=== PATIENT | male | born 1955 | race Caucasian/White ===

== ENCOUNTER 2022-12-15 09:39 | Day surgery (SDC) | payer MEDICARE, OTHER, SELFPAY ==
--- NOTE | 2022-12-15 08:56 | W.PM.PROCNOT ---
Date of procedure: 12/15/22 Procedure: Right Lateral cutaneous branch Iliohypogastric nerve injection, diagnostic Preop diagnosis includes pain secondary to neuritis of the Right Lateral cutaneous branch middle cluneal nerves Postop diagnosis same Performed under fluoroscopic guidance Immediate complications none Anesthesia: none Solution used for injection: In each syringe, 2 milliliters 0.25% Marcaine 2.5 mL is used for injection for each side Time out process compliant After informed consent obtained patient was brought to the procedure room placed in the prone position skin overlying the area was prepped and draped in a sterile fashion using betadine. 25 gauge spinal needle Insert over each of the target areas identified in fluoroscopy corresponding needles were advanced Under fluoroscopic guidance until the target/targets encountered , no indication of intravascular or Intraneuronal needle tip placement. Solution injected .needles removed post procedurally. patient transferred to recovery room in stable condition to be discharged home after meeting criteria Surgeon: Agnieszka Ayoub
[2022-12-15] MEDS: BUPIVACAINE HCL 0.25% PF 25 MG/10 ML VIAL 4 ML INJ (11:05)
[2022-12-15 11:06] VITALS: BP 149/79; PULSE 84; RESP 20; O2SAT 96
[2022-12-15 11:07] VITALS: BP 151/88; PULSE 77; RESP 20; O2SAT 97
== END 2022-12-15 11:11 | disposition home or self-care (01) ==
LOC: SURGOUT 09:39
PROVIDERS: PCP Internal Medicine; Visit Provider Anesthesiology Pain Medicine
DX: G57.81 Other specified mononeuropathies of right lower limb (principal)
CPT/HCPCS: 64425; 77002

== ENCOUNTER 2022-12-22 14:47 | Outpatient (RCR) | payer MEDICARE, OTHER, SELFPAY | END 2023-01-30 11:44 | disposition home or self-care (01) | LOC: PT 14:47 | PROVIDERS: PCP Internal Medicine | DX: M54.16 Radiculopathy, lumbar region (principal) | CPT/HCPCS: 97012; 97110; 97113; 97162 ==

== ENCOUNTER 2023-01-07 08:05 | Outpatient (OUT) | payer MEDICARE, OTHER, SELFPAY ==
--- NOTE | 2023-01-07 08:33 | PM.CN ---
Consult Note: HPI Data of Consult Patient: known to practice within the last 3 years Consult date: 01/07/23 Requesting Physician: LATRICIA VOGEL NP Primary Care Provider: JOHNATHAN LÓPEZ Consult Narrative Narrative: Here for f/u of right LCIH injection done 12/15/22. He received 80% relief of pain for several hours after procedure. He would like to possibly proceed with RFA of same area. He has appointment with spine surgeon next week and would like to speak with him before proceeding with RFA. No radicular sx. He does have f/u with neurospine scheduled. No new sensorimotor or bowel or bladder issues. He feels he has bad circulation to his feet. Will give referral to cardiology for ISABELLA testing. cc:: CC: LATRICIA VOGEL NP Review of Systems ROS Status of ROS 10 or more systems reviewed and unremarkable except as noted in history and below Musculoskeletal Reports: back pain and joint pain PFSH PFS Medical History Surgical History Meds Home Medications and Allergies Home Medications Medication Instructions Recorded Confirmed Type ascorbic acid (vitamin C) 500 mg 500 mg PO DAILY 12/10/22 12/15/22 History tablet (C-500) bee pollen 550 mg capsule mg PO .QD 12/10/22 History carvedilol 6.25 mg tablet 6.25 mg PO BID 12/10/22 12/15/22 History cholecalciferol (vitamin D3) 10 10 mcg PO DAILY 12/10/22 12/15/22 History mcg (400 unit) capsule (Vitamin D3) finasteride 5 mg tablet 5 mg PO .QD 12/10/22 12/15/22 History hydrocodone 5 mg-acetaminophen 325 1 tab PO QID PRN pain 12/10/22 12/15/22 History mg tablet mecobalamin (vitamin B12) 1,000 1,000 mcg PO DAILY 12/10/22 12/15/22 History mcg chewable tablet (B12 Active) meloxicam 15 mg tablet 15 mg PO .QD 12/10/22 12/15/22 History multivitamin 1 tab PO DAILY 12/10/22 12/15/22 History sildenafil 100 mg tablet (Viagra) 100 mg PO DAILY PRN sexual activity 12/10/22 12/15/22 History solifenacin 10 mg tablet 10 mg PO DAILY 12/10/22 12/15/22 History tamsulosin 0.4 mg capsule 0.4 mg PO Q24H 12/10/22 12/15/22 History tizanidine 4 mg capsule 4 mg PO .HS PRN muscle spasticity 12/10/22 12/15/22 History vitamin B complex (Complex B-100 1 tab PO DAILY 12/10/22 12/15/22 History tablet,extended release) zinc 50 mg tablet 50 mg PO DAILY 12/10/22 12/15/22 History Allergies Allergy/AdvReac Type Severity Reaction Status Date / Time No Known Drug Allergies Allergy Verified 12/15/22 10:11 Exam Constitutional Documenting provider has reviewed patient's vital signs: yes Common normals: no apparent distress, oriented x3, healthy appearing, alert and well nourished Orientation/consciousness: Yes awake, Yes oriented to person, Yes oriented to place and Yes oriented to time HENMT Common normals: normocephalic, nasal mucous membranes and turbinates normal and moist oral mucous membranes Respiratory Common normals: normal respiratory effort, no retractions and no use of accessory muscles Effort & inspection: able to speak in complete sentences and symmetric chest movement Back & Pelvis Lumbar spine/lower back: normal to inspection, ROM limited and pain with ROM Extremity Common normals: normal to inspection, full ROM, normal capillary refill and no pedal edema Other: SI pain with positive thigh thrust, gaenslens Assessment and Plan Assessment and Plan (1) Sacroiliac joint pain: (2) Lumbar spondylosis: Plan He will call to schedule LCIH RFA if wanted F/U with neurospine as scheduled cardiology referral for ABIs
== END 2023-01-07 08:06 | disposition home or self-care (01) ==
LOC: PM 08:06
PROVIDERS: PCP Internal Medicine; Visit Provider Nurse Practitioner
DX: M53.3 Sacrococcygeal disorders, not elsewhere classified (principal); M47.816 Spondylosis without myelopathy or radiculopathy, lumbar region
CPT/HCPCS: G0463

== ENCOUNTER 2023-03-02 07:48 | Day surgery (SDC) | payer MEDICARE, OTHER, SELFPAY ==
[2023-03-02 08:20] VITALS: BP 122/78; PULSE 83; RESP 16; TEMP 36.8; O2SAT 95
[2023-03-02 09:08] VITALS: BP 131/68; PULSE 80; RESP 18; O2SAT 94
[2023-03-02] MEDS: BUPIVACAINE HCL 0.25% PF 25 MG/10 ML VIAL INJ (09:12)
[2023-03-02] MEDS: LIDOCAINE HCL 2% 400 MG/20 ML MDV 15 ML INJ (09:12)
[2023-03-02] MEDS: METHYLPREDNISOLONE ACETATE 40 MG/ML VIAL INJ (09:13)
[2023-03-02 09:14] VITALS: BP 126/66; PULSE 82; RESP 18; O2SAT 95
--- NOTE | 2023-03-02 10:18 | W.PM.PROCNOT ---
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 Post lesioning injection of 2 mL each of 0.25% Marcaine and 2% lidocaine with Depo-Medrol 40mg. 0.5 to 1 mL injected at each site Anesthesia local 2% lidocaine for Timeout process compliant After informed consent obtained. Patient brought to the procedure room placed in the prone position skin overlying the area was prepped and draped in a sterile fashion using betadine. 25 gauge needle was used to create a skin wheal over each of the targeted areas utilizing 2% lidocaine. A rhizotomy needle with a 10 mm active tip was inserted over each of the anesthetized areas and directed towards four different areas in the distribution of the lateral cutaneous branches of the iliohypogastric nerve, accomplished under fluoroscopic guidance. After encountering the same we had positive sensory stimulation, negative motor stimulation was noted. lesions were then created. Post lesioning, steroid solution was injected needles removed. Patient was transferred to recovery room in stable condition to be discharged home after meeting criteria. Anesthesia: Local Surgeon: Agnieszka Ayoub Condition: stable
== END 2023-03-02 09:31 | disposition home or self-care (01) ==
PROVIDERS: PCP Internal Medicine; Visit Provider Anesthesiology Pain Medicine
DX: G57.81 Other specified mononeuropathies of right lower limb (principal)
CPT/HCPCS: 64640; 77002; J1030

== ENCOUNTER 2023-03-16 08:36 | Day surgery (SDC) | payer MEDICARE, OTHER, SELFPAY ==
[2023-03-16 09:24] VITALS: BP 160/88; PULSE 91; RESP 16; TEMP 36.9; O2SAT 96
[2023-03-16] MEDS: IOHEXOL 240 MG/ML - 10 ML VIAL INJ (10:35)
[2023-03-16] MEDS: BUPIVACAINE HCL 0.25% PF 25 MG/10 ML VIAL INJ (10:35)
[2023-03-16] MEDS: 0.9 % SODIUM CHLORIDE 10 ML SYRINGE - SALINE FLUSH INJ (10:35)
[2023-03-16] MEDS: LIDOCAINE HCL 2% PF 100 MG/5 ML VIAL INJ (10:36)
[2023-03-16] MEDS: METHYLPREDNISOLONE ACETATE 40 MG/ML VIAL INJ (10:36)
[2023-03-16 11:14] VITALS: BP 136/78; BP 146/76; PULSE 76; PULSE 78; RESP 20; O2SAT 95; O2SAT 97
--- NOTE | 2023-03-16 11:22 | W.PM.PROCNOT ---
Date of procedure: 03/16/23 Pre-op diagnosis: Hip Osteoarthritis Post-op diagnosis: same as pre-op Procedure: Procedure: Right Hip joint injection Pre & postoperative diagnosis: pain secondary to osteoarthritis. Immediate complications none. Anesthesia: 2% lidocaine plain for skin wheal. After informed consent was obtained, patient brought to the OR placed in the supine position. Skin overlying the area was prepped and draped using betadine. 25-gauge 1/2 inch needle was used for skin wheal over the medial aspect of the joint identified under fluoroscopy. Omnipaque dye was used to confirm needle tip placement within the hip joint space 0.5 mL use of the injection. Subsequently Depomedrol 40mg and Marcaine 0.25% 4ml was injected into the space. No indication of intravascular or intraneuronal needle tip placement or injection was noted post procedure. The needle was removed, patient transferred to Recovery room in stable condition to discharged home after meeting criteria. Anesthesia: Local Surgeon: Agnieszka Ayoub Condition: stable
== END 2023-03-16 10:40 | disposition home or self-care (01) ==
LOC: SURGOUT 08:36
PROVIDERS: PCP Internal Medicine; Visit Provider Anesthesiology Pain Medicine
DX: M16.11 Unilateral primary osteoarthritis, right hip (principal)
CPT/HCPCS: 20610; 77002; J1030; Q9966

== ENCOUNTER 2023-04-14 08:15 | Outpatient (OUT) | payer MEDICARE, OTHER, SELFPAY ==
--- NOTE | 2023-04-14 08:38 | PM.CN ---
Consult Note: HPI Data of Consult Patient: known to practice within the last 3 years Requesting Physician: Kath Steiner NP Primary Care Provider: JOHNATHAN LÓPEZ Consult Narrative Reason for consult: F/u Narrative: Lawson Vela a pleasant 68 year old male presents for evaluation and management of Recently under went right Lateral cutaneous iliohypogastric nerve Radiofrequency ablation and right hip injection, reports Today rating pain /10 cc:: CC: Kath Steiner NP Review of Systems ROS Status of ROS 10 or more systems reviewed and unremarkable except as noted in history and below Musculoskeletal Reports: joint pain PFSH PFSH Medical History Surgical History Hx of appendectomy ?Z90.49 - Acquired absence of other specified parts of digestive tract (ICD-10) Meds Home Medications and Allergies Home Medications Medication Instructions Recorded Confirmed Type ascorbic acid (vitamin C) 500 mg 500 mg PO DAILY 12/10/22 03/16/23 History tablet (C-500) bee pollen 550 mg capsule mg PO .QD 12/10/22 History carvedilol 6.25 mg tablet 6.25 mg PO BID 12/10/22 03/16/23 History cholecalciferol (vitamin D3) 10 10 mcg PO DAILY 12/10/22 03/16/23 History mcg (400 unit) capsule (Vitamin D3) finasteride 5 mg tablet 5 mg PO .QD 12/10/22 03/16/23 History hydrocodone 5 mg-acetaminophen 325 1 tab PO QID PRN pain 12/10/22 03/16/23 History mg tablet mecobalamin (vitamin B12) 1,000 1,000 mcg PO DAILY 12/10/22 03/16/23 History mcg chewable tablet (B12 Active) meloxicam 15 mg tablet 15 mg PO .QD 12/10/22 03/16/23 History multivitamin 1 tab PO DAILY 12/10/22 03/16/23 History sildenafil 100 mg tablet (Viagra) 100 mg PO DAILY PRN sexual activity 12/10/22 03/16/23 History solifenacin 10 mg tablet 10 mg PO DAILY 12/10/22 03/16/23 History tamsulosin 0.4 mg capsule 0.4 mg PO Q24H 12/10/22 03/16/23 History tizanidine 4 mg capsule 4 mg PO .HS PRN muscle spasticity 12/10/22 03/16/23 History vitamin B complex (Complex B-100 1 tab PO DAILY 12/10/22 03/16/23 History tablet,extended release) zinc 50 mg tablet 50 mg PO DAILY 12/10/22 03/16/23 History Allergies Allergy/AdvReac Type Severity Reaction Status Date / Time No Known Drug Allergies Allergy Verified 03/16/23 09:27 Exam Constitutional Documenting provider has reviewed patient's vital signs: yes Common normals: no apparent distress, oriented x3, healthy appearing, alert and well nourished General appearance: cooperative HENMT Common normals: normocephalic, hearing grossly normal bilaterally and moist oral mucous membranes Head and scalp: normocephalic Eye Common normals: PERRL Pupil: PERRL Neck & C-Spine Common normals: full ROM General: normal visual inspection Chest Common normals: inspection of chest normal Respiratory Common normals: normal respiratory effort, no retractions and no use of accessory muscles Neuro Common normals: oriented x3, CN's II-XII intact bilaterally, moves all extremities, no focal motor deficits, no sensory deficits noted and deep tendon reflexes 2+ bilaterally Sensorium/orientation: alert Motor exam: strength 5/5 throughout and no movement abnormalities noted Psych Common normals: mental status grossly normal, thought process normal, cooperative, affect normal, speech normal and activity/motor behavior normal Speech: normal speech Thought process: normal thought process Results Additional Findings Additional findings: I have checked an [place] report on this patient today and there are no aberrancies noted in the prescribing history.?? A drug screen was completed and reviewed within the last year, and if there has not been a drug screen completed we ordered one today to monitor higher risk, state monitored pain medication use. As part of providing excellent, safe, comprehensive care, the following was completed at our patient's visit: 1. A medication reconciliation and review to ensure accurate knowledge of current/active medications, including asking our patients to inform us about any [id number] medications or herbal remedies/nutritional supplements/alternative remedies. 2. A review to specifically ensure our patients have had annual screening for: elevated body mass index (BMI), tobacco use, screening for depression, and screening for unhealthy alcohol use. When screening is concerning, patients are provided with education and the specific recommendation to discuss the concerning health issue and treatment options with their primary care provider. Assessment and Plan Assessment and Plan (1) Lumbar spondylosis: (2) Sacroiliac joint pain: (3) Right hip pain: (4) Osteoarthritis: (5) Low back pain:
--- NOTE | 2023-04-14 09:03 | P.CN_ITS ---
Consult Note: HPI Data of Consult Patient: known to practice within the last 3 years Requesting Physician: Kath Steiner NP Primary Care Provider: JOHNATHAN LÓPEZ Consult Narrative Reason for consult: f/u Narrative: Lawson martin a pleasant 68 year old male presents for evaluation of chronic low back, right buttock and right leg pain. Today rating pain 2/10. Reports 10% improvement in pain and functional ability after right LCIH RFA and right hip injection. Patient has been following with Neurosurgery Dr Anand and [facility], pending appointment with Orthopedics for right hip pain. cc:: CC: Kath Steiner NP [facility] Medical History Surgical History Hx of appendectomy ?Z90.49 - Acquired absence of other specified parts of digestive tract (ICD- 10) Meds Home Medications and Allergies Home Medications Medication Instructions Recorded Confirmed Type ascorbic acid (vitamin C) 500 mg 500 mg PO DAILY 12/10/22 03/16/23 History tablet (C-500) bee pollen 550 mg capsule mg PO .QD 12/10/22 History carvedilol 6.25 mg tablet 6.25 mg PO BID 12/10/22 03/16/23 History cholecalciferol (vitamin D3) 10 10 mcg PO DAILY 12/10/22 03/16/23 History mcg (400 unit) capsule (Vitamin D3) finasteride 5 mg tablet 5 mg PO .QD 12/10/22 03/16/23 History hydrocodone 5 mg-acetaminophen 325 1 tab PO QID PRN pain 12/10/22 03/16/23 History mg tablet mecobalamin (vitamin B12) 1,000 1,000 mcg PO DAILY 12/10/22 03/16/23 History mcg chewable tablet (B12 Active) meloxicam 15 mg tablet 15 mg PO .QD 12/10/22 03/16/23 History multivitamin 1 tab PO DAILY 12/10/22 03/16/23 History sildenafil 100 mg tablet (Viagra) 100 mg PO DAILY PRN sexual activity 12/10/22 03/16/23 History solifenacin 10 mg tablet 10 mg PO DAILY 12/10/22 03/16/23 History tamsulosin 0.4 mg capsule 0.4 mg PO Q24H 12/10/22 03/16/23 History tizanidine 4 mg capsule 4 mg PO .HS PRN muscle spasticity 12/10/22 03/16/23 History vitamin B complex (Complex B-100 1 tab PO DAILY 12/10/22 03/16/23 History tablet,extended release) zinc 50 mg tablet 50 mg PO DAILY 12/10/22 03/16/23 History Allergies Allergy/AdvReac Type Severity Reaction Status Date / Time No Known Drug Allergies Allergy Verified 03/16/23 09:27 Exam Constitutional Documenting provider has reviewed patient's vital signs: yes Common normals: no apparent distress, oriented x3, healthy appearing, alert and well nourished General appearance: cooperative Nutritional appearance: obese HENMT Common normals: normocephalic, hearing grossly normal bilaterally and moist oral mucous membranes Head and scalp: normocephalic Eye Common normals: PERRL Pupil: PERRL Neck & C-Spine Common normals: full ROM General: normal visual inspection Chest Common normals: inspection of chest normal Respiratory Common normals: normal respiratory effort, no retractions and no use of accessory muscles Back & Pelvis Thoracic spine/upper back: ROM limited and pain with ROM Lumbar spine/lower back: ROM limited and pain with ROM Sacroiliac joints: SI joint(s) abnormal (pain over left SIJ) Other: radiculopathy or neuritis to right thigh following L2,3,4 pattern. Extremity Common normals: normal to inspection and full ROM Right lower extremity: hip joint Other: right hip pain with external rotation and thigh thrust, tenderness over IT band mild non pitting edema to right foot and lower leg, chronic rust color to BLE. pulses equal bilaterally. denies symptoms if IC Neuro Common normals: oriented x3, CN's II-XII intact bilaterally, moves all extremities, no focal motor deficits, no sensory deficits noted and deep tendon reflexes 2+ bilaterally Sensorium/orientation: alert Motor exam: strength 5/5 throughout and no movement abnormalities noted Psych Common normals: mental status grossly normal, thought process normal, cooperative, affect normal, speech normal and activity/motor behavior normal Speech: normal speech Thought process: normal thought process Assessment and Plan Assessment and Plan (1) Lumbar spondylosis: (2) Sacroiliac joint pain: (3) Right hip pain: (4) Osteoarthritis: (5) Low back pain: Plan -unfortunately patient reports 10% pain relief in right buttock and right hip after right LCIH RFA and right hip injection, based on physical exam patient does have a hip component and will benefit from orthopedic evaluation. -consider repeat lumbar JEN in the future if not pursuing spinal surgery, at this time patient may have a fusion in May with [facility] -continue f/u with NS and orthopedics for right hip -continue medication management through PCP, declining additional medications at this time -f/u 3 months, sooner if needed
== END 2023-04-14 08:16 | disposition home or self-care (01) ==
LOC: PM 08:15
PROVIDERS: PCP Internal Medicine; Visit Provider Nurse Practitioner
DX: M47.816 Spondylosis without myelopathy or radiculopathy, lumbar region (principal); M25.551 Pain in right hip; M54.50 Low back pain, unspecified; M19.90 Unspecified osteoarthritis, unspecified site; M53.3 Sacrococcygeal disorders, not elsewhere classified
CPT/HCPCS: G0463

== ENCOUNTER 2023-06-26 12:24 | Emergency (ER) | payer MEDICARE, OTHER, SELFPAY ==
[2023-06-26 12:32] VITALS: BP 156/99; PULSE 96; RESP 18; TEMP 36.8; O2SAT 97; BMI 25.7
--- NOTE | 2023-06-26 12:39 | XR_ITS ---
The [address] [address] Patient Name: CANDACE WILKS MRN: [id number] date: 1955 Sex: M Assigned Patient Location: ER Current Patient Location: ER Accession/Order Number: [id number] Exam Date: 06/26/2023 13:10 Report Date: 06/26/2023 14:30 At the request of: HEATH JOHANSEN Procedure: XR finger LT min 2V EXAM: XR finger LT min 2V HISTORY: Crush injury COMPARISON: None. TECHNIQUE: 3 cone-down views of the left hand, third digit. FINDINGS: Bandage material is seen along the third digit with localized soft tissue swelling at the level of the DIP joint. No acute fracture is identified. No radiopaque foreign body is seen. XR/XR finger LT min 2V IMPRESSION: 1. No acute osseous variation identified. 2. No radiopaque foreign body. Electronically authenticated by: SARAHY ROSA Date: 06/26/2023 14:30
--- OUTSIDE RECORDS SUMMARY | 2023-06-26 13:24 | XMS_ITS | CCD ---
Author Name Unknown Address [address] [place] [address] Organization [facility] Care Team Providers Care Lumber Marker Name Role Phone JAVAD DONATO Primary Care Physician MARINE ., DR ANTIONE Fletcher Admitting Unavailable HAWTHORNE ., DR ANTIONE Fletcher Consulting Unavailable MARIBEL, DR MANN Primary Care Unavailable HAWTHORNE ., DR ANTIONE Fletcher Attending Unavailable GUERRA ., MELISSA Consulting Unavailable HAWTHORNE ., DR ANTIONE Fletcher Attending Unavailable HAWTHORNE ., DR ANTIONE Fletcher Admitting Unavailable HAWTHORNE ., DR ANTIONE Fletcher Consulting Unavailable MARIBEL, DR MANN Primary Care Unavailable HAWTHORNE ., DR ANTIONE Fletcher Attending Unavailable HAWTHORNE ., DR ANTIONE Fletcher Admitting Unavailable HAWTHORNE ., DR ANTIONE Fletcher Consulting Unavailable MARIBEL, DR MANN Primary Care Unavailable HAWTHORNE ., DR ANTIONE Fletcher Attending Unavailable HAWTHORNE ., DR ANTIONE Fletcher Admitting Unavailable HAWTHORNE ., DR ANTIONE Fletcher Consulting Unavailable MARIBEL, DR MANN Primary Care Unavailable HAWTHORNE ., DR ANTIONE Fletcher Attending Unavailable HAWTHORNE ., DR ANTIONE Fletcher Admitting Unavailable MARIBEL, DR MANN Primary Care Unavailable GUERRA ., MELISSA Consulting Unavailable HAWTHORNE ., DR ANTIONE Fletcher Attending Unavailable HAWTHORNE ., DR ANTIONE Fletcher Admitting Unavailable GUERRA ., MELISSA Consulting Unavailable MARIBEL, DR MANN Primary Care Unavailable HAWTHORNE ., DR ANTIONE Fletcher Attending Unavailable HAWTHORNE ., DR ANTIONE Fletcher Admitting Unavailable HAWTHORNE ., DR ANTIONE Fletcher Consulting Unavailable MARIBEL, DR MANN Primary Care Unavailable MARIBEL, DR MANN Primary Care Unavailable MARIBEL, DR MANN Attending Unavailable MARIBEL, DR MANN Admitting Unavailable LAKSHMIPATHY ., JUN Attending Peyton vailable MARIBEL, DR MANN Primary Care Unavailable RA, DR DEVIN Novak Consulting Unavailable LAKSHMIPATHY ., JUN Admitting Peyton vailable LAKSHMIPATHY ., NARENDRANATH Consulting Peyton vailable HAWTHORNE ., DR ANTIONE Fletcher Admitting Unavailable HAWTHORNE ., DR ANTIONE lFetcher Consulting Unavailable HAWTHORNE ., DR ANTIONE Fletcher Attending Unavailable MARIBEL, DR MANN Primary Care Unavailable HAWTHORNE ., DR ANTIONE Fletcher Attending Unavailable HAWTHORNE ., DR ANTIONE Fletcher Admitting Unavailable HAWTHORNE ., DR ANTIONE Fletcher Consulting Unavailable MARIBEL, DR MANN Primary Care Unavailable LAKSHMIPATHY ., NARENDRANPRASHANT Consulting Peyton vailable LAKSHMIPATHY ., NARSALLYATH Attending Peyton vailable LAKSHMIPATHY ., NARSALLYATH Admitting Peyton vailable MARIBEL, DR MANN Primary Care Unavailable LAKSHMIPATHY ., JUN Consulting Peyton vailable LAKSHMIPATHY ., JUN Attending Peyton vailable MARIBEL, DR MANN Primary Care Unavailable LAKSHMIPATHY ., NARENDDERIANATH Admitting Peyton vailable LAKSHMIPATHY ., NARENDDERIANATH Admitting Peyton vailable LAKSHMIPATHY ., NARSALLYATH Consulting Peyton vailable LAKSHMIPATHY ., JUN Attending Peyton vailable MARIBEL, DR MANN Primary Care Unavailable HAWTHORNE ., DR ANTIONE Fletcher Attending Unavailable HAWTHORNE ., DR ANTIONE Fletcher Admitting Unavailable HAWTHORNE ., DR ANTIONE Fletcher Consulting Unavailable MARIBEL, DR MANN Primary Care Unavailable JAVAD SAINI Consulting Unavailable CAMILLE BAILEY Consulting Unavailable Erica Xiong Unavailable SIMNOA Donato Primary Care Provider ANGELA Xiong Attending Provider Erica Xiong Admitting Unavailable Erica Xiong Attending Unavailable Javad Donato Primary Care Unavailable Mac BOYER Attending Unavailable Mac BOYER Attending Unavailable Mac BOYER Attending Unavailable Unavailable Primary Care Provider UnavailLAILA Cardenas Attending Unavailable JAVAD DONATO Attending Unavailable CLAUDINE HOUSE Attending Unavailable CHARISSA ARRINGTON Referring Unavailable CHARISSA ARRINGTON Attending Unavailable CHARISSA ARRINGTON Referring Unavailable Medications Current Medications Medication Drug Class(es) Dates Sig (Normalized) Sig (Original) Ascorbic Acid (2 sources) Vitamin C Start: 02-16-2022 Vitamin C Daily, Refills(s) 0 Start Date: 02/16/22 Status: Ordered betamethasone 0.5 mg/ml / clotrimazole 10 mg/ml topical cream (2 sources) Azole Antifungal, Corticosteroid Start: 06-14-2020 Lotrisone 0.05%-1% Cream Topical, BID, Refill(s) 0 Start Date: 06/14/20 Status: Ordered clindamycin 300 mg oral capsule (2 sources) Lincosamide Antibacterial Start: 12-17-2016 take 2 capsules by mouth every eight hours Start: 12-17-2016 take 2 capsules by mouth every eight hours Diflucan (2 sources) Azole Antifungal Start: 06-14-2020 Diflucan Refi lls(s) 0 Start Date: 06/14/20 Status: Ordered lidocaine 0.05 mg/mg medicated patch (2 sources) Antiarrhythmic, Amide Local Anesthetic Start: 12-17-2022 Start: 12-17-2022 Lidocaine 5 % 1 patch remove after 12 hours Externally Once a day for 30 days Nov, Active meloxicam 15 mg oral tablet (5 sources) Nonsteroidal Anti-inflammatory Drug Start: 06-14-2020 take 1 mg by mouth once daily meloxicam 15 mg oral tablet mg tab(s), Oral, Daily, Refills(s) 0 Start Date: 06/14/20 Status: Ordered meloxicam (MOBIC ) 7.5 mg tablet Take 7.5 mg by mouth. 0 Active Comment on above: Take 7.5 mg by mouth . Multi Vitamin+ (2 sources) Start: 02-16-2022 Multi Vitamin+ Refill(s) 0 Start Date: 02/16/22 Status: Ordered predniSONE 10 mg oral tablet (2 sources) Start: 12-17-2022 Start: 12-17-2022 predniSONE 10 MG Take 3 tablets by mouth for 3 days then 2 tablets by mouth for 3 days then 1 tablet by mouth for 3 days Orally Once a day for 9 Nov, Active sildenafil 100 mg oral tablet (2 sources) Phosphodiesterase 5 Inhibitor take 1 tablet by mouth every twenty-four hours solifenacin succinate 10 mg oral tablet (5 sources) Cholinergic Muscarinic Antagonist Start: 09-30-2022 take 1 tablet by mouth every twenty-four hours Start: 11-25-2021 take 1 tablet by yvon once daily Vesicare 10 mg Tab 10 mg = 1 tab(s), Oral, Daily, # 30 tab(s), Refills(s) 9, Pharmacy: [facility] [id number], 186, cm, 08/18/21 11:16:00 EST, Height/Length Dosing, 122, kg, 08/18/21 11:16:00 EST, Weight Dosing Start Date: 11/25/21 Status: Ordered Comment on above: 1 (one) time each da y at the same time. vitamin B12 (2 sources) Vitamin B12 Start: 02-16-2022 Vitamin B12 Refills(s) 0 Start Date: 02/16/22 Status: Ordered Zinc (2 sources) Start: 02-16-2022 take 1 mg by mouth once daily Zinc mg, Oral, Daily, Refills(s) 0 Start Date: 02/16/22 Status: Ordered Completed/Discontinued Medications Medication Drug Class(es) Dates Sig (Normalized) Sig (Original) acetaminophen 325 mg / HYDROcodone bitartrate 5 mg oral tablet (3 sources) Opioid Agonist HYDROcodone-acet aminop hen (NORCO) 5-325 mg per tablet take 1 tablet by mouth every six hours take 1 tablet by mouth every six hours HYDROcodone-Acetaminophen 5-325 MG 1 tablet as needed Orally every 6 hrs Active cefTRIAXone (1 source) Cephalosporin Antibacterial Start: 12-17-2016 Rocephin 500 mg Nov, 500 mg finasteride 5 mg oral tablet (5 sources) 5-alpha Reductase Inhibitor Start: 06-24-2021 finasteride (PROSCAR) 5 mg tablet Take 5 mg by mouth. 0 07/29/2022 Active Comment on above: Take 5 mg by mouth. hydroCHLOROthiazide 12.5 mg / irbesartan 150 mg oral tablet (3 sources) Thiazide Diuretic, Angiotensin 2 Receptor Becca Start: 02-08-2023 Irbesartan-hydroCH LOROthiazide 150-12.5 mg per tablet Take by mouth. 0 02/08/2023 Active take 1 tablet by yvon th every twenty-four hours take 1 tablet by yvon th every twenty-four hours Irbesartan-hydroCHLOROthiazide 150-12.5 MG 1 tablet Orally Once a day Active Comment on above: Take by mouth. silver sulfADIAZINE 10 mg/ml topical cream (2 sources) Sulfonamide Antibacterial Start: 12-17-2016 Start: 12-17-2016 Silvadene 1 % 1 application to affected area Externally Once a day Nov, Not-Taking tadalafil 20 mg oral tablet (2 sources) Phosphodiesterase 5 Inhibitor Start: 06-17-2020 take 1 tablet by mouth every hour Cialis 20 mg Tab 20 mg = 1 tab(s), Oral, As Directed, take 1 tab i hour prior to sexual activity, # 30 tab(s), Refills(s) 3, Pharmacy: [id number], 186, cm, 06/17/20 14:49:00 EST, Height/Length Dosing, 122, kg, 06/17/20 14:49:00 EST, Weight Dosing Start Date: 06/17/20 Status: Ordered tamsulosin hydrochloride 0.4 mg oral capsule (5 sources) alpha-Adrenergic Becca Start: 06-30-2021 tamsulosin (FLOMAX) 0.4 mg Take 0.4 mg by mouth. 0 07/29/2022 Active Comment on above: Take 0.4 mg by mouth . tiZANidine 4 mg oral tablet (3 sources) Central alpha-2 Adrenergic Agonist Start: 04-03-2022 tiZANidine (ZANAFLEX) 4 mg tablet 1 tablet as needed Orally at bedtime for 30 days 0 04/03/2022 Active Comment on above: 1 tablet as needed O rally at bedtime for 30 days Problems Active Problems Problem Classification Problem Date Documented Date Episodic/Chronic Disorders of lipid metabolism (2 sources) Hyperlipidemia 06-17-2020 Chronic Essential hypertension (3 sources) Hypertensive disorder; Translations: [Essential (primary) hypertension] Onset: 08-13-2022 06-17-2020 Chronic Genitourinary symptoms and ill-defined conditions (6 sources) Urge incontinence; Translations: [Post-micturition incontinence ] Onset: 02-16-2022 Chronic Genitourinary symptoms and ill-defined conditions (4 sources) Increased frequency of urination; Translations: [Nocturia] 06-17-2020 Episodic Gout and other crystal arthropathies (2 sources) Gout 06-17-2020 Chronic Headache; including migraine (2 sources) Headache 06-17-2020 Episodic Hyperplasia of prostate (4 sources) Benign prostatic hypertrophy with outflow obstruction; Translations: [Benign prostatic hyperplasia with lower urinary tract symptoms] Onset: 02-16-2022 Chronic Osteoarthritis (5 sources) Arthritis; Translations: [Bilateral primary osteoarthritis of hip] Onset: 11-16-2022 06-17-2020 Chronic Other connective tissue disease (6 sources) Pain in right leg; Translations: [PAIN IN RIGHT LEG] Onset: 10-08-2022 Episodic Other injuries and conditions due to external causes (2 sources) Injury of head 06-17-2020 Episodic Other male genital disorders (4 sources) Male erectile dysfunction, unspecified; Translations: [Erectile dysfunction] Onset: 02-16-2022 Chronic Other nervous system disorders (5 sources) Other chronic pain; Translations: [OTHER CHRONIC PAIN] Onset: 10-14-2022 Chronic Other non-traumatic joint disorders (5 sources) Pain in left hip; Translations: [PAIN IN LEFT HIP] Onset: 11-13-2022 Episodic Other non-traumatic joint disorders (1 source) Pain in right hip; Translations: [PAIN IN RIGHT HIP] Onset: 11-25-2022 Episodic Other nutritional; endocrine; and metabolic disorders (1 source) Obese class II; Translations: [Body mass index (BMI) 35.0-35.9, adult] Onset: 02-16-2022 Chronic Other nutritional; endocrine; and metabolic disorders (4 sources) Body mass index 30+ - obesity; Translations: [Body mass index (BMI) 38.0-38.9, adult] 02-16-2022 Chronic Other nutritional; endocrine; and metabolic disorders (2 sources) Body mass index (BMI) 38.0-38.9, adult Chronic Screening and history of mental health and substance abuse codes (2 sources) Encounter for screening for depression Episodic Spondylosis; intervertebral disc disorders; other back problems (10 sources) Spondylosis without myelopathy or radiculopathy, lumbar region; Translations: [Other intervertebral disc degeneration, lumbar region] Onset: 04-28-2022 Chronic Spondylosis; intervertebral disc disorders; other back problems (14 sources) Muscle spasm of back; Translations: [Radiculopathy, lumbar region] Onset: 05-01-2022 Episodic Unclassified (4 sources) LOW BACK PAIN, UNSPECIFIED; Translations: [LOW BACK PAIN, UNSPECIFIED] Onset: 07-27-2022 Unclassified (1 source) VERTEBROGENIC LOW BACK PAIN; Translations: [VERTEBROGENIC LOW BACK PAIN] Onset: 05-23-2022 Past or Other Problems Problem Classification Problem Date Documented Da te Episodic/Chronic Unclassified (1 source) LOW BACK PAIN, UNSPECIFIED; Translations: [LOW BACK PAIN, UNSPECIFIED] Onset: 07-23-2022 Results Test Name Value Interpretation Reference Range Facility OV 04-13-2023 CNOV Office Visit ([facility] ) -------- LAWSON VELA ([id number]) 1955 M DEF Date Time Provider Department 04/13/23 11:00 AM LAILA PAN [facility] During your visit today, we recorded the following information about you: Laila Pan PA-C 04/15/2023 1:53 PM Signed SPINE SURGERY OUTPATIENT CONSULT This is an in-person visit. SERVICE DATE: 04/13/2023 PCP: No primary care provider on file. REFERRING PROVIDER: SELF Consult requested for an opinion regarding the evaluation and treatment of lumbar spine. My final impression and recommendations will be communicated back to the requesting physician by way of the shared medical record or letter via US mail. SUBJECTIVE Lawson Vela is a 68 year old male presenting DIL. HISTORY OF PRESENT ILLNESS DURATION OF SYMPTOMS: . Industrial accident. No surgery, had injections and injections which helped. On and off since then. 14 months ago, he was leaning forward and felt sever back pain that was not resolved with normal techniques Patient reports low back pain described as aching to crampin in right low back. Radiation: Right buttocks- Right medial thigh Numbness/Tingling: no Weakness: Right hip flexors Gait Difficulty/LOB: yes Falling: Yes- LOB, feels like give out Loss of Bowel or Bladder: BPH, chronic concerns Smoking Status: No, quit smoking 1975 BMI: 33.51 PAIN EVALUATION 04/13/2023 0843 04/13/2023 1102 Pain Level: 3 3 Pain Location: Leg-Right Back-Lower down his right side behind his thigh Description: Stabbing Sharp;Throbbing;Aching;B urning Duration Amount of Time: 40 1 Duration Units: Months Years Frequency: Continuous Continuous gets worse when he walks or stands for long Intervention/Comfort measure: Medication;Reposition;Re laxation;Cold;Exercise;H eat;Massage;Pillow support;Positioning -- Comments: Pain management; steroid injections has been pain manegment but is not seeing any changes in the pain AMBULATORY STATUS: Independent Community Distances ANTIPLATELET OR ANTICOAGULATION STATUS: No PREVIOUS CONSERVATIVE TREATMENTS: See below Aquatic Therapy: 3 months ago which helped, will start it again. 3 days a week. 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 Injections: RFAs-helped with left leg Intraarticular hip injection-caused patient to jump off table, did reduce pain minimally PREVIOUS SPINAL SURGERY: None There is no problem list on file for this patient. No past medical history on file. PAST SURGICAL HISTORY Procedure Laterality Date APPENDECTOMY REVISE MEDIAN N/CARPAL TUNNEL SURG Right VASECTOMY No family history on file. Social History Tobacco Use Smoking status: Former Types: Cigarettes ALLERGIES No Known Allergies MEDICATIONS: tamsulosin (FLOMAX) 0.4 mg Take 0.4 mg by mouth. finasteride (PROSCAR) 5 mg tablet Take 5 mg by mouth. solifenacin 10 mg tablet 1 (one) time each day at the same time. tiZANidine (ZANAFLEX) 4 mg tablet 1 tablet as needed Orally at bedtime for 30 days Irbesartan-hydroCHLOROth iazide 150-12.5 mg per tablet Take by mouth. meloxicam (MOBIC) 7.5 mg tablet Take 7.5 mg by mouth. HYDROcodone-acetaminophe n (NORCO) 5-325 mg per tablet REVIEW OF SYSTEMS: Review of Systems Constitutional: Negative Eyes: Negative Hent: Negative Cardiovascular Positive for Lightheadedness and Leg pain with walking Negative for Chest Pain Respiratory Positive for SOB with exertion Negative for SOB at rest, Cough, Wheezing and Snoring GI: Negative Positive for Urgency and Incontinence Musculoskeletal Positive for Back Pain and Muscle Pain Neurologic Positive for Numbness/Tingling and Weakness Patient's Review of Systems has been reviewed with the patient and updated as appropriate. Patient Entered Questionnaires Spine Questions 04/13/2023 Pain Location: Leg Pain Duration: More than 5 years Pain over last 6 months: Every day or nearly every day in the past 6 months Symptoms from neck/cervical spine: No Employment Status: Retired Involved in law suit/legal claim: No PROMIS Score Percentiles Physical Health 04/13/2023 Physical Function Percentile 8 Sleep Percentile 8 Fatigue Percentile 1 Pain Interference Percentile 2 PROMIS SOCIAL ROLE SCORE 04/13/2023 Social Role Satisfaction Percentile 4 PROMIS Global Health Scale 04/13/2023 Physical Health Percentile 2 Mental Health Percentile 13 Percentiles provide an indication of how the patient's score ranks in relation to the general population. Higher percentile rankings indicate better function/quality of life. 50th percentile is the average of the general population and indicates half of respondents had a worse score. Depression Screening: PHQ-9 04/13/2023 Score 2 PHQ-9 Self-harm Question 1 (more content not included)... [facility] Ambulatory Visit Summaryon 0 02-08-2023 Ambulatory Visit Summary LAWSON VELA :1955 Visit Date:02/08/2023 Ambulatory Visit Instructions Your Diagnosis Urge incontinence BPH with urinary obstruction ED (erectile dysfunction) Tests Performed Urnls Dip Stick Auto w/o Microscopy POC [id number] Your Care Team Attending Physician - PAMELA BAER, Mac Stephenson Primary Care Physician - MARIBEL BAER, JAVAD Jiménez This Is Your Medications List finasteride (finasteride 5 mg Tab) solifenacin (Vesicare 10 mg Tab) tadalafil (Cialis 20 mg Tab) tamsulosin (tamsulosin 0.4 mg Cap) Contact prescribing physician if questions or concerns ascorbic acid (Vitamin C) betamethasone-clotrimazo le topical (Lotrisone 0.05%-1% Cream) cyanocobalamin (Vitamin B12) fluconazole (Diflucan) hydrochlorothiazide-irbe sartan (hydrochlorothiazide-irb esartan 12.5 mg-150 mg Tab) meloxicam (meloxicam 15 mg oral tablet) multivitamin (Multi Vitamin+) zinc sulfate (Zinc) Procedures Performed Urodynamics (04/22/2021), Cystoscopy (11/26/2020), Vasectomy (2009), Appendectomy (1966), Carpal tunnel, Colonoscopy. Discharge Vitals Heart Rate (Peripheral) 95 Blood Pressure 139/90 Height 186 cm Height 73 in Weight 129 kg Weight 283.8 lb BMI 37.29 What to do next You Need to Schedule the Following Appointments Follow Up with PAMELA BAER, FEROZ Lopez When: Comments: PRN Where: [facility] [address], [place] [address] [id number] Medications What How Much When Instructions Unchanged finasteride (finasteride 5 mg Tab) 1 Tablets By Mouth Every day Unchanged solifenacin (Vesicare 10 mg Tab) 1 Tablets By Mouth Every day Unchanged tadalafil (Cialis 20 mg Tab) 1 Tablets By Mouth As Directed take 1 tab i hour prior to sexual activity Unchanged tamsulosin (tamsulosin 0.4 mg Cap) 1 Capsules By Mouth 2 times a day Unchanged ascorbic acid (Vitamin C) Every day Contact prescribing physician if questions or concerns Unchanged betamethasone-clotrimazo le topical (Lotrisone 0.05%-1% Cream) Topical 2 times a day Contact prescribing physician if questions or concerns Unchanged cyanocobalamin (Vitamin B12) Contact prescribing physician if questions or concerns Unchanged fluconazole (Diflucan) Contact prescribing physician if questions or concerns Unchanged hydrochlorothiazide-irbe sartan (hydrochlorothiazide-irb esartan 12.5 mg-150 mg Tab) 1 Tablets By Mouth Every day Contact prescribing physician if questions or concerns Unchanged meloxicam (meloxicam 15 mg oral tablet) By Mouth Every day Contact prescribing physician if questions or concerns Unchanged multivitamin (Multi Vitamin+) Contact prescribing physician if questions or concerns Unchanged zinc sulfate (Zinc) By Mouth Every day Contact prescribing physician if questions or concerns Test Results Urnls Dip Stick Auto w/o Microscopy POC 48896 (02/08/2023) Bilirubin Urine Dipstick - Negative Blood Urine Dipstick - Negative Glucose Urine Dipstick - Negative Ketones Urine Dipstick - Negative Leukocytes Urine Dipstick - Negative Nitrite Urine Dipstick - Negative Protein Urine Dipstick - Negative Specific [place] Urine Dipstick - 1.010 Urine Appearance Urine Dipstick - Clear Urine Color Urine Dipstick - Yellow Urobilinogen Urine Dipstick - Normal 0.2-1 EU/dl pH Urine Dipstick - 5.5 Allergies No Known Allergies Problems Ongoing - Any problem that you are currently receiving treatment for. Arthritis BMI 35.0-35.9,adult BPH with urinary obstruction ED (erectile dysfunction) Gout Head injury Headache Hyperlipemia Hypertension Nocturia Post-void dribbling Urge incontinence Urinary frequency Education Materials Urinary Incontinence Urinary incontinence refers to a condition in which a person is unable to control where and when to pass urine. A person with this condition will urinate involuntarily. This means that the person urinates when he or she does not mean to. What are the causes? This condition may be caused by: ? Medicines. ? Infections. ? Constipation. ? Overactive bladder muscles. ? Weak bladder muscles. ? Weak pelvic floor muscles. These muscles provide support for the bladder, intestine, and, in women, the uterus. ? Enlarged prostate in men. The prostate is a gland near the bladder. When it gets too big, it can pinch the urethra. With the urethra blocked, the bladder can weaken and lose the ability to empty properly. ? Surgery. ? Emotional factors, such as anxiety, stress, or post-traumatic stress disorder (PTSD). ? Spinal cord injury, nerve injury, or other neurological conditions. ? Pelvic organ prolapse. This happens in women when organs move out of place and into the vagina. This movement can prevent the bladder and urethra from working properly. What increases the risk? The following factors may make you more likely to develop this condition: ? Age. The older you are, the high (more content not included)... Normal [facility] Patient Educationon 02-09-20 Patient Education Urology Urinary Incontinence Urinary incontinence refers to a condition in which a person is unable to control where and when to pass urine. A person with this condition will urinate involuntarily. This means that the person urinates when he or she does not mean to. What are the causes? This condition may be caused by: ? Medicines. ? Infections. ? Constipation. ? Overactive bladder muscles. ? Weak bladder muscles. ? Weak pelvic floor muscles. These muscles provide support for the bladder, intestine, and, in women, the uterus. ? Enlarged prostate in men. The prostate is a gland near the bladder. When it gets too big, it can pinch the urethra. With the urethra blocked, the bladder can weaken and lose the ability to empty properly. ? Surgery. ? Emotional factors, such as anxiety, stress, or post-traumatic stress disorder (PTSD). ? Spinal cord injury, nerve injury, or other neurological conditions. ? Pelvic organ prolapse. This happens in women when organs move out of place and into the vagina. This movement can prevent the bladder and urethra from working properly. What increases the risk? The following factors may make you more likely to develop this condition: ? Age. The older you are, the higher the risk. ? Obesity. ? Being physically inactive. ? and childbirth. ? Menopause. ? Diseases that affect the nerves or spinal cord. ? Long-term, or chronic, coughing. This can increase pressure on the bladder and pelvic floor muscles. What are the signs or symptoms? Symptoms may vary depending on the type of urinary incontinence you have. They include: ? A sudden urge to urinate, and passing urine involuntarily before you can get to a bathroom (urge incontinence). ? Suddenly passing urine when doing activities that force urine to pass, such as coughing, laughing, exercising, or sneezing (stress incontinence). ? Needing to urinate often but urinating only a small amount, or constantly dribbling urine (overflow incontinence). ? Urinating because you cannot get to the bathroom in time due to a physical disability, such as arthritis or injury, or due to a communication or thinking problem, such as Alzheimer's disease (functional incontinence). How is this diagnosed? This condition may be diagnosed based on: ? Your medical history. ? A physical exam. ? Tests, such as: ? Urine tests. ? X-rays of your kidney and bladder. ? Ultrasound. ? CT scan. ? Cystoscopy. In this procedure, a health care provider inserts a tube with a light and camera (cystoscope) through the urethra and into the bladder to check for problems. ? Urodynamic testing. These tests assess how well the bladder, urethra, and sphincter can store and release urine. There are different types of urodynamic tests, and they vary depending on what the test is measuring. To help diagnose your condition, your health care provider may recommend that you keep a log of when you urinate and how much you urinate. How is this treated? Treatment for this condition depends on the type of incontinence that you have and its cause. Treatment may include: ? Lifestyle changes, such as: ? Quitting smoking. ? Maintaining a healthy weight. ? Staying active. Try to get 150 minutes of moderate-intensity exercise every week. Ask your health care provider which activities are safe for you. ? Eating a healthy diet. ? Avoid high-fat foods, like fried foods. ? Avoid refined carbohydrates like white bread and white rice. ? Limit how much alcohol and caffeine you drink. ? Increase your fiber intake. Healthy sources of fiber include beans, whole grains, and fresh fruits and vegetables. ? Behavioral changes, such as: ? Pelvic floor muscle exercises. ? Bladder training, such as lengthening the amount of time between bathroom breaks, or using the bathroom at regular intervals. ? Using techniques to suppress bladder urges. This can include distraction techniques or controlled breathing exercises. ? Medicines, such as: ? Medicines to relax the bladder muscles and prevent bladder spasms. ? Medicines to help slow or prevent the growth of a man's prostate. ? Botox injections. These can help relax the bladder muscles. ? Treatments, such as: ? Using pulses of electricity to help change bladder reflexes (electrical nerve stimulation). ? For women, using a medical sales representative to prevent urine leaks. This is a small, tampon-like, disposable device that is inserted into the urethra. ? Injecting collagen or carbon beads (bulking agents) into the urinary sphincter. These can help thicken tissue and close the bladder opening. ? Surgery. Follow these instructions at home: Lifestyle ? Limit alcohol and caffeine. These can fill your bladder quickly and irritate it. ? Keep yourself clean to help prevent odors and skin damage. Ask your health care provider about special skin creams and cleansers that can protect the skin from urine. ? (more content not included)... Normal [facility] Urology Office/Clinic Noteon 02-08-2023 Urology Office/Clinic Note Chief Complaint 8 month follow up HPI Staff 8 month follow up w/no labs. Previous DX: BPH w/urinary obstruction, ED, nocturia, post void dribbling, urge incontinence, urinary frequency. S/P Urodynamics 04/22/21. * Tamsulosin 0.4mg BID, Finasteride 5mg qd, Tadalafil 20mg PRN, VESIcare 10mg qd.-pt states most symptoms has improved. Dysuria: denies pain or burning Incomplete bladder emptying: mild Hematuria: denies visible blood Frequency: denies Urgency: mild intermittent has gotten a lot better Nocturia: 1x a night, has improved before it was 6-7x a night Stream: occasionally has hesitancy, yes weak stream Leaking: denies, pt states it has gotten a lot better w/medication Post void dripping:yes Wearing pads/ Depends: denies Urge incontinence: denies Stress incontinence: denies Incontinence without Sensory Awareness: denies Abdominal pain: denies Flank pain: denies Sexual complaints: denies History of Present Illness Tests reviewed: reviewed UA I have reviewed the previous health record information and history for this patient from Dr. Boyer. I have reviewed and verified the staff HPI to be accurate for this encounter. There have been no associated fever, chills, flank pain, or blood in the urine. Denies any urinary infections since last encounter. Review of Systems PHQ Score Initial Depression Screen Score: 0 ROS - Provider Constitutional: denies weight loss, denies hot flashes. Eyes: denies eye problems. Gastrointestinal: denies nausea, denies vomiting. Cardiovascular: denies chest pain or angina. Integumentary: no dryness Musculoskeletal: denies musculoskeletal symptoms. ENMT: denies otolaryngeal symptoms. Respiratory: no shortness of breath. Heme/Lymph: denies easy bleeding tendency, denies easy bruising tendency. Psychiatric: no confusion, no anxiety. Genitourinary: See HPI. Physical Exam Vitals & Measurements HR: 95(Peripheral) BP: 139/90 HT: 73 in HT: 186 cm WT: 129 kg WT: 283.8 lb BMI: 37.29 General Appearance: alert, no distress, well nourished, well developed male. Genitourinary: normal scrotum, normal testes, normal urethra, normal epididymis, normal vas deferens/spermatic cord. Flank Pain: none. Bladder: nonpalpable. Assessment/Plan Pt has a growth on his left calf, which is likely basal cell carcinoma. 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 1. Urge incontinence (N39.41: Urge incontinence) Pt continues taking VESIcare 10mg QD [1]. Reports he does have some post void dribbling. Admits the urgency and nocturia continue to improve significantly. 2. BPH with urinary obstruction (N40.1: Benign prostatic hyperplasia with lower urinary tract symptoms) PSA (checked by PCP) 05/03/19 - 0.933 05/21/20 - 1.12 05/16/22 - 0.47 (Finasteride 0.94) Pt continues taking Tamsulosin 0.4mg BID and Finasteride 5mg QD [2]. Feels he does not always empty completely. Follow in one year. All questions/concerns were discussed. Pt to call the office if he encounters any issues prior. Pt acknowledges understanding. 3. ED (erectile dysfunction) (N52.9: Male erectile dysfunction, unspecified) Tadalafil 20mg PRN [3] Patient Education Urinary Incontinence I, Kaleigh Donato, personally scribed for Dr. Boyer on 02/08/2023 12:18:11. . Documentation recorded by the scribe, Kaleigh Donato, accurately reflects the services(s) I performed and decisions made by me. Authenticated by Dr. Boyer on 02/08/2023 12:21:20. Problem List/Past Medical History Ongoing Arthritis BMI 35.0-35.9,adult BPH with urinary obstruction ED (erectile dysfunction) Gout Head injury Headache Hyperlipemia Hypertension Nocturia Post-void dribbling Urge incontinence Urinary frequency Historical No qualifying data Procedure/Surgical History Urodynamics (04/22/2021), Cystoscopy (11/26/2020), Vasectomy (2009), Appendectomy (1966), Carpal tunnel, Colonoscopy. Medications Cialis 20 mg Tab, 20 mg= 1 tab(s), Oral, As Directed, 3 refills Diflucan finasteride 5 mg Tab, 5 mg= 1 tab(s), Oral, Daily, 3 refills hydrochlorothiazide-irbe sartan 12.5 mg-150 mg Tab, 1 tab(s), Oral, Daily Lotrisone 0.05%-1% Cream, Topical, BID meloxicam 15 mg oral tablet, Oral, Daily Multi Vitamin+ tamsulosin 0.4 mg Cap, 0.4 mg= 1 cap(s), Oral, BID, 11 refills Vesicare 10 mg Tab, 10 mg= 1 tab(s), Oral, Daily, 11 refills Vitamin B12 Vitamin C, Daily Zinc, Oral, Daily Allergies No Known Allergies Social History Tobacco Former smoker, quit more than 30 days ago Tobacco Use:. Never Smokeless Tobacco Use:. Cigarettes, Stopped age 27 Years., 02/08/2023 Family History Alcoholism: Mother. Arthritis: Grandparent. Asthma: Child. Congenital heart disease: Grandparent. Hyperlipidemia: Grandparent. Hypertension: Grandparent and Grandparent. Stroke: Grandparent. Immunizations Vaccine Date Status Comments influenza virus vaccine, inacti (more content not included)... Normal [facility] Comment on above: Result Comment: Electronically Signed By : Mac BOYER MD\.br\Date and Time Signed: 02/08/23 12:21 EDT\.br\Electronically Co-Signed By: Kaleigh Donato\.br\Date and Time Co-Signed: 02/08/23 12:18 EDT XR lumbar spine 6V w bending on 12-17-2022 XR lumbar spine 6V w bending [place] [address] XRay Report Signed Patient: Lawson Vela MR#: [id number] : 1955 Acct:[id number] Age/Sex: 67 / M ADM Date: 12/17/22 Loc: XD Room: Type: [facility] Attending Dr: Erica MILLER Copies to: ANGELA Khan Ordering Provider: ANGELA Khan Date of Service: 12/17/22 XR/XR lumbar spine 6V w bending: M54.16 LUMBAR SPINE - 6 views CLINICAL HISTORY: Right leg pain and numbness that radiates to toes COMPARISON: None FINDINGS: Vertebral body heights appear maintained. Diffuse endplate and facet joint degenerative changes. Mild diffuse disc space narrowing with relative sparing of L5-S1. No pathological motion on flexion or extension views. Limited sidebending. XR/XR lumbar spine 6V w bending IMPRESSION: DEGENERATIVE CHANGES OF THE LUMBAR SPINE WITH MILD DIFFUSE DISC SPACE NARROWING WITH RELATIVE SPARING OF L5-S1. Impression dictated by: Lenny Cobian Jr., D.O.12/17/2022 3:16 PM Dictation Location: [place] [address] Transcribed By: [facility] 12/17/22 1516 Dictated By: Lenny Cobian Jr, DO 12/17/22 1514 Signed By: 12/17/22 151 [facility] XR lumbar spine 6V w bending [facility] [place] Other XR lumbar spine 6V w bending [facility] [place] Other XR lumbar spine 6V w bending [facility] [facility] [place] Other XR lumbar spine 6[place] [address] [place] Other XR lumbar spine 6V w bending XRay Report [facility] Other XR lumbar spine 6V w bending Signed [facility] Other XR lumbar spine 6V w bending Patient: Lawson Vela MR#: [id number] [facility] Other XR lumbar spine 6V w bending : 1955 Acct:[id number] [facility] Other XR lumbar spine 6V w bending Age/Sex: 67 / M ADM Date: 12/17/22 [facility] Other XR lumbar spine 6V w bending Loc: XD Room: Type: [facility] [place] Other XR lumbar spine 6V w bending Attending Dr: Erica MILLER [place] Other XR lumbar spine 6V w bending Copies to: ANGELA Khan [facility] Other XR lumbar spine 6V w bending Ordering Provider: ANGELA Khan [place] Other XR lumbar spine 6V w bending Date of Service: 12/17/22 [facility] Other XR lumbar spine 6V w bending XR/XR lumbar spine 6V w bending: M54.16 [place] Other XR lumbar spine 6V w bending LUMBAR SPINE - 6 views [employer] [facility] Other XR lumbar spine 6V w bending CLINICAL HISTORY: Right leg pain and numbness that radiates to toes [facility] Other XR lumbar spine 6V w bending COMPARISON: None [place] Other XR lumbar spine 6V w bending FINDINGS: Vertebral body heights appear maintained. Diffuse endplate and facet joint degenerative [place] Other XR lumbar spine 6V w bending changes. Mild diffuse disc space narrowing with relative sparing of L5-S1. No pathological motion [place] Other XR lumbar spine 6V w bending on flexion or extension views. Limited sidebending. [facility] Other XR lumbar spine 6V w bending XR/XR lumbar spine 6V w bending [place] Other XR lumbar spine 6V w bending IMPRESSION: [facility] Other XR lumbar spine 6V w bending DEGENERATIVE CHANGES OF THE LUMBAR SPINE WITH MILD DIFFUSE DISC SPACE NARROWING WITH RELATIVE [place] Other XR lumbar spine 6V w bending SPARING OF L5-S1. [facility] Other XR lumbar spine 6V w bending Impression dictated by: Lenny Cobian Jr., D.O.12/17/2022 3:16 PM [facility] Other XR lumbar spine 6V w bending Dictation Location: [place] [address] [place] Other XR lumbar spine 6V w bending Transcribed By: PWS 12/17/22 [facility] [place] Other XR lumbar spine 6V w bending Dictated By: Lenny Cobian Jr DO 12/17/22 [facility] [place] Other XR lumbar spine 6V w bending Signed By: [facility] Other XR lumbar spine 6V w bending 12/17/22 [facility] [place] Other XR HIPS JAIRO 3_4V WO PELVISon 11-13-2022 XR HIPS JAIRO 3_4V WO PELVIS EXAMINATION: XR HIPS JAIRO 3_4V WO PELVIS HISTORY: Bilateral hip joint pain COMPARISON: No relevant comparison available. FINDINGS: RIGHT FINDINGS: BONES: No acute fracture or dislocation. Moderate osteoarthritis with joint space narrowing and marginal osteophyte formation SOFT TISSUES: Negative. No visible soft tissue swelling. OTHER: Negative. LEFT FINDINGS: BONES: No acute fracture or dislocation. Moderate osteoarthritis with joint space narrowing and marginal osteophyte formation SOFT TISSUES: Negative. No visible soft tissue swelling. OTHER: Negative. IMPRESSION: RIGHT CONCLUSION: Moderate osteoarthritis LEFT CONCLUSION: Moderate osteoarthritis Electronically authenticated by: DEVIN KNAPP Date: 2022-11-13 13:07 Normal [facility] Lab Reportson 06-07-2022 Lab Reports [id number] [id number]: 127 Normal [facility] Ambulatory Visit Summaryon 1 08-02-2021 Ambulatory Visit Summary LAWSON VELA :1955 Visit Date:06/01/2022 Ambulatory Visit Instructions Your Diagnosis Urge incontinence BPH with urinary obstruction ED (erectile dysfunction) Tests Performed Urnls Dip Stick Auto w/o Microscopy POC 08568 Your Care Team Attending Physician - PAMELA BAER, Mac Stephenson Primary Care Physician - MARIBEL BAER, JAVAD Jiménez This Is Your Medications List finasteride (finasteride 5 mg Tab) solifenacin (Vesicare 10 mg Tab) tadalafil (Cialis 20 mg Tab) tamsulosin (tamsulosin 0.4 mg Cap) Contact prescribing physician if questions or concerns ascorbic acid (Vitamin C) betamethasone-clotrimazo le topical (Lotrisone 0.05%-1% Cream) cyanocobalamin (Vitamin B12) fluconazole (Diflucan) meloxicam (meloxicam 15 mg oral tablet) multivitamin (Multi Vitamin+) zinc sulfate (Zinc) Procedures Performed Urodynamics (04/22/2021), Cystoscopy (11/26/2020), Vasectomy (2009), Appendectomy (1966), Carpal tunnel, Colonoscopy. Discharge Vitals Heart Rate (Peripheral) 70 Respiratory Rate 16 Blood Pressure 128/76 Height 186 cm Height 73 in Weight 122 kg Weight 268.4 lb BMI 35.26 What to do next You Need to Schedule the Following Appointments Follow Up with PAMELA BAER, FEROZ Lopez When: Where: [facility] [address], [place] [address]- Medications What How Much When Instructions Unchanged finasteride (finasteride 5 mg Tab) 1 Tablets By Mouth Every day Unchanged solifenacin (Vesicare 10 mg Tab) 1 Tablets By Mouth Every day Unchanged tadalafil (Cialis 20 mg Tab) 1 Tablets By Mouth As Directed take 1 tab i hour prior to sexual activity Unchanged tamsulosin (tamsulosin 0.4 mg Cap) 1 Capsules By Mouth 2 times a day Unchanged ascorbic acid (Vitamin C) Every day Contact prescribing physician if questions or concerns Unchanged betamethasone-clotrimazo le topical (Lotrisone 0.05%-1% Cream) Topical 2 times a day Contact prescribing physician if questions or concerns Unchanged cyanocobalamin (Vitamin B12) Contact prescribing physician if questions or concerns Unchanged fluconazole (Diflucan) Contact prescribing physician if questions or concerns Unchanged meloxicam (meloxicam 15 mg oral tablet) By Mouth Every day Contact prescribing physician if questions or concerns Unchanged multivitamin (Multi Vitamin+) Contact prescribing physician if questions or concerns Unchanged zinc sulfate (Zinc) By Mouth Every day Contact prescribing physician if questions or concerns Test Results Urnls Dip Stick Auto w/o Microscopy POC 26873 (06/01/2022) Bilirubin Urine Dipstick - Negative Blood Urine Dipstick - Negative Glucose Urine Dipstick - Negative Ketones Urine Dipstick - Negative Leukocytes Urine Dipstick - Negative Nitrite Urine Dipstick - Negative Protein Urine Dipstick - Negative Specific [place] Urine Dipstick - 1.010 Urine Appearance Urine Dipstick - Clear Urine Color Urine Dipstick - Yellow Urobilinogen Urine Dipstick - Normal 0.2-1 EU/dl pH Urine Dipstick - 5 Allergies No Known Allergies Problems Ongoing - Any problem that you are currently receiving treatment for. Arthritis BMI 35.0-35.9,adult BPH with urinary obstruction ED (erectile dysfunction) Gout Head injury Headache Hyperlipemia Hypertension Nocturia Post-void dribbling Urge incontinence Urinary frequency [employer] Benign Prostatic Hyperplasia Benign prostatic hyperplasia (BPH) is an enlarged prostate gland that is caused by the normal aging process and not by cancer. The prostate is a walnut-sized gland that is involved in the production of semen. It is located in front of the rectum and below the bladder. The bladder stores urine and the urethra is the tube that carries the urine out of the body. The prostate may get bigger as a man gets older. An enlarged prostate can press on the urethra. This can make it harder to pass urine. The build-up of urine in the bladder can cause infection. Back pressure and infection may progress to bladder damage and kidney (renal) failure. What are the causes? This condition is part of a normal aging process. However, not all men develop problems from this condition. If the prostate enlarges away from the urethra, urine flow will not be blocked. If it enlarges toward the urethra and compresses it, there will be problems passing urine. What increases the risk? This condition is more likely to develop in men over the age of 50 years. What are the signs or symptoms? Symptoms of this condition include: ? Getting up often during the night to urinate. ? Needing to urinate frequently during the day. ? Difficulty starting urine flow. ? Decrease in size and strength of your urine stream. ? Leaking (dribbling) after urinating. ? Inability to pass urine. This needs immediate treatment. ? Inability to completely empty your bladder. ? Pain when you pass (more content not included)... Normal [facility] Patient Educationon 06-01-20 Patient Education Urology Benign Prostatic Hyperplasia Benign prostatic hyperplasia (BPH) is an enlarged prostate gland that is caused by the normal aging process and not by cancer. The prostate is a walnut-sized gland that is involved in the production of semen. It is located in front of the rectum and below the bladder. The bladder stores urine and the urethra is the tube that carries the urine out of the body. The prostate may get bigger as a man gets older. An enlarged prostate can press on the urethra. This can make it harder to pass urine. The build-up of urine in the bladder can cause infection. Back pressure and infection may progress to bladder damage and kidney (renal) failure. What are the causes? This condition is part of a normal aging process. However, not all men develop problems from this condition. If the prostate enlarges away from the urethra, urine flow will not be blocked. If it enlarges toward the urethra and compresses it, there will be problems passing urine. What increases the risk? This condition is more likely to develop in men over the age of 50 years. What are the signs or symptoms? Symptoms of this condition include: ? Getting up often during the night to urinate. ? Needing to urinate frequently during the day. ? Difficulty starting urine flow. ? Decrease in size and strength of your urine stream. ? Leaking (dribbling) after urinating. ? Inability to pass urine. This needs immediate treatment. ? Inability to completely empty your bladder. ? Pain when you pass urine. This is more common if there is also an infection. ? Urinary tract infection (UTI). How is this diagnosed? This condition is diagnosed based on your medical history, a physical exam, and your symptoms. Tests will also be done, such as: ? A post-void bladder scan. This measures any amount of urine that may remain in your bladder after you finish urinating. ? A digital rectal exam. In a rectal exam, your health care provider checks your prostate by putting a lubricated, gloved finger into your rectum to feel the back of your prostate gland. This exam detects the size of your gland and any abnormal lumps or growths. ? An exam of your urine (urinalysis). ? A prostate specific antigen (PSA) screening. This is a blood test used to screen for prostate cancer. ? An ultrasound. This test uses sound waves to electronically produce a picture of your prostate gland. Your health care provider may refer you to a specialist in kidney and prostate diseases (urologist). How is this treated? Once symptoms begin, your health care provider will monitor your condition (active surveillance or watchful waiting). Treatment for this condition will depend on the severity of your condition. Treatment may include: ? Observation and yearly exams. This may be the only treatment needed if your condition and symptoms are mild. ? Medicines to relieve your symptoms, including: ? Medicines to shrink the prostate. ? Medicines to relax the muscle of the prostate. ? Surgery in severe cases. Surgery may include: ? Prostatectomy. In this procedure, the prostate tissue is removed completely through an open incision or with a laparoscope or robotics. ? Transurethral resection of the prostate (TURP). In this procedure, a tool is inserted through the opening at the tip of the penis (urethra). It is used to cut away tissue of the inner core of the prostate. The pieces are removed through the same opening of the penis. This removes the blockage. ? Transurethral incision (TUIP). In this procedure, small cuts are made in the prostate. This lessens the prostate's pressure on the urethra. ? Transurethral microwave thermotherapy (TUMT). This procedure uses microwaves to create heat. The heat destroys and removes a small amount of prostate tissue. ? Transurethral needle ablation (TUNA). This procedure uses radio frequencies to destroy and remove a small amount of prostate tissue. ? Interstitial laser coagulation (ILC). This procedure uses a laser to destroy and remove a small amount of prostate tissue. ? Transurethral electrovaporization (TUVP). This procedure uses electrodes to destroy and remove a small amount of prostate tissue. ? Prostatic urethral lift. This procedure inserts an implant to push the lobes of the prostate away from the urethra. Follow these instructions at home: ? Take chos-okz-ooknwax and prescription medicines only as told by your health care provider. ? Monitor your symptoms for any changes. Contact your health care provider with any changes. ? Avoid drinking large amounts of liquid before going to bed or out in public. ? Avoid or reduce how much caffeine or alcohol you drink. ? Give yourself time when you urinate. ? Keep all follow-up visits as told by your health care provider. This is important. Contact a health care provider if: ? You have unexplained back pain. ? Your symptoms do not get better with treatment. ? You d (more content not included)... Normal [facility] Urology Office/Clinic Noteon 06-01-2022 Urology Office/Clinic Note Chief Complaint 3m HPI Staff 3m f/u to BPH, ED & urge incontinence. *Tamsulosin 0.4mg BID, Finasteride 5mg QD, Tadalafil 20mg PRN & VESIcare 10mg QD therapy. Has not been getting up as often. Urgency has improved. Denies any leaking/incontinence. States the only changes he has made since last encounter is lowering amount of fluids before bed and making sure to take medications on daily basis. Occasional post void dribbling, states it is more of an inconvenience. History of Present Illness Tests reviewed: reviewed UA. I have reviewed the previous health record information and history for this patient from Dr. Boyer. I have reviewed and verified the staff HPI to be accurate for this encounter. There have been no associated fever, chills, flank pain, or blood in the urine. Denies any urinary infections since last encounter. Review of Systems PHQ Score Initial Depression Screen Score: 0 ROS - Provider Constitutional: denies weight loss, denies hot flashes. Eyes: denies eye problems. Gastrointestinal: denies nausea, denies vomiting. Cardiovascular: denies chest pain or angina. Integumentary: no dryness Musculoskeletal: denies musculoskeletal symptoms. ENMT: denies otolaryngeal symptoms. Respiratory: no shortness of breath. Heme/Lymph: denies easy bleeding tendency, denies easy bruising tendency. Psychiatric: no confusion, no anxiety. Genitourinary: denies dysuria, denies hematuria, denies discharge, denies urinary frequency, denies urinary hesitancy, denies nocturia, denies incontinence, denies genital sores, denies decreased libido, and denies erectile dysfunction. Physical Exam Vitals & Measurements HR: 70(Peripheral) RR: 16 BP: 128/76 HT: 73 in HT: 186 cm WT: 122 kg WT: 268.4 lb BMI: 35.26 General Appearance: alert, no distress, well nourished, well developed male. Genitourinary: normal scrotum, normal testes, normal urethra, normal epididymis, normal vas deferens/spermatic cord. Flank Pain: none. Bladder: nonpalpable. Assessment/Plan 1. Urge incontinence (N39.41: Urge incontinence) Pt continues taking VESIcare 10mg QD therapy, urgency has improved with this therapy. Has not been getting up as often. Denies any leaking/incontinence. Occasional post void dribbling, states it is more of an inconvenience. States the only changes he has made since last encounter is lowering amount of fluids before bed and making sure to take medications on daily basis. Pt has not had any accidents since prior encounter. Pt pleased with the results from the medication. Pt reports he has spine problems and will be receiving injections for tx, discussed that spinal problems could be related to bladder dysfunction. Most recent PSA 1.12 done 05/21/20. Pt states PCP checks PSA, will contact [facility] for PSA. All questions/concerns were discussed. Pt. to call the office if heencounters any issues prior. Pt. acknowledges understanding. Follow up 6 mos, no labs. 2. BPH with urinary obstruction (N40.1: Benign prostatic hyperplasia with lower urinary tract symptoms) UA today negative for blood and infection. Pt continues taking Tamsulosin 0.4mg BID and Finasteride 5mg QD. Pt denies any BPH complaints. 3. ED (erectile dysfunction) (N52.9: Male erectile dysfunction, unspecified) Tadalafil 20mg PRN. Pt will call office for any medication refills. Follow-up With When Contact Information PAMELA BAER, Mac Stephenson, URL [facility] [address], [place] [address]- Additional Instructions: f/u 6 mos, no labs Patient Education Benign Prostatic Hyperplasia I, Linda George, personally scribed for Dr. Boyer on 06/01/2022 12:13:37. . Documentation recorded by the scribe, Linda George, accurately reflects the services(s) I performed and decisions made by me. Authenticated by Dr. Boyer on 06/01/2022 12:14:51. Problem List/Past Medical History Ongoing Arthritis BMI 35.0-35.9,adult BPH with urinary obstruction ED (erectile dysfunction) Gout Head injury Headache Hyperlipemia Hypertension Nocturia Post-void dribbling Urge incontinence Urinary frequency Historical No qualifying data Procedure/Surgical History Urodynamics (04/22/2021), Cystoscopy (11/26/2020), Vasectomy (2009), Appendectomy (1966), Carpal tunnel, Colonoscopy. Medications Cialis 20 mg Tab, 20 mg= 1 tab(s), Oral, As Directed, 3 refills Diflucan finasteride 5 mg Tab, 5 mg= 1 tab(s), Oral, Daily, 3 refills Lotrisone 0.05%-1% Cream, Topical, BID meloxicam 15 mg oral tablet, Oral, Daily Multi Vitamin+ tamsulosin 0.4 mg Cap, 0.4 mg= 1 cap(s), Oral, BID, 11 refills Vesicare 10 mg Tab, 10 mg= 1 tab(s), Oral, Daily, 9 refills Vitamin B12 Vitamin C, Daily Zinc, Oral, Daily Allergies No Known Allergies Social History Tobacco Former smoker, quit more than 30 days ago Tobacco Use:. Cigarettes, Stopped age 27 Years., 06/01/2022 Family History Alcoholis (more content not included)... Normal [facility] Comment on above: Result Comment: Electronically Signed By : Mac BOYER MD\.br\Date and Time Signed: 06/01/22 12:14 EST\.br\Electronically Co-Signed By: Linda George\.br\Date and Time Co-Signed: 06/01/22 12:13 EST MRI Lumbar Spine w/oon 05-01 MRI Lumbar Spine w/o CLINICAL HISTORY: Pain RADIATING TO THE LEFT LEG COMPARISONS: NONE AVAILABLE TECHNIQUE: Multiplanar multisequence images of the lumbar spine were obtained without contrast. FINDINGS: Counting reference: The first presacral vertebral body is labeled L5. There is a transitional vertebra at S1 with partial segmentation at S1-S2 The spine is in anatomic alignment. There is no acute fracture. There is preservation of the vertebral body heights. There is intervertebral disc desiccation and disc space narrowing at every level. There is vacuum joint phenomenon at L3-L4, L4-L5, The bone marrow signal is within normal limits. 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 The distal cord and conus medullaris are unremarkable. The cauda equina is within normal limits. There is no prevertebral soft tissue swelling. The visualized retroperitoneal structures are unremarkable. L2-3: There is a 4 mm symmetric disc bulge as well as mild bilateral facet arthrosis and mild ligamentum flavum hypertrophy. There is moderate narrowing of central canal with mild bilateral neural foraminal narrowing. L3-4: There is a 3 mm symmetric disc bulge as well as moderate bilateral facet arthrosis and mild ligamentum flavum hypertrophy. There is moderate narrowing of central canal and moderate bilateral neural foraminal narrowing. There is increased signal in the facets indicating synovitis. L4-5: There is a 4 mm symmetric disc bulge as well as moderate bilateral facet arthrosis and mild ligamentum flavum hypertrophy with moderate central canal narrowing. There is moderate to severe bilateral neural foraminal narrowing which may be impinging on the exiting bilateral L4 nerve roots. There is increased signal in the facet joints indicating synovitis. L5-S1: There is a 2 mm symmetric disc bulge as well as moderate bilateral facet arthrosis without ligamentum flavum hypertrophy. There is no narrowing of central canal. There is mild bilateral neural foraminal narrowing The visualized portions of the sacrum and iliac bones are within normal limits. 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 There is up to moderate narrowing of central canal. There is severe narrowing of the neural foramina at L4-L5 which may be impinging on the exiting bilateral L4 nerve roots. There is facet arthropathy with increased signal at L3-L4 and L4-L5 indicating synovitis. In the appropriate clinical setting these May BE potential targets for image guided therapeutic injections. Report reported and signed by YASMANY ARAYA on 05/01/2022 1217 Normal [facility] XR Orbits for MRIon 04-27-20 XR Orbits for MRI CLINICAL HISTORY: Prescreening for MRI. COMPARISON: None. RESULT: No radiopaque foreign bodies. No acute osseous findings. IMPRESSION: No radiopaque foreign bodies. Report reported and signed by Javad Dickens on 04/27/2022 1540 Normal [facility] XR Spine Lumbar 4+ Views*on 04-06-2022 XR Spine Lumbar 4+ Views* FINDINGS: Vertebral body heights are normal. Mild disc space loss thoracolumbar region. Four non-rib bearing, lumbar appearing vertebral bodies, nomenclature will reflect sacralization of L5. Sclerosis involves posterior elements of the mid and distal lumbar spine and sacroiliac joints; however, no spondylolysis or spondylolisthesis is seen. No acute fracture is identified. Soft tissues are relatively unremarkable. IMPRESSION: Mild diffuse arthritis, normal alignment. Given this history, as tolerated by the patient, MRI may be of assistance. Report reported and signed by Lenny Cook on 04/06/2022 1106 Normal [facility] Ambulatory Visit Summaryon 0 02-16-2022 Ambulatory Visit Summary LAWSON VELA :1955 Visit Date:02/16/2022 Ambulatory Visit Instructions Your Diagnosis BPH with urinary obstruction ED (erectile dysfunction) Urge incontinence BMI 35.0-35.9,adult Tests Performed Urnls Dip Stick Auto w/o Microscopy POC [id number] Your Care Team Attending Physician - PAMEAL BAER, Mac Stephenson Primary Care Physician - MARIBEL BAER, JAVAD Jiménez This Is Your Medications List finasteride (finasteride 5 mg Tab) solifenacin (Vesicare 10 mg Tab) tadalafil (Cialis 20 mg Tab) tamsulosin (tamsulosin 0.4 mg Cap) Contact prescribing physician if questions or concerns ascorbic acid (Vitamin C) betamethasone-clotrimazo le topical (Lotrisone 0.05%-1% Cream) cyanocobalamin (Vitamin B12) fluconazole (Diflucan) meloxicam (meloxicam 15 mg oral tablet) multivitamin (Multi Vitamin+) zinc sulfate (Zinc) Procedures Performed Urodynamics (04/22/2021), Cystoscopy (11/26/2020), Vasectomy (2009), Appendectomy (1966), Carpal tunnel, Colonoscopy. Discharge Vitals Heart Rate (Peripheral) 68 Respiratory Rate 16 Blood Pressure 136/84 Height 186 cm Height 186.0 cm Weight 122.2 kg Weight 122.2 kg BMI 35.32 What to do next Scheduled Follow-Up Appointments Wednesday 10:45 AM EST With: PAMELA BAER, Mac Stephenson Where: [facility] Patient Educationon 02-17-20 22 Patient Education Nutrition Calorie Counting for Weight Loss Calories are units of energy. Your body needs a certain amount of calories from food to keep you going throughout the day. When you eat more calories than your body needs, your body stores the extra calories as fat. When you eat fewer calories than your body needs, your body etienne fat to get the energy it needs. Calorie counting means keeping track of how many calories you eat and drink each day. Calorie counting can be helpful if you need to lose weight. If you make sure to eat fewer calories than your body needs, you should lose weight. Ask your health care provider what a healthy weight is for you. For calorie counting to work, you will need to eat the right number of calories in a day in order to lose a healthy amount of weight per week. A dietitian can help you determine how many calories you need in a day and will give you suggestions on how to reach your calorie goal. ? A healthy amount of weight to lose per week is usually 1?2 lb (0.5?0.9 kg). This usually means that your daily calorie intake should be reduced by 500?750 calories. ? Eating 1,200 ? 1,500 calories per day can help most women lose weight. ? Eating 1,500 ? 1,800 calories per day can help most men lose weight. What is my plan? My goal is to have calories per day. If I have this many calories per day, I should lose around pounds per week. What do I need to know about calorie counting? In order to meet your daily calorie goal, you will need to: ? Find out how many calories are in each food you would like to eat. Try to do this before you eat. ? Decide how much of the food you plan to eat. ? Write down what you ate and how many calories it had. Doing this is called keeping a food log. To successfully lose weight, it is important to balance calorie counting with a healthy lifestyle that includes regular activity. Aim for 150 minutes of moderate exercise (such as walking) or 75 minutes of vigorous exercise (such as running) each week. Where do I find calorie information? The number of calories in a food can be found on a Nutrition Facts label. If a food does not have a Nutrition Facts label, try to look up the calories online or ask your dietitian for help. Remember that calories are listed per serving. If you choose to have more than one serving of a food, you will have to multiply the calories per serving by the amount of servings you plan to eat. For example, the label on a package of bread might say that a serving size is 1 slice and that there are 90 calories in a serving. If you eat 1 slice, you will have eaten 90 calories. If you eat 2 slices, you will have eaten 180 calories. How do I keep a food log? Immediately after each meal, record the following information in your food log: ? What you ate. Don't forget to include toppings, sauces, and other extras on the food. ? How much you ate. This can be measured in cups, ounces, or number of items. ? How many calories each food and drink had. ? The total number of calories in the meal. Keep your food log near you, such as in a small notebook in your pocket, or use a mobile david or website. Some programs will calculate calories for you and show you how many calories you have left for the day to meet your goal. What are some calorie counting tips? ? Use your calories on foods and drinks that will fill you up and not leave you hungry: ? Some examples of foods that fill you up are nuts and nut butters, vegetables, lean proteins, and high-fiber foods like whole grains. High-fiber foods are foods with more than 5 g fiber per serving. ? Drinks such as sodas, specialty coffee drinks, alcohol, and juices have a lot of calories, yet do not fill you up. ? Eat nutritious foods and avoid empty calories. Empty calories are calories you get from foods or beverages that do not have many vitamins or protein, such as candy, sweets, and soda. It is better to have a nutritious high-calorie food (such as an avocado) than a food with few nutrients (such as a bag of chips). ? Know how many calories are in the foods you eat most often. This will help you calculate calorie counts faster. ? Pay attention to calories in drinks. Low-calorie drinks include water and unsweetened drinks. ? Pay attention to nutrition labels for low fat or fat free foods. These foods sometimes have the same amount of calories or more calories than the full fat versions. They also often have added sugar, starch, or salt, to make up for flavor that was removed with the fat. ? Find a way of tracking calories that works for you. Get creative. Try different apps or programs if writing down calories does not work for you. What are some portion control tips? ? Know how many calories are in a serving. This will help you know how many servings of a certain food you can have. ? Use a measuring cup to measure serving sizes. You could (more content not included)... Normal [facility] Urology Office/Clinic Noteon 02-16-2022 Urology Office/Clinic Note Chief Complaint 6 month f/u HPI Staff Pt is here for 6 month f/u. Previous dx of BPH with urinary obstruction, urge incontinence, nocturia and ED. Pt feels he has improved since his last OV. Pt continues taking Vesicare 10mg qd, Tamsulosin 0.4mg BID, Finasteride 5mg qd and Cialis 20mg as needed. Dysuria: no Incomplete bladder emptying: no Hematuria: no Frequency: every 2 hours or so Urgency: yes if he has waited too long Nocturia: 2-3x Stream: feels he has a good stream Leaking: no Post void dripping: yes Wearing pads/ Depends: no Urge incontinence: pt states he has only had this 1x since his last OV and believes it happened because he was drinking beer before bed Stress incontinence: no Incontinence without Sensory Awareness: no Abdominal pain: no Flank pain: no Sexual complaints: no History of Present Illness Pt is here for 6 month follow up due to BPH, Nocturia and ED Reviewed UA Pt has no associated symptoms, no fever, no chills, no flank pain. I have reviewed the previous health record information and history for this patient from Dr. Boyer Review of Systems PHQ Score Initial Depression Screen Score: 0 ROS - Provider Constitutional: denies weight loss, denies hot flashes. Eyes: denies eye problems. Gastrointestinal: denies nausea, denies vomiting. Cardiovascular: denies chest pain or angina. Integumentary: no dryness Musculoskeletal: denies musculoskeletal symptoms. ENMT: denies otolaryngeal symptoms. Respiratory: no shortness of breath. Heme/Lymph: denies easy bleeding tendency, denies easy bruising tendency. Psychiatric: no confusion, no anxiety. Genitourinary: denies dysuria, denies hematuria, denies discharge, denies urinary frequency, denies urinary hesitancy, mild nocturia, mild incontinence, denies genital sores, denies decreased libido, and mild erectile dysfunction. Physical Exam Vitals & Measurements HR: 68(Peripheral) RR: 16 BP: 136/84 HT: 186 cm HT: 186.0 cm WT: 122.2 kg WT: 122.2 kg BMI: 35.32 General Appearance: alert, no distress, well nourished, well developed male. Assessment/Plan Will return for follow up in 4 months. 1. BPH with urinary obstruction (N40.1: Benign prostatic hyperplasia with lower urinary tract symptoms) Stream good. Empties fair. Discussed with pt the effectiveness of current BPH medications. Pt will continue Tamsulosin 0.4mg BID and Finasteride 5mg qd. Pt is having Mild urinary symptoms: Nocturia (has improved by 50% since last visit) and Post Void Dribbling. 2. ED (erectile dysfunction) (N52.9: Male erectile dysfunction, unspecified) Pt will continue Tadalafil 20mg PRN 3. Urge incontinence (N39.41: Urge incontinence) Has improved. gets this if he waits too long. we discussed botox. he wishes to think about it for now and reevaluate in 3-4 months. Pt will continue Vesicare 10mg qd. Follow-up With When Contact Information PAMELA BAER, Mac Stephenson, URL In 6 months [facility] [place] [id number] [facility] (1) Additional Instructions: Patient Education Benign Prostatic Hyperplasia Calorie Counting for Weight Loss IAllegra personally scribed for Dr. Boyer on 02/16/2022 11:26:03. . Documentation recorded by the scribe, Allegra Tsai, accurately reflects the services(s) I performed and decisions made by me. Authenticated by Dr. Boyer on 02/16/2022 11:28:26. Problem List/Past Medical History Ongoing Arthritis BMI 35.0-35.9,adult BPH with urinary obstruction ED (erectile dysfunction) Gout Head injury Headache Hyperlipemia Hypertension Nocturia Post-void dribbling Urge incontinence Urinary frequency Historical No qualifying data Procedure/Surgical History Urodynamics (04/22/2021), Cystoscopy (11/26/2020), Vasectomy (2009), Appendectomy (1966), Carpal tunnel, Colonoscopy. Medications Cialis 20 mg Tab, 20 mg= 1 tab(s), Oral, As Directed, 3 refills Diflucan finasteride 5 mg Tab, 5 mg= 1 tab(s), Oral, Daily, 3 refills Lotrisone 0.05%-1% Cream, Topical, BID meloxicam 15 mg oral tablet, Oral, Daily Multi Vitamin+ tamsulosin 0.4 mg Cap, 0.4 mg= 1 cap(s), Oral, BID, 11 refills Vesicare 10 mg Tab, 10 mg= 1 tab(s), Oral, Daily, 9 refills Vitamin B12 Vitamin C, Daily Zinc, Oral, Daily Allergies No Known Allergies Social History Tobacco Former smoker, quit more than 30 days ago Tobacco Use:., 05/05/2021 Former smoker, quit more than 30 days ago Tobacco Use:., 03/10/2021 Former smoker, quit more than 30 days ago Tobacco Use:., 10/18/2020 Former smoker, quit more than 30 days ago Tobacco Use:., 06/17/2020 Family History Alcoholism: Mother. Arthritis: Grandparent. Asthma: Child. Congenital heart disease: Grandparent. Hyperlipidemia: Grandparent. Hypertension: Grandparent and Grandparent. Stroke: Grandparent. Immunizations Vaccine Date Status Comments SARS-CoV-2 (COVI (more content not included)... Normal [facility] Comment on above: Result Comment: Electronically Signed By : Mac BOYER MD\.br\Date and Time Signed: 02/16/22 11:28 EDT\.br\Electronically Co-Signed By: Allegra Tsai\.br\Date and Time Co-Signed: 02/16/22 11:26 EDT Vital Signs Date Time Vital Sign Value Performing Clinician Facility 12-17-2022 13:00-0400 Body height 182.88 cm [facility] Other [facility] Other 12-17-2022 13:00-0400 Body mass index (BMI) [Ratio] 38.51 kg/m2 [employer] [facility] Other [facility] Other 12-17-2022 13:00-0400 Body weight 128.82 kg [employer] [facility] Other [facility] Other 12-17-2022 13:00-0400 Diastolic blood pressure 88 mm[Hg] [employer] [facility] Other [facility] Other 12-17-2022 13:00-0400 Systolic blood pressure 146 mm[Hg] [employer] [facility] Other [facility] Other 06-01-2022 11:29-0500 Blood Pressure Location Mac BOYER [facility] 06-01-2022 11:29-0500 Diastolic blood pressure 76 mm[Hg] Mac BOYER [facility] 06-01-2022 11:29-0500 Heart rate 70 /min Mac BOYER [facility] 06-01-2022 11:29-0500 Respiratory rate 16 /min Mac BOYER [facility] 06-01-2022 11:29-0500 Systolic blood pressure 128 mm[Hg] Mac BOYER [facility] 02-16-2022 10:28-0400 Blood Pressure Location Macmichelle BOYER [facility] 02-16-2022 10:28-0400 Diastolic blood pressure 84 mm[Hg] Mac BOYER [facility] 02-16-2022 10:28-0400 Heart rate 68 /min Mac BOYER [facility] 02-16-2022 10:28-0400 Respiratory rate 16 /min Mac BOYER [facility] 02-16-2022 10:28-0400 Systolic blood pressure 136 mm[Hg] Mac BOEYR [facility] Encounters Encounter Date Encounter Type Care Provider Facility Start: 06-08-2023 End: 06-09-2023 ambulatory CHARISSA ARRINGTON Not Available Start: 06-07-2023 End: 06-07-2023 ambulatory CLAUDINE [facility] HOUSE Not Available Start: 05-17-2023 End: 05-17-2023 ambulatory JAVAD DONATO Not Available Start: 04-13-2023 End: 04-13-2023 ambulatory LAILA PAN Facility:[facility] Start: 04-13-2023 End: 04-13-2023 Patient encounter procedure Laila Pan PA-C Work Phone: [facility] Comment on above: Spinal stenosis, lum bar region with neurogenic claudication (Primary Dx); Bilateral hip joint arthritis Start: 02-08-2023 End: 02-09-2023 ambulatory Mac BOYER Facility:[facility] Start: 01-28-2023 Chart abstracting Camron Mix MD Work Phone: Neurology Start: 12-17-2022 End: 12-17-2022 Patient encounter procedure II Javad Donato Work Phone: [facility] Work Phone: Start: 12-17-2022 End: 12-17-2022 ambulatory II Javad Donato Work Phone: [facility] Work Phone: Start: 12-17-2022 Encounter for other specified special examinations Erica Xiong [facility] Start: 12-17-2022 Office outpatient ne w 45 minutes Erica [facility] Start: 11-24-2022 End: 11-25-2022 ambulatory NARENDRANATH LAKSHMIPATHY . Facility: Start: 11-13-2022 End: 11-14-2022 ambulatory NARENDRANATH LAKSHMIPATHY . Facility:[facility] Start: 11-10-2022 End: 11-11-2022 ambulatory NARENDRANATH LAKSHMIPATHY . Facility:[facility] Start: 10-08-2022 End: 10-09-2022 ambulatory NARENDRANATH LAKSHMIPATHY . Facility: Start: 09-10-2022 End: 09-11-[address] ANTIONE HAWTHORNE . Facility: Start: 08-13-2022 Encounter for preprocedural cardiovascular examination DR ANTIONE HAWTHORNE . [facility] Start: 08-11-2022 End: 08-11-[address] ANTIONE HAWTHORNE . Facility:[facility] Start: 08-07-2022 End: 08-08-[address] ANTIONE HAWTHORNE . Facility:[facility] Start: 08-07-2022 End: 08-08-2022 Encounter for preprocedural cardiovascular examination DR ANTIONE HAWTHORNE . Facility: Start: 07-23-2022 End: 07-24-[address] ANTIONE HAWTHORNE . Facility:[facility] Start: 07-07-2022 End: 07-07-[address] ANTIONE HAWTHORNE . Facility:[facility] Start: 06-25-2022 End: 06-26-[address] ANTIONE HAWTHORNE . Facility:[facility] Start: 06-09-2022 End: 06-09-[address] ANTIONE HAWTHORNE . Facility: Start: 06-01-2022 End: 06-02-2022 ambulatory Mac BOYER Facility:[facility] Start: 06-01-2022 End: 06-01-2022 Patient encounter procedure Mac BOYRE [facility] Start: 05-19-2022 End: 05-20-[address] ANTIONE HAWTHORNE . Facility: Start: 05-05-2022 End: 05-05-[address] ANTIONE HAWTHORNE . Facility: Start: 04-28-2022 End: 04-29-[address] ANTIONE HAWTHORNE . Facility: Start: 04-27-2022 End: 05-14-[address] JAVAD DONATO Facility:[facility] Start: 02-16-2022 End: 02-17-2022 ambulatory Mac BOYER Facility:[facility] Start: 02-16-2022 End: 02-16-2022 Patient encounter procedure Mac BOYER [facility] Procedures Date Procedure Procedure Detail Performing Clinician Start: 12-17-2022 X-ray of lumbar spin e, six views including bending views II Javad Donato Work Phone: Start: 04-22-2021 Urodynamic studies Lula BOYER Start: 11-26-2020 Cystoscopy Mac KAPADIA Start: 06-28-2009 Vasectomy Mac KAPADIA Start: 06-28-1966 Appendectomy Mac KAPADIA Carpal tunnel syndro me (disorder) Mac BOYER Colonoscopy Mac BOYER Plan of Treatment Date Care Activity Detail Author Start: 02-26-2023 Influenza vaccination C [facility] Start: 06-28-2022 ADVANCE DIRECTIVE DISCUSSION ADVANCE DIRECTIVE DISCUSSION [facility] Start: 06-28-2022 DEPRESSION ASSESSMENT DEPRESSION ASS ESSMENT [facility] Start: 2019 PNEUMOCOCCAL: 65+ (1 - PCV) PNEUMOCOCCAL: 65+ (1 - PCV) [facility] Start: 07-08-2015 Shingrix Vaccine (2 of 3) Shingrix Vaccine (2 of 3) [facility] Start: 2014 RSV Vaccine (1 - 1-d ose 60+ series) RSV Vaccine (1 - 1-dose 60+ series) [facility] Start: 01-02-2004 SHINGRIX VACCINE (1 of 2) SHINGRIX VACCINE (1 of 2) [facility] Start: 1999 COLOGUARD (FIT-DNA) COLOGUARD (FIT-D NA) [facility] Start: 1999 Colonoscopy COLONOSCOPY [facility] Start: 1999 COLORECTAL CANCER SCREENING COLORECTAL CANCER SCREENING [facility] Start: [address] COLONOGRAPHY [facility] Start: 1999 DIABETES SCREEN DIABETES SCREEN [facility] Start: 1999 Diabetes Screening Diabetes Screenin g [facility] Start: 1999 FECAL OCCULT BLOOD FECAL OCCULT BLOO D [facility] Start: 1999 SIGMOIDOSCOPY SIGMOIDOSCOPY [facility] Start: 1989 Lipid 1996 panel - S velma or Plasma Lipid Screening [facility] Start: 1989 LIPID SCREEN LIPID SCREEN [facility] Start: 1973 Urine microalbumin profile [facility] Start: 01-02-1972 HEPATITIS C SCREENING HEPATITIS C BRUCE VIVEROS [facility] Start: 1954 COVID-19 VACCINE (#1) COVID-19 VACCI NE (#1) [facility] Start: 1954 Abdominal Aortic Aneurysm Screening Abdominal Aortic Aneurysm Screening [facility] End: 05-12-2024 XR HIP BILATERAL 5V PEL/AP/LAT EACH HIP XR HIP BILATERAL 5V PEL/AP/LAT EACH HIP Radiology Routine Bilateral hip joint arthritis 1 Occurrences starting 04/13/2023 until 05/12/2024 [facility] Work Phone: Comment on above: 1 Occurrences starti ng 04/13/2023 until 05/12/2024 [facility] Immunizations Immunization Date Immunization Notes Care Provider Fa cility 04-03-2022 influenza virus vaccine, unspecified formulation Laila Pan PA-C Work Phone: [facility] 04-10-2020 influenza virus vaccine, unspecified formulation Mac BOYER [facility] NEGATED: Highlighted row has not occurred!08-18-2021 SARS-CoV-2 (COVID-19) Ad26 vaccine, recombinant Mac BOYER [facility] Payers Date Payer Category Payer Self-pay 2021 Unknown MMO MMO MEDICARE SUPPLEMENT [id number] 2021-Present [phone] [address] [place] [address] Indemnity [id number] 2018 Medicare MEDICARE MEDICAR E A AND B [id number] 2018-Present [phone] [address] [address] [place] [address] Medicare [id number] 1959 Medicare [id number] 1959 Unknown [id number] 1954 Unknown [id number] 2.16.840.1.982424.3.579.2.593 1954 Unknown [id number] 2.16.840.1.914928.3.579.2.593 1954 Unknown [id number] 2.16.840.1.975466.3.579.2.593 1954 Unknown [id number] 2.16.840.1.445474.3.579.2.593 1954 Unknown [id number] 2.16.840.1.054410.3.579.2.593 1954 Unknown [id number] 2.16.840.1.825452.3.579.2.593 1954 Unknown [id number] 2.16.840.1.134138.3.579.2.593 1954 Unknown [id number] 2.16.840.1.154774.3.579.2.593 1954 Unknown [id number] 2.16.840.1.401052.3.579.2.593 1954 Unknown [id number] 2.16.840.1.871808.3.579.2.593 1954 Unknown [id number] 2.16.840.1.342686.3.579.2.593 1954 Unknown [id number] 2.16.840.1.063823.3.579.2.593 1954 Unknown [id number] 2.16.840.1.893604.3.579.2.593 1954 Unknown [id number] 2.16.840.1.662298.3.579.2.593 1954 Unknown [id number] 2.16.840.1.782057.3.579.2.593 1954 Unknown [id number] 2.16.840.1.176686.3.579.2.727 1954 Unknown [id number] 2.16.840.1.893643.3.579.2.727 1954 Unknown [id number] 2.16.840.1.036832.3.579.2.727 1954 Unknown [id number] 2.16.840.1.231136.3.579.2.1259 1954 Unknown [id number] 2.16.840.1.043520.3.579.2.1259 1954 Unknown [id number] 2.16.840.1.252376.3.579.2.1259 1954 Unknown [id number] 2.16.840.1.371083.3.579.2.1259 Unknown [id number] 2.16.840.1.337969.3.579.2.531 Social History Date Type Detail Facility Start: 05-05-2021 End: 04-15-2023 Ex-smoker (finding) [facility] Start: 04-13-2023 End: 04-15-2023 Male [facility] Start: 1955 Sex Assigned At Male F [facility] consumption unknown [facility] Start: 02-02-2023 Gender identity Identifies as male gender (finding) [facility] Start: 02-02-2023 Sexual orientation Heterosexual (fin ding) [facility] History of tobacco use Current smoker [facility] Work Phone: History of tobacco use Cigarette Smoker [facility] Work Phone: Start: 04-13-2023 End: 04-15-2023 History of Social function [facility] Adult Depression Screening Assessment 1 [facility] Functional Status Date Assessment Result Facility 06-01-2022 Functional Status N/A [facility] 02-16-2022 N/A [facility] Clinical Notes 02-16-2022 to 04-13-2023 Patient InstructionsLaila Pan PA-C - 04/13/2023 11:00 AM Laila Panda PA-C - 02/12/2023 12:54 PM EDTManfredMookie narayan P - 01/28/2023 10:41 AM EDT Note Date & Type Note Facility 04-13-2023 Note HNO ID: [id number] Author: Laila Pan PA-C Service: ? Author Type: Physician Pick Pulling Machine Operator Type: Progress Notes Filed: 04/15/2023 1:53 PM Note Text: SPINE SURGERY OUTPATIENT CONSULT This is an in-person visit. SERVICE DATE: 04/13/2023 PCP: No primary care provider on file. REFERRING PROVIDER: SELF Consult requested for an opinion regarding the evaluation and treatment of lumbar spine. My final impression and recommendations will be communicated back to the requesting physician by way of the shared medical record or letter via US mail. SUBJECTIVE Lawson Vela is a 68 year old male presenting DIL. HISTORY OF PRESENT ILLNESS DURATION OF SYMPTOMS: . Industrial accident. No surgery, had injections and injections which helped. On and off since then. 14 months ago, he was leaning forward and felt sever back pain that was not resolved with normal techniques Patient reports low back pain described as aching to crampin in right low back. Radiation: Right buttocks- Right medial thigh Numbness/Tingling: no Weakness: Right hip flexors Gait Difficulty/LOB: yes Falling: Yes- LOB, feels like give out Loss of Bowel or Bladder: BPH, chronic concerns Smoking Status: No, quit smoking 1975 BMI: 33.51 PAIN EVALUATION 04/13/2023 0843 04/13/2023 1102 Pain Level: 3 3 Pain Location: Leg-Right Back-Lower down his right side behind his thigh Description: Stabbing Sharp;Throbbing;Aching;Burning Duration Amount of Time: 40 1 Duration Units: Months Years Frequency: Continuous Continuous gets worse when he walks or stands for long Intervention/Comfort measure: Medication;Reposition;Relaxatio n;Cold;Exercise;Heat;Massage;Pi llow support;Positioning -- Comments: Pain management; steroid injections has been pain manegment but is not seeing any changes in the pain AMBULATORY STATUS: Independent Community Distances ANTIPLATELET OR ANTICOAGULATION STATUS: No PREVIOUS CONSERVATIVE TREATMENTS: See below Aquatic Therapy: 3 months ago which helped, will start it again. 3 days a week. 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 Injections: RFAs-helped with left leg Intraarticular hip injection-caused patient to jump off table, did reduce pain minimally PREVIOUS SPINAL SURGERY: None There is no problem list on file for this patient. No past medical history on file. PAST SURGICAL HISTORY Procedure Laterality Date APPENDECTOMY REVISE MEDIAN N/CARPAL TUNNEL SURG Right VASECTOMY No family history on file. Social History Tobacco Use Smoking status: Former Types: Cigarettes ALLERGIES No Known Allergies MEDICATIONS: tamsulosin (FLOMAX) 0.4 mg Take 0.4 mg by mouth. finasteride (PROSCAR) 5 mg tablet Take 5 mg by mouth. solifenacin 10 mg tablet 1 (one) time each day at the same time. tiZANidine (ZANAFLEX) 4 mg tablet 1 tablet as needed Orally at bedtime for 30 days Irbesartan-hydroCHLOROthiazide 150-12.5 mg per tablet Take by mouth. meloxicam (MOBIC) 7.5 mg tablet Take 7.5 mg by mouth. HYDROcodone-acetaminophen (NORCO) 5-325 mg per tablet REVIEW OF SYSTEMS: Review of Systems Constitutional: Negative Eyes: Negative Hent: Negative Cardiovascular Positive for Lightheadedness and Leg pain with walking Negative for Chest Pain Respiratory Positive for SOB with exertion Negative for SOB at rest, Cough, Wheezing and Snoring GI: Negative Positive for Urgency and Incontinence Musculoskeletal Positive for Back Pain and Muscle Pain Neurologic Positive for Numbness/Tingling and Weakness Patient's Review of Systems has been reviewed with the patient and updated as appropriate. Patient Entered Questionnaires Spine Questions 04/13/2023 Pain Location: Leg Pain Duration: More than 5 years Pain over last 6 months: Every day or nearly every day in the past 6 months Symptoms from neck/cervical spine: No Employment Status: Retired Involved in law suit/legal claim: No PROMIS Score Percentiles Physical Health 04/13/2023 Physical Function Percentile 8 Sleep Percentile 8 Fatigue Percentile 1 Pain Interference Percentile 2 PROMIS SOCIAL ROLE SCORE 04/13/2023 Social Role Satisfaction Percentile 4 PROMIS Global Health Scale 04/13/2023 Physical Health Percentile 2 Mental Health Percentile 13 Percentiles provide an indication of how the patient's score ranks in relation to the general population. Higher percentile rankings indicate better function/quality of life. 50th percentile is the average of the general population and indicates half of respondents had a worse score. Depression Screening: PHQ-9 04/13/2023 Score 2 PHQ-9 Self-harm Question 04/13/2023 Thoughts that you would be better off , or of hurting yourself in some way 0 PHQ-9 Self-Harm (Item 9) response options: 0 Not at all 1 Several days 2 More (more content not included)... [facility] 04-13-2023 Instructions Laila Pan PA-C - 04/13/2023 11:08 AM EDT -Recommend seeing Ortho for hip evaluation, please send in their recommendations -Send in Pain management records, can take picture and upload on mychart or fax -Once I review above, will determine next steps, most likely will be a Right L2/3 TFESI diagnostic. -If no relief with injection or nothing to do with the hips, consider CT SPECT (Discussed CT Spect to better assess asymmetric lower lumbar/sacral spine, which could be attributing to pt's mechanical back pain. CT SPECT to assess profuse arthritic and degenerative changes, and etiology of pain. If there is uptake on imaging, may recommend diagnostic injection. The brighter the orange color the greater the degree of inflammation which is considered uptake). Laila Pan PA-C [phone] documented in this encounter [facility] 04-13-2023 History of Presen t illness Narrative Images from the original note were not included. SPINE SURGERY OUTPATIENT CONSULT This is an in-person visit. SERVICE DATE: 04/13/2023 PCP: No primary care provider on file. REFERRING PROVIDER: SELF Consult requested for an opinion regarding the evaluation and treatment of lumbar spine. My final impression and recommendations will be communicated back to the requesting physician by way of the shared medical record or letter via [place] mail. SUBJECTIVE Lawson Vela is a 68 year old male presenting DIL. HISTORY OF PRESENT ILLNESS DURATION OF SYMPTOMS: . Industrial accident. No surgery, had injections and injections which helped. On and off since then. 14 months ago, he was leaning forward and felt sever back pain that was not resolved with normal techniques Patient reports low back pain described as aching to crampin in right low back. Radiation: Right buttocks- Right medial thigh Numbness/Tingling: no Weakness: Right hip flexors Gait Difficulty/LOB: yes Falling: Yes- LOB, feels like give out Loss of Bowel or Bladder: BPH, chronic concerns Smoking Status: No, quit smoking 1975 BMI: 33.51 PAIN EVALUATION 04/13/2023 0843 04/13/2023 1102 Pain Level: 3 3 Pain Location: Leg-Right Back-Lower down his right side behind his thigh Description: Stabbing Sharp;Throbbing;Aching;Burning Duration Amount of Time: 40 1 Duration Units: Months Years Frequency: Continuous Continuous gets worse when he walks or stands for long Intervention/Comfort measure: Medication;Reposition;Relaxatio n;Cold;Exercise;Heat;Massage;Pi llow support;Positioning -- Comments: Pain management; steroid injections has been pain manegment but is not seeing any changes in the pain AMBULATORY STATUS: Independent Community Distances ANTIPLATELET OR ANTICOAGULATION STATUS: No PREVIOUS CONSERVATIVE TREATMENTS: See below Aquatic Therapy: 3 months ago which helped, will start it again. 3 days a week. 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 Injections: RFAs-helped with left leg Intraarticular hip injection-caused patient to jump off table, did reduce pain minimally PREVIOUS SPINAL SURGERY: None There is no problem list on file for this patient. No past medical history on file. PAST SURGICAL HISTORY Procedure Laterality Date APPENDECTOMY REVISE MEDIAN N/CARPAL TUNNEL SURG Right VASECTOMY No family history on file. Social History Tobacco Use Smoking status: Former Types: Cigarettes ALLERGIES No Known Allergies MEDICATIONS: tamsulosin (FLOMAX) 0.4 mg Take 0.4 mg by mouth. finasteride (PROSCAR) 5 mg tablet Take 5 mg by mouth. solifenacin 10 mg tablet 1 (one) time each day at the same time. tiZANidine (ZANAFLEX) 4 mg tablet 1 tablet as needed Orally at bedtime for 30 days Irbesartan-hydroCHLOROthiazide 150-12.5 mg per tablet Take by mouth. meloxicam (MOBIC) 7.5 mg tablet Take 7.5 mg by mouth. HYDROcodone-acetaminophen (NORCO) 5-325 mg per tablet REVIEW OF SYSTEMS: Review of Systems Constitutional: Negative Eyes: Negative Hent: Negative Cardiovascular Positive for Lightheadedness and Leg pain with walking Negative for Chest Pain Respiratory Positive for SOB with exertion Negative for SOB at rest, Cough, Wheezing and Snoring GI: Negative Positive for Urgency and Incontinence Musculoskeletal Positive for Back Pain and Muscle Pain Neurologic Positive for Numbness/Tingling and Weakness Patient's Review of Systems has been reviewed with the patient and updated as appropriate. Patient Entered Questionnaires Spine Questions 04/13/2023 Pain Location: Leg Pain Duration: More than 5 years Pain over last 6 months: Every day or nearly every day in the past 6 months Symptoms from neck/cervical spine: No Employment Status: Retired Involved in law suit/legal claim: No PROMIS Score Percentiles Physical Health 04/13/2023 Physical Function Percentile 8 Sleep Percentile 8 Fatigue Percentile 1 Pain Interference Percentile 2 PROMIS SOCIAL ROLE SCORE 04/13/2023 Social Role Satisfaction Percentile 4 PROMIS Global Health Scale 04/13/2023 Physical Health Percentile 2 Mental Health Percentile 13 Percentiles provide an indication of how the patient's score ranks in relation to the general population. Higher percentile rankings indicate better function/quality of life. 50th percentile is the average of the general population and indicates half of respondents had a worse score. Depression Screening: PHQ-9 04/13/2023 Score 2 PHQ-9 Self-harm Question 04/13/2023 Thoughts that you would be better off , or of hurting yourself in some way 0 PHQ-9 Self-Harm (Item 9) response options: 0 Not at all 1 Several days 2 More than half the days 3 Nearly every day PHQ-9 Levels: 0-4 No to mild depression 5-9 Mild depression 10-14 Moderate depression 15-19 Moderately severe depression 20-27 Severe depression OBJECTIVE: PHYSICAL EXAM GENERAL APPEARANCE: Well nourished, well developed, and no apparent distress. NEURO PSYCH: Patient oriented to person, place, and time. Mood pleasant. Benign affect. MUSCULOSKELETAL VISUAL INSPECTION CERVICAL: WNL THORACIC: WNL LUMBAR: WNL PALPATION: SPINOUS PROCESS: No pain. PARASPINALS: No pain. MUSCLE BULK: Normal and symmetrical in the upper & lower extremities. MUSCLE TONE: Normal. MOTOR: 5/5 in all muscle groups. SENSORY: Normal sensory exam GAIT: Trendelenburg gait compensated. REFLEXES: +2 to bilateral U/L extremities. STRAIGHT LEG TEST: Ipsilateral: Negative. Contralateral: Negative. NEURO TESTS: RIGHT HIP EXAM: CALEB EXAM: Abnormal TROCHANTERIC BURSA TENDERNESS: Normal GAENSLEN'S MANEUVER: Abnormal JESSICA'S TEST (IT BAND PATHOLOGY): Normal LEFT HIP EXAM: CALEB EXAM: Abnormal TROCHANTERIC BURSA TENDERNESS: Normal GAENSLEN'S MANEUVER: Abnormal JESSICA'S TEST (IT BAND PATHOLOGY): Normal DATA REVIEW [facility] records independently reviewed Imaging and outside records independently reviewed Images independently reviewed with the patient MRI Lumbar: Narrative PERFORMED AT [facility] LOCATION:[facility] CLINICAL HISTORY: Low back pain extending into the right lower extremity. COMPARISON: 05/01/2022 TECHNIQUE: Multiplanar MR imaging of the lumbar spine was performed. FINDINGS: The spine is visualized from the F58-[id number] levels on the sagittal sequences, assuming a lumbarized S1 segment; as on the prior study). The lower visualized spinal cord and conus medullaris are normal in signal, caliber and position. The vertebral body heights, alignment, visualized bone marrow signal and paraspinous soft tissues are unremarkable. At the T11-T12 and T12-L1 levels, there is mild diffuse disc bulging and hypertrophic facet and ligamentum flavum changes, without central spinal stenosis, neural foraminal narrowing, or significant disc herniation. At the L2-L3 level, there is moderate diffuse disc bulging and mild hypertrophic facet and ligamentum flavum changes, with mild central spinal stenosis and left lateral recess narrowing. At the L3-L4 and L4-L5 levels, there is moderate diffuse disc bulging with a small broad-based foraminal disc protrusions, and moderate hypertrophic facet and ligamentum flavum changes, which results in moderate central spinal stenosis and neural foraminal narrowing. At the L5-S1 level, there is [id number] diffuse disc bulging and moderate hypertrophic facet changes, which results in moderate to marked neural foraminal narrowing. Procedure Note CONVERSION, GENERIC - 11/13/2022 PERFORMED AT [facility] LOCATION:[facility] CLINICAL HISTORY: Low back pain extending into the right lower extremity. COMPARISON: 05/01/2022 TECHNIQUE: Multiplanar MR imaging of the lumbar spine was performed. FINDINGS: The spine is visualized from the [id number] levels on the sagittal sequences, assuming a lumbarized S1 segment; as on the prior study). The lower visualized spinal cord and conus medullaris are normal in signal, caliber and position. The vertebral body heights, alignment, visualized bone marrow signal and paraspinous soft tissues are unremarkable. At the T11-T12 and T12-L1 levels, there is mild diffuse disc bulging and hypertrophic facet and ligamentum flavum changes, without central spinal stenosis, neural foraminal narrowing, or significant disc herniation. At the L2-L3 level, there is moderate diffuse disc bulging and mild hypertrophic facet and ligamentum flavum changes, with mild central spinal stenosis and left lateral recess narrowing. At the L3-L4 and L4-L5 levels, there is moderate diffuse disc bulging with a small broad-based foraminal disc protrusions, and moderate hypertrophic facet and ligamentum flavum changes, which results in moderate central spinal stenosis and neural foraminal narrowing. At the L5-S1 level, there is [id number] diffuse disc bulging and moderate hypertrophic facet changes, which results in moderate to marked neural foraminal narrowing. 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 Report reported and signed by James Vizcaino on 10/19/2022 1406 CONVERSION, GENERIC - 11/14/2022 PERFORMED AT [facility] LOCATION:[place] 112 110 EXAMINATION: XR HIPS JAIRO 3_4V WO PELVIS HISTORY: Bilateral hip joint pain COMPARISON: No relevant comparison available. FINDINGS: RIGHT FINDINGS: BONES: No acute fracture or dislocation. Moderate osteoarthritis with joint space narrowing and marginal osteophyte formation SOFT TISSUES: Negative. No visible soft tissue swelling. OTHER: Negative. LEFT FINDINGS: BONES: No acute fracture or dislocation. Moderate osteoarthritis with joint space narrowing and marginal osteophyte formation SOFT TISSUES: Negative. No visible soft tissue swelling. OTHER: Negative. IMPRESSION: RIGHT CONCLUSION: Moderate osteoarthritis LEFT CONCLUSION: Moderate osteoarthritis Electronically authenticated by: DEVIN KNAPP Date: 2022-11-13 13:07 ASSESSMENT/PLAN (M48.062) Spinal stenosis, lumbar region with neurogenic claudication (primary encounter diagnosis) (M16.0) Bilateral hip joint arthritis Lawson Vela has a condition that requires further workup. -Recommend seeing Ortho for hip evaluation, please send in their recommendations -Send in Pain management records, can take picture and upload on mychart or fax -Once I review above, will determine next steps, most likely will be a Right L2/3 TFESI diagnostic. Trying to determine if focal operation can be done vs long construct. -If no relief with injection or nothing to do with the hips, consider CT SPECT (Discussed CT Spect to better assess asymmetric lower lumbar/sacral spine, which could be attributing to pt's mechanical back pain. CT SPECT to assess profuse arthritic and degenerative changes, and etiology of pain. If there is uptake on imaging, may recommend diagnostic injection. The brighter the orange color the greater the degree of inflammation which is considered uptake). Medical Decision Making: Problems: Moderate: 1+ chronic illnesses with change Data: Unique test result(s) reviewed: 1 Unique test(s) ordered: 1 Independent interpretation of test from other physician/QHCP Medical Decision Making Level: 4 - Moderate SIGNATURE: Laila Pan PA-C PATIENT NAME: Lawson Vela DATE: April 13, 2023 TIME: 8:55 AM PAGER: documented in this encounter [facility] 02-12-2023 Note HNO ID: [id number] Author: Laila Pan PA-C Service: ? Author Type: Physician Pick Pulling Machine Operator Type: Progress Notes Filed: 02/12/2023 12:58 PM Note Text: Per Triage: Lawson Vela is a 68 year old male that requests evaluation of lumbar spine. Per review, they have symptoms of LBP into left leg pain. Positive for numbness, difficulty walking and weakness. 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 COMPARISON: 05/01/2022 TECHNIQUE: Multiplanar MR imaging of the lumbar spine was performed. FINDINGS: The spine is visualized from the [id number] levels on the sagittal sequences, assuming a lumbarized S1 segment; as on the prior study). The lower visualized spinal cord and conus medullaris are normal in signal, caliber and position. The vertebral body heights, alignment, visualized bone marrow signal and paraspinous soft tissues are unremarkable. At the T11-T12 and T12-L1 levels, there is mild diffuse disc bulging and hypertrophic facet and ligamentum flavum changes, without central spinal stenosis, neural foraminal narrowing, or significant disc herniation. At the L2-L3 level, there is moderate diffuse disc bulging and mild hypertrophic facet and ligamentum flavum changes, with mild central spinal stenosis and left lateral recess narrowing. At the L3-L4 and L4-L5 levels, there is moderate diffuse disc bulging with a small broad-based foraminal disc protrusions, and moderate hypertrophic facet and ligamentum flavum changes, which results in moderate central spinal stenosis and neural foraminal narrowing. At the L5-S1 level, there is cqre-rc-qxfiaipb diffuse disc bulging and moderate hypertrophic facet changes, which results in moderate to marked neural foraminal narrowing. Procedure Note CONVERSION, GENERIC - 11/13/2022 PERFORMED AT [facility] LOCATION:[facility] CLINICAL HISTORY: Low back pain extending into the right lower extremity. COMPARISON: 05/01/2022 TECHNIQUE: Multiplanar MR imaging of the lumbar spine was performed. FINDINGS: The spine is visualized from the T27-A8-Q1 levels on the sagittal sequences, assuming a lumbarized S1 segment; as on the prior study). The lower visualized spinal cord and conus medullaris are normal in signal, caliber and position. The vertebral body heights, alignment, visualized bone marrow signal and paraspinous soft tissues are unremarkable. At the T11-T12 and T12-L1 levels, there is mild diffuse disc bulging and hypertrophic facet and ligamentum flavum changes, without central spinal stenosis, neural foraminal narrowing, or significant disc herniation. At the L2-L3 level, there is moderate diffuse disc bulging and mild hypertrophic facet and ligamentum flavum changes, with mild central spinal stenosis and left lateral recess narrowing. At the L3-L4 and L4-L5 levels, there is moderate diffuse disc bulging with a small broad-based foraminal disc protrusions, and moderate hypertrophic facet and ligamentum flavum changes, which results in moderate central spinal stenosis and neural foraminal narrowing. At the L5-S1 level, there is uzek-qs-rmkmxoaj diffuse disc bulging and moderate hypertrophic facet changes, which results in moderate to marked neural foraminal narrowing. 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 Report reported and signed by James Vizcaino on 10/19/2022 1409 Disposition: Please schedule with Laila. [facility] 02-12-2023 History of Presen t illness Narrative Per Triage: Lawson Vela is a 68 year old male that requests evaluation of lumbar spine. Per review, they have symptoms of LBP into left leg pain. Positive for numbness, difficulty walking and weakness. 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 COMPARISON: 05/01/2022 TECHNIQUE: Multiplanar MR imaging of the lumbar spine was performed. FINDINGS: The spine is visualized from the N91-C2-K6 levels on the sagittal sequences, assuming a lumbarized S1 segment; as on the prior study). The lower visualized spinal cord and conus medullaris are normal in signal, caliber and position. The vertebral body heights, alignment, visualized bone marrow signal and paraspinous soft tissues are unremarkable. At the T11-T12 and T12-L1 levels, there is mild diffuse disc bulging and hypertrophic facet and ligamentum flavum changes, without central spinal stenosis, neural foraminal narrowing, or significant disc herniation. At the L2-L3 level, there is moderate diffuse disc bulging and mild hypertrophic facet and ligamentum flavum changes, with mild central spinal stenosis and left lateral recess narrowing. At the L3-L4 and L4-L5 levels, there is moderate diffuse disc bulging with a small broad-based foraminal disc protrusions, and moderate hypertrophic facet and ligamentum flavum changes, which results in moderate central spinal stenosis and neural foraminal narrowing. At the L5-S1 level, there is mnvi-lu-uhuncqde diffuse disc bulging and moderate hypertrophic facet changes, which results in moderate to marked neural foraminal narrowing. Procedure Note CONVERSION, GENERIC - 11/13/2022 PERFORMED AT [facility] LOCATION:[facility] CLINICAL HISTORY: Low back pain extending into the right lower extremity. COMPARISON: 05/01/2022 TECHNIQUE: Multiplanar MR imaging of the lumbar spine was performed. FINDINGS: The spine is visualized from the E02-Q9-J4 levels on the sagittal sequences, assuming a lumbarized S1 segment; as on the prior study). The lower visualized spinal cord and conus medullaris are normal in signal, caliber and position. The vertebral body heights, alignment, visualized bone marrow signal and paraspinous soft tissues are unremarkable. At the T11-T12 and T12-L1 levels, there is mild diffuse disc bulging and hypertrophic facet and ligamentum flavum changes, without central spinal stenosis, neural foraminal narrowing, or significant disc herniation. At the L2-L3 level, there is moderate diffuse disc bulging and mild hypertrophic facet and ligamentum flavum changes, with mild central spinal stenosis and left lateral recess narrowing. At the L3-L4 and L4-L5 levels, there is moderate diffuse disc bulging with a small broad-based foraminal disc protrusions, and moderate hypertrophic facet and ligamentum flavum changes, which results in moderate central spinal stenosis and neural foraminal narrowing. At the L5-S1 level, there is zrid-ya-syzmxphx diffuse disc bulging and moderate hypertrophic facet changes, which results in moderate to marked neural foraminal narrowing. 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 Report reported and signed by James Vizcaino on 10/19/2022 1406 Disposition: Please schedule with Laila. Patient name: Lawson Vela Are you being referred by a [facility] Provider or Pain Management Provider at [facility]? No If answer is YES please schedule directly with surgeon, triage does not need to be completed. Is this a self-referral Yes If not, who is the Referring Provider Is this a 2nd opinion? Yes Were you offered surgery? Yes MRI/CT/myelogram within 12 months? Yes If NO , please refer to medical spine or PCP to complete above imaging, triage does not need to be completed If YES, please ask for the name/address of the facility where the MRI/CT/myelogram was completed: [facility] Imaging Address: [address] [place] [address] [facility] Address: [address] [id number] MRI/CT/myelogram viewable in Epic: No If not, please provide [phone] to fax in imaging reports for review. Also, please inform patient to hand carry imaging disc to appointment. XR (spine) within 12 months: No If YES, please ask for the name/address of the facility where the XR was completed: Dr. Rogel's patients: Have you had previous EMG/Nerve Conduction Study, Ultrasound, or MRI for these same symptoms? If YES, please ask for the name/address of the facility where they were completed: Requested provider (First and Last name): Camron Monroe Are you interested in a virtual visit if offered? No 1. Where are you having symptoms related to this visit? LBP Sciatic pain (L) Hip pain, Buttocks pain Numbness toes (R) Back pain Yes Leg pain Yes Arm pain No Neck pain No 2. Are you having any of the following symptoms: Difficulty walking Yes Numbness Yes Weakness Yes Trouble using your hands? No 3. Have you had any injections or physical therapy in the last 12 months? Yes If YES then please ask for the name/address of the facility where the injections and/or physical therapy was completed PT Injections [facility] Address: [address] [place] [address] Have you tried any other kinds of non-surgical treatments in the last 12 months? (For example: NSAIDS, muscle relaxants, analgesics, oral steroids, Chiropractor, Acupuncture): Chiropractor 4. Are you currently taking daily prescribed narcotic medications for your current symptoms (For example Oxycodone, Hydrocodone, Tramadol, Morphine, Other)? Yes Hydrocodone 5. Have you had previous spinal surgery for this same symptoms? No If YES please ask for the name of facility/address of where the surgery was completed: Additional Comments [phone] (Home Phone) documented in this encounter [facility] 01-28-2023 Note HNO ID: [id number] Author: Mookie Lee Service: ? Author Type: ? Type: Progress Notes Filed: 02/12/2023 12:58 PM Note Text: Patient name: Lawson Vela Are you being referred by a [place] [facility] Provider or Pain Management Provider at [facility]? No If answer is YES please schedule directly with surgeon, triage does not need to be completed. Is this a self-referral Yes If not, who is the Referring Provider Is this a 2nd opinion? Yes Were you offered surgery? Yes MRI/CT/myelogram within 12 months? Yes If NO , please refer to medical spine or PCP to complete above imaging, triage does not need to be completed If YES,? please ask for the name/address of the facility where the MRI/CT/myelogram was completed: [facility] Imaging Address: [address] [place] [address] [facility] Address: [address] [place] [address] MRI/CT/myelogram viewable in Epic: No If not, please provide [phone] to fax in imaging reports for review. Also, please inform patient to hand carry imaging disc to appointment. XR (spine) within 12 months: No If YES,? please ask for the name/address of the facility where the XR was completed: Dr. Rogel's patients: Have you had previous EMG/Nerve Conduction Study, Ultrasound, or MRI for these same symptoms? If YES,? please ask for the name/address of the facility where they were completed: Requested provider (First and Last name): Camron Monroe Are you interested in a virtual visit if offered? No 1. Where are you having symptoms related to this visit? LBP Sciatic pain (L) Hip pain, Buttocks pain Numbness toes (R) Back pain Yes Leg pain Yes Arm pain No Neck pain No 2. Are you having any of the following symptoms: Difficulty walking Yes Numbness Yes Weakness Yes Trouble using your hands? No 3. Have you had any injections or physical therapy in the last 12 months? Yes If YES then please ask for the name/address of the facility where the injections and/or physical therapy was completed PT Injections [facility] Address: [address] [place] [address] Have you tried any other kinds of non-surgical treatments in the last 12 months? (For example: NSAIDS, muscle relaxants, analgesics, oral steroids, Chiropractor, Acupuncture): Chiropractor 4. Are you currently taking daily prescribed narcotic medications for your current symptoms (For example Oxycodone, Hydrocodone, Tramadol, Morphine, Other)? Yes Hydrocodone 5. Have you had previous spinal surgery for this same symptoms? No If YES? please ask for the name of facility/address of where the surgery was completed: Additional Comments [phone] (Home Phone) [facility] 12-17-2022 Evaluation note Encounter Date Diagnosis Assessment Notes Nov, Lumbar radiculopathy (ICD-10 - M54.16) I reviewed imaging with Dr Jenkins and independently reviewed the MRI of lumbar spine face to face with patient that shows L4-L5, L5-S1 disc moderate foramen stenosis with moderate disc hernation. WIll order Lumbar 6 v. Will Continue with pharmacological management as prescribed we will add lidocaine patches and a prednisone taper. Advised not to take any delg-plw-jicgmcd ibuprofen while taking prednisone. OARRS reviewed . Will get FRANSISCO from pain managment and physical therapy. Will follow-up in [address] Anand. Medical decision making shows a new problem to me with further workup planned or suggested with the potential for extensive treatment options that were considered with the most applicable given this patient's situation as noted above. Treatment options considered include a combination of physical therapy approaches, pharmacologic management, and interventional procedures. Those most applicable to the patient were discussed at this time. Risk of complications and/or morbidity and mortality is high given that acute and chronic pain poses a threat to life and bodily function if undertreated, poorly treated or with failure to maintain adequate treatment and timely follow up. Given the serious and fluctuating nature of pain with extensive consideration for whenever pain changes, there always remains the possibility of prolonged functional impairment requiring constant patient reassessment and high-level medical decision making. The amount and complexity of data reviewed is high given that patient labs, radiology reports, and other test were obtained, reviewed and summarized as applicable from the physician portal and/or outside medical records. Pertinent positive and negative findings were considered in medical decision-making. Nov, Right leg pain (ICD-10 - M79.604) Nov, Depression screening (ICD-10 - Z13.31) PHQ reviewed score 0 negative screening Nov, Encounter for screening for tobacco use (ICD-10 - Z01.89) Screening reviewed quit 1976 Nov, BMI 38.0-38.9,adult (ICD-10 - Z68.38) Education completed 1lb is 4-6 pounds of pressure on the spine, education on diet, decrease sugar intake. [facility] Other 05-16-2023 NoteCONSULTATION CONSULTATION DATE: 11/10/2022 TO: Javad Donato M.D. CHIEF COMPLAINT: Patient was checked today complaining of pain occurring in his bilateral hip area and buttock area, worse on the right than the left side. HISTORY: He reports the pain as being 5-7/10 pain, sharp in character with a burning component. He reports the skin overlying the area is sensitive to light touch, more sensitive on the right than the left side, over his right buttock and hip area, compared to the left side. He also reports pain increases with activities such as standing, walking and performing transitioning maneuvers, and he feels most comfortable in the semi-recumbent position. Denies any change in bowel and bladder habits or new sensorimotor changes in the lower extremities. EXAM: Notable for patient having positive bilateral FABERs sign, more significant on the right than the left side, associated with joint related pain clinically, as well as dysesthesia and hyperesthesia overlying the distribution of the lateral cutaneous branch of the iliohypogastric nerve, appeared to be more dramatic on the right than the left side. This is associated with myofascial spasm of the gluteus medius muscle bilaterally. IMPRESSION: Our impression is patient with chronic pain secondary to possible bilateral hip joint related pain clinically. RECOMMENDATIONS: I have recommended obtaining bilateral hip films. I have asked him to discontinue Mobic. Currently, patient on ibuprofen 800 mg t.i.d. and will see the patient back in the office after he undergoes the imaging studies. As part of providing excellent, safe, comprehensive care, the following was completed at our patient's visit: 1. A medication reconciliation and review to ensure accurate knowledge of current/active medications, including asking our patients to inform us about any tmpg-pbs-wnqpwwg medications or herbal remedies/nutritional supplements/alternative remedies. 2. A review to specifically ensure our patients have had annual screening for: elevated body mass index (BMI, see intake chart for exact total), tobacco use, screening for depression, and screening for unhealthy alcohol use. When screening is concerning, patients are provided with education and the specific recommendation to discuss the concerning health issue and treatment options with their primary care provider.[id number] Note CONSULTATION CONSULTATION DATE: 10/08/2022 TO: Javad Donato M.D. CHIEF COMPLAINT: Includes right leg pain. HISTORY: He reports the pain as being sharp in character with a burning component, not just in his leg, but also his right gluteal area, and otherwise increased with activity such as standing, walking and performing transitioning maneuvers. He feels most comfortable in the semi-recumbent position. Denies any change in bowel and bladder habits or new sensorimotor changes in the lower extremities. EXAM: Notable for patient having hypoesthesia along the right L5 dermatome, weakness of the right EHL. Straight leg raise equivocally positive, approximately 90 degrees. He had no clinical radiculopathy on examination on today's visit. Patient did have dysesthesia and hyperesthesia long the distribution of the lateral cutaneous branch of the iliohypogastric nerve on the right side. It is associated with myofascial spasm, which is quite severe, of the right gluteus medius and right lumbar paravertebral muscles. IMPRESSION: Our impression is patient with chronic pain, recent flare, failed conservative therapy with the use of nonsteroidal agent, mainly the use of Mobic, an independent exercise program, activity modification. Despite this, the pain has been progressive in his right lower extremity. RECOMMENDATIONS: I recommend a lumbosacral MRI without contrast. Will provide him with Valium to be used pre-imaging as he has claustrophobia. I have started him on Zonegran 50 mg pills, 1-2 at h.s. as tolerated. We will see him back in the office in 4-6 weeks' time. Also, of note, his SMITA was 31. As part of providing excellent, safe, comprehensive care, the following was completed at our patient's visit: 1. A medication reconciliation and review to ensure accurate knowledge of current/active medications, including asking our patients to inform us about any rwhn-zdj-jucylkk medications or herbal remedies/nutritional supplements/alternative remedies. 2. A review to specifically ensure our patients have had annual screening for: elevated body mass index (BMI, see intake chart for exact total), tobacco use, screening for depression, and screening for unhealthy alcohol use. When screening is concerning, patients are provided with education and the specific recommendation to discuss the concerning health issue and treatment options with their primary care provider.[facility] [id number] Note CONSULTATION CONSULTATION DATE: 09/10/2022 HISTORY: This is a pleasant, 67-year-old gentleman who returns to the clinic, status post radiofrequency ablation bilaterally of L2, L3 and L4, L5 completed on 08/11/2022. He has received 70% relief thus far, with improvement of his bilateral leg pain. He is complaining of 1/10 pain, described as dull and throbbing bilateral lower lumbar area. Prolonged standing in one place greatly aggravates his pain, and he feels a tightness in that region. Medications include Olancha 5/325 daily, tizanidine 4 mg q.h.s., Mobic 15 mg daily and a vitamin regimen, all by his PCP. Patient's REVIEW OF SYSTEMS / PAST MEDICAL HISTORY / ALLERGIES and IMAGES have been reviewed and noted on the chart. PHYSICAL EXAM: VITAL SIGNS: Blood pressure is 180/85. Heart rate is 92. Temperature is 98. He is 6' tall, weighs 133 kg. GENERAL IMPRESSION: Pleasant, appropriate, in no acute distress. FOCUSED EXAM - BACK: Range of motion is functional in lateral rotation and flexion/extension. Paravertebral muscles are spasmodic with trigger points identified bilateral lower lumbar area. Compression of these trigger areas reproduces the patient's pain symptomatology. MUSCULOSKELETAL: Motor is intact, 5/5 bilaterally. Patient walks unassisted with a stable gait. No muscle atrophy noted. NEUROLOGICAL: Radicular sensory is intact. Negative polyneuropathy. DIAGNOSIS: Bilateral erector spinae spasms, spinal axial lower back pain, lumbar spondylosis and lumbar degenerative disc disease. PLAN: The patient is to restart his tizanidine q.h.s. He is to use a heat rub and heat pad application twice daily. He will receive bilateral lumbar trigger point injections in the clinic, which he does consent to. He will return to the clinic in three months' time unless otherwise indicated.[facility] [id number] NoteCONSULTATION PROCEDURE DATE: 09/10/2022 PREOPERATIVE DIAGNOSIS: Bilateral lumbar spasms. POSTOPERATIVE DIAGNOSIS: Bilateral lumbar spasms. PROCEDURE: Bilateral lumbar trigger point injections. Subsequent to obtaining informed consent, the patient was placed in the upright standing forward flexion position. Alcohol prep was used to sterilize the site. A 25 gauge needle with 0.125% Marcaine and 40 mg of Kenalog was divided into two locations. The needle was placed to rest inside the trigger zone. Negative heme. Medication was injected in each site in a slow fan-like pattern, and patient tolerated the procedure well.[facility] [id number] Note CONSULTATION CONSULTATION DATE: 07/23/2022 HISTORY OF PRESENT ILLNESS: This is a 67-year-old gentleman, who returns to the clinic status post #2 bilateral MBB of L2, L3 and L4, L5 completed on 07/08/2022. The patient was afforded between 80-90% relief for one day. Since that time, he is still having 60% relief. At rest, he reports 1/10 pain. With activity such as standing, walking, pushing, pulling and bending, his pain will increase to 4/10. He will have it down in his lower back, diffusely across, as well as radiating to his buttock. Transitioning positions from sitting to standing is painful. His current medications include Mobic 50 mg daily, Olancha 5/325 per his PCP daily p.r.n. and tizanidine 4 mg q.h.s. The patient does not report any new pain pattern or new vasomotor weakness. He does have a history of hypertension, is currently under the care of his PCP, with ongoing med management. Patient's REVIEW OF SYSTEMS / PAST MEDICAL HISTORY / ALLERGIES and IMAGES have been reviewed and noted on the chart. PHYSICAL EXAM: VITAL SIGNS: Blood pressure 197/98, heart rate is 86. Temperature is 97. He is 6' tall, weighs 130 kg. GENERAL IMPRESSION: Pleasant, appropriate, in no acute distress. FOCUSED EXAM - BACK: Range of motion is guarded in lateral rotation and flexion/extension. Paravertebral muscles are non-spasmodic. Reproduction of patient's spinal axial pain noted to direct compression along the lower lumbar facets with fullness palpated indicative of facet arthropathy, lumbar spondylosis. Pain does not radiate below the knees. Marshall's point non-tender. Negative FABERs and compression test. MUSCULOSKELETAL: Motor is intact, 5/5 bilaterally. Patient walks unassisted with good muscle tone. NEUROLOGICAL: Radicular sensory is intact. +2 patellar and Achilles reflexes. DIAGNOSIS: Spinal axial lower back pain, lumbar degenerative disc disease, lumbar spondylosis. PLAN: We will progress to bilateral lumbar radiofrequency ablation of L2, L3 and L4, L5. The patient is encouraged to continue with his vitamin regimen as well as stretches and heat application. He will be followed up in the office after the procedure.[facility] [id number] NoteCONSULTATION CONSULTATION DATE: 06/25/2022 HISTORY OF PRESENT ILLNESS: This is a pleasant, 67-year-old gentleman who returns to the clinic status post #1 bilateral MBB of L2, L3 and L4, L5 completed on 06/09/2022. The patient states by the following day, he was able to feel 80% relief. He has decreased numbness and tingling to his left lower extremity. He states he normally walks with a cane due to left lower extremity weakness when he goes far, but that has not been necessary since the injection. He has felt so good with increased functionality and endurance; he has been working more outside. He feels he has slightly overdone it, but his back pain stays minimal. Today, his pain is 2/10. With increased activity, it will increase to 4/10. Those activities include standing, walking, lifting, pushing, pulling and bending. He does have a hot tub which he finds greatly beneficial. He does participate in home exercise and stretches. He is compliant with a vitamin regimen and he takes Olancha 5/325 daily p.r.n., and Mobic 15 mg daily, as well as tizanidine 4 mg q.h.s. Patient's REVIEW OF SYSTEMS / PAST MEDICAL HISTORY / ALLERGIES and IMAGES have been reviewed and they are noted in the chart. PHYSICAL EXAM: VITAL SIGNS: Blood pressure initially 203/100 and retake 182/102. Heart rate is 66. Temperature is 97.1. He is 6' tall and weighs 131.5 kg. GENERAL IMPRESSION: Pleasant, appropriate, in no acute distress. Patient does complain of a slight headache. FOCUSED EXAM - BACK: Range of motion is guarded in lateral rotation and flexion/extension. Reproduction of spinal axial pain upon direct compression along the lower lumbar facets of L2, L3 and L4, L5. Marshall's point is non-tender bilaterally. Negative FABERs and compression test. MUSCULOSKELETAL: Motor is 4/5 to the left, 5/5 to the right. Slight muscle weakness noted to left hamstring, quadriceps and anterior tibialis. Extensors are intact. NEUROLOGICAL: Radicular sensory is intact. Negative polyneuropathy. Patellar and Achilles reflexes are +1 bilaterally. . DIAGNOSIS: Lumbar spondylosis, lumbar degenerative disc disease, spinal axial lower back pain. PLAN: We will move forward with the #2 bilateral MBB of L2, L3 and L4, L5. We put a call in to the patient's PCP, Dr. Donato, due to our concern of his blood pressure. He allotted a morning appointment for the patient to be evaluated and patient states he agrees to this. We will follow up with the patient following his procedure here in the office.[facility] [id number] Hospital Discharge instructions Patient Education 06/01/2022 08:22:09 Benign Prostatic Hyperplasia Benign Prostatic Hyperplasia Benign prostatic hyperplasia (BPH) is an enlarged prostate gland that is caused by the normal agingprocess and not by cancer. The prostate is a walnut-sized gland that is involved in the production of semen. It is located in front of the rectum and below the bladder. The bladder stores urine and the urethra is the tube that carries the urine out of the body. The prostate may get bigger as a man gets older. An enlarged prostate can press on the urethra. This can make it harder to pass urine. The build-up of urine in the bladder can cause infection. Back pressure and infection may progress to bladder damage and kidney (renal) failure. What are the causes? This condition is part of a normal aging process. However, not all men develop problems from this condition. If the prostate enlarges away from the urethra, urine flow will not be blocked. If it enlarges toward the urethra and compresses it, there will be problems passing urine. What increases the risk? This condition is more likely to develop in men over the age of 50 years. What are the signs or symptoms? Symptoms of this condition include: Getting up often during the night to urinate. Needing to urinate frequently during the day. Difficulty starting urine flow. Decrease in size and strength of your urine stream. Leaking (dribbling) after urinating. Inability to pass urine. This needs immediate treatment. Inability to completely empty your bladder. Pain when you pass urine. This is more common if there is also an infection. Urinary tract infection (UTI). How is this diagnosed? This condition is diagnosed based on your medical history, a physical exam, and your symptoms. Tests will also be done, such as: A post-void bladder scan. This measures any amount of urine that may remain in your bladder after you finish urinating. A digital rectal exam. In a rectal exam, your health care provider checks your prostate by putting a lubricated, gloved finger into your rectum to feel the back of your prostate gland. This exam detects the size of your gland and any abnormal lumps or growths. An exam of your urine (urinalysis). A prostate specific antigen (PSA) screening. This is a blood test used to screen for prostate cancer. An ultrasound. This test uses sound waves to electronically produce a picture of your prostate gland. Your health care provider may refer you to a specialist in kidney and prostate diseases (urologist). How is this treated? Once symptoms begin, your health care provider will monitor your condition (active surveillance or watchful waiting). Treatment for this condition will depend on the severity of your condition. Treatment may include: Observation and yearly exams. This may be the only treatment needed if your condition and symptoms are mild. Medicines to relieve your symptoms, including: ?Medicines to shrink the prostate. ?Medicines to relax the muscle of the prostate. Surgery in severe cases. Surgery may include: ?Prostatectomy. In this procedure, the prostate tissue is removed completely through an open incision or with a laparoscope or robotics. ?Transurethral resection of the prostate (TURP). In this procedure, a tool is inserted through the opening at the tip of the penis (urethra). It is used to cut away tissue of the inner core of the prostate. The pieces are removed through the same opening of the penis. This removes the blockage. ?Transurethral incision (TUIP). In this procedure, small cuts are made in the prostate. This lessens the prostate's pressure on the urethra. ?Transurethral microwave thermotherapy (TUMT). This procedure uses microwaves to create heat. The heat destroys and removes a small amount of prostate tissue. ?Transurethral needle ablation (TUNA). This procedure uses radio frequencies to destroy and remove a small amount of prostate tissue. ?Interstitial laser coagulation (ILC). This procedure uses a laser to destroy and remove a small amount of prostate tissue. ?Transurethral electrovaporization (TUVP). This procedure uses electrodes to destroy and remove a small amount of prostate tissue. ?Prostatic urethral lift. This procedure inserts an implant to push the lobes of the prostate away from the urethra. Follow these instructions at home: Take [id number] and prescription medicines only as told by your health care provider. Monitor your symptoms for any changes. Contact your health care provider with any changes. Avoid drinking large amounts of liquid before going to bed or out in public. Avoid or reduce how much caffeine or alcohol you drink. Give yourself time when you urinate. Keep all follow-up visits as told by your health care provider. This is important. Contact a health care provider if: You have unexplained back pain. Your symptoms do not get better with treatment. You develop side effects from the medicine you are taking. Your urine becomes very dark or has a bad smell. Your lower abdomen becomes distended and you have trouble passing your urine. Get help right away if: You have a fever or chills. You suddenly cannot urinate. You feel lightheaded, or very dizzy, or you faint. There are large amounts of blood or clots in the urine. Your urinary problems become hard to manage. You develop moderate to severe low back or flank pain. The flank is the side of your body between the ribs and the hip. These symptoms may represent a serious problem that is an emergency. Do not wait to see if the symptoms will go away. Get medical help right away. Call your local emergency services (911 in the [place] Do not drive yourself to the hospital. Summary Benign prostatic hyperplasia (BPH) is an enlarged prostate that is caused by the normal aging process and not by cancer. An enlarged prostate can press on the urethra. This can make it hard to pass urine. This condition is part of a normal aging process and is more likely to develop in men over the age of 50 years. Get help right away if you suddenly cannot urinate. This information is not intended to replace advice given to you by your health care provider. Make sure you discuss any questions you have with your health care provider. Document Released: 06/14/2006 Document Revised: 05/09/2019 Document Reviewed: 07/19/2017 [employer] Patient Education 2020 [employer]. Follow Up Care 02/16/2022 11:28:21 With:PAMELA BAER, Mac Stephenson, URL Address: [facility] [address] [place] [address]- When: Unknown [facility] 11-22-2022 NoteCONSULTATION CONSULTATION DATE: 05/19/2022 CHIEF COMPLAINT: Left hip pain, gluteal pain, thigh pain. HISTORY OF PRESENT ILLNESS: This is a very pleasant, 67-year-old gentleman who is status post lumbar epidural steroid injection. This afforded the patient 90+% improvement of his pain. The pain is now focused into his low back and into his gluteal region majority of the time. Intermittently, the patient has pain that extends into his leg; however, it is not as frequent. Twisting, standing, walking, p.m., activities aggravate the patient's pain. The hot tub, sitting mitigate the patient's pain. The patient currently takes Mobic 15 mg, Olancha 5/325 on a p.r.n. basis as prescribed by Dr. Donato, tizanidine 4 mg h.s., along with a multivitamin regimen. The patient has started using an inversion table; however, still feels uncomfortable and does this sparingly. The patient's PAST MEDICAL HISTORY / SURGICAL HISTORY / REVIEW OF SYSTEMS are noted on the chart, along with the MEDICATION LIST / ALLERGIES and the RADIOLOGICAL IMAGES. PHYSICAL EXAM: Upon physical examination, this is a pleasant, cooperative gentleman, who does not appear to be in any acute distress. VITAL SIGNS: Stable at 152/83, with a heart rate of 91. At a height of 6', the patient weighs 129 kg. HEAD: Atraumatic. NECK: No guarding is noted. HEART: No orthopnea. LUNGS: No dyspnea. ABDOMEN: Protuberant, distended, taut. BACK: Significant lumbar paravertebral spasming is noted. Extension, compression, direct palpation along the posterior elements aggravate and reproduce the patient's pain symptomatology concordant with facet arthropathy, lumbar spondylosis. EXTREMITIES: No pedal edema is noted. MUSCULOSKELETAL: Intact in the lower extremities at 4+/5 bilaterally. NEUROLOGICALLY: The patient is grossly intact. PSYCHIATRICALLY: Affect is appropriate. IMPRESSION: Low back pain, vertebrogenic pain, lumbar spondylosis. PLAN: Education was done with regards to the patient. The patient will be scheduled for a diagnostic lumbar medial branch block #1 under fluoroscopy at the level of L2-3 and L4-5. In the interim, the patient is to continue with the inversion table. Subsequent to seeing how the patient responds, we will look to have the patient proceed to an aquatic program. The patient has attended physical therapy for three weeks and was discharged secondary to significant improvement once the epidural had been performed. CC: Javad Donato M.D.[facility] [id number] NoteCONSULTATION CONSULTATION DATE: 04/28/2022 CHIEF COMPLAINT: Left leg pain. HISTORY OF PRESENT ILLNESS: This is a very pleasant, 67-year-old gentleman, who was referred to us by Dr. Donato. The patient has had chronic low back pathology. 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 The patient states he has low back pain, left leg pain. The pain travels into his calf on the left hand side. He rates the pain as a 4/10, a tingling sensation. Standing, climbing stairs, bending, activities aggravate the patient's pain. Sitting mitigates the patient's pain. The patient takes two Aleve. He also takes Olancha 5/[address] Donato has prescribed for him for the short term. The patient takes tizanidine 4 mg, Mobic 15 mg. The patient sleeps on his side with a pillow between his legs. The patient has attended chiropractic treatment in the past. The patient has attended physical therapy in March 2022, continues to do so. He does not find this helpful at this time. The patient's PAST MEDICAL HISTORY / SURGICAL HISTORY / REVIEW OF SYSTEMS are noted on the chart, along with the MEDICATION LIST / ALLERGIES and an X-RAY of the lumbar spine which was reviewed. The patient has an EMG Nerve conduction test which shows L5 radiculopathy on the left hand side. PHYSICAL EXAMINATION: Upon physical examination, this is a pleasant, well nourished gentleman, who does not appear to be in any acute distress. VITAL SIGNS: His blood pressure is elevated at 172/98 with a heart rate of 92. At a height of 6'1 , the patient weighs 127 kg. HEAD: Atraumatic, normocephalic. NECK: Crepitus is noted. The patient is guarded in his range of motion. HEART: Negative orthopnea. LUNGS: No respiratory distress. Of note is the fact that the patient does have a scratchy voice. The patient has not received his COVID vaccination. Education was done with regards to this. ABDOMEN: Soft, non-distended. BACK: Heavy dense musculatures are present along the paravertebrals; however, extension does aggravate a component of the patient's pain symptomatology. The patient prefers a forward flexed posture. EXTREMITIES: No pedal edema is noted. Muscle atrophy is noted on the left hand side compared to the right hand side. MUSCULOSKELETAL: Weakness along the L5 distribution along the toe extensors is noted. NEUROLOGICALLY: Absent patellar reflex and Achilles reflex on the left hand side compared to the right hand side. PSYCHIATRICALLY: Affect is appropriate. IMPRESSION: Hypertension, lumbar radiculopathy, significant lumbar degenerative disc disease, multiple levels; lumbar spondylosis. PLAN: Inversion table has been advised for the patient. The patient is also to apply a heat rub to his low back. The patient is scheduled for an MRI in the near future. We will look to follow the MRI with a lumbar epidural steroid injection for the lumbar radiculopathy. The patient understands and would like to proceed. CC: Javad Donato M.D.[facility] [id number] Hospital Discharge instructions Patient Education 02/16/2022 11:24:07 Benign Prostatic Hyperplasia Benign Prostatic Hyperplasia Benign prostatic hyperplasia (BPH) is an enlarged prostate gland that is caused by the normal agingprocess and not by cancer. The prostate is a walnut-sized gland that is involved in the production of semen. It is located in front of the rectum and below the bladder. The bladder stores urine and the urethra is the tube that carries the urine out of the body. The prostate may get bigger as a man gets older. An enlarged prostate can press on the urethra. This can make it harder to pass urine. The build-up of urine in the bladder can cause infection. Back pressure and infection may progress to bladder damage and kidney (renal) failure. What are the causes? This condition is part of a normal aging process. However, not all men develop problems from this condition. If the prostate enlarges away from the urethra, urine flow will not be blocked. If it enlarges toward the urethra and compresses it, there will be problems passing urine. What increases the risk? This condition is more likely to develop in men over the age of 50 years. What are the signs or symptoms? Symptoms of this condition include: Getting up often during the night to urinate. Needing to urinate frequently during the day. Difficulty starting urine flow. Decrease in size and strength of your urine stream. Leaking (dribbling) after urinating. Inability to pass urine. This needs immediate treatment. Inability to completely empty your bladder. Pain when you pass urine. This is more common if there is also an infection. Urinary tract infection (UTI). How is this diagnosed? This condition is diagnosed based on your medical history, a physical exam, and your symptoms. Tests will also be done, such as: A post-void bladder scan. This measures any amount of urine that may remain in your bladder after you finish urinating. A digital rectal exam. In a rectal exam, your health care provider checks your prostate by putting a lubricated, gloved finger into your rectum to feel the back of your prostate gland. This exam detects the size of your gland and any abnormal lumps or growths. An exam of your urine (urinalysis). A prostate specific antigen (PSA) screening. This is a blood test used to screen for prostate cancer. An ultrasound. This test uses sound waves to electronically produce a picture of your prostate gland. Your health care provider may refer you to a specialist in kidney and prostate diseases (urologist). How is this treated? Once symptoms begin, your health care provider will monitor your condition (active surveillance or watchful waiting). Treatment for this condition will depend on the severity of your condition. Treatment may include: Observation and yearly exams. This may be the only treatment needed if your condition and symptoms are mild. Medicines to relieve your symptoms, including: ?Medicines to shrink the prostate. ?Medicines to relax the muscle of the prostate. Surgery in severe cases. Surgery may include: ?Prostatectomy. In this procedure, the prostate tissue is removed completely through an open incision or with a laparoscope or robotics. ?Transurethral resection of the prostate (TURP). In this procedure, a tool is inserted through the opening at the tip of the penis (urethra). It is used to cut away tissue of the inner core of the prostate. The pieces are removed through the same opening of the penis. This removes the blockage. ?Transurethral incision (TUIP). In this procedure, small cuts are made in the prostate. This lessens the prostate's pressure on the urethra. ?Transurethral microwave thermotherapy (TUMT). This procedure uses microwaves to create heat. The heat destroys and removes a small amount of prostate tissue. ?Transurethral needle ablation (TUNA). This procedure uses radio frequencies to destroy and remove a small amount of prostate tissue. ?Interstitial laser coagulation (ILC). This procedure uses a laser to destroy and remove a small amount of prostate tissue. ?Transurethral electrovaporization (TUVP). This procedure uses electrodes to destroy and remove a small amount of prostate tissue. ?Prostatic urethral lift. This procedure inserts an implant to push the lobes of the prostate away from the urethra. Follow these instructions at home: Take axte-qij-wcedxpe and prescription medicines only as told by your health care provider. Monitor your symptoms for any changes. Contact your health care provider with any changes. Avoid drinking large amounts of liquid before going to bed or out in public. Avoid or reduce how much caffeine or alcohol you drink. Give yourself time when you urinate. Keep all follow-up visits as told by your health care provider. This is important. Contact a health care provider if: You have unexplained back pain. Your symptoms do not get better with treatment. You develop side effects from the medicine you are taking. Your urine becomes very dark or has a bad smell. Your lower abdomen becomes distended and you have trouble passing your urine. Get help right away if: You have a fever or chills. You suddenly cannot urinate. You feel lightheaded, or very dizzy, or you faint. There are large amounts of blood or clots in the urine. Your urinary problems become hard to manage. You develop moderate to severe low back or flank pain. The flank is the side of your body between the ribs and the hip. These symptoms may represent a serious problem that is an emergency. Do not wait to see if the symptoms will go away. Get medical help right away. Call your local emergency services (911 in the [place] Do not drive yourself to the hospital. Summary Benign prostatic hyperplasia (BPH) is an enlarged prostate that is caused by the normal aging process and not by cancer. An enlarged prostate can press on the urethra. This can make it hard to pass urine. This condition is part of a normal aging process and is more likely to develop in men over the age of 50 years. Get help right away if you suddenly cannot urinate. This information is not intended to replace advice given to you by your health care provider. Make sure you discuss any questions you have with your health care provider. Document Released: 06/14/2006 Document Revised: 05/09/2019 Document Reviewed: 07/19/2017 [employer] Patient Education 2020 [employer]. 02/16/2022 11:24:04 Calorie Counting for Weight Loss Calorie Counting for Weight Loss Calories are units of energy. Your body needs a certain amount of calories from food to keep you going throughout the day. When you eat more calories than your body needs, your body stores the extra calories as fat. When you eat fewer calories than your body needs, your body etienne fat to get the energy it needs. Calorie counting means keeping track of how many calories you eat and drink each day. Calorie counting can be helpful if you need to lose weight. If you make sure to eat fewer calories than your bodyneeds, you should lose weight. Ask your health care provider what a healthy weight is for you. For calorie counting to work, you will need to eat the right number of calories in a day in order to lose a healthy amount of weight per week. A dietitian can help you determine how many calories youneed in a day and will give you suggestions on how to reach your calorie goal. A healthy amount of weight to lose per week is usually 1 2 lb (0.5 0.9 kg). This usually means thatyour daily calorie intake should be reduced by 500 750 calories. Eating 1,200 1,500 calories per day can help most women lose weight. Eating 1,500 1,800 calories per day can help most men lose weight. What is my plan? My goal is to have calories per day. If I have this many calories per day, I should lose around pounds per week. What do I need to know about calorie counting? In order to meet your daily calorie goal, you will need to: Find out how many calories are in each food you would like to eat. Try to do this before you eat. Decide how much of the food you plan to eat. Write down what you ate and how many calories it had. Doing this is called keeping a food log. To successfully lose weight, it is important to balance calorie counting with a healthy lifestyle that includes regular activity. Aim for 150 minutes of moderate exercise (such as walking) or 75 minutes of vigorous exercise (such as running) each week. Where do I find calorie information? The number of calories in a food can be found on a Nutrition Facts label. If a food does not have aNutrition Facts label, try to look up the calories online or ask your dietitian for help. Remember that calories are listed per serving. If you choose to have more than one serving of a food, you will have to multiply the calories per serving by the amount of servings you plan to eat. Forexample, the label on a package of bread might say that a serving size is 1 slice and that there are 90 calories in a serving. If you eat 1 slice, you will have eaten 90 calories. If you eat 2 slices, you will have eaten 180 calories. How do I keep a food log? Immediately after each meal, record the following information in your food log: What you ate. Don't forget to include toppings, sauces, and other extras on the food. How much you ate. This can be measured in cups, ounces, or number of items. How many calories each food and drink had. The total number of calories in the meal. Keep your food log near you, such as in a small notebook in your pocket, or use a mobile david or website. Some programs will calculate calories for you and show you how many calories you have left forthe day to meet your goal. What are some calorie counting tips? Use your calories on foods and drinks that will fill you up and not leave you hungry: ?Some examples of foods that fill you up are nuts and nut butters, vegetables, lean proteins, and high-fiber foods like whole grains. High-fiber foods are foods with more than 5 g fiber per serving. ?Drinks such as sodas, specialty coffee drinks, alcohol, and juices have a lot of calories, yet do not fill you up. Eat nutritious foods and avoid empty calories. Empty calories are calories you get from foods or beverages that do not have many vitamins or protein, such as candy, sweets, and soda. It is better to have a nutritious high-calorie food (such as an avocado) than a food with few nutrients (such as a bag of chips). Know how many calories are in the foods you eat most often. This will help you calculate calorie counts faster. Pay attention to calories in drinks. Low-calorie drinks include water and unsweetened drinks. Pay attention to nutrition labels for low fat or fat free foods. These foods sometimes have thesame amount of calories or more calories than the full fat versions. They also often have added sugar, starch, or salt, to make up for flavor that was removed with the fat. Find a way of tracking calories that works for you. Get creative. Try different apps or programs ifwriting down calories does not work for you. What are some portion control tips? Know how many calories are in a serving. This will help you know how many servings of a certain food you can have. Use a measuring cup to measure serving sizes. You could also try weighing out portions on a kitchenscale. With time, you will be able to estimate serving sizes for some foods. Take some time to put servings of different foods on your favorite plates, bowls, and cups so you know what a serving looks like. Try not to eat straight from a bag or box. Doing this can lead to overeating. Put the amount you would like to eat in a cup or on a plate to make sure you are eating the right portion. Use smaller plates, glasses, and bowls to prevent overeating. Try not to multitask (for example, watch TV or use your computer) while eating. If it is time to eat, sit down at a table and enjoy your food. This will help you to know when you are full. It will also help you to be aware of what you are eating and how much you are eating. What are tips for following this plan? Reading food labels Check the calorie count compared to the serving size. The serving size may be smaller than what youare used to eating. Check the source of the calories. Make sure the food you are eating is high in vitamins and proteinand low in saturated and trans fats. Shopping Read nutrition labels while you shop. This will help you make healthy decisions before you decide to purchase your food. Make a grocery list and stick to it. Cooking Try to cook your favorite foods in a healthier way. For example, try baking instead of frying. Use low-fat dairy products. Meal planning Use more fruits and vegetables. Half of your plate should be fruits and vegetables. Include lean proteins like poultry and fish. How do I count calories when eating out? Ask for smaller portion sizes. Consider sharing an entree and sides instead of getting your own entree. If you get your own entree, eat only half. Ask for a box at the beginning of your meal and put the rest of your entree in it so you are not tempted to eat it. If calories are listed on the menu, choose the lower calorie options. Choose dishes that include vegetables, fruits, whole grains, low-fat dairy products, and lean protein. Choose items that are boiled, broiled, grilled, or steamed. Stay away from items that are buttered,battered, fried, or served with cream sauce. Items labeled crispy are usually fried, unless stated otherwise. Choose water, low-fat milk, unsweetened iced tea, or other drinks without added sugar. If you want an alcoholic beverage, choose a lower calorie option such as a glass of wine or light beer. Ask for dressings, sauces, and syrups on the side. These are usually high in calories, so you should limit the amount you eat. If you want a salad, choose a garden salad and ask for grilled meats. Avoid extra toppings like arenas, cheese, or fried items. Ask for the dressing on the side, or ask for olive oil and vinegar or lemon to use as dressing. Estimate how many servings of a food you are given. For example, a serving of cooked rice is cup orabout the size of half a baseball. Knowing serving sizes will help you be aware of how much food you are eating at restaurants. The list below tells you how big or small some common portion sizes arebased on everyday objects: ?1 oz 4 stacked dice. ?3 oz 1 deck of cards. ?1 tsp 1 . ?1 Tbsp a ping-pong ball. ?2 Tbsp 1 ping-pong ball. ? cup baseball. ?1 cup 1 baseball. Summary Calorie counting means keeping track of how many calories you eat and drink each day. If you eat fewer calories than your body needs, you should lose weight. A healthy amount of weight to lose per week is usually 1 2 lb (0.5 0.9 kg). This usually means reducing your daily calorie intake by 500 750 calories. The number of calories in a food can be found on a Nutrition Facts label. If a food does not have aNutrition Facts label, try to look up the calories online or ask your dietitian for help. Use your calories on foods and drinks that will fill you up, and not on foods and drinks that will leave you hungry. Use smaller plates, glasses, and bowls to prevent overeating. This information is not intended to replace advice given to you by your health care provider. Make sure you discuss any questions you have with your health care provider. Document Released: 06/14/2006 Document Revised: 03/03/2019 Document Reviewed: 05/14/2017 [employer] Patient Education 2020 [employer]. Follow Up Care 08/18/2021 12:09:57 With:Mac BOYER MD, URL Address: [address] [place] [phone] (1) When:Within 6 Month(s) [facility] evaluation + Plan note Future Appointments Appointment Date:06/01/2022 10:45:00 AM Scheduled Provider:Mac BOYER MD Location:[facility] Appointment Type:URO Office Visit [facility] evaluation + Plan note Future Appointments Appointment Date:11/30/2022 08:45:00 AM Scheduled Provider:Mac BOYER MD Location:[facility] Appointment Type:URO Office Visit [facility] evaluation noteNo assessment information available [facility] Work Phone: Evaluation noteNort [employer] Other evalruuyjb note* Diagnosis Spinal stenosis, lumbar region with neurogenic claudication- Primary [facility] Diagnosis Spinal stenosis, lumbar region with neurogenic claudication- Primary Bilateral hip joint arthritis documented in this encounter [facility] general Narrative - Reported* Type Description Date Medical History appendicitis Medical History Arthritis Medical History Hypertension Medical History obesity Medical History pneumonia Medical History prostate cancer Surgical History appendectomy Surgical History carpal tunnel release 2017 Hospitalization History see surg Hx [facility] [employer] Other History general [facility] - [facility] Other Hospital course Narrative No data available for this section [facility] progress note No data available for this section [facility] reason for referral (narrative)* Diagnostic Procedure Only (Routine) - Pending Review Specialty Diagnoses / Procedures Referred By Rayray barkley Referred To Contact XR IMAGING Diagnoses Bilateral hip joint arthritis Procedures XR HIP BILATERAL 5V PEL/AP/LAT EACH HIP RADEX HIPS BILATERAL WITH PELVIS MINIMUM 5 VIEWS Laila Pan PA-C [address] [place] [address] [place] [address] Referral ID Status Reason Start Date Expiration Date Visits Requested Visits Authorized [id number] Pending Review Auto-Generat ed Referral 3 05/12/2024 1 1 * Consult, Test, Treat (Routine) - Pending Review Specialty Diagnoses / Procedures Referred By Rayray barkley Referred To Contact Orthopedics Diagnoses Bilateral hip joint arthritis Procedures CONSULT TO ORTHOPAEDICS OFFICE/OUTPATIENT NEW HIGH MDM 60-74 MINUTES Laila Pan PA-C [address] [place] [address] Referral ID Status Reason Start Date Expiration Date Visits Requested Visits Authorized [id number] Pending Review PCP Requested Referral 3 04/12/2024 1 1 [facility] for visit Narrativeself referral- low back pain L4-L5 marinanow Other Summary Purpose Family History No Family History Records FoundNo Family History Records FoundNo Family History Records FoundNo Family History Records FoundNo Family History Records FoundNo Family History Records FoundNo Family History Records Found Advance Directives No Advanced Directives Records Found Advance Directive Response Recorded Date/ Time Advance Directives No December 17 2:40pm Chief Complaint and Reason for Visit Chief Complaint M54.16 Additional Source Comments Care Team (unrecognized sect ion and content) Team Status: Active Member Role Status Dates Javad Donato II MD Primary Care Provider Active Team Status: Inactive Member Role Status Dates Javad Donato II MD Primary Care Provider Active ANGELA Reyes Attending Provider Active (unrecognized sect ion and content) No Status Records FoundNo Status Records FoundNo Status Records FoundNo Status Records FoundNo Status Records FoundNo Status Records FoundNo Status Records Found INFORMATION SOURCE (unrecogn ized section and content) DATE CREATED AUTHOR 05/02/2022 [facility] DATE CREATED AUTHOR AUTHOR'S ORGANIZ ATION 12/04/2022 [facility] DATE CREATED AUTHOR AUTHOR'S ORGANIZ ATION 01/13/2023 [facility] DATE CREATED AUTHOR AUTHOR'S ORGANIZ ATION 02/08/2023 [facility] DATE CREATED AUTHOR AUTHOR'S ORGANIZ ATION 02/13/2023 [facility] DATE CREATED AUTHOR AUTHOR'S ORGANIZ ATION 04/17/2023 [facility] DATE CREATED AUTHOR AUTHOR'S ORGANIZ ATION 06/13/2023 [facility] dical Specialists EPIC Goals (unrecognized section and content) Goals may be documented in a n alternate section Source Comments (unrecognize d section and content) In the event this informatio n is protected by the Federal Confidentiality of Alcohol and Drug Abuse Patient Records regulations: The Federal rules restrict any use of the information to criminally investigate or prosecute any alcohol or drug abuse patient.[facility] the event this information is protected by the Federal Confidentiality of Alcohol and Drug Abuse Patient Records regulations: The Federal rules restrict any use of the information to criminally investigate or prosecute any alcohol or drug abuse patient.[facility] Reason for Visit (unrecogniz ed section and content) Reason Comments New Patient FOR RECORDS PERTAINING TO PATIENTS WHO ARE OR HAVE BEEN ENROLLED IN A CHEMICAL DEPENDENCY/SUBSTANCEABUSE PROGRAM, SOME INFORMATION MAY BE OMITTED. This clinical summary was aggregated from multiple sources. Caution should be exercised in using it in the provision of clinical care. This summary normalizes information from multiple sources, and as a consequence, information in this document may materially change the coding, format and clinical context of patient data. In addition, data may be omitted in some cases. CLINICAL DECISIONS SHOULD BE BASED ON THE PRIMARY CLINICAL RECORDS. [facility] [employer] [facility]. provides no warranty or guarantee of the accuracy or completeness of information in this document.
--- NOTE | 2023-06-26 15:50 | ED_ITS ---
HPI - Skin/Abscess/Foreign Bdy General Chief complaint: Skin/Abscess/Foreign Body Stated complaint: SMASHED THUMB AT HOME Time Seen by Provider: 06/26/23 13:21 Source: patient Mode of arrival: walk-in Limitations: no limitations History of Present Illness HPI narrative: The patient crushed his left middle finger between the wood that he was working with, tetanus is up-to-date The patient also denies any other complaints other than the pain in his left middle finger he also had an abrasion on the left fourth finger Related Data Home Medications Medication Instructions Recorded Confirmed ascorbic acid (vitamin C) 500 mg 500 mg PO DAILY 12/10/22 03/16/23 tablet (C-500) bee pollen 550 mg capsule mg PO .QD 12/10/22 carvedilol 6.25 mg tablet 6.25 mg PO BID 12/10/22 03/16/23 cholecalciferol (vitamin D3) 10 10 mcg PO DAILY 12/10/22 03/16/23 mcg (400 unit) capsule (Vitamin D3) finasteride 5 mg tablet 5 mg PO .QD 12/10/22 03/16/23 hydrocodone 5 mg-acetaminophen 325 1 tab PO QID PRN pain 12/10/22 03/16/23 mg tablet mecobalamin (vitamin B12) 1,000 1,000 mcg PO DAILY 12/10/22 03/16/23 mcg chewable tablet (B12 Active) meloxicam 15 mg tablet 15 mg PO .QD 12/10/22 03/16/23 multivitamin 1 tab PO DAILY 12/10/22 03/16/23 sildenafil 100 mg tablet (Viagra) 100 mg PO DAILY PRN sexual activity 12/10/22 03/16/23 solifenacin 10 mg tablet 10 mg PO DAILY 12/10/22 03/16/23 tamsulosin 0.4 mg capsule 0.4 mg PO Q24H 12/10/22 03/16/23 tizanidine 4 mg capsule 4 mg PO .HS PRN muscle spasticity 12/10/22 03/16/23 vitamin B complex (Complex B-100 1 tab PO DAILY 12/10/22 03/16/23 tablet,extended release) zinc 50 mg tablet 50 mg PO DAILY 12/10/22 03/16/23 Previous Rx's Medication Instructions Recorded cephalexin 500 mg capsule 500 mg PO Q8H 3 days #9 caps 06/26/23 Allergies Allergy/AdvReac Type Severity Reaction Status Date / Time No Known Drug Allergies Allergy Verified 06/26/23 15:54 Review of Systems ROS Status of ROS 10 or more systems reviewed and unremark able except as noted in history and below [facility] Medical History Surgical History Hx of appendectomy ?Z90.49 - Acquired absence of other specified parts of digestive tract (ICD- 10) Social History Smoking status: Former smoker Exam Narrative Exam Narrative: Nurses notes and vital signs reviewed and patient is not hypoxic. General: Well-appearing and in no apparent distress. Skin: Warm, dry, no pallor noted. No rash. Head: Normocephalic, atraumatic. Neck: Supple, non-tender. Eye: Pupils are equal, round and EOMI. No scleral icterus. Ears, Nose, Mouth, and Throat: TM are clear, no nasal mucosal hypertrophy. Oral mucosa is moist, no posterior oropharynx erythema, uvula is mid-line Cardiovascular: Regular Rate and Rhythm without murmur, gallop or rub. Respiratory: No accessory muscle use or respiratory distress. Lungs are clear to auscultation, no wheezing, rales or rhonchi Chest Wall: no tenderness Back: No midline thoracic or lumbar vertebral tenderness. No CVA tenderness Musculoskeletal: Left hand submission showed that the patient have an abrasion on the posterior aspect of the ring finger with abrasions around 1 to 2 mm and superficial but he also have a laceration to the distal phalanx of the left middle finger mostly on the posterior aspect from the distal interphalangeal joint no exposure of the underlying structure it is L like shaped. No exposure of the underlying structures and no foreign body or tendon injury detected with the full range of movement preserved GI: Abdomen is soft, non-distended. Normal bowel sounds. No masses appreciated. No tenderness to palpation. No rebound, guarding, or rigidity noted. Neurological: A&O x4. No cranial nerve dysfunction observed. No truncal ataxia. Moves all extremities. Sensation intact. Psychiatric: Cooperative and interactive. Normal mood and affect. Constitutional Vital Signs, click to edit/add: Last Vital Signs Temp 98.2 F 06/26/23 12:32 Pulse 74 06/26/23 16:11 Resp 18 06/26/23 12:32 BP 151/74 H 06/26/23 16:11 Pulse Ox 98 06/26/23 16:11 O2 Del Method Room Air 06/26/23 12:32 Course Vital Signs Vital signs: Vital Signs Temperature 98.2 F 06/26/23 12:32 Pulse Rate 96 H 06/26/23 12:32 Respiratory Rate 18 06/26/23 12:32 Blood Pressure 156/99 H 06/26/23 12:32 Pulse Oximetry 97 06/26/23 12:32 Oxygen Delivery Method Room Air 06/26/23 12:32 Temperature 98.2 F 06/26/23 12:32 Pulse Rate 74 06/26/23 16:11 Respiratory Rate 18 06/26/23 12:32 Blood Pressure 151/74 H 06/26/23 16:11 Pulse Oximetry 98 06/26/23 16:11 Oxygen Delivery Method Room Air 06/26/23 12:32 MDM - Skin/Abscess/Foreign Bdy MDM Narrative Medical decision making narrative: X-ray of the left hand showed no acute pathology It was noted that the edges of the wound are macerated due to the crushing injury The patient had the wound cleaned with normal saline and Betadine after which he had 1% lidocaine infiltrated the area and almost 5 stitches placed with a 5 O nylon , The patient tolerated the procedure well he is up-to-date with his vaccination Patient also was provided with a Keflex prescription because of his crush injury Finger splint applied and the patient to continue supportive care at home with elevation The patient is to follow up with primary care physician in next 2-3 days or to return to the emergency department should any of the signs or symptoms worsen or new symptoms develop. The patient agrees with the following Diagnosis and Treatment plan and the patient will be discharged home. Discharge Plan Discharge Chief Complaint: Skin/Abscess/Foreign Body Clinical Impression: Contusion of finger Qualifiers: Encounter type: initial encounter Finger: middle finger Damage to nail status: with damage Laterality: left Qualified Code(s): S60.132A - Contusion of left middle finger with damage to nail, initial encounter Laceration of finger Qualifiers: Encounter type: initial encounter Finger: middle finger Damage to nail status: with damage Foreign body presence: without foreign body Laterality: left Qualified Code(s): S61.313A - Laceration without foreign body of left middle finger with damage to nail, initial encounter Patient Disposition: Home, Self-Care Time of Disposition Decision: 15:51 Condition: Good Prescriptions / Home Meds: New cephalexin 500 mg capsule 500 mg PO Q8H 3 Days Qty: 9 0RF No Action finasteride 5 mg tablet 5 mg PO .QD meloxicam 15 mg tablet 15 mg PO .QD tamsulosin 0.4 mg capsule 0.4 mg PO Q24H Complex B-100 Tablet Extended Release 1 tab PO DAILY mecobalamin (vitamin B12) [B12 Active] 1,000 mcg tablet,chewable 1,000 mcg PO DAILY multivitamin Tablet 1 tab PO DAILY solifenacin 10 mg tablet 10 mg PO DAILY hydrocodone-acetaminophen 5-325 mg tablet 1 tab PO QID PRN (Reason: pain) zinc 50 mg tablet 50 mg PO DAILY bee pollen 550 mg capsule PO .QD carvedilol 6.25 mg tablet 6.25 mg PO BID Rx Instructions: must administer with a meal/food tizanidine 4 mg capsule 4 mg PO .HS PRN (Reason: muscle spasticity) sildenafil [Viagra] 100 mg tablet 100 mg PO DAILY PRN (Reason: sexual activity) Rx Instructions: administer 30 minutes to 4 hours before activity ascorbic acid (vitamin C) [C-500] 500 mg tablet 500 mg PO DAILY cholecalciferol (vitamin D3) [Vitamin D3] 10 mcg (400 unit) capsule 10 mcg PO DAILY Instructions: Laceration (DC), Contusion in Adults (ED) Stand Alone Forms: Portal Instructions Referrals: JOHNATHAN LÓPEZ [Primary Care Provider] - 1 week Discharge Date/Time: 06/26/23 16:12
[2023-06-26 16:11] VITALS: BP 151/74; PULSE 74; O2SAT 98
== END 2023-06-26 16:12 | disposition home or self-care (01) ==
PROVIDERS: Emergency Provider Emergency Medicine; PCP Internal Medicine
DX: S61.213A Laceration without foreign body of left middle finger without damage to nail, initial encounter (principal); S60.132A Contusion of left middle finger with damage to nail, initial encounter; S60.415A Abrasion of left ring finger, initial encounter; Z87.891 Personal history of nicotine dependence; W23.0XXA Caught, crushed, jammed, or pinched between moving objects, initial encounter; Z79.899 Other long term (current) drug therapy
CPT/HCPCS: 12001; 73140; 99283

== ENCOUNTER 2023-08-26 08:51 | Outpatient (OUT) | payer MEDICARE, OTHER, SELFPAY ==
--- NOTE | 2023-08-26 09:04 | PM.CN ---
Consult Note: HPI Data of Consult Patient: known to practice within the last 3 years Requesting Physician: Kath Steiner NP Primary Care Provider: JOHNATHAN LÓPEZ Consult Narrative Reason for consult: f/u Narrative: aLwson martin a pleasant 68 year old male presents for evaluation of chronic low back, right buttock and right leg pain. Today rating pain 4/10. Patient recently had right hip replaced and is noticing significant improvement. Patient continues to have pain over right LCIH nerve and reports significant relief from previous nerve blocks, no relief from RFAs. Patient would like another LCIH nerve block. Patient continues to utilize mobic, tizanidine, and very sparingly norco 5-325mg. Patient is engaged in PT and is asking for more PT sessions. Patient is continuing to follow with NS and is interested in lumbar spine fusion. cc:: CC: Kath Steiner NP Review of Systems ROS Status of ROS 10 or more systems reviewed and unremarkable except as noted in history and below [facility] Medical History (Updated 08/26/23 @ 09:32 by Kath Steiner NP) Neuritis ?M79.2 - Neuralgia and neuritis, unspecified (ICD-10) Left carpal tunnel syndrome ?G56.02 - Carpal tunnel syndrome, left upper limb (ICD-10) Osteoarthritis ?M19.90 - Unspecified osteoarthritis, unspecified site (ICD-10) Low back pain ?M54.50 - Low back pain, unspecified (ICD-10) Obesity ?E66.9 - Obesity, unspecified (ICD-10) Enlarged prostate ?N40.0 - Benign prostatic hyperplasia without lower urinary tract symptoms (ICD-10) Former smoker ?Z87.891 - Personal history of nicotine dependence (ICD-10) Hypertension ?I10 - Essential (primary) hypertension (ICD-10) Surgical History Hx of appendectomy ?Z90.49 - Acquired absence of other specified parts of digestive tract (ICD-10) Social History Smoking status: Former smoker Meds Home Medications and Allergies Home Medications Medication Instructions Recorded Confirmed Type ascorbic acid (vitamin C) 500 mg 500 mg PO DAILY 12/10/22 03/16/23 History tablet (C-500) bee pollen 550 mg capsule mg PO .QD 12/10/22 History carvedilol 6.25 mg tablet 6.25 mg PO BID 12/10/22 03/16/23 History cholecalciferol (vitamin D3) 10 10 mcg PO DAILY 12/10/22 03/16/23 History mcg (400 unit) capsule (Vitamin D3) finasteride 5 mg tablet 5 mg PO .QD 12/10/22 03/16/23 History hydrocodone 5 mg-acetaminophen 325 1 tab PO QID PRN pain 12/10/22 03/16/23 History mg tablet mecobalamin (vitamin B12) 1,000 1,000 mcg PO DAILY 12/10/22 03/16/23 History mcg chewable tablet (B12 Active) meloxicam 15 mg tablet 15 mg PO .QD 12/10/22 03/16/23 History multivitamin 1 tab PO DAILY 12/10/22 03/16/23 History sildenafil 100 mg tablet (Viagra) 100 mg PO DAILY PRN sexual activity 12/10/22 03/16/23 History solifenacin 10 mg tablet 10 mg PO DAILY 12/10/22 03/16/23 History tamsulosin 0.4 mg capsule 0.4 mg PO Q24H 12/10/22 03/16/23 History tizanidine 4 mg capsule 4 mg PO .HS PRN muscle spasticity 12/10/22 03/16/23 History vitamin B complex (Complex B-100 1 tab PO DAILY 12/10/22 03/16/23 History tablet,extended release) zinc 50 mg tablet 50 mg PO DAILY 12/10/22 03/16/23 History cephalexin 500 mg capsule 500 mg PO Q8H 3 days #9 caps 06/26/23 Rx Allergies Allergy/AdvReac Type Severity Reaction Status Date / Time No Known Drug Allergies Allergy Verified 06/26/23 15:54 Exam Constitutional Documenting provider has reviewed patient's vital signs: yes Common normals: no apparent distress, oriented x3, healthy appearing, alert and well nourished General appearance: cooperative Nutritional appearance: obese HENMT Common normals: normocephalic, hearing grossly normal bilaterally and moist oral mucous membranes Head and scalp: normocephalic Eye Common normals: PERRL Pupil: PERRL Neck & C-Spine Common normals: full ROM General: normal visual inspection Chest Common normals: inspection of chest normal Respiratory Common normals: normal respiratory effort, no retractions and no use of accessory muscles Back & Pelvis Lumbar spine/lower back: ROM limited and pain with ROM Sacroiliac joints: SI joint(s) abnormal (pain over left SIJ) Extremity Common normals: normal to inspection and full ROM Neuro Common normals: oriented x3, CN's II-XII intact bilaterally, moves all extremities, no focal motor deficits, no sensory deficits noted and deep tendon reflexes 2+ bilaterally Sensorium/orientation: alert Motor exam: strength 5/5 throughout and no movement abnormalities noted Psych Common normals: mental status grossly normal, thought process normal, cooperative, affect normal, speech normal and activity/motor behavior normal Speech: normal speech Thought process: normal thought process Results Additional Findings Additional findings: I have checked an [place] report on this patient today and there are no aberrancies noted in the prescribing history.?? A drug screen was completed and reviewed within the last year, and if there has not been a drug screen completed we ordered one today to monitor higher risk, state monitored pain medication use. As part of providing excellent, safe, comprehensive care, the following was completed at our patient's visit: 1. A medication reconciliation and review to ensure accurate knowledge of current/active medications, including asking our patients to inform us about any [id number] medications or herbal remedies/nutritional supplements/alternative remedies. 2. A review to specifically ensure our patients have had annual screening for: elevated body mass index (BMI), tobacco use, screening for depression, and screening for unhealthy alcohol use. When screening is concerning, patients are provided with education and the specific recommendation to discuss the concerning health issue and treatment options with their primary care provider. Assessment and Plan Assessment and Plan (1) Lumbar spondylosis: (2) Sacroiliac joint pain: (3) Neuritis: Plan consider right LCIH nerve block with steroid with Dr Ayoub as patient reports significant relief from LCIH injections in the past, but not from RFAs continue pt and aquatherapy continue current medications, tolerating well without side effects, noticing improvement in ability to complete ADLs f/u 3 months, sooner if needed
--- OUTSIDE RECORDS SUMMARY | 2023-08-26 09:12 | XMS_ITS | CCD ---
Author Name Unknown Address [address] [place] [address] Organization [facility] Care Team Providers Care Fraud Prevention Analyst Name Role Phone JAVAD DONATO Primary Care Physician MARINE ., DR ANTIONE Fletcher Admitting Unavailable HAWTHORNE ., DR ANTIONE Fletcher Consulting Unavailable MARIBEL, DR MANN Primary Care Unavailable HAWTHORNE ., DR ANTIONE Fletcher Attending Unavailable GUERRA ., MELISSA Consulting Unavailable HAWTHORNE ., DR ANTIONE Fletcher Attending Unavailable HAWTHRONE ., DR ANTIONE Fletcher Admitting Unavailable HAWTHORNE [...] MARIBEL, DR MANN Admitting Unavailable LAKSHMIPATHY ., SUREKHAATH Attending Peyton vailable MARIBEL, DR MANN Primary Care Unavailable RA, DR DEVIN Novak Consulting Unavailable LAKSHMIPATHY ., NARERIC Admitting Peyton vailable LAKSHMIPATHY ., NARERIC Consulting Peyton vailable HAWTHORNE ., DR ANTIONE Fletcher Admitting Unavailable HAWTHORNE ., DR ANTIONE Fletcher Consulting Unavailable HAWTHORNE ., DR ANTIONE Fletcher Attending Unavailable MARIBEL, DR MANN Primary Care Unavailable HAWTHORNE ., DR ANTIONE Fletcher Attending Unavailable HAWTHORNE ., DR ANTIONE Fletcher Admitting Unavailable HAWTHORNE ., DR ANTIONE Fletcher Consulting Unavailable MARIBEL, DR MANN Primary Care Unavailable LAKSHMIPATHY ., NARENDRANATH Consulting Peyton vailable LAKSHMIPATHY ., NARENDDERIANATH Attending Peyton vailable LAKSHMIPATHY ., NARENDRANATH Admitting Peyton vailable MARIBEL, DR MANN Primary Care Unavailable LAKSHMIPATHY ., NARENDDERIANATH Consulting Peyton vailable LAKSHMIPATHY ., NARENDDERIANATH Attending Peyton vailable MARIBEL, DR MANN Primary Care Unavailable LAKSHMIPATHY ., NARENDRANATH Admitting Peyton vailable LAKSHMIPATHY ., NARENDRANATH Admitting Peyton vailable LAKSHMIPATHY ., NARENDRANATH Consulting Peyton vailable LAKSHMIPATHY ., NARENDDERIANATH Attending Peyton vailable MARIBEL, DR MANN Primary Care Unavailable HAWTHORNE ., DR ANTIONE Fletcher Attending Unavailable HAWTHORNE ., DR ANTIONE Fletcher Admitting Unavailable HAWTHORNE ., DR ANTIONE Fletcher Consulting Unavailable MARIBEL, DR MANN Primary Care Unavailable JAVAD SAINI Consulting Unavailable CAMILLE BAILEY Consulting Unavailable Erica Xiong Unavailable SIMONA Donato Primary Care Provider ANGELA Xiong Attending Provider Erica Xiong Admitting Unavailable Erica Xiong Attending Unavailable Javad Donato Primary Care Unavailable Mac SANTIAGO Attending Unavailable Mac SANTIAGO Attending Unavailable Mac SANTIAGO Attending Unavailable Unavailable Primary Care Provider UnavailLAILA Cardenas Attending Unavailable CHARISSA BLAIR Referring Unavailable JAVAD DONATO Primary Care Unavailable CHARISSA BLAIR Admitting Unavailable CHARISSA BLAIR Attending Unavailable JAVAD DONATO Primary Care Unavailable DEVIN SAUL Attending Unavailable JAVAD DONATO Primary Care Unavailable CHARISSA BLAIR Attending Unavailable CHARISSA BLAIR Referring Unavailable JAVAD DONATO Primary Care Unavailable Javad Donato MD Unavailable Javad Donato MD Primary Care Provider [phone] JAVAD DONATO Attending Unavailable JOSE HERNÁNDEZ Attending Unavailable NAGI PLATA Attending Unavailable CHARISSA BLAIR Referring Unavailable JEANNA MENDIOLA Attending Unavailable CHARISSA BLAIR Referring Unavailable JAVAD DONATO Attending Unavailable CLAUDINE HOUSE Attending Unavailable CHARISSA BLAIR Referring Unavailable JEANNA MENDIOLA Attending Unavailable CHARISSA BLAIR Referring Unavailable JEANNA MENDIOLA Attending Unavailable CHARISSA BLAIR Referring Unavailable JOSE HERNÁNDEZ Attending Unavailable JOSE HERNÁNDEZ Referring Unavailable NAGI PLATA Attending Unavailable CHARISSA BLAIR Referring Unavailable JEANNA MENDIOLA Attending Unavailable CHARISSA BLAIR Referring Unavailable CHARISSA BLAIR Attending Unavailable CHARISSA BLAIR Referring Unavailable Allergies Allergy Classification Reported Allergen(s) Allergy Type Date of Onset Reaction(s) Facility (9 sources) carvedilol; Translations: [CARVEDILOL] Drug Allergy 06-29-2022 [facility] Medications Current Medications Medication Drug Class(es) Dates Sig (Normalized) Sig (Original) Ascorbic Acid (10 sources) Vitamin C Start: 02-16-2022 Vitamin C Alexis y, Refills(s) 0 Start Date: 02/16/22 Status: Ordered ascorbic acid (V itamin C) 500 MG chewable tablet 1 (one) time each day at the same time. 0 Active B Complex Vitamins (vitamin B complex) tablet (8 sources) B Complex Vitami ns (vitamin B complex) tablet as directed Orally 0 Active betamethasone 0.5 mg/ml / clotrimazole 10 mg/ml topical cream (2 sources) Azole Antifungal, Corticosteroid Start: 020 Lotrisone 0.05%-1% Cream Topical, BID, Refill(s) 0 Start Date: 06/14/20 Status: Ordered cholecalciferol 0.025 mg oral tablet (8 sources) Vitamin D cholecalciferol (Vitamin D3) 25 MCG (1000 UT) tablet 1 (one) time each day at the same time. 0 Active clindamycin 300 mg oral capsule (2 sources) Lincosamide Antibacterial Start: 017 take 2 capsules by mouth every eight hours Start: 12-17-2016 take 2 capsules by mouth every eight hours ferrous sulfate 325 mg delayed release oral tablet (4 sources) Start: 06-08-2023 End: 08-07-2023 take 1 tablet by mouth at mealtime ferrous sulfate (Fe Tabs) 325 (65 Fe) MG EC tablet Indications: Arthritis of right hip Take 1 tablet (325 mg) by mouth in the morning. Take with meals. Do not crush, chew, or split.. 30 tablet 1 06/08/2023 08/07/2023 Active finasteride 5 mg oral tablet (13 sources) 5-alpha Reductase Inhibitor Start: 06-24-2021 take 1 tablet by mouth in the morning finasteride (Proscar) 5 MG tablet Take 5 mg by mouth in the morning. 0 10/21/2022 Active Comment on above: Take 5 mg by mouth. Diflucan (2 sources) Azole Antifungal Start: 06-14-2020 Diflucan Refills(s) 0 Start Date: 06/14/20 Status: Ordered hydroCHLOROthiazide 12.5 mg / irbesartan 150 mg oral tablet (11 sources) Thiazide Diuretic, Angiotensin 2 Receptor Becca Start: 02-08-2023 take 1 tablet by mouth in the morning irbesartan-hydroC HLOROthiazide (Avalide) 150-12.5 MG tablet Indications: Benign essential hypertension (CMS/HCC) Take 1 tablet by mouth in the morning. 100 tablet 2 02/08/2023 Active Start: 02-08-2023 Irbesartan-hyd roCHLOROthiazide 150-12.5 mg per tablet Take by mouth. 0 02/08/2023 Active take 1 tablet by yvon th every twenty-four hours take 1 tablet by yvon th every twenty-four hours Irbesartan-hydroCHLOROthiazide 150-12.5 MG 1 tablet Orally Once a day Active Comment on above: Take by mouth. lidocaine 0.05 mg/mg medicat ed patch (2 sources) Antiarrhythmic, Amide Local Anesthetic Start: 12-17-2022 Start: 12-17-2022 Lidocaine 5 % 1 patch remove after 12 hours Externally Once a day for 30 days Nov, Active meloxicam 15 mg oral tablet (13 sources) Nonsteroidal Anti-inflammatory Drug Start: 01-14-2023 take 1 tablet by mouth at mealtime meloxicam (Mobic) 15 MG tablet Indications: Primary osteoarthritis of first carpometacarpal joint of left hand Take 1 tablet (15 mg) by mouth in the morning. Take with food. 100 tablet 3 01/14/2023 Active Start: 06-14-2020 take 1 mg by mouth once daily meloxicam 15 mg oral tablet mg tab(s), Oral, Daily, Refills(s) 0 Start Date: 06/14/20 Status: Ordered meloxicam (MOBIC ) 7.5 mg tablet Take 7.5 mg by mouth. 0 Active Comment on above: Take 7.5 mg by mouth . Multi Vitamin+ (2 sources) Start: 02-16-2022 Multi Vitamin+ Refill(s) 0 Start Date: 02/16/22 Status: Ordered Multiple Vitamin (Multi Vitamin) tablet (8 sources) Multiple Vitamin (Multi Vitamin) tablet 1 (one) time each day at the same time. 0 Active predniSONE 10 mg oral tablet (2 sources) Start: 12-17-2022 Start: 12-17-2022 predniSONE 10 MG Take 3 tablets by mouth for 3 days then 2 tablets by mouth for 3 days then 1 tablet by mouth for 3 days Orally Once a day for Nov, Active sildenafil 100 mg oral tablet (10 sources) Phosphodiesterase 5 Inhibitor sildenafil (Viagra) 100 MG tablet 1 (one) time each day at the same time. 0 Active solifenacin succinate 10 mg oral tablet (13 sources) Cholinergic Muscarinic Antagonist Start: 11-26-19 take 1 tablet by mouth every twenty-four hours Comment on above: 1 (one) time each da y at the same time. tamsulosin hydrochloride 0.4 mg oral capsule (13 sources) alpha-Adrenergic Becca Start: 08-21-19 23 take 1 capsule by mouth every twenty-four hours in the morning tamsulosin (Flomax) 0.4 MG 24 hr capsule Take 0.4 mg by mouth in the morning and 0.4 mg before bedtime. 0 08/21/2022 Active Start: 06-30-2021 tamsulosin (FL OMAX) 0.4 mg Take 0.4 mg by mouth. 0 07/29/2022 Active Comment on above: Take 0.4 mg by mouth . tiZANidine 4 mg oral tablet (11 sources) Central alpha-2 Adrenergic Agonist Start: 10-07-2022 tiZANidine (Zanaflex) 4 MG tablet 1 tablet as needed Orally at bedtime for 30 days 0 04/03/2022 Active Comment on above: 1 tablet as needed O rally at bedtime for 30 days vitamin B12 (10 sources) Vitamin B12 Start: 02-16-2022 Vitamin B12 Refills(s) 0 Start Date: 02/16/22 Status: Ordered cyanocobalamin ( Vitamin B-12) 100 MCG tablet as directed Orally 0 Active Zinc (2 sources) Start: 02-16-2022 take 1 mg by mouth once daily Zinc mg, Oral, Daily, Refills(s) 0 Start Date: 02/16/22 Status: Ordered zinc gluconate 50 mg oral tablet (8 sources) zinc gluconate 5 0 MG tablet 1 (one) time each day at the same time. 0 Active Completed/Discontinued Medications Medication Drug Class(es) Dates Sig [...] 12-17-2016 Rocephin 500 mg Nov, 500 mg silver sulfADIAZINE 10 mg/ml topical cream (2 [...] activity, # 30 tab(s), Refills(s) 3, [facility]: [facility], 186, cm, 06/17/20 14:49:00 EST, Height/Length Dosing, 122, kg, 06/17/20 14:49:00 EST, Weight Dosing Start Date: 06/17/20 Status: Ordered Problems Active Problems Problem Classification Problem Date Documented Date Episodic/Chronic Diabetes mellitus without complication (8 sources) Impaired glucose tolerance; Translations: [Impaired glucose tolerance (oral)] Onset: 06-30-2023 06-30-2023 Episodic Disorders of lipid metabolism (2 sources) Hyperlipidemia 06-17-2020 Chronic Esophageal disorders (8 sources) Gastroesophageal reflux disease without esophagitis; Translations: [Gastro-esophageal reflux disease without esophagitis] Onset: 01-11-2023 01-11-2023 Chronic Essential hypertension (20 sources) Hypertensive disorder; Translations: [Essential (primary) hypertension] Onset: 08-13-2022 06-17-2020 Chronic Genitourinary symptoms and ill-defined conditions (6 sources) Urge incontinence; Translations: [Post-micturition incontinence ] Onset: 02-16-2022 Chronic Genitourinary symptoms and ill-defined conditions (4 sources) Increased frequency of urination; Translations: [Nocturia] 06-17-2020 Episodic Gout and other crystal arthropathies (2 sources) Gout 06-17-2020 Chronic Headache; including migraine (2 sources) Headache 06-17-2020 Episodic Hyperplasia of prostate (12 sources) Benign prostatic hypertrophy with outflow obstruction; Translations: [Benign prostatic hyperplasia with lower urinary tract symptoms] Onset: 02-16-2022 Chronic Osteoarthritis (20 sources) Arthritis; Translations: [Bilateral primary osteoarthritis of hip] Onset: 11-16-2022 06-17-2020 Chronic Other connective tissue disease (12 sources) History of total hip arthroplasty; Translations: [Presence of right artificial hip joint] Onset: 07-29-2023 07-29-2023 Chronic Other connective tissue disease (2 sources) History of repair of hip joint; Translations: [Presence of right artificial hip joint] 08-05-2023 Chronic Other connective tissue disease (6 sources) Pain in right leg; Translations: [PAIN IN RIGHT LEG] Onset: 10-08-2022 Episodic Other connective tissue disease (5 sources) Muscle pain; Translations: [Myalgia, unspecified site] Onset: 08-04-2023 08-04-2023 Episodic Other injuries and conditions due to external causes (2 sources) Injury of head 06-17-2020 Episodic Other male genital disorders (4 sources) Male erectile dysfunction, unspecified; Translations: [Erectile dysfunction] Onset: 02-16-2022 Chronic Other nervous system disorders (5 sources) Other chronic pain; Translations: [OTHER CHRONIC PAIN] Onset: 10-14-2022 Chronic Other nervous system disorders (8 sources) Carpal tunnel syndrome of right wrist; Translations: [Carpal tunnel syndrome, right upper limb] Onset: 01-11-2023 01-11-2023 Chronic Other nervous system disorders (8 sources) Chronic pain; Translations: [Other chronic pain] Onset: 01-11-2023 01-11-2023 Chronic Other non-traumatic joint disorders (5 sources) Pain in left hip; Translations: [PAIN IN LEFT HIP] Onset: 11-13-2022 Episodic Other non-traumatic joint disorders (1 source) Pain in right hip; Translations: [PAIN IN RIGHT HIP] Onset: 11-25-2022 Episodic Other non-traumatic joint disorders (12 sources) Pain in right hip joint; Translations: [Pain in right hip] Onset: 07-29-2023 07-29-2023 Episodic Other nutritional; endocrine; and metabolic disorders (1 source) Obese class II; Translations: [Body mass index (BMI) 35.0-35.9, adult] Onset: 02-16-2022 Chronic Other nutritional; endocrine; and metabolic disorders (4 sources) Body mass index 30+ - obesity; Translations: [Body mass index (BMI) 38.0-38.9, adult] 02-16-2022 Chronic Other nutritional; endocrine; and metabolic disorders (2 sources) Body mass index (BMI) 38.0-38.9, adult Chronic Other upper respiratory disease (8 sources) Allergic rhinitis; Translations: [Allergic rhinitis, unspecified] Onset: 01-11-2023 01-11-2023 Chronic Screening and history of mental health and substance abuse codes (2 sources) Encounter for screening for depression Episodic Spondylosis; intervertebral disc disorders; other back problems (20 sources) Spondylosis without myelopathy or radiculopathy, lumbar region; Translations: [Other intervertebral disc degeneration, lumbar region] Onset: 04-28-2022 Chronic Unclassified (4 sources) LOW BACK PAIN, UNSPECIFIED; Translations: [LOW BACK PAIN, UNSPECIFIED] Onset: 07-27-2022 Unclassified (1 source) VERTEBROGENIC LOW BACK PAIN; Translations: [VERTEBROGENIC LOW BACK PAIN] Onset: 05-23-2022 Unclassified (1 source) right hip degenerative joint disease Onset: 07-07-2023 Past or Other Problems Problem Classification Problem Date Documented Da te Episodic/Chronic Abdominal hernia (8 sources) Umbilical hernia; Translations: [Umbilical hernia without obstruction or gangrene] Onset: 01-11-2023 01-11-2023 Episodic Coma; stupor; and brain damage (8 sources) Daytime somnolence; Translations: [Somnolence] Onset: 01-11-2023 01-11-2023 Episodic Other diseases of kidney and ureters (8 sources) Disorder of urinary tract; Translations: [Other obstructive and reflux uropathy] Onset: 01-11-2023 01-11-2023 Episodic Other lower respiratory disease (8 sources) Snoring; Translations: [Snoring] Onset: 01-11-2023 01-11-2023 Episodic Spondylosis; intervertebral disc disorders; other back problems (20 sources) Muscle spasm of back; Translations: [Radiculopathy, lumbar region] Onset: 05-01-2022 Episodic Unclassified (1 source) LOW BACK PAIN, UNSPECIFIED; Translations: [LOW BACK PAIN, UNSPECIFIED] Onset: 07-23-2022 Results Test Name Value Interpretation Reference Range Facility XR Hip - right 3 [facility] Result: August 09, 2013 x-rays AP and frog lateral of the right hip demonstrate a Press-Fit hip replacement in good position alignment without signs of loosening fracture or failure. Impression: Stable appearance of right total hip replacement Amauri Blair D.O. [facility] Radiology Study observation (narrative) [facility] XR Hip - right 3 ViewsOrdere d By: Charissa Blair on 08-09-2023 [facility] [employer] Work Phone: XR HIP RT 2-3 VIEWS W OR WO PELVISon 07-07-2023 XR HIP RT 2-3 VIEWS W OR WO PELVIS XR HIP RT 2-3 VIEWS W OR WO PELVIS XR HIP RT 2-3 VIEWS W OR WO PELVIS HISTORY: Hip replacement. COMPARISON: None. IMPRESSION: 1. Hip prosthesis noted without visible acute complication Finalized by Price Delcid MD on 07/07/2023 11:06 AM Normal [facility] CNOVon 04-13-2023 CNOV Office Visit (SPSLUH ) -------- LAWSON VELA ([id number]) 1955 M DEF Date Time Provider Department 04/13/23 11:00 AM LAILA LEWIS During your visit today, we recorded the following information about you: Laila Lewis PA-C 04/15/2023 1:53 PM Signed SPINE SURGERY [...] a week. 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 [facility] Ambulatory Visit Summaryon 0 02-08-2023 Ambulatory Visit Summary LAWSON VELA :1955 Visit Date:02/08/2023 Ambulatory Visit Instructions Your Diagnosis Urge incontinence BPH with urinary obstruction ED (erectile dysfunction) Tests Performed Urnls Dip Stick Auto w/o Microscopy POC 67590 Your Care Team Attending Physician - PAMELA [...] Comments: PRN Where: [facility] [address] , [place] [phone] Medications What How Much When Instructions Unchanged [...] Urnls Dip Stick Auto w/o Microscopy POC 96394 (02/08/2023) Bilirubin Urine Dipstick - Negative Blood Urine Dipstick - Negative Glucose Urine Dipstick - Negative Ketones Urine Dipstick - Negative Leukocytes Urine Dipstick - Negative Nitrite Urine Dipstick - Negative Protein Urine Dipstick - Negative Specific [place] Urine Dipstick - 1.010 Urine Appearance Urine [...] the high (more content not included)... Normal [facility] Patient Educationon 02-09-20 Patient Education Urology [...] stimulation). ? For women, using a medical artist to prevent urine leaks. This is a [...] urine. ? (more content not included)... Normal [facility] Urology Office/Clinic Noteon 02-08-2023 Urology Office/Clinic [...] and history for this patient from Dr. Santiago. I have reviewed and verified the staff [...] carcinoma. Will have pt schedule appt with land survey technician. 1. Urge incontinence (N39.41: Urge incontinence) Pt [...] I, Kaleigh Donato, personally scribed for Dr. Santiago on 02/08/2023 12:18:11. . Documentation recorded by the scribe, Kaleigh Donato, accurately reflects the services(s) I performed and decisions made by me. Authenticated by Dr. Santiago on 02/08/2023 12:21:20. Problem List/Past Medical History [...] vaccine, inacti (more content not included)... Normal [facility] Comment on above: Result Comment: Elec tronically Signed By: Mac SANTIAGO MD\.br\Date and Time Signed: 02/08/23 12:21 EDT\.br\Electronically Co-Signed By: Kaleigh Donato\.br\Date and Time Co-Signed: 02/08/23 12:18 EDT XR lumbar spine 6V w bending on 12-17-2022 XR lumbar spine 6V w bending [address] [address] XRay Report Signed Patient: Lawson Vela MR#: [id number] : 1955 Acct:[id number] Age/Sex: 67 / M ADM Date: 12/17/22 Loc: XD Room: Type: [facility] Attending Dr: Erica MILLER Copies to: ANGELA [...] L5-S1. Impression dictated by: Lenny Cobian Jr., D.OFabio12/17/2022 3:16 PM Dictation Location: [place] [address] Transcribed By: [facility] 12/17/22 1516 Dictated By: Lenny Cobian Jr, DO 12/17/22 1514 Signed By: 12/17/22 1516 Normal [facility] XR lumbar spine 6V w bending [facility] [employer] Other XR lumbar spine 6V w bending [facility] [employer] Other XR lumbar spine 6V w bending [address] [employer] Other XR lumbar spine 6V [place] [address] [employer] Other XR lumbar spine 6V w bending XRay Report [employer] Other XR lumbar spine 6V w bending Signed [employer] Other XR lumbar spine 6V w bending Patient: Lawson Vela MR#: [id number] [employer] Other XR lumbar spine 6V w bending : 1955 Acct:[id number] [employer] Other XR lumbar spine 6V w bending Age/Sex: 67 / M ADM Date: 12/17/22 [employer] Other XR lumbar spine 6V w bending Loc: XD Room: [facility] [employer] Other XR lumbar spine 6V w bending Attending Dr: Erica BEDOYAC [employer] Other XR lumbar spine 6V w bending Copies to: AURELIANO KhanC [employer] Other XR lumbar spine 6V w bending Ordering Provider: ANGELA Khan [employer] Other XR lumbar spine 6V w bending Date of Service: 12/17/22 [employer] Other XR lumbar spine 6V w bending XR/XR lumbar spine 6V w bending: M54.16 [employer] Other XR lumbar spine 6V w bending LUMBAR SPINE - 6 views [employer] [facility] [employer] Other XR lumbar spine 6V w bending CLINICAL HISTORY: Right leg pain and numbness that radiates to toes [employer] Other XR lumbar spine 6V w bending COMPARISON: None [employer] Other XR lumbar spine 6V w bending FINDINGS: Vertebral body heights appear maintained. Diffuse endplate and facet joint degenerative [employer] Other XR lumbar spine 6V w bending changes. Mild diffuse disc space narrowing with relative sparing of L5-S1. No pathological motion [employer] Other XR lumbar spine 6V w bending on flexion or extension views. Limited sidebending. [employer] Other XR lumbar spine 6V w bending XR/XR lumbar spine 6V w bending [employer] Other XR lumbar spine 6V w bending IMPRESSION: [employer] Other XR lumbar spine 6V w bending DEGENERATIVE CHANGES OF THE LUMBAR SPINE WITH MILD DIFFUSE DISC SPACE NARROWING WITH RELATIVE [employer] Other XR lumbar spine 6V w bending SPARING OF L5-S1. [employer] Other XR lumbar spine 6V w bending Impression dictated by: Lenny Cobian Jr., DFabioOFabio12/17/2022 3:16 PM [employer] Other XR lumbar spine 6V w bending Dictation Location: [facility] [employer] Other XR lumbar spine 6V w bending Transcribed By: PWS 12/17/22 [facility] [employer] Other XR lumbar spine 6V w bending Dictated By: Lenny Cobian Jr, DO 12/17/22 [facility] [employer] Other XR lumbar spine 6V w bending Signed By: [employer] Other XR lumbar spine 6V w bending 12/17/22 [facility] [employer] Other XR HIPS JAIRO 3_4V WO PELVISon [...] by: DEVIN KNAPP Date: 2022-11-13 13:07 Normal [facility] 06-07-2022 Lab Reports [id number] 2029 [id number]: 127 Normal [facility] Ambulatory Visit Summaryon 1 08-02-2021 Ambulatory Visit Summary LAWSON VELA :1955 Visit Date:06/01/2022 Ambulatory Visit Instructions Your Diagnosis Urge incontinence BPH with urinary obstruction ED (erectile dysfunction) Tests Performed Urnls Dip Stick Auto w/o Microscopy POC 03186 Your Care Team Attending Physician - PAMELA BAER, Mac Stephenson Primary Care Physician - JAVAD DONATO MD This Is Your Medications List finasteride (finasteride [...] Following Appointments Follow Up with PAMELA BAER, Mac Stephenson, FEROZ When: Where: [facility] [address] , [place] [address]- Medications What How Much When Instructions Unchanged [...] Urnls Dip Stick Auto w/o Microscopy POC 04324 (06/01/2022) Bilirubin Urine Dipstick - Negative Blood Urine Dipstick - Negative Glucose Urine Dipstick - Negative Ketones Urine Dipstick - Negative Leukocytes Urine Dipstick - Negative Nitrite Urine Dipstick - Negative Protein Urine Dipstick - Negative Specific [place] Urine Dipstick - 1.010 Urine Appearance Urine [...] you pass (more content not included)... Normal [facility] Patient Educationon 06-01-20 Patient Education Urology [...] Follow these instructions at home: ? Take [id number] and prescription medicines only as told by [...] You d (more content not included)... Normal [facility] Urology Office/Clinic Noteon 06-01-2022 Urology Office/Clinic [...] and history for this patient from Dr. Santiago. I have reviewed and verified the staff [...] [facility] [address], [place] [address]- Additional Instructions: f/u 6 mos, no labs Patient Education Benign Prostatic Hyperplasia I, Linda George, personally scribed for Dr. Santiago on 06/01/2022 12:13:37. . Documentation recorded by the scribe, Linda George, accurately reflects the services(s) I performed and decisions made by me. Authenticated by Dr. Santiago on 06/01/2022 12:14:51. Problem List/Past Medical History [...] History [place] (more content not included)... Normal [facility] Comment on above: Result Comment: Elec tronically Signed By: Mac SANTIAGO MD\.br\Date and Time Signed: 06/01/22 12:14 EST\.br\Electronically [...] by YASMANY ARAYA on 05/01/2022 1217 Normal [facility] XR Orbits for MRIon 04-27-20 XR Orbits for MRI CLINICAL HISTORY: Prescreening for MRI. COMPARISON: None. RESULT: No radiopaque foreign bodies. No acute osseous findings. IMPRESSION: No radiopaque foreign bodies. Report reported and signed by Javad Dickens on 04/27/2022 1540 Normal [facility] XR Spine Lumbar 4+ Views*on 04-06-2022 XR [...] by Lenny Cook on 04/06/2022 1106 Normal [facility] Specialist Ambulatory Visit Summaryon 0 02-16-2022 Ambulatory Visit Summary LAWSON VELA :1955 Visit Date:02/16/2022 Ambulatory Visit Instructions Your Diagnosis BPH with urinary obstruction ED (erectile dysfunction) Urge incontinence BMI 35.0-35.9,adult Tests Performed Urnls Dip Stick Auto w/o Microscopy POC 76208 Your Care Team Attending Physician - PAMELA [...] BAER, Mac Stephenson Where: [facility] Patient Educationon 02-17-20 Patient Education Nutrition Calorie Counting for Weight [...] You could (more content not included)... Normal [facility] Urology Office/Clinic Noteon 02-16-2022 Urology Office/Clinic [...] and history for this patient from Dr. Santiago Review of Systems PHQ Score Initial Depression [...] Follow-up With When Contact Information PAMELA BAER, FEROZ Lopez In 6 months [address] [id number] [facility] (1) Additional Instructions: Patient Education Benign Prostatic Hyperplasia Calorie Counting for Weight Loss Allegra Perez personally scribed for Dr. Santiago on 02/16/2022 11:26:03. . Documentation recorded by the scribe, Allegra Tsai, accurately reflects the services(s) I performed and decisions made by me. Authenticated by Dr. Santiago on 02/16/2022 11:28:26. Problem List/Past Medical History [...] SARS-CoV-2 (COVI (more content not included)... Normal [facility] Comment on above: Result Comment: Elec tronically Signed By: Mac SANTIAGO MD\.br\Date and Time Signed: 02/16/22 11:28 EDT\.br\Electronically Co-Signed By: Allegra Tsai\.br\Date and Time Co-Signed: 02/16/22 11:26 EDT Vital Signs Date Time Vital Sign Value Performing Clinician Facility 12-17-2022 13:00-0400 Body height 182.88 cm [facility] [employer] Other 12-17-2022 13:00-0400 Body mass index (BMI) [Ratio] 38.51 kg/m2 [facility] [facility] Other 12-17-2022 13:00-0400 Body weight 128.82 kg [facility] [employer] Other 12-17-2022 13:00-0400 Diastolic blood pressure 88 mm[Hg] [facility] Other 12-17-2022 13:00-0400 Systolic blood pressure 146 mm[Hg] [facility] [employer] Other 06-01-2022 11:29-0500 Blood Pressure Location Mac SANTIAGO [facility] 06-01-2022 11:29-0500 Diastolic blood pressure 76 mm[Hg] Mac SANTIAGO [facility] 06-01-2022 11:29-0500 Heart rate 70 /min Macmichelle SANTIAGO [facility] 06-01-2022 11:29-0500 Respiratory rate 16 /min Mac SANTIAGO [facility] 06-01-2022 11:29-0500 Systolic blood pressure 128 mm[Hg] Mac SANTIAGO [facility] 02-16-2022 10:28-0400 Blood Pressure Location Mac SANTIAGO [facility] 02-16-2022 10:28-0400 Diastolic blood pressure 84 mm[Hg] Macmichelle SANTIAGO [facility] 02-16-2022 10:28-0400 Heart rate 68 /min Macmichelle SANTIAGO [facility] 02-16-2022 10:28-0400 Respiratory rate 16 /min Macmichelle SANTIAGO [facility] 02-16-2022 10:28-0400 Systolic blood pressure 136 mm[Hg] Macmichelle SANTIAGO [facility] Encounters Encounter Date Encounter Type Care Provider Facility Start: 08-16-2023 End: 08-16-2023 ambulatory JEANNA MENDIOLA Not Available Start: 08-13-2023 End: 08-13-2023 ambulatory NAGI PLATA Not Available Start: 08-09-[facility]23 [facility] Jeanna Don ht OPTOMETRIC COORDINATOR Work Phone: [facility] Start: 08-09-2023 Bamboo flowsheet Jeanna finney OPTOMETRIC COORDINATOR Work Phone: [facility] Start: 08-09-2023 End: 08-09-2023 Postop follow up visit related to original px Jose Hernández RISK COMPLIANCE MANAGER Work Phone: [facility] Comment on above: 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; Status post right hip replacement Start: 08-09-2023 End: 08-10-2023 ambulatory Jeanna Mendiola OPTOMETRIC COORDINATOR Work Phone: [facility] Comment on above: Right hip pain (Prim billie Dx); Status post total hip replacement, right; Arthritis of right hip Start: 08-06-2023 End: 08-06-2023 ambulatory JEANNA MENDIOLA Not Available Start: 08-06-2023 End: 08-06-2023 ambulatory Jeanna Mendiola OPTOMETRIC COORDINATOR Work Phone: [facility] Comment on above: Right hip pain (Prim billie Dx); Status post total hip replacement, right; Arthritis of right hip Start: 08-02-2023 Bamboo flowsheet Jeanna finney OPTOMETRIC COORDINATOR Work Phone: [facility] Start: 08-02-2023 Bamboo flowsheet Jeanna finney OPTOMETRIC COORDINATOR Work Phone: [facility] Start: 08-02-2023 End: 08-02-2023 ambulatory JEANNA MENDIOLA Not Available Start: 08-02-2023 End: 08-02-2023 ambulatory Jeanna Mendiola OPTOMETRIC COORDINATOR Work Phone: [facility] Comment on above: Right hip pain (Prim billie Dx); Status post total hip replacement, right; Arthritis of right hip Start: 07-29-2023 End: 07-29-2023 ambulatory Nagi Plata PT Work Phone: [facility] Comment on above: Right hip pain (Prim billie Dx); Status post total hip replacement, right Start: 07-12-2023 End: 07-12-2023 ambulatory JOSE HERNÁNDEZ Not Available Start: 07-08-2023 End: 07-08-2023 ambulatory DEVIN SAUL [facility] Start: 07-07-2023 End: 07-08-2023 ambulatory [facility] Start: 07-07-2023 End: 07-07-2023 ambulatory [facility] Start: 07-05-2023 End: 07-06-2023 ambulatory [facility] Start: 07-05-2023 Encounter for other preprocedural examination [facility] Start: 06-30-2023 End: 06-30-2023 ambulatory JAVAD DONATO Not Available Start: 06-08-2023 End: 06-09-2023 ambulatory CHARISSA Rose MORRILL Not Available Start: 06-07-2023 End: 06-07-2023 ambulatory CLAUDINE Brett CHOUDHARYSUJATA Not Available Start: 05-17-2023 End: 05-17-2023 ambulatory JAVAD DONATO Not Available Start: 04-13-2023 End: 04-13-2023 ambulatory LAILA LEWIS Facility:[facility] Start: 04-13-2023 End: 04-13-2023 Patient encounter procedure Laila Lewis PA-C Work Phone: [facility] Comment on above: Spinal stenosis, lum bar region with neurogenic claudication (Primary Dx); Bilateral hip joint arthritis Start: 02-08-2023 End: 02-09-2023 ambulatory Mac SANTIAGO Facility:[facility] Start: 01-28-2023 Chart abstracting Camron Mix MD Work Phone: Neurology Start: 12-17-2022 End: 12-17-2022 Patient encounter procedure II Javad Donato Work Phone: [facility] Work Phone: Start: 12-17-2022 End: 12-17-2022 ambulatory II Javad Donato Work Phone: [facility] Work Phone: Start: 12-17-2022 Encounter for other specified special examinations Erica Xiong [facility] Start: 12-17-2022 Office outpatient ne w 45 minutes Erica Xiong [facility] Start: 11-24-2022 End: 11-25-2022 ambulatory NARENDRANATH LAKSHMIPATHY . Facility:[facility] Start: 11-13-2022 End: 11-14-2022 ambulatory NARENDRANATH LAKSHMIPATHY . Facility:[facility] Start: 11-10-2022 End: 11-11-2022 ambulatory NARENDRANATH LAKSHMIPATHY . Facility:[facility] Start: 10-08-2022 End: 10-09-2022 ambulatory NARENDRANATH LAKSHMIPATHY . Facility:[facility] Start: 09-10-2022 End: 09-11-[address] ANTIONE HAWTHORNE . Facility:[facility] Start: 08-13-2022 Encounter for preprocedural cardiovascular examination DR ANTIONE HAWTHORNE . [facility] Start: 08-11-2022 End: 08-11-[address] ANTIONE HAWTHORNE . Facility:[facility] Start: 08-07-2022 End: 08-08-[address] ANTIONE HAWTHORNE . Facility:[facility] Start: 08-07-2022 End: 08-08-2022 Encounter for preprocedural cardiovascular examination DR ANTIONE HAWTHORNE . Facility:[facility] Start: 07-23-2022 End: 07-24-[address] ANTIONE HAWTHORNE . Facility:[facility] Start: 07-07-2022 End: 07-07-[address] ANTIONE HAWTHORNE . Facility:[facility] Start: 06-25-2022 End: 06-26-[address] ANTIONE HAWTHORNE . Facility:[facility] Start: 06-09-2022 End: 06-09-[address] ANTIONE HAWTHORNE . Facility:[facility] Start: 06-01-2022 End: 06-02-2022 ambulatory Mac SANTIAGO Facility:[facility] Start: 06-01-2022 End: 06-01-2022 Patient encounter procedure Mac SANTIAGO [facility] Start: 05-19-2022 End: 05-20-[address] ANTIONE HAWTHORNE . Facility:[facility] Start: 05-05-2022 End: 05-05-[address] ANTIONE HAWTHORNE . Facility:[facility] Start: 04-28-2022 End: 04-29-[address] ANTIONE HAWTHORNE . Facility:[facility] Start: 04-27-2022 End: 05-14-[address] JAVAD DONATO Facility: Start: 02-16-2022 End: 02-17-2022 ambulatory Mac SANTIAGO Facility:[facility] Start: 02-16-2022 End: 02-16-2022 Patient encounter procedure Mac SANTIAGO [facility] Procedures Date Procedure Procedure Detail Performing Clinician Start: 08-09-2023 Radex hip unilateral with pelvis 2-3 views Jose Hernández NP Work Phone: Start: 12-17-2022 X-ray of lumbar spin e, six views including bending views II Javad Donato Work Phone: Start: 04-22-2021 Urodynamic studies Patr alex SANTIAGO Start: 11-26-2020 Cystoscopy Mac KAPADIA Start: 07-12-2017 Colonoscopy Nagi hernandez PT Work Phone: Start: 06-28-2009 Vasectomy Mac KAPADIA Start: 06-28-1966 Appendectomy Mac KAPADIA Carpal tunnel syndro me (disorder) Mac SANTIAGO Colonoscopy Mac SANTIAGO Plan of Treatment Date Care Activity Detail Author Start: 07-12-2027 Screening for malign ant neoplasm of colon [facility] Start: 05-17-2024 Medicare Annual Wellness (AWV) Medicare Annual Wellness (AWV) [facility] Start: 09-20-2023 End: 09-20-2023 Patient encounter procedure 09/20/2023 10:30 AM EDT Office Visit [facility] [address] [place] [phone] Jose Hernández, RISK COMPLIANCE MANAGER [address] [place] [address] [facility] Start: 08-27-2023 End: 08-27-2023 ambulatory 08/27/2023 9:30 AM EST Treatment [facility] [address] [place] [phone] Nagi Plata, PT [address] [place] [address] [facility] Start: 08-23-2023 End: 08-23-2023 ambulatory 08/23/2023 9:30 AM EST Treatment [facility] [address] [place] [phone] Jeanna Mendiola, OPTOMETRIC COORDINATOR [address] [place] [address] [facility] Start: 08-20-2023 End: 08-20-2023 ambulatory 08/20/2023 9:30 AM EST Treatment [facility] [address] [place] [phone] Jeanna Mendiola, OPTOMETRIC COORDINATOR [address] [place] [address] [facility] Start: 08-16-2023 End: 08-16-2023 ambulatory 08/16/2023 9:30 AM EST Treatment [facility] [address] [place] [phone] Jeanna Mendiola, OPTOMETRIC COORDINATOR [address] [place] [address] [facility] Start: 08-13-2023 End: 08-13-2023 ambulatory 08/13/2023 9:30 AM EST Treatment [facility] [address] [place] [address] Nagi Plata, PT [address] [place] [address] [facility] Start: 08-09-2023 End: 08-09-2023 Patient encounter procedure 08/09/2023 1:00 PM EST Office Visit [facility] [address] [place] [address] Jose Hernández, RISK COMPLIANCE MANAGER [address] [place] [address] [facility] Start: 08-09-2023 End: 08-09-2023 ambulatory [facility] Comment on above: Arrived Start: 08-06-2023 End: 08-06-2023 ambulatory 08/06/2023 9:30 AM EST Treatment [facility] [address] [place] [address] Jeanna Mendiola, OPTOMETRIC COORDINATOR [address] [place] [address] [facility] Start: 08-02-2023 End: 08-02-2023 ambulatory [facility] Comment on above: Arrived Start: 02-26-2023 Influenza vaccination C [facility] Start: 06-28-2022 ADVANCE DIRECTIVE DISCUSSION ADVANCE DIRECTIVE DISCUSSION [facility] Start: 06-28-2022 DEPRESSION ASSESSMENT DEPRESSION ASS ESSMENT [facility] Start: 2019 PNEUMOCOCCAL: 65+ (1 - PCV) PNEUMOCOCCAL: 65+ (1 - PCV) [facility] Start: 07-08-2015 Shingrix Vaccine (2 of 3) Shingrix Vaccine (2 of 3) [facility] Start: 2014 RSV Vaccine (1 - 1-d ose 60+ series) RSV Vaccine (1 - 1-dose 60+ series) [facility] Start: 01-02-2004 SHINGRIX VACCINE (1 of 2) SHINGRIX VACCINE (1 of 2) [facility] Start: 1999 COLOGUARD (FIT-DNA) COLOGUARD (FIT-D NA) [facility] Start: 1999 Colonoscopy COLONOSCOPY [facility] Start: 1999 COLORECTAL CANCER SCREENING COLORECTAL CANCER SCREENING [facility] Start: [address] COLONOGRAPHY [facility] Start: 1999 DIABETES SCREEN DIABETES SCREEN [facility] Start: 1999 Diabetes Screening Diabetes Screenin g [facility] Start: 1999 FECAL OCCULT BLOOD FECAL OCCULT BLOO D [facility] Start: 1999 SIGMOIDOSCOPY SIGMOIDOSCOPY [facility] Start: 1989 Lipid 1996 panel - Serum or Plasma Lipid Screening [facility] Start: 1989 LIPID SCREEN LIPID SCREEN [facility] Start: 1973 Urine microalbumin profile [facility] Start: 01-02-1972 HEPATITIS C SCREENING HEPATITIS C SC REENING [facility] Start: 1954 COVID-19 VACCINE (#1) COVID-19 VACCI NE (#1) [facility] Start: 1954 Abdominal Aortic Aneurysm Screening Abdominal Aortic Aneurysm Screening [facility] Start: 1954 Screening for malign ant neoplasm of colon [facility] End: 05-12-2024 XR HIP BILATERAL 5V PEL/AP/LAT EACH HIP XR HIP BILATERAL 5V PEL/AP/LAT EACH HIP Radiology Routine Bilateral hip joint arthritis 1 Occurrences starting 04/13/2023 until 05/12/2024 [facility] Work Phone: Comment on above: 1 Occurrences starti ng 04/13/2023 until 05/12/2024 [facility] Immunizations Immunization Date Immunization Notes Care Provider Estevan sorto 05-17-2023 Influenza, High-dose Seasonal, Quadrivalent, Preservative Free Nagi Narendra PT Work Phone: [facility] 04-03-2022 influenza, high dose seasonal, preservative-free Nagi Narendra PT Work Phone: [facility] 04-03-2022 Influenza, High-dose Seasonal, Quadrivalent, Preservative Free Nagi Narendra PT Work Phone: [facility] 04-03-2022 influenza virus vaccine, unspecified formulation Laila Lewis PA-C Work Phone: [facility] 05-21-2020 influenza, injectabl e, quadrivalent, contains preservative Nagi Narendra PT Work Phone: [facility] 05-21-2020 pneumococcal conjuga te vaccine, 13 valent Nagi Narendra PT Work Phone: [facility] 04-10-2020 influenza virus vaccine, unspecified formulation Mac SANTIAGO [facility] 05-03-2019 influenza, injectabl e, madin sancho canine kidney, preservative free Nagi Narendra PT Work Phone: [facility] 05-03-2019 pneumococcal polysaccharide vaccine, 23 valent Nagi Narendra PT Work Phone: [facility] 05-02-2018 seasonal influenza, intradermal, preservative free Nagi Narendra PT Work Phone: [facility] 06-07-2017 influenza, injectabl e, quadrivalent, contains preservative Nagi Narendra PT Work Phone: [facility] 05-13-2015 zoster vaccine, live Nagi Sp collado PT Work Phone: [facility] NEGATED: Highlighted row has not occurred!08-18-2021 SARS-CoV-2 (COVID-19) Ad26 vaccine, recombinant Mac SANTIAGO [facility] Payers Date Payer Category Payer Self-pay 2021 Unknown [id number] 2018 Medicare [id number] 1959 Medicare [id number] 1959 Unknown [id number] 1954 Unknown [id number] 2.16.84 0.1.801043.3.579.2.593 1954 Unknown [id number] 2.16.84 0.1.271701.3.579.2.593 1954 Unknown [id number] 2.16.84 0.1.198907.3.579.2.593 1954 Unknown [id number] 2.16.84 0.1.783104.3.579.2.593 1954 Unknown [id number] 2.16.84 0.1.174922.3.579.2.593 1954 Unknown [id number] 2.16.84 0.1.473797.3.579.2.593 1954 Unknown [id number] 2.16.84 0.1.247147.3.579.2.593 1954 Unknown [id number] 2.16.84 0.1.507277.3.579.2.593 1954 Unknown [id number] 2.16.84 0.1.579722.3.579.2.593 1954 Unknown [id number] 2.16.84 0.1.396492.3.579.2.593 1954 Unknown [id number] 2.16.84 0.1.400673.3.579.2.593 1954 Unknown [id number] 2.16.84 0.1.419949.3.579.2.593 1954 Unknown [id number] 2.16.84 0.1.521765.3.579.2.593 1954 Unknown [id number] 2.16.84 0.1.941919.3.579.2.593 1954 Unknown [id number] 2.16.84 0.1.561393.3.579.2.593 1954 Unknown [id number] 2.16.8 40.1.538958.3.579.2.727 1954 Unknown [id number] 2.16.8 40.1.987105.3.579.2.727 1954 Unknown [id number] 2.16.8 40.1.098002.3.579.2.727 1954 Unknown [id number] 2.16.84 0.1.555084.3.579.2.1286 1954 Unknown [id number] 2.16.84 0.1.141096.3.579.2.1286 1954 Unknown [id number] 2.16.84 0.1.062222.3.579.2.1286 1954 Unknown [id number] 2.16.84 0.1.331987.3.579.2.1286 1954 Unknown [id number] 2.16.84 0.1.214052.3.579.2.1286 1954 Unknown [id number] 2.16.84 0.1.815879.3.579.2.1259 1954 Unknown [id number] 2.16.84 0.1.102392.3.579.2.1259 1954 Unknown [id number] 2.16.84 0.1.428772.3.579.2.1259 1954 Unknown [id number] 2.16.84 0.1.494078.3.579.2.1259 1954 Unknown [id number] 2.16.84 0.1.262851.3.579.2.1259 1954 Unknown [id number] 2.16.84 0.1.137792.3.579.2.1259 1954 Unknown [id number] 2.16.84 0.1.399419.3.579.2.1259 1954 Unknown [id number] 2.16.84 0.1.865656.3.579.2.1259 1954 Unknown [id number] 2.16.84 0.1.602420.3.579.2.1259 1954 Unknown [id number] 2.16.840 .1.704668.3.579.2.9 1954 Unknown [id number] 2.16.840 .1.532818.3.579.2.9 1954 Unknown [id number] 2.16.840 .1.125523.3.579.2.9 1954 Unknown [id number] 2.16.840 .1.431982.3.579.2.9 1954 Unknown [id number] 2.16.840 .1.925647.3.579.2.1258 Unknown [id number] 2.16.8 40.1.603151.3.579.2.531 Social History Date Type Detail Facility Start: 05-05-2021 End: 01-11-2023 Ex-smoker (finding) [facility] Start: 04-15-2023 End: 05-10-2023 Male [facility] Start: 1955 Sex Assigned At Male [facility] Start: 02-02-2023 Gender identity Identifies as male gender (finding) [facility] Start: 02-02-2023 Sexual orientation Heterosexual (finding) [facility] End: 09-27-1975 History of tobacco use Current smoker [facility] Work Phone: End: 09-27-1975 History of tobacco use Cigarette Smoker [facility] Work Phone: Start: 04-15-2023 End: 05-10-2023 History of Social function [facility] Adult Depression Screening Assessment 1 [facility] Start: 01-11-2023 Tobacco use and exposure Smokeless tobacco non-user [facility] Start: 07-12-2023 End: 02-12-2024 Alcohol intake Current drinker of alcohol (finding) [facility] Within the last year , have you been afraid of your partner or ex-partner? No [facility] Do you belong to any clubs or organizations such as voodoo groups, unions, fraternal or athletic groups, or school groups? Yes [facility] Are you now , , , , never or living with a partner? Living with partner [facility] How often to you hav e a drink containing alcohol? 2-3 time sa week [facility] How many standard dr inks containing alcohol do you have on a typical day? 1 or 2 [facility] How often do you hav e 6 or more drinks on 1 occasion? Never [facility] How hard is it for y ou to pay for the very basics like food, housing, medical care, and heating Somewhat hard [facility] Do you feel stress - tense, restless, nervous, or anxious, or unable to sleep at night because your mind is troubled all the time - these days [OSQ] To some extent [facility] (I/We) worried whemary er (my/our) food would run out before (I/we) got money to buy more. Never true [facility] Functional Status Date Assessment Result Facility 06-01-2022 Functional Status N/A [facility] 02-16-2022 N/A [facility] Clinical Notes 02-16-2022 to 08-09-2023 Jose Hernández, YISEL - 08/09/2023 1:00 PM ESTPatient Laila Vizcaino PA-C - 04/13/2023 11:00 AM Laila Panda PA-C - 02/12/2023 12:54 PM EDT Note Date & Type Note Facility 08-09-2023 History of Present illness Narrative Images from the original note were not included. Chief Complaint Patient presents with Right Hip - Follow-up HISTORY OF PRESENT ILLNESS: Lawson Vela is an 68 y.o. @ male. po x 4 weeks 5 days s/p RT NASH 07/07/23. Walking well with walker. Continues PT and HEP. Denies much pain in hip, states he has already been able to do more now than before sx. Taking TYL before bed. Continues sleeping in recliner but not sleeping well. Admits N/T when sleeping in chair. Taking Fe every other day and ASA. Wearing compression sock. Denies issues with incision. Doing well. ALLERGIES: Allergies Allergen Reactions Carvedilol Other Reaction(s): dizziness HOME MEDICATIONS: Current Outpatient Medications Medication Instructions ascorbic acid (Vitamin C) 500 MG chewable tablet Every 24 hours B Complex Vitamins (vitamin B complex) tablet as directed Orally cholecalciferol (Vitamin D3) 25 MCG (1000 UT) tablet Every 24 hours cyanocobalamin (Vitamin B-12) 100 MCG tablet as directed Orally finasteride (PROSCAR) 5 mg, Oral, Daily irbesartan-hydroCHLOROthiazide (Avalide) 150-12.5 MG tablet 1 tablet, Oral, Daily meloxicam (MOBIC) 15 mg, Oral, Daily, Take with food Multiple Vitamin (Multi Vitamin) tablet Every 24 hours sildenafil (Viagra) 100 MG tablet Every 24 hours solifenacin (VESIcare) 10 MG tablet Every 24 hours tamsulosin (FLOMAX) 0.4 mg, Oral, 2 times daily tiZANidine (Zanaflex) 4 MG tablet 1 tablet as needed Orally at bedtime for 30 days zinc gluconate 50 MG tablet Every 24 hours PHYSICAL EXAM: Right Ankle Exam Comments: Right Hip Exam Right hip exam is normal. Tenderness The patient is experiencing tenderness in the lateral (minmal soreness lateral hip). Range of Motion Right hip abduction: not stressed with recent surgery. Adduction: normal Extension: normal Flexion: normal Muscle Strength Adduction: 5/5 Flexion: 5/5 Other Erythema: absent Scars: present (Well healed, no discharge or drainage) Sensation: normal Pulse: present Comments: The operative lower extremity was neurovascularly intact without any sensorimotor deficits noted distal to the operative hip. Patient was able to motor feet, toes, ankle and knee in all anatomic planes with 5 out of 5 strength to the operative lower extremity with abduction stress testing not preformed secondary to surgery healing. Dorsalis pedis and posterior tibial pulses were present and equal bilaterally. Sensation to light touch was intact all dermatomes to lower extremities bilaterally. Negative Homans and negative Dk were noted bilaterally to lower extremities. There was no evidence of infection the lower extremities bilaterally. Compartments were soft to lower extremities bilaterally. Vitals: There is no height or weight on file to calculate BMI. IMAGING: XR hip right 2 or 3 views Imaging Result: August 09, 2013 x-rays AP and frog lateral of the right hip demonstrate a Press-Fit hip replacement in good position alignment without signs of loosening fracture or failure. Impression: Stable appearance of right total hip replacement Amauri Blair D.O. ASSESSMENT: ICD-10-CM 1. Primary osteoarthritis of right hip M16.11 XR hip right 2 or 3 views 2. Status post right hip replacement Z96.641 Procedures PLAN: Patient states that his hip is feeling better with improved ROM and decreased pain. He is doing well with PT. I reviewed xray with patient which showed stable RT NASH. He will continue with walker until 6 weeks PO and then will transition to cane. He will follow up in 6 weeks for RCK. Questions answered in laymen terms at the bedside. The diagnosis, home exercise plan and any ongoing restrictions/ recommendations reviewed. If unable to be reached in office, I recommend evaluation at nearest Emergency Room if any symptoms worsened or new symptoms develop for requiring urgent evaluation. Jose Hernández NEWSPAPER OR PERIODICAL EDITOR-PRODUCT TEST ENGINEER documented in this encounter [facility] 04-13-2023 Note HNO ID: [id number] Author: Laila Lewis PA-C Service: ? Author Type: Physician Emergency Generator Mechanic Type: Progress Notes Filed: 04/15/2023 1:53 PM [...] a week. Hydrocodone, Meloxicam Zanaflex, Lidocaine patches career development coordinator Prior to ablation symptoms on left have [...] days 2 More (more content not included)... [facility] 04-13-2023 Instructions Laila Lewis PA-C - 04/13/2023 11:08 AM EDT -Recommend [...] of inflammation which is considered uptake). Laila Lewis PA-C [phone] documented in this encounter [facility] 04-13-2023 History of Present illness Narrative Images from the original note [...] a week. Hydrocodone, Meloxicam Zanaflex, Lidocaine patches career development coordinator Prior to ablation symptoms on left have [...] the patient MRI Lumbar: Narrative PERFORMED AT [facility] LOCATION:[facility] CLINICAL HISTORY: Low back pain extending into the right lower extremity. COMPARISON: 05/01/2022 TECHNIQUE: Multiplanar MR imaging of the lumbar spine was performed. FINDINGS: The spine is visualized from the J56-H5-Q0 levels on the sagittal sequences, assuming a [...] narrowing. At the L5-S1 level, there is pnft-ae-inekfrfs diffuse disc bulging and moderate hypertrophic facet changes, which results in moderate to marked neural foraminal narrowing. Procedure Note CONVERSION, GENERIC - 11/13/2022 PERFORMED AT [facility] LOCATION:[facility] CLINICAL HISTORY: Low back pain extending into the right lower extremity. COMPARISON: 05/01/2022 TECHNIQUE: Multiplanar MR imaging of the lumbar spine was performed. FINDINGS: The spine is visualized from the B51-O3-F2 levels on the sagittal sequences, assuming a [...] narrowing. At the L5-S1 level, there is ojlf-jc-kpwibyja diffuse disc bulging and moderate hypertrophic facet changes, which results in moderate to marked neural foraminal narrowing. 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 Report reported and signed by James Vizcaino on 10/19/2022 1406 CONVERSION, GENERIC - 11/14/2022 PERFORMED AT [facility] LOCATION:[place] [id number] EXAMINATION: XR HIPS JAIRO 3_4V WO [...] Making Level: 4 - Moderate SIGNATURE: Laila Lewis PA-C PATIENT NAME: Lawson Vela DATE: April 13, 2023 TIME: 8:55 AM PAGER: documented in this encounter [facility] 02-12-2023 Note HNO ID: [id number] Author: Laila Lewis PA-C Service: ? Author Type: Physician Emergency Generator Mechanic Type: Progress Notes Filed: 02/12/2023 12:58 PM Note Text: Per Triage: Lawson Vela is a 68 year old male that requests evaluation of lumbar spine. Per review, they have symptoms of LBP into left leg pain. Positive for numbness, difficulty walking and weakness. CMT: PT Hydrocodone career development coordinator Studies (Reports unless indicated) MRI Lumbar: Narrative PERFORMED AT [facility]ATION[facility] CLINICAL HISTORY: Low back pain extending into the right lower extremity. COMPARISON: 05/01/2022 TECHNIQUE: Multiplanar MR imaging of the lumbar spine was performed. FINDINGS: The spine is visualized from the Q35-C6-Q7 levels on the sagittal sequences, assuming a [...] narrowing. At the L5-S1 level, there is rrmi-hu-ovxbsywv diffuse disc bulging and moderate hypertrophic facet changes, which results in moderate to marked neural foraminal narrowing. Procedure Note CONVERSION, GENERIC - 11/13/2022 PERFORMED AT [facility] LOCATION:[facility] CLINICAL HISTORY: Low back pain extending into the right lower extremity. COMPARISON: 05/01/2022 TECHNIQUE: Multiplanar MR imaging of the lumbar spine was performed. FINDINGS: The spine is visualized from the K36-K1-B7 levels on the sagittal sequences, assuming a [...] narrowing. At the L5-S1 level, there is chiy-pm-lxceykpa diffuse disc bulging and moderate hypertrophic facet changes, which results in moderate to marked neural foraminal narrowing. 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 Report reported and signed by James Vizcaino on 10/19/2022 0838 Disposition: Please schedule with Laila. [facility] 02-12-2023 History of Present illness Narrative Per Triage: Lawson Vela is a 68 year old male that requests evaluation of lumbar spine. Per review, they have symptoms of LBP into left leg pain. Positive for numbness, difficulty walking and weakness. CMT: PT Hydrocodone career development coordinator Studies (Reports unless indicated) MRI Lumbar: Narrative PERFORMED AT [facility] LOCATION:[facility] CLINICAL HISTORY: Low back pain extending into the right lower extremity. COMPARISON: 05/01/2022 TECHNIQUE: Multiplanar MR imaging of the lumbar spine was performed. FINDINGS: The spine is visualized from the X03-K0-Y4 levels on the sagittal sequences, assuming a [...] narrowing. At the L5-S1 level, there is ucxu-zm-igyfrqpg diffuse disc bulging and moderate hypertrophic facet changes, which results in moderate to marked neural foraminal narrowing. Procedure Note CONVERSION, GENERIC - 11/13/2022 PERFORMED AT [facility] LOCATION:[facility] CLINICAL HISTORY: Low back pain extending into the right lower extremity. COMPARISON: 05/01/2022 TECHNIQUE: Multiplanar MR imaging of the lumbar spine was performed. FINDINGS: The spine is visualized from the T51-Q6-G5 levels on the sagittal sequences, assuming a [...] narrowing. At the L5-S1 level, there is ybkq-hj-sevufzbd diffuse disc bulging and moderate hypertrophic facet changes, which results in moderate to marked neural foraminal narrowing. 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 Report reported and signed by James Vizcaino on 10/19/2022 1406 Disposition: Please schedule with Laila. Patient name: Lawson Vela Are you being referred by a [place] for Spine Health Provider or Pain Management Provider at [facility]? No If answer is YES [...] the facility where the MRI/CT/myelogram was completed: [facility] Imaging Address: [address] [id number] [facility] Address: [address] [place] [address] MRI/CT/myelogram viewable in Epic: No If not, please provide [phone] to fax in imaging reports for review. [...] physical therapy was completed PT Injections [facility] Address: [address] [place] [address] Have you tried any other kinds of [...] where the surgery was completed: Additional Comments [phone] (Home Phone) documented in this encounter [facility] 01-28-2023 Note HNO ID: [id number] Author: Mookie Lee Service: ? Author Type: ? Type: Progress Notes Filed: 02/12/2023 12:58 PM Note Text: Patient name: Lawson Vela Are you being referred by a [place] for Spine Health Provider or Pain Management Provider at [facility]? No If answer is YES [...] the facility where the MRI/CT/myelogram was completed: [facility] Imaging Address: [address] [facility] [place] [address] [facility] Address: [address] [place] [address] MRI/CT/myelogram viewable in Epic: No If not, please provide [phone] to fax in imaging reports for review. [...] physical therapy was completed PT Injections [facility] Address: [address] [place] [address] Have you tried any other kinds of [...] where the surgery was completed: Additional Comments [phone] (Home Phone) [facility] 12-17-2022 Evaluation note Encounter Date Diagnosis Assessment Notes Nov, Lumbar radiculopathy (ICD-10 - M54.16) I reviewed imaging with Dr eJnkins and independently reviewed the MRI of lumbar spine face to face with patient that shows L4-L5, L5-S1 disc moderate foramen stenosis with moderate disc hernation. WIll order Lumbar 6 v. Will Continue with pharmacological management as prescribed we will add lidocaine patches and a prednisone taper. Advised not to take any jxsw-ogu-urpuama ibuprofen while taking prednisone. OARRS reviewed . [...] spine, education on diet, decrease sugar intake. [employer] Other 05-16-2023 NoteCONSULTATION CONSULTATION DATE: 11/10/2022 TO: [...] our patients to inform us about any kylr-kuk-hnpaivm medications or herbal remedies/nutritional supplements/alternative remedies. 2. [...] treatment options with their primary care provider.[facility] [id number] Note CONSULTATION CONSULTATION DATE: 10/08/2022 TO: Javad [...] our patients to inform us about any ygev-pza-uogetrf medications or herbal remedies/nutritional supplements/alternative remedies. 2. [...] treatment options with their primary care provider.[facility] [id number] Note CONSULTATION CONSULTATION DATE: 09/10/2022 HISTORY: This [...] a tightness in that region. Medications include Redford 5/325 daily, tizanidine 4 mg q.h.s., Mobic [...] in three months' time unless otherwise indicated.[facility] [id number] NoteCONSULTATION PROCEDURE DATE: 09/10/2022 PREOPERATIVE DIAGNOSIS: Bilateral [...] pattern, and patient tolerated the procedure well.[facility] [id number] Note CONSULTATION CONSULTATION DATE: 07/23/2022 HISTORY OF [...] current medications include Mobic 50 mg daily, Redford 5/325 per his PCP daily p.r.n. and [...] up in the office after the procedure.[facility] [id number] NoteCONSULTATION CONSULTATION DATE: 06/25/2022 HISTORY OF PRESENT [...] with a vitamin regimen and he takes Redford 5/325 daily p.r.n., and Mobic 15 mg [...] following his procedure here in the office.[facility] [id number] Hospital Discharge instructions Patient Education 06/01/2022 08:22:09 [...] urethra. Follow these instructions at home: Take bsin-mre-sthvyod and prescription medicines only as told by [...] 06/14/2006 Document Revised: 05/09/2019 Document Reviewed: 07/19/2017 [employer] Patient Education [employer]. Follow Up Care 02/16/2022 11:28:21 With:PAMELA BAER, Mac Stephenson, URL Address: [facility] [address] [place] [address]- When: Unknown [facility] 11-22-2022 NoteCONSULTATION CONSULTATION DATE: 05/19/2022 CHIEF [...] The patient currently takes Mobic 15 mg, Redford 5/325 on a p.r.n. basis as prescribed [...] had been performed. CC: Javad Donato M.D.[facility] [id number] NoteCONSULTATION CONSULTATION DATE: 04/28/2022 CHIEF COMPLAINT: Left [...] patient takes two Aleve. He also takes Redford 5/[address] Donato has prescribed for [...] like to proceed. CC: Javad Donato M.D.[facility] [id number] Hospital Discharge instructions Patient Education 02/16/2022 11:24:07 [...] urethra. Follow these instructions at home: Take wlcy-qal-blwmrfs and prescription medicines only as told by [...] 06/14/2006 Document Revised: 05/09/2019 Document Reviewed: 07/19/2017 [employer] Patient Education 2020 [employer] 02/16/2022 11:24:04 Calorie Counting for Weight Loss [...] 06/14/2006 Document Revised: 03/03/2019 Document Reviewed: 05/14/2017 [employer] Patient Education 2020 [employer]. Follow Up Care 08/18/2021 12:09:57 With:PAMELA BAER, Mac Stephenson, URL Address: [address] [place] [phone] (1) When:Within 6 Month(s) [facility] evaluation + Plan note Future Appointments Appointment Date:06/01/2022 10:45:00 AM Scheduled Provider:Mac SANTIAGO MD Location:[facility] Appointment Type:URO Office Visit [facility] evaluation + Plan note Future Appointments Appointment Date:11/30/2022 08:45:00 AM Scheduled Provider:Mac SANTIAGO MD Location:[facility] Appointment Type:URO Office Visit [facility] evaluation noteNo assessment information available [facility] Work Phone: evalufjfus [employer] [place] Other evaluation note* Diagnosis Spinal stenosis, lumbar region with neurogenic claudication- Primary [facility] Spinal stenosis, lumbar region with neurogenic claudication- Primary Bilateral hip joint arthritis [facility] Diagnosis Right hip pain- Primary Pain in joint, pelvic region and thigh Status post total hip replacement, right [facility] Right hip pain- Primary Pain in joint, pelvic region and thigh Status post total hip replacement, right Arthritis of right hip [facility] Diagnosis Right hip pain- Primary Pain in joint, pelvic region and thigh Status post total hip replacement, right Arthritis of right hip Primary osteoarthritis of right hip Status post right hip replacement [facility] Diagnosis Primary osteoarthritis of right hip Status post right hip replacement Right hip pain- Primary Pain in joint, pelvic region and thigh Status post total hip replacement, right Arthritis of right hip [facility] Diagnosis Primary osteoarthritis of right hip Status post right hip replacement [facility] N[facility]ative - Reported* Type Description Date Medical History appendicitis Medical History Arthritis Medical History Hypertension Medical History obesity Medical History pneumonia Medical History prostate cancer Surgical History appendectomy Surgical History carpal tunnel release 2017 Hospitalization History see surg [employer] Other History general Narrative - ReportedNort [employer] Other Hospital course Narrative No data available for this section [facility] [employer] progress note No data available for this section [facility] reason for referral (narrative)* Diagnostic Procedure Only (Routine) - Pending Review Specialty Diagnoses / Procedures Referred By Rayray barkley Referred To Contact XR IMAGING Diagnoses Bilateral hip joint arthritis Procedures XR HIP BILATERAL 5V PEL/AP/LAT EACH HIP RADEX HIPS BILATERAL WITH PELVIS MINIMUM 5 VIEWS Laila Lewis PA-C [address] [place] [address] [facility] [place] [address] Referral ID Status Reason Start Date Expiration Date Visits Requested Visits Authorized [id number] Pending Review Auto-Generat ed Referral 3 05/12/2024 1 1 * Consult, Test, Treat (Routine) - Pending Review Specialty Diagnoses / Procedures Referred By Rayray barkley Referred To Contact Orthopedics Diagnoses Bilateral hip joint arthritis Procedures CONSULT TO ORTHOPAEDICS OFFICE/OUTPATIENT [facility] 60-74 MINUTES Laila Lewis PA-C [address] [place] [address] Referral ID Status Reason Start Date Expiration Date Visits Requested Visits Authorized [id number] Pending Review PCP Requested Referral 3 04/12/2024 1 1 [facility] for visit Narrativeself referral- low back pain L4-L5 [facility] [employer] Other Summary Purpose Family History No Family [...] Donato II MD Primary Care Provider Active Erica Xiong RISK COMPLIANCE MANAGER-C Attending Provider Active Fraud Prevention Analyst Relationship Specialty Start Date End Date Javad Donato MD [address] [place] [address] PCP - ACO Reach 11/19/22 Javad Donato MD [address] [place] [address] PCP - General Internal Medicine 01/05/23 Fraud Prevention Analyst Relationship Specialty Start Date End Date Javad Donato MD [address] [place] [address] PCP - ACO Reach 11/19/22 Javad Donato MD [address] [place] [address] PCP - General Internal Medicine 01/05/23 Fraud Prevention Analyst Relationship Specialty Start Date End Date Javad Donato MD [address] [place] [address] PCP - ACO Reach 11/19/22 Javad Donato MD [address] [place] [address] PCP - General Internal Medicine 01/05/23 Fraud Prevention Analyst Relationship Specialty Start Date End Date Javad Donato MD [address] [place] [address] PCP - ACO Reach 11/19/22 Javad Donato MD [address] [place] [address] PCP - General Internal Medicine 01/05/23 Fraud Prevention Analyst Relationship Specialty Start Date End Date Javad Donato MD [address] [place] [address] PCP - ACO Reach 11/19/22 Javad Donato MD [address] [place] [address] PCP - General Internal Medicine 01/05/23 Fraud Prevention Analyst Relationship Specialty Start Date End Date Javad Donato MD [address] [place] [address] PCP - ACO Reach 11/19/22 Javad Donato MD [address] [place] [address] PCP - General Internal Medicine 01/05/23 Fraud Prevention Analyst Relationship Specialty Start Date End Date Javad Donato MD [address] [place] [address] PCP - ACO Reach 11/19/22 Javad Donato MD [address] [place] [address] PCP - General Internal Medicine 01/05/23 (unrecognized sect ion and content) No Status Records FoundNo Status Records FoundNo Status Records FoundNo Status Records FoundNo Status Records FoundNo Status Records FoundNo Status Records FoundNo Status Records Found INFORMATION SOURCE (unrecogn ized section and content) DATE CREATED AUTHOR 05/02/2022 [facility] DATE CREATED AUTHOR AUTHOR'S ORGANIZ ATION 12/04/2022 [facility] DATE CREATED AUTHOR AUTHOR'S ORGANIZ ATION 01/13/2023 [facility] DATE CREATED AUTHOR AUTHOR'S ORGANIZ ATION 02/08/2023 Garcia Panchal [facility] DATE CREATED AUTHOR AUTHOR'S ORGANIZ ATION 02/13/2023 [facility] DATE CREATED AUTHOR AUTHOR'S ORGANIZ ATION 04/17/2023 [facility] DATE CREATED AUTHOR AUTHOR'S ORGANIZ ATION 07/11/2023 [facility] DATE CREATED AUTHOR AUTHOR'S ORGANIZ ATION 08/16/2023 [facility] dical Specialists EPIC Goals (unrecognized section and [...] prosecute any alcohol or drug abuse patient.[facility] CenterIn the event this information is protected by the Federal Confidentiality of Alcohol and Drug Abuse Patient Records regulations: The Federal rules restrict any use of the information to criminally investigate or prosecute any alcohol or drug abuse patient.[facility] Reason for Visit (unrecogniz ed section and content) Reason Comments New Patient Specialty Diagnoses / Procedures Referred By Contac t Referred To Contact Physical Therapy Diagnoses Presence of artificial hip joint, right Procedures [place] OFFICE/OUTPATIENT NEW HIGH MDM 60 MINUTES Charissa Blair, DO [address] [facility] [address] [place] [address] [address] [place] [address] Referral ID Status Reason Start Date Expiration Date Visits Requested Visits Authorized [id number] Authorized Specialty Services Required 07/08/2023 01/04/2024 30 30 Reason Comments Follow-up FOR RECORDS PERTAINING TO PATIENTS WHO ARE [...] BE BASED ON THE PRIMARY CLINICAL RECORDS. [facility] [employer] provides no warranty or guarantee of the accuracy or completeness of information in this document.
== END 2023-08-26 08:52 | disposition home or self-care (01) ==
LOC: PM 08:51
PROVIDERS: PCP Internal Medicine; Visit Provider Nurse Practitioner
DX: M47.816 Spondylosis without myelopathy or radiculopathy, lumbar region (principal); M53.3 Sacrococcygeal disorders, not elsewhere classified; M79.2 Neuralgia and neuritis, unspecified
CPT/HCPCS: G0463

== ENCOUNTER 2023-10-06 13:52 | Outpatient (OUT) | payer MEDICARE, OTHER, SELFPAY ==
--- NOTE | 2023-10-06 14:33 | P.CN_ITS ---
Consult Note: HPI Data of Consult Patient: known to practice within the last 3 years Requesting Physician: Kath Steiner NP Primary Care Provider: JOHNATHAN LÓPEZ Consult Narrative Reason for consult: f/u Narrative: Lawson martin a pleasant 68 year old male presents for evaluation of chronic low back, left posterior thigh and buttocks pain. Patient rating pain 8/10 today, sharp. Pain increased with all activity, improved with sleep and sitting. Patient reporting mild relief from ibuprofen, tizanidine, and norco 5mg. Patient underwent right hip replacement 07/21 and is hoping to have left hip replaced as well before having back surgery. Patient would like to discuss trigger point injections today as previously recommended. cc:: CC: Kath Steiner NP Review of Systems 2 ROS0 Status of ROS 10 or more systems reviewed and unremark able except as noted in history and below Musculoskeletal Reports: back pain and joint pain PFSH PFS Medical History (Updated 10/06/23 @ 15:55 by Kath Steiner NP) Neuritis ?M79.2 - Neuralgia and neuritis, unspecified (ICD-10) Left carpal tunnel syndrome ?G56.02 - Carpal tunnel syndrome, left upper limb (ICD-10) Osteoarthritis ?M19.90 - Unspecified osteoarthritis, unspecified site (ICD-10) Low back pain ?M54.50 - Low back pain, unspecified (ICD-10) Obesity ?E66.9 - Obesity, unspecified (ICD-10) Enlarged prostate ?N40.0 - Benign prostatic hyperplasia without lower urinary tract symptoms (ICD-10) Former smoker ?Z87.891 - Personal history of nicotine dependence (ICD-10) Hypertension ?I10 - Essential (primary) hypertension (ICD-10) Surgical History Hx of appendectomy ?Z90.49 - Acquired absence of other specified parts of digestive tract (ICD- 10) Social History Smoking status: Former smoker Meds Home Medications and Allergies Home Medications ?Medication ?Instructions ?Recorded ?Confirmed ?Type ascorbic acid (vitamin C) 500 mg 500 mg PO DAILY 12/10/22 03/16/23 History tablet (C-500) bee pollen 550 mg capsule mg PO .QD 12/10/22 History carvedilol 6.25 mg tablet 6.25 mg PO BID 12/10/22 03/16/23 History cholecalciferol (vitamin D3) 10 10 mcg PO DAILY 12/10/22 03/16/23 History mcg (400 unit) capsule (Vitamin D3) finasteride 5 mg tablet 5 mg PO .QD 12/10/22 03/16/23 History hydrocodone 5 mg-acetaminophen 325 1 tab PO QID PRN pain 12/10/22 03/16/23 History mg tablet mecobalamin (vitamin B12) 1,000 1,000 mcg PO DAILY 12/10/22 03/16/23 History mcg chewable tablet (B12 Active) meloxicam 15 mg tablet 15 mg PO .QD 12/10/22 03/16/23 History multivitamin 1 tab PO DAILY 12/10/22 03/16/23 History sildenafil 100 mg tablet (Viagra) 100 mg PO DAILY PRN sexual activity 12/10/22 03/16/23 History solifenacin 10 mg tablet 10 mg PO DAILY 12/10/22 03/16/23 History tamsulosin 0.4 mg capsule 0.4 mg PO Q24H 12/10/22 03/16/23 History tizanidine 4 mg capsule 4 mg PO .HS PRN muscle spasticity 12/10/22 03/16/23 History vitamin B complex (Complex B-100 1 tab PO DAILY 12/10/22 03/16/23 History tablet,extended release) zinc 50 mg tablet 50 mg PO DAILY 12/10/22 03/16/23 History cephalexin 500 mg capsule 500 mg PO Q8H 3 days #9 caps 06/26/23 Rx Allergies Allergy/AdvReac Type Severity Reaction Status Date / Time No Known Drug Allergies Allergy Verified 06/26/23 15:54 Exam Constitutional Documenting provider has reviewed patient's vital signs: yes Common normals: no apparent distress, oriented x3, healthy appearing, alert and well nourished General appearance: cooperative Nutritional appearance: obese HENMT Common normals: normocephalic, hearing grossly normal bilaterally and moist oral mucous membranes Head and scalp: normocephalic Eye Common normals: PERRL Pupil: PERRL Neck & C-Spine Common normals: full ROM General: normal visual inspection Chest Common normals: inspection of chest normal Respiratory Common normals: normal respiratory effort, no retractions and no use of accessory muscles Back & Pelvis Lumbar spine/lower back: ROM limited, pain with ROM, paraspinal muscle tenderness and paraspinal muscle spasm Sacroiliac joints: SI joints normal Back image (male): 2 1. myofascial spasm noted on physical exam Extremity Common normals: normal to inspection and full ROM Neuro Common normals: oriented x3, CN's II-XII intact bilaterally, moves all extremities, no focal motor deficits, no sensory deficits noted and deep tendon reflexes 2+ bilaterally Sensorium/orientation: alert Motor exam: strength 5/5 throughout and no movement abnormalities noted Psych Common normals: mental status grossly normal, thought process normal, cooperative, affect normal, speech normal and activity/motor behavior normal Speech: normal speech Thought process: normal thought process Results Additional Findings Additional findings: If on a controlled substance or opioids, I have checked an [place] report on this patient and there are no aberrancies noted in the prescribing history.??If on a controlled substance or opioid a drug screen was completed and reviewed within the last year, and if there has not been a drug screen completed we ordered one today to monitor higher risk, state monitored pain medication use. As part of providing excellent, safe, comprehensive care, the following was completed at our patient's visit: 1. A medication reconciliation and review to ensure accurate knowledge of current/active medications, including asking our patients to inform us about any [id number] medications or herbal remedies/nutritional supplements/alternative remedies. 2. A review to specifically ensure our patients have had annual screening for screening for depression, screening for tobacco use, and screening for unhealthy alcohol use. For concerning screenings had a discussion with the patient, provided patient education, and recommended follow-up with primary care provider when appropriate. If patient noted with a risk of falling, they received education on strength, gait, and balance training to prevent future risk of falling. Assessment and Plan Assessment and Plan (1) Myofascial pain: Assessment and Plan: OPERATION:?Trigger Point Injection of left paralumbar spine and left gluteus dominga ANESTHESIA:?Local and sedation. COMPLICATIONS:?None. DESCRIPTION OF PROCEDURE:?The procedure risks, hazards and alternatives were discussed with the patient and a proper consent was obtained. The area over the myofascial spasm was prepped with alcohol utilizing sterile technique. After isolating it between two palpating fingertips a 25-gauge 5 needle was placed in the center of the myofascial spasms and a negative aspiration was performed. Then 5cc of 5mg bupivacaine, 40mg lidocaine, and 10mg triamcinolone was injected into each trigger point. The patient tolerated the procedure well without any apparent difficulties or complications. They were feeling relief by the time the block had set. (2) Lumbar spondylosis: (3) Sacroiliac joint pain: Assessment and Plan: improved on physical exam (4) Neuritis: Assessment and Plan: right LCI[facility] neuritis improved on exam (5) Lumbar stenosis with neurogenic claudication: Plan TPI completed as documented above, patient tolerated well with significant reduction in pain continue pt and aquatherapy continue current medications, tolerating well without side effects, noticing improvement in ability to complete ADLs continue f/u with orthopedics and NS f/u 3 months, sooner if needed
== END 2023-10-06 13:53 | disposition home or self-care (01) ==
LOC: PM 13:54
PROVIDERS: PCP Internal Medicine; Visit Provider Nurse Practitioner
DX: M79.18 Myalgia, other site (principal); M47.816 Spondylosis without myelopathy or radiculopathy, lumbar region; M53.3 Sacrococcygeal disorders, not elsewhere classified; M79.2 Neuralgia and neuritis, unspecified; M48.062 Spinal stenosis, lumbar region with neurogenic claudication
CPT/HCPCS: 20552; J1010

== ENCOUNTER 2023-11-17 08:47 | Outpatient (OUT) | payer MEDICARE, OTHER, SELFPAY ==
--- NOTE | 2023-11-17 09:03 | P.CN_ITS ---
Consult Note: HPI Data of Consult Patient: known to practice within the last 3 years Requesting Physician: Kath Steiner NP Primary Care Provider: JOHNATHAN LÓPEZ Consult Narrative Reason for consult: f/u Narrative: Lawson martin a pleasant 68 year old male presents for evaluation of chronic low back, left posterior thigh and buttocks pain. Patient rating pain 2-4/10 today, sharp throbbing shooting pain increasing to 8/10. Pain increased with all activity, improved with sleep and sitting. Patient reporting mild relief from ibuprofen, tizanidine, and norco 5mg. Patient underwent right hip replacement 07/21 and is hoping to have left hip replaced as well before having back surgery. Patient would like to discuss trigger point injections today as previously recommended. cc:: CC: Kath Steiner NP Review of Systems 2 ROS0 Status of ROS 10 or more systems reviewed and unremark able except as noted in history and below Musculoskeletal Reports: back pain and extremity pain PFSH PFSH Medical History Neuritis ?M79.2 - Neuralgia and neuritis, unspecified (ICD-10) Left carpal tunnel syndrome ?G56.02 - Carpal tunnel syndrome, left upper limb (ICD-10) Osteoarthritis ?M19.90 - Unspecified osteoarthritis, unspecified site (ICD-10) Low back pain ?M54.50 - Low back pain, unspecified (ICD-10) Obesity ?E66.9 - Obesity, unspecified (ICD-10) Enlarged prostate ?N40.0 - Benign prostatic hyperplasia without lower urinary tract symptoms (ICD-10) Former smoker ?Z87.891 - Personal history of nicotine dependence (ICD-10) Hypertension ?I10 - Essential (primary) hypertension (ICD-10) Surgical History Hx of appendectomy ?Z90.49 - Acquired absence of other specified parts of digestive tract (ICD- 10) Social History Smoking status: Former smoker Meds Home Medications and Allergies Home Medications ?Medication ?Instructions ?Recorded ?Confirmed ?Type ascorbic acid (vitamin C) 500 mg 500 mg PO DAILY 12/10/22 03/16/23 History tablet (C-500) bee pollen 550 mg capsule mg PO .QD 12/10/22 History carvedilol 6.25 mg tablet 6.25 mg PO BID 12/10/22 03/16/23 History cholecalciferol (vitamin D3) 10 10 mcg PO DAILY 12/10/22 03/16/23 History mcg (400 unit) capsule (Vitamin D3) finasteride 5 mg tablet 5 mg PO .QD 12/10/22 03/16/23 History hydrocodone 5 mg-acetaminophen 325 1 tab PO QID PRN pain 12/10/22 03/16/23 History mg tablet mecobalamin (vitamin B12) 1,000 1,000 mcg PO DAILY 12/10/22 03/16/23 History mcg chewable tablet (B12 Active) meloxicam 15 mg tablet 15 mg PO .QD 12/10/22 03/16/23 History multivitamin 1 tab PO DAILY 12/10/22 03/16/23 History sildenafil 100 mg tablet (Viagra) 100 mg PO DAILY PRN sexual activity 12/10/22 03/16/23 History solifenacin 10 mg tablet 10 mg PO DAILY 12/10/22 03/16/23 History tamsulosin 0.4 mg capsule 0.4 mg PO Q24H 12/10/22 03/16/23 History tizanidine 4 mg capsule 4 mg PO .HS PRN muscle spasticity 12/10/22 03/16/23 History vitamin B complex (Complex B-100 1 tab PO DAILY 12/10/22 03/16/23 History tablet,extended release) zinc 50 mg tablet 50 mg PO DAILY 12/10/22 03/16/23 History cephalexin 500 mg capsule 500 mg PO Q8H 3 days #9 caps 06/26/23 Rx Allergies Allergy/AdvReac Type Severity Reaction Status Date / Time No Known Drug Allergies Allergy Verified 06/26/23 15:54 Exam Constitutional Documenting provider has reviewed patient's vital signs: yes Common normals: no apparent distress, oriented x3, healthy appearing, alert and well nourished General appearance: cooperative Nutritional appearance: obese HENMT Common normals: normocephalic, hearing grossly normal bilaterally and moist oral mucous membranes Head and scalp: normocephalic Eye Common normals: PERRL Pupil: PERRL Neck & C-Spine Common normals: full ROM General: normal visual inspection Chest Common normals: inspection of chest normal Respiratory Common normals: normal respiratory effort, no retractions and no use of accessory muscles Back & Pelvis Lumbar spine/lower back: ROM limited, pain with ROM, paraspinal muscle tenderness, paraspinal muscle spasm, straight leg raise positive right and straight leg raise positive left Sacroiliac joints: SI joints normal Other: decreased sensation to left L4,5 L5,S1 dermatomal pattern strength 5/5 in BLE Back image (male): 2 1. trigger point noted 2. trigger point noted Extremity Common normals: normal to inspection and full ROM Neuro Common normals: oriented x3, CN's II-XII intact bilaterally, moves all extremities, no focal motor deficits, no sensory deficits noted and deep tendon reflexes 2+ bilaterally Sensorium/orientation: alert Gait (neuro): antalgic Motor exam: strength 5/5 throughout and no movement abnormalities noted Psych Common normals: mental status grossly normal, thought process normal, cooperative, affect normal, speech normal and activity/motor behavior normal Speech: normal speech Thought process: normal thought process Results Additional Findings Additional findings: If on a controlled substance or opioids, I have checked an [place] report on this patient and there are no aberrancies noted in the prescribing history.??If on a controlled substance or opioid a drug screen was completed and reviewed within the last year, and if there has not been a drug screen completed we ordered one today to monitor higher risk, state monitored pain medication use. As part of providing excellent, safe, comprehensive care, the following was completed at our patient's visit: 1. A medication reconciliation and review to ensure accurate knowledge of current/active medications, including asking our patients to inform us about any [id number] medications or herbal remedies/nutritional supplements/alternative remedies. 2. A review to specifically ensure our patients have had annual screening for screening for depression, screening for tobacco use, and screening for unhealthy alcohol use. For concerning screenings had a discussion with the patient, provided patient education, and recommended follow-up with primary care provider when appropriate. If patient noted with a risk of falling, they received education on strength, gait, and balance training to prevent future risk of falling. Assessment and Plan Assessment and Plan (1) Lumbar stenosis with neurogenic claudication: (2) Myofascial pain: Assessment and Plan: OPERATION:?Trigger Point Injection of left paralumbar spine and left gluteus dominga ANESTHESIA:?Local and sedation. COMPLICATIONS:?None. DESCRIPTION OF PROCEDURE:?The procedure risks, hazards and alternatives were discussed with the patient and a proper consent was obtained. The area over the myofascial spasm was prepped with alcohol utilizing sterile technique. After isolating it between two palpating fingertips a 25-gauge 5 needle was placed in the center of the myofascial spasms and a negative aspiration was performed. Then 5cc of bupivacaine, lidocaine, and 40mg triamcinolone was injected into each trigger point. The patient tolerated the procedure well without any apparent difficulties or complications. They were feeling relief by the time the block had set. (3) Lumbar spondylosis: (4) Sacroiliac joint pain: Assessment and Plan: improved on physical exam Plan L5-S1 JEN under fluoroscopy for lumbar stenosis with NC TPI completed as documented above, patient tolerated well with significant reduction in pain continue pt and aquatherapy continue current medications, tolerating well without side effects, noticing improvement in ability to complete ADLs continue f/u with orthopedics and NS f/u 2 weeks after JEN
== END 2023-11-17 08:48 | disposition home or self-care (01) ==
LOC: PM 08:48
PROVIDERS: PCP Internal Medicine; Visit Provider Nurse Practitioner
DX: M48.062 Spinal stenosis, lumbar region with neurogenic claudication (principal); M79.18 Myalgia, other site; M47.816 Spondylosis without myelopathy or radiculopathy, lumbar region; M46.1 Sacroiliitis, not elsewhere classified
CPT/HCPCS: 20552

== ENCOUNTER 2023-11-30 06:46 | Day surgery (SDC) | payer MEDICARE, OTHER, SELFPAY ==
--- OUTSIDE RECORDS SUMMARY | 2023-11-30 06:49 | XMS_ITS | CCD ---
Author Organization [facility] Care Team Providers Care [place] Artist Name Role Phone JAVAD DONATO Primary Care [...] Unavailable LAKSHMIPATHY ., JUN Attending Peyton vailable DR JAVAD DONATO Primary Care Unavailable RA, DR DEVIN Novak Consulting Unavailable LAKSHMIPATHY ., JUN Admitting Peyton vailable LAKSHMIPATHY ., JUN Consulting Peyton vailable HAWTHORNE ., DR ANTIONE [...] ., NARENDDERIANATH Attending Peyton vailable LAKSHMIPATHY ., NARENDDERIANATH Admitting Peyton vailable MARIBEL, DR MANN Primary Care Unavailable LAKSHMIPATHY ., NARENDDERIANATH Consulting Peyton vailable LAKSHMIPATHY ., NARENDDERIANATH Attending Peyton vailable MARIBEL, DR MANN Primary Care Unavailable LAKSHMIPATHY ., NARENDDERIANATH Admitting Peyton vailable LAKSHMIPATHY ., NARENDRANATH Admitting Peyton vailable LAKSHMIPATHY ., NARENDRANATH Consulting Peyton vailable LAKSHMIPATHY ., NARSALLYATH Attending Peyton vailable MARIBEL, DR MANN Primary [...] Attending Unavailable Javad Donato Primary Care Unavailable Unavailable Primary Care Provider UnavailLAILA Cardenas Attending Unavailable CHARISSA BLAIR Referring Unavailable JAVAD DONATO Primary Care Unavailable CHARISSA BLAIR Admitting Unavailable CHARISSA BLAIR Attending Unavailable JAVAD DONATO Primary Care Unavailable DEVIN SAUL Attending Unavailable JAVAD DONATO Primary Care Unavailable CHARISSA BLAIR Attending Unavailable CHARISSA BLAIR Referring Unavailable JAVAD DONATO Primary Care Unavailable Javad Donato MD Unavailable Javad Donato MD Primary Care Provider Mac BOYER Attending Unavailable Mac BOYER Attending Unavailable JAVAD DONATO Attending Unavailable JOSE HERNÁNDEZ Attending Unavailable NAGI PLATA Attending Unavailable NURY, CHARISSA Rose Referring Unavailable JEANNA MENDIOLA Attending Unavailable BLACK EARTH, CHARISSA Rose Referring Unavailable JEANNA MENDIOLA Attending Unavailable NURY, CHARISSA Rose Referring Unavailable JEANNA MENDIOLA Attending Unavailable NURY, CHARISSA Rose Referring Unavailable JAVAD DONATO Attending Unavailable JOSE HERNÁNDEZ Attending Unavailable JOSE HERNÁNDEZ Referring Unavailable NAGI PLATA Attending Unavailable NURY, CHARISSA Rose Referring Unavailable JEANNA MENDIOLA Attending Unavailable NURY, CHARISSA Rose Referring Unavailable JEANNA MENDIOLA Attending Unavailable NURY, CHARISSA Rose Referring Unavailable NAGI PLATA Attending Unavailable NURY, CHARISSA Rose Referring Unavailable NAGI PLATA Attending Unavailable NURY, CHARISSA Rose Referring Unavailable CLAUDINE HOUSE Attending Unavailable BLACK EARTH, CHARISSA Rose Referring Unavailable NURY, CHARISSA Rose Attending Unavailable NURY, CHARISSA Rose Referring Unavailable JOSE HERNÁNDEZ Attending Unavailable EDGAR, JOSE West Attending Unavailable JOSE HERNÁNDEZ Referring Unavailable Allergies Allergy Classification Reported Allergen(s) [...] (11 sources) Central alpha-2 Adrenergic Agonist Start: 04-03-2022 tiZANidine (Zanaflex) 4 MG tablet 1 tablet [...] activity, # 30 tab(s), Refills(s) 3, [facility] CAPELLANALBERTO 536, 186, cm, 06/17/20 14:49:00 EST, Height/Length [...] right total hip replacement Amauri Blair D.O. [facility] Radiology Study observation (narrative) [facility] XR Hip - right 3 ViewsOrdere d By: Charissa Blair on 08-09-2023 [facility] [place] e Work Phone: XR HIP RT 2-3 [...] Delcid MD on 07/07/2023 11:06 AM Normal [facility] CNOVon 04-13-2023 CNOV Office Visit (SPSLUH ) LAWSON VELA ([id number]) 1955 M DEF Date Time Provider Department 04/13/23 11:00 AM [facility] today, we recorded the [...] right side behind his thigh Description: Stabbing Sharp;Throbbing;Aching ;Burning Duration Amount of Time: 40 1 Duration Units: Months Years Frequency: Continuous Continuous gets worse when he walks or stands for long Intervention/Comfort measure: Medication;Reposition; Relaxation;Cold;Exerci se;Heat;Massage;Pillow support;Positioning -- Comments: Pain management; steroid injections has been pain manegment but is not seeing any changes in the pain AMBULATORY STATUS: Independent Community Distances ANTIPLATELET OR ANTICOAGULATION STATUS: No PREVIOUS CONSERVATIVE TREATMENTS: See below Aquatic Therapy: 3 months ago which helped, will start it again. 3 days a week. 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 meloxicam (MOBIC) 7.5 mg tablet Take 7.5 mg by mouth. HYDROcodone-acetaminop hen (NORCO) 5-325 mg per tablet REVIEW OF [...] Self-harm Question 1 (more content not included)... [facility] Ambulatory Visit Summaryon 0 02-08-2023 Ambulatory Visit Summary LAWSON VELA :1955 Visit Date:02/08/2023 Ambulatory Visit Instructions Your Diagnosis Urge incontinence BPH with urinary obstruction ED (erectile dysfunction) Tests Performed Urnls Dip Stick Auto w/o Microscopy POC 22569 Your Care Team Attending Physician - PAMELA BAER, Mac Stephenson Primary Care Physician - JAVAD DONATO MD This Is Your Medications List finasteride (finasteride 5 mg Tab) solifenacin (Vesicare 10 mg Tab) tadalafil (Cialis 20 mg Tab) tamsulosin (tamsulosin 0.4 mg Cap) Contact prescribing physician if questions or concerns ascorbic acid (Vitamin C) betamethasone-clotrima zole topical (Lotrisone 0.05%-1% Cream) cyanocobalamin (Vitamin B12) fluconazole (Diflucan) hydrochlorothiazide-ir besartan (hydrochlorothiazide-i rbesartan 12.5 mg-150 mg Tab) meloxicam (meloxicam 15 [...] [facility] [address], [place] [phone] Medications What How Much When Instructions Unchanged [...] prescribing physician if questions or concerns Unchanged betamethasone-clotrima zole topical (Lotrisone 0.05%-1% Cream) Topical 2 times a day Contact prescribing physician if questions or concerns Unchanged cyanocobalamin (Vitamin B12) Contact prescribing physician if questions or concerns Unchanged fluconazole (Diflucan) Contact prescribing physician if questions or concerns Unchanged hydrochlorothiazide-ir besartan (hydrochlorothiazide-i rbesartan 12.5 mg-150 mg Tab) 1 Tablets By [...] Urnls Dip Stick Auto w/o Microscopy POC 67254 (02/08/2023) Bilirubin Urine Dipstick - Negative Blood Urine Dipstick - Negative Glucose Urine Dipstick - Negative Ketones Urine Dipstick - Negative Leukocytes Urine Dipstick - Negative Nitrite Urine Dipstick - Negative Protein Urine Dipstick - Negative Specific [place] Urine Dipstick - 1.010 Urine Appearance Urine [...] the high (more content not included)... Normal [facility] Patient Educationon 02-09-20 Patient Education Urology [...] nerve stimulation). ? For women, using a anesthesiology medical doctor to prevent urine leaks. This is a [...] urine. ? (more content not included)... Normal [facility] Urology Office/Clinic Noteon 02-08-2023 Urology Office/Clinic [...] carcinoma. Will have pt schedule appt with digital sales assistant. 1. Urge incontinence (N39.41: Urge incontinence) Pt [...] 20mg PRN [3] Patient Education Urinary Incontinence Kaleigh Perez, personally scribed for Dr. Boyer on 02/08/2023 [...] mg= 1 tab(s), Oral, Daily, 3 refills hydrochlorothiazide-ir besartan 12.5 mg-150 mg Tab, 1 tab(s), Oral, [...] vaccine, inacti (more content not included)... Normal [facility] Comment on above: Result Comment: Elec tronically Signed By: Mac BOYER MD\.br\Date and Time Signed: 02/08/23 12:21 EDT\.br\Electronically Co-Signed By: Kaleigh Donato\.br\Date and Time Co-Signed: 02/08/23 12:18 EDT XR lumbar spine 6V w bending on 12-17-2022 XR lumbar spine 6V w bending [facility] Main [place] [address] [place] [address] XRay Report Signed Patient: Lawson Vela MR#: [id number] : 1955 Acct:[id number] Age/Sex: 67 / M ADM Date: 12/17/22 Loc: XD Room: Type: [facility] Attending Dr: Erica Xiong NP-C Copies to: ANGELA Khan Ordering Provider: ANGELA [...] Cobian Jr., D.O.12/17/2022 3:16 PM Dictation Location: [facility] Transcribed By: [facility] 12/17/22 151 Dictated By: Lenny Cobian Jr, DO 12/17/22 151 Signed By: 12/17/22 151 [facility] XR lumbar spine 6V w bending [facility] [employer] Other XR lumbar spine 6V w bending [facility] Main [place] [employer] Other XR lumbar spine 6V w bending [address] [facility] [employer] Other XR lumbar spine [place] [address] [employer] Other XR lumbar spine 6V w bending XRay Report [employer] Other XR lumbar spine 6V w bending Signed [employer] Other XR lumbar spine 6V w bending Patient: Lawson Vela MR#: [id number] [employer] Other XR lumbar spine 6V w bending : 1955 Acct:[id number] [employer] Other XR lumbar spine 6V w bending Age/Sex: 67 / M ADM Date: 12/17/22 [employer] Other XR lumbar spine 6V w bending Loc: XD Room: Type: [facility] [employer] Other XR lumbar spine 6V w bending Attending Dr: Erica MILLER [employer] Other XR lumbar spine 6V w bending Copies to: ANGELA Khan [employer] Other XR lumbar spine 6V w bending Ordering Provider: ANGELA Khan [employer] Other XR lumbar spine 6V w bending Date of Service: 12/17/22 [employer] Other XR lumbar spine 6V w bending XR/XR lumbar spine 6V w bending: M54.16 [employer] Other XR lumbar spine 6V w bending LUMBAR SPINE - 6 views [facility] [employer] Other XR lumbar spine 6V w bending CLINICAL HISTORY: Right leg pain and numbness that radiates to toes [employer] Other XR lumbar spine 6V w bending COMPARISON: None [employer] Other XR lumbar spine 6V w bending FINDINGS: Vertebral body heights appear maintained. Diffuse endplate and facet joint degenerative [employer] Other XR lumbar spine 6V w bending changes. Mild diffuse disc space narrowing with relative sparing of L5-S1. No pathological motion [employer] Other XR lumbar spine 6V w bending on flexion or extension views. Limited sidebending. [employer] Other XR lumbar spine 6V w bending XR/XR lumbar spine 6V w bending [employer] Other XR lumbar spine 6V w bending IMPRESSION: [employer] Other XR lumbar spine 6V w bending DEGENERATIVE CHANGES OF THE LUMBAR SPINE WITH MILD DIFFUSE DISC SPACE NARROWING WITH RELATIVE [employer] Other XR lumbar spine 6V w bending SPARING OF L5-S1. [employer] Other XR lumbar spine 6V w bending Impression dictated by: Lenny Cobian Jr., D.OFabio12/17/2022 3:16 PM [employer] Other XR lumbar spine 6V w bending Dictation Location: [place] [address] [employer] Other XR lumbar spine 6V w bending Transcribed By: PWS 12/17/22 [facility] [employer] Other XR lumbar spine 6V w bending Dictated By: Lenny Cobian Jr DO 12/17/22 [facility] [employer] Other XR lumbar spine 6V w bending Signed By: [employer] Other XR lumbar spine 6V w bending 12/17/22 [facility] [employer] Other XR HIPS JAIRO 3_4V WO PELVISon [...] by: DEVIN KNAPP Date: 2022-11-13 13:07 Normal [facility] MRI Lumbar Spine w/oon 05-01 MRI Lumbar [...] by YASMANY ARAYA on 05/01/2022 1217 Normal [facility] XR Orbits for MRIon 04-27-20 XR Orbits for MRI CLINICAL HISTORY: Prescreening for MRI. COMPARISON: None. RESULT: No radiopaque foreign bodies. No acute osseous findings. IMPRESSION: No radiopaque foreign bodies. Report reported and signed by Javad Dickens on 04/27/2022 1540 Normal [facility] XR Spine Lumbar 4+ Views*on 04-06-2022 XR [...] by Lenny Cook on 04/06/2022 1106 Normal [facility] Vital Signs Date Time Vital Sign Value Performing Clinician Facility 12-17-2022 13:00-0400 Body height 182.88 cm Erica Xiong Other [employer] Other 12-17-2022 13:00-0400 Body mass index (BMI) [Ratio] 38.51 kg/m2 [facility] Other [employer] Other 12-17-2022 13:00-0400 Body weight 128.82 kg Erica Xiong Other [facility] [employer] Other 12-17-2022 13:00-0400 Diastolic blood pressure 88 mm[Hg] Erica Xiogn Other [facility] [employer] Other 12-17-2022 13:00-0400 Systolic blood pressure 146 mm[Hg] Erica Xiong Other [facility] [employer] Other 06-01-2022 11:29-0500 Blood Pressure Location Macmichelle BOYER [facility] 06-01-2022 11:29-0500 Diastolic blood pressure 76 mm[Hg] Mac BOYER [facility] 06-01-2022 11:29-0500 Heart rate 70 /min Mac BOYER [facility] 06-01-2022 11:29-0500 Respiratory rate 16 /min Mac BOYER [facility] 06-01-2022 11:29-0500 Systolic blood pressure 128 mm[Hg] Mac BOYER [facility] 02-16-2022 10:28-0400 Blood Pressure Location Mac BOYER [facility] 02-16-2022 10:28-0400 Diastolic blood pressure 84 mm[Hg] Mac BOYER [facility] 02-16-2022 10:28-0400 Heart rate 68 /min Mac BOYER [facility] 02-16-2022 10:28-0400 Respiratory rate 16 /min Mac BOYER [facility] 02-16-2022 10:28-0400 Systolic blood pressure 136 mm[Hg] Mac BOYER [facility] Encounters Encounter Date Encounter Type Care Provider Facility Start: 02-07-2024 ambulatory Mac Gentilei ty:BEVERLY Jackson Start: 11-01-2023 End: 11-02-2023 ambulatory JOSE HERNÁNDEZ Not Available Start: 09-20-2023 End: 09-20-2023 ambulatory JOSE HERNÁNDEZ Not Available Start: 08-27-2023 End: 08-27-2023 ambulatory NAGI J BONI Not Available Start: 08-23-2023 End: 08-23-2023 ambulatory NAGI J BONI Not Available Start: 08-20-2023 End: 08-20-2023 ambulatory JEANNA MENDIOLA Not Available Start: 08-16-2023 End: 08-16-2023 ambulatory JEANNA MENDIOLA Not Available Start: 08-13-2023 End: 08-13-2023 ambulatory NAGI J BONI Not Available Start: 08-09-2023 Bamboo flowsheet Jeanna Wrig ht LEAD MANUFACTURING TECHNICIAN Work Phone: [facility] Start: 08-09-2023 Bamboo flowsheet Jeanna Wrig ht LEAD MANUFACTURING TECHNICIAN Work Phone: [facility] Start: 08-09-2023 End: 08-09-2023 Postop follow up visit related to original px Jose Hernández [employer] Work Phone: [facility] Comment on above: 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; Status post right hip replacement Start: 08-09-2023 End: 08-10-2023 ambulatory Jeanna Mendiola LEAD MANUFACTURING TECHNICIAN Work Phone: [facility] Comment on above: Right hip pain (Prim billie Dx); Status post total hip replacement, right; Arthritis of right hip Start: 08-06-2023 End: 08-06-2023 ambulatory JEANNA MENDIOLA Not Available Start: 08-06-2023 End: 08-06-2023 ambulatory Jeanna Mendiola LEAD MANUFACTURING TECHNICIAN Work Phone: [facility] Comment on above: Right hip pain (Prim billie Dx); Status post total hip replacement, right; Arthritis of right hip Start: 08-02-2023 Bamboo flowsheet Jeanna Don ht LEAD MANUFACTURING TECHNICIAN Work Phone: [facility] Start: 08-02-2023 Bamboo flowsheet Jeanna Don ht LEAD MANUFACTURING TECHNICIAN Work Phone: [facility] Start: 08-02-2023 End: 08-02-2023 ambulatory JEANNA MENDIOLA Not Available Start: 08-02-2023 End: 08-02-2023 ambulatory Jeanna Mendiola LEAD MANUFACTURING TECHNICIAN Work Phone: [facility] Comment on above: Right hip pain (Prim billie Dx); Status post total hip replacement, right; Arthritis of right hip Start: 07-29-2023 End: 07-29-2023 ambulatory Nagi Gwendolyn Boni PT Work Phone: [facility] Comment on above: Right hip pain (Prim billie Dx); Status post total hip replacement, right Start: 07-12-2023 End: 07-12-2023 ambulatory JOSE HERNÁNDEZ Not Available Start: 07-08-2023 End: 07-08-2023 ambulatory DEVIN SAUL [facility] Start: 07-07-2023 End: 07-08-2023 ambulatory [facility] Start: 07-07-2023 End: 07-07-2023 ambulatory [facility] Start: 07-05-2023 End: 07-06-2023 ambulatory [facility] Start: 07-05-2023 Encounter for other preprocedural examination CHARISSA NURY [facility] Start: 06-30-2023 End: 06-30-2023 ambulatory JAVAD DONATO Not Available Start: 06-08-2023 End: 06-09-2023 ambulatory CHARISSA BLAIR Not Available Start: 06-07-2023 End: 06-07-2023 ambulatory CLAUDINE HOUSE Not Available Start: 05-17-2023 End: 05-17-2023 ambulatory JAVAD DONATO Not Available Start: 04-13-2023 End: 04-13-2023 ambulatory LAILA PAN Facility:[facility] Start: 04-13-2023 End: 04-13-2023 Patient encounter procedure Laila Pan PA-C Work Phone: [employer] Comment on above: Spinal stenosis, lum bar region with neurogenic claudication (Primary Dx); Bilateral hip joint arthritis Start: 02-08-2023 End: 02-09-2023 ambulatory Mac BOYER Facility:[facility] Start: 01-28-2023 Chart abstracting Camron Mix MD Work Phone: Neurology Start: 12-17-2022 End: 12-17-2022 Patient encounter procedure II Javad Donato Work Phone: [facility] Work Phone: Start: 12-17-2022 End: 12-17-2022 ambulatory II Javad Donato Work Phone: [facility] Work Phone: Start: 12-17-2022 Encounter for other specified special examinations Erica Xiong [facility] Start: 12-17-2022 Office outpatient ne w 45 minutes Erica Xiong [facility] Start: 11-24-2022 End: 11-25-2022 ambulatory NARENDRANATH LAKSHMIPATHY . Facility:[facility] Start: 11-13-2022 End: 11-14-2022 ambulatory NARENDRANATH LAKSHMIPATHY . Facility:[facility] Start: 11-10-2022 End: 11-11-2022 ambulatory NARENDRANATH LAKSHMIPATHY . Facility:[facility] Start: 10-08-2022 End: 10-09-2022 ambulatory JUN MCCORMICKMIPATHY . Facility:[facility] Start: 09-10-2022 End: 09-11-[address] ANTIONE HAWTHORNE . Facility:[facility] Start: 08-13-2022 Encounter for preprocedural cardiovascular examination DR ANTIONE HAWTHORNE . [facility] Start: 08-11-2022 End: 08-11-[address] ANTIONE [...] ANTIONE HAWTHORNE . Facility:[facility] Start: 06-01-2022 End: 06-01-2022 Patient encounter procedure Mac BOYER [facility] Start: 05-19-2022 End: 05-20-[address] ANTIONE HAWTHORNE . Facility:[facility] Start: 05-05-2022 End: 05-05-[address] ANTIONE HAWTHORNE . Facility:[facility] Start: 04-28-2022 End: 04-29-[address] ANTIONE HAWTHORNE . Facility:[facility] Start: 04-27-2022 End: 05-14-[address] JAVAD DONATO Facility:[facility] Start: 02-16-2022 End: 02-16-2022 Patient encounter procedure Mac BOYER [facility] Procedures Date Procedure Procedure Detail Performing Clinician Start: 08-09-2023 Radex hip unilateral with pelvis 2-3 views Jose Hernández NP Work Phone: Start: 12-17-2022 X-ray of lumbar spin e, six views including bending views II Javad Donato Work Phone: Start: 04-22-2021 Urodynamic studies [place] alex BOYER Start: 11-26-2020 Cystoscopy Mac KAPADIA Start: 07-12-2017 Colonoscopy Nagi hernandez PT Work Phone: Start: 06-28-2009 Vasectomy Mac KAPADIA Start: 06-28-1966 Appendectomy Mac KAPADIA Carpal tunnel syndro me (disorder) Mac BOYER Colonoscopy Mac BOYER Plan of Treatment Date Care Activity Detail Author Start: 07-12-2027 Screening for malign ant neoplasm of colon [facility] Start: 05-17-2024 Medicare Annual Wellness (AWV) Medicare Annual Wellness (AWV) [facility] Start: 09-20-2023 End: 09-20-2023 Patient encounter procedure 09/20/2023 10:30 AM EDT Office Visit [facility] [address] [place] [address] Jose Hernández, [employer] [address] [place], [place] [id number] [facility] Start: 08-27-2023 End: 08-27-2023 ambulatory 08/27/2023 9:30 AM EST Treatment [facility] [address] [place] [address] Nagi Plata, PT [address] [place], [place] [id number] [facility] Start: 08-23-2023 End: 08-23-2023 ambulatory 08/23/2023 9:30 AM EST Treatment [facility] [address] [place] [phone] Jeanna Mendiola, LEAD MANUFACTURING TECHNICIAN [address] [place] [address] [facility] Start: 08-20-2023 End: 08-20-2023 ambulatory 08/20/2023 9:30 AM EST Treatment [facility] [address] [place] [phone] Jeanna Mendiola, LEAD MANUFACTURING TECHNICIAN [address] [place] [address] [facility] Start: 08-16-2023 End: 08-16-2023 ambulatory 08/16/2023 9:30 AM EST Treatment [facility] [address] [place] [phone] Jeanna Mendiola, LEAD MANUFACTURING TECHNICIAN [address] [place] [address] [facility] Start: 08-13-2023 End: 08-13-2023 ambulatory 08/13/2023 9:30 AM EST Treatment [facility] [address] [place] [phone] Nagi Plata, PT [address] [place] [address] [facility] Start: 08-09-2023 End: 08-09-2023 Patient encounter procedure 08/09/2023 1:00 PM EST Office Visit [facility] [address] [place] [phone] Jose Hernández, [employer] [address] [place] [address] [facility] Start: 08-09-2023 End: 08-09-2023 ambulatory [facility] Comment on above: Arrived Start: 08-06-2023 End: 08-06-2023 ambulatory 08/06/2023 9:30 AM EST Treatment [facility] [address] [facility] [phone] Jeanna Mendiola, LEAD MANUFACTURING TECHNICIAN [address] [place] [address] [facility] Start: 08-02-2023 End: 08-02-2023 ambulatory [facility] Comment on above: Arrived Start: 02-26-2023 Influenza vaccination [facility] Start: 06-28-2022 ADVANCE DIRECTIVE DISCUSSION ADVANCE DIRECTIVE DISCUSSION [facility] Start: 06-28-2022 DEPRESSION ASSESSMENT DEPRESSION ASS ESSMENT [facility] Start: 2019 PNEUMOCOCCAL: 65+ (1 - PCV) PNEUMOCOCCAL: 65+ (1 - PCV) [facility] Start: 07-08-2015 Shingrix Vaccine (2 of 3) Shingrix Vaccine (2 of 3) [facility] Start: 2014 RSV Vaccine (1 - 1-d ose 60+ series) RSV Vaccine (1 - 1-dose 60+ series) [facility] Start: 01-02-2004 SHINGRIX VACCINE (1 of 2) SHINGRIX VACCINE (1 of 2) [facility] Start: 1999 COLOGUARD (FIT-DNA) COLOGUARD (FIT-D NA) [facility] Start: 1999 Colonoscopy COLONOSCOPY [facility] Start: 1999 COLORECTAL CANCER SCREENING COLORECTAL CANCER SCREENING [facility] Start: [address] COLONOGRAPHY [facility] Start: 1999 DIABETES SCREEN DIABETES SCREEN [facility] Start: 1999 Diabetes Screening Diabetes Screenin g [facility] Start: 1999 FECAL OCCULT BLOOD FECAL OCCULT BLOO D [facility] Start: 1999 SIGMOIDOSCOPY [facility]OSCOPY [facility] Start: 1989 Lipid 1996 panel - Serum or Plasma Lipid Screening [facility] Start: 1989 LIPID SCREEN LIPID SCREEN [facility] Start: 1973 Urine microalbumin profile [facility] Start: 01-02-1972 HEPATITIS C SCREENING HEPATITIS C SC JACKELINE [facility] Start: 1954 COVID-19 VACCINE (#1) COVID-19 VACCI NE (#1) [facility] Start: 1955 Abdominal Aortic Aneurysm Screening Abdominal Aortic Aneurysm Screening [facility] Start: 1955 Screening for malign ant neoplasm of colon [facility] End: 05-12-2024 XR HIP BILATERAL 5V PEL/AP/LAT EACH HIP XR HIP BILATERAL 5V PEL/AP/LAT EACH HIP Radiology Routine Bilateral hip joint arthritis 1 Occurrences starting 04/13/2023 until 05/12/2024 [facility] Work Phone: Comment on above: 1 Occurrences starti ng 04/13/2023 until 05/12/2024 [facility] Immunizations Immunization Date Immunization Notes Care Provider Estevan sorto 05-17-2023 Influenza, High-dose Seasonal, Quadrivalent, Preservative Free Nagi Boni PT Work Phone: [facility] 04-03-2022 influenza, high dose seasonal, preservative-free Nagi Boni PT Work Phone: [facility] 04-03-2022 Influenza, High-dose Seasonal, Quadrivalent, Preservative Free Nagi Boni PT Work Phone: [facility] 04-03-2022 influenza virus vaccine, unspecified formulation Laila Pan PA-C Work Phone: [facility] 05-21-2020 influenza, injectabl e, quadrivalent, contains preservative Nagi Boni PT Work Phone: [facility] 05-21-2020 pneumococcal conjuga te vaccine, 13 valent Nagi Boni PT Work Phone: [facility] 04-10-2020 influenza virus vaccine, unspecified formulation Mac BOYER [facility] 05-03-2019 influenza, injectabl e, madin sancho canine kidney, preservative free Nagi Boni PT Work Phone: [facility] 05-03-2019 pneumococcal polysaccharide vaccine, 23 valent Nagi Boni PT Work Phone: [facility] 05-02-2018 seasonal influenza, intradermal, preservative free Nagi Boni PT Work Phone: [facility] 06-07-2017 influenza, injectabl e, quadrivalent, contains preservative Nagi Boni PT Work Phone: [facility] 05-13-2015 zoster vaccine, live Nagi Alfredo collado PT Work Phone: [facility] NEGATED: Highlighted row has not occurred!08-18-2021 SARS-CoV-2 (COVID-19) Ad26 vaccine, recombinant Mac BOYER [facility] Payers Date Payer Category Payer Self-pay 2021 Unknown [id number] 2018 Medicare [id number] 1959 Medicare [id number] 1959 Unknown [id number] 1954 Unknown [id number] 2.16.84 0.1.566514.3.579.2.593 1954 Unknown [id number] 2.16.84 0.1.404839.3.579.2.593 1954 Unknown [id number] 2.16.84 0.1.207012.3.579.2.593 1954 Unknown [id number] 2.16.84 0.1.172825.3.579.2.593 1954 Unknown [id number] 2.16.84 0.1.141796.3.579.2.593 1954 Unknown [id number] 2.16.84 0.1.520811.3.579.2.593 1954 Unknown [id number] 2.16.84 0.1.343114.3.579.2.593 1954 Unknown [id number] 2.16.84 0.1.974007.3.579.2.593 1954 Unknown [id number] 2.16.84 0.1.884644.3.579.2.593 1954 Unknown [id number] 2.16.84 0.1.724728.3.579.2.593 1954 Unknown [id number] 2.16.84 0.1.209883.3.579.2.593 1954 Unknown [id number] 2.16.84 0.1.299987.3.579.2.593 1954 Unknown [id number] 2.16.84 0.1.391926.3.579.2.593 1954 Unknown [id number] 2.16.84 0.1.773955.3.579.2.593 1954 Unknown [id number] 2.16.84 0.1.369079.3.579.2.593 1954 Unknown [id number] 2.16.84 0.1.766438.3.579.2.1286 1954 Unknown [id number] 2.16.84 0.1.444363.3.579.2.1286 1954 Unknown [id number] 2.16.84 0.1.190301.3.579.2.1286 1954 Unknown [id number] 2.16.84 0.1.274533.3.579.2.1286 1954 Unknown [id number] 2.16.84 0.1.417799.3.579.2.1286 1954 Unknown [id number] 2.16.8 40.1.246764.3.579.2.727 1954 Unknown [id number] 2.16.8 40.1.371130.3.579.2.727 1954 Unknown [id number] 2.16.84 0.1.555666.3.579.2.9 1954 Unknown [id number] 2.16.84 0.1.941925.3.579.2.125 1954 Unknown [id number] 2.16.84 0.1.654142.3.579.2.125 1954 Unknown [id number] 2.16.84 0.1.836899.3.579.2.1258 1954 Unknown [id number] 2.16.84 0.1.032595.3.579.2.9 1954 Unknown [id number] 2.16.84 0.1.205089.3.579.2.1258 1954 Unknown [id number] 2.16.84 0.1.537021.3.579.2.1258 1954 Unknown [id number] 2.16.84 0.1.163025.3.579.2.1258 1954 Unknown [id number] 2.16.84 0.1.024000.3.579.2.1259 1954 Unknown [id number] 2.16.84 0.1.607698.3.579.2.1258 1954 Unknown [id number] 2.16.84 0.1.037739.3.579.2.125 1954 Unknown [id number] 2.16.84 0.1.384557.3.579.2.1258 1954 Unknown [id number] 2.16.84 0.1.763733.3.579.2.1258 1954 Unknown [id number] 2.16.84 0.1.398784.3.579.2.125 1954 Unknown [id number] 2.16.84 0.1.353857.3.579.2.1259 1954 Unknown [id number] 2.16.840 .1.280228.3.579.2.1259 1954 Unknown [id number] 2.16.840 .1.310675.3.579.2.1259 1954 Unknown [id number] 2.16.840 .1.232777.3.579.2.9 1954 Unknown [id number] 2.16.840 .1.610375.3.579.2.1259 1954 Unknown [id number] 2.16.840 .1.814170.3.579.2.1259 Unknown [id number] 2.16.8 40.1.831497.3.579.2.531 Social History Date Type Detail Facility Start: 05-05-2021 End: 01-11-2023 Ex-smoker (finding) [facility] Start: 04-15-2023 End: 05-10-2023 Male [facility] Start: 1955 Sex Assigned At Male [facility] Tobacco smoking stat [facility] Tobacco smoking consumption unknown [facility] Start: 02-02-2023 Gender identity Identifies as male gender (finding) [facility] Start: 02-02-2023 Sexual orientation Heterosexual (finding) [facility] End: 09-27-1975 History of tobacco use Current smoker [facility] Work Phone: End: 09-27-1975 History of tobacco use Cigarette Smoker [facility] Work Phone: Start: 04-15-2023 End: 05-10-2023 History of Social function [facility] Adult Depression Screening Assessment 1 [facility] Start: 01-11-2023 Tobacco use and exposure Smokeless tobacco non-user [facility] Start: 07-12-2023 End: 08-09-2023 Alcohol intake Current drinker of alcohol (finding) [facility] Within the last year , have you been afraid of your partner or ex-partner? No [facility] Do you belong to any clubs or organizations such as protestant groups, unions, fraternal or athletic groups, or [...] To some extent [facility] (I/We) worried wheth er (my/our) food would run out before (I/we) got money to buy more. Never true [facility] Functional Status Date Assessment Result Facility 06-01-2022 Functional Status N/A [facility] 02-16-2022 N/A [facility] Clinical Notes 02-16-2022 to 08-09-2023 Jose Hernández NP - 08/09/2023 1:00 PM ESTPatient Laila Vizcaino [...] develop for requiring urgent evaluation. 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 Author Type: Physician Rn Mds Type: Progress Notes Filed: 04/15/2023 1:53 PM [...] chronic concerns Smoking Status: No, quit smoking 1976 BMI: 33.51 PAIN EVALUATION 04/13/2023 0843 04/13/2023 [...] a week. 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 [facility] 04-13-2023 Instructions aLila Pan PA-C - 04/13/2023 11:08 AM EDT [...] which is considered uptake). Laila Pan PA-C [phone] documented in this encounter [facility] 04-13-2023 History of Present illness Narrative Images [...] a week. 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 COMPARISON: 05/01/2022 TECHNIQUE: Multiplanar MR imaging of the lumbar spine was performed. FINDINGS: The spine is visualized from the K80-B0-C3 levels on the sagittal sequences, assuming a [...] narrowing. At the L5-S1 level, there is yecl-ne-mfuurtcs diffuse disc bulging and moderate hypertrophic facet changes, which results in moderate to marked neural foraminal narrowing. Procedure Note CONVERSION, GENERIC - 11/13/2022 PERFORMED AT [facility] LOCATION:[facility] CLINICAL HISTORY: Low back pain extending into the right lower extremity. COMPARISON: 05/01/2022 TECHNIQUE: Multiplanar MR imaging of the lumbar spine was performed. FINDINGS: The spine is visualized from the Q05-W5-E8 levels on the sagittal sequences, assuming a [...] narrowing. At the L5-S1 level, there is fjoz-bx-aikcbojb diffuse disc bulging and moderate hypertrophic facet changes, which results in moderate to marked neural foraminal narrowing. 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 Report reported and signed by James Vizcaino on 10/19/2022 1406 CONVERSION, GENERIC - 11/14/2022 PERFORMED AT [facility] LOCATION:[place] [address] EXAMINATION: XR HIPS JAIRO 3_4V WO [...] 8:55 AM PAGER: documented in this encounter [facility] 02-12-2023 Note HNO ID: [id number] Author: Laila Pan PA-C Service: ? Author Type: Physician Rn Mds Type: Progress Notes Filed: 02/12/2023 12:58 PM Note Text: Per Triage: Lawson Vela is a 68 year old male that requests evaluation of lumbar spine. Per review, they have symptoms of LBP into left leg pain. Positive for numbness, difficulty walking and weakness. 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 COMPARISON: 05/01/2022 TECHNIQUE: Multiplanar MR imaging of the lumbar spine was performed. FINDINGS: The spine is visualized from the G86-V0-E9 levels on the sagittal sequences, assuming a [...] narrowing. At the L5-S1 level, there is xtbv-wr-isnxwwdm diffuse disc bulging and moderate hypertrophic facet changes, which results in moderate to marked neural foraminal narrowing. Procedure Note CONVERSION, GENERIC - 11/13/2022 PERFORMED AT [facility] LOCATION:[facility] CLINICAL HISTORY: Low back pain extending into the right lower extremity. COMPARISON: 05/01/2022 TECHNIQUE: Multiplanar MR imaging of the lumbar spine was performed. FINDINGS: The spine is visualized from the W68-Z1-B9 levels on the sagittal sequences, assuming a [...] narrowing. At the L5-S1 level, there is pmie-pz-cjirforp diffuse disc bulging and moderate hypertrophic facet changes, which results in moderate to marked neural foraminal narrowing. 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 Report reported and signed by James Vizcaino on 10/19/2022 1543 Disposition: Please schedule with Laila. [facility] 02-12-2023 History of Present illness Narrative Per Triage: Lawson Vela is a 68 year old male that requests evaluation of lumbar spine. Per review, they have symptoms of LBP into left leg pain. Positive for numbness, difficulty walking and weakness. 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 COMPARISON: 05/01/2022 TECHNIQUE: Multiplanar MR imaging of the lumbar spine was performed. FINDINGS: The spine is visualized from the D40-B8-G4 levels on the sagittal sequences, assuming a [...] narrowing. At the L5-S1 level, there is bmgk-zn-bedwyspd diffuse disc bulging and moderate hypertrophic facet changes, which results in moderate to marked neural foraminal narrowing. Procedure Note CONVERSION, GENERIC - 11/13/2022 PERFORMED AT [facility] LOCATION:[facility] CLINICAL HISTORY: Low back pain extending into the right lower extremity. COMPARISON: 05/01/2022 TECHNIQUE: Multiplanar MR imaging of the lumbar spine was performed. FINDINGS: The spine is visualized from the U76-P4-W8 levels on the sagittal sequences, assuming a [...] narrowing. At the L5-S1 level, there is utce-uz-ncwyurso diffuse disc bulging and moderate hypertrophic facet changes, which results in moderate to marked neural foraminal narrowing. 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 Report reported and signed by James Vizcaino on 10/19/2022 1406 Disposition: Please schedule with Laila. Patient name: Lawson Vela Are you being referred by a [place] for Spine Health Provider or Pain Management Provider at [facility]? No If answer is YES please [...] the facility where the MRI/CT/myelogram was completed: [facility] Address: [address] [place] [address] [facility] Address: [address] [place] [address] MRI/CT/myelogram viewable in Epic: No If not, please provide [phone] to fax in imaging reports for review. [...] physical therapy was completed PT Injections [facility] Address: [address] [place] [address] Have you tried any other kinds of [...] where the surgery was completed: Additional Comments [phone] (Home Phone) documented in this encounter [facility] 01-28-2023 Note HNO ID: [id number] Author: Mookie Lee Service: ? Author Type: ? Type: [place] Notes Filed: 02/12/2023 12:58 PM Note Text: Patient name: Lawson Vela Are you being referred by a [place] for Spine Health Provider or Pain Management Provider at [facility]? No If answer is YES please [...] the facility where the MRI/CT/myelogram was completed: [facility] Address: [address] [facility] [place] [address] [facility] Address: [address] [place] [address] MRI/CT/myelogram viewable in Epic: No If not, please provide [phone] to fax in imaging reports for review. [...] Requested provider (First and Last name): Camron Mornoe Are you interested in a virtual visit [...] physical therapy was completed PT Injections [facility] Address: [address] [place] [address] Have you tried any other kinds of [...] where the surgery was completed: Additional Comments [phone] (Home Phone) [facility] 12-17-2022 Evaluation note Encounter Date Diagnosis Assessment [...] prednisone taper. Advised not to take any xifg-grw-tdhbpjj ibuprofen while taking prednisone. OARRS reviewed . [...] spine, education on diet, decrease sugar intake. [employer] Other 05-16-2023 NoteCONSULTATION CONSULTATION DATE: 11/10/2022 TO: [...] our patients to inform us about any xtin-isp-agstben medications or herbal remedies/nutritional supplements/alternative remedies. 2. [...] treatment options with their primary care provider.[facility] [id number] Note CONSULTATION CONSULTATION DATE: 10/08/2022 TO: Javad [...] our patients to inform us about any gsiz-amq-yvqnzja medications or herbal remedies/nutritional supplements/alternative remedies. 2. [...] treatment options with their primary care provider.[facility] [id number] Note CONSULTATION CONSULTATION DATE: 09/10/2022 HISTORY: This [...] a tightness in that region. Medications include Langford 5/325 daily, tizanidine 4 mg q.h.s., Mobic [...] in three months' time unless otherwise indicated.[facility] [id number] NoteCONSULTATION PROCEDURE DATE: 09/10/2022 PREOPERATIVE DIAGNOSIS: Bilateral [...] pattern, and patient tolerated the procedure well.[facility] [id number] Note CONSULTATION CONSULTATION DATE: 07/23/2022 HISTORY OF [...] current medications include Mobic 50 mg daily, Langford 5/325 per his PCP daily p.r.n. and [...] up in the office after the procedure.[facility] [id number] NoteCONSULTATION CONSULTATION DATE: 06/25/2022 HISTORY OF PRESENT [...] with a vitamin regimen and he takes Langford 5/325 daily p.r.n., and Mobic 15 mg [...] following his procedure here in the office.[facility] [id number] Hospital Discharge instructions Patient Education 06/01/2022 08:22:09 [...] urethra. Follow these instructions at home: Take gjct-esi-hxphkof and prescription medicines only as told by [...] 06/14/2006 Document Revised: 05/09/2019 Document Reviewed: 07/19/2017 Vizibility Patient Education [employer]. Follow Up Care 02/16/2022 11:28:21 With:PAMELA BAER, Mac Stephenson, URL Address: [facility] [address] , [place] [address]- When: Unknown [facility] 11-22-2022 NoteCONSULTATION CONSULTATION DATE: 05/19/2022 CHIEF COMPLAINT: [...] The patient currently takes Mobic 15 mg, Langford 5/325 on a p.r.n. basis as prescribed [...] had been performed. CC: Javad Donato M.D.[facility] [id number] NoteCONSULTATION CONSULTATION DATE: 04/28/2022 CHIEF COMPLAINT: Left [...] patient takes two Aleve. He also takes Langford 5/[address] Donato has prescribed for [...] would like to proceed. CC: Javad Donato M.D.[facility]08-22-2022 Hospital Discharge instructions Patient Education 02/16/2022 11:24:07 [...] urethra. Follow these instructions at home: Take pdyz-mix-ctbtsjo and prescription medicines only as told by [...] 06/14/2006 Document Revised: 05/09/2019 Document Reviewed: 07/19/2017 Vizibility Patient Education 2020 [employer]. 02/16/2022 11:24:04 Calorie Counting for Weight Loss [...] 06/14/2006 Document Revised: 03/03/2019 Document Reviewed: 05/14/2017 Vizibility Patient Education 2020 [employer]. Follow Up Care 08/18/2021 12:09:57 With:PAMELA BAER, Mac Stephenson, URL Address: [address] [place] [phone] (1) When:Within 6 Month(s) [facility] evaluation + Plan note Future Appointments Appointment Date:06/01/2022 10:45:00 AM Scheduled Provider:Mac BOYER MD Location:[facility] Appointment Type:URO Office Visit [facility] evaluation + Plan note Future Appointments Appointment Date:11/30/2022 08:45:00 AM Scheduled Provider:Mac BOYER MD Location:[facility] Appointment Type:URO Office Visit [facility] evaluation noteNo assessment information available [facility] Work Phone: evaluation noteNort i[employer] Other evaluation note* Diagnosis Spinal stenosis, lumbar region with neurogenic claudication- Primary [facility] Spinal stenosis, lumbar region with neurogenic claudication- Primary Bilateral hip joint arthritis [facility] Diagnosis Right hip pain- Primary [...] right hip replacement documented in this encounter [facility] HealthcareHistory general Narrative - Reported* Type Description Date Medical History appendicitis Medical History Arthritis Medical History Hypertension Medical History obesity Medical History pneumonia Medical History prostate cancer Surgical History appendectomy Surgical History carpal tunnel release 2017 Hospitalization History see surg [employer] Other History general Narrative - ReportedNort iPipeline Other Hospital course Narrative No data available for this section [facility] progress note No data available for this section [facility] reason for referral (narrative)* Diagnostic Procedure Only (Routine) - Pending Review Specialty Diagnoses / Procedures Referred By Contac t Referred To Contact XR IMAGING Diagnoses Bilateral hip joint arthritis Procedures XR HIP BILATERAL 5V PEL/AP/LAT EACH HIP RADEX HIPS BILATERAL WITH PELVIS MINIMUM 5 VIEWS Laila Pan PA-C [email or web address] [place] [id number] [facility] [place] [address] Referral ID Status Reason Start Date Expiration Date Visits Requested Visits Authorized [id number] Pending Review Auto-Generat ed Referral 3 05/12/2024 1 1 * Consult, Test, Treat (Routine) - Pending Review Specialty Diagnoses / Procedures Referred By Rayray t Referred To Contact Orthopedics Diagnoses Bilateral hip joint arthritis Procedures CONSULT TO ORTHOPAEDICS OFFICE/OUTPATIENT [facility] MDM 60-74 MINUTES Laila Pan PA-C [address] [place] [address] Referral ID Status Reason Start Date Expiration Date Visits Requested Visits Authorized [id number] Pending Review PCP Requested Referral 3 04/12/2024 1 1 [facility] for visit Narrativeself referral- low back pain L4-L5 [employer] Other Summary Purpose Family History No Family History Records FoundNo Family History Records FoundNo Family History Records FoundNo Family History Records FoundNo Family History Records FoundNo Family History Records FoundNo Family History Records FoundNo Family History Records Found Advance Directives No Advanced Directives Records Found Advance Directive Response Recorded Date/ Time Advance Directives No Lexii 22nd, 20 23 2:40pm Chief Complaint and Reason for Visit Chief Complaint M54.16 Additional Source Comments Care Team (unrecognized sect ion and content) Team Status: Active Member Role Status Dates Javad Donato II MD Primary Care Provider Active Team Status: Inactive Member Role Status Dates Javad Donato II MD Primary Care Provider Active [employer] Attending Provider Active [place] Artist Relationship Specialty Start Date End Date Javad Donato MD [address] [place] [address] PCP - ACO Reach 11/19/22 Javad Donato MD [address] [place] [address] PCP - General Internal Medicine 01/05/23 [employer] Artist Relationship Specialty Start Date End Date Javad Donato MD [address] [place] [address] PCP - ACO Reach 11/19/22 Javad Donato MD [address] [place] [address] PCP - General Internal Medicine 01/05/23 [employer] Artist Relationship Specialty Start Date End Date Javad Donato MD [address] [place] [address] PCP - ACO Reach 11/19/22 Javad Donato MD [address] [place] [address] PCP - General Internal Medicine 01/05/23 [employer] Artist Relationship Specialty Start Date End Date Javad Donato MD [address] [place] [address] PCP - ACO Reach 11/19/22 Javad Donato MD [address] [place] [address] PCP - General Internal Medicine 01/05/23 [employer] Artist Relationship Specialty Start Date End Date Javad Donato MD [address] [place] [address] PCP - ACO Reach 11/19/22 Javad Donato MD [address] [place] [address] PCP - General Internal Medicine 01/05/23 [employer] Artist Relationship Specialty Start Date End Date Javad Donato MD [address] [place] [address] PCP - ACO Reach 11/19/22 Javad Donato MD [address] [place] [address] PCP - General Internal Medicine 01/05/23 [employer] Artist Relationship Specialty Start Date End Date Javad Donato MD [address] [place] [address] PCP - ACO Reach 11/19/22 Javad Donato MD [address] [place] [address] PCP - General Internal Medicine 01/05/23 (unrecognized sect ion and content) No Status Records FoundNo Status Records FoundNo Status Records FoundNo Status Records FoundNo Status Records FoundNo Status Records FoundNo Status Records FoundNo Status Records Found INFORMATION SOURCE (unrecogn ized section and content) DATE CREATED AUTHOR 05/02/2022 [facility] dical Specialist DATE CREATED AUTHOR AUTHOR'S ORGANIZ ATION 12/04/2022 [facility] DATE CREATED AUTHOR AUTHOR'S ORGANIZ ATION 01/13/2023 [facility] DATE CREATED AUTHOR AUTHOR'S ORGANIZ ATION 02/13/2023 [facility] DATE CREATED AUTHOR AUTHOR'S ORGANIZ ATION 04/17/2023 [facility] DATE CREATED AUTHOR AUTHOR'S ORGANIZ ATION 07/11/2023 [facility] DATE CREATED AUTHOR AUTHOR'S ORGANIZ ATION 08/30/2023 Zelaya Gunnison [facility] DATE CREATED AUTHOR AUTHOR'S ORGANIZ ATION 11/07/2023 [facility] dical Specialists EPIC Goals (unrecognized [...] or prosecute any alcohol or drug abuse patient.[facility] HealthcareIn the event this information is protected by the Federal Confidentiality of Alcohol and Drug Abuse Patient Records regulations: The Federal rules restrict any use of the information to criminally investigate or prosecute any alcohol or drug abuse patient.[facility] Reason for Visit (unrecogniz ed section and content) Reason Comments New Patient Specialty Diagnoses / Procedures Referred By Contac t Referred To Contact Physical Therapy Diagnoses Presence of artificial hip joint, right Procedures MT OFFICE/OUTPATIENT NEW HIGH MDM 60 MINUTES Charissa Blair DO [address] [address] [address] [place] [address] Referral ID Status Reason Start Date Expiration Date Visits Requested Visits Authorized [id number] Authorized Specialty Services Required 07/08/2023 01/04/2024 30 [...] BE BASED ON THE PRIMARY CLINICAL RECORDS. [facility]. provides no warranty or guarantee of the accuracy or completeness of information in this document.
[2023-11-30 07:01] VITALS: BP 160/88; PULSE 94; TEMP 36.2; O2SAT 96
[2023-11-30 07:04] LABS: Glucometer 110 mg/dL (74-106)
[2023-11-30] MEDS: LIDOCAINE HCL 2% PF 100 MG/5 ML VIAL 2 ML INJ (08:00)
[2023-11-30] MEDS: BUPIVACAINE HCL 0.25% PF 25 MG/10 ML VIAL 2 ML INJ (08:00)
[2023-11-30] MEDS: METHYLPREDNISOLONE ACETATE 80 MG/ML VIAL INJ (08:00)
[2023-11-30] MEDS: 0.9 % SODIUM CHLORIDE 10 ML SYRINGE - SALINE FLUSH 2 ML INJ (08:00)
[2023-11-30] MEDS: IOHEXOL 240 MG/ML - 10 ML VIAL 24 MG INJ (08:00)
[2023-11-30 08:01] VITALS: BP 140/93; PULSE 86; O2SAT 97
[2023-11-30 08:02] VITALS: BP 146/80; PULSE 78; O2SAT 97
--- NOTE | 2023-11-30 08:18 | P.ON_ITS ---
Date of procedure: 11/30/23 Pre-op diagnosis: lumbar stenosis with neurogenic claudication Post-op diagnosis: same as pre-op Procedure: Lumbar 5/sacral 1 Epidural Steroid Injection Under fluoroscopic guidance Immediate complications none Solution used for injection: Marcaine 0.25% 2mL, 2cc Normal saline, Depo-Medrol 80mg Omnipaque 3 mL Anesthesia local 2% lidocaine up to 4ml Timeout process compliant After informed consent obtained. Patient brought to the procedure room placed in the prone position. Skin overlying the area was prepped and draped in a sterile fashion using betadine. 25 gauge needle used to raise a skin wheel with local anesthetic over the target area identified under fluoroscopy. A 17 gauge Touhy needle Was inserted over the anesthetized area and directed towards the inter- space under fluoroscopic guidance. Epidural space was identified with loss of resistance technique to air. Needle Tip placement confirmed with injection of contrast solution. Steroid solution was then injected. Anesthesia: Local Surgeon: Agnieszka Ayoub Condition: stable Disposition: PACU
== END 2023-11-30 08:07 | disposition home or self-care (01) ==
PROVIDERS: PCP Internal Medicine; Visit Provider Anesthesiology Pain Medicine
DX: M48.062 Spinal stenosis, lumbar region with neurogenic claudication (principal); Z79.899 Other long term (current) drug therapy
CPT/HCPCS: 36415; 62323; 82948; J1010; Q9966

== ENCOUNTER 2023-12-09 14:14 | Outpatient (OUT) | payer MEDICARE, OTHER, SELFPAY ==
--- NOTE | 2023-12-09 14:52 | P.CN_ITS ---
Consult Note: HPI Data of Consult Patient: known to practice within the last 3 years Requesting Physician: Kath Steiner NP Primary Care Provider: JOHNATHAN LÓPEZ Consult Narrative Reason for consult: f/u Narrative: Lawson martin a pleasant 68 year old male presents for evaluation of chronic low back, left posterior thigh and buttocks pain. Patient rating pain 0-1/10 today increasing to 2-3/10. Pain increased with all activity, improved with sleep and sitting. Patient reporting mild relief from ibuprofen, tizanidine, and norco 5mg. Patient underwent right hip replacement 07/21 and is hoping to have left hip replaced 04/20. Patient recently underwent L5/S1 JEN with >85% improvement ongoing, reports this is the best he has felt in 2 years and we gave him his day to day life back. Patient reporting significant improvement in pain while standing and walking, as well as performing chores. cc:: CC: Kath Stiener NP Review of Systems ROS Status of ROS 10 or more systems reviewed and unremark able except as noted in history and below Musculoskeletal Reports: joint pain PFSH PFSH Medical History Neuritis ?M79.2 - Neuralgia and neuritis, unspecified (ICD-10) Left carpal tunnel syndrome ?G56.02 - Carpal tunnel syndrome, left upper limb (ICD-10) Osteoarthritis ?M19.90 - Unspecified osteoarthritis, unspecified site (ICD-10) Low back pain ?M54.50 - Low back pain, unspecified (ICD-10) Obesity ?E66.9 - Obesity, unspecified (ICD-10) Enlarged prostate ?N40.0 - Benign prostatic hyperplasia without lower urinary tract symptoms (ICD-10) Former smoker ?Z87.891 - Personal history of nicotine dependence (ICD-10) Hypertension ?I10 - Essential (primary) hypertension (ICD-10) Surgical History Hx of appendectomy ?Z90.49 - Acquired absence of other specified parts of digestive tract (ICD- 10) Social History Smoking status: Former smoker Meds Home Medications and Allergies Home Medications ?Medication ?Instructions ?Recorded ?Confirmed ?Type ascorbic acid (vitamin C) 500 mg 500 mg PO DAILY 12/10/22 11/30/23 History tablet (C-500) bee pollen 550 mg capsule mg PO .QD 12/10/22 History carvedilol 6.25 mg tablet 6.25 mg PO BID 12/10/22 11/30/23 History cholecalciferol (vitamin D3) 10 10 mcg PO DAILY 12/10/22 11/30/23 History mcg (400 unit) capsule (Vitamin D3) finasteride 5 mg tablet 5 mg PO .QD 12/10/22 11/30/23 History hydrocodone 5 mg-acetaminophen 325 1 tab PO QID PRN pain 12/10/22 11/30/23 History mg tablet mecobalamin (vitamin B12) 1,000 1,000 mcg PO DAILY 12/10/22 11/30/23 History mcg chewable tablet (B12 Active) meloxicam 15 mg tablet 15 mg PO .QD 12/10/22 11/30/23 History multivitamin 1 tab PO DAILY 12/10/22 11/30/23 History sildenafil 100 mg tablet (Viagra) 100 mg PO DAILY PRN sexual activity 12/10/22 11/30/23 History solifenacin 10 mg tablet 10 mg PO DAILY 12/10/22 11/30/23 History tamsulosin 0.4 mg capsule 0.4 mg PO Q24H 12/10/22 11/30/23 History tizanidine 4 mg capsule 4 mg PO .HS PRN muscle spasticity 12/10/22 11/30/23 History vitamin B complex (Complex B-100 1 tab PO DAILY 12/10/22 11/30/23 History tablet,extended release) zinc 50 mg tablet 50 mg PO DAILY 12/10/22 11/30/23 History Allergies Allergy/AdvReac Type Severity Reaction Status Date / Time No Known Drug Allergies Allergy Verified 11/30/23 06:59 Exam Constitutional Documenting provider has reviewed patient's vital signs: yes Common normals: no apparent distress, oriented x3, healthy appearing, alert and well nourished General appearance: cooperative Nutritional appearance: obese HENIL Common normals: normocephalic, hearing grossly normal bilaterally and moist oral mucous membranes Head and scalp: normocephalic Eye Common normals: PERRL Pupil: PERRL Neck & C-Spine Common normals: full ROM General: normal visual inspection Chest Common normals: inspection of chest normal Respiratory Common normals: normal respiratory effort, no retractions and no use of accessory muscles Back & Pelvis Lumbar spine/lower back: ROM limited and pain with ROM Sacroiliac joints: SI joints normal Other: sensation intact BLE strength 5/5 in BLE Extremity Common normals: normal to inspection and full ROM Left lower extremity: hip joint Other: pain increased with internal and external log roll Neuro Common normals: oriented x3, CN's II-XII intact bilaterally, moves all extremities, no focal motor deficits, no sensory deficits noted and deep tendon reflexes 2+ bilaterally Sensorium/orientation: alert Gait (neuro): antalgic Motor exam: strength 5/5 throughout and no movement abnormalities noted Psych Common normals: mental status grossly normal, thought process normal, cooperative, affect normal, speech normal and activity/motor behavior normal Speech: normal speech Thought process: normal thought process Results Additional Findings Additional findings: If on a controlled substance or opioids, I have checked an [place]AR[place] report on this patient and there are no aberrancies noted in the prescribing history.??If on a controlled substance or opioid a drug screen was completed and reviewed within the last year, and if there has not been a drug screen completed we ordered one today to monitor higher risk, state monitored pain medication use. As part of providing excellent, safe, comprehensive care, the following was completed at our patient's visit: 1. A medication reconciliation and review to ensure accurate knowledge of current/active medications, including asking our patients to inform us about any [id number] medications or herbal remedies/nutritional supplements/alternative remedies. 2. A review to specifically ensure our patients have had annual screening for screening for depression, screening for tobacco use, and screening for unhealthy alcohol use. For concerning screenings had a discussion with the patient, provided patient education, and recommended follow-up with primary care provider when appropriate. If patient noted with a risk of falling, they received education on strength, gait, and balance training to prevent future risk of falling. Assessment and Plan Assessment and Plan (1) Lumbar stenosis with neurogenic claudication: (2) Myofascial pain: (3) Lumbar spondylosis: (4) Sacroiliac joint pain: Assessment and Plan: improved on physical exam Plan L5-S1 JEN under fluoroscopy for lumbar stenosis with NC providing significant improvement ongoing continue pt and aquatherapy f/u 3 months, sooner if needed
== END 2023-12-09 14:15 | disposition home or self-care (01) ==
LOC: PM 14:14
PROVIDERS: PCP Internal Medicine; Visit Provider Nurse Practitioner
DX: M48.062 Spinal stenosis, lumbar region with neurogenic claudication (principal); M79.18 Myalgia, other site; M47.816 Spondylosis without myelopathy or radiculopathy, lumbar region; M53.3 Sacrococcygeal disorders, not elsewhere classified
CPT/HCPCS: G0463

== ENCOUNTER 2024-01-05 13:40 | Outpatient (OUT) | payer MEDICARE, OTHER, SELFPAY ==
--- NOTE | 2024-01-05 14:36 | P.CN_ITS ---
Consult Note: HPI Data of Consult Patient: known to practice within the last 3 years Requesting Physician: Kath Steiner NP Primary Care Provider: JOHNATHAN LÓPEZ Consult Narrative Reason for consult: f/u Narrative: Lawson martin a pleasant 68 year old male presents for evaluation of chronic low back, left posterior thigh and buttocks pain. Patient rating pain 0-1/10 today increasing to 2-3/10. Pain increased with all activity, improved with sleep and sitting. Patient reporting mild relief from ibuprofen, tizanidine, and norco 5mg. Patient underwent right hip replacement 07/21 and is hoping to have left hip replaced 04/20. Patient recently underwent L5/S1 JEN with >80% improvement ongoing, reports this is the best he has felt in 2 years and we gave him his day to day life back. Patient reporting significant improvement in pain while standing and walking, as well as performing chores. cc:: CC: Kath Steiner NP Review of Systems ROS Status of ROS 10 or more systems reviewed and unremark able except as noted in history and below Musculoskeletal Reports: joint pain PFSH PFSH Medical History Neuritis ?M79.2 - Neuralgia and neuritis, unspecified (ICD-10) Left carpal tunnel syndrome ?G56.02 - Carpal tunnel syndrome, left upper limb (ICD-10) Osteoarthritis ?M19.90 - Unspecified osteoarthritis, unspecified site (ICD-10) Low back pain ?M54.50 - Low back pain, unspecified (ICD-10) Obesity ?E66.9 - Obesity, unspecified (ICD-10) Enlarged prostate ?N40.0 - Benign prostatic hyperplasia without lower urinary tract symptoms (ICD-10) Former smoker ?Z87.891 - Personal history of nicotine dependence (ICD-10) Hypertension ?I10 - Essential (primary) hypertension (ICD-10) Surgical History Hx of appendectomy ?Z90.49 - Acquired absence of other specified parts of digestive tract (ICD- 10) Social History Smoking status: Former smoker Meds Home Medications and Allergies Home Medications ?Medication ?Instructions ?Recorded ?Confirmed ?Type ascorbic acid (vitamin C) 500 mg 500 mg PO DAILY 12/10/22 11/30/23 History tablet (C-500) bee pollen 550 mg capsule mg PO .QD 12/10/22 History carvedilol 6.25 mg tablet 6.25 mg PO BID 12/10/22 11/30/23 History cholecalciferol (vitamin D3) 10 10 mcg PO DAILY 12/10/22 11/30/23 History mcg (400 unit) capsule (Vitamin D3) finasteride 5 mg tablet 5 mg PO .QD 12/10/22 11/30/23 History hydrocodone 5 mg-acetaminophen 325 1 tab PO QID PRN pain 12/10/22 11/30/23 History mg tablet mecobalamin (vitamin B12) 1,000 1,000 mcg PO DAILY 12/10/22 11/30/23 History mcg chewable tablet (B12 Active) meloxicam 15 mg tablet 15 mg PO .QD 12/10/22 11/30/23 History multivitamin 1 tab PO DAILY 12/10/22 11/30/23 History sildenafil 100 mg tablet (Viagra) 100 mg PO DAILY PRN sexual activity 12/10/22 11/30/23 History solifenacin 10 mg tablet 10 mg PO DAILY 12/10/22 11/30/23 History tamsulosin 0.4 mg capsule 0.4 mg PO Q24H 12/10/22 11/30/23 History tizanidine 4 mg capsule 4 mg PO .HS PRN muscle spasticity 12/10/22 11/30/23 History vitamin B complex (Complex B-100 1 tab PO DAILY 12/10/22 11/30/23 History tablet,extended release) zinc 50 mg tablet 50 mg PO DAILY 12/10/22 11/30/23 History Allergies Allergy/AdvReac Type Severity Reaction Status Date / Time No Known Drug Allergies Allergy Verified 11/30/23 06:59 Exam Constitutional Documenting provider has reviewed patient's vital signs: yes Common normals: no apparent distress, oriented x3, healthy appearing, alert and well nourished General appearance: cooperative Nutritional appearance: obese HENAR Common normals: normocephalic, hearing grossly normal bilaterally and moist oral mucous membranes Head and scalp: normocephalic Eye Common normals: PERRL Pupil: PERRL Neck & C-Spine Common normals: full ROM General: normal visual inspection Chest Common normals: inspection of chest normal Respiratory Common normals: normal respiratory effort, no retractions and no use of accessory muscles Back & Pelvis Lumbar spine/lower back: ROM limited and pain with ROM Sacroiliac joints: SI joints normal Other: sensation intact BLE strength 5/5 in BLE Extremity Common normals: normal to inspection and full ROM Left lower extremity: hip joint Other: pain increased with internal and external log roll Neuro Common normals: oriented x3, CN's II-XII intact bilaterally, moves all extremities, no focal motor deficits, no sensory deficits noted and deep tendon reflexes 2+ bilaterally Sensorium/orientation: alert Gait (neuro): antalgic Motor exam: strength 5/5 throughout and no movement abnormalities noted Psych Common normals: mental status grossly normal, thought process normal, cooperative, affect normal, speech normal and activity/motor behavior normal Speech: normal speech Thought process: normal thought process Results Additional Findings Additional findings: If on a controlled substance or opioids, I have checked an [place]ARRS report on this patient and there are no aberrancies noted in the prescribing history.??If on a controlled substance or opioid a drug screen was completed and reviewed within the last year, and if there has not been a drug screen completed we ordered one today to monitor higher risk, state monitored pain medication use. As part of providing excellent, safe, comprehensive care, the following was completed at our patient's visit: 1. A medication reconciliation and review to ensure accurate knowledge of current/active medications, including asking our patients to inform us about any [id number] medications or herbal remedies/nutritional supplements/alternative remedies. 2. A review to specifically ensure our patients have had annual screening for screening for depression, screening for tobacco use, and screening for unhealthy alcohol use. For concerning screenings had a discussion with the patient, provided patient education, and recommended follow-up with primary care provider when appropriate. If patient noted with a risk of falling, they received education on strength, gait, and balance training to prevent future risk of falling. Assessment and Plan Assessment and Plan (1) Lumbar stenosis with neurogenic claudication: (2) Myofascial pain: (3) Lumbar spondylosis: (4) Sacroiliac joint pain: Assessment and Plan: improved on physical exam Plan L5-S1 JEN under fluoroscopy for lumbar stenosis with NC providing significant improvement ongoing continue HEP as tolerated, found benefit to PT and aquatherapy f/u 2 months, sooner if needed
== END 2024-01-05 13:41 | disposition home or self-care (01) ==
LOC: PM 13:40
PROVIDERS: PCP Internal Medicine; Visit Provider Nurse Practitioner
DX: M48.062 Spinal stenosis, lumbar region with neurogenic claudication (principal); M47.816 Spondylosis without myelopathy or radiculopathy, lumbar region; M79.18 Myalgia, other site; M53.3 Sacrococcygeal disorders, not elsewhere classified
CPT/HCPCS: G0463

== ENCOUNTER 2024-03-01 07:43 | Outpatient (OUT) | payer MEDICARE, OTHER, SELFPAY ==
--- OUTSIDE RECORDS SUMMARY | 2024-03-01 07:47 | XMS_ITS | CCD ---
Author Organization [facility] Care Team Providers Care Maintenance And Utilities Supervisor Name Role Phone JAVAD DONATO Primary Care Physician [phone] HA[place] ., DR ANTIONE Fletcher Admitting Unavailable [...] DR MANN Attending Unavailable MARIBEL, DR MANN Admjo Unavailable LAKSHMIPATHY ., JUN Attending Peyton vailable MARIBEL, DR MANN Primary Care Unavailable RA, DR DEVIN Novak Consulting Unavailable LAKSHMIPATHY ., JUN Admitting Peyton vailable LAKSHMIPATHY ., JUN Consulting Peyton vailable HAWTHORNE ., DR ANTIONE Fletcher Admitting Unavailable HAWTHORNE ., DR ANTIONE Fletcher Consulting Unavailable HAWTHORNE ., DR ANTIONE Fletchre Attending Unavailable MARIBEL, DR MANN Primary Care [...] ., NARENDRANATH Consulting Peyton vailable LAKSHMIPATHY ., NARENDRANATH Attending Peyton vailable MARIBEL, DR MANN Primary [...] Xiong Unavailable SIMONA Donato Primary Care Provider [phone] ANGELA Xiong Attending Provider Erica Xiong Admitting Unavailable Erica Xiong Attending Unavailable Javad Donato Primary Care Unavailable Unavailable Primary Care Provider UnavailLAILA Cardenas Attending Unavailable CHARISSA BLAIR Referring Unavailable JAVAD DONATO Primary Care Unavailable CHARISSA BLAIR Admitting Unavailable CHARISSA BLAIR Attending Unavailable JAVAD DONATO Primary Care Unavailable DEVIN SAUL Attending Unavailable JAVAD DONATO B Primary Care Unavailable CHARISSA BLAIR Attending Unavailable CHARISSA BLAIR Referring Unavailable JAVAD DONATO Primary Care Unavailable Javad Donato MD Unavailable [phone] Javad Donato MD Primary Care Provider Mac BOYER Attending Unavailable Mac BOYER Attending Unavailable JAVAD DONATO Attending Unavailable JOSE HERNÁNDEZ Attending Unavailable NAGI PLATA Attending Unavailable NURY, CHARISSA Rose Referring Unavailable JEANNIE MENDIOLA Attending Unavailable [place], CHARISSA Rose Referring Unavailable JEANNIE MENDIOLA Attending Unavailable [place], CHARISSA Rose Referring Unavailable JEANNIE MENDIOLA Attending Unavailable [place], CHARISSA Rose Referring Unavailable HERNÁNDEZ, JOSE Barkley Attending Unavailable HERNÁNDEZ, JOSE Barkley Referring Unavailable NAGI PLATA Attending Unavailable NURY, CHARISSA Rose Referring Unavailable JEANNIE MENDIOLA Attending Unavailable [place], CHARISSA Rose Referring Unavailable JAVAD DONATO Attending Unavailable JEANNIE MENDIOLA Attending Unavailable [place], CHARISSA Rose Referring Unavailable NAGI PLATA Attending Unavailable NURY, CHARISSA Rose Referring Unavailable NAGI PLATA Attending Unavailable [place], CHARISSA Rose Referring Unavailable EDGAR, JOSE Barkley Attending Unavailable HERNÁNDEZ, JOSE Barkley Attending Unavailable HERNÁNDEZ, JOSE Barkley Referring Unavailable HERNÁNDEZ, JOSE Barkley Attending Unavailable HERNÁNDEZ, JOSE Barkley Referring Unavailable [place], CHARISSA Rose Attending Unavailable [facility] Attending Unavailable [place], CHARISSA Rose Attending Unavailable [facility] Attending Unavailable [place], CHARISSA Rose Referring Unavailable GEOFFREY MCCLENDON Attending Unavailable [place], CHARISSA Rose Attending Unavailable [place], CHARISSA Rose Referring Unavailable Allergies Allergy Classification Reported Allergen(s) Allergy Type Date of Onset Reaction(s) Facility (9 sources) carvedilol; Translations: [CARVEDILOL] Drug Allergy 06-29-2022 [facility] Medications Current Medications Medication Drug Class(es) Dates Sig (Normalized) Sig (Original) acetaminophen 500 mg oral tablet (1 source) Start: 02-07-2024 take 1 tablet by mouth every six hours Tylenol Extra Strength 500 mg oral tablet See Instructions, tab(s) mg Oral q6hr, Refills(s) 0 Start Date: 02/07/24 Status: Ordered acetaminophen 325 mg / HYDROcodone bitartrate 5 mg oral tablet (4 sources) Opioid Agonist Start: 02-07-2024 take 1 tablet by mouth every six hours [place] 325 mg-5 mg oral tablet 1 tab(s), Oral, q6hr, Refill(s) 0 Start Date: 02/07/24 Status: Ordered HYDROcodone-acet aminophen (NORCO) 5-325 mg per tablet take 1 tablet by yvon th every six hours take 1 tablet by yvon th every six hours HYDROcodone-Acetaminophen 5-325 MG 1 tab let as needed Orally every 6 hrs Active Ascorbic Acid (11 sources) Vitamin C Start: 02-16-2022 Vitamin C [...] Refill(s) 0 Start Date: 06/14/20 Status: Ordered Cholecalciferol (9 sources) Vitamin D Start: 02-07-2024 cholecalciferol 1,250 mcg, Daily, Refills(s) 0 Start Date: 02/07/24 Status: Ordered cholecalciferol (Vitamin D3) 25 MCG (1000 UT) [...] 08/07/2023 Active finasteride 5 mg oral tablet (14 sources) 5-alpha Reductase Inhibitor Start: 08-30-2023 take 1 tablet by mouth once daily finasteride 5 mg Tab 5 mg = 1 tab(s), Oral, Daily, # 90 tab(s), Refills(s) 3, Pharmacy: [facility] [id number], 186, cm, 02/08/23 11:10:00 EDT, Height/Length Dosing, 129, kg, 02/08/23 11:10:00 EDT, Weight Dosing Start Date: 08/30/23 Status: Ordered Start: 06-24-2021 take 1 tablet by yvon th in the morning finasteride (Proscar) 5 MG tablet Take 5 mg by mouth in the morning. 0 10/21/2022 Active Comment on above: Take 5 mg by mouth. Diflucan (2 sources) Azole Antifungal Start: 020 Diflucan Refills(s) 0 Start Date: 06/14/20 Status: Ordered hydroCHLOROthiazide 12.5 mg / irbesartan 150 mg oral tablet (12 sources) Thiazide Diuretic, Angiotensin 2 Receptor Becca Start: 023 take 1 tablet by mouth in the morning irbesartan-hydroCHL OROthiazide (Avalide) 150-12.5 MG tablet Indications: Benign essential hypertension (CMS/HCC) Take 1 tablet by mouth in the morning. 100 tablet 2 02/08/2023 Active Start: 02-08-2023 Irbesartan-hyd roCHLOROthiazide 150-12.5 mg per tablet Take by mouth. 0 02/08/2023 Active Start: 02-08-2023 take 1 tablet by yvon th once daily hydrochlorothiazide-irbesartan 12.5 mg-1 50 mg Tab 1 tab(s), Oral, Daily Start Date: 02/08/23 Status: Ordered take 1 tablet by yvon th every [...] a day for 30 days Nov, Active Magnesium glycinate (1 source) Start: 02-07-2024 take 1 tablet by mouth every twenty-four hours magnesium glycinate 200 mg oral tablet 200 mg = 1 tab(s), Oral, q24hr, Refills(s) 0 Start Date: 02/07/24 Status: Ordered meloxicam 15 mg oral tablet (13 sources) [...] Nov, Active sildenafil 100 mg oral tablet (11 sources) Phosphodiesterase 5 Inhibitor Start: 02-07-2024 sildenafil 100 mg Tab 100 mg = 1 tab(s), REGIMEN As Directed, Refills(s) 0 Start Date: 02/07/24 Status: Ordered sildenafil (Viag ra) 100 MG tablet 1 (one) time each day at the same time. 0 Active solifenacin succinate 10 mg oral tablet (14 sources) Cholinergic Muscarinic Antagonist Start: 09-30-2023 take 1 tablet by mouth once daily Vesicare 10 mg Tab 10 mg = 1 tab(s), Oral, Daily, # 30 tab(s), Refills(s) 11, Pharmacy: [facility] [id number], 186, cm, 02/08/23 11:10:00 EDT, Height/Length Dosing, 129, kg, 02/08/23 11:10:00 EDT, Weight Dosing Start Date: 09/30/23 Status: Ordered Start: 11-25-2021 take 1 tablet by mouth every t wenty-four hours Comment on above: 1 (one) time each da y at the same time. tamsulosin hydrochloride 0.4 mg oral capsule (14 sources) alpha-Adrenergic Becca Start: 09-29-2023 take 1 capsule by mouth twice daily tamsulosin 0.4 mg Cap 0.4 mg = 1 cap(s), Oral, BID, # 60 cap(s), Refills(s) 11, Pharmacy: [facility] [id number], 186, cm, 02/08/23 11:10:00 EDT, Height/Length Dosing, 129, kg, 02/08/23 11:10:00 EDT, Weight Dosing Start Date: 09/29/23 Status: Ordered Start: 08-21-2022 take 1 capsule by [facility] every twenty-four hours in the morning tamsulosin (Flomax) 0.4 MG 24 hr capsule Take 0.4 mg by mouth in the morning and 0.4 mg before bedtime. 0 08/21/2022 Active Start: 06-30-2021 tamsulosin (FL OMAX) 0.4 mg Take 0.4 mg by mouth. 0 07/29/2022 Active Comment on above: Take 0.4 mg by mouth . tiZANidine 4 mg oral tablet (12 sources) Central alpha-2 Adrenergic Agonist Start: 02-07-2024 take 1 tablet by mouth every eight hours tiZANidine 4 mg Tab 4 mg = 1 tab(s), Oral, q8hr, Refills(s) 0 Start Date: 02/07/24 Status: Ordered Start: 04-03-2022 tiZANidine (Za naflex) 4 MG tablet 1 tablet as needed Orally at bedtime for 30 days 0 04/03/2022 Active Comment on above: 1 tablet as needed O rally at bedtime for 30 days Vitamin B Complex oral capsule (1 source) Start: 02-07-2024 take 1 capsule by mouth once daily Vitamin B Complex oral capsule 1 cap(s), Oral, Daily, Refill(s) 0 Start Date: 02/07/24 Status: Ordered vitamin B12 (10 sources) Vitamin B12 Start: 02-16-2022 Vitamin B12 Refills(s) 0 Start Date: 02/16/22 Status: Ordered cyanocobalamin ( Vitamin B-12) 100 MCG tablet as directed Orally 0 Active Zinc (3 sources) Start: 02-16-2022 take 1 mg by mouth once daily Zinc mg, Oral, Daily, Refills(s) 0 Start Date: 02/16/22 Status: Ordered zinc gluconate 50 mg oral tablet (8 sources) zinc gluconate 5 0 MG tablet 1 (one) time each day at the same time. 0 Active Completed/Discontinued Medications Medication Drug Class(es) Dates Sig (Normalized) Sig (Original) cefTRIAXone (1 source) Cephalosporin Antibacterial Start: 12-17-2016 [...] # 30 tab(s), Refills(s) 3, [facility]: [id number], 186, cm, 06/17/20 14:49:00 EST, Height/Length Dosing, 122, kg, 06/17/20 14:49:00 EST, Weight Dosing Start Date: 06/17/20 Status: Ordered Problems Active Problems Problem Classification Problem Date Documented Date Episodic/Chronic Diabetes mellitus without complication (8 sources) Impaired glucose tolerance; Translations: [Impaired glucose tolerance (oral)] Onset: 06-30-2023 06-30-2023 Episodic Disorders of lipid metabolism (3 sources) Hyperlipidemia 06-17-2020 Chronic Esophageal disorders (8 sources) Gastroesophageal reflux disease without esophagitis; Translations: [Gastro-esophageal reflux disease without esophagitis] Onset: 01-11-2023 01-11-2023 Chronic Essential hypertension (20 sources) Hypertensive disorder; Translations: [Essential (primary) hypertension] Onset: 08-13-2022 06-17-2020 Chronic Genitourinary symptoms and ill-defined conditions (8 sources) Urge incontinence; Translations: [Post-micturition incontinence ] Onset: 02-16-2022 Chronic Genitourinary symptoms and ill-defined conditions (6 sources) Increased frequency of urination; Translations: [Nocturia] 06-17-2020 Episodic Gout and other crystal arthropathies (3 sources) Gout 06-17-2020 Chronic Headache; including migraine (3 sources) Headache 06-17-2020 Episodic Hyperplasia of prostate (14 sources) Benign prostatic hypertrophy with outflow obstruction; [...] unspecified site] Onset: 08-04-2023 08-04-2023 Episodic Other diseases of bladder and urethra (1 source) Detrusor overactivity; Translations: [Overactive bladder] Onset: 02-07-2024 Chronic Other diseases of bladder and urethra (1 source) Overactive bladder 02-07-2024 Chronic Other injuries and conditions due to external causes (3 sources) Injury of head 06-17-2020 Episodic Other male genital disorders (6 sources) Male erectile dysfunction, unspecified; Translations: [Erectile [...] Chronic Other nutritional; endocrine; and metabolic disorders (5 sources) Body mass index 30+ - obesity; [...] Test Name Value Interpretation Reference Range Facility Ambulatory Visit Summaryon 0 02-07-2024 Ambulatory Visit Summary Ambulatory Visit Summary LAWSON VELA :1955 Visit Date:02/07/2024 Ambulatory Visit Instructions Your Diagnosis BPH with urinary obstruction OAB (overactive bladder) ED (erectile dysfunction) Your Care Team Attending Physician - PAMELA BAER, Mac Stephenson Primary Care Physician - JAVAD DONATO MD This Is Your Medications List finasteride (finasteride 5 mg Tab) solifenacin (Vesicare 10 mg Tab) tamsulosin (tamsulosin 0.4 mg Cap) Contact prescribing physician if questions or concerns acetaminophen (Tylenol Extra Strength 500 mg oral tablet) acetaminophen-hydrocod one ([place] 325 mg-5 mg oral tablet) ascorbic acid (Vitamin C) cholecalciferol hydrochlorothiazide-ir besartan (hydrochlorothiazide-i rbesartan 12.5 mg-150 mg Tab) magnesium glycinate (magnesium glycinate 200 mg oral tablet) multivitamin (Vitamin B Complex oral capsule) sildenafil (sildenafil 100 mg Tab) tizanidine (tiZANidine 4 mg Tab) zinc sulfate (Zinc) Procedures Performed Urodynamics (04/22/2021), Cystoscopy (11/26/2020), Vasectomy (2009), Appendectomy (1966), Arthroplasty of right hip, Carpal tunnel, Colonoscopy. Discharge Vitals Temperature (Temporal Artery) 37 ?C Heart Rate (Peripheral) 75 Respiratory Rate 16 Blood Pressure 132/82 Height 186 cm Height 73 in Weight 131.2 kg Weight 288.64 lb BMI 37.92 What to do next You Need to Schedule the Following Appointments Follow Up with PAMELA BAER, FEROZ Lopez When: Where: [facility] [address], [place] [address]- Medications What How Much When Instructions Unchanged finasteride (finasteride 5 mg Tab) 1 Tablets By Mouth Every day Unchanged solifenacin (Vesicare 10 mg Tab) 1 Tablets By Mouth Every day Unchanged tamsulosin (tamsulosin 0.4 mg Cap) 1 Capsules By Mouth 2 times a day Unchanged acetaminophen (Tylenol Extra Strength 500 mg oral tablet) See instructions tab(s) mg Oral q6hr Contact prescribing physician if questions or concerns Unchanged acetaminophen-hydrocod one ([place] 325 mg-5 mg oral tablet) 1 Tablets By Mouth Every 6 hours Contact prescribing physician if questions or concerns Unchanged ascorbic acid (Vitamin C) Every day Contact prescribing physician if questions or concerns Unchanged cholecalciferol 1,250 Microgram Every day Contact prescribing physician if questions or concerns Unchanged hydrochlorothiazide-ir besartan (hydrochlorothiazide-i rbesartan 12.5 mg-150 mg Tab) 1 Tablets By Mouth Every day Contact prescribing physician if questions or concerns Unchanged magnesium glycinate (magnesium glycinate 200 mg oral tablet) 1 Tablets By Mouth Every 24 hours Contact prescribing physician if questions or concerns Unchanged multivitamin (Vitamin B Complex oral capsule) 1 Capsules By Mouth Every day Contact prescribing physician if questions or concerns Unchanged sildenafil (sildenafil 100 mg Tab) 1 Tablets As Directed, May Repeat Contact prescribing physician if questions or concerns Unchanged tizanidine (tiZANidine 4 mg Tab) 1 Tablets By Mouth Every 8 hours Contact prescribing physician if questions or concerns Unchanged zinc sulfate (Zinc) By Mouth Every day Contact prescribing physician if questions or concerns Allergies No Known Allergies Problems Ongoing - Any problem that you are currently receiving treatment for. Arthritis BMI 35.0-35.9,adult BPH with urinary obstruction ED (erectile dysfunction) Gout Head injury Headache Hyperlipemia Hypertension Nocturia OAB (overactive bladder) Post-void dribbling Urge incontinence Urinary frequency Patient Survey You may receive a survey via text or e-mail asking about your office visit. Please share your experience with us by completing your survey. We appreciate your feedback and thank you for choosing us for your care. Education Materials Benign Prostatic Hyperplasia Benign prostatic hyperplasia (BPH) is an enlarged prostate gland that is caused by the normal aging process. The prostate may get bigger as a man gets older. The condition is not caused by cancer. The prostate is a walnut-sized gland that is involved in the production of semen. It is located in front of the rectum and below the bladder. The bladder stores urine. The urethra carries stored urine out of the body. An enlarged prostate can press on the urethra. This can make it harder to pass urine. The buildup of urine in the bladder can cause infection. Back pressure and infection may progress to bladder damage and kidney (renal) failure. What are the causes? This condition is part of the normal aging process. However, not all men develop problems from this condition. If the prostate enlarges away from the urethra, urine flow will not be blocked. If it enlarges toward the urethra and compresses it, there will be problems passing urine. What increases the risk? This condition is more likely to develop in men older than 50 ye (more content not included)... Normal [facility] Urology Office/Clinic Noteon 02-07-2024 Urology Office/Clinic Note Urology Office/Clinic Note Chief Complaint BPH with urinary obstruction HPI Staff 1 yr f/u. Dx: UUI, BPH with obstruction, ED. *Vesicare 10mg qd, Tamsulosin 0.4mg bid, Finasteride 5mg qd, and Sildenafil 100mg prn. PCP checks PSA. Most recent PSA 06/30/23 - 0.38 Dysuria: no Incomplete bladder emptying: no Hematuria: no Frequency: yes Urgency: sometimes but states that this has greatly improved Nocturia: 1-2x Stream: good steady for the most part Leaking: rare Post void dripping: yes Wearing pads/ Depends: no Urge incontinence: pt states that since the last OV he has only had 1 slight episode and was asleep but woke up and was able to finish in the bathroom Stress incontinence: no Incontinence without Sensory Awareness: no Abdominal pain: no Flank pain: no Sexual complaints: no History of Present Illness Tests reviewed: reviewed UA, PSA I have reviewed the previous health record information and history for this patient from Dr. Boyer. I have reviewed and verified the staff HPI to be accurate for this encounter. Review of Systems PHQ Score Initial Depression Screen Score: 0 SCORE ROS - Provider Constitutional: denies weight loss, denies hot flashes. Eyes: denies eye problems. Gastrointestinal: denies nausea, denies vomiting. Cardiovascular: denies chest pain or angina. Integumentary: no dryness Musculoskeletal: denies musculoskeletal symptoms. ENMT: denies otolaryngeal symptoms. Respiratory: no shortness of breath. Heme/Lymph: denies easy bleeding tendency, denies easy bruising tendency. Psychiatric: no confusion, no anxiety. Genitourinary: See HPI. Physical Exam Vitals & Measurements T: 37 ?C(Temporal Artery) HR: 75(Peripheral) RR: 16 BP: 132/82 HT: 73 in HT: 186 cm WT: 131.2 kg WT: 288.64 lb BMI: 37.92 General Appearance: alert, no distress, well nourished, well developed male. Assessment/Plan 1. BPH with urinary obstruction (N40.1: Benign prostatic hyperplasia with lower urinary tract symptoms) PSA (checked by PCP): 05/03/19 - 0.93 05/21/20 - 1.12 05/16/22 - 0.47 (0.94 finasteride) 06/30/23 - 0.38 (0.76 finasteride) Cysto 11/26/20 - Obstructed, bilobar [1]. Trabeculated: high grade [2]. UA today negative for blood and infection. Taking Tamsulosin 0.4 mg bid and Finasteride 5 mg qd. Stream is stable/slightly improved. Mostly feels he empties completely. The only way to improve urination would be to have prostate procedure. Pt is not interested in a procedure at this time. Follow up 1 yr or sooner if needed. Pt understands and agrees with plan. -Cont PSA monitoring with PCP. 2. OAB (overactive bladder) (N32.81: Overactive bladder) Taking Vesicare 10 mg qd. Shares sxs have improved with med. If he is busy, can go 2-3 hours wo voiding during the day. Still has mild urgency but this is improved with vesicare. Baseline poor sleeper. Wakes and goes to the bathroom to prevent accidents. Nocturia average 2x/night. Shares his urination is not perfect but he is happy enough with his sx improvement for the time being. Also manages sxs with lifestyle changes. Limits fluids after dinner. 3. ED (erectile dysfunction) (N52.9: Male erectile dysfunction, unspecified) Sildenafil 100 mg prn. Not voicing any sexual complaints. Follow-up With When Contact Information Mac BOYER MD, URL [facility] [address], [place] [address]- Additional Instructions: 1 yr Patient Education Benign Prostatic Hyperplasia I, Linda George, personally scribed for Dr. Boyer on 02/07/2024 11:32:10. . Documentation recorded by the scribe, Linda George, accurately reflects the services(s) I performed and decisions made by me. Authenticated by Dr. Boyer on 02/07/2024 11:33:54. Problem List/Past Medical History Ongoing Arthritis BMI 35.0-35.9,adult BPH with urinary obstruction ED (erectile dysfunction) Gout Head injury Headache Hyperlipemia Hypertension Nocturia OAB (overactive bladder) Post-void dribbling Urge incontinence Urinary frequency Historical No qualifying data Procedure/Surgical History Urodynamics (04/22/2021), Cystoscopy (11/26/2020), Vasectomy (2009), Appendectomy (1966), Arthroplasty of right hip, Carpal tunnel, Colonoscopy. Medications cholecalciferol, 1250 mcg, Daily finasteride 5 mg Tab, 5 mg= 1 tab(s), Oral, Daily, 3 refills hydrochlorothiazide-ir besartan 12.5 mg-150 mg Tab, 1 tab(s), Oral, Daily magnesium glycinate 200 mg oral tablet, 200 mg= 1 tab(s), Oral, q24hr [place] 325 mg-5 mg oral tablet, 1 tab(s), Oral, q6hr sildenafil 100 mg Tab, 100 mg= 1 tab(s), REGIMEN As Directed tamsulosin 0.4 mg Cap, 0.4 mg= 1 cap(s), Oral, BID, 11 refills tiZANidine 4 mg Tab, 4 mg= 1 tab(s), Oral, q8hr Tylenol Extra Strength 500 mg oral tablet, See Instructions Vesicare 10 mg Tab, 10 mg= 1 tab(s), Oral, Daily, 11 refills Vitamin B Complex oral capsule, 1 c (more content not included)... Normal [facility] Comment on above: Result Comment: Elec tronically Signed By: Mac BOYER MD\.br\Date and Time Signed: 02/07/24 11:34 EDT\.br\Electronically Co-Signed By: Linda George\.br\Date and Time Co-Signed: 02/07/24 11:32 EDT XR Hip - right 3 [facility] Result: August 09, 2013 x-rays AP and frog lateral of the right hip demonstrate a Press-Fit hip replacement in good position alignment without signs of loosening fracture or failure. Impression: Stable appearance of right total hip replacement Amauri Blair D.O. [facility] [employer] Radiology Study observation (narrative) [employer] XR Hip - right 3 ViewsOrdere d By: Charissa Blair on 08-09-2023 Private Practicecar e Work Phone: XR HIP RT 2-3 VIEWS W OR WO PELVISon 07-07-2023 XR HIP RT 2-3 VIEWS W OR WO PELVIS XR HIP RT 2-3 VIEWS W OR WO PELVIS XR HIP RT 2-3 VIEWS W OR WO PELVIS HISTORY: Hip replacement. COMPARISON: None. IMPRESSION: 1. Hip prosthesis noted without visible acute complication Finalized by Price Delcid MD on 07/07/2023 11:06 AM [facility] CNOVon 04-13-2023 CNOV Office Visit (SPSLUH ) LAWSON VELA ([id number]) 1955 M DEF Date Time Provider Department 04/13/23 11:00 AM LAILA PAN SPSLU During your visit today, we recorded the [...] a week. 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 [facility] XR lumbar spine 6V w bending on 12-17-2022 XR lumbar spine 6V w bending [facility] [place] [address] [place] [id number] XRay Report Signed Patient: Lawson Vela MR#: [id number] : 1955 Acct:[id number] Age/Sex: 67 / M ADM Date: 12/17/22 Loc: XD Room: Type: [facility] Attending Dr: Erica MILLER Copies to: ANGELA [...] Cobian Jr., D.O.12/17/2022 3:16 PM Dictation Location: [place] [address] Transcribed By: [facility] 12/17/22 1516 Dictated By: Lenny Cobian Jr, DO 12/17/22 1514 Signed By: 12/17/22 1516 [facility] XR lumbar spine 6V w bending [facility] [employer] Other XR lumbar spine 6V w bending [facility] [employer] Other XR lumbar spine 6V w bending [address] [place] [address] [employer] Other XR lumbar spine 6[place] [address] [employer] Other XR lumbar spine 6V w bending XRay Report [employer] Other XR lumbar spine 6V w bending Signed [employer] Other XR lumbar spine 6V w bending Patient: Lawson Vela MR#: [id number] [employer] Other XR lumbar spine 6V w bending : 1955 Acct:[id number] [employer] Other XR lumbar spine 6V w bending Age/Sex: 67 / M ADM Date: 12/17/22 [employer] Other XR lumbar spine 6V w bending Loc: XD Room: Type: [facility] [employer] Other XR lumbar spine 6V w bending Attending Dr: Erica MILLER [employer] Other XR lumbar spine 6V w bending Copies to: ANGELA Khan [employer] Other XR lumbar spine 6V w bending Ordering Provider: ANGELA Khan [employer] Other XR lumbar spine 6V w bending Date of Service: 12/17/22 [employer] Other XR lumbar spine 6V w bending XR/XR lumbar spine 6V w bending: M54.16 [employer] Other XR lumbar spine 6V w bending LUMBAR SPINE - 6 views Convertro [facility] SGB Other XR lumbar spine 6V w bending CLINICAL HISTORY: Right leg pain and numbness that radiates to toes [employer] Other XR lumbar spine 6V w bending COMPARISON: None [employer] Other XR lumbar spine 6V w bending FINDINGS: Vertebral body heights appear maintained. Diffuse endplate and facet joint degenerative [employer] Other XR lumbar spine 6V w bending changes. Mild diffuse disc space narrowing with relative sparing of L5-S1. No pathological motion [employer] Other XR lumbar spine 6V w bending on flexion or extension views. Limited sidebending. 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 [employer] Other XR lumbar spine 6V w bending Impression dictated by: Lenny Cobian Jr., D.O.12/17/2022 3:16 PM [employer] Other XR lumbar spine 6V w bending Dictation Location: [facility]--15 [employer] Other XR lumbar spine 6V w bending Transcribed By: PWS 12/17/22 [facility] [employer] Other XR lumbar spine 6V w bending Dictated By: Lenny Cobian Jr, DO 12/17/22 [facility] [employer] Other XR lumbar spine 6V w bending Signed By: [employer] Other XR lumbar spine 6V w bending 12/17/22 [facility] [employer] Other XR HIPS JAIRO 3_4V WO PELVISon [...] by: DEVIN KNAPP Date: 2022-11-13 13:[address] [facility] MRI Lumbar Spine w/oon 05-01 MRI [...] by YASMANY ARAYA on 05/01/2022 1217 Normal [facility] XR Orbits for MRIon 04-27-20 XR Orbits for MRI CLINICAL HISTORY: Prescreening for MRI. COMPARISON: None. RESULT: No radiopaque foreign bodies. No acute osseous findings. IMPRESSION: No radiopaque foreign bodies. Report reported and signed by Javad Dickens on 04/27/2022 1540 Normal [facility] Observer XR Spine Lumbar 4+ Views*on 04-06-2022 XR [...] by Lenny Cook on 04/06/2022 1106 Normal [facility] Specialist Vital Signs Date Time Vital Sign Value Performing Clinician Facility 02-07-2024 10:23-0400 Blood Pressure Location Mac BOYER [facility] 02-07-2024 10:23-0400 Body temperature 98.6 [degF] Mac BOYER [facility] 02-07-2024 10:23-0400 Diastolic blood pressure 82 mm[Hg] Mac BOYER [facility] 02-07-2024 10:23-0400 Heart rate 75 /min Mac BOYER [facility] 02-07-2024 10:23-0400 Respiratory rate 16 /min Mac BOYER [facility] 02-07-2024 10:23-0400 Systolic blood pressure 132 mm[Hg] Mac BOYER [facility] 12-17-2022 13:00-0400 Body height 182.88 cm Erica Xiong Other [employer] Other 12-17-2022 13:00-0400 Body mass index (BMI) [Ratio] 38.51 kg/m2 Erica Xiong Other [employer] Other 12-17-2022 13:00-0400 Body weight 128.82 kg Erica Xiong Other [employer] Other 12-17-2022 13:00-0400 Diastolic blood pressure 88 mm[Hg] Erica Xiong Other [facility] [employer] Other 12-17-2022 13:00-0400 Systolic blood pressure 146 mm[Hg] Erica Xiong Other [facility] [employer] Other 06-01-2022 11:29-0500 Blood Pressure Location Macmichelle BOYER [facility] 06-01-2022 11:29-0500 Diastolic blood pressure 76 mm[Hg] Mac BOYER [facility] 06-01-2022 11:29-0500 Heart rate 70 /min Mac BOYER [facility] 06-01-2022 11:29-0500 Respiratory rate 16 /min Mac BOYER [facility] 06-01-2022 11:29-0500 Systolic blood pressure 128 mm[Hg] Mac BOYER [facility] 02-16-2022 10:28-0400 Blood Pressure Location Mac BOYER [facility] 02-16-2022 10:28-0400 Diastolic blood pressure 84 mm[Hg] Mac BOYER [facility] 02-16-2022 10:28-0400 Heart rate 68 /min Mac BOYER [facility] 02-16-2022 10:28-0400 Respiratory rate 16 /min Mac BOYER [facility] 02-16-2022 10:28-0400 Systolic blood pressure 136 mm[Hg] Mac BOYER [facility] Encounters Encounter Date Encounter Type Care Provider Facility Start: 02-05-2025 ambulatory Mac BOYER Facili ty:[facility] Start: 02-17-2024 End: 02-17-2024 ambulatory GEOFFREY MCCLENDON Not Available Start: 02-07-2024 End: 02-07-2024 ambulatory Mac BOYER Facility:[facility] Start: 02-07-2024 End: 02-07-2024 Patient encounter procedure Mac BOYER [facility] Start: 01-27-2024 End: 01-27-2024 ambulatory CHARISSA BLAIR Not Available Start: 01-21-2024 End: 01-21-2024 ambulatory GEOFFREY MCCLENDON Not Available Start: 12-16-2023 End: 12-16-2023 ambulatory CHARISSA BLAIR Not Available Start: 12-13-2023 End: 12-13-2023 ambulatory JOSE HERNÁNDEZ Not Available Start: 11-01-2023 End: 11-01-2023 ambulatory JOSE HERNÁNDEZ Not Available Start: 09-20-2023 End: 09-20-2023 ambulatory JOSE HERNÁNDEZ Not Available Start: 08-27-2023 End: 08-27-2023 ambulatory NAGI PLATA Not Available Start: 08-23-2023 End: 08-23-2023 ambulatory NAGI PLATA Not Available Start: 08-20-2023 End: 08-20-2023 ambulatory JEANNIE MENDIOLA Not Available Start: 08-16-2023 End: 08-16-2023 ambulatory JEANNIE MENDIOLA Not Available Start: 08-13-2023 End: 08-13-2023 ambulatory NAGI PLATA Not Available Start: 08-09-2023 Bamboo flowsheet Jeannie Don ht LOG RAFTER Work Phone: [facility] Start: 08-09-2023 Bamboo flowsheet Jeannie Don ht LOG RAFTER Work Phone: [facility] Start: 08-09-2023 End: 08-09-2023 Postop follow up visit related to original px Jose Barkley Edgar ENGINE LATHE OPERATOR Work Phone: [facility] Comment on above: 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; Status post right hip replacement Start: 08-09-2023 End: 08-09-2023 ambulatory Jeannie Mendiola LOG RAFTER Work Phone: [facility] Comment on above: Right hip pain (Prim billie Dx); Status post total hip replacement, right; Arthritis of right hip Start: 08-06-2023 End: 08-06-2023 ambulatory Jeannie Mendiola LOG RAFTER Work Phone: [facility] Comment on above: Right hip pain (Prim billie Dx); Status post total hip replacement, right; Arthritis of right hip Start: 08-02-2023 Bamboo flowsheet Jeannie finney LOG RAFTER Work Phone: [facility] Start: 08-02-2023 Bamboo flowsheet Jeannie Don ht LOG RAFTER Work Phone: [facility] Start: 08-02-2023 End: 08-02-2023 ambulatory Jeannie Mendiola LOG RAFTER Work Phone: [facility] Comment on [...] Available Start: 07-08-2023 End: 07-08-2023 ambulatory DEVIN [facility] Start: 07-07-2023 End: 07-08-2023 ambulatory [facility] Start: 07-07-2023 End: 07-07-2023 ambulatory [facility] Start: 07-05-2023 End: 07-06-2023 ambulatory [facility] Start: 07-05-2023 Encounter for other preprocedural examination [facility] Start: 06-30-2023 End: 06-30-2023 ambulatory JAVAD DONATO Not Available Start: 06-08-2023 End: 06-08-2023 ambulatory [facility] Not Available Start: 06-07-2023 End: 06-07-2023 ambulatory CLAUDINE HOUSE Not Available Start: 05-17-2023 End: 05-17-2023 ambulatory JAVAD DONATO Not Available Start: 04-13-2023 End: 04-13-2023 ambulatory LAILA PAN Facility:[facility] Start: 04-13-2023 End: 04-13-2023 Patient encounter procedure Laila Pan PA-C Work Phone: [facility] [place] Comment on above: Spinal stenosis, lum bar region with neurogenic claudication (Primary Dx); Bilateral hip joint arthritis Start: 01-28-2023 Chart abstracting Camron Mix MD Work Phone: Neurology Start: 12-17-2022 End: 12-17-2022 Patient encounter procedure II Javad Donato Work Phone: [facility] Work Phone: Start: 12-17-2022 End: 12-17-2022 ambulatory II Javad Donato Work Phone: [facility] Work Phone: Start: 12-17-2022 Encounter for other specified special examinations Erica Xiong [facility] Start: 12-17-2022 Office outpatient ne w 45 minutes Erica Xiong [facility] Start: 11-24-2022 End: 11-25-2022 ambulatory NARENDRANATH LAKSHMIPATHY . Facility:[facility] Start: 11-13-2022 End: 11-14-2022 ambulatory NARENDRANATH LAKSHMIPATHY . Facility:[facility] Start: 11-10-2022 End: 11-11-2022 ambulatory NARENDRANATH LAKSHMIPATHY . Facility:[facility] Start: 10-08-2022 End: 10-09-2022 ambulatory NARENDRANATH LAKSHMIPATHY . Facility:[facility] Start: 09-10-2022 End: 09-11-[address] ANTIONE HAWTHORNE . Facility:[facility] Start: 08-13-2022 Encounter for preprocedural cardiovascular examination DR ANTIONE HAWTHORNE . [facility] Start: 08-11-2022 End: 08-11-[address] ANTIONE [...] encounter procedure Mac BOYER [facility] Start: 05-19-2022 End: 05-20-[address] ANTIONE HAWTHORNE . Facility:[facility] Start: 05-05-2022 End: 05-05-[address] ANTIONE HAWTHORNE . Facility:[facility] Start: 04-28-2022 End: 04-29-[address] ANTIONE HAWTHORNE . Facility:[facility] Start: 04-27-2022 End: 05-14-[address] JAVAD DONATO Facility:[facility] Start: 02-16-2022 End: 02-16-2022 Patient encounter procedure Mac BOYER [facility] Procedures Date Procedure Procedure Detail Performing Clinician Start: 08-09-2023 Radex hip unilateral with pelvis 2-3 views Jose Heránndez NP Work Phone: Start: 12-17-2022 X-ray of lumbar spin e, six views including bending views II Javad Donato Work Phone: Start: 04-22-2021 Urodynamic studies Patr alex BOYER Start: 11-26-2020 Cystoscopy Mac KAPADIA Start: 07-12-2017 Colonoscopy Nagi Magañamavis gs PT Work Phone: Start: 06-28-2009 Vasectomy Mac KAPADIA Start: 06-28-1966 Appendectomy Mac KAPADIA Carpal tunnel syndro me (disorder) Mac BOYER Colonoscopy Mac BOYER Repair of joint of r ight hip Mac BOYER Plan of Treatment Date Care Activity Detail Author Start: 07-12-2027 Screening for malign ant neoplasm of colon [facility] Start: 05-17-2024 Medicare Annual Wellness (AWV) Medicare Annual Wellness (AWV) [facility] Start: 09-20-2023 End: 09-20-2023 Patient encounter procedure 09/20/2023 10:30 AM EDT Office Visit [facility] [address] [place] [id number] Jose Hernández, ENGINE LATHE OPERATOR [address] [place] [address] [facility] Start: 08-27-2023 End: 08-27-2023 ambulatory 08/27/2023 9:30 AM EST Treatment [facility] [address] [place] [address] Nagi Plata, PT [address] [place] [address] [facility] Start: 08-23-2023 End: 08-23-2023 ambulatory 08/23/2023 9:30 AM EST Treatment [facility] [address] [place] [address] Jeannie Mendiola, LOG RAFTER [address] [place] [address] [facility] Start: 08-20-2023 End: 08-20-2023 ambulatory 08/20/2023 9:30 AM EST Treatment [facility] [address] [place] [address] Jeannie Mendiola, LOG RAFTER [address] [place] [address] [facility] Start: 08-16-2023 End: 08-16-2023 ambulatory 08/16/2023 9:30 AM EST Treatment [facility] [address] [place] [phone] Jeannie Mendiola, LOG RAFTER [address] [place] [address] [facility] Start: 08-13-2023 End: 08-13-2023 ambulatory 08/13/2023 9:30 AM EST Treatment [facility] [address] [place] [phone] Nagi Plata, PT [address] [place] [address] [facility] Start: 08-09-2023 End: 08-09-2023 Patient encounter procedure 08/09/2023 1:00 PM EST Office Visit [facility] [address] [place] [phone] Jose Hernández, ENGINE LATHE OPERATOR [address] [place], [place] [id number] [facility] Start: 08-09-2023 End: 08-09-2023 ambulatory [facility] Comment on above: Arrived Start: 08-06-2023 End: 08-06-2023 ambulatory 08/06/2023 9:30 AM EST Treatment [facility] [address] [place] [phone] Jeannie Mendiola, LOG RAFTER [address] [place], [place] [id number] [facility] Start: 08-02-2023 End: 08-02-2023 ambulatory [facility] Comment on above: Arrived Start: 02-26-2023 Influenza vaccination C [facility] Start: 06-28-2022 ADVANCE DIRECTIVE DISCUSSION ADVANCE DIRECTIVE DISCUSSION [facility] Start: 06-28-2022 DEPRESSION ASSESSMENT DEPRESSION ASS ESSMENT [facility] Start: 2019 PNEUMOCOCCAL: 65+ (1 - PCV) PNEUMOCOCCAL: 65+ (1 - PCV) [facility] Start: 07-08-2015 Shingrix Vaccine (2 of 3) Shingrix Vaccine (2 of 3) [facility] Start: 2014 RSV Vaccine (1 - 1-d ose 60+ series) RSV Vaccine (1 - 1-dose 60+ series) [facility] Start: 01-02-2004 SHINGRIX VACCINE (1 of 2) SHINGRIX VACCINE (1 of 2) [facility] Start: 1999 COLOGUARD (FIT-DNA) COLOGUARD (FIT-D NA) [facility] Start: 1999 Colonoscopy COLONOSCOPY [facility] Start: 1999 COLORECTAL CANCER SCREENING COLORECTAL CANCER SCREENING [facility] Start: [address] COLONOGRAPHY [facility] Start: 1999 DIABETES SCREEN DIABETES SCREEN [facility] Start: 1999 Diabetes Screening Diabetes Screenin g [facility] Start: 1999 FECAL OCCULT BLOOD FECAL OCCULT BLOO D [facility] Start: 1999 SIGMOIDOSCOPY SIGMOIDOSCOPY [facility] Start: 1989 Lipid 1996 panel - Serum or Plasma Lipid Screening [facility] Start: 1989 LIPID SCREEN LIPID SCREEN [facility] Start: 1973 Urine microalbumin profile [facility] Start: 01-02-1972 HEPATITIS C SCREENING HEPATITIS C SC REENING [facility] Start: 1954 COVID-19 VACCINE (#1) COVID-19 VACCI NE (#1) [facility] Start: 1954 Abdominal Aortic Aneurysm Screening Abdominal Aortic Aneurysm Screening [facility] Start: 1954 Screening for malign ant neoplasm of colon [facility] End: 05-12-2024 XR HIP BILATERAL 5V PEL/AP/LAT EACH HIP XR HIP BILATERAL 5V PEL/AP/LAT EACH HIP Radiology Routine Bilateral hip joint arthritis 1 Occurrences starting 04/13/2023 until 05/12/2024 [facility] Work Phone: Comment on above: 1 Occurrences starti ng 04/13/2023 until 05/12/2024 [facility] Immunizations Immunization Date Immunization Notes Care Provider Estevan sorto 05-17-2023 Influenza, High-dose Seasonal, Quadrivalent, Preservative Free Nagi Narendra PT Work Phone: [facility] 04-03-2022 influenza, high dose seasonal, preservative-free Nagi Narendra PT Work Phone: [facility] 04-03-2022 Influenza, High-dose Seasonal, Quadrivalent, Preservative Free Nagi Narendra PT Work Phone: [facility] 04-03-2022 influenza virus vaccine, unspecified formulation Laila Pan PA-C Work Phone: [facility] 05-21-2020 influenza virus vaccine, unspecified formulation Mac BOYER [facility] 05-21-2020 influenza, injectabl e, quadrivalent, contains preservative Nagi Narendra PT Work Phone: [facility] 05-21-2020 pneumococcal conjuga te vaccine, 13 valent Nagi Narendra PT Work Phone: [facility] 04-10-2020 influenza virus vaccine, unspecified formulation Macmichelle BOYER [facility] 05-03-2019 influenza, injectabl e, madin sancho canine kidney, preservative free Nagi Narendra PT Work Phone: [facility] 05-03-2019 pneumococcal polysaccharide vaccine, 23 valent Nagi Narendra PT Work Phone: [facility] 05-02-2018 influenza virus vaccine, unspecified formulation Macmichelle BOYER [facility] 05-02-2018 seasonal influenza, intradermal, preservative free Nagi Narendra PT Work Phone: [facility] 06-07-2017 influenza virus vaccine, unspecified formulation Macmichelle BOYER [facility] 06-07-2017 influenza, injectabl e, quadrivalent, contains preservative Nagi Narendra PT Work Phone: [facility] 05-13-2015 zoster vaccine, live Nagi Sp collado PT Work Phone: [facility] NEGATED: Highlighted row has not occurred!08-18-2021 SARS-CoV-2 (COVID-19) Ad26 vaccine, recombinant Mac BOYER [facility] Payers Date Payer Category Payer Self-pay 2021 Unknown [id number] 2018 Medicare [id number] 1959 Medicare [id number] 1959 Unknown [id number] 1954 Unknown [id number] 2.16.84 0.1.080482.3.579.2.593 1954 Unknown [id number] 2.16.84 0.1.853919.3.579.2.593 1954 Unknown [id number] 2.16.84 0.1.882211.3.579.2.593 1954 Unknown [id number] 2.16.84 0.1.394376.3.579.2.593 1954 Unknown [id number] 2.16.84 0.1.923989.3.579.2.593 1954 Unknown [id number] 2.16.84 0.1.837241.3.579.2.593 1954 Unknown [id number] 2.16.84 0.1.905081.3.579.2.593 1954 Unknown [id number] 2.16.84 0.1.050212.3.579.2.593 1954 Unknown [id number] 2.16.84 0.1.382981.3.579.2.593 1954 Unknown [id number] 2.16.84 0.1.591699.3.579.2.593 1954 Unknown [id number] 2.16.84 0.1.332323.3.579.2.593 1954 Unknown [id number] 2.16.84 0.1.662694.3.579.2.593 1954 Unknown [id number] 2.16.84 0.1.011349.3.579.2.593 1954 Unknown [id number] 2.16.84 0.1.443020.3.579.2.593 1954 Unknown [id number] 2.16.84 0.1.768620.3.579.2.593 1954 Unknown [id number] 2.16.84 0.1.421860.3.579.2.1286 1954 Unknown [id number] 2.16.84 0.1.493759.3.579.2.1286 1954 Unknown [id number] 2.16.84 0.1.758373.3.579.2.1286 1954 Unknown [id number] 2.16.84 0.1.549702.3.579.2.1286 1954 Unknown [id number] 2.16.84 0.1.444399.3.579.2.1286 1954 Unknown [id number] 2.16.8 40.1.022400.3.579.2.727 1954 Unknown [id number] 2.16.8 40.1.566581.3.579.2.727 1954 Unknown [id number] 2.16.84 0.1.027227.3.579.2.1259 1954 Unknown [id number] 2.16.84 0.1.249134.3.579.2.1259 1954 Unknown [id number] 2.16.84 0.1.217795.3.579.2.1259 1954 Unknown [id number] 2.16.84 0.1.464936.3.579.2.1259 1954 Unknown [id number] 2.16.84 0.1.337252.3.579.2.125 1954 Unknown [id number] 2.16.84 0.1.518621.3.579.2.1258 1954 Unknown [id number] 2.16.84 0.1.505062.3.579.2.1258 1954 Unknown [id number] 2.16.84 0.1.170198.3.579.2.1258 1954 Unknown [id number] 2.16.84 0.1.914547.3.579.2.1258 1954 Unknown [id number] 2.16.84 0.1.563910.3.579.2.1258 1954 Unknown [id number] 2.16.84 0.1.676445.3.579.2.1258 1954 Unknown [id number] 2.16.84 0.1.555743.3.579.2.1258 1954 Unknown [id number] 2.16.84 0.1.479629.3.579.2.1258 1954 Unknown [id number] 2.16.84 0.1.480031.3.579.2.9 1954 Unknown [id number] 2.16.84 0.1.219114.3.579.2.125 1954 Unknown [id number] 2.16.84 0.1.830411.3.579.2.125 1954 Unknown [id number] 2.16.84 0.1.099209.3.579.2.1258 1954 Unknown [id number] 2.16.84 0.1.331456.3.579.2.1258 1954 Unknown [id number] 2.16.84 0.1.860890.3.579.2.1258 1954 Unknown [id number] 2.16.84 0.1.319851.3.579.2.1259 1954 Unknown [id number] 2.16.84 0.1.011460.3.579.2.9 1954 Unknown [id number] 2.16.840 .1.627807.3.579.2.9 1954 Unknown [id number] 2.16.840 .1.865957.3.579.2.1258 1954 Unknown [id number] 2.16.840 .1.849773.3.579.2.9 1954 Unknown [id number] 2.16.840 .1.441646.3.579.2.9 1954 Unknown [id number] 2.16.840 .1.900710.3.579.2.9 Unknown [id number] 2.16.8 40.1.448645.3.579.2.531 Social History Date Type Detail Facility Start: 05-05-2021 End: 02-07-2024 Ex-smoker (finding) [facility] Start: 04-15-2023 End: 05-10-2023 Male [facility] Start: 1955 Sex Assigned At Male [facility] Tobacco smoking stat [facility] Tobacco smoking consumption unknown [facility] Start: 02-02-2023 Gender identity Identifies as male gender (finding) [facility] Start: 02-02-2023 Sexual orientation Heterosexual (finding) [facility] End: 09-27-1975 History of tobacco use Current smoker [facility] Work Phone: End: 09-27-1975 History of tobacco use Cigarette Smoker [facility] Work Phone: Start: 04-15-2023 End: 05-10-2023 History of Social function [facility] Adult Depression Screening Assessment [address] [facility] Start: 01-11-2023 Tobacco use and exposure Smokeless tobacco non-user [facility] Start: 07-12-2023 End: 08-09-2023 Alcohol intake Current drinker of alcohol (finding) [facility] Within the last year , have you been afraid of your partner or ex-partner? No [facility] Do you belong to any clubs or organizations such as confucianist groups, unions, fraternal or athletic groups, or [...] Healthcare Functional Status Date Assessment Result Facility 02-07-2024 Functional Status N/A [facility] 06-01-2022 Functional Status N/A [facility] 02-16-2022 N/A [facility] Clinical Notes 02-16-2022 to 02-07-2024 Jose Hernández NP - 08/09/2023 1:00 PM ESTPatient Laila Vizcaino PA-C - 04/13/2023 11:00 AM Laila Panda PA-C - 02/12/2023 12:54 PM EDT Note Date & Type Note Facility 02-07-2024 Hospital Discharge instructions Patient Education 02/07/2024 11:16:49 Benign Prostatic Hyperplasia Benign Prostatic Hyperplasia Benign prostatic hyperplasia (BPH) is an enlarged prostate gland that is caused by the normal aging process. The prostate may get bigger as a man gets older. The condition is not caused by cancer. The prostate is a walnut-sized gland that is involved in the production of semen. It is located in front of the rectum and below the bladder. The bladder stores urine. The urethra carries stored urine out of the body. An enlarged prostate can press on the urethra. This can make it harder to pass urine. The buildup of urine in the bladder can cause infection. Back pressure and infection may progress to bladder damage and kidney (renal) failure. What are the causes? This condition is part of the normal aging process. However, not all men develop problems from this condition. If the prostate enlarges away from the urethra, urine flow will not be blocked. If it enlarges toward the urethra and compresses it, there will be problems passing urine. What increases the risk? This condition is more likely to develop in men older than 50 years. What are the signs or [...] urethra. Follow these instructions at home: Take hdrw-lxd-doninkl and prescription medicines only as told by your health care provider. Monitor your symptoms for any changes. Contact your health care provider with any changes. Avoid drinking large amounts of liquid before going to bed or out in public. Avoid or reduce how much caffeine or alcohol you drink. Give yourself time when you urinate. Keep all follow-up visits. This is important. Contact a health care provider if: You have unexplained back pain. Your symptoms do not get better with treatment. You develop side effects from the medicine you are taking. Your urine becomes very dark or has a bad smell. Your lower abdomen becomes distended and you have trouble passing urine. Get help right away if: You have a fever or chills. You suddenly cannot urinate. You feel light-headed or very dizzy, or you faint. There are large amounts of blood or clots in your urine. Your urinary problems become hard to manage. You develop moderate to severe low back or flank pain. The flank is the side of your body between the ribs and the hip. These symptoms may be an emergency. Get help right away. Call 911. Do not wait to see if the symptoms will go away. Do not drive yourself to the hospital. Summary Benign prostatic hyperplasia (BPH) is an enlarged prostate that is caused by the normal aging process. It is not caused by cancer. An enlarged prostate can press on the urethra. This can make it hard to pass urine. This condition is more likely to develop in men older than 50 years. Get help right away if you suddenly cannot urinate. This information is not intended to replace advice given to you by your health care provider. Make sure you discuss any questions you have with your health care provider. Document Revised: 12/31/2021 Document Reviewed: 12/31/2021 [employer] Patient Education 2022 License Acquisitions. Follow Up Care 08/30/2023 12:37:09 With:PAMELA BAER, Mac Stephenson, URL Address: [facility] [address], [facility] [place] [address]- When: Unknown [facility] 02-07-2024 Note Patient Education Urology Benign Prostatic Hyperplasia Benign prostatic hyperplasia (BPH) is an enlarged prostate gland that is caused by the normal aging process. The prostate may get bigger as a man gets older. The condition is not caused by cancer. The prostate is a walnut-sized gland that is involved in the production of semen. It is located in front of the rectum and below the bladder. The bladder stores urine. The urethra carries stored urine out of the body. An enlarged prostate can press on the urethra. This can make it harder to pass urine. The buildup of urine in the bladder can cause infection. Back pressure and infection may progress to bladder damage and kidney (renal) failure. What are the causes? This condition is part of the normal aging process. However, not all men develop problems from this condition. If the prostate enlarges away from the urethra, urine flow will not be blocked. If it enlarges toward the urethra and compresses it, there will be problems passing urine. What increases the risk? This condition is more likely to develop in men older than 50 years. What are the signs or [...] Follow these instructions at home: ? Take hczx-fhc-dcnvmqu and prescription medicines only as told by your health care provider. ? Monitor your symptoms for any changes. Contact your health care provider with any changes. ? Avoid drinking large amounts of liquid before going to bed or out in public. ? Avoid or reduce how much caffeine or alcohol you drink. ? Give yourself time when you urinate. ? Keep all follow-up visits. This is important. Contact a health care provider if: ? You have unexplained back pain. ? Your symptoms do not get better with treatment. ? You develop side effec (more content not included)... [facility] 08-09-2023 History of Present illness Narrative Images [...] develop for requiring urgent evaluation. Jose Hernández HOT ROLLER-BOX SPRING FRAME BUILDER documented in this encounter [facility] 04-13-2023 Note HNO ID: [id number] Author: Laila Pan PA-C Service: ? Author Type: Physician Spring Forger Type: Progress Notes Filed: 04/15/2023 1:53 PM [...] walks or stands for long Intervention/Comfort measure: Medication;Reposition;Relaxation;C old;Exercise;Heat;Massage;Pillow support;Positioning -- Comments: Pain management; steroid injections has been pain manegment but is not seeing any changes in the pain AMBULATORY STATUS: Independent Community Distances ANTIPLATELET OR ANTICOAGULATION STATUS: No PREVIOUS CONSERVATIVE TREATMENTS: See below Aquatic Therapy: 3 months ago which helped, will start it again. 3 days a week. 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 [facility] 04-13-2023 Instructions Laila Pan PA-C - 04/13/2023 [...] which is considered uptake). Laila Pan PA-C [phone] documented in this encounter [facility] 04-13-2023 History of Present illness Narrative Images [...] walks or stands for long Intervention/Comfort measure: Medication;Reposition;Relaxation;C old;Exercise;Heat;Massage;Pillow support;Positioning -- Comments: Pain management; steroid injections has been pain manegment but is not seeing any changes in the pain AMBULATORY STATUS: Independent Community Distances ANTIPLATELET OR ANTICOAGULATION STATUS: No PREVIOUS CONSERVATIVE TREATMENTS: See below Aquatic Therapy: 3 months ago which helped, will start it again. 3 days a week. 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 COMPARISON: 05/01/2022 TECHNIQUE: Multiplanar MR imaging of the lumbar spine was performed. FINDINGS: The spine is visualized from the H22-A9-G9 levels on the sagittal sequences, assuming a [...] narrowing. At the L5-S1 level, there is tkps-pe-fpxjguxd diffuse disc bulging and moderate hypertrophic facet changes, which results in moderate to marked neural foraminal narrowing. Procedure Note CONVERSION, GENERIC - 11/13/2022 [facility]INICAL HISTORY: Low back pain extending into the right lower extremity. COMPARISON: 05/01/2022 TECHNIQUE: Multiplanar MR imaging of the lumbar spine was performed. FINDINGS: The spine is visualized from the H80-G5-Q7 levels on the sagittal sequences, assuming a [...] narrowing. At the L5-S1 level, there is ufsl-tz-uraudfss diffuse disc bulging and moderate hypertrophic facet changes, which results in moderate to marked neural foraminal narrowing. 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 Report reported and signed by James Vizcaino on 10/19/2022 1406 CONVERSION, GENERIC - 11/14/2022 [facility]:[place] 112 110 EXAMINATION: XR HIPS JARIO 3_4V WO PELVIS HISTORY: Bilateral hip joint [...] 8:55 AM PAGER: documented in this encounter [facility] 02-12-2023 Note HNO ID: [id number] Author: Laila Pan PA-C Service: ? Author Type: Physician Spring Forger Type: Progress Notes Filed: 02/12/2023 12:58 PM Note Text: Per Triage: Lawson Vela is a 68 year old male that requests evaluation of lumbar spine. Per review, they have symptoms of LBP into left leg pain. Positive for numbness, difficulty walking and weakness. 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 COMPARISON: 05/01/2022 TECHNIQUE: Multiplanar MR imaging of the lumbar spine was performed. FINDINGS: The spine is visualized from the L01-M0-N2 levels on the sagittal sequences, assuming a [...] narrowing. At the L5-S1 level, there is bxrf-fg-xzfhtwdt diffuse disc bulging and moderate hypertrophic facet changes, which results in moderate to marked neural foraminal narrowing. Procedure Note CONVERSION, GENERIC - 11/13/2022 [facility] CLINICAL HISTORY: Low back pain extending into the right lower extremity. COMPARISON: 05/01/2022 TECHNIQUE: Multiplanar MR imaging of the lumbar spine was performed. FINDINGS: The spine is visualized from the D72-Z2-B1 levels on the sagittal sequences, assuming a [...] narrowing. At the L5-S1 level, there is vbrx-eq-nrseoumw diffuse disc bulging and moderate hypertrophic facet changes, which results in moderate to marked neural foraminal narrowing. 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 Report reported and signed by James Vizcaino on 10/19/2022 140 Disposition: Please schedule with Laila. [facility] 02-12-2023 History of Present illness Narrative Per Triage: Lawson Vela is a 68 year old male that requests evaluation of lumbar spine. Per review, they have symptoms of LBP into left leg pain. Positive for numbness, difficulty walking and weakness. 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 COMPARISON: 05/01/2022 TECHNIQUE: Multiplanar MR imaging of the lumbar spine was performed. FINDINGS: The spine is visualized from the J40-J9-Z3 levels on the sagittal sequences, assuming a [...] narrowing. At the L5-S1 level, there is oilp-uo-vsumbfqi diffuse disc bulging and moderate hypertrophic facet changes, which results in moderate to marked neural foraminal narrowing. Procedure Note CONVERSION, GENERIC - 11/13/2022 [facility] CLINICAL HISTORY: Low back pain extending into the right lower extremity. COMPARISON: 05/01/2022 TECHNIQUE: Multiplanar MR imaging of the lumbar spine was performed. FINDINGS: The spine is visualized from the J54-Y3-D8 levels on the sagittal sequences, assuming a [...] narrowing. At the L5-S1 level, there is vtnr-lp-kbcjjtic diffuse disc bulging and moderate hypertrophic facet changes, which results in moderate to marked neural foraminal narrowing. 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 Report reported and signed by James Vizcaino on 10/19/2022 1406 Disposition: Please schedule with Laila. Patient name: Lawson Vela Are you being referred by a [facility] Provider or Pain Management Provider at [facility]? No If answer is YES please [...] the facility where the MRI/CT/myelogram was completed: [facility] Address: [address] [place] [address] [facility] Address: [address] [id number] MRI/CT/myelogram viewable in Epic: No If not, please provide [phone] to fax in imaging reports for review. [...] physical therapy was completed PT Injections [facility] Address: [address] [place] [address] Have you tried any other kinds of [...] where the surgery was completed: Additional Comments [phone] (Home Phone) documented in this encounter [facility] 01-28-2023 Note HNO ID: [id number] Author: Mookie Lee Service: ? Author Type: ? Type: Progress Notes Filed: 02/12/2023 12:58 PM Note Text: Patient name: Lawson Vela Are you being referred by a [facility] Spine Health Provider or Pain Management Provider at [facility]? No If answer is YES please [...] the facility where the MRI/CT/myelogram was completed: [facility] Address: [address] [place] [address] [facility] Address: [address] [place] [address] MRI/CT/myelogram viewable in Epic: No If not, please provide [phone] to fax in imaging reports for review. [...] physical therapy was completed PT Injections [facility] Address: [address] [place] [address] Have you tried any other kinds of [...] where the surgery was completed: Additional Comments [phone] (Home Phone) [facility] 12-17-2022 Evaluation note Encounter Date [...] prednisone taper. Advised not to take any jdnq-sdh-fgcmmpr ibuprofen while taking prednisone. OARRS reviewed . [...] spine, education on diet, decrease sugar intake. [employer] Other 05-16-2023 NoteCONSULTATION CONSULTATION DATE: 11/10/2022 TO: [...] our patients to inform us about any idbg-yvz-qqprjtn medications or herbal remedies/nutritional supplements/alternative remedies. 2. [...] treatment options with their primary care provider.[facility] [id number] Note CONSULTATION CONSULTATION DATE: 10/08/2022 TO: Javad [...] our patients to inform us about any ovrz-vwj-jnfsxgw medications or herbal remedies/nutritional supplements/alternative remedies. 2. [...] treatment options with their primary care provider.[facility] [id number] Note CONSULTATION CONSULTATION DATE: 09/10/2022 HISTORY: This [...] a tightness in that region. Medications include [place] 5/325 daily, tizanidine 4 mg q.h.s., Mobic [...] in three months' time unless otherwise indicated.[facility] [id number] NoteCONSULTATION PROCEDURE DATE: 09/10/2022 PREOPERATIVE DIAGNOSIS: Bilateral [...] pattern, and patient tolerated the procedure well.[facility] [id number] Note CONSULTATION CONSULTATION DATE: 07/23/2022 HISTORY OF [...] current medications include Mobic 50 mg daily, [place] 5/325 per his PCP daily p.r.n. and [...] up in the office after the procedure.[facility] [id number] NoteCONSULTATION CONSULTATION DATE: 06/25/2022 HISTORY OF PRESENT [...] with a vitamin regimen and he takes [place] 5/325 daily p.r.n., and Mobic 15 mg [...] following his procedure here in the office.[facility] [id number] Hospital Discharge instructions Patient Education 06/01/2022 08:22:09 [...] urethra. Follow these instructions at home: Take xzsl-djo-cimtfli and prescription medicines only as told by [...] 06/14/2006 Document Revised: 05/09/2019 Document Reviewed: 07/19/2017 [employer] Patient Education 2020 License Acquisitions. Follow Up Care 02/16/2022 11:28:21 With:PAMELA BAER, Mac Stephenson, FEROZ Address: [facility] [address] [place] [address]- When: Unknown [facility] 11-22-2022 NoteCONSULTATION CONSULTATION DATE: 05/19/2022 CHIEF [...] The patient currently takes Mobic 15 mg, [place] 5/325 on a p.r.n. basis as prescribed [...] had been performed. CC: Javad Donato M.D.[facility] [id number] NoteCONSULTATION CONSULTATION DATE: 04/28/2022 CHIEF COMPLAINT: Left [...] patient takes two Aleve. He also takes Kirby[place] 5/[address] Donato has prescribed for [...] like to proceed. CC: Javad Donato M.D.[facility] [id number] Hospital Discharge instructions Patient Education 02/16/2022 11:24:07 [...] urethra. Follow these instructions at home: Take vjab-qly-ywgrmoo and prescription medicines only as told by [...] 06/14/2006 Document Revised: 05/09/2019 Document Reviewed: 07/19/2017 [employer] Patient Education 2020 License Acquisitions. 02/16/2022 11:24:04 Calorie Counting for Weight Loss [...] 06/14/2006 Document Revised: 03/03/2019 Document Reviewed: 05/14/2017 [employer] Patient Education 2020 License Acquisitions. Follow Up Care 08/18/2021 12:09:57 With:Mac BOYER MD, URL Address: [address] [place], [place] [id number] Business (1) When:Within 6 Month(s) [facility] evaluation + Plan note Future Appointments Appointment Date:06/01/2022 10:45:00 AM Scheduled Provider:Mac BOYER MD Location:[facility] Appointment Type:URO Office Visit [facility] evaluation + Plan note Future Appointments Appointment Date:11/30/2022 08:45:00 AM Scheduled Provider:Mac BOYER MD Location:[facility] Appointment Type:URO Office Visit [facility] evaluation + Plan note Future Appointments Appointment Date:02/05/2025 10:45:00 AM Scheduled Provider:Mac BOYER MD Location:[facility] Appointment Type:URO Office Visit [facility] evaluation noteNo assessment information available [facility] Work Phone: Evaluation noteNort [employer] Other evaluation note* Diagnosis Spinal stenosis, lumbar region with neurogenic claudication- Primary [facility]* Diagnosis Spinal stenosis, lumbar region with neurogenic claudication- Primary Bilateral hip joint arthritis documented [facility] this [facility]* Diagnosis Right hip pain- Primary Pain in joint, pelvic region and thigh Status post total hip replacement, right documented in this encounter [facility] HealthcareEvaluation note* Diagnosis Right hip pain- Primary Pain in joint, pelvic region and thigh Status post total hip replacement, right Arthritis of right hip documented in this encounter [facility] HealthcareEvaluation note* Diagnosis Right hip pain- Primary Pain in joint, pelvic region and thigh Status post total hip replacement, right Arthritis of right hip Primary osteoarthritis of right hip Status post right hip replacement documented in this encounter [facility] HealthcareEvaluation note* Diagnosis Primary osteoarthritis of right hip Status post right hip replacement Right hip pain- Primary Pain in joint, pelvic region and thigh Status post total hip replacement, right Arthritis of right hip documented in this encounter [facility] HealthcareEvaluation note* Diagnosis Primary osteoarthritis of right hip Status post right hip replacement documented in this encounter [facility] HealthcareHistory general Narrative - Reported* Type Description Date Medical History appendicitis Medical History Arthritis Medical History Hypertension Medical History obesity Medical History pneumonia Medical History prostate cancer Surgical History appendectomy Surgical History carpal tunnel release 2017 Hospitalization History see surg [employer] Other History general Narrative - ReportedNort [employer] Other Hospital course Narrative No data available for this section [facility] note No data available for this section [facility] [employer] reason for referral (narrative)* Diagnostic Procedure Only (Routine) - Pending Review Specialty Diagnoses / Procedures Referred By Contac t Referred To Contact XR IMAGING Diagnoses Bilateral hip joint arthritis Procedures XR HIP BILATERAL 5V PEL/AP/LAT EACH HIP RADEX HIPS BILATERAL WITH PELVIS MINIMUM 5 VIEWS Laila Pan PA-C [address] [place] [address] X[facility] Imaging [address] [address] Referral ID Status Reason Start Date Expiration Date Visits Requested Visits Authorized [id number] Pending Review Auto-Generat ed Referral 3 05/12/2024 1 1 * Consult, Test, Treat (Routine) - Pending Review Specialty Diagnoses / Procedures Referred By Rayray barkley Referred To Contact Orthopedics Diagnoses Bilateral hip joint arthritis Procedures CONSULT TO ORTHOPAEDICS OFFICE/OUTPATIENT NEW HIGH MDM 60-74 MINUTES Laila Pan PA-C [address] [place] [address] Referral ID Status Reason Start Date Expiration Date Visits Requested Visits Authorized [id number] Pending Review PCP Requested Referral 3 04/12/2024 1 1 [facility] for visit Narrativeself referral- low back pain L4-L5 [place] [employer] Other Summary Purpose Family History No Family History Records FoundNo Family History Records FoundNo Family History Records FoundNo Family History Records FoundNo Family History Records FoundNo Family History Records Found No data available for this section No Family History Records FoundNo Family History [...] MD Primary Care Provider Active Erica Xiong ENGINE LATHE OPERATOR-C Attending Provider Active Maintenance And Utilities Supervisor Relationship Specialty Start Date End Date Javad Donato MD [address] [place] [address] PCP - ACO Reach 11/19/22 Javad Donato MD [address] [place] [address] PCP - General Internal Medicine 01/05/23 Maintenance And Utilities Supervisor Relationship Specialty Start Date End Date Javad Donato MD [address] [place] [address] PCP - ACO Reach 11/19/22 Javad Donato MD [address] [place] [address] PCP - General Internal Medicine 01/05/23 Maintenance And Utilities Supervisor Relationship Specialty Start Date End Date Javad Donato MD [address] [place] [address] PCP - ACO Reach 11/19/22 Javad Donato MD [address] [place] [address] PCP - General Internal Medicine 01/05/23 Maintenance And Utilities Supervisor Relationship Specialty Start Date End Date Javad Donato MD [address] [place] [address] PCP - ACO Reach 11/19/22 Javad Donato MD [address] [place] [address] PCP - General Internal Medicine 01/05/23 Maintenance And Utilities Supervisor Relationship Specialty Start Date End Date Javad Donato MD [address] [place] [address] PCP - ACO Reach 11/19/22 Javad Donato MD [address] [place] [address] PCP - General Internal Medicine 01/05/23 Maintenance And Utilities Supervisor Relationship Specialty Start Date End Date Javad Donato MD [address] [place] [address] PCP - ACO Reach 11/19/22 Javad Donato MD [address] [place] [address] PCP - General Internal Medicine 01/05/23 Maintenance And Utilities Supervisor Relationship Specialty Start Date End Date Javad Donato MD [address] [place] [address] PCP - ACO Reach 11/19/22 Javad Donato MD [address] [place] [address] PCP - General Internal Medicine 01/05/23 (unrecognized sect ion and content) No Status Records FoundNo Status Records FoundNo Status Records FoundNo Status Records FoundNo Status Records FoundNo Status Records FoundNo Status Records FoundNo Status Records Found INFORMATION SOURCE (unrecogn ized section and content) DATE CREATED AUTHOR 05/02/2022 [facility] dical Specialist DATE CREATED AUTHOR AUTHOR'S ORGANIZ ATION 12/04/2022 [facility] DATE CREATED AUTHOR AUTHOR'S ORGANIZ ATION 01/13/2023 [facility] [place] [facility] DATE CREATED AUTHOR AUTHOR'S ORGANIZ ATION 02/13/2023 [facility] DATE CREATED AUTHOR AUTHOR'S ORGANIZ ATION 04/17/2023 [facility] DATE CREATED AUTHOR AUTHOR'S ORGANIZ ATION 07/11/2023 [facility] DATE CREATED AUTHOR AUTHOR'S ORGANIZ ATION 02/09/2024 Zelaya Abdulkadir [facility] DATE CREATED AUTHOR AUTHOR'S ORGANIZ ATION 02/19/2024 [facility] dical Specialists EPIC Goals (unrecognized section [...] or prosecute any alcohol or drug abuse patient.[facility] HospitalIn the event this information is protected by the Federal Confidentiality of Alcohol and Drug Abuse Patient Records regulations: The Federal rules restrict any use of the information to criminally investigate or prosecute any alcohol or drug abuse patient.[facility] Reason for Visit (unrecogniz ed section and content) Reason Comments New Patient Specialty Diagnoses / Procedures Referred By Contac t Referred To Contact Physical Therapy Diagnoses Presence of artificial hip joint, right Procedures HI OFFICE/OUTPATIENT NEW HIGH MDM 60 MINUTES Charissa Blair, DO [address] [place] [address] [address] [place] [address] Referral ID Status Reason Start Date Expiration Date Visits Requested Visits Authorized [id number] Authorized Specialty Services Required 07/08/2023 01/04/2024 30 [...] BE BASED ON THE PRIMARY CLINICAL RECORDS. [facility] [employer] provides no warranty or guarantee of the accuracy or completeness of information in this document.
--- NOTE | 2024-03-01 08:02 | P.CN_ITS ---
Consult Note: HPI Data of Consult Patient: known to practice within the last 3 years Requesting Physician: Kath Steiner NP Primary Care Provider: JOHNATHAN LÓPEZ Consult Narrative Reason for consult: f/u Narrative: Lawson Vela a pleasant 69 year old male presents for evaluation of chronic low back, left posterior thigh and buttocks pain. Patient rating pain 2/10 today increasing to 6/10. Pain increased with all activity, improved with sleep and sitting. Patient reporting mild relief from ibuprofen, tizanidine, and norco 5- 325mg. Patient underwent right hip replacement 07/21 and is hoping to have left hip replaced 05/21. Patient previously underwent L5/S1 JEN with >50% improvement greater than 3 months, he noticed significant improvement in pain while standing and walking, as well as performing chores. cc:: CC: Kath Steiner NP Review of Systems ROS Status of ROS 10 or more systems reviewed and unremark able except as noted in history and below Musculoskeletal Reports: back pain, extremity pain and joint pain PFSH PFSH Medical History Neuritis ?M79.2 - Neuralgia and neuritis, unspecified (ICD-10) Left carpal tunnel syndrome ?G56.02 - Carpal tunnel syndrome, left upper limb (ICD-10) Osteoarthritis ?M19.90 - Unspecified osteoarthritis, unspecified site (ICD-10) Low back pain ?M54.50 - Low back pain, unspecified (ICD-10) Obesity ?E66.9 - Obesity, unspecified (ICD-10) Enlarged prostate ?N40.0 - Benign prostatic hyperplasia without lower urinary tract symptoms (ICD-10) Former smoker ?Z87.891 - Personal history of nicotine dependence (ICD-10) Hypertension ?I10 - Essential (primary) hypertension (ICD-10) Surgical History Hx of appendectomy ?Z90.49 - Acquired absence of other specified parts of digestive tract (ICD- 10) Social History Smoking status: Former smoker Meds Home Medications and Allergies Home Medications ?Medication ?Instructions ?Recorded ?Confirmed ?Type ascorbic acid (vitamin C) 500 mg 500 mg PO DAILY 12/10/22 11/30/23 History tablet (C-500) bee pollen 550 mg capsule mg PO .QD 12/10/22 History carvedilol 6.25 mg tablet 6.25 mg PO BID 12/10/22 11/30/23 History cholecalciferol (vitamin D3) 10 10 mcg PO DAILY 12/10/22 11/30/23 History mcg (400 unit) capsule (Vitamin D3) finasteride 5 mg tablet 5 mg PO .QD 12/10/22 11/30/23 History hydrocodone 5 mg-acetaminophen 325 1 tab PO QID PRN pain 12/10/22 11/30/23 History mg tablet mecobalamin (vitamin B12) 1,000 1,000 mcg PO DAILY 12/10/22 11/30/23 History mcg chewable tablet (B12 Active) meloxicam 15 mg tablet 15 mg PO .QD 12/10/22 11/30/23 History multivitamin 1 tab PO DAILY 12/10/22 11/30/23 History sildenafil 100 mg tablet (Viagra) 100 mg PO DAILY PRN sexual activity 12/10/22 11/30/23 History solifenacin 10 mg tablet 10 mg PO DAILY 12/10/22 11/30/23 History tamsulosin 0.4 mg capsule 0.4 mg PO Q24H 12/10/22 11/30/23 History tizanidine 4 mg capsule 4 mg PO .HS PRN muscle spasticity 12/10/22 11/30/23 History vitamin B complex (Complex B-100 1 tab PO DAILY 12/10/22 11/30/23 History tablet,extended release) zinc 50 mg tablet 50 mg PO DAILY 12/10/22 11/30/23 History Allergies Allergy/AdvReac Type Severity Reaction Status Date / Time No Known Drug Allergies Allergy Verified 11/30/23 06:59 Exam Constitutional Documenting provider has reviewed patient's vital signs: yes Common normals: no apparent distress, oriented x3, healthy appearing, alert and well nourished General appearance: cooperative Nutritional appearance: obese HENMT Common normals: normocephalic, hearing grossly normal bilaterally and moist oral mucous membranes Head and scalp: normocephalic Eye Common normals: PERRL Pupil: PERRL Neck & C-Spine Common normals: full ROM General: normal visual inspection Chest Common normals: inspection of chest normal Respiratory Common normals: normal respiratory effort, no retractions and no use of accessory muscles Back & Pelvis Lumbar spine/lower back: ROM limited, pain with ROM, paraspinal muscle ten derness, paraspinal muscle spasm and straight leg raise positive left Sacroiliac joints: SI joints normal Other: decreased sensation to left L4,5 L5,S1 dermatomal pattern strength 5/5 in BLE Extremity Common normals: normal to inspection and full ROM Left lower extremity: hip joint Other: moderate pain with internal and external log roll Neuro Common normals: oriented x3, CN's II-XII intact bilaterally, moves all extremities, no focal motor deficits, no sensory deficits noted and deep tendon reflexes 2+ bilaterally Sensorium/orientation: alert Gait (neuro): antalgic Motor exam: strength 5/5 throughout and no movement abnormalities noted Psych Common normals: mental status grossly normal, thought process normal, cooperative, affect normal, speech normal and activity/motor behavior normal Speech: normal speech Thought process: normal thought process Results Additional Findings Additional findings: If on a controlled substance or opioids, I have checked an [place] report on this patient and there are no aberrancies noted in the prescribing history.??If on a controlled substance or opioid a drug screen was completed and reviewed within the last year, and if there has not been a drug screen completed we ordered one today to monitor higher risk, state monitored pain medication use. As part of providing excellent, safe, comprehensive care, the following was completed at our patient's visit: 1. A medication reconciliation and review to ensure accurate knowledge of current/active medications, including asking our patients to inform us about any [id number] medications or herbal remedies/nutritional supplements/alternative remedies. 2. A review to specifically ensure our patients have had annual screening for screening for depression, screening for tobacco use, and screening for unhealthy alcohol use. For concerning screenings had a discussion with the patient, provided patient education, and recommended follow-up with primary care provider when appropriate. If patient noted with a risk of falling, they received education on strength, gait, and balance training to prevent future risk of falling. Assessment and Plan Assessment and Plan (1) Lumbar stenosis with neurogenic claudication: (2) Lumbar spondylosis: (3) Myofascial pain: Plan L5-S1 JEN under fluoroscopy for lumbar stenosis with NC, previous L5-S1 JEN provided >50% improvement greater than 3 months continue HEP as tolerated continue f/u with orthopedics, upcoming left hip replacement 05/21 f/u 2 weeks after JEN
== END 2024-03-01 07:44 | disposition home or self-care (01) ==
LOC: PM 07:44
PROVIDERS: PCP Internal Medicine; Visit Provider Nurse Practitioner
DX: M48.062 Spinal stenosis, lumbar region with neurogenic claudication (principal); M47.816 Spondylosis without myelopathy or radiculopathy, lumbar region; M79.18 Myalgia, other site
CPT/HCPCS: G0463

== ENCOUNTER 2024-03-14 06:51 | Day surgery (SDC) | payer MEDICARE, OTHER, SELFPAY ==
--- OUTSIDE RECORDS SUMMARY | 2024-03-14 06:54 | XMS_ITS | CCD ---
Author Organization [facility] Care Team Providers Care E Commerce Web Developer Name Role Phone JAVAD DONATO Primary Care Physician [phone] ., DR ANTIONE Fletcher Admitting Unavailable [...] Admitting Unavailable Erica Xiong Attending Unavailable Javad Doanto Primary Care Unavailable Unavailable Primary Care Provider [...] Rose Referring Unavailable JEANNIE MENDIOLA Attending Unavailable CHESTER, CHARISSA Rose Referring Unavailable JEANNIE MENDIOLA Attending Unavailable CHESTER, CHARISSA Rose Referring Unavailable JEANNIE MENDIOLA Attending Unavailable CHESTER, CHARISSA Rose Referring Unavailable HERNÁNDEZ, JOSE Barkley Attending Unavailable HERNÁNDEZ, JOSE Barkley Referring Unavailable NAGI PLATA Attending Unavailable NURY, CHARISSA Rose Referring Unavailable JEANNIE MENDIOLA Attending Unavailable CHESTER, CHARISSA Rose Referring Unavailable JAVAD DONATO Attending Unavailable JEANNIE MENDIOLA Attending Unavailable CHESTER, CHARISSA Rose Referring Unavailable NAGI PLATA Attending Unavailable NURY, CHARISSA Rose Referring Unavailable NAGI PLATA Attending Unavailable CHESTER, CHARISSA Rose Referring Unavailable EDGAR, JOSE Barkley Attending Unavailable HERNÁNDEZ, JOSE Barkley Attending Unavailable HERNÁNDEZ, JOSE Barkley Referring Unavailable HERNÁNDEZ, JOSE Barkley Attending Unavailable HERNÁNDEZ, JOSE Barkley Referring Unavailable CHESTER, CHARISSA Rose Attending Unavailable [facility] Attending Unavailable CHESTER, CHARISSA Rose Attending Unavailable [facility] Unavailable CHESTER, CHARISSA Rose Referring Unavailable GEOFFREY MCCLENDON Attending Unavailable CHESTER, CHARISSA Rose Attending Unavailable CHESTER, CHARISSA Rose Referring Unavailable Allergies Allergy Classification [...] 1 tablet by mouth every six hours Padroni 325 mg-5 mg oral tablet 1 tab(s), [...] Daily, # 90 tab(s), Refills(s) 3, Pharmacy: [facility] [id number], 186, cm, 02/08/23 11:10:00 EDT, Height/Length Dosing, [...] Daily, # 30 tab(s), Refills(s) 11, Pharmacy: [facility] [id number], 186, cm, 02/08/23 11:10:00 EDT, Height/Length Dosing, [...] BID, # 60 cap(s), Refills(s) 11, Pharmacy: [facility] [id number], 186, cm, 02/08/23 11:10:00 EDT, Height/Length Dosing, 129, kg, 02/08/23 11:10:00 EDT, Weight Dosing Start Date: 09/29/23 Status: Ordered Start: 08-21-2022 take 1 capsule by [facility] every twenty-four hours in the morning tamsulosin [...] Strength 500 mg oral tablet) acetaminophen-hydrocod one (Padroni 325 mg-5 mg oral tablet) ascorbic acid [...] [facility] [address] [place] [address]- Medications What How Much When Instructions Unchanged [...] if questions or concerns Unchanged acetaminophen-hydrocod one (Padroni 325 mg-5 mg oral tablet) 1 Tablets [...] 50 ye (more content not included)... Normal [facility] Urology Office/Clinic Noteon 02-07-2024 Urology Office/Clinic Note [...] [facility] [address], [place] [address]- Additional Instructions: 1 yr Patient Education Benign [...] tablet, 200 mg= 1 tab(s), Oral, q24hr Padroni 325 mg-5 mg oral tablet, 1 tab(s), [...] 1 c (more content not included)... Normal [facility] Comment on above: Result Comment: Elec [...] right total hip replacement Amauri Blair D.O. [facility] Radiology Study observation (narrative) [employer] [facility] XR Hip - right 3 ViewsOrdere d By: Charissa Blair on 08-09-2023 [employer] Work Phone: XR HIP RT 2-3 VIEWS W OR WO PELVISon 07-07-2023 XR HIP RT 2-3 VIEWS W OR WO PELVIS XR HIP RT 2-3 VIEWS W OR WO PELVIS XR HIP RT 2-3 VIEWS W OR WO PELVIS HISTORY: Hip replacement. COMPARISON: None. IMPRESSION: 1. Hip prosthesis noted without visible acute complication Finalized by Price Delcid MD on 07/07/2023 11:06 AM [facility] CNOVon 04-13-2023 CNOV Office Visit (SPSLUH ) LAWSON VELA ([id number]) 1955 M DEF Date Time Provider Department [...] a week. 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 [facility] XR lumbar spine 6V w bending on 12-17-2022 XR lumbar spine 6V w bending [facility] Main [place] [address] [place] [address] XRay Report Signed Patient: Lawson Vela MR#: [id number] : 1955 Acct:[id number] Age/Sex: 67 / M ADM Date: 12/17/22 Loc: XD Room: Type: [facility] Attending Dr: Erica MILLER Copies to: [...] Cobian Jr., D.O.12/17/2022 3:16 PM Dictation Location: [place] [address] Transcribed By: [facility] 12/17/22 1516 Dictated By: Lenny Cobian Jr, DO 12/17/22 1514 Signed By: 12/17/22 1516 [facility] XR lumbar spine 6V w bending [facility] Location Labs Other XR lumbar spine 6V w bending [facility] Location Labs Other XR lumbar spine 6V w bending [address] [place] [address] Twelve Other XR lumbar spine 6[place] [address] Twelve Other XR lumbar spine 6V w bending XRay Report Twelve Other XR lumbar spine 6V w bending Signed Twelve Other XR lumbar spine 6V w bending Patient: Lawson Vela MR#: [id number] Twelve Other XR lumbar spine 6V w bending : 1955 Acct:[id number] Twelve Other XR lumbar spine 6V w bending Age/Sex: 67 / M ADM Date: 12/17/22 Twelve Other XR lumbar spine 6V w bending Loc: XD Room: Type: [facility] Twelve Other XR lumbar spine 6V w bending Attending Dr: Erica MILLER Twelve Other XR lumbar spine 6V w bending Copies to: ANGELA Khan Twelve Other XR lumbar spine 6V w bending Ordering Provider: ANGELA Khan Twelve Other XR lumbar spine 6V w bending Date of Service: 12/17/22 Twelve Other XR lumbar spine 6V w bending XR/XR lumbar spine 6V w bending: M54.16 Twelve Other XR lumbar spine 6V w bending LUMBAR SPINE - 6 views [facility] Other XR lumbar spine 6V w bending CLINICAL HISTORY: Right leg pain and numbness that radiates to toes Twelve Other XR lumbar spine 6V w bending COMPARISON: None Twelve Other XR lumbar spine 6V w bending FINDINGS: Vertebral body heights appear maintained. Diffuse endplate and facet joint degenerative Twelve Other XR lumbar spine 6V w bending changes. Mild diffuse disc space narrowing with relative sparing of L5-S1. No pathological motion Twelve Other XR lumbar spine 6V w bending on flexion or extension views. Limited sidebending. Twelve Other XR lumbar spine 6V w bending XR/XR lumbar spine 6V w bending Twelve Other XR lumbar spine 6V w bending IMPRESSION: Twelve Other XR lumbar spine 6V w bending DEGENERATIVE CHANGES OF THE LUMBAR SPINE WITH MILD DIFFUSE DISC SPACE NARROWING WITH RELATIVE Twelve Other XR lumbar spine 6V w bending SPARING OF L5-S1. Twelve Other XR lumbar spine 6V w bending Impression dictated by: Lenny Cobian Jr., D.O.12/17/2022 3:16 PM Twelve Other XR lumbar spine 6V w bending Dictation Location: [facility]--15 Twelve Other XR lumbar spine 6V w bending Transcribed By: PWS 12/17/22 [facility] Twelve Other XR lumbar spine 6V w bending Dictated By: Lenny Cobian Jr, DO 12/17/22 [facility] Twelve Other XR lumbar spine 6V w bending Signed By: Twelve Other XR lumbar spine 6V w bending 12/17/22 [facility] Twelve Other XR HIPS JAIRO 3_4V WO PELVISon [...] by: DEVIN KNAPP Date: 2022-11-13 13:07 Normal [facility] MRI Lumbar Spine w/oon 05-01 MRI Lumbar [...] by YASMANY ARAYA on 05/01/2022 1217 Normal [facility] Tmr Teacher XR Orbits for MRIon 04-27-20 XR Orbits for MRI CLINICAL HISTORY: Prescreening for MRI. COMPARISON: None. RESULT: No radiopaque foreign bodies. No acute osseous findings. IMPRESSION: No radiopaque foreign bodies. Report reported and signed by Javad Dickens on 04/27/2022 1540 Normal [facility] Tmr Teacher XR Spine Lumbar 4+ Views*on 04-06-2022 XR [...] by Lenny Cook on 04/06/2022 1106 Normal [facility] Specialist Vital Signs Date Time Vital Sign Value Performing Clinician Facility 02-07-2024 10:23-0400 Blood Pressure Location Mac BOYER [facility] 02-07-2024 10:23-0400 Body temperature 98.6 [degF] Mac BOYER [facility] 02-07-2024 10:23-0400 Diastolic blood pressure 82 mm[Hg] Mac BOYER [facility] 02-07-2024 10:23-0400 Heart rate 75 /min Mac BOYER [facility] 02-07-2024 10:23-0400 Respiratory rate 16 /min Mac BOYER [facility] 02-07-2024 10:23-0400 Systolic blood pressure 132 mm[Hg] Mac BOYER [facility] 12-17-2022 13:00-0400 Body height 182.88 cm Erica Xiong Other Twelve Other 12-17-2022 13:00-0400 Body mass index (BMI) [Ratio] 38.51 kg/m2 Erica Xiong Other [facility] Other 12-17-2022 13:00-0400 Body weight 128.82 kg Erica Xiong Other [facility] Other 12-17-2022 13:00-0400 Diastolic blood pressure 88 mm[Hg] Erica Xiong Other [facility] Location [facility] Other 12-17-2022 13:00-0400 Systolic blood pressure 146 mm[Hg] Erica Xiong Other [facility] Other 06-01-2022 11:29-0500 Blood Pressure Location Macmichelle BOYER [facility] 06-01-2022 11:29-0500 Diastolic blood pressure 76 mm[Hg] Mac BOYER [facility] 06-01-2022 11:29-0500 Heart rate 70 /min Mac BOYER [facility] 06-01-2022 11:29-0500 Respiratory rate 16 /min Mac BOYER [facility] 06-01-2022 11:29-0500 Systolic blood pressure 128 mm[Hg] Mac BOYER [facility] 02-16-2022 10:28-0400 Blood Pressure Location Mac BOYER [facility] 02-16-2022 10:28-0400 Diastolic blood pressure 84 mm[Hg] Mac BOYER [facility] 02-16-2022 10:28-0400 Heart rate 68 /min Mac BOYER [facility] 02-16-2022 10:28-0400 Respiratory rate 16 /min Mac BOYER [facility] 02-16-2022 10:28-0400 Systolic blood pressure 136 mm[Hg] Mac BOYER [facility] Encounters Encounter Date Encounter Type Care Provider Facility Start: 02-05-2025 ambulatory Mac BOYER Facili ty:[facility] Start: 02-17-2024 End: 02-17-2024 ambulatory GEOFFREY MCCLENDON Not Available Start: 02-07-2024 End: 02-07-2024 ambulatory Mac BOYER Facility: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; Status post right hip replacement Start: 08-09-2023 End: 08-09-2023 ambulatory Jeannie Mendiola DOG RAISER Work Phone: [facility] Comment on above: Right hip pain (Prim billie Dx); Status post total hip replacement, right; Arthritis of right hip Start: 08-06-2023 End: 08-06-2023 ambulatory Jeannie Mendiola DOG RAISER Work Phone: [facility] Comment on above: Right hip pain (Prim billie Dx); Status post total hip replacement, right; Arthritis of right hip Start: 08-02-2023 Bamboo flowsheet Jeannie finney DOG RAISER Work Phone: [facility] Start: 08-02-2023 Bamboo flowsheet Jeannie Don ht DOG RAISER Work Phone: [facility] Start: 08-02-2023 End: 08-02-2023 ambulatory Jeannie Mendiola DOG RAISER Work Phone: [facility] Comment on above: Right hip pain (Prim billie Dx); Status post total hip replacement, right; Arthritis of right hip Start: 07-29-2023 End: 07-29-2023 ambulatory Naig Plata PT Work Phone: [facility] Comment on above: Right hip pain (Prim billie Dx); Status post total hip replacement, right Start: 07-12-2023 End: 07-12-2023 ambulatory JOSE HERNÁNDEZ Not Available Start: 07-08-2023 End: 07-08-2023 ambulatory DEVIN Candelaria [facility] Start: 07-07-2023 End: 07-08-2023 ambulatory [facility] Start: 07-07-2023 End: 07-07-2023 ambulatory [facility] Start: 07-05-2023 End: 07-06-2023 ambulatory [facility] Start: 07-05-2023 Encounter for other preprocedural examination [facility] Start: 06-30-2023 End: 06-30-2023 ambulatory JAVAD DONATO Not Available Start: 06-08-2023 End: 06-08-2023 ambulatory [facility] Not Available Start: 06-07-2023 End: 06-07-2023 ambulatory CLAUDINE HOUSE Not Available Start: 05-17-2023 End: 05-17-2023 ambulatory JAVAD DONATO Not Available Start: 04-13-2023 End: 04-13-2023 ambulatory LAILA PAN Facility:[facility] Start: 04-13-2023 End: 04-13-2023 Patient encounter procedure Laila Pan PA-C Work Phone: [facility] [place] Comment on above: Spinal stenosis, lum bar region with neurogenic claudication (Primary Dx); Bilateral hip joint arthritis Start: 01-28-2023 Chart abstracting Camron Mix MD Work Phone: Neurology Start: 12-17-2022 End: 12-17-2022 Patient encounter procedure II Javad Donato Work Phone: [facility] Work Phone: Start: 12-17-2022 End: 12-17-2022 ambulatory II Javad Donato Work Phone: [facility] Work Phone: Start: 12-17-2022 Encounter for other specified special examinations Erica Xiong [facility] Start: 12-17-2022 Office outpatient ne w 45 minutes Erica Xiong [facility] Start: 11-24-2022 End: 11-25-2022 ambulatory NARENDRANATH LAKSHMIPATHY . Facility:[facility] Start: 11-13-2022 End: 11-14-2022 ambulatory NARENDRANATH LAKSHMIPATHY . Facility:[facility] Start: 11-10-2022 End: 11-11-2022 ambulatory NARENDRANATH LAKSHMIPATHY . Facility:[facility] Start: 10-08-2022 End: 10-09-2022 ambulatory NARENDRANATH LAKSHMIPATHY . Facility:[facility] Start: 09-10-2022 End: 09-11-[address] ANTIONE HAWTHORNE . Facility:[facility] Start: 08-13-2022 Encounter for preprocedural cardiovascular examination DR ANTIONE HAWTHORNE . [facility] Start: 08-11-2022 End: 08-11-[address] ANTIONE [...] encounter procedure Mac BOYER [facility] Start: 05-19-2022 End: 05-20-[address] ANTIONE HAWTHORNE . Facility:[facility] Start: 05-05-2022 End: 05-05-[address] ANTIONE HAWTHORNE . Facility:[facility] Start: 04-28-2022 End: 04-29-[address] ANTIONE HAWTHORNE . Facility:[facility] Start: 04-27-2022 End: 05-14-[address] JAVAD DONATO Facility:[facility] Start: 02-16-2022 End: 02-16-2022 Patient encounter procedure Mac BOYER [facility] Procedures Date Procedure Procedure Detail Performing Clinician [...] 06-28-2009 Vasectomy Mac KAPADIA Start: 06-28-1966 Appendectomy Mca KAPADIA Carpal tunnel syndro me (disorder) Mac [...] Visit [facility] [address] [place] [phone] Jose Hernández, MANAGER ENVIRONMENTAL HEALTH [address] [place] [address] [facility] Start: 08-27-2023 End: 08-27-2023 ambulatory 08/27/2023 9:30 AM EST Treatment [facility] [address] [place] [address] Nagi Plata, PT [address] [place] [address] [facility] Start: 08-23-2023 End: 08-23-2023 ambulatory 08/23/2023 9:30 AM EST Treatment [facility] [address] [place] [address] Jeannie Mendiola, DOG RAISER [address] [place] [address] [facility] Start: 08-20-2023 End: 08-20-2023 ambulatory 08/20/2023 9:30 AM EST Treatment [facility] [address] [place] [address] Jeannie Mendiola, DOG RAISER [address] [place] [address] [facility] Start: 08-16-2023 End: 08-16-2023 ambulatory 08/16/2023 9:30 AM EST Treatment [facility] [address] [place] [phone] Jeannie Mendiola, DOG RAISER [address] [place] [address] [facility] Start: 08-13-2023 End: 08-13-2023 ambulatory 08/13/2023 9:30 AM EST Treatment [facility] [address] [place] [phone] Nagi Plata, PT [address] [place] [address] [facility] Start: 08-09-2023 End: 08-09-2023 Patient encounter procedure 08/09/2023 1:00 PM EST Office Visit [facility] [address] [place] [phone] Jose Hernández, MANAGER ENVIRONMENTAL HEALTH [address] [place], [place] [phone] [facility] Start: 08-09-2023 End: 08-09-2023 ambulatory [facility] Comment on above: Arrived Start: 08-06-2023 End: 08-06-2023 ambulatory 08/06/2023 9:30 AM EST Treatment [facility] [address] [place] [phone] Jeannie Mendiola, DOG RAISER [address] [place], [place] [phone] [facility] Start: 08-02-2023 End: 08-02-2023 ambulatory [facility] Comment on above: Arrived Start: 02-26-2023 Influenza vaccination [facility] Start: 06-28-2022 ADVANCE DIRECTIVE DISCUSSION ADVANCE DIRECTIVE DISCUSSION [facility] Start: 06-28-2022 DEPRESSION ASSESSMENT DEPRESSION ASS ESSMENT [facility] Start: 2019 PNEUMOCOCCAL: 65+ (1 - PCV) PNEUMOCOCCAL: 65+ (1 - PCV) [facility] Start: 07-08-2015 Shingrix Vaccine (2 of 3) Shingrix Vaccine (2 of 3) [facility] Start: 2014 RSV Vaccine (1 - 1-d ose 60+ series) RSV Vaccine (1 - 1-dose 60+ series) [facility] Start: 01-02-2004 SHINGRIX VACCINE (1 of 2) SHINGRIX VACCINE (1 of 2) [facility] Start: 1999 COLOGUARD (FIT-DNA) COLOGUARD (FIT-D NA) [facility] Start: 1999 Colonoscopy COLONOSCOPY [facility] Start: 1999 COLORECTAL CANCER SCREENING COLORECTAL CANCER SCREENING [facility] Start: [address] COLONOGRAPHY [facility] Start: 1999 DIABETES SCREEN DIABETES SCREEN [facility] Start: 1999 Diabetes Screening Diabetes Screenin g [facility] Start: 1999 FECAL OCCULT BLOOD FECAL OCCULT BLOO D [facility] Start: 1999 SIGMOIDOSCOPY SIGMOIDOSCOPY [facility] Start: 1989 Lipid 1996 panel - Serum or Plasma Lipid Screening [facility] Start: 1989 LIPID SCREEN LIPID SCREEN [facility] Start: 1973 Urine microalbumin profile [facility] Start: 01-02-1972 HEPATITIS C SCREENING HEPATITIS C SC REENING [facility] Start: 1954 COVID-19 VACCINE (#1) COVID-19 VACCI NE (#1) [facility] Start: 1954 Abdominal Aortic Aneurysm Screening Abdominal Aortic Aneurysm Screening [facility] Start: 1954 Screening for malign ant neoplasm of colon [facility] End: 05-12-2024 XR HIP BILATERAL 5V PEL/AP/LAT EACH HIP XR HIP BILATERAL 5V PEL/AP/LAT EACH HIP Radiology Routine Bilateral hip joint arthritis 1 Occurrences starting 04/13/2023 until 05/12/2024 [facility] Work Phone: Comment on above: 1 Occurrences starti ng 04/13/2023 until 05/12/2024 [facility] Immunizations Immunization Date Immunization Notes Care Provider Estevan sorto 05-17-2023 Influenza, High-dose Seasonal, Quadrivalent, Preservative Free Nagi Narendra PT Work Phone: [facility] 04-03-2022 influenza, high dose seasonal, preservative-free Nagi Narendra PT Work Phone: [facility] 04-03-2022 Influenza, High-dose Seasonal, Quadrivalent, Preservative Free Nagi Narendra PT Work Phone: [facility] 04-03-2022 influenza virus vaccine, unspecified formulation Laila Pan PA-C Work Phone: [facility] 05-21-2020 influenza virus vaccine, unspecified formulation Mac BOYER [facility] 05-21-2020 influenza, injectabl e, quadrivalent, contains preservative Nagi Narendra PT Work Phone: [facility] 05-21-2020 pneumococcal conjuga te vaccine, 13 valent Nagi Narendra PT Work Phone: [facility] 04-10-2020 influenza virus vaccine, unspecified formulation Macmichelle BOYER [facility] 05-03-2019 influenza, injectabl e, madin sancho canine kidney, preservative free Nagi Narendra PT Work Phone: [facility] 05-03-2019 pneumococcal polysaccharide vaccine, 23 valent Nagi Narendra PT Work Phone: [facility] 05-02-2018 influenza virus vaccine, unspecified formulation Macmichelle BOYER [facility] 05-02-2018 seasonal influenza, intradermal, preservative free Nagi Narendra PT Work Phone: [facility] 06-07-2017 influenza virus vaccine, unspecified formulation Macmichelle BOYER [facility] 06-07-2017 influenza, injectabl e, quadrivalent, contains preservative Nagi Narendra PT Work Phone: [facility] 05-13-2015 zoster vaccine, live Nagi Sp collado PT Work Phone: [facility] NEGATED: Highlighted row has not occurred!08-18-2021 SARS-CoV-2 (COVID-19) Ad26 vaccine, recombinant Mac BOYER [facility] Payers Date Payer Category Payer Self-pay 2021 Unknown [id number] 2018 Medicare [id number] 1959 Medicare [id number] 1959 Unknown [id number] 1954 Unknown [id number] 2.16.84 0.1.760055.3.579.2.593 1954 Unknown [id number] 2.16.84 0.1.542989.3.579.2.593 1954 Unknown [id number] 2.16.84 0.1.911675.3.579.2.593 1954 Unknown [id number] 2.16.84 0.1.497625.3.579.2.593 1954 Unknown [id number] 2.16.84 0.1.178238.3.579.2.593 1954 Unknown [id number] 2.16.84 0.1.852792.3.579.2.593 1954 Unknown [id number] 2.16.84 0.1.936403.3.579.2.593 1954 Unknown [id number] 2.16.84 0.1.392665.3.579.2.593 1954 Unknown [id number] 2.16.84 0.1.961497.3.579.2.593 1954 Unknown [id number] 2.16.84 0.1.394311.3.579.2.593 1954 Unknown [id number] 2.16.84 0.1.273057.3.579.2.593 1954 Unknown [id number] 2.16.84 0.1.745080.3.579.2.593 1954 Unknown [id number] 2.16.84 0.1.735574.3.579.2.593 1954 Unknown [id number] 2.16.84 0.1.985776.3.579.2.593 1954 Unknown [id number] 2.16.84 0.1.752141.3.579.2.593 1954 Unknown [id number] 2.16.84 0.1.333481.3.579.2.1286 1954 Unknown [id number] 2.16.84 0.1.530270.3.579.2.1286 1954 Unknown [id number] 2.16.84 0.1.832230.3.579.2.1286 1954 Unknown [id number] 2.16.84 0.1.857961.3.579.2.1286 1954 Unknown [id number] 2.16.84 0.1.231937.3.579.2.1286 1954 Unknown [id number] 2.16.8 40.1.952093.3.579.2.727 1954 Unknown [id number] 2.16.8 40.1.550397.3.579.2.727 1954 Unknown [id number] 2.16.84 0.1.722973.3.579.2.1259 1954 Unknown [id number] 2.16.84 0.1.695855.3.579.2.1259 1954 Unknown [id number] 2.16.84 0.1.098805.3.579.2.1259 1954 Unknown [id number] 2.16.84 0.1.456496.3.579.2.1259 1954 Unknown [id number] 2.16.84 0.1.861781.3.579.2.125 1954 Unknown [id number] 2.16.84 0.1.115434.3.579.2.1258 1954 Unknown [id number] 2.16.84 0.1.055843.3.579.2.1258 1954 Unknown [id number] 2.16.84 0.1.263131.3.579.2.1258 1954 Unknown [id number] 2.16.84 0.1.489685.3.579.2.1258 1954 Unknown [id number] 2.16.84 0.1.213267.3.579.2.1258 1954 Unknown [id number] 2.16.84 0.1.199166.3.579.2.1258 1954 Unknown [id number] 2.16.84 0.1.414257.3.579.2.1258 1954 Unknown [id number] 2.16.84 0.1.272323.3.579.2.1258 1954 Unknown [id number] 2.16.84 0.1.341226.3.579.2.9 1954 Unknown [id number] 2.16.84 0.1.779944.3.579.2.125 1954 Unknown [id number] 2.16.84 0.1.845317.3.579.2.125 1954 Unknown [id number] 2.16.84 0.1.539968.3.579.2.1258 1954 Unknown [id number] 2.16.84 0.1.848296.3.579.2.1258 1954 Unknown [id number] 2.16.84 0.1.982233.3.579.2.1258 1954 Unknown [id number] 2.16.84 0.1.215332.3.579.2.1259 1954 Unknown [id number] 2.16.84 0.1.556918.3.579.2.9 1954 Unknown [id number] 2.16.840 .1.069284.3.579.2.9 1954 Unknown [id number] 2.16.840 [id number] 1955 Unknown [id number] 1955 Unknown [id number] 1955 Unknown [id number] Unknown [id number] Social History Date Type Detail Facility Start: 05-05-2021 End: 02-07-2024 Ex-smoker (finding) [facility] Start: 04-15-2023 End: 05-10-2023 Male [facility] Start: 1955 Sex Assigned At Male [facility] Tobacco smoking stat [facility] Tobacco smoking consumption unknown [facility] Start: 02-02-2023 Gender identity Identifies as male gender (finding) [facility] Start: 02-02-2023 Sexual orientation Heterosexual (finding) [facility] End: 09-27-1975 History of tobacco use Current smoker [facility] Work Phone: End: 09-27-1975 History of tobacco use Cigarette Smoker [facility] Work Phone: Start: 04-15-2023 End: 05-10-2023 History of Social function [facility] Adult Depression Screening Assessment 1 [facility] Start: 01-11-2023 Tobacco use and exposure Smokeless tobacco non-user [facility] Start: 07-12-2023 End: 08-09-2023 Alcohol intake Current drinker of alcohol (finding) [facility] Within the last year , have you been afraid of your partner or ex-partner? No [facility] Do you belong to any clubs or organizations such as gnosticist groups, unions, fraternal or athletic groups, or [...] 02-07-2024 Functional Status N/A [facility] 06-01-2022 Functional Status N/A [facility] 02-16-2022 N/A [facility] Clinical Notes 02-16-2022 to 02-07-2024 Jose Hernández [...] urethra. Follow these instructions at home: Take vuaf-nfa-rxgpatd and prescription medicines only as told by [...] provider. Document Revised: 12/31/2021 Document Reviewed: 12/31/2021 NextDocs Patient Education 2022 FlightStats. Follow Up Care 08/30/2023 12:37:09 With:PAMELA BAER, Mac Stephenson, URL Address: [facility] [address], [place] [address]- When: Unknown [facility] 02-07-2024 Note Patient Education Urology Benign Prostatic [...] Follow these instructions at home: ? Take badb-juf-kdaxhun and prescription medicines only as told by [...] develop side effec (more content not included)... [facility] 08-09-2023 History of Present illness Narrative Images [...] develop for requiring urgent evaluation. Jose Hernández RN INTERNSHIP-CHEMICAL PROCESS PROJECT ENGINEER documented in this encounter [facility] 04-13-2023 Note HNO ID: [id number] Author: Laila Pan PA-C Service: ? Author Type: Physician Metal Slitter Type: Progress Notes Filed: 04/15/2023 1:53 PM [...] a week. 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 [facility] 04-13-2023 Instructions Laila Pan PA-C - [...] which is considered uptake). Laila Pan PA-C [phone] documented in this encounter [facility] 04-13-2023 History of Present illness Narrative [...] a week. 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 COMPARISON: 05/01/2022 TECHNIQUE: Multiplanar MR imaging of the lumbar spine was performed. FINDINGS: The spine is visualized from the P28-W4-Y3 levels on the sagittal sequences, assuming a [...] narrowing. At the L5-S1 level, there is amkt-aj-kxcyyxym diffuse disc bulging and moderate hypertrophic facet changes, which results in moderate to marked neural foraminal narrowing. Procedure Note CONVERSION, GENERIC - 11/13/2022 PERFORMED AT [facility] LOCATION[facility] CLINICAL HISTORY: Low back pain extending into the right lower extremity. COMPARISON: 05/01/2022 TECHNIQUE: Multiplanar MR imaging of the lumbar spine was performed. FINDINGS: The spine is visualized from the I88-R5-C0 levels on the sagittal sequences, assuming a [...] narrowing. At the L5-S1 level, there is tcaf-us-gbtsjptf diffuse disc bulging and moderate hypertrophic facet changes, which results in moderate to marked neural foraminal narrowing. 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 Report reported and signed by James Vizcaino on 10/19/2022 1406 CONVERSION, GENERIC - 11/14/2022 PERFORMED AT [facility] LOCATION:[place] 112 110 EXAMINATION: XR HIPS JAIRO 3_4V [...] 8:55 AM PAGER: documented in this encounter [facility] 02-12-2023 Note HNO ID: [id number] Author: Laila Pan PA-C Service: ? Author Type: Physician Metal Slitter Type: Progress Notes Filed: 02/12/2023 12:58 PM Note Text: Per Triage: Lawson Vela is a 68 year old male that requests evaluation of lumbar spine. Per review, they have symptoms of LBP into left leg pain. Positive for numbness, difficulty walking and weakness. CMT: PT Hydrocodone child care cook Studies (Reports unless indicated) MRI Lumbar: Narrative PERFORMED AT [facility] LOCATION:[facility] CLINICAL HISTORY: Low back pain extending into the right lower extremity. COMPARISON: 05/01/2022 TECHNIQUE: Multiplanar MR imaging of the lumbar spine was performed. FINDINGS: The spine is visualized from the U81-W6-U0 levels on the sagittal sequences, assuming a [...] narrowing. At the L5-S1 level, there is fenz-rl-euelyqgb diffuse disc bulging and moderate hypertrophic facet changes, which results in moderate to marked neural foraminal narrowing. Procedure Note CONVERSION, GENERIC - 11/13/2022 PERFORMED AT [facility] LOCATION:[facility] CLINICAL HISTORY: Low back pain extending into the right lower extremity. COMPARISON: 05/01/2022 TECHNIQUE: Multiplanar MR imaging of the lumbar spine was performed. FINDINGS: The spine is visualized from the C73-Y9-X2 levels on the sagittal sequences, assuming a [...] narrowing. At the L5-S1 level, there is doks-aw-guoyvhtn diffuse disc bulging and moderate hypertrophic facet changes, which results in moderate to marked neural foraminal narrowing. 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 Report reported and signed by James Vizcaino on 10/19/2022 1402 Disposition: Please schedule with Laila. [facility] 02-12-2023 History of Present illness Narrative Per Triage: Lawson Vela is a 68 year old male that requests evaluation of lumbar spine. Per review, they have symptoms of LBP into left leg pain. Positive for numbness, difficulty walking and weakness. CMT: PT Hydrocodone child care cook Studies (Reports unless indicated) MRI Lumbar: Narrative PERFORMED AT [facility] LOCATION:[facility] CLINICAL HISTORY: Low back pain extending into the right lower extremity. COMPARISON: 05/01/2022 TECHNIQUE: Multiplanar MR imaging of the lumbar spine was performed. FINDINGS: The spine is visualized from the H92-V9-A9 levels on the sagittal sequences, assuming a [...] narrowing. At the L5-S1 level, there is tosq-ef-vmefrzaj diffuse disc bulging and moderate hypertrophic facet changes, which results in moderate to marked neural foraminal narrowing. Procedure Note CONVERSION, GENERIC - 11/13/2022 PERFORMED AT [facility] LOCATION:[facility] CLINICAL HISTORY: Low back pain extending into the right lower extremity. COMPARISON: 05/01/2022 TECHNIQUE: Multiplanar MR imaging of the lumbar spine was performed. FINDINGS: The spine is visualized from the N37-L7-I4 levels on the sagittal sequences, assuming a [...] narrowing. At the L5-S1 level, there is qwcu-dg-jpgoyzlf diffuse disc bulging and moderate hypertrophic facet changes, which results in moderate to marked neural foraminal narrowing. 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 Report reported and signed by James Vizcaino on 10/19/2022 1406 Disposition: Please schedule with Laila. Patient name: Lawson Vela Are you being referred by a Center for Spine Health Provider or Pain Management Provider at [facility]? No If answer is YES please [...] the facility where the MRI/CT/myelogram was completed: [facility] Imaging Address: [address] [place] [address] [facility] Address: [address] [id number] MRI/CT/myelogram viewable in Epic: No If not, please provide [phone] to fax in imaging reports for review. [...] physical therapy was completed PT Injections [facility] Address: [address] [place] [address] Have you tried any other kinds of [...] where the surgery was completed: Additional Comments [phone] (Home Phone) documented in this encounter [facility] 01-28-2023 Note HNO ID: [id number] Author: Mookie Lee Service: ? Author Type: ? Type: Progress Notes Filed: 02/12/2023 12:58 PM Note Text: Patient name: Lawson Vela Are you being referred by a [facility] Spine Health Provider or Pain Management Provider at [facility]? No If answer is YES please [...] the facility where the MRI/CT/myelogram was completed: [facility] Imaging Address: [address] [place] [address] [facility] Address: [address] [place] [address] MRI/CT/myelogram viewable in Epic: No If not, please provide [phone] to fax in imaging reports for review. [...] physical therapy was completed PT Injections [facility] Address: [address] [place] [address] Have you tried any other kinds of [...] where the surgery was completed: Additional Comments [phone] (Home Phone) [facility] 12-17-2022 Evaluation note Encounter Date Diagnosis [...] prednisone taper. Advised not to take any xoez-nhj-zrcfniz ibuprofen while taking prednisone. OARRS reviewed . [...] spine, education on diet, decrease sugar intake. [facility] Other 05-16-2023 NoteCONSULTATION CONSULTATION DATE: 11/10/2022 TO: [...] our patients to inform us about any hagf-vel-tnqgvzs medications or herbal remedies/nutritional supplements/alternative remedies. 2. [...] treatment options with their primary care provider.[facility] [id number] Note CONSULTATION CONSULTATION DATE: 10/08/2022 TO: Javad [...] our patients to inform us about any xlsz-wnx-jgjqrwn medications or herbal remedies/nutritional supplements/alternative remedies. 2. [...] treatment options with their primary care provider.[facility] [id number] Note CONSULTATION CONSULTATION DATE: 09/10/2022 HISTORY: This [...] a tightness in that region. Medications include Padroni 5/325 daily, tizanidine 4 mg q.h.s., Mobic [...] in three months' time unless otherwise indicated.[facility] [id number] NoteCONSULTATION PROCEDURE DATE: 09/10/2022 PREOPERATIVE DIAGNOSIS: Bilateral [...] pattern, and patient tolerated the procedure well.[facility] [id number] Note CONSULTATION CONSULTATION DATE: 07/23/2022 HISTORY OF [...] current medications include Mobic 50 mg daily, Padroni 5/325 per his PCP daily p.r.n. and [...] up in the office after the procedure.[facility] [id number] NoteCONSULTATION CONSULTATION DATE: 06/25/2022 HISTORY OF PRESENT [...] with a vitamin regimen and he takes Padroni 5/325 daily p.r.n., and Mobic 15 mg [...] following his procedure here in the office.[facility] [id number] Hospital Discharge instructions Patient Education 06/01/2022 08:22:09 [...] urethra. Follow these instructions at home: Take xdod-yyy-cienpco and prescription medicines only as told by [...] 06/14/2006 Document Revised: 05/09/2019 Document Reviewed: 07/19/2017 NextDocs Patient Education 2020 FlightStats. Follow Up Care 02/16/2022 11:28:21 With:PAMELA BAER, Mac Stephenson, FEROZ Address: [facility] [address] , [place] [address]- When: Unknown [facility] 11-22-2022 NoteCONSULTATION CONSULTATION DATE: 05/19/2022 CHIEF COMPLAINT: [...] The patient currently takes Mobic 15 mg, Padroni 5/325 on a p.r.n. basis as prescribed [...] had been performed. CC: Javad Donato M.D.[facility] [id number] NoteCONSULTATION CONSULTATION DATE: 04/28/2022 CHIEF COMPLAINT: Left [...] patient takes two Aleve. He also takes Padroni 5/[address] Donato has prescribed for [...] like to proceed. CC: Javad Donato M.D.[facility] [id number] Hospital Discharge instructions Patient Education 02/16/2022 11:24:07 [...] urethra. Follow these instructions at home: Take osrw-hsp-cvvdvdo and prescription medicines only as told by [...] 06/14/2006 Document Revised: 05/09/2019 Document Reviewed: 07/19/2017 NextDocs Patient Education 2020 FlightStats. 02/16/2022 11:24:04 Calorie Counting for Weight Loss [...] 06/14/2006 Document Revised: 03/03/2019 Document Reviewed: 05/14/2017 NextDocs Patient Education 2020 FlightStats. Follow Up Care 08/18/2021 12:09:57 With:Mac BOYER MD, URL Address: [address] [place], [place] [id number] Business (1) When:Within 6 Month(s) [facility] evaluation + Plan note Future Appointments Appointment Date:06/01/2022 10:45:00 AM Scheduled Provider:Mac BOYER MD Location:[facility] Appointment Type:URO Office Visit [facility] evaluation + Plan note Future Appointments Appointment Date:11/30/2022 08:45:00 AM Scheduled Provider:Mac BOYER MD Location:[facility] Appointment Type:URO Office Visit [facility] evaluation + Plan note Future Appointments Appointment Date:02/05/2025 10:45:00 AM Scheduled Provider:Mac BOYER MD Location:[facility] Appointment Type:URO Office Visit [facility] evaluation noteNo assessment information available [facility] Work Phone: Evaluation noteNort Reactful Other evaluation note* Diagnosis Spinal stenosis, lumbar region with neurogenic claudication- Primary [facility] Diagnosis Spinal stenosis, lumbar region with neurogenic claudication- Primary Bilateral hip joint arthritis [facility] Diagnosis Right hip pain- Primary Pain in joint, pelvic region and thigh Status post total hip replacement, right documented in this encounter [facility]* Diagnosis Right hip pain- Primary Pain in joint, pelvic region and thigh Status post total hip replacement, right Arthritis of right hip documented in this encounter [facility]* Diagnosis Right hip pain- Primary Pain in joint, pelvic region and thigh Status post total hip replacement, right Arthritis of right hip Primary osteoarthritis of right hip Status post right hip replacement documented in this encounter [facility] note* Diagnosis Primary osteoarthritis of right hip Status post right hip replacement Right hip pain- Primary Pain in joint, pelvic region and thigh Status post total hip replacement, right Arthritis of right hip documented in this encounter [facility] HealthcareEvaluation note* Diagnosis Primary osteoarthritis of right hip Status post right hip replacement documented in this encounter [facility] HealthcareHistory general Narrative - Reported* Type Description Date Medical History appendicitis Medical History Arthritis Medical History Hypertension Medical History obesity Medical History pneumonia Medical History prostate cancer Surgical History appendectomy Surgical History carpal tunnel release 2017 Hospitalization History see surg [facility] Other History general Narrative - ReportedNort Reactful Other Hospital course Narrative No data available for this section [facility] No data available for this section [facility] [employer] reason for referral (narrative)* Diagnostic Procedure Only (Routine) - Pending Review Specialty Diagnoses / Procedures Referred By Contac t Referred To Contact XR IMAGING Diagnoses Bilateral hip joint arthritis Procedures XR HIP BILATERAL 5V PEL/AP/LAT EACH HIP RADEX HIPS BILATERAL WITH PELVIS MINIMUM 5 VIEWS Laila Pan PA-C [address] [place] [address] X[facility] [address] [place] [address] Referral ID Status Reason Start Date Expiration Date Visits Requested Visits Authorized [id number] Pending Review Auto-Generat ed Referral 3 05/12/2024 1 1 * Consult, Test, Treat (Routine) - Pending Review Specialty Diagnoses / Procedures Referred By Rayray barkley Referred To Contact Orthopedics Diagnoses Bilateral hip joint arthritis Procedures CONSULT TO ORTHOPAEDICS OFFICE/OUTPATIENT NEW HIGH MDM 60-74 MINUTES Laila Pan PA-C [address] [place] [address] Referral ID Status Reason Start Date Expiration Date Visits Requested Visits Authorized [id number] Pending Review PCP Requested Referral 3 04/12/2024 1 1 [facility] for visit Narrativeself referral- low back pain L4-L5 [place] Reactful Other Summary Purpose Family History No Family [...] MD Primary Care Provider Active Erica Xiong MANAGER ENVIRONMENTAL HEALTH-C Attending Provider Active E Commerce Web Developer Relationship Specialty Start Date End Date Javad Donato MD [address] [place] [address] PCP - ACO Reach 11/19/22 Javad Donato MD [address] [place] [address] PCP - General Internal Medicine 01/05/23 E Commerce Web Developer Relationship Specialty Start Date End Date Javad Donato MD [address] [place] [address] PCP - ACO Reach 11/19/22 Javad Donato MD [address] [place] [address] PCP - General Internal Medicine 01/05/23 E Commerce Web Developer Relationship Specialty Start Date End Date Javad Donato MD [address] [place] [address] PCP - ACO Reach 11/19/22 Javad Donato MD [address] [place] [address] PCP - General Internal Medicine 01/05/23 E Commerce Web Developer Relationship Specialty Start Date End Date Javad Donato MD [address] [place] [address] PCP - ACO Reach 11/19/22 Javad Donato MD [address] [place] [address] PCP - General Internal Medicine 01/05/23 E Commerce Web Developer Relationship Specialty Start Date End Date Javad Donato MD [address] [place] [address] PCP - ACO Reach 11/19/22 Javad Donato MD [address] [place] [address] PCP - General Internal Medicine 01/05/23 E Commerce Web Developer Relationship Specialty Start Date End Date Javad Donato MD [address] [place] [address] PCP - ACO Reach 11/19/22 Javad Donato MD [address] [place] [address] PCP - General Internal Medicine 01/05/23 E Commerce Web Developer Relationship Specialty Start Date End Date Javad Donato MD [address] [place] [address] PCP - ACO Reach 11/19/22 Javad Donato MD [address] [place] [address] PCP - General Internal Medicine 01/05/23 (unrecognized sect ion and content) No Status Records FoundNo Status Records FoundNo Status Records FoundNo Status Records FoundNo Status Records FoundNo Status Records FoundNo Status Records FoundNo Status Records Found INFORMATION SOURCE (unrecogn ized section and content) DATE CREATED AUTHOR 05/02/2022 [facility] dical Specialist DATE CREATED AUTHOR AUTHOR'S ORGANIZ ATION 12/04/2022 [facility] DATE CREATED AUTHOR AUTHOR'S ORGANIZ ATION 01/13/2023 [facility] DATE CREATED AUTHOR AUTHOR'S ORGANIZ ATION 02/13/2023 [facility] DATE CREATED AUTHOR AUTHOR'S ORGANIZ ATION 04/17/2023 [facility] DATE CREATED AUTHOR AUTHOR'S ORGANIZ ATION 07/11/2023 [facility] DATE CREATED AUTHOR AUTHOR'S ORGANIZ ATION 02/09/2024 Zelaya Abdulkadir [facility] DATE CREATED AUTHOR AUTHOR'S ORGANIZ ATION 02/19/2024 [facility] dical Specialists EPIC Goals (unrecognized section and content) Goals may be documented in a n alternate section Source Comments (unrecognize d section and content) In the event this informatio n is protected by the Federal Confidentiality of Alcohol and Drug Abuse Patient Records regulations: The Federal rules restrict any use of the information to criminally investigate or prosecute any alcohol or drug abuse patient.[facility] the event this information is protected by the Federal Confidentiality of Alcohol and Drug Abuse Patient Records regulations: The Federal rules restrict any use of the information to criminally investigate or prosecute any alcohol or drug abuse patient.[facility] Reason for Visit (unrecogniz ed section and content) Reason Comments New Patient Specialty Diagnoses / Procedures Referred By Contac t Referred To Contact Physical Therapy Diagnoses Presence of artificial hip joint, right Procedures [place] OFFICE/OUTPATIENT NEW HIGH MDM 60 MINUTES Charissa Blair, DO [address] [place] [address] [address] [place] [address] Referral ID Status Reason Start Date Expiration Date Visits Requested Visits Authorized [id number] Authorized Specialty Services Required 07/08/2023 01/04/2024 30 [...] BE BASED ON THE PRIMARY CLINICAL RECORDS. [facility] [employer] provides no warranty or guarantee of the accuracy or completeness of information in this document.
[2024-03-14 07:20] VITALS: BP 122/69; PULSE 76; TEMP 36.2; O2SAT 97
[2024-03-14 07:30] LABS: Glucometer 119 mg/dL (74-106)
[2024-03-14 08:05] VITALS: BP 137/63; PULSE 84; O2SAT 96
[2024-03-14 08:07] VITALS: BP 142/66; PULSE 84; O2SAT 94
[2024-03-14] MEDS: IOHEXOL 240 MG/ML - 10 ML VIAL 12 MG INJ (08:12)
[2024-03-14] MEDS: 0.9 % SODIUM CHLORIDE 10 ML SYRINGE - SALINE FLUSH 2 ML INJ (08:12)
[2024-03-14] MEDS: LIDOCAINE HCL 2% PF 100 MG/5 ML VIAL 3 ML INJ (08:12)
[2024-03-14] MEDS: METHYLPREDNISOLONE ACETATE 80 MG/ML VIAL INJ (08:12)
[2024-03-14] MEDS: BUPIVACAINE HCL 0.25% PF 25 MG/10 ML VIAL 2 ML INJ (08:12)
--- NOTE | 2024-03-14 08:59 | P.ON_ITS ---
Date of procedure: 03/14/24 Pre-op diagnosis: Lumbar stenosis with neurogenic claudication Post-op diagnosis: same as pre-op Procedure: Lumbar 5/sacral 1 Epidural Steroid Injection Under fluoroscopic guidance Immediate complications none Solution used for injection: Marcaine 0.25% 2mL, 2cc Normal saline, Depo-Medrol 80mg Omnipaque 3 mL Anesthesia local 2% lidocaine up to 4ml Timeout process compliant After informed consent obtained. Patient brought to the procedure room placed in the prone position. Skin overlying the area was prepped and draped in a sterile fashion using betadine. 25 gauge needle used to raise a skin wheel with local anesthetic over the target area identified under fluoroscopy. A 17 gauge Touhy needle Was inserted over the anesthetized area and directed towards the inter- space under fluoroscopic guidance. Epidural space was identified with loss of resistance technique to air. Needle Tip placement confirmed with injection of contrast solution in AP and Lateral views. Steroid solution was then injected. Anesthesia: Local Surgeon: Agnieszka Ayoub Condition: stable
== END 2024-03-14 08:15 | disposition home or self-care (01) ==
LOC: SURGOUT 06:52
PROVIDERS: PCP Internal Medicine; Visit Provider Anesthesiology Pain Medicine
DX: M48.062 Spinal stenosis, lumbar region with neurogenic claudication (principal)
CPT/HCPCS: 36415; 62323; 82948; J0665; J1010; Q9966

== ENCOUNTER 2024-03-23 07:36 | Outpatient (OUT) | payer MEDICARE, OTHER, SELFPAY ==
--- OUTSIDE RECORDS SUMMARY | 2024-03-23 07:37 | XMS_ITS | CCD ---
Author Organization [facility] Care Team Providers Care Needle Polisher Name Role Phone JAVAD DONATO Primary Care Physician HAWTHORNE ., DR ANTIONE Fletcher Admitting Unavailable [...] Unavailable MARIBEL, DR MANN Primary Care Unavailable GEURRA ., MELISSA Consulting Unavailable HAWTHORNE ., DR [...] vailable MARIBEL, DR MANN Primary Care Unavailable AR, DR DEVIN Novak Consulting Unavailable LAKSHMIPATHY ., JUN Admitting Peyton vailable LAKSHMIPATHY ., JUN Consulting Peyton vailable HATWHORNE ., DR ANTIONE Fletcher Admitting Unavailable HAWTHORNE ., DR ANTIONE Fletcher Consulting Unavailable HAWTHORNE ., DR ANTIONE Fletcher Attending Unavailable MARIBEL, DR MANN Primary Care Unavailable HAWTHORNE ., DR ANTIONE Fletcher Attending Unavailable HAWTHORNE ., DR ANTIONE Fletcher Admitting Unavailable HAWTHORNE ., DR ANTIONE Feltcher Consulting Unavailable MARIBEL, DR MANN Primary Care [...] HAWTHORNE ., DR ANTIONE Fletcher Admitting Unavailable HAWTOHRNE ., DR ANTIONE Fletcher Consulting Unavailable MARIBEL, DR MANN Primary Care Unavailable JAVAD SAINI Consulting Unavailable CAMILLE BAILEY Consulting Unavailable Erica Xiong Unavailable SIMONA Donato Primary Care Provider [phone] ANGELA Xiong Attending Provider Erica Xiong Admitting [...] Rose Referring Unavailable JEANNIE MENDIOLA Attending Unavailable [place], CHARISSA Rose Referring Unavailable JEANNIE MENDIOLA Attending Unavailable [place], CHARISSA Rose Referring Unavailable JEANNIE MENDIOLA Attending Unavailable [place], CHARISSA Rose Referring Unavailable HERNÁNDEZ, JOSE Barkley Attending Unavailable HERNÁNDEZ, JOSE Barkley Referring Unavailable NAGI PLATA Attending Unavailable NURY, CHARISSA Rose Referring Unavailable JEANNIE MENDIOLA Attending Unavailable [place], CHARISSA Rose Referring Unavailable JAVAD DONATO Attending Unavailable JEANNIE MENDIOLA Attending Unavailable [place], CHARISSA Rose Referring Unavailable NAGI PLATA Attending Unavailable NURY, CHARISSA Rose Referring Unavailable NAGI PLATA Attending Unavailable [place], CHARISSA Rose Referring Unavailable EDGAR, JOSE Barkley Attending Unavailable HERNÁNDEZ, JOSE Barkley Attending Unavailable HERNÁNDEZ, JOSE Barkley Referring Unavailable HERNÁNDEZ, JOSE Barkley Attending Unavailable HERNÁNDEZ, JOSE Barkley Referring Unavailable [place], CHARISSA Rose Attending Unavailable [facility] Attending Unavailable [place], CHARISSA Rose Attending Unavailable [facility] Attending Unavailable [place], CHARISSA Rose Referring Unavailable GEOFFREY MCCLENDON Attending Unavailable [place], CHARISSA Rose Attending Unavailable [place], CHARISSA Rose Referring Unavailable Allergies Allergy Classification [...] 1 tablet by mouth every six hours Whittier 325 mg-5 mg oral tablet 1 tab(s), [...] Daily, # 90 tab(s), Refills(s) 3, Pharmacy: [facility] [id number], 186, cm, 02/08/23 11:10:00 EDT, Height/Length Dosing, 129, kg, 02/08/23 11:10:00 EDT, Weight Dosing Start Date: 08/30/23 Status: Ordered Start: 06-24-2021 take 1 tablet by yvno th in the morning finasteride (Proscar) 5 [...] Daily, # 30 tab(s), Refills(s) 11, Pharmacy: [facility] [id number], 186, cm, 02/08/23 11:10:00 EDT, Height/Length Dosing, [...] BID, # 60 cap(s), Refills(s) 11, Pharmacy: [facility] [id number], 186, cm, 02/08/23 11:10:00 EDT, Height/Length Dosing, 129, kg, 02/08/23 11:10:00 EDT, Weight Dosing Start Date: 09/29/23 Status: Ordered Start: 08-21-2022 take 1 capsule by [facility] every twenty-four hours in the morning tamsulosin [...] Strength 500 mg oral tablet) acetaminophen-hydrocod one (Whittier 325 mg-5 mg oral tablet) ascorbic acid [...] [facility] [address], [place] [address]- Medications What How Much When Instructions Unchanged [...] if questions or concerns Unchanged acetaminophen-hydrocod one (Whittier 325 mg-5 mg oral tablet) 1 Tablets [...] 50 ye (more content not included)... [facility] Urology Office/Clinic Noteon 02-07-2024 Urology Office/Clinic [...] [facility] [address], [place] [address]- Additional Instructions: 1 yr Patient Education Benign [...] tablet, 200 mg= 1 tab(s), Oral, q24hr Whittier 325 mg-5 mg oral tablet, 1 tab(s), [...] 1 c (more content not included)... [facility] Comment on above: Result Comment: Elec [...] right total hip replacement Amauri Blair D.O. [facility] [employer] Radiology Study observation (narrative) [employer] XR Hip - right 3 ViewsOrdere d By: Charissa Blair on 08-09-2023 [employer] Work Phone: XR HIP RT 2-3 VIEWS W OR WO PELVISon 07-07-2023 XR HIP RT 2-3 VIEWS W OR WO PELVIS XR HIP RT 2-3 VIEWS W OR WO PELVIS XR HIP RT 2-3 VIEWS W OR WO PELVIS HISTORY: Hip replacement. COMPARISON: None. IMPRESSION: 1. Hip prosthesis noted without visible acute complication Finalized by Price Delcid MD on 07/07/2023 11:06 AM [facility] CNOVon 04-13-2023 CNOV Office Visit (SPSLUH ) LAWSON VELA ([id number]) 1955 M DEF Date Time Provider Department [...] a week. Hydrocodone, Meloxicam Zanaflex, Lidocaine patches intensive care specialist Prior to ablation symptoms on left have [...] Self-harm Question 1 (more content not included)... [facility] XR lumbar spine 6V w bending on 12-17-2022 XR lumbar spine 6V w bending [facility] Main [facility] [address] [place] [address] XRay Report Signed Patient: Lawson Vela MR#: [id number] : 1955 Acct:[id number] Age/Sex: 67 / M ADM Date: 12/17/22 Loc: XD Room: Type: [facility] Attending Dr: Erica MILLER Copies to: ANGELA [...] Cobian Jr., D.O.12/17/2022 3:16 PM Dictation Location: [place] [address] Transcribed By: [facility] 12/17/22 1516 Dictated By: Lenny Cobian Jr, DO 12/17/22 1514 Signed By: 12/17/22 1516 [facility] XR lumbar spine 6V w bending [facility] [employer] Other XR lumbar spine 6V w bending [facility] [employer] Other XR lumbar spine 6V w bending [address] [place] [address] [employer] Other XR lumbar spine 6[place] [address] [employer] Other XR lumbar spine 6V w bending XRay Report [employer] Other XR lumbar spine 6V w bending Signed [employer] Other XR lumbar spine 6V w bending Patient: Lawson Vela MR#: [id number] [employer] Other XR lumbar spine 6V w bending : 1955 Acct:[id number] [employer] Other XR lumbar spine 6V w bending Age/Sex: 67 / M ADM Date: 12/17/22 [employer] Other XR lumbar spine 6V w bending Loc: XD Room: Type: [facility] [employer] Other XR lumbar spine 6V w bending Attending Dr: Erica MILLER [employer] Other XR lumbar spine 6V w bending Copies to: ANGELA Khan [employer] Other XR lumbar spine 6V w bending Ordering Provider: ANGELA Khan [employer] Other XR lumbar spine 6V w bending Date of Service: 12/17/22 [employer] Other XR lumbar spine 6V w bending XR/XR lumbar spine 6V w bending: M54.16 [employer] Other XR lumbar spine 6V w bending LUMBAR SPINE - 6 views Mention [employer] [facility] [employer] Other XR lumbar spine 6V w bending CLINICAL HISTORY: Right leg pain and numbness that radiates to toes [employer] Other XR lumbar spine 6V w bending COMPARISON: None [employer] Other XR lumbar spine 6V w bending FINDINGS: Vertebral body heights appear maintained. Diffuse endplate and facet joint degenerative [employer] Other XR lumbar spine 6V w bending changes. Mild diffuse disc space narrowing with relative sparing of L5-S1. No pathological motion [employer] Other XR lumbar spine 6V w bending on flexion or extension views. Limited sidebending. [employer] Other XR lumbar spine 6V w bending XR/XR lumbar spine 6V w bending [employer] Other XR lumbar spine 6V w bending IMPRESSION: [employer] Other XR lumbar spine 6V w bending DEGENERATIVE CHANGES OF THE LUMBAR SPINE WITH MILD DIFFUSE DISC SPACE NARROWING WITH RELATIVE [employer] Other XR lumbar spine 6V w bending SPARING OF L5-S1. [employer] Other XR lumbar spine 6V w bending Impression dictated by: Lenny Cobian Jr., D.O.12/17/2022 3:16 PM [employer] Other XR lumbar spine 6V w bending Dictation Location: [facility]--15 [employer] Other XR lumbar spine 6V w bending Transcribed By: PWS 12/17/22 [facility] [employer] Other XR lumbar spine 6V w bending Dictated By: Lenny Cobian Jr, DO 12/17/22 [facility] [employer] Other XR lumbar spine 6V w bending Signed By: [employer] Other XR lumbar spine 6V w bending 12/17/22 [facility] [employer] Other XR HIPS JAIRO 3_4V WO PELVISon [...] by: DEVIN KNAPP Date: 2022-11-13 13:07 Normal [facility] MRI Lumbar Spine w/oon 05-01 MRI [...] by YASMANY ARAYA on 05/01/2022 1217 Normal [facility] XR Orbits for MRIon 04-27-20 XR Orbits for MRI CLINICAL HISTORY: Prescreening for MRI. COMPARISON: None. RESULT: No radiopaque foreign bodies. No acute osseous findings. IMPRESSION: No radiopaque foreign bodies. Report reported and signed by Javad Dickens on 04/27/2022 1540 Normal [facility] XR Spine Lumbar 4+ Views*on 04-06-2022 XR [...] by Lenny Cook on 04/06/2022 1106 Normal [facility] Specialist Vital Signs Date Time Vital Sign Value Performing Clinician Facility 02-07-2024 10:23-0400 Blood Pressure Location Mac BOYER [facility] 02-07-2024 10:23-0400 Body temperature 98.6 [degF] Mac BOYER [facility] 02-07-2024 10:23-0400 Diastolic blood pressure 82 mm[Hg] Mac BOYER [facility] 02-07-2024 10:23-0400 Heart rate 75 /min Mac BOYER [facility] 02-07-2024 10:23-0400 Respiratory rate 16 /min Mac BOYER [facility] 02-07-2024 10:23-0400 Systolic blood pressure 132 mm[Hg] Mac BOYER [facility] 12-17-2022 13:00-0400 Body height 182.88 cm Erica Xiong Other [employer] Other 12-17-2022 13:00-0400 Body mass index (BMI) [Ratio] 38.51 kg/m2 Erica Xiong Other [employer] Other 12-17-2022 13:00-0400 Body weight 128.82 kg Erica Xiong Other [employer] Other 12-17-2022 13:00-0400 Diastolic blood pressure 88 mm[Hg] Erica Xiong Other [facility] [employer] Other 12-17-2022 13:00-0400 Systolic blood pressure 146 mm[Hg] Erica Xiong Other [facility] [employer] Other 06-01-2022 11:29-0500 Blood Pressure Location Macmichelle BOYER [facility] 06-01-2022 11:29-0500 Diastolic blood pressure 76 mm[Hg] Mac BOYER [facility] 06-01-2022 11:29-0500 Heart rate 70 /min Mac BOYER [facility] 06-01-2022 11:29-0500 Respiratory rate 16 /min Mac BOYER [facility] 06-01-2022 11:29-0500 Systolic blood pressure 128 mm[Hg] Mac BOYER [facility] 02-16-2022 10:28-0400 Blood Pressure Location Mac BOYER [facility] 02-16-2022 10:28-0400 Diastolic blood pressure 84 mm[Hg] Mac BOYER [facility] 02-16-2022 10:28-0400 Heart rate 68 /min Mac BOYER [facility] 02-16-2022 10:28-0400 Respiratory rate 16 /min Mac BOYER [facility] 02-16-2022 10:28-0400 Systolic blood pressure 136 mm[Hg] Mac BOYER [facility] Encounters Encounter Date Encounter Type Care Provider Facility Start: 02-05-2025 ambulatory Mac BOYER Facili ty:[facility] Start: 02-17-2024 End: 02-17-2024 ambulatory GEOFFREY MCCLENDON Not Available Start: 02-07-2024 End: 02-07-2024 ambulatory Mac BOYER Facility:[facility] Start: 02-07-2024 End: 02-07-2024 Patient encounter procedure Mac BOYER [facility] Start: 01-27-2024 End: 01-27-2024 ambulatory CHARISSA [...] Start: 08-09-2023 Bamboo flowsheet Jeannie Don ht VENEER LATHE OPERATOR Work Phone: [facility] Start: 08-09-2023 Bamboo flowsheet Jeannie Don ht VENEER LATHE OPERATOR Work Phone: [facility] Start: 08-09-2023 End: 08-09-2023 Postop follow up visit related to original px Jose Barkley Edgar EDGE TRIMMER Work Phone: [facility] Comment on above: 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; Status post right hip replacement Start: 08-09-2023 End: 08-09-2023 ambulatory Jeannie Mendiola VENEER LATHE OPERATOR Work Phone: [facility] Comment on above: Right hip pain (Prim billie Dx); Status post total hip replacement, right; Arthritis of right hip Start: 08-06-2023 End: 08-06-2023 ambulatory Jeannie Mendiola VENEER LATHE OPERATOR Work Phone: [facility] Comment on above: Right hip pain (Prim billie Dx); Status post total hip replacement, right; Arthritis of right hip Start: 08-02-2023 Bamboo flowsheet Jeannie finney VENEER LATHE OPERATOR Work Phone: [facility] Start: 08-02-2023 Bamboo flowsheet Jeannie Don ht VENEER LATHE OPERATOR Work Phone: [facility] Start: 08-02-2023 End: 08-02-2023 ambulatory Jeannie Mendiola VENEER LATHE OPERATOR Work Phone: [facility] Comment on [...] Start: 07-08-2023 End: 07-08-2023 ambulatory DEVIN Candelaria [facility] Start: 07-07-2023 End: 07-08-2023 ambulatory [facility] Start: 07-07-2023 End: 07-07-2023 ambulatory [facility] Start: 07-05-2023 End: 07-06-2023 ambulatory [facility] Start: 07-05-2023 Encounter for other preprocedural examination [facility] Start: 06-30-2023 End: 06-30-2023 ambulatory JAVAD DONATO Not Available Start: 06-08-2023 End: 06-08-2023 ambulatory [facility] Not Available Start: 06-07-2023 End: 06-07-2023 ambulatory CLAUDINE HOUSE Not Available Start: 05-17-2023 End: 05-17-2023 ambulatory JAVAD DONATO Not Available Start: 04-13-2023 End: 04-13-2023 ambulatory LAILA PAN Facility:[facility] Start: 04-13-2023 End: 04-13-2023 Patient encounter procedure Laila Pan PA-C Work Phone: [facility] Comment on above: Spinal stenosis, lum bar region with neurogenic claudication (Primary Dx); Bilateral hip joint arthritis Start: 01-28-2023 Chart abstracting Camron Mix MD Work Phone: Neurology Start: 12-17-2022 End: 12-17-2022 Patient encounter procedure II Javad Donato Work Phone: [facility] Work Phone: Start: 12-17-2022 End: 12-17-2022 ambulatory II Javad Donato Work Phone: [facility] Work Phone: Start: 12-17-2022 Encounter for other specified special examinations Erica Xiong [facility] Start: 12-17-2022 Office outpatient ne w 45 minutes Erica Xiong [facility] Start: 11-24-2022 End: 11-25-2022 ambulatory NARENDRANATH LAKSHMIPATHY . Facility:[facility] Start: 11-13-2022 End: 11-14-2022 ambulatory NARENDRANATH LAKSHMIPATHY . Facility:[facility] Start: 11-10-2022 End: 11-11-2022 ambulatory NARENDRANATH LAKSHMIPATHY . Facility:[facility] Start: 10-08-2022 End: 10-09-2022 ambulatory NARENDRANATH LAKSHMIPATHY . Facility:[facility] Start: 09-10-2022 End: 09-11-[address] ANTIONE HAWTHORNE . Facility:[facility] Start: 08-13-2022 Encounter for preprocedural cardiovascular examination DR ANTIONE HAWTHORNE . [facility] Start: 08-11-2022 End: 08-11-[address] [...] encounter procedure Mac BOYER [facility] Start: 05-19-2022 End: 05-20-[address] ANTIONE HAWTHORNE . Facility:[facility] Start: 05-05-2022 End: 05-05-[address] ANTIONE HAWTHORNE . Facility:[facility] Start: 04-28-2022 End: 04-29-[address] ANTIONE HAWTHORNE . Facility:[facility] Start: 04-27-2022 End: 05-14-[address] JAVAD DONATO Facility:[facility] Start: 02-16-2022 End: 02-16-2022 Patient encounter procedure Mac BOYER [facility] Procedures Date Procedure Procedure Detail Performing [...] Visit [facility] [address] [place] [phone] Jose Hernández, EDGE TRIMMER [address] [place] [address] [facility] Start: 08-27-2023 End: 08-27-2023 ambulatory 08/27/2023 9:30 AM EST Treatment [facility] [address] [place] [address] Nagi Plata, PT [address] [place] [address] [facility] Start: 08-23-2023 End: 08-23-2023 ambulatory 08/23/2023 9:30 AM EST Treatment [facility] [address] [place] [address] Jeannie Mendiola, VENEER LATHE OPERATOR [address] [place] [address] [facility] Start: 08-20-2023 End: 08-20-2023 ambulatory 08/20/2023 9:30 AM EST Treatment [facility] [address] [place] [address] Jeannie Mendiola, VENEER LATHE OPERATOR [address] [place] [address] [facility] Start: 08-16-2023 End: 08-16-2023 ambulatory 08/16/2023 9:30 AM EST Treatment [facility] [address] [place] [phone] Jeannie Mendiola, VENEER LATHE OPERATOR [address] [place] [address] [facility] Start: 08-13-2023 End: 08-13-2023 ambulatory 08/13/2023 9:30 AM EST Treatment [facility] [address] [place] [phone] Nagi Plata, PT [address] [place] [address] [facility] Start: 08-09-2023 End: 08-09-2023 Patient encounter procedure 08/09/2023 1:00 PM EST Office Visit [facility] [address] [place] [phone] Jose Hernández, EDGE TRIMMER [address] [place], [place] [phone] [facility] Start: 08-09-2023 End: 08-09-2023 ambulatory [facility] Comment on above: Arrived Start: 08-06-2023 End: 08-06-2023 ambulatory 08/06/2023 9:30 AM EST Treatment [facility] [address] [place] [phone] Jeannie Mendiola, VENEER LATHE OPERATOR [address] [place], [place] [id number] [facility] Start: 08-02-2023 End: 08-02-2023 ambulatory [facility] Comment on above: Arrived Start: 02-26-2023 Influenza vaccination C [facility] Start: 06-28-2022 ADVANCE DIRECTIVE DISCUSSION ADVANCE DIRECTIVE DISCUSSION [facility] Start: 06-28-2022 DEPRESSION ASSESSMENT DEPRESSION ASS ESSMENT [facility] Start: 2019 PNEUMOCOCCAL: 65+ (1 - PCV) PNEUMOCOCCAL: 65+ (1 - PCV) [facility] Start: 07-08-2015 Shingrix Vaccine (2 of 3) Shingrix Vaccine (2 of 3) [facility] Start: 2014 RSV Vaccine (1 - 1-d ose 60+ series) RSV Vaccine (1 - 1-dose 60+ series) [facility] Start: 01-02-2004 SHINGRIX VACCINE (1 of 2) SHINGRIX VACCINE (1 of 2) [facility] Start: 1999 COLOGUARD (FIT-DNA) COLOGUARD (FIT-D NA) [facility] Start: 1999 Colonoscopy COLONOSCOPY [facility] Start: 1999 COLORECTAL CANCER SCREENING COLORECTAL CANCER SCREENING [facility] Start: [address] COLONOGRAPHY [facility] Start: 1999 DIABETES SCREEN DIABETES SCREEN [facility] Start: 1999 Diabetes Screening Diabetes Screenin g [facility] Start: 1999 FECAL OCCULT BLOOD FECAL OCCULT BLOO D [facility] Start: 1999 SIGMOIDOSCOPY SIGMOIDOSCOPY [facility] Start: 1989 Lipid 1996 panel - Serum or Plasma Lipid Screening [facility] Start: 1989 LIPID SCREEN LIPID SCREEN [facility] Start: 1973 Urine microalbumin profile [facility] Start: 01-02-1972 HEPATITIS C SCREENING HEPATITIS C SC REENING [facility] Start: 1954 COVID-19 VACCINE (#1) COVID-19 VACCI NE (#1) [facility] Start: 1954 Abdominal Aortic Aneurysm Screening Abdominal Aortic Aneurysm Screening [facility] Start: 1954 Screening for malign ant neoplasm of colon [facility] End: 05-12-2024 XR HIP BILATERAL 5V PEL/AP/LAT EACH HIP XR HIP BILATERAL 5V PEL/AP/LAT EACH HIP Radiology Routine Bilateral hip joint arthritis 1 Occurrences starting 04/13/2023 until 05/12/2024 [facility] Work Phone: Comment on above: 1 Occurrences starti ng 04/13/2023 until 05/12/2024 [facility] Immunizations Immunization Date Immunization Notes Care Provider Estevan sorto 05-17-2023 Influenza, High-dose Seasonal, Quadrivalent, Preservative Free Nagi Narendra PT Work Phone: [facility] 04-03-2022 influenza, high dose seasonal, preservative-free Nagi Narendra PT Work Phone: [facility] 04-03-2022 Influenza, High-dose Seasonal, Quadrivalent, Preservative Free Nagi Narendra PT Work Phone: [facility] 04-03-2022 influenza virus vaccine, unspecified formulation Laila Pan PA-C Work Phone: [facility] 05-21-2020 influenza virus vaccine, unspecified formulation Mac BOYER [facility] 05-21-2020 influenza, injectabl e, quadrivalent, contains preservative Nagi Narendra PT Work Phone: [facility] 05-21-2020 pneumococcal conjuga te vaccine, 13 valent Nagi Narendra PT Work Phone: [facility] 04-10-2020 influenza virus vaccine, unspecified formulation Macmichelle BOYER [facility] 05-03-2019 influenza, injectabl e, madin sancho canine kidney, preservative free Nagi Narendra PT Work Phone: [facility] 05-03-2019 pneumococcal polysaccharide vaccine, 23 valent Nagi Narendra PT Work Phone: [facility] 05-02-2018 influenza virus vaccine, unspecified formulation Mcamichelle BOYER [facility] 05-02-2018 seasonal influenza, intradermal, preservative free Nagi Narendra PT Work Phone: [facility] 06-07-2017 influenza virus vaccine, unspecified formulation Macmichelle BOYER [facility] 06-07-2017 influenza, injectabl e, quadrivalent, contains preservative Nagi Narendra PT Work Phone: [facility] 05-13-2015 zoster vaccine, live Nagi Sp collado PT Work Phone: [facility] NEGATED: Highlighted row has not occurred!08-18-2021 SARS-CoV-2 (COVID-19) Ad26 vaccine, recombinant Mac BOYER [facility] Payers Date Payer Category Payer Self-pay 2021 Unknown [id number] 2018 Medicare [id number] 1959 Medicare [id number] 1959 Unknown [id number] 1954 Unknown [id number] 2.16.84 0.1.294199.3.579.2.593 1954 Unknown [id number] 2.16.84 0.1.305903.3.579.2.593 1954 Unknown [id number] 2.16.84 0.1.989968.3.579.2.593 1954 Unknown [id number] 2.16.84 0.1.591718.3.579.2.593 1954 Unknown [id number] 2.16.84 0.1.423657.3.579.2.593 1954 Unknown [id number] 2.16.84 0.1.221810.3.579.2.593 1954 Unknown [id number] 2.16.84 0.1.499901.3.579.2.593 1954 Unknown [id number] 2.16.84 0.1.900107.3.579.2.593 1954 Unknown [id number] 2.16.84 0.1.306053.3.579.2.593 1954 Unknown [id number] 2.16.84 0.1.229555.3.579.2.593 1954 Unknown [id number] 2.16.84 0.1.562183.3.579.2.593 1954 Unknown [id number] 2.16.84 0.1.566114.3.579.2.593 1954 Unknown [id number] 2.16.84 0.1.684774.3.579.2.593 1954 Unknown [id number] 2.16.84 0.1.105167.3.579.2.593 1954 Unknown [id number] 2.16.84 0.1.971391.3.579.2.593 1954 Unknown [id number] 2.16.84 0.1.787094.3.579.2.1286 1954 Unknown [id number] 2.16.84 0.1.525045.3.579.2.1286 1954 Unknown [id number] 2.16.84 0.1.810822.3.579.2.1286 1954 Unknown [id number] 2.16.84 0.1.740850.3.579.2.1286 1954 Unknown [id number] 2.16.84 0.1.290967.3.579.2.1286 1954 Unknown [id number] 2.16.8 40.1.054155.3.579.2.727 1954 Unknown [id number] 2.16.8 40.1.160553.3.579.2.727 1954 Unknown [id number] 2.16.84 0.1.152408.3.579.2.1259 1954 Unknown [id number] 2.16.84 0.1.119624.3.579.2.1259 1954 Unknown [id number] 2.16.84 0.1.849801.3.579.2.1259 1954 Unknown [id number] 2.16.84 0.1.734786.3.579.2.1259 1954 Unknown [id number] 2.16.84 0.1.521051.3.579.2.125 1955 Unknown [id number] 2.16.84 0.1.691848.3.579.2.1258 1954 Unknown [id number] 2.16.84 0.1.352737.3.579.2.1258 1954 Unknown [id number] 2.16.84 0.1.788196.3.579.2.1258 1954 Unknown [id number] 2.16.84 0.1.874504.3.579.2.1258 1954 Unknown [id number] 2.16.84 0.1.195354.3.579.2.1258 1954 Unknown [id number] 2.16.84 0.1.451018.3.579.2.1258 1954 Unknown [id number] 2.16.84 0.1.513781.3.579.2.1258 1954 Unknown [id number] 2.16.84 0.1.306867.3.579.2.1258 1954 Unknown [id number] 2.16.84 0.1.533124.3.579.2.9 1954 Unknown [id number] 2.16.84 0.1.424903.3.579.2.125 1954 Unknown [id number] 2.16.84 0.1.262805.3.579.2.125 1954 Unknown [id number] 2.16.84 0.1.032662.3.579.2.1258 1954 Unknown [id number] 2.16.84 0.1.212898.3.579.2.1258 1954 Unknown [id number] 2.16.84 0.1.255290.3.579.2.1258 1954 Unknown [id number] 2.16.84 0.1.669258.3.579.2.1259 1954 Unknown [id number] 2.16.84 0.1.496848.3.579.2.9 1954 Unknown [id number] 2.16.840 .1.404145.3.579.2.9 1954 Unknown [id number] 2.16.840 .1.356484.3.579.2.1258 1954 Unknown [id number] 2.16.840 .1.652028.3.579.2.9 1954 Unknown [id number] 2.16.840 .1.852297.3.579.2.9 1954 Unknown [id number] 2.16.840 .1.670707.3.579.2.9 Unknown [id number] 2.16.8 40.1.743027.3.579.2.531 Social History Date Type Detail Facility Start: 05-05-2021 End: 02-07-2024 Ex-smoker (finding) [facility] Start: 04-15-2023 End: 05-10-2023 Male [facility] Start: 1955 Sex Assigned At Male [facility] Tobacco smoking stat [facility] Tobacco smoking consumption unknown [facility] Start: 02-02-2023 Gender identity Identifies as male gender (finding) [facility] Start: 02-02-2023 Sexual orientation Heterosexual (finding) [facility] End: 09-27-1975 History of tobacco use Current smoker [facility] Work Phone: End: 09-27-1975 History of tobacco use Cigarette Smoker [facility] Work Phone: Start: 04-15-2023 End: 05-10-2023 History of Social function [facility] Adult Depression Screening Assessment 1 [facility] Start: 01-11-2023 Tobacco use and exposure Smokeless tobacco non-user [facility] Start: 07-12-2023 End: 08-09-2023 Alcohol intake Current drinker of alcohol (finding) [facility] Within the last year , have you been afraid of your partner or ex-partner? No [facility] Do you belong to any clubs or organizations such as amish groups, unions, fraternal or athletic groups, or [...] 02-07-2024 Functional Status N/A [facility] 06-01-2022 Functional Status N/A [facility] 02-16-2022 N/A [facility] Clinical Notes 02-16-2022 to 02-07-2024 Jose [...] urethra. Follow these instructions at home: Take zchc-agd-ysqjdkz and prescription medicines only as told by [...] provider. Document Revised: 12/31/2021 Document Reviewed: 12/31/2021 [employer] Patient Education 2022 [employer]. Follow Up Care 08/30/2023 12:37:09 With:PAMELA BAER, Mac Stephenson, URL Address: [facility] [address], [place] [address]- When: Unknown [facility] 02-07-2024 Note Patient Education Urology Benign [...] Follow these instructions at home: ? Take uspq-dim-qcsrpwy and prescription medicines only as told by [...] develop side effec (more content not included)... [facility] 08-09-2023 History of Present illness Narrative [...] develop for requiring urgent evaluation. 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 Author Type: Physician Product Safety Test Engineer Type: Progress Notes Filed: 04/15/2023 1:53 PM [...] a week. Hydrocodone, Meloxicam Zanaflex, Lidocaine patches intensive care specialist Prior to ablation symptoms on left have [...] days 2 More (more content not included)... [facility] 04-13-2023 Instructions Laila Pan PA-C [...] which is considered uptake). Laila Pan PA-C [phone] documented in this encounter [facility] 04-13-2023 History of Present illness Narrative [...] a week. Hydrocodone, Meloxicam Zanaflex, Lidocaine patches intensive care specialist Prior to ablation symptoms on left have [...] Lumbar: Narrative PERFORMED AT [facility] LOCATION:[facility] CLINICAL HISTORY: Low back pain extending into the right lower extremity. COMPARISON: 05/01/2022 TECHNIQUE: Multiplanar MR imaging of the lumbar spine was performed. FINDINGS: The spine is visualized from the W82-J6-W2 levels on the sagittal sequences, assuming a [...] narrowing. At the L5-S1 level, there is inru-cb-wengizya diffuse disc bulging and moderate hypertrophic facet changes, which results in moderate to marked neural foraminal narrowing. Procedure Note CONVERSION, GENERIC - 11/13/2022 PERFORMED AT [facility] CLINICAL HISTORY: Low back pain extending into the right lower extremity. COMPARISON: 05/01/2022 TECHNIQUE: Multiplanar MR imaging of the lumbar spine was performed. FINDINGS: The spine is visualized from the I60-H5-U2 levels on the sagittal sequences, assuming a [...] narrowing. At the L5-S1 level, there is jbpl-og-napeuynj diffuse disc bulging and moderate hypertrophic facet changes, which results in moderate to marked neural foraminal narrowing. 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 Report reported and signed by James Vizcaino on 10/19/2022 1406 CONVERSION, GENERIC - 11/14/2022 PERFORMED AT [facility] LOCATION:[facility] [address] EXAMINATION: XR HIPS JAIRO 3_4V [...] 8:55 AM PAGER: documented in this encounter [facility] 02-12-2023 Note HNO ID: [id number] Author: Laila Pan PA-C Service: ? Author Type: Physician Product Safety Test Engineer Type: Progress Notes Filed: 02/12/2023 12:58 PM Note Text: Per Triage: Lawson Vela is a 68 year old male that requests evaluation of lumbar spine. Per review, they have symptoms of LBP into left leg pain. Positive for numbness, difficulty walking and weakness. CMT: PT Hydrocodone intensive care specialist Studies (Reports unless indicated) MRI Lumbar: Narrative PERFORMED AT [facility] LOCATION:[facility] CLINICAL HISTORY: Low back pain extending into the right lower extremity. COMPARISON: 05/01/2022 TECHNIQUE: Multiplanar MR imaging of the lumbar spine was performed. FINDINGS: The spine is visualized from the J71-V9-Z8 levels on the sagittal sequences, assuming a [...] narrowing. At the L5-S1 level, there is xqji-nd-ymrxojoc diffuse disc bulging and moderate hypertrophic facet changes, which results in moderate to marked neural foraminal narrowing. Procedure Note CONVERSION, GENERIC - 11/13/2022 PERFORMED AT [facility] LOCATION:[facility] CLINICAL HISTORY: Low back pain extending into the right lower extremity. COMPARISON: 05/01/2022 TECHNIQUE: Multiplanar MR imaging of the lumbar spine was performed. FINDINGS: The spine is visualized from the C42-H1-G7 levels on the sagittal sequences, assuming a [...] narrowing. At the L5-S1 level, there is mwse-wi-baybhynd diffuse disc bulging and moderate hypertrophic facet changes, which results in moderate to marked neural foraminal narrowing. 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 Report reported and signed by James Vizcaino on 10/19/2022 1405 Disposition: Please schedule with Laila. [facility] 02-12-2023 History of Present illness Narrative Per Triage: Lawson Vela is a 68 year old male that requests evaluation of lumbar spine. Per review, they have symptoms of LBP into left leg pain. Positive for numbness, difficulty walking and weakness. CMT: PT Hydrocodone intensive care specialist Studies (Reports unless indicated) MRI Lumbar: Narrative PERFORMED AT [facility] LOCATION:[facility] CLINICAL HISTORY: Low back pain extending into the right lower extremity. COMPARISON: 05/01/2022 TECHNIQUE: Multiplanar MR imaging of the lumbar spine was performed. FINDINGS: The spine is visualized from the N54-W6-N4 levels on the sagittal sequences, assuming a [...] narrowing. At the L5-S1 level, there is usdm-gn-wswuzzgz diffuse disc bulging and moderate hypertrophic facet changes, which results in moderate to marked neural foraminal narrowing. Procedure Note CONVERSION, GENERIC - 11/13/2022 PERFORMED AT [facility] LOCATION:[facility] CLINICAL HISTORY: Low back pain extending into the right lower extremity. COMPARISON: 05/01/2022 TECHNIQUE: Multiplanar MR imaging of the lumbar spine was performed. FINDINGS: The spine is visualized from the F70-S8-D8 levels on the sagittal sequences, assuming a [...] narrowing. At the L5-S1 level, there is lbky-xi-fueopdfa diffuse disc bulging and moderate hypertrophic facet changes, which results in moderate to marked neural foraminal narrowing. 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 Report reported and signed by James Vizcaino on 10/19/2022 1406 Disposition: Please schedule with Laila. Patient name: Lawson Vela Are you being referred by a [facility] for [facility] Provider or Pain Management Provider at [facility]? No If answer is YES [...] the facility where the MRI/CT/myelogram was completed: [facility] Address: [address] [place] [address] [facility] Address: [address] [id number] MRI/CT/myelogram viewable in Epic: No If not, please provide [phone] to fax in imaging reports for review. [...] completed: Requested provider (First and Last name): Cmaron Monroe Are you interested in a virtual [...] physical therapy was completed PT Injections [facility] Address: [address] [place] [address] Have you tried any other kinds of [...] where the surgery was completed: Additional Comments [phone] (Home Phone) documented in this encounter [facility] 01-28-2023 Note HNO ID: [id number] Author: Mookie Lee Service: ? Author Type: ? Type: Progress Notes Filed: 02/12/2023 12:58 PM Note Text: Patient name: Lawson Vela Are you being referred by a [facility] Spine Health Provider or Pain Management Provider at [facility]? No If answer is YES [...] the facility where the MRI/CT/myelogram was completed: [facility] Address: [address] [place] [address] [facility] Address: [address] [place] [address] MRI/CT/myelogram viewable in Epic: No If not, please provide [phone] to fax in imaging reports for review. [...] physical therapy was completed PT Injections [facility] Address: [address] [place] [address] Have you tried any other kinds of [...] where the surgery was completed: Additional Comments [phone] (Home Phone) [facility] 12-17-2022 Evaluation note Encounter Date Diagnosis [...] prednisone taper. Advised not to take any ebxz-pao-maqworc ibuprofen while taking prednisone. OARRS reviewed . [...] spine, education on diet, decrease sugar intake. [employer] Other 05-16-2023 NoteCONSULTATION CONSULTATION DATE: 11/10/2022 TO: [...] our patients to inform us about any kfos-unp-iylsyjz medications or herbal remedies/nutritional supplements/alternative remedies. 2. [...] treatment options with their primary care provider.[facility] [id number] Note CONSULTATION CONSULTATION DATE: 10/08/2022 TO: Javad [...] our patients to inform us about any eucx-gda-ozjacge medications or herbal remedies/nutritional supplements/alternative remedies. 2. [...] treatment options with their primary care provider.[facility] [id number] Note CONSULTATION CONSULTATION DATE: 09/10/2022 HISTORY: This [...] a tightness in that region. Medications include Whittier 5/325 daily, tizanidine 4 mg q.h.s., Mobic [...] in three months' time unless otherwise indicated.[facility] [id number] NoteCONSULTATION PROCEDURE DATE: 09/10/2022 PREOPERATIVE DIAGNOSIS: Bilateral [...] pattern, and patient tolerated the procedure well.[facility] [id number] Note CONSULTATION CONSULTATION DATE: 07/23/2022 HISTORY OF [...] current medications include Mobic 50 mg daily, Whittier 5/325 per his PCP daily p.r.n. and [...] up in the office after the procedure.[facility] [id number] NoteCONSULTATION CONSULTATION DATE: 06/25/2022 HISTORY OF PRESENT [...] with a vitamin regimen and he takes Whittier 5/325 daily p.r.n., and Mobic 15 mg [...] following his procedure here in the office.[facility] [id number] Hospital Discharge instructions Patient Education 06/01/2022 08:22:09 [...] urethra. Follow these instructions at home: Take huvh-cth-prudinv and prescription medicines only as told by [...] 06/14/2006 Document Revised: 05/09/2019 Document Reviewed: 07/19/2017 [employer] Patient Education 2020 [employer]Edge. Follow Up Care 02/16/2022 11:28:21 With:PAMELA BAER, Mac Stephenson, FEROZ Address: [facility] [address] [place] [address]- When: Unknown [facility] 11-22-2022 NoteCONSULTATION CONSULTATION DATE: 05/19/2022 CHIEF [...] The patient currently takes Mobic 15 mg, Whittier 5/325 on a p.r.n. basis as prescribed [...] had been performed. CC: Javad Donato M.D.[facility] [id number] NoteCONSULTATION CONSULTATION DATE: 04/28/2022 CHIEF COMPLAINT: Left [...] patient takes two Aleve. He also takes Whittier 5/[address] Donato has prescribed for [...] like to proceed. CC: Javad Donato M.D.[facility] [id number] Hospital Discharge instructions Patient Education 02/16/2022 11:24:07 [...] urethra. Follow these instructions at home: Take rbqs-daz-ytfiytm and prescription medicines only as told by [...] 06/14/2006 Document Revised: 05/09/2019 Document Reviewed: 07/19/2017 [employer] Patient Education 2020 [employer]. 02/16/2022 11:24:04 Calorie Counting for Weight Loss [...] 06/14/2006 Document Revised: 03/03/2019 Document Reviewed: 05/14/2017 [employer] Patient Education 2020 [employer]. Follow Up Care 08/18/2021 12:09:57 With:Mac BOYER MD, URL Address: [address] [place], [place] [id number] Business (1) When:Within 6 Month(s) [facility] evaluation + Plan note Future Appointments Appointment Date:06/01/2022 10:45:00 AM Scheduled Provider:Mac BOYER MD Location:[facility] Appointment Type:URO Office Visit [facility] evaluation + Plan note Future Appointments Appointment Date:11/30/2022 08:45:00 AM Scheduled Provider:Mac BOYER MD Location:[facility] Appointment Type:URO Office Visit [facility] evaluation + Plan note Future Appointments Appointment Date:02/05/2025 10:45:00 AM Scheduled Provider:Mac BOYER MD Location:[facility] Appointment Type:URO Office Visit [facility] evaluation noteNo assessment information available [facility] Work Phone: Evaluation noteNort [employer] Other evaluation note* Diagnosis Spinal stenosis, lumbar region with neurogenic claudication- Primary [facility] Diagnosis Spinal stenosis, lumbar region with neurogenic claudication- Primary Bilateral hip joint arthritis [facility]* Diagnosis Right hip pain- Primary Pain in joint, pelvic region and thigh Status post total hip replacement, right documented in this encounter [facility] Healthcare[facility] note* Diagnosis Right hip pain- Primary Pain in joint, pelvic region and thigh Status post total hip replacement, right Arthritis of right hip documented in this encounter [facility] HealthcareEvaluation note* Diagnosis Right hip pain- Primary Pain in joint, pelvic region and thigh Status post total hip replacement, right Arthritis of right hip Primary osteoarthritis of right hip Status post right hip replacement documented in this encounter [facility] HealthcareEvaluation note* Diagnosis Primary osteoarthritis of right hip Status post right hip replacement Right hip pain- Primary Pain in joint, pelvic region and thigh Status post total hip replacement, right Arthritis of right hip documented in this encounter [facility] HealthcareEvaluation note* Diagnosis Primary osteoarthritis of right hip Status post right hip replacement documented in this encounter [facility] HealthcareHistory general Narrative - Reported* Type Description Date Medical History appendicitis Medical History Arthritis Medical History Hypertension Medical History obesity Medical History pneumonia Medical History prostate cancer Surgical History appendectomy Surgical History carpal tunnel release 2017 Hospitalization History see surg [employer] Other History general Narrative - ReportedNort [employer] Other Hospital course Narrative No data available for this section [facility] progress note No data available for this section [facility] [employer] reason for referral (narrative)* Diagnostic Procedure Only (Routine) - Pending Review Specialty Diagnoses / Procedures Referred By Contac t Referred To Contact XR IMAGING Diagnoses Bilateral hip joint arthritis Procedures XR HIP BILATERAL 5V PEL/AP/LAT EACH HIP RADEX HIPS BILATERAL WITH PELVIS MINIMUM 5 VIEWS Laila Pan PA-C [address] [place] [address] Xr Imaging [address] [address] Referral ID Status Reason Start Date Expiration Date Visits Requested Visits Authorized [id number] Pending Review Auto-Generat ed Referral 3 05/12/2024 1 1 * Consult, Test, Treat (Routine) - Pending Review Specialty Diagnoses / Procedures Referred By Rayray barkley Referred To Contact Orthopedics Diagnoses Bilateral hip joint arthritis Procedures CONSULT TO ORTHOPAEDICS OFFICE/OUTPATIENT NEW HIGH MDM 60-74 MINUTES Laila Pan PA-C [address] [place] [address] Referral ID Status Reason Start Date Expiration Date Visits Requested Visits Authorized [id number] Pending Review PCP Requested Referral 3 04/12/2024 1 1 [facility] for visit Narrativeself referral- low back pain L4-L5 [employer] Other Summary Purpose Family History No Family [...] MD Primary Care Provider Active Erica Xiong EDGE TRIMMER-C Attending Provider Active Needle Polisher Relationship Specialty Start Date End Date Javad Donato MD [address] [place] [address] PCP - ACO Reach 11/19/22 Javad Donato MD [address] [place] [address] PCP - General Internal Medicine 01/05/23 Needle Polisher Relationship Specialty Start Date End Date Javad Donato MD [address] [place] [address] PCP - ACO Reach 11/19/22 Javad Donato MD [address] [place] [address] PCP - General Internal Medicine 01/05/23 Needle Polisher Relationship Specialty Start Date End Date Javad Donato MD [address] [place] [address] PCP - ACO Reach 11/19/22 Javad Donato MD [address] [place] [address] PCP - General Internal Medicine 01/05/23 Needle Polisher Relationship Specialty Start Date End Date Javad Donato MD [address] [place] [address] PCP - ACO Reach 11/19/22 Javad Donato MD [address] [place] [address] PCP - General Internal Medicine 01/05/23 Needle Polisher Relationship Specialty Start Date End Date Javad Donato MD [address] [place] [address] PCP - ACO Reach 11/19/22 Javad Donato MD [address] [place] [address] PCP - General Internal Medicine 01/05/23 Needle Polisher Relationship Specialty Start Date End Date Javad Donato MD [address] [place] [address] PCP - ACO Reach 11/19/22 Javad Donato MD [address] [place] [address] PCP - General Internal Medicine 01/05/23 Needle Polisher Relationship Specialty Start Date End Date Javad Donato MD [address] [place] [address] PCP - ACO Reach 11/19/22 Javad Donato MD [address] [place] [address] PCP - General Internal Medicine 01/05/23 (unrecognized sect ion and content) No Status Records FoundNo Status Records FoundNo Status Records FoundNo Status Records FoundNo Status Records FoundNo Status Records FoundNo Status Records FoundNo Status Records Found INFORMATION SOURCE (unrecogn ized section and content) DATE CREATED AUTHOR 05/02/2022 [facility] dical Specialist DATE CREATED AUTHOR AUTHOR'S ORGANIZ ATION 12/04/2022 [facility] DATE CREATED AUTHOR AUTHOR'S ORGANIZ ATION 01/13/2023 [facility] DATE CREATED AUTHOR AUTHOR'S ORGANIZ ATION 02/13/2023 [facility] DATE CREATED AUTHOR AUTHOR'S ORGANIZ ATION 04/17/2023 [facility] DATE CREATED AUTHOR AUTHOR'S ORGANIZ ATION 07/11/2023 [facility] DATE CREATED AUTHOR AUTHOR'S ORGANIZ ATION 02/09/2024 Zelaya Abdulkadir [facility] DATE CREATED AUTHOR AUTHOR'S ORGANIZ ATION 02/19/2024 [facility] dical Specialists EPIC Goals (unrecognized section and content) Goals may be documented in a n alternate section Source Comments (unrecognize d section and content) In the event this informatio n is protected by the Federal Confidentiality of Alcohol and Drug Abuse Patient Records regulations: The Federal rules restrict any use of the information to criminally investigate or prosecute any alcohol or drug abuse patient.[facility] the event this information is protected by the Federal Confidentiality of Alcohol and Drug Abuse Patient Records regulations: The Federal rules restrict any use of the information to criminally investigate or prosecute any alcohol or drug abuse patient.[facility] Reason for Visit (unrecogniz ed section and content) Reason Comments New Patient Specialty Diagnoses / Procedures Referred By Contac t Referred To Contact Physical Therapy Diagnoses Presence of artificial hip joint, right Procedures MD OFFICE/OUTPATIENT NEW HIGH MDM 60 MINUTES Charissa Blair, DO [address] [place] [address] [address] [place] [address] Referral ID Status Reason Start Date Expiration Date Visits Requested Visits Authorized [id number] Authorized Specialty Services Required 07/08/2023 01/04/2024 30 [...] BE BASED ON THE PRIMARY CLINICAL RECORDS. [facility] [email or web address] provides no warranty or guarantee of the accuracy or completeness of information in this document.
--- NOTE | 2024-03-23 07:46 | P.CN_ITS ---
Consult Note: HPI Data of Consult Patient: known to practice within the last 3 years Requesting Physician: Kath Steiner NP Primary Care Provider: JOHNATHAN LÓPEZ Consult Narrative Reason for consult: f/u Narrative: Lawson Vela a pleasant 69 year old male presents for evaluation of chronic low back, left posterior thigh and buttocks pain. Pain increased with all activity, improved with sleep and sitting. Patient reporting mild relief from ibuprofen, tizanidine, and norco 5-325mg. Patient underwent right hip replacement 07/21 and is hoping to have left hip replaced 05/21. Patient recently underwent repeat L5/S1 JEN with >80% improvement in pain and functional ability ongoing. cc:: CC: Kath Steiner NP Review of Systems ROS Status of ROS 10 or more systems reviewed and unremark able except as noted in history and below Musculoskeletal Reports: joint pain; Denies: back pain PFSH PFSH Medical History Neuritis ?M79.2 - Neuralgia and neuritis, unspecified (ICD-10) Left carpal tunnel syndrome ?G56.02 - Carpal tunnel syndrome, left upper limb (ICD-10) Osteoarthritis ?M19.90 - Unspecified osteoarthritis, unspecified site (ICD-10) Low back pain ?M54.50 - Low back pain, unspecified (ICD-10) Obesity ?E66.9 - Obesity, unspecified (ICD-10) Enlarged prostate ?N40.0 - Benign prostatic hyperplasia without lower urinary tract symptoms (ICD-10) Former smoker ?Z87.891 - Personal history of nicotine dependence (ICD-10) Hypertension ?I10 - Essential (primary) hypertension (ICD-10) Surgical History Hx of appendectomy ?Z90.49 - Acquired absence of other specified parts of digestive tract (ICD- 10) Social History Smoking status: Former smoker Meds Home Medications and Allergies Home Medications ?Medication ?Instructions ?Recorded ?Confirmed ?Type ascorbic acid (vitamin C) 500 mg 500 mg PO DAILY 12/10/22 03/14/24 History tablet (C-500) bee pollen 550 mg capsule mg PO .QD 12/10/22 History carvedilol 6.25 mg tablet 6.25 mg PO BID 12/10/22 03/14/24 History cholecalciferol (vitamin D3) 10 10 mcg PO DAILY 12/10/22 03/14/24 History mcg (400 unit) capsule (Vitamin D3) finasteride 5 mg tablet 5 mg PO .QD 12/10/22 03/14/24 History hydrocodone 5 mg-acetaminophen 325 1 tab PO QID PRN pain 12/10/22 03/14/24 History mg tablet mecobalamin (vitamin B12) 1,000 1,000 mcg PO DAILY 12/10/22 03/14/24 History mcg chewable tablet (B12 Active) meloxicam 15 mg tablet 15 mg PO .QD 12/10/22 03/14/24 History multivitamin 1 tab PO DAILY 12/10/22 03/14/24 History sildenafil 100 mg tablet (Viagra) 100 mg PO DAILY PRN sexual activity 12/10/22 03/14/24 History solifenacin 10 mg tablet 10 mg PO DAILY 12/10/22 03/14/24 History tamsulosin 0.4 mg capsule 0.4 mg PO Q24H 12/10/22 03/14/24 History tizanidine 4 mg capsule 4 mg PO .HS PRN muscle spasticity 12/10/22 03/14/24 History vitamin B complex (Complex B-100 1 tab PO DAILY 12/10/22 03/14/24 History tablet,extended release) zinc 50 mg tablet 50 mg PO DAILY 12/10/22 03/14/24 History Allergies Allergy/AdvReac Type Severity Reaction Status Date / Time No Known Drug Allergies Allergy Verified 03/14/24 07:25 Exam Constitutional Documenting provider has reviewed patient's vital signs: yes Common normals: no apparent distress, oriented x3, healthy appearing, alert and well nourished General appearance: cooperative Nutritional appearance: obese HENMT Common normals: normocephalic, hearing grossly normal bilaterally and moist oral mucous membranes Head and scalp: normocephalic Eye Common normals: PERRL Pupil: PERRL Neck & C-Spine Common normals: full ROM General: normal visual inspection Chest Common normals: inspection of chest normal Respiratory Common normals: normal respiratory effort, no retractions and no use of accessory muscles Back & Pelvis Lumbar spine/lower back: ROM limited and straight leg raise negative bilaterally; no pain with ROM, no lumbar spinal tenderness and no paraspinal muscle tenderness Sacroiliac joints: SI joints normal Other: decreased sensation to left L4,5 L5,S1 dermatomal pattern strength 5/5 in BLE Extremity Common normals: normal to inspection and full ROM Left lower extremity: hip joint Other: moderate pain with internal and external log roll Neuro Common normals: oriented x3, CN's II-XII intact bilaterally, moves all extremities, no focal motor deficits, no sensory deficits noted and deep tendon reflexes 2+ bilaterally Sensorium/orientation: alert Gait (neuro): antalgic Motor exam: strength 5/5 throughout and no movement abnormalities noted Psych Common normals: mental status grossly normal, thought process normal, cooperative, affect normal, speech normal and activity/motor behavior normal Speech: normal speech Thought process: normal thought process Results Additional Findings Additional findings: If on a controlled substance or opioids, I have checked an [place] report on this patient and there are no aberrancies noted in the prescribing history.??If on a controlled substance or opioid a drug screen was completed and reviewed within the last year, and if there has not been a drug screen completed we ordered one today to monitor higher risk, state monitored pain medication use. As part of providing excellent, safe, comprehensive care, the following was completed at our patient's visit: 1. A medication reconciliation and review to ensure accurate knowledge of current/active medications, including asking our patients to inform us about any [id number] medications or herbal remedies/nutritional supplements/alternative remedies. 2. A review to specifically ensure our patients have had annual screening for screening for depression, screening for tobacco use, and screening for unhealthy alcohol use. For concerning screenings had a discussion with the patient, provided patient education, and recommended follow-up with primary care provider when appropriate. If patient noted with a risk of falling, they received education on strength, gait, and balance training to prevent future risk of falling. Assessment and Plan Assessment and Plan (1) Lumbar stenosis with neurogenic claudication: (2) Lumbar spondylosis: (3) Myofascial pain: Plan >80% improvement from L5/S1 JEN ongoing continue care with Dr Blair, upcoming left hip replacement f/u 3 months, sooner if needed
== END 2024-03-23 07:37 | disposition home or self-care (01) ==
LOC: PM 07:36
PROVIDERS: PCP Internal Medicine; Visit Provider Nurse Practitioner
DX: M48.062 Spinal stenosis, lumbar region with neurogenic claudication (principal); M47.816 Spondylosis without myelopathy or radiculopathy, lumbar region; M79.18 Myalgia, other site
CPT/HCPCS: G0463

== ENCOUNTER 2024-06-15 07:29 | Outpatient (OUT) | payer MEDICARE, OTHER, SELFPAY ==
--- OUTSIDE RECORDS SUMMARY | 2024-06-15 07:31 | XMS_ITS | CCD ---
Author Organization [facility] Care Team Providers Care Light Bulb Tester Name Role Phone JAVAD DONATO Primary Care [...] Attending Unavailable MARIBEL, DR MANN Admitting Unavailable BEESHMIPATHY ., JUN Attending Peyton vailable MARIBEL, DR [...] vailable LAKSHMIPATHY ., NARENDRANATH Attending Peyton vailable LAKSHMIPATHY ., NARENDDERIANATH Admitting [...] Primary Care Provider UnavailLAILA Cardenas Attending Unavailable Javad Donato MD Unavailable Javad Donato MD Primary Care Provider [phone] Mac SANTIAGO Attending Unavailable Mac SANTIAGO Attending Unavailable Javad Donato MD Primary Care Provider CHARISSA BLAIR Referring Unavailable JAVAD DONATO Primary Care Unavailable CHARISSA BLAIR Admitting Unavailable CHARISSA BLAIR Attending Unavailable JAVAD DONATO Primary Care Unavailable DEVIN SAUL Attending Unavailable JAVAD DONATO Primary Care Unavailable CHARISSA BLAIR Attending Unavailable CHARISSA BLAIR Referring Unavailable JAVAD DONATO Primary Care Unavailable CHARISSA BLAIR Referring Unavailable JAVAD DONATO Primary Care Unavailable CARO, CHARISSA Rose Referring Unavailable JAVAD DONATO Primary Care Unavailable CARO, CHARISSA Rose Referring Unavailable JAVAD DONATO Primary Care Unavailable CARO, CHARISSA Rose Referring Unavailable JAVAD DONATO Primary Care Unavailable CARO, CHARISSA Rose Admitting Unavailable NURY, CHARISSA Rose Attending Unavailable JAVAD DONATO Primary Care Unavailable Wednesday FROG CATCHER, Michelle Unavailable Wednesday FROG CATCHER, Michelle Unavailable JAVAD DONATO Attending Unavailable JOSE HERNÁNDEZ Attending Unavailable BONINAGI MUNSON Attending Unavailable NURY, CHARISSA Rose Referring Unavailable JEANNA MENDIOLA Attending Unavailable NURY, CHARISSA Rose Referring Unavailable JEANNA MENDIOLA Attending Unavailable NURY, CHARISSA Rose Referring Unavailable JEANNA MENDIOLA Attending Unavailable NURY, CHARISSA Rose Referring Unavailable HERNÁNDEZ, JOSE Barkley Attending Unavailable HERNÁNDEZ, JOSE Barkley Referring Unavailable NAGI PLATA Attending Unavailable NURY, CHARISSA Rose Referring Unavailable JEANNA MENDIOLA Attending Unavailable NURY, CHARISSA Rose Referring Unavailable JEANNA MENDIOLA Attending Unavailable NURY, CHARISSA Rose Referring Unavailable BONINAGI MUNSON Attending Unavailable NURY, CHARISSA Rose Referring Unavailable NAGI PLATA Attending Unavailable NURY, CHARISSA Roes Referring Unavailable HERNÁNDEZ, JOSE Barkley Attending Unavailable HERNÁNDEZ, JOSE Barkley Attending Unavailable HERNÁNDEZ, JOSE Barkley Referring Unavailable HERNÁNDEZ, JOSE Barkley Attending Unavailable HERNÁNDEZ, JOSE Barkley Referring Unavailable NURY, CHARISSA Rose Attending Unavailable GEOFFREY MCCLENDON Attending Unavailable NURY, CHARISSA Rose Attending Unavailable HEMGEOFFREY MITCHELL Attending Unavailable HERNÁNDEZ, JOSE Barkley Attending Unavailable NURY, CHARISSA Rose Referring Unavailable JAVAD DONATO Attending Unavailable NURY, CHARISSA Rose Attending Unavailable NURY, CHARISSA Rose Attending Unavailable HERNÁNDEZ, JOSE Barkley Attending Unavailable HERNÁNDEZ, JOSE Barkley Referring Unavailable Allergies Allergy Classification Reported Allergen(s) Allergy Type Date of Onset Reaction(s) Facility (20 sources) carvedilol; Translations: [CARVEDILOL] Drug Allergy 06-29-2022 [facility] Medications Current Medications Medication Drug Class(es) Dates Sig (Normalized) Sig (Original) acetaminophen 500 mg oral tablet (2 sources) Start: 02-07-2024 End: 04-04-2024 take 1 tablet by mouth every six hours Tylenol Extra Strength 500 mg oral tablet See Instructions, tab(s) mg Oral q6hr, Refills(s) 0 Start Date: 02/07/24 Status: Ordered acetaminophen 325 mg / HYDROcodone bitartrate 5 mg oral tablet (20 sources) Opioid Agonist Start: 04-12-2024 take 1 tablet by mouth every six hours for pain HYDROcodone-aceta minophen ([place]) 5-325 MG tablet Indications: Herniated lumbar disc without myelopathy Take 1 tablet by mouth every 6 (six) hours if needed for severe pain 20 tablet 04/12/2024 Active Start: 02-07-2024 take 1 tablet by yvon th every six hours [place] 325 mg-5 mg oral tablet 1 tab(s), Oral, q6hr, Refill(s) 0 Start Date: 02/07/24 Status: Ordered End: 04-12-2024 HYDROcodone-acetaminophen (N orco) 5-325 MG tablet 04/12/2024 Discontinued (Reorder) HYDROcodone-acet aminophen (NORCO) 5-325 mg per tablet amoxicillin 500 mg oral tablet (20 sources) Penicillin-class Antibacterial Start: 01-24-2024 End: 04-12-2024 take 4 tablets by mouth once at mealtime amoxicillin (Amoxil) 500 MG tablet Indications: Status post right hip replacement 4 tabs PO once 30-60 mins before procedure with food 4 tablet 3 04/12/2024 Active Ascorbic Acid (20 sources) Vitamin C Start: 02-16-2022 Vitamin C Daily, Refills(s) 0 Start Date: 02/16/22 Status: Ordered ascorbic acid (V itamin C) 500 MG chewable tablet 1 (one) time each day at the same time. Active take 1 tablet by mouth in the mo rning ascorbic acid (VITAMIN C) 500 mg tablet Take 1 tablet (500 mg total) by mouth in the morning. Active B Complex Vitamins (vitamin B complex) tablet (20 sources) B Complex Vitami ns (vitamin B complex) tablet as directed Orally Active B Complex Vitami ns (vitamin B complex) tablet as directed Orally 0 Active BEE POLLEN ORAL (1 source) take 1 tablet by mouth in the morning BEE POLLEN ORAL Take 1 tablet by mouth in the morning. Active betamethasone 0.5 mg/ml / clotrimazole 10 mg/ml topical cream (2 sources) Azole Antifungal, Corticosteroid Start: 020 Lotrisone 0.05%-1% Cream Topical, BID, Refill(s) 0 Start Date: 06/14/20 Status: Ordered Cholecalciferol (20 sources) Vitamin D Start: 024 cholecalciferol 1,250 mcg, Daily, Refills(s) 0 Start Date: 02/07/24 Status: Ordered cholecalciferol (Vitamin D3) 25 MCG (1000 UT) tablet 1 (one) time each day at the same time. Active take 1 tablet by mouth in the mo rning cholecalciferol 1,000 units tablet Take 1 tablet (1,000 Units total) by mouth in the morning. Active clindamycin 300 mg oral capsule (2 sources) Lincosamide Antibacterial Start: 12-17-2016 take 2 capsules by mouth every eight hours Start: 12-17-2016 take 2 capsules by mouth every eight hours ferrous sulfate 325 mg delayed release oral tablet (13 sources) Start: 04-06-2024 End: 05-06-2024 take 1 tablet by mouth at mealtime ferrous sulfate (Fe Tabs) 325 (65 Fe) MG EC tablet Indications: Arthritis of left hip Take 1 tablet (325 mg) by mouth in the morning. Take with meals. Do not crush, chew, or split.. 30 tablet 04/06/2024 05/06/2024 Active Start: 06-08-2023 End: 08-07-2023 take 1 tablet by mouth at mealtime ferrous sulfate (Fe Tabs) 325 (65 Fe) MG EC tablet Indications: Arthritis of right hip Take 1 tablet (325 mg) by mouth in the morning. Take with meals. Do not crush, chew, or split.. 30 tablet 1 06/08/2023 08/07/2023 Active finasteride 5 mg oral tablet (20 sources) 5-alpha Reductase Inhibitor Start: 06-24-2021 take 1 tablet by mouth in the morning finasteride (Proscar) 5 MG tablet Take 5 mg by mouth in the morning. 10/21/2022 Active Comment on above: Take 5 mg by mouth. Diflucan (2 sources) Azole Antifungal Start: 06-14-2020 Diflucan Refills(s) 0 Start Date: 06/14/20 Status: Ordered folic acid/multivit-min/lutein (CENTRUM SILVER ORAL) (1 source) take 1 tablet by mouth once in the morning folic acid/multivit-mi n/lutein (CENTRUM SILVER ORAL) Take 1 tablet by mouth in the morning. Active hydroCHLOROthiazide 12.5 mg / irbesartan 150 mg oral tablet (20 sources) Thiazide Diuretic, Angiotensin 2 Receptor Becca Start: 02-08-2023 take 1 tablet by mouth once in the morning irbesartan-hydro CHLOROthiazide (AVALIDE) 150-12.5 mg per tablet Take 1 tablet by mouth in the morning. 02/08/2023 Active Start: 02-08-2023 take 1 tablet by yvon th in the morning irbesartan-hydroCHLOROthiazide (Avalide) 150-12.5 MG tablet Indications: Benign essential hypertension (CMS/HCC) Take 1 tablet by mouth in the morning. 100 tablet 2 02/08/2023 Active Start: 02-08-2023 take 1 tablet by yvon th once daily irbesartan-hydroCHLOROthiazide (Avalide) 150-12.5 MG tablet Indications: Benign essential hypertension (CMS/HCC) Take 1 tablet by mouth Daily 100 tablet 12/07/2023 Active take 1 tablet by yvon th [...] day for 30 days Nov, Active Magnesium (1 source) take 1 tablet by mouth in the morning magnesium 200 mg tablet Take 1 tablet by mouth in the morning. Active magnesium gluconate 550 mg oral tablet (20 sources) take 1 tablet by mouth in the morning magnesium 30 MG tablet Take 30 mg by mouth in the morning and 30 mg before bedtime. Active Magnesium glycinate (1 source) Start: 02-07-20 take 1 tablet by mouth every twenty-four hours magnesium glycinate 200 mg oral tablet 200 mg = 1 tab(s), Oral, q24hr, Refills(s) 0 Start Date: 02/07/24 Status: Ordered meloxicam 15 mg oral tablet (20 sources) Nonsteroidal Anti-inflammatory Drug Start: 12-07-19 take 1 tablet by mouth once daily at mealtime meloxicam (Mobic) 15 MG tablet Indications: Primary osteoarthritis of first carpometacarpal joint of left hand Take 1 tablet (15 mg) by mouth Daily Take with food 100 tablet 3 12/07/2023 Active Start: 01-14-2023 take 1 tablet by yvon th at mealtime meloxicam (Mobic) 15 MG tablet Indications: Primary osteoarthritis of first carpometacarpal joint of left hand Take 1 tablet (15 mg) by mouth in the morning. Take with food. 100 tablet 3 01/14/2023 Active Start: 06-14-2020 take 1 mg by mouth once daily meloxicam 15 mg oral tablet mg tab(s), Oral, Daily, Refills(s) 0 Start Date: 06/14/20 Status: Ordered take 1 tablet by yvon th in the morning meloxicam (MOBIC) 7.5 mg tablet Take 1 tablet (7.5 mg total) by mouth in the morning. Active Comment on above: Take 7.5 mg by mouth . Multi Vitamin+ (2 sources) Start: 02-16-2022 Multi Vitamin+ Refill(s) 0 Start Date: 02/16/22 Status: Ordered Multiple Vitamin (Multi Vitamin) tablet (20 sources) Multiple Vitamin (Multi Vitamin) tablet 1 (one) time each day at the same time. Active Multiple Vitamin (Multi Vitamin) tablet 1 (one) time each day at the same time. 0 Active predniSONE 10 mg oral tablet (2 sources) Start: 12-17-2022 Start: 12-17-2022 predniSONE 10 MG Take 3 tablets by mouth for 3 days then 2 tablets by mouth for 3 days then 1 tablet by mouth for 3 days Orally Once a day for Nov, Active selenium 200 mcg capsule (1 source) take 1 capsule by mouth in the morning selenium 200 mcg capsule Take 1 capsule (200 mcg total) by mouth in the morning. Active sildenafil 100 mg oral tablet (20 sources) Phosphodiesterase 5 Inhibitor Start: 02-07-20 sildenafil 100 mg Tab 100 mg = 1 tab(s), REGIMEN As Directed, Refills(s) 0 Start Date: 02/07/24 Status: Ordered solifenacin succinate 10 mg oral tablet (20 sources) Cholinergic Muscarinic Antagonist Start: 11-26-19 take 1 tablet by mouth once daily Vesicare 10 mg Tab 10 mg = 1 tab(s), Oral, Daily, # 30 tab(s), Refills(s) 11, Pharmacy: [facility] [id number], 186, cm, 02/08/23 11:10:00 EDT, Height/Length Dosing, 129, kg, 02/08/23 11:10:00 EDT, Weight Dosing Start Date: 09/30/23 Status: Ordered Comment on above: 1 (one) time each da y at the same time. tamsulosin hydrochloride 0.4 mg oral capsule (20 sources) alpha-Adrenergic Becca Start: 08-21-19 take 1 capsule by mouth every twenty-four hours in the morning tamsulosin (Flomax) 0.4 MG 24 hr capsule Take 0.4 mg by mouth in the morning and 0.4 mg before bedtime. 08/21/2022 Active Start: 06-30-2021 take [address] [facility] twice daily tamsulosin 0.4 mg Cap 0.4 mg = 1 cap(s), Oral, BID, # 60 cap(s), Refills(s) 11, Pharmacy: [facility] [id number], 186, cm, 02/08/23 11:10:00 EDT, Height/Length Dosing, 129, kg, 02/08/23 11:10:00 EDT, Weight Dosing Start Date: 09/29/23 Status: Ordered Comment on above: Take 0.4 mg by mouth . tiZANidine 4 mg oral tablet (20 sources) Central alpha-2 Adrenergic Agonist Start: 05-24-2024 take 1 tablet by mouth once daily tiZANidine (Zanaflex) 4 MG tablet Indications: Herniated lumbar disc without myelopathy Take 1 tablet (4 mg) by mouth Daily 30 tablet 2 05/24/2024 Active Start: 02-07-2024 take 1 tablet by yvon every eight hours tiZANidine 4 mg Tab 4 mg = 1 tab(s), Oral, q8hr, Refills(s) 0 Start Date: 02/07/24 Status: Ordered Start: 01-21-2024 take 1 tablet by yvon once daily tiZANidine (Zanaflex) 4 MG tablet Indications: Herniated lumbar disc without myelopathy Take 1 tablet (4 mg) by mouth Daily 30 tablet 2 01/21/2024 Active Start: 04-03-2022 tiZANidine (Za naflex) 4 MG tablet 1 tablet as needed Orally at bedtime for 30 days 0 04/03/2022 Active take 1 tablet by yvon th every six hours as needed tiZANidine (ZANAFLEX) 4 mg tablet Take 1 tablet (4 mg total) by mouth every 6 (six) hours as needed for muscle spasms. Active Comment on above: 1 tablet as needed O rally at bedtime for 30 days Vitamin B Complex (1 source) take 1 tablet by mouth in the morning vitamin B complex (B COMPLEX 1 ORAL) Take 1 tablet by mouth in the morning. Active Vitamin B Complex oral capsule (1 source) Start: 02-07-2024 take 1 capsule by mouth once daily Vitamin B Complex oral capsule 1 cap(s), Oral, Daily, Refill(s) 0 Start Date: 02/07/24 Status: Ordered vitamin B12 (20 sources) Vitamin B12 Start: 02-16-2022 Vitamin B12 Refills(s) 0 Start Date: 02/16/22 Status: Ordered cyanocobalamin ( Vitamin B-12) 100 MCG tablet as directed Orally Active Zinc (3 sources) Start: 02-16-2022 take 1 mg by mouth once daily Zinc mg, Oral, Daily, Refills(s) 0 Start Date: 02/16/22 Status: Ordered zinc gluconate 50 mg oral tablet (20 sources) zinc gluconate 5 0 MG tablet 1 (one) time each day at the same time. Active Completed/Discontinued Medications Medication Drug Class(es) Dates Sig (Normalized) Sig (Original) cefTRIAXone (1 source) Cephalosporin Antibacterial Start: 12-17-2016 Rocephin 500 mg Nov, 500 mg oxyCODONE hydrochloride 5 mg oral tablet (7 sources) Opioid Agonist Start: 05-02-2024 End: 05-13-2024 take 1 tablet by mouth every six hours for pain oxyCODONE (Roxicodone) 5 MG immediate release tablet Indications: Post-operative pain Take 1 tablet (5 mg) by mouth every 6 (six) hours if needed for moderate pain for up to 5 days 20 tablet 05/08/2024 05/13/2024 silver sulfADIAZINE 10 mg/ml topical cream (2 [...] Documented Date Episodic/Chronic Disorders of lipid metabolism (3 sources) Hyperlipidemia 06-17-2020 Chronic Esophageal disorders (20 sources) Gastroesophageal reflux disease without esophagitis; Translations: [Gastro-esophageal reflux disease without esophagitis] Onset: 01-11-2023 01-11-2023 Chronic Essential hypertension (20 sources) Hypertensive disorder; Translations: [Essential (primary) hypertension] Onset: 08-13-2022 Resolved: 01-21-2024 06-17-2020 Chronic Genitourinary symptoms and ill-defined conditions (8 sources) Urge incontinence; Translations: [Post-micturition incontinence ] Onset: 02-16-2022 Chronic Genitourinary symptoms and ill-defined conditions (6 sources) Increased frequency of urination; Translations: [Nocturia] 06-17-2020 Episodic Gout and other crystal arthropathies (3 sources) Gout 06-17-2020 Chronic Headache; including migraine (3 sources) Headache 06-17-2020 Episodic Hyperplasia of prostate (20 sources) Benign prostatic hypertrophy with outflow obstruction; Translations: [Benign prostatic hyperplasia with lower urinary tract symptoms] Onset: 02-16-2022 Chronic Osteoarthritis (20 sources) Arthritis; Translations: [Bilateral primary osteoarthritis of hip] Onset: 11-16-2022 06-17-2020 Chronic Other connective tissue disease (20 sources) History of total hip arthroplasty; Translations: [Presence of right artificial hip joint] Onset: 07-29-2023 07-29-2023 Chronic Other connective tissue disease (3 sources) History of repair of hip joint; Translations: [Presence of right artificial hip joint] 08-05-2023 Chronic Other connective tissue disease (6 sources) Pain in right leg; Translations: [PAIN IN RIGHT LEG] Onset: 10-08-2022 Episodic Other diseases of bladder and urethra [...] Onset: 10-14-2022 Chronic Other nervous system disorders (20 sources) Carpal tunnel syndrome of right wrist; Translations: [Carpal tunnel syndrome, right upper limb] Onset: 01-11-2023 01-11-2023 Chronic Other nervous system disorders (20 sources) Chronic pain; Translations: [Other chronic pain] Onset: 01-11-2023 01-11-2023 Chronic Other nervous system disorders (2 sources) Postoperative pain ; Translations: [Other acute postprocedural pain] 05-02-2024 Episodic Other non-traumatic joint disorders (5 sources) Pain in left hip; Translations: [PAIN IN LEFT HIP] Onset: 11-13-2022 Episodic Other non-traumatic joint disorders (1 source) Pain in right hip; Translations: [PAIN IN RIGHT HIP] Onset: 11-25-2022 Episodic Other non-traumatic joint disorders (12 sources) Pain in right hip joint; Translations: [Pain in right hip] Onset: 07-29-2023 07-29-2023 Episodic Other non-traumatic joint disorders (20 sources) Hip pain; Translations: [Pain in right hip] Onset: 07-29-2023 07-29-2023 Episodic Other nutritional; endocrine; and metabolic disorders (1 source) Obese class II; Translations: [Body mass index (BMI) 35.0-35.9, adult] Onset: 02-16-2022 Chronic Other nutritional; endocrine; and metabolic disorders (20 sources) Body mass index 30+ - obesity; Translations: [Body mass index (BMI) 38.0-38.9, adult] Onset: 01-21-2024 02-16-2022 Chronic Other nutritional; endocrine; and metabolic disorders (2 sources) Body mass index (BMI) 38.0-38.9, adult Chronic Other nutritional; endocrine; and metabolic disorders (20 sources) Severe obesity; Translations: [Class 2 severe obesity with serious comorbidity and body mass index (BMI) of 37.0 to 37.9 in adult] Onset: 01-21-2024 01-21-2024 Chronic Other upper respiratory disease (20 sources) Allergic rhinitis; Translations: [Allergic rhinitis, unspecified] Onset: 01-11-2023 01-11-2023 Chronic Peripheral and visceral atherosclerosis (20 sources) Atherosclerosis of aorta; Translations: [Atherosclerosis of aorta] Onset: 01-21-2024 01-21-2024 Chronic Screening and history of mental health [...] Date Documented Da te Episodic/Chronic Abdominal hernia (20 sources) Umbilical hernia; Translations: [Umbilical hernia without obstruction or gangrene] Onset: 01-11-2023 01-11-2023 Episodic Coma; stupor; and brain damage (20 sources) Daytime somnolence; Translations: [Somnolence] Onset: 01-11-2023 01-11-2023 Episodic Diabetes mellitus without complication (20 sources) Impaired glucose tolerance; Translations: [Impaired glucose tolerance (oral)] Onset: 06-30-2023 06-30-2023 Episodic Other connective tissue disease (20 sources) Muscle pain; Translations: [Myalgia, unspecified site] Onset: 08-04-2023 08-04-2023 Episodic Other connective tissue disease (20 sources) Ganglion cyst of left volar wrist; Translations: [Ganglion, left wrist] Onset: 01-21-2024 01-21-2024 Episodic Other diseases of kidney and ureters (20 sources) Disorder of urinary tract; Translations: [Other obstructive and reflux uropathy] Onset: 01-11-2023 01-11-2023 Episodic Other lower respiratory disease (20 sources) Snoring; Translations: [Snoring] Onset: 01-11-2023 01-11-2023 Episodic Spondylosis; intervertebral disc disorders; other back problems (20 sources) Muscle spasm of back; Translations: [Radiculopathy, lumbar region] Onset: 05-01-2022 Episodic Unclassified (1 source) LOW BACK PAIN, UNSPECIFIED; Translations: [LOW BACK PAIN, UNSPECIFIED] Onset: 07-23-2022 Results Test Name Value Interpretation Reference Range Facility XR Hip - left 3 [facility] 05-28 Imaging Result: 06/12/2024: AP and lateral of left hip showed acceptable position and alignment of left total hip arthroplasty. There was no evidence of loosening of the acetabular cup or femoral stem. Femoral head was well centered in the acetabular liner without evidence of asymmetric or accelerated wear. There was no gross evidence of fracture and/or dislocation. Impression: Unremarkable left total hip arthroplasty. Jose Hernández SUPERVISOR TELEVISION CHASSIS REPAIR-PRODUCTION PROOFREADER [facility] observation (narrative[facility] XR HIP LT 2-3 VIEWS W OR WO PELVISon 05-03-2024 XR HIP LT 2-3 VIEWS W OR WO PELVIS XR HIP LT 2-3 VIEWS W OR WO PELVIS XR HIP LT 2-3 VIEWS W OR WO PELVIS HISTORY: Hip replacement. COMPARISON: None. IMPRESSION: 1. Hip prosthesis without visible complication. Soft tissue gas and swelling. Finalized by Price Delcid MD on 05/03/2024 10:26 AM [facility] XR Hip - left 3 [facility] 03-28 Imaging Result: April 06, 2024 x-rays AP and lateral of the left hip demonstrate joint space collapse with subchondral sclerosis and osteophyte formation consistent with arthritis. Impression: Arthritis of the left hip Amauri Blair D.O. [facility] Radiology Study observation (narrative) [facility] BASIC METABOLIC PANLon 04-04 Anion gap [Moles/Vol] 9 mmol/L Normal 5-15 [facility] Comment on above: Performed By: #### C BCA, BMP #### [facility] ([id number]) [address], [address] [place] [address] Calcium [Mass/Vol] 9.8 mg/dL Normal 8.5-10.5 [facility] Comment on above: Performed By: #### C BCA, BMP #### [facility] ([id number]) [address], [address] [place] [address] Chloride [Moles/Vol] 103 mmol/L Normal 98-109 [facility] Comment on above: Performed By: #### C BCA, BMP #### [facility] ([id number]) [address], [address] [place] [address] CO2 [Moles/Vol] 27 mmol/L Normal 22-32 [facility] Comment on above: Performed By: #### C BCA, BMP #### [facility] ([id number]) [address], [address] [place] [address] Creatinine [Mass/Vol] 0.89 mg/dL Normal 0.60-1.30 [facility] Comment on above: Result Comment: METH OD TRACEABLE TO IDMS STANDARD Performed By: #### C BCA, BMP #### [facility] ([id number]) [address], [address] [place] [address] eGFR (CKD-EPI) NON-RACE DEPENDENT >90 Normal >[address] [facility] Comment on above: Result Comment: Reported eGFR is based on the CKD-EPI 2020 equation that does not use a race coefficient. Performed By: #### C BCA, BMP #### [facility] ([id number]) [address], [address] [place] [address] Glucose [Mass/Vol] 101 mg/dL High 65-99 [facility] Comment on above: Performed By: #### C BCA, BMP #### [facility] ([id number]) [address], [address] [place] [address] Potassium [Moles/Vol] 4.1 mmol/L Normal 3.5-5.0 [facility] Comment on above: Performed By: #### C BCA, BMP #### [facility] ([id number]) [address], [address] [place] [address] Sodium [Moles/Vol] 139 mmol/L Normal 134-146 [facility] Comment on above: Performed By: #### C BCA, BMP #### [facility] ([id number]) [address], [address] [place] [address] Urea nitrogen [Mass/Vol] 19 mg/dL Normal 5-27 [facility] Comment on above: Performed By: #### C BCA, BMP #### [facility] ([id number]) [address], [address] [place] [address] Basic Metabolic Panelon 10-0 Anion gap [Moles/Vol] 9 mmol/L 5 - 15 mmol/L [facility] Calcium [Mass/Vol] 9.8 mg/dL 8.5 - 10. 5 mg/dL [facility] Chloride [Moles/Vol] 103 mmol/L 98 - 109 mmol/L [facility] CO2 [Moles/Vol] 27 mmol/L 22 - 32 mmol/L [facility] Creatinine [Mass/Vol] 0.89 mg/dL 0.60 - 1.30 mg/dL [facility] Comment on above: METHOD TRACEABLE TO IDMS STANDARD eGFR (CKD-EPI)non-race dependent - PINF [facility] Comment on above: Reported eGFR is based on the CKD-EPI 2020 equation that does not use a race coefficient. Glucose [Mass/Vol] 101 mg/dL High 65 - 99 mg/dL [facility] Interpretation and review of laboratory results Abnormal [facility] Potassium [Moles/Vol] 4.1 mmol/L 3.5 - 5.0 mmol/L [facility] Sodium [Moles/Vol] 139 mmol/L 134 - 146 mmol/L [facility] Urea nitrogen [Mass/Vol] 19 mg/dL 5 - 27 mg/dL [facility] CBC AND AUTO DIFFon 04-04-20 ABSOLUTE BASOPHIL 0.0 X10E9/L Normal 0.0-0.2 [facility] Comment on above: Performed By: #### Manuela MAGALLON, BMP #### [facility] ([id number]) [address], [facility] [address] [place] [address] ABSOLUTE NEUTROPHIL 4.6 X10E9/L Normal 1.5-6.6 [facility] Comment on above: Performed By: #### Manuela MAGALLON, BMP #### [facility] ([id number]) [address], [address] [place] [address] Basophils/100 WBC (Bld) 0.4 % Normal [facility] Comment on above: Performed By: #### Manuela MAGALLON, BMP #### [facility] ([id number]) [address], [address] [place] [address] Eosinophils (Bld) [#/Vol] 0.1 10*3/uL Normal 0.0-0.4 [facility] Comment on above: Performed By: #### Manuela BCA, BMP #### [facility] ([id number]) [address], [address] [address] Eosinophils/100 WBC (Bld) 1.8 % Normal [facility] Comment on above: Performed By: #### Manuela BCA, BMP #### [facility] ([id number]) [address], [address] [place] [address] Erythrocyte distribution width (RBC) [Ratio] 15.1 % High 11.5-15.0 [facility] Comment on above: Performed By: #### Manuela MAGALLON, BMP #### [facility] ([id number]) [address], [address] [place] [address] Hematocrit (Bld) [Volume fraction] 36.7 % Low 39-49 [facility] Comment on above: Performed By: #### C SHERITA, BMP #### [facility] ([id number]) [address], [address] [place] [address] Hemoglobin (Bld) [Mass/Vol] 12.5 g/dL Low 13.0-17.0 [facility] Comment on above: Performed By: #### C SHERITA, BMP #### [facility] ([id number]) [address], [address] [place] [address] Lymphocytes (Bld) [#/Vol] 1.4 10*3/uL Normal 1.0-3.5 [facility] Comment on above: Performed By: #### Manuela MAGALLON, BMP #### [facility] ([id number]) [address], [address] [place] [address] Lymphocytes/100 WBC (Bld) 21.3 % Normal [facility] Comment on above: Performed By: #### Manuela MAGALLON, BMP #### [facility] ([id number]) [address] [place] [address] MCH (RBC) [Entitic mass] 30.1 pg Normal 27-34 [facility] Comment on above: Performed By: #### C SHERITA, BMP #### [facility] ([id number]) [address] [place] [address] MCHC (RBC) [Mass/Vol] 34.0 g/dL Normal 32-36 [facility] Comment on above: Performed By: #### C SHERITA, BMP #### [facility] ([id number]) [address], [address] [place] [address] MCV (RBC) [Entitic vol] 89 fL Normal 80-100 [facility] Comment on above: Performed By: #### C SHERITA, BMP #### [facility] ([id number]) [address], [address] [place] [address] Monocytes (Bld) [#/Vol] 0.6 10*3/uL Normal 0-0.9 [facility] Comment on above: Performed By: #### C SHERITA, BMP #### [facility] ([id number]) [address], [address] [place] [address] Monocytes/100 WBC (Bld) 8.6 % Normal [facility] Comment on above: Performed By: #### C SHERITA, BMP #### [facility] ([id number]) [address], [address] [place] [address] Neutrophils/100 WBC (Bld) 67.9 % Normal [facility] Comment on above: Performed By: #### Manuela MAGALLON, BMP #### [facility] ([id number]) [address], [address] [place] [address] Platelet mean volume (Bld) [Entitic vol] 8.0 fL Normal 7-12 [facility] Comment on above: Performed By: #### C SHERITA, BMP #### [facility] ([id number]) [address], [address] [place] [address] Platelets (Bld) [#/Vol] 205 10*3/uL Normal 150-450 [facility] Comment on above: Performed By: #### C SHERITA, BMP #### [facility] ([id number]) [address], [address] [place] [address] RBC COUNT 4.14 X10E12/L Normal 4.10-5.70 [facility] Comment on above: Performed By: #### C SHERITA, BMP #### [facility] ([id number]) [address] [facility] [facility] [place] [address] WBC (Bld) [#/Vol] 6.7 10*3/uL Normal 4.0-11.0 [facility] Comment on above: Performed By: #### C SHERITA, BMP #### [facility] ([id number]) [address] [facility] [facility] [place] [address] CBC auto differentialon 10-0 Basophils (Bld) [#/Vol] 0.0 10*3/uL [facility] Basophils/100 WBC (Bld) 0.4 % [facility] Eosinophils (Bld) [#/Vol] 0.1 10*3/uL [facility] Eosinophils/100 WBC (Bld) 1.8 % [facility] Erythrocyte distribution width (RBC) [Ratio] 15.1 % High 11.5 - 15.0 % [facility] Hematocrit (Bld) [Volume fraction] 36.7 % Low 39 - 49 % [facility] Hemoglobin (Bld) [Mass/Vol] 12.5 g/dL Low 13.0 - 17.0 g/dL [facility] Interpretation and review of laboratory results Abnormal [facility] Lymphocytes (Bld) [#/Vol] 1.4 10*3/uL [facility] Lymphocytes/100 WBC (Bld) 21.3 % [facility] MCH (RBC) [Entitic mass] 30.1 pg 27 - [address] [facility] MCHC (RBC) [Mass/Vol] 34.0 g/dL 32 - 36 g/dL [facility] MCV (RBC) [Entitic vol] 89 fL 80 - [address] [facility] Monocytes (Bld) [#/Vol] 0.6 10*3/uL [facility] Monocytes/100 WBC (Bld) 8.6 % [facility] Neutrophils (Bld) [#/Vol] 4.6 10*3/uL [facility] Neutrophils/100 WBC (Bld) 67.9 % [facility] Platelet mean volume (Bld) [Entitic vol] 8.0 fL 7 - 12 fL [facility] Platelets (Bld) [#/Vol] 205 10*3/uL [facility] RBC (Bld) [#/Vol] 4.14 10*6/uL [facility] WBC corrected for nucl RBC Auto (Bld) [#/Vol] 6.7 [facility] ECG 12 leadon 04-04-2024 TRACEMASTERVUE [facility] Ambulatory Visit Summaryon 0 02-07-2024 Ambulatory Visit Summary Ambulatory Visit Summary LAWSON VELA :1955 Visit Date:02/07/2024 Ambulatory Visit Instructions Your Diagnosis BPH with urinary obstruction OAB (overactive bladder) ED (erectile dysfunction) Your Care Team Attending Physician - Mac SANTIAGO MD Primary Care Physician - JAVAD DONATO MD This Is Your Medications List finasteride (finasteride 5 mg Tab) solifenacin (Vesicare 10 mg Tab) tamsulosin (tamsulosin 0.4 mg Cap) Contact prescribing physician if questions or concerns acetaminophen (Tylenol Extra Strength 500 mg oral tablet) acetaminophen-hydroco done ([place] 325 mg-5 mg oral tablet) ascorbic acid (Vitamin C) cholecalciferol hydrochlorothiazide-i rbesartan (hydrochlorothiazide- irbesartan 12.5 mg-150 mg Tab) magnesium glycinate (magnesium [...] [facility] [address] [place] [address]- Medications What How Much When Instructions Unchanged [...] prescribing physician if questions or concerns Unchanged acetaminophen-hydroco done ([place] 325 mg-5 mg oral tablet) 1 Tablets By Mouth Every 6 hours Contact prescribing physician if questions or concerns Unchanged ascorbic acid (Vitamin C) Every day Contact prescribing physician if questions or concerns Unchanged cholecalciferol 1,250 Microgram Every day Contact prescribing physician if questions or concerns Unchanged hydrochlorothiazide-i rbesartan (hydrochlorothiazide- irbesartan 12.5 mg-150 mg Tab) 1 Tablets By [...] 50 ye (more content not included)... Normal [facility] Office/Clinic Noteon 02-07-2024 Urology Office/Clinic Note [...] complaints. Follow-up With When Contact Information Mac SANTIAGO MD, L [facility] [address] [place] [address]- Additional Instructions: 1 yr Patient Education Benign Prostatic Hyperplasia I, Linda George, personally scribed for Dr. Santiago on 02/07/2024 11:32:10. . Documentation recorded by the scribe, Linda George, accurately reflects the services(s) I performed and decisions made by me. Authenticated by Dr. Santiago on 02/07/2024 11:33:54. Problem List/Past Medical History [...] mg= 1 tab(s), Oral, Daily, 3 refills hydrochlorothiazide-i rbesartan 12.5 mg-150 mg Tab, 1 tab(s), Oral, Daily magnesium glycinate 200 mg oral tablet, 200 mg= 1 tab(s), Oral, q24hr [place] 325 mg-5 mg oral tablet, 1 tab(s), [...] 1 c (more content not included)... Normal [facility] Comment on above: Result Comment: Elec tronically Signed By: Mac SANTIAGO MD\.br\Date and Time Signed: 02/07/24 11:34 EDT\.br\Electronically [...] right total hip replacement Amauri Blair D.O. [facility] Swing by Swing Radiology Study observation (narrative) [employer] Swing by Swing XR Hip - right 3 ViewsOrdere d By: Charissa Blair on 08-09-2023 [employer] Work Phone: XR HIP RT 2-3 VIEWS W OR WO PELVISon 07-07-2023 XR HIP RT 2-3 VIEWS W OR WO PELVIS XR HIP RT 2-3 VIEWS W OR WO PELVIS XR HIP RT 2-3 VIEWS W OR WO PELVIS HISTORY: Hip replacement. COMPARISON: None. IMPRESSION: 1. Hip prosthesis noted without visible acute complication Finalized by Price Delcid MD on 07/07/2023 11:06 AM [facility] CNOVon 04-13-2023 CNOV Office Visit (SPSLUH ) LAWSON VELA ([id number]) 1955 M DEF Date Time Provider Department 04/13/23 11:00 AM LAILA LEWIS SPSLU During your visit today, we recorded [...] right side behind his thigh Description: Stabbing Sharp;Throbbing;Achin g;Burning Duration Amount of Time: 40 1 Duration Units: Months Years Frequency: Continuous Continuous gets worse when he walks or stands for long Intervention/Comfort measure: Medication;Reposition ;Relaxation;Cold;Exer cise;Heat;Massage;Pil low support;Positioning -- Comments: Pain management; steroid injections has been pain manegment but is not seeing any changes in the pain AMBULATORY STATUS: Independent Community Distances ANTIPLATELET OR ANTICOAGULATION STATUS: No PREVIOUS CONSERVATIVE TREATMENTS: See below Aquatic Therapy: 3 months ago which helped, will start it again. 3 days a week. 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 meloxicam (MOBIC) 7.5 mg tablet Take 7.5 mg by mouth. HYDROcodone-acetamino phen (NORCO) 5-325 mg per tablet REVIEW OF [...] Self-harm Question 1 (more content not included)... [facility] XR lumbar spine 6V w bending on 12-17-2022 XR lumbar spine 6V w bending [facility] [place] [address] [place] [address] XRay Report Signed Patient: Lawson Vela MR#: [id number] : 1955 Acct:[id number] Age/Sex: 67 / M ADM Date: 12/17/22 Loc: XD Room: Type: [facility] CLI Attending Dr: Erica MILLER Copies to: ANGELA [...] Cobian Jr., D.O.12/17/2022 3:16 PM Dictation Location: [facility]--15 Transcribed By: [facility] 12/17/22 1516 Dictated By: Lenny Cobian Jr, DO 12/17/22 1514 Signed By: 12/17/22 1516 Normal [facility] XR lumbar spine 6V w bending [facility] [employer] Other XR lumbar spine 6V w bending [facility] [employer] Other XR lumbar spine 6V w bending [address] [place] [address] [employer] Other XR lumbar spine 6[place] [address] [employer] Other XR lumbar spine 6V w bending XRay Report [employer] Other XR lumbar spine 6V w bending Signed [employer] Other XR lumbar spine 6V w bending Patient: Lawson Vela MR#: [id number] [employer] Other XR lumbar spine 6V w bending : 1955 Acct:[id number] [employer] Other XR lumbar spine 6V w bending Age/Sex: 67 / M ADM Date: 12/17/22 [employer] Other XR lumbar spine 6V w bending Loc: XD Room: Type: [facility] [employer] Other XR lumbar spine 6V w bending Attending Dr: Erica BEDOYAC [employer] Other XR lumbar spine 6V w bending Copies to: AURELIANO KhanC [employer] Other XR lumbar spine 6V w bending Ordering Provider: AURELIANO KhanC [employer] Other XR lumbar spine 6V w bending Date of Service: 12/17/22 [employer] Other XR lumbar spine 6V w bending XR/XR lumbar spine 6V w bending: M54.16 [employer] Other XR lumbar spine 6V w bending LUMBAR SPINE - 6 views [employer] Other XR lumbar spine 6V w bending CLINICAL HISTORY: Right leg pain and numbness that radiates to toes [employer] Other XR lumbar spine 6V w bending COMPARISON: None [employer] Other XR lumbar spine 6V w bending FINDINGS: Vertebral body heights appear maintained. Diffuse endplate and facet joint degenerative [employer] Other XR lumbar spine 6V w bending changes. Mild diffuse disc space narrowing with relative sparing of L5-S1. No pathological motion [employer] Other XR lumbar spine 6V w bending on flexion or extension views. Limited sidebending. [employer] Other XR lumbar spine 6V w bending XR/XR lumbar spine 6V w bending [employer] Other XR lumbar spine 6V w bending IMPRESSION: [employer] Other XR lumbar spine 6V w bending DEGENERATIVE CHANGES OF THE LUMBAR SPINE WITH MILD DIFFUSE DISC SPACE NARROWING WITH RELATIVE [employer] Other XR lumbar spine 6V w bending SPARING OF L5-S1. [employer] Other XR lumbar spine 6V w bending Impression dictated by: Lenny Cobian Jr., D.O.12/17/2022 3:16 PM [employer] Other XR lumbar spine 6V w bending Dictation Location: [facility] [employer] Other XR lumbar spine 6V w bending Transcribed By: PWS 12/17/22 [facility] [employer] Other XR lumbar spine 6V w bending Dictated By: Lenny Cobian Jr, DO 12/17/22 [facility] [employer] Other XR lumbar spine 6V w bending Signed By: [employer] Other XR lumbar spine 6V w bending 12/17/22 [facility] [employer] Other XR HIPS JAIRO 3_4V WO PELVISon [...] by: DEVIN KNAPP Date: 2022-11-13 13:07 Normal [facility] MRI Lumbar Spine w/oon 05-01 MRI Lumbar [...] by YASMANY ARAYA on 05/01/2022 1217 Normal [facility] 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 COMPARISON: None. RESULT: No radiopaque foreign bodies. No acute osseous findings. IMPRESSION: No radiopaque foreign bodies. Report reported and signed by Javad Dickens on 04/27/2022 1540 Normal [facility] Special[facility] XR Spine Lumbar 4+ Views*on 04-06-2022 XR [...] by Lenny Cook on 04/06/2022 1106 Normal [facility] Vital Signs Date Time Vital Sign Value Performing Clinician Facility 04-17-2024 13:49-0400 Body height 185.4 cm Javad Donato MD Work Phone: [facility] 04-17-2024 13:49-0400 Body mass index (BMI) [Ratio] 37.6 kg/m2 Javad Donato MD Work Phone: [facility] 04-17-2024 13:49-0400 Body weight 129.28 kg Javad Donato MD Work Phone: [facility] 04-17-2024 13:49-0400 Diastolic blood pressure 68 mm[Hg] Javad Donato MD Work Phone: [facility] 04-17-2024 13:49-0400 Heart rate 96 /min Javad Donato MD Work Phone: [facility] 04-17-2024 13:49-0400 SaO2% (BldA) [Mass fraction] 98 % Javad Donato MD Work Phone: [facility] 04-17-2024 13:49-0400 Systolic blood pressure 128 mm[Hg] Javad Donato MD Work Phone: [facility] 04-06-2024 11:31-0400 Body height 185.4 cm Charissa Blair DO Work Phone: [facility] 04-06-2024 11:31-0400 Body mass index (BMI) [Ratio] 38.16 kg/m2 Charissa Blair DO Work Phone: [facility] 04-06-2024 11:31-0400 Body weight 131.18 kg Charissa Blair DO Work Phone: [facility] 04-04-2024 09:12-0400 Body height 185.4 cm [facility] 1 [facility] 04-04-2024 09:12-0400 Body mass index (BMI) [Ratio] 37.34 kg/m2 [facility] 1 [facility] 04-04-2024 09:12-0400 Body weight 128.37 kg [facility] 1 [facility] 02-07-2024 10:23-0400 Blood Pressure Location Mac SANTIAGO [facility] 02-07-2024 10:23-0400 Body temperature 98.6 [degF] Mac SANTIAGO [facility] 02-07-2024 10:23-0400 Diastolic blood pressure 82 mm[Hg] Mac SANTIAGO [facility] 02-07-2024 10:23-0400 Heart rate 75 /min Mac SANTIAGO [facility] 02-07-2024 10:23-0400 Respiratory rate 16 /min Mac SANTIAGO [facility] 02-07-2024 10:23-0400 Systolic blood pressure 132 mm[Hg] Mac SANTIAGO [facility] 12-17-2022 13:00-0400 Body height 182.88 cm Erica Xiong Other [employer] Other 12-17-2022 13:00-0400 Body mass index (BMI) [Ratio] 38.51 kg/m2 Erica Xiong Other [employer] Other 12-17-2022 13:00-0400 Body weight 128.82 kg Erica Xiong Other [employer] Other 12-17-2022 13:00-0400 Diastolic blood pressure 88 mm[Hg] Erica Xiong Other [facility] [employer] Other 12-17-2022 13:00-0400 Systolic blood pressure 146 mm[Hg] Erica Xiong Other [employer] Other 06-01-2022 11:29-0500 Blood Pressure Location Mac SANTIAGO [facility] 06-01-2022 11:29-0500 Diastolic blood pressure 76 mm[Hg] Mac SANTIAGO [facility] 06-01-2022 11:29-0500 Heart rate 70 /min Mac SANTIAGO [facility] 06-01-2022 11:29-0500 Respiratory rate 16 /min Macmichelle SANTIAGO [facility] 06-01-2022 11:29-0500 Systolic blood pressure 128 mm[Hg] Mac SANTIAGO [facility] 02-16-2022 10:28-0400 Blood Pressure Location Mac SANTIAGO [facility] 02-16-2022 10:28-0400 Diastolic blood pressure 84 mm[Hg] Mac SANTIAGO [facility] 02-16-2022 10:28-0400 Heart rate 68 /min Mac SANTIAGO [facility] 02-16-2022 10:28-0400 Respiratory rate 16 /min Mac SANTIAGO [facility] 02-16-2022 10:28-0400 Systolic blood pressure 136 mm[Hg] Mac SANTIAGO [facility] Encounters Encounter Date Encounter Type Care Provider Facility Start: 02-05-2025 ambulatory Mac Gentilei ty:[facility] [place] Start: 06-12-2024 End: 06-12-2024 Bamboo flowsheet Jose Hernández PRESSURE TESTER Work Phone: [facility] Start: 06-12-2024 End: 06-12-2024 Bamboo flowsheet Jose Hernández PRESSURE TESTER Work Phone: [facility] Start: 06-12-2024 End: 06-12-2024 Postop follow up visit related to original px Jose Hernández PRESSURE TESTER Work Phone: [facility] Comment on above: S/P total left hip a rthroplasty (Primary Dx); Left hip pain Start: 06-12-2024 End: 06-12-2024 ambulatory JOSE HERNÁNDEZ Not Available Start: 05-16-2024 End: 05-16-2024 Bamboo flowsheet Charissa Blair DO Work Phone: [facility] Start: 05-16-2024 End: 05-16-2024 Bamboo flowsheet Charissa Blair DO Work Phone: [facility] Start: 05-16-2024 End: 05-16-2024 Postop follow up visit related to original px Charissa Blair DO Work Phone: [facility] Comment on above: S/P total left hip a rthroplasty (Primary Dx) Start: 05-16-2024 End: 05-16-2024 ambulatory CHARISSA BLAIR Not Available Start: 05-09-2024 End: 05-09-2024 Bamboo flowsheet Charissa lBair DO Work Phone: [facility] Start: 05-09-2024 End: 05-09-2024 Bamboo flowsheet Charissa Blair DO Work Phone: [facility] Start: 05-09-2024 End: 05-09-2024 Postop follow up visit related to original px Charissa Blair DO Work Phone: [facility] Comment on above: S/P total left hip a rthroplasty (Primary Dx) Start: 05-09-2024 End: 05-09-2024 ambulatory CHARISSA BLAIR Not Available Start: 05-08-2024 End: 05-08-2024 Telephone encounter Jose Hernández NP Work Phone: [facility] Start: 05-04-2024 End: 05-04-2024 Telephone encounter Charissa Blair DO Work Phone: [facility] Comment on above: Discharge Start: 05-03-2024 End: 05-03-2024 ambulatory CHARISSA BLAIR [facility] Start: 05-02-2024 End: 05-02-2024 Refill Jose Hernández PRESSURE TESTER Work Phone: [facility] Comment on above: Post-operative pain (Primary Dx) Start: 04-17-2024 End: 04-17-2024 Bamboo flowsheet Javad Donato MD Work Phone: [facility] Start: 04-17-2024 End: 04-17-2024 Bamboo flowsheet Javad Donato MD Work Phone: [facility] Start: 04-17-2024 End: 04-17-2024 Office outpatient visit 25 minutes Javad Donato MD Work Phone: [facility] Comment on above: 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 (Primary Dx); Benign essential hypertension (CMS/HCC); Class 2 severe obesity with serious comorbidity and body mass index (BMI) of 37.0 to 37.9 in adult, unspecified obesity type (CMS/HCC) Start: 04-17-2024 End: 04-17-2024 ambulatory JAVAD DONATO Not Available Start: 04-12-2024 End: 04-12-2024 Refill Javad Donato MD Work Phone: [facility] Comment on above: 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 (Primary Dx) Status post right hi p replacement Start: 04-06-2024 End: 04-06-2024 [employer] Jose Hernández PRESSURE TESTER Work Phone: [facility] Start: 04-06-2024 End: 04-06-2024 [employer] Jose Hernández PRESSURE TESTER Work Phone: [facility] Start: 04-06-2024 End: 04-06-2024 Office outpatient visit 40 minutes Charissa Blair DO Work Phone: [facility] Comment on above: Left hip pain; Arthritis of left hip Start: 04-06-2024 End: 04-06-2024 ambulatory CHARISSA BLAIR Not Available Start: 04-04-2024 End: 04-04-2024 Patient encounter procedure [facility] Pre-Admission Testing 1 [facility] - Pre Admit Comment on above: Preop examination (P rimary Dx); Hypertension, unspecified type Start: 04-04-2024 End: 04-04-2024 Preprocedural examination done [facility] 1 [facility] Start: 04-04-2024 End: 04-04-2024 ambulatory CHARISSA BLAIR [facility] Start: 03-15-2024 End: 03-15-2024 Telephone encounter Nagi Plata PT Work Phone: [facility] Start: 02-17-2024 End: 02-17-2024 ambulatory GEOFFREY MCCLENDON Not Available Start: 02-07-2024 End: 02-07-2024 ambulatory Mac SANTIAGO Facility:[facility] Start: 02-07-2024 End: 02-07-2024 Patient encounter procedure Mac [place] PAMELA [facility] Start: 01-27-2024 End: 01-27-2024 ambulatory CHARISSA [...] Start: 08-09-2023 Bamboo flowsheet Jeanna Wrig ht CHIEF MEDICAL TECHNOLOGIST Work Phone: [facility] Start: 08-09-2023 Bamboo flowsheet Jeanna Wrig ht CHIEF MEDICAL TECHNOLOGIST Work Phone: [facility] Start: 08-09-2023 End: 08-09-2023 Postop follow up visit related to original px Jose Hernández PRESSURE TESTER Work Phone: [facility] Comment on above: 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; Status post right hip replacement Start: 08-09-2023 End: 08-09-2023 ambulatory Jeanna Mendiola CHIEF MEDICAL TECHNOLOGIST Work Phone: [facility] Comment on above: Right hip pain (Prim billie Dx); Status post total hip replacement, right; Arthritis of right hip Start: 08-06-2023 End: 08-06-2023 ambulatory Jeanna Mendiola CHIEF MEDICAL TECHNOLOGIST Work Phone: [facility] Comment on above: Right hip pain (Prim billie Dx); Status post total hip replacement, right; Arthritis of right hip Start: 08-02-2023 Bamboo flowsheet Jeanna Don ht CHIEF MEDICAL TECHNOLOGIST Work Phone: [facility] Start: 08-02-2023 Bamboo flowsheet Jeanna Don ht CHIEF MEDICAL TECHNOLOGIST Work Phone: [facility] Start: 08-02-2023 End: 08-02-2023 ambulatory Jeanna Mendiola CHIEF MEDICAL TECHNOLOGIST Work Phone: [facility] Comment on [...] Start: 07-08-2023 End: 07-08-2023 ambulatory DEVIN SAUL [facility] Start: 07-07-2023 End: 07-08-2023 ambulatory [facility] Start: 07-07-2023 End: 07-07-2023 ambulatory [facility] Start: 07-05-2023 End: 07-05-2023 ambulatory [facility] Start: 07-05-2023 Encounter for other preprocedural examination [facility] Start: 06-30-2023 End: 06-30-2023 ambulatory JAVAD DONATO Not Available Start: 04-13-2023 End: 04-13-2023 ambulatory LAILA LEIWS Facility:[facility] Start: 04-13-2023 End: 04-13-2023 Patient encounter procedure Laila Lewis PA-C Work Phone: [facility] Comment on above: Spinal stenosis, lum bar region with neurogenic claudication (Primary Dx); Bilateral hip joint arthritis Start: 01-28-2023 Chart abstracting Camron Mix MD Work Phone: Neurology Start: 12-17-2022 End: 12-17-2022 Patient encounter procedure II Javad Donato Work Phone: [facility] Work Phone: Start: 12-17-2022 End: 12-17-2022 ambulatory SIMONA Donato Work Phone: [facility] Work Phone: Start: 12-17-2022 Encounter for other specified special examinations Erica Xiong [facility] Neuro[facility] Start: 12-17-2022 Office outpatient ne w 45 minutes Erica [facility] Neuro[facility] Start: 11-24-2022 End: 11-25-2022 ambulatory NARENDRANATH LAKSHMIPATHY . Facility: Start: 11-13-2022 End: 11-14-2022 ambulatory NARENDRANATH LAKSHMIPATHY . Facility:[facility] Start: 11-10-2022 End: 11-11-2022 ambulatory NARENDRANATH LAKSHMIPATHY . Facility:[facility] Start: 10-08-2022 End: 10-09-2022 ambulatory NARENDRANATH LAKSHMIPATHY . Facility:[facility] Start: 09-10-2022 End: 09-11-[address] ANTIONE HAWTHORNE . Facility:[facility] Start: 08-13-2022 Encounter for preprocedural cardiovascular examination DR ANTIONE HAWTHORNE . [facility] Start: 08-11-2022 End: 08-11-2022 ambulatory [...] encounter procedure Mac SANTIAGO [facility] Start: 05-19-2022 End: 05-20-[address] ANTIONE HAWTHORNE . Facility:[facility] Start: 05-05-2022 End: 05-05-[address] ANTIONE HAWTHORNE . Facility:[facility] Start: 04-28-2022 End: 04-29-[address] ANTIONE HAWTHORNE . Facility:[facility] Start: 04-27-2022 End: 05-14-[address] JAVAD DONATO Facility:[facility] Start: 02-16-2022 End: 02-16-2022 Patient encounter procedure Mac Sachin SANTIAGO [facility] Procedures Date Procedure Procedure Detail Performing Clinician Start: 06-12-2024 Radex hip unilateral with pelvis 2-3 views Jose Hernández PRESSURE TESTER Work Phone: Start: 04-06-2024 Radex hip unilateral with pelvis 2-3 views Charissa Blair DO Work Phone: Start: 08-09-2023 Radex hip unilateral with pelvis 2-3 views Jose Hernández PRESSURE TESTER Work Phone: Start: 12-17-2022 X-ray of lumbar spin e, six views including bending views II Javad Donato Work Phone: Start: 04-22-2021 Urodynamic studies Patr alex SANTIAGO Start: 11-26-2020 Cystoscopy Mac KAPADIA Start: 07-12-2017 Colonoscopy Nagi hernandez PT Work Phone: Start: 06-28-2009 Vasectomy Mac KAPADIA Start: 06-28-1966 Appendectomy Mac KAPADIA Carpal tunnel syndro me (disorder) Mac SANTIAGO Colonoscopy Mac SANTIAGO Repair of joint of r ight hip Mac SANTIAGO Plan of Treatment Date Care Activity Detail Author Start: 05-18-2033 DTaP,Tdap and Td Vaccines (2 - Td or Tdap) DTaP,Tdap and Td Vaccines (2 - Td or Tdap) [facility] Start: 07-12-2027 Screening for malign ant neoplasm of colon [facility] Start: 04-04-2025 Adult BMI Screening Adult BMI Screen ing [facility] Start: 04-04-2025 Tobacco Screening Tobacco Screening [facility] Start: 07-03-2024 End: 07-03-2024 Patient encounter procedure 07/03/2024 10:30 AM EST Office Visit [facility] [address] [place] [address] Jose Hernández, PRESSURE TESTER [address] [place] [address] [facility] Start: 06-20-2024 End: 06-20-2024 ambulatory 06/20/2024 7:00 AM EST Evaluation [facility] [address] [place] [address] Nagi Plata, PT [address] [place], [place] [phone] [facility] Start: 06-14-2024 End: 06-14-2024 Patient encounter procedure 06/14/2024 9:30 AM EST Office Visit [facility] [address] [place], [place] [address] Javad Donato MD [address] [place] [address] [facility] Start: 06-12-2024 End: 06-12-2024 Patient encounter procedure [facility] Comment on above: Arrived Start: 05-17-2024 Medicare Annual Well ness (AWV) Medicare Annual Wellness (AWV) [facility] Start: 05-16-2024 End: 05-16-2024 Patient encounter procedure [facility] Comment on above: Arrived Start: 05-11-2024 End: 05-11-2024 Patient encounter procedure 05/11/2024 10:45 AM EST Office Visit [facility] [address] [place] [phone] Charissa Blair, DO [address] [place] [address] [facility] Start: 05-09-2024 End: 05-09-2024 Patient encounter procedure 05/09/2024 10:30 AM EST Office Visit [facility] [address] [place] [address] Charissa Blair, DO [address] [place] [address] [facility] Start: 05-03-2024 End: 05-03-2024 Admission to same day surgery center 05/03/2024 7:45 AM EST - 05/03/2024 10:00 AM EST Surgery [facility] [address] [place] [id number] Charissa Blair, DO [address] [place] [address] REPLACEMENT TOTAL JOINT HIP [67618 (CPT )] [facility] Comment on above: REPLACEMENT TOTAL BEKA INT HIP [56330 (CPT )] Start: 05-03-2024 End: 05-03-2024 Arthrp acetblr/prox fem prostc agrft/algrft REPLACEMENT TOTAL JOINT HIP left hip degenerative joint disease 05/03/2024 7:45 AM EST [facility] [facility] Start: 05-03-2024 Subsequent hospital visit by physician 05/03/2024 7:45 AM EST Hospital Encounter [facility] [address] [place] [address] Charissa Blair, DO [address] [place] [address] [facility] Start: 05-03-2024 End: 05-03-2024 Patient encounter procedure 05/03/2024 7:30 AM EST Procedure Visit [facility] Charissa Blair, DO [address] [place] [address] [facility] Start: 04-24-2024 End: 03-06-2025 Crossmatch RBC Crossmatch RBC Blood Bank Routine Preop examination Hypertension, unspecified type Expected: 04/24/2024, Expires: 03/06/2025 [facility] Comment on above: Expected: 04/24/2024 , Expires: 03/06/2025 Start: 04-24-2024 End: 03-06-2025 Type and screen(includes indirect phill) Type and screen(includes indirect phill) Blood Bank Routine Preop examination Hypertension, unspecified type Expected: 04/24/2024, Expires: 03/06/2025 [email or web address] Work Phone: Comment on above: Expected: 04/24/2024 , Expires: 03/06/2025 Start: 04-17-2024 End: 04-17-2024 Patient encounter procedure [facility] Comment on above: Arrived Start: 04-06-2024 End: 04-06-2024 Patient encounter procedure [facility] Comment on above: Left hip pain; Arthritis of left hip Start: 02-27-2024 Influenza vaccination P [facility] Start: 09-20-2023 End: 09-20-2023 Patient encounter procedure 09/20/2023 10:30 AM EDT Office Visit [facility] [address] [place] [phone] Jose Hernández, PRESSURE TESTER [address] [place] [address] [facility] Start: 08-27-2023 End: 08-27-2023 ambulatory 08/27/2023 9:30 AM EST Treatment [facility] [address] [place] [phone] Nagi Plata, PT [address] [place] [address] [facility] Start: 08-23-2023 End: 08-23-2023 ambulatory 08/23/2023 9:30 AM EST Treatment [facility] [address] [place] [phone] Jeanna Mendiola, CHIEF MEDICAL TECHNOLOGIST [address] [place] [address] [facility] Start: 08-20-2023 End: 08-20-2023 ambulatory 08/20/2023 9:30 AM EST Treatment [facility] [address] [place] [phone] Jeanna Mendiola, CHIEF MEDICAL TECHNOLOGIST [address] [place] [address] [facility] Start: 08-16-2023 End: 08-16-2023 ambulatory 08/16/2023 9:30 AM EST Treatment [facility] [address] [place] [address] Jeanna Mendiola, CHIEF MEDICAL TECHNOLOGIST [address] [place] [address] [facility] Start: 08-13-2023 End: 08-13-2023 ambulatory 08/13/2023 9:30 AM EST Treatment [facility] [address] [place] [phone] Nagi Plata, PT [address] [place] [address] [facility] Start: 08-09-2023 End: 08-09-2023 Patient encounter procedure 08/09/2023 1:00 PM EST Office Visit [facility] [address] [place] [phone] Jose Hernández, PRESSURE TESTER [address] [place] [address] [facility] Start: 08-09-2023 End: 08-09-2023 ambulatory [facility] Comment on above: Arrived Start: 08-06-2023 End: 08-06-2023 ambulatory 08/06/2023 9:30 AM EST Treatment [facility] [address] [place] [phone] Jeanna Mendiola, CHIEF MEDICAL TECHNOLOGIST [address] [place] [address] [facility] Start: 08-02-2023 End: 08-02-2023 ambulatory [facility] Comment on above: Arrived Start: 02-26-2023 Influenza vaccination C [facility] Start: 06-28-2022 ADVANCE DIRECTIVE DISCUSSION ADVANCE DIRECTIVE DISCUSSION [facility] Start: 06-28-2022 DEPRESSION ASSESSMENT DEPRESSION ASS ESSMENT [facility] Start: 2019 Abdominal aortic aneurysm screening Abdominal Aortic Aneurysm (AAA) Screen [facility] Start: 07-07-2019 Fall Risk Screening Fall Risk Screen ing [facility] Start: 2019 PNEUMOCOCCAL: 65+ (1 - PCV) PNEUMOCOCCAL: 65+ (1 - PCV) [facility] Start: 07-08-2015 Administration of varicella zoster vaccine Zoster (Shingles) Vaccine (2 of 3) [facility] Start: 07-08-2015 Shingrix Vaccine (2 of 3) Shingrix Vaccine (2 of 3) [facility] Start: 2014 RSV Vaccine (1 - 1-d ose 60+ series) RSV Vaccine (1 - 1-dose 60+ series) [facility] Start: 01-02-2004 SHINGRIX VACCINE (1 of 2) SHINGRIX VACCINE (1 of 2) [facility] Start: 1999 COLOGUARD (FIT-DNA) COLOGUARD (FIT-D NA) [facility] Start: 1999 Colonoscopy COLONOSCOPY [facility] Start: 1999 COLORECTAL CANCER SCREENING COLORECTAL CANCER SCREENING [facility] Start: [address] COLONOGRAPHY [facility] Start: 1999 DIABETES SCREEN DIABETES SCREEN [facility] Start: 1999 Diabetes Screening Diabetes Screenin g [facility] Start: 1999 FECAL OCCULT BLOOD FECAL OCCULT BLOO D [facility] Start: 1999 SIGMOIDOSCOPY SIGMOIDOSCOPY [facility] Start: 1989 Lipid 1996 panel - S velma or Plasma Lipid Screening [facility] Start: 1989 LIPID SCREEN LIPID SCREEN [facility] Start: 1973 Urine microalbumin profile [facility] Start: 01-02-1972 Adult BMI Follow Up Plan Adult BMI Follow Up Plan [facility] Start: 01-02-1972 HEPATITIS C SCREENING HEPATITIS C SC REENING [facility] Start: 1966 Depression Screening Depression Scre ening [facility] Start: 1954 COVID-19 VACCINE (#1) COVID-19 VACCI NE (#1) [facility] Start: 1954 Abdominal Aortic Aneurysm Screening Abdominal Aortic Aneurysm Screening [facility] Start: 1954 Medicare Annual Well ness Visit Medicare Annual Wellness Visit [facility] Start: 1954 Screening for malign ant neoplasm of colon [facility] End: 05-12-2024 XR HIP BILATERAL 5V PEL/AP/LAT EACH HIP XR HIP BILATERAL 5V PEL/AP/LAT EACH HIP Radiology Routine Bilateral hip joint arthritis 1 Occurrences starting 04/13/2023 until 05/12/2024 [facility] Work Phone: Comment on above: 1 Occurrences starti ng 04/13/2023 until 05/12/2024 [facility] Immunizations Immunization Date Immunization Notes Care Provider Estevan sorto 05-18-2023 RSV, recombinant, protein subunit RSVpreF, adjuvant reconstitu, 120mcg/0.5mL, PF (Arexvy) Nagi Boni PT Work Phone: [facility] Work Phone: 05-18-2023 tetanus toxoid, redu sri diphtheria toxoid, and acellular pertussis vaccine, adsorbed Nagi Boni PT Work Phone: [facility] 05-17-2023 Influenza, High-dose Seasonal, Quadrivalent, Preservative Free Nagi Boni PT Work Phone: [facility] 05-17-2023 influenza virus vaccine, unspecified formulation Ngai Boni PT Work Phone: [facility] 04-03-2022 influenza, high dose seasonal, preservative-free Nagi Boni PT Work Phone: [facility] 04-03-2022 Influenza, High-dose Seasonal, Quadrivalent, Preservative Free Nagi Boni PT Work Phone: [facility] 04-03-2022 influenza virus vaccine, unspecified formulation Laila Lewis PA-C Work Phone: [facility] 05-21-2020 influenza virus vaccine, unspecified formulation Mac SANTIAGO [facility] 05-21-2020 influenza, injectabl e, quadrivalent, contains preservative Nagi Boni PT Work Phone: [facility] 05-21-2020 pneumococcal conjuga te vaccine, 13 valent Nagi Boni PT Work Phone: [facility] 04-10-2020 influenza virus vaccine, unspecified formulation Macmichelle SANTIAGO [facility] 05-03-2019 influenza, injectabl e, madin sancho canine kidney, preservative free Nagi Boni PT Work Phone: [facility] 05-03-2019 pneumococcal polysaccharide vaccine, 23 valent Nagi Boni PT Work Phone: [facility] 05-02-2018 influenza virus vaccine, unspecified formulation Macmichelle SANTIAGO [facility] 05-02-2018 seasonal influenza, intradermal, preservative free Nagi Boni PT Work Phone: [facility] 06-07-2017 influenza virus vaccine, unspecified formulation Macmichelle SANTIAGO [facility] 06-07-2017 influenza, injectabl e, quadrivalent, contains preservative Nagi Boni PT Work Phone: [facility] 05-13-2015 zoster vaccine, live Nagi Sp collado PT Work Phone: [facility] 05-13-2015 zoster vaccine, unspecified formulation [facility] [address] [facility] NEGATED: Highlighted row has not occurred!08-18-2021 SARS-CoV-2 (COVID-19) Ad26 vaccine, recombinant Mac SANTIAGO [facility] Payers Date Payer Category Payer Self-pay 2021 Private Health Insurance [employer] [id number] 2019 Unknown [id number] [id number]. [id number] 2018 Medicare [id number]. 1.13.159.2. [id number] 1959 Medicare [id number] 1959 Unknown [id number] 1954 Unknown [id number] 2.16840.1.865761.3.579.2. 593 1954 Unknown [id number] 2.16840.1.641924.3.579.2. 593 1954 Unknown [id number] 2.16840.1.574386.3.579.2. 593 1954 Unknown [id number] 2.16840.1.419764.3.579.2. 593 1954 Unknown [id number] 2.16.840.1.851427.3.579.2. 593 1954 Unknown [id number] 2.16.840.1.185691.3.579.2. 593 1954 Unknown [id number] 2.16.840.1.815281.3.579.2. 593 1954 Unknown [id number] 2.16.840.1.251271.3.579.2. 593 1954 Unknown [id number] 2.16.840.1.642202.3.579.2. 593 1954 Unknown [id number] 2.16.840.1.001037.3.579.2. 593 1954 Unknown [id number] 2.16.840.1.497004.3.579.2. 593 1954 Unknown [id number] 2.16.840.1.867696.3.579.2. 593 1954 Unknown [id number] 2.16.840.1.692087.3.579.2. 593 1954 Unknown [id number] 2.16840.1.861449.3.579.2. 593 1954 Unknown [id number] 2.16.840.1.109417.3.579.2. 593 1954 Unknown [id number] 2.16840.1.326989.3.579.2. 727 1954 Unknown [id number] 2.840.1.875652.3.579.2. 727 1954 Unknown [id number] 2.840.1.037516.3.579.2. 128 1954 Unknown [id number] 2.840.1.858951.3.579.2. 1285 1954 Unknown [id number] 2.840.1.816425.3.579.2. 1285 1954 Unknown [id number] 2.840.1.690886.3.579.2. 128 1954 Unknown [id number] 2.840.1.213297.3.579.2. 128 1954 Unknown [id number] 2.840.1.634397.3.579.2. 1285 1954 Unknown [id number] 2.840.1.845003.3.579.2. 1285 1954 Unknown [id number] 2.840.1.961029.3.579.2. 1285 1954 Unknown [id number] 2.16.840.1.966764.3.579.2. 1286 1954 Unknown [id number] 2.16.840.1.769388.3.579.2. 128 1954 Unknown [id number] 2.16.840.1.832061.3.579.2. 1258 1954 Unknown [id number] 2.16.840.1.207770.3.579.2. 1258 1954 Unknown [id number] 2.16.840.1.859329.3.579.2. 1258 1954 Unknown [id number] 2.16.840.1.956510.3.579.2. 1258 1954 Unknown [id number] 2..840.1.240244.3.579.2. 1258 1954 Unknown [id number] 2.840.1.263353.3.579.2. 1258 1954 Unknown [id number] 2.840.1.789599.3.579.2. 1258 1954 Unknown [id number] 2.840.1.561519.3.579.2. 1258 1954 Unknown [id number] 2.840.1.993678.3.579.2. 1258 1954 Unknown [id number] 2.16840.1.841676.3.579.2. 1258 1954 Unknown [id number] 2.16.840.1.150303.3.579.2. 1258 1954 Unknown [id number] 2.16.840.1.831297.3.579.2. 1258 1954 Unknown [id number] 2.16.840.1.846337.3.579.2. 1258 1954 Unknown [id number] 2.16.840.1.889558.3.579.2. 1259 1954 Unknown [id number] 2.16.840.1.525429.3.579.2. 1258 1954 Unknown [id number] 2.16.840.1.875231.3.579.2. 125 1954 Unknown [id number] 2.16.840.1.597852.3.579.2. 1258 1954 Unknown [id number] 2.16.840.1.651195.3.579.2. 1258 1954 Unknown [id number] 2.16.840.1.451529.3.579.2. 1258 1954 Unknown [id number] 2.16.840.1.934405.3.579.2. 1258 1954 Unknown [id number] 2.16.840.1.059675.3.579.2. 1258 1954 Unknown [id number] 2.16.840.1.249854.3.579.2. 1258 1954 Unknown [id number] 2.16.840.1.950047.3.579.2. 1258 1954 Unknown [id number] 2.16.840.1.311472.3.579.2. 1258 1954 Unknown [id number] 2.16.840.1.562206.3.579.2. 1258 1954 Unknown [id number] 2.16.840.1.676464.3.579.2. 125 1954 Unknown [id number] 2.16.840.1.791788.3.579.2. 1258 1954 Unknown [id number] 2.16.840.1.102203.3.579.2. 1258 1954 Unknown [id number] 2.16.840.1.249753.3.579.2. 1259 Unknown [id number] 2.16.840.1.936629.3.579.2. 531 Social History Date Type Detail Facility Start: 05-05-2021 End: 02-17-2024 Ex-smoker (finding) [facility] Start: 04-15-2023 End: 05-10-[address] [facility] Start: 1955 Sex Assigned At Male [facility] Tobacco smoking stat [facility] Tobacco smoking consumption unknown [facility] Start: 02-02-2023 Gender identity Identifies as male gender (finding) [facility] Start: 02-02-2023 Sexual orientation Heterosexual (finding) [facility] Start: 06-28-1967 End: 09-27-1975 History of tobacco use Current smoker [facility] Work Phone: Start: 06-28-1967 End: 09-27-1975 History of tobacco use Cigarette Smoker [facility] Work Phone: Start: 04-15-2023 End: 05-10-2023 History of Social function [facility] Adult Depression Screening Assessment 1 [facility] Start: 01-11-2023 End: 02-17-2024 Tobacco use and exposure Smokeless tobacco non-user [facility] Start: 07-12-2023 End: 05-09-2024 Alcohol intake Current drinker of alcohol (finding) [facility] Within the last year , have you been afraid of your partner or ex-partner? No [facility] Do you belong to any clubs or organizations such as mandaen groups, unions, fraternal or athletic groups, or [...] - these days [OSQ] To some extent [facility] (I/We) worried john er (my/our) food would run out before (I/we) got money to buy more. Never true [facility] Start: 05-28-2023 Tobacco Comment [address] [facility] Start: 04-04-2024 Alcohol Comment rare [facility] Start: 02-17-[address] [facility] Start: 02-17-2024 Alcohol Comment Social drinker with occasional drink at home. [facility] Medical Equipment Procedure Code Equipment Code Equipment Origin al Text Equipment Identifier Dates Shell Actb 56mm Hip 4 Hl Clr Cd [place] G7 F Hmsphr - Sna - [id number] Start: 07-07-2023 Liner Actb 36mm F Vivacit-E Lum G7 Hip Strl Lf - [id number] Start: 07-07-2023 Stem Fem 129d 4 06/10 45.5mm Fitmore Protasul-64 Hip Rgh - [id number] Start: 07-07-2023 Maryann [employer] Femoral Head 36mm [id number] Start: 07-07-2023 Screw Bn 30mm 6. [address] Actb Seven Trlg Strl Rpl [id number] 29 - [id number] Start: 07-07-2023 Screw Bn 30mm 6. [address] Actb Seven Trlg Strl Rpl [id number] 29 - [id number] Start: 07-07-2023 Screw Bn 30mm 6. [address] Actb Seven Trlg Strl Rpl [id number] 29 - [id number] Start: 07-07-2023 Functional Status Date Assessment Result Facility 02-07-2024 Functional Status N/A [facility] 06-01-2022 Functional Status N/A [facility] 02-16-2022 N/A [facility] Clinical Notes 02-16-2022 to 06-12-2024 Jose Hernández, PRESSURE TESTER - 06/12/2024 10:30 AM Sandy Blair, - 05/16/2024 11:30 AM Sandy Blair, DO - 05/09/2024 10:30 AM ESTTelephone Encounter - Su Alexander - 05/04/2024 9:38 AM EST Note Date & Type Note Facility 06-12-2024 History of Present illness Narrative Images from the original note were not included. HISTORY OF PRESENT ILLNESS: POST OP PT Lawson Vela is an 69 y.o. @ male. EST PT WITH DR BLAIR- S/P LT NASH 05/03/24 (5WKS 5DAYS) - DOING WELL- PT IS NOT CURRENTLY IN PHYSICAL THERAPY; DOES HEP-USES CANE TO AMBULATE- PT IS WONDERING WHEN HE CAN START USING HOT TUB; HELPS WITH LBP- PT IS ALSO WONDERING IF HE CAN DO SOME AQUATIC THERAPY ON HIS OWN- GOOD ROM/STRENGTH- SOME LEG SWELLING- +HYDROCODONE PER PCP XRAY LT HIP TODAY EPIC 06/12/24 REVIEW OF SYSTEMS: General: Denies fever, fatigue or weight loss Lungs: Denies SOB Cardio: Denies chest pain GI: Denies indigestion or abdominal pain Neuro: Denies numbness or tingling, denies new onset paralysis Musculoskeletal: ( see note) PHYSICAL EXAM: Left Hip Exam Tenderness The patient is experiencing no tenderness. Muscle Strength Abduction: 5/5 Adduction: 5/5 Flexion: 5/5 Other Erythema: absent Scars: present Sensation: normal Pulse: present Comments: Small scab over proximal aspect of incision. No erythema or drainage noted. XR hip left 2 or 3 views Imaging Result: 06/12/2024: AP and lateral of left hip showed acceptable position and alignment of left total hip arthroplasty. There was no evidence of loosening of the acetabular cup or femoral stem. Femoral head was well centered in the acetabular liner without evidence of asymmetric or accelerated wear. There was no gross evidence of fracture and/or dislocation. Impression: Unremarkable left total hip arthroplasty. Jose Hernández SUPERVISOR TELEVISION [employer] REPAIR-PRODUCTION PROOFREADER XR hip left 2 or 3 views Imaging Result: 06/12/2024: AP and lateral of left hip showed acceptable position and alignment of left total hip arthroplasty. There was no evidence of loosening of the acetabular cup or femoral stem. Femoral head was well centered in the acetabular liner without evidence of asymmetric or accelerated wear. There was no gross evidence of fracture and/or dislocation. Impression: Unremarkable left total hip arthroplasty. Jose Hernández SUPERVISOR TELEVISION [employer] REPAIR-PRODUCTION PROOFREADER Procedures Orders Placed This Encounter Procedures XR hip left 2 or 3 views Order Specific Question: Reason for exam: Answer: PAIN Ambulatory referral to Physical Therapy Work on gait. 6 weeks s/p LT NASH Standing Status: Future Standing Expiration Date: 12/11/2024 Referral Priority: Routine Referral Type: Rehabilitation - Outpatient Referral Reason: Specialty Services Required Referred to Provider: Nagi [facility] Requested Specialty: Physical Therapy Number of Visits Requested: 1 ASSESSMENT: ICD-10-CM 1. S/P total left hip arthroplasty Z96.642 Ambulatory referral to Physical Therapy 2. Left hip pain M25.552 XR hip left 2 or 3 views PLAN: I reviewed xray with patient which showed stable LT NASH. He is to avoid pool or hot tub at this time as he still has scab over proximal aspect of incision. He will work with PT on ambulation. Follow up in 2 weeks for RCK. If scab is healed he may do aquatic therapy. Questions answered in laymen terms at the bedside. The diagnosis, home exercise plan and any ongoing restrictions/ recommendations reviewed. If unable to be reached in office, I recommend evaluation at nearest Emergency Room if any symptoms worsened or new symptoms develop for requiring urgent evaluation. documented in this encounter [facility] 05-16-2024 History of Present illness Narrative Images from the original note were not included. HISTORY OF PRESENT ILLNESS: Lawson Vela is an 69 y.o. @ male. Follow up LT NASH-wound check LT hip: wound check 2 weeks s/p LT NASH (05/03/24) Walking with walker. He notes more pain with this hip replacement compared to the other. Denies fever. Denies drainage for 1 week. Leaving open to air. He has been climbing stairs 1-2 times per day. Admits constipation, taking stool softener bid and miralax prn with relief. PT coming to the house. Taking oxy at HS and TYL. Taking muscle relaxer for his back. He is not taking ASA. Pt reports that when he woke up from surgery he had pain in his :T shoulder, states he woke up during the surgery and was fighting against the restraints. It is feeling better. MEDICATION: Current Outpatient Medications on File Prior to Visit Medication Sig Dispense Refill amoxicillin (Amoxil) 500 MG tablet 4 tabs PO once 30-60 mins before procedure with food 4 tablet 3 ascorbic acid (Vitamin C) 500 MG chewable tablet 1 (one) time each day at the same time. B Complex Vitamins (vitamin B complex) tablet as directed Orally cholecalciferol (Vitamin D3) 25 MCG (1000 UT) tablet 1 (one) time each day at the same time. cyanocobalamin (Vitamin B-12) 100 MCG tablet as directed Orally finasteride (Proscar) 5 MG tablet Take 5 mg by mouth in the morning. HYDROcodone-acetaminophen ([place]) 5-325 MG tablet Take 1 tablet by mouth every 6 (six) hours if needed for severe pain 20 tablet 0 irbesartan-hydroCHLOROthiazide (Avalide) 150-12.5 MG tablet Take 1 tablet by mouth Daily 100 tablet 0 magnesium 30 MG tablet Take 30 mg by mouth in the morning and 30 mg before bedtime. meloxicam (Mobic) 15 MG tablet Take 1 tablet (15 mg) by mouth Daily Take with food 100 tablet 3 Multiple Vitamin (Multi Vitamin) tablet 1 (one) time each day at the same time. [] oxyCODONE (Roxicodone) 5 MG immediate release tablet Take 1 tablet (5 mg) by mouth every 6 (six) hours if needed for moderate pain for up to 5 days 20 tablet 0 sildenafil (Viagra) 100 MG tablet 1 (one) time each day at the same time. solifenacin (VESIcare) 10 MG tablet 1 (one) time each day at the same time. tamsulosin (Flomax) 0.4 MG 24 hr capsule Take 0.4 mg by mouth in the morning and 0.4 mg before bedtime. tiZANidine (Zanaflex) 4 MG tablet Take 1 tablet (4 mg) by mouth Daily 30 tablet 2 zinc gluconate 50 MG tablet 1 (one) time each day at the same time. No current facility-administered medications on file prior to visit. MEDICAL HISTORY: Past Medical History: Diagnosis Date Allergic rhinitis BPH (benign prostatic hyperplasia) CTS (carpal tunnel syndrome) DDD (degenerative disc disease), cervical DDD (degenerative disc disease), lumbar Fracture of wrist GERD (gastroesophageal reflux disease) HTN (hypertension) ([facility]) Lumbosacral disc disease Osteoarthritis ALLERGIES: Allergies Allergen Reactions Carvedilol Other Reaction(s): dizziness VITALS: Visit Vitals Smoking Status Former PHYSICAL EXAM: Ortho Exam LEFT HIP Incision healing, no erythema, no drainage, clean and dry Ambulating with walker ASSESSMENT: ICD-10-CM 1. S/P total left hip arthroplasty Z96.642 PLAN: I discussed with the patient the general recommendation for the use of prophylactic antibiotics prior to dental work after joint replacement. I advised the patient that the use of prophylactic antibiotics for dental work is a controversial topic. I currently have recommended that prophylactic antibiotics be used for 2 years postop and I did advise the patient that the guidelines and recommendations may change on this in the future. Discussed restrictions and expectations. Discussed physical therapy, recommend holding off until 6 weeks, he discussed water therapy at that point, will discuss at that time. No hot tub for 2-3 months. I recommend ASA for 2 more weeks. Follow up in one month with xrays. Dr. Blair obtained history and examined the patient, I am acting as scribe for Dr. Blair/demi I did advise the patient that I am leaving my current practice to practice in another state but my colleagues are willing to see him if he has any problems or concerns or if he desires a referral to another sales and service specialist we would be happy to make referral, he states he would like to continue his care here. Boni Blair D.O. documented in this encounter [facility] 05-09-2024 History of Present illness Narrative Images from the original note were not included. HISTORY OF PRESENT ILLNESS: Lawson Vela is an 69 y.o. @ male. Follow up LT NASH LT hip: 1st po 6 days s/p LT NASH (05/03/24) Walking with walker. He notes more pain with this hip replacement compared to the other. He notes he has has had some bleeding yesterday. Denies fever. Admits constipation, taking stool softener and miralax. PT coming to the house, Alpa told him to take it easy and his incision drained yesterday. Taking oxy and TYL. Taking muscle relaxer for his back. Taking ASA and Fe MEDICATION: Current Outpatient Medications on File Prior to Visit Medication Sig Dispense Refill amoxicillin (Amoxil) 500 MG tablet 4 tabs PO once 30-60 mins before procedure with food 4 tablet 3 ascorbic acid (Vitamin C) 500 MG chewable tablet 1 (one) time each day at the same time. B Complex Vitamins (vitamin B complex) tablet as directed Orally cholecalciferol (Vitamin D3) 25 MCG (1000 UT) tablet 1 (one) time each day at the same time. cyanocobalamin (Vitamin B-12) 100 MCG tablet as directed Orally [] ferrous sulfate (Fe Tabs) 325 (65 Fe) MG EC tablet Take 1 tablet (325 mg) by mouth in the morning. Take with meals. Do not crush, chew, or split.. 30 tablet 0 finasteride (Proscar) 5 MG tablet Take 5 mg by mouth in the morning. HYDROcodone-acetaminophen ([place]) 5-325 MG tablet Take 1 tablet by mouth every 6 (six) hours if needed for severe pain 20 tablet 0 irbesartan-hydroCHLOROthiazide (Avalide) 150-12.5 MG tablet Take 1 tablet by mouth Daily 100 tablet 0 magnesium 30 MG tablet Take 30 mg by mouth in the morning and 30 mg before bedtime. meloxicam (Mobic) 15 MG tablet Take 1 tablet (15 mg) by mouth Daily Take with food 100 tablet 3 Multiple Vitamin (Multi Vitamin) tablet 1 (one) time each day at the same time. oxyCODONE (Roxicodone) 5 MG immediate release tablet Take 1 tablet (5 mg) by mouth every 6 (six) hours if needed for moderate pain for up to 5 days 20 tablet 0 sildenafil (Viagra) 100 MG tablet 1 (one) time each day at the same time. solifenacin (VESIcare) 10 MG tablet 1 (one) time each day at the same time. tamsulosin (Flomax) 0.4 MG 24 hr capsule Take 0.4 mg by mouth in the morning and 0.4 mg before bedtime. tiZANidine (Zanaflex) 4 MG tablet Take 1 tablet (4 mg) by mouth Daily 30 tablet 2 zinc gluconate 50 MG tablet 1 (one) time each day at the same time. [DISCONTINUED] oxyCODONE (Roxicodone) 5 MG immediate release tablet Take 1 tablet (5 mg) by mouth every 6 (six) hours if needed for moderate pain for up to 5 days 20 tablet 0 No current facility-administered medications on file prior to visit. MEDICAL HISTORY: Past Medical History: Diagnosis Date Allergic rhinitis BPH (benign prostatic hyperplasia) CTS (carpal tunnel syndrome) DDD (degenerative disc disease), cervical DDD (degenerative disc disease), lumbar Fracture of wrist GERD (gastroesophageal reflux disease) HTN (hypertension) ([facility]) Lumbosacral disc disease Osteoarthritis ALLERGIES: Allergies Allergen Reactions Carvedilol Other Reaction(s): dizziness VITALS: Visit Vitals Smoking Status Former PHYSICAL EXAM: Ortho Exam LEFT HIP Ambulating with cane Incision healing dressings intact and dry without stain new bandage applied ASSESSMENT: ICD-10-CM 1. S/P total left hip arthroplasty Z96.642 PLAN: I recommend cont tedhose and ASA for additional 3 wks Reviewed Hip dislocation precautions: no hip abduction until 6 weeks post op. Reminded to hold off non urgent dental appts for 6 months post op- and abx prophylaxis following: Questions answered in laymen terms at the bedside. The diagnosis, home exercise plan and any ongoing restrictions/ recommendations reviewed. If unable to be reached in office, I recommend evaluation at nearest Emergency Room if any symptoms worsened or new symptoms develop for requiring urgent evaluation. Follow up in one week for wound check. Dr. Blair obtained history and examined the patient, I am acting as scribe for Dr. Blair/demi Blair D.O. documented in this encounter [facility] 05-08-2024 Telephone encounter Note Post op pain rx refill. PDMP reviewed [facility] 05-08-2024 Miscellaneous Notes Post op pain rx refill. PDMP reviewed documented in this encounter [facility] 05-04-2024 Telephone encounter Note He already discharged and PT is meeting with him today. [facility] 05-04-2024 Miscellaneous Notes He already discharged and PT is meeting with him today. Maxine myrick that patient is being discharged today from his LT Hip replacement and would like us to call patient to let him know what he needs to do. Patient's phone number is [phone]. documented in this encounter [facility] 05-04-2024 Telephone encounter Note Maxine left that patient is being discharged today from his LT Hip replacement and would like us to call patient to let him know what he needs to do. Patient's phone number is [phone]. [facility] 05-02-2024 Telephone encounter Note Post op pain rx. PDMP reviewed [facility] 05-02-2024 Miscellaneous Notes Post op pain rx. PDMP reviewed documented in this encounter [facility] 04-17-2024 History of Present illness Narrative Images from the original note were not included. HPI surgical clearance Additional comments: Pt sched 05/03/24 for left hip replacement with Dr Blair at [facility] PAT completed Last edited by France Farah LPN on 04/17/2024 1:48 PM. Subjective Patient ID: Lawson Vela is a 69 y.o. male who presents for surgical clearance (Pt sched 05/03/24 for left hip replacement with Dr Blair at [facility]/PAT completed). Pt has had left hip pain Worsening Increased pain with weight bearing Current Outpatient Medications on File Prior to Visit Medication Sig Dispense Refill amoxicillin (Amoxil) 500 MG tablet 4 tabs PO once 30-60 mins before procedure with food 4 tablet 3 ascorbic acid (Vitamin C) 500 MG chewable tablet 1 (one) time each day at the same time. B Complex Vitamins (vitamin B complex) tablet as directed Orally cholecalciferol (Vitamin D3) 25 MCG (1000 UT) tablet 1 (one) time each day at the same time. cyanocobalamin (Vitamin B-12) 100 MCG tablet as directed Orally ferrous sulfate (Fe Tabs) 325 (65 Fe) MG EC tablet Take 1 tablet (325 mg) by mouth in the morning. Take with meals. Do not crush, chew, or split.. 30 tablet 0 finasteride (Proscar) 5 MG tablet Take 5 mg by mouth in the morning. HYDROcodone-acetaminophen ([place]) 5-325 MG tablet Take 1 tablet by mouth every 6 (six) hours if needed for severe pain 20 tablet 0 irbesartan-hydroCHLOROthiazide (Avalide) 150-12.5 MG tablet Take 1 tablet by mouth Daily 100 tablet 0 magnesium 30 MG tablet Take 30 mg by mouth in the morning and 30 mg before bedtime. meloxicam (Mobic) 15 MG tablet Take 1 tablet (15 mg) by mouth Daily Take with food 100 tablet 3 Multiple Vitamin (Multi Vitamin) tablet 1 (one) time each day at the same time. sildenafil (Viagra) 100 MG tablet 1 (one) time each day at the same time. solifenacin (VESIcare) 10 MG tablet 1 (one) time each day at the same time. tamsulosin (Flomax) 0.4 MG 24 hr capsule Take 0.4 mg by mouth in the morning and 0.4 mg before bedtime. tiZANidine (Zanaflex) 4 MG tablet Take 1 tablet (4 mg) by mouth Daily 30 tablet 2 zinc gluconate 50 MG tablet 1 (one) time each day at the same time. [DISCONTINUED] amoxicillin (Amoxil) 500 MG tablet 4 tabs PO once 30-60 mins before procedure with food 4 tablet 3 [DISCONTINUED] HYDROcodone-acetaminophen ([place]) 5-325 MG tablet No current facility-administered medications on file prior to visit. I have reviewed and reconciled the history and medication list with the patient today. Allergies Allergen Reactions Carvedilol Other Reaction(s): dizziness Social History Tobacco Use Smoking status: Former Current packs/day: 0.00 Types: Cigarettes Quit date: 09/27/1975 Years since quittin.5 Smokeless tobacco: Never Tobacco comments: no way Vaping Use Vaping status: Never Used Substance Use Topics Alcohol use: Yes Alcohol/week: 8.0 - 12.0 standard drinks of alcohol Types: 2 Glasses of wine, 4 Cans of beer, 2 - 6 Standard drinks or equivalent per week Comment: Social drinker with occasional drink at home. Drug use: Not Currently Family History Problem Relation Name Age of Onset Cancer Mother Pamela Sosa Hypertension Father Past Medical History: Diagnosis Date Allergic rhinitis BPH (benign prostatic hyperplasia) CTS (carpal tunnel syndrome) DDD (degenerative disc disease), cervical DDD (degenerative disc disease), lumbar Fracture of wrist GERD (gastroesophageal reflux disease) HTN (hypertension) ([facility]) Lumbosacral disc disease Osteoarthritis Past Surgical History: Procedure Laterality Date APPENDECTOMY 1967 CARPAL TUNNEL RELEASE Left 05/29/2020 HIP ARTHROPLASTY NERVE BLOCK Bilateral 07/07/2022 L2-L5 RADIOFREQUENCY ABLATION 03/02/2023 Rt Lateral Cutaneous Iliohypogastric Nerve TOTAL HIP ARTHROPLASTY Right 07/07/2023 Dr Blair VASECTOMY 2010 Visit Vitals BP 128/68 Pulse 96 Ht 6' 1 Wt 285 lb SpO2 98% BMI 37.60 kg/m Smoking Status Former BSA 2.58 m Review of Systems Constitutional: Negative for appetite change, fatigue and unexpected weight change. Respiratory: Negative for cough, chest tightness and shortness of breath. Cardiovascular: Negative for chest pain, palpitations and leg swelling. Gastrointestinal: Negative for abdominal pain, nausea and vomiting. Genitourinary: Negative for difficulty urinating, hematuria and urgency. Objective Physical Exam Constitutional: General: He is not in acute distress. Appearance: He is normal weight. He is not ill-appearing. HENT: Head: Normocephalic. Cardiovascular: Rate and Rhythm: Normal rate and regular rhythm. Heart sounds: Normal heart sounds. No murmur heard. Pulmonary: Effort: Pulmonary effort is normal. Breath sounds: Normal breath sounds. Musculoskeletal: General: No swelling. Right lower leg: No edema. Left lower leg: No edema. Neurological: Mental Status: He is alert. Psychiatric: Mood and Affect: Mood normal. Thought Content: Thought content normal. Judgment: Judgment normal. Assessment/Plan Diagnoses and all orders for this visit: Primary osteoarthritis of left hip - The patient was interviewed and examined. The patient's medical history and medications were reviewed. Patient is to follow guidance of surgical team regarding all medications. There are no uncontrolled medical problems at present. Patient is active and has no chest pain or dyspnea. All available PAT was reviewed. There are no medical contraindications for surgery noted at this time, and the patient is considered low risk for the planned upcoming procedure. The patient is cleared for surgery without additional testing. Benign essential hypertension (CMS/HCC) Class 2 severe obesity with serious comorbidity and body mass index (BMI) of 37.0 to 37.9 in adult, unspecified obesity type (CMS/HCC) Follow up for As Previously Scheduled. documented in this encounter [facility] 04-12-2024 Telephone encounter Note OARRS reviewed, Rx sent into patient's pharmacy. [facility] 04-12-2024 Miscellaneous Notes OARRS reviewed, Rx sent into patient's pharmacy. Patient comment: Getting prepared for future surgery. documented in this encounter [facility] 04-12-2024 Telephone encounter Note Patient comment: Getting prepared for future surgery. [facility] 04-06-2024 History of Present illness Narrative HISTORY OF PRESENT ILLNESS: Lawson Vela is an 69 y.o. @ male. Chief complaint LT hip pain LT hip: here to discuss options. PREHAB completed prior to RT NASH (dos 07/07/23) LT hip pain for years and progressively worsened after having RT NASH 07/07/23 Walking unassisted today, occas uses a cane as needed. Pain anterior in groin, lateral and in buttocks. Can radiate to knee. Worse with prolonged WB. Taking oxycodone prn per Dr Donato. Taking meloxicam. Uses a hot tub. Occas N/T down leg. Admits clicking and stiffness. Sometimes wakes at HS, takes tizanidine at HS. Pain is 2/10 today, goes to 6/10 with prolonged WB. Has a hard time completing tasks, has to take multiple breaks. Prior tx: cane, norco, ice, heat, topicals, XR [facility] 11/01/23, hot tub, PREHAB/HEP Currently seeing pain management, Dr Ludwig [facility] for LBP MEDICATION: Current Outpatient Medications on File Prior to Visit Medication Sig Dispense Refill amoxicillin (Amoxil) 500 MG tablet 4 tabs PO once 30-60 mins before procedure with food 4 tablet 3 ascorbic acid (Vitamin C) 500 MG chewable tablet 1 (one) time each day at the same time. B Complex Vitamins (vitamin B complex) tablet as directed Orally cholecalciferol (Vitamin D3) 25 MCG (1000 UT) tablet 1 (one) time each day at the same time. cyanocobalamin (Vitamin B-12) 100 MCG tablet as directed Orally finasteride (Proscar) 5 MG tablet Take 5 mg by mouth in the morning. HYDROcodone-acetaminophen ([place]) 5-325 MG tablet irbesartan-hydroCHLOROthiazide (Avalide) 150-12.5 MG tablet Take 1 tablet by mouth Daily 100 tablet 0 magnesium 30 MG tablet Take 30 mg by mouth in the morning and 30 mg before bedtime. meloxicam (Mobic) 15 MG tablet Take 1 tablet (15 mg) by mouth Daily Take with food 100 tablet 3 Multiple Vitamin (Multi Vitamin) tablet 1 (one) time each day at the same time. sildenafil (Viagra) 100 MG tablet 1 (one) time each day at the same time. solifenacin (VESIcare) 10 MG tablet 1 (one) time each day at the same time. tamsulosin (Flomax) 0.4 MG 24 hr capsule Take 0.4 mg by mouth in the morning and 0.4 mg before bedtime. tiZANidine (Zanaflex) 4 MG tablet Take 1 tablet (4 mg) by mouth Daily 30 tablet 2 zinc gluconate 50 MG tablet 1 (one) time each day at the same time. No current facility-administered medications on file prior to visit. MEDICAL HISTORY: Past Medical History: Diagnosis Date Allergic rhinitis BPH (benign prostatic hyperplasia) CTS (carpal tunnel syndrome) DDD (degenerative disc disease), cervical DDD (degenerative disc disease), lumbar Fracture of wrist GERD (gastroesophageal reflux disease) HTN (hypertension) (CMS/HCC) Lumbosacral disc disease Osteoarthritis ALLERGIES: Allergies Allergen Reactions Carvedilol Other Reaction(s): dizziness VITALS: Visit Vitals Ht 6' 1 Wt 289 lb 3.2 oz BMI 38.16 kg/m Smoking Status Former BSA 2.6 m PHYSICAL EXAM: Ortho Exam LT HIP TENDERNESS: anterior, posterior Restricted ROM, not able to cross LT leg over RT ROM: 0 IR and 20 ER LEG LENGTH: left leg slightly shorter than the RT STRENGTH: 5/5 SKIN: intact, no lesions GAIT: limping IMAGING: November 01, 2023 x-rays from the [facility] office AP pelvis and lateral left hip demonstrate joint space narrowing left hip subchondral sclerosis and subchondral cyst formation consistent with arthritis. Presence of a right hip replacement in good position alignment. Impression: Advanced osteoarthritis left hip Amauri Blair D.O XR hip left 2 or 3 views Imaging Result: April 06, 2024 x-rays AP and lateral of the left hip demonstrate joint space collapse with subchondral sclerosis and osteophyte formation consistent with arthritis. Impression: Arthritis of the left hip Amauri Blair D.O. ASSESSMENT: ICD-10-CM 1. Left hip pain M25.552 XR hip left 2 or 3 views 2. Arthritis of left hip M16.12 ferrous sulfate (Fe Tabs) 325 (65 Fe) MG EC tablet PLAN: I advised the patient that I am resigning from my current practice in the near future than that he could be referred to another orthopedic surgeon hip his choosing or he can continue care with me for now. Postoperatively the patient would ultimately have to follow up with 1 of my mid-level providers or 1 of my orthopedic colleagues. The patient demonstrated understanding and stated he wanted to proceed with surgery with me. I discussed options of surgical and non surgical treatment. Including conservative treatment, use of non-steriodal anti inflammatories and the risk associated with this, Physical therapy, home exercise, weight control and injections. I also discussed with the patient operative options and the risks/benefits of each and chances for success/ failure. Discussion included but was not limited to the risk of infection, blood clot,nerve injury, leg length discrepancy, instability, blood clot, failure to improve and need for additional surgery and . I answered all of the patients questions. I recommend a LEFT Total hip replacement. The patient was instructed to kaitlin the operative site with the word Yes prior to arriving at the hospital and the patient verbalized an understanding. The patient wants to proceed and informed consent is obtained. Dr. Blair obtained history and examined the patient, I am acting as scribe for Dr. Blair/demi Blair D.O. documented in this encounter [facility] 04-04-2024 Instructions Trista Pelaez RN - 04/04/2024 9:00 AM EDT Preoperative Education Checklist- General Surgery date: 05/03/24 Surgery time: 745a Arrival time: 610a Please come back to the hospital between 04/24/24-05/02/24Wednesday-Wednesday 630a-430p for a blood draw. Stop at the registration desk upon arrival. The lab will give you a green blood band, bring that back with you day of surgery. 1. Bring a photo ID and your insurance card with you the day of surgery. You will check in at the main lobby of the [facility]- registration desk is straight ahead as soon as you walk in. Tell them you are here for surgery. 2. If you have a Living Will/Durable Power of [employer] for [employer] Care that is not on file here, please bring a copy the day of surgery. 3. Please shower/bathe the night before surgery with the provided soap or wipes. Do not shower the morning of surgery- you will do use wipes when you arrive here at the hospital before getting into your surgical gown. Do not shave the area of your procedure for 2 days prior to your surgery. 4. NO powder, lotion, perfume/cologne, aftershave, make-up, deodorant, or hair products after you have bathed. 5. NO nail paraguayan/acrylic on at least one finger. If you are having a hand, wrist or foot surgery then all nail paraguayan and artificial/acrylic nails must be removed from that hand or foot. 6. Avoid ALL Aspirin and non-steroidal anti-inflammatory drugs and certain vitamins (Ibuprofen, Advil, Aleve, Excedrin, Meloxicam, Celebrex, fish/krill oil, etc.) for 7 days prior to surgery as instructed by your surgeon and/or your prescribing doctor. Tylenol IS ALLOWED. If you are on Ticlid, Xarelto, Eliquis, Pradaxa, Plavix or Coumadin, please check with your prescribing doctor for instructions for when to stop them. 7. If you use an inhaler, continue to use it routinely. 8. Nothing to eat or drink (not even water, gum, mints, or hard candy!) AFTER midnight prior to your surgery. 9. Take only medications that you are instructed to on the morning of surgery with a TINY SIP OF WATER. 10. Choose a responsible adult that will be able to drive you home when you are discharged from your hospital stay for your surgery and can stay with you in your home for 24 hours after your procedure. You must NOT drive any vehicle or operate any machinery for 24 hours after surgery. 11. When you dress for your appointment, please wear loose fitting clothing that is appropriate to accommodate your surgical area procedure. BRING WITH YOU ANY DEVICES YOU MAY NEED: ILEANA hose, ice machine, sling/swath, brace or special shoe, oversized zip-up or button up shirt, CPAP machine if staying overnight. 12. Do NOT wear jewelry, watches, or any piercings or metal for surgery- leave these valuables and money at home. 13. Do NOT wear contact lenses for surgery- glasses are okay if needed. 14. The anesthesiologist will talk with you the day of surgery and will ask you to sign a Consent Form. 15. Refrain from smoking or any type of tobacco use for at least 8 hours and marijuana for 24 hours prior to arrival for your surgery. 16. If a GREEN BLOOD band is given to you, please bring it with you for the day of surgery. 17. Notify your surgeon if you develop any illness before your surgery. 18. If you are staying overnight, please DO NOT BRING your home medications with you. 19. If you have any questions prior to surgery, please call the Preadmission Testing office at [phone], Mon.-Fri. 7 a.m.-3 p.m. Leave a voicemail if needed. Pre-Surgery Instructions: Medication Instructions ascorbic acid (VITAMIN C) 500 mg tablet Stop taking 0 days prior to procedure BEE POLLEN ORAL Check with prescribing doctor for instructions cholecalciferol 1,000 units tablet Stop taking 0 days prior to procedure finasteride (PROSCAR) 5 mg tablet Stop taking 0 days prior to procedure folic acid/multivit-min/lutein (CENTRUM SILVER ORAL) Stop taking 0 days prior to procedure HYDROcodone-acetaminophen (NORCO) 5-325 mg per tablet Stop taking 0 days prior to procedure irbesartan-hydroCHLOROthiazide (AVALIDE) 150-12.5 mg per tablet Take morning of procedure magnesium 200 mg tablet Stop taking 0 days prior to procedure meloxicam (MOBIC) 7.5 mg tablet Stop taking 14 days prior to procedure selenium 200 mcg capsule Stop taking 0 days prior to procedure sildenafiL (VIAGRA) 100 mg tablet Stop taking 0 days prior to procedure solifenacin (VESICARE) 10 mg tablet Stop taking 0 days prior to procedure tamsulosin (FLOMAX) 0.4 mg capsule Stop taking 0 days prior to procedure tiZANidine (ZANAFLEX) 4 mg tablet Stop taking 0 days prior to procedure vitamin B complex (B COMPLEX 1 ORAL) Stop taking 0 days prior to procedure zinc gluconate 50 mg tablet Stop taking 0 days prior to procedure How to Avoid an Infection after Your Surgery Your doctor will give you specific instructions, but remember: -ALWAYS wash hands before caring for your incision. -No picking, scratching, or rubbing your incision. -No creams, lotion, powder, rubbing alcohol or hydrogen peroxide on the incision (can harm the tissue and slow healing). -Your doctor will give you specific instructions for what type of dressing you will need and how often it will need changed for infection purposes. -No tight clothing on incision. -Do not allow anyone to touch your incision unless they are cleaning, checking, or redressing it (be sure they wash their hands first). -No contact of your incision with pets; avoid sleeping with pets. -Take full course of antibiotic if prescribed for you after surgery- do not stop unless directed to by your physician. You may also be given an antibiotic prior to your surgery to help prevent surgical site infections. -Eat a healthy and varied diet including proteins, fruits, and vegetables to help promote wound healing and keep blood sugars under control if you are diabetic. -Smoking slows the healing process by decreasing the amount of oxygen in your blood that is needed for tissue healing. Try to avoid or stop smoking if possible. LOOK at your incision each morning and each night to check the progress of healing. Some soreness, numbness, itching and/or mild bruising around the incision is normal. Call your doctor if you notice any of the following: -Increased redness or hardening around the incision area. -Increased pain at the incision site. -Incision feels hot to the touch. -Swelling or pulling apart of the incision edges. -Yellow or green drainage or foul odor coming from the incision. -Bleeding from the incision (apply pressure as needed). -Fever higher than 101 degrees Fahrenheit for more than 4 hours. SHOWERING: Your doctor will give you specific instructions, but remember: -Be careful getting into and out of the shower. -Showers should be quick (5 minutes or less). -Use a clean washcloth to gently wash your incision with soap and water and pat the area dry with a clean towel. -No re-using wash cloths or towels; get a fresh one to clean your incision. -Do not soak in the bathtub, go swimming or use a hot tub (Jacuzzi), or perform activities where your incision is submerged in water or exposed to any fluids or substances until instructed by your doctor. -If your have the sticky strips (steri-strips) over the incision, it is OK to shower with them. Do not remove them. Let them fall off on their own. If you have a question, call your doctor s office. Go to the follow-up appointment with your doctor. documented in this encounter [facility] 04-04-2024 Miscellaneous Notes Patient called and educated to watch his YOLANDA education on total hip replacement prior to his PAT appointment next week. Patient verbalized understanding. documented in this encounter [facility] 04-04-2024 Nurse Note Patient called and educated to watch his YOLANDA education on total hip replacement prior to his PAT appointment next week. Patient verbalized understanding. [facility] 03-15-2024 History of Present illness Narrative No need for Prehab appt, has walker and has recently went through NASH, spoke with pt in parking lot, reviewed precautions good understanding. documented in this encounter [facility] 02-07-2024 Hospital Discharge instructions Patient Education 02/07/2024 [...] urethra. Follow these instructions at home: Take opbn-faf-orvcstx and prescription medicines only as told by [...] provider. Document Revised: 12/31/2021 Document Reviewed: 12/31/2021 [employer] Patient Education 2022 [employer]. Follow Up Care 08/30/2023 12:37:09 With:PAMELA BAER, Mac Stephenson, URL Address: [facility] [address], [place] [address]- When: Unknown [facility] [place] 02-07-2024 Note Patient Education Urology Benign Prostatic [...] Follow these instructions at home: ? Take lbut-fiw-sfwatfl and prescription medicines only as told by [...] develop side effec (more content not included)... [facility] 08-09-2023 History of Present illness Narrative Images [...] for requiring urgent evaluation. 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 Author Type: Physician [employer] Radio Operator Type: Progress Notes Filed: 04/15/2023 1:53 [...] walks or stands for long Intervention/Comfort measure: Medication;Reposition;Relaxation; Cold;Exercise;Heat;Massage;Pillow support;Positioning -- Comments: Pain management; steroid injections has been pain manegment but is not seeing any changes in the pain AMBULATORY STATUS: Independent Community Distances ANTIPLATELET OR ANTICOAGULATION STATUS: No PREVIOUS CONSERVATIVE TREATMENTS: See below Aquatic Therapy: 3 months ago which helped, will start it again. 3 days a week. Hydrocodone, Meloxicam Zanaflex, Lidocaine patches patient care manager Prior to ablation symptoms on left have [...] days 2 More (more content not included)... [facility] 04-13-2023 Instructions Laila Lewis PA-C - 04/13/2023 [...] which is considered uptake). Laila Lewis PA-C [phone] documented in this encounter [facility] 04-13-2023 History of Present illness Narrative [...] walks or stands for long Intervention/Comfort measure: Medication;Reposition;Relaxation; Cold;Exercise;Heat;Massage;Pillow support;Positioning -- Comments: Pain management; steroid injections has been pain manegment but is not seeing any changes in the pain AMBULATORY STATUS: Independent Community Distances ANTIPLATELET OR ANTICOAGULATION STATUS: No PREVIOUS CONSERVATIVE TREATMENTS: See below Aquatic Therapy: 3 months ago which helped, will start it again. 3 days a week. Hydrocodone, Meloxicam Zanaflex, Lidocaine patches patient care manager Prior to ablation symptoms on left have [...] the patient MRI Lumbar: Narrative PERFORMED AT [facility] LOCATION:[facility] CLINICAL HISTORY: Low back pain extending into the right lower extremity. COMPARISON: 05/01/2022 TECHNIQUE: Multiplanar MR imaging of the lumbar spine was performed. FINDINGS: The spine is visualized from the Z32-L7-M6 levels on the sagittal sequences, assuming a [...] narrowing. At the L5-S1 level, there is eyac-im-upbtuzpm diffuse disc bulging and moderate hypertrophic facet changes, which results in moderate to marked neural foraminal narrowing. Procedure Note CONVERSION, GENERIC - 11/13/2022 PERFORMED AT [facility] LOCATION:[facility] CLINICAL HISTORY: Low back pain extending into the right lower extremity. COMPARISON: 05/01/2022 TECHNIQUE: Multiplanar MR imaging of the lumbar spine was performed. FINDINGS: The spine is visualized from the V74-X7-K2 levels on the sagittal sequences, assuming a [...] narrowing. At the L5-S1 level, there is cglh-co-sjvurixv diffuse disc bulging and moderate hypertrophic facet changes, which results in moderate to marked neural foraminal narrowing. 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 Report reported and signed by James Vizcaino on 10/19/2022 1406 CONVERSION, GENERIC - 11/14/2022 PERFORMED AT [facility] LOCATION:[facility] [address] 110 EXAMINATION: XR HIPS JAIRO 3_4V [...] 8:55 AM PAGER: documented in this encounter [facility] 02-12-2023 Note HNO ID: [id number] Author: Laila Lewis PA-C Service: ? Author Type: Physician Centre[employer] Radio Operator Type: Progress Notes Filed: 02/12/2023 12:58 PM Note Text: Per Triage: Lawson Vela is a 68 year old male that requests evaluation of lumbar spine. Per review, they have symptoms of LBP into left leg pain. Positive for numbness, difficulty walking and weakness. CMT: PT Hydrocodone patient care manager Studies (Reports unless indicated) MRI Lumbar: Narrative PERFORMED AT [facility] LOCATION:[facility] CLINICAL HISTORY: Low back pain extending into the right lower extremity. COMPARISON: 05/01/2022 TECHNIQUE: Multiplanar MR imaging of the lumbar spine was performed. FINDINGS: The spine is visualized from the H83-V6-C3 levels on the sagittal sequences, assuming a [...] narrowing. At the L5-S1 level, there is fokt-uh-xuynakdl diffuse disc bulging and moderate hypertrophic facet changes, which results in moderate to marked neural foraminal narrowing. Procedure Note CONVERSION, GENERIC - 11/13/2022 PERFORMED AT [facility] LOCATION[facility] CLINICAL HISTORY: Low back pain extending into the right lower extremity. COMPARISON: 05/01/2022 TECHNIQUE: Multiplanar MR imaging of the lumbar spine was performed. FINDINGS: The spine is visualized from the V52-N7-L3 levels on the sagittal sequences, assuming a [...] narrowing. At the L5-S1 level, there is gvhx-pr-omqwbflq diffuse disc bulging and moderate hypertrophic facet changes, which results in moderate to marked neural foraminal narrowing. 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 Report reported and signed by James Vizcaino on 10/19/2022 1406 Disposition: Please schedule with Laila. [facility] 02-12-2023 History of Present illness Narrative Per Triage: Lawson Vela is a 68 year old male that requests evaluation of lumbar spine. Per review, they have symptoms of LBP into left leg pain. Positive for numbness, difficulty walking and weakness. CMT: PT Hydrocodone patient care manager Studies (Reports unless indicated) MRI Lumbar: Narrative PERFORMED AT [facility] LOCATION:[facility] CLINICAL HISTORY: Low back pain extending into the right lower extremity. COMPARISON: 05/01/2022 TECHNIQUE: Multiplanar MR imaging of the lumbar spine was performed. FINDINGS: The spine is visualized from the P74-V7-G6 levels on the sagittal sequences, assuming a [...] narrowing. At the L5-S1 level, there is bulw-jk-tyovjzgw diffuse disc bulging and moderate hypertrophic facet changes, which results in moderate to marked neural foraminal narrowing. Procedure Note CONVERSION, GENERIC - 11/13/2022 PERFORMED AT [facility] LOCATION:[facility] CLINICAL HISTORY: Low back pain extending into the right lower extremity. COMPARISON: 05/01/2022 TECHNIQUE: Multiplanar MR imaging of the lumbar spine was performed. FINDINGS: The spine is visualized from the Y26-S2-X4 levels on the sagittal sequences, assuming a [...] narrowing. At the L5-S1 level, there is hsds-xm-nvxxhhvb diffuse disc bulging and moderate hypertrophic facet changes, which results in moderate to marked neural foraminal narrowing. 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 Report reported and signed by James Vizcaino on 10/19/2022 1406 Disposition: Please schedule with Laila. Patient name: Lawson Vela Are you being referred by a Center for Sp[facility] Health Provider or Pain Management Provider at [facility]? No If answer is YES please [...] the facility where the MRI/CT/myelogram was completed: [facility] Imaging Address: [address] [place] [address] [facility] Address: [address] [place] [address] MRI/CT/myelogram viewable in Epic: No If not, please provide [phone] to fax in imaging reports for review. [...] physical therapy was completed PT Injections [facility] Address: [address] [place] [address] Have you tried any other kinds of [...] where the surgery was completed: Additional Comments [phone] (Home Phone) documented in this encounter [facility] 01-28-2023 Note HNO ID: [id number] Author: Mookie Lee Service: ? Author Type: ? Type: Progress Notes Filed: 02/12/2023 12:58 PM Note Text: Patient name: Lawson Vela Are you being referred by a [place] for Spine Health Provider or Pain Management Provider at [facility]? No If answer is YES please [...] the facility where the MRI/CT/myelogram was completed: [facility] Imaging Address: [address] [place] [address] [facility] Address: [address] [place] [address] MRI/CT/myelogram viewable in Epic: No If not, please provide [phone] to fax in imaging reports for review. [...] physical therapy was completed PT Injections [facility] Address: [address] [place] [address] Have you tried any other kinds of [...] where the surgery was completed: Additional Comments [phone] (Home Phone) [facility] 12-17-2022 Evaluation note Encounter Date [...] prednisone taper. Advised not to take any dvgz-eox-uhlxdwp ibuprofen while taking prednisone. OARRS reviewed . [...] spine, education on diet, decrease sugar intake. [employer] Other 05-16-2023 NoteCONSULTATION CONSULTATION DATE: 11/10/2022 TO: [...] our patients to inform us about any vinu-czl-ppwnlox medications or herbal remedies/nutritional supplements/alternative remedies. 2. [...] treatment options with their primary care provider.[facility] [id number] Note CONSULTATION CONSULTATION DATE: 10/08/2022 TO: Javad [...] our patients to inform us about any kepb-mmp-dzsdmcp medications or herbal remedies/nutritional supplements/alternative remedies. 2. [...] treatment options with their primary care provider.[facility] [id number] Note CONSULTATION CONSULTATION DATE: 09/10/2022 HISTORY: This [...] a tightness in that region. Medications include [place]edar[place] 5/325 daily, tizanidine 4 mg q.h.s., Mobic [...] in three months' time unless otherwise indicated.[facility] [id number] NoteCONSULTATION PROCEDURE DATE: 09/10/2022 PREOPERATIVE DIAGNOSIS: Bilateral [...] pattern, and patient tolerated the procedure well.[facility] [id number] Note CONSULTATION CONSULTATION DATE: 07/23/2022 HISTORY OF [...] current medications include Mobic 50 mg daily, [place]edar[place] 5/325 per his PCP daily p.r.n. and [...] up in the office after the procedure.[facility] [id number] NoteCONSULTATION CONSULTATION DATE: 06/25/2022 HISTORY OF PRESENT [...] with a vitamin regimen and he takes C[place] 5/325 daily p.r.n., and Mobic 15 mg [...] following his procedure here in the office.[facility] [id number] Hospital Discharge instructions Patient Education 06/01/2022 08:22:09 [...] urethra. Follow these instructions at home: Take doxt-woq-qvopqjw and prescription medicines only as told by [...] 06/14/2006 Document Revised: 05/09/2019 Document Reviewed: 07/19/2017 [employer] Patient Education 2019 Smart Device Media. Follow Up Care 02/16/2022 11:28:21 With:PAMELA BAER, Mac Stephenson, FEROZ Address: [facility] [address], [place] [address]- When: Unknown [facility]22 NoteCONSULTATION CONSULTATION DATE: 05/19/2022 CHIEF COMPLAINT: [...] The patient currently takes Mobic 15 mg, Cedarville 5/325 on a p.r.n. basis as prescribed [...] had been performed. CC: Javad Donato M.D.[facility] [id number] NoteCONSULTATION CONSULTATION DATE: 04/28/2022 CHIEF COMPLAINT: Left [...] patient takes two Aleve. He also takes Cedarville 5/[address] Donato has prescribed for [...] like to proceed. CC: Javad Donato M.D.[facility]08-22-2022 Hospital Discharge instructions Patient Education 02/16/2022 11:24:07 [...] urethra. Follow these instructions at home: Take iojz-uxf-xcedyrm and prescription medicines only as told by [...] 06/14/2006 Document Revised: 05/09/2019 Document Reviewed: 07/19/2017 [employer] Patient Education 2020 [employer]. 02/16/2022 11:24:04 Calorie Counting for Weight Loss [...] 06/14/2006 Document Revised: 03/03/2019 Document Reviewed: 05/14/2017 [employer] Patient Education [employer]. Follow Up Care 08/18/2021 12:09:57 With:PAMELA BAER, Mac Stephenson, URL Address: [address] [place], [place] [id number] [facility] (1) When:Within 6 Month(s) [facility] evaluation + Plan note Future Appointments Appointment Date:06/01/2022 10:45:00 AM Scheduled Provider:Mac SANTIAGO MD Location:[facility] Appointment Type:URO Office Visit [facility] evaluation + Plan note Future Appointments Appointment Date:11/30/2022 08:45:00 AM Scheduled Provider:Mac SANTIAGO MD Location:[facility] Appointment Type:URO Office Visit [facility] evaluation + Plan note Future Appointments Appointment Date:02/05/2025 10:45:00 AM Scheduled Provider:Mac SANTIAGO MD Location:[facility] Appointment Type:URO Office Visit [facility] Evaluation noteNo assessment information available [facility] Work Phone: [facility] Other evaluation note* Diagnosis Spinal stenosis, lumbar region with neurogenic claudication- Primary [facility] Spinal stenosis, lumbar region with neurogenic claudication- Primary Bilateral hip joint arthritis [facility] Right hip pain- Primary Pain in joint, pelvic region and thigh Status post total hip replacement, right documented in this encounter [facility]* Diagnosis Right hip pain- Primary Pain in joint, pelvic region and thigh Status post total hip replacement, right Arthritis of right hip documented in this encounter [facility]* Diagnosis Right hip pain- Primary Pain in joint, pelvic region and thigh Status post total hip replacement, right Arthritis of right hip Primary osteoarthritis of right hip Status post right hip replacement documented in this encounter [facility] note* Diagnosis Primary osteoarthritis of right hip Status post right hip replacement Right hip pain- Primary Pain in joint, pelvic region and thigh Status post total hip replacement, right Arthritis of right hip documented in this encounter [facility] note* Diagnosis Primary osteoarthritis of right hip Status post right hip replacement documented in this encounter [facility]* Diagnosis Preop examination- Primary Unspecified pre-operative examination Hypertension, unspecified type Preop examination Unspecified pre-operative examination Hypertension, unspecified type [facility]* Diagnosis Left hip pain Pain in joint, pelvic region and thigh Arthritis of left hip documented in this encounter [facility] HealthcareEvaluation note* Diagnosis Herniated lumbar disc without myelopathy- Primary documented in this encounter [facility] note* Diagnosis Status post right hip replacement documented in this encounter [facility] note* Diagnosis Primary osteoarthritis of left hip- Primary Benign essential hypertension (CMS/HCC) Essential hypertension, benign Class 2 severe obesity with serious comorbidity and body mass index (BMI) of 37.0 to 37.9 in adult, unspecified obesity type (CMS/HCC) documented in this encounter [facility] note* Diagnosis Post-operative pain- Primary Other acute postoperative pain documented in this encounter [facility] note* Diagnosis Post-operative pain Other acute postoperative pain documented [facility]* Diagnosis S/P total left hip arthroplasty- Primary [facility]* Diagnosis S/P total left hip arthroplasty- Primary documented in this encounter [facility]* Diagnosis S/P total left hip arthroplasty- Primary Left hip pain Pain in joint, pelvic region and thigh documented [facility] Narrative - Reported* Type Description Date Medical History appendicitis Medical History Arthritis Medical History Hypertension Medical History obesity Medical History pneumonia Medical History prostate cancer Surgical History appendectomy Surgical History carpal tunnel release 2017 Hospitalization History see surg Hx [facility] Other History [facility] - [facility] Other Hospital course Narrative No data available for this section [facility] progress note No data available for this section [facility] reason for referral (narrative)* Diagnostic Procedure Only (Routine) - Pending Review Specialty Diagnoses / Procedures Referred By Rayray barkley Referred To Contact XR IMAGING Diagnoses Bilateral hip joint arthritis Procedures XR HIP BILATERAL 5V PEL/AP/LAT EACH HIP RADEX HIPS BILATERAL WITH PELVIS MINIMUM 5 VIEWS Laila Lewis PA-C [address] [place] [address] Xr Imaging [place] [address] Referral ID Status Reason Start Date Expiration Date Visits Requested Visits Authorized [id number] Pending Review Auto-Generat ed Referral 3 05/12/2024 1 1 * Consult, Test, Treat (Routine) - Pending Review Specialty Diagnoses / Procedures Referred By Rayray barkley Referred To Contact Orthopedics Diagnoses Bilateral hip joint arthritis Procedures CONSULT TO ORTHOPAEDICS OFFICE/OUTPATIENT [facility] 60-74 MINUTES Laila Lewis PA-C [address] [place] [address] Referral ID Status Reason Start Date Expiration Date Visits Requested Visits Authorized [id number] Pending Review PCP Requested Referral 3 04/12/2024 1 1 [facility] for visit Narrativeself referral- low back pain L4-L5 Market6 Other Summary Purpose Family History No Family History Records FoundNo Family History Records FoundNo Family History Records FoundNo Family History Records FoundNo Family History Records Found No data available for this section No Family History Records FoundNo Family History Records FoundNo Family History Records Found Advance Directives Advance Directive Response Recorded Date/ Time Advance Directives No December 17 2:40pm Date Activated Date Inactivated Comments 07/06/2023 5:59 PM 07/07/2023 4:47 PM Chief Complaint and Reason for Visit Chief Complaint M54.16 Reason for Referral Specialty Diagnoses / Procedures Referred By Contac t Referred To Contact Diagnoses Preop examination Hypertension, unspecified type Procedures ECG 12 lead Charissa Blair DO [address] [facility] [address] [place] [address] Referral ID Status Reason Start Date Expiration Date V isits Requested Visits Authorized [id number] Pending Review 03/06/2024 03/06/2025 1 1 Additional Source Comments Care Team (unrecognized sect ion and content) Team Status: Active Member Role Status Dates Javad Donato II MD Primary Care Provider Active Team Status: Inactive Member Role Status Dates Javad Donato II MD Primary Care Provider Active Erica Xiong NP-C Attending Provider Active Light Bulb Tester Relationship Specialty Start Date End Date Javad Donato MD [address] [facility] [address] [place] [address] PCP - ACO Reach 11/19/22 Javad Donato MD [address] [facility] [address] [place] [address] PCP - General Internal Medicine 01/05/23 Light Bulb Tester Relationship Specialty Start Date End Date Javad Donato MD [address] [facility] [address] [place] [address] PCP - ACO Reach 11/19/22 Javad Donato MD [address] [place] [address] [place] [address] PCP - General Internal Medicine 01/05/23 Light Bulb Tester Relationship Specialty Start Date End Date Javad Donato MD [address] [facility] [address] [place] [address] PCP - ACO Reach 11/19/22 Javad Donato MD [address] [place] [address] [place] [address] PCP - General Internal Medicine 01/05/23 Light Bulb Tester Relationship Specialty Start Date End Date Javad Donato MD [address] [place] [address] [place] [address] PCP - ACO Reach 11/19/22 Javad Donato MD [address] [facility] [address] [place] [address] PCP - General Internal Medicine 01/05/23 Light Bulb Tester Relationship Specialty Start Date End Date Javad Donato MD [address] [facility] [address] [place] [address] PCP - ACO Reach 11/19/22 Javad Donato MD [address] [facility] [address] [place] [address] PCP - General Internal Medicine 01/05/23 Light Bulb Tester Relationship Specialty Start Date End Date Javad Donato MD [address] [facility] [address] [place] [address] PCP - ACO Reach 11/19/22 Javad Donato MD [address] [facility] [address] [place] [address] PCP - General Internal Medicine 01/05/23 Light Bulb Tester Relationship Specialty Start Date End Date Javad Donato MD [address] [facility] [address] [place] [address] PCP - ACO Reach 11/19/22 Javad Donato MD [address] [place] [address] [place] [address] PCP - General Internal Medicine 01/05/23 Light Bulb Tester Relationship Specialty Start Date End Date Javad Donato MD [address] [place] [address] [place] [address] PCP - General Internal Medicine 06/15/17 Light Bulb Tester Relationship Specialty Start Date End Date Javad Donato MD [address] [place] [address] [place] [address] PCP - ACO Reach 11/19/22 Javad Donato MD [address] [facility] [address] [place] [address] PCP - General Internal Medicine 01/05/23 Light Bulb Tester Relationship Specialty Start Date End Date Javad Donato MD [address] [facility] [address] [place] [address] PCP - ACO Reach 11/19/22 Javad Donato MD [address] [facility] [address] [place] [address] PCP - General Internal Medicine 01/05/23 Light Bulb Tester Relationship Specialty Start Date End Date Javad Donato MD [address] [facility] [address] [place] [address] PCP - ACO Reach 11/19/22 Javad Donato MD [address] [facility] [address] [place] [address] PCP - General Internal Medicine 01/05/23 Light Bulb Tester Relationship Specialty Start Date End Date Javad Donato MD [address] [facility] [address] [place] [address] PCP - ACO Reach 11/19/22 Javad Donato MD [address] [facility] [address] [place] [address] PCP - General Internal Medicine 01/05/23 Light Bulb Tester Relationship Specialty Start Date End Date Javad Donato MD [address] [facility] [address] [place] [address] PCP - ACO Reach 11/19/22 Javad Donato MD [address] [facility] [address] [place] [address] PCP - General Internal Medicine 01/05/23 Light Bulb Tester Relationship Specialty Start Date End Date Javad Donato MD [address] [place] [address] [place] [address] PCP - ACO Reach 11/19/22 Javad Donato MD [address] [place] [address] [place] [address] PCP - General Internal Medicine 01/05/23 Light Bulb Tester Relationship Specialty Start Date End Date Javad Donato MD [address] [place] [address] [place] [address] PCP - ACO Reach 11/19/22 Javad Donato MD [address] [facility] [address] [place] [address] PCP - General Internal Medicine 01/05/23Wednesday, Michelle, FROG CATCHER [address] [place] [address] Licensed Practical Nurse Family Medicine 05/08/24 Light Bulb Tester Relationship Specialty Start Date End Date Javad Donato MD [address] [place] [address] [place] [address] PCP - ACO Reach 11/19/22 Javad Donato MD [address] [facility] [address] [place] [address] PCP - General Internal Medicine 01/05/23Wednesday, Michelle FROG CATCHER [address] [place] [address] Licensed Practical Nurse Family Medicine 05/08/24 Light Bulb Tester Relationship Specialty Start Date End Date Javad Donato MD [address] [place] [address] [place] [address] PCP - ACO Reach 11/19/22 Javad Donato MD [address] [place] [address] [place] [address] PCP - General Internal Medicine 01/05/23Wednesday, Michelle, FROG CATCHER [address] [place] [address] Licensed Practical Nurse Family Medicine 05/08/24 05/16/24 Light Bulb Tester Relationship Specialty Start Date End Date Javad Donato MD [address] [place] [address] [place] [address] PCP - ACO Reach 11/19/22 Javad Donato MD [address] [place] [address] [place] [address] PCP - General Internal Medicine 01/05/23WednesdayMichelle LPN [address] [place] [address] Licensed Practical Nurse Family Medicine 05/08/24 05/16/24 Light Bulb Tester Relationship Specialty Start Date End Date Javad Donato MD [address] [place] [address] [place] [address] PCP - ACO Reach 11/19/22 Javad Donato MD [address] [place] [address] [place] [address] PCP - General Internal Medicine 01/05/23WednesdayMichelle LPN [address] [place] [address] Licensed Practical Nurse Family Medicine 05/08/24 05/16/24 Light Bulb Tester Relationship Specialty Start Date End Date Javad Donato MD [address] [place] [address] [place] [address] PCP - ACO Reach 11/19/22 Javad Donato MD [address] [place] [address] [place] [address] PCP - General Internal Medicine 01/05/23 Light Bulb Tester Relationship Specialty Start Date End Date Javad Donato MD [address] [place] [address] [place] [address] PCP - ACO Reach 11/19/22 Javad Donato MD [address] [place] [address] PCP - General Internal Medicine 01/05/23 (unrecognized sect ion and content) No Status Records FoundNo Status Records FoundNo Status Records FoundNo Status Records FoundNo Status Records FoundNo Status Records FoundNo Status Records FoundNo Status Records Found INFORMATION SOURCE (unrecogn ized section and content) DATE CREATED AUTHOR 05/02/2022 [facility] dical Specialist DATE CREATED AUTHOR AUTHOR'S ORGANIZ ATION 12/04/2022 [facility] DATE CREATED AUTHOR AUTHOR'S ORGANIZ ATION 01/13/2023 [facility] DATE CREATED AUTHOR AUTHOR'S ORGANIZ ATION 02/13/2023 [facility] DATE CREATED AUTHOR AUTHOR'S ORGANIZ ATION [facility]/2023 [facility] DATE CREATED AUTHOR AUTHOR'S ORGANIZ ATION 02/09/2024 [facility] DATE CREATED AUTHOR AUTHOR'S ORGANIZ ATION 05/05/2024 [facility] DATE CREATED AUTHOR AUTHOR'S ORGANIZ ATION 06/14/2024 [facility] d[facility] Specialists EPIC Goals (unrecognized section [...] or prosecute any alcohol or drug abuse patient.[facility] the event this information is protected by the Federal Confidentiality of Alcohol and Drug Abuse Patient Records regulations: The Federal rules restrict any use of the information to criminally investigate or prosecute any alcohol or drug abuse patient.[facility] Reason for Visit (unrecogniz ed section and content) Reason Comments New Patient Specialty Diagnoses / Procedures Referred By Contac t Referred To Contact Physical Therapy Diagnoses Presence of artificial hip joint, right Procedures DC OFFICE/OUTPATIENT NEW HIGH MDM 60 MINUTES Charissa Blair, DO [address] [place] [address] [address] [place] [address] Referral ID Status Reason Start Date Expiration Date Visits Requested Visits Authorized [id number] Authorized Specialty Services Required 07/08/2023 01/04/2024 30 30 Reason Comments Follow-up Reason Comments Pain Reason Onset Date Comments Med Refill 04/12/2024 Reason Comments surgical clearance Pt sched 05/03/24 for left hip replacement with Dr Blair at [facility] completed Reason Onset Date Comments Discharge 05/04/2024 Reason Comments Pain FOR RECORDS PERTAINING TO PATIENTS WHO ARE [...] BE BASED ON THE PRIMARY CLINICAL RECORDS. [employer] provides no warranty or guarantee of the accuracy or completeness of information in this document.
--- NOTE | 2024-06-15 08:01 | P.CN_ITS ---
Consult Note: HPI Data of Consult Patient: known to practice within the last 3 years Requesting Physician: Kath Steiner NP Primary Care Provider: JOHNATHAN LÓPEZ Consult Narrative Reason for consult: f/u Narrative: Lawson Vela a pleasant 69 year old male presents for evaluation of chronic low back, left posterior thigh and buttocks pain. Pain increased with all activity, improved with sleep and sitting. Patient reporting mild relief from ibuprofen, tizanidine, and norco 5-325mg. Patient underwent right hip replacement 07/21 and is hoping to have left hip replaced 05/21. Previous L5-S1 JEN >50% improvement for 3 months, pt would like to discuss repeating. cc:: CC: Kath Steiner NP Review of Systems ROS Status of ROS 10 or more systems reviewed and unremark able except as noted in history and below Musculoskeletal Reports: joint pain; Denies: back pain PFSH PFSH Medical History Neuritis ?M79.2 - Neuralgia and neuritis, unspecified (ICD-10) Left carpal tunnel syndrome ?G56.02 - Carpal tunnel syndrome, left upper limb (ICD-10) Osteoarthritis ?M19.90 - Unspecified osteoarthritis, unspecified site (ICD-10) Low back pain ?M54.50 - Low back pain, unspecified (ICD-10) Obesity ?E66.9 - Obesity, unspecified (ICD-10) Enlarged prostate ?N40.0 - Benign prostatic hyperplasia without lower urinary tract symptoms (ICD-10) Former smoker ?Z87.891 - Personal history of nicotine dependence (ICD-10) Hypertension ?I10 - Essential (primary) hypertension (ICD-10) Surgical History Hx of appendectomy ?Z90.49 - Acquired absence of other specified parts of digestive tract (ICD- 10) Social History Smoking status: Former smoker Meds Home Medications and Allergies Home Medications ?Medication ?Instructions ?Recorded ?Confirmed ?Type ascorbic acid (vitamin C) 500 mg 500 mg PO DAILY 12/10/22 03/14/24 History tablet (C-500) bee pollen 550 mg capsule mg PO .QD 12/10/22 History carvedilol 6.25 mg tablet 6.25 mg PO BID 12/10/22 03/14/24 History cholecalciferol (vitamin D3) 10 10 mcg PO DAILY 12/10/22 03/14/24 History mcg (400 unit) capsule (Vitamin D3) finasteride 5 mg tablet 5 mg PO .QD 12/10/22 03/14/24 History hydrocodone 5 mg-acetaminophen 325 1 tab PO QID PRN pain 12/10/22 03/14/24 History mg tablet mecobalamin (vitamin B12) 1,000 1,000 mcg PO DAILY 12/10/22 03/14/24 History mcg chewable tablet (B12 Active) meloxicam 15 mg tablet 15 mg PO .QD 12/10/22 03/14/24 History multivitamin 1 tab PO DAILY 12/10/22 03/14/24 History sildenafil 100 mg tablet (Viagra) 100 mg PO DAILY PRN sexual activity 12/10/22 03/14/24 History solifenacin 10 mg tablet 10 mg PO DAILY 12/10/22 03/14/24 History tamsulosin 0.4 mg capsule 0.4 mg PO Q24H 12/10/22 03/14/24 History tizanidine 4 mg capsule 4 mg PO .HS PRN muscle spasticity 12/10/22 03/14/24 History vitamin B complex (Complex B-100 1 tab PO DAILY 12/10/22 03/14/24 History tablet,extended release) zinc 50 mg tablet 50 mg PO DAILY 12/10/22 03/14/24 History Allergies Allergy/AdvReac Type Severity Reaction Status Date / Time No Known Drug Allergies Allergy Verified 03/14/24 07:25 Exam Constitutional Documenting provider has reviewed patient's vital signs: yes Common normals: no apparent distress, oriented x3, healthy appearing, alert and well nourished General appearance: cooperative Nutritional appearance: obese HENMT Common normals: normocephalic, hearing grossly normal bilaterally and moist oral mucous membranes Head and scalp: normocephalic Eye Common normals: PERRL Pupil: PERRL Neck & C-Spine Common normals: full ROM General: normal visual inspection Chest Common normals: inspection of chest normal Respiratory Common normals: normal respiratory effort, no retractions and no use of accessory muscles Back & Pelvis Lumbar spine/lower back: ROM limited and straight leg raise negative bilaterally; no pain with ROM, no lumbar spinal tenderness and no paraspinal muscle tenderness Sacroiliac joints: SI joints normal Other: decreased sensation to left L4,5 L5,S1 dermatomal pattern increased pain with standing and walking, improved with forward flexion and sitting strength 5/5 in BLE Extremity Common normals: normal to inspection and full ROM Left lower extremity: hip joint Other: moderate pain with internal and external log roll Neuro Common normals: oriented x3, CN's II-XII intact bilaterally, moves all extremities, no focal motor deficits, no sensory deficits noted and deep tendon reflexes 2+ bilaterally Sensorium/orientation: alert Gait (neuro): antalgic Motor exam: strength 5/5 throughout and no movement abnormalities noted Psych Common normals: mental status grossly normal, thought process normal, cooperative, affect normal, speech normal and activity/motor behavior normal Speech: normal speech Thought process: normal thought process Results Additional Findings Additional findings: If on a controlled substance or opioids, I have checked an [place] report on this patient and there are no aberrancies noted in the prescribing history.??If on a controlled substance or opioid a drug screen was completed and reviewed within the last year, and if there has not been a drug screen completed we ordered one today to monitor higher risk, state monitored pain medication use. As part of providing excellent, safe, comprehensive care, the following was completed at our patient's visit: 1. A medication reconciliation and review to ensure accurate knowledge of current/active medications, including asking our patients to inform us about any [id number] medications or herbal remedies/nutritional supplements/alternative remedies. 2. A review to specifically ensure our patients have had annual screening for screening for depression, screening for tobacco use, and screening for unhealthy alcohol use. For concerning screenings had a discussion with the patient, provided patient education, and recommended follow-up with primary care provider when appropriate. If patient noted with a risk of falling, they received education on strength, gait, and balance training to prevent future risk of falling. Assessment and Plan Assessment and Plan (1) Lumbar stenosis with neurogenic claudication: (2) Lumbar spondylosis: (3) Myofascial pain: Plan repeat L5-S1 JEN under fluoroscopy update lumbar xray with flexion update lumbar MRI without contrast consider vertiflex continue current medications f/u 2 weeks after JEN
== END 2024-06-15 07:30 | disposition home or self-care (01) ==
LOC: PM 07:29
PROVIDERS: PCP Internal Medicine; Visit Provider Nurse Practitioner
DX: M48.062 Spinal stenosis, lumbar region with neurogenic claudication (principal); M47.816 Spondylosis without myelopathy or radiculopathy, lumbar region; M79.18 Myalgia, other site
CPT/HCPCS: G0463

== ENCOUNTER 2024-06-16 11:42 | Outpatient (OUT) | payer MEDICARE, OTHER, SELFPAY ==
--- NOTE | 2024-06-16 11:56 | XR_ITS ---
[facility] [place] [id number] Patient Name: CANDACE WILKS MRN: [id number] date: 1955 Sex: M Assigned Patient Location: [facility] Current Patient Location: Accession/Order Number: [id number] Exam Date: 06/16/2024 12:03 Report Date: 06/17/2024 07:57 At the request of: YOSEF CHEEMA Procedure: XR lumbar spine 6V w bending EXAMINATION: XR lumbar spine 6V w bending HISTORY: Lumbar Spondylosis COMPARISON: XR L-spine 04/06/2022 FINDINGS: BONES: Multifocal mild degenerative facet arthropathy. No fracture, spondylolisthesis, or change in alignment during flexion and extension. Stable slight anterior wedging of L2 and L3 vertebral bodies; developmental versus remote compression fractures. Stable sclerosis of contiguous endplates of L3-L4 secondary to degenerative disc disease. DISC SPACES: Mild narrowing L1-L2. Moderate narrowing L3 on 4, L4-L5. Partial lumbarization of S1 (normal variant). PARASPINOUS: Negative. No paraspinous abnormality is seen. OTHER: Negative. XR/XR lumbar spine 6V w bending IMPRESSION: 1. Moderate degenerative changes of lumbar spine; slightly progressed compared to 2021. Electronically authenticated by: MARCIAL FELIX Date: 06/17/2024 07:57
--- OUTSIDE RECORDS SUMMARY | 2024-06-16 12:11 | XMS_ITS | CCD ---
Author Organization [facility] Care Team Providers Care Relief Operator Name Role Phone JAVAD DONATO Primary Care [...] Unavailable Javad Donato MD Primary Care Provider [phone] Mac SANTIAGO Attending Unavailable Mac SANTIAGO Attending Unavailable Javad oDnato MD Primary Care Provider [phone] CHARISSA BLAIR Referring Unavailable JAVAD DONATO Primary Care Unavailable CHARISSA BLAIR Admitting Unavailable CHARISSA BLAIR Attending Unavailable JAVAD DONATO Primary Care Unavailable DEVIN SAUL Attending Unavailable JAVAD DONATO Primary Care Unavailable CHARISSA BLAIR Attending Unavailable CHARISSA BLAIR Referring Unavailable JAVAD DONATO Primary Care Unavailable CHARISSA BLAIR Referring Unavailable JAVAD DONATO Primary Care Unavailable DENVER, CHARISSA Rose Referring Unavailable JAVAD DONATO Primary Care Unavailable DENVER, CHARISSA Rose Referring Unavailable JAVAD DONATO Primary Care Unavailable DENVER, CHARISSA Rose Referring Unavailable JAVAD DONATO Primary Care Unavailable DENVER, CHARISSA Rose Admitting Unavailable ROSSY, CHARISSA Rose Attending Unavailable JAVAD DONATO Primary Care Unavailable Wednesday CYLINDER DIE MACHINE OPERATOR, Michelle Unavailable Wednesday CYLINDER DIE MACHINE OPERATOR, Michelle Unavailable JAVAD DONATO Attending Unavailable JOSE HERNÁNDEZ Attending Unavailable BONINAGI MUNSON Attending Unavailable ROSSY, CHARISSA Rose Referring Unavailable JEANNA MENDIOLA Attending Unavailable ROSSY, CHARISSA Rose Referring Unavailable JEANNA MENDIOLA Attending Unavailable ROSSY, CHARISSA Rose Referring Unavailable JEANNA MENDIOLA Attending Unavailable ROSSY, CHARISSA Rose Referring Unavailable HERNÁNDEZ, JOSE Barkley Attending Unavailable HERNÁNDEZ, JOSE Barkley Referring Unavailable NAGI PLATA Attending Unavailable ROSSY, CHARISSA Rose Referring Unavailable JEANNA MENDIOLA Attending Unavailable ROSSY, CHARISSA Rose Referring Unavailable JEANNA MENDIOLA Attending Unavailable ROSSY, CHARISSA Rose Referring Unavailable BONINAGI MUNSON Attending Unavailable ROSSY, CHARISSA Rose Referring Unavailable NAGI PLATA Attending Unavailable ROSSY, CHARISSA Rose Referring Unavailable HERNÁNDEZ, JOSE Barkley Attending Unavailable HERNÁNDEZ, JOSE Barkley Attending Unavailable HERNÁNDEZ, JOSE Barkley Referring Unavailable HERNÁNDEZ, JOSE Barkley Attending Unavailable HERNÁNDEZ, JOSE Barkley Referring Unavailable ROSSY, CHARISSA Rose Attending Unavailable ALMA MCCLENDON Attending Unavailable ROSSY, CHARISSA Rose Attending Unavailable HEMALMA MITCHELL Attending Unavailable HERNÁNDEZ, JOSE Barkley Attending Unavailable ROSSY, CHARISSA Rose Referring Unavailable JAVAD DONATO Attending Unavailable ROSSY, CHARISSA Rose Attending Unavailable ROSSY, CHARISSA Rose Attending Unavailable HERNÁNDEZ, JOSE Barkley Attending Unavailable HERNÁNDEZ, JOSE Barkley Referring Unavailable Allergies Allergy Classification Reported Allergen(s) Allergy Type Date of Onset Reaction(s) Facility (20 sources) carvedilol; Translations: [CARVEDILOL] Drug Allergy 06-29-2022 [facility] Medications Current Medications Medication Drug Class(es) [...] oral tablet (20 sources) Opioid Agonist Start: 06-14-2024 take 1 tablet by mouth every six hours for pain HYDROcodone-aceta minophen (Sutton) 5-325 MG tablet Indications: Herniated lumbar disc without myelopathy Take 1 tablet by mouth every 6 (six) hours if needed for severe pain 40 tablet 06/14/2024 Active Start: 06-14-2024 take 1 tablet by yvon th every six hours for pain HYDROcodone-acetaminophen (Sutton) 5-325 MG tablet Indications: Herniated lumbar disc without myelopathy Take 1 tablet by mouth every 6 (six) hours if needed for severe pain 40 tablet 06/14/2024 Active Start: 04-12-2024 End: 06-14-2024 take 1 tablet by mouth every six hours for pain HYDROcodone-acetaminophen (Sutton) 5-325 MG tablet Indications: Herniated lumbar disc without myelopathy Take 1 tablet by mouth every 6 (six) hours if needed for severe pain 20 tablet 04/12/2024 06/14/2024 Discontinued (Reorder) Start: 02-07-2024 take 1 tablet by yvon th every six hours Sutton 325 mg-5 mg oral tablet 1 tab(s), [...] total) by mouth in the morning. Active azithromycin 250 mg oral tablet (2 sources) Macrolide Antimicrobial Start: 02-17-2024 End: 02-21-2024 take 2 tablets by mouth once daily, then take 1 tablet by mouth once daily azithromycin (Zithromax) 250 MG tablet Indications: Acute pharyngitis, unspecified etiology Take 2 tablets (500 mg) by mouth Daily for 1 day, THEN 1 tablet (250 mg) Daily for 4 days. 6 tablet 02/17/2024 02/21/2024 Active B Complex Vitamins (vitamin B complex) [...] 0 Active predniSONE 10 mg oral tablet (4 sources) Start: 02-17-2024 End: 02-25-2024 take 1 tablet by mouth three times daily, then take 1 tablet by mouth twice daily, then take 1 tablet by mouth once daily predniSONE (Deltasone) 10 MG tablet Indications: Acute pharyngitis, unspecified etiology Take 1 tablet (10 mg) by mouth 3 (three) times a day for 3 days, THEN 1 tablet (10 mg) 2 (two) times a day for 3 days, THEN 1 tablet (10 mg) Daily for 3 days. 18 tablet 02/17/2024 02/25/2024 Active Start: 12-17-2022 Start: 12-17-2022 predniSONE 10 MG [...] Daily, # 30 tab(s), Refills(s) 11, Pharmacy: [facility] [id number], 186, cm, 02/08/23 11:10:00 EDT, Height/Length Dosing, [...] Start: 06-30-2021 take 1 capsule by mo [facility] twice daily tamsulosin 0.4 mg Cap 0.4 mg = 1 cap(s), Oral, BID, # 60 cap(s), Refills(s) 11, Pharmacy: [facility] [id number], 186, cm, 02/08/23 11:10:00 EDT, Height/Length Dosing, [...] 04/03/2022 Active take 1 tablet by yvon every six hours as needed tiZANidine (ZANAFLEX) [...] Problem Classification Problem Date Documented Date Episodic/Chronic Administrative/social admission (4 sources) Patient encounter status; Translations: [Other specified counseling] 06-14-2024 Episodic Diabetes mellitus without complication (20 sources) [...] lower urinary tract symptoms] Onset: 02-16-2022 Chronic Immunizations and screening for infectious disease (2 sources) Needs influenza immunization; Translations: [Encounter for immunization] 06-14-2024 Episodic Osteoarthritis (20 sources) Arthritis; Translations: [Bilateral primary [...] Translations: [Somnolence] Onset: 01-11-2023 01-11-2023 Episodic Other connective tissue disease (20 sources) [...] Snoring; Translations: [Snoring] Onset: 01-11-2023 01-11-2023 Episodic Other non-traumatic joint disorders (14 sources) Pain in right hip joint; Translations: [Pain in right hip] Onset: 07-29-2023 07-29-2023 Episodic Other non-traumatic joint disorders (20 sources) Hip pain; Translations: [Pain in right hip] Onset: 07-29-2023 07-29-2023 Episodic Other upper respiratory infections (2 sources) Acute pharyngitis; Translations: [Acute pharyngitis, unspecified] 02-17-2024 Episodic Spondylosis; intervertebral disc disorders; other back [...] Unremarkable left total hip arthroplasty. 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 [employer] (Closed)car e Radiology Study observation (narrative) [facility] XR HIP LT 2-3 VIEWS W OR WO PELVISon 05-03-2024 XR HIP LT 2-3 VIEWS W OR WO PELVIS XR HIP LT 2-3 VIEWS W OR WO PELVIS XR HIP LT 2-3 VIEWS W OR WO PELVIS HISTORY: Hip replacement. COMPARISON: None. IMPRESSION: 1. Hip prosthesis without visible complication. Soft tissue gas and swelling. Finalized by Price Delcid MD on 05/03/2024 10:26 AM [facility] XR Hip - left 3 Viewson 03-28 Imaging Result: April 06, 2024 x-rays AP and lateral of the left hip demonstrate joint space collapse with subchondral sclerosis and osteophyte formation consistent with arthritis. Impression: Arthritis of the left hip Amauri Blair D.O. [facility] XR Hip - left 3 Viewson 03-28 Radiology Study observation (narrative) [facility] BASIC METABOLIC PANLon 04-04 Anion gap [Moles/Vol] 9 mmol/L Normal 5-15 [facility] Comment on above: Performed By: #### C BCA, BMP #### [facility] ([id number]) [address], [address] [place] [address] Calcium [Mass/Vol] 9.8 mg/dL Normal 8.5-10.5 [facility] Comment on above: Performed By: #### C BCA, BMP #### [facility] ([id number]) [address], [facility] [address] [place] [address] Chloride [Moles/Vol] 103 mmol/L Normal 98-109 [facility] Comment on above: Performed By: #### C BCA, BMP #### [facility] ([id number]) [address], [address] [place] [address] CO2 [Moles/Vol] 27 mmol/L Normal 22-32 [facility] Comment on above: Performed By: #### C BCA, BMP #### [facility] ([id number]) [address] [address] [place] [address] Creatinine [Mass/Vol] 0.89 mg/dL Normal 0.60-1.30 [facility] Comment on above: Result Comment: METH OD TRACEABLE TO IDMS STANDARD Performed By: #### C BCA, BMP #### [facility] ([id number]) [address], [address] [place] [address] eGFR (CKD-EPI) NON-RACE DEPENDENT >90 Normal >59 [facility] Comment on above: Result Comment: Reported eGFR is based on the CKD-EPI 2020 equation that does not use a race coefficient. Performed By: #### C BCA, BMP #### [facility] ([id number]) [address], [address] [place] [address] Glucose [Mass/Vol] 101 mg/dL High 65-99 [facility] Comment on above: Performed By: #### C BCA, BMP #### [facility] ([id number]) [address], [address] [place] [address] Potassium [Moles/Vol] 4.1 mmol/L Normal 3.5-5.0 [facility] Comment on above: Performed By: #### C BCA, BMP #### [facility] ([id number]) [address], [address] [place] [address] Sodium [Moles/Vol] 139 mmol/L Normal 134-146 [facility] Comment on above: Performed By: #### C BCA, BMP #### [facility] ([id number]) [address], [address] [place] [address] Urea nitrogen [Mass/Vol] 19 mg/dL Normal 5-27 [facility] Comment on above: Performed By: #### C BCA, BMP #### [facility] ([id number]) [address], [address] [place] [address] Basic Metabolic Panelon 10-0 Anion gap [Moles/Vol] 9 mmol/L 5 - 15 mmol/L [facility] Calcium [Mass/Vol] 9.8 mg/dL 8.5 - 10. 5 mg/dL [facility] Chloride [Moles/Vol] 103 mmol/L 98 - 109 mmol/L [facility] CO2 [Moles/Vol] 27 mmol/L 22 - 32 mmol/L [facility] Creatinine [Mass/Vol] 0.89 mg/dL 0.60 - 1.30 mg/dL [facility] Comment on above: METHOD TRACEABLE TO IDMS STANDARD eGFR (CKD-EPI)non-race dependent - PINF [facility] Comment on above: Reported eGFR is based on the CKD-EPI 2020 equation that does not use a race coefficient. Glucose [Mass/Vol] 101 mg/dL High 65 - 99 mg/dL [facility] Interpretation and review of laboratory results Abnormal [facility] Potassium [Moles/Vol] 4.1 mmol/L 3.5 - 5.0 mmol/L [facility] Sodium [Moles/Vol] 139 mmol/L 134 - 146 mmol/L [facility] Urea nitrogen [Mass/Vol] 19 mg/dL 5 - 27 mg/dL [facility] CBC AND AUTO DIFFon 04-04-20 ABSOLUTE BASOPHIL 0.0 X10E9/L Normal 0.0-0.2 [facility] Comment on above: Performed By: #### Manuela MAGALLON, BMP #### [facility] ([id number]) [address], [address] [place] [address] ABSOLUTE NEUTROPHIL 4.6 X10E9/L Normal 1.5-6.6 [facility] Comment on above: Performed By: #### Manuela MAGALLON, BMP #### [facility] ([id number]) [address], [address] [place] [address] Basophils/100 WBC (Bld) 0.4 % Normal [facility] Comment on above: Performed By: #### Manuela MAGALLON, BMP #### [facility] ([id number]) [address], [address] [place] [address] Eosinophils (Bld) [#/Vol] 0.1 10*3/uL Normal 0.0-0.4 [facility] Comment on above: Performed By: #### Manuela BCA, BMP #### [facility] ([id number]) [address], [address] [place] [address] Eosinophils/100 WBC (Bld) 1.8 % Normal [facility] Comment on above: Performed By: #### Manuela BCA, BMP #### [facility] ([id number]) [address], [address] [place] [address] Erythrocyte distribution width (RBC) [Ratio] 15.1 % High 11.5-15.0 [facility] Comment on above: Performed By: #### C BCA, BMP #### [facility] ([id number]) [address], [address] [place] [address] Hematocrit (Bld) [Volume fraction] 36.7 % Low 39-49 [facility] Comment on above: Performed By: #### C BCA, BMP #### [facility] ([id number]) [address], [address] [place] [address] Hemoglobin (Bld) [Mass/Vol] 12.5 g/dL Low 13.0-17.0 [facility] Comment on above: Performed By: #### C BCA, BMP #### [facility] ([id number]) [address], [address] [place] [address] Lymphocytes (Bld) [#/Vol] 1.4 10*3/uL Normal 1.0-3.5 [facility] Comment on above: Performed By: #### C BCA, BMP #### [facility] ([id number]) [address], [address] [place] [address] Lymphocytes/100 WBC (Bld) 21.3 % Normal [facility] Comment on above: Performed By: #### C BCA, BMP #### [facility] ([id number]) [address], [address] [place] [address] MCH (RBC) [Entitic mass] 30.1 pg Normal 27-34 [facility] Comment on above: Performed By: #### C BCA, BMP #### [facility] ([id number]) [address] [address] [place] [address] MCHC (RBC) [Mass/Vol] 34.0 g/dL Normal 32-36 [facility] Comment on above: Performed By: #### C BCA, BMP #### [facility] ([id number]) [address] [address] [place] [address] MCV (RBC) [Entitic vol] 89 fL Normal 80-100 [facility] Comment on above: Performed By: #### Manuela MAGALLON, BMP #### [facility] ([id number]) [address], [address] [place] [address] Monocytes (Bld) [#/Vol] 0.6 10*3/uL Normal 0-0.9 [facility] Comment on above: Performed By: #### C SHERITA, BMP #### [facility] ([id number]) [address], [address] [place] [address] Monocytes/100 WBC (Bld) 8.6 % Normal [facility] Comment on above: Performed By: #### Manuela MAGALLON, BMP #### [facility] ([id number]) [address], [address] [place] [address] Neutrophils/100 WBC (Bld) 67.9 % Normal [facility] Comment on above: Performed By: #### Manuela MAGALLON, BMP #### [facility] ([id number]) [address], [address] [place] [address] Platelet mean volume (Bld) [Entitic vol] 8.0 fL Normal 7-12 [facility] Comment on above: Performed By: #### C SHERITA, BMP #### [facility] ([id number]) [address], [address] [place] [address] Platelets (Bld) [#/Vol] 205 10*3/uL Normal 150-450 [facility] Comment on above: Performed By: #### C SHERITA, BMP #### [facility] ([id number]) [address], [address] [place] [address] RBC COUNT 4.14 X10E12/L Normal 4.10-5.70 [facility] Comment on above: Performed By: #### Manuela MAGALLON, BMP #### [facility] ([id number]) [address], [address] [place] [address] WBC (Bld) [#/Vol] 6.7 10*3/uL Normal 4.0-11.0 [facility] Comment on above: Performed By: #### C SHERITA, ABDON #### [facility] ([id number]) [address] [facility], [address] [place] [address] CBC auto differentialon 10-0 Basophils (Bld) [#/Vol] 0.0 10*3/uL [facility] Basophils/100 WBC (Bld) 0.4 % [facility] Eosinophils (Bld) [#/Vol] 0.1 10*3/uL [facility] Eosinophils/100 WBC (Bld) 1.8 % [facility] Erythrocyte distribution width (RBC) [Ratio] 15.1 % High 11.5 - 15.0 % [facility] Hematocrit (Bld) [Volume fraction] 36.7 % Low 39 - 49 % [facility] Hemoglobin (Bld) [Mass/Vol] 12.5 g/dL Low 13.0 - 17.0 g/dL [facility] Interpretation and review of laboratory results Abnormal [facility] Lymphocytes (Bld) [#/Vol] 1.4 10*3/uL [facility] Lymphocytes/100 WBC (Bld) 21.3 % [facility] MCH (RBC) [Entitic mass] 30.1 pg 27 - 34 pg [facility] MCHC (RBC) [Mass/Vol] 34.0 g/dL 32 - 36 g/dL [facility] MCV (RBC) [Entitic vol] 89 fL 80 - 100 fL [facility] Monocytes (Bld) [#/Vol] 0.6 10*3/uL [facility] Monocytes/100 WBC (Bld) 8.6 % [facility] Neutrophils (Bld) [#/Vol] 4.6 10*3/uL [facility] Neutrophils/100 WBC (Bld) 67.9 % [facility] Platelet mean volume (Bld) [Entitic vol] 8.0 fL 7 - 12 fL [facility] Platelets (Bld) [#/Vol] 205 10*3/uL [facility] RBC (Bld) [#/Vol] 4.14 10*6/uL [facility] WBC corrected for nucl RBC Auto (Bld) [#/Vol] 6.7 [facility] ECG 12 leadon 04-04-2024 [facility]AST[facility] Ambulatory Visit Summaryon 0 02-07-2024 [...] Strength 500 mg oral tablet) acetaminophen-hydroco done (Sutton 325 mg-5 mg oral tablet) ascorbic acid [...] Follow Up with PAMELA BAER, Mac Stephenson, URL When: Where: [facility] [address] [place] [address]- Medications What How Much When Instructions Unchanged [...] if questions or concerns Unchanged acetaminophen-hydroco done (Sutton 325 mg-5 mg oral tablet) 1 Tablets [...] 49 ye (more content not included)... Normal [facility] Urology Office/Clinic Noteon 02-07-2024 Urology Office/Clinic [...] sexual complaints. Follow-up With When Contact Information PAMELA BAER, Mac Stephenson, FEROZ [facility] [address], [place] [address]- Additional Instructions: 1 yr Patient Education Benign [...] tablet, 200 mg= 1 tab(s), Oral, q24hr Sutton 325 mg-5 mg oral tablet, 1 tab(s), [...] 1 c (more content not included)... Normal [facility] Comment on above: Result Comment: Elec tronically Signed By: Mac SANTIAGO MD\.br\Date and Time Signed: 02/07/24 11:34 EDT\.br\Electronically Co-Signed By: Linda George.br\Date and Time Co-Signed: 02/07/24 11:32 EDT XR Hip - right 3 Viewson Imaging Result: August 09, 2013 x-rays AP and frog lateral of the right hip demonstrate a Press-Fit hip replacement in good position alignment without signs of loosening fracture or failure. Impression: Stable appearance of right total hip replacement Amauri Blair D.O. [facility] Radiology Study observation (narrative) [facility] [employer] XR Hip - right 3 ViewsOrdere d By: Charissa Blair on 08-09-2023 [facility] Work Phone: XR HIP RT 2-3 VIEWS W OR WO PELVISon 07-07-2023 XR HIP RT 2-3 VIEWS W OR WO PELVIS XR HIP RT 2-3 VIEWS W OR WO PELVIS XR HIP RT 2-3 VIEWS W OR WO PELVIS HISTORY: Hip replacement. COMPARISON: None. IMPRESSION: 1. Hip prosthesis noted without visible acute complication Finalized by Price Delcid MD on 07/07/2023 11:06 AM [facility] CNOVon 04-13-2023 CNOV Office Visit (SPSLUH ) LAWSON VELA ([id number]) 1955 [facility] Date Time Provider Department 04/13/23 11:00 AM LAILA LEWIS SPSLUH During your visit today, we recorded the [...] a week. 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 Impression dictated by: Lenny Cobian Jr., HildaOFabio12/17/2022 3:16 PM Dictation Location: [place] [address] Transcribed By: [facility] 12/17/22 1516 Dictated By: Lenny Cobian Jr, DO 12/17/22 1514 Signed By: 12/17/22 1516 Normal [facility] XR lumbar spine 6V w bending [facility] [employer] Other XR lumbar spine 6V w bending [facility] [employer] [facility] [employer] Other XR lumbar spine 6V w bending [address] [place] [address] [employer] [facility] [employer] Other XR lumbar spine 6[place] [address] [employer] Other XR lumbar spine 6V w bending XRay Report [employer] Other XR lumbar spine 6V w bending Signed [employer] Other XR lumbar spine 6V w bending Patient: Lawson Vela MR#: [id number] [employer] Other XR lumbar spine 6V w bending : 1955 Acct:[id number] [employer] Other XR lumbar spine 6V w bending Age/Sex: 67 / M ADM Date: 12/17/22 [employer] Other XR lumbar spine 6V w bending Loc: XD Room: Type: [facility] [employer] Other XR lumbar spine 6V w bending Attending Dr: Erica MILLER [employer] Other XR lumbar spine 6V w bending Copies to: ANGELA Khan [employer] Other XR lumbar spine 6V w bending Ordering Provider: ANGELA Khan [employer] Other XR lumbar spine 6V w bending Date of Service: 12/17/22 [employer] Other XR lumbar spine 6V w bending XR/XR lumbar spine 6V w bending: M54.16 [employer] Other XR lumbar spine 6V w bending LUMBAR SPINE - 6 views [employer] Other XR lumbar spine 6V w bending CLINICAL HISTORY: Right leg pain and numbness that radiates to toes [employer] Other XR lumbar spine 6V w bending COMPARISON: None [employer] Other XR lumbar spine 6V w bending FINDINGS: Vertebral body heights appear maintained. Diffuse endplate and facet joint degenerative [employer] Other XR lumbar spine 6V w bending changes. Mild diffuse disc space narrowing with relative sparing of L5-S1. No pathological motion [employer] Other XR lumbar spine 6V w bending on flexion or extension views. Limited sidebending. [employer] Other XR lumbar spine 6V w bending XR/XR lumbar spine 6V w bending [employer] Other XR lumbar spine 6V w bending IMPRESSION: [employer] Other XR lumbar spine 6V w bending DEGENERATIVE CHANGES OF THE LUMBAR SPINE WITH MILD DIFFUSE DISC SPACE NARROWING WITH RELATIVE [employer] Other XR lumbar spine 6V w bending SPARING OF L5-S1. [employer] Other XR lumbar spine 6V w bending Impression dictated by: Lenny Cobian Jr., Belle12/17/2022 3:16 PM [employer] Other XR lumbar spine 6V w bending Dictation Location: [place] [address] [employer] Other XR lumbar spine 6V w bending Transcribed By: PWS 12/17/22 [facility] [employer] Other XR lumbar spine 6V w bending Dictated By: Lenny Cobian Jr, DO 12/17/22 [facility] [employer] Other XR lumbar spine 6V w bending Signed By: [employer] Other XR lumbar spine 6V w bending 12/17/22 [facility] [place] [employer] Other XR HIPS JAIRO 3_4V WO PELVISon [...] by: DEVIN KNAPP Date: 2022-11-13 13:07 Normal [facility] MRI Lumbar Spine w/oon 05-01 [...] by YASMANY ARAYA on 05/01/2022 1217 Normal [facility] Medical Social Consultant XR Orbits for MRIon 04-27-20 22 XR Orbits for MRI CLINICAL HISTORY: Prescreening for MRI. COMPARISON: None. RESULT: No radiopaque foreign bodies. No acute osseous findings. IMPRESSION: No radiopaque foreign bodies. Report reported and signed by Javad Dickens on 04/27/2022 1540 Normal [facility] Medical Social Consultant XR Spine Lumbar 4+ Views*on 04-06-2022 XR [...] by Lenny Cook on 04/06/2022 1106 Normal [facility] Specialist Vital Signs Date Time Vital Sign Value Performing Clinician Facility 06-14-2024 09:36-0500 Body height 185.4 cm Javad Donato MD Work Phone: [facility] 06-14-2024 09:36-0500 Body mass index (BMI) [Ratio] 37.6 kg/m2 Javad Donato MD Work Phone: [facility] 06-14-2024 09:36-0500 Body weight 129.28 kg Javad Donato MD Work Phone: [facility] 06-14-2024 09:36-0500 Diastolic blood pressure 70 mm[Hg] Javad Donato MD Work Phone: [facility] 06-14-2024 09:36-0500 Heart rate 98 /min Javad Donato MD Work Phone: [facility] 06-14-2024 09:36-0500 SaO2% (BldA) [Mass fraction] 97 % Javad Donato MD Work Phone: [facility] 06-14-2024 09:36-0500 Systolic blood pressure 126 mm[Hg] Javad Donato MD Work Phone: [facility] 04-17-2024 13:49-0400 Body height 185.4 cm Javad Donato MD Work Phone: [facility] 04-17-2024 13:49-0400 Body mass index (BMI) [Ratio] 37.6 kg/m2 Jaavd Donato MD Work Phone: [facility] 04-17-2024 13:49-0400 Body weight 129.28 kg Javad Donato MD Work Phone: [facility] 04-17-2024 13:49-0400 Diastolic blood pressure 68 mm[Hg] Javad Donato MD Work Phone: [facility] 04-17-2024 13:49-0400 Heart rate 96 /min Javad Donato MD Work Phone: [facility] 04-17-2024 13:49-0400 SaO2% (BldA) [Mass fraction] 98 % Javad Donato MD Work Phone: [facility] 04-17-2024 13:49-0400 Systolic blood pressure 128 mm[Hg] Javad Donato MD Work Phone: [facility] 04-06-2024 11:31-0400 Body height 185.4 cm Charissa Blair DO Work Phone: [facility] 04-06-2024 11:31-0400 Body mass index (BMI) [Ratio] 38.16 kg/m2 Charissa Blair DO Work Phone: [facility] 04-06-2024 11:31-0400 Body weight 131.18 kg Charissa Blair DO Work Phone: [facility] 04-04-2024 09:12-0400 Body height 185.4 cm [facility] 1 [facility] 04-04-2024 09:12-0400 Body mass index (BMI) [Ratio] 37.34 kg/m2 [facility] 1 [facility] 04-04-2024 09:12-0400 Body weight 128.37 kg Pmh 1 [facility] 02-17-2024 10:18-0400 Body height 185.4 cm Alma HERNANDEZ Work Phone: [facility] 02-17-2024 10:18-0400 Body mass index (BMI) [Ratio] 38.26 kg/m2 Alma HERNANDEZ Work Phone: [facility] 02-17-2024 10:18-0400 Body weight 131.54 kg Alma Hemmer PA Work Phone: [facility] 02-17-2024 10:18-0400 Diastolic blood pressure 78 mm[Hg] Alma Hemmer PA Work Phone: [facility] 02-17-2024 10:18-0400 Heart rate 82 /min Alma Hemmer PA Work Phone: [facility] 02-17-2024 10:18-0400 SaO2% (BldA) [Mass fraction] 96 % Alma Hemmer PA Work Phone: [facility] 02-17-2024 10:18-0400 Systolic blood pressure 136 mm[Hg] Alma Hemmer PA Work Phone: [facility] 02-07-2024 10:23-0400 Blood Pressure Location Macmichelle SANTIAGO [facility] 02-07-2024 10:23-0400 Body temperature 98.6 [degF] Mac SANTIAGO [facility] 02-07-2024 10:23-0400 Diastolic blood pressure 82 mm[Hg] Mac SANTIAGO [facility] 02-07-2024 10:23-0400 Heart rate 75 /min Mac SANTIAGO [facility] 02-07-2024 10:23-0400 Respiratory rate 16 /min Mac SANTIAGO [facility] 02-07-2024 10:23-0400 Systolic blood pressure 132 mm[Hg] Mac SANTIAGO [facility] 12-17-2022 13:00-0400 Body height 182.88 cm Erica Xiong Other [employer] Other 12-17-2022 13:00-0400 Body mass index (BMI) [Ratio] 38.51 kg/m2 Erica X[employer] Other [employer] Other 12-17-2022 13:00-0400 Body weight 128.82 kg Erica Xiong Other [employer] Other 12-17-2022 13:00-0400 Diastolic blood pressure 88 mm[Hg] Erica Xiong Other [employer] Other 12-17-2022 13:00-0400 Systolic blood pressure 146 mm[Hg] Erica Xiong Other [facility] [employer] Other 06-01-2022 11:29-0500 Blood Pressure Location Macmichelle SANTIAGO [facility] 06-01-2022 11:29-0500 Diastolic blood pressure 76 mm[Hg] Mac SANTIAGO [facility] 06-01-2022 11:29-0500 Heart rate 70 /min Mac SANTIAOG [facility] 06-01-2022 11:29-0500 Respiratory rate 16 /min Mac SANTIAGO [facility] 06-01-2022 11:29-0500 Systolic blood pressure 128 mm[Hg] Mac SANTIAGO [facility] 02-16-2022 10:28-0400 Blood Pressure Location Mac SANTIAGO [facility] 02-16-2022 10:28-0400 Diastolic blood pressure 84 mm[Hg] Mac SANTIAGO [facility] 02-16-2022 10:28-0400 Heart rate 68 /min Mac PAMELA [facility] 02-16-2022 10:28-0400 Respiratory rate 16 /min Mac SANTIAGO [facility] 02-16-2022 10:28-0400 Systolic blood pressure 136 mm[Hg] Mac SANTIAGO [facility] Encounters Encounter Date Encounter Type Care Provider Facility Start: 02-05-2025 ambulatory Mac SANTIAGO Facili ty:[facility] Start: 06-14-2024 End: 06-14-2024 Bamboo flowsheet Javad Donato MD Work Phone: [facility] Start: 06-14-2024 End: 06-14-2024 Bamboo flowsheet Jaavd Donato MD Work Phone: [facility] Start: 06-14-2024 End: 06-14-2024 Assay of hemosiderin, quant Javad Donato MD Work Phone: [facility] Start: 06-14-2024 End: 06-14-2024 Patient encounter procedure Javad Donato MD Work Phone: [facility] Comment on above: Routine general medi ofelia examination at health care facility (Primary Dx); ACP (advance care planning); Benign essential hypertension (CMS/HCC); IGT (impaired glucose tolerance); Atherosclerosis of aorta (CMS/HCC); Class 2 severe obesity with serious comorbidity and body mass index (BMI) of 37.0 to 37.9 in adult, unspecified obesity type (CMS/HCC); Screening for prostate cancer; Flu vaccine need; Herniated lumbar disc without myelopathy; Claudication (CMS/HCC) Start: 06-12-2024 End: 06-12-2024 Bamboo flowsheet Jose Hernández STATION INSTALLATION SUPERVISOR Work Phone: [facility] Start: 06-12-2024 End: 06-12-2024 Bamboo flowsheet Jose Hernández STATION INSTALLATION SUPERVISOR Work Phone: [facility] Start: 06-12-2024 End: 06-12-2024 Postop follow up visit related to original px Jose Hernández STATION INSTALLATION SUPERVISOR Work Phone: [facility] Comment on [...] 05-08-2024 End: 05-08-2024 Telephone encounter Jose Hernández STATION INSTALLATION SUPERVISOR Work Phone: [facility] Start: 05-04-2024 End: 05-04-2024 Telephone encounter Charissa Rose Rossy DO Work Phone: [facility] Comment on above: Discharge Start: 05-03-2024 End: 05-03-2024 ambulatory CHARISSA TIJERINADLESTON [facility] Start: 05-02-2024 End: 05-02-2024 Refill Jose Hernández STATION INSTALLATION SUPERVISOR Work Phone: [facility] Comment on [...] hi p replacement Start: 04-06-2024 End: 04-06-2024 Bamboo flowsheet Jose Hernández STATION INSTALLATION SUPERVISOR Work Phone: [facility] Start: 04-06-2024 End: 04-06-2024 Bamboo flowsheet Jose Hernández STATION INSTALLATION SUPERVISOR Work Phone: [facility] Start: 04-06-2024 End: 04-06-2024 Office outpatient visit 40 minutes Charissa Blair DO Work Phone: [facility] Comment on above: Left hip pain; Arthritis of left hip Start: 04-06-2024 End: 04-06-2024 ambulatory CHARISSA BLAIR Not Available Start: 04-04-2024 End: 04-04-2024 Patient encounter procedure [facility] Pre-Admission Testing 1 [facility] - Pre Admit Comment on above: Preop examination (P rimary Dx); Hypertension, unspecified type Start: 04-04-2024 End: 04-04-2024 Preprocedural examination done Pm 1 [facility] Start: 04-04-2024 End: 04-04-2024 ambulatory CHARISSA BLAIR [facility] Start: 03-15-2024 End: 03-15-2024 Telephone encounter Nagi Plata PT Work Phone: [facility] Start: 02-17-2024 End: 02-17-2024 Office outpatient visit 15 minutes Alma Mcclendon PA Work Phone: [facility] Comment on above: Acute pharyngitis, u nspecified etiology (Primary Dx) Start: 02-17-2024 End: 02-17-2024 ambulatory ALMA MCCLENDON Not Available Start: 02-07-2024 End: 02-07-2024 ambulatory Mac SANTIAGO Facility:[facility] Start: 02-07-2024 End: 02-07-2024 Patient encounter procedure Mac SANTIAGO [facility] Start: 01-27-2024 End: 01-27-2024 ambulatory CHARISSA BLAIR Not Available Start: 01-21-2024 End: 01-21-2024 ambulatory ALMA MCCLENDON Not Available Start: 12-16-2023 End: 12-16-2023 ambulatory CHARISSA BLAIR Not Available Start: 12-13-2023 End: 12-13-2023 ambulatory JOSE HERNÁNDEZ Not Available Start: 11-01-2023 End: 11-01-2023 ambulatory JOSE HERNÁNDEZ Not Available Start: 09-20-2023 End: 09-20-2023 ambulatory JOSE HERNÁNDEZ Not Available Start: 08-27-2023 End: 08-27-2023 ambulatory NAGI Snow BONI Not Available Start: 08-23-2023 End: 08-23-2023 ambulatory NAGI J BONI Not Available Start: 08-20-2023 End: 08-20-2023 ambulatory JEANNA MENDIOLA Not Available Start: 08-16-2023 End: 08-16-2023 ambulatory JEANNA MENDIOLA Not Available Start: 08-13-2023 End: 08-13-2023 ambulatory NAGI Snow BONI Not Available Start: 08-09-2023 Bamboo flowsheet Jeanna Wrig ht [employer]PERINTENDENT [employer]ICE Work Phone: [facility] Start: 08-09-2023 Bamboo flowsheet Jeanna Wrig ht [employer]ENT [employer] Work Phone: [facility] Start: 08-09-2023 End: 08-09-2023 Postop follow up visit related to original px Jose Hernández STATION INSTALLATION SUPERVISOR Work Phone: [facility] Comment on above: 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; Status post right hip replacement Start: 08-09-2023 End: 08-09-2023 ambulatory Jeannaluis Mendiola [employer] Work Phone: [facility] Comment on above: Right hip pain (Prim billie Dx); Status post total hip replacement, right; Arthritis of right hip Start: 08-06-2023 End: 08-06-2023 ambulatory Jeanna Mendiola [employer]ENT [employer] Work Phone: [facility] Comment on above: Right hip pain (Prim billie Dx); Status post total hip replacement, right; Arthritis of right hip Start: 08-02-2023 Bamboo flowsheet Jeanna Wrig ht SUPERINTENDENT POLICE Work Phone: [facility] Start: 08-02-2023 Bamboo flowsheet Jeanna finney SUPERINTENDENT POLICE Work Phone: [facility] Start: 08-02-2023 End: 08-02-2023 ambulatory Jeanna Mendiola [employer]PER[employer]ENT [employer]ICE Work Phone: [facility] Comment on [...] Start: 07-08-2023 End: 07-08-2023 ambulatory DEVIN SAUL [facility] Start: 07-07-2023 End: 07-08-2023 ambulatory [facility] Start: 07-07-2023 End: 07-07-2023 ambulatory [facility] Start: 07-05-2023 End: 07-05-2023 ambulatory [facility] Start: 07-05-2023 Encounter for other preprocedural examination [facility] Start: 06-30-2023 End: 06-30-2023 ambulatory JAVAD DONATO Not Available Start: 04-13-2023 End: 04-13-2023 ambulatory LAILA LEWIS [facility] Start: 04-13-2023 End: 04-13-2023 Patient encounter procedure Laila Lewis PA-C Work Phone: [facility] [place] Comment on above: Spinal stenosis, lum bar region with neurogenic claudication (Primary Dx); Bilateral hip joint arthritis Start: 01-28-2023 Chart abstracting Camron Mix MD Work Phone: Neurology Start: 12-17-2022 End: 12-17-2022 Patient encounter procedure II Javad Donato Work Phone: [facility] [place] Work Phone: Start: 12-17-2022 End: 12-17-2022 ambulatory II Javad Donato Work Phone: [facility] Work Phone: Start: 12-17-2022 Encounter for other specified special examinations [facility] Start: 12-17-2022 Office outpatient ne w 45 minutes [facility] Start: 11-24-2022 End: 11-25-2022 ambulatory NARENDRANATH LAKSHMIPATHY . Facility:[facility] Start: 11-13-2022 End: 11-14-2022 ambulatory NARENDRANATH LAKSHMIPATHY . Facility:[facility] Start: 11-10-2022 End: 11-11-2022 ambulatory NARENDRANATH LAKSHMIPATHY . Facility:[facility] Start: 10-08-2022 End: 10-09-2022 ambulatory NARENDRANATH LAKSHMIPATHY . Facility:[facility] Start: 09-10-2022 End: 09-11-[address] ANTIONE HAWTHORNE . Facility:[facility] Start: 08-13-2022 Encounter for preprocedural cardiovascular examination DR ANTIONE HAWTHORNE . [facility] Start: 08-11-2022 End: 08-11-2022 ambulatory [...] procedure Mac SANTIAGO [facility] Start: 05-19-2022 End: 05-20-[address] ANTIONE HAWTHORNE . Facility:[facility] Start: 05-05-2022 End: 05-05-[address] ANTIONE HAWTHORNE . Facility:[facility] Start: 04-28-2022 End: 04-29-[address] ANTIONE HAWTHORNE . Facility:[facility] Start: 04-27-2022 End: 05-14-[address] JAVAD DONATO Facility:[facility] Start: 02-16-2022 End: 02-16-2022 Patient encounter procedure Mac Sachin SANTIAGO [facility] Procedures Date Procedure Procedure Detail Performing Clinician Start: 06-12-2024 Radex hip unilateral with pelvis 2-3 views Jose Hernández STATION INSTALLATION SUPERVISOR Work Phone: Start: 04-06-2024 Radex hip unilateral with pelvis 2-3 views Charissa Blair DO Work Phone: Start: 08-09-2023 Radex hip unilateral with pelvis 2-3 views Jose Hernández STATION INSTALLATION SUPERVISOR Work Phone: Start: 12-17-2022 X-ray of lumbar spin e, six views including bending views SIMONA Donato Work Phone: Start: 04-22-2021 Urodynamic studies Linhr alex SANTIAGO Start: 11-26-2020 Cystoscopy Mac KAPADIA [...] Td Vaccines (2 - Td or Tdap) [facility] Start: 07-12-2027 Screening for malign ant neoplasm of colon [facility] Start: 06-14-2025 Medicare Annual Wellness (AWV) Medicare Annual Wellness (AWV) [facility] Start: 04-04-2025 Adult BMI Screening Adult BMI Screen ing [facility] Start: 04-04-2025 Tobacco Screening Tobacco Screening [facility] Start: 07-03-2024 End: 07-03-2024 Patient encounter procedure 07/03/2024 10:30 AM EST Office Visit [facility] [address] [place] [phone] Jose Hernández, STATION INSTALLATION SUPERVISOR [address] [place] [place], [place] [id number] [facility] Start: 06-20-2024 End: 06-20-2024 ambulatory 06/20/2024 7:00 AM EST Evaluation [facility] [address] [place] [phone] Nagi Plata, PT [address] [place] [address] [facility] Start: 06-14-2024 End: 06-14-2025 CBC panel - Blood by Automated count CBC Lab Routine Benign essential hypertension (CMS/HCC) IGT (impaired glucose tolerance) Atherosclerosis of aorta (CMS/HCC) Class 2 severe obesity with serious comorbidity and body mass index (BMI) of 37.0 to 37.9 in adult, unspecified obesity type (CMS/HCC) Expected: 06/14/2024 (Approximate), Expires: 06/14/2025 [facility] Comment on above: Expected: 06/14/2024 (Approximate), Expires: 06/14/2025 Start: 06-14-2024 End: 06-14-2025 Comprehensive metabolic 2000 panel - Serum or Plasma Comprehensive metabolic panel Lab Routine Benign essential hypertension (CMS/HCC) IGT (impaired glucose tolerance) Atherosclerosis of aorta (CMS/HCC) Class 2 severe obesity with serious comorbidity and body mass index (BMI) of 37.0 to 37.9 in adult, unspecified obesity type (CMS/HCC) Expected: 06/14/2024 (Approximate), Expires: 06/14/2025 [facility] Comment on above: Expected: 06/14/2024 (Approximate), Expires: 06/14/2025 Start: 06-14-2024 End: 06-14-2025 Hemoglobin A1c/Hemoglobin.total in Blood Hemoglobin A1c Lab Routine Benign essential hypertension (CMS/HCC) IGT (impaired glucose tolerance) Atherosclerosis of aorta (CMS/HCC) Class 2 severe obesity with serious comorbidity and body mass index (BMI) of 37.0 to 37.9 in adult, unspecified obesity type (CMS/HCC) Expected: 06/14/2024 (Approximate), Expires: 06/14/2025 [facility] Comment on above: Expected: 06/14/2024 (Approximate), Expires: 06/14/2025 Start: 06-14-2024 End: 06-14-2025 Lipid 1996 panel - Serum or Plasma Lipid panel Lab Routine Benign essential hypertension (CMS/HCC) IGT (impaired glucose tolerance) Atherosclerosis of aorta (CMS/HCC) Class 2 severe obesity with serious comorbidity and body mass index (BMI) of 37.0 to 37.9 in adult, unspecified obesity type (CMS/HCC) Expected: 06/14/2024 (Approximate), Expires: 06/14/2025 [facility] Comment on above: Expected: 06/14/2024 (Approximate), Expires: 06/14/2025 Start: 06-14-2024 End: 06-14-2025 Prostate specific Ag [Mass/volume] in Serum or Plasma PSA Lab Routine Screening for prostate cancer Expected: 06/14/2024 (Approximate), Expires: 06/14/2025 [facility] Work Phone: Comment on above: Expected: 06/14/2024 (Approximate), Expires: 06/14/2025 Start: 06-14-2024 End: 06-14-2025 US.doppler Lower extremity artery - bilateral Vascular US lower extremity arterial duplex bilateral Imaging Routine Claudication ([facility]/HCC) Expected: 06/14/2024, Expires: 06/14/2025 [facility] Comment on above: Expected: 06/14/2024 , Expires: 06/14/2025 Start: 06-14-2024 End: 06-14-2024 Patient encounter procedure [facility] Comment on above: Arrived Start: 06-12-2024 End: 06-12-2024 Patient encounter procedure [facility] Comment on above: Arrived Start: 05-17-2024 Medicare Annual Wellness (AWV) Medicare Annual Wellness (AWV) [facility] Start: 05-16-2024 End: 05-16-2024 Patient encounter procedure [facility] Comment on above: Arrived Start: 05-11-2024 End: 05-11-2024 Patient encounter procedure 05/11/2024 10:45 AM EST Office Visit [facility] [address] [place] [address] Charissa Blair, DO [address] [place] [address] [facility] Start: 05-09-2024 End: 05-09-2024 Patient encounter procedure 05/09/2024 10:30 AM EST Office Visit [facility] [address] [place] [address] Charissa Blair, [address] [place] [address] [facility] Start: 05-03-2024 End: 05-03-2024 Admission to same day surgery center 05/03/2024 7:45 AM EST - 05/03/2024 10:00 AM EST Surgery [facility] Surgery [address] [place] [phone] Charissa Blair, DO [address] [place] [address] REPLACEMENT TOTAL JOINT HIP [51153 (CPT )] [facility] Comment on above: REPLACEMENT TOTAL BEKA INT HIP [42482 (CPT )] Start: 05-03-2024 End: 05-03-2024 Arthrp acetblr/prox fem prostc agrft/algrft REPLACEMENT TOTAL JOINT HIP left hip degenerative joint disease 05/03/2024 7:45 AM EST [facility] Start: 05-03-2024 Subsequent hospital visit by physician 05/03/2024 7:45 AM EST Hospital Encounter [facility] [address] [place] [address] Charissa Blair, DO [address] [place] [address] [facility] Start: 05-03-2024 End: 05-03-2024 Patient encounter procedure 05/03/2024 7:30 AM EST Procedure Visit [facility] Charissa Blair, DO [address] [place] [address] [facility] Start: 04-24-2024 End: 03-06-2025 Crossmatch RBC Crossmatch RBC Blood Bank Routine Preop examination Hypertension, unspecified type Expected: 04/24/2024, Expires: 03/06/2025 [facility] Comment on above: Expected: 04/24/2024 , Expires: 03/06/2025 Start: 04-24-2024 End: 03-06-2025 Type and screen(includes indirect phill) Type and screen(includes indirect phill) Blood Bank Routine Preop examination Hypertension, unspecified type Expected: 04/24/2024, Expires: 03/06/2025 [facility] Work Phone: Comment on above: Expected: 04/24/2024 , Expires: 03/06/2025 Start: 04-17-2024 End: 04-17-2024 Patient encounter procedure [facility] Comment on above: Arrived Start: 04-06-2024 End: 04-06-2024 Patient encounter procedure [facility] Comment on above: Left hip pain; Arthritis of left hip Start: 03-08-2024 End: 03-08-2024 Patient encounter procedure 03/08/2024 11:15 AM EDT Office Visit [facility] [address] [facility] [address] [place] [phone] Javad Donato MD [address] [facility] [address] [place] [address] [facility] Start: 02-27-2024 Influenza vaccination P [facility] Start: 09-20-2023 End: 09-20-2023 Patient encounter procedure 09/20/2023 10:30 AM EDT Office Visit [facility] [address] [place] [phone] Jose Hernández, STATION INSTALLATION SUPERVISOR [address] [place] [address] [facility] Start: 08-27-2023 End: 08-27-2023 ambulatory 08/27/2023 9:30 AM EST Treatment [facility] [address] [place] [phone] Nagi Plata, PT [address] [place] [address] [facility] Start: 08-23-2023 End: 08-23-2023 ambulatory 08/23/2023 9:30 AM EST Treatment [facility] [address] [place] [phone] Jeanna Mendiola, [employer]PER[employer]ENT [employer]ICE [address] [place] [address] [facility] Start: 08-20-2023 End: 08-20-2023 ambulatory 08/20/2023 9:30 AM EST Treatment [facility] [address] [place] [phone] Jeanna Mendiola, [employer]PER[employer]ENT [employer] [address] [place] [address] [facility] Start: 08-16-2023 End: 08-16-2023 ambulatory 08/16/2023 9:30 AM EST Treatment [facility] [address] [place] [phone] Jeanna Mendiola, [employer] [address] [place] [address] [facility] Start: 08-13-2023 End: 08-13-2023 ambulatory 08/13/2023 9:30 AM EST Treatment [facility] [address] [place] [phone] Naig Plata, PT [address] [place] [address] [facility] Start: 08-09-2023 End: 08-09-2023 Patient encounter procedure 08/09/2023 1:00 PM EST Office Visit [facility] [address] [place] [phone] Jose Hernández, STATION INSTALLATION SUPERVISOR [address] [place] [address] [facility] Start: 08-09-2023 End: 08-09-2023 ambulatory [facility] Comment on above: Arrived Start: 08-06-2023 End: 08-06-2023 ambulatory 08/06/2023 9:30 AM EST Treatment [facility] [address] [place] [phone] Jeanna Mendiola, [employer]PER[employer]ENT [employer] [address] [place] [address] [facility] Start: 08-02-2023 End: 08-02-2023 ambulatory [facility] Comment on above: Arrived Start: 02-26-2023 Influenza vaccination C [facility] Start: 06-28-2022 ADVANCE DIRECTIVE DISCUSSION ADVANCE DIRECTIVE DISCUSSION [facility] Start: 06-28-2022 DEPRESSION ASSESSMENT DEPRESSION ASS ESSMENT [facility] Start: 2019 Abdominal aortic aneurysm screening Abdominal Aortic Aneurysm (AAA) Screen [facility] Start: 2019 Fall Risk Screening [facility] [facility] Start: 2019 PNEUMOCOCCAL: 65+ (1 - PCV) PNEUMOCOCCAL: 65+ (1 - PCV) [facility] Start: 07-08-2015 Administration of varicella zoster vaccine Zoster (Shingles) Vaccine (2 of 3) [facility] Start: 07-08-2015 Shingrix Vaccine (2 of 3) Shingrix Vaccine (2 of 3) [facility] Start: 2014 RSV Vaccine (1 - 1-d ose 60+ series) RSV Vaccine (1 - 1-dose 60+ series) [facility] Start: 01-02-2004 SHINGRIX VACCINE (1 of 2) SHINGRIX VACCINE (1 of 2) [facility] Start: 1999 COLOGUARD (FIT-DNA) COLOGUARD (FIT-D NA) [facility] Start: [address] [facility] Start: 1999 COLORECTAL CANCER SCREENING COLORECTAL CANCER SCREENING [facility] Start: [address] COLONOGRAPHY [facility] Start: 1999 DIABETES SCREEN DIABETES SCREEN [facility] Start: 1999 Diabetes Screening Diabetes Screenin g [facility] Start: 1999 FECAL OCCULT BLOOD FECAL OCCULT BLOO D [facility] Start: 1999 SIGMOIDOSCOPY SIGMOIDOSCOPY [facility] Start: 1989 Lipid 1996 panel - Serum or Plasma Lipid Screening [facility] Start: 1989 LIPID SCREEN LIPID SCREEN [facility] Start: [address] [facility] Start: 01-02-1972 Adult BMI Follow Up Plan Adult BMI Follow Up Plan [facility] Start: 01-02-1972 HEPATITIS C SCREENING HEPATITIS C SC REENING [facility] Start: 1966 Depression Screening Depression Scre ening [facility] Start: 1954 COVID-19 VACCINE (#1) COVID-19 VACCI NE (#1) [facility] Start: 1954 Abdominal Aortic Aneurysm Screening Abdominal Aortic Aneurysm Screening [facility] Start: 1954 Medicare Annual Wellness Visit Medicare Annual Wellness Visit [facility] Start: 1954 Screening for malign ant neoplasm of colon [facility] End: 05-12-2024 XR HIP BILATERAL 5V PEL/AP/LAT EACH HIP XR HIP BILATERAL 5V PEL/AP/LAT EACH HIP Radiology Routine Bilateral hip joint arthritis 1 Occurrences starting 04/13/2023 until 05/12/2024 [facility] Work Phone: Comment on above: 1 Occurrences starti ng 04/13/2023 until 05/12/2024 [facility] Immunizations Immunization Date Immunization Notes Care Provider Fa noreen 06-14-2024 Influenza, High-dose Seasonal, Quadrivalent, Preservative Free Javad Donato MD Work Phone: [facility] 05-18-2023 RSV, recombinant, protein subunit RSVpreF, adjuvant reconstitu, 120mcg/0.5mL, PF (Arexvy) Nagi Plata PT Work Phone: [facility] Work Phone: 05-18-2023 tetanus toxoid, redu sri diphtheria toxoid, and acellular pertussis vaccine, adsorbed Nagi Boni PT Work Phone: [facility] 05-17-2023 Influenza, High-dose Seasonal, Quadrivalent, Preservative Free Nagi Boni PT Work Phone: [facility] 05-17-2023 influenza virus vaccine, unspecified formulation Nagi Boni PT Work Phone: [facility] 04-03-2022 influenza, high dose seasonal, preservative-free Nagi Boni PT Work Phone: [facility] 04-03-2022 Influenza, High-dose Seasonal, Quadrivalent, Preservative Free Nagi Boni PT Work Phone: [facility] 04-03-2022 influenza virus vaccine, unspecified formulation Laila Lewis PA-C Work Phone: [facility] 05-21-2020 influenza virus vaccine, unspecified formulation Mac SANTIAGO [facility] 05-21-2020 influenza, injectabl e, quadrivalent, contains preservative Nagi Boni PT Work Phone: [facility] 05-21-2020 pneumococcal conjuga te vaccine, 13 valent Nagi Boni PT Work Phone: [facility] 04-10-2020 influenza virus vaccine, unspecified formulation Macmichelle SANTIAGO [facility] 05-03-2019 influenza, injectabl e, madin sancho canine kidney, preservative free Nagi Boni PT Work Phone: [facility] 05-03-2019 pneumococcal polysaccharide vaccine, 23 valent Nagi Boni PT Work Phone: [facility] 05-02-2018 influenza virus vaccine, unspecified formulation Mac SANTIAGO [facility] 05-02-2018 seasonal influenza, intradermal, preservative free Nagi Boni PT Work Phone: [facility] 06-07-2017 influenza virus vaccine, unspecified formulation Mac SANTIAGO [facility] 06-07-2017 influenza, injectabl e, quadrivalent, contains preservative Nagi Boni PT Work Phone: [facility] 05-13-2015 zoster vaccine, live Nagi Sp collado PT Work Phone: [facility] 05-13-2015 zoster vaccine, unspecified formulation [facility] 1 [facility] NEGATED: Highlighted row has not occurred!08-18-2021 SARS-CoV-2 (COVID-19) Ad26 vaccine, recombinant Mac SANTIAGO [facility] Payers Date Payer Category Payer Self-pay 2021 Private Health Insurance [employer] [id number] 2019 Unknown [id number]. [id number] 2018 Medicare [id number] [id number]. [id number] 1959 Medicare [id number] 1959 Unknown [id number] 1954 Unknown [id number] 2.840.1.246765.3.579.2. 593 1954 Unknown [id number] 2.16.840.1.819653.3.579.2. 593 1954 Unknown [id number] 2.16.840.1.592246.3.579.2. 593 1954 Unknown [id number] 2.16.840.1.632500.3.579.2. 593 1954 Unknown [id number] 2.16.840.1.125393.3.579.2. 593 1954 Unknown [id number] 2.16.840.1.384901.3.579.2. 593 1954 Unknown [id number] 2.16.840.1.847906.3.579.2. 593 1954 Unknown [id number] 2.16.840.1.777967.3.579.2. 593 1954 Unknown [id number] 2.16.840.1.362713.3.579.2. 593 1954 Unknown [id number] 2.16.840.1.418463.3.579.2. 593 1954 Unknown [id number] 2.16.840.1.391416.3.579.2. 593 1954 Unknown [id number] 2.16.840.1.720044.3.579.2. 593 1954 Unknown [id number] 2.840.1.861113.3.579.2. 593 1954 Unknown [id number] 2.16.840.1.921810.3.579.2. 593 1954 Unknown [id number] 2.16.840.1.458009.3.579.2. 593 1954 Unknown [id number] 2.16.840.1.315158.3.579.2. 727 1954 Unknown [id number] 2.16840.1.627845.3.579.2. 727 1954 Unknown [id number] 2.16.840.1.129586.3.579.2. 1286 1954 Unknown [id number] 2.16.840.1.837652.3.579.2. 1286 1954 Unknown [id number] 2.16.840.1.675006.3.579.2. 1286 1954 Unknown [id number] 2.16840.1.125976.3.579.2. 128 1954 Unknown [id number] 2.16.840.1.599056.3.579.2. 1285 1954 Unknown [id number] 2.16.840.1.438160.3.579.2. 1285 1954 Unknown [id number] 2.16.840.1.839188.3.579.2. 1285 1954 Unknown [id number] 2.16.840.1.308662.3.579.2. 1285 1954 Unknown [id number] 2.16.840.1.218095.3.579.2. 1285 1954 Unknown [id number] 2.16.840.1.283697.3.579.2. 1285 1954 Unknown [id number] 2.16840.1.918583.3.579.2. 1258 1954 Unknown [id number] 2.16.840.1.972948.3.579.2. 1258 1954 Unknown [id number] 2.840.1.670204.3.579.2. 1258 1954 Unknown [id number] 2.16.840.1.416717.3.579.2. 1258 1954 Unknown [id number] 2.840.1.211997.3.579.2. 1258 1954 Unknown [id number] 2.16.840.1.345326.3.579.2. 1258 1954 Unknown [id number] 2.16.840.1.853514.3.579.2. 1258 1954 Unknown [id number] 2.16.840.1.076724.3.579.2. 1258 1954 Unknown [id number] 2.16840.1.703246.3.579.2. 1258 1954 Unknown [id number] 2.16.840.1.436631.3.579.2. 1258 1954 Unknown [id number] 2.16.840.1.362296.3.579.2. 1258 1954 Unknown [id number] 2.16.840.1.440634.3.579.2. 1258 1954 Unknown [id number] 2.16.840.1.477132.3.579.2. 1258 1954 Unknown [id number] 2.16.840.1.677754.3.579.2. 1258 1954 Unknown [id number] 2.16.840.1.900303.3.579.2. 1258 1954 Unknown [id number] 2.16.840.1.754186.3.579.2. 1258 1954 Unknown [id number] 2.16.840.1.113683.3.579.2. 1258 1954 Unknown [id number] 2.16.840.1.305357.3.579.2. 1258 1954 Unknown [id number] 2.16.840.1.917339.3.579.2. 1258 1954 Unknown [id number] 2.16.840.1.086484.3.579.2. 1258 1954 Unknown [id number] 2.16.840.1.319144.3.579.2. 1258 1954 Unknown [id number] 2.16.840.1.431763.3.579.2. 1258 1954 Unknown [id number] 2.16.840.1.951342.3.579.2. 1258 1954 Unknown [id number] 2.16.840.1.062677.3.579.2. 1258 1954 Unknown [id number] 2.16.840.1.591855.3.579.2. 1259 1954 Unknown [id number] 2.16.840.1.133221.3.579.2. 1259 1954 Unknown [id number] 2.16.840.1.807705.3.579.2. 1259 1954 Unknown [id number] 2.16.840.1.648476.3.579.2. 1259 1954 Unknown [id number] 2.16.840.1.776654.3.579.2. 1259 Unknown [id number] 2.16.840.1.095984.3.579.2. 531 Social History Date Type Detail Facility Start: 05-05-2021 End: 02-17-2024 Ex-smoker (finding) [facility] Start: 04-15-2023 End: 05-10-2023 Male [facility] Start: 1955 Sex Assigned At Male [facility] Tobacco smoking stat [facility] Tobacco smoking consumption unknown [facility] Start: 02-02-2023 Gender identity Identifies as male gender (finding) [facility] Start: 02-02-2023 Sexual orientation Heterosexual (finding) [facility] Start: 06-28-1967 End: 09-27-1975 History of tobacco use Current smoker [facility] Work Phone: Start: 06-28-1967 End: 09-27-1975 History of tobacco use Cigarette Smoker [facility] Work Phone: Start: 04-15-2023 End: 05-10-[address] [facility] Adult Depression Screening Assessment 1 [facility] Start: 01-11-2023 End: 02-17-2024 Tobacco use and exposure Smokeless tobacco non-user [facility] Start: 07-12-2023 End: 06-14-2024 Alcohol intake Current drinker of alcohol (finding) [facility] Within the last year , have you been afraid of your partner or ex-partner? No [facility] Do you belong to any clubs or organizations such as religious groups, unions, fraternal or athletic groups, or [...] to buy more. Never true [facility] Start: 05-28-2023 Tobacco Comment 1976 quit smoking [facility] Start: 04-04-2024 Alcohol Comment rare [facility] Start: 02-17-[address] [facility] Start: 02-17-2024 Alcohol Comment Social drinker with occasional drink at home. [facility] Medical Equipment Procedure Code Equipment Code Equipment Origin al Text Equipment Identifier Dates Shell Actb 56mm Hip 4 Hl Clr Cd [place] G7 F Hmsphr - Sna - [id number] Start: 07-07-2023 Liner Actb 36mm F Vivacit-E Lum G7 Hip Strl Lf - [id number] Start: 07-07-2023 Stem Fem 129d 4 06/10 45.5mm Fitmore Protasul-64 Hip Rgh - [id number] Start: 07-07-2023 Maryann Biomet Femoral Head 36mm [id number] Start: 07-07-2023 Screw Bn 30mm 6. [address] Actb Seven Trlg Strl Rpl [id number] 29 - [id number] Start: 07-07-2023 Screw Bn 30mm 6. [address] Actb Seven Trlg Strl Rpl [id number] 29 - [id number] Start: 07-07-2023 Screw Bn 30mm 6. [address] Actb Seven Trlg Strl Rpl [id number] 29 - [id number] Start: 07-07-2023 Functional Status Date Assessment Result Facility 02-07-2024 Functional Status N/A [facility] 06-01-2022 Functional Status N/A [facility] 02-16-2022 N/A [facility] Clinical Notes 02-16-2022 to 06-14-2024 Javad Donato MD - 06/14/2024 9:30 AM Lisa Hernández NP - 06/12/2024 10:30 AM Sandy Blair DO - 05/16/2024 11:30 AM Sandy Blair, - 05/09/2024 10:30 AM EST Note Date & Type Note Facility 06-14-2024 History of Present illness Narrative Images from the original note were not included. HPI Med Refill Additional comments: Hydrocodone--[facility] -for back pain pt is going to do some PT but states if that does not help with his back he will want to address it in the future feet are cold Additional comments: Pt states he has had ongoing issues feeling like his feet/toes are really cold to touch, he feels like there is the sensation of socks being bunched up under his feet Last edited by France Farah LPN on 06/14/2024 9:48 AM. Subjective : Chief Complaint: Lawson Vela is an 69 y.o. male here for an annual wellness visit. I have reviewed and reconciled the history and medication list with the patient today. Current Outpatient Medications Medication Sig Dispense Refill amoxicillin (Amoxil) 500 [...] mg by mouth in the morning. HYDROcodone-acetaminophen (Sutton) 5-325 MG tablet Take 1 tablet by [...] the same time. No current facility-administered medications for this visit. Review of Systems Neurological: Positive for weakness and numbness. List of current healthcare providers: Patient Care Team: Javad Donato MD as PCP - General (Internal Medicine) Javad Donato MD as PCP - ACO [employer] Medicare Annual Visit Over the past 2 weeks, how often have you been bothered by any of the following problems? Little interest or pleasure in doing things: (Patient-Rptd) (P) Not at all Feeling down, depressed, or hopeless: (Patient-Rptd) (P) Not at all Patient Health Questionnaire-2 Score: (Patient-Rptd) (P) 0 Denney Fall Risk History of Falling, Immediate or Within 3 Months: (Patient-Rptd) (P) No Secondary Diagnosis: (Patient-Rptd) (P) No Ambulatory Aid: (Patient-Rptd) (P) Crutches/cane/walker Intravenous Therapy/Heparin Lock: (Patient-Rptd) (P) No Gait/Transferring: (Patient-Rptd) (P) Normal/bedrest/immobile Mental Status: (Patient-Rptd) (P) Oriented to own ability Denney Fall Risk Score: (Patient-Rptd) (P) 15 Health Risk Assessment Form Do you need help eating, bathing, using the toilet, dressing, or getting around your home?: (Patient-Rptd) (P) No Can you prepare your own meals?: (Patient-Rptd) (P) Yes Can you do your own housework without help?: (Patient-Rptd) (P) Yes Can you shop for groceries or clothes without help?: (Patient-Rptd) (P) Yes Do you exercise for about 20 minutes 3 or more days a week?: (Patient-Rptd) (P) Yes How confident are you that you can control and manage most of your health problems?: (Patient-Rptd) (P) Very confident Can you mange your money, credit cards and accounts, pay bills and taxes?: (Patient-Rptd) (P) Yes Cognitive Screening Three Word Registration: Apple, Watch, Jaci Clock Drawing: Normal Clock - 2 Three Word Recall: All 3 words correct - 3 Total Score (0-5 Points): 5 Pain Assessment Pain Score: (Patient-Rptd) (P) 3 Advance Care Planning Do you have a living will?: (Patient-Rptd) (P) Yes Do you have a medical power of satellite technician?: (Patient-Rptd) (P) No Objective : BP 126/70 Pulse 98 Ht 6' 1 Wt 285 lb SpO2 97% BMI 37.60 kg/m No results found. Physical Exam Constitutional: General: He is not [...] edema. Neurological: Mental Status: He is alert. Gait: Gait abnormal. Psychiatric: Mood and Affect: Mood normal. Thought Content: Thought content normal. Judgment: Judgment normal. Assessment/Plan : The following health maintenance schedule was reviewed with the patient and provided in printed form in the after visit summary: Health Maintenance Topic Date Due Medicare Annual Wellness (AWV) 05/17/2024 Colorectal Cancer Screening 07/12/2027 Influenza Vaccine Completed Pneumococcal Vaccine: 65+ Years Completed Advance Care Planning Patient agreed to discuss advance care planning at today's wellness visit. We discussed that an advance directive is a legal document that only goes into effect if the patient is incapacitated and unable to speak for himself or herself. This would help healthcare providers to ensure that the patient gets the care that he or she wishes to receive. The goal is to provide a patient with the best possible quality of life. Encouraged patient to obtain a living will and durable power of satellite technician for healthcare. We discussed telling keith people about their advance directives such as close family members, and requested a copy to scan into the patient's EHR. An advance directive packet was offered to the patient. Assessment/Plan Diagnoses and all orders for this visit: Routine general medical examination at health care facility ACP (advance care planning) Benign essential hypertension ([facility]/HCC) - Lipid panel; Future - Comprehensive metabolic panel; Future - CBC; Future - Hemoglobin A1c; Future IGT (impaired glucose tolerance) - Lipid panel; Future - Comprehensive metabolic panel; Future - CBC; Future - Hemoglobin A1c; Future Atherosclerosis of aorta (CMS/[facility]) - Lipid panel; Future - Comprehensive metabolic panel; Future - CBC; Future - Hemoglobin A1c; Future Class 2 severe obesity with serious comorbidity and body mass index (BMI) of 37.0 to 37.9 in adult, unspecified obesity type (CMS/HCC) - Lipid panel; Future - Comprehensive metabolic panel; Future - CBC; Future - Hemoglobin A1c; Future Screening for prostate cancer - PSA; Future Flu vaccine need - Influenza, high-dose seasonal, quadrivalent, PF (XTM602) (Fluzone High Dose Quad North 0.7mL dose) Herniated lumbar disc without myelopathy - HYDROcodone-acetaminophen (Sutton) 5-325 MG tablet; Take 1 tablet by mouth every 6 (six) hours if needed for severe pain Claudication (CMS/HCC) - Vascular US lower extremity arterial duplex bilateral; Future Orders Placed This Encounter Procedures Influenza, high-dose seasonal, quadrivalent, PF ([id number]) (Fluzone High Dose Quad North 0.7mL dose) PSA Standing Status: Future Number of Occurrences: 1 Standing Expiration Date: 06/14/2025 Order Specific Question: Print requisition? Answer: No Lipid panel Standing Status: Future Number of Occurrences: 1 Standing Expiration Date: 06/14/2025 Order Specific Question: Print requisition? Answer: No Comprehensive metabolic panel Standing Status: Future Number of Occurrences: 1 Standing Expiration Date: 06/14/2025 Order Specific Question: Print requisition? Answer: No CBC Standing Status: Future Number of Occurrences: 1 Standing Expiration Date: 06/14/2025 Order Specific Question: Print requisition? Answer: No Hemoglobin A1c Standing Status: Future Number of Occurrences: 1 Standing Expiration Date: 06/14/2025 Order Specific Question: Print requisition? Answer: No Electronically signed by Javad Donato MD on June 14, 2024 documented in this encounter [facility] 06-12-2024 History of Present illness Narrative Images [...] Unremarkable left total hip arthroplasty. Jose Hernández ACCOUNTING SYSTEMS ANALYST-OPERATIONS LEAD XR hip left 2 or 3 views [...] Unremarkable left total hip arthroplasty. Jose Hernández ACCOUNTING SYSTEMS ANALYST-OPERATIONS LEAD Procedures Orders Placed This Encounter Procedures XR [...] requiring urgent evaluation. documented in this encounter [facility] 05-16-2024 History of Present illness Narrative Images [...] mg by mouth in the morning. HYDROcodone-acetaminophen (Sutton) 5-325 MG tablet Take 1 tablet by [...] wrist GERD (gastroesophageal reflux disease) HTN (hypertension) ([facility]) Lumbosacral disc disease Osteoarthritis ALLERGIES: Allergies [...] if he desires a referral to another regional telecommunications specialist we would be happy to make referral, he states he would like to continue his care here. Boni Blair D.O. documented in this encounter [facility] 05-09-2024 History of Present illness Narrative Images [...] mg by mouth in the morning. HYDROcodone-acetaminophen (Sutton) 5-325 MG tablet Take 1 tablet by [...] wrist GERD (gastroesophageal reflux disease) HTN (hypertension) ([facility]) Lumbosacral disc disease Osteoarthritis ALLERGIES: Allergies [...] Blair/demi Blair D.O. documented in this encounter [facility] 05-08-2024 Telephone encounter Note Post op pain rx refill. PDMP reviewed [facility] 05-08-2024 Miscellaneous Notes Post op pain rx refill. PDMP reviewed documented in this encounter [facility] 05-04-2024 Telephone encounter Note He already discharged and PT is meeting with him today. [facility] 05-04-2024 Miscellaneous Notes He already discharged and PT is meeting with him today. Maxine elen that patient is being discharged today from his LT Hip replacement and would like us to call patient to let him know what he needs to do. Patient's phone number is [phone]. documented in this encounter [facility] 05-04-2024 Telephone encounter Note Maxine left that patient is being discharged today from his LT Hip replacement and would like us to call patient to let him know what he needs to do. Patient's phone number is [phone]. [facility] 05-02-2024 Telephone encounter Note Post op pain rx. PDMP reviewed [facility] 05-02-2024 Miscellaneous Notes Post op pain rx. PDMP reviewed documented in this encounter [facility] 04-17-2024 History of Present illness Narrative Images from the original note were not included. HPI surgical clearance Additional comments: Pt sched 05/03/24 for left hip replacement with Dr Blair at [facility] PAT completed Last edited by France Farah LPN on 04/17/2024 1:48 PM. Subjective Patient ID: Lawson Vela is a 69 y.o. male who presents for surgical clearance (Pt sched 05/03/24 for left hip replacement with Dr Blair at [facility]/PAT completed). Pt has had left hip [...] mg by mouth in the morning. HYDROcodone-acetaminophen (Sutton) 5-325 MG tablet Take 1 tablet by [...] with food 4 tablet 3 [DISCONTINUED] HYDROcodone-acetaminophen (Sutton) 5-325 MG tablet No current facility-administered medications [...] wrist GERD (gastroesophageal reflux disease) HTN (hypertension) ([facility]) Lumbosacral disc disease Osteoarthritis Past Surgical [...] As Previously Scheduled. documented in this encounter [facility] 04-12-2024 Telephone encounter Note OARRS reviewed, Rx sent into patient's pharmacy. [facility] 04-12-2024 Miscellaneous Notes OARRS reviewed, Rx sent into patient's pharmacy. Patient comment: Getting prepared for future surgery. documented in this encounter [facility] 04-12-2024 Telephone encounter Note Patient comment: Getting prepared for future surgery. [facility] 04-06-2024 History of Present illness Narrative HISTORY [...] tx: cane, norco, ice, heat, topicals, XR [facility] 11/01/23, hot tub, PREHAB/HEP Currently seeing pain management, Dr Ludwig [facility] for LBP MEDICATION: Current Outpatient Medications [...] mg by mouth in the morning. HYDROcodone-acetaminophen (Sutton) 5-325 MG tablet irbesartan-hydroCHLOROthiazide (Avalide) 150-12.5 MG [...] wrist GERD (gastroesophageal reflux disease) HTN (hypertension) ([facility]) Lumbosacral disc disease Osteoarthritis ALLERGIES: Allergies [...] IMAGING: November 01, 2023 x-rays from the [facility] office AP pelvis and lateral left hip [...] Blair/demi Blair D.O. documented in this encounter [facility] 04-04-2024 Instructions Trista Pelaez RN - 04/04/2024 [...] in at the main lobby of the [facility]- registration desk is straight ahead as soon as you walk in. Tell them you are here for surgery. 2. If you have a Living Will/Durable Power of Hall Monitor for Health Care that is not on [...] after you have bathed. 5. NO nail colombian/acrylic on at least one finger. If you are having a hand, wrist or foot surgery then all nail colombian and artificial/acrylic nails must be removed from [...] please call the [facility] office at [phone], Mon.-Fri. 7 a.m.-3 p.m. Leave a voicemail [...] with your doctor. documented in this encounter [facility] 04-04-2024 Miscellaneous Notes Patient called and educated to watch his YOLANDA education on total hip replacement prior to his PAT appointment next week. Patient verbalized understanding. documented in this encounter [facility] 04-04-2024 Nurse Note Patient called and educated to watch his YOLANDA education on total hip replacement prior to his PAT appointment next week. Patient verbalized understanding. [facility] 03-15-2024 History of Present illness Narrative No need for Prehab appt, has walker and has recently went through NASH, spoke with pt in parking lot, reviewed precautions good understanding. documented in this encounter [facility] 02-17-2024 History of Present illness Narrative Subjective Patient ID: Lawson Vela is a 69 y.o. male who presents for URI. Lots of mucus, hoarseness , this started 3 weeks ago , pt does talk all day long , some congestion, no headaches , pt took covid test was negative Pt did take left over amox. and this has not helped him. Took it closer to the start of the illness. States gets plenty of rest. URI This is a recurrent problem. The current episode started 1 to 4 weeks ago. The problem has been gradually improving. There has been no fever. Associated symptoms include congestion, coughing and a sore throat. Pertinent negatives include no abdominal pain, chest pain, diarrhea, ear pain, headaches, nausea, plugged ear sensation, rash, sneezing, vomiting or wheezing. Current Outpatient Medications on File Prior to [...] 5 mg by mouth in the morning. irbesartan-hydroCHLOROthiazide (Avalide) 150-12.5 MG tablet Take 1 [...] facility-administered medications on file prior to visit. Allergies Allergen Reactions Carvedilol Other Reaction(s): dizziness Social History Tobacco Use Smoking status: Former Current packs/day: 0.00 Types: Cigarettes Quit date: 09/27/1975 Years since quittin.4 Smokeless tobacco: Never Tobacco comments: no way [...] HTN (hypertension) (CMS/HCC) Lumbosacral disc disease Osteoarthritis Past Surgical History: Procedure Laterality Date APPENDECTOMY 1967 CARPAL TUNNEL RELEASE Left 05/29/2020 HIP ARTHROPLASTY NERVE BLOCK Bilateral 07/07/2022 L2-L5 RADIOFREQUENCY ABLATION 03/02/2023 Rt Lateral Cutaneous Iliohypogastric Nerve TOTAL HIP ARTHROPLASTY Right 07/07/2023 Dr Blair VASECTOMY 2010 Visit Vitals BP 136/78 Pulse 82 Ht 6' 1 Wt 290 lb SpO2 96% BMI 38.26 kg/m Smoking Status Former BSA 2.61 m Review of Systems Constitutional: Negative for chills, fatigue and fever. HENT: Positive for congestion, sore throat, trouble swallowing (Painful) and voice change. Negative for ear pain and sneezing. Respiratory: Positive for cough. Negative for shortness of breath and wheezing. Cardiovascular: Negative for chest pain, palpitations and leg swelling. Gastrointestinal: Negative for abdominal pain, constipation, diarrhea, nausea and vomiting. Skin: Negative for rash. Neurological: Negative for headaches. Objective Physical Exam Constitutional: General: He is not in acute distress. Appearance: He is obese. HENT: Head: Normocephalic and atraumatic. Right Ear: Tympanic membrane and ear canal normal. Left Ear: Tympanic membrane and ear canal normal. Nose: Right Turbinates: Swollen. Left Turbinates: Swollen. Mouth/Throat: Mouth: Mucous membranes are moist. Pharynx: Posterior oropharyngeal erythema present. Comments: Mild erythema of pharynx, voice is hoarse. Eyes: General: No scleral icterus. Cardiovascular: Rate and Rhythm: Normal rate and regular rhythm. Heart sounds: No murmur heard. Pulmonary: Effort: Pulmonary effort is normal. No respiratory distress. Breath sounds: Normal breath sounds. No wheezing, rhonchi or rales. Musculoskeletal: General: No swelling. Lymphadenopathy: Cervical: No cervical adenopathy. Skin: General: Skin is warm and dry. Neurological: General: No focal deficit present. Mental Status: He is alert and oriented to person, place, and time. Psychiatric: Mood and Affect: Mood normal. Behavior: Behavior normal. Assessment/Plan Diagnoses and all orders for this visit: Acute pharyngitis, unspecified etiology - predniSONE (Deltasone) 10 MG tablet; Take 1 tablet (10 mg) by mouth 3 (three) times a day for 3 days, THEN 1 tablet (10 mg) 2 (two) times a day for 3 days, THEN 1 tablet (10 mg) Daily for 3 days. - azithromycin (Zithromax) 250 MG tablet; Take 2 tablets (500 mg) by mouth Daily for 1 day, THEN 1 tablet (250 mg) Daily for 4 days. Start the above medications as directed. Will cover with antibiotic due to duration of symptoms. Advised of potential side effects of the steroid. Patient is to take the steroid with food. Increase water intake, get plenty of rest. Can take Tylenol prn for any discomfort or fever. No other anti-inflammatories while on steroid. Wash hands often. Follow up in our office if no improvement in one week. Follow up for Appointment As Scheduled. documented in this encounter [facility] 02-07-2024 Hospital Discharge instructions Patient Education 02/07/2024 [...] urethra. Follow these instructions at home: Take gnqk-pdq-cifdnyx and prescription medicines only as told by [...] provider. Document Revised: 12/31/2021 Document Reviewed: 12/31/2021 [employer] Patient Education 2022 [employer]. Follow Up Care 08/30/2023 12:37:09 With:PAMELA BAER, Mac Stephenson, ROSAL Address: [facility] [address] , [place] [address]- When: Unknown [facility] 02-07-2024 Note Patient Education Urology Benign [...] Follow these instructions at home: ? Take ecqq-fug-ysmmadl and prescription medicines only as told by [...] develop side effec (more content not included)... [facility] 08-09-2023 History of Present illness Narrative [...] develop for requiring urgent evaluation. Jose Hernández APRN-OPERATIONS LEAD documented in this encounter [facility] 04-13-2023 Note HNO ID: [id number] Author: Laila Lewis PA-C Service: ? Author Type: Physician Concert Manager Type: [place] Notes Filed: 04/15/2023 1:53 PM [...] a week. Hydrocodone, Meloxicam Zanaflex, Lidocaine patches animal daycare provider Prior to ablation symptoms on left have [...] days 2 More (more content not included)... [facility] 04-13-2023 Instructions Laila Lewis PA-C - [...] which is considered uptake). Laila Lewis PA-C [phone] documented in this encounter [facility] 04-13-2023 History of Present illness Narrative [...] a week. Hydrocodone, Meloxicam Zanaflex, Lidocaine patches animal daycare provider Prior to ablation symptoms on left have [...] (IT BAND PATHOLOGY): Normal LEFT HIP EXAM: ACLEB EXAM: Abnormal TROCHANTERIC BURSA TENDERNESS: Normal GAENSLEN'S MANEUVER: Abnormal JESSICA'S TEST (IT BAND PATHOLOGY): Normal DATA REVIEW [facility] records independently reviewed Imaging and outside records independently reviewed Images independently reviewed with the patient MRI Lumbar: Narrative PERFORMED AT [facility] LOCATION:[facility] CLINICAL HISTORY: Low back pain extending into the right lower extremity. COMPARISON: 05/01/2022 TECHNIQUE: Multiplanar MR imaging of the lumbar spine was performed. FINDINGS: The spine is visualized from the N28-E7-X7 levels on the sagittal sequences, assuming a [...] narrowing. At the L5-S1 level, there is gzgj-po-yuvkytpg diffuse disc bulging and moderate hypertrophic facet changes, which results in moderate to marked neural foraminal narrowing. Procedure Note CONVERSION, GENERIC - 11/13/2022 PERFORMED AT [facility] LOCATION:[facility] CLINICAL HISTORY: Low back pain extending into the right lower extremity. COMPARISON: 05/01/2022 TECHNIQUE: Multiplanar MR imaging of the lumbar spine was performed. FINDINGS: The spine is visualized from the R73-J9-M2 levels on the sagittal sequences, assuming a [...] narrowing. At the L5-S1 level, there is mggp-ov-iyxzrzts diffuse disc bulging and moderate hypertrophic facet changes, which results in moderate to marked neural foraminal narrowing. 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 Report reported and signed by James Vizcaino on 10/19/2022 1406 CONVERSION, GENERIC - 11/14/2022 PERFORMED AT [facility] LOCATION:[place] [id number] EXAMINATION: XR HIPS JAIRO 3_4V WO [...] 8:55 AM PAGER: documented in this encounter [facility] 02-12-2023 Note HNO ID: [id number] Author: Laila Lewis PA-C Service: ? Author Type: Physician Concert Manager Type: [place] Notes Filed: 02/12/2023 12:58 PM Note Text: Per Triage: Lawson Vela is a 68 year old male that requests evaluation of lumbar spine. Per review, they have symptoms of LBP into left leg pain. Positive for numbness, difficulty walking and weakness. CMT: PT Hydrocodone animal daycare provider Studies (Reports unless indicated) MRI Lumbar: Narrative PERFORMED AT [facility] CLINICAL HISTORY: Low back pain extending into the right lower extremity. COMPARISON: 05/01/2022 TECHNIQUE: Multiplanar MR imaging of the lumbar spine was performed. FINDINGS: The spine is visualized from the O44-D4-V4 levels on the sagittal sequences, assuming a [...] narrowing. At the L5-S1 level, there is uzff-hh-lglyvfhs diffuse disc bulging and moderate hypertrophic facet changes, which results in moderate to marked neural foraminal narrowing. Procedure Note CONVERSION, GENERIC - 11/13/2022 PERFORMED AT [facility] LOCATION:[facility] CLINICAL HISTORY: Low back pain extending into the right lower extremity. COMPARISON: 05/01/2022 TECHNIQUE: Multiplanar MR imaging of the lumbar spine was performed. FINDINGS: The spine is visualized from the V28-J7-J0 levels on the sagittal sequences, assuming a [...] narrowing. At the L5-S1 level, there is dfxr-bi-brxijiln diffuse disc bulging and moderate hypertrophic facet changes, which results in moderate to marked neural foraminal narrowing. 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 Report reported and signed by James Vizcaino on 10/19/2022 1406 Disposition: Please schedule with Laila. [facility] 02-12-2023 History of Present illness Narrative Per Triage: Lawson Vela is a 68 year old male that requests evaluation of lumbar spine. Per review, they have symptoms of LBP into left leg pain. Positive for numbness, difficulty walking and weakness. 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 COMPARISON: 05/01/2022 TECHNIQUE: Multiplanar MR imaging of the lumbar spine was performed. FINDINGS: The spine is visualized from the E91-R9-O8 levels on the sagittal sequences, assuming a [...] narrowing. At the L5-S1 level, there is pysa-lz-uoxfodau diffuse disc bulging and moderate hypertrophic facet changes, which results in moderate to marked neural foraminal narrowing. Procedure Note CONVERSION, GENERIC - 11/13/2022 PERFORMED AT [facility] LOCATION:[facility] CLINICAL HISTORY: Low back pain extending into the right lower extremity. COMPARISON: 05/01/2022 TECHNIQUE: Multiplanar MR imaging of the lumbar spine was performed. FINDINGS: The spine is visualized from the N24-C8-B8 levels on the sagittal sequences, assuming a [...] narrowing. At the L5-S1 level, there is mcig-da-emjoetty diffuse disc bulging and moderate hypertrophic facet changes, which results in moderate to marked neural foraminal narrowing. 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 Report reported and signed by James Vizcaino on 10/19/2022 1406 Disposition: Please schedule with Laila. Patient name: Lawson Vela Are you being referred by a Center for Spine Health Provider or Pain Management Provider at [facility]? No If answer is YES please [...] the facility where the MRI/CT/myelogram was completed: [facility] Address: [address] [facility] [place] [address] [facility] Address: [address] [id number] MRI/CT/myelogram viewable in Epic: No If not, please provide [phone] to fax in imaging reports for review. [...] was completed PT Injections [facility] Address: [address] [place] [address] Have you tried any other kinds of [...] where the surgery was completed: Additional Comments [phone] (Home Phone) documented in this encounter [facility] 01-28-2023 Note HNO ID: [id number] Author: Mookie Lee Service: ? Author Type: ? Type: [place] Notes Filed: 02/12/2023 12:58 PM Note Text: Patient name: Lawson Vela Are you being referred by a [facility] for Spine Health Provider or Pain Management Provider at [facility]? No If answer is YES please [...] the facility where the MRI/CT/myelogram was completed: [facility] Address: [address] [place] [id number] [facility] Address: [address] [place] [address] MRI/CT/myelogram viewable in Epic: No If not, please provide [phone] to fax in imaging reports for review. [...] was completed PT Injections [facility] Address: [address] [facility], [place] [address] Have you tried any other kinds of [...] where the surgery was completed: Additional Comments [phone] (Home Phone) [facility] 12-17-2022 Evaluation note Encounter Date Diagnosis [...] prednisone taper. Advised not to take any kykr-xbh-asmtico ibuprofen while taking prednisone. OARRS reviewed . [...] spine, education on diet, decrease sugar intake. [employer] Other 05-16-2023 NoteCONSULTATION CONSULTATION DATE: 11/10/2022 TO: [...] our patients to inform us about any zkml-fob-atylklm medications or herbal remedies/nutritional supplements/alternative remedies. 2. [...] options with their primary care provider.[facility] [id number] Note CONSULTATION CONSULTATION DATE: 10/08/2022 TO: Javad [...] our patients to inform us about any kepx-lyp-jhuxpkm medications or herbal remedies/nutritional supplements/alternative remedies. 2. [...] options with their primary care provider.[facility] [id number] Note CONSULTATION CONSULTATION DATE: 09/10/2022 HISTORY: This [...] a tightness in that region. Medications include Sutton 5/325 daily, tizanidine 4 mg q.h.s., Mobic [...] three months' time unless otherwise indicated.[facility] [id number] NoteCONSULTATION PROCEDURE DATE: 09/10/2022 PREOPERATIVE DIAGNOSIS: Bilateral [...] and patient tolerated the procedure well.[facility] [id number] Note CONSULTATION CONSULTATION DATE: 07/23/2022 HISTORY OF [...] current medications include Mobic 50 mg daily, Sutton 5/325 per his PCP daily p.r.n. and [...] in the office after the procedure.[facility] [id number] NoteCONSULTATION CONSULTATION DATE: 06/25/2022 HISTORY OF PRESENT [...] with a vitamin regimen and he takes Sutton 5/325 daily p.r.n., and Mobic 15 mg [...] his procedure here in the office.[facility] [id number] Hospital Discharge instructions Patient Education 06/01/2022 08:22:09 [...] urethra. Follow these instructions at home: Take lnqz-uqz-nwukuzh and prescription medicines only as told by [...] 06/14/2006 Document Revised: 05/09/2019 Document Reviewed: 07/19/2017 [employer] Patient Education [employer]. Follow Up Care 02/16/2022 11:28:21 With:PAMELA BAER, Mac Stephenson, URL Address: [facility] [address] , [place] [address]- When: Unknown [facility] 11-22-2022 NoteCONSULTATION CONSULTATION DATE: 05/19/2022 CHIEF [...] The patient currently takes Mobic 15 mg, Sutton 5/325 on a p.r.n. basis as prescribed [...] epidural had been performed. CC: Javad Donato M.D.[facility]11-01-2022 NoteCONSULTATION CONSULTATION DATE: 04/28/2022 CHIEF COMPLAINT: Left [...] patient takes two Aleve. He also takes Sutton 5/[address] Donato has prescribed for [...] would like to proceed. CC: Javad Donato M.D.[facility]08-22-2022 Hospital Discharge instructions Patient Education [...] urethra. Follow these instructions at home: Take jafd-pai-xatyplk and prescription medicines only as told by [...] 06/14/2006 Document Revised: 05/09/2019 Document Reviewed: 07/19/2017 [employer] Patient Education 2020 [employer]. 02/16/2022 11:24:04 Calorie Counting for Weight Loss [...] 06/14/2006 Document Revised: 03/03/2019 Document Reviewed: 05/14/2017 [employer] Patient Education [employer]. Follow Up Care 08/18/2021 12:09:57 With:Mac SANTIAGO MD, URL Address: [address] [place], [place] [id number]- Business (1) When:Within 6 Month(s) [facility] evaluation + Plan note Future Appointments Appointment Date:06/01/2022 10:45:00 AM Scheduled Provider:Mac SANTIAGO MD Location:[facility] Appointment Type:URO Office Visit [facility] evaluation + Plan note Future Appointments Appointment Date:11/30/2022 08:45:00 AM Scheduled Provider:Mac SANTIAGO MD Location:[facility] Appointment Type:URO Office Visit [facility] evaluation + Plan note Future Appointments Appointment Date:02/05/2025 10:45:00 AM Scheduled Provider:Mac SANTIAGO MD Location:[facility] [place] Appointment Type:URO Office Visit [facility] [place] evaluation noteNo assessment information available [facility] Work Phone: Evaluation noteNort [employer] Other evaluation note* Diagnosis Spinal stenosis, lumbar region with neurogenic claudication- Primary [facility] Diagnosis Spinal stenosis, lumbar region with neurogenic claudication- Primary Bilateral hip joint arthritis [facility] Diagnosis Right hip pain- Primary Pain in joint, pelvic region and thigh Status post total hip replacement, right documented in this [facility]* Diagnosis Right hip pain- [...] [facility] Diagnosis Preop examination- Primary Unspecified pre-operative examination Hypertension, unspecified type Preop examination Unspecified pre-operative examination Hypertension, unspecified type [facility] Diagnosis Left hip pain Pain in joint, pelvic region and thigh Arthritis of left hip [facility] Diagnosis Herniated lumbar disc without myelopathy- Primary [facility]* Diagnosis Status post right hip replacement [facility] Diagnosis Primary osteoarthritis of left hip- Primary Benign essential hypertension (CMS/HCC) Essential hypertension, benign Class 2 severe obesity with serious comorbidity and body mass index (BMI) of 37.0 to 37.9 in adult, unspecified obesity type (CMS/HCC) [facility] Diagnosis Post-operative pain- Primary Other acute postoperative pain documented in this encounter [facility]* Diagnosis Post-operative pain Other acute postoperative pain documented in this encounter [facility]* Diagnosis S/P total left hip arthroplasty- Primary documented in this encounter [facility]* Diagnosis S/P total left hip arthroplasty- Primary documented in this encounter [facility]* Diagnosis S/P total left hip arthroplasty- Primary Left hip pain Pain in joint, pelvic region and thigh documented in this encounter [facility]* Diagnosis Acute pharyngitis, unspecified etiology- Primary documented in this encounter [facility]* Diagnosis Routine general medical examination at health care facility- Primary Routine general medical examination at a health care facility ACP (advance care planning) Other specified counseling Benign essential hypertension (CMS/HCC) Essential hypertension, benign IGT (impaired glucose tolerance) Impaired glucose tolerance test Atherosclerosis of aorta (CMS/HCC) Atherosclerosis of aorta Class 2 severe obesity with serious comorbidity and body mass index (BMI) of 37.0 to 37.9 in adult, unspecified obesity type (CMS/HCC) Screening for prostate cancer Special screening for malignant neoplasm of prostate Flu vaccine need Herniated lumbar disc without myelopathy Claudication (CMS/HCC) Unspecified peripheral vascular disease [facility] N[facility]ative - Reported* Type Description Date Medical History appendicitis Medical History Arthritis Medical History Hypertension Medical History obesity Medical History pneumonia Medical History prostate cancer Surgical History appendectomy Surgical History carpal tunnel release 2017 Hospitalization History see surg Hx [facility] [employer] Other History general Narrative - [facility] [employer] Other Hospital course Narrative No data available for this section [facility] progress note No data available for this section [facility] reason for referral (narrative)* Diagnostic Procedure Only (Routine) - Pending Review Specialty Diagnoses / Procedures Referred By Rayray barkley Referred To Contact XR IMAGING Diagnoses Bilateral hip joint arthritis Procedures XR HIP BILATERAL 5V PEL/AP/LAT EACH HIP RADEX HIPS BILATERAL WITH PELVIS MINIMUM 5 VIEWS Laila Lewis PA-C [address] [place] [address] Xr Imaging [facility] Referral ID Status Reason Start Date Expiration Date Visits Requested Visits Authorized [id number] Pending Review Auto-Generat ed Referral 3 05/12/2024 1 1 * Consult, Test, Treat (Routine) - Pending Review Specialty Diagnoses / Procedures Referred By Rayray barkley Referred To Contact Orthopedics Diagnoses Bilateral hip joint arthritis Procedures CONSULT TO ORTHOPAEDICS OFFICE/OUTPATIENT [facility] 60-74 MINUTES Laila Lewis PA-C [address] [place] [place] [id number] Referral ID Status Reason Start Date Expiration Date Visits Requested Visits Authorized [id number] Pending Review PCP Requested Referral 3 04/12/2024 1 1 [facility] for visit Narrativeself referral- low back pain L4-L5 [employer] Other Summary Purpose Family History No Family [...] Referral Specialty Diagnoses / Procedures Referred By Rayray barkley Referred To Contact Diagnoses Preop examination Hypertension, unspecified type Procedures ECG 12 lead Charissa Blair DO [address] [facility] [address] [place] [address] Referral ID Status Reason Start Date Expiration Date V isits Requested Visits Authorized [id number] Pending Review 03/06/2024 03/06/2025 1 1 Additional Source Comments Care Team (unrecognized sect ion and content) Team Status: Active Member Role Status Dates Javad Donato II MD Primary Care Provider Active Team Status: Inactive Member Role Status Dates Javad Donato II MD Primary Care Provider Active Erica Xiong STATION INSTALLATION SUPERVISOR-C Attending Provider Active Relief Operator Relationship Specialty Start Date End Date Javad Donato MD [address] [place] [address] [place] [address] PCP - [facility] Reach 11/19/22 Javad Donato MD [address] [place] [address] [place] [address] PCP - General Internal Medicine 01/05/23 Relief Operator Relationship Specialty Start Date End Date Javad Donato MD [address] [place] [address] PCP - ACO Reach 11/19/22 Javad Donato MD [address] [place] [address] PCP - General Internal Medicine 01/05/23 Relief Operator Relationship Specialty Start Date End Date Javad Donato MD [address] [place] [address] PCP - ACO Reach 11/19/22 Javad Donato MD [address] [place] [address] PCP - General Internal Medicine 01/05/23 Relief Operator Relationship Specialty Start Date End Date Javad Doanto MD [address] [place] [address] PCP - ACO Reach 11/19/22 Javad Donato MD [address] [place] [address] PCP - General Internal Medicine 01/05/23 Relief Operator Relationship Specialty Start Date End Date Javad Donato MD [address] [place] [address] PCP - ACO Reach 11/19/22 Javad Donato MD [address] [place] [address] PCP - General Internal Medicine 01/05/23 Relief Operator Relationship Specialty Start Date End Date Javad Donato MD [address] [place] [address] PCP - ACO Reach 11/19/22 Javad Donato MD [address] [place] [address] PCP - General Internal Medicine 01/05/23 Relief Operator Relationship Specialty Start Date End Date Javad Donato MD [address] [place] [address] PCP - ACO Reach 11/19/22 Javad Donato MD [address] [place] [address] PCP - General Internal Medicine 01/05/23 Relief Operator Relationship Specialty Start Date End Date Javad Donato MD [address] [place] [address] [phone] PCP - General Internal Medicine 06/15/17 Relief Operator Relationship Specialty Start Date End Date Javad Donato MD [address] [place] [address] PCP - ACO Reach 11/19/22 Javad Donato MD [address] [place] [address] PCP - General Internal Medicine 01/05/23 Relief Operator Relationship Specialty Start Date End Date Javad Donato MD [address] [place] [address] PCP - ACO Reach 11/19/22 Javad Donato MD [address] [place] [address] PCP - General Internal Medicine 01/05/23 Relief Operator Relationship Specialty Start Date End Date Javad Donato MD [address] [place] [address] PCP - ACO Reach 11/19/22 Javad Donato MD [address] [place] [address] PCP - General Internal Medicine 01/05/23 Relief Operator Relationship Specialty Start Date End Date Javad Donato MD [address] [place] [address] PCP - ACO Reach 11/19/22 Javad Donato MD [address] [place] [address] PCP - General Internal Medicine 01/05/23 Relief Operator Relationship Specialty Start Date End Date Javad Donato MD [address] [place] [address] PCP - ACO Reach 11/19/22 Javad Donato MD [address] [place] [address] PCP - General Internal Medicine 01/05/23 Relief Operator Relationship Specialty Start Date End Date Javad Donato MD [address] [place] [address] PCP - ACO Reach 11/19/22 Javad Donato MD [address] [place] [address] PCP - General Internal Medicine 01/05/23 Relief Operator Relationship Specialty Start Date End Date Javad Donato MD [address] [place] [address] PCP - ACO Reach 11/19/22 Javad Donato MD [address] [place] [address] PCP - General Internal Medicine 01/05/23Wednesday, GLENDA MartinezN [address] [place] [address] Licensed Practical Nurse Family Medicine 05/08/24 Relief Operator Relationship Specialty Start Date End Date Javad Donato MD [address] [place] [address] PCP - ACO Reach 11/19/22 Javad Donato MD [address] [place] [address] PCP - General Internal Medicine 01/05/23Wednesday, Michelle, CYLINDER DIE MACHINE OPERATOR [address] [place] [address] Licensed Practical Nurse Family Medicine 05/08/24 Relief Operator Relationship Specialty Start Date End Date Javad Donato MD [address] [place] [address] PCP - ACO Reach 11/19/22 Javad Donato MD [address] [place] [address] PCP - General Internal Medicine 01/05/23WednesdayMichelle LPN [address] [place] [address] Licensed Practical Nurse Family Medicine 05/08/24 05/16/24 Relief Operator Relationship Specialty Start Date End Date Javad Donato MD [address] [place] [address] PCP - ACO Reach 11/19/22 Javad Donato MD [address] [place] [address] PCP - General Internal Medicine 01/05/23WednesdayMichelle LPN [address] [place] [address] Licensed Practical Nurse Family Medicine 05/08/24 05/16/24 Relief Operator Relationship Specialty Start Date End Date Javad Donato MD [address] [place] [address] PCP - ACO Reach 11/19/22 Javad Donato MD [address] [place] [address] PCP - General Internal Medicine 01/05/23Wednesday, ELLIE Martinez [address] [place] [address] Licensed Practical Nurse Family Medicine 05/08/24 05/16/24 Relief Operator Relationship Specialty Start Date End Date Javad Donato MD [address] [place] [address] PCP - ACO Reach 11/19/22 Javad Donato MD [address] [place] [address] PCP - General Internal Medicine 01/05/23 Relief Operator Relationship Specialty Start Date End Date Javad Donato MD [address] [place] [address] PCP - ACO Reach 11/19/22 Javad Donato MD [address] [place] [address] PCP - General Internal Medicine 01/05/23 Relief Operator Relationship Specialty Start Date End Date Javad Donato MD [address] [place] [address] PCP - ACO Reach 11/19/22 Javad Donato MD [address] [place] [address] PCP - General Internal Medicine 01/05/23 Relief Operator Relationship Specialty Start Date End Date Javad Donato MD [address] [place] [address] PCP - ACO Reach 11/19/22 Javad Donato MD [address] [place] [address] PCP - General Internal Medicine 01/05/23 (unrecognized sect ion and content) No Status Records FoundNo Status Records FoundNo Status Records FoundNo Status Records FoundNo Status Records FoundNo Status Records FoundNo Status Records FoundNo Status Records Found INFORMATION SOURCE (unrecogn ized section and content) DATE CREATED AUTHOR 05/02/2022 [facility] Me dical Specialist DATE CREATED AUTHOR AUTHOR'S ORGANIZ ATION 12/04/2022 [facility] DATE CREATED AUTHOR AUTHOR'S ORGANIZ ATION 01/13/2023 [facility] DATE CREATED AUTHOR AUTHOR'S ORGANIZ ATION 02/13/2023 [facility] DATE CREATED AUTHOR AUTHOR'S ORGANIZ ATION 04/17/2023 [facility] DATE CREATED AUTHOR AUTHOR'S ORGANIZ ATION 02/09/2024 [facility] DATE CREATED AUTHOR AUTHOR'S ORGANIZ ATION 05/05/2024 [facility] DATE CREATED AUTHOR AUTHOR'S ORGANIZ ATION 06/14/2024 [facility] dical Specialists EPIC Goals (unrecognized section [...] or prosecute any alcohol or drug abuse patient.[facility] the event this information is protected by the Federal Confidentiality of Alcohol and Drug Abuse Patient Records regulations: The Federal rules restrict any use of the information to criminally investigate or prosecute any alcohol or drug abuse patient.[facility] Reason for Visit (unrecogniz ed section and content) Reason Comments New Patient Specialty Diagnoses / Procedures Referred By Contac t Referred To Contact Physical Therapy Diagnoses Presence of artificial hip joint, right Procedures CT OFFICE/OUTPATIENT NEW HIGH MDM 60 MINUTES Charissa Blair, DO [address] [place] [address] [address] [place] [address] Referral ID Status Reason Start Date Expiration Date Visits Requested Visits Authorized [id number] Authorized Specialty Services Required 07/08/2023 01/04/2024 30 30 Reason Comments Follow-up Reason Comments Pain Reason Onset Date Comments Med Refill 04/12/2024 Reason Comments surgical clearance Pt sched 05/03/24 for left hip replacement with Dr Blair at [facility] completed Reason Onset Date Comments Discharge 05/04/2024 Reason Comments Pain Reason Comments URI Reason Comments Medicare Annual Wellness Visit Subsequen t Med Refill Hydrocodone--[facility] [place]-for back pain pt is going to do some PT but states if that does not help with his back he will want to address it in the future feet are cold Pt states he has had ongoing issues feeling like his feet/toes are really cold to touch, he feels like there is the sensation of socks being bunched up under his feet FOR RECORDS PERTAINING TO PATIENTS WHO ARE [...] BE BASED ON THE PRIMARY CLINICAL RECORDS. [facility]. provides no warranty or guarantee of the accuracy or completeness of information in this document.
== END 2024-06-16 11:43 | disposition home or self-care (01) ==
LOC: RAD 11:51
PROVIDERS: PCP Internal Medicine; Visit Provider Nurse Practitioner
DX: M47.816 Spondylosis without myelopathy or radiculopathy, lumbar region (principal); M51.369 Other intervertebral disc degeneration, lumbar region without mention of lumbar back pain or lower extremity pain
CPT/HCPCS: 72114

== ENCOUNTER 2024-07-04 06:41 | Day surgery (SDC) | payer MEDICARE, OTHER, SELFPAY ==
[2024-07-04 06:50] VITALS: BP 120/72; PULSE 101; TEMP 36.1; O2SAT 96
[2024-07-04 06:57] LABS: Glucometer 136 mg/dL (74-106)
[2024-07-04 07:39] VITALS: BP 140/84; BP 142/86; PULSE 93; PULSE 94; O2SAT 95; O2SAT 96
[2024-07-04] MEDS: BUPIVACAINE HCL 0.25% PF 25 MG/10 ML VIAL 2 ML INJ (07:45)
[2024-07-04] MEDS: 0.9 % SODIUM CHLORIDE 10 ML SYRINGE - SALINE FLUSH 2 ML INJ (07:45)
[2024-07-04] MEDS: LIDOCAINE HCL 2% 400 MG/20 ML MDV INJ (07:46)
[2024-07-04] MEDS: METHYLPREDNISOLONE ACETATE 80 MG/ML VIAL INJ (07:46)
[2024-07-04] MEDS: IOHEXOL 240 MG/ML - 10 ML VIAL 12 MG INJ (07:46)
--- NOTE | 2024-07-04 08:52 | P.ON_ITS ---
Date of procedure: 07/04/24 Pre-op diagnosis: Lumbar Stenosis with Neurogenic claudication Post-op diagnosis: same as pre-op Procedure: Lumbar 5/Sacral 1 Epidural Steroid Injection Under fluoroscopic guidance Immediate complications none Solution used for injection: Marcaine 0.25% 2mL, 2cc Normal saline, Depo-Medrol 80mg Omnipaque 3 mL Anesthesia local 2% lidocaine up to 4ml Timeout process compliant After informed consent obtained. Patient brought to the procedure room placed in the prone position. Skin overlying the area was prepped and draped in a sterile fashion using betadine. 25 gauge needle used to raise a skin wheel with local anesthetic over the target area identified under fluoroscopy. A 17 gauge Touhy needle Was inserted over the anesthetized area and directed towards the inter- space under fluoroscopic guidance. Epidural space was identified with loss of resistance technique to air. Needle Tip placement confirmed with injection of contrast solution in AP and Lateral views. Steroid solution was then injected. Anesthesia: Local Surgeon: Agnieszka Ayoub Condition: stable
== END 2024-07-04 07:48 | disposition home or self-care (01) ==
LOC: SURGOUT 06:42
PROVIDERS: PCP Internal Medicine; Visit Provider Anesthesiology Pain Medicine
DX: M48.062 Spinal stenosis, lumbar region with neurogenic claudication (principal); E11.9 Type 2 diabetes mellitus without complications; Z79.4 Long term (current) use of insulin
CPT/HCPCS: 36415; 62323; 82948; J0665; J1010; Q9966

== ENCOUNTER 2024-07-19 07:28 | Outpatient (OUT) | payer MEDICARE, OTHER, SELFPAY ==
--- OUTSIDE RECORDS SUMMARY | 2024-07-19 07:31 | XMS_ITS | CCD ---
Author Organization [facility] Care Team Providers Care Director Speech Language Name Role Phone JAVAD DONATO Primary Care Physician [phone] HAWTH[place] ., DR ANTIONE Fletcher Admitting Unavailable HAWTHORNE ., DR ANTIONE Fletcher Consulting Unavailable TANMAY, DR MANN Primary Care Unavailable HAWTHORNE ., DR ANTIONE Fletcher Attending Unavailable GUERRA ., MELISSA Consulting Unavailable HAWTHORNE ., DR ANTIONE Fletcher Attending Unavailable HAWTHORNE ., DR ANTIONE Fletcher Admitting Unavailable HAWTHORNE ., DR ANTIONE Fletcher Consulting Unavailable TANMAY, DR MANN Primary Care Unavailable HAWTHORNE ., DR ANTIONE Fletcher Attending Unavailable HAWTHORNE ., DR ANTIONE Fletcher Admitting Unavailable HAWTHORNE ., DR ANTIONE Fletcher Consulting Unavailable TANMAY, DR MANN Primary Care Unavailable HAWTHORNE ., DR ANTIONE Fletcher Attending Unavailable HAWTHORNE ., DR ANTIONE Fletcher Admitting Unavailable HAWTHORNE ., DR ANTIONE Fletcher Consulting Unavailable TANMAY, DR MANN Primary Care Unavailable HAWTHORNE ., DR ANTIONE Fletcher Attending Unavailable HAWTHORNE ., DR ANTIONE Fletcher Admitting Unavailable TANMAY, DR MANN Primary Care Unavailable GUERRA ., MELISSA Consulting Unavailable HAWTHORNE ., DR ANTIONE Fletcher Attending Unavailable HAWTHORNE ., DR ANTIONE Fletcher Admitting Unavailable GUERRA ., MELISSA Consulting Unavailable TANMAY, DR MANN Primary Care Unavailable HAWTHORNE ., DR ANTIONE Fletcher Attending Unavailable HAWTHORNE ., DR ANTIONE Fletcher Admitting Unavailable HAWTHORNE ., DR ANTIONE Fletcher Consulting Unavailable TANMAY, DR MANN Primary Care Unavailable TANMAY, DR MANN Primary Care Unavailable TANMAY, DR MANN Attending Unavailable TANMAY, DR MANN Admjo Unavailable LAKSHMIPATHY ., JUN Attending Peyton vailable TANMAY, DR MANN Primary Care Unavailable RA, DR DEVIN Novak Consulting Unavailable LAKSHMIPATHY ., JUN Admitting Peyton vailable LAKSHMIPATHY ., JUN Consulting Peyton vailable HAWTHORNE ., DR ANTIONE Fletcher Admitting Unavailable HAWTHORNE ., DR ANTIONE Fletcher Consulting Unavailable HAWTHORNE ., DR ANTIONE Fletcher Attending Unavailable TANMAY, DR MANN Primary Care Unavailable HAWTHORNE ., DR ANTIONE Fletcher Attending Unavailable HAWTHORNE ., DR ANTIONE Fletcher Admitting Unavailable HAWTHORNE ., DR ANTIONE Fletcher Consulting Unavailable TANMAY, DR MANN Primary Care Unavailable LAKSHMIPATHY ., NARENDRANATH Consulting Peyton vailable LAKSHMIPATHY ., NARENDRANATH Attending Peyton vailable LAKSHMIPATHY ., NARENDDERIANATH Admitting Peyton vailable TANMAY, DR MANN Primary Care Unavailable LAKSHMIPATHY ., NARENDRANATH Consulting Peyton vailable LAKSHMIPATHY ., NARENDRANATH Attending Peyton vailable TANMAY, DR MANN Primary Care Unavailable LAKSHMIPATHY ., NARENDRANATH Admitting Peyton vailable LAKSHMIPATHY ., NARENDRANATH Admitting Peyton vailable LAKSHMIPATHY ., NARENDRANATH Consulting Peyton vailable LAKSHMIPATHY ., NARENDRANATH Attending Peyton vailable TANMAY, DR AMNN Primary Care Unavailable HAWTHORNE ., DR ANTIONE Fletcher Attending Unavailable HAWTHORNE ., DR ANTIONE Fletcher Admitting Unavailable HAWTHORNE ., DR ANTIONE Fletcher Consulting Unavailable TANMAY, DR MANN Primary Care Unavailable JAVAD SAINI Consulting Unavailable CAMILLE BAILEY Consulting Unavailable Erica Xiong Unavailable SIMONA Donato Primary Care Provider [phone] ANGELA Xiong Attending Provider Erica Xiong Admitting Unavailable Erica Xiong Attending Unavailable Javad Donato Primary Care Unavailable Unavailable Primary Care Provider UnavailLAILA Cardenas Attending Unavailable Javad Donato MD Unavailable Javad Donato MD Primary Care Provider [phone] Mac SANTIAGO Attending Unavailable Mac SANTIAGO Attending Unavailable Javad Donato MD Primary Care Provider [phone] CHARISSA BLAIR Referring Unavailable JAVAD DONATO Primary Care Unavailable CHARISSA BLAIR Admitting Unavailable CHARISSA BLAIR Attending Unavailable JAVAD DONATO Primary Care Unavailable DEVIN SAUL Attending Unavailable JAVAD DONATO Primary Care Unavailable CHARISSA BLAIR Attending Unavailable CHARISSA BLAIR Referring Unavailable DONATO, JAVAD B Primary Care Unavailable SUNNYVALE, CHARISSA Rose Referring Unavailable DONATO, JAVAD B Primary Care Unavailable SUNNYVALE, CHARISSA Rose Referring Unavailable DONATO, JAVAD B Primary Care Unavailable SUNNYVALE, CHARISSA Rose Referring Unavailable DONATO, JAVAD B Primary Care Unavailable SUNNYVALE, CHARISSA Rose Referring Unavailable DONATO, JAVAD B Primary Care Unavailable SUNNYVALE, CHARISSA Rose Admitting Unavailable SUNNYVALE, CHARISSA Rose Attending Unavailable DONATO JAVAD B Primary Care Unavailable Wednesday PAPERHANGER AND PAINTER, Michelle Unavailable Wednesday PAPERHANGER AND PAINTER, Michelle Unavailable NAGI PLATA Attending Unavailable ROSSY, CHARISSA Rose Referring Unavailable JEANNA MENDIOLA Attending Unavailable ROSSY, CHARISSA Rose Referring Unavailable JEANNA MENDIOLA Attending Unavailable ROSSY, CHARISSA Rose Referring Unavailable JEANNA MENDIOLA Attending Unavailable ROSSY, CHARISSA Rose Referring Unavailable HERNÁNDEZJOSE MARTINEZ Attending Unavailable HERNÁNDEZ, JOSE Barkley Referring Unavailable NAGI PLATA Attending Unavailable ROSSY, CHARISSA Rose Referring Unavailable JEANNA MENDIOLA Attending Unavailable ROSSY, CHARISSA Rose Referring Unavailable JEANNA MENDIOLA Attending Unavailable ROSSY, CHARISSA Rose Referring Unavailable NAGI PLATA Attending Unavailable ROSSY, CHARISSA Rose Referring Unavailable NAGI PLATA Attending Unavailable ROSSY, CHARISSA Rose Referring Unavailable HERNÁNDEZ, JOSE T Attending Unavailable HERNÁNDEZ, JOSE T Attending Unavailable HERNÁNDEZ, JOSE T Referring Unavailable HERNÁNDEZ, JOSE T Attending Unavailable HERNÁNDEZ, JOSE T Referring Unavailable ROSSY, CHARISSA Rose Attending Unavailable AMLA MCCLENDON Attending Unavailable ROSSY, CHARISSA Rose Attending Unavailable HEMALMA MITCHELL Attending Unavailable HERNÁNDEZ, JOSE T Attending Unavailable ROSSY, CHARISSA Rose Referring Unavailable JAVAD DONATO Attending Unavailable ROSSY, CHARISSA Rose Attending Unavailable ROSSY, CHARISSA Rose Attending Unavailable HERNÁNDEZ, JOSE T Attending Unavailable HERNÁNDEZ, JOSE T Referring Unavailable JAVAD DONATO Attending Unavailable NAGI PLATA Attending Unavailable HERNÁNDEZ, JOSE T Referring Unavailable DONATO, JAVAD B Referring Unavailable KAILEY GOLDMAN Attending Unavailable HERNÁNDEZ, JOSE T Referring Unavailable JEANNA MENDIOLA Attending Unavailable HERNÁNDEZ, JOSE T Referring Unavailable HERNÁNDEZ, JOSE T Attending Unavailable JEANNA MENDIOLA Attending Unavailable HERNÁNDEZ, JOSE T Referring Unavailable YOSEF CHEEMA Referring Unavailable JEANNA MENDIOLA Attending Unavailable HERNÁNDEZ, JOSE T Referring Unavailable MENDIOLA JEANNA Attending Unavailable JOSE HERNÁNDEZ Referring Unavailable JEANNA MENDIOLA Attending Unavailable JOSE HERNÁNDEZ Referring Unavailable Allergies Allergy Classification Reported Allergen(s) Allergy Type Date of Onset Reaction(s) Facility (20 sources) carvedilol; Translations: [CARVEDILOL] Drug Allergy 06-29-2022 Dizziness [facility] Medications Current Medications Medication Drug Class(es) [...] tablet (20 sources) Opioid Agonist Start: 04-12-2024 End: 06-14-2024 take 1 tablet by mouth every six hours for pain HYDROcodone-aceta minophen ([place]) 5-325 MG tablet Indications: Herniated lumbar disc without myelopathy Take 1 tablet by mouth every 6 (six) hours if needed for severe pain 40 tablet 06/14/2024 Active Start: 02-07-2024 take 1 tablet by yvon th every six hours [place] 325 mg-5 mg oral tablet 1 tab(s), [...] take 1 tablet by mouth in the pa rning cholecalciferol 1,000 units tablet Take 1 [...] by mouth once in the morning folic acid/multivit-min /lutein (CENTRUM SILVER ORAL) Take 1 tablet by mouth in the morning. Active hydroCHLOROthiazide 12.5 mg / irbesartan 150 mg oral tablet (20 sources) Thiazide Diuretic, Angiotensin 2 Receptor Becca Start: 06-23-2024 take 1 tablet by mouth once daily irbesartan-hydroC HLOROthiazide (Avalide) 150-12.5 MG tablet Indications: Benign essential hypertension (CMS/HCC) Take 1 tablet by mouth Daily 100 tablet 3 06/23/2024 Active Start: 02-08-2023 take 1 tablet by yvon th once in the morning irbesartan-hydroCHLOROthiazide (AVALIDE) 150-12.5 mg per tablet Take 1 [...] Daily, # 30 tab(s), Refills(s) 11, Pharmacy: [facility] [id number], 186, cm, 02/08/23 11:10:00 EDT, Height/Length Dosing, [...] Start: 06-30-2021 take 1 capsule by mo [facility] twice daily tamsulosin 0.4 mg Cap 0.4 mg = 1 cap(s), Oral, BID, # 60 cap(s), Refills(s) 11, Pharmacy: [facility] [id number], 186, cm, 02/08/23 11:10:00 EDT, Height/Length Dosing, [...] Ordered Start: 01-21-2024 take 1 tablet by vyon once daily tiZANidine (Zanaflex) 4 MG tablet [...] # 30 tab(s), Refills(s) 3, [facility]: [facility], 186, cm, 06/17/20 14:49:00 EST, Height/Length Dosing, 122, kg, 06/17/20 14:49:00 EST, Weight Dosing Start Date: 06/17/20 Status: Ordered Problems Active Problems Problem Classification Problem Date Documented Date Episodic/Chronic Administrative/social admission (4 sources) Patient encounter status; Translations: [Other specified counseling] 06-14-2024 Episodic Disorders of lipid metabolism (3 sources) [...] Onset: 11-25-2022 Episodic Other non-traumatic joint disorders (20 sources) [...] Test Name Value Interpretation Reference Range Facility MR LUMBAR SPINE WO CONTRASTo n 07-06-2024 MR LUMBAR SPINE WO CONTRAST EXAM: MR LUMBAR SPINE WO CONTRAST History: Low back pain Technique: Multiplanar multisequence MRI of the lumbar spine was obtained without intravenous contrast. Comparison: Lumbar spine MRI October 19, 2022 Findings: The conus medullaris ends normally. The alignment of the lumbar spine is anatomic. The vertebral body heights are well maintained. There is no aggressive bone marrow signal abnormality. Lumbarization of S1. Disc desiccation throughout the lumbar spine. L1-L2: Small disc bulge. No neuroforaminal or spinal canal stenosis. L2-L3: Small disc bulge. Mild facet arthropathy. No neural foraminal or spinal canal stenosis. L3-L4: Moderate disc bulge. Moderate to severe spinal canal stenosis. Moderate bilateral neural foraminal stenosis. L4-L5: Moderate disc bulge. Mild facet arthropathy. Moderate spinal canal stenosis. Moderate to severe bilateral neural foraminal stenosis. L5-S1: Small disc bulge. Moderate facet arthropathy. Moderate to severe bilateral neural foraminal stenosis. No spinal canal stenosis. Overall these degenerative changes appear progressed when compared to prior examination. Visualized paravertebral soft tissues appear within normal limits. Hyperintense T2 structures of the right kidney are again identified and are most compatible with cysts. IMPRESSION: Degenerative changes of the lumbar spine as detailed. ELECTRONICALLY SIGNED BY: Clark Landeros, DO Normal Not Available [facility] US LOWER EXTREMITY MEGHNA RIAL DUPLEX BILATERALon 06-22-2024 [facility] US LOWER EXTREMITY ARTERIAL DUPLEX BILATERAL EXAM: Bilateral Lower Extremity Arterial Duplex Ultrasound. REASON FOR EXAM: Claudication, cold feet. TECHNIQUE: 2-D, color Doppler and spectral analysis were utilized. FINDINGS: There is bilateral triphasic antegrade flow throughout each of the arteries of the lower extremities. Mild plaque is noted at the right common femoral artery with less than 50% stenosis. No abnormalities of velocity and no aneurysms or intraluminal thrombus. (Keith: T - triphasic; B - biphasic; M - monophasic) Location: Velocity/Waveform Location: Velocity/Waveform THIGH: THIGH: R IMMIGRATION INSPECTOR: 165 T L IMMIGRATION INSPECTOR: 119 T R SFA PROX: 101 T L SFA PROX: 121 T R SFA MID: 96 T L SFA MID 103 T R SFA DIST: 104 T L SFA DIST: 81 T R POP A: 54 T L POP A: 65 T CALF: CALF: R KAMERON: 111 T L KAMERON: 80 T R RESIDENT PHYSICIAN IN RADIOLOGY PROX: 105 T L RESIDENT PHYSICIAN IN RADIOLOGY PROX: 123 T R RESIDENT PHYSICIAN IN RADIOLOGY MID: 139 T L RESIDENT PHYSICIAN IN RADIOLOGY MID: 125 T R RESIDENT PHYSICIAN IN RADIOLOGY DIST: 129 T L RESIDENT PHYSICIAN IN RADIOLOGY DIST: 151 T R SALINAS: 105 B L SALINAS: 76 T IMPRESSION: No significant findings. Mild plaque in the right common femoral artery with less than 50% stenosis. *This report is generated using voice recognition reporting (NavTeche). On occasion [employer] erroneously drops words from the report or replaces the spoken word with similar sounding words. Please call with any questions/concerns regarding this report.* Dictated and transcribed 06/23/2024/tm This report has been electronically signed and approved by the interpreting radiologist. Normal Not Available CBC (H/H, RBC, INDICES, WBC, PLT)on 06-15-2024 Erythrocyte distribution width (RBC) [Ratio] 14.8 % Normal 11.0-15.0 [facility] Comment on above: Performed By: #### 1 245, 78725 #### [facility] [place] [address] Plasma Center Technician: Katarzyna Khan #### 5363, 7600, 496 #### [facility] [address], [address] [place] [address] Plasma Center Technician: Casey Chi MD Hematocrit (Bld) [Volume fraction] 37.3 % Low 38.5-50.0 [facility] Comment on above: Performed By: #### 1 759, 57162 #### [facility] [address] [place] [address] Plasma Center Technician: Katarzyna Khan #### 5363, 7600, 496 #### [facility] [address], [address] [place] [address] Plasma Center Technician: Casey Chi MD Hemoglobin (Bld) [Mass/Vol] 12.0 g/dL Low 13.2-17.1 [facility] Comment on above: Performed By: #### 1 759, 64202 #### [facility] [address] [place] [address] Plasma Center Technician: Katarzyna Khan #### 5363, 7600, 496 #### [facility] [address], [address] [place] [address] Plasma Center Technician: Casey Chi MD MCH (RBC) [Entitic mass] 28.0 pg Normal 27.0-33.0 [facility] Comment on above: Performed By: #### 1 759, 33516 #### [facility] [address] [place] [address] Plasma Center Technician: Katarzyna Khan #### 5363, 7600, 496 #### [facility] [address], [address] [place] [address] Plasma Center Technician: Casey Chi MD MCHC (RBC) [Mass/Vol] 32.2 g/dL Normal 32.0-36.0 [facility] Comment on above: Result Comment: For adults, a slight decrease in the calculated MCHC value (in the range of 30 to 32 g/dL) is most likely not clinically significant; however, it should be interpreted with caution in correlation with other red cell parameters and the patient's clinical condition. Performed By: #### 1 759, 10593 #### [facility] [address] [place] [address] Plasma Center Technician: Katarzyna Khan #### 5363, 7600, 496 #### [facility] [address] , [address] [place] [address] Plasma Center Technician: Casey Chi MD MCV (RBC) [Entitic vol] 86.9 fL Normal 80.0-100.0 [facility] Comment on above: Performed By: #### 1 759, 02367 #### [place] [address] Plasma Center Technician: Katarzyna Khan #### 5363, 7600, 496 #### [facility] [address], [address] [place] [address] Plasma Center Technician: Casey Chi MD Platelet mean volume (Bld) [Entitic vol] 9.1 fL Normal 7.5-12.5 [facility] Comment on above: Performed By: #### 1 759, 62695 #### [facility] [address] [place] [address] Plasma Center Technician: Katarzyna Khan #### 5363, 7600, 496 #### [facility] [place] [address] [address] , [address] [place] [address] Plasma Center Technician: Casey Chi MD Platelets (Bld) [#/Vol] 242 10*3/uL Normal 140-400 [facility] Comment on above: Performed By: #### 1 759, 38653 #### [facility] [address] [place], [place] [address] Plasma Center Technician: Katarzyna Khan #### 5363, 7600, 496 #### [facility] [address] , [address] [place] [address] Plasma Center Technician: Casey Chi MD RBC (Bld) [#/Vol] 4.29 10*6/uL Normal 4.20-5.80 [facility] Comment on above: Performed By: #### 1 759, 09099 #### [facility] [address] Plasma Center Technician: Katarzyna Khan #### 5363, 7600, 496 #### [facility] [address], [address] [place] [address] Plasma Center Technician: Casey Chi MD WBC (Bld) [#/Vol] 7.7 10*3/uL Normal 3.8-10.8 [facility] Comment on above: Performed By: #### 1 759, 80538 #### [facility] [address] Plasma Center Technician: Katarzyna Khan #### 5363, 3910, 496 #### [facility] [address], [address] [place] [address] Plasma Center Technician: Casey Chi MD [facility] 06-15-2024 Albumin [Mass/Vol] 3.9 g/dL Normal 3.6-5.1 [facility] Comment on above: Performed By: #### 1 759, 41502 #### [facility] [address] Plasma Center Technician: Katarzyna Khan #### 5363, 7600, 496 #### [facility] [address], [address] [place] [address] Plasma Center Technician: Casey Chi MD Albumin/Globulin [Mass ratio] 1.5 {ratio} Normal 1.0-2.5 [facility] Comment on above: Performed By: #### 1 759, 52190 #### [facility] [address] Plasma Center Technician: Katarzyna Khan #### 5363, 1130, 496 #### [facility] [address], [address] [place] [address] Plasma Center Technician: Casey Chi MD ALP [Catalytic activity/Vol] 71 U/L Normal 35-144 [facility] Comment on above: Performed By: #### 1 759, 93174 #### [place] [address] Plasma Center Technician: Katarzyna Khan #### 5363, 7600, 496 #### [facility] [address], [address] [place] [address] Plasma Center Technician: Casey Chi MD ALT [Catalytic activity/Vol] 18 U/L Normal 9-46 [facility] Comment on above: Performed By: #### 1 759, 63553 #### [facility] [address] Plasma Center Technician: Katarzyna Khan #### 5363, 4200, 496 #### [facility] [address], [address] [place] [address] Plasma Center Technician: Casey Chi MD AST [Catalytic activity/Vol] 18 U/L Normal 10-35 [facility] Comment on above: Performed By: #### 1 759, 98747 #### [facility] [address] Plasma Center Technician: Katarzyna Khan #### 5363, 7600, 496 #### [facility] [address], [address] [place] [address] Plasma Center Technician: Casey Chi MD Bilirubin [Mass/Vol] 0.6 mg/dL Normal 0.2-1.2 [facility] Comment on above: Performed By: #### 1 759, 75671 #### [facility] [address] [place] [address] Plasma Center Technician: Katarzyna Khan #### 5363, 7600, 496 #### [facility] [address], [address] [place] [address] Plasma Center Technician: Casey Chi MD BUN/CREATININE RATIO SEE NOTE: Normal 6-22 [facility] Comment on above: Result Comment: Not Reported: BUN and Creatinine are within reference range. Performed By: #### 1 759, 85791 #### [facility] [address] [place], [place] [id number] Plasma Center Technician: Katarzyna Khan #### 5363, 7600, 496 #### [facility] [address], [address] [place] [address] Plasma Center Technician: Casey Chi MD Calcium [Mass/Vol] 9.2 mg/dL Normal 8.6-10.3 [facility] Comment on above: Performed By: #### 1 759, 78681 #### [facility] [address] Plasma Center Technician: Katarzyna Khan #### 5363, 9060, 496 #### [facility] [address], [address] [place] [address] Plasma Center Technician: Casey Chi MD Chloride [Moles/Vol] 105 mmol/L Normal 98-110 [facility] Comment on above: Performed By: #### 1 759, 66931 #### [facility] [address] Plasma Center Technician: Katarzyna Khan #### 5363, 4490, 496 #### [facility] [address], [address] [place] [address] Plasma Center Technician: Casey Chi MD CO2 [Moles/Vol] 26 mmol/L Normal 20-32 [facility] Comment on above: Performed By: #### 1 759, 58847 #### [facility] [address] [place] [address] Plasma Center Technician: Katarzyna Khan #### 5363, 6860, 496 #### [facility] [address], [address] [place] [address] Plasma Center Technician: Casey Chi MD Creatinine [Mass/Vol] 0.82 mg/dL Normal 0.70-1.28 [facility] Comment on above: Performed By: #### 1 759, 94542 #### [facility] [address] [place] [address] Plasma Center Technician: Katarzyna Khan #### 5363, 7600, 496 #### [facility] [address], [address] [place] [address] Plasma Center Technician: Casey Chi MD GFR/1.73 sq M.predicted among non-blacks MDRD (S/P/Bld) [Vol rate/Area] 94 mL/min/{1.73_m2} Normal > OR = 60 [facility] Comment on above: Performed By: #### 1 759, 04183 #### [facility] [address] Plasma Center Technician: Katarzyna Khan #### 5363, 8440, 496 #### [facility] [address], [address] [place] [address] Plasma Center Technician: Casey Chi MD Globulin (S) [Mass/Vol] 2.6 g/dL Normal 1.9-3.7 [facility] Comment on above: Performed By: #### 1 539, 12394 #### [facility] [address] Plasma Center Technician: Katarzyna Khan #### 5363, 1970, 496 #### [facility] [address], [address] [place] [address] Plasma Center Technician: Casey Chi MD Glucose [Mass/Vol] 106 mg/dL High 65-99 [facility] Comment on above: Result Comment: Fasting reference interval For someone without known diabetes, a glucose value between 100 and 125 mg/dL is consistent with prediabetes and should be confirmed with a follow-up test. Performed By: #### 1 759, 00928 #### [facility] [id number] Plasma Center Technician: Katarzyna Khan #### 5363, 7600, 496 #### [facility] [address] , [address] [place] [address] Plasma Center Technician: Casey Chi MD Potassium [Moles/Vol] 4.1 mmol/L Normal 3.5-5.3 [facility] Comment on above: Performed By: #### 1 759, 00018 #### [facility] [address] Plasma Center Technician: Katarzyna Khan #### 5363, 7600, 496 #### [facility] [address], [address] [place] [address] Plasma Center Technician: Casey Chi MD Protein [Mass/Vol] 6.5 g/dL Normal 6.1-8.1 [facility] Comment on above: Performed By: #### 1 759, 21893 #### [facility] [address] Plasma Center Technician: Katarzyna Khan #### 5363, 9170, 496 #### [facility] [address], [address] [place] [address] Plasma Center Technician: Casey Chi MD Sodium [Moles/Vol] 139 mmol/L Normal 135-146 [facility] Comment on above: Performed By: #### 1 759, 40253 #### [facility] Plasma Center Technician: Katarzyna Khan #### 5363, 7600, 496 #### [facility] [address] , [address] [place] [address] Plasma Center Technician: Casey Chi MD Urea nitrogen [Mass/Vol] 16 mg/dL Normal 7-25 [facility] Comment on above: Performed By: #### 1 759, 74650 #### [facility] [address] [place], [place] [id number] Plasma Center Technician: Katarzyna Khan #### 5363, 0510, 496 #### [facility] [place] [address] [address] , [address] [place] [address] Plasma Center Technician: Casey Chi MD HEMOGLOBIN A1con 06-15-2024 HEMOGLOBIN A1c 5.6 % of total Hgb Normal <5.7 [facility] Comment on above: Result Comment: For the purpose of screening for the presence of diabetes: <5.7% Consistent with the absence of diabetes 5.7-6.4% Consistent with increased risk for diabetes (prediabetes) > or =6.5% Consistent with diabetes This assay result is consistent with a decreased risk of diabetes. Currently, no consensus exists regarding use of hemoglobin A1c for diagnosis of diabetes in children. According to [place] [employer] Association (ADA) guidelines, hemoglobin A1c <7.0% represents optimal control in non- diabetic patients. Different metrics may apply to specific patient populations. Standards of Medical Care in Diabetes(ADA). Performed By: #### 1 759, 38848 #### [facility] [address] [place] [address] Plasma Center Technician: Katarzyna Khan #### 5363, 9850, 496 #### [facility] [address], [address] [place] [address] Plasma Center Technician: Casey Chi MD LIPID PANEL, STANDARDon 05-28 Cholesterol [Mass/Vol] 172 mg/dL Normal <200 [facility] Comment on above: Order Comment: FASTI NG:YES FASTING: YES Performed By: #### 1 839, 67409 #### [facility] [address] [place], [place] [address] Plasma Center Technician: Katarzyna Khan #### 5363, 3600, 496 #### [facility] [address], [address] [place] [address] Plasma Center Technician: Casey Chi MD Cholesterol in HDL [Mass/Vol] 32 mg/dL Low > OR = 40 [facility] Comment on above: Order Comment: FASTI NG:YES FASTING: YES Performed By: #### 1 659, 25594 #### [facility] [address] [place] [address] Plasma Center Technician: Katarzyna Khan #### 5363, 7600, 496 #### [facility] [address], [address] [place], [place] [phone] Plasma Center Technician: Casey Chi MD Cholesterol in LDL [Mass/Vol] 100 mg/dL High [facility] Comment on above: Order Comment: FASTI NG:YES FASTING: YES Result Comment: Refe rence range: <100 Desirable range <100 mg/dL for primary prevention; <70 mg/dL for patients with CHD or diabetic patients with > or = 2 CHD risk factors. LDL-C is now calculated using the Deyvi calculation, which is a validated novel method providing better accuracy than the Friedewald equation in the estimation of LDL-C. Humberto SS et al. LULU. 2013;310(19): 8919-3088 (http://education.IJJ [employer]P/faq/IAA923) Performed By: #### 1 759, 99512 #### [facility] [address] [place] [address] Plasma Center Technician: Katarzyna Khan #### 5363, 7600, 496 #### [facility] [address], [address] [place], [place] [phone] Plasma Center Technician: Casey Chi MD Cholesterol.total/ Cholesterol in HDL [Mass ratio] 5.4 {ratio} High <5.0 [facility] Comment on above: Order Comment: FASTI NG:YES FASTING: YES Performed By: #### 1 759, 32638 #### [facility] [place] [address] Plasma Center Technician: Katarzyna Khan #### 5363, 7600, 496 #### [facility] [address], [address] [place], [place] [phone] Plasma Center Technician: Casey Chi MD NON HDL CHOLESTEROL 140 mg/dL (calc) High <130 [facility] Comment on above: Order Comment: FASTI NG:YES FASTING: YES Result Comment: For patients with diabetes plus 1 major ASCVD risk factor, treating to a non-HDL-C goal of <100 mg/dL (LDL-C of <70 mg/dL) is considered a therapeutic option. Performed By: #### 1 759, 64648 #### [facility] [address] [place] [phone] Plasma Center Technician: Katarzyna Khan #### 5363, 7600, 496 #### [facility] [address], [address] [place] [address] Plasma Center Technician: Casey Chi MD Triglyceride [Mass/Vol] 299 mg/dL High <150 [facility] Comment on above: Order Comment: FASTI NG:YES FASTING: YES Result Comment: If a non-fasting specimen was collected, consider repeat triglyceride testing on a fasting specimen if clinically indicated. Fabiola et al. J. of Clin. Lipidol. 2015;9:129-169. Performed By: #### 1 759, 15035 #### [facility] [address] [place] [address] Plasma Center Technician: Katarzyna Khan #### 5363, 7600, 496 #### [facility] [address], [address] [place] [address] Plasma Center Technician: Casey Chi MD PSA, TOTALon 06-15-2024 PSA, TOTAL 0.43 ng/mL Normal < OR = 4.00 [facility] Comment on above: Result Comment: The total PSA value from this assay system is standardized against the WHO standard. The test result will be approximately 20% lower when compared to the equimolar-standardized total PSA (Dee Dee Mandi). Comparison of serial PSA results should be interpreted with this fact in mind. This test was performed using the Siemens chemiluminescent method. Values obtained from different assay methods cannot be used interchangeably. PSA levels, regardless of value, should not be interpreted as absolute evidence of the presence or absence of disease. Performed By: #### 1 759, 27104 #### [facility] [address] [place] [phone] Plasma Center Technician: Katarzyna Khan #### 5363, 7600, 496 #### [facility] [address], [address] [place], [place] [phone] Plasma Center Technician: Casey Chi MD XR Hip - left 3 Viewson 05-28 [...] Unremarkable left total hip arthroplasty. Jose Hernández DISTRICT FIRE MANAGEMENT OFFICER-ORAL PATHOLOGIST [facility] [employer] [facility] Radiology Study observation (narrative) [facility] [email or web address] XR HIP LT 2-3 VIEWS W OR WO PELVISon 05-03-2024 XR HIP LT 2-3 VIEWS W OR WO PELVIS XR HIP LT 2-3 VIEWS W OR WO PELVIS XR HIP LT 2-3 VIEWS W OR WO PELVIS HISTORY: Hip replacement. COMPARISON: None. IMPRESSION: 1. Hip prosthesis without visible complication. Soft tissue gas and swelling. Finalized by Price Delcid MD on 05/03/2024 10:26 AM Normal [facility] XR Hip - left 3 Viewson 03-28 Imaging Result: April 06, 2024 x-rays AP and lateral of the left hip demonstrate joint space collapse with subchondral sclerosis and osteophyte formation consistent with arthritis. Impression: Arthritis of the left hip Amauri Blair D.O. [facility] [employer] [facility] XR Hip - left 3 Viewson 03-28 Radiology Study observation (narrative) [facility] [email or web address] BASIC METABOLIC PANLon 04-04 Anion gap [Moles/Vol] 9 mmol/L Normal 5-15 [facility] Comment on above: Performed By: #### C BCA, BMP #### [facility] ([id number]) [address], [address] [place] [address] Calcium [Mass/Vol] 9.8 mg/dL Normal 8.5-10.5 [facility] Comment on above: Performed By: #### C BCA, BMP #### [facility] ([id number]) [address] [place] [address] Chloride [Moles/Vol] 103 mmol/L Normal 98-109 [facility] Comment on above: Performed By: #### C SHERITA, BMP #### [facility] ([id number]) [address], [address] [place] [address] CO2 [Moles/Vol] 27 mmol/L Normal 22-32 [facility] Comment on above: Performed By: #### C SHERITA, BMP #### [facility] ([id number]) [address] [address] [place] [address] Creatinine [Mass/Vol] 0.89 mg/dL Normal 0.60-1.30 [facility] Comment on above: Result Comment: METH OD TRACEABLE TO IDMS STANDARD Performed By: #### C SHERITA, BMP #### [facility] ([id number]) [address] [place] [address] eGFR (CKD-EPI) NON-RACE DEPENDENT >90 Normal >59 [facility] Comment on above: Result Comment: Reported eGFR is based on the CKD-EPI 2020 equation that does not use a race coefficient. Performed By: #### C SHERITA, BMP #### [facility] ([id number]) [address], [address] [place] [address] Glucose [Mass/Vol] 101 mg/dL High 65-99 [facility] Comment on above: Performed By: #### C SHERITA, BMP #### [facility] ([id number]) [address] [address] [place] [address] Potassium [Moles/Vol] 4.1 mmol/L Normal 3.5-5.0 [facility] Comment on above: Performed By: #### C SHERITA, BMP #### [facility] ([id number]) [address] [address] [place] [address] Sodium [Moles/Vol] 139 mmol/L Normal 134-146 [facility] Comment on above: Performed By: #### C SHERITA, BMP #### [facility] ([id number]) [address], [address] [place] [address] Urea nitrogen [Mass/Vol] 19 mg/dL Normal 5-27 [facility] Comment on above: Performed By: #### Manuela MAGALLON, BMP #### [facility] ([id number]) [address] [place] [address] Basic Metabolic Panelon 10-0 Anion gap [Moles/Vol] 9 mmol/L 5 - 15 mmol/L [facility] Calcium [Mass/Vol] 9.8 mg/dL 8.5 - 10. 5 mg/dL [facility] Chloride [Moles/Vol] 103 mmol/L 98 - 109 mmol/L [facility] CO2 [Moles/Vol] 27 mmol/L 22 - 32 mmol/L [facility] Creatinine [Mass/Vol] 0.89 mg/dL 0.60 - 1.30 mg/dL [facility] Comment on above: METHOD TRACEABLE TO IDWA STANDARD eGFR (CKD-EPI)non-race dependent - PINF [facility] Comment on above: Reported eGFR is based on the CKD-EPI 2020 equation that does not use a race coefficient. Glucose [Mass/Vol] 101 mg/dL High 65 - 99 mg/dL [facility] Interpretation and review of laboratory results Abnormal [facility] Potassium [Moles/Vol] 4.1 mmol/L 3.5 - 5.0 mmol/L [facility] Sodium [Moles/Vol] 139 mmol/L 134 - 146 mmol/L [facility] Urea nitrogen [Mass/Vol] 19 mg/dL 5 - 27 mg/dL [facility] CBC AND AUTO DIFFon 04-04-20 ABSOLUTE BASOPHIL 0.0 X10E9/L Normal 0.0-0.2 [facility] Comment on above: Performed By: #### C SHERITA, BMP #### [facility] ([id number]) [address] [place] [address] ABSOLUTE NEUTROPHIL 4.6 X10E9/L Normal 1.5-6.6 [facility] Comment on above: Performed By: #### C SHERITA, BMP #### [facility] ([id number]) [address] [place] [address] Basophils/100 WBC (Bld) 0.4 % Normal [facility] Comment on above: Performed By: #### C SHERITA, BMP #### [facility] ([id number]) [address] [place] [address] Eosinophils (Bld) [#/Vol] 0.1 10*3/uL Normal 0.0-0.4 [facility] Comment on above: Performed By: #### C SHERITA, BMP #### [facility] ([id number]) [address], [address] [place] [address] Eosinophils/100 WBC (Bld) 1.8 % Normal [facility] Comment on above: Performed By: #### C SHERITA, BMP #### [facility] ([id number]) [address] [place] [address] Erythrocyte distribution width (RBC) [Ratio] 15.1 % High 11.5-15.0 [facility] Comment on above: Performed By: #### C SHERITA, BMP #### [facility] ([id number]) [address] [place] [address] Hematocrit (Bld) [Volume fraction] 36.7 % Low 39-49 [facility] Comment on above: Performed By: #### C BCA, BMP #### [facility] ([id number]) [address] [address] [place] [address] Hemoglobin (Bld) [Mass/Vol] 12.5 g/dL Low 13.0-17.0 [facility] Comment on above: Performed By: #### C SHERITA, BMP #### [facility] ([id number]) [address], [address] [place] [address] Lymphocytes (Bld) [#/Vol] 1.4 10*3/uL Normal 1.0-3.5 [facility] Comment on above: Performed By: #### Manuela MAGALLON, BMP #### [facility] ([id number]) [address], [address] [place] [address] Lymphocytes/100 WBC (Bld) 21.3 % Normal [facility] Comment on above: Performed By: #### C SHERITA, BMP #### [facility] ([id number]) [address], [address] [place] [address] MCH (RBC) [Entitic mass] 30.1 pg Normal 27-34 [facility] Comment on above: Performed By: #### C SHERITA, BMP #### [facility] ([id number]) [address], [address] [place] [address] MCHC (RBC) [Mass/Vol] 34.0 g/dL Normal 32-36 [facility] Comment on above: Performed By: #### C SHERITA, BMP #### [facility] ([id number]) [address] [place] [address] MCV (RBC) [Entitic vol] 89 fL Normal 80-100 [facility] Comment on above: Performed By: #### C SHERITA, BMP #### [facility] ([id number]) [address] [address] [place] [address] Monocytes (Bld) [#/Vol] 0.6 10*3/uL Normal 0-0.9 [facility] Comment on above: Performed By: #### C SHERITA, BMP #### [facility] ([id number]) [address] [address] [place] [address] Monocytes/100 WBC (Bld) 8.6 % Normal [facility] Comment on above: Performed By: #### C BCA, BMP #### [facility] ([id number]) [address], [facility] [address] [place] [address] Neutrophils/100 WBC (Bld) 67.9 % Normal [facility] Comment on above: Performed By: #### Manuela MAGALLON, BMP #### [facility] ([id number]) [address], [facility] [address] [place] [address] Platelet mean volume (Bld) [Entitic vol] 8.0 fL Normal 7-12 [facility] Comment on above: Performed By: #### Manuela MAGALLON, BMP #### [facility] ([id number]) [address], [facility] [address] [place] [address] Platelets (Bld) [#/Vol] 205 10*3/uL Normal 150-450 [facility] Comment on above: Performed By: #### Manuela MAGALLON, BMP #### [facility] ([id number]) [address] [place] [address] RBC COUNT 4.14 X10E12/L Normal 4.10-5.70 [facility] Comment on above: Performed By: #### Manuela MAGALLON, BMP #### [facility] ([id number]) [address], [address] [address] WBC (Bld) [#/Vol] 6.7 10*3/uL Normal 4.0-11.0 [facility] Comment on above: Performed By: #### Manuela MAGALLON, BMP #### [facility] ([id number]) [address], [address] [place] [address] CBC auto differentialon 10-0 Basophils (Bld) [#/Vol] 0.0 10*3/uL [facility] Basophils/100 WBC (Bld) 0.4 % [facility] Eosinophils (Bld) [#/Vol] 0.1 10*3/uL [facility] Eosinophils/100 WBC (Bld) 1.8 % [facility] Erythrocyte distribution width (RBC) [Ratio] 15.1 % High 11.5 - 15.0 % [facility] Hematocrit (Bld) [Volume fraction] 36.7 % Low 39 - 49 % [facility] Hemoglobin (Bld) [Mass/Vol] 12.5 g/dL Low 13.0 - 17.0 g/dL [facility] Interpretation and review of laboratory results Abnormal [facility] Lymphocytes (Bld) [#/Vol] 1.4 10*3/uL [facility] Lymphocytes/100 WBC (Bld) 21.3 % [facility] MCH (RBC) [Entitic mass] 30.1 pg 27 - 34 pg [facility] MCHC (RBC) [Mass/Vol] 34.0 g/dL 32 - 36 g/dL [facility] MCV (RBC) [Entitic vol] 89 fL 80 - 100 fL [facility] Monocytes (Bld) [#/Vol] 0.6 10*3/uL [facility] Monocytes/100 WBC (Bld) 8.6 % [facility] Neutrophils (Bld) [#/Vol] 4.6 10*3/uL [facility] Neutrophils/100 WBC (Bld) 67.9 % [facility] Platelet mean volume (Bld) [Entitic vol] 8.0 fL 7 - 12 fL [facility] Platelets (Bld) [#/Vol] 205 10*3/uL [facility] RBC (Bld) [#/Vol] 4.14 10*6/uL [facility] WBC corrected for nucl RBC Auto (Bld) [#/Vol] 6.7 [facility] ECG 12 leadon 04-04-2024 TRACEMASTERVUE [facility] Ambulatory Visit Summaryon 0 02-07-2024 Ambulatory Visit [...] Strength 500 mg oral tablet) acetaminophen-hydroco done ([place] 325 mg-5 mg oral tablet) ascorbic acid [...] FEROZ When: Where: [facility] [address], [place] [address]- Medications What How Much When Instructions Unchanged [...] if questions or concerns Unchanged acetaminophen-hydroco done ([place] 325 mg-5 mg oral tablet) 1 Tablets [...] 50 ye (more content not included)... Normal [facility] Urology Office/Clinic Noteon 02-07-2024 Urology [...] [facility] [address], [place] [address]- Additional Instructions: 1 yr Patient Education Benign Prostatic Hyperplasia Linda Perez, personally scribed for Dr. Santiago on 02/07/2024 [...] tablet, 200 mg= 1 tab(s), Oral, q24hr [place] 325 mg-5 mg oral tablet, 1 tab(s), [...] 1 c (more content not included)... Normal [facility] Comment on above: Result Comment: [...] right total hip replacement Amauri Blair D.O. [facility] [email or web address] Radiology Study observation (narrative) [facility] [email or web address] XR Hip - right 3 ViewsOrdere d By: Charissa Blair on 08-09-2023 [facility] Work Phone: XR HIP RT 2-3 [...] MD on 07/07/2023 11:06 AM Normal [facility] CNOVon 04-13-2023 CNOV Office Visit (SPSLU ) LAWSON VELA ([id number]) 1955 M PENDING SALE TO [facility] Date Time Provider Department 04/13/23 11:00 AM LAILA LEWIS [facility] During your visit today, we recorded the [...] a week. 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 [facility] XR lumbar spine 6V w bending on 12-17-2022 XR lumbar spine 6V w bending [facility] Main [place] [address] [place] [address] XRay Report Signed Patient: Lawson Vela MR#: [id number] : 1955 Acct:[id number] Age/Sex: 67 / M ADM Date: 12/17/22 Loc: XD Room: Type: [facility] Attending Dr: Erica MILLER Copies to: ANGELA [...] OF L5-S1. Impression dictated by: Lenny Cobian Jr. DJacqueline12/17/2022 3:16 PM Dictation Location: [place] [address] Transcribed By: PWS 12/17/22 1516 Dictated By: Lenny Cobian Jr, DO 12/17/22 1514 Signed By: 12/17/22 [address] [facility] XR lumbar spine 6V w bending [facility] [employer] Other XR lumbar spine 6V w bending [facility] [employer] Other XR lumbar spine 6V w bending [address] [place] [address] [employer] Other XR lumbar spine 6[place] [address] [employer] Other XR lumbar spine 6V w bending XRay Report [employer] Other XR lumbar spine 6V w bending Signed [employer] Other XR lumbar spine 6V w bending Patient: Lawson Vela MR#: [id number] [employer] Other XR lumbar spine 6V w bending : 1955 Acct:[id number] [employer] Other XR lumbar spine 6V w bending Age/Sex: 67 / M ADM Date: 12/17/22 [employer] Other XR lumbar spine 6V w bending Loc: XD Room: Type: [facility] [employer] Other XR lumbar spine 6V w bending Attending Dr: Erica MILLER [employer] Other XR lumbar spine 6V w bending Copies to: ANGELA Khan [employer] Other XR lumbar spine 6V w bending Ordering Provider: ANGELA Khan [employer] Other XR lumbar spine 6V w bending Date of Service: 12/17/22 [employer] Other XR lumbar spine 6V w bending XR/XR lumbar spine 6V w bending: M54.16 [employer] Other XR lumbar spine 6V w bending LUMBAR SPINE - 6 views [employer] Other XR lumbar spine 6V w bending CLINICAL HISTORY: Right leg pain and numbness that radiates to toes [facility] Other XR lumbar spine 6V w bending COMPARISON: None [facility] Other XR lumbar spine 6V w bending FINDINGS: Vertebral body heights appear maintained. Diffuse endplate and facet joint degenerative [employer] Other XR lumbar spine 6V w bending changes. Mild diffuse disc space narrowing with relative sparing of L5-S1. No pathological motion [employer] Other XR lumbar spine 6V w bending on flexion or extension views. Limited sidebending. [employer] Other XR lumbar spine 6V w bending XR/XR lumbar spine 6V w bending [employer] Other XR lumbar spine 6V w bending IMPRESSION: [employer] Other XR lumbar spine 6V w bending DEGENERATIVE CHANGES OF THE LUMBAR SPINE WITH MILD DIFFUSE DISC SPACE NARROWING WITH RELATIVE [employer] Other XR lumbar spine 6V w bending SPARING OF L5-S1. [facility] Other XR lumbar spine 6V w bending Impression dictated by: Lenny Cobian Jr., D.OFabio12/17/2022 3:16 PM [employer] Other XR lumbar spine 6V w bending Dictation Location: [facility] [employer] Other XR lumbar spine 6V w bending Transcribed By: PWS 12/17/22 [facility] [employer] Other XR lumbar spine 6V w bending Dictated By: Lenny Cobian Jr DO 12/17/22 [facility] [employer] Other XR lumbar spine 6V w bending Signed By: [employer] Other XR lumbar spine 6V w bending 12/17/22 4927 [facility] Other XR HIPS TRENT 3_4V WO PELVISon 11-13-2022 XR HIPS TRENT 3_4V WO PELVIS EXAMINATION: XR HIPS TRENT 3_4V WO PELVIS HISTORY: Bilateral hip joint [...] by: DEVIN KNAPP Date: 2022-11-13 13:07 Normal [facility] MRI Lumbar Spine w/oon 05-01 MRI [...] by YASMANY ARAYA on 05/01/2022 1217 Normal [facility] XR Orbits for MRIon 04-27-20 22 XR Orbits for MRI CLINICAL HISTORY: Prescreening for MRI. COMPARISON: None. RESULT: No radiopaque foreign bodies. No acute osseous findings. IMPRESSION: No radiopaque foreign bodies. Report reported and signed by Javad Dickens on 04/27/2022 1540 Normal [facility] XR Spine Lumbar 4+ Views*on 04-06-2022 [...] by Lenny Cook on 04/06/2022 1106 Normal [facility] Specialist Vital Signs Date Time Vital Sign Value Performing Clinician Facility 06-14-2024 09:36-0500 Body height 185.4 cm Javad Donato MD Work Phone: [facility] 06-14-2024 09:36-0500 Body mass index (BMI) [Ratio] 37.6 kg/m2 Javad Donato MD Work Phone: [facility] 06-14-2024 09:36-0500 Body weight 129.28 kg Javad Donato MD Work Phone: [facility] 06-14-2024 09:36-0500 Diastolic blood pressure 70 mm[Hg] Javad Donato MD Work Phone: [facility] 06-14-2024 09:36-0500 Heart rate 98 /min Javad Donato MD Work Phone: [facility] 06-14-2024 09:36-0500 SaO2% (BldA) [Mass fraction] 97 % Javad Donato MD Work Phone: [facility] 06-14-2024 09:36-0500 Systolic blood pressure 126 mm[Hg] Javad Donato MD Work Phone: [facility] 04-17-2024 13:49-0400 Body height 185.4 cm Javad Donato MD Work Phone: [facility] 04-17-2024 13:49-0400 Body mass index (BMI) [Ratio] 37.6 kg/m2 Javad Donato MD Work Phone: [facility] 04-17-2024 13:49-0400 Body weight 129.28 kg Javad Donato MD Work Phone: [facility] 04-17-2024 13:49-0400 Diastolic blood pressure 68 mm[Hg] Javad Donato MD Work Phone: [facility] 04-17-2024 13:49-0400 Heart rate 96 /min Javad Donato MD Work Phone: [facility] 04-17-2024 13:49-0400 SaO2% (BldA) [Mass fraction] 98 % Javad Donato MD Work Phone: [facility] 04-17-2024 13:49-0400 Systolic blood pressure 128 mm[Hg] Javad Donato MD Work Phone: [facility] 04-06-2024 11:31-0400 Body height 185.4 cm Charissa Blair DO Work Phone: [facility] 04-06-2024 11:31-0400 Body mass index (BMI) [Ratio] 38.16 kg/m2 Charissa Blair DO Work Phone: [facility] 04-06-2024 11:31-0400 Body weight 131.18 kg Charissa Blair DO Work Phone: [facility] 04-04-2024 09:12-0400 Body height 185.4 cm Pmh 1 [facility] 04-04-2024 09:12-0400 Body mass index (BMI) [Ratio] 37.34 kg/m2 Pmh 1 [facility] 04-04-2024 09:12-0400 Body weight 128.37 kg Pm 1 [facility] 02-17-2024 10:18-0400 Body height 185.4 cm Alma Hemmer PA Work Phone: [facility] 02-17-2024 10:18-0400 Body mass index (BMI) [Ratio] 38.26 kg/m2 Alma Hemmer PA Work Phone: [facility] 02-17-2024 10:18-0400 Body weight 131.54 kg Alma Hemmer PA Work Phone: [facility] 02-17-2024 10:18-0400 Diastolic blood pressure 78 mm[Hg] Alma Hemmer PA Work Phone: [facility] 02-17-2024 10:18-0400 Heart rate 82 /min Alma Hemmer PA Work Phone: [facility] 02-17-2024 10:18-0400 SaO2% (BldA) [Mass fraction] 96 % Alma Hemmer PA Work Phone: [facility] 02-17-2024 10:18-0400 Systolic blood pressure 136 mm[Hg] Alma Hemmer PA Work Phone: [facility] 02-07-2024 10:23-0400 Blood Pressure Location Mac SANTIAGO [facility] 02-07-2024 10:23-0400 Body temperature 98.6 [degF] Mac SANTIAGO [facility] 02-07-2024 10:23-0400 Diastolic blood pressure 82 mm[Hg] Mac SANTIAGO [facility] 02-07-2024 10:23-0400 Heart rate 75 /min Mac SANTIAGO [facility] 02-07-2024 10:23-0400 Respiratory rate 16 /min Mac SANTIAGO [facility] 02-07-2024 10:23-0400 Systolic blood pressure 132 mm[Hg] Mac SANTIAGO [facility] 12-17-2022 13:00-0400 Body height 182.88 cm Erica Xiong Other [facility] Other 12-17-2022 13:00-0400 Body mass index (BMI) [Ratio] 38.51 kg/m2 Erica Xiong Other [facility] Other 12-17-2022 13:00-0400 Body weight 128.82 kg Erica Xiong Other [facility] Other 12-17-2022 13:00-0400 Diastolic blood pressure 88 mm[Hg] Erica Xiong Other [facility] Other 12-17-2022 13:00-0400 Systolic blood pressure 146 mm[Hg] Erica Xiong Other [facility] Other 06-01-2022 11:29-0500 Blood Pressure Location Macmichelle SANTIAGO [facility] 06-01-2022 11:29-0500 Diastolic blood pressure 76 mm[Hg] Mac SANTIAGO [facility] 06-01-2022 11:29-0500 Heart rate 70 /min Mac SANTIAGO [facility] 06-01-2022 11:29-0500 Respiratory rate 16 /min Mac SANTIAGO [facility] 06-01-2022 11:29-0500 Systolic blood pressure 128 mm[Hg] Mac SANTIAGO [facility] 02-16-2022 10:28-0400 Blood Pressure Location Mac SANTIAGO [facility] 02-16-2022 10:28-0400 Diastolic blood pressure 84 mm[Hg] Mac SANTIAGO [facility] 02-16-2022 10:28-0400 Heart rate 68 /min Mac SANTIAGO [facility] 02-16-2022 10:28-0400 Respiratory rate 16 /min Mac SANTIAGO [facility] 02-16-2022 10:28-0400 Systolic blood pressure 136 mm[Hg] Mac SANTIAGO [facility] Encounters Encounter Date Encounter Type Care Provider Facility Start: 02-05-2025 ambulatory Mac Stephenson PAMELA Lan ty:BEVERLY Jackson Start: 07-14-2024 End: 07-14-2024 ambulatory Jeanna Mendiola RESIDENT PHYSICIAN IN RADIOLOGY Work Phone: [facility] Comment on above: Left hip pain (Prima ry Dx); S/P total left hip arthroplasty Start: 07-12-2024 End: 07-12-2024 Bamboo flowsheet Jeanna Mendiola RESIDENT PHYSICIAN IN RADIOLOGY Work Phone: [facility] Start: 07-12-2024 End: 07-12-2024 Bamboo flowsheet Jeanna Mendiola RESIDENT PHYSICIAN IN RADIOLOGY Work Phone: [facility] Start: 07-12-2024 End: 07-12-2024 ambulatory Jeanna Mendiola RESIDENT PHYSICIAN IN RADIOLOGY Work Phone: [facility] Comment on above: Left hip pain (Prima ry Dx); S/P total left hip arthroplasty Start: 07-07-2024 End: 07-07-2024 Bamboo flowsheet Jeanna Mendiola RESIDENT PHYSICIAN IN RADIOLOGY Work Phone: [facility] Start: 07-07-2024 End: 07-07-2024 Bamboo flowshector Mendiola RESIDENT PHYSICIAN IN RADIOLOGY Work Phone: [facility] Start: 07-07-2024 End: 07-07-2024 ambulatory Jeanna Mendiola RESIDENT PHYSICIAN IN RADIOLOGY Work Phone: [facility] Comment on above: Left hip pain (Prima ry Dx); S/P total left hip arthroplasty Start: 07-06-2024 End: 07-06-2024 ambulatory YOSEF CHEEMA Not Available Start: 07-05-2024 End: 07-05-2024 ambulatory Jeanna Mendiola RESIDENT PHYSICIAN IN RADIOLOGY Work Phone: [facility] Comment on above: Left hip pain (Prima ry Dx); S/P total left hip arthroplasty Start: 07-03-2024 End: 07-03-2024 Bamboo flowsheet Jose Hernández LUGGAGE REPAIRER Work Phone: [facility] Start: 07-03-2024 End: 07-03-2024 Bamboo flowsheet Jose Hernández LUGGAGE REPAIRER Work Phone: [facility] Start: 07-03-2024 End: 07-03-2024 Postop follow up visit related to original px Jose Hernández LUGGAGE REPAIRER Work Phone: [facility] Comment on above: S/P total left hip a rthroplasty (Primary Dx) Start: 07-03-2024 End: 07-03-2024 ambulatory JOSE HERNÁNDEZ Not Available Start: 06-30-2024 End: 06-30-2024 Bamboo flowsheet Jeanna Mendiola RESIDENT PHYSICIAN IN RADIOLOGY Work Phone: [facility] Start: 06-30-2024 End: 06-30-2024 Bamboo flowsheet Jeanna Mendiola RESIDENT PHYSICIAN IN RADIOLOGY Work Phone: [facility] Start: 06-30-2024 End: 06-30-2024 ambulatory Jeanna Mendiola RESIDENT PHYSICIAN IN RADIOLOGY Work Phone: [facility] Comment on above: Left hip pain (Prima ry Dx); S/P total left hip arthroplasty Start: 06-26-2024 End: 06-26-2024 Bamboo flowsheet Kailey Jonesall RESIDENT PHYSICIAN IN RADIOLOGY [facility] Start: 06-26-2024 End: 06-26-2024 Bamboo flowsheet Kailey Cleaningtersall RESIDENT PHYSICIAN IN RADIOLOGY [facility] Start: 06-26-2024 End: 06-26-2024 ambulatory Kailey Jonesall RESIDENT PHYSICIAN IN RADIOLOGY [facility] Comment on above: Left hip pain (Prima ry Dx); S/P total left hip arthroplasty Start: 06-22-2024 End: 06-22-2024 ambulatory JAVAD DONATO Not Available Start: 06-20-2024 End: 06-20-2024 Bamboo flowsheet Nagi Plata PT Work Phone: [facility] Start: 06-20-2024 End: 06-20-2024 Bamboo flowsheet Nagi Plata PT Work Phone: [facility] Start: 06-20-2024 End: 06-20-2024 ambulatory Nagi Plata PT Work Phone: [facility] Comment on above: Left hip pain (Prima ry Dx); S/P total left hip arthroplasty Start: 06-14-2024 End: 06-14-2024 Bamboo flowsheet Javad Donato MD Work Phone: [facility] Start: 06-14-2024 End: 06-14-2024 Bamboo flowsheet Javad [...] lumbar disc without myelopathy; Claudication (CMS/HCC) Start: 06-14-2024 End: 06-14-2024 ambulatory JAVAD DONATO Not Available Start: 06-12-2024 End: 06-12-2024 Bamboo flowsheet Jose Hernández LUGGAGE REPAIRER Work Phone: [facility] Start: 06-12-2024 End: 06-12-2024 Bamboo flowsheet Jose Hernández LUGGAGE REPAIRER Work Phone: [facility] Start: 06-12-2024 End: 06-12-2024 Postop follow up visit related to original px Jose Hernández LUGGAGE REPAIRER Work Phone: [facility] Comment on [...] up visit related to original px Charissa Milton Rossy DO Work Phone: [facility] Comment [...] up visit related to original px Charissa Milton Rossy DO Work Phone: [facility] Comment on above: S/P total left hip a rthroplasty (Primary Dx) Start: 05-09-2024 End: 05-09-2024 ambulatory CHARISSA BLAIR Not Available Start: 05-08-2024 End: 05-08-2024 Telephone encounter Jose Hernández LUGGAGE REPAIRER Work Phone: [facility] Start: 05-04-2024 End: 05-04-2024 Telephone encounter Charissa Blair DO Work Phone: [facility] Comment on above: Discharge Start: 05-03-2024 End: 05-03-2024 ambulatory CHARISSA BLAIR [facility] Start: 05-02-2024 End: 05-02-2024 Refill Jose Hernández LUGGAGE REPAIRER Work Phone: [facility] Comment on [...] 04-06-2024 End: 04-06-2024 Bamboo flowsheet Jose Hernández LUGGAGE REPAIRER Work Phone: [facility] Start: 04-06-2024 End: 04-06-2024 Bamboo flowsheet Jose Hernández LUGGAGE REPAIRER Work Phone: [facility] Start: 04-06-2024 End: 04-06-2024 Office outpatient visit 40 minutes Charissa Blair DO Work Phone: [facility] Comment on above: Left hip pain; Arthritis of left hip Start: 04-06-2024 End: 04-06-2024 ambulatory CHARISSA BLAIR Not Available Start: 04-04-2024 End: 04-04-2024 Patient encounter procedure [facility] Pre-Admission Testing 1 [facility] - Pre Admit Comment on above: Preop examination (P rimary Dx); Hypertension, unspecified type Start: 04-04-2024 End: 04-04-2024 Preprocedural examination done Pm 1 [facility] Start: 04-04-2024 End: 04-04-2024 ambulatory CHARISSA BLAIR [facility] Start: 03-15-2024 End: 03-15-2024 Telephone encounter Nagi Plata PT Work Phone: [facility] Start: 02-17-2024 End: 02-17-2024 Office outpatient visit 15 minutes Alma Mcclendon PA Work Phone: [facility] Comment on above: Acute pharyngitis, u nspecified etiology (Primary Dx) Start: 02-17-2024 End: 02-17-2024 ambulatory ALMA MCCLENDON Not Available Start: 02-07-2024 End: 02-07-2024 ambulatory Mac SANTIAGO Facility:[facility] Start: 02-07-2024 End: 02-07-2024 Patient encounter procedure Mac SANTIAGO [facility] Start: 01-27-2024 End: 01-27-2024 ambulatory CHARISSA [...] PLATA Not Available Start: 08-09-2023 Bamboo flowsheet Jeanna Don ht RESIDENT PHYSICIAN IN RADIOLOGY Work Phone: [facility] Start: 08-09-2023 Bamboo flowsheet Jeanna Don ht RESIDENT PHYSICIAN IN RADIOLOGY Work Phone: [facility] Start: 08-09-2023 End: 08-09-2023 Postop follow up visit related to original px Jose Hernández LUGGAGE REPAIRER Work Phone: [facility] Comment on above: 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; Status post right hip replacement Start: 08-09-2023 End: 08-09-2023 ambulatory Jeanna Mendiola RESIDENT PHYSICIAN IN RADIOLOGY Work Phone: [facility] Comment on above: Right hip pain (Prim billie Dx); Status post total hip replacement, right; Arthritis of right hip Start: 08-06-2023 End: 08-06-2023 ambulatory Jeanna Mendiola RESIDENT PHYSICIAN IN RADIOLOGY Work Phone: [facility] Comment on above: Right hip pain (Prim billie Dx); Status post total hip replacement, right; Arthritis of right hip Start: 08-02-2023 Bamboo flowsheet Jeanna Don ht RESIDENT PHYSICIAN IN RADIOLOGY Work Phone: [facility] Start: 08-02-2023 Bamboo flowsheet Jeanna Don ht RESIDENT PHYSICIAN IN RADIOLOGY Work Phone: [facility] Start: 08-02-2023 End: 08-02-2023 ambulatory Jeanna Mendiola RESIDENT PHYSICIAN IN RADIOLOGY Work Phone: [facility] Comment on above: Right hip pain (Prim billie Dx); Status post total hip replacement, right; Arthritis of right hip Start: 07-29-2023 End: 07-29-2023 ambulatory Nagi Plata PT Work Phone: [facility] Comment on above: Right hip pain (Prim billie Dx); Status post total hip replacement, right Start: 07-08-2023 End: 07-08-2023 ambulatory DEVIN SAUL [facility] Start: 07-07-2023 End: 07-08-2023 ambulatory [facility] Start: 07-07-2023 End: 07-07-2023 ambulatory [facility] Start: 07-05-2023 End: 07-05-2023 ambulatory [facility] Start: 07-05-2023 Encounter for other preprocedural examination [facility] Start: 04-13-2023 End: 04-13-2023 ambulatory LAILA LEWIS Facility:[facility] Start: 04-13-2023 End: 04-13-2023 Patient encounter procedure Laila Lewis PA-C Work Phone: [facility] [place] [facility] Comment on above: Spinal stenosis, lum bar region with neurogenic claudication (Primary Dx); Bilateral hip joint arthritis Start: 01-28-2023 Chart abstracting Camron iMx MD Work Phone: Neurology Start: 12-17-2022 End: 12-17-2022 Patient encounter procedure II Javad Donato Work Phone: [facility] Work Phone: Start: 12-17-2022 End: 12-17-2022 ambulatory II Javad Donato Work Phone: [facility] Work Phone: Start: 12-17-2022 Encounter for other specified special examinations Erica Xiong [facility] Start: 12-17-2022 Office outpatient ne w 45 minutes Erica Xiong [facility] Start: 11-24-2022 End: 11-25-2022 ambulatory NARENDRANATH LAKSHMIPATHY . Facility: Start: 11-13-2022 End: 11-14-2022 ambulatory NARENDRANATH LAKSHMIPATHY . Facility: Start: 11-10-2022 End: 11-11-2022 ambulatory NARENDRANATH LAKSHMIPATHY . Facility:[facility] Start: 10-08-2022 End: 10-09-2022 ambulatory NARENDRANATH LAKSHMIPATHY . Facility:[facility] Start: 09-10-2022 End: 09-11-[address] ANTIONE HAWTHORNE . Facility:[facility] Start: 08-13-2022 Encounter for preprocedural cardiovascular examination DR ANTIONE HAWTHORNE . [facility] Start: 08-11-2022 End: 08-11-[address] [...] encounter procedure Mac SANTIAGO [facility] Start: 05-19-2022 End: 05-20-[address] ANTIONE HAWTHORNE . Facility:[facility] Start: 05-05-2022 End: 05-05-[address] ANTIONE HAWTHORNE . Facility:[facility] Start: 04-28-2022 End: 04-29-[address] ANTIONE HAWTHORNE . Facility:[facility] Start: 04-27-2022 End: 05-14-[address] JAVAD DONATO Facility:[facility] Start: 02-16-2022 End: 02-16-2022 Patient encounter procedure Mac SANTIAGO [facility] Procedures Date Procedure Procedure Detail Performing Clinician Start: 06-12-2024 Radex hip unilateral with pelvis 2-3 views Jose Hernández LUGGAGE REPAIRER Work Phone: Start: 04-06-2024 Radex hip unilateral with pelvis 2-3 views Charissa Rose Rossy STEWARD Work Phone: Start: 08-09-2023 Radex hip unilateral with pelvis 2-3 views Jose Hernández LUGGAGE REPAIRER Work Phone: Start: 12-17-2022 X-ray of lumbar spin e, six views including bending views II Javad Tanmay Work Phone: Start: 04-22-2021 Urodynamic studies Lula SANTIAGO Start: 11-26-2020 Cystoscopy Mac KAPADIA Start: [...] Td Vaccines (2 - Td or Tdap) [facility] Start: 07-12-2027 Screening for malign ant neoplasm of colon [facility] Start: 06-14-2025 Medicare Annual Wellness (AWV) Medicare Annual Wellness (AWV) [facility] Start: 04-04-2025 Adult BMI Screening [facility] Start: 04-04-2025 Tobacco Screening Tobacco Screening [facility] Start: 07-31-2024 End: 07-31-2024 Patient encounter procedure 07/31/2024 8:00 AM EST Office Visit [facility] [address] [place] [phone] Jose Hernández, LUGGAGE REPAIRER [address] [place] [address] [facility] Start: 07-21-2024 End: 07-21-2024 ambulatory 07/21/2024 7:30 AM EST Treatment [facility] [address] [place] [phone] Jeanna Mendiola, RESIDENT PHYSICIAN IN RADIOLOGY [address] [place] [address] [facility] Start: 07-14-2024 End: 07-14-2024 ambulatory [facility] Start: 07-12-2024 End: 07-12-2024 ambulatory [facility] Comment on above: Arrived Start: 07-07-2024 End: 07-07-2024 ambulatory 07/07/2024 7:30 AM EST Treatment [facility] [address] [place] [phone] Jeanna Mendiola, RESIDENT PHYSICIAN IN RADIOLOGY [address] [place] [address] [facility] Start: 07-06-2024 End: 07-06-2024 Professional / ancillary services management 07/06/2024 8:00 AM EST Ancillary Procedure [facility] [address] [place] [phone] [facility] Start: 07-05-2024 End: 07-05-2024 ambulatory 07/05/2024 7:30 AM EST Treatment [facility] [address] [place] [phone] Jeanna Mendiola, RESIDENT PHYSICIAN IN RADIOLOGY [address] [place] [address] [facility] Start: 07-03-2024 End: 07-03-2024 Patient encounter procedure [facility] Comment on above: Arrived Start: 06-30-2024 End: 06-30-2024 ambulatory [facility] Comment on above: Arrived Start: 06-29-2024 End: 06-29-2024 ambulatory 06/29/2024 7:30 AM EST Treatment [facility] [address] [place] [phone] Kailey Goldman, RESIDENT PHYSICIAN IN RADIOLOGY [facility] Start: 06-26-2024 End: 06-26-2024 ambulatory [facility] Comment on above: Arrived Start: 06-22-2024 End: 06-22-2024 Professional / ancillary services management 06/22/2024 3:15 PM EST Ancillary Procedure [facility] [address] [place] [address] [facility] Start: 06-20-2024 End: 06-20-2024 ambulatory 06/20/2024 7:00 AM EST Evaluation [facility] [address] [place] [address] Nagi Plata, PT [address] [place] [address] [facility] Start: 06-14-2024 End: 06-14-2025 CBC panel - Blood by Automated count CBC Lab Routine Benign essential hypertension (CMS/HCC) IGT (impaired glucose tolerance) Atherosclerosis of aorta (CMS/HCC) Class 2 severe obesity with serious comorbidity and body mass index (BMI) of 37.0 to 37.9 in adult, unspecified obesity type (CMS/HCC) Expected: 06/14/2024 (Approximate), Expires: 06/14/2025 [facility] Comment on above: Expected: 06/14/2024 (Approximate), Expires: [...] type (CMS/HCC) Expected: 06/14/2024 (Approximate), Expires: 06/14/2025 [facility] Comment on above: Expected: 06/14/2024 (Approximate), Expires: 06/14/2025 Start: 06-14-2024 End: 06-14-2025 Hemoglobin A1c/Hemoglobin.total in Blood Hemoglobin A1c Lab Routine Benign essential hypertension (CMS/HCC) IGT (impaired glucose tolerance) Atherosclerosis of aorta (CMS/HCC) Class 2 severe obesity with serious comorbidity and body mass index (BMI) of 37.0 to 37.9 in adult, unspecified obesity type (CMS/HCC) Expected: 06/14/2024 (Approximate), Expires: 06/14/2025 [facility] Comment on above: Expected: 06/14/2024 (Approximate), Expires: 06/14/2025 Start: 06-14-2024 End: 06-14-2025 Lipid 1996 panel - Serum or Plasma Lipid panel Lab Routine Benign essential hypertension (CMS/HCC) IGT (impaired glucose tolerance) Atherosclerosis of aorta (CMS/HCC) Class 2 severe obesity with serious comorbidity and body mass index (BMI) of 37.0 to 37.9 in adult, unspecified obesity type (CMS/HCC) Expected: 06/14/2024 (Approximate), Expires: 06/14/2025 [facility] Comment on above: Expected: 06/14/2024 (Approximate), Expires: 06/14/2025 Start: 06-14-2024 End: 06-14-2025 Prostate specific Ag [Mass/volume] in Serum or Plasma PSA Lab Routine Screening for prostate cancer Expected: 06/14/2024 (Approximate), Expires: 06/14/2025 [facility] Work Phone: Comment on above: Expected: 06/14/2024 (Approximate), Expires: 06/14/2025 Start: 06-14-2024 End: 06-14-2025 US.doppler Lower extremity artery - bilateral Vascular US lower extremity arterial duplex bilateral Imaging Routine Claudication (CMS/HCC) Expected: 06/14/2024, Expires: 06/14/2025 [facility] Comment [...] Visit [facility] [address] [place] [address] Charissa Blair, DO [address] [place] [address] [facility] Start: 05-09-2024 End: 05-09-2024 Patient encounter procedure 05/09/2024 10:30 AM EST Office Visit [facility] [address] [place] [address] Charissa Blair, DO [address] [place] [address] [facility] Start: 05-03-2024 End: 05-03-2024 Admission to same day surgery center 05/03/2024 7:45 AM EST - 05/03/2024 10:00 AM EST Surgery [facility] Surgery [address] [place] [address] Charissa Blair, DO [address] [place] [address] REPLACEMENT TOTAL JOINT HIP [12178 (CPT )] [facility] Surgery Comment on above: REPLACEMENT TOTAL BEKA INT HIP [34000 (CPT )] Start: 05-03-2024 End: 05-03-2024 Arthrp acetblr/prox fem prostc agrft/algrft REPLACEMENT TOTAL JOINT HIP left hip degenerative joint disease 05/03/2024 7:45 AM EST [facility] Start: 05-03-2024 Subsequent hospital visit by physician 05/03/2024 7:45 AM EST Hospital Encounter [facility] [address] [place] [phone] Charissa Blair, DO [address] [facility] [address] [place] [address] [facility] Start: 05-03-2024 End: 05-03-2024 Patient encounter procedure 05/03/2024 7:30 AM EST Procedure Visit [facility] Charissa Blair, DO [address] [facility] [address] [place] [address] [facility] Start: 04-24-2024 End: 03-06-2025 Crossmatch RBC Crossmatch RBC Blood Bank Routine Preop examination Hypertension, unspecified type Expected: 04/24/2024, Expires: 03/06/2025 [facility] on above: Expected: 04/24/2024 , Expires: 03/06/2025 Start: 04-24-2024 End: 03-06-2025 Type and screen(includes indirect phill) Type and screen(includes indirect phill) Blood Bank Routine Preop examination Hypertension, unspecified type Expected: 04/24/2024, Expires: 03/06/2025 [facility] Work Phone: Comment on above: Expected: 04/24/2024 , Expires: 03/06/2025 Start: 04-17-2024 End: 04-17-2024 Patient encounter procedure [facility] Comment on above: Arrived Start: 04-06-2024 End: 04-06-2024 Patient encounter procedure [facility] Comment on above: Left hip pain; Arthritis of left hip Start: 03-08-2024 End: 03-08-2024 Patient encounter procedure 03/08/2024 11:15 AM EDT Office Visit [facility] [address] [facility] [address] [place], [place] [phone] Javad Donato MD [address] [facility] [address] [place] [address] [facility] Start: 02-27-2024 Influenza vaccination P [facility] Start: 09-20-2023 End: 09-20-2023 Patient encounter procedure 09/20/2023 10:30 AM EDT Office Visit [facility] [address] [place] [phone] Jose Hernández, LUGGAGE REPAIRER [address] [place] [address] [facility] Start: 08-27-2023 End: 08-27-2023 ambulatory 08/27/2023 9:30 AM EST Treatment [facility] [address] [place] [phone] Nagi Plata, PT [address] [place] [address] [facility] Start: 08-23-2023 End: 08-23-2023 ambulatory 08/23/2023 9:30 AM EST Treatment [facility] [address] [place] [phone] Jeanna Mendiola, RESIDENT PHYSICIAN IN RADIOLOGY [address] [place] [address] [facility] Start: 08-20-2023 End: 08-20-2023 ambulatory 08/20/2023 9:30 AM EST Treatment [facility] [address] [place] [phone] Jeanan Mendiola, RESIDENT PHYSICIAN IN RADIOLOGY [address] [place] [address] [facility] Start: 08-16-2023 End: 08-16-2023 ambulatory 08/16/2023 9:30 AM EST Treatment [facility] [address] [place] [phone] Jeanna Mendiola, RESIDENT PHYSICIAN IN RADIOLOGY [address] [place] [address] [facility] Start: 08-13-2023 End: 08-13-2023 ambulatory 08/13/2023 9:30 AM EST Treatment [facility] [address] [place] [phone] Nagi Plata, PT [address] [place] [address] [facility] Start: 08-09-2023 End: 08-09-2023 Patient encounter procedure 08/09/2023 1:00 PM EST Office Visit [facility] [address] [place] [phone] Jose Hernández, LUGGAGE REPAIRER [address] [place] [address] [facility] Start: 08-09-2023 End: 08-09-2023 ambulatory [facility] Comment on above: Arrived Start: 08-06-2023 End: 08-06-2023 ambulatory 08/06/2023 9:30 AM EST Treatment [facility] [address] [place] [phone] Jeanna Mendiola, RESIDENT PHYSICIAN IN RADIOLOGY [address] [place] [address] [facility] Start: 08-02-2023 End: 08-02-2023 ambulatory [facility] Comment on above: Arrived Start: 02-26-2023 Influenza vaccination C [facility] Start: 06-28-2022 ADVANCE DIRECTIVE DISCUSSION ADVANCE DIRECTIVE DISCUSSION [facility] Start: 06-28-2022 DEPRESSION ASSESSMENT DEPRESSION ASS ESSMENT [facility] Start: 2019 Abdominal aortic aneurysm screening Abdominal Aortic Aneurysm (AAA) Screen [facility] Start: 2019 Fall Risk Screening Fall Risk Screen ing [facility] Start: 2019 PNEUMOCOCCAL: 65+ (1 - PCV) PNEUMOCOCCAL: 65+ (1 - PCV) [facility] Start: 07-08-2015 Administration of varicella zoster vaccine Zoster (Shingles) Vaccine (2 of 3) [facility] Start: 07-08-2015 Shingrix Vaccine (2 of 3) Shingrix Vaccine (2 of 3) [facility] Start: 2014 RSV Vaccine (1 - 1-d ose 60+ series) RSV Vaccine (1 - 1-dose 60+ series) [facility] [facility] Start: 01-02-2004 SHINGRIX VACCINE (1 of 2) SHINGRIX VACCINE (1 of 2) [facility] Start: 1999 COLOGUARD (FIT-DNA) COLOGUARD (FIT-D NA) [facility] Start: 1999 Colonoscopy COLONOSCOPY [facility] Start: 1999 COLORECTAL CANCER SCREENING COLORECTAL CANCER SCREENING [facility] Start: [address] COLONOGRAPHY [facility] Start: 1999 DIABETES SCREEN DIABETES SCREEN [facility] Start: 1999 Diabetes Screening Diabetes Screenin g [facility] Start: 1999 FECAL OCCULT BLOOD FECAL OCCULT BLOO D [facility] Start: 1999 SIGMOIDOSCOPY SIGMOIDOSCOPY [facility] Start: 1989 Lipid 1996 panel - Serum or Plasma Lipid Screening [facility] Start: 1989 LIPID SCREEN LIPID SCREEN [facility] Start: 1973 Urine microalbumin profile [facility] Start: 01-02-1972 Adult BMI Follow Up Plan Adult BMI Follow Up Plan [facility] Start: 01-02-1972 HEPATITIS C SCREENING HEPATITIS C SC REENING [facility] Start: 1966 Depression Screening Depression Scre ening [facility] Start: 1954 COVID-19 VACCINE (#1) COVID-19 VACCI NE (#1) [facility] Start: 1954 Abdominal Aortic Aneurysm Screening Abdominal Aortic Aneurysm Screening [facility] Start: 1954 Medicare Annual Wellness Visit Medicare Annual Wellness Visit [facility] Start: 1954 Screening for malign ant neoplasm of colon [facility] End: 05-12-2024 XR HIP BILATERAL 5V PEL/AP/LAT EACH HIP XR HIP BILATERAL 5V PEL/AP/LAT EACH HIP Radiology Routine Bilateral hip joint arthritis 1 Occurrences starting 04/13/2023 until 05/12/2024 [facility] Work Phone: Comment on above: 1 Occurrences starti ng 04/13/2023 until 05/12/2024 [facility] Immunizations Immunization Date Immunization Notes Care Provider Fa noreen 06-14-2024 Influenza, High-dose Seasonal, Quadrivalent, Preservative Free Javad Donato MD Work Phone: [facility] 05-18-2023 RSV, recombinant, protein subunit RSVpreF, adjuvant reconstitu, 120mcg/0.5mL, PF (Arexvy) Nagi Narendra PT Work Phone: [facility] Work Phone: 05-18-2023 tetanus toxoid, redu sri diphtheria toxoid, and acellular pertussis vaccine, adsorbed Nagi Narendra PT Work Phone: [facility] 05-17-2023 Influenza, High-dose Seasonal, Quadrivalent, Preservative Free Nagi Narendra PT Work Phone: [facility] 05-17-2023 influenza virus vaccine, unspecified formulation Nagi Narendra PT Work Phone: [facility] 04-03-2022 influenza, high dose seasonal, preservative-free Nagi Narendra PT Work Phone: [facility] 04-03-2022 Influenza, High-dose Seasonal, Quadrivalent, Preservative Free Nagi Narendra PT Work Phone: [facility] 04-03-2022 influenza virus vaccine, unspecified formulation Laila Lewis PA-C Work Phone: [facility] 05-21-2020 influenza virus vaccine, unspecified formulation Macmichelle SANTIAGO [facility] 05-21-2020 influenza, injectabl e, quadrivalent, contains preservative Nagi Narendra PT Work Phone: [facility] 05-21-2020 pneumococcal conjuga te vaccine, 13 valent Nagi Narendra PT Work Phone: [facility] 04-10-2020 influenza virus vaccine, unspecified formulation Mac SANTIAGO [facility] 05-03-2019 influenza, injectabl e, madin sancho canine kidney, preservative free Nagi Narendra PT Work Phone: [facility] 05-03-2019 pneumococcal polysaccharide vaccine, 23 valent Nagi Narendra PT Work Phone: [facility] 05-02-2018 influenza virus vaccine, unspecified formulation Mac SANTIAGO [facility] 05-02-2018 seasonal influenza, intradermal, preservative free Nagi Narendra PT Work Phone: [facility] 06-07-2017 influenza virus vaccine, unspecified formulation Macmichelle SANTIAGO [facility] 06-07-2017 influenza, injectabl e, quadrivalent, contains preservative Nagi Narendra PT Work Phone: [facility] 05-13-2015 zoster vaccine, live Nagi Sp collado PT Work Phone: [facility] 05-13-2015 zoster vaccine, unspecified formulation Pmh 1 [facility] NEGATED: Highlighted row has not occurred!08-18-2021 SARS-CoV-2 (COVID-19) Ad26 vaccine, recombinant Mac SANTIAGO [facility] Payers Date Payer Category Payer Self-pay 2021 Private Health Insurance [employer] [id number] 2019 Unknown [id number]. [id number] 2018 Medicare [id number] [id number]. [id number] 1959 Medicare [id number] 1959 Unknown [id number] 1954 Unknown [id number] 2.16.840.1.398158.3.579.2. 593 1954 Unknown [id number] 2.16.840.1.660128.3.579.2. 593 1954 Unknown [id number] 2.16.840.1.107189.3.579.2. 593 1954 Unknown [id number] 2.16.840.1.633184.3.579.2. 593 1954 Unknown [id number] 2.16.840.1.538057.3.579.2. 593 1954 Unknown [id number] 2.16.840.1.364397.3.579.2. 593 1954 Unknown [id number] 2.16.840.1.284269.3.579.2. 593 1954 Unknown [id number] 2.16.840.1.220032.3.579.2. 593 1954 Unknown [id number] 2.16.840.1.930522.3.579.2. 593 1954 Unknown [id number] 2.16.840.1.244796.3.579.2. 593 1954 Unknown [id number] 2.16.840.1.101931.3.579.2. 593 1954 Unknown [id number] 2.16.840.1.084709.3.579.2. 593 1954 Unknown [id number] 2.840.1.451733.3.579.2. 593 1954 Unknown [id number] 2.840.1.222152.3.579.2. 593 1954 Unknown [id number] 2.840.1.800327.3.579.2. 593 1954 Unknown [id number] 2.16840.1.366777.3.579.2. 727 1954 Unknown [id number] 2.840.1.821446.3.579.2. 727 1954 Unknown [id number] 2.840.1.894852.3.579.2. 128 1954 Unknown [id number] 2.840.1.912384.3.579.2. 128 1954 Unknown [id number] 2.16840.1.944973.3.579.2. 128 1954 Unknown [id number] 2.16840.1.227828.3.579.2. 128 1954 Unknown [id number] 2.16840.1.128627.3.579.2. 1286 1954 Unknown [id number] 2.16840.1.926394.3.579.2. 128 1954 Unknown [id number] 2.16.840.1.251139.3.579.2. 1285 1954 Unknown [id number] 2.16.840.1.619765.3.579.2. 1285 1954 Unknown [id number] 2.16.840.1.823961.3.579.2. 1285 1954 Unknown [id number] 2.16.840.1.033529.3.579.2. 128 1954 Unknown [id number] 2.16840.1.496459.3.579.2. 1258 1954 Unknown [id number] 2.16840.1.717726.3.579.2. 1258 1954 Unknown [id number] 2.840.1.993810.3.579.2. 1258 1954 Unknown [id number] 2.840.1.075225.3.579.2. 1258 1954 Unknown [id number] 2.840.1.442592.3.579.2. 1258 1954 Unknown [id number] 2.16.840.1.285114.3.579.2. 1258 1954 Unknown [id number] 2.840.1.356119.3.579.2. 1258 1954 Unknown [id number] 2.16.840.1.000920.3.579.2. 1258 1954 Unknown [id number] 2.16840.1.808819.3.579.2. 1258 1954 Unknown [id number] 2.16840.1.152196.3.579.2. 1258 1954 Unknown [id number] 2.16840.1.991531.3.579.2. 1258 1954 Unknown [id number] 2.16.840.1.040884.3.579.2. 1258 1954 Unknown [id number] 2.16.840.1.887117.3.579.2. 1258 1954 Unknown [id number] 2.16.840.1.797071.3.579.2. 1258 1954 Unknown [id number] 2.16.840.1.663297.3.579.2. 1258 1954 Unknown [id number] 2.840.1.664002.3.579.2. 1258 1954 Unknown [id number] 2.840.1.595662.3.579.2. 1258 1954 Unknown [id number] 2.840.1.708072.3.579.2. 1258 1954 Unknown [id number] 2.840.1.431640.3.579.2. 1258 1954 Unknown [id number] 2.840.1.906498.3.579.2. 1258 1954 Unknown [id number] 2.840.1.505118.3.579.2. 1258 1954 Unknown [id number] 2.840.1.797106.3.579.2. 1258 1954 Unknown [id number] 2.840.1.107235.3.579.2. 1258 1954 Unknown [id number] 2.16.840.1.530545.3.579.2. 1258 1954 Unknown [id number] 2.16.840.1.662536.3.579.2. 1258 1954 Unknown [id number] 2.16840.1.521341.3.579.2. 1258 1954 Unknown [id number] 2.16.840.1.017858.3.579.2. 1258 1954 Unknown [id number] 2.16.840.1.982448.3.579.2. 1258 1954 Unknown [id number] 2.16.840.1.604216.3.579.2. 1258 1954 Unknown [id number] 2.16.840.1.175848.3.579.2. 1258 1954 Unknown [id number] 2.16.840.1.518304.3.579.2. 1258 1954 Unknown [id number] 2.16.840.1.008828.3.579.2. 1258 1954 Unknown [id number] 2.16.840.1.744824.3.579.2. 1258 1954 Unknown [id number] 2.16.840.1.708006.3.579.2. 1258 1954 Unknown [id number] 2.16.840.1.329383.3.579.2. 1258 1954 Unknown [id number] 2.16.840.1.265838.3.579.2. 1258 1954 Unknown [id number] 2.16.840.1.100994.3.579.2. 1258 1954 Unknown [id number] 2.16.840.1.435170.3.579.2. 1258 Unknown [id number] 2.16.840.1.026637.3.579.2. 531 Social History Date Type Detail Facility Start: 05-05-2021 End: 02-17-2024 Ex-smoker (finding) [facility] Start: 04-15-2023 End: 05-10-2023 Male [facility] Start: 1955 Sex Assigned At Male [facility] Tobacco smoking stat NHIS Tobacco smoking consumption unknown [facility] Start: 02-02-2023 Gender identity Identifies as male gender (finding) [facility] Start: 02-02-2023 Sexual orientation Heterosexual (finding) [facility] Start: 06-28-1967 End: 09-27-1975 History of tobacco use Current smoker [facility] Work Phone: Start: 06-28-1967 End: 09-27-1975 History of tobacco use Cigarette Smoker [facility] Work Phone: Start: 04-15-2023 End: 05-10-2023 History of Social function [facility] Adult Depression Screening Assessment [address] [facility] Start: 01-11-2023 End: 02-17-2024 Tobacco use and exposure Smokeless tobacco non-user [facility] Start: 07-12-2023 End: 06-14-2024 Alcohol intake Current drinker of alcohol (finding) [facility] Within the last year , have you been afraid of your partner or ex-partner? No [facility] Do you belong to any clubs or organizations such as sikh groups, unions, fraternal or athletic groups, or [...] Start: 05-28-2023 Tobacco Comment 1976 quit smoking [facility] Start: 04-04-2024 Alcohol Comment rare [facility] Start: 02-17-[address] [facility] Start: 02-17-2024 Alcohol Comment Social drinker with occasional drink at home. [facility] Medical Equipment Procedure Code Equipment Code Equipment Origin al Text Equipment Identifier Dates Shell Actb 56mm Hip 4 Hl Clr Cd [place] G7 F Hmsphr - Sna - [id number] Start: 07-07-2023 Liner Actb 36mm F Vivacit-E Lum G7 Hip Strl Lf - [id number] Start: 07-07-2023 Stem Fem 129d 4 06/10 45.5mm Fitmore Protasul-64 Hip Rg - [id number] Start: 07-07-2023 Maryann Biomet Femoral Head 36mm [id number] Start: 07-07-2023 Screw Bn 30mm 6. [address] Actb Seven Trlg Strl Rpl [id number] 29 - [id number] Start: 07-07-2023 Screw Bn 30mm 6. [address] Actb Seven Trlg Strl Rpl [id number] 29 - [id number] Start: 07-07-2023 Screw Bn 30mm 6. [address] St Actb Seven Trlg Strl Rpl [id number] 29 - [id number] Start: 07-07-2023 Functional Status Date Assessment Result Facility 02-07-2024 Functional Status N/A [facility] 06-01-2022 Functional Status N/A [facility] 02-16-2022 N/A [facility] Clinical Notes 02-16-2022 to 07-03-2024 Jose Hernández NP - 07/03/2024 10:30 AM Jose Plata, PT - 06/20/2024 7:00 AM Lukas Donato MD - 06/14/2024 9:30 AM Lisa Hernández NP - 06/12/2024 10:30 AM ESTPatient Instructions Note Date & Type Note Facility 07-03-2024 History of Present illness Narrative Images from the original note were not included. HISTORY OF PRESENT ILLNESS: POST OP PT Lawson Vela is an 69 y.o. @ male. (EST PT) S/P (L) NASH 05/03/24 (8WKS 5DAYS) XRAYS 06/12/24 IN [facility] DOING WELL- CONTINUES WITH PT, WANTS TO START AQUATIC THERAPY AT [facility]. USES CANE PRN. GOOD ROM/STRENGTH- +HYDROCODONE PER PCP FOR LBP, HAVING JEN TOMORROW. PT IS VERY PLEASED WITH OUTCOME. REVIEW OF SYSTEMS: General: Denies fever, fatigue [...] present Sensation: normal Pulse: present Comments: Small suture knot removed from proximal incision. No erythema or drainage noted. Procedures No orders of the defined types were placed in this encounter. ASSESSMENT: ICD-10-CM 1. S/P total left hip arthroplasty Z96.642 PLAN: Patient is doing well overall and states that PT has helped with his gait. He is allowed to start pool therapy but should call with any worsening symptoms. Small suture knot removed in office today with no drainage or signs of infection/erythema. He will follow up in 1 month for RCK. Questions answered in laymen terms at the bedside. The diagnosis, home exercise plan and any ongoing restrictions/ recommendations reviewed. If unable to be reached in office, I recommend evaluation at nearest Emergency Room if any symptoms worsened or new symptoms develop for requiring urgent evaluation. documented in this encounter [facility] 06-20-2024 History of Present illness Narrative Images from the original note were not included. Physical Therapy Physical Therapy Evaluation Visit Patient Name: Lawson Vela Today's Date: 06/20/2024 Encounter Diagnoses Name Primary? Left hip pain Yes S/P total left hip arthroplasty Visit number: 1 Kristy Vela 69 y.o. male presents to physical therapy w/ chief c/o L hip pain, weakness, stiffness Mechanism of Onset: s/p L NASH 05/03/24 Current deficits: pain, decreased ROM/flexibility, weakness Pain: 07/07 amb into session just sore and stiff moslty Location: ant, lat hip at times but L knee more of an issue then the hip at this point Aggravating Factors: functional mobility, prolonged standing and walking, moving wrong in bed Relieving factors: rest Precautions: standard hip precautions Objective Gait: mod ind with st cane, compensated trendelenburg trent worse on L, decreased step height and length trent L hip PROM: to 90 degrees flex, ext mod limited, abd to 20 Severely decreased flexibility hip flexors, hamstrings, mod hip add'rs L hip strength 3+5 flex, 3/5 abd, 4/5 ext min pain with flex and abd noted. Treatment Interventions Education: HEP education with demonstration, Educated on Eval Findings and POC with handout and review, precautions x 5 min self care also issued blue tband Manual Therapy: PROM, gentle stretching, massage lateral hip x 8 min total Therapeutic Exercise: per BALDO grid ROM, flexibility, strength x 25 min sup 30 total demo and verbal cues for correct technique especially hip abd limiting hip flexor compensation. Gait Training: prn for improved quality Modalities: CP prn Assessment/Plan L hip pain, weakness, causing increased difficulty with ADLs/self care, impaired gait s/p L NASH 05/03/24 Patient Goals Short Term Goal #1: pt will be ind with HEP for [facility] Goal #2: pt will demo normalized quality of gait, non-antalgic like including at least up steps reciprical pattern. Pt will benefit from skilled PT to address the above impairments for 1-3x/week for 4-6 weeks pending pt needs/progress. Pt may opt for HEP and pool once cleared by Dr. Perez hereby deem this POC medically necessary. Please sign below. Date: documented in this encounter [facility] 06-14-2024 History of Present illness Narrative Images [...] mg by mouth in the morning. HYDROcodone-acetaminophen ([place]) 5-325 MG tablet Take 1 tablet by [...] Do you have a medical power of attorney general?: (Patient-Rptd) (P) No Objective : BP 126/70 [...] a living will and durable power of attorney general for healthcare. We discussed telling keith people about their advance directives such as close family members, and requested a copy to scan into the patient's EHR. An advance directive packet was offered to the patient. Assessment/Plan Diagnoses and all orders for this visit: Routine general medical examination at health care facility ACP (advance care planning) Benign essential hypertension (CMS/HCC) - Lipid panel; Future - Comprehensive metabolic panel; Future - CBC; Future - Hemoglobin A1c; Future IGT (impaired glucose tolerance) - Lipid panel; Future - Comprehensive metabolic panel; Future - CBC; Future - Hemoglobin A1c; Future Atherosclerosis of aorta (CMS/HCC) - Lipid panel; Future - Comprehensive [...] need - Influenza, high-dose seasonal, quadrivalent, PF (DBK602) (Fluzone High Dose Quad North 0.7mL dose) Herniated lumbar disc without myelopathy - HYDROcodone-acetaminophen ([place]) 5-325 MG tablet; Take 1 tablet by mouth every 6 (six) hours if needed for severe pain Claudication (CMS/HCC) - Vascular US lower extremity arterial duplex bilateral; Future Orders Placed This Encounter Procedures Influenza, high-dose seasonal, quadrivalent, PF (NDS078) (Fluzone High Dose Quad North 0.7mL dose) [...] June 14, 2024 documented in this encounter [facility] 06-12-2024 History of Present illness Narrative Images [...] Unremarkable left total hip arthroplasty. Jose Hernández APRN-ORAL PATHOLOGIST XR hip left 2 or 3 views [...] Unremarkable left total hip arthroplasty. Jose Hernández APRN-ORAL PATHOLOGIST Procedures Orders Placed This Encounter Procedures XR [...] requiring urgent evaluation. documented in this encounter [facility] 05-16-2024 History of Present illness Narrative Images [...] mg by mouth in the morning. HYDROcodone-acetaminophen ([place]) 5-325 MG tablet Take 1 tablet by [...] if he desires a referral to another credit collection specialist we would be happy to make referral, he states he would like to continue his care here. Boni Blair D.O. documented in this encounter [facility] 05-09-2024 History of Present illness Narrative Images [...] mg by mouth in the morning. HYDROcodone-acetaminophen ([place]) 5-325 MG tablet Take 1 tablet by [...] wrist GERD (gastroesophageal reflux disease) HTN (hypertension) ([facility]) Lumbosacral disc disease Osteoarthritis ALLERGIES: Allergies Allergen [...] Blair/demi Blair D.O. documented in this encounter [facility] 05-08-2024 Telephone encounter Note Post op pain rx refill. PDMP reviewed [facility] 05-08-2024 Miscellaneous Notes Post op pain rx refill. PDMP reviewed documented in this encounter [facility] 05-04-2024 Telephone encounter Note He already discharged and PT is meeting with him today. [facility] 05-04-2024 Miscellaneous Notes He already discharged and PT is meeting with him today. Maxine myrick that patient is being discharged today from his LT Hip replacement and would like us to call patient to let him know what he needs to do. Patient's phone number is [phone]. documented in this encounter [facility] 05-04-2024 Telephone encounter Note Maxine myrick that patient is being discharged today from his LT Hip replacement and would like us to call patient to let him know what he needs to do. Patient's phone number is [phone]. [facility] 05-02-2024 Telephone encounter Note Post op pain rx. PDMP reviewed [facility] 05-02-2024 Miscellaneous Notes Post op pain rx. PDMP reviewed documented in this encounter [facility] 04-17-2024 History of Present illness Narrative Images from the original note were not included. HPI surgical clearance Additional comments: Pt sched 05/03/24 for left hip replacement with Dr Blair at [facility] PAT completed Last edited by France Farah LPN on 04/17/2024 1:48 PM. Subjective Patient ID: Lawson Vela is a 69 y.o. male who presents for surgical clearance (Pt sched 05/03/24 for left hip replacement with Dr Blair at [facility]/PAT completed). Pt has had left hip pain [...] mg by mouth in the morning. HYDROcodone-acetaminophen ([place]) 5-325 MG tablet Take 1 tablet by [...] with food 4 tablet 3 [DISCONTINUED] HYDROcodone-acetaminophen ([place]) 5-325 MG tablet No current facility-administered medications [...] As Previously Scheduled. documented in this encounter [facility] 04-12-2024 Telephone encounter Note OARRS reviewed, Rx sent into patient's pharmacy. [facility] 04-12-2024 Miscellaneous Notes OARRS reviewed, Rx sent into patient's pharmacy. Patient comment: Getting prepared for future surgery. documented in this encounter [facility] 04-12-2024 Telephone encounter Note Patient comment: Getting prepared for future surgery. [facility] 04-06-2024 History of Present illness Narrative HISTORY [...] tx: cane, norco, ice, heat, topicals, XR [place] [facility] 11/01/23, hot tub, PREHAB/HEP Currently seeing pain management, Dr Ludwig [facility] for LBP MEDICATION: Current Outpatient Medications [...] mg by mouth in the morning. HYDROcodone-acetaminophen ([place]) 5-325 MG tablet irbesartan-hydroCHLOROthiazide (Avalide) 150-12.5 MG [...] wrist GERD (gastroesophageal reflux disease) HTN (hypertension) ([facility]) Lumbosacral disc disease Osteoarthritis ALLERGIES: Allergies Allergen [...] IMAGING: November 01, 2023 x-rays from the [place] office AP pelvis and lateral left hip demonstrate joint space narrowing left hip subchondral sclerosis and subchondral cyst formation consistent with arthritis. Presence of a right hip replacement in good position alignment. Impression: Advanced osteoarthritis left hip Amauri Andres.Galindo XR hip left 2 or 3 views Imaging Result: April 06, 2024 x-rays AP and lateral of the left hip demonstrate joint space collapse with subchondral sclerosis and osteophyte formation consistent with arthritis. Impression: Arthritis of the left hip Amauri Andres.Galindo. ASSESSMENT: ICD-10-CM 1. Left hip pain M25.552 [...] Blair/demi Blair D.O. documented in this encounter [facility] 04-04-2024 Instructions Trista Pelaez RN - 04/04/2024 [...] in at the main lobby of the [facility]- registration desk is straight ahead as soon as you walk in. Tell them you are here for surgery. 2. If you have a Living Will/Durable Power of Drawer Upfitter for Health Care that is not on [...] after you have bathed. 5. NO nail cape verdean/acrylic on at least one finger. If you are having a hand, wrist or foot surgery then all nail cape verdean and artificial/acrylic nails must be removed from [...] please call the Pread[facility] office at [phone], Mon.-Fri. 7 a.m.-3 p.m. Leave a voicemail [...] with your doctor. documented in this encounter [employer] 04-04-2024 Miscellaneous Notes Patient called and educated to watch his YOLANDA education on total hip replacement prior to his PAT appointment next week. Patient verbalized understanding. documented in this encounter [facility] 04-04-2024 Nurse Note Patient called and educated to watch his YOLANDA education on total hip replacement prior to his PAT appointment next week. Patient verbalized understanding. [facility] 03-15-2024 History of Present illness Narrative No need for Prehab appt, has walker and has recently went through NASH, spoke with pt in parking lot, reviewed precautions good understanding. documented in this encounter [facility] 02-17-2024 History of Present illness Narrative Subjective [...] wrist GERD (gastroesophageal reflux disease) HTN (hypertension) ([facility]/HCC) Lumbosacral disc disease Osteoarthritis Past Surgical History: [...] Appointment As Scheduled. documented in this encounter [facility] 02-07-2024 Hospital Discharge instructions Patient Education 02/07/2024 [...] urethra. Follow these instructions at home: Take [id number] and prescription medicines only as told by [...] provider. Document Revised: 12/31/2021 Document Reviewed: 12/31/2021 [employer] Patient Education 2022 [employer]. Follow Up Care 08/30/2023 12:37:09 With:PAMELA BAER, Mac Stephenson, URL Address: [facility] [address] [place] [address]- When: Unknown [facility] 02-07-2024 Note Patient Education Urology Benign [...] Follow these instructions at home: ? Take pstv-ljh-wvrmdih and prescription medicines only as told by [...] develop side effec (more content not included)... [facility] 08-09-2023 History of Present illness [...] develop for requiring urgent evaluation. Jose Hernández DISTRICT FIRE MANAGEMENT OFFICER-ORAL PATHOLOGIST documented in this encounter [facility] 04-13-2023 Note HNO ID: [id number] Author: Laila Lewis PA-C Service: ? Author Type: Physician Railroad Worker Type: Progress Notes Filed: 04/15/2023 1:53 PM [...] a week. Hydrocodone, Meloxicam Zanaflex, Lidocaine patches health care sanitary technician Prior to ablation symptoms on left have [...] days 2 More (more content not included)... [facility] 04-13-2023 Instructions Laila Lewis PA-C - 04/13/2023 11:08 AM EDT -Recommend seeing Ortho for hip evaluation, please send in their recommendations -Send in Pain management records, can take picture and upload on [employer]hart or fax -Once I review above, will [...] which is considered uptake). Laila Lewis PA-C [phone] documented in this encounter [facility] 04-13-2023 History of Present illness Narrative [...] a week. Hydrocodone, Meloxicam Zanaflex, Lidocaine patches health care sanitary technician Prior to ablation symptoms on left have [...] the patient MRI Lumbar: Narrative PERFORMED AT [facility] LOCATION:[facility] CLINICAL HISTORY: Low back pain extending into the right lower extremity. COMPARISON: 05/01/2022 TECHNIQUE: Multiplanar MR imaging of the lumbar spine was performed. FINDINGS: The spine is visualized from the Y89-W7-Q4 levels on the sagittal sequences, assuming a [...] narrowing. At the L5-S1 level, there is hsld-dh-cpikhlbd diffuse disc bulging and moderate hypertrophic facet changes, which results in moderate to marked neural foraminal narrowing. Procedure Note CONVERSION, GENERIC - 11/13/2022 PERFORMED AT [facility] LOCATION:[facility] CLINICAL HISTORY: Low back pain extending into the right lower extremity. COMPARISON: 05/01/2022 TECHNIQUE: Multiplanar MR imaging of the lumbar spine was performed. FINDINGS: The spine is visualized from the Y56-Z0-S1 levels on the sagittal sequences, assuming a [...] narrowing. At the L5-S1 level, there is hmmk-pw-pitmtbxm diffuse disc bulging and moderate hypertrophic facet changes, which results in moderate to marked neural foraminal narrowing. 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 Report reported and signed by James Vizcaino on 10/19/2022 1406 CONVERSION, GENERIC - 11/14/2022 PERFORMED AT [facility] LOCATION:[place] [address] EXAMINATION: XR HIPS TRENT 3_4V WO PELVIS HISTORY: Bilateral hip joint [...] records, can take picture and upload on [employer]hart or fax -Once I review above, will [...] 8:55 AM PAGER: documented in this encounter [facility] 02-12-2023 Note HNO ID: [id number] Author: Laila Lewis PA-C Service: ? Author Type: Physician Railroad Worker Type: Progress Notes Filed: 02/12/2023 12:58 PM Note Text: Per Triage: Lawson Vela is a 68 year old male that requests evaluation of lumbar spine. Per review, they have symptoms of LBP into left leg pain. Positive for numbness, difficulty walking and weakness. CMT: PT Hydrocodone health care sanitary technician Studies (Reports unless indicated) MRI Lumbar: Narrative PERFORMED AT [facility] LOCATION:[facility] CLINICAL HISTORY: Low back pain extending into the right lower extremity. COMPARISON: 05/01/2022 TECHNIQUE: Multiplanar MR imaging of the lumbar spine was performed. FINDINGS: The spine is visualized from the U44-Y6-N6 levels on the sagittal sequences, assuming a [...] narrowing. At the L5-S1 level, there is orgg-rr-evngyjfn diffuse disc bulging and moderate hypertrophic facet changes, which results in moderate to marked neural foraminal narrowing. Procedure Note CONVERSION, GENERIC - 11/13/2022 PERFORMED AT [facility] LOCATION:[facility] CLINICAL HISTORY: Low back pain extending into the right lower extremity. COMPARISON: 05/01/2022 TECHNIQUE: Multiplanar MR imaging of the lumbar spine was performed. FINDINGS: The spine is visualized from the Y98-Q4-J0 levels on the sagittal sequences, assuming a [...] narrowing. At the L5-S1 level, there is invs-uj-qvakkcws diffuse disc bulging and moderate hypertrophic facet changes, which results in moderate to marked neural foraminal narrowing. 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 Report reported and signed by James Vizcaino on 10/19/2022 1406 Disposition: Please schedule with Laila. [facility] 02-12-2023 History of Present illness Narrative Per Triage: Lawson Vela is a 68 year old male that requests evaluation of lumbar spine. Per review, they have symptoms of LBP into left leg pain. Positive for numbness, difficulty walking and weakness. CMT: PT Hydrocodone health care sanitary technician Studies (Reports unless indicated) MRI Lumbar: Narrative PERFORMED AT [facility] CLINICAL HISTORY: Low back pain extending into the right lower extremity. COMPARISON: 05/01/2022 TECHNIQUE: Multiplanar MR imaging of the lumbar spine was performed. FINDINGS: The spine is visualized from the Q93-Y3-X4 levels on the sagittal sequences, assuming a [...] narrowing. At the L5-S1 level, there is yusr-tp-cdkombqv diffuse disc bulging and moderate hypertrophic facet changes, which results in moderate to marked neural foraminal narrowing. Procedure Note CONVERSION, GENERIC - 11/13/2022 PERFORMED AT [facility] LOCATION:[facility] CLINICAL HISTORY: Low back pain extending into the right lower extremity. COMPARISON: 05/01/2022 TECHNIQUE: Multiplanar MR imaging of the lumbar spine was performed. FINDINGS: The spine is visualized from the Q05-G2-N5 levels on the sagittal sequences, assuming a [...] narrowing. At the L5-S1 level, there is kmcp-dq-okgzimpd diffuse disc bulging and moderate hypertrophic facet changes, which results in moderate to marked neural foraminal narrowing. 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 Report reported and signed by James Vizcaino on 10/19/2022 1406 Disposition: Please schedule with Laila. Patient name: Lawson Vela Are you being referred by a [place] for Spine Health Provider or Pain Management Provider at [facility]? No If answer is YES please [...] the facility where the MRI/CT/myelogram was completed: [facility] Address: [address] [place] [address] [facility] Address: [address] [place] [address] MRI/CT/myelogram viewable in Epic: No If not, please provide [phone] to fax in imaging reports for review. [...] was completed PT Injections [facility] Address: [address] [place] [address] Have you tried any other kinds of [...] where the surgery was completed: Additional Comments [phone] (Home Phone) documented in this encounter [facility] 01-28-2023 Note HNO ID: [id number] Author: Mookie Lee Service: ? Author Type: ? Type: Progress Notes Filed: 02/12/2023 12:58 PM Note Text: Patient name: Lawson Vela Are you being referred by a Center for Spine Health Provider or Pain Management Provider at [facility]? No If answer is YES please [...] the facility where the MRI/CT/myelogram was completed: [facility] Address: [address] [facility], [place] [address] [facility] Address: [address] [place] [address] MRI/CT/myelogram viewable in Epic: No If not, please provide [phone] to fax in imaging reports for review. [...] was completed PT Injections [facility] Address: [address] [place] [address] Have you tried any other kinds of [...] where the surgery was completed: Additional Comments [phone] (Home Phone) [facility] 12-17-2022 Evaluation note Encounter Date Diagnosis [...] prednisone taper. Advised not to take any gczb-yav-nlhndov ibuprofen while taking prednisone. OARRS reviewed . [...] spine, education on diet, decrease sugar intake. [facility] Other 05-16-2023 NoteCONSULTATION CONSULTATION DATE: 11/10/2022 TO: [...] our patients to inform us about any smle-xtr-jvecplb medications or herbal remedies/nutritional supplements/alternative remedies. 2. [...] with their primary care provider.[facility] [id number] Note CONSULTATION CONSULTATION DATE: 10/08/2022 TO: Javad [...] our patients to inform us about any jkxk-brz-tohzxhi medications or herbal remedies/nutritional supplements/alternative remedies. 2. [...] with their primary care provider.[facility] [id number] Note CONSULTATION CONSULTATION DATE: 09/10/2022 HISTORY: This [...] a tightness in that region. Medications include Le Mars 5/325 daily, tizanidine 4 mg q.h.s., Mobic [...] months' time unless otherwise indicated.[facility] [id number] NoteCONSULTATION PROCEDURE DATE: 09/10/2022 PREOPERATIVE DIAGNOSIS: Bilateral [...] patient tolerated the procedure well.[facility] [id number] Note CONSULTATION CONSULTATION DATE: 07/23/2022 HISTORY OF [...] current medications include Mobic 50 mg daily, Le Mars 5/325 per his PCP daily p.r.n. and [...] the office after the procedure.[facility] [id number] NoteCONSULTATION CONSULTATION DATE: 06/25/2022 HISTORY OF PRESENT [...] with a vitamin regimen and he takes Le Mars 5/325 daily p.r.n., and Mobic 15 mg [...] procedure here in the office.[facility] [id number] Hospital Discharge instructions Patient Education 06/01/2022 08:22:09 [...] urethra. Follow these instructions at home: Take lvwk-roj-ksdugpx and prescription medicines only as told by [...] 06/14/2006 Document Revised: 05/09/2019 Document Reviewed: 07/19/2017 [employer] Patient Education 2020 [employer]. Follow Up Care 02/16/2022 11:28:21 With:PAMELA BAER, Mac Stephenson, URL Address: [facility] [address] [place] [address]- When: Unknown [facility] 11-22-2022 NoteCONSULTATION CONSULTATION DATE: 05/19/2022 CHIEF [...] The patient currently takes Mobic 15 mg, Le Mars 5/325 on a p.r.n. basis as prescribed [...] performed. CC: Javad Donato M.D.[facility] [id number] NoteCONSULTATION CONSULTATION DATE: 04/28/2022 CHIEF COMPLAINT: Left [...] patient takes two Aleve. He also takes Le Mars 5/[address] Donato has prescribed for [...] would like to proceed. CC: Javad Donato M.D.[facility]08-22-2022 Hospital Discharge instructions Patient Education 02/16/2022 [...] urethra. Follow these instructions at home: Take yrtu-zef-njaoixj and prescription medicines only as told by [...] 06/14/2006 Document Revised: 05/09/2019 Document Reviewed: 07/19/2017 [employer] Patient Education 2020 [employer] 02/16/2022 11:24:04 Calorie Counting for Weight [...] 06/14/2006 Document Revised: 03/03/2019 Document Reviewed: 05/14/2017 [employer] Patient Education 2020 [employer]. Follow Up Care 08/18/2021 12:09:57 With:Mac SANTIAGO MD, URL Address: [address] [place] [address] [place] [address]- Business (1) When:Within 6 Month(s) [facility] evaluation + Plan note Future Appointments Appointment Date:06/01/2022 10:45:00 AM Scheduled Provider:Mac SANTIAGO MD Location:[facility] Appointment Type:URO Office Visit [facility] evaluation + Plan note Future Appointments Appointment Date:11/30/2022 08:45:00 AM Scheduled Provider:Mac SANTIAGO MD Location:[facility] Appointment Type:URO Office Visit [facility] evaluation + Plan note Future Appointments Appointment Date:02/05/2025 10:45:00 AM Scheduled Provider:Mac SANTIAGO MD Location:[facility] Appointment Type:URO Office Visit [facility] evaluation noteNo assessment information available [facility] Work Phone: evaluation noteWest [place] [employer] Other evaluation note* Diagnosis Spinal stenosis, lumbar region with neurogenic claudication- Primary [facility] Spinal stenosis, lumbar region with neurogenic claudication- Primary Bilateral hip joint arthritis [facility] Diagnosis Right hip pain- Primary Pain in joint, pelvic region and thigh Status post total hip replacement, right [facility] Diagnosis Right hip pain- Primary Pain in joint, pelvic region and thigh Status post total hip replacement, right Arthritis of right hip [facility] Diagnosis Right hip pain- Primary Pain in joint, pelvic region and thigh Status post total hip replacement, right Arthritis of right hip Primary osteoarthritis of right hip Status post right hip replacement documented in this [facility]* Diagnosis Primary osteoarthritis of right hip Status post right hip replacement Right hip pain- Primary Pain in joint, pelvic region and thigh Status post total hip replacement, right Arthritis of right hip documented in this [facility]* Diagnosis Primary osteoarthritis of right hip Status post right hip replacement documented in this encounter [facility]* Diagnosis Preop examination- Primary Unspecified pre-operative examination Hypertension, unspecified type Preop examination Unspecified pre-operative examination Hypertension, unspecified type [facility] Diagnosis Left hip pain Pain in joint, pelvic region and thigh Arthritis of left hip documented in this encounter [facility]* Diagnosis Herniated lumbar disc without myelopathy- Primary documented in this encounter [facility]* Diagnosis Status post right hip replacement documented in this encounter [facility]* Diagnosis Primary osteoarthritis of left hip- Primary Benign essential hypertension (CMS/HCC) Essential hypertension, benign Class 2 severe obesity with serious comorbidity and body mass index (BMI) of 37.0 to 37.9 in adult, unspecified obesity type (CMS/HCC) documented in this encounter [facility]* Diagnosis Post-operative pain- Primary Other acute postoperative pain documented in this encounter [facility]* Diagnosis Post-operative pain Other acute postoperative pain documented in this encounter [facility]* Diagnosis S/P total left hip arthroplasty- Primary documented in this encounter [facility]* Diagnosis S/P total left hip arthroplasty- Primary documented in this encounter [facility]* Diagnosis S/P total left hip arthroplasty- Primary Left hip pain Pain in joint, pelvic region and thigh documented in this encounter [facility]* Diagnosis Acute pharyngitis, unspecified etiology- Primary documented in this encounter [facility]* Diagnosis Routine general medical examination [...] to 37.9 in adult, unspecified obesity type ([facility]/HCC) Screening for prostate cancer Special screening for malignant neoplasm of prostate Flu vaccine need Herniated lumbar disc without myelopathy Claudication (CMS/HCC) Unspecified peripheral vascular disease [facility] Diagnosis Left hip pain- Primary Pain in joint, pelvic region and thigh S/P total left hip arthroplasty documented [facility] Diagnosis Left hip pain- Primary Pain in joint, pelvic region and thigh S/P total left hip arthroplasty documented [facility] Diagnosis Left hip pain- Primary Pain in joint, pelvic region and thigh S/P total left hip arthroplasty documented [facility]* Diagnosis S/P total left hip arthroplasty- Primary [facility] Diagnosis Left hip pain- Primary Pain in joint, pelvic region and thigh S/P total left hip arthroplasty [facility] Diagnosis Left hip pain- Primary Pain in joint, pelvic region and thigh S/P total left hip arthroplasty [facility] - Reported* Type Description Date Medical History appendicitis Medical History Arthritis Medical History Hypertension Medical History obesity Medical History pneumonia Medical History prostate cancer Surgical History appendectomy Surgical History carpal tunnel release 2017 Hospitalization History see surg Hx [facility] [employer] Other History [facility] - [facility] [employer] Other Hospital course Narrative No data available for this section [facility] progress note No data available for this section [facility] reason for referral (narrative)* Diagnostic Procedure Only (Routine) - Pending Review Specialty Diagnoses / Procedures Referred By Rayray barkley Referred To Contact XR IMAGING Diagnoses Bilateral hip joint arthritis Procedures XR HIP BILATERAL 5V PEL/AP/LAT EACH HIP RADEX HIPS BILATERAL WITH PELVIS MINIMUM 5 VIEWS Laila Lewis, KANCHAN [address] [place] [address] [facility] [address] Referral ID Status Reason Start Date Expiration Date Visits Requested Visits Authorized [id number] Pending Review Auto-Generat ed Referral 3 05/12/2024 1 1 * Consult, Test, Treat (Routine) - Pending Review Specialty Diagnoses / Procedures Referred By Contac t Referred To Contact Orthopedics Diagnoses Bilateral hip joint arthritis Procedures CONSULT TO ORTHOPAEDICS OFFICE/OUTPATIENT [facility] 60-74 MINUTES Laila Lewis PA-C [address] [place] [address] Referral ID Status Reason Start Date Expiration Date Visits Requested Visits Authorized [id number] Pending Review PCP Requested Referral 3 04/12/2024 1 1 [facility] for visit Narrativeself referral- low back pain L4-L5 N[facility] Other reason for visit Narrative* Rehabilitation - Outpatient (Routine) - Authorized Specialty Diagnoses / Procedures Referred By Contac t Referred To Contact Physical Therapy Diagnoses S/P total left hip arthroplasty Procedures DE OFFICE/OUTPATIENT [facility] Jose Hernández, YISEL [address] [place] [address] Phone: tel: fax: Nagi Plata, PT [address] [place] [address] Phone: tel: fax: Referral ID Status Reason Start Date Expiration Date Visits Requested Visits Authorized [id number] Authorized Consult and Treat 06/12/2024 06/27/2024 10 10 [facility] for visit Narrative* Rehabilitation - Outpatient (Routine) - Authorized Specialty Diagnoses / Procedures Referred By Contac t Referred To Contact Physical Therapy Diagnoses S/P total left hip arthroplasty Procedures DE OFFICE/OUTPATIENT [facility] 60 MINUTES Jose Hernández, YISEL [address] [place] [address] Phone: tel: fax: Nagi Plata, PT [address] [place] [address] Phone: tel: fax: Referral ID Status Reason Start Date Expiration Date Visits Requested Visits Authorized [id number] Authorized Consult and Treat 06/29/2024 06/27/2025 20 20 [facility]* Rehabilitation - Outpatient (Routine) - Authorized Specialty Diagnoses / Procedures Referred By Rayray t Referred To Contact Physical Therapy Diagnoses S/P total left hip arthroplasty Procedures DE OFFICE/OUTPATIENT [facility] 60 MINUTES Jose Hernández, LUGGAGE REPAIRER [address] [place] [address] Phone: tel: fax: Nagi Plata, PT [address] [place] [address] Phone: tel: fax: Referral ID Status Reason Start Date Expiration Date Visits Requested Visits Authorized [id number] Authorized Consult and Treat 06/29/2024 06/27/2025 20 30 [facility] Summary Purpose Family History No Family History [...] Referred By Rayray t Referred To Contact Diagnoses Preop examination Hypertension, unspecified type Procedures ECG 12 lead Charissa Blair DO [address] [place] [address] Referral ID Status Reason Start Date Expiration Date V isits Requested Visits Authorized [id number] Pending Review 03/06/2024 03/06/2025 1 1 Additional Source Comments Care Team (unrecognized sect ion and content) Team Status: Active Member Role Status Dates Javad Donato II MD Primary Care Provider Active Team Status: Inactive Member Role Status Dates Javad Donato II MD Primary Care Provider Active AURELIANO ReyesC Attending Provider Active Director Speech Language Relationship Specialty Start Date End Date Javad Donato MD [address] [place] [address] PCP - ACO Reach 11/19/22 Javad Donato MD [address] [place] [address] PCP - General Internal Medicine 01/05/23 Director Speech Language Relationship Specialty Start Date End Date Javad Donato MD [address] [place] [address] PCP - ACO Reach 11/19/22 Javad Donato MD [address] [place] [address] PCP - General Internal Medicine 01/05/23 Director Speech Language Relationship Specialty Start Date End Date Javad Donato MD [address] [place] [address] PCP - ACO Reach 11/19/22 Javad Donato MD [address] [place] [address] PCP - General Internal Medicine 01/05/23 Director Speech Language Relationship Specialty Start Date End Date Javad Donato MD [address] [place] [address] PCP - ACO Reach 11/19/22 Javad Donato MD [address] [place] [address] PCP - General Internal Medicine 01/05/23 Director Speech Language Relationship Specialty Start Date End Date Javad Donato MD [address] [place] [address] PCP - ACO Reach 11/19/22 Javad Donato MD [address] [place] [address] PCP - General Internal Medicine 01/05/23 Director Speech Language Relationship Specialty Start Date End Date Javad Donato MD [address] [place] [address] PCP - ACO Reach 11/19/22 Javad Donato MD [address] [place] [address] PCP - General Internal Medicine 01/05/23 Director Speech Language Relationship Specialty Start Date End Date Javad Donato MD [address] [place] [address] PCP - ACO Reach 11/19/22 Javad Donato MD [address] [place] [address] PCP - General Internal Medicine 01/05/23 Director Speech Language Relationship Specialty Start Date End Date Javad Donato MD [address], [address] [place] [id number] PCP - General Internal Medicine 06/15/17 Director Speech Language Relationship Specialty Start Date End Date Javad Doanto MD [address] [place] [address] PCP - ACO Reach 11/19/22 Javad Donato MD [address] [place] [address] PCP - General Internal Medicine 01/05/23 Director Speech Language Relationship Specialty Start Date End Date Javad Donato MD [address] [place] [address] PCP - ACO Reach 11/19/22 Javad Donato MD [address] [place] [address] PCP - General Internal Medicine 01/05/23 Director Speech Language Relationship Specialty Start Date End Date Javad Donato MD [address] [place] [address] PCP - ACO Reach 11/19/22 Javad Donato MD [address] [place] [address] PCP - General Internal Medicine 01/05/23 Director Speech Language Relationship Specialty Start Date End Date Javad Donato MD [address] [place] [address] PCP - ACO Reach 11/19/22 Javad Donato MD [address] [place] [address] PCP - General Internal Medicine 01/05/23 Director Speech Language Relationship Specialty Start Date End Date Javad Donato MD [address] [place] [address] PCP - ACO Reach 11/19/22 Javad Donato MD [address] [place] [address] PCP - General Internal Medicine 01/05/23 Director Speech Language Relationship Specialty Start Date End Date Javad Donato MD [address] [place] [address] PCP - ACO Reach 11/19/22 Javad Donato MD [address] [place] [address] PCP - General Internal Medicine 01/05/23 Director Speech Language Relationship Specialty Start Date End Date Javad Donato MD [address] [place] [address] PCP - ACO Reach 11/19/22 Javad Donato MD [address] [place] [address] PCP - General Internal Medicine 01/05/23WednesdayMichelle LPN [address] [place] [address] Licensed Practical Nurse Family Medicine 05/08/24 Director Speech Language Relationship Specialty Start Date End Date Jvaad Donato MD [address] [place] [address] PCP - ACO Reach 11/19/22 Javad Donato MD [address] [place] [address] PCP - General Internal Medicine 01/05/23Wednesday, Michelle, P[employer]ERHANGER [employer] PAINTER [address] [place] [address] Licensed Practical Nurse Family Medicine 05/08/24 Director Speech Language Relationship Specialty Start Date End Date Javad Donato MD [address] [place] [address] PCP - ACO Reach 11/19/22 Javad Donato MD [address] [place] [address] PCP - General Internal Medicine 01/05/23Wednesday, Michelle, PAPERHANGER AND PAINTER [address] [place] [address] Licensed Practical Nurse Family Medicine 05/08/24 05/16/24 Director Speech Language Relationship Specialty Start Date End Date Javad Donato MD [address] [place] [address] PCP - ACO Reach 11/19/22 Javad Donato MD [address] [place] [address] PCP - General Internal Medicine 01/05/23Wednesday, Michelle, PAPERHANGER AND PAINTER [address] [place] [address] Licensed Practical Nurse Family Medicine 05/08/24 05/16/24 Director Speech Language Relationship Specialty Start Date End Date Javad Donato MD [address] [place] [address] PCP - ACO Reach 11/19/22 Javad Donato MD [address] [place] [address] PCP - General Internal Medicine 01/05/23Wednesday, Michelle, PAPERHANGER [employer] PAINTER [address] [place] [address] Licensed Practical Nurse Family Medicine 05/08/24 05/16/24 Director Speech Language Relationship Specialty Start Date End Date Javad Donato MD [address] [place] [address] PCP - ACO Reach 11/19/22 Javad Donato MD [address] [place] [address] PCP - General Internal Medicine 01/05/23 Director Speech Language Relationship Specialty Start Date End Date Javad Donato MD [address] [place] [address] PCP - ACO Reach 11/19/22 Javad Donato MD [address] [place] [address] PCP - General Internal Medicine 01/05/23 Director Speech Language Relationship Specialty Start Date End Date Javad Donato MD [address] [place] [address] PCP - ACO Reach 11/19/22 Javad Donato MD [address] [place] [address] PCP - General Internal Medicine 01/05/23 Director Speech Language Relationship Specialty Start Date End Date Javad Donato MD [address] [place] [address] PCP - ACO Reach 11/19/22 Javad Donato MD [address] [place] [address] PCP - General Internal Medicine 01/05/23 Director Speech Language Relationship Specialty Start Date End Date Javad Donato MD [address] [place] [address] PCP - ACO Reach 11/19/22 Javad Donato MD [address] [place] [address] PCP - General Internal Medicine 01/05/23 Director Speech Language Relationship Specialty Start Date End Date Javad Donato MD [address] [place] [address] PCP - ACO Reach 11/19/22 Javad Donato MD [address] [place] [address] PCP - General Internal Medicine 01/05/23 Director Speech Language Relationship Specialty Start Date End Date Javad Donato MD [address] [place] [address] PCP - ACO Reach 11/19/22 Javad Donato MD [address] [place] [address] PCP - General Internal Medicine 01/05/23 Director Speech Language Relationship Specialty Start Date End Date Javad Donato MD [address] [place] [address] PCP - ACO Reach 11/19/22 Javad Donato MD [address] [place] [address] PCP - General Internal Medicine 01/05/23 Director Speech Language Relationship Specialty Start Date End Date Javad Donato MD [address] [facility] [address] [place] [address] PCP - ACO Reach 11/19/22 Javad Donato MD [address] [facility] [address] [place] [address] PCP - General Internal Medicine 01/05/23 Director Speech Language Relationship Specialty Start Date End Date Javad Donato MD [address] [facility] [address] [place] [address] PCP - ACO Reach 11/19/22 Javad Donato MD [address] [facility] [address] [place] [address] PCP - General Internal Medicine 01/05/23 (unrecognized sect ion and content) No Status Records FoundNo Status Records FoundNo Status Records FoundNo Status Records FoundNo Status Records FoundNo Status Records FoundNo Status Records FoundNo Status Records FoundNo Status Records Found INFORMATION SOURCE (unrecogn ized section and content) DATE CREATED AUTHOR 05/02/2022 [facility] Me dical Specialist DATE CREATED AUTHOR AUTHOR'S ORGANIZ ATION 12/04/2022 [facility] DATE CREATED AUTHOR AUTHOR'S ORGANIZ ATION 01/13/2023 [facility] DATE CREATED AUTHOR AUTHOR'S ORGANIZ ATION 02/13/2023 [facility] DATE CREATED AUTHOR AUTHOR'S ORGANIZ ATION 04/17/2023 [facility] DATE CREATED AUTHOR AUTHOR'S ORGANIZ ATION 02/09/2024 [facility] DATE CREATED AUTHOR AUTHOR'S ORGANIZ ATION 05/05/2024 [facility] DATE CREATED AUTHOR AUTHOR'S ORGANIZ ATION 06/18/2024 [facility] DATE CREATED AUTHOR AUTHOR'S ORGANIZ ATION 07/17/2024 [facility] dical Specialists EPIC Goals [...] or prosecute any alcohol or drug abuse patient.[facility] the event this information is protected by the Federal Confidentiality of Alcohol and Drug Abuse Patient Records regulations: The Federal rules restrict any use of the information to criminally investigate or prosecute any alcohol or drug abuse patient.[facility] Reason for Visit (unrecogniz ed section and content) Reason Comments New Patient Specialty Diagnoses / Procedures Referred By Contac t Referred To Contact Physical Therapy Diagnoses Presence of artificial hip joint, right Procedures DE OFFICE/OUTPATIENT NEW HIGH MDM 60 MINUTES Charissa Blair, DO [address] [facility] [address] [place] [address] [address] [place] [address] Referral ID Status Reason Start Date Expiration Date Visits Requested Visits Authorized [id number] Authorized Specialty Services Required 07/08/2023 01/04/2024 30 30 Reason Comments Follow-up Reason Comments Pain Reason Onset Date Comments Med Refill 04/12/2024 Reason Comments surgical clearance Pt sched 05/03/24 for left hip replacement with Dr Blair at [facility] completed Reason Onset Date Comments Discharge 05/04/2024 Reason Comments Pain Reason Comments URI Reason Comments Medicare Annual Wellness Visit Subsequen t Med Refill Hydrocodone--kroger bryanprabhat-for back pain pt is going to do [...] BE BASED ON THE PRIMARY CLINICAL RECORDS. [facility]. provides no warranty or guarantee of the accuracy or completeness of information in this document.
--- NOTE | 2024-07-19 08:07 | P.CN_ITS ---
Consult Note: HPI Data of Consult Patient: known to practice within the last 3 years Requesting Physician: Kath Steiner NP Primary Care Provider: JOHNATHAN LÓPEZ Consult Narrative Reason for consult: f/u Narrative: Lawson Vela a pleasant 69 year old male presents for evaluation of chronic low back, left posterior thigh and buttocks pain. Pain increased with all activity, improved with sleep and sitting. Patient reporting mild relief from ibuprofen, tizanidine, and norco 5-325mg. recently underwent repeat L5/S1 JEN with >50% improvement ongoing. pt feeling much better. Pain 1/10, increasing to 4/10. SMITA 36% cc:: CC: Kath Steiner NP Review of Systems ROS Status of ROS 10 or more systems reviewed and unremark able except as noted in history and below Musculoskeletal Denies: back pain or joint pain PFSH PFSH Medical History Neuritis ?M79.2 - Neuralgia and neuritis, unspecified (ICD-10) Left carpal tunnel syndrome ?G56.02 - Carpal tunnel syndrome, left upper limb (ICD-10) Osteoarthritis ?M19.90 - Unspecified osteoarthritis, unspecified site (ICD-10) Low back pain ?M54.50 - Low back pain, unspecified (ICD-10) Obesity ?E66.9 - Obesity, unspecified (ICD-10) Enlarged prostate ?N40.0 - Benign prostatic hyperplasia without lower urinary tract symptoms (ICD-10) Former smoker ?Z87.891 - Personal history of nicotine dependence (ICD-10) Hypertension ?I10 - Essential (primary) hypertension (ICD-10) Surgical History H/O total hip arthroplasty ?Z96.649 - Presence of unspecified artificial hip joint (ICD-10) Hx of appendectomy ?Z90.49 - Acquired absence of other specified parts of digestive tract (ICD- 10) Social History Smoking status: Former smoker Meds Home Medications and Allergies Home Medications ?Medication ?Instructions ?Recorded ?Confirmed ?Type ascorbic acid (vitamin C) 500 mg 500 mg PO DAILY 12/10/22 07/04/24 History tablet (C-500) bee pollen 550 mg capsule mg PO .QD 12/10/22 History carvedilol 6.25 mg tablet 6.25 mg PO BID 12/10/22 07/04/24 History cholecalciferol (vitamin D3) 10 10 mcg PO DAILY 12/10/22 07/04/24 History mcg (400 unit) capsule (Vitamin D3) finasteride 5 mg tablet 5 mg PO .QD 12/10/22 07/04/24 History hydrocodone 5 mg-acetaminophen 325 1 tab PO QID PRN pain 12/10/22 07/04/24 History mg tablet mecobalamin (vitamin B12) 1,000 1,000 mcg PO DAILY 12/10/22 07/04/24 History mcg chewable tablet (B12 Active) meloxicam 15 mg tablet 15 mg PO .QD 12/10/22 07/04/24 History multivitamin 1 tab PO DAILY 12/10/22 07/04/24 History sildenafil 100 mg tablet (Viagra) 100 mg PO DAILY PRN sexual activity 12/10/22 07/04/24 History solifenacin 10 mg tablet 10 mg PO DAILY 12/10/22 07/04/24 History tamsulosin 0.4 mg capsule 0.4 mg PO Q24H 12/10/22 07/04/24 History tizanidine 4 mg capsule 4 mg PO .HS PRN muscle spasticity 12/10/22 07/04/24 History vitamin B complex (Complex B-100 1 tab PO DAILY 12/10/22 07/04/24 History tablet,extended release) zinc 50 mg tablet 50 mg PO DAILY 12/10/22 07/04/24 History Allergies Allergy/AdvReac Type Severity Reaction Status Date / Time No Known Drug Allergies Allergy Verified 07/04/24 06:54 Exam Constitutional Documenting provider has reviewed patient's vital signs: yes Common normals: no apparent distress, oriented x3, healthy appearing, alert and well nourished General appearance: cooperative Nutritional appearance: obese HENMT Common normals: normocephalic, hearing grossly normal bilaterally and moist oral mucous membranes Head and scalp: normocephalic Eye Common normals: PERRL Pupil: PERRL Neck & C-Spine Common normals: full ROM General: normal visual inspection Chest Common normals: inspection of chest normal Respiratory Common normals: normal respiratory effort, no retractions and no use of accessory muscles Back & Pelvis Lumbar spine/lower back: straight leg raise negative bilaterally; ROM not limited, no pain with ROM, no lumbar spinal tenderness and no paraspinal muscle tenderness Sacroiliac joints: SI joints normal Other: strength 5/5 in BLE Extremity Common normals: normal to inspection and full ROM Neuro Common normals: oriented x3, CN's II-XII intact bilaterally, moves all extremities, no focal motor deficits, no sensory deficits noted and deep tendon reflexes 2+ bilaterally Sensorium/orientation: alert Gait (neuro): antalgic Motor exam: strength 5/5 throughout and no movement abnormalities noted Psych Common normals: mental status grossly normal, thought process normal, cooperative, affect normal, speech normal and activity/motor behavior normal Speech: normal speech Thought process: normal thought process Results Additional Findings Additional findings: If on a controlled substance or opioids, I have checked an OARRS report on this patient and there are no aberrancies noted in the prescribing history.??If on a controlled substance or opioid a drug screen was completed and reviewed within the last year, and if there has not been a drug screen completed we ordered one today to monitor higher risk, state monitored pain medication use. As part of providing excellent, safe, comprehensive care, the following was completed at our patient's visit: 1. A medication reconciliation and review to ensure accurate knowledge of current/active medications, including asking our patients to inform us about any [id number] medications or herbal remedies/nutritional supplements/alternative remedies. 2. A review to specifically ensure our patients have had annual screening for screening for depression, screening for tobacco use, and screening for unhealthy alcohol use. For concerning screenings had a discussion with the patient, provided patient education, and recommended follow-up with primary care provider when appropriate. If patient noted with a risk of falling, they received education on strength, gait, and balance training to prevent future risk of falling. Assessment and Plan Assessment and Plan (1) Lumbar stenosis with neurogenic claudication: (2) Lumbar spondylosis: (3) Myofascial pain: Plan lumbar MRI and xray reviewed with pt, will review case with Dr Fletcher for future consideration of vertiflex vs SCS. pt is not interested right now but may consider more in the future continue current medications continue HEP as tolerated f/u 3 months, sooner if needed
== END 2024-07-19 07:29 | disposition home or self-care (01) ==
LOC: PM 07:29
PROVIDERS: PCP Internal Medicine; Visit Provider Nurse Practitioner
DX: M48.062 Spinal stenosis, lumbar region with neurogenic claudication (principal); M47.816 Spondylosis without myelopathy or radiculopathy, lumbar region; M79.18 Myalgia, other site
CPT/HCPCS: G0463

== ENCOUNTER 2024-10-25 07:15 | Outpatient (OUT) | payer MEDICARE, OTHER, SELFPAY ==
--- NOTE | 2024-10-25 07:55 | PM.CN ---
Consult Note: HPI Data of Consult Patient: known to practice within the last 3 years Requesting Physician: Kath Steiner NP Primary Care Provider: JOHNATHAN LÓPEZ Consult Narrative Reason for consult: low back pain Narrative: Lawson Vela a pleasant 69 year old male with longstanding low back and left leg pain presents for evaluation. Pt has a hx of lumbar ddd, lumbar stenosis, and lumbar spondylosis on prior advanced imaging. Pt recently completed > 6 weeks of aquatherapy with mild improvement. Pt has failed to benefit from > 6 weeks of PT/provider guided HEP, heat, ice, tylenol, and NSAIDs. currently utilizing mobic 15mg daily, tizanidine 4mg hS PRN, and norco 5-325mg PRN. Pain today 4/10 increasing to 10/10 with standing, walking, activity, bending, twisting. Pain improved with forward flexion, lying down, and sitting. cc:: CC: Kath Steiner NP Review of Systems ROS Musculoskeletal Reports: back pain, extremity pain and joint pain PFSH PFSH Medical History (Updated 10/25/24 @ 07:58 by Kath Steiner NP) Neuritis ?M79.2 - Neuralgia and neuritis, unspecified (ICD-10) Left carpal tunnel syndrome ?G56.02 - Carpal tunnel syndrome, left upper limb (ICD-10) Osteoarthritis ?M19.90 - Unspecified osteoarthritis, unspecified site (ICD-10) Low back pain ?M54.50 - Low back pain, unspecified (ICD-10) Obesity ?E66.9 - Obesity, unspecified (ICD-10) Enlarged prostate ?N40.0 - Benign prostatic hyperplasia without lower urinary tract symptoms (ICD-10) Former smoker ?Z87.891 - Personal history of nicotine dependence (ICD-10) Hypertension ?I10 - Essential (primary) hypertension (ICD-10) Surgical History H/O total hip arthroplasty ?Z96.649 - Presence of unspecified artificial hip joint (ICD-10) Hx of appendectomy ?Z90.49 - Acquired absence of other specified parts of digestive tract (ICD-10) Social History Smoking status: Former smoker Meds Home Medications and Allergies Home Medications ?Medication ?Instructions ?Recorded ?Confirmed ?Type ascorbic acid (vitamin C) 500 mg 500 mg PO DAILY 12/10/22 07/04/24 History tablet (C-500) bee pollen 550 mg capsule mg PO .QD 12/10/22 History carvedilol 6.25 mg tablet 6.25 mg PO BID 12/10/22 07/04/24 History cholecalciferol (vitamin D3) 10 10 mcg PO DAILY 12/10/22 07/04/24 History mcg (400 unit) capsule (Vitamin D3) finasteride 5 mg tablet 5 mg PO .QD 12/10/22 07/04/24 History hydrocodone 5 mg-acetaminophen 325 1 tab PO QID PRN pain 12/10/22 07/04/24 History mg tablet mecobalamin (vitamin B12) 1,000 1,000 mcg PO DAILY 12/10/22 07/04/24 History mcg chewable tablet (B12 Active) meloxicam 15 mg tablet 15 mg PO .QD 12/10/22 07/04/24 History multivitamin 1 tab PO DAILY 12/10/22 07/04/24 History sildenafil 100 mg tablet (Viagra) 100 mg PO DAILY PRN sexual activity 12/10/22 07/04/24 History solifenacin 10 mg tablet 10 mg PO DAILY 12/10/22 07/04/24 History tamsulosin 0.4 mg capsule 0.4 mg PO Q24H 12/10/22 07/04/24 History tizanidine 4 mg capsule 4 mg PO .HS PRN muscle spasticity 12/10/22 07/04/24 History vitamin B complex (Complex B-100 1 tab PO DAILY 12/10/22 07/04/24 History tablet,extended release) zinc 50 mg tablet 50 mg PO DAILY 12/10/22 07/04/24 History Allergies Allergy/AdvReac Type Severity Reaction Status Date / Time No Known Drug Allergies Allergy Verified 07/04/24 06:54 Exam Constitutional Documenting provider has reviewed patient's vital signs: yes Common normals: no apparent distress, oriented x3, healthy appearing, alert and well nourished General appearance: cooperative [facility] Common normals: normocephalic, hearing grossly normal bilaterally and moist oral mucous membranes Head and scalp: normocephalic Eye Common normals: PERRL Pupil: PERRL Neck & C-Spine Common normals: full ROM General: normal visual inspection Chest Common normals: inspection of chest normal Respiratory Common normals: normal respiratory effort, no retractions and no use of accessory muscles Back & Pelvis Lumbar spine/lower back: ROM limited, pain with ROM and straight leg raise positive left Sacroiliac joints: SI joint(s) abnormal Other: decreased sensation to left L4,5,S1 strength 4/5 in LLE and 5/5 in RLE left sij positive sayra(patricks), gaenslens, thigh thrust, compression test increased pain and heaviness to LE with standing and walking, improved with sitting and forward flexion Neuro Common normals: oriented x3 Sensorium/orientation: alert Psych Common normals: mental status grossly normal, thought process normal, cooperative, affect normal, speech normal and activity/motor behavior normal Speech: normal speech Thought process: normal thought process Results Additional Findings Additional findings: If on a controlled substance or opioids, I have checked an OARRS report on this patient and there are no aberrancies noted in the prescribing history.??If on a controlled substance or opioid a drug screen was completed and reviewed within the last year, and if there has not been a drug screen completed we ordered one today to monitor higher risk, state monitored pain medication use. As part of providing excellent, safe, comprehensive care, the following was completed at our patient's visit: 1. A medication reconciliation and review to ensure accurate knowledge of current/active medications, including asking our patients to inform us about any [id number]-[id number] medications or herbal remedies/nutritional supplements/alternative remedies. 2. A review to specifically ensure our patients have had annual screening for screening for depression, screening for tobacco use, and screening for unhealthy alcohol use. For concerning screenings had a discussion with the patient, provided patient education, and recommended follow-up with primary care provider when appropriate. If patient noted with a risk of falling, they received education on strength, gait, and balance training to prevent future risk of falling. Portions of this note may have been carried over from the previous visit and updated as appropriate. Please note this office utilizes paper charting in addition to the electronic medical record. A list of current medications, vitals, and PMH is available there as the clinical staff outside of myself do not have access to [employer] charting during the clinic day operations. As part of providing quality comprehensive care the current medications, vitals, and PMH were reviewed in the paper chart. Assessment and Plan Assessment and Plan (1) Lumbar stenosis with neurogenic claudication: Assessment and Plan: The patient has had over 3 months of moderate to severe low back and left leg pain with functional impairment and inadequate response to conservative care including NSAIDS (unless there are contraindication such as concurrent blood thinners), multiple oral or topical pain medications, and home exercise program/physical therapy.? Patient has completed >6 weeks of guided home exercise program and/or formal physical therapy program without relief of their symptoms.? The Oswestry Disability Index was completed, and the patient scored a 38%.? The patient noted the following:?? moderate to severe pain impacting ADLs, standing, walking, sleep, social life, travel We discussed the risks and benefits of the procedure with the patient, and we are NOT planning on using sedation as outlined in the guidelines from Medicare unless there is a documented reason that sedation would be strongly recommended.?? ?The procedure will be completed with fluoroscopic guidance.? (2) Sacroiliitis: (3) Myofascial pain: Plan left L4-5 L5-S1 TFESI under fluoroscopy for lumbar stenosis with NC continue HEP as tolerated f/u 2 weeks after injection, consider left SIJ injection
== END 2024-10-25 07:16 | disposition home or self-care (01) ==
LOC: PM 07:16
PROVIDERS: PCP Internal Medicine; Visit Provider Nurse Practitioner
DX: M48.062 Spinal stenosis, lumbar region with neurogenic claudication (principal); M46.1 Sacroiliitis, not elsewhere classified; M79.18 Myalgia, other site
CPT/HCPCS: G0463

== ENCOUNTER 2024-11-06 08:00 | Day surgery (SDC) | payer MEDICARE, OTHER, SELFPAY ==
--- OUTSIDE RECORDS SUMMARY | 2024-11-06 08:13 | XMS_ITS | CCD ---
Author Organization [facility] Care Team Providers Care Animal Trainer Name Role Phone JAVAD DONATO Primary Care [...] HAWTHRONE ., DR ANTIONE Fletcher Admitting Unavailable MARIBEL, [...] ., NARENDRANATH Attending Peyton vailable LAKSHMIPATHY ., NARENDRANATH Admitting [...] Cardenas Attending Unavailable Javad Donato MD Unavailable [phone] Javad Donato MD Primary Care Provider Mac SANTIAGO Attending Unavailable Mac SANTIAGO Attending Unavailable CHARISSA BLAIR Referring Unavailable JAVAD DONATO Primary Care Unavailable CHARISSA BLAIR Admitting Unavailable CHARISSA BLAIR Attending Unavailable JAVAD DONATO Primary Care Unavailable DEVIN SAUL Attending Unavailable JAVAD DONATO Primary Care Unavailable CHARISSA BLAIR Attending Unavailable CHARISSA BLAIR Referring Unavailable JAVAD DONATO Primary Care Unavailable CHARISSA BLAIR Referring Unavailable JAVAD DONATO Primary Care Unavailable NURY, CHARISSA Rose Referring Unavailable JAVAD DONATO Primary Care Unavailable NURY, CHARISSA Rose Referring Unavailable JAVAD DONATO Primary Care Unavailable MARIETTA, CHARISSA Rose Referring Unavailable JAVAD DONATO Primary Care Unavailable MARIETTA, CHARISSA Rose Admitting Unavailable NURY, CHARISSA Rose Attending Unavailable JAVAD DONATO Primary Care Unavailable Wednesday TURNER AND FORMER AUTOMATIC, Michelle Unavailable Wednesday TURNER AND FORMER AUTOMATIC, Michelle Unavailable Javad Donato MD Primary Care Provider JEANNA MENDIOLA Attending Unavailable EDGAR, JOSE Barkley Referring Unavailable HEMSTEPHEN, ALMA Gaona Attending Unavailable HERNÁNDEZ, JOSE Barkley Attending Unavailable JAVAD DONATO Attending Unavailable HERNÁNDEZ, JOSE Barkley Attending Unavailable HERNÁNDEZ, JOSE Barkley Referring Unavailable HERNÁNDEZ, JOSE Barkley Attending Unavailable HERNÁNDEZ, JOSE Brett Referring Unavailable NURY, CHARISSA Rose Attending Unavailable HEMSTEPHEN, ALMA Gaona Attending Unavailable NURY, CHARISSA Rose Attending Unavailable HEMSTEPHEN, ALMA Gaona Attending Unavailable HERNÁNDEZ, JOSE Barkley Attending Unavailable NURY, CHARISSA Rose Referring Unavailable JAVAD DONATO Attending Unavailable NURY, CHARISSA Rose Attending Unavailable NURY, CHARISSA Rose Attending Unavailable HERNÁNDEZ, JOSE Barkley Attending Unavailable HERNÁNDEZ, JOSE T Referring Unavailable JAVAD DONATO Attending Unavailable NAGI PLATA Attending Unavailable HERNÁNDEZ, JOSE T Referring Unavailable JAVAD DONATO Referring Unavailable KAILEY GOLDMAN Attending Unavailable HERNÁNDEZ, [...] Attending Unavailable HERNÁNDEZ, JOSE T Referring Unavailable Allergies Allergy Classification Reported Allergen(s) Allergy Type Date of Onset Reaction(s) Facility (20 sources) carvedilol; Translations: [CARVEDILOL] Drug Allergy 06-29-2022 [facility] Medications Current Medications Medication Drug Class(es) Dates Sig (Normalized) Sig (Original) acetaminophen 500 mg oral tablet (4 sources) Start: 02-07-2024 End: 04-04-2024 take 1 tablet by mouth every six hours Tylenol Extra Strength 500 mg oral tablet See Instructions, tab(s) mg Oral q6hr, Refills(s) 0 Start Date: 02/07/24 Status: Ordered acetaminophen 325 mg / HYDROcodone bitartrate 5 mg oral tablet (20 sources) Opioid Agonist Start: 04-12-2024 End: 10-25-2024 take 1 tablet by mouth every six hours for pain HYDROcodone-aceta minophen (Newport) 5-325 MG tablet Indications: Herniated lumbar disc without myelopathy Take 1 tablet by mouth every 6 (six) hours if needed for severe pain 40 tablet 10/25/2024 Active Start: 02-07-2024 take 1 tablet by yvon th every six hours Newport 325 mg-5 mg oral tablet 1 tab(s), Oral, q6hr, Refill(s) 0 Start Date: 02/07/24 Status: Ordered End: 04-12-2024 HYDROcodone-acetaminophen (N orco) 5-325 MG tablet 04/12/2024 Discontinued (Reorder) HYDROcodone-acet aminophen (NORCO) 5-325 mg per tablet amoxicillin 875 mg oral tablet (20 sources) Penicillin-class Antibacterial Start: 07-27-2024 End: 08-03-2024 take 1 tablet by mouth in the morning amoxicillin (Amoxil) 875 MG tablet Indications: Acute non-recurrent frontal sinusitis Take 1 tablet (875 mg) by mouth in the morning and 1 tablet (875 mg) before bedtime. Do all this for 7 days. 14 tablet 07/27/2024 08/03/2024 Active Start: 01-24-2024 End: 10-25-2024 take 4 tablets by mouth once at mealtime amoxicillin (Amoxil) 500 MG tablet Indications: Status post right hip replacement 4 tabs PO once 30-60 mins before procedure with food 4 tablet 3 04/12/2024 10/25/2024 Discontinued (Therapy completed) Ascorbic Acid (20 sources) Vitamin C Start: [...] directed Orally 0 Active BEE POLLEN ORAL (2 sources) take 1 tablet by yvon th in the morning BEE POLLEN ORAL Take 1 tablet by mouth in the morning. Active take 1 tablet by mouth in the mo rning BEE POLLEN ORAL Take 1 tablet by mouth in the morning. 0 betamethasone 0.5 mg/ml / clotrimazole 10 mg/ml topical cream (2 sources) Azole Antifungal, Corticosteroid Start: 06-14-2020 Lotrisone 0.05%-1% Cream Topical, BID, Refill(s) 0 Start Date: 06/14/20 Status: Ordered cephalexin 500 mg oral capsule (2 sources) Cephalosporin Antibacterial Start: 06-30-2023 End: 07-10-2023 take 1 capsule by mouth three times daily CEPHalexin (KEFLEX) 500 mg capsule Take 1 capsule (500 mg total) by mouth 3 (three) times a day. 0 06/30/2023 07/10/2023 Active Cholecalciferol (20 sources) Vitamin D Start: 02-07-2024 cholecalciferol 1,250 [...] sulfate 325 mg delayed release oral tablet (15 sources) Start: 04-06-2024 End: 05-06-2024 take 1 [...] 0 Start Date: 06/14/20 Status: Ordered folic acid/multivit-min/l utein (CENTRUM SILVER ORAL) (3 sources) take 1 tablet by mouth once in the morning folic acid/multivit-min/ lutein (CENTRUM SILVER ORAL) Take 1 tablet by mouth in the morning. Active take 1 tablet by yvon th once in the morning folic acid/multivit-min/lutein (CENTRUM SILVER ORAL) Take 1 tablet by mouth in the morning. 0 Active take 1 tablet by yvon th once in the morning folic acid/multivit-min/lutein (CENTRUM SILVER ORAL) Take 1 tablet by mouth in the morning. 0 hydroCHLOROthiazide 12.5 mg / irbesartan 150 mg oral tablet (20 sources) Thiazide Diuretic, Angiotensin 2 Receptor Becca Start: 06-23-2024 take 1 tablet by mouth once daily irbesartan-hydroCHLOROthiazide (Avalide) 150-12.5 MG tablet [...] day for 30 days Nov, Active Magnesium (3 sources) take 1 tablet by yvon th in the morning magnesium 200 mg tablet Take 1 tablet by mouth in the morning. Active take 1 tablet by mouth in the mo rning magnesium 200 mg tablet Take 1 tablet by mouth in the morning. 0 Active take 1 tablet by mouth in the mo rning magnesium 200 mg tablet Take 1 tablet by mouth in the morning. 0 magnesium gluconate 550 mg oral tablet (20 [...] tablet 02/17/2024 02/25/2024 Active Start: 12-17-2022 Start: 06-22-2023 predniSONE 10 MG Take 3 tablets by mouth for 3 days then 2 tablets by mouth for 3 days then 1 tablet by mouth for 3 days Orally Once a day for Nov, Active selenium 200 mcg capsule (3 sources) take 1 capsule by [facility] in the morning selenium 200 mcg capsule Take 1 capsule (200 mcg total) by mouth in the morning. Active take 1 capsule by mouth in the m orning selenium 200 mcg capsule Take 1 capsule (200 mcg total) by mouth in the morning. 0 Active take 1 capsule by mouth in the m orning selenium 200 mcg capsule Take 1 capsule (200 mcg total) by mouth in the morning. 0 sildenafil 100 mg oral tablet (20 sources) Phosphodiesterase 5 Inhibitor Start: 02-07-2024 sildenafil 100 mg Tab 100 mg = 1 tab(s), REGIMEN As Directed, Refills(s) 0 Start Date: 02/07/24 Status: Ordered solifenacin succinate 10 mg oral tablet (20 sources) Cholinergic Muscarinic Antagonist Start: 11-25-2021 take 1 tablet by mouth in the morning solifenacin (VESICARE) 10 mg tablet Take 1 tablet (10 mg total) by mouth in the morning. 09/30/2022 Active Comment on above: 1 (one) time each da y at the same time. tamsulosin hydrochloride 0.4 mg oral capsule (20 sources) alpha-Adrenergic Becca Start: 08-21-2022 take 1 capsule by mouth every twenty-four hours in the morning tamsulosin (Flomax) 0.4 MG 24 hr capsule Take 0.4 mg by mouth in the morning and 0.4 mg before bedtime. 08/21/2022 Active Start: 06-30-2021 take 1 capsule by [facility] twice daily tamsulosin 0.4 mg Cap 0.4 mg = 1 cap(s), Oral, BID, # 60 cap(s), Refills(s) 11, Pharmacy: [facility] [id number], 186, cm, 02/08/23 11:10:00 EDT, Height/Length Dosing, [...] take 1 tablet by yvon th every eight hours tiZANidine 4 mg Tab 4 mg = 1 tab(s), Oral, q8hr, Refills(s) 0 Start Date: 02/07/24 Status: Ordered Start: 01-21-2024 take 1 tablet by yvon th once daily tiZANidine (Zanaflex) 4 MG tablet [...] bedtime for 30 days Vitamin B Complex (3 sources) take 1 tablet by yvon th in the morning vitamin B complex (B COMPLEX 1 ORAL) Take 1 tablet by mouth in the morning. Active take 1 tablet by mouth in the mo rning vitamin B complex (B COMPLEX 1 ORAL) Take 1 tablet by mouth in the morning. 0 Active take 1 tablet by mouth in the mo rning vitamin B complex (B COMPLEX 1 ORAL) Take 1 tablet by mouth in the morning. 0 Vitamin B Complex oral capsule (1 source) [...] Drug Class(es) Dates Sig (Normalized) Sig (Original) calcium chloride 0.0014 meq/ml / potassium chloride 0.004 meq/ml / sodium chloride 0.103 meq/ml / sodium lactate 0.028 meq/ml injectable solution (1 source) Start: 07-07-2023 End: 07-07-2023 lactated ringers infusion cefTRIAXone (1 source) Cephalosporin Antibacterial Start: 12-17-2016 Rocephin 500 mg Nov, 500 mg 1 ml fentaNYL 0.05 mg/ml injection (1 source) Opioid Agonist Start: 07-07-2023 End: 07-07-2023 fentaNYL (SUBLIMAZE) injection 50 mcg 0.5 ml HYDROmorphone hydrochloride 1 mg/ml prefilled syringe (1 source) Opioid Agonist Start: 07-07-2023 End: 07-07-2023 HYDROmorphone (PF) (DILAUDID) injection 0.5 mg 1 ml meperidine hydrochloride 50 mg/ml injection (1 source) Opioid Agonist Start: 07-07-2023 End: 07-07-2023 meperidine (DEMEROL) injection 12.5 mg Naloxone (1 source) Opioid Antagonist Start: 07-07-2023 End: 07-07-2023 naloxone (NARCAN) injection 0.1 mg 2 ml ondansetron 2 mg/ml injection (1 source) Serotonin-3 Receptor Antagonist Start: 07-07-2023 End: 07-07-2023 ondansetron (PF) (ZOFRAN) injection 4 mg oxyCODONE hydrochloride 5 mg oral tablet [...] Weight Dosing Start Date: 06/17/20 Status: Ordered tranexamic acid 650 mg oral tablet (2 sources) Antifibrinolytic Agent Start: 07-07-2023 End: 07-07-2023 tranexamic acid (LYSTEDA) tablet 1,950 mg Problems Active Problems Problem Classification Problem Date [...] in adult] Onset: 01-21-2024 01-21-2024 Chronic Other nutritional; endocrine; and metabolic disorders (2 sources) Obesity caused by energy imbalance; Translations: [Morbid (severe) obesity due to excess calories] 10-25-2024 Chronic Other upper respiratory disease (20 sources) Allergic rhinitis; Translations: [Allergic rhinitis, unspecified] Onset: 01-11-2023 01-11-2023 Chronic Other upper respiratory infections (4 sources) Acute pharyngitis; Translations: [Acute pharyngitis, unspecified] 02-17-2024 Episodic Peripheral and visceral atherosclerosis (20 sources) Atherosclerosis [...] in right hip] Onset: 07-29-2023 07-29-2023 Episodic Spondylosis; intervertebral disc disorders; other back problems (20 sources) Muscle spasm of back; Translations: [Radiculopathy, lumbar region] Onset: 05-01-2022 Episodic Unclassified (1 source) LOW BACK PAIN, UNSPECIFIED; Translations: [LOW BACK PAIN, UNSPECIFIED] Onset: 07-23-2022 Results Test Name Value Interpretation Reference Range Facility XR Hip - left 3 Viewson 05-0 Imaging Result: 10/30/2024: : AP and lateral of left hip showed acceptable position and alignment of left total hip arthroplasty. There was no evidence of loosening of the acetabular cup or femoral stem. Femoral head was well centered in the acetabular liner without evidence of asymmetric or accelerated wear. Small avulsion of greater trochanter noted but appears chronic. There was no gross evidence of fracture and/or dislocation. Impression: Unremarkable left total hip arthroplasty. 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 N[facility] [place] [facility] Study observation (narrative) [facility] - Hematology and Cell countson 10-25-2024 HbA1c (Bld) [Mass fraction] 5.8 % [facility] [place] No Panel Informationon 10-25 [facility] MR LUMBAR SPINE WO CONTRASTo n 07-06-2024 [...] BY: Clark Landeros, DO Normal Not Available [facility] US LOWER EXTREMITY MEGHNA RIAL DUPLEX BILATERALon 06-22-2024 [facility] US LOWER EXTREMITY ARTERIAL DUPLEX BILATERAL EXAM: [...] Location: Velocity/Waveform Location: Velocity/Waveform THIGH: THIGH: R HEAVY ANTIARMOR WEAPONS INFANTRYMAN: 165 T L HEAVY ANTIARMOR WEAPONS INFANTRYMAN: 119 T R SFA PROX: 101 T L SFA PROX: 121 T R SFA MID: 96 T L SFA MID 103 T R SFA DIST: 104 T L SFA DIST: 81 T R POP A: 54 T L POP A: 65 T CALF: CALF: R KAMERON: 111 T L KAMERON: 80 T R BIOMASS PLANT MANAGER PROX: 105 T L BIOMASS PLANT MANAGER PROX: 123 T R BIOMASS PLANT MANAGER MID: 139 T L BIOMASS PLANT MANAGER MID: 125 T R BIOMASS PLANT MANAGER DIST: 129 T L BIOMASS PLANT MANAGER DIST: 151 T R SALINAS: 105 B L SALINAS: 76 T IMPRESSION: No significant findings. Mild plaque in the right common femoral artery with less than 50% stenosis. *This report is generated using voice recognition reporting ([employer]). On occasion [employer] erroneously drops words from the report or [...] Comment on above: Performed By: #### 1 405, [id number] #### [facility] [address] [place] [address] Weld Inspector: Katarzyna Khan #### [phone], [id number], 496 #### [facility] [address], [address] [place], [place] [id number] Weld Inspector: Casey Chi MD Hematocrit (Bld) [Volume fraction] 37.3 % Low 38.5-50.0 [facility] Comment on above: Performed By: #### 1 474, [id number] #### [facility] [place] [address] Weld Inspector: Katarzyna Khan #### [phone], 2600, 496 #### [facility] [address] , [address] [place] [address] Weld Inspector: Casey Chi MD Hemoglobin (Bld) [Mass/Vol] 12.0 g/dL Low 13.2-17.1 [facility] Comment on above: Performed By: #### 1 759, 45136 #### [facility] [address] [place] [address] Weld Inspector: Katarzyna Khan #### [phone], [phone], 496 #### [facility] [address] , [address] [place] [address] Weld Inspector: Casey Chi MD MCH (RBC) [Entitic mass] 28.0 pg Normal 27.0-33.0 [facility] Comment on above: Performed By: #### 1 759, 80218 #### [facility] Weld Inspector: Katarzyna Khan #### [phone], 1240, 496 #### [facility] [address] , [address] [place] [address] Weld Inspector: Casey Chi MD MCHC (RBC) [Mass/Vol] 32.2 [...] clinical condition. Performed By: #### 1 759, 27112 #### [facility] [address] [place] [address] Weld Inspector: Katarzyna Khan #### [phone], 9510, 496 #### [facility] [address], [address] [place], [place] [phone] Weld Inspector: Casey Chi MD MCV (RBC) [Entitic vol] 86.9 fL Normal 80.0-100.0 [facility] Comment on above: Performed By: #### 1 759, 32284 #### [facility] [address] [place] [address] Weld Inspector: Katarzyna Khan #### [phone], 7600, 496 #### [facility] [address], [address] [place] [address] Weld Inspector: Casey Chi MD Platelet mean volume (Bld) [Entitic vol] 9.1 fL Normal 7.5-12.5 [facility] Comment on above: Performed By: #### 1 759, 26867 #### [facility] [address] [place] [address] Weld Inspector: Katarzyna Khan #### [phone], 7600, 496 #### [facility] [address], [address] [place] [address] Weld Inspector: Casey Chi MD Platelets (Bld) [#/Vol] 242 10*3/uL Normal 140-400 [facility] Comment on above: Performed By: #### 1 759, 48039 #### [facility] [place] [address] Weld Inspector: Katarzyna Khan #### [phone], 7600, 496 #### [facility] [address], [address] [place] [address] Weld Inspector: Casey Chi MD RBC (Bld) [#/Vol] 4.29 10*6/uL Normal 4.20-5.80 [facility] Comment on above: Performed By: #### 1 759, 59839 #### [facility] [address] [place] [address] Weld Inspector: Katarzyna Khan #### [phone], 7600, 496 #### [facility] [address], [address] [place] [address] Weld Inspector: Casey Chi MD WBC (Bld) [#/Vol] 7.7 10*3/uL Normal 3.8-10.8 [facility] Comment on above: Performed By: #### 1 759, 21217 #### [facility] [address] [place], [place] [id number] Weld Inspector: Katarzyna Khan #### [phone], 7600, 496 #### [facility] [address], [address] [place] [address] Weld Inspector: Casey Chi MD [facility] METABOLIC [facility] 06-15-2024 Albumin [Mass/Vol] 3.9 g/dL Normal 3.6-5.1 [facility] Comment on above: Performed By: #### 1 759, 97760 #### [facility] [address] [place] [address] Weld Inspector: Katarzyna Khan #### [phone], 7600, 496 #### [facility] [address], [address] [place] [address] Weld Inspector: Casey Chi MD Albumin/Globulin [Mass ratio] 1.5 {ratio} Normal 1.0-2.5 [facility] Comment on above: Performed By: #### 1 759, 67376 #### [facility] [address] [place] [address] Weld Inspector: Katarzyna Khan #### [phone], 7600, 496 #### [facility] [address], [address] [place] [address] Weld Inspector: Casey Chi MD ALP [Catalytic activity/Vol] 71 U/L Normal 35-144 [facility] Comment on above: Performed By: #### 1 759, 96831 #### [facility] [address] [place] [address] Weld Inspector: Katarzyna Khan #### [phone], 7600, 496 #### [facility] [address], [address] [place] [address] Weld Inspector: Casey Chi MD ALT [Catalytic activity/Vol] 18 U/L Normal 9-46 [facility] Comment on above: Performed By: #### 1 759, 60287 #### [facility] [address] [place], [place] [id number] Weld Inspector: Katarzyna Khan #### 5363, 7600, 496 #### [facility] [address] [place] [address], [address] [place] [address] Weld Inspector: Casey Chi MD AST [Catalytic activity/Vol] 18 U/L Normal 10-35 [facility] Comment on above: Performed By: #### 1 759, 97758 #### [facility] [address] [place] [address] Weld Inspector: Katarzyna Khan #### 5363, 7600, 496 #### [facility] [address] [place] [address], [address] [place] [address] Weld Inspector: Casey Chi MD Bilirubin [Mass/Vol] 0.6 mg/dL Normal 0.2-1.2 [facility] Comment on above: Performed By: #### 1 759, 04584 #### [facility] [address] [place] [address] Weld Inspector: Katarzyna Khan #### [phone], 7600, 496 #### [facility] [address], [address] [place] [address] Weld Inspector: Casey Chi MD BUN/CREATININE RATIO SEE NOTE: Normal 6-22 [facility] Comment on above: Result Comment: Not Reported: BUN and Creatinine are within reference range. Performed By: #### 1 759, 54788 #### [facility] [address] [place] [address] Weld Inspector: Katarzyna Khan #### 5363, 7600, 496 #### [facility] [address] [facility], [address] [place] [address] Weld Inspector: Casey Chi MD Calcium [Mass/Vol] 9.2 mg/dL Normal 8.6-10.3 [facility] Comment on above: Performed By: #### 1 759, 63703 #### [facility] [address] [place], [place] [id number] Weld Inspector: Katarzyna Khan #### 5363, 7600, 496 #### [facility] [address] , [address] [place], [place] [phone] Weld Inspector: Casey Chi MD Chloride [Moles/Vol] 105 mmol/L Normal 98-110 [facility] Comment on above: Performed By: #### 1 759, 03552 #### [facility] [address] [place] [address] Weld Inspector: Katarzyna Khan #### 5363, 7600, 496 #### [facility] [address], [address] [place], [place] [phone] Weld Inspector: Casey Chi MD CO2 [Moles/Vol] 26 mmol/L Normal 20-32 [facility] Comment on above: Performed By: #### 1 759, 67299 #### [facility] [address] [place] [address] Weld Inspector: Katarzyna Khan #### 5363, 7600, 496 #### [facility] [address], [address] [place], [place] [phone] Weld Inspector: Casey Chi MD Creatinine [Mass/Vol] 0.82 mg/dL Normal 0.70-1.28 [facility] Comment on above: Performed By: #### 1 759, 90599 #### [facility] [address] [place] [address] Weld Inspector: Katarzyna Khan #### 5363, 7600, 496 #### [facility] [address] [facility], [address] [place], [place] [phone] Weld Inspector: Casey Chi MD GFR/1.73 sq M.predicted among non-blacks MDRD (S/P/Bld) [Vol rate/Area] 94 mL/min/{1.73_m2} Normal > OR = 60 [facility] Comment on above: Performed By: #### 1 759, 80087 #### [facility] [address] [place], [place] [phone] Weld Inspector: Katarzyna Khan #### 5363, 7600, 496 #### [facility] [address], [address] [place] [address] Weld Inspector: Casey Chi MD Globulin (S) [Mass/Vol] 2.6 g/dL Normal 1.9-3.7 [facility] Comment on above: Performed By: #### 1 759, 74311 #### [facility] [address] [place], [place] [phone] Weld Inspector: Katarzyna Khan #### 5363, 7600, 496 #### [facility] [place] [address] Weld Inspector: Casey Chi MD Glucose [Mass/Vol] 106 mg/dL High 65-99 [facility] Comment on above: Result Comment: Fasting reference interval For someone without known diabetes, a glucose value between 100 and 125 mg/dL is consistent with prediabetes and should be confirmed with a follow-up test. Performed By: #### 1 759, 06052 #### [facility] [address] Weld Inspector: Katarzyna Khan #### [phone], 7600, 496 #### [facility] [address], [address] [place] [address] Weld Inspector: Casey Chi MD Potassium [Moles/Vol] 4.1 mmol/L Normal 3.5-5.3 [facility] Comment on above: Performed By: #### 1 759, 19831 #### [facility] [address] [place], [place] [phone] Weld Inspector: Katarzyna Khan #### 5363, 7600, 496 #### [facility] [address], [address] [place] [address] Weld Inspector: Casey Chi MD Protein [Mass/Vol] 6.5 g/dL Normal 6.1-8.1 [facility] Comment on above: Performed By: #### 1 759, 55674 #### [facility] [address] [place] [address] Weld Inspector: Katarzyna Khan #### 5363, 7600, 496 #### [facility] [address], [address] [place], [place] [phone] Weld Inspector: Casey Chi MD Sodium [Moles/Vol] 139 mmol/L Normal 135-146 [facility] Comment on above: Performed By: #### 1 759, 74944 #### [facility] [address] [place] [address] Weld Inspector: Katarzyna Khan #### 5363, 7600, 496 #### [facility] [address], [address] [place] [address] Weld Inspector: Casey Chi MD Urea nitrogen [Mass/Vol] 16 mg/dL Normal 7-25 [facility] Comment on above: Performed By: #### 1 759, [id number] #### [facility] [address] [place] [phone] Weld Inspector: Katarzyna Khan #### 5363, 7600, 496 #### [facility] [address], [address] [place] [address] Weld Inspector: Casey Chi MD HEMOGLOBIN A1con 06-15-2024 HEMOGLOBIN [...] diagnosis of diabetes in children. According to [place] Diabetes Association (ADA) guidelines, hemoglobin A1c <7.0% represents optimal control in non- diabetic patients. Different metrics may apply to specific patient populations. Standards of Medical Care in Diabetes(ADA). Performed By: #### 1 759, 57359 #### [facility] [address] [place], [place] [id number] Weld Inspector: Katarzyna Khan #### 5363, 7600, 496 #### [facility] [address] [place] [address], [address] [place] [address] Weld Inspector: Casey Chi MD LIPID PANEL, [address] Cholesterol [Mass/Vol] 172 mg/dL Normal <200 [facility] Comment on above: Order Comment: FASTI NG:YES FASTING: YES Performed By: #### 1 759, 22507 #### [facility] [address] [place], [place] [id number] Weld Inspector: Katarzyna Khan #### 5363, 7600, 496 #### [facility] [address], [address] [place] [address] Weld Inspector: Casey Chi MD Cholesterol in HDL [Mass/Vol] 32 mg/dL Low > OR = 40 [facility] Comment on above: Order Comment: FASTI NG:YES FASTING: YES Performed By: #### 1 759, 56753 #### [facility] [address] [place], [place] [phone] Weld Inspector: Katarzyna Khan #### 5363, 7600, 496 #### [facility] [address], [address] [place] [address] Weld Inspector: Casey Chi MD Cholesterol in LDL [Mass/Vol] [...] LDL-C. Humberto SS et al. LULU. 2013;310(19): 1883-4837 (http://education.[facility].com/faq/OJE267) Performed By: #### 1 759, 11442 #### [facility] [address] [place] [address] Weld Inspector: Katarzyna Khan #### 5363, 7600, 496 #### [facility] [address] [place] [address], [address] [place] [address] Weld Inspector: Casey Chi MD Cholesterol.total/ Cholesterol in HDL [Mass ratio] 5.4 {ratio} High <5.0 [facility] Comment on above: Order Comment: FASTI NG:YES FASTING: YES Performed By: #### 1 759, 75940 #### [facility] [address] [place], [place] [id number] Weld Inspector: Katarzyna Khan #### 5363, 7600, 496 #### [facility] [address], [address] [place] [address] Weld Inspector: Casey Chi MD NON HDL CHOLESTEROL 140 mg/dL (calc) High <130 [facility] Comment on above: Order Comment: FASTI NG:YES FASTING: YES Result Comment: For patients with diabetes plus 1 major ASCVD risk factor, treating to a non-HDL-C goal of <100 mg/dL (LDL-C of <70 mg/dL) is considered a therapeutic option. Performed By: #### 1 759, 25714 #### [facility] [address] [place], [place] [id number] Weld Inspector: Katarzyna Khan #### 5363, 7600, 496 #### [facility] [address], [address] [place] [address] Weld Inspector: Casey Chi MD Triglyceride [Mass/Vol] 299 mg/dL High <150 [facility] Comment on above: Order Comment: FASTI NG:YES FASTING: YES Result Comment: If a non-fasting specimen was collected, consider repeat triglyceride testing on a fasting specimen if clinically indicated. Fabiola et al. J. of Clin. Lipidol. 2015;9:129-169. Performed By: #### 1 759, 28775 #### [facility] [address] [place] [phone] Weld Inspector: Katarzyna Khan #### 5363, 7600, 496 #### [facility] [address], [address] [place], [place] [phone] Weld Inspector: Casey Chi MD PSA, TOTALon 06-15-2024 PSA, TOTAL 0.43 ng/mL Normal < OR = 4.00 [employer] Comment on above: Result Comment: The total PSA value from this assay system is standardized against the WHO standard. The test result will be approximately 20% lower when compared to the equimolar-standardized total PSA (Dee Dee Fulda). Comparison of serial PSA results should be interpreted with this fact in mind. This test was performed using the Siemens chemiluminescent method. Values obtained from different assay methods cannot be used interchangeably. PSA levels, regardless of value, should not be interpreted as absolute evidence of the presence or absence of disease. Performed By: #### 1 759, 36331 #### [facility] [address] [place] [phone] Weld Inspector: Katarzyna Khan #### 5363, 7600, 496 #### [facility] [address], [address] [place], [place] [phone] Weld Inspector: Casey Chi MD XR Hip - left [...] Unremarkable left total hip arthroplasty. 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 Impression: Arthritis of the left hip Amauri Blair D.O. [facility] [employer] XR Hip - left 3 Viewson 03-28 Radiology Study observation (narrative) [facility] BASIC METABOLIC PANLon 04-04 Anion gap [Moles/Vol] 9 mmol/L Normal 5-[address] [facility] Comment on above: Performed By: #### C BCA, BMP #### [facility] ([id number]) [address], [address] [place] [address] Calcium [Mass/Vol] 9.8 mg/dL Normal 8.5-10.5 [facility] Comment on above: Performed By: #### C BCA, BMP #### [facility] ([id number]) [address], [address] [place] [address] Chloride [Moles/Vol] 103 mmol/L Normal 98-[address] [facility] Comment on above: Performed By: #### C BCA, BMP #### [facility] ([id number]) [address], [address] [place] [address] CO2 [Moles/Vol] 27 mmol/L Normal 22-32 [facility] Comment on above: Performed By: #### C BCA, BMP #### [facility] ([id number]) [address], [address] [place] [address] Creatinine [Mass/Vol] 0.89 mg/dL Normal 0.60-1.[address] [facility] Comment on above: Result Comment: METH OD TRACEABLE TO IDMS STANDARD Performed By: #### C BCA, BMP #### [facility] ([id number]) [address], [address] [place] [address] eGFR (CKD-EPI) NON-RACE DEPENDENT >90 Normal >59 [facility] Comment on above: Result Comment: Reported eGFR is based on the CKD-EPI 2020 equation that does not use a race coefficient. Performed By: #### C BCA, BMP #### [facility] ([id number]) [address], [address] [place] [address] Glucose [Mass/Vol] 101 mg/dL High 65-99 [facility] Comment on above: Performed By: #### C BCA, BMP #### [facility] ([id number]) [address], [address] [place] [address] Potassium [Moles/Vol] 4.1 mmol/L Normal 3.5-5.[address] [facility] Comment on above: Performed By: #### C BCA, BMP #### [facility] ([id number]) [address], [address] [place] [address] Sodium [Moles/Vol] 139 mmol/L Normal 134-146 [facility] Comment on above: Performed By: #### C BCA, BMP #### [facility] ([id number]) [address] [address] [place] [address] Urea nitrogen [Mass/Vol] 19 mg/dL Normal 5-[address] [facility] Comment on above: Performed By: #### C BCA, BMP #### [facility] ([id number]) [address], [address] [place] [address] Basic Metabolic Panelon 10-0 Anion gap [Moles/Vol] 9 mmol/L 5 - 15 mmol/L [facility] Calcium [Mass/Vol] 9.8 mg/dL 8.5 - 10. 5 mg/dL [facility] Chloride [Moles/Vol] 103 mmol/L 98 - 109 mmol/L [facility] CO2 [Moles/Vol] 27 mmol/L 22 - 32 mmol/L [facility] Creatinine [Mass/Vol] 0.89 mg/dL 0.60 - 1.30 mg/dL [facility] Comment on above: METHOD TRACEABLE TO IDPR STANDARD eGFR (CKD-EPI)non-race dependent - PINF [facility] Comment on above: Reported eGFR is based on the CKD-EPI 2020 equation that does not use a race coefficient. Glucose [Mass/Vol] 101 mg/dL High 65 - 99 mg/dL [facility] Interpretation and review of laboratory results Abnormal [facility] Potassium [Moles/Vol] 4.1 mmol/L 3.5 - 5.0 mmol/L [facility] Sodium [Moles/Vol] 139 mmol/L 134 - 146 mmol/L [facility] Urea nitrogen [Mass/Vol] 19 mg/dL 5 - 27 mg/dL [facility] CBC AND AUTO DIFFon 04-04-20 ABSOLUTE BASOPHIL 0.0 X10E9/L Normal 0.0-0.2 [facility] Comment on above: Performed By: #### C BCA, BMP #### [facility] ([id number]) [address] [place] [address], [address] [place] [address] ABSOLUTE NEUTROPHIL 4.6 X10E9/L Normal 1.5-6.[address] [facility] Comment on above: Performed By: #### Manuela BCA, BMP #### [facility] ([id number]) [address] [place] [address], [address] [place] [address] Basophils/100 WBC (Bld) 0.4 % Normal [facility] Comment on above: Performed By: #### Manuela BCA, BMP #### [facility] ([id number]) [address] [place] [address], [address] [place] [address] Eosinophils (Bld) [#/Vol] 0.1 10*3/uL Normal 0.0-0.[address] [facility] Comment on above: Performed By: #### Manuela BCA, BMP #### [facility] ([id number]) [address], [address] [place] [address] Eosinophils/100 WBC (Bld) 1.8 % Normal [facility] Comment on above: Performed By: #### C SHERITA, BMP #### [facility] ([id number]) [address], [address] [place] [address] Erythrocyte distribution width (RBC) [Ratio] 15.1 % High 11.5-15.[address] [facility] Comment on above: Performed By: #### C SHERITA, BMP #### [facility] ([id number]) [address], [address] [place] [address] Hematocrit (Bld) [Volume fraction] 36.7 % Low 39-49 [facility] Comment on above: Performed By: #### C SHERITA, BMP #### [facility] ([id number]) [address], [address] [place] [address] Hemoglobin (Bld) [Mass/Vol] 12.5 g/dL Low 13.0-17.[address] [facility] Comment on above: Performed By: #### C SHERITA, BMP #### [facility] ([id number]) [address], [address] [place] [address] Lymphocytes (Bld) [#/Vol] 1.4 10*3/uL Normal 1.0-3.[address] [facility] Comment on above: Performed By: #### C SHERITA, BMP #### [facility] ([id number]) [address], [address] [place] [address] Lymphocytes/100 WBC (Bld) 21.3 % Normal [facility] Comment on above: Performed By: #### C SHERITA, BMP #### [facility] ([id number]) [address], [address] [place] [address] MCH (RBC) [Entitic mass] 30.1 pg Normal 27-[address] [facility] Comment on above: Performed By: #### C SHERITA, BMP #### [facility] ([id number]) [address], [address] [place] [address] MCHC (RBC) [Mass/Vol] 34.0 g/dL Normal 32-[address] [facility] Comment on above: Performed By: #### C SHERITA, BMP #### [facility] ([id number]) [address], [address] [place] [address] MCV (RBC) [Entitic vol] 89 fL Normal 80-[address] [facility] Comment on above: Performed By: #### C SHERITA, BMP #### [facility] ([id number]) [address], [address] [place] [address] Monocytes (Bld) [#/Vol] 0.6 10*3/uL Normal 0-0.[address] [facility] Comment on above: Performed By: #### C SHERITA, BMP #### [facility] ([id number]) [address], [address] [place] [address] Monocytes/100 WBC (Bld) 8.6 % Normal [facility] Comment on above: Performed By: #### C SHERITA, BMP #### [facility] ([id number]) [address], [address] [place] [address] Neutrophils/100 WBC (Bld) 67.9 % Normal [facility] Comment on above: Performed By: #### C SHERITA, BMP #### [facility] ([id number]) [address], [address] [place] [address] Platelet mean volume (Bld) [Entitic vol] 8.0 fL Normal 7-[address] [facility] Comment on above: Performed By: #### C SHERITA, BMP #### [facility] ([id number]) [address], [address] [place] [address] Platelets (Bld) [#/Vol] 205 10*3/uL Normal 150-[address] [facility] Comment on above: Performed By: #### Manuela MAGALLON, BMP #### [facility] ([id number]) [address], [address] [place] [address] RBC COUNT 4.14 X10E12/L Normal 4.10-5.70 [facility] Comment on above: Performed By: #### Manuela MAGALLON, BMP #### [facility] ([id number]) [address], [address] [place] [address] WBC (Bld) [#/Vol] 6.7 10*3/uL Normal 4.0-11.0 [facility] Comment on above: Performed By: #### Manuela MAGALLON, BMP #### [facility] ([id number]) [address], [address] [place] [address] CBC auto differentialon 10-0 Basophils (Bld) [#/Vol] 0.0 10*3/uL [facility] Basophils/100 WBC (Bld) 0.4 % [facility] Eosinophils (Bld) [#/Vol] 0.1 10*3/uL [facility] Eosinophils/100 WBC (Bld) 1.8 % [facility] Erythrocyte distribution width (RBC) [Ratio] 15.1 % High 11.5 - 15.0 % [facility] Hematocrit (Bld) [Volume fraction] 36.7 % Low 39 - 49 % [facility] Hemoglobin (Bld) [Mass/Vol] 12.5 g/dL Low 13.0 - 17.0 g/dL [facility] Interpretation and review of laboratory results Abnormal [facility] Lymphocytes (Bld) [#/Vol] 1.4 10*3/uL [facility] Lymphocytes/100 WBC (Bld) 21.3 % [facility] MCH (RBC) [Entitic mass] 30.1 pg 27 - [address] [facility] MCHC (RBC) [Mass/Vol] 34.0 g/dL 32 - 36 g/dL [facility] MCV (RBC) [Entitic vol] 89 fL 80 - [address] [facility] Monocytes (Bld) [#/Vol] 0.6 10*3/uL [facility] Monocytes/100 WBC (Bld) 8.6 % [facility] Neutrophils (Bld) [#/Vol] 4.6 10*3/uL [facility] Neutrophils/100 WBC (Bld) 67.9 % [facility] Platelet mean volume (Bld) [Entitic vol] 8.0 fL 7 - [address] [facility] Platelets (Bld) [#/Vol] 205 10*3/uL [facility] RBC (Bld) [#/Vol] 4.14 10*6/uL [facility] WBC corrected for nucl RBC Auto (Bld) [#/Vol] 6.7 [facility] ECG 12 leadon 04-04-2024 TRACEMASTERVUE [facility] Ambulatory Visit Summaryon 0 02-07-2024 Ambulatory Visit Summary Ambulatory Visit Summary LAWSON VELA :1955 Visit Date:02/07/2024 Ambulatory Visit Instructions Your Diagnosis BPH with urinary obstruction OAB (overactive bladder) ED (erectile dysfunction) Your Care Team Attending Physician - PAMELA BAER, Mac Stpehenson Primary Care Physician - MARIBEL BAER, JAVAD Jiménez This Is Your Medications List finasteride (finasteride 5 mg Tab) solifenacin (Vesicare 10 mg Tab) tamsulosin (tamsulosin 0.4 mg Cap) Contact prescribing physician if questions or concerns acetaminophen (Tylenol Extra Strength 500 mg oral tablet) acetaminophen-hydroco done (Newport 325 mg-5 mg oral tablet) ascorbic acid [...] Lopez When: Where: [facility] [address] , [place] [address]- Medications What How Much When Instructions Unchanged [...] if questions or concerns Unchanged acetaminophen-hydroco done (Newport 325 mg-5 mg oral tablet) 1 Tablets [...] 50 ye (more content not included)... Normal [facility] Urology Office/Clinic Noteon 02-07-2024 Urology Office/Clinic [...] Mac Stephenson, URL [facility] [address] [place] [address]- Additional Instructions: 1 yr Patient Education Benign [...] tablet, 200 mg= 1 tab(s), Oral, q24hr Newport 325 mg-5 mg oral tablet, 1 tab(s), [...] 1 c (more content not included)... Normal [facility] [...] right total hip replacement Amauri Blair D.O. [facility] Radiology Study observation (narrative) [facility] XR Hip - right 3 ViewsOrdere d By: Charissa Blair [facility]2023 [facility] Rh Repeaton 07-07-2023 ABO B [facility] Rh Nom (Bld) Positive [facility] XR HIP RT 2-3 VIEWS W OR WO PELVISon 07-07-2023 XR HIP RT 2-3 VIEWS W OR WO PELVIS XR HIP RT 2-3 VIEWS W OR WO PELVIS XR HIP RT 2-3 VIEWS W OR WO PELVIS HISTORY: Hip replacement. COMPARISON: None. IMPRESSION: 1. Hip prosthesis noted without visible acute complication Finalized by Price Delcid MD on 07/07/2023 11:06 AM Normal [facility] XR Pelvis and Hip - right 2 Viewson 07-07-2023 XR HIP RT 2-3 VIEWS W OR WO PELVIS HISTORY: Hip replacement. COMPARISON: None. IMPRESSION: 1. Hip prosthesis noted without visible acute complication Finalized by Price Delcid MD on 07/07/2023 11:06 AM SECTPrice Monge MD - 07/07/2023 XR HIP RT 2-3 VIEWS W OR WO PELVIS HISTORY: Hip replacement. COMPARISON: None. IMPRESSION: 1. Hip prosthesis noted without visible acute complication Finalized by Price Delcid MD on 07/07/2023 11:06 AM [facility] Radiology Study observation (narrative) [facility] XR Pelvis and Hip - right 2 ViewsOrdered By: Price Delcid on 07-07-2023 [employer] Work Phone: CNOVon 04-13-2023 CNOV Office Visit (SPSLUH ) LAWSON VELA ([id number]) 1955 [facility] Date Time Provider Department 04/13/23 11:00 AM LAILA LEWIS [facility] During your visit today, we recorded [...] a week. Hydrocodone, Meloxicam Zanaflex, Lidocaine patches weekend caregiver Prior to ablation symptoms on left have [...] Self-harm Question 1 (more content not included)... [facility] XR lumbar spine 6V w bending on 12-17-2022 XR lumbar spine 6V w bending [facility] Main [employer] [address] [place] [address] XRay Report Signed Patient: Lawson Vela MR#: [id number] : 1955 Acct:[id number] Age/Sex: 67 / M ADM Date: 12/17/22 Loc: XD Room: Type: [facility] Attending Dr: Erica BEDOYAC Copies to: ANGELA Khan Ordering Provider: ANGELA [...] L5-S1. Impression dictated by: Lenny Cobian Jr., Belle12/17/2022 3:16 PM Dictation Location: [place] [address] Transcribed By: [facility] 12/17/22 1516 Dictated By: Lenny Cobian Jr DO 12/17/22 1514 Signed By: 12/17/22 1516 [facility] XR lumbar spine 6V w bending [facility] [employer] Other XR lumbar spine 6V w bending [facility] [employer] Other XR lumbar spine 6V w bending [address] [place] [address] [employer] Other XR lumbar spine 6V w bending [place] [id number] [employer] Other XR lumbar spine 6V w bending XRay Report [employer] Other XR lumbar spine 6V w bending Signed [employer] Other XR lumbar spine 6V w bending Patient: Lawson Vela MR#: [id number] [employer] Other XR lumbar spine 6V w bending : 1955 Acct:[id number] [employer] Other XR lumbar spine 6V w bending Age/Sex: 67 / M ADM Date: 12/17/22 [employer] Other XR lumbar spine 6V w bending Loc: XD Room: Type: [facility] [employer] Other XR lumbar spine 6V w bending Attending Dr: Erica BEDOYAC [employer] Other XR lumbar spine 6V w bending Copies to: AURELIANO KhanC [employer] Other XR lumbar spine 6V w bending Ordering Provider: Erica Xiong GROCERY CHECKER-C [employer] Other XR lumbar spine 6V w bending Date of Service: 12/17/22 [employer] Other XR lumbar spine 6V w bending XR/XR lumbar spine 6V w bending: M54.16 [employer] Other XR lumbar spine 6V w bending LUMBAR SPINE - 6 views [employer] Other XR lumbar spine 6V w bending CLINICAL HISTORY: Right leg pain and numbness that radiates to toes [employer] Other XR lumbar spine 6V w bending COMPARISON: None [employer] Other XR lumbar spine 6V w bending FINDINGS: Vertebral body heights appear maintained. Diffuse endplate and facet joint degenerative [employer] Other XR lumbar spine 6V w bending changes. Mild diffuse disc space narrowing with relative sparing of L5-S1. No pathological motion [employer] Other XR lumbar spine 6V w bending on flexion or extension views. Limited sidebending. [employer] Other XR lumbar spine 6V w bending XR/XR lumbar spine 6V w bending [employer] Other XR lumbar spine 6V w bending IMPRESSION: [employer] Other XR lumbar spine 6V w bending DEGENERATIVE CHANGES OF THE LUMBAR SPINE WITH MILD DIFFUSE DISC SPACE NARROWING WITH RELATIVE [employer] Other XR lumbar spine 6V w bending SPARING OF L5-S1. [employer] Other XR lumbar spine 6V w bending Impression dictated by: Lenny Cobian Jr. DFabioOFabio12/17/2022 3:16 PM [employer] Other XR lumbar spine 6V w bending Dictation Location: [place] [address] [employer] Other XR lumbar spine 6V w bending Transcribed By: ROMY 12/17/22 1516 [employer] Other XR lumbar spine 6V w bending Dictated By: Lenny Cobian Jr, DO 12/17/22 5404 [employer] Other XR lumbar spine 6V w bending Signed By: [employer] Other XR lumbar spine 6V w bending 12/17/22 6866 [employer] Other XR HIPS TRENT 3_4V WO PELVISon [...] KNAPP Date: 2022-11-13 13:07 Normal [facility] MRI Lumbar Spine w/oon 05-01 MRI [...] by YASMANY ARAYA on 05/01/2022 1217 Normal [facility] XR Orbits for MRIon 04-27-20 22 XR Orbits for MRI CLINICAL HISTORY: Prescreening for MRI. COMPARISON: None. RESULT: No radiopaque foreign bodies. No acute osseous findings. IMPRESSION: No radiopaque foreign bodies. Report reported and signed by Javad Dickens on 04/27/2022 1540 Normal [facility] XR Spine Lumbar 4+ Views*on 04-06-2022 XR [...] by Lenny Cook on 04/06/2022 1106 Normal [facility] [employer] Team Member Vital Signs Date Time Vital Sign Value Performing Clinician Facility 10-25-2024 10:57-0400 Body height 185.4 cm Javad Donato MD Work Phone: [facility] 10-25-2024 10:57-0400 Body mass index (BMI) [Ratio] 38.52 kg/m2 Javad Donato MD Work Phone: [facility] 10-25-2024 10:57-0400 Body weight 132.45 kg Javad Donato MD Work Phone: [facility] 10-25-2024 10:57-0400 Diastolic blood pressure 76 mm[Hg] Javad Donato MD Work Phone: [facility] 10-25-2024 10:57-0400 Heart rate 82 /min Javad Donato MD Work Phone: [facility] 10-25-2024 10:57-0400 SaO2% (BldA) [Mass fraction] 95 % Javad Donato MD Work Phone: [facility] 10-25-2024 10:57-0400 Systolic blood pressure 130 mm[Hg] Javad Donato MD Work Phone: [facility] 07-27-2024 10:26-0500 Body height 185.4 cm Alma Mcclendon PA Work Phone: [facility] 07-27-2024 10:26-0500 Body mass index (BMI) [Ratio] 38.34 kg/m2 Alma Mcclendon PA Work Phone: [facility] 07-27-2024 10:26-0500 Body temperature 97.5 [degF] Alma Mcclendon PA Work Phone: [facility] 07-27-2024 10:26-0500 Body weight 131.81 kg Alma Mcclendon PA Work Phone: [facility] 07-27-2024 10:26-0500 Diastolic blood pressure 74 mm[Hg] Alma Mcclendon PA Work Phone: [facility] 07-27-2024 10:26-0500 Heart rate 88 /min Alma Hemmer PA Work Phone: [facility] 07-27-2024 10:26-0500 Respiratory rate 18 /min Alma Hemmer PA Work Phone: [facility] 07-27-2024 10:26-0500 SaO2% (BldA) [Mass fraction] 95 % Alma Hemmer PA Work Phone: [facility] 07-27-2024 10:26-0500 Systolic blood pressure 128 mm[Hg] Alma Hemmer PA Work Phone: [facility] 06-14-2024 09:36-0500 Body height 185.4 cm Javad Donato MD Work Phone: [facility] 06-14-2024 09:36-0500 Body mass index (BMI) [Ratio] 37.6 kg/m2 Javad Donato MD Work Phone: [facility] 06-14-2024 09:36-0500 Body weight 129.28 kg Javad Donato MD Work Phone: [facility] 06-14-2024 09:36-0500 Diastolic blood pressure 70 mm[Hg] Javad Donato MD Work Phone: [facility] 06-14-2024 09:36-0500 Heart rate 98 /min Javad Donato MD Work Phone: [facility] 06-14-2024 09:36-0500 SaO2% (BldA) [Mass fraction] 97 % Javad Donato MD Work Phone: [facility] 06-14-2024 09:36-0500 Systolic blood pressure 126 mm[Hg] Javad Donato MD Work Phone: [facility] 04-17-2024 13:49-0400 Body height 185.4 cm Javad Donato MD Work Phone: [facility] 04-17-2024 13:49-0400 Body mass index (BMI) [Ratio] 37.6 kg/m2 Javad Donato MD Work Phone: [facility] 04-17-2024 13:49-0400 Body weight 129.28 kg Javad Donato MD Work Phone: [facility] 04-17-2024 13:49-0400 Diastolic blood pressure 68 mm[Hg] Javad Donato MD Work Phone: [facility] 04-17-2024 13:49-0400 Heart rate 96 /min Javad Donato MD Work Phone: [facility] 04-17-2024 13:49-0400 SaO2% (BldA) [Mass fraction] 98 % Javad Donato MD Work Phone: [facility] 04-17-2024 13:49-0400 Systolic blood pressure 128 mm[Hg] Javad Donato MD Work Phone: [facility] 04-06-2024 11:31-0400 Body height 185.4 cm Charissa Blair DO Work Phone: [facility] 04-06-2024 11:31-0400 Body mass index (BMI) [Ratio] 38.16 kg/m2 Charissa Blair DO Work Phone: [facility] 04-06-2024 11:31-0400 Body weight 131.18 kg Charissa Blair DO Work Phone: [facility] 04-04-2024 09:12-0400 Body height 185.4 cm Pmh [address] [facility] 04-04-2024 09:12-0400 Body mass index (BMI) [Ratio] 37.34 kg/m2 Pmh [address] [facility] 04-04-2024 09:12-0400 Body weight 128.37 kg Pmh [address] [facility] 02-17-2024 10:18-0400 Body height 185.4 cm Alma HERNANDEZ Work Phone: [facility] 02-17-2024 10:18-0400 Body mass index (BMI) [Ratio] 38.26 kg/m2 Alma HERNANDEZ Work Phone: [facility] 02-17-2024 10:18-0400 Body weight 131.54 kg Alma Castellanomer PA Work Phone: [facility] 02-17-2024 10:18-0400 Diastolic blood pressure 78 mm[Hg] Alma Castellanomer PA Work Phone: [facility] 02-17-2024 10:18-0400 Heart rate 82 /min Alma Castellanomer PA Work Phone: [facility] 02-17-2024 10:18-0400 SaO2% (BldA) [Mass fraction] 96 % Alma Castellanomer PA Work Phone: [facility] 02-17-2024 10:18-0400 Systolic blood pressure 136 mm[Hg] Alma Castellanomer PA Work Phone: [facility] 02-07-2024 10:23-0400 Blood Pressure Location Mac SANTIAGO [facility] [place] 02-07-2024 10:23-0400 Body temperature 98.6 [degF] Mac SANTIAGO [facility] 02-07-2024 10:23-0400 Diastolic blood pressure 82 mm[Hg] Mac SANTIAGO [facility] 02-07-2024 10:23-0400 Heart rate 75 /min Mac SANTIAGO [facility] 02-07-2024 10:23-0400 Respiratory rate 16 /min Mac SANTIAGO [facility] 02-07-2024 10:23-0400 Systolic blood pressure 132 mm[Hg] Mac SANTIAGO [facility] 07-07-2023 12:48-0500 Diastolic blood pressure 85 mm[Hg] Charissa Blair DO Work Phone: [facility] 07-07-2023 12:48-0500 Heart rate 88 /min Charissa Blair DO Work Phone: [facility] 07-07-2023 12:48-0500 Respiratory rate 22 /min Charissa Blair DO Work Phone: [facility] 07-07-2023 12:48-0500 SaO2% (BldA) [Mass fraction] 90 % Charissa Blair DO Work Phone: [facility] 07-07-2023 12:48-0500 Systolic blood pressure 134 mm[Hg] Charissa Blair DO Work Phone: [facility] 07-07-2023 10:35-0500 Body temperature 97.3 [degF] Charissa Blair DO Work Phone: [facility] 07-07-2023 06:25-0500 Body height 185.4 cm Charissa Blair DO Work Phone: [facility] 07-07-2023 06:25-0500 Body mass index (BMI) [Ratio] 36.41 kg/m2 Charissa Blair DO Work Phone: [facility] 07-07-2023 06:25-0500 Body weight 125.19 kg Charissa Blair DO Work Phone: [facility] 12-17-2022 13:00-0400 Body height 182.88 cm Erica Xiong Other [employer] Other 12-17-2022 13:00-0400 Body mass index (BMI) [Ratio] 38.51 kg/m2 Erica Xiong Other [employer] Other 12-17-2022 13:00-0400 Body weight 128.82 kg Erica Xiong Other [employer] Other 12-17-2022 13:00-0400 Diastolic blood pressure 88 mm[Hg] Erica Xiong Other [facility] [employer] Other 12-17-2022 13:00-0400 Systolic blood pressure 146 mm[Hg] Erica Tyrese Other [facility] [employer] Other 06-01-2022 11:29-0500 Blood Pressure Location Mac SANTIAGO [facility] 06-01-2022 11:29-0500 Diastolic blood pressure 76 mm[Hg] Mac SANTIAGO [facility] 06-01-2022 11:29-0500 Heart rate 70 /min Mac SANTIAGO [facility] 06-01-2022 11:29-0500 Respiratory rate 16 /min Mac SANTIAGO [facility] 06-01-2022 11:29-0500 Systolic blood pressure 128 mm[Hg] Mac SANTIAGO [facility] 02-16-2022 10:28-0400 Blood Pressure Location Macmichelle SANTIAGO [facility] 02-16-2022 10:28-0400 Diastolic blood pressure 84 mm[Hg] Mac SANTIAGO [facility] 02-16-2022 10:28-0400 Heart rate 68 /min Mac SANTIAGO [facility] 02-16-2022 10:28-0400 Respiratory rate 16 /min Mac SANTIAGO [facility] 02-16-2022 10:28-0400 Systolic blood pressure 136 mm[Hg] Mac PAMELA [facility] Encounters Encounter Date Encounter Type Care Provider Facility Start: 02-05-2025 ambulatory Mac SANTIAGO Facili ty:[facility] Start: 10-30-2024 End: 10-30-2024 Bamboo flowsheet Jose Hernández GROCERY CHECKER Work Phone: [facility] Start: 10-30-2024 End: 10-30-2024 Bamboo flowsheet Jose Hernández GROCERY CHECKER Work Phone: [facility] Start: 10-30-2024 End: 10-30-2024 Office outpatient visit 15 minutes Jose Hernández [employer]OC[employer] CHECKER Work Phone: [facility] Comment on above: S/P total left hip a rthroplasty (Primary Dx); Left hip pain Start: 10-30-2024 End: 10-30-2024 ambulatory JOSE HERNÁNDEZ Not Available Start: 10-25-2024 End: 10-25-2024 Bamboo flowsheet Javad Donato MD Work Phone: [facility] Start: 10-25-2024 End: 10-25-2024 Bamboo flowsheet Javad Donato MD Work Phone: [facility] Start: 10-25-2024 End: 10-25-2024 Office outpatient visit 25 minutes Javad Donato MD Work Phone: [facility] Comment on above: 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; IGT (impaired glucose tolerance); Class 2 severe obesity with serious comorbidity and body mass index (BMI) of 37.0 to 37.9 in adult, unspecified obesity type (CMS/HCC); Morbid (severe) obesity due to excess calories (CMS/HCC); Essential (primary) hypertension (CMS/HCC); Body mass index (BMI) 38.0-38.9, adult Start: 10-25-2024 End: 10-25-2024 ambulatory JAVAD DONATO Not Available Start: 09-21-2024 End: 09-26-2024 Telephone encounter Javad Donato MD Work Phone: [facility] Start: 07-31-2024 End: 07-31-2024 Bamboo flowsheet Jose Hernández GROCERY CHECKER Work Phone: [facility] Start: 07-31-2024 End: 07-31-2024 Bamboo flowsheet Jose Hernández GROCERY CHECKER Work Phone: [facility] Start: 07-31-2024 End: 07-31-2024 Postop follow up visit related to original px Jose Hernández [employer]OC[employer] CHECKER Work Phone: [facility] Comment on above: S/P total left hip a rthroplasty (Primary Dx) Start: 07-31-2024 End: 07-31-2024 ambulatory JOSE HERNÁNDEZ Not Available Start: 07-27-2024 End: 07-27-2024 Bamboo flowsheet Alma Mcclendon PA Work Phone: [facility] Start: 07-27-2024 End: 07-27-2024 Bamboo flowsheet Alma Mcclendon PA Work Phone: [facility] Start: 07-27-2024 End: 07-27-2024 Office outpatient visit 15 minutes Alma Mcclendon PA Work Phone: [facility] Comment on above: Acute non-recurrent frontal sinusitis (Primary Dx); Herniated lumbar disc without myelopathy Start: 07-27-2024 End: 07-27-2024 ambulatory ALMA MCCLENDON Not Available Start: 07-21-2024 End: 07-21-2024 ambulatory Jeanna Mendiola [employer] Work Phone: [facility] Comment on above: Left hip pain (Prima ry Dx); S/P total left hip arthroplasty Start: 07-14-2024 End: 07-14-2024 ambulatory Jeanna Mendiola [employer] Work Phone: [facility] Comment on above: Left hip pain (Prima ry Dx); S/P total left hip arthroplasty Start: 07-12-2024 End: 07-12-2024 Bamboo flowsheet Jeanna Mendiola [employer] Work Phone: [facility] Start: 07-12-2024 End: 07-12-2024 Bamboo flowsheet Jeanna Mendiola [employer] Work Phone: [facility] Start: 07-12-2024 End: 07-12-2024 ambulatory Jeanna Mendiola [employer] Work Phone: [facility] Comment on above: Left hip pain (Prima ry Dx); S/P total left hip arthroplasty Start: 07-07-2024 End: 07-07-2024 Bamboo flowsheet Jeanna Mendiola [employer] Work Phone: [facility] Start: 07-07-2024 End: 07-07-2024 Bamboo mike Mendiola [employer] Work Phone: [facility] Start: 07-07-2024 End: 07-07-2024 ambulatory Jeanna Mendiola [employer] Work Phone: [facility] Comment on above: Left hip pain (Prima ry Dx); S/P total left hip arthroplasty Start: 07-06-2024 End: 07-06-2024 ambulatory YOSEFMilton CHEEMA Not Available Start: 07-05-2024 End: 07-05-2024 ambulatory Jeanna Mendiola [employer] Work Phone: [facility] Comment on above: Left hip pain (Prima ry Dx); S/P total left hip arthroplasty Start: 07-03-2024 End: 07-03-2024 Bamboo flowsheet Jose Hernández GROCERY CHECKER Work Phone: [facility] Start: 07-03-2024 End: 07-03-2024 Bamboo flowsheet Jose Hernández GROCERY CHECKER Work Phone: [facility] Start: 07-03-2024 End: 07-03-2024 Postop follow up visit related to original px Jose Hernández GROCERY CHECKER Work Phone: [facility] Comment on above: S/P total left hip a rthroplasty (Primary Dx) Start: 07-03-2024 End: 07-03-2024 ambulatory JOSE HERNÁNDEZ Not Available Start: 06-30-2024 End: 06-30-2024 Bamboo flowsheet Jeanna Mendiola [employer] Work Phone: [facility] Start: 06-30-2024 End: 06-30-2024 Bamboo flowsheet Jeanna Mendiola [employer] Work Phone: [facility] Start: 06-30-2024 End: 06-30-2024 ambulatory Jeanna Mendiola [employer] Work Phone: [facility] Comment on above: Left hip pain (Prima ry Dx); S/P total left hip arthroplasty Start: 06-26-2024 End: 06-26-2024 Bamboo flowsheet Kailey Cleaningtersall [employer] [facility] Start: 06-26-2024 End: 06-26-2024 Bamboo flowsheet Kailey Cleaningtersall [employer] [facility] Start: 06-26-2024 End: 06-26-2024 ambulatory Kailey Goldman [employer] [facility] Comment on above: Left hip pain (Prima ry Dx); S/P total left hip arthroplasty Start: 06-22-2024 End: 06-22-2024 ambulatory JAVAD B MARIBEL Not Available Start: 06-20-2024 End: 06-20-2024 Bamboo flowsheet Nagi J Narendra PT Work Phone: [facility] Start: 06-20-2024 End: 06-20-2024 Bamboo flowsheet Nagi J Narendra PT Work Phone: [facility] Start: 06-20-2024 End: 06-20-2024 ambulatory Nagi J Narendra PT Work Phone: [facility] Comment [...] 06-12-2024 End: 06-12-2024 Bamboo flowsheet Jose Hernández GROCERY CHECKER Work Phone: [facility] Start: 06-12-2024 End: 06-12-2024 Bamboo flowsheet Jose Hernández GROCERY CHECKER Work Phone: [facility] Start: 06-12-2024 End: 06-12-2024 Postop follow up visit related to original px Jose Hernández GROCERY CHECKER Work Phone: [facility] Comment on above: S/P total [...] 05-08-2024 End: 05-08-2024 Telephone encounter Jose Hernández GROCERY CHECKER Work Phone: [facility] Start: 05-04-2024 End: 05-04-2024 Telephone encounter Charissa Blair DO Work Phone: [facility] Comment on above: Discharge Start: 05-03-2024 End: 05-03-2024 ambulatory CHARISSA BLAIR [facility] Start: 05-02-2024 End: 05-02-2024 Refill Jose Hernández GROCERY CHECKER Work Phone: [facility] Comment on [...] 04-06-2024 End: 04-06-2024 Bamboo flowsheet Jose Hernández GROCERY CHECKER Work Phone: [facility] Start: 04-06-2024 End: 04-06-2024 Bamboo flowsheet Jose Hernández GROCERY CHECKER Work Phone: [facility] Start: 04-06-2024 End: 04-06-2024 Office outpatient visit 40 minutes Charissa Blair DO Work Phone: [facility] Comment on above: Left hip pain; Arthritis of left hip Start: 04-06-2024 End: 04-06-2024 ambulatory CHARISSA BLAIR Not Available Start: 04-04-2024 End: 04-04-2024 Patient encounter procedure [facility] Pre-Admission Testing [address] [facility] - Pre Admit Comment on above: Preop examination (P rimary Dx); Hypertension, unspecified type Start: 04-04-2024 End: 04-04-2024 Preprocedural examination done Pm [address] [facility] Start: 04-04-2024 End: 04-04-2024 ambulatory CHARISSA BLAIR [facility] Start: 03-15-2024 End: 03-15-2024 Telephone encounter Nagi Plata PT Work Phone: [facility] Start: 02-17-2024 End: 02-17-2024 Office outpatient visit 15 minutes Alma Mcclendon PA Work Phone: [facility] Comment on above: Acute pharyngitis, u nspecified etiology (Primary Dx) Start: 02-17-2024 End: 02-17-2024 ambulatory ALMA Candelaria DANELLE Not Available Start: 02-07-2024 End: 02-07-2024 ambulatory Mac SANTIAGO Facility:[facility] Start: 02-07-2024 End: 02-07-2024 Patient encounter procedure Mac SANTIAGO [facility] Start: 01-27-2024 End: 01-27-2024 ambulatory CHARISSA BLAIR Not Available Start: 01-21-2024 End: 01-21-2024 ambulatory ALMA Candelaria DANELLE Not Available Start: 12-16-2023 End: 12-16-2023 ambulatory CHARISSA BLAIR Not Available Start: 12-13-2023 End: 12-13-2023 ambulatory JOSE HERNÁNDEZ Not Available Start: 08-09-2023 Bamboo flowsheet Jeanna Don ht [employer] Work Phone: [facility] Start: 08-09-2023 Bamboo flowsheet Jeanna Wrig ht [employer] Work Phone: [facility] Start: 08-09-2023 End: 08-09-2023 Postop follow up visit related to original px Jose Hernández GROC[employer] CHECKER Work Phone: [facility] Comment on above: 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; Status post right hip replacement Start: 08-09-2023 End: 08-09-2023 ambulatory Jeanna Mendiola [employer] Work Phone: [facility] Comment on above: Right hip pain (Prim billie Dx); Status post total hip replacement, right; Arthritis of right hip Start: 08-06-2023 End: 08-06-2023 ambulatory Jeanna Mendiola [employer] Work Phone: [facility] Comment on above: Right hip pain (Prim billie Dx); Status post total hip replacement, right; Arthritis of right hip Start: 08-02-2023 Bamboo flowsheet Jeanna Don ht [employer] Work Phone: [facility] Start: 08-02-2023 Bamboo flowsheet Jeanna Don ht [employer] Work Phone: [facility] Start: 08-02-2023 End: 08-02-2023 ambulatory Jeanna Mendiola [employer] Work Phone: [facility] Comment on above: Right hip pain (Prim billie Dx); Status post total hip replacement, right; Arthritis of right hip Start: 07-29-2023 End: 07-29-2023 ambulatory Nagi Plata PT Work Phone: [facility] Comment on above: Right hip pain (Prim billie Dx); Status post total hip replacement, right Start: 07-08-2023 End: 07-08-2023 ambulatory DEVIN SAUL [facility] Start: 07-07-2023 End: 07-08-2023 ambulatory [facility] Start: 07-07-2023 End: 07-07-2023 ambulatory [facility] Start: 07-07-2023 End: 07-07-2023 Subsequent hospital visit by physician Charissa Blair DO Work Phone: [facility] - Surgery Start: 07-05-2023 End: 07-05-2023 ambulatory [facility] Start: 07-05-2023 Encounter for other preprocedural examination [facility] Start: 04-13-2023 End: 04-13-2023 ambulatory LAILA LEWIS Facility:[facility] Start: 04-13-2023 End: 04-13-2023 Patient encounter procedure Laila Lewis PA-C Work Phone: [facility] Comment on above: Spinal stenosis, lum bar region with neurogenic claudication (Primary Dx); Bilateral hip joint arthritis Start: 01-28-2023 Chart abstracting Camron Mix MD Work Phone: Neurology Start: 12-17-2022 End: 12-17-2022 Patient encounter procedure II Javad Donato Work Phone: [facility] Work Phone: Start: 12-17-2022 End: 12-17-2022 ambulatory II Javad Donato Work Phone: [facility] Work Phone: Start: 12-17-2022 Encounter for other specified special examinations Erica Xiong [facility] Start: 12-17-2022 Office outpatient ne w 45 minutes Erica Xiong [facility] Start: 11-24-2022 End: 11-25-2022 ambulatory NARENDRANATH LAKSHMIPATHY . Facility:[facility] Start: 11-13-2022 End: 11-14-2022 ambulatory NARENDRANATH LAKSHMIPATHY . Facility:[facility] Start: 11-10-2022 End: 11-11-2022 ambulatory NARENDRANATH LAKSHMIPATHY . Facility:[facility] Start: 10-08-2022 End: 10-09-2022 ambulatory NARENDRANATH LAKSHMIPATHY . Facility:[facility] Start: 09-10-2022 End: 09-11-[address] ANTIONE HAWTHORNE . Facility:[facility] Start: 08-13-2022 Encounter for preprocedural cardiovascular examination DR ANTIONE HAWTHORNE . [facility] Start: 08-11-2022 End: 08-11-[address] ANTIONE [...] 06-01-2022 End: 06-01-2022 Patient encounter procedure Mac Stephenson PAMELA [facility] Start: 05-19-2022 End: 05-20-[address] ANTIONE HAWTHORNE . Facility:[facility] Start: 05-05-2022 End: 05-05-[address] ANTIONE HAWTHORNE . Facility:[facility] Start: 04-28-2022 End: 04-29-[address] ANTIONE HAWTHORNE . Facility:[facility] Start: 04-27-2022 End: 05-14-[address] JAVAD DONATO Facility:[facility] Start: 02-16-2022 End: 02-16-2022 Patient encounter procedure Mac SANTIAGO [facility] Procedures Date Procedure Procedure Detail Performing Clinician Start: 10-30-2024 Radex hip unilateral with pelvis 2-3 views Jose Hernández GROCERY CHECKER Work Phone: Start: 10-25-2024 Hemoglobin glycosyla angeles a1c Javad Donato MD Work Phone: Start: 06-12-2024 Radex hip unilateral with pelvis 2-3 views Jose Hernández GROCERY CHECKER Work Phone: Start: 04-06-2024 Radex hip unilateral with pelvis 2-3 views Charissa Blair DO Work Phone: Start: 08-09-2023 Radex hip unilateral with pelvis 2-3 views Jose Hernández NP Work Phone: Start: 07-07-2023 Radex hip unilateral with pelvis 2-3 views Charissa Blair DO Work Phone: Start: 07-07-2023 REPEATED ABORH Charissa Blair DO Work Phone: Start: 12-17-2022 X-ray of lumbar spin e, six views including bending views II Javad Donato Work Phone: Start: 04-22-2021 Urodynamic studies Patr alex PAMELA Start: 11-26-2020 Cystoscopy Mac KAPADIA Start: 07-12-2017 Colonoscopy Nagi Elena hernandez PT Work Phone: Start: 06-28-2009 Vasectomy Mac KAPADIA Start: 06-28-1966 Appendectomy Mac KAPADIA Carpal tunnel syndro me (disorder) Mac SANTIAGO Colonoscopy Mac SANTIAGO Repair of joint of r ight hip Mac SANTIAGO Plan of Treatment Date Care Activity Detail Author Start: 05-18-2033 DTaP,Tdap and Td Vaccines (2 - Td or Tdap) DTaP,Tdap and Td Vaccines (2 - Td or Tdap) [facility] Start: 07-12-2027 Screening for malign ant neoplasm of colon [facility] Start: 06-14-2025 Medicare Annual Wellness (AWV) Medicare Annual Wellness (AWV) [facility] Start: 04-30-2025 End: 04-30-2025 Patient encounter procedure 04/30/2025 8:00 AM EST Office Visit [facility] [address] [place] [address] Jose Hernández, YISEL [address] [place] [id number] [facility] Start: 04-26-2025 End: 04-26-2025 Patient encounter procedure 04/26/2025 9:00 AM EDT Office Visit [facility] [address] [place], [place] [address] Javad Donato MD [address] [place] [address] [facility] Start: 04-04-2025 Adult BMI Screening Adult BMI Screen ing [facility] Start: 04-04-2025 Tobacco Screening Tobacco Screening [facility] Start: 10-30-2024 End: 10-30-2024 Patient encounter procedure [facility] Comment on above: Left hip pain Start: 10-25-2024 End: 10-25-2024 Patient encounter procedure 10/25/2024 10:45 AM EDT Office Visit [facility] [address] [place], [place] [address] Javad Donato MD [address] [place] [address] Arrived [facility] Comment on above: Arrived Start: 10-23-2024 End: 10-23-2024 Patient encounter procedure 10/23/2024 10:00 AM EDT Office Visit [facility] [address] [place], [place] [address] Javad Donato MD [address] [place] [address] [facility] Start: 07-31-2024 End: 07-31-2024 Patient encounter procedure [facility] Comment on above: Arrived Start: 07-27-2024 End: 07-27-2024 Patient encounter procedure 07/27/2024 10:30 AM EST Office Visit [facility] [address] [place], [place] [address] Alma Mcclendon PA [address] [place] [address] Arrived [facility] Comment on above: Arrived Start: 07-21-2024 End: 07-21-2024 ambulatory 07/21/2024 7:30 AM EST Treatment [facility] [address] [place] [phone] Jeanna Mendiola, [employer] [address] [place] [address] [facility] Start: 07-14-2024 End: 07-14-2024 ambulatory [facility] Start: 07-12-2024 End: 07-12-2024 ambulatory [facility] Comment on above: Arrived Start: 07-07-2024 End: 07-07-2024 ambulatory 07/07/2024 7:30 AM EST Treatment [facility] [address] [place] [id number] Jeanna Mendiola, [employer] [address] [place] [address] [facility] Start: 07-06-2024 End: 07-06-2024 Professional / ancillary services management 07/06/2024 8:00 AM EST Ancillary Procedure [facility] [address] [place] [id number] [facility] Start: 07-05-2024 End: 07-05-2024 ambulatory 07/05/2024 7:30 AM EST Treatment [facility] [address] [place] [phone] Jeanna Mendiola, [employer]OMASS PLANT MANAGER [address] [place] [address] [facility] Start: 07-03-2024 End: 07-03-2024 Patient encounter procedure [facility] Comment on above: Arrived Start: 06-30-2024 End: 06-30-2024 ambulatory [facility] Comment on above: Arrived Start: 06-29-2024 End: 06-29-2024 ambulatory 06/29/2024 7:30 AM EST Treatment [facility] [address] [place] [address] Kailey Goldman, BRENT [facility] Start: 06-26-2024 End: 06-26-2024 ambulatory [facility] Comment on above: Arrived Start: 06-22-2024 End: 06-22-2024 Professional / ancillary services management 06/22/2024 3:15 PM EST Ancillary Procedure [facility] [address] [place] [phone] [facility] Start: 06-20-2024 End: 06-20-2024 ambulatory 06/20/2024 7:00 AM EST Evaluation [facility] [address] [address] Nagi Plata, PT [address] [place], [place] [phone] [facility] Start: 06-14-2024 End: 06-14-2025 CBC panel - Blood by Automated count CBC Lab Routine Benign essential hypertension (CMS/HCC) IGT (impaired glucose tolerance) Atherosclerosis of aorta (CMS/HCC) Class 2 severe obesity with serious comorbidity and body mass index (BMI) of 37.0 to 37.9 in adult, unspecified obesity type (CMS/HCC) Expected: 06/14/2024 (Approximate), Expires: 06/14/2025 [facility] Comment on above: Expected: 06/14/2024 (Approximate), [...] type (CMS/HCC) Expected: 06/14/2024 (Approximate), Expires: 06/14/2025 [facility] Comment on above: Expected: 06/14/2024 (Approximate), Expires: 06/14/2025 Start: 06-14-2024 End: 06-14-2025 Lipid 1996 panel - Serum or Plasma Lipid panel Lab Routine Benign essential hypertension (CMS/HCC) IGT (impaired glucose tolerance) Atherosclerosis of aorta (CMS/HCC) Class 2 severe obesity with serious comorbidity and body mass index (BMI) of 37.0 to 37.9 in adult, unspecified obesity type (CMS/HCC) Expected: 06/14/2024 (Approximate), Expires: 06/14/2025 [facility] Comment on above: Expected: 06/14/2024 (Approximate), Expires: 06/14/2025 Start: 06-14-2024 End: 06-14-2025 Prostate specific Ag [Mass/volume] in Serum or Plasma PSA Lab Routine Screening for prostate cancer Expected: 06/14/2024 (Approximate), Expires: 06/14/2025 [facility] Work Phone: Comment on above: Expected: 06/14/2024 (Approximate), Expires: 06/14/2025 Start: 06-14-2024 End: 06-14-2025 US.doppler Lower extremity artery - bilateral Vascular US lower extremity arterial duplex bilateral Imaging Routine Claudication (CMS/HCC) Expected: 06/14/2024, Expires: 06/14/2025 [facility] Comment on above: Expected: 06/14/2024 , Expires: 06/14/2025 Start: 06-14-2024 End: 06-14-2024 Patient encounter procedure [facility] Comment on above: Arrived Start: 06-12-2024 End: 06-12-2024 Patient encounter procedure [facility] Comment on above: Arrived Start: 05-17-2024 Medicare Annual Wellness (AWV) Medicare Annual Wellness (AWV) [facility] Start: 05-16-2024 End: 05-16-2024 Patient encounter procedure [facility] Comment on above: Arrived Start: 05-11-2024 End: 05-11-2024 Patient encounter procedure 05/11/2024 10:45 AM EST Office Visit [facility] [address] [facility] [place] [address] Charissa Blair, DO [address] [place] [address] [facility] Start: 05-09-2024 End: 05-09-2024 Patient encounter procedure 05/09/2024 10:30 AM EST Office Visit [facility] [address] [place] [address] Charissa Blair, DO [address] [facility] [address] [place] [address] [facility] Start: 05-03-2024 End: 05-03-2024 Admission to same day surgery center 05/03/2024 7:45 AM EST - 05/03/2024 10:[address] [facility] [address] [place] [address] Charissa Blair, DO [address] [facility] [address] [place] [address] REPLACEMENT TOTAL JOINT HIP [08059 (CPT )] [facility] Comment on above: REPLACEMENT TOTAL BEKA INT HIP [98881 (CPT )] Start: 05-03-2024 End: 05-03-2024 Arthrp acetblr/prox fem prostc agrft/algrft REPLACEMENT TOTAL JOINT HIP left hip degenerative joint disease 05/03/2024 7:45 AM EST [facility] Start: 05-03-2024 Subsequent hospital visit by physician 05/03/2024 7:45 AM EST Hospital Encounter [facility] Surgery [address] [place] [address] Charissa Blair, DO [address] [facility] [address] [place] [address] [facility] Start: 05-03-2024 End: 05-03-2024 Patient encounter procedure 05/03/2024 7:30 AM EST Procedure Visit [facility] Charissa Blair, DO [address] [facility] [address] [place] [address] [facility] Start: 04-24-2024 End: 03-06-2025 Crossmatch RBC Crossmatch RBC Blood Bank Routine Preop examination Hypertension, unspecified type Expected: 04/24/2024, Expires: 03/06/2025 [facility] [facility] Comment on above: Expected: 04/24/2024 , Expires: 03/06/2025 Start: 04-24-2024 End: 03-06-2025 Type and screen(includes indirect phill) Type and screen(includes indirect phill) Blood Bank Routine Preop examination Hypertension, unspecified type Expected: 04/24/2024, Expires: 03/06/2025 [employer] Work Phone: Comment on above: Expected: 04/24/2024 [...] [address] [place] [phone] Javad Donato MD [address] [place] [address] [facility] Start: 02-27-2024 Influenza vaccination [facility] Start: 09-20-2023 End: 09-20-2023 Patient encounter procedure 09/20/2023 10:30 AM EDT Office Visit [facility] [address] [place] [phone] Jose Hernández, GROCERY CHECKER [address] [place] [address] [facility] Start: 08-27-2023 End: 08-27-2023 ambulatory 08/27/2023 9:30 AM EST Treatment [facility] [address] [place] [phone] Nagi Plata, PT [address] [place] [address] [facility] Start: 08-23-2023 End: 08-23-2023 ambulatory 08/23/2023 9:30 AM EST Treatment [facility] [address] [place] [phone] Jeanna Mendiola, [employer] PL[employer] MANAGER [address] [place] [address] [facility] Start: 08-20-2023 End: 08-20-2023 ambulatory 08/20/2023 9:30 AM EST Treatment [facility] [address] [place] [phone] Jeanna Mendiola, [employer] PL[employer] MANAGER [address] [place] [address] [facility] Start: 08-16-2023 End: 08-16-2023 ambulatory 08/16/2023 9:30 AM EST Treatment [facility] [address] [place] [phone] Jeanna Mendiola, [employer] PLANT MANAGER [address] [place] [address] [facility] Start: 08-13-2023 End: 08-13-2023 ambulatory 08/13/2023 9:30 AM EST Treatment [facility] [address] [place] [phone] Nagi Plata, PT [address] [place] [address] [facility] Start: 08-09-2023 End: 08-09-2023 Patient encounter procedure 08/09/2023 1:00 PM EST Office Visit [facility] [address] [place] [phone] Jose Hernández, GROCERY CHECKER [address] [place] [address] [facility] Start: 08-09-2023 End: 08-09-2023 ambulatory [facility] Comment on above: Arrived Start: 08-06-2023 End: 08-06-2023 ambulatory 08/06/2023 9:30 AM EST Treatment [facility] [address] [place] [phone] Jeanna Mendiola, [employer] PLANT MANAGER [address] [place] [address] [facility] Start: 08-02-2023 End: 08-02-2023 ambulatory [facility] Comment on above: Arrived Start: 02-26-2023 Influenza vaccination C [facility] Start: 06-28-2022 ADVANCE DIRECTIVE DISCUSSION ADVANCE DIRECTIVE DISCUSSION [facility] Start: 06-28-2022 DEPRESSION ASSESSMENT DEPRESSION ASS ESSMENT [facility] Start: 2019 Abdominal aortic aneurysm screening Abdominal Aortic Aneurysm (AAA) Screen [facility] Start: 2019 Fall Risk Screening Fall Risk Screen ing [facility] Start: 2019 PNEUMOCOCCAL: 65+ (1 - PCV) PNEUMOCOCCAL: 65+ (1 - PCV) [facility] Start: 01-11-2016 Administration of varicella zoster vaccine Zoster (Shingles) Vaccine (2 of 3) [facility] Start: 07-08-2015 Shingrix Vaccine (2 of 3) Shingrix Vaccine (2 of 3) [facility] Start: 2014 RSV Vaccine (1 - 1-d ose 60+ series) RSV Vaccine (1 - 1-dose 60+ series) [facility] Start: 01-02-2004 SHINGRIX VACCINE (1 of 2) SHINGRIX VACCINE (1 of 2) [facility] Start: 1999 COLOGUARD (FIT-DNA) COLOGUARD (FIT-D NA) [facility] Start: 1999 Colonoscopy COLONOSCOPY [facility] Start: 1999 COLORECTAL CANCER SCREENING COLORECTAL CANCER SCREENING [facility] Start: [address] COLONOGRAPHY [facility] Start: 1999 DIABETES SCREEN DIABETES SCREEN [facility] Start: 1999 Diabetes Screening Diabetes Screenin g [facility] Start: 1999 FECAL OCCULT BLOOD FECAL OCCULT BLOO D [facility] Start: 1999 SIGMOIDOSCOPY SIGMOIDOSCOPY [facility] Start: 1989 Lipid 1996 panel - Serum or Plasma Lipid Screening [facility] Start: 1989 LIPID SCREEN LIPID SCREEN [facility] Start: 1973 Urine microalbumin profile [facility] Start: 01-02-1972 Adult BMI Follow Up Plan Adult BMI Follow Up Plan [facility] Start: 01-02-1972 HEPATITIS C SCREENING HEPATITIS C SC REENING [facility] Start: 1966 Depression Screening Depression Scre ening [facility] Start: 1954 COVID-19 VACCINE (#1) COVID-19 VACCI NE (#1) [facility] Start: 1954 Abdominal Aortic Aneurysm Screening Abdominal Aortic Aneurysm Screening [facility] Start: 1954 Medicare Annual Wellness Visit Medicare Annual Wellness Visit [facility] Start: 1954 Screening for malign ant neoplasm of colon [facility] End: 05-12-2024 XR HIP BILATERAL 5V PEL/AP/LAT EACH HIP XR HIP BILATERAL 5V PEL/AP/LAT EACH HIP Radiology Routine Bilateral hip joint arthritis 1 Occurrences starting 04/13/2023 until 05/12/2024 [facility] Work Phone: Comment on above: 1 Occurrences starti ng 04/13/2023 until 05/12/2024 [facility] Immunizations Immunization Date Immunization Notes Care Provider Estevan lucysilvana 06-14-2024 Influenza, High-dose Seasonal, Quadrivalent, Preservative Free Javad Donato MD Work Phone: [facility] 05-18-2023 RSV, recombinant, protein subunit RSVpreF, adjuvant reconstitu, 120mcg/0.5mL, PF (Arexvy) Nagi Narendra PT Work Phone: [facility] Work Phone: 05-18-2023 tetanus toxoid, redu sri diphtheria toxoid, and acellular pertussis vaccine, adsorbed Nagi Narendra PT Work Phone: [facility] 05-17-2023 Influenza, High-dose Seasonal, Quadrivalent, Preservative Free Nagi Narendra PT Work Phone: [facility] 05-17-2023 influenza virus vaccine, unspecified formulation Nagi Narendra PT Work Phone: [facility] 04-03-2022 influenza, high dose seasonal, preservative-free Nagi Narendra PT Work Phone: [facility] 04-03-2022 Influenza, High-dose Seasonal, Quadrivalent, Preservative Free Nagi Narendra PT Work Phone: [facility] 04-03-2022 influenza virus vaccine, unspecified formulation Laila Lewis PA-C Work Phone: [facility] 05-21-2020 influenza virus vaccine, unspecified formulation Mac SANTIAGO [facility] 05-21-2020 influenza, injectabl e, quadrivalent, contains preservative Nagi Narendra PT Work Phone: [facility] 05-21-2020 pneumococcal conjuga te vaccine, 13 valent Nagi Narendra PT Work Phone: [facility] 04-10-2020 influenza virus vaccine, unspecified formulation Mac SANTIAGO [facility] 05-03-2019 influenza, injectabl e, madin sancho canine kidney, preservative free Nagi Narendra PT Work Phone: [facility] 05-03-2019 pneumococcal polysaccharide vaccine, 23 valent Nagi Narendra PT Work Phone: [facility] 05-02-2018 influenza virus vaccine, unspecified formulation Mac SANTIAGO [facility] 05-02-2018 seasonal influenza, intradermal, preservative free Nagi Narendra PT Work Phone: [facility] 06-07-2017 influenza virus vaccine, unspecified formulation Mac SANTIAGO [facility] 06-07-2017 influenza, injectabl e, quadrivalent, contains preservative Nagi Narendra PT Work Phone: [facility] 05-13-2015 zoster vaccine, live Nagi Sp collado PT Work Phone: [facility] 05-13-2015 zoster vaccine, unspecified formulation Pmh 1 [facility] NEGATED: Highlighted row has not occurred!08-18-2021 SARS-CoV-2 (COVID-19) Ad26 vaccine, recombinant Mac SANTIAGO [facility] Payers Date Payer Category Payer Self-pay 2021 Private Health Insurance [employer] [id number] 2019 Unknown [id number]. [id number] 2018 Medicare [id number] 1.13.159.2. [id number] 1959 Medicare [id number] 1959 Unknown [id number] 1954 Unknown [id number] 2.16.840.1.369055.3.579.2. 593 1954 Unknown [id number] 2.16840.1.338785.3.579.2. 593 1954 Unknown [id number] 2.16.840.1.121724.3.579.2. 593 1954 Unknown [id number] 2.16.840.1.833453.3.579.2. 593 1954 Unknown [id number] 2.16.840.1.571192.3.579.2. 593 1954 Unknown [id number] 2.16840.1.685783.3.579.2. 593 1954 Unknown [id number] 2.16.840.1.981258.3.579.2. 593 1954 Unknown [id number] 2.16.840.1.231189.3.579.2. 593 1954 Unknown [id number] 2.16.840.1.770628.3.579.2. 593 1954 Unknown [id number] 2.16.840.1.891880.3.579.2. 593 1954 Unknown [id number] 2.16.840.1.016033.3.579.2. 593 1954 Unknown [id number] 2.16.840.1.609955.3.579.2. 593 1954 Unknown [id number] 2.16.840.1.842056.3.579.2. 593 1954 Unknown [id number] 2.16.840.1.588760.3.579.2. 593 1954 Unknown [id number] 2.16.840.1.433540.3.579.2. 593 1954 Unknown [id number] 2.16.840.1.173612.3.579.2. 727 1954 Unknown [id number] 2.16.840.1.549200.3.579.2. 727 1954 Unknown [id number] 2.840.1.458405.3.579.2. 128 1954 Unknown [id number] 2.840.1.308555.3.579.2. 128 1954 Unknown [id number] 2.840.1.012301.3.579.2. 128 1954 Unknown [id number] 2.840.1.658606.3.579.2. 128 1954 Unknown [id number] 2.16840.1.768467.3.579.2. 128 1954 Unknown [id number] 2.16.840.1.883195.3.579.2. 128 1954 Unknown [id number] 2.16840.1.777868.3.579.2. 128 1954 Unknown [id number] 2.16.840.1.316899.3.579.2. 1286 1954 Unknown [id number] 2.16840.1.468155.3.579.2. 1286 1954 Unknown [id number] 2.16.840.1.682192.3.579.2. 128 1954 Unknown [id number] 2.16.840.1.355986.3.579.2. 1258 1954 Unknown [id number] 2.16.840.1.922309.3.579.2. 1258 1954 Unknown [id number] 2.16.840.1.575330.3.579.2. 1258 1954 Unknown [id number] 2.840.1.324904.3.579.2. 1258 1954 Unknown [id number] 2.840.1.370303.3.579.2. 1258 1954 Unknown [id number] 2.840.1.579859.3.579.2. 1258 1954 Unknown [id number] 2.840.1.175683.3.579.2. 1258 1954 Unknown [id number] 2.840.1.142302.3.579.2. 1258 1954 Unknown [id number] 2.840.1.639768.3.579.2. 1258 1954 Unknown [id number] 2.840.1.686079.3.579.2. 1258 1954 Unknown [id number] 2.840.1.495538.3.579.2. 1258 1954 Unknown [id number] 2.840.1.050308.3.579.2. 1258 1954 Unknown [id number] 2.840.1.930979.3.579.2. 1258 1954 Unknown [id number] 2.840.1.803001.3.579.2. 1258 1954 Unknown [id number] 2.16.840.1.714260.3.579.2. 1258 1954 Unknown [id number] 2.16.840.1.837328.3.579.2. 1258 1954 Unknown [id number] 2.16.840.1.942059.3.579.2. 1258 1954 Unknown [id number] 2.16840.1.666959.3.579.2. 1258 1954 Unknown [id number] 2.840.1.305019.3.579.2. 1258 1954 Unknown [id number] 2.840.1.142100.3.579.2. 1258 1954 Unknown [id number] 2.840.1.570285.3.579.2. 1258 1954 Unknown [id number] 2.840.1.246356.3.579.2. 1258 1954 Unknown [id number] 2.840.1.973078.3.579.2. 1258 1954 Unknown [id number] 2.840.1.214546.3.579.2. 1258 1954 Unknown [id number] 2.840.1.148916.3.579.2. 1258 1954 Unknown [id number] 2.840.1.089822.3.579.2. 1258 1954 Unknown [id number] 2.840.1.674709.3.579.2. 1258 1954 Unknown [id number] 2.16840.1.626997.3.579.2. 1258 1954 Unknown [id number] 2.840.1.862068.3.579.2. 1258 1954 Unknown [id number] 2.16840.1.535699.3.579.2. 1259 Unknown [id number] 2.16.840.1.626852.3.579.2. 531 Social History Date Type Detail Facility Start: 05-05-2021 End: 02-17-2024 Ex-smoker (finding) [facility] Start: 04-15-2023 End: 05-10-2023 Male [facility] Start: 1955 Sex Assigned At Male [facility] Tobacco smoking stat [facility] Tobacco smoking consumption unknown [facility] Start: 02-02-2023 Gender identity Identifies as male gender (finding) [facility] Start: 02-02-2023 Sexual orientation Heterosexual (finding) [facility] Start: 06-28-1967 End: 09-27-1975 History of tobacco use Current smoker [facility] Work Phone: Start: 06-28-1967 End: 09-27-1975 History of tobacco use Cigarette Smoker [facility] Work Phone: Start: 04-15-2023 End: 05-10-2023 History of Social function [facility] Adult Depression Screening Assessment 1 [facility] Start: 01-11-2023 End: 02-17-2024 Tobacco use and exposure Smokeless tobacco non-user [facility] Start: 07-12-2023 End: 10-30-2024 Alcohol intake Current drinker of alcohol (finding) [facility] Within the last year , have you been afraid of your partner or ex-partner? No [facility] Do you belong to any clubs or organizations such as yarsani groups, unions, fraternal or athletic groups, or [...] buy more. Never true [facility] Start: 02-17-[address] [facility] Start: 02-17-2024 Alcohol Comment Social drinker with occasional drink at home. [facility] Start: 05-28-2023 Tobacco Comment [address] [facility] Start: 05-27-2020 Alcohol Comment occasional [facility] Start: 04-04-2024 Alcohol Comment rare [facility] Medical Equipment Procedure Code Equipment Code Equipment Origin al Text Equipment Identifier Dates Stem Fem 129d 4 06/10 45.5mm Fitmore Protasul-64 Hip Rgh - [id number] Start: 07-07-2023 Maryann [employer]omet Femoral Head 36mm [id number] Start: 07-07-2023 Screw Bn 30mm 6. [address]mm [address] Actb Seven Trlg Strl Rpl [id number] 29 - [id number] Start: 07-07-2023 Shell Actb 56mm Hip 4 Hl Clr Cd [place] G7 F Hmsphr - Sna - [id number] Start: 07-07-2023 Liner Actb 36mm F Vivacit-E Lum G7 Hip Strl Lf - [id number] Start: 07-07-2023 Screw Bn 30mm 6. 5mm St Actb Seven Trlg Strl Rpl [id number] 29 - [id number] Start: 07-07-2023 Screw Bn 30mm 6. 5mm [address] Actb Seven Trlg Strl Rpl [id number] 29 - [id number] Start: 07-07-2023 Functional Status Date Assessment Result Facility 10-25-2024 Patient Health [facility] ionnaire 2 item (PHQ-2) [Reported] [facility] 02-07-2024 Functional Status N/A [facility] 06-01-2022 Functional Status N/A [facility] 02-16-2022 N/A [facility] Clinical Notes 02-16-2022 to 10-30-2024 Jose Hernández NP - 10/30/2024 8:00 AM Suleman Donato MD - 10/25/2024 10:45 AM EDTTelephone DESIRAE Damian - 09/25/2024 2:39 PM John Hernández NP - 07/31/2024 8:00 AM ESTAttachments Note Date & Type Note Facility 10-30-2024 History of Present illness Narrative Images from the original note were not included. HISTORY OF PRESENT ILLNESS: EST PT Lawson Vela is an 69 y.o. @ male. (EST PT) S/P (L) NASH 05/03/24 (~6MO)-DOING WELL XRAY LT HIP TODAY EPIC 10/30/24 XRAYS 06/12/24 IN EPIC NOTES SOME DISCOMFORT/MUSCLE PAIN WITH ACTIVITY-GOOD ROM- +NORCO (TAKES FOR OTHER ACHES AND PAINS); DR DONATO- PT CONTINUES TO HAVE BACK PAIN; HAS APPT WITH PAIN MANAGEMENT 11/06/24 AND WILL BE GETTING INJ ALLERGIES: Allergies Allergen Reactions Carvedilol Other Reaction(s): dizziness HOME MEDICATIONS: Current Outpatient Medications Medication Instructions ascorbic acid (Vitamin C) 500 MG chewable tablet Every 24 hours B Complex Vitamins (vitamin B complex) tablet as directed Orally cholecalciferol (Vitamin D3) 25 MCG (1000 UT) tablet Every 24 hours cyanocobalamin (Vitamin B-12) 100 MCG tablet as directed Orally finasteride (PROSCAR) 5 mg, Daily HYDROcodone-acetaminophen ([place]port) 5-325 MG tablet 1 tablet, Oral, Every 6 hours PRN irbesartan-hydroCHLOROthiazide (Avalide) 150-12.5 MG tablet 1 tablet, Oral, Daily magnesium 30 mg, 2 times daily meloxicam (MOBIC) 15 mg, Oral, Daily, Take with food Multiple Vitamin (Multi Vitamin) tablet Every 24 hours sildenafil (Viagra) 100 MG tablet Every 24 hours solifenacin (VESIcare) 10 MG tablet Every 24 hours tamsulosin (FLOMAX) 0.4 mg, 2 times daily tiZANidine (ZANAFLEX) 4 mg, Oral, Daily zinc gluconate 50 MG tablet Every 24 hours PHYSICAL EXAM: Left Hip Exam Tenderness Left hip tenderness location: soreness with activity. Range of Motion Flexion: normal External rotation: normal Internal rotation: normal Muscle Strength Abduction: 5/5 Adduction: 5/5 Flexion: 5/5 Other Erythema: absent Scars: present Pulse: present Comments: Small wheal noted on lateral hip. No erythema or signs of infection. Vitals: There is no height or weight on file to calculate BMI. Tobacco Use: Medium Risk (10/30/2024) Patient History Smoking Tobacco Use: Former Smokeless Tobacco Use: Never Passive Exposure: Not on file Alcohol Use: Not At Risk (05/10/2023) AUDIT-C Frequency of Alcohol Consumption: 2-3 times a week Average Number of Drinks: 1 or 2 Frequency of Binge Drinking: Never IMAGING: XR hip left 2 or 3 views Imaging Result: 10/30/2024: : AP and lateral of left hip showed acceptable position and alignment of left total hip arthroplasty. There was no evidence of loosening of the acetabular cup or femoral stem. Femoral head was well centered in the acetabular liner without evidence of asymmetric or accelerated wear. Small avulsion of greater trochanter noted but appears chronic. There was no gross evidence of fracture and/or dislocation. Impression: Unremarkable left total hip arthroplasty. 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 S/P total left hip arthroplasty Z96.642 2. Left hip pain M25.552 XR hip left 2 or 3 views PLAN: I reviewed patients xray which showed a stable LT NASH. He is doing well with only occasional pain. States he is not as strong in his left hip compared to his right but is working on this. I recommend he use tylenol 1000mg every 8 hours PRN for any breakthrough pain. Follow up in 6 months for RCK and xray. Questions answered in laymen terms at the bedside. The diagnosis, home exercise plan and any ongoing restrictions/ recommendations reviewed. If unable to be reached in office, I recommend evaluation at nearest Emergency Room if any symptoms worsened or new symptoms develop for requiring urgent evaluation. documented in this encounter [facility] 10-25-2024 History of Present illness Narrative Images from the original note were not included. HPI Results Additional comments: Labs 05/2024 Med Refill Additional comments: Hydrocodone--[facility] Shoulder Pain Additional comments: Left shoulder pain Last edited by France Farah LPN on 10/25/2024 11:19 AM. Subjective Patient ID: Lawson Vela is a 69 y.o. male who presents for Hypertension, Results (Labs 05/2024), IGT, Med Refill (Hydrocodone--[facility]), and Shoulder Pain (Left shoulder pain). Pt has had left shoulder pain 4-5 months pain increases with Adduction Hypertension This is a chronic problem. The current episode started more than 1 year ago. The problem is unchanged. The problem is controlled. Pertinent negatives include no chest pain, palpitations or shortness of breath. Med Refill Pertinent negatives include no chest pain. Current Outpatient Medications on File Prior to Visit Medication Sig Dispense Refill ascorbic acid (Vitamin C) 500 MG chewable [...] tablet by mouth Daily 100 tablet 3 magnesium 30 MG tablet Take 30 mg [...] 1 tablet (4 mg) by mouth Daily (Patient taking differently: Take 4 mg by mouth Daily PRN) 30 tablet 2 zinc gluconate 50 MG tablet 1 (one) time each day at the same time. [DISCONTINUED] HYDROcodone-acetaminophen (Newport) 5-325 MG tablet Take 1 tablet by mouth every 6 (six) hours if needed for severe pain 40 tablet 0 [DISCONTINUED] amoxicillin (Amoxil) 500 MG tablet 4 tabs PO once 30-60 mins before procedure with food 4 tablet 3 No current facility-administered medications on file prior to visit. I have reviewed and reconciled the history and medication list with the patient today. Allergies Allergen Reactions Carvedilol Other Reaction(s): dizziness Social History Tobacco Use Smoking status: Former Current packs/day: 0.00 Types: Cigarettes Quit date: 09/27/1975 Years since quittin.1 Smokeless tobacco: Never Tobacco comments: no way [...] wrist GERD (gastroesophageal reflux disease) HTN (hypertension) ([facility]) Lumbosacral disc disease Osteoarthritis Past Surgical History: Procedure Laterality Date APPENDECTOMY 1967 CARPAL TUNNEL RELEASE Left 05/29/2020 NERVE BLOCK Bilateral 07/07/2022 L2-L5 RADIOFREQUENCY ABLATION 03/02/2023 Rt Lateral Cutaneous Iliohypogastric Nerve TOTAL HIP ARTHROPLASTY Right 07/07/2023 Dr Blair TOTAL HIP ARTHROPLASTY Left 05/03/2024 Dr Blair VASECTOMY 2010 Visit Vitals BP 130/76 Pulse 82 Ht 6' 1 Wt 292 lb SpO2 95% BMI 38.52 kg/m Smoking Status Former BSA 2.61 m Review of Systems Respiratory: Negative for shortness of breath. Cardiovascular: Negative for chest pain and palpitations. Objective Physical Exam Constitutional: General: He is [...] Content: Thought content normal. Judgment: Judgment normal. Office Visit on 10/25/2024 Component Date Value Ref Range Status Hemoglobin A1C 10/25/2024 5.8 Final Office Visit on 06/14/2024 Component Date Value Ref Range Status PSA, TOTAL 06/14/2024 0.43 < OR = 4.00 ng/mL Final Comment: The total PSA value from this [...] of the presence or absence of disease. CHOLESTEROL, TOTAL 06/14/2024 172 <200 mg/dL Final HDL CHOLESTEROL 06/14/2024 32 (L) > OR = 40 mg/dL Final TRIGLYCERIDES 06/14/2024 299 (H) <150 mg/dL Final Comment: If a non-fasting specimen was collected, consider repeat triglyceride testing on a fasting specimen if clinically indicated. Fabiola et al. J. of Clin. Lipidol. 2015;9:129-169. LDL-CHOLESTEROL 06/14/2024 100 (H) mg/dL (calc) Final Comment: Reference range: <100 Desirable range <100 mg/dL for primary prevention; <70 mg/dL for patients with CHD or diabetic patients with > or = 2 CHD risk factors. LDL-C is now calculated using the Deyvi calculation, which is a validated novel method providing better accuracy than the Friedewald equation in the estimation of LDL-C. Humberto MOORE et al. LULU. 2013;310(19): 5234-2715 (http://education.[employer]/faq/ZRD696) CHOL/HDLC RATIO 06/14/2024 5.4 (H) <5.0 (calc) Final NON HDL CHOLESTEROL 06/14/2024 140 (H) <130 mg/dL (calc) Final Comment: For patients with diabetes plus 1 major ASCVD risk factor, treating to a non-HDL-C goal of <100 mg/dL (LDL-C of <70 mg/dL) is considered a therapeutic option. Glucose 06/14/2024 106 (H) 65 - 99 mg/dL Final Comment: Fasting reference interval For someone without known diabetes, a glucose value between 100 and 125 mg/dL is consistent with prediabetes and should be confirmed with a follow-up test. BUN 06/14/2024 16 7 - 25 mg/dL Final Creatinine 06/14/2024 0.82 0.70 - 1.28 mg/dL Final EGFR 06/14/2024 94 > OR = 60 mL/min/1.73m2 Final BUN/CREATININE RATIO 06/14/2024 SEE NOTE: 6 - 22 (calc) Final Comment: Not Reported: BUN and Creatinine are within reference range. Sodium 06/14/2024 139 135 - 146 mmol/L Final Potassium, Bld 06/14/2024 4.1 3.5 - 5.3 mmol/L Final Chloride 06/14/2024 105 98 - 110 mmol/L Final Carbon Dioxide 06/14/2024 26 20 - 32 mmol/L Final Calcium 06/14/2024 9.2 8.6 - 10.3 mg/dL Final PROTEIN, TOTAL 06/14/2024 6.5 6.1 - 8.1 g/dL Final ALBUMIN 06/14/2024 3.9 3.6 - 5.1 g/dL Final GLOBULIN 06/14/2024 2.6 1.9 - 3.7 g/dL (calc) Final ALBUMIN/GLOBULIN RATIO 06/14/2024 1.5 1.0 - 2.5 (calc) Final BILIRUBIN, TOTAL 06/14/2024 0.6 0.2 - 1.2 mg/dL Final ALKALINE PHOSPHATASE 06/14/2024 71 35 - 144 U/L Final AST 06/14/2024 18 10 - 35 U/L Final ALT 06/14/2024 18 9 - 46 U/L Final WHITE BLOOD CELL COUNT 06/14/2024 7.7 3.8 - 10.8 Thousand/uL Final RED BLOOD CELL COUNT 06/14/2024 4.29 4.20 - 5.80 Million/uL Final HEMOGLOBIN 06/14/2024 12.0 (L) 13.2 - 17.1 g/dL Final HEMATOCRIT 06/14/2024 37.3 (L) 38.5 - 50.0 % Final MCV 06/14/2024 86.9 80.0 - 100.0 fL Final MCH 06/14/2024 28.0 27.0 - 33.0 pg Final MCHC 06/14/2024 32.2 32.0 - 36.0 g/dL Final Comment: For adults, a slight decrease in the calculated MCHC value (in the range of 30 to 32 g/dL) is most likely not clinically significant; however, it should be interpreted with caution in correlation with other red cell parameters and the patient's clinical condition. RDW 06/14/2024 14.8 11.0 - 15.0 % Final PLATELET COUNT 06/14/2024 242 140 - 400 Thousand/uL Final MPV 06/14/2024 9.1 7.5 - 12.5 fL Final Hemoglobin A1C 06/14/2024 5.6 <5.7 % of total Hgb Final Comment: For the purpose of screening for the presence of diabetes: <5.7% Consistent with the absence of diabetes 5.7-6.4% Consistent with increased risk for diabetes (prediabetes) > or =6.5% Consistent with diabetes This assay result is consistent with a decreased risk of diabetes. Currently, no consensus exists regarding use of hemoglobin A1c for diagnosis of diabetes in children. According to [place] Diabetes Association (ADA) guidelines, hemoglobin A1c <7.0% represents optimal control in non- diabetic patients. Different metrics may apply to specific patient populations. Standards of Medical Care in Diabetes(ADA). 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 Patient will continue to be required to be seen in our office at least every three months for monitoring. At each follow up visit I will reassess the patient's need for the medication. Patient is to have this medication prescribed only through this office. Failure to follow the rules and regulations will result in tapering and discontinuation of medications if applicable. Patient verbalized understanding. OARRS Report was reviewed for this patient. IGT (impaired glucose tolerance) - POCT Glycated hemoglobin, total Class 2 severe obesity with serious comorbidity and body mass index (BMI) of 37.0 to 37.9 in adult, unspecified obesity type (CMS/HCC) - POCT Glycated hemoglobin, total - He has lost some weight, needs to lose more. Morbid (severe) obesity due to excess calories (CMS/HCC) Essential (primary) hypertension (CMS/HCC) - This is a chronic medical condition that is stable since last assessment. No changes in treatment are suggested at this time. Body mass index (BMI) 38.0-38.9, adult Follow up in about 5 months (around 03/27/2025) for Routine F/U. documented in this encounter [facility] 09-25-2024 Telephone encounter Note LM for pt to CB [facility] 09-25-2024 Miscellaneous Notes LM for pt to CB Lm to cb Lm on vm to call us, need to know why he is wanting or needing this Patient is wondering if he needs/or is due for an MMR vaccine. documented in this encounter [facility] 09-22-2024 Telephone encounter Note Lm to cb [facility] 09-21-2024 Telephone encounter Note Lm on to call us, need to know why he is wanting or needing this [facility] 09-21-2024 Telephone encounter Note Patient is wondering if he needs/or is due for an MMR vaccine. [facility] 07-31-2024 History of Present illness Narrative Images from the original note were not included. HISTORY OF PRESENT ILLNESS: POST OP PT Lawson Vela is an 69 y.o. @ male. (EST PT) S/P (L) NASH 05/03/24 (12WKS DAYS)- DOING WELL- FINISHED PT JANEL RODAS- PT WOULD LIKE TO START AQUATIC THERAPY ON HIS OWN CURRENTLY ON AMOXICILLIN FOR SINUS INFECTION XRAYS 06/12/24 IN [facility] MINIMAL DISCOMFORT- PT DOESN'T BELIEVE HE HAS ANY SUB Q STITCHES; WONDERING IF HE CAN GO IN A HOT TUB-NOTES IMPROVEMENT WITH LIMP WITH AMBULATING- SOME DIFFICULTY PUTTING SHOES AND SOCKS- PT NOTES SOME INCREASE LBP; PREVIOUS JEN'S 07/04/24- PT DOES HAVE AN UPCOMING PAIN MANAGEMENT APPT [facility]- +HYDROCODONE; TAKES FOR BACK PAIN REVIEW OF SYSTEMS: General: Denies fever, fatigue or weight loss Lungs: Denies SOB Cardio: Denies chest pain GI: Denies indigestion or abdominal pain Neuro: Denies numbness or tingling, denies new onset paralysis Musculoskeletal: ( see note) PHYSICAL EXAM: Left Hip Exam Tenderness The patient is experiencing no tenderness. Range of Motion Abduction: normal Adduction: normal Extension: normal Muscle Strength Abduction: 5/5 Adduction: 5/5 Flexion: 5/5 Other Erythema: absent Scars: present (fully healed incision) Sensation: normal Pulse: present ASSESSMENT: ICD-10-CM 1. S/P total left hip arthroplasty Z96.642 PLAN: Patient is 12 weeks s/p LT NASH. He is doing well with improved ROM and pain. He is cleared to start working on aquatic therapy and go in a hot tub. He will follow up in 3 months for RCK and xray. He will call with any worsening symptoms. Questions answered in laymen terms at the bedside. The diagnosis, home exercise plan and any ongoing restrictions/ recommendations reviewed. If unable to be reached in office, I recommend evaluation at nearest Emergency Room if any symptoms worsened or new symptoms develop for requiring urgent evaluation. documented in this encounter [facility] 07-27-2024 History of Present illness Narrative Images from the original note were not included. Subjective Patient ID: Lawson Vela is a 69 y.o. male who presents for URI. Lawson is present today for evaluation of URI. Admits sinus pressure/pain, headache, post nasal drainage, nasal congesting, sneezing, runny nose, sore throat (worse in the morning) cough dry mostly but in the morning when he gets up he gets some yellow phlegm, body aches. He has been sick for about 10 days. He has been using Mucinex and cough drops. Current Outpatient Medications on File Prior to Visit Medication Sig Dispense Refill tiZANidine (Zanaflex) 4 MG tablet Take 1 tablet (4 mg) by mouth Daily (Patient taking differently: Take 4 mg by mouth Daily PRN) 30 tablet 2 amoxicillin (Amoxil) 500 MG tablet 4 tabs [...] mg by mouth in the morning. HYDROcodone-acetaminophen ([place]port) 5-325 MG tablet Take 1 tablet by mouth every 6 (six) hours if needed for severe pain 40 tablet 0 irbesartan-hydroCHLOROthiazide (Avalide) 150-12.5 MG tablet Take 1 tablet by mouth Daily 100 tablet 3 magnesium 30 MG tablet Take 30 mg [...] the morning and 0.4 mg before bedtime. zinc gluconate 50 MG tablet 1 (one) time each day at the same time. No current facility-administered medications on file prior to visit. I have reviewed and reconciled the history and medication list with the patient today. Allergies Allergen Reactions Carvedilol Other Reaction(s): dizziness Social History Tobacco Use Smoking status: Former Current packs/day: 0.00 Types: Cigarettes Quit date: 09/27/1975 Years since quittin.8 Smokeless tobacco: Never Tobacco comments: no way [...] Name Age of Onset Cancer Mother Pamela Auxpastor Hypertension Father Past Medical History: Diagnosis Date Allergic rhinitis BPH (benign prostatic hyperplasia) CTS (carpal tunnel syndrome) DDD (degenerative disc disease), cervical DDD (degenerative disc disease), lumbar Fracture of wrist GERD (gastroesophageal reflux disease) HTN (hypertension) ([facility]) Lumbosacral disc disease Osteoarthritis Past Surgical History: Procedure Laterality Date APPENDECTOMY 1967 CARPAL TUNNEL RELEASE Left 05/29/2020 NERVE BLOCK Bilateral 07/07/2022 L2-L5 RADIOFREQUENCY ABLATION 03/02/2023 Rt Lateral Cutaneous Iliohypogastric Nerve TOTAL HIP ARTHROPLASTY Right 07/07/2023 Dr Blair TOTAL HIP ARTHROPLASTY Left 05/03/2024 Dr Blair VASECTOMY 2010 Visit Vitals BP 128/74 Pulse 88 Temp 97.5 F Resp 18 Ht 6' 1 Wt 290 lb 9.6 oz SpO2 95% BMI 38.34 kg/m Smoking Status Former BSA 2.61 m Review of Systems Constitutional: Positive for fatigue. Negative for chills and fever. HENT: Positive for congestion, postnasal drip, rhinorrhea, sinus pressure, sinus pain and sore throat. Respiratory: Positive for cough. Negative for shortness of breath and wheezing. Cardiovascular: Negative for chest pain, palpitations and leg swelling. Gastrointestinal: Negative for abdominal pain, constipation, diarrhea, nausea and vomiting. Musculoskeletal: Positive for myalgias. Skin: Negative for rash. Neurological: Positive for headaches. Psychiatric/Behavioral: Positive for sleep disturbance. Objective Physical Exam Constitutional: General: He is not in acute distress. Appearance: He is obese. He is ill-appearing. HENT: Head: Normocephalic and atraumatic. Right Ear: Ear canal normal. Tympanic membrane is retracted. Tympanic membrane is not erythematous. Left Ear: Ear canal normal. Tympanic membrane is retracted. Tympanic membrane is not erythematous. Nose: Congestion present. Right Turbinates: Swollen. Left Turbinates: Swollen. Right Sinus: Frontal sinus tenderness present. Left Sinus: Frontal sinus tenderness present. Comments: Voice is nasal Mouth/Throat: Mouth: Mucous membranes are moist. Pharynx: Posterior oropharyngeal erythema (Mild) and postnasal drip present. Eyes: General: No scleral icterus. Cardiovascular: Rate and Rhythm: Normal rate and regular rhythm. Heart sounds: No murmur heard. Pulmonary: Effort: Pulmonary effort is normal. No respiratory distress. Breath sounds: Normal breath sounds. No wheezing, rhonchi or rales. Musculoskeletal: General: No swelling. Lymphadenopathy: Cervical: Cervical adenopathy (Mild bilateral submandibular) present. Skin: General: Skin is warm and dry. Neurological: General: No focal deficit present. Mental Status: He is alert and oriented to person, place, and time. Psychiatric: Mood and Affect: Mood normal. Behavior: Behavior normal. Assessment/Plan Diagnoses and all orders for this visit: Acute non-recurrent frontal sinusitis - amoxicillin (Amoxil) 875 MG tablet; Take 1 tablet (875 mg) by mouth in the morning and 1 tablet (875 mg) before bedtime. Do all this for 7 days. Start the above as directed. Reviewed potential s/e with patient. Encouraged probiotic while on antibiotic. Increase water intake, get plenty of rest. Can take OTC allergy medication for symptomatic relief. Tylenol/Motrin prn. Follow up if no improvement in one week. Herniated lumbar disc without myelopathy Pain Management agreement reviewed with patient and signed by both patient and provider. Reviewed the potential risks of opioid therapy including potential for CORE MANAGER s/e, GI s/e, respiratory s/e, dermatologic s/e, and urinary s/e, in addition to potential for allergic reaction, tolerance of the medication, dependence on the medication, potential for withdrawal with abrupt cessation, and potential for addiction. Also reviewed patient responsibilities regarding opioid therapy, and reasons why medication may need to be discontinued. See Chronic Opioid Therapy Agreement document for complete details. Follow up in about 3 months (around 10/25/2024) for Medication Follow Up. documented in this encounter [facility] 07-03-2024 History of Present illness Narrative Images from the original note were not included. HISTORY OF PRESENT ILLNESS: POST OP PT Lawson Vela is an 69 y.o. @ male. (EST PT) S/P (L) NASH 05/03/24 (8WKS 5DAYS) XRAYS 06/12/24 IN [facility] DOING WELL- CONTINUES WITH PT, WANTS TO START AQUATIC THERAPY AT [facility]. USES CANE PRN. GOOD ROM/STRENGTH- +HYDROCODONE [...] requiring urgent evaluation. documented in this encounter [facility] 06-20-2024 History of Present illness Narrative Images from the original note were not included. Physical Therapy Physical Therapy Evaluation Visit Patient Name: Lawson Vela Today's Date: 06/20/2024 Encounter Diagnoses Name Primary? Left hip pain Yes S/P total left hip arthroplasty Visit number: 1 Subjective Lawson Vela 69 y.o. male presents to physical [...] ind with HEP for maintenance/progression prn at [facility] Short Term Goal #2: pt will demo [...] sign below. Date: documented in this encounter [facility] 06-14-2024 History of Present illness Narrative Images [...] mg by mouth in the morning. HYDROcodone-acetaminophen ([place]port) 5-325 MG tablet Take 1 tablet by [...] Do you have a medical power of assistant county attorney?: (Patient-Rptd) (P) No Objective : BP 126/70 [...] a living will and durable power of assistant county attorney for healthcare. We discussed telling keith people [...] need - Influenza, high-dose seasonal, quadrivalent, PF (NJO812) (Fluzone High Dose Quad North 0.7mL dose) Herniated lumbar disc without myelopathy - HYDROcodone-acetaminophen ([place]port) 5-325 MG tablet; Take 1 tablet by mouth every 6 (six) hours if needed for severe pain Claudication (CMS/HCC) - Vascular US lower extremity arterial duplex bilateral; Future Orders Placed This Encounter Procedures Influenza, high-dose seasonal, quadrivalent, PF (ACE288) (Fluzone High Dose Quad North 0.7mL dose) [...] June 14, 2024 documented in this encounter [facility] 06-12-2024 History of Present illness Narrative [...] Unremarkable left total hip arthroplasty. Jose Hernández APRN-[employer] PRESS OPERATOR HELPER XR hip left 2 or 3 views [...] Unremarkable left total hip arthroplasty. Jose Hernández APRN-[facility] Procedures Orders Placed This Encounter Procedures XR [...] requiring urgent evaluation. documented in this encounter [facility] 05-16-2024 History of Present illness Narrative [...] mg by mouth in the morning. HYDROcodone-acetaminophen ([place]port) 5-325 MG tablet Take 1 tablet by [...] wrist GERD (gastroesophageal reflux disease) HTN (hypertension) ([facility]) Lumbosacral disc disease Osteoarthritis ALLERGIES: Allergies Allergen [...] if he desires a referral to another motor tune up specialist we would be happy to make referral, he states he would like to continue his care here. Boni Blair D.O. documented in this encounter [facility] 05-09-2024 History of Present illness Narrative [...] mg by mouth in the morning. HYDROcodone-acetaminophen ([place]port) 5-325 MG tablet Take 1 tablet by [...] wrist GERD (gastroesophageal reflux disease) HTN (hypertension) ([facility]) Lumbosacral disc disease Osteoarthritis ALLERGIES: Allergies Allergen [...] Blair/demi Blair D.O. documented in this encounter [facility] 05-08-2024 Telephone encounter Note Post op pain rx refill. PDMP reviewed [facility] 05-08-2024 Miscellaneous Notes Post op pain rx refill. PDMP reviewed documented in this encounter [facility] 05-04-2024 Telephone encounter Note He already discharged and PT is meeting with him today. [facility] 05-04-2024 Miscellaneous Notes He already discharged and PT is meeting with him today. Maxine myrick that patient is being discharged today from his LT Hip replacement and would like us to call patient to let him know what he needs to do. Patient's phone number is [phone]. documented in this encounter [facility] 05-04-2024 Telephone encounter Note Maxine myrick that patient is being discharged today from his LT Hip replacement and would like us to call patient to let him know what he needs to do. Patient's phone number is [phone]. [facility] 05-02-2024 Telephone encounter Note Post op pain rx. PDMP reviewed [facility] 05-02-2024 Miscellaneous Notes Post op pain rx. PDMP reviewed documented in this encounter [facility] 04-17-2024 History of Present illness Narrative Images from the original note were not included. HPI surgical clearance Additional comments: Pt sched 05/03/24 for left hip replacement with Dr Blair at [facility] PAT completed Last edited by France Farah LPN on 04/17/2024 1:48 PM. Subjective Patient ID: Lawson Vela is a 69 y.o. male who presents for surgical clearance (Pt sched 05/03/24 for left hip replacement with Dr Blair at [facility]/PAT completed). Pt has had left hip [...] mg by mouth in the morning. HYDROcodone-acetaminophen (Newport) 5-325 MG tablet Take 1 tablet by [...] with food 4 tablet 3 [DISCONTINUED] HYDROcodone-acetaminophen ([place]port) 5-325 MG tablet No current facility-administered medications [...] Past Surgical History: Procedure Laterality Date APPENDECTOMY 1966 CARPAL TUNNEL RELEASE Left 05/29/2020 HIP ARTHROPLASTY [...] As Previously Scheduled. documented in this encounter [facility] 04-12-2024 Telephone encounter Note OARRS reviewed, Rx sent into patient's pharmacy. [facility] 04-12-2024 Miscellaneous Notes OARRS reviewed, Rx sent into patient's pharmacy. Patient comment: Getting prepared for future surgery. documented in this encounter [facility] 04-12-2024 Telephone encounter Note Patient comment: Getting prepared for future surgery. [facility] 04-06-2024 History of Present illness Narrative [...] tx: cane, norco, ice, heat, topicals, XR [facility] 11/01/23, hot tub, PREHAB/HEP Currently seeing pain management, Dr Ludwig [facility] for LBP MEDICATION: Current Outpatient Medications [...] mg by mouth in the morning. HYDROcodone-acetaminophen ([place]port) 5-325 MG tablet irbesartan-hydroCHLOROthiazide (Avalide) 150-12.5 MG [...] wrist GERD (gastroesophageal reflux disease) HTN (hypertension) ([facility]) Lumbosacral disc disease Osteoarthritis ALLERGIES: Allergies Allergen [...] IMAGING: November 01, 2023 x-rays from the [facility] office AP pelvis and lateral left hip [...] Blair/demi Blair D.O. documented in this encounter [facility] 04-04-2024 Instructions Trista Pelaez RN - [...] in at the main lobby of the [facility]- registration desk is straight ahead as soon as you walk in. Tell them you are here for surgery. 2. If you have a Living Will/Durable Power of Personal Trainer for Health Care that is not on [...] after you have bathed. 5. NO nail barbadian/acrylic on at least one finger. If you are having a hand, wrist or foot surgery then all nail barbadian and artificial/acrylic nails must be removed from [...] WITH YOU ANY DEVICES YOU MAY NEED: ANGELES hose, ice machine, sling/swath, brace or special [...] please call the Preadmission Testing office at [phone], Mon.-Fri. 7 a.m.-3 p.m. Leave a voicemail [...] with your doctor. documented in this encounter [facility] 04-04-2024 Miscellaneous Notes Patient called and educated to watch his YOLANDA education on total hip replacement prior to his PAT appointment next week. Patient verbalized understanding. documented in this encounter [facility] 04-04-2024 Nurse Note Patient called and educated to watch his YOLANDA education on total hip replacement prior to his PAT appointment next week. Patient verbalized understanding. [facility] 03-15-2024 History of Present illness Narrative No need for Prehab appt, has walker and has recently went through NASH, spoke with pt in parking lot, reviewed precautions good understanding. documented in this encounter [facility] 02-17-2024 History of Present illness Narrative [...] wrist GERD (gastroesophageal reflux disease) HTN (hypertension) ([facility]) Lumbosacral disc disease Osteoarthritis Past Surgical History: [...] Appointment As Scheduled. documented in this encounter [facility] 02-07-2024 Hospital Discharge instructions Patient Education [...] urethra. Follow these instructions at home: Take hclo-exq-dcybtlg and prescription medicines only as told by [...] provider. Document Revised: 12/31/2021 Document Reviewed: 12/31/2021 RoomReveal Patient Education 2022 [employer]. Follow Up Care 08/30/2023 12:37:09 With:PAEMLA BAER, Mac Stephenson, URL Address: [facility] [address] , [place] [address]- When: Unknown [facility] 02-07-2024 Note Patient Education Urology Benign Prostatic [...] Follow these instructions at home: ? Take aboy-xfk-lvkxgsh and prescription medicines only as told by [...] develop side effec (more content not included)... [facility] 08-09-2023 History of Present illness Narrative [...] develop for requiring urgent evaluation. 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 documented in this encounter [facility] 07-07-2023 Hospital course Narrative Summary: status post hip replacement right Orthopaedic Discharge Summary Patient ID: Lawson Vela [id number] y.o. 1955 Admit date: 07/07/2023 Discharge date and time: No discharge date for patient encounter. Admitting Physician: Charissa Blair DO Discharge Physician: same Admission Diagnoses: Severe degenerative joint disease rt hip Discharge Diagnoses: Severe degenerative joint disease rt hip Admission Condition: Stable Discharged Condition: Stable Indication for Admission: The patient was noted via outpatient basis to have recalcitrant pain and decreased range of motion to the operative hip with physical and diagnostic modalities consistent with severe degenerative joint disease. They exhibited an antalgic gait which was affecting balance, coordination, stability on stairs and causing pain to hip and low back. They tried nonsteroidal anti-inflammatories, cortisone injection, strength and fitness program at home without relief of symptoms. X-rays revealed severe degenerative joint disease to the operative hip with decrease joint space height noted , marginal osteophytes noted, and flattening of the articular surfaces noted. The patient requested to have a total hip arthroplasty performed because the pain was markedly affecting activities of daily living and ability to sleep. Surgical procedure: Procedure(s): REPLACEMENT TOTAL JOINT HIP (Right) - Wound Class: Clean - Incision Closure: Deep and Superficial Layers Hospital Course:See EPIC inpatient notes for specifics Patient was admitted to the hospital and underwent a rt total hip arthroplasty on the above mentioned date There were no beds available on acute care but post operatively the patient received therapy ion the PACU./ pre and post. When the spinal wore off he was able to ambulate and did stair training. The patient wanted to go home and he was stable. He was discharged from the PACU to home. Patient was given a follow-up appointment in my office in approximately 10 days. Our patient advocate will contact the patient tomorrow and arrange home therapy and review home meds and when to start asa. Disposition: Stable Patient Instructions: @MEDDISCHARGE@ Activity: Gait training with walker weightbearing as tolerated to rt Lower extremity, Increased strength and range of motion operative hip. Diet: Regular home diet Wound Care: May shower daily and redressed the wound after shower Follow-up with Charissa Blair DO in 10-14 days. Signed: Charissa Blair DO documented in this encounter [facility] 07-07-2023 Progress note Formatting of t his note is different from the original. Physical Therapy Evaluation Discharge Recommendations PT Recommendations: Home Home Recommendations: Intermittent caregiver support for: Post Discharge Therapy Recommendations: Home Physical Therapy [employer] Support for-: ADL Deficits, Mobility Deficits Past Medical History: Diagnosis Date Arthritis Benign prostatic hyperplasia Fractures GERD (gastroesophageal reflux disease) Hypertension Past Surgical History: Procedure Laterality Date APPENDECTOMY RELEASE CARPAL TUNNEL Right 05/29/2020 Performed by Charissa Blair DO at [facility] 6 Clicks: Basic Mobility Turning from your back to your side while in a flat bed without using bed rails?: A little Moving from lying on your back to sitting on side of flat bed without using bed rails?: A little Moving to and from bed to a chair (including w/c)?: A little Standing up from a chair using your arms (e.g. w/c or bedside chair)?: None To walk in hospital room?: A little Climbing 3-5 steps with a railing?: A little Scoring 6 Clicks: Basic Mobility Raw Score: 19 CMS G Code Modifier: CJ Therapy Plan Need for skilled Physical Therapy to address deficits in functional mobility due to a status decline resulting from S/P R NASH on 07/07/[address] Blair. PT Treatment/Interventions: Functional transfer training, LE strengthening/ROM, Endurance training, Balance, Stair training, Bed mobility, Gait training, Functional activities, Neuromuscular reeducation PT Frequency: Other (comment) (1-2x/day) PT Duration: 5 days Patient Response to Treatment: Tolerated evaluation without adverse reaction Assessment Patient Assessment Therapy Problem List: Abnormal posture, Decreased balance, Decreased endurance, Decreased mobility, Decreased safe judgement during ADL, Decreased LE ROM, Decreased LE strength Patient Response to Treatment: Tolerated evaluation without adverse reaction Mood/Affect: Appropriate for circumstances Rehab Prognosis: Good, With continued PT status post acute discharge Visit RN Communication: Yes Medical Record Reviewed: Yes PT Type of Visit: Evaluation Precautions Activity: Ok to evaluate per RN Equipment: rolling walker, nonskid socks, IV, gait belt Weight Bearing Status: WBAT R LE Oxygen Used: room air Other: fall risk, Pain Assessment Pain Assessment: 0-10 Pain Score: 3 Pain Type: Chronic pain Pain Location: Back Pain Orientation: Lower Home Living Type of Home: House Home Layout: Two level Stairs to Enter: 0 Stairs in Home: 13 Hand Rails in Home: Left Bathroom Shower/Tub: Tub/shower unit Bathroom Toilet: Raised Bathroom Equipment: Grab bars around toilet (bidet,) Bathroom Accessibility: Accessible via walker Home Equipment: Rolling walker, Cane (3 rolling walkers) Prior Function Lives With: Significant other, Son Receives Help From: Family Level of Mobility: Independent with ADLs and functional transfers or gait Homemaking Assistance: Independent Hearing / Speech / Vision Hearing: Within Functional Limits Speech: Within Functional Limits Cognition Orientation Level: Oriented X4 Bed Mobility Supine to Sit: Min assist (with right LE) Transfers Sit to Stand: Contact guard assist Stand to Sit: Contact guard assist Gait Base of Support: Within Functional Limits Pattern: Decreased cesar, Antalgic gait Gait Assistance: Contact guard assist Assistive Device: Rolling walker Gait Distance: 200ft 2 Turns: Yes Stair Management Technique: Step to pattern, Forwards, With walker Stair Management Assistance: Contact guard assist, Verbal cues Number of Stairs: 5 x 4 steps Balance Sitting Balance: Static: Good Sitting Balance: Dynamic: Good Standing Balance: Static: Fair Standing Balance: Dynamic: Fair RLE Assessment: (3-/5) LLE Assessment: (/5) 07/07/23 1351 NASH NASH exercises performed? Yes Ankle pumps 10 Gluteal Sets 10 Quad sets 10 Heel slides 5 on left Hip abduction NO Other Exercises as above to initate mobility prior to ambulation. Activity Tolerance Endurance: Tolerates <30 minutes activity WITHOUT vital sign changes Plan Physical Therapy Care Plan Physical Therapy Care Plan (Active) Template: PT - Physical Therapy Problem: Bed Mobility Dates: Start: 07/07/23 Disciplines: PT Goal: Patient will perform bed mobility with Stand By Assist Dates: Start: 07/07/23 Expected End: 07/16/23 Description: Goal Description: Pt to perform bed mobility in order to be able to decrease risk of further skin breakdown. Disciplines: PT Problem: Gait Dates: Start: 07/07/23 Disciplines: PT Goal: Patient will perform gait with Stand By Assist Dates: Start: 07/07/23 Expected End: 07/16/23 Description: Pt to be able to ambulate 400ft with walker to be able to safely manage household distances at discharge. Disciplines: PT Problem: Stairs/Curb Dates: Start: 07/07/23 Disciplines: PT Goal: Patient will perform stairs/curb with Stand By Assist Dates: Start: 07/07/23 Expected End: 07/16/23 Description: Pt to ascend and descend 13 stairs with left handrails to be able to safely enter house at discharge. Disciplines: PT Problem: Transfers Dates: Start: 07/07/23 Disciplines: PT Goal: Patient will perform transfers with Stand By Assist Dates: Start: 07/07/23 Expected End: 07/16/23 Description: Goal Description: Pt to be able to safely transfer with least amount of assistance to demonstrate decreased need for caregiver assistance and ease with home transfers. Disciplines: PT Physical Therapy Care Plan (Resolved) There are no resolved problems. Principal Problem: Primary osteoarthritis of right hip [facility] 07-07-2023 Miscellaneous Notes Physical Therapy Evaluation Discharge Recommendations PT Recommendations: Home Home Recommendations: Intermittent caregiver support for: Post Discharge Therapy Recommendations: Home Physical Therapy [employer] Support for-: ADL Deficits, Mobility Deficits Past Medical History: Diagnosis Date Arthritis Benign prostatic hyperplasia Fractures GERD (gastroesophageal reflux disease) Hypertension Past Surgical History: Procedure Laterality Date APPENDECTOMY RELEASE CARPAL TUNNEL Right 05/29/2020 Performed by Charissa Blair DO at [facility] 6 Clicks: Basic Mobility Turning from your back to your side while in a flat bed without using bed rails?: A little Moving from lying on your back to sitting on side of flat bed without using bed rails?: A little Moving to and from bed to a chair (including w/c)?: A little Standing up from a chair using your arms (e.g. w/c or bedside chair)?: None To walk in hospital room?: A little Climbing 3-5 steps with a railing?: A little Scoring 6 Clicks: Basic Mobility Raw Score: 19 CMS G Code Modifier: CJ Therapy Plan Need for skilled Physical Therapy to address deficits in functional mobility due to a status decline resulting from S/P R NASH on 07/07/[address] Blair. PT Treatment/Interventions: Functional transfer training, LE strengthening/ROM, Endurance training, Balance, Stair training, Bed mobility, Gait training, Functional activities, Neuromuscular reeducation PT Frequency: Other (comment) (1-2x/day) PT Duration: 5 days Patient Response to Treatment: Tolerated evaluation without adverse reaction Assessment Patient Assessment Therapy Problem List: Abnormal posture, Decreased balance, Decreased endurance, Decreased mobility, Decreased safe judgement during ADL, Decreased LE ROM, Decreased LE strength Patient Response to Treatment: Tolerated evaluation without adverse reaction Mood/Affect: Appropriate for circumstances Rehab Prognosis: Good, With continued PT status post acute discharge Visit RN Communication: Yes Medical Record Reviewed: Yes PT Type of Visit: Evaluation Precautions Activity: Ok to evaluate per RN Equipment: rolling walker, nonskid socks, IV, gait belt Weight Bearing Status: WBAT R LE Oxygen Used: room air Other: fall risk, Pain Assessment Pain Assessment: 0-10 Pain Score: 3 Pain Type: Chronic pain Pain Location: Back Pain Orientation: Lower Home Living Type of Home: House Home Layout: Two level Stairs to Enter: 0 Stairs in Home: 13 Hand Rails in Home: Left Bathroom Shower/Tub: Tub/shower unit Bathroom Toilet: Raised Bathroom Equipment: Grab bars around toilet (bidet,) Bathroom Accessibility: Accessible via walker Home Equipment: Rolling walker, Cane (3 rolling walkers) Prior Function Lives With: Significant other, Son Receives Help From: Family Level of Mobility: Independent with ADLs and functional transfers or gait Homemaking Assistance: Independent Hearing / Speech / Vision Hearing: Within Functional Limits Speech: Within Functional Limits Cognition Orientation Level: Oriented X4 Bed Mobility Supine to Sit: Min assist (with right LE) Transfers Sit to Stand: Contact guard assist Stand to Sit: Contact guard assist Gait Base of Support: Within Functional Limits Pattern: Decreased cesar, Antalgic gait Gait Assistance: Contact guard assist Assistive Device: Rolling walker Gait Distance: 200ft 2 Turns: Yes Stair Management Technique: Step to pattern, Forwards, With walker Stair Management Assistance: Contact guard assist, Verbal cues Number of Stairs: 5 x 4 steps Balance Sitting Balance: Static: Good Sitting Balance: Dynamic: Good Standing Balance: Static: Fair Standing Balance: Dynamic: Fair RLE Assessment: () LLE Assessment: (09/30) 07/07/23 1351 NASH NASH exercises performed? Yes Ankle pumps 10 Gluteal Sets 10 Quad sets 10 Heel slides 5 on left Hip abduction NO Other Exercises as above to initate mobility prior to ambulation. Activity Tolerance Endurance: Tolerates <30 minutes activity WITHOUT vital sign changes Plan Physical Therapy Care Plan Physical Therapy Care Plan (Active) Template: PT - Physical Therapy Problem: Bed Mobility Dates: Start: 07/07/23 Disciplines: PT Goal: Patient will perform bed mobility with Stand By Assist Dates: Start: 07/07/23 Expected End: 07/16/23 Description: Goal Description: Pt to perform bed mobility in order to be able to decrease risk of further skin breakdown. Disciplines: PT Problem: Gait Dates: Start: 07/07/23 Disciplines: PT Goal: Patient will perform gait with Stand By Assist Dates: Start: 07/07/23 Expected End: 07/16/23 Description: Pt to be able to ambulate 400ft with walker to be able to safely manage household distances at discharge. Disciplines: PT Problem: Stairs/Curb Dates: Start: 07/07/23 Disciplines: PT Goal: Patient will perform stairs/curb with Stand By Assist Dates: Start: 07/07/23 Expected End: 07/16/23 Description: Pt to ascend and descend 13 stairs with left handrails to be able to safely enter house at discharge. Disciplines: PT Problem: Transfers Dates: Start: 07/07/23 Disciplines: PT Goal: Patient will perform transfers with Stand By Assist Dates: Start: 07/07/23 Expected End: 07/16/23 Description: Goal Description: Pt to be able to safely transfer with least amount of assistance to demonstrate decreased need for caregiver assistance and ease with home transfers. Disciplines: PT Physical Therapy Care Plan (Resolved) There are no resolved problems. Principal Problem: Primary osteoarthritis of right hip Summary: Right hip replacement Preoperative diagnosis: Osteoarthritis/degenerative joint disease right hip Postoperative diagnosis: Osteoarthritis/degenerative joint disease right hip Procedure: Right total hip arthroplasty Surgeon: Charissa Blair DO Anesthesia: Spinal Estimated blood loss: 250 cc Complications: None Findings: Exposed bone with absence of articular cartilage findings consistent with osteoarthritis/degenerative joint disease. Osteochondral fragment loose within the hip joint socket Procedure summary: After administration of anesthesia the patient was positioned in the lateral decubitus position right side taking special precaution to pad and protect bony prominences neurovascular and facial structures. The right hip was sterilely prepped and draped in usual fashion. At this point a time-out was taken in the operating room. Incision was centered over the greater trochanter and dissection was carried down through the fat down to the fascial kobi. The fascial kobi was incised and under this I placed Charnley retractor. Next the bursa was excised and then the anterior 1/3 of the gluteus medius was detached from the greater trochanter. The capsule was then incised and the hip was dislocated. The hip had findings consistent with osteoarthritis/degenerative joint disease. Utilizing an oscillating saw the femoral neck was cut removing the femoral head. A caliper was used to estimate the size of the femoral head in to determine the appropriate acetabular reamer. The labrum was excised as well as the soft tissues in the socket. Next reaming was performed sequentially up to 55. A size 56 G7cup was impacted into place it fits noting secure I further stabilize the cup with 3 6.5 mm acetabular screws. A standard liner [address]. Attention was then turned towards the femur. The canal was opened with a blade followed by a rat tail rasp and then an opening broach. Broaching was performed up to size B 4. Trial reductions were performed and range of motion was taken to extremes to ensure that there was no tendency towards dislocation or instability. The soft tissues appeared to balance nicely. Next a size b4 extended offset fitmore stem was impacted in the place. It was snug and secure. A size 36/10.5 femoral head was impacted over a dry Inderjit taper and then the hip was reduced. Range of motion was taken to extremes and the hip was stable. The soft tissues appeared to be well balanced and the leg lengths appeared to be symmetric. The wound was irrigated with copious amounts of sterile water and hemostasis was verified The gluteus medius was reattached with 5. Ethibond suture The fascia of the vastus lateralis was repaired with an 0 Vicryl suture The fascia kobi was closed with interrupted 0 Vicryl suture I infiltrated the margins of the wound with 30 cc of 0.5% Marcaine The fat and subcutaneous layers were closed with 0 Vicryl suture and then a running 3 0 Vicryl stitch was used to close the skin. Tinco Miller and Steri-Strips were applied. Sterile dressings were applied and she was carefully log rolled off the table and then transported to the recovery room in stable condition documented in this encounter [facility] 07-07-2023 Hospital Discharge instructions Janee Viera RN - 07/07/2023 2:06 PM EST You may feel dizzy, sleepy, and lightheaded due to medications you received. For the next 24 hours: Activity tolerated within Physical Limits Rest at home with moderate activity as tolerated Do not drink alcohol Do not drive Do not operate complex/hazardous machinery today Do not make important decisions or sign important papers Notify physician of: Temperature over 100 degrees farenheit Redness, Warmth, Hardness around IV site Allergic Reaction (rash, hives, itching, trouble breathing or swallowing) Questions, Problems, Concerns Preop phone number [phone] ext [phone] The following attachments cannot be sent through Care Everywhere.Total Hip Replacement Discharge Instructions (Japanese)documented in this encounter [facility] 07-07-2023 Attending History and physical note HISTORY AND PHYSICAL INTERVAL NOTE: Lawson Vela [id number] H&P reviewed. The patient was examined and there are no changes to the H&P. Charissa Blair DO Source Note - Charissa Blair DO - 07/06/2023 7:28 AM EST [facility] 07-07-2023 History and physical note HISTORY AND PHYSICAL INTERVAL NOTE: Lawson Vela [id number] H&P reviewed. The patient was examined and there are no changes to the H&P. Charissa Blair DO Source Note - Charissa Blair DO - 07/06/2023 7:28 AM EST documented in this encounter [facility] 07-07-2023 Procedure note Summary: Right hip replacement Preoperative diagnosis: Osteoarthritis/degenerative joint disease right hip Postoperative diagnosis: Osteoarthritis/degenerative joint disease right hip Procedure: Right total hip arthroplasty Surgeon: Charissa Blair DO Anesthesia: Spinal Estimated blood loss: 250 cc Complications: None Findings: Exposed bone with absence of articular cartilage findings consistent with osteoarthritis/degenerative joint disease. Osteochondral fragment loose within the hip joint socket Procedure summary: After administration of anesthesia the patient was positioned in the lateral decubitus position right side taking special precaution to pad and protect bony prominences neurovascular and facial structures. The right hip was sterilely prepped and draped in usual fashion. At this point a time-out was taken in the operating room. Incision was centered over the greater trochanter and dissection was carried down through the fat down to the fascial kobi. The fascial kobi was incised and under this I placed Charnley retractor. Next the bursa was excised and then the anterior 1/3 of the gluteus medius was detached from the greater trochanter. The capsule was then incised and the hip was dislocated. The hip had findings consistent with osteoarthritis/degenerative joint disease. Utilizing an oscillating saw the femoral neck was cut removing the femoral head. A caliper was used to estimate the size of the femoral head in to determine the appropriate acetabular reamer. The labrum was excised as well as the soft tissues in the socket. Next reaming was performed sequentially up to 55. A size 56 G7cup was impacted into place it fits noting secure I further stabilize the cup with 3 6.5 mm acetabular screws. A standard liner [address] Attention was then turned towards the femur. The canal was opened with a blade followed by a rat tail rasp and then an opening broach. Broaching was performed up to size B 4. Trial reductions were performed and range of motion was taken to extremes to ensure that there was no tendency towards dislocation or instability. The soft tissues appeared to balance nicely. Next a size b4 extended offset fitmore stem was impacted in the place. It was snug and secure. A size 36/10.5 femoral head was impacted over a dry Inderjit taper and then the hip was reduced. Range of motion was taken to extremes and the hip was stable. The soft tissues appeared to be well balanced and the leg lengths appeared to be symmetric. The wound was irrigated with copious amounts of sterile water and hemostasis was verified The gluteus medius was reattached with 5. Ethibond suture The fascia of the vastus lateralis was repaired with an 0 Vicryl suture The fascia kobi was closed with interrupted 0 Vicryl suture I infiltrated the margins of the wound with 30 cc of 0.5% Marcaine The fat and subcutaneous layers were closed with 0 Vicryl suture and then a running 3 0 Vicryl stitch was used to close the skin. Tinco Miller and Steri-Strips were applied. Sterile dressings were applied and she was carefully log rolled off the table and then transported to the recovery room in stable condition [facility] 04-13-2023 Note HNO ID: [id number] Author: Laila Lewis PA-C Service: ? Author Type: Physician Umbrella Cutter Type: Progress Notes Filed: 04/15/2023 1:53 PM [...] a week. Hydrocodone, Meloxicam Zanaflex, Lidocaine patches weekend caregiver Prior to ablation symptoms on left have [...] days 2 More (more content not included)... [facility] 04-13-2023 Instructions Laila Lewis PA-C - 04/13/2023 [...] which is considered uptake). Laila Lewis PA-C [phone] documented in this encounter [facility] 04-13-2023 History of Present illness Narrative [...] a week. Hydrocodone, Meloxicam Zanaflex, Lidocaine patches weekend caregiver Prior to ablation symptoms on left have [...] patient MRI Lumbar: Narrative PERFORMED AT [facility] LOCATION:[facility] CLINICAL HISTORY: Low back pain extending into the right lower extremity. COMPARISON: 05/01/2022 TECHNIQUE: Multiplanar MR imaging of the lumbar spine was performed. FINDINGS: The spine is visualized from the J70-E1-J9 levels on the sagittal sequences, assuming a [...] narrowing. At the L5-S1 level, there is lela-ag-geqmdfwj diffuse disc bulging and moderate hypertrophic facet changes, which results in moderate to marked neural foraminal narrowing. Procedure Note CONVERSION, GENERIC - 11/13/2022 PERFORMED AT [facility] LOCATION:[facility] CLINICAL HISTORY: Low back pain extending into the right lower extremity. COMPARISON: 05/01/2022 TECHNIQUE: Multiplanar MR imaging of the lumbar spine was performed. FINDINGS: The spine is visualized from the Q88-P3-J2 levels on the sagittal sequences, assuming a [...] narrowing. At the L5-S1 level, there is ttvg-mz-ahsvpjmb diffuse disc bulging and moderate hypertrophic facet changes, which results in moderate to marked neural foraminal narrowing. 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 Report reported and signed by James Vizcaino on 10/19/2022 1406 CONVERSION, GENERIC - 11/14/2022 PERFORMED AT [facility] LOCATION:[place] [address] EXAMINATION: XR HIPS TRENT 3_4V WO [...] Decision Making Level: 4 - Moderate SIGNATURE: aLila Lewis PA-C PATIENT NAME: Lawson Vela DATE: April 13, 2023 TIME: 8:55 AM PAGER: documented in this encounter [facility] 02-12-2023 Note HNO ID: [id number] Author: Laila Lewis PA-C Service: ? Author Type: Physician Umbrella Cutter Type: Progress Notes Filed: 02/12/2023 12:58 PM Note Text: Per Triage: Lwason Vela is a 68 year old male that requests evaluation of lumbar spine. Per review, they have symptoms of LBP into left leg pain. Positive for numbness, difficulty walking and weakness. CMT: PT Hydrocodone weekend caregiver Studies (Reports unless indicated) MRI Lumbar: Narrative PERFORMED AT [facility] LOCATION:[facility] CLINICAL HISTORY: Low back pain extending into the right lower extremity. COMPARISON: 05/01/2022 TECHNIQUE: Multiplanar MR imaging of the lumbar spine was performed. FINDINGS: The spine is visualized from the Q58-Z0-E4 levels on the sagittal sequences, assuming a [...] narrowing. At the L5-S1 level, there is amkb-ie-yfhtsxyc diffuse disc bulging and moderate hypertrophic facet changes, which results in moderate to marked neural foraminal narrowing. Procedure Note CONVERSION, GENERIC - 11/13/2022 PERFORMED AT [facility] LOCATION:[facility] CLINICAL HISTORY: Low back pain extending into the right lower extremity. COMPARISON: 05/01/2022 TECHNIQUE: Multiplanar MR imaging of the lumbar spine was performed. FINDINGS: The spine is visualized from the A83-S1-T2 levels on the sagittal sequences, assuming a [...] narrowing. At the L5-S1 level, there is oawr-ty-jfzkelps diffuse disc bulging and moderate hypertrophic facet changes, which results in moderate to marked neural foraminal narrowing. 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 Report reported and signed by James Vizcaino on 10/19/2022 8511 Disposition: Please schedule with Laila. [facility] 02-12-2023 History of Present illness Narrative Per Triage: Lawson Vela is a 68 year old male that requests evaluation of lumbar spine. Per review, they have symptoms of LBP into left leg pain. Positive for numbness, difficulty walking and weakness. CMT: PT Hydrocodone weekend caregiver Studies (Reports unless indicated) MRI Lumbar: Narrative PERFORMED AT [facility] LOCATION:[facility] CLINICAL HISTORY: Low back pain extending into the right lower extremity. COMPARISON: 05/01/2022 TECHNIQUE: Multiplanar MR imaging of the lumbar spine was performed. FINDINGS: The spine is visualized from the V09-W6-G9 levels on the sagittal sequences, assuming a [...] narrowing. At the L5-S1 level, there is bkal-pn-uecctvtb diffuse disc bulging and moderate hypertrophic facet changes, which results in moderate to marked neural foraminal narrowing. Procedure Note CONVERSION, GENERIC - 11/13/2022 PERFORMED AT [facility] LOCATION:[facility] CLINICAL HISTORY: Low back pain extending into the right lower extremity. COMPARISON: 05/01/2022 TECHNIQUE: Multiplanar MR imaging of the lumbar spine was performed. FINDINGS: The spine is visualized from the H18-R3-V7 levels on the sagittal sequences, assuming a [...] narrowing. At the L5-S1 level, there is bazn-gh-tzpbsfbl diffuse disc bulging and moderate hypertrophic facet changes, which results in moderate to marked neural foraminal narrowing. 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 Report reported and signed by James Vizcaino on 10/19/2022 0180 Disposition: Please schedule with Laila. Patient name: Lawson Vela Are you being referred by a [place] for Spine Health Provider or Pain Management Provider at [facility]? No If answer is YES please [...] the facility where the MRI/CT/myelogram was completed: [facility] Imaging Address: [address] [place] [address] [facility] Address: [address] [id number] MRI/CT/myelogram viewable in Epic: No If not, please provide [phone] to fax in imaging reports for review. [...] physical therapy was completed PT Injections [facility] Address: [address] [place] [id number] Have you tried any other kinds of [...] where the surgery was completed: Additional Comments [phone] (Home Phone) documented in this encounter [facility] 01-28-2023 Note HNO ID: [id number] Author: Mookie Lee Service: ? Author Type: ? Type: [place] Notes Filed: 02/12/2023 12:58 PM Note Text: Patient name: Lawson Vela Are you being referred by a Center for Spine Health Provider or Pain Management Provider at [facility]? No If answer is YES please [...] the facility where the MRI/CT/myelogram was completed: [facility] Imaging Address: [address] [place] [address] [facility] Address: [address] [place] [address] MRI/CT/myelogram viewable in Epic: No If not, please provide [phone] to fax in imaging reports for review. [...] physical therapy was completed PT Injections [facility] Address: [address] [place] [address] Have you tried any other kinds of [...] where the surgery was completed: Additional Comments [phone] (Home Phone) [facility] 12-17-2022 Evaluation note Encounter Date [...] prednisone taper. Advised not to take any dwbb-tfb-ljwrhbg ibuprofen while taking prednisone. OARRS reviewed . [...] spine, education on diet, decrease sugar intake. [employer] Other 05-16-2023 NoteCONSULTATION CONSULTATION DATE: 11/10/2022 TO: [...] our patients to inform us about any zaom-qdv-uguopvn medications or herbal remedies/nutritional supplements/alternative remedies. 2. [...] treatment options with their primary care provider.[id number] Note CONSULTATION CONSULTATION DATE: 10/08/2022 TO: Javad [...] our patients to inform us about any xhhb-zbb-vrvxyfb medications or herbal remedies/nutritional supplements/alternative remedies. 2. [...] treatment options with their primary care provider.[id number] Note CONSULTATION CONSULTATION DATE: 09/10/2022 HISTORY: This [...] a tightness in that region. Medications include Newport 5/325 daily, tizanidine 4 mg q.h.s., Mobic [...] in three months' time unless otherwise indicated.[id number] NoteCONSULTATION PROCEDURE DATE: 09/10/2022 PREOPERATIVE DIAGNOSIS: Bilateral [...] pattern, and patient tolerated the procedure well.[id number] Note CONSULTATION CONSULTATION DATE: 07/23/2022 HISTORY OF [...] current medications include Mobic 50 mg daily, Newport 5/325 per his PCP daily p.r.n. and [...] up in the office after the procedure.[id number] NoteCONSULTATION CONSULTATION DATE: 06/25/2022 HISTORY OF PRESENT [...] with a vitamin regimen and he takes Newport 5/325 daily p.r.n., and Mobic 15 mg [...] following his procedure here in the office.[id number] Hospital Discharge instructions Patient Education 06/01/2022 08:22:09 [...] urethra. Follow these instructions at home: Take rohb-pud-rwewynr and prescription medicines only as told by [...] 06/14/2006 Document Revised: 05/09/2019 Document Reviewed: 07/19/2017 [employer] Patient Education 2020 [employer]. Follow Up Care 02/16/2022 11:28:21 With:PAMELA BAER, Mac Stephenson, URL Address: [facility] [address] , [place] [id number]- When: Unknown [facility] 11-22-2022 NoteCONSULTATION CONSULTATION DATE: 05/19/2022 CHIEF COMPLAINT: [...] The patient currently takes Mobic 15 mg, Newport 5/325 on a p.r.n. basis as prescribed [...] had been performed. CC: Javad Donato M.D.[id number] NoteCONSULTATION CONSULTATION DATE: 04/28/2022 CHIEF COMPLAINT: Left [...] patient takes two Aleve. He also takes Newport 5/[address] Donato has prescribed for [...] to proceed. CC: Javad Donato M.D.[facility]08-22-2022 Hospital Discharge instructions Patient Education 02/16/2022 [...] urethra. Follow these instructions at home: Take noot-hxb-horvgxa and prescription medicines only as told by [...] 06/14/2006 Document Revised: 05/09/2019 Document Reviewed: 07/19/2017 [employer] Patient Education 2020 [employer] 02/16/2022 11:24:04 Calorie Counting for Weight [...] 06/14/2006 Document Revised: 03/03/2019 Document Reviewed: 05/14/2017 [employer] Patient Education 2020 [employer]. Follow Up Care 08/18/2021 12:09:57 With:Mac SANTIAGO MD, URL Address: [address] [place] [address] [place] [address] Business (1) When:Within 6 Month(s) [facility] evaluation + Plan note Future Appointments Appointment Date:06/01/2022 10:45:00 AM Scheduled Provider:Mac SANTIAGO MD Location:[facility] Appointment Type:URO Office Visit [facility] evaluation + Plan note Future Appointments Appointment Date:11/30/2022 08:45:00 AM Scheduled Provider:Mac SANTIAGO MD Location:[facility] Appointment Type:URO Office Visit [facility] evaluation + Plan note Future Appointments Appointment Date:02/05/2025 10:45:00 AM Scheduled Provider:Mac SANTIAGO MD Location:[facility] Appointment Type:URO Office Visit [facility] evaluation noteNo assessment information available [facility] Work Phone: Evaluation noteNort [employer] Other evalvgvffe note* Diagnosis Spinal stenosis, lumbar region with neurogenic claudication- Primary [facility] Diagnosis Spinal stenosis, lumbar region with neurogenic claudication- Primary Bilateral hip joint arthritis [facility] Diagnosis Right hip pain- Primary Pain in joint, pelvic region and thigh Status post total hip replacement, right [facility] Right hip pain- Primary Pain in joint, pelvic region and thigh Status post total hip replacement, right Arthritis of right hip documented in this encounter [facility] note* Diagnosis Right hip pain- Primary Pain in joint, pelvic region and thigh Status post total hip replacement, right Arthritis of right hip Primary osteoarthritis of right hip Status post right hip replacement documented in this encounter [facility] note* Diagnosis Primary osteoarthritis of right hip Status post right hip replacement Right hip pain- Primary Pain in joint, pelvic region and thigh Status post total hip replacement, right Arthritis of right hip [facility]* Diagnosis Primary osteoarthritis of right hip Status post right hip replacement documented [facility]* Diagnosis Left hip pain Pain in joint, pelvic region and thigh Arthritis of left hip documented in this encounter [facility]Evaluation note* Diagnosis Herniated lumbar disc without myelopathy- Primary documented in this encounter [facility]* Diagnosis Status post right hip replacement documented in this encounter [facility] note* Diagnosis Primary osteoarthritis of left hip- Primary Benign essential hypertension (CMS/HCC) Essential hypertension, benign Class 2 severe obesity with serious comorbidity and body mass index (BMI) of 37.0 to 37.9 in adult, unspecified obesity type (CMS/HCC) documented in this encounter [facility]Evaluation note* Diagnosis Post-operative pain- Primary Other acute postoperative pain documented in this encounter [facility] note* Diagnosis Post-operative pain Other acute postoperative pain documented in this encounter [facility]* Diagnosis S/P total left hip arthroplasty- Primary documented in this encounter [facility]* Diagnosis S/P total left hip arthroplasty- Primary documented in this encounter [facility]* Diagnosis S/P total left hip arthroplasty- Primary Left hip pain Pain in joint, pelvic region and thigh documented in this encounter [facility] note* Diagnosis Acute pharyngitis, unspecified etiology- Primary documented in this encounter [facility] note* Diagnosis Routine general medical [...] peripheral vascular disease documented in this encounter [facility]Evaluation note* Diagnosis Left hip pain- Primary Pain in joint, pelvic region and thigh S/P total left hip arthroplasty documented in this encounter [facility] note* Diagnosis Left hip pain- Primary Pain in joint, pelvic region and thigh S/P total left hip arthroplasty documented in this encounter [facility] note* Diagnosis Left hip pain- Primary Pain in joint, pelvic region and thigh S/P total left hip arthroplasty documented in this encounter [facility] note* Diagnosis S/P total left hip arthroplasty- Primary documented in this encounter [facility] note* Diagnosis Left hip pain- Primary Pain in joint, pelvic region and thigh S/P total left hip arthroplasty documented in this encounter [facility]* Diagnosis Left hip pain- Primary Pain in joint, pelvic region and thigh S/P total left hip arthroplasty documented in this encounter [facility]* Diagnosis Left hip pain- Primary Pain in joint, pelvic region and thigh S/P total left hip arthroplasty documented in this encounter [facility]* Diagnosis Acute non-recurrent frontal sinusitis- Primary Herniated lumbar disc without myelopathy documented in this encounter [facility] note* Diagnosis Primary osteoarthritis of right hip- Primary documented [facility]* Diagnosis Preop examination- Primary Unspecified pre-operative examination Hypertension, unspecified type Preop examination Unspecified pre-operative examination Hypertension, unspecified type documented in this encounter [facility]* Diagnosis Herniated lumbar disc without myelopathy IGT (impaired glucose tolerance) Impaired glucose tolerance test Class 2 severe obesity with serious comorbidity and body mass index (BMI) of 37.0 to 37.9 in adult, unspecified obesity type (CMS/HCC) Morbid (severe) obesity due to excess calories (CMS/HCC) Essential (primary) hypertension (CMS/HCC) Unspecified essential hypertension Body mass index (BMI) 38.0-38.9, adult Left hip pain Pain in joint, pelvic region and thigh documented in this encounter [facility]* Diagnosis S/P total left [...] release 2017 Hospitalization History see surg Hx [facility] H.BLOOM Other History general [facility] - [facility] Other Hospital course Narrative No data available for this section [facility] Xamplified progress note No data available for this section [facility] Xamplified reason for referral (narrative)* Diagnostic Procedure Only (Routine) - Pending Review Specialty Diagnoses / Procedures Referred By Rayray barkley Referred To Contact XR IMAGING Diagnoses Bilateral hip joint arthritis Procedures XR HIP BILATERAL 5V PEL/AP/LAT EACH HIP RADEX HIPS BILATERAL WITH PELVIS MINIMUM 5 VIEWS Laila Lewis PA-C [address] [id number] [facility] [place] [address] Referral ID Status Reason Start Date Expiration Date Visits Requested Visits Authorized [id number] Pending Review Auto-Generat ed Referral 3 05/12/2024 1 1 * Consult, Test, Treat (Routine) - Pending Review Specialty Diagnoses / Procedures Referred By Rayray barkley Referred To Contact Orthopedics Diagnoses Bilateral hip joint arthritis Procedures CONSULT TO ORTHOPAEDICS OFFICE/OUTPATIENT [facility] 60-74 MINUTES Laila Lewis PA-C [address] [place] [address] Referral ID Status Reason Start Date Expiration Date Visits Requested Visits Authorized [id number] Pending Review PCP Requested Referral 3 04/12/2024 1 1 [facility] for visit Narrativeself referral- low back pain L4-L5 [facility] H.BLOOM Other reason for visit Narrative* Rehabilitation - Outpatient (Routine) - Authorized Specialty Diagnoses / Procedures Referred By Keyac t Referred To Contact Physical Therapy Diagnoses S/P total left hip arthroplasty Procedures ID OFFICE/OUTPATIENT NEW HIGH MDM Jose Hernández, YISEL [address] [place] [address] Phone: tel: fax: Nagi Plata, PT [address] [place] [address] Phone: tel: fax: Referral ID Status Reason Start Date Expiration Date Visits Requested Visits Authorized [id number] Authorized Consult and Treat 06/12/2024 06/27/2024 10 10 [facility] N[facility]* Rehabilitation - Outpatient (Routine) - Authorized Specialty Diagnoses / Procedures Referred By Keyac t Referred To Contact Physical Therapy Diagnoses S/P total left hip arthroplasty Procedures ID OFFICE/OUTPATIENT NEW HIGH MDM 60 MINUTES Jose Hernández, YISEL [address] [place] [address] Phone: tel: fax: Nagi Plata, PT [address] [place] [address] Phone: tel: fax: Referral ID Status Reason Start Date Expiration Date Visits Requested Visits Authorized [id number] Authorized Consult and Treat 06/29/2024 06/27/2025 20 20 [facility] Narrative* Rehabilitation - Outpatient (Routine) - Authorized Specialty Diagnoses / Procedures Referred By Contac t Referred To Contact Physical Therapy Diagnoses S/P total left hip arthroplasty Procedures ID OFFICE/OUTPATIENT NEW HIGH MDM 60 MINUTES Jose Hernández, YISEL [address] [place] [address] Phone: tel: fax: Nagi Plata, PT [address] [place] [address] Phone: tel: fax: Referral ID Status Reason Start Date Expiration Date Visits Requested Visits Authorized [id number] Authorized Consult and Treat 06/29/2024 06/27/2025 20 [...] Time Advance Directives No December 17 2:40pm Latest Code Status on File Code Status Date Activated Date Inactivated Comments Full Code 07/06/2023 5:59 PM 07/07/2023 4:47 PM Date Activated Date Inactivated Comments 07/06/2023 5:59 PM 07/07/2023 4:47 PM Chief Complaint and Reason for Visit Chief Complaint M54.16 Reason for Referral Specialty Diagnoses / Procedures Referred By Contac t Referred To Contact Diagnoses Preop examination Hypertension, unspecified type Procedures ECG 12 lead Charissa Blair DO [address] [place] [address] Referral ID Status Reason Start Date Expiration Date V isits Requested Visits Authorized [id number] Pending Review 03/06/2024 03/06/2025 1 1 Specialty Diagnoses / Procedures Referred By Contac t Referred To Contact Procedures Remove dressing (specify when) Nagi Miner, LABOR OPERATOR-[facility] [address], [facility] [address] [place] [address] Referral ID Status Reason Start Date Expiration Date V isits Requested Visits Authorized [id number] Pending Review 07/07/2023 07/06/2024 1 1 Specialty Diagnoses / Procedures Referred By Contac t Referred To Contact Procedures Adult diet Nagi Miner, LABOR OPERATOR-[employer] OPERATOR HELPER [address], [facility] [address] [place] [address] Referral ID Status Reason Start Date Expiration Date V isits Requested Visits Authorized [id number] Pending Review 07/07/2023 07/06/2024 1 1 Additional Source Comments Care Team (unrecognized sect ion and content) Team Status: Active Member Role Status Dates Javad Donato II MD Primary Care Provider Active Team Status: Inactive Member Role Status Dates Javad Donato II MD Primary Care Provider Active Erica Xiong GROCERY CHECKER-C Attending Provider Active Animal Trainer Relationship Specialty Start Date End Date Javad Donato MD [address] [place] [address] PCP - ACO Reach 11/19/22 Javad Donato MD [address] [place] [address] PCP - General Internal Medicine 01/05/23 Animal Trainer Relationship Specialty Start Date End Date Javad Donato MD [address] [place] [address] PCP - ACO Reach 11/19/22 Javad Donato MD [address] [place] [address] PCP - General Internal Medicine 01/05/23 Animal Trainer Relationship Specialty Start Date End Date Javad Donato MD [address] [place] [address] PCP - ACO Reach 11/19/22 Javad Donato MD [address] [place] [address] PCP - General Internal Medicine 01/05/23 Animal Trainer Relationship Specialty Start Date End Date Javad Donato MD [address] [place] [address] PCP - ACO Reach 11/19/22 Javad Donato MD [address] [place] [address] PCP - General Internal Medicine 01/05/23 Animal Trainer Relationship Specialty Start Date End Date Javad Donato MD [address] [place] [address] PCP - ACO Reach 11/19/22 Javad Donato MD [address] [place] [address] PCP - General Internal Medicine 01/05/23 Animal Trainer Relationship Specialty Start Date End Date Javad Donato MD [address] [place] [address] PCP - ACO Reach 11/19/22 Javad Donato MD [address] [place] [address] PCP - General Internal Medicine 01/05/23 Animal Trainer Relationship Specialty Start Date End Date Javad Donato MD [address] [place] [address] PCP - ACO Reach 11/19/22 Javad Donato MD [address] [place] [address] PCP - General Internal Medicine 01/05/23 Animal Trainer Relationship Specialty Start Date End Date Javad Donato MD [address] [place] [address] PCP - ACO Reach 11/19/22 Javad Donato MD [address] [place] [address] PCP - General Internal Medicine 01/05/23 Animal Trainer Relationship Specialty Start Date End Date Javad Donato MD [address] [place] [address] PCP - ACO Reach 11/19/22 Javad Donato MD [address] [place], [place] [address] PCP - General Internal Medicine 01/05/23 Animal Trainer Relationship Specialty Start Date End Date Javad Donato MD [address] [place] [address] PCP - ACO Reach 11/19/22 Javad Donato MD [address] [place] [address] PCP - General Internal Medicine 01/05/23 Animal Trainer Relationship Specialty Start Date End Date Javad Donato MD [address] [place] [address] PCP - ACO Reach 11/19/22 Javad Donato MD [address] [place] [address] PCP - General Internal Medicine 01/05/23 Animal Trainer Relationship Specialty Start Date End Date Javad Donato MD [address] [place] [address] PCP - ACO Reach 11/19/22 Javad Donato MD [address] [place] [address] PCP - General Internal Medicine 01/05/23 Animal Trainer Relationship Specialty Start Date End Date Javad Donato MD [address] [place] [address] PCP - ACO Reach 11/19/22 Javad Donato MD [address] [place] [address] PCP - General Internal Medicine 01/05/23 Animal Trainer Relationship Specialty Start Date End Date Javad Donato MD [address] [place] [address] PCP - ACO Reach 11/19/22 Javad Donato MD [address] [place] [address] PCP - General Internal Medicine 01/05/23WednesdayMichelle LPN [address] [place] [address] Licensed Practical Nurse Family Medicine 05/08/24 Animal Trainer Relationship Specialty Start Date End Date Javad Donato MD [address] [place] [address] PCP - ACO Reach 11/19/22 Javad Donato MD [address] [place] [address] PCP - General Internal Medicine 01/05/23WednesdayMichelle LPN [address] [place] [address] Licensed Practical Nurse Family Medicine 05/08/24 Animal Trainer Relationship Specialty Start Date End Date Javad Donato MD [address] [place] [address] PCP - ACO Reach 11/19/22 Javad Donato MD [address] [place] [address] PCP - General Internal Medicine 01/05/23Wednesday, Michelle, [employer] [address] [place] [address] Licensed Practical Nurse Family Medicine 05/08/24 05/16/24 Animal Trainer Relationship Specialty Start Date End Date Javad Donato MD [address] [place] [address] PCP - ACO Reach 11/19/22 Javad Donato MD [address] [place] [address] PCP - General Internal Medicine 01/05/23Wednesday, Michelle [employer] [address] [place] [address] Licensed Practical Nurse Family Medicine 05/08/24 05/16/24 Animal Trainer Relationship Specialty Start Date End Date Javad Donato MD [address] [place] [address] PCP - ACO Reach 11/19/22 Javad Donato MD [address] [place] [address] PCP - General Internal Medicine 01/05/23Wednesday, Michelle, [employer] [address] [place] [address] Licensed Practical Nurse Family Medicine 05/08/24 05/16/24 Animal Trainer Relationship Specialty Start Date End Date Javad Donato MD [address] [place] [address] PCP - ACO Reach 11/19/22 Javad Donato MD [address] [place] [address] PCP - General Internal Medicine 01/05/23 Animal Trainer Relationship Specialty Start Date End Date Javad Donato MD [address] [place] [address] PCP - ACO Reach 11/19/22 Javad Donato MD [address] [place] [address] PCP - General Internal Medicine 01/05/23 Animal Trainer Relationship Specialty Start Date End Date Javad Donato MD [address] [place] [address] PCP - ACO Reach 11/19/22 Javad Donato MD [address] [place] [address] PCP - General Internal Medicine 01/05/23 Animal Trainer Relationship Specialty Start Date End Date Javad Donato MD [address] [place] [address] PCP - ACO Reach 11/19/22 Javad Donato MD [address] [place] [address] PCP - General Internal Medicine 01/05/23 Animal Trainer Relationship Specialty Start Date End Date Javad Donato MD [address] [place] [address] PCP - ACO Reach 11/19/22 Javad Donato MD [address] [place] [address] PCP - General Internal Medicine 01/05/23 Animal Trainer Relationship Specialty Start Date End Date Javad Donato MD [address] [place] [address] PCP - ACO Reach 11/19/22 Javad Donato MD [address] [place] [address] PCP - General Internal Medicine 01/05/23 Animal Trainer Relationship Specialty Start Date End Date Javad Donato MD [address] [place] [address] PCP - ACO Reach 11/19/22 Javad Donato MD [address] [place] [address] PCP - General Internal Medicine 01/05/23 Animal Trainer Relationship Specialty Start Date End Date Javad Donato MD [address] [place] [address] PCP - ACO Reach 11/19/22 Javad Donato MD [address] [place] [address] PCP - General Internal Medicine 01/05/23 Animal Trainer Relationship Specialty Start Date End Date Javad Donato MD [address] [place] [address] PCP - ACO Reach 11/19/22 Javad Donato MD [address] [place] [address] PCP - General Internal Medicine 01/05/23 Animal Trainer Relationship Specialty Start Date End Date Javad Donato MD [address] [place] [address] PCP - ACO Reach 11/19/22 Javad Donato MD [address] [place] [address] PCP - General Internal Medicine 01/05/23 Animal Trainer Relationship Specialty Start Date End Date Javad Donato MD [address] [place] [address] PCP - ACO Reach 11/19/22 Javad Donato MD [address] [place] [address] PCP - General Internal Medicine 01/05/23 Animal Trainer Relationship Specialty Start Date End Date Javad Donato MD [address] [place] [phone] PCP - General Internal Medicine 06/15/17 Animal Trainer Relationship Specialty Start Date End Date Javad Donato MD [address] [place] [phone] PCP - General Internal Medicine 06/15/17 Animal Trainer Relationship Specialty Start Date End Date Javad Donato MD [address] [place] [address] PCP - ACO Reach 11/19/22 Javad Donato MD [address] [place] [id number] PCP - General Internal Medicine 01/05/23 Animal Trainer Relationship Specialty Start Date End Date Javad Donato MD [address] [place] [id number] PCP - ACO Reach 11/19/22 Javad Donato MD [address] [facility] [address] [place] [id number] PCP - General Internal Medicine 01/05/23 (unrecognized sect ion and content) No Status Records FoundNo Status Records FoundNo Status Records FoundNo Status Records FoundNo Status Records FoundNo Status Records FoundNo Status Records FoundNo Status Records FoundNo Status Records Found INFORMATION SOURCE (unrecogn ized section and content) DATE CREATED AUTHOR 05/02/2022 [facility] DATE CREATED AUTHOR AUTHOR'S ORGANIZ ATION 12/04/2022 [facility] DATE CREATED AUTHOR AUTHOR'S ORGANIZ ATION 01/13/2023 [facility] DATE CREATED AUTHOR AUTHOR'S ORGANIZ ATION 02/13/2023 [facility] DATE CREATED AUTHOR AUTHOR'S ORGANIZ ATION 04/17/2023 [facility] DATE CREATED AUTHOR AUTHOR'S ORGANIZ ATION 02/09/2024 [facility] DATE CREATED AUTHOR AUTHOR'S ORGANIZ ATION 05/05/[address] [facility] DATE CREATED AUTHOR AUTHOR'S ORGANIZ ATION 06/18/2024 [facility] DATE CREATED AUTHOR AUTHOR'S ORGANIZ ATION 11/05/2024 [facility] dical Specialists EPIC [...] or prosecute any alcohol or drug abuse patient.[facility] Hospital[facility] the event this information is protected by the Federal Confidentiality of Alcohol and Drug Abuse Patient Records regulations: The Federal rules restrict any use of the information to criminally investigate or prosecute any alcohol or drug abuse patient.[facility] Reason for Visit (unrecogniz ed section and content) Reason Comments New Patient Specialty Diagnoses / Procedures Referred By Contac t Referred To Contact Physical Therapy Diagnoses Presence of artificial hip joint, right Procedures ID OFFICE/OUTPATIENT NEW HIGH MDM 60 MINUTES Charissa Blair, DO [address] [facility] [address] [place] [address] [address] [place] [address] Referral ID Status Reason Start Date Expiration Date Visits Requested Visits Authorized [id number] Authorized Specialty Services Required 07/08/2023 01/04/2024 30 30 Reason Comments Follow-up Reason Comments Pain Reason Onset Date Comments Med Refill 04/12/2024 Reason Comments surgical clearance Pt sched 05/03/24 for left hip replacement with Dr Blair at [facility] completed Reason Onset Date Comments Discharge 05/04/2024 Reason Comments Pain Reason Comments URI Reason Comments Medicare Annual Wellness Visit Subsequen t Med Refill Hydrocodone--malaikaogemac rodas-for back pain pt is going to do some PT but states if that does not help with his back he will want to address it in the future feet are cold Pt states he has had ongoing issues feeling like his feet/toes are really cold to touch, he feels like there is the sensation of socks being bunched up under his feet Specialty Diagnoses / Procedures Referred By Rayray barkley Referred To Contact Diagnoses Primary osteoarthritis of right hip right hip degenerative joint disease Procedures ID TOTAL HIP ARTHROPLASTY REPLACEMENT TOTAL JOINT HIP Charissa Blair, DO [address] [facility] [address] [place] [address] Referral ID Status Reason Start Date Expiration Date Visits Re quested Visits Authorized [id number] 1 1 Reason Comments Hypertension Results Labs 05/2024 [facility] Med Refill Hydrocodone--[facility] [place] Shoulder Pain Left shoulder pain Scheduled Active and Recently Administ ered Medications (unrecognized section and content) Medication Order 07/05/2023 07/06/2023 07/07/2023 ceFAZolin (ANCEF) IVPB 1000 mg/50 mL in iso-osmotic dextrose (20 mg/mL premix) (COMPLETED) 1,000 mg, intravenous, at 100 mL/hr, Administer over 30 Minutes, Once, On Wed07/07/23 at 0645, For 1 dose, Pre-op, Look-alike/sound-alike medication - verify indication for use., Indication: Surgical prophylaxis 0730 (Given - Provid er: YOBANY Kovacs)0745 (Stop Bag - Provider: YOBANY Kovacs) ceFAZolin (ANCEF) IVPB 2000 mg/50 mL in iso-osmotic dextrose (40 mg/mL premix) (COMPLETED) 2,000 mg, intravenous, at 100 mL/hr, Administer over 30 Minutes, Once, On Wed07/07/23 at 0645, For 1 dose, Pre-op, Look-alike/sound-alike medication - verify indication for use., Indication: Surgical prophylaxis 0740 (Given - Provid er: YOBANY Kovacs)0810 (Stop Bag - Provider: YOBANY Kovacs) oxyCODONE (ROXICODONE) immediate release tablet 5 mg (COMPLETED)(Linked Group 1) 5 mg, oral, Once, On Wed07/07/23 at 1045, For 1 dose, PACU (only), Look-alike/sound-alike medication - verify indication for use. Immediate release. 1045 (Canceled Entry - Provider: Vandana Nur RN)1246 (Given - Provider: Janee Viera RN - Comment: pt requested to take medication with snack.) tranexamic acid (LYSTEDA) tablet 1,950 mg (COMPLETED) 1,950 mg, oral, Once, On Wed07/07/23 at 0645, For 1 dose, Pre-op 0713 (Given - Provid er: Tianna Holland RN) tranexamic acid (LYSTEDA) tablet 1,950 mg (COMPLETED) 1,950 mg, oral, Once, On Wed07/07/23 at 1200, For 1 dose 1246 (Given - Provid er: Janee Viera RN) Continuous Medication Order 07/05/2023 07/06/2023 07/07/2023 lactated ringers infusion (CANCELED) 50 mL/hr, intravenous, Continuous, Starting on Wed07/07/23 at 0630, Pre-op, If fluid restriction is not indicated, infuse at a rate up to 5 mL/kg/hr not to exceed the total replacement volume (2 ml/kg/hr) from the time NPO status was initiated. 0712 (New Bag - Prov ider: Tianna Holland RN)0740 (Continued by Anesthesia - Provider: YOBANY Kovacs)0743 (Paused - Provider: YOBANY Kovacs - Comment: Switch to gravity)0744 (Restarted - Provider: YOBANY Kovacs)0958 (Anesthesia Volume Adjustment - Provider: YOBANY Kovacs) PRN Medication Order 07/05/2023 07/06/2023 07/07/2023 bupivacaine PF (MARCAINE) 0.5 % (5 mg/mL) injection (CANCELED) As needed, Starting on Wed07/07/23 at 0959, Intra-op 0959 (Given - Provid er: Charissa Blair DO) fentaNYL (SUBLIMAZE) injection 50 mcg 50 mcg, intravenous, Every 5 min PRN, Pain Scale 6-10, Starting on Wed07/07/23 at 1034, For 3 doses, PACU (only), Up to a maximum dose of 150 mcg. Look-alike/sound-alike medication - verify indication for use. HYDROmorphone (PF) (DILAUDID) injection 0.5 mg 0.5 mg, intravenous, Every 10 min PRN, for Pain Scale 6-10 if pain not controlled by fentanyl, Starting on Wed07/07/23 at 1034, For 2 doses, PACU (only), Up to a maximum of 1.0 mg Look-alike/sound-alike medication - verify indication for use. meperidine (DEMEROL) injection 12.5 mg 12.5 mg, intravenous, Every 15 min PRN, shivering, Starting on Wed07/07/23 at 1034, For 2 doses, PACU (only), May repeat initial dose in 15 minutes, once, if initial meperidine (DEMEROL) dose ineffective for shivering. naloxone (NARCAN) injection 0.1 mg 0.1 mg, intravenous, As needed, respiratory depression, Starting on Wed07/07/23 at 1034, For 4 doses, PACU (only), Maximum dose: 0.4 mg Look-alike/sound-alike medication - verify indication for use. ondansetron (PF) (ZOFRAN) injection 4 mg 4 mg, intravenous, Once as needed, nausea, Starting on Wed07/07/23 at 1034, For 1 dose, PACU (only), Administer over 2-5 minutes. Linked Groups Order Group 1: oxyCODONE (ROXICODONE) immediate release tablet 5 mg (COMPLETED)Jump to med 5 mg, oral, Once, On Wed07/07/23 at 1045, For 1 dose, PACU (only), Look-alike/sound-alike medication - verify indication for use. Immediate release. Or oxyCODONE (ROXICODONE) immediate release tablet 10 mg (COMPLETED) 10 mg, oral, Once, On Wed07/07/23 at 1045, For 1 dose, PACU (only), Look-alike/sound-alike medication - verify indication for use. Immediate release. FOR RECORDS PERTAINING TO PATIENTS WHO ARE [...] BE BASED ON THE PRIMARY CLINICAL RECORDS. [facility] [email or web address] [facility]. provides no warranty or guarantee of the accuracy or completeness of information in this document.
[2024-11-06 08:32] VITALS: BP 140/79; PULSE 82; TEMP 37.7; O2SAT 97
[2024-11-06 08:37] LABS: Glucometer 112 mg/dL (74-106)
[2024-11-06 09:34] VITALS: BP 143/74; BP 160/77; PULSE 82; PULSE 83; O2SAT 96; O2SAT 97
[2024-11-06] MEDS: 0.9 % SODIUM CHLORIDE 10 ML SYRINGE - SALINE FLUSH INJ (09:38)
[2024-11-06] MEDS: BUPIVACAINE HCL 0.25% PF 25 MG/10 ML VIAL INJ (09:38)
--- NOTE | 2024-11-06 09:38 | P.ON_ITS ---
Date of procedure: 11/06/24 Pre-op diagnosis: Pain due to lumbar stenosis with neurogenic claudication Post-op diagnosis: same as pre-op Procedure: Procedure: Left L4-5, L5-S1 transforaminal epidural steroid injection Medications: Bupivacaine 0.25% 2cc, lidocaine 2% 1cc, depomedrol 80mg The patient was seen and examined in the preoperative holding area.? Informed consent was obtained and placed on the chart.? Patient was brought to the medical procedure unit and placed in the prone position where a timeout was completed verifying the correct patient, procedure site, position, and planned special equipment using sterile aseptic technique.? Under direct fluoroscopic visualization a 25-gauge Quincke tipped spinal needle was advanced to the designated neural foramen where contrast dye was injected to show adequate spread.? The needle was inserted at level left L4-5. There was no evidence of vascular or adverse uptake.? Epidural spread was appreciated.? The above- mentioned injectate was then placed in a 1.5 mL aliquot preceded by negative aspiration.? The needle was removed. The needle was inserted and the procedure repeated at level left L5-S1.? The surgery site was covered.? Patient was taken to the postprocedural recovery area and monitored for an appropriate length of time before found suitable for discharge in the accompaniment of a responsible adult. Anesthesia: Local Surgeon: Lidia Fletcher Pathology: none sent Condition: stable Disposition: no change
[2024-11-06] MEDS: LIDOCAINE HCL 2% 400 MG/20 ML MDV 3 ML INJ (09:39)
[2024-11-06] MEDS: IOHEXOL 240 MG/ML - 10 ML VIAL 24 MG INJ (09:39)
[2024-11-06] MEDS: METHYLPREDNISOLONE ACETATE 80 MG/ML VIAL INJ (09:39)
== END 2024-11-06 09:43 | disposition home or self-care (01) ==
LOC: SURGOUT 08:01
PROVIDERS: PCP Internal Medicine; Visit Provider Anesthesiology
DX: M48.062 Spinal stenosis, lumbar region with neurogenic claudication (principal); M54.50 Low back pain, unspecified; E11.8 Type 2 diabetes mellitus with unspecified complications
CPT/HCPCS: 36415; 64483; 64484; 82948; J0665; J1010; Q9966

== ENCOUNTER 2024-11-15 07:48 | Outpatient (OUT) | payer MEDICARE, OTHER, SELFPAY ==
--- OUTSIDE RECORDS SUMMARY | 2024-11-15 07:53 | XMS_ITS | CCD ---
Author Organization [facility] Care Team Providers Care Manager Global Name Role Phone JAVAD DONATO Primary Care [...] Xiong Unavailable SIMONA Donato Primary Care Provider [phone] ANGELA Xiong Attending Provider Erica Xiong Admitting [...] Referring Unavailable JAVAD DONATO Primary Care Unavailable [place], CHARISSA Rose Referring Unavailable JAVAD DONATO Primary Care Unavailable [place], CHARISSA Rose Admitting Unavailable NURY, CHARISSA Rose Attending Unavailable JAVAD DONATO Primary Care Unavailable Wednesday BACK ORDER CLERK, Michelle Unavailable Wednesday BACK ORDER CLERK, Michelle Unavailable Javad Donato MD Primary Care Provider [phone] JEANNA MENDIOLA Attending Unavailable EDGAR, JOSE Barkley [...] Unavailable NURY, CHARISSA Rose Referring Unavailable JAVAD DOANTO Attending Unavailable NURY, CHARISSA Rose Attending Unavailable [...] sources) carvedilol; Translations: [CARVEDILOL] Drug Allergy 06-29-2022 [facility] Medications Current Medications Medication Drug Class(es) Dates [...] every six hours for pain HYDROcodone-aceta minophen (Porter) 5-325 MG tablet Indications: Herniated lumbar disc without myelopathy Take 1 tablet by mouth every 6 (six) hours if needed for severe pain 40 tablet 10/25/2024 Active Start: 02-07-2024 take 1 tablet by yvon th every six hours Porter 325 mg-5 mg oral tablet 1 tab(s), [...] capsule (3 sources) take 1 capsule by [facility] in the morning selenium 200 mcg capsule [...] Active Start: 06-30-2021 take 1 capsule by [facility] twice daily tamsulosin 0.4 mg Cap 0.4 mg = 1 cap(s), Oral, BID, # 60 cap(s), Refills(s) 11, Pharmacy: [facility] [id number], 186, cm, 02/08/23 11:10:00 EDT, Height/Length Dosing, [...] Unremarkable left total hip arthroplasty. Jose Hernández RECOOPERER-SUPERVISOR [employer] [facility] [employer] [facility] Radiology Study observation (narrative) [facility] - Hematology and Cell countson 10-25-2024 HbA1c (Bld) [Mass fraction] 5.8 % [facility] [employer] No Panel Informationon 10-25 [facility] e MR LUMBAR SPINE WO CONTRASTo n [...] BY: Clark Landeros, DO Normal Not Available [facility] US LOWER EXTREMITY MEGHNA RIAL DUPLEX BILATERALon 06-22-2024 [facility] US LOWER EXTREMITY ARTERIAL DUPLEX BILATERAL [...] Location: Velocity/Waveform Location: Velocity/Waveform THIGH: THIGH: R ANNEALING OVEN OPERATOR: 165 T L ANNEALING OVEN OPERATOR: 119 T R SFA PROX: 101 T L SFA PROX: 121 T R SFA MID: 96 T L SFA MID 103 T R SFA DIST: 104 T L SFA DIST: 81 T R POP A: 54 T L POP A: 65 T CALF: CALF: R KAMERON: 111 T L KAMERON: 80 T R CIVIL ENGINEERING PROJECT DESIGNER PROX: 105 T L CIVIL ENGINEERING PROJECT DESIGNER PROX: 123 T R CIVIL ENGINEERING PROJECT DESIGNER MID: 139 T L CIVIL ENGINEERING PROJECT DESIGNER MID: 125 T R CIVIL ENGINEERING PROJECT DESIGNER DIST: 129 T L CIVIL ENGINEERING PROJECT DESIGNER DIST: 151 T R SALINAS: 105 B L SALINAS: 76 T IMPRESSION: No significant findings. Mild plaque in the right common femoral artery with less than 50% stenosis. *This report is generated using voice recognition reporting (OMNIlife science). On occasion RUNcribe erroneously drops words from the report or [...] Comment on above: Performed By: #### 1 012, 52408 #### [facility] [address] [place] [address] Progress Man: Katarzyna Khan #### 5363, 4900, 496 #### [facility] [address], [address] [place], [place] [phone] Progress Man: Casey Chi MD Hematocrit (Bld) [Volume fraction] 37.3 % Low 38.5-50.0 [facility] Comment on above: Performed By: #### 1 306, 82075 #### [facility] [place] [address] Progress Man: Katarzyna Khan #### 5363, 8260, 496 #### [facility] [address] , [address] [place] [address] Progress Man: Casey Chi MD Hemoglobin (Bld) [Mass/Vol] 12.0 g/dL Low 13.2-17.1 [facility] Comment on above: Performed By: #### 1 759, 01673 #### [facility] [address] [place] [address] Progress Man: Katarzyna Khan #### 5363, 7600, 496 #### [facility] [address] , [address] [place] [address] Progress Man: Casey Chi MD MCH (RBC) [Entitic mass] 28.0 pg Normal 27.0-33.0 [facility] Comment on above: Performed By: #### 1 759, 10287 #### [facility] Progress Man: Katarzyna Khan #### 5363, 3080, 496 #### [facility] [address] , [address] [place] [address] Progress Man: Casey Chi MD MCHC (RBC) [Mass/Vol] 32.2 [...] clinical condition. Performed By: #### 1 759, 51559 #### [facility] [address] [place] [address] Progress Man: Katarzyna Khan #### 5363, 6460, 496 #### [facility] [address], [address] [place], [place] [phone] Progress Man: Casey Chi MD MCV (RBC) [Entitic vol] 86.9 fL Normal 80.0-100.0 [facility] Comment on above: Performed By: #### 1 759, 74499 #### [facility] [address] [place] [address] Progress Man: Katarzyna Khan #### 5363, 7600, 496 #### [facility] [address], [address] [place] [address] Progress Man: Casey Chi MD Platelet mean volume (Bld) [Entitic vol] 9.1 fL Normal 7.5-12.5 [facility] Comment on above: Performed By: #### 1 759, 71141 #### [facility] [address] [place] [address] Progress Man: Katarzyna Khan #### 5363, 7600, 496 #### [facility] [address], [address] [place] [address] Progress Man: Casey Chi MD Platelets (Bld) [#/Vol] 242 10*3/uL Normal 140-400 [facility] Comment on above: Performed By: #### 1 759, 63451 #### [facility] [place] [address] Progress Man: Katarzyna Khan #### 5363, 7600, 496 #### [facility] [address], [address] [place] [address] Progress Man: Casey Chi MD RBC (Bld) [#/Vol] 4.29 10*6/uL Normal 4.20-5.80 [facility] Comment on above: Performed By: #### 1 759, 42852 #### [facility] [address] [place] [address] Progress Man: Katarzyna Khan #### 5363, 7600, 496 #### [facility] [address], [address] [place] [address] Progress Man: Casey Chi MD WBC (Bld) [#/Vol] 7.7 10*3/uL Normal 3.8-10.8 [facility] Comment on above: Performed By: #### 1 759, 01015 #### [facility] [address] [place], [place] [address] Progress Man: Katarzyna Khan #### 5363, 7600, 496 #### [facility] [address], [address] [place] [address] Progress Man: Casey Chi MD [facility] METABOLIC [facility] 06-15-2024 Albumin [Mass/Vol] 3.9 g/dL Normal 3.6-5.1 [facility] Comment on above: Performed By: #### 1 759, 41935 #### [facility] [address] [place] [address] Progress Man: Katarzyna Khan #### 5363, 7600, 496 #### [facility] [address], [address] [place] [address] Progress Man: Casey Chi MD Albumin/Globulin [Mass ratio] 1.5 {ratio} Normal 1.0-2.5 [facility] Comment on above: Performed By: #### 1 759, 05682 #### [facility] [address] [place] [address] Progress Man: Katarzyna Khan #### 5363, 7600, 496 #### [facility] [address], [address] [place] [address] Progress Man: Casey Chi MD ALP [Catalytic activity/Vol] 71 U/L Normal 35-144 [facility] Comment on above: Performed By: #### 1 759, 16795 #### [facility] [address] [place] [address] Progress Man: Katarzyna Khan #### 5363, 7600, 496 #### [facility] [address], [address] [place] [address] Progress Man: Casey Chi MD ALT [Catalytic activity/Vol] 18 U/L Normal 9-46 [facility] Comment on above: Performed By: #### 1 759, 38263 #### [facility] [address] [place], [place] [address] Progress Man: Katarzyna Khan #### 5363, 7600, 496 #### [facility] [address] [place] [address], [address] [place] [address] Progress Man: Casey Chi MD AST [Catalytic activity/Vol] 18 U/L Normal 10-35 [facility] Comment on above: Performed By: #### 1 759, 80349 #### [facility] [address] [place] [address] Progress Man: Katarzyna Khan #### 5363, 7600, 496 #### [facility] [address] [place] [address], [address] [place] [address] Progress Man: Casey Chi MD Bilirubin [Mass/Vol] 0.6 mg/dL Normal 0.2-1.2 [facility] Comment on above: Performed By: #### 1 759, 17522 #### [facility] [address] [place] [address] Progress Man: Katarzyna Khan #### 5363, 7600, 496 #### [facility] [address], [address] [place] [address] Progress Man: Casey Chi MD BUN/CREATININE RATIO SEE NOTE: Normal 6-22 [facility] Comment on above: Result Comment: Not Reported: BUN and Creatinine are within reference range. Performed By: #### 1 759, 49703 #### [facility] [address] [place] [address] Progress Man: Katarzyna Khan #### 5363, 7600, 496 #### [facility] [address] [facility], [address] [place] [address] Progress Man: Casey Chi MD Calcium [Mass/Vol] 9.2 mg/dL Normal 8.6-10.3 [facility] Comment on above: Performed By: #### 1 759, 75465 #### [facility] [address] [place], [place] [address] Progress Man: Katarzyna Khan #### 5363, 7600, 496 #### [facility] [address] , [address] [place], [place] [phone] Progress Man: Casey Chi MD Chloride [Moles/Vol] 105 mmol/L Normal 98-110 [facility] Comment on above: Performed By: #### 1 759, 78018 #### [facility] [address] [place] [address] Progress Man: Katarzyna Khan #### 5363, 7600, 496 #### [facility] [address], [address] [place], [place] [phone] Progress Man: Casey Chi MD CO2 [Moles/Vol] 26 mmol/L Normal 20-32 [facility] Comment on above: Performed By: #### 1 759, 02352 #### [facility] [address] [place] [address] Progress Man: Katarzyna Khan #### 5363, 7600, 496 #### [facility] [address], [address] [place], [place] [phone] Progress Man: Casey Chi MD Creatinine [Mass/Vol] 0.82 mg/dL Normal 0.70-1.28 [facility] Comment on above: Performed By: #### 1 759, 75316 #### [facility] [address] [place] [address] Progress Man: Katarzyna Khan #### 5363, 7600, 496 #### [facility] [address] [facility], [address] [place], [place] [phone] Progress Man: Casey Chi MD GFR/1.73 sq M.predicted among non-blacks MDRD (S/P/Bld) [Vol rate/Area] 94 mL/min/{1.73_m2} Normal > OR = 60 [facility] Comment on above: Performed By: #### 1 759, 92077 #### [facility] [address] [place], [place] [address] Progress Man: Katarzyna Khan #### 5363, 7600, 496 #### [facility] [address], [address] [place] [address] Progress Man: Casey Chi MD Globulin (S) [Mass/Vol] 2.6 g/dL Normal 1.9-3.7 [facility] Comment on above: Performed By: #### 1 759, 53901 #### [facility] [address] [place], [place] [address] Progress Man: Katarzyna Khan #### 5363, 7600, 496 #### [facility] [place] [address] Progress Man: Casey Chi MD Glucose [Mass/Vol] 106 mg/dL High 65-99 [facility] Comment on above: Result Comment: Fasting reference interval For someone without known diabetes, a glucose value between 100 and 125 mg/dL is consistent with prediabetes and should be confirmed with a follow-up test. Performed By: #### 1 759, 87913 #### [facility] [address] Progress Man: Katarzyna Khan #### 5363, 7600, 496 #### [facility] [address], [address] [place] [address] Progress Man: Casey Chi MD Potassium [Moles/Vol] 4.1 mmol/L Normal 3.5-5.3 [facility] Comment on above: Performed By: #### 1 759, 90222 #### [facility] [address] [place], [place] [address] Progress Man: Katarzyna Khan #### 5363, 7600, 496 #### [facility] [address], [address] [place] [address] Progress Man: Casey Chi MD Protein [Mass/Vol] 6.5 g/dL Normal 6.1-8.1 [facility] Comment on above: Performed By: #### 1 759, 43267 #### [facility] [address] [place] [address] Progress Man: Katarzyna Khan #### 5363, 7600, 496 #### [facility] [address], [address] [place], [place] [phone] Progress Man: Casey Chi MD Sodium [Moles/Vol] 139 mmol/L Normal 135-146 [facility] Comment on above: Performed By: #### 1 759, 29541 #### [facility] [address] [place] [address] Progress Man: Katarzyna Khan #### 5363, 7600, 496 #### [facility] [address], [address] [place] [address] Progress Man: Casey Chi MD Urea nitrogen [Mass/Vol] 16 mg/dL Normal 7-25 [facility] Comment on above: Performed By: #### 1 759, 15701 #### [facility] [address] [place] [address] Progress Man: Katarzyna Khan #### 5363, 7600, 496 #### [facility] [address], [address] [place] [address] Progress Man: Casey Chi MD HEMOGLOBIN A1con 06-15-2024 HEMOGLOBIN [...] diagnosis of diabetes in children. According to [place] Diabetes Association (ADA) guidelines, hemoglobin A1c <7.0% represents optimal control in non- diabetic patients. Different metrics may apply to specific patient populations. Standards of Medical Care in Diabetes(ADA). Performed By: #### 1 759, 65463 #### [facility] [address] [place], [place] [address] Progress Man: Katarzyna Khan #### 5363, 7600, 496 #### [facility] [address] [place] [address], [address] [place] [address] Progress Man: Casey Chi MD LIPID PANEL, [address] Cholesterol [Mass/Vol] 172 mg/dL Normal <200 [facility] Comment on above: Order Comment: FASTI NG:YES FASTING: YES Performed By: #### 1 759, 03656 #### [facility] [address] [place], [place] [address] Progress Man: Katarzyna Khan #### 5363, 7600, 496 #### [facility] [address], [address] [place] [address] Progress Man: Casey Chi MD Cholesterol in HDL [Mass/Vol] 32 mg/dL Low > OR = 40 [facility] Comment on above: Order Comment: FASTI NG:YES FASTING: YES Performed By: #### 1 759, 01374 #### [facility] [address] [place], [place] [address] Progress Man: Katarzyna Khan #### 5363, 7600, 496 #### [facility] [address], [address] [place] [address] Progress Man: Casey Chi MD Cholesterol in LDL [Mass/Vol] [...] LDL-C. Humberto SS et al. LULU. 2013;310(19): 0281-3783 (http://education.[facility].com/faq/JGI574) Performed By: #### 1 759, 00924 #### [facility] [address] [place] [address] Progress Man: Katarzyna Khan #### 5363, 7600, 496 #### [facility] [address] [place] [address], [address] [place] [address] Progress Man: Casey Chi MD Cholesterol.total/ Cholesterol in HDL [Mass ratio] 5.4 {ratio} High <5.0 [facility] Comment on above: Order Comment: FASTI NG:YES FASTING: YES Performed By: #### 1 759, 90567 #### [facility] [address] [place], [place] [address] Progress Man: Katarzyna Khan #### 5363, 7600, 496 #### [facility] [address], [address] [place] [address] Progress Man: Casey Chi MD NON HDL CHOLESTEROL 140 mg/dL (calc) High <130 [facility] Comment on above: Order Comment: FASTI NG:YES FASTING: YES Result Comment: For patients with diabetes plus 1 major ASCVD risk factor, treating to a non-HDL-C goal of <100 mg/dL (LDL-C of <70 mg/dL) is considered a therapeutic option. Performed By: #### 1 759, 51858 #### [facility] [address] [place], [place] [address] Progress Man: Katarzyna Khan #### 5363, 7600, 496 #### [facility] [address], [address] [place] [address] Progress Man: Casey Chi MD Triglyceride [Mass/Vol] 299 mg/dL High <150 [facility] Comment on above: Order Comment: FASTI NG:YES FASTING: YES Result Comment: If a non-fasting specimen was collected, consider repeat triglyceride testing on a fasting specimen if clinically indicated. Fabiola et al. J. of Clin. Lipidol. 2015;9:129-169. Performed By: #### 1 759, 08931 #### [facility] [address] [place] [address] Progress Man: Katarzyna Khan #### 5363, 7600, 496 #### [employer] [address], [address] [place], [place] [phone] Progress Man: Casey Chi MD PSA, TOTALon 06-15-2024 PSA, TOTAL 0.43 ng/mL Normal < OR = 4.00 [employer] [facility] Comment on above: Result Comment: The total PSA value from this assay system is standardized against the WHO standard. The test result will be approximately 20% lower when compared to the equimolar-standardized total PSA (Dee Dee Hunker). Comparison of serial PSA results should be interpreted with this fact in mind. This test was performed using the Siemens chemiluminescent method. Values obtained from different assay methods cannot be used interchangeably. PSA levels, regardless of value, should not be interpreted as absolute evidence of the presence or absence of disease. Performed By: #### 1 759, 50867 #### [facility] [address] [place] [address] Progress Man: Katarzyna Khan #### 5363, 7600, 496 #### [employer] [address], [address] [place], [place] [phone] Progress Man: Casey Chi MD XR Hip - left [...] Unremarkable left total hip arthroplasty. Jose Hernández APRN-SUPERVISOR [employer] [facility] [employer] Radiology Study observation (narrative) [facility] XR HIP LT 2-3 VIEWS [...] Delcid MD on 05/03/2024 10:26 AM Normal [facility] XR Hip - left 3 Viewson 03-28 Imaging Result: April 06, 2024 x-rays AP and lateral of the left hip demonstrate joint space collapse with subchondral sclerosis and osteophyte formation consistent with arthritis. Impression: Arthritis of the left hip Amauri Blair D.O. [facility] [employer] XR Hip - left 3 Viewson 03-28 Radiology Study observation (narrative) [facility] BASIC METABOLIC PANLon 04-04 Anion gap [Moles/Vol] 9 mmol/L Normal 5-15 [facility] Comment on above: Performed By: #### C BCA, BMP #### [facility] ([id number]) [address], [address] [place] [address] Calcium [Mass/Vol] 9.8 mg/dL Normal 8.5-10.5 [facility] Comment on above: Performed By: #### C BCA, BMP #### [facility] ([id number]) [address], [address] [place] [address] Chloride [Moles/Vol] 103 mmol/L Normal 98-109 [facility] Comment on above: Performed By: #### C BCA, BMP #### [facility] ([id number]) [address], [address] [place] [address] CO2 [Moles/Vol] 27 mmol/L Normal 22-32 [facility] Comment on above: Performed By: #### C BCA, BMP #### [facility] ([id number]) [address], [address] [place] [address] Creatinine [Mass/Vol] 0.89 mg/dL Normal 0.60-1.30 [facility] Comment on above: Result Comment: METH OD TRACEABLE TO IDMS STANDARD Performed By: #### C BCA, BMP #### [facility] ([id number]) [address], [address] [place] [address] eGFR (CKD-EPI) NON-RACE DEPENDENT >90 Normal >59 [facility] Comment on above: Result Comment: Reported eGFR is based on the CKD-EPI 2020 equation that does not use a race coefficient. Performed By: #### C BCA, BMP #### [facility] ([id number]) [address], [address] [place] [address] Glucose [Mass/Vol] 101 mg/dL High 65-99 [facility] Comment on above: Performed By: #### C BCA, BMP #### [facility] ([id number]) [address], [address] [place] [address] Potassium [Moles/Vol] 4.1 mmol/L Normal 3.5-5.0 [facility] Comment on above: Performed By: #### C BCA, BMP #### [facility] ([id number]) [address], [address] [place] [address] Sodium [Moles/Vol] 139 mmol/L Normal 134-146 [facility] Comment on above: Performed By: #### C BCA, BMP #### [facility] ([id number]) [address] [address] [place] [address] Urea nitrogen [Mass/Vol] 19 mg/dL Normal 5-27 [facility] Comment on above: Performed By: #### C BCA, BMP #### [facility] ([id number]) [address] [place] [address] Basic Metabolic Panelon 10-0 Anion gap [Moles/Vol] 9 mmol/L 5 - 15 mmol/L [facility] Calcium [Mass/Vol] 9.8 mg/dL 8.5 - 10. 5 mg/dL [facility] Chloride [Moles/Vol] 103 mmol/L 98 - 109 mmol/L [facility] CO2 [Moles/Vol] 27 mmol/L 22 - 32 mmol/L [facility] Creatinine [Mass/Vol] 0.89 mg/dL 0.60 - 1.30 mg/dL [facility] Comment on above: METHOD TRACEABLE TO IDSD STANDARD eGFR (CKD-EPI)non-race dependent - PINF [facility] Comment on above: Reported eGFR is based on the CKD-EPI 2020 equation that does not use a race coefficient. Glucose [Mass/Vol] 101 mg/dL High 65 - 99 mg/dL [facility] Interpretation and review of laboratory results Abnormal [facility] Potassium [Moles/Vol] 4.1 mmol/L 3.5 - 5.0 mmol/L [facility] Sodium [Moles/Vol] 139 mmol/L 134 - 146 mmol/L [facility] Urea nitrogen [Mass/Vol] 19 mg/dL 5 - 27 mg/dL [facility] CBC AND AUTO DIFFon 04-04-20 ABSOLUTE BASOPHIL 0.0 X10E9/L Normal 0.0-0.2 [facility] Comment on above: Performed By: #### C BCA, BMP #### [facility] ([id number]) [address] [place] [address], [address] [place] [address] ABSOLUTE NEUTROPHIL 4.6 X10E9/L Normal 1.5-6.6 [facility] Comment on above: Performed By: #### Manuela BCA, BMP #### [facility] ([id number]) [address] [place] [address], [address] [place] [address] Basophils/100 WBC (Bld) 0.4 % Normal [facility] Comment on above: Performed By: #### Manuela BCA, BMP #### [facility] ([id number]) [address] [place] [address], [address] [place] [address] Eosinophils (Bld) [#/Vol] 0.1 10*3/uL Normal 0.0-0.4 [facility] Comment on above: Performed By: #### Manuela BCA, BMP #### [facility] ([id number]) [address], [address] [place] [address] Eosinophils/100 WBC (Bld) 1.8 % Normal [facility] Comment on above: Performed By: #### C SHERITA, BMP #### [facility] ([id number]) [address], [address] [place] [address] Erythrocyte distribution width (RBC) [Ratio] 15.1 % High 11.5-15.0 [facility] Comment on above: Performed By: #### C SHERITA, BMP #### [facility] LAB ([id number]) [address], [address] [place] [address] Hematocrit (Bld) [Volume fraction] 36.7 % Low 39-49 [facility] Comment on above: Performed By: #### C SHERITA, BMP #### [facility] ([id number]) [address], [address] [place] [address] Hemoglobin (Bld) [Mass/Vol] 12.5 g/dL Low 13.0-17.0 [facility] Comment on above: Performed By: #### C SHERITA, BMP #### [facility] ([id number]) [address], [address] [place] [address] Lymphocytes (Bld) [#/Vol] 1.4 10*3/uL Normal 1.0-3.5 [facility] Comment on above: Performed By: #### C SHERITA, BMP #### [facility] ([id number]) [address], [address] [place] [address] Lymphocytes/100 WBC (Bld) 21.3 % Normal [facility] Comment on above: Performed By: #### C SHERITA, BMP #### [facility] ([id number]) [address], [address] [place] [address] MCH (RBC) [Entitic mass] 30.1 pg Normal 27-34 [facility] Comment on above: Performed By: #### C SHERITA, BMP #### [facility] ([id number]) [address], [address] [place] [address] MCHC (RBC) [Mass/Vol] 34.0 g/dL Normal 32-36 [facility] Comment on above: Performed By: #### C SHERITA, BMP #### [facility] ([id number]) [address], [address] [place] [address] MCV (RBC) [Entitic vol] 89 fL Normal 80-100 [facility] Comment on above: Performed By: #### C SHERITA, BMP #### [facility] ([id number]) [address] [place] [address] Monocytes (Bld) [#/Vol] 0.6 10*3/uL Normal 0-0.9 [facility] Comment on above: Performed By: #### C SHERITA, BMP #### [facility] ([id number]) [address], [address] [place] [address] Monocytes/100 WBC (Bld) 8.6 % Normal [facility] Comment on above: Performed By: #### C SHERITA, BMP #### [facility] ([id number]) [address] [place] [address] Neutrophils/100 WBC (Bld) 67.9 % Normal [facility] Comment on above: Performed By: #### C SHERITA, BMP #### [facility] ([id number]) [address], [address] [place] [address] Platelet mean volume (Bld) [Entitic vol] 8.0 fL Normal 7-12 [facility] Comment on above: Performed By: #### C SHERITA, BMP #### [facility] ([id number]) [address], [address] [place] [address] Platelets (Bld) [#/Vol] 205 10*3/uL Normal 150-450 [facility] Comment on above: Performed By: #### Manuela MAGALLON, BMP #### [facility] ([id number]) [address], [address] [place] [address] RBC COUNT 4.14 X10E12/L Normal 4.10-5.70 [facility] Comment on above: Performed By: #### Manuela MAGALLON, BMP #### [facility] ([id number]) [address], [address] [place] [address] WBC (Bld) [#/Vol] 6.7 10*3/uL Normal 4.0-11.0 [facility] Comment on above: Performed By: #### Manuela MAGALLON, BMP #### [facility] ([id number]) [address], [address] [place] [address] CBC auto differentialon 10-0 Basophils (Bld) [#/Vol] 0.0 10*3/uL [facility] Basophils/100 WBC (Bld) 0.4 % [facility] Eosinophils (Bld) [#/Vol] 0.1 10*3/uL [facility] Eosinophils/100 WBC (Bld) 1.8 % [facility] Erythrocyte distribution width (RBC) [Ratio] 15.1 % High 11.5 - 15.0 % [facility] Hematocrit (Bld) [Volume fraction] 36.7 % Low 39 - 49 % [facility] Hemoglobin (Bld) [Mass/Vol] 12.5 g/dL Low 13.0 - 17.0 g/dL [facility] Interpretation and review of laboratory results Abnormal [facility] Lymphocytes (Bld) [#/Vol] 1.4 10*3/uL [facility] Lymphocytes/100 WBC (Bld) 21.3 % [facility] MCH (RBC) [Entitic mass] 30.1 pg 27 - 34 pg [facility] MCHC (RBC) [Mass/Vol] 34.0 g/dL 32 - 36 g/dL [facility] MCV (RBC) [Entitic vol] 89 fL 80 - 100 fL [facility] Monocytes (Bld) [#/Vol] 0.6 10*3/uL [facility] Monocytes/100 WBC (Bld) 8.6 % [facility] Neutrophils (Bld) [#/Vol] 4.6 10*3/uL [facility] Neutrophils/100 WBC (Bld) 67.9 % [facility] Platelet mean volume (Bld) [Entitic vol] 8.0 fL 7 - 12 fL [facility] Platelets (Bld) [#/Vol] 205 10*3/uL [facility] RBC (Bld) [#/Vol] 4.14 10*6/uL [facility] WBC corrected for nucl RBC Auto (Bld) [#/Vol] 6.7 [facility] ECG 12 leadon 04-04-2024 TRACEMASTERVUE [facility] Ambulatory Visit Summaryon 0 02-07-2024 Ambulatory [...] Strength 500 mg oral tablet) acetaminophen-hydroco done (Porter 325 mg-5 mg oral tablet) ascorbic acid [...] [facility] [address] [place] [address]- Medications What How Much When Instructions Unchanged [...] if questions or concerns Unchanged acetaminophen-hydroco done (Porter 325 mg-5 mg oral tablet) 1 Tablets [...] 50 ye (more content not included)... Normal [facility] Urology Office/Clinic Noteon 02-07-2024 [...] [place], URL [facility] [address] [place] [address]- Additional Instructions: 1 yr Patient Education Benign [...] tablet, 200 mg= 1 tab(s), Oral, q24hr Porter 325 mg-5 mg oral tablet, 1 tab(s), [...] 1 c (more content not included)... Normal [facility] Comment on above: Result [...] right total hip replacement Amauri Blair D.O. [facility] Radiology Study observation (narrative) [facility] XR Hip - right 3 ViewsOrdere d By: Charissa [facility]-2023 [facility] ABO Rh Repeaton [...] Delcid MD on 07/07/2023 11:06 AM Normal [facility] XR Pelvis and Hip - right 2 [...] Price Delcid MD on 07/07/2023 11:06 AM [employer] Radiology Study observation (narrative) [employer] XR Pelvis and Hip - right 2 ViewsOrdered By: Price Delcid on 07-07-2023 [employer] Work Phone: CNOVon 04-13-2023 CNOV Office Visit (SPSLUH ) LAWSON VELA ([id number]) 1955 [facility] Date Time Provider Department 04/13/23 11:00 AM [facility] During your visit today, we recorded the [...] week. 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 [facility] XR lumbar spine 6V w bending on 12-17-2022 XR lumbar spine 6V w bending [facility] Main [employer] [address] [place] [address] XRay Report Signed Patient: Lawson Vela MR#: [id number] : 1955 Acct:[id number] Age/Sex: 67 / M ADM Date: 12/17/22 Loc: XD Room: Type: [facility] Attending Dr: Erica BEDOYAC Copies to: ANGELA [...] Cobian Jr., Belle12/17/2022 3:16 PM Dictation Location: [place] [address] Transcribed By: [facility] 12/17/22 1516 Dictated By: Lenny Cobian Jr DO 12/17/22 1514 Signed By: 12/17/22 1516 [facility] XR lumbar spine 6V w bending [facility] [employer] Other XR lumbar spine 6V w bending [facility] [employer] Other XR lumbar spine 6V w bending [address] [place] [address] [employer] Other XR lumbar spine 6V w bending [place] [id number] [employer] Other XR lumbar spine 6V w bending XRay Report [employer] Other XR lumbar spine 6V w bending Signed [employer] Other XR lumbar spine 6V w bending Patient: Lawson Vela MR#: [id number] [employer] Other XR lumbar spine 6V w bending : 1955 Acct:[id number] [employer] Other XR lumbar spine 6V w bending Age/Sex: 67 / M ADM Date: 12/17/22 [employer] Other XR lumbar spine 6V w bending Loc: XD Room: Type: [facility] [employer] Other XR lumbar spine 6V w bending Attending Dr: Erica BEDOYAC [employer] Other XR lumbar spine 6V w bending Copies to: AURELIANO KhanC [employer] Other XR lumbar spine 6V w bending Ordering Provider: Erica Xiong [employer] Other XR lumbar spine 6V w bending Date of Service: 12/17/22 [employer] Other XR lumbar spine 6V w bending XR/XR lumbar spine 6V w bending: M54.16 [employer] Other XR lumbar spine 6V w bending LUMBAR SPINE - 6 views [employer] Other XR lumbar spine 6V w bending CLINICAL HISTORY: Right leg pain and numbness that radiates to toes [employer] Other XR lumbar spine 6V w bending COMPARISON: None [employer] Other XR lumbar spine 6V w bending FINDINGS: Vertebral body heights appear maintained. Diffuse endplate and facet joint degenerative [employer] Other XR lumbar spine 6V w bending changes. Mild diffuse disc space narrowing with relative sparing of L5-S1. No pathological motion [employer] Other XR lumbar spine 6V w bending on flexion or extension views. Limited sidebending. [employer] Other XR lumbar spine 6V w bending XR/XR lumbar spine 6V w bending [employer] Other XR lumbar spine 6V w bending IMPRESSION: [employer] Other XR lumbar spine 6V w bending DEGENERATIVE CHANGES OF THE LUMBAR SPINE WITH MILD DIFFUSE DISC SPACE NARROWING WITH RELATIVE [employer] Other XR lumbar spine 6V w bending SPARING OF L5-S1. [employer] Other XR lumbar spine 6V w bending Impression dictated by: Lenny Cobian Jr. DFabioOFabio12/17/2022 3:16 PM [employer] Other XR lumbar spine 6V w bending Dictation Location: [place] [address] [employer] Other XR lumbar spine 6V w bending Transcribed By: ROMY 12/17/22 1516 [employer] Other XR lumbar spine 6V w bending Dictated By: Lenny Cobian Jr, DO 12/17/22 9785 [employer] Other XR lumbar spine 6V w bending Signed By: [employer] Other XR lumbar spine 6V w bending 12/17/22 4145 [employer] Other XR HIPS TRENT 3_4V WO PELVISon [...] by: DEVIN KNAPP Date: 2022-11-13 13:07 Normal [facility] MRI Lumbar Spine w/oon 05-01 MRI Lumbar [...] 1217 Normal [facility] XR Orbits for MRIon 04-27-20 22 XR Orbits for MRI CLINICAL HISTORY: Prescreening for MRI. COMPARISON: None. RESULT: No radiopaque foreign bodies. No acute osseous findings. IMPRESSION: No radiopaque foreign bodies. Report reported and signed by Javad Dickens on 04/27/2022 1540 Normal [facility] XR Spine Lumbar 4+ Views*on 04-06-2022 XR [...] by Lenny Cook on 04/06/2022 1106 Normal [facility] Landscape Crew Member Vital Signs Date Time Vital Sign Value Performing Clinician Facility 10-25-2024 10:57-0400 Body height 185.4 cm Javad Donato MD Work Phone: [facility] 10-25-2024 10:57-0400 Body mass index (BMI) [Ratio] 38.52 kg/m2 Javad Donato MD Work Phone: [facility] 10-25-2024 10:57-0400 Body weight 132.45 kg Javad Donato MD Work Phone: [facility] 10-25-2024 10:57-0400 Diastolic blood pressure 76 mm[Hg] Javad Donato MD Work Phone: [facility] 10-25-2024 10:57-0400 Heart rate 82 /min Javad Donato MD Work Phone: [facility] 10-25-2024 10:57-0400 SaO2% (BldA) [Mass fraction] 95 % Javad Donato MD Work Phone: [facility] 10-25-2024 10:57-0400 Systolic blood pressure 130 mm[Hg] Javad Donato MD Work Phone: [facility] 07-27-2024 10:26-0500 Body height 185.4 cm Alma Mcclendon PA Work Phone: [facility] 07-27-2024 10:26-0500 Body mass index (BMI) [Ratio] 38.34 kg/m2 Alma Mcclendon PA Work Phone: [facility] 07-27-2024 10:26-0500 Body temperature 97.5 [degF] Alma Mcclendon PA Work Phone: [facility] 07-27-2024 10:26-0500 Body weight 131.81 kg Alma Mcclendon PA Work Phone: [facility] 07-27-2024 10:26-0500 Diastolic blood pressure 74 mm[Hg] Alma Mcclendon PA Work Phone: [facility] 07-27-2024 10:26-0500 Heart rate 88 /min Alma Hemmer PA Work Phone: [facility] 07-27-2024 10:26-0500 Respiratory rate 18 /min Alma Hemmer PA Work Phone: [facility] 07-27-2024 10:26-0500 SaO2% (BldA) [Mass fraction] 95 % Alma Hemmer PA Work Phone: [facility] 07-27-2024 10:26-0500 Systolic blood pressure 128 mm[Hg] Alma Hemmer PA Work Phone: [facility] 06-14-2024 09:36-0500 Body height 185.4 cm Javad Donato MD Work Phone: [facility] 06-14-2024 09:36-0500 Body mass index (BMI) [Ratio] 37.6 kg/m2 Javad Donato MD Work Phone: [facility] 06-14-2024 09:36-0500 Body weight 129.28 kg Javad Donato MD Work Phone: [facility] 06-14-2024 09:36-0500 Diastolic blood pressure 70 mm[Hg] Javad Donato MD Work Phone: [facility] 06-14-2024 09:36-0500 Heart rate 98 /min Javad Donato MD Work Phone: [facility] 06-14-2024 09:36-0500 SaO2% (BldA) [Mass fraction] 97 % Javad Donato MD Work Phone: [facility] 06-14-2024 09:36-0500 Systolic blood pressure 126 mm[Hg] Javad Donato MD Work Phone: [facility] 04-17-2024 13:49-0400 Body height 185.4 cm Javad Donato MD Work Phone: [facility] 04-17-2024 13:49-0400 Body mass index (BMI) [Ratio] 37.6 kg/m2 Javad Donato MD Work Phone: [facility] 04-17-2024 13:49-0400 Body weight 129.28 kg Javad Donato MD Work Phone: [facility] 04-17-2024 13:49-0400 Diastolic blood pressure 68 mm[Hg] Javad Donato MD Work Phone: [facility] 04-17-2024 13:49-0400 Heart rate 96 /min Javad Donato MD Work Phone: [facility] 04-17-2024 13:49-0400 SaO2% (BldA) [Mass fraction] 98 % Javad Donato MD Work Phone: [facility] 04-17-2024 13:49-0400 Systolic blood pressure 128 mm[Hg] Javad Donato MD Work Phone: [facility] 04-06-2024 11:31-0400 Body height 185.4 cm Charissa Blair DO Work Phone: [facility] 04-06-2024 11:31-0400 Body mass index (BMI) [Ratio] 38.16 kg/m2 Charissa Blair DO Work Phone: [facility] 04-06-2024 11:31-0400 Body weight 131.18 kg Charissa Blair DO Work Phone: [facility] 04-04-2024 09:12-0400 Body height 185.4 cm [facility] 04-04-2024 09:12-0400 Body mass index (BMI) [Ratio] 37.34 kg/m2 [facility] 04-04-2024 09:12-0400 Body weight 128.37 kg [facility] 1 [facility] 02-17-2024 10:18-0400 Body height 185.4 cm Alma HERNANDEZ Work Phone: [facility] 02-17-2024 10:18-0400 Body mass index (BMI) [Ratio] 38.26 kg/m2 Alma HERNANDEZ Work Phone: [facility] 02-17-2024 10:18-0400 Body weight 131.54 kg Alma Castellanomer PA Work Phone: [facility] 02-17-2024 10:18-0400 Diastolic blood pressure 78 mm[Hg] Alma Castellanomer PA Work Phone: [facility] 02-17-2024 10:18-0400 Heart rate 82 /min Alma Castellanomer PA Work Phone: [facility] 02-17-2024 10:18-0400 SaO2% (BldA) [Mass fraction] 96 % Alma Castellanomer PA Work Phone: [facility] 02-17-2024 10:18-0400 Systolic blood pressure 136 mm[Hg] Alma Castellanomer PA Work Phone: [facility] 02-07-2024 10:23-0400 Blood Pressure Location Mac SANTIAGO [facility] 02-07-2024 10:23-0400 Body temperature 98.6 [degF] Mac SANTIAGO [facility] 02-07-2024 10:23-0400 Diastolic blood pressure 82 mm[Hg] Mac SANTIAGO [facility] 02-07-2024 10:23-0400 Heart rate 75 /min Mac SANTIAGO [facility] 02-07-2024 10:23-0400 Respiratory rate 16 /min Mac SANTIAGO [facility] 02-07-2024 10:23-0400 Systolic blood pressure 132 mm[Hg] Mac SANTIAGO [facility] 07-07-2023 12:48-0500 Diastolic blood pressure 85 mm[Hg] Charissa Blair DO Work Phone: [facility] 07-07-2023 12:48-0500 Heart rate 88 /min Charissa Blair DO Work Phone: [employer] 07-07-2023 12:48-0500 Respiratory rate 22 /min Charissa Blair DO Work Phone: [employer] 07-07-2023 12:48-0500 SaO2% (BldA) [Mass fraction] 90 % Charissa Blair DO Work Phone: [employer] 07-07-2023 12:48-0500 Systolic blood pressure 134 mm[Hg] Charissa Blair DO Work Phone: [employer] 07-07-2023 10:35-0500 Body temperature 97.3 [degF] Charissa Blair DO Work Phone: [employer] 07-07-2023 06:25-0500 Body height 185.4 cm Charissa Blair DO Work Phone: [employer] 07-07-2023 06:25-0500 Body mass index (BMI) [Ratio] 36.41 kg/m2 Charissa Blair DO Work Phone: [employer] 07-07-2023 06:25-0500 Body weight 125.19 kg Charissa Blair DO Work Phone: [employer] 12-17-2022 13:00-0400 Body height 182.88 cm Erica Xiong Other [employer] Other 12-17-2022 13:00-0400 Body mass index (BMI) [Ratio] 38.51 kg/m2 Erica Xiong Other [employer] Other 12-17-2022 13:00-0400 Body weight 128.82 kg Erica Xiong Other [employer] Other 12-17-2022 13:00-0400 Diastolic blood pressure 88 mm[Hg] Erica Xiong Other [facility] [employer] Other 12-17-2022 13:00-0400 Systolic blood pressure 146 mm[Hg] Erica Tyrese Other [facility] [employer] Other 06-01-2022 11:29-0500 Blood Pressure Location Mac SANTIAGO [facility] 06-01-2022 11:29-0500 Diastolic blood pressure 76 mm[Hg] Mac SANTIAGO [facility] 06-01-2022 11:29-0500 Heart rate 70 /min Mac SANTIAGO [facility] 06-01-2022 11:29-0500 Respiratory rate 16 /min Mac SANTIAGO [facility] 06-01-2022 11:29-0500 Systolic blood pressure 128 mm[Hg] Mac SANTIAGO [facility] 02-16-2022 10:28-0400 Blood Pressure Location Macmichelle SANTIAGO [facility] 02-16-2022 10:28-0400 Diastolic blood pressure 84 mm[Hg] Mac SANTIAGO [facility] 02-16-2022 10:28-0400 Heart rate 68 /min Mac SANTIAGO [facility] 02-16-2022 10:28-0400 Respiratory rate 16 /min Mac SANTIAGO [facility] 02-16-2022 10:28-0400 Systolic blood pressure 136 mm[Hg] Mac PAMELA [facility] Encounters Encounter Date Encounter Type Care Provider Facility Start: 02-05-2025 ambulatory Mac SANTIAGO Facili ty:[facility] Start: 10-30-2024 End: 10-30-2024 Bamboo flowsheet Jose Hernández [employer] Work Phone: [facility] Start: 10-30-2024 End: 10-30-2024 Bamboo flowsheet Jose Hernández [employer] SOLDER[employer] Work Phone: [facility] Start: 10-30-2024 End: 10-30-2024 Office outpatient visit 15 minutes Jose Hernández [employer] Work Phone: [facility] Comment on [...] 07-31-2024 End: 07-31-2024 Bamboo flowsheet Jose Hernández [employer] Work Phone: [facility] Start: 07-31-2024 End: 07-31-2024 Bamboo flowsheet Jose Hernández [employer] SOLDER[employer] Work Phone: [facility] Start: 07-31-2024 End: 07-31-2024 Postop follow up visit related to original px Jose Hernández [employer] Work Phone: [facility] Comment on [...] Start: 07-21-2024 End: 07-21-2024 ambulatory Jeanna Mendiola [employer]IVIL ENGINEERING PROJECT DESIGNER Work Phone: [facility] Comment on above: Left hip pain (Prima ry Dx); S/P total left hip arthroplasty Start: 07-14-2024 End: 07-14-2024 ambulatory Jeanna Mendiola CIVIL ENGINEERING PROJECT DESIGNER Work Phone: [facility] Comment on above: Left hip pain (Prima ry Dx); S/P total left hip arthroplasty Start: 07-12-2024 End: 07-12-2024 Bamboo flowsheet Jeanna Mendiola CIVIL ENGINEERING PROJECT DESIGNER Work Phone: [facility] Start: 07-12-2024 End: 07-12-2024 Bamboo flowsheet Jeanna Mendiola CIVIL ENGINEERING PROJECT DESIGNER Work Phone: [facility] Start: 07-12-2024 End: 07-12-2024 ambulatory Jeanna Mendiola CIVIL ENGINEERING PROJECT DESIGNER Work Phone: [facility] Comment on above: Left hip pain (Prima ry Dx); S/P total left hip arthroplasty Start: 07-07-2024 End: 07-07-2024 Bamboo flowsheet Jeanna Mendiola CIVIL ENGINEERING PROJECT DESIGNER Work Phone: [facility] Start: 07-07-2024 End: 07-07-2024 Bamboo mike Mendiola CIVIL ENGINEERING PROJECT DESIGNER Work Phone: [facility] Start: 07-07-2024 End: 07-07-2024 ambulatory Jeanna Mendiola CIVIL ENGINEERING PROJECT DESIGNER Work Phone: [facility] Comment on above: Left hip pain (Prima ry Dx); S/P total left hip arthroplasty Start: 07-06-2024 End: 07-06-2024 ambulatory YOSEFMilton CHEEMA Not Available Start: 07-05-2024 End: 07-05-2024 ambulatory Jeanna Mendiloa CIVIL ENGINEERING PROJECT DESIGNER Work Phone: [facility] Comment on above: Left hip pain (Prima ry Dx); S/P total left hip arthroplasty Start: 07-03-2024 End: 07-03-2024 Bamboo flowsheet Jose Hernández [employer] Work Phone: [facility] Start: 07-03-2024 End: 07-03-2024 Bamboo flowsheet Jose Hernández [employer] Work Phone: [facility] Start: 07-03-2024 End: 07-03-2024 Postop follow up visit related to original px Jose Hernández [employer] Work Phone: [facility] Comment on above: S/P total left hip a rthroplasty (Primary Dx) Start: 07-03-2024 End: 07-03-2024 ambulatory JOSE HERNÁNDEZ Not Available Start: 06-30-2024 End: 06-30-2024 Bamboo flowsheet Jeanna Mendiola CIVIL ENGINEERING PROJECT DESIGNER Work Phone: [facility] Start: 06-30-2024 End: 06-30-2024 Bamboo flowsheet Jeanna Mendiola CIVIL ENGINEERING PROJECT DESIGNER Work Phone: [facility] Start: 06-30-2024 End: 06-30-2024 ambulatory Jeanna Mendiola CIVIL ENGINEERING PROJECT DESIGNER Work Phone: [facility] Comment on above: Left hip pain (Prima ry Dx); S/P total left hip arthroplasty Start: 06-26-2024 End: 06-26-2024 Bamboo flowsheet Kailey Cleaningtersall CIVIL ENGINEERING PROJECT DESIGNER [facility] Start: 06-26-2024 End: 06-26-2024 Bamboo flowsheet Kailey Cleaningtersall CIVIL ENGINEERING PROJECT DESIGNER [facility] Start: 06-26-2024 End: 06-26-2024 ambulatory Kailey Goldman CIVIL ENGINEERING PROJECT DESIGNER [facility] Comment on above: Left [...] 06-12-2024 End: 06-12-2024 Bamboo flowsheet Jose Hernández [employer] SOLDERER Work Phone: [facility] Start: 06-12-2024 End: 06-12-2024 Bamboo flowsheet Jose Hernández [employer]ER Work Phone: [facility] Start: 06-12-2024 End: 06-12-2024 Postop follow up visit related to original px Jose Hernández [employer]ER Work Phone: [facility] Comment on above: S/P total [...] 05-08-2024 End: 05-08-2024 Telephone encounter Jose Hernández [employer] Work Phone: [facility] Start: 05-04-2024 End: 05-04-2024 Telephone encounter Charissa Blair DO Work Phone: [facility] Comment on above: Discharge Start: 05-03-2024 End: 05-03-2024 ambulatory CHARISSA BLAIR [facility] Start: 05-02-2024 End: 05-02-2024 Refill Jose Hernández [employer] Work Phone: [facility] Comment on [...] 04-06-2024 End: 04-06-2024 Bamboo flowsheet Jose Hernández [employer] SOL[employer] Work Phone: [facility] Start: 04-06-2024 End: 04-06-2024 Bamboo flowsheet Jose Hernández [employer] SOLDERER Work Phone: [facility] Start: 04-06-2024 End: 04-06-2024 Office outpatient visit 40 minutes Charissa Blair DO Work Phone: [facility] Comment on above: Left hip pain; Arthritis of left hip Start: 04-06-2024 End: 04-06-2024 ambulatory CHARISSA BLAIR Not Available Start: 04-04-2024 End: 04-04-2024 Patient encounter procedure [facility] Pre-Admission Testing 1 [facility] - Pre Admit Comment on above: Preop examination (P rimary Dx); Hypertension, unspecified type Start: 04-04-2024 End: 04-04-2024 Preprocedural examination done Pm 1 [facility] Start: 04-04-2024 End: 04-04-2024 ambulatory CHARISSA BLAIR [facility] Start: 03-15-2024 End: 03-15-2024 Telephone encounter Nagi Plata PT Work Phone: [facility] Start: 02-17-2024 End: 02-17-2024 Office outpatient visit 15 minutes Alma Mcclendon PA Work Phone: [facility] Comment on above: Acute pharyngitis, u nspecified etiology (Primary Dx) Start: 02-17-2024 End: 02-17-2024 ambulatory ALMA Candelaria DANELLE Not Available Start: 02-07-2024 End: 02-07-2024 ambulatory Mac SANTIAGO Facility:[facility] Start: 02-07-2024 End: 02-07-2024 Patient encounter procedure Mac SANTIAGO [facility] Start: 01-27-2024 End: 01-27-2024 ambulatory CHARISSA BLAIR Not Available Start: 01-21-2024 End: 01-21-2024 ambulatory ALMA Candelaria DANELLE Not Available Start: 12-16-2023 End: 12-16-2023 ambulatory CHARISSA BLAIR Not Available Start: 12-13-2023 End: 12-13-2023 ambulatory JOSE HERNÁNDEZ Not Available Start: 08-09-2023 Bamboo flowsheet Jeanna Don ht CIVIL ENGINEERING PROJECT DESIGNER Work Phone: [facility] Start: 08-09-2023 Bamboo flowsheet Jeanna Wrig ht CIVIL ENGINEERING PROJECT DESIGNER Work Phone: [facility] Start: 08-09-2023 End: 08-09-2023 Postop follow up visit related to original px Jose Hernández [employer]DERER Work Phone: [facility] Comment on above: 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; Status post right hip replacement Start: 08-09-2023 End: 08-09-2023 ambulatory Jeanna Mendiola CIVIL ENGINEERING PROJECT DESIGNER Work Phone: [facility] Comment on above: Right hip pain (Prim billie Dx); Status post total hip replacement, right; Arthritis of right hip Start: 08-06-2023 End: 08-06-2023 ambulatory Jeanna Mendiola CIVIL ENGINEERING PROJECT DESIGNER Work Phone: [facility] Comment on above: Right hip pain (Prim billie Dx); Status post total hip replacement, right; Arthritis of right hip Start: 08-02-2023 Bamboo flowsheet Jeanna Don ht CIVIL ENGINEERING PROJECT DESIGNER Work Phone: [facility] Start: 08-02-2023 Bamboo flowsheet Jeanna Don ht CIVIL ENGINEERING PROJECT DESIGNER Work Phone: [facility] Start: 08-02-2023 End: 08-02-2023 ambulatory Jeanna Mendiola CIVIL ENGINEERING PROJECT DESIGNER Work Phone: [facility] Comment on above: Right hip pain (Prim billie Dx); Status post total hip replacement, right; Arthritis of right hip Start: 07-29-2023 End: 07-29-2023 ambulatory Nagi Plata PT Work Phone: [facility] Comment on above: Right hip pain (Prim billie Dx); Status post total hip replacement, right Start: 07-08-2023 End: 07-08-2023 ambulatory DEVIN SAUL [facility] Start: 07-07-2023 End: 07-08-2023 ambulatory [facility] Start: 07-07-2023 End: 07-07-2023 ambulatory [facility] Start: 07-07-2023 End: 07-07-2023 Subsequent hospital visit by physician Charissa Blair DO Work Phone: [facility] - Surgery Start: 07-05-2023 End: 07-05-2023 ambulatory [facility] Start: 07-05-2023 Encounter for other preprocedural examination [facility] Start: 04-13-2023 End: 04-13-2023 ambulatory LAILA LEWIS Facility:[facility] Start: 04-13-2023 End: 04-13-2023 Patient encounter procedure Laila Lewis PA-C Work Phone: [facility] [place] Comment on above: Spinal stenosis, lum bar region with neurogenic claudication (Primary Dx); Bilateral hip joint arthritis Start: 01-28-2023 Chart abstracting Camron Mix MD Work Phone: Neurology Start: 12-17-2022 End: 12-17-2022 Patient encounter procedure II Javad Donato Work Phone: [facility] Work Phone: Start: 12-17-2022 End: 12-17-2022 ambulatory II Javad Donato Work Phone: [facility] Work Phone: Start: 12-17-2022 Encounter for other specified special examinations Erica Xiong [facility] Start: 12-17-2022 Office outpatient ne w 45 minutes Erica Xiong [facility] Start: 11-24-2022 End: 11-25-2022 ambulatory NARENDRANATH LAKSHMIPATHY . Facility:[facility] Start: 11-13-2022 End: 11-14-2022 ambulatory NARENDRANATH LAKSHMIPATHY . Facility:[facility] Start: 11-10-2022 End: 11-11-2022 ambulatory NARENDRANATH LAKSHMIPATHY . Facility:[facility] Start: 10-08-2022 End: 10-09-2022 ambulatory NARENDRANATH LAKSHMIPATHY . Facility:[facility] Start: 09-10-2022 End: 09-11-[address] ANTIONE HAWTHORNE . Facility:[facility] Start: 08-13-2022 Encounter for preprocedural cardiovascular examination DR ANTIONE HAWTHORNE . [facility] Start: 08-11-2022 End: 08-11-[address] ANTIONE [...] procedure Mac Stephenson PAMELA [facility] Start: 05-19-2022 End: 05-20-[address] ANTIONE HAWTHORNE . Facility:[facility] Start: 05-05-2022 End: 05-05-[address] ANTIONE HAWTHORNE . Facility:[facility] Start: 04-28-2022 End: 04-29-[address] ANTIONE HAWTHORNE . Facility:[facility] Start: 04-27-2022 End: 05-14-[address] JAVAD DONATO Facility:[facility] Start: 02-16-2022 End: 02-16-2022 Patient encounter procedure Mac SANTIAGO [facility] Procedures Date Procedure Procedure Detail Performing Clinician Start: 10-30-2024 Radex hip unilateral with pelvis 2-3 views Jose Hernández [employer] Work Phone: Start: 10-25-2024 Hemoglobin glycosyla angeles a1c Javad Donato MD Work Phone: Start: 06-12-2024 Radex hip unilateral with pelvis 2-3 views Jose Hernández [employer]DERER Work Phone: Start: 04-06-2024 Radex hip unilateral [...] Td Vaccines (2 - Td or Tdap) [facility] Start: 07-12-2027 Screening for malign ant neoplasm of colon [facility] Start: 06-14-2025 Medicare Annual Wellness (AWV) Medicare Annual Wellness (AWV) [facility] Start: 04-30-2025 End: 04-30-2025 Patient encounter procedure 04/30/2025 8:00 AM EST Office Visit [facility] [address] [place] [address] Jose Hernández, YISEL [address] [place] [address] [facility] Start: 04-26-2025 End: 04-26-2025 Patient encounter procedure 04/26/2025 9:00 AM EDT Office Visit [facility] [address] [place] [address] Javad Donato MD [address] [place] [address] [facility] Start: 04-04-2025 Adult BMI Screening Adult BMI Screen ing [facility] Start: 04-04-2025 Tobacco Screening Tobacco Screening [facility] Start: 10-30-2024 End: 10-30-2024 Patient encounter procedure [facility] Comment on above: Left hip pain Start: 10-25-2024 End: 10-25-2024 Patient encounter procedure 10/25/2024 10:45 AM EDT Office Visit [facility] [address] [place] [address] Javad Donato MD [address] [place] [address] Arrived [facility] Comment on above: Arrived Start: 10-23-2024 End: 10-23-2024 Patient encounter procedure 10/23/2024 10:00 AM EDT Office Visit [facility] [address] [place] [address] Javad Donato MD [address] [place] [address] [facility] Start: 07-31-2024 End: 07-31-2024 Patient encounter procedure [facility] Comment on above: Arrived Start: 07-27-2024 End: 07-27-2024 Patient encounter procedure 07/27/2024 10:30 AM EST Office Visit [facility] [address] [place] [address] Alma Mcclendon PA [address] [place] [address] Arrived [facility] Comment on above: Arrived Start: 07-21-2024 End: 07-21-2024 ambulatory 07/21/2024 7:30 AM EST Treatment [facility] [address] [place] [phone] Jeanna Mendiola, CIVIL ENGINEERING PROJECT DESIGNER [address] [place] [address] [facility] Start: 07-14-2024 End: 07-14-2024 ambulatory [facility] Start: 07-12-2024 End: 07-12-2024 ambulatory [facility] Comment on above: Arrived Start: 07-07-2024 End: 07-07-2024 ambulatory 07/07/2024 7:30 AM EST Treatment [facility] [address] [place] [phone] Jeanna Mendiola, CIVIL ENGINEERING PROJECT DESIGNER [address] [place] [address] [facility] Start: 07-06-2024 End: 07-06-2024 Professional / ancillary services management 07/06/2024 8:00 AM EST Ancillary Procedure [facility] [address] [place] [id number] [facility] Start: 07-05-2024 End: 07-05-2024 ambulatory 07/05/2024 7:30 AM EST Treatment [facility] [address] [place] [phone] Jeanna Mendiola, CIVIL ENGINEERING PROJECT DESIGNER [address] [place] [address] [facility] Start: 07-03-2024 End: 07-03-2024 Patient encounter procedure [facility] Comment on above: Arrived Start: 06-30-2024 End: 06-30-2024 ambulatory [facility] Comment on above: Arrived Start: 06-29-2024 End: 06-29-2024 ambulatory 06/29/2024 7:30 AM EST Treatment [facility] [address] [place] [address] Kailey Goldman, BRENT [facility] Start: 06-26-2024 End: 06-26-2024 ambulatory [facility] Comment on above: Arrived Start: 06-22-2024 End: 06-22-2024 Professional / ancillary services management 06/22/2024 3:15 PM EST Ancillary Procedure [facility] [address] [place] [phone] [facility] Start: 06-20-2024 End: 06-20-2024 ambulatory 06/20/2024 7:00 AM EST Evaluation [facility] [address] [place] [address] Nagi Plata, PT [address] [place], [place] [phone] [facility] Start: 06-14-2024 End: 06-14-2025 CBC panel - Blood by Automated count CBC Lab Routine Benign essential hypertension (CMS/HCC) IGT (impaired glucose tolerance) Atherosclerosis of aorta (CMS/HCC) Class 2 severe obesity with serious comorbidity and body mass index (BMI) of 37.0 to 37.9 in adult, unspecified obesity type (CMS/HCC) Expected: 06/14/2024 (Approximate), Expires: 06/14/2025 [facility] Comment on above: Expected: 06/14/2024 (Approximate), [...] type (CMS/HCC) Expected: 06/14/2024 (Approximate), Expires: 06/14/2025 [facility] Comment on above: Expected: 06/14/2024 [...] type (CMS/HCC) Expected: 06/14/2024 (Approximate), Expires: 06/14/2025 [facility] Comment on above: Expected: 06/14/2024 (Approximate), Expires: 06/14/2025 Start: 06-14-2024 End: 06-14-2025 Prostate specific Ag [Mass/volume] in Serum or Plasma PSA Lab Routine Screening for prostate cancer Expected: 06/14/2024 (Approximate), Expires: 06/14/2025 [facility] Work Phone: Comment on above: Expected: 06/14/2024 (Approximate), Expires: 06/14/2025 Start: 06-14-2024 End: 06-14-2025 US.doppler Lower extremity artery - bilateral Vascular US lower extremity arterial duplex bilateral Imaging Routine Claudication (CMS/HCC) Expected: 06/14/2024, Expires: 06/14/2025 [facility] Comment on above: Expected: 06/14/2024 [...] Office Visit [facility] [address] [facility] [address] Charissa Blair, DO [address] [place] [address] [facility] Start: 05-09-2024 End: 05-09-2024 Patient encounter procedure 05/09/2024 10:30 AM EST Office Visit [facility] [address] [place] [address] Charissa Blair, DO [address] [facility] [address] [place] [address] [facility] Start: 05-03-2024 End: 05-03-2024 Admission to same day surgery center 05/03/2024 7:45 AM EST - 05/03/2024 10:00 AM EST Surgery [facility] - Surgery [address] [address] Charissa Blair, DO [address] [facility] [address] [place] [address] REPLACEMENT TOTAL JOINT HIP [15206 (CPT )] [facility] Comment on above: REPLACEMENT TOTAL BEKA INT HIP [67444 (CPT )] Start: 05-03-2024 End: 05-03-2024 Arthrp acetblr/prox fem prostc agrft/algrft REPLACEMENT TOTAL JOINT HIP left hip degenerative joint disease 05/03/2024 7:45 AM EST [facility] Start: 05-03-2024 Subsequent hospital visit by physician 05/03/2024 7:45 AM EST Hospital Encounter [facility] Surgery [address] [place] [address] Charissa Blair, DO [address] [facility] [address] [place] [address] [facility] Start: 05-03-2024 End: 05-03-2024 Patient encounter procedure 05/03/2024 7:30 AM EST Procedure Visit [facility] Charissa Blair, DO [address] [facility] [address] [place] [address] [facility] Start: 04-24-2024 End: 03-06-2025 Crossmatch RBC Crossmatch RBC Blood Bank Routine Preop examination Hypertension, unspecified type Expected: 04/24/2024, Expires: 03/06/2025 [facility] Comment on above: Expected: 04/24/2024 , Expires: 03/06/2025 Start: 04-24-2024 End: 03-06-2025 Type and screen(includes indirect phill) Type and screen(includes indirect phill) Blood Bank Routine Preop examination Hypertension, unspecified type Expected: 04/24/2024, Expires: 03/06/2025 [employer] Work Phone: Comment on above: Expected: 04/24/2024 [...] [address] [place] [phone] Javad Donato MD [address] [place] [address] [facility] Start: 02-27-2024 Influenza vaccination [facility] Start: 09-20-2023 End: 09-20-2023 Patient encounter procedure 09/20/2023 10:30 AM EDT Office Visit [facility] [address] [place] [phone] Jose Hernández, BARREL RIBS SOLDERER [address] [place] [address] [facility] Start: 08-27-2023 End: 08-27-2023 ambulatory 08/27/2023 9:30 AM EST Treatment [facility] [address] [place] [phone] Nagi Plata, PT [address] [place] [address] [facility] Start: 08-23-2023 End: 08-23-2023 ambulatory 08/23/2023 9:30 AM EST Treatment [facility] [address] [place] [address] Jeanna Mendiola, CIVIL ENGINEERING PROJECT DESIGNER [address] [place] [address] [facility] Start: 08-20-2023 End: 08-20-2023 ambulatory 08/20/2023 9:30 AM EST Treatment [facility] [address] [place] [address] Jeanna Mendiola, CIVIL ENGINEERING PROJECT DESIGNER [address] [place] [address] [facility] Start: 08-16-2023 End: 08-16-2023 ambulatory 08/16/2023 9:30 AM EST Treatment [facility] [address] [place] [address] Jeanna Mendiola, CIVIL ENGINEERING PROJECT DESIGNER [address] [place] [address] [facility] Start: 08-13-2023 End: 08-13-2023 ambulatory 08/13/2023 9:30 AM EST Treatment [facility] [address] [place] [phone] Nagi Plata, PT [address] [place] [address] [facility] Start: 08-09-2023 End: 08-09-2023 Patient encounter procedure 08/09/2023 1:00 PM EST Office Visit [facility] [address] [place] [phone] Jose Hernández, BARREL RIBS SOLDERER [address] [place] [address] [facility] Start: 08-09-2023 End: 08-09-2023 ambulatory [facility] Comment on above: Arrived Start: 08-06-2023 End: 08-06-2023 ambulatory 08/06/2023 9:30 AM EST Treatment [facility] [address] [place] [phone] Jeanna Mendiola, CIVIL ENGINEERING PROJECT DESIGNER [address] [place] [address] [facility] Start: 08-02-2023 End: 08-02-2023 ambulatory [facility] Comment on above: Arrived Start: 02-26-2023 Influenza vaccination C [facility] Start: 06-28-2022 ADVANCE DIRECTIVE DISCUSSION ADVANCE DIRECTIVE DISCUSSION [facility] Start: 06-28-2022 DEPRESSION ASSESSMENT DEPRESSION ASS ESSMENT [facility] Start: 2019 Abdominal aortic aneurysm screening Abdominal Aortic Aneurysm (AAA) Screen [facility] Start: 2019 Fall Risk Screening Fall Risk Screen ing [facility] Start: 2019 PNEUMOCOCCAL: 65+ (1 - PCV) PNEUMOCOCCAL: 65+ (1 - PCV) [facility] Start: 01-11-2016 Administration of varicella zoster vaccine Zoster (Shingles) Vaccine (2 of 3) [facility] Start: 07-08-2015 Shingrix Vaccine (2 of 3) Shingrix Vaccine (2 of 3) [facility] Start: 2014 RSV Vaccine (1 - 1-d ose 60+ series) RSV Vaccine (1 - 1-dose 60+ series) [facility] Start: 01-02-2004 SHINGRIX VACCINE (1 of 2) SHINGRIX VACCINE (1 of 2) [facility] Start: 1999 COLOGUARD (FIT-DNA) COLOGUARD (FIT-D NA) [facility] Start: [address] [facility] Start: 1999 COLORECTAL CANCER SCREENING COLORECTAL CANCER SCREENING [facility] Start: [address] COLONOGRAPHY [facility] Start: 1999 DIABETES SCREEN DIABETES SCREEN [facility] Start: 1999 Diabetes Screening Diabetes Screenin g [facility] Start: 1999 FECAL OCCULT BLOOD FECAL OCCULT BLOO D [facility] Start: 1999 SIGMOIDOSCOPY SIGMOIDOSCOPY [facility] Start: 1989 Lipid 1996 panel - Serum or Plasma Lipid Screening [facility] Start: 1989 LIPID SCREEN LIPID SCREEN [facility] Start: [address] [facility] Start: 01-02-1972 Adult BMI Follow Up Plan Adult BMI Follow Up Plan [facility] Start: 01-02-1972 HEPATITIS C SCREENING HEPATITIS C SC REENING [facility] Start: 1966 Depression Screening Depression Scre ening [facility] Start: 1954 COVID-19 VACCINE (#1) COVID-19 VACCI NE (#1) [facility] Start: 1954 Abdominal Aortic Aneurysm Screening Abdominal Aortic Aneurysm Screening [facility] Start: 1954 Medicare Annual Wellness Visit Medicare Annual Wellness Visit [facility] Start: 1954 Screening for malign ant neoplasm of colon [facility] End: 05-12-2024 XR HIP BILATERAL 5V PEL/AP/LAT EACH HIP XR HIP BILATERAL 5V PEL/AP/LAT EACH HIP Radiology Routine Bilateral hip joint arthritis 1 Occurrences starting 04/13/2023 until 05/12/2024 [facility] Work Phone: Comment on above: 1 Occurrences starti ng 04/13/2023 until 05/12/2024 [facility] Immunizations Immunization Date Immunization Notes Care Provider Estevan lucysilvana 06-14-2024 Influenza, High-dose Seasonal, Quadrivalent, Preservative Free Javad Donato MD Work Phone: [facility] 05-18-2023 RSV, recombinant, protein subunit RSVpreF, adjuvant reconstitu, 120mcg/0.5mL, PF (Arexvy) Nagi Narendra PT Work Phone: [facility] Work Phone: 05-18-2023 tetanus toxoid, redu sri diphtheria toxoid, and acellular pertussis vaccine, adsorbed Nagi Narendra PT Work Phone: [facility] 05-17-2023 Influenza, High-dose Seasonal, Quadrivalent, Preservative Free Nagi Narendra PT Work Phone: [facility] 05-17-2023 influenza virus vaccine, unspecified formulation Nagi Narendra PT Work Phone: [facility] 04-03-2022 influenza, high dose seasonal, preservative-free Nagi Narendra PT Work Phone: [facility] 04-03-2022 Influenza, High-dose Seasonal, Quadrivalent, Preservative Free Nagi Narendra PT Work Phone: [facility] 04-03-2022 influenza virus vaccine, unspecified formulation Laila Lewis PA-C Work Phone: [facility] 05-21-2020 influenza virus vaccine, unspecified formulation Mac SANTIAGO [facility] 05-21-2020 influenza, injectabl e, quadrivalent, contains preservative Nagi Narnedra PT Work Phone: [facility] 05-21-2020 pneumococcal conjuga te vaccine, 13 valent Nagi Narendra PT Work Phone: [facility] 04-10-2020 influenza virus vaccine, unspecified formulation Mac SANTIAGO [facility] 05-03-2019 influenza, injectabl e, madin sancho canine kidney, preservative free Nagi Narendra PT Work Phone: [facility] 05-03-2019 pneumococcal polysaccharide vaccine, 23 valent Nagi Narendra PT Work Phone: [facility] 05-02-2018 influenza virus vaccine, unspecified formulation Mac SANTIAGO [facility] 05-02-2018 seasonal influenza, intradermal, preservative free Nagi Narendra PT Work Phone: [facility] 06-07-2017 influenza virus vaccine, unspecified formulation Mac SANTIAGO [facility] 06-07-2017 influenza, injectabl e, quadrivalent, contains preservative Nagi Narendra PT Work Phone: [facility] 05-13-2015 zoster vaccine, live Nagi Sp collado PT Work Phone: [facility] 05-13-2015 zoster vaccine, unspecified formulation [facility] 1 [facility] NEGATED: Highlighted row has not occurred!08-18-2021 SARS-CoV-2 (COVID-19) Ad26 vaccine, recombinant Mac SANTIAGO [facility] Payers Date Payer Category Payer Self-pay 2021 Private Health Insurance [employer] [id number] 2019 Unknown [id number]. [id number] 2018 Medicare [id number]. 1.13.159.2. [id number] 1959 Medicare [id number] 1959 Unknown [id number] 1954 Unknown [id number] 2.16.840.1.727649.3.579.2. 593 1954 Unknown [id number] 2.16840.1.365201.3.579.2. 593 1954 Unknown [id number] 2.16.840.1.153272.3.579.2. 593 1954 Unknown [id number] 2.16.840.1.151422.3.579.2. 593 1954 Unknown [id number] 2.16.840.1.299757.3.579.2. 593 1954 Unknown [id number] 2.16840.1.155597.3.579.2. 593 1954 Unknown [id number] 2.16.840.1.320525.3.579.2. 593 1954 Unknown [id number] 2.16.840.1.405544.3.579.2. 593 1954 Unknown [id number] 2.16.840.1.206687.3.579.2. 593 1954 Unknown [id number] 2.16.840.1.404288.3.579.2. 593 1954 Unknown [id number] 2.16.840.1.750890.3.579.2. 593 1954 Unknown [id number] 2.16.840.1.419265.3.579.2. 593 1954 Unknown [id number] 2.16.840.1.193451.3.579.2. 593 1954 Unknown [id number] 2.16.840.1.867688.3.579.2. 593 1954 Unknown [id number] 2.16.840.1.862918.3.579.2. 593 1954 Unknown [id number] 2.16.840.1.476749.3.579.2. 727 1954 Unknown [id number] 2.16.840.1.149376.3.579.2. 727 1954 Unknown [id number] 2.840.1.458238.3.579.2. 128 1954 Unknown [id number] 2.840.1.956471.3.579.2. 128 1954 Unknown [id number] 2.840.1.350324.3.579.2. 128 1954 Unknown [id number] 2.840.1.867809.3.579.2. 128 1954 Unknown [id number] 2.16840.1.216361.3.579.2. 128 1954 Unknown [id number] 2.16.840.1.709532.3.579.2. 128 1954 Unknown [id number] 2.16840.1.626665.3.579.2. 128 1954 Unknown [id number] 2.16.840.1.202076.3.579.2. 1286 1954 Unknown [id number] 2.16840.1.162741.3.579.2. 1286 1954 Unknown [id number] 2.16.840.1.929229.3.579.2. 128 1954 Unknown [id number] 2.16.840.1.418087.3.579.2. 1258 1954 Unknown [id number] 2.16.840.1.132064.3.579.2. 1258 1954 Unknown [id number] 2.16.840.1.468539.3.579.2. 1258 1954 Unknown [id number] 2.840.1.252753.3.579.2. 1258 1954 Unknown [id number] 2.840.1.278110.3.579.2. 1258 1954 Unknown [id number] 2.840.1.127236.3.579.2. 1258 1954 Unknown [id number] 2.840.1.590594.3.579.2. 1258 1954 Unknown [id number] 2.840.1.770552.3.579.2. 1258 1954 Unknown [id number] 2.840.1.810833.3.579.2. 1258 1954 Unknown [id number] 2.840.1.650325.3.579.2. 1258 1954 Unknown [id number] 2.840.1.155958.3.579.2. 1258 1954 Unknown [id number] 2.840.1.873538.3.579.2. 1258 1954 Unknown [id number] 2.840.1.980893.3.579.2. 1258 1954 Unknown [id number] 2.840.1.050463.3.579.2. 1258 1954 Unknown [id number] 2.16.840.1.957968.3.579.2. 1258 1954 Unknown [id number] 2.16.840.1.951967.3.579.2. 1258 1954 Unknown [id number] 2.16.840.1.580696.3.579.2. 1258 1954 Unknown [id number] 2.16840.1.931474.3.579.2. 1258 1954 Unknown [id number] 2.840.1.197365.3.579.2. 1258 1954 Unknown [id number] 2.840.1.775852.3.579.2. 1258 1954 Unknown [id number] 2.840.1.260253.3.579.2. 1258 1954 Unknown [id number] 2.840.1.823488.3.579.2. 1258 1954 Unknown [id number] 2.840.1.584376.3.579.2. 1258 1954 Unknown [id number] 2.840.1.388701.3.579.2. 1258 1954 Unknown [id number] 2.840.1.811548.3.579.2. 1258 1954 Unknown [id number] 2.840.1.207721.3.579.2. 1258 1954 Unknown [id number] 2.840.1.844916.3.579.2. 1258 1954 Unknown [id number] 2.16840.1.020223.3.579.2. 1258 1954 Unknown [id number] 2.840.1.784296.3.579.2. 1258 1955 Unknown [id number] Unknown [id number] Social History Date Type Detail Facility Start: 05-05-2021 End: 02-17-2024 Ex-smoker (finding) [facility] Start: 04-15-2023 End: 05-10-2023 Male [facility] Start: 1955 Sex Assigned At Male [facility] Tobacco smoking stat [facility] Tobacco smoking consumption unknown [facility] Start: 02-02-2023 Gender identity Identifies as male gender (finding) [facility] Start: 02-02-2023 Sexual orientation Heterosexual (finding) [facility] Start: 06-28-1967 End: 09-27-1975 History of tobacco use Current smoker [facility] Work Phone: Start: 06-28-1967 End: 09-27-1975 History of tobacco use Cigarette Smoker [facility] Work Phone: Start: 04-15-2023 End: 05-10-[address] [facility] Adult Depression Screening Assessment 1 [facility] Start: 01-11-2023 End: 02-17-2024 Tobacco use and exposure Smokeless tobacco non-user [facility] Start: 07-12-2023 End: 10-30-2024 Alcohol intake Current drinker of alcohol (finding) [facility] Within the last year , have you been afraid of your partner or ex-partner? No [facility] Do you belong to any clubs or organizations such as roman catholic groups, unions, fraternal or athletic groups, or [...] Social drinker with occasional drink at home. [facility] Start: 05-28-2023 Tobacco Comment 1976 [facility] Start: 05-27-2020 Alcohol Comment occasional [facility] Start: 04-04-2024 Alcohol Comment rare [facility] Medical Equipment Procedure Code Equipment Code Equipment Origin al Text Equipment Identifier Dates Stem Fem 129d 4 06/10 45.5mm Fitmore Protasul-64 Hip Rgh - [id number] Start: 07-07-2023 Maryann Biomet Femoral Head 36mm [id number] Start: 07-07-2023 Screw Bn 30mm 6. [address] Actb Seven Trlg Strl Rpl [id number] 29 - [id number] Start: 07-07-2023 Shell Actb 56mm Hip 4 Hl Clr Cd [place] G7 F Hmsphr - Sna - [id number] Start: 07-07-2023 Liner Actb 36mm F Vivacit-E Lum G7 Hip Strl Lf - [id number] Start: 07-07-2023 Screw Bn 30mm 6. 5[address] Actb Seven Trlg Strl Rpl [id number] 29 - [id number] Start: 07-07-2023 Screw Bn 30mm 6. 5[address] Actb Seven Trlg Strl Rpl [id number] 29 - [id number] Start: 07-07-2023 Functional Status Date Assessment Result Facility 10-25-2024 Patient Health Quest ionnaire 2 item (PHQ-2) [Reported] [facility] 02-07-2024 Functional Status N/A [facility] 06-01-2022 Functional Status N/A [facility] 02-16-2022 N/A [facility] Clinical Notes 02-16-2022 to 10-30-2024 Jose Hernández [...] Orally finasteride (PROSCAR) 5 mg, Daily HYDROcodone-acetaminophen (Porter) 5-325 MG tablet 1 tablet, Oral, Every [...] Unremarkable left total hip arthroplasty. Jose Hernández RECOOPERER-SUPERVISOR CURED MEATS Procedures Orders Placed This Encounter Procedures XR [...] requiring urgent evaluation. documented in this encounter [facility] 10-25-2024 History of Present illness [...] day at the same time. [DISCONTINUED] HYDROcodone-acetaminophen (Porter) 5-325 MG tablet Take 1 tablet by [...] wrist GERD (gastroesophageal reflux disease) HTN (hypertension) ([facility]) Lumbosacral disc disease Osteoarthritis Past Surgical History: [...] LDL-C. Humberto MOORE et al. LULU. 2013;310(19): 2164-7969 (http://education.rumr: turn off the lights/faq/JKV727) CHOL/HDLC RATIO 06/14/2024 5.4 (H) <5.0 (calc) [...] diagnosis of diabetes in children. According to [place] Diabetes Association (ADA) guidelines, hemoglobin A1c <7.0% represents optimal control in non- diabetic patients. Different metrics may apply to specific patient populations. Standards of Medical Care in Diabetes(ADA). Assessment/Plan Diagnoses and all orders for this visit: Herniated lumbar disc without myelopathy - HYDROcodone-acetaminophen (Porter) 5-325 MG tablet; Take 1 tablet by [...] for Routine F/U. documented in this encounter [facility] 09-25-2024 Telephone encounter Note LM for pt to CB [facility] 09-25-2024 Miscellaneous Notes LM for pt to CB Lm to cb Lm on vm to call us, need to know why he is wanting or needing this Patient is wondering if he needs/or is due for an MMR vaccine. documented in this encounter [facility] 09-22-2024 Telephone encounter Note Lm to cb [facility] 09-21-2024 Telephone encounter Note Lm on to call us, need to know why he is wanting or needing this [facility] 09-21-2024 Telephone encounter Note Patient is wondering if he needs/or is due for an MMR vaccine. [facility] 07-31-2024 History of Present illness [...] requiring urgent evaluation. documented in this encounter [facility] 07-27-2024 History of Present illness [...] mg by mouth in the morning. HYDROcodone-acetaminophen (Porter) 5-325 MG tablet Take 1 tablet by [...] wrist GERD (gastroesophageal reflux disease) HTN (hypertension) ([facility]) Lumbosacral disc disease Osteoarthritis Past Surgical [...] risks of opioid therapy including potential for X RAY TECHNOLOGIST s/e, GI s/e, respiratory s/e, dermatologic s/e, [...] Medication Follow Up. documented in this encounter [facility] 07-03-2024 History of Present illness Narrative Images from the original note were not included. HISTORY OF PRESENT ILLNESS: POST OP PT Lawson Vela is an 69 y.o. @ male. (EST PT) S/P (L) NASH 05/03/24 (8WKS 5DAYS) [facility]YS [facility]24 [facility]- CONTINUES WITH PT, WANTS TO START AQUATIC THERAPY AT [facility]. USES CANE PRN. GOOD ROM/STRENGTH- +HYDROCODONE [...] requiring urgent evaluation. documented in this encounter [facility] 06-20-2024 History of Present illness [...] ind with HEP for maintenance/progression prn at [place] Short Term Goal #2: pt will demo [...] sign below. Date: documented in this encounter [facility] 06-14-2024 History of Present illness [...] mg by mouth in the morning. HYDROcodone-acetaminophen (Porter) 5-325 MG tablet Take 1 tablet by [...] Do you have a medical power of staff attorney?: (Patient-Rptd) (P) No Objective : BP [...] a living will and durable power of staff attorney for healthcare. We discussed telling ketih people about their advance directives such as [...] need - Influenza, high-dose seasonal, quadrivalent, PF (VWS446) (Fluzone High Dose Quad North 0.7mL dose) Herniated lumbar disc without myelopathy - HYDROcodone-acetaminophen (Porter) 5-325 MG tablet; Take 1 tablet by mouth every 6 (six) hours if needed for severe pain Claudication (CMS/HCC) - Vascular US lower extremity arterial duplex bilateral; Future Orders Placed This Encounter Procedures Influenza, high-dose seasonal, quadrivalent, PF (OIQ363) (Fluzone High Dose Quad North 0.7mL dose) [...] June 14, 2024 documented in this encounter [facility] 06-12-2024 History of Present illness [...] Unremarkable left total hip arthroplasty. Jose Hernández APRN-SUPERVISOR CURED MEATS XR hip left 2 or 3 views [...] Unremarkable left total hip arthroplasty. Jose Hernández APRN-[employer] Procedures Orders Placed This Encounter Procedures XR [...] requiring urgent evaluation. documented in this encounter [facility] 05-16-2024 History of Present illness [...] mg by mouth in the morning. HYDROcodone-acetaminophen (Porter) 5-325 MG tablet Take 1 tablet by [...] wrist GERD (gastroesophageal reflux disease) HTN (hypertension) ([facility]) Lumbosacral disc disease Osteoarthritis ALLERGIES: Allergies Allergen [...] if he desires a referral to another industrial automation specialist we would be happy to make referral, he states he would like to continue his care here. Boni Blair D.O. documented in this encounter [facility] 05-09-2024 History of Present illness [...] mg by mouth in the morning. HYDROcodone-acetaminophen (Porter) 5-325 MG tablet Take 1 tablet by [...] wrist GERD (gastroesophageal reflux disease) HTN (hypertension) ([facility]) Lumbosacral disc disease Osteoarthritis ALLERGIES: Allergies Allergen [...] Blair/demi Blair D.O. documented in this encounter [facility] 05-08-2024 Telephone encounter Note Post op pain rx refill. PDMP reviewed [facility] 05-08-2024 Miscellaneous Notes Post op pain rx refill. PDMP reviewed documented in this encounter [facility] 05-04-2024 Telephone encounter Note He already discharged and PT is meeting with him today. [facility] 05-04-2024 Miscellaneous Notes He already discharged and PT is meeting with him today. Maxine myrick that patient is being discharged today from his LT Hip replacement and would like us to call patient to let him know what he needs to do. Patient's phone number is [phone]. documented in this encounter [facility] 05-04-2024 Telephone encounter Note Maxine myrick that patient is being discharged today from his LT Hip replacement and would like us to call patient to let him know what he needs to do. Patient's phone number is [phone]. [facility] 05-02-2024 Telephone encounter Note Post op pain rx. PDMP reviewed [facility] 05-02-2024 Miscellaneous Notes Post op pain rx. PDMP reviewed documented in this encounter [facility] 04-17-2024 History of Present illness Narrative Images from the original note were not included. HPI surgical clearance Additional comments: Pt sched 05/03/24 for left hip replacement with Dr Blair at [facility] PAT completed Last edited by France Farah LPN on 04/17/2024 1:48 PM. Subjective Patient ID: Lawson Vela is a 69 y.o. male who presents for surgical clearance (Pt sched 05/03/24 for left hip replacement with Dr Blair at [facility]/PAT completed). Pt has had left hip [...] mg by mouth in the morning. HYDROcodone-acetaminophen (Porter) 5-325 MG tablet Take 1 tablet by [...] with food 4 tablet 3 [DISCONTINUED] HYDROcodone-acetaminophen (Porter) 5-325 MG tablet No current facility-administered medications [...] As Previously Scheduled. documented in this encounter [facility] 04-12-2024 Telephone encounter Note OARRS reviewed, Rx sent into patient's pharmacy. [facility] 04-12-2024 Miscellaneous Notes OARRS reviewed, Rx sent into patient's pharmacy. Patient comment: Getting prepared for future surgery. documented in this encounter [facility] 04-12-2024 Telephone encounter Note Patient comment: Getting prepared for future surgery. [facility] 04-06-2024 History of Present illness [...] tx: cane, norco, ice, heat, topicals, XR [facility] 11/01/23, hot tub, PREHAB/HEP Currently seeing pain management, Dr Ludwig [facility] for LBP MEDICATION: Current Outpatient Medications [...] mg by mouth in the morning. HYDROcodone-acetaminophen (Porter) 5-325 MG tablet irbesartan-hydroCHLOROthiazide (Avalide) 150-12.5 MG [...] wrist GERD (gastroesophageal reflux disease) HTN (hypertension) ([facility]) Lumbosacral disc disease Osteoarthritis ALLERGIES: Allergies Allergen [...] IMAGING: November 01, 2023 x-rays from the [facility] AP pelvis and lateral left hip [...] Blair/demi Blair D.O. documented in this encounter [facility] 04-04-2024 Instructions Trista Pelaez RN [...] in at the main lobby of the [facility]- registration desk is straight ahead as soon as you walk in. Tell them you are here for surgery. 2. If you have a Living Will/Durable Power of Shipping And Receiving Coordinator for Health Care that is not on [...] after you have bathed. 5. NO nail argentine/acrylic on at least one finger. If you are having a hand, wrist or foot surgery then all nail argentine and artificial/acrylic nails must be removed from [...] please call the Preadmission Testing office at [phone], Mon.-Fri. 7 a.m.-3 p.m. Leave a voicemail [...] with your doctor. documented in this encounter [facility] 04-04-2024 Miscellaneous Notes Patient called and educated to watch his YOLANDA education on total hip replacement prior to his PAT appointment next week. Patient verbalized understanding. documented in this encounter [facility] 04-04-2024 Nurse Note Patient called and educated to watch his YOLANDA education on total hip replacement prior to his PAT appointment next week. Patient verbalized understanding. [facility] 03-15-2024 History of Present illness Narrative No need for Prehab appt, has walker and has recently went through NASH, spoke with pt in parking lot, reviewed precautions good understanding. documented in this encounter [facility] 02-17-2024 History of Present illness [...] wrist GERD (gastroesophageal reflux disease) HTN (hypertension) ([facility]) Lumbosacral disc disease Osteoarthritis Past Surgical History: [...] Appointment As Scheduled. documented in this encounter [facility] 02-07-2024 Hospital Discharge instructions Patient [...] urethra. Follow these instructions at home: Take tluy-xpf-ogepley and prescription medicines only as told by [...] provider. Document Revised: 12/31/2021 Document Reviewed: 12/31/2021 [employer] Patient Education 2022 [employer]. Follow Up Care 08/30/2023 12:37:09 With:PAMELA BAER, Mac Stephenson, URL Address: [facility] [address] , [place] [address]- When: Unknown [facility] 02-07-2024 Note Patient Education Urology Benign [...] Follow these instructions at home: ? Take dauy-kot-fnkmlyx and prescription medicines only as told by [...] develop side effec (more content not included)... [facility] 08-09-2023 History of Present [...] develop for requiring urgent evaluation. Jose Hernández RECOOPERER-SUPERVISOR [employer]ATS documented in this encounter [facility] 07-07-2023 Hospital course Narrative Summary: status post hip replacement right Orthopaedic Discharge Summary Patient ID: Lawson Vela [id number] y.o. 1955 Admit date: 07/07/2023 Discharge [...] Charissa Blair DO documented in this encounter [employer] 07-07-2023 Progress note Formatting of t his note is different from the original. Physical Therapy Evaluation Discharge Recommendations PT Recommendations: Home Home Recommendations: Intermittent caregiver support for: Post Discharge Therapy Recommendations: Home Physical Therapy Director Market Research Support for-: ADL Deficits, Mobility Deficits Past Medical History: Diagnosis Date Arthritis Benign prostatic hyperplasia Fractures GERD (gastroesophageal reflux disease) Hypertension Past Surgical History: Procedure Laterality Date APPENDECTOMY RELEASE CARPAL TUNNEL Right 05/29/2020 Performed by Charissa Blair DO at [facility] 6 Clicks: Basic Mobility Turning from your [...] Principal Problem: Primary osteoarthritis of right hip [facility] [employer] 07-07-2023 Miscellaneous Notes Physical Therapy Evaluation Discharge Recommendations PT Recommendations: Home Home Recommendations: Intermittent caregiver support for: Post Discharge Therapy Recommendations: Home Physical Therapy Director Market Research Support for-: ADL Deficits, Mobility Deficits Past Medical History: Diagnosis Date Arthritis Benign prostatic hyperplasia Fractures GERD (gastroesophageal reflux disease) Hypertension Past Surgical History: Procedure Laterality Date APPENDECTOMY RELEASE CARPAL TUNNEL Right 05/29/2020 Performed by Charissa Blair DO at [facility] 6 Clicks: Basic Mobility Turning from your [...] in stable condition [facility]23 Hospital Discharge instructions Janee Viera [...] swallowing) Questions, Problems, Concerns Preop phone number [phone] ext [phone] The following attachments cannot be sent through Care Everywhere.Total Hip Replacement Discharge Instructions (Kiswahili)documented in this encounter [facility] 07-07-2023 Attending History and physical note HISTORY AND PHYSICAL INTERVAL NOTE: Lawson Vela 1955 [id number] H&P reviewed. The patient was examined and there are no changes to the H&P. Charissa Blair DO Source Note - Charissa Blair DO - 07/06/2023 7:28 AM EST [facility] History and physical note HISTORY AND PHYSICAL INTERVAL NOTE: Lawson Vela 1955 [id number] H&P reviewed. The patient was examined and there are no changes to the H&P. Charissa Blair DO Source Note - Charissa Blair DO - 07/06/2023 7:28 AM EST documented in this encounter [facility] 07-07-2023 Procedure note Summary: Right hip [...] to the recovery room in stable condition [facility] [employer] 04-13-2023 Note HNO ID: [id number] Author: Laila Lewis PA-C Service: ? Author Type: Physician Rat Trapper Type: Progress Notes Filed: 04/15/2023 1:53 PM [...] week. Hydrocodone, Meloxicam Zanaflex, Lidocaine patches career services assistant Prior to ablation symptoms on left have [...] days 2 More (more content not included)... [facility] 04-13-2023 Instructions Laila Lewis PA-C - [...] which is considered uptake). Laila Lewis PA-C [phone] encounter [facility] 04-13-2023 History of Present illness Narrative [...] week. Hydrocodone, Meloxicam Zanaflex, Lidocaine patches career services assistant Prior to ablation symptoms on left have [...] MRI Lumbar: Narrative PERFORMED AT [facility] LOCATION:[facility] CLINICAL HISTORY: Low back pain extending into the right lower extremity. COMPARISON: 05/01/2022 TECHNIQUE: Multiplanar MR imaging of the lumbar spine was performed. FINDINGS: The spine is visualized from the U30-P1-D5 levels on the sagittal sequences, assuming a [...] narrowing. At the L5-S1 level, there is pobe-at-udzejjbe diffuse disc bulging and moderate hypertrophic facet changes, which results in moderate to marked neural foraminal narrowing. Procedure Note CONVERSION, GENERIC - 11/13/2022 PERFORMED AT [facility] LOCATION:[facility] CLINICAL HISTORY: Low back pain extending into the right lower extremity. COMPARISON: 05/01/2022 TECHNIQUE: Multiplanar MR imaging of the lumbar spine was performed. FINDINGS: The spine is visualized from the M24-J3-L5 levels on the sagittal sequences, assuming a [...] narrowing. At the L5-S1 level, there is skmm-nh-tlhfskwf diffuse disc bulging and moderate hypertrophic facet changes, which results in moderate to marked neural foraminal narrowing. 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 Report reported and signed by James Vizcaino on 10/19/2022 1406 CONVERSION, GENERIC - 11/14/2022 PERFORMED AT [facility] LOCATION:[place] [id number] EXAMINATION: XR HIPS TRENT 3_4V WO [...] AM PAGER: documented in this encounter [facility] 02-12-2023 Note HNO ID: [id number] Author: Laila Lewis PA-C Service: ? Author Type: Physician Rat Trapper Type: Progress Notes Filed: 02/12/2023 12:58 PM Note Text: Per Triage: Lawson Vela is a 68 year old male that requests evaluation of lumbar spine. Per review, they have symptoms of LBP into left leg pain. Positive for numbness, difficulty walking and weakness. CMT: PT Hydrocodone career services assistant Studies (Reports unless indicated) MRI Lumbar: Narrative PERFORMED AT [facility] LOCATION:[facility] CLINICAL HISTORY: Low back pain extending into the right lower extremity. COMPARISON: 05/01/2022 TECHNIQUE: Multiplanar MR imaging of the lumbar spine was performed. FINDINGS: The spine is visualized from the W77-M3-G6 levels on the sagittal sequences, assuming a [...] narrowing. At the L5-S1 level, there is mfqr-wx-crxhviyj diffuse disc bulging and moderate hypertrophic facet changes, which results in moderate to marked neural foraminal narrowing. Procedure Note CONVERSION, GENERIC - 11/13/2022 PERFORMED AT [facility] LOCATION:[facility] CLINICAL HISTORY: Low back pain extending into the right lower extremity. COMPARISON: 05/01/2022 TECHNIQUE: Multiplanar MR imaging of the lumbar spine was performed. FINDINGS: The spine is visualized from the G58-Y6-T4 levels on the sagittal sequences, assuming a [...] narrowing. At the L5-S1 level, there is rliv-hp-sastenst diffuse disc bulging and moderate hypertrophic facet changes, which results in moderate to marked neural foraminal narrowing. 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 Report reported and signed by James Vizcaino on 10/19/2022 [id number] Disposition: Please schedule with Laila. [facility] 02-12-2023 History of Present illness Narrative Per Triage: Lawson Vela is a 68 year old male that requests evaluation of lumbar spine. Per review, they have symptoms of LBP into left leg pain. Positive for numbness, difficulty walking and weakness. CMT: PT Hydrocodone career services assistant Studies (Reports unless indicated) MRI Lumbar: Narrative PERFORMED AT [facility] LOCATION:[facility] CLINICAL HISTORY: Low back pain extending into the right lower extremity. COMPARISON: 05/01/2022 TECHNIQUE: Multiplanar MR imaging of the lumbar spine was performed. FINDINGS: The spine is visualized from the X69-I4-E3 levels on the sagittal sequences, assuming a [...] narrowing. At the L5-S1 level, there is acxv-dr-ftdfruzi diffuse disc bulging and moderate hypertrophic facet changes, which results in moderate to marked neural foraminal narrowing. Procedure Note CONVERSION, GENERIC - 11/13/2022 PERFORMED AT [facility] LOCATION:[facility] CLINICAL HISTORY: Low back pain extending into the right lower extremity. COMPARISON: 05/01/2022 TECHNIQUE: Multiplanar MR imaging of the lumbar spine was performed. FINDINGS: The spine is visualized from the A06-E5-T0 levels on the sagittal sequences, assuming a [...] narrowing. At the L5-S1 level, there is ubzd-tc-mcfnozoz diffuse disc bulging and moderate hypertrophic facet changes, which results in moderate to marked neural foraminal narrowing. 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 Report reported and signed by James Vizcaino on 10/19/2022 [id number] Disposition: Please schedule with Laila. Patient name: Lawson Vela Are you being referred by a [place] for Spine Health Provider or Pain Management Provider at [facility]? No If answer is YES [...] the facility where the MRI/CT/myelogram was completed: [facility] Address: [address] [place] [address] [facility] Address: [address] [id number] MRI/CT/myelogram viewable in Epic: No If not, please provide [phone] to fax in imaging reports for review. [...] physical therapy was completed PT Injections [facility] Address: [address] [place] [id number] Have you tried any other kinds of [...] where the surgery was completed: Additional Comments [phone] (Home Phone) documented in this encounter [facility] 01-28-2023 Note HNO ID: [id number] Author: Mookie Lee Service: ? Author Type: ? Type: Progress Notes Filed: 02/12/2023 12:58 PM Note Text: Patient name: Lawson Vela Are you being referred by a [facility] Provider or Pain Management Provider at [facility]? No If answer is YES [...] the facility where the MRI/CT/myelogram was completed: [facility] Imaging Address: [address] [place] [address] [facility] Address: [address] [place] [address] MRI/CT/myelogram viewable in Epic: No If not, please provide [phone] to fax in imaging reports for review. [...] physical therapy was completed PT Injections [facility] Address: [address] [place] [address] Have you tried any other kinds of [...] where the surgery was completed: Additional Comments [phone] (Home Phone) [facility] 12-17-2022 Evaluation note Encounter Date Diagnosis [...] prednisone taper. Advised not to take any yclz-dbd-ccqckkh ibuprofen while taking prednisone. OARRS reviewed . [...] spine, education on diet, decrease sugar intake. [employer] Other 05-16-2023 NoteCONSULTATION CONSULTATION DATE: 11/10/2022 TO: [...] our patients to inform us about any qrad-gij-jhmwvnd medications or herbal remedies/nutritional supplements/alternative remedies. 2. [...] treatment options with their primary care provider.[facility] [id number] Note CONSULTATION CONSULTATION DATE: 10/08/2022 TO: Javad [...] our patients to inform us about any isgk-ssk-bqbxiyd medications or herbal remedies/nutritional supplements/alternative remedies. 2. [...] treatment options with their primary care provider.[facility] [id number] Note CONSULTATION CONSULTATION DATE: 09/10/2022 HISTORY: This [...] a tightness in that region. Medications include Porter 5/325 daily, tizanidine 4 mg q.h.s., Mobic [...] in three months' time unless otherwise indicated.[facility] [id number] NoteCONSULTATION PROCEDURE DATE: 09/10/2022 PREOPERATIVE DIAGNOSIS: Bilateral [...] pattern, and patient tolerated the procedure well.[facility] [id number] Note CONSULTATION CONSULTATION DATE: 07/23/2022 HISTORY OF [...] current medications include Mobic 50 mg daily, Porter 5/325 per his PCP daily p.r.n. and [...] up in the office after the procedure.[facility] [id number] NoteCONSULTATION CONSULTATION DATE: 06/25/2022 HISTORY OF PRESENT [...] with a vitamin regimen and he takes Porter 5/325 daily p.r.n., and Mobic 15 mg [...] following his procedure here in the office.[facility] [id number] Hospital Discharge instructions Patient Education 06/01/2022 08:22:09 [...] urethra. Follow these instructions at home: Take kudh-vue-pojijeg and prescription medicines only as told by [...] 06/14/2006 Document Revised: 05/09/2019 Document Reviewed: 07/19/2017 [employer] Patient Education 2020 [employer]. Follow Up Care 02/16/2022 11:28:21 With:PAMELA BAER, Mac Stephenson, URL Address: [facility] [address] , [place] [address]- When: Unknown [facility] 11-22-2022 NoteCONSULTATION CONSULTATION DATE: 05/19/2022 CHIEF [...] The patient currently takes Mobic 15 mg, Porter 5/325 on a p.r.n. basis as prescribed [...] had been performed. CC: Javad Donato M.D.[facility] [id number] NoteCONSULTATION CONSULTATION DATE: 04/28/2022 CHIEF COMPLAINT: Left [...] patient takes two Aleve. He also takes Porter 5/[address] Donato has prescribed for [...] would like to proceed. CC: Javad Donato M.D.[facility]08-22-2022 Hospital Discharge instructions Patient Education 02/16/2022 11:24:07 [...] urethra. Follow these instructions at home: Take imrp-usj-udknxvs and prescription medicines only as told by [...] 06/14/2006 Document Revised: 05/09/2019 Document Reviewed: 07/19/2017 [employer] Patient Education 2020 [employer] 02/16/2022 11:24:04 Calorie Counting for Weight [...] 06/14/2006 Document Revised: 03/03/2019 Document Reviewed: 05/14/2017 [employer] Patient Education 2020 [employer]. Follow Up Care 08/18/2021 12:09:57 With:Mac SANTIAGO MD, URL Address: [address] [place] [address] [place] [address] Business (1) When:Within 6 Month(s) [facility] evaluation + Plan note Future Appointments Appointment Date:06/01/2022 10:45:00 AM Scheduled Provider:Mac SANTIAGO MD Location:[facility] Appointment Type:URO Office Visit [facility] evaluation + Plan note Future Appointments Appointment Date:11/30/2022 08:45:00 AM Scheduled Provider:Mac SANTIAGO MD Location:[facility] Appointment Type:URO Office Visit [facility] evaluation + Plan note Future Appointments Appointment Date:02/05/2025 10:45:00 AM Scheduled Provider:Mac SANTIAGO MD Location:[facility] Appointment Type:URO Office Visit [facility] evaluation noteNo assessment information available [facility] Work Phone: Evaluation noteNort [facility] Other evalsvnyva note* Diagnosis Spinal stenosis, lumbar region with neurogenic claudication- Primary [facility] Diagnosis Spinal stenosis, lumbar region with neurogenic claudication- Primary Bilateral hip joint arthritis [facility]* Diagnosis Right hip pain- Primary Pain in joint, pelvic region and thigh Status post total hip replacement, right [facility] Right hip pain- Primary Pain in joint, pelvic region and thigh Status post total hip replacement, right Arthritis of right hip documented in this encounter [facility] HealthcareEvaluation note* Diagnosis Right hip pain- Primary Pain in joint, pelvic region and thigh Status post total hip replacement, right Arthritis of right hip Primary osteoarthritis of right hip Status post right hip replacement documented in this encounter [facility] HealthcareEvaluation note* Diagnosis Primary osteoarthritis of right [...] of left hip documented in this encounter [facility]* Diagnosis Herniated lumbar disc without myelopathy- Primary documented in this encounter [facility] HealthcareEvaluation note* Diagnosis Status post right hip replacement documented in this encounter [facility]Evaluation note* Diagnosis Primary osteoarthritis of left hip- Primary Benign essential hypertension (CMS/HCC) Essential hypertension, benign Class 2 severe obesity with serious comorbidity and body mass index (BMI) of 37.0 to 37.9 in adult, unspecified obesity type (CMS/HCC) documented in this encounter [facility] HealthcareEvaluation note* Diagnosis Post-operative pain- Primary Other acute postoperative pain documented in this encounter [facility] HealthcareEvaluation note* Diagnosis Post-operative pain Other acute postoperative pain documented in this encounter [facility] note* Diagnosis S/P total left hip arthroplasty- Primary documented in this encounter [facility] note* Diagnosis S/P total left hip arthroplasty- Primary documented in this encounter [facility] note* Diagnosis S/P total left hip arthroplasty- Primary Left hip pain Pain in joint, pelvic region and thigh documented in this encounter [facility]Evaluation note* Diagnosis Acute pharyngitis, unspecified etiology- Primary documented in this encounter [facility] HealthcareEvaluation note* Diagnosis Routine general medical examination [...] peripheral vascular disease documented in this encounter [facility] HealthcareEvaluation note* Diagnosis Left hip pain- Primary Pain in joint, pelvic region and thigh S/P total left hip arthroplasty documented in this encounter [facility]Evaluation note* Diagnosis Left hip pain- Primary Pain in joint, pelvic region and thigh S/P total left hip arthroplasty documented in this encounter [facility] HealthcareEvaluation note* Diagnosis Left hip pain- Primary Pain in joint, pelvic region and thigh S/P total left hip arthroplasty documented in this encounter [facility] note* Diagnosis S/P total left hip arthroplasty- Primary documented in this encounter [facility]* Diagnosis Left hip pain- Primary Pain in joint, pelvic region and thigh S/P total left hip arthroplasty documented in this encounter [facility]* Diagnosis Left hip pain- Primary Pain in joint, pelvic region and thigh S/P total left hip arthroplasty documented in this encounter [facility]* Diagnosis Left hip pain- Primary Pain in joint, pelvic region and thigh S/P total left hip arthroplasty documented in this encounter [facility] note* Diagnosis Acute non-recurrent frontal sinusitis- Primary Herniated lumbar disc without myelopathy documented in this encounter [facility]* Diagnosis Primary osteoarthritis of right hip- Primary [facility] Diagnosis Preop examination- Primary Unspecified pre-operative examination Hypertension, unspecified type Preop examination Unspecified pre-operative examination Hypertension, unspecified type [facility] Diagnosis Herniated lumbar disc without [...] region and thigh documented in this encounter [facility]* Diagnosis S/P total left [...] release 2017 Hospitalization History see surg Hx [facility] [employer] Other History general Narrative - [facility] [employer] Other Hospital course Narrative No data available for this section [facility] [employer] progress note No data available for this section [facility] [employer] reason for referral (narrative)* Diagnostic Procedure Only (Routine) - Pending Review Specialty Diagnoses / Procedures Referred By Rayray barkley Referred To Contact XR IMAGING Diagnoses Bilateral hip joint arthritis Procedures XR HIP BILATERAL 5V PEL/AP/LAT EACH HIP RADEX HIPS BILATERAL WITH PELVIS MINIMUM 5 VIEWS Laila Lewis PA-C [address] [id number] [facility] [place] [address] Referral ID Status Reason Start Date Expiration Date Visits Requested Visits Authorized [id number] Pending Review Auto-Generat ed Referral 3 05/12/2024 1 1 * Consult, Test, Treat (Routine) - Pending Review Specialty Diagnoses / Procedures Referred By Rayray barkley Referred To Contact Orthopedics Diagnoses Bilateral hip joint arthritis Procedures CONSULT TO ORTHOPAEDICS OFFICE/OUTPATIENT [facility] 60-74 MINUTES Laila Lewis PA-C [address] [place] [address] Referral ID Status Reason Start Date Expiration Date Visits Requested Visits Authorized [id number] Pending Review PCP Requested Referral 3 04/12/2024 1 1 [facility] for visit Narrativeself referral- low back pain L4-L5 [facility] [employer] Other reason for visit Narrative* Rehabilitation - Outpatient (Routine) - Authorized Specialty Diagnoses / Procedures Referred By Keyac t Referred To Contact Physical Therapy Diagnoses S/P total left hip arthroplasty Procedures TX OFFICE/OUTPATIENT NEW HIGH MDM Jose Hernández, YISEL [address] [place] [address] Phone: tel: fax: Nagi Plata, PT [address] [place] [address] Phone: tel: fax: Referral ID Status Reason Start Date Expiration Date Visits Requested Visits Authorized [id number] Authorized Consult and Treat 06/12/2024 06/27/2024 10 10 [facility] N[facility]ative* Rehabilitation - Outpatient (Routine) - Authorized Specialty Diagnoses / Procedures Referred By Keyac t Referred To Contact Physical Therapy Diagnoses S/P total left hip arthroplasty Procedures TX OFFICE/OUTPATIENT NEW HIGH MDM 60 MINUTES Jose Hernández, YISEL [address] [place] [address] Phone: tel: fax: Nagi Plata, PT [address] [place] [address] Phone: tel: fax: Referral ID Status Reason Start Date Expiration Date Visits Requested Visits Authorized [id number] Authorized Consult and Treat 06/29/2024 06/27/2025 20 20 [facility] Narrative* Rehabilitation - Outpatient (Routine) - Authorized Specialty Diagnoses / Procedures Referred By Contac t Referred To Contact Physical Therapy Diagnoses S/P total left hip arthroplasty Procedures TX OFFICE/OUTPATIENT NEW HIGH MDM 60 MINUTES Jose Hernández, Y[address] [place] [address] Phone: tel: fax: Nagi Plata, PT [address] [place] [address] Phone: tel: fax: Referral ID Status Reason Start Date Expiration Date Visits Requested Visits Authorized [id number] Authorized Consult and Treat 06/29/2024 06/27/2025 20 [...] ECG 12 lead Charissa Blair DO [address] [place] [address] Referral ID Status Reason Start Date Expiration Date V isits Requested Visits Authorized [id number] Pending Review 03/06/2024 03/06/2025 1 1 Specialty Diagnoses / Procedures Referred By Contac t Referred To Contact Procedures Remove dressing (specify when) Nagi Miner, RECOOPERER-[employer] [address], [facility] [address] [place] [address] Referral ID Status Reason Start Date Expiration Date V isits Requested Visits Authorized [id number] Pending Review 07/07/2023 07/06/2024 1 1 Specialty Diagnoses / Procedures Referred By Contac t Referred To Contact Procedures Adult diet Nagi Miner, RECOOPERER-[employer] [address], [facility] [address] [place] [address] Referral ID Status Reason Start Date Expiration Date V isits Requested Visits Authorized [id number] Pending Review 07/07/2023 07/06/2024 1 1 Additional Source Comments Care Team (unrecognized sect ion and content) Team Status: Active Member Role Status Dates Javad Donato II MD Primary Care Provider Active Team Status: Inactive Member Role Status Dates Javad Donato II MD Primary Care Provider Active Erica Xiong [employer]DERER-C Attending Provider Active Manager Global Relationship Specialty Start Date End Date Javad Donato MD [address] [place] [address] PCP - ACO Reach 11/19/22 Javad Donato MD [address] [place] [address] PCP - General Internal Medicine 01/05/23 Manager Global Relationship Specialty Start Date End Date Javad Donato MD [address] [place] [address] PCP - ACO Reach 11/19/22 Javad Donato MD [address] [place] [address] PCP - General Internal Medicine 01/05/23 Manager Global Relationship Specialty Start Date End Date Javad Donato MD [address] [place] [address] PCP - ACO Reach 11/19/22 Javad Donato MD [address] [place] [address] PCP - General Internal Medicine 01/05/23 Manager Global Relationship Specialty Start Date End Date Javad Donato MD [address] [place] [address] PCP - ACO Reach 11/19/22 Javad Donato MD [address] [place] [address] PCP - General Internal Medicine 01/05/23 Manager Global Relationship Specialty Start Date End Date Javad Donato MD [address] [place] [address] PCP - ACO Reach 11/19/22 Javad Donato MD [address] [place] [address] PCP - General Internal Medicine 01/05/23 Manager Global Relationship Specialty Start Date End Date Javad Donato MD [address] [place] [address] PCP - ACO Reach 11/19/22 Javad Donato MD [address] [place] [address] PCP - General Internal Medicine 01/05/23 Manager Global Relationship Specialty Start Date End Date Javad Donato MD [address] [place] [address] PCP - ACO Reach 11/19/22 Javad Donato MD [address] [place] [address] PCP - General Internal Medicine 01/05/23 Manager Global Relationship Specialty Start Date End Date Javad Donato MD [address] [place] [address] PCP - ACO Reach 11/19/22 Javad Donato MD [address] [place] [address] PCP - General Internal Medicine 01/05/23 Manager Global Relationship Specialty Start Date End Date Javad Donato MD [address] [place] [address] PCP - ACO Reach 11/19/22 Javad Donato MD [address] [place] [address] PCP - General Internal Medicine 01/05/23 Manager Global Relationship Specialty Start Date End Date Javad Donato MD [address] [place] [address] PCP - ACO Reach 11/19/22 Javad Donato MD [address] [place] [address] PCP - General Internal Medicine 01/05/23 Manager Global Relationship Specialty Start Date End Date Javad Donato MD [address] [place] [address] PCP - ACO Reach 11/19/22 Javad Donato MD [address] [place] [address] PCP - General Internal Medicine 01/05/23 Manager Global Relationship Specialty Start Date End Date Javad Donato MD [address] [place] [address] PCP - ACO Reach 11/19/22 Javad Donato MD [address] [place] [address] PCP - General Internal Medicine 01/05/23 Manager Global Relationship Specialty Start Date End Date Javad Donato MD [address] [place] [address] PCP - ACO Reach 11/19/22 Javad Donato MD [address] [place] [address] PCP - General Internal Medicine 01/05/23 Manager Global Relationship Specialty Start Date End Date Javad Donato MD [address] [place] [address] PCP - ACO Reach 11/19/22 Javad Donato MD [address] [place] [address] PCP - General Internal Medicine 01/05/23WednesdayMichelle LPN [address] [place] [address] Licensed Practical Nurse Family Medicine 05/08/24 Manager Global Relationship Specialty Start Date End Date Javad Donato MD [address] [place] [address] PCP - ACO Reach 11/19/22 Javad Donato MD [address] [place] [address] PCP - General Internal Medicine 01/05/23WednesdayMichelle LPN [address] [place] [address] Licensed Practical Nurse Family Medicine 05/08/24 Manager Global Relationship Specialty Start Date End Date Javad Donato MD [address] [place] [address] PCP - ACO Reach 11/19/22 Javad Donaot MD [address] [place] [address] PCP - General Internal Medicine 01/05/23Wednesday, Michelle, BACK ORDER CLERK [address] [place] [address] Licensed Practical Nurse Family Medicine 05/08/24 05/16/24 Manager Global Relationship Specialty Start Date End Date Javad Donato MD [address] [place] [address] PCP - ACO Reach 11/19/22 Javad Donato MD [address] [place] [address] PCP - General Internal Medicine 01/05/23Wednesday, Michelle BACK ORDER CLERK [address] [place] [address] Licensed Practical Nurse Family Medicine 05/08/24 05/16/24 Manager Global Relationship Specialty Start Date End Date Javad Donato MD [address] [place] [address] PCP - ACO Reach 11/19/22 Javad Donato MD [address] [place] [address] PCP - General Internal Medicine 01/05/23Wednesday, Michelle, BACK ORDER CLERK [address] [place] [address] Licensed Practical Nurse Family Medicine 05/08/24 05/16/24 Manager Global Relationship Specialty Start Date End Date Javad Donato MD [address] [place] [address] PCP - ACO Reach 11/19/22 Javad Donato MD [address] [place] [address] PCP - General Internal Medicine 01/05/23 Manager Global Relationship Specialty Start Date End Date Javad Donato MD [address] [place] [address] PCP - ACO Reach 11/19/22 Javad Donato MD [address] [place] [address] PCP - General Internal Medicine 01/05/23 Manager Global Relationship Specialty Start Date End Date Javad Donato MD [address] [place] [address] PCP - ACO Reach 11/19/22 Javad Donato MD [address] [place] [address] PCP - General Internal Medicine 01/05/23 Manager Global Relationship Specialty Start Date End Date Javad Donato MD [address] [place] [address] PCP - ACO Reach 11/19/22 Javad Donato MD [address] [place] [address] PCP - General Internal Medicine 01/05/23 Manager Global Relationship Specialty Start Date End Date Javad Donato MD [address] [place] [address] PCP - ACO Reach 11/19/22 Javad Donato MD [address] [place] [address] PCP - General Internal Medicine 01/05/23 Manager Global Relationship Specialty Start Date End Date Javad Donato MD [address] [place] [address] PCP - ACO Reach 11/19/22 Javad Donato MD [address] [place] [address] PCP - General Internal Medicine 01/05/23 Manager Global Relationship Specialty Start Date End Date Javad Donato MD [address] [place] [address] PCP - ACO Reach 11/19/22 Javad Donato MD [address] [place] [address] PCP - General Internal Medicine 01/05/23 Manager Global Relationship Specialty Start Date End Date Javad Donato MD [address] [place] [address] PCP - ACO Reach 11/19/22 Javad Donato MD [address] [place] [address] PCP - General Internal Medicine 01/05/23 Manager Global Relationship Specialty Start Date End Date Javad Donato MD [address] [place] [address] PCP - ACO Reach 11/19/22 Javad Donato MD [address] [place] [address] PCP - General Internal Medicine 01/05/23 Manager Global Relationship Specialty Start Date End Date Javad Donato MD [address] [place] [address] PCP - ACO Reach 11/19/22 Javad Donato MD [address] [place] [address] PCP - General Internal Medicine 01/05/23 Manager Global Relationship Specialty Start Date End Date Javad Donato MD [address] [place] [address] PCP - ACO Reach 11/19/22 Javad Donato MD [address] [place] [address] PCP - General Internal Medicine 01/05/23 Manager Global Relationship Specialty Start Date End Date Javad Donato MD [address] [place] [id number] PCP - General Internal Medicine 06/15/17 Manager Global Relationship Specialty Start Date End Date Javad Donato MD [address] [place] [phone] PCP - General Internal Medicine 06/15/17 Manager Global Relationship Specialty Start Date End Date Javad Donato MD [address] [place] [address] PCP - ACO Reach 11/19/22 Javad Donato MD [address] [place] [address] PCP - General Internal Medicine 01/05/23 Manager Global Relationship Specialty Start Date End Date Javad Donato MD [address] [place] [address] PCP - ACO Reach 11/19/22 Javad Donato MD [address] [facility] [address] [place] [address] PCP - General Internal Medicine 01/05/23 (unrecognized sect ion and content) No Status Records FoundNo Status Records FoundNo Status Records FoundNo Status Records FoundNo Status Records FoundNo Status Records FoundNo Status Records FoundNo Status Records FoundNo Status Records Found INFORMATION SOURCE (unrecogn ized section and content) DATE CREATED AUTHOR 05/02/2022 [facility] Me dical Specialist DATE CREATED AUTHOR AUTHOR'S ORGANIZ ATION 12/04/2022 [facility] DATE CREATED AUTHOR AUTHOR'S ORGANIZ ATION 01/13/2023 [facility] DATE CREATED AUTHOR AUTHOR'S ORGANIZ ATION 02/13/2023 [facility] DATE CREATED AUTHOR AUTHOR'S ORGANIZ ATION 04/17/2023 [facility] DATE CREATED AUTHOR AUTHOR'S ORGANIZ ATION 02/09/2024 [facility] DATE CREATED AUTHOR AUTHOR'S ORGANIZ ATION 05/05/2024 [facility] DATE CREATED AUTHOR AUTHOR'S ORGANIZ ATION 06/18/2024 [facility] DATE CREATED AUTHOR AUTHOR'S ORGANIZ ATION 11/05/2024 [facility] EPIC Goals (unrecognized section and [...] prosecute any alcohol or drug abuse patient.[facility] the event this information is protected by the Federal Confidentiality of Alcohol and Drug Abuse Patient Records regulations: The Federal rules restrict any use of the information to criminally investigate or prosecute any alcohol or drug abuse patient.[facility] Reason for Visit (unrecogniz ed section and content) Reason Comments New Patient Specialty Diagnoses / Procedures Referred By Contac t Referred To Contact Physical Therapy Diagnoses Presence of artificial hip joint, right Procedures TX OFFICE/OUTPATIENT NEW HIGH MDM 60 MINUTES Charissa Blair, DO [address] [facility] [address] [place] [address] [address] [place] [address] Referral ID Status Reason Start Date Expiration Date Visits Requested Visits Authorized [id number] Authorized Specialty Services Required 07/08/2023 01/04/2024 30 30 Reason Comments Follow-up Reason Comments Pain Reason Onset Date Comments Med Refill 04/12/2024 Reason Comments surgical clearance Pt sched 05/03/24 for left hip replacement with Dr Blair at [facility] completed Reason Onset Date Comments [...] hip right hip degenerative joint disease Procedures TX TOTAL HIP ARTHROPLASTY REPLACEMENT TOTAL JOINT HIP Charissa Blair, DO [address] [facility] [address] [place] [address] Referral ID Status Reason Start Date Expiration Date Visits Re quested Visits Authorized [id number] 1 1 Reason Comments Hypertension Results Labs [...] BE BASED ON THE PRIMARY CLINICAL RECORDS. [facility] [employer] [facility]. provides no warranty or guarantee of the accuracy or completeness of information in this document.
--- NOTE | 2024-11-15 08:34 | PM.CN ---
Consult Note: HPI Data of Consult Patient: known to practice within the last 3 years Requesting Physician: Kath Steiner NP Primary Care Provider: JOHNATHAN LÓPEZ Consult Narrative Reason for consult: low back pain Narrative: Lawson Vela a pleasant 69 year old male with longstanding low back and left SIJ pain. Pt has a hx of lumbar ddd, lumbar stenosis, and lumbar spondylosis on prior advanced imaging. Pt recently completed > 6 weeks of aquatherapy with mild improvement. Pt has failed to benefit from > 6 weeks of PT/provider guided HEP, heat, ice, tylenol, and NSAIDs. currently utilizing mobic 15mg daily, tizanidine 4mg hS PRN, and norco 5-325mg PRN. Pain today 1/10 increasing to 5/10 with standing, walking, cooking, standing at the sink, activity. pt recently underwent left L4/5 L5/S1 TFESI with >80% improvement in NC ongoing, pt reports he has been very activite with tremendous relief, noticing significant improvement in standing, walking, ambulating up steps. cc:: CC: Kath Steiner NP Review of Systems ROS Musculoskeletal Reports: back pain, extremity pain and joint pain PFSH PFSH Medical History (Updated 10/25/24 @ 07:58 by Kath Setiner NP) Neuritis ?M79.2 - Neuralgia and neuritis, unspecified (ICD-10) Left carpal tunnel syndrome ?G56.02 - Carpal tunnel syndrome, left upper limb (ICD-10) Osteoarthritis ?M19.90 - Unspecified osteoarthritis, unspecified site (ICD-10) Low back pain ?M54.50 - Low back pain, unspecified (ICD-10) Obesity ?E66.9 - Obesity, unspecified (ICD-10) Enlarged prostate ?N40.0 - Benign prostatic hyperplasia without lower urinary tract symptoms (ICD-10) Former smoker ?Z87.891 - Personal history of nicotine dependence (ICD-10) Hypertension ?I10 - Essential (primary) hypertension (ICD-10) Surgical History (Updated 10/27/24 @ 14:45 by Rachel Tejeda) H/O carpal tunnel repair ?Z98.890 - Other specified postprocedural states (ICD-10) H/O total hip arthroplasty ?Z96.649 - Presence of unspecified artificial hip joint (ICD-10) Hx of appendectomy ?Z90.49 - Acquired absence of other specified parts of digestive tract (ICD-10) Social History Smoking status: Former smoker Meds Home Medications and Allergies Home Medications ?Medication ?Instructions ?Recorded ?Confirmed ?Type ascorbic acid (vitamin C) 500 mg 500 mg PO DAILY 12/10/22 11/06/24 History tablet (C-500) bee pollen 550 mg capsule mg PO .QD 12/10/22 History carvedilol 6.25 mg tablet 6.25 mg PO BID 12/10/22 11/06/24 History cholecalciferol (vitamin D3) 10 10 mcg PO DAILY 12/10/22 11/06/24 History mcg (400 unit) capsule (Vitamin D3) finasteride 5 mg tablet 5 mg PO .QD 12/10/22 11/06/24 History hydrocodone 5 mg-acetaminophen 325 1 tab PO QID PRN pain 12/10/22 11/06/24 History mg tablet mecobalamin (vitamin B12) 1,000 1,000 mcg PO DAILY 12/10/22 11/06/24 History mcg chewable tablet (B12 Active) meloxicam 15 mg tablet 15 mg PO .QD 12/10/22 11/06/24 History multivitamin 1 tab PO DAILY 12/10/22 07/04/24 History sildenafil 100 mg tablet (Viagra) 100 mg PO DAILY PRN sexual activity 12/10/22 11/06/24 History solifenacin 10 mg tablet 10 mg PO DAILY 12/10/22 11/06/24 History tamsulosin 0.4 mg capsule 0.4 mg PO Q24H 12/10/22 11/06/24 History tizanidine 4 mg capsule 4 mg PO .HS PRN muscle spasticity 12/10/22 11/06/24 History vitamin B complex (Complex B-100 1 tab PO DAILY 12/10/22 11/06/24 History tablet,extended release) zinc 50 mg tablet 50 mg PO DAILY 12/10/22 11/06/24 History Allergies Allergy/AdvReac Type Severity Reaction Status Date / Time No Known Drug Allergies Allergy Verified 11/06/24 08:39 Exam Constitutional Documenting provider has reviewed patient's vital signs: yes Common normals: no apparent distress, oriented x3, healthy appearing, alert and well nourished General appearance: cooperative HENMT Common normals: normocephalic, hearing grossly normal bilaterally and moist oral mucous membranes Head and scalp: normocephalic Eye Common normals: PERRL Pupil: PERRL Neck & C-Spine Common normals: full ROM General: normal visual inspection Chest Common normals: inspection of chest normal Respiratory Common normals: normal respiratory effort, no retractions and no use of accessory muscles Back & Pelvis Lumbar spine/lower back: pain with ROM and straight leg raise negative bilaterally; no lumbar spinal tenderness Sacroiliac joints: SI joint(s) abnormal Other: sensation intact BLE strength 5/5 in BLE left sij positive sayra(patricks), gaenslens, thigh thrust, compression test Neuro Common normals: oriented x3 Sensorium/orientation: alert Psych Common normals: mental status grossly normal, thought process normal, cooperative, affect normal, speech normal and activity/motor behavior normal Speech: normal speech Thought process: normal thought process Results Additional Findings Additional findings: If on a controlled substance or opioids, I have checked an [place]AR[place] report on this patient and there are no aberrancies noted in the prescribing history.??If on a controlled substance or opioid a drug screen was completed and reviewed within the last year, and if there has not been a drug screen completed we ordered one today to monitor higher risk, state monitored pain medication use. As part of providing excellent, safe, comprehensive care, the following was completed at our patient's visit: 1. A medication reconciliation and review to ensure accurate knowledge of current/active medications, including asking our patients to inform us about any [id number] medications or herbal remedies/nutritional supplements/alternative remedies. 2. A review to specifically ensure our patients have had annual screening for screening for depression, screening for tobacco use, and screening for unhealthy alcohol use. For concerning screenings had a discussion with the patient, provided patient education, and recommended follow-up with primary care provider when appropriate. If patient noted with a risk of falling, they received education on strength, gait, and balance training to prevent future risk of falling. Portions of this note may have been carried over from the previous visit and updated as appropriate. Please note this office utilizes paper charting in addition to the electronic medical record. A list of current medications, vitals, and PMH is available there as the clinical staff outside of myself do not have access to [facility] charting during the clinic day operations. As part of providing quality comprehensive care the current medications, vitals, and PMH were reviewed in the paper chart. Assessment and Plan Assessment and Plan (1) Lumbar stenosis with neurogenic claudication: Assessment and Plan: 11/06/24 left L4-5 L5-S1 TFESI >50% improvement ongoing (2) Sacroiliitis: Assessment and Plan: The patient has had over 3 months of moderate to severe low back and left SIJ with functional impairment and inadequate response to conservative care including NSAIDS (unless there are contraindication such as concurrent blood thinners), multiple oral or topical pain medications, and home exercise program/physical therapy.? Patient has completed >6 weeks of guided home exercise program and/or formal physical therapy program without relief of their symptoms.? The Oswestry Disability Index was completed, and the patient scored a 24%.? The patient noted the following:?? moderate to severe pain impacting ADLs, standing, walking, sleep, social life, travel We discussed the risks and benefits of the procedure with the patient, and we are NOT planning on using sedation as outlined in the guidelines from Medicare unless there is a documented reason that sedation would be strongly recommended.?? ?The procedure will be completed with fluoroscopic guidance.? (3) Myofascial pain: Plan left SIJ injection under fluoroscopy continue HEP as tolerated continue current medications f/u 2 weeks after injection
== END 2024-11-15 07:49 | disposition home or self-care (01) ==
LOC: PM 07:49
PROVIDERS: PCP Internal Medicine; Visit Provider Nurse Practitioner
DX: M48.062 Spinal stenosis, lumbar region with neurogenic claudication (principal); M46.1 Sacroiliitis, not elsewhere classified; M79.18 Myalgia, other site
CPT/HCPCS: G0463

== ENCOUNTER 2024-11-27 10:16 | Day surgery (SDC) | payer MEDICARE, OTHER, SELFPAY ==
--- OUTSIDE RECORDS SUMMARY | 2024-11-27 10:18 | XMS_ITS | Encounter Summary ---
Author Organization [facility] Address [address] [place] [address] Care Team Providers Care Master Rigger Name Role Phone Javad Donato MD Unavailable [phone] Javad Donato MD Primary Care Provider Wednesday, Michelle ARGUETA Unavailable [phone] Encounter Details Date Type Department Care Team (Late st Contact Info) Description 01/11/2023 Abstract [facility] [address] [facility] [address] [place] [address] Javad Donato MD [address] [facility] [address] [place], [place] [id number] Social History Tobacco Use Types Packs/Day Years Used Date Smoking Tobacco: Former Cigarettes Q uit: 09/27/1975 Smokeless Tobacco: Never Tobacco Cessation:Counseling Given: Not Answered Alcohol Use Standard Drinks/Week Comments Yes 2 (1 standard drink = 0.6 oz pur e alcohol) Sex and Gender Information Value Date Recorded Sex Assigned at Male 05/10/2023 10:38 AM EST Legal Sex Male 8:11 PM EDT Gender Identity Male 05/10/2023 10:38 AM EST Sexual Orientation Straight 05/10/2023 10 :38 AM EST documented as of this encounter Plan of Treatment Upcoming Encounters Date Type Department Care Team (Late st Contact Info) Description 04/26/2025 9:00 AM EDT Office Visit [facility] [address] [facility] [address] [place] [address] Javad Donato MD [address] [facility] [address] [place] [address] 04/30/2025 8:00 AM EST Office Visit [facility] [address] [place] [phone] Jose Robins, FLIGHT OPERATIONS SPECIALIST [address] [place] [address] documented as of this encounter Visit Diagnoses Not on filedocumented in this encounter Care Teams Master Rigger Relationship Specialty Start Date End Date Javad Donato MD [address] [facility] [address] [place] [address] PCP - ACO Reach 11/19/22 Javad Donato MD [address] [facility] [address] [place] [address] PCP - General Internal Medicine 01/05/23Wednesday, ELLIE Martinez [address] [place] [address] Licensed Practical Nurse Family Medicine 05/08/24 05/16/24 documented as of this encounter
--- OUTSIDE RECORDS SUMMARY | 2024-11-27 10:18 | XMS_ITS | Encounter Summary ---
Author Organization [facility] Address [address] [place] [address] Care Team Providers Care Gas Processing Plant Operator Name Role Phone Javad Donato MD Unavailable [phone] Javad Donato MD Primary Care Provider Wednesday, Michelle ARGUETA Unavailable [phone] Encounter Details Date Type Department Care Team (Late st Contact Info) Description 02/03/2023 Abstract [facility] [address] [facility] [address] [place] [phone] Javad Donato MD [address] [facility] [address] [place], [place] [id number] Social History Tobacco Use Types Packs/Day Years Used Date Smoking Tobacco: Former Cigarettes Q uit: 09/27/1975 Smokeless Tobacco: Never Alcohol Use Standard Drinks/Week Comments Yes 2 [...] Visit [facility] [address] [facility] [address] [place] [address] Javad Donato MD [address] [facility] [address] [place] [address] 04/30/2025 8:00 AM EST Office Visit [facility] [address] [place] [phone] Jose Robins, ELECTRIC ACCOUNTING MACHINE OPERATOR [address] [place], [place] [id number] documented as of this encounter Visit Diagnoses Not on filedocumented in this encounter Care Teams Gas Processing Plant Operator Relationship Specialty Start Date End Date Javad Donato MD [address] [facility] [address] [place] [address] PCP - ACO Reach 11/19/22 Javad Donato MD [address] [facility] [address] [place] [address] PCP - General Internal Medicine 01/05/23Wednesday, ELLIE Martinez [address] [place] [address] Licensed Practical Nurse Family Medicine 05/08/24 05/16/24 documented as of this encounter
--- OUTSIDE RECORDS SUMMARY | 2024-11-27 10:18 | XMS_ITS | Encounter Summary ---
Author Organization [facility] Address [address] [place] [address] Care Team Providers Care President Practicing Urologist Name Role Phone Javad Donato MD Unavailable [phone] Javad Donato MD Primary Care Provider Wednesday, Michelle ARGUETA Unavailable [phone] Encounter Details Date Type Department Care Team (Late st Contact Info) Description 03/02/2023 Abstract [facility] [address] [facility] [address] [place] [address] Javad Donato MD [address] [facility] [address] [place], [place] [id number] Social History Tobacco Use Types Packs/Day Years [...] Visit [facility] [address] [facility] [address] [place] [address] Javad Donato MD [address] [facility] [address] [place] [address] 04/30/2025 8:00 AM EST Office Visit [facility] [address] [place] [phone] Jose Robins, CUSTOMER PROFESSIONAL [address] [place], [place] [phone] documented as of this encounter Visit Diagnoses Not on filedocumented in this encounter Care Teams President Practicing Urologist Relationship Specialty Start Date End Date Javad Donato MD [address] [facility] [address] [place] [address] PCP - ACO Reach 11/19/22 Javad Donato MD [address] [facility] [address] [place] [address] PCP - General Internal Medicine 01/05/23Wednesday, ELLIE Martinez [address] [place] [address] Licensed Practical Nurse Family Medicine 05/08/24 05/16/24 documented as of this encounter
--- OUTSIDE RECORDS SUMMARY | 2024-11-27 10:18 | XMS_ITS | Encounter Summary ---
Author Organization [facility] Address [address] [place] [address] Care Team Providers Care Metal Refiner Name Role Phone Javad Donato MD Unavailable [phone] Javad Donato MD Primary Care Provider Wednesday, Michelle ARGUETA Unavailable [phone] Encounter Details Date Type Department Care Team (Late st Contact Info) Description 05/17/2023 Abstract [facility] [address] [facility] 110 [place] [address] Javad Donato MD [address] [facility] [address] [place], [place] [id number] Social History Tobacco Use Types Packs/Day Years Used Date Smoking Tobacco: Former Cigarettes Q uit: 09/27/1975 Smokeless Tobacco: Never Alcohol Use Standard Drinks/Week Comments Yes 2 (1 standard drink = 0.6 oz pur e alcohol) Humiliation, Afraid, Rape, and Kick questionnair e Answer Date Recorded Within the last year, have y ou been afraid of your partner or ex-partner? No 05/10/2023 Within the last year, have y ou been humiliated or emotionally abused in other ways by your partner or ex-partner? No Within the last year, have y ou been kicked, hit, slapped, or otherwise physically hurt by your partner or ex-partner? No 05/10/2023 Within the last year, have y ou been raped or forced to have any kind of sexual activity by your partner or ex-partner? No 05/10/2023 Social Connection and Isolat ion Panel [NHANES] Answer Date Recorded In a typical week, how many times do you talk on the phone with family, friends, or neighbors? Three times a week 05/10/2023 How often do you get togethe r with friends or relatives? Once a week 05/10/2023 How often do you attend [facility] or baptism services? 1 to 4 times per year 05/10/2023 Do you belong to any clubs o r organizations such as jainism groups, unions, fraternal or athletic groups, or school groups? Yes 05/10/2023 How often do you attend meet ings of the clubs or organizations you belong to? More than 4 times per year 05/10/2023 Are you , , di vorced, , never , or living with a partner? Living with partner 05/10/2023 AUDIT-C Answer Date Recorded Q1: How often do you have a drink containing alc ohol? 2-3 times a week 05/10/2023 Q2: How many drinks containi ng alcohol do you have on a typical day when you are drinking? 1 or 2 05/10/2023 Q3: How often do you have si x or more drinks on one occasion? Never 05/10/2023 Overall Financial Resource Strain (CARDIA) Answe r Date Recorded How hard is it for you to pa y for the very basics like food, housing, medical care, and heating? Somewhat hard 05/10/2023 PHQ-2 Answer Date Recorded Patient Health Questionnaire-2 Score 0 05/17/2023 [facility] - Occupational Stress Questionnaire Answer Date Recorded Do you feel stress - tense, restless, nervous, or anxious, or unable to sleep at night because your mind is troubled all the time - these days? To some extent 05/10/2023 Exercise Vital Sign Answer Date Recorde d On average, how many days pe r week do you engage in moderate to strenuous exercise (like a brisk walk)? 0 days 05/10/2023 On average, how many minutes do you engage in exercise at this level? 30 min 05/10/2023 Hunger Vital Sign Answer Date Recorded Within the past 12 months, y ou worried that your food would run out before you got the money to buy more. Never true 05/10/20 23 Within the past 12 months, t he food you bought just didn't last and you didn't have money to get more. Never true 05/10/2023 PRAPARE - Transportation Answer Date Re corded In the past 12 months, has l ack of transportation kept you from medical appointments or from getting medications? No 04/28 In the past 12 months, has l ack of transportation kept you from meetings, work, or from getting things needed for daily living? No 05/10/2023 Housing Stability Vital Sign Answer Zion e Recorded In the last 12 months, was t here a time when you were not able to pay the mortgage or rent on time? No 05/10/2023 In the last 12 months, how many places have you lived? 1 05/10/2023 In the last 12 months, was t here a time when you did not have a steady place to sleep or slept in a usp (including now)? No 05/10/2023 Sex and Gender Information Value Date Recorded Sex Assigned at Male 05/10/2023 10:38 AM EST Legal Sex Male 8:11 PM EDT Gender Identity Male 05/10/2023 10:38 AM EST Sexual Orientation Straight 05/10/2023 10 :38 AM EST COVID-19 Exposure Response Date Recorded In the last 10 days, have yo u been in contact with someone who was confirmed or suspected to have Coronavirus/COVID-19? No / Unsure 05/10/2023 10:04 AM EST documented as of this encounter Functional Status * Over the past 2 weeks, how often have you been bothered by any of the following problems? Question Answer Date of Assessment Author Little interest or pleasure in doing things Not at all 05/17/2023 10:00 AM EST France Farah L PN Feeling down, depressed, or hopeless Not at all 05/17/2023 10:00 AM EST France Farah L PN Patient Health Questionnaire -2 Score 0 05/17/2023 10:00 AM EST France Farah L PN documented as of this encounter Plan of Treatment Upcoming Encounters Date Type Department Care Team (Late st Contact Info) Description 04/26/2025 9:00 AM EDT Office Visit [facility] [address] [facility] [address] [place] [address] Javad Donato MD [address] [facility] [address] [place] [address] 04/30/2025 8:00 AM EST [facility] [address] [facility] [place] [phone] Jose Robins, PLATFORM BUILDER [address] [place] [place] [address] documented as of this encounter Visit Diagnoses Not on filedocumented in this encounter Care Teams Metal Refiner Relationship Specialty Start Date End Date Javad Donato MD [address] [place] [address] PCP - ACO Reach 11/19/22 Javad Donato MD [address] [facility] [address] [place] [address] PCP - General Internal Medicine 01/05/23Wednesday, ELLIE Martinez [address] [place] [address] Licensed Practical Nurse Family Medicine 05/08/24 05/16/24 documented as of this encounter
--- OUTSIDE RECORDS SUMMARY | 2024-11-27 10:18 | XMS_ITS | Encounter Summary ---
Author Organization [facility] Address [address] [place] [address] Care Team Providers Care Sliver Lap Machine Tender Name Role Phone Javad Donato MD Unavailable [phone] Javad Donato MD Primary Care Provider [phone] Wednesday, Michelle ARGUETA Unavailable [phone] Encounter Details Date Type Department Care Team (Late st Contact Info) Description 03/16/2023 Abstract [facility] [address] [facility] [address] [place] [address] Javad Donato MD [address] [facility] 110 [place], [place] [id number] Social History Tobacco Use Types Packs/Day Years [...] Visit [facility] [address] [facility] [address] [place] [address] Javad Donato MD [address] [place] [address] [place] [address] 04/30/2025 8:00 AM EST Office Visit [facility] [address] [place] [phone] Jose Robins, SENIOR INVESTMENT ANALYST [address] [place], [place] [address] documented as of this encounter Visit Diagnoses Not on filedocumented in this encounter Care Teams Sliver Lap Machine Tender Relationship Specialty Start Date End Date Javad Donato MD [address] [place] [address] PCP - ACO Reach 11/19/22 Javad Donato MD [address] [place] [address] [place] [address] PCP - General Internal Medicine 01/05/23Wednesday, ELLIE Martinez [address] [place] [address] Licensed Practical Nurse Family Medicine 05/08/24 05/16/24 documented as of this encounter
--- OUTSIDE RECORDS SUMMARY | 2024-11-27 10:19 | XMS_ITS | Clinical Summary ---
Author Organization Shut Down tem Address [id number] [address] [place] [address] Care Team Providers Care Sr Risk Management Consultant Name Role Phone Javad Donato MD Primary Care Provider Allergies Active Allergy Reactions Criticality Noted Date Comments Carvedilol Dizziness Low 06/29/2022 Severe vertigo Medications tamsulosin (FLOMAX) 0.4 mg capsule Take 1 capsule (0.4 mg total) by mouth in the morning and 1 capsule (0.4 mg total) before bedtime. Active meloxicam (MOBIC) 7.5 mg tablet Take 1 tablet (7.5 mg total) by mouth in the morning. Active HYDROcodone-meng taminophen (NORCO) 5-325 mg per tablet Take 1 tablet by mouth every 6 (six) hours as needed for pain. Active irbesartan-hydr oCHLOROthiazide (AVALIDE) 150-12.5 mg per tablet Take 1 tablet by mouth in the morning. 02/08/2023 Active sildenafiL (VIAGRA) 100 mg tablet Take 1 tablet (100 mg total) by mouth as needed. Active solifenacin (VESICARE) 10 mg tablet Take 1 tablet (10 mg total) by mouth in the morning. 09/30/2022 Active finasteride (PROSCAR) 5 mg tablet Take 1 tablet (5 mg total) by mouth in the morning. 07/29/2022 Active cholecalciferol 1,000 units tablet Take 1 tablet (1,000 Units total) by mouth in the morning. Active folic acid/multivit-m in/lutein (CENTRUM SILVER ORAL) Take 1 tablet by mouth in the morning. Active BEE POLLEN ORAL Take 1 tablet by mouth in the morning. Active vitamin B complex (B COMPLEX 1 ORAL) Take 1 tablet by mouth in the morning. Active ascorbic acid (VITAMIN C) 500 mg tablet Take 1 tablet (500 mg total) by mouth in the morning. Active magnesium 200 mg tablet Take 1 tablet by mouth in the morning. Active selenium 200 mcg capsule Take 1 capsule (200 mcg total) by mouth in the morning. Active zinc gluconate 50 mg tablet Take 1 tablet (50 mg total) by mouth in the morning. Active tiZANidine (ZANAFLEX) 4 mg tablet Take 1 tablet (4 mg total) by mouth every 6 (six) hours as needed for muscle spasms. Active Active Problems Problem Noted Date Diagnosed Date Primary localized osteoarthritis of left hip 11/2023 Primary osteoarthritis of right hip 07/06/2023 Social History Tobacco Use Types Packs/Day Years Used Date Smoking Tobacco: Former Cigarettes 2 8 1 968 - 1975 Smokeless Tobacco: Never Tobacco Cessation:Counseling Given: Not Answered Comments:1975 quit smoking Alcohol Use Standard Drinks/Week Comments Yes 0 (1 standard drink = 0.6 oz pur e alcohol) rare [facility] Utilities Answer Date Recorded In the past 12 months has th e [employer], gas, oil, or water Clicker threatened to shut off services in your home? No 05/03/2024 PRAPARE - Transportation Answer Date Re corded In the past 12 months, has l ack of transportation kept you from medical appointments or from getting medications? No 11/2023 In the past 12 months, has l ack of transportation kept you from meetings, work, or from getting things needed for daily living? No 05/03/2024 Housing Instability Answer Date Recorde d Are you worried or concerned that in the next two months you may not have stable housing that you own, rent or stay in as a part of a household? No 05/03/2024 Childcare Answer Date Recorded Childcare Unknown 12/07/2018 Employment Answer Date Recorded Employment Unknown 12/07/2018 Hunger Screening Answer Date Recorded Within the past 12 months we worried whether our food would run out before we got money to buy more. Never True 05/03/2024 Within the past 12 months th e food we bought just didn't last and we didn't have money to get more. Never True 05/03/2024 Purpose - Life Answer Date Recorded Purpose and direction in life Unknown Sex and Gender Information Value Date Recorded Sex Assigned at Male 06/07/2023 2:34 PM EST Legal Sex Male 11:22 PM EDT Gender Identity Male 06/07/2023 2:34 PM EST Sexual Orientation Straight 06/07/2023 2: 34 PM EST Last Filed Vital Signs Vital Sign Reading Time Taken Comments Blood Pressure 121/74 05/03/2024 10:35 AM EST Pulse 74 05/03/2024 10:35 AM EST Temperature 36.4 C (97.6 F) 05/03/2024 10:35 AM EST Respiratory Rate 14 05/03/2024 10:35 AM EST Oxygen Saturation 100% 05/03/2024 10:35 AM EST Inhaled Oxygen Concentration - - Weight 128 kg (282 lb 3 oz) 05/03/2024 6:[address] Height 185 cm (6' 0.84 ) 05/03/2024 6:37 AM EST Body Mass Index 37.4 05/03/2024 6:37 AM EST Plan of Treatment Health Maintenance Due Date Last Done Comments Depression Screening 1966 Adult BMI Follow Up Plan 01/02/1972 Zoster (Shingles) Vaccine (2 of 3) 07/08/2015 05/13/2015 Abdominal Aortic Aneurysm (A AA) Screen 2019 Fall Risk Screening 2019 Influenza Vaccine 02/26/2025 05/17/2023, , 05/21/2020, Additional history exists Adult BMI Screening 05/03/2025 05/03/2024 Tobacco Screening 05/03/2025 05/03/2024 DTaP,Tdap and Td Vaccines (2 - Td or Tdap) 05/18/2033 05/18/2023 Goals Goal Patient Goal Type Associated Problems Recent Progress Patient-Stated? Author DC to home with [facility] General Yes Radha Casillas LSW Note: Evaluation of progress towards goal: In progress: DC to home with [facility] and family support. Hopes to DC to home today. Medical Devices Implanted Type Area Plastics Worker Device Identifier Shelf Expiration Date Model / Serial / Lot Shell Actb 56mm Hip 4 Hl Clr Cd [place] G7 F Hmsphr - Sna - [id number] Implanted:Qt y: 1 on 07/07/2023 by Amauri Blair DO at [facility] Orthopedic Implant Right: Hip [employer] 04/03/2033 [id number] / NA / [id number] Liner Actb 36mm F Vivacit-E Lum G7 Hip Strl Lf - [id number] Implanted:Qt y: 1 on 07/07/2023 by Amauri Blair DO at [facility] Orthopedic Implant Right: Hip [employer] 05/01/2028 [id number] / / [id number] Stem Fem 129d 4 12/14 45.5mm Fitmore Protasul-64 Hip Rgh - [id number] Implanted:Qt y: 1 on 07/07/2023 by Amauri Blair DO at [facility] Orthopedic Implant Right: Hip [employer] 10/29/2032 [id number] / / [id number] Shell Actb 56mm Hip 4 Hl Clr Cd [place] G7 F Hmsphr - Sna - [id number] Implanted:Qt y: 1 on 05/03/2024 by Amauri Blair DO at [facility] Orthopedic Implant Left: Hip [employer] 12/11/2033 [id number] / NA / [id number] Liner Actb 36mm F Vivacit-E Lum G7 Hip Strl Lf - Sna - [id number] Implanted:Qt y: 1 on 05/03/2024 by Amauri Blair DO at [facility] Orthopedic Implant Left: Hip [employer] 02/20/2029 [id number] / NA / [id number] Stem Fem 129d 4 1214 45.5mm Fitmore Protasul-64 Hip Rgh - Sna - [id number] Implanted:Qt y: 1 on 05/03/2024 by Amauri Blair DO at [facility] Orthopedic Implant Left: Hip [employer] 01/25/2029 [id number] / NA / [id number] Head Fem 36mm +7mm 06/10 Xl Blx D Hip Actb - Sna - [id number] Implanted:Qt y: 1 on 05/03/2024 by Amauri Blair DO at [facility] Orthopedic Implant Left: Hip [employer] 04/25/2031 [id number] / NA / [id number] [employer] Femoral Head 36mm Implanted:Qt y: 1 on 07/07/2023 by Amauri Blair DO at [facility] Other Implant Right: Hip [employer] 10/21/2031 [id number] / / [id number] Screw Bn 30mm 6.5mm St Actb Seven Trlg Strl Rpl [id number] - [id number] Implanted:Qt y: 1 on 07/07/2023 by Amauri Blair DO at [facility] Screw Right: Hip [employer] 01/21/2033 [id number] / / [id number] Screw Bn 30mm 6.5mm St Actb Seven Trlg Strl Rpl [id number] 165+[id number] - [id number] Implanted:Qt y: 1 on 07/07/2023 by Amauri Blair DO at [facility] Screw Right: Hip [employer] 02/08/2033 [id number] / / [id number] Screw Bn 30mm 6.5mm St Actb Seven Trlg Strl Rpl [id number]+324 165+[id number] - [id number] Implanted:Qt y: 1 on 07/07/2023 by Amauri Blair DO at [facility] Screw Right: Hip [employer] 02/08/2033 [id number] / / [id number] Screw Bn 30mm 6.5mm St Actb Seven Trlg Strl Rpl [id number]+324 165+[id number] - Sna - [id number] Implanted:Qt y: 1 on 05/03/2024 by Amauri Blair DO at [facility] Screw Left: Hip [employer] 11/09/[id number] 0 / NA / [id number] Screw Bn 30mm 6.5mm St Actb Seven Trlg Strl [facility] [id number] 165+[id number] - Sna - [id number] Implanted:Qt y: 1 on 05/03/2024 by Amauri Blair DO at [facility] Screw Left: Hip [employer] 11/29/203322-8070-808-3 0 / NA / [id number] Insurance [address] [place] [address] MEDICARE MEDICAL [place] Advance Directives * Full Code (Latest Code Status on File) Date Activated Date Inactivated Comments 05/03/2024 7:48 AM 05/03/2024 6:58 PM * Full Code Date Activated Date Inactivated Comments 07/06/2023 5:59 PM 07/07/2023 4:47 PM Care Teams Sr Risk Management Consultant Relationship Specialty Start Date End Date Javad Donato MD [address] [phone] PCP - General Internal Medicine 06/15/17
--- OUTSIDE RECORDS SUMMARY | 2024-11-27 10:19 | XMS_ITS | Encounter Summary ---
Author Organization [facility] Address [address] [place] [address] Care Team Providers Care Folder Operator Name Role Phone Javad Donato MD Unavailable [phone] Javad Donato MD Primary Care Provider Wednesday, Michelle ARGUETA Unavailable [phone] Reason for Visit * Reason Onset Date Comments Med Refill 12/07/2023 Encounter Details Date Type Department Care Team (Late st Contact Info) Description 12/07/2023 Refill [facility] 112 [facility] [address] [place] [phone] Javad Donato MD 112 [facility] 110 [place], [place] [address] Social History Tobacco Use Types Packs/Day Years [...] week 05/10/2023 How often do you attend chur or sikhism services? 1 to 4 times per year 05/10/2023 Do you belong to any clubs o r organizations such as adventist groups, unions, fraternal or athletic groups, or [...] Recorded Patient Health Questionnaire-2 Score 0 05/17/2023 [facility] [...] place to sleep or slept in a detention (including now)? No 05/10/2023 Sex and Gender [...] EDT Office Visit [facility] 112 [facility] [address] [place] [phone] Javad Donato MD 112 [facility] 110 [place] [address] 04/30/2025 8:00 AM EST Office Visit [facility] [address] [place] [phone] Jose Robins, INSPECTOR AND CLERK [address] [place] [address] documented as of this encounter Visit Diagnoses Not on filedocumented in this encounter Care Teams Folder Operator Relationship Specialty Start Date End Date Javad Donato MD [address] [place] [address] [place] [address] PCP - ACO Reach 11/19/22 Javad Donato MD [address] [place] [address] [place] [address] PCP - General Internal Medicine 01/05/23Wednesday, ELLIE Martinez [address] [place] [address] Licensed Practical Nurse Family Medicine 05/08/24 05/16/24 documented as of this encounter
--- OUTSIDE RECORDS SUMMARY | 2024-11-27 10:19 | XMS_ITS | Encounter Summary ---
Author Organization [facility] Address [address] [place] [address] Care Team Providers Care Chicken Tender Name Role Phone Javad Donato MD Unavailable [phone] Javad Donato MD Primary Care Provider [phone] Wednesday, Michelle ARGUETA Unavailable [phone] Encounter Details Date Type Department Care Team (Late st Contact Info) Description 07/07/2023 Abstract [facility] [address] [facility] [address] [place] [phone] Javad Donato MD 112 [facility] 110 [place], [place] [phone] Social History Tobacco Use Types Packs/Day Years [...] week 05/10/2023 How often do you attend [facility] or hindu services? 1 to 4 times per year 05/10/2023 Do you belong to any clubs o r organizations such as zoroastrian groups, unions, fraternal or athletic groups, or [...] Recorded Patient Health Questionnaire-2 Score 0 05/17/2023 [facility] - Occupational Stress [...] place to sleep or slept in a fpc (including now)? No 05/10/2023 Sex and Gender [...] EDT Office Visit [facility] 112 [facility] [address] [place] [phone] Javad Donato MD 112 [facility] [address] [place] [address] 04/30/2025 8:00 AM EST Office Visit [facility] [address] [place] [address] Jose Robins, BALLET SOLOIST [address] [place], [place] [phone] documented as of this encounter Visit Diagnoses Not on filedocumented in this encounter Care Teams Chicken Tender Relationship Specialty Start Date End Date Javad Donato MD [address] [place] [address] [place] [address] PCP - ACO Reach 11/19/22 Javad Donato MD [address] [place] [address] [place] [address] PCP - General Internal Medicine 01/05/23WednesdayMichelle LPN [address] [place] [address] Licensed Practical Nurse Family Medicine 05/08/24 05/16/24 documented as of this encounter
--- OUTSIDE RECORDS SUMMARY | 2024-11-27 10:19 | XMS_ITS | Encounter Summary ---
Author Organization [facility] Address [address] [place] [address] Care Team Providers Care Project Development Manager Name Role Phone Javad Donato MD Unavailable [phone] Javad Donato MD Primary Care Provider [phone] Encounter Details Date Type Department Care Team (Late st Contact Info) Description 06/17/2024 Clinisync Result Encounter [facility] External Department Unsolicited Provider, Generic External Data Social History Tobacco Use Types Packs/Day Years Used Date Smoking Tobacco: Former Cigarettes Q uit: 09/27/1975 Smokeless Tobacco: Never Comments:no way Alcohol Use Standard Drinks/Week Comments Yes 8 (1 standard drink = 0.6 oz pure alcohol) Social drinker with occasional drink at home. Humiliation, Afraid, Rape, and Kick questionnair e [...] How often do you attend chur or baptist services? 1 to 4 times per year 05/10/2023 Do you belong to any clubs o r organizations such as methodist groups, unions, fraternal or athletic groups, or [...] Date Recorded Patient Health Questionnaire-2 Score 0 06/08/2024 [facility] - [...] place to sleep or slept in a half-way (including now)? No 05/10/2023 Sex and Gender [...] Office Visit [facility] 112 [facility] 110 [place] [address] Javad Donato MD 112 [facility] [address] [place] [address] 04/30/2025 8:00 AM EST Office Visit [facility] [address] [place] [address] Jose Robins, YISEL [address] [place] [address] documented as of this encounter Procedures Procedure Name Priority Date/Time Associated Diagnosis Comments XR LUMBAR SPINE 6V W BENDING 06/17/2024 7:57 AM EST documented in this encounter Results * XR LUMBAR SPINE 6V W BENDING (06/17/2024 7:57 AM EST) Anatomical Region Laterality Modality Other 06/17/2024 7:57 AM EST Narrative 06/17/2024 7:59 [place] [address] XRay Report Signed Patient: CANDACE VELA MR#: [id number] : 1955 Acct:[id number] Age/Sex: 69 / M ADM Date: 06/16/24 Loc: [facility] Attending Dr: Yosef Cheema NP Ordering Physician: Yosef Cheema NP Date of Service: 06/16/24 Procedure(s): XR lumbar spine 6V w bending Accession Number(s): [id number] cc: JAVAD DONATO ; Yosef Cheema NP [place] [address] Patient Name: CANDACE VELA MRN: [id number] date: 1955 Sex: M Assigned Patient Location: [facility] Current Patient Location: Accession/Order Number: [id number] Exam Date: 06/16/2024 12:03 Report Date: 06/17/2024 07:57 At the request of: YOSEF CHEEMA Procedure: XR lumbar spine 6V w bending EXAMINATION: XR lumbar spine 6V w bending HISTORY: Lumbar Spondylosis COMPARISON: XR L-spine 04/06/2022 FINDINGS: BONES: Multifocal mild degenerative facet arthropathy. No fracture, spondylolisthesis, or change in alignment during flexion and extension. Stable slight anterior wedging of L2 and L3 vertebral bodies; developmental versus remote compression fractures. Stable sclerosis of contiguous endplates of L3-L4 secondary to degenerative disc disease. DISC SPACES: Mild narrowing L1-L2. Moderate narrowing L3 on 4, L4-L5. Partial lumbarization of S1 (normal variant). PARASPINOUS: Negative. No paraspinous abnormality is seen. OTHER: Negative. XR/XR lumbar spine 6V w bending IMPRESSION: 1. Moderate degenerative changes of lumbar spine; slightly progressed compared to 2021. Electronically authenticated by: JAMES PADILLA Date: 06/17/2024 07:57 Dictated By: James Padilla M.D. Signed By: 06/17/24 0759 DD/ 0757 TD/TT: Distillery Miller Helper: Procedure Note Radiology, Radiologist, MD - 06/17/2024 [place] [address] XRay Report Signed Patient: CANDACE VELA GMR#: [id number] : 1955cct:[id number] Age/Sex: 69 / MADM Date: 06/16/24 Loc: RAD Attending Dr: Yosef Cheema NP Ordering Physician: Yosef Cheema NP Date of Service: 06/16/24 Procedure(s): XR lumbar spine 6V w bending Accession Number(s): [id number] cc: JAVAD DONATO ; Yosef Cheema NP [place] [address] Patient Name: CANDACE VELA MRN: [id number] date: 1955 Sex: M Assigned Patient Location: [facility] Current Patient Location: Accession/Order Number: [id number] Exam Date: 06/16/2024 12:03 Report Date: 06/17/2024 07:57 At the request of: YOSEF CHEEMA Procedure: XR lumbar spine 6V w bending EXAMINATION: XR lumbar spine 6V w bending HISTORY: Lumbar Spondylosis COMPARISON: XR L-spine 04/06/2022 FINDINGS: BONES: Multifocal mild degenerative facet arthropathy. No fracture, spondylolisthesis, or change in alignment during flexion and extension.Stable slight anterior wedging of L2 and L3 vertebral bodies; developmentalversus remote compression fractures. Stable sclerosis of contiguous endplates of L3-L4 secondary to degenerative disc disease. DISC SPACES: Mild narrowing L1-L2. Moderate narrowing L3 on 4, L4-L5.Partial lumbarization of S1 (normal variant). PARASPINOUS: Negative. No paraspinous abnormality is seen. OTHER: Negative. XR/XR lumbar spine 6V w bending IMPRESSION: 1. Moderate degenerative changes of lumbar spine; slightly progressedcompared to 2021. Electronically authenticated by: JAMES PADILLA Date: 06/17/2024 07:57 Dictated By: James Padilla M.D. Signed By:06/17/24 0759 DD/ 0757 TD/TT: Distillery Miller Helper: us Generic External Data Provider [facility] Final Result documented in this encounter Visit Diagnoses Not on filedocumented in this encounter Care Teams Project Development Manager Relationship Specialty Start Date End Date Javad Donato MD [address] [facility] [address] [place] [address] PCP - ACO Reach 11/19/22 Javad Donato MD [address] [facility] [address] [place] [address] PCP - General Internal Medicine 01/05/23 documented as of this encounter
--- OUTSIDE RECORDS SUMMARY | 2024-11-27 10:19 | XMS_ITS | Encounter Summary ---
Author Organization [facility] Address [address] [place] [address] Care Team Providers Care Potato Pancake Frier Name Role Phone Unavailable Primary Care Provider Unavailabl e Source Comments In the event this information is protected by the Federal Confidentiality of Alcohol and Drug AbusePatient Records regulations: The Federal rules restrict any use of the information to criminally investigate or prosecute any alcohol or drug abuse patient.[facility] Encounter Details Date Type Department Care Team (Late st Contact Info) Description 04/13/2023 Get Medical Advice Spine [place] [address] [place] [address] Mercedes Pan PA-C [address] [place] [address] Pain management reports Social History Tobacco Use Types Packs/Day Years Used Date Smoking Tobacco: Never Assessed PHQ-2 Answer Date Recorded PHQ-2 score 1 04/13/2023 Area Deprivation Index Answer Date Jeronimo rded National Score (1-100), lower number is lower ri sk 76 04/13/2023 State Score (1-10), lower number is lower risk 6 04/13/2023 Data from: https://www.neighborhoodatlas.[facility].edu/. Last address used for calculation [address] 04/13/2023 Sex and Gender Information Value Date Recorded Sex Assigned at Male 02/02/2023 1:22 PM EDT Legal Sex Male 10:21 AM EDT Gender Identity Male 02/02/2023 1:22 PM EDT Sexual Orientation Straight 02/02/2023 1: 22 PM EDT documented as of this encounter Plan of Treatment Not on file documented as of this encounter Visit Diagnoses Not on filedocumented in this encounter
--- OUTSIDE RECORDS SUMMARY | 2024-11-27 10:19 | XMS_ITS | Clinical Summary ---
Author Organization [facility] Address [address] [place] [address] Care Team Providers Care Irrigation Teacher Name Role Phone Unavailable Primary Care Provider Unavailabl e Allergies No known active allergies Medications tamsulosin (FLOMAX) 0.4 mg Take 0.4 mg by mouth. 07/29/2022 Active finasteride (PROSCAR) 5 mg tablet Take 5 mg by mouth. 07/29/2022 Active solifenacin 10 mg tablet 1 (one) time each day at the same time. 09/30/2022 Active meloxicam (MOBIC) 7.5 mg tablet Take 7.5 mg by mouth. Active tiZANidine (ZANAFLEX) 4 mg tablet 1 tablet as needed Orally at bedtime for 30 days 04/03/2022 Active Irbesartan-hydr oCHLOROthiazide 150-12.5 mg per tablet Take by mouth. 02/08/2023 Active HYDROcodone-meng taminophen (NORCO) 5-325 mg per tablet Active Social History Tobacco Use Types Packs/Day Years Used Date Smoking Tobacco: Former Cigarettes Tobacco Cessation:Counseling Given: Not Answered PHQ-2 Answer Date Recorded PHQ-2 score 1 04/13/2023 Area Deprivation Index Answer Date Jeronimo rded National Score (1-100), lower number is lower ri sk 76 04/13/2023 State Score (1-10), lower number is lower risk 6 04/13/2023 Data from: https://www.neighborhoodatlas.medicine.[facility]/. Last address used for calculation [address] 04/13/2023 Sex and Gender Information Value Date Recorded Sex Assigned at Male 02/02/2023 1:22 PM EDT Legal Sex Male 10:21 AM EDT Gender Identity Male 02/02/2023 1:22 PM EDT Sexual Orientation Straight 02/02/2023 1: 22 PM EDT Plan of Treatment Health Maintenance Due Date Last Done Comments Abdominal Aortic Aneurysm Screening 1955 Anxiety Screening 01/02/1972 Depression Screening 01/02/1972 Hepatitis C Screening 01/02/1972 DTaP,Tdap,Td Vaccine (1 - Tdap) [address] Colonography 1999 Cologuard (FIT-DNA) 1999 Colonoscopy 1999 Colorectal Cancer Screening 1999 Diabetes Screening 1999 Fecal Occult Blood 1999 Sigmoidoscopy 1999 Shingrix Vaccine (2 of 3) 07/08/2015 05/13/2015 Covid-19 Vaccine (1 - 2023-2 5 season) 2024 Advance Directive Discussion 06/28/2024 Influenza Vaccine (Season Ended) 2025 04/03/2022, 05/21/2020, 04/10/2020, Additional history exists RSV Vaccine (1 - 1-dose 75+ series) 2029 Pneumococcal Vaccine: 50+ Completed 05/21/2020, 11/2018 Insurance MMO MEDICARE SUPPLEMENT MEDICARE
--- OUTSIDE RECORDS SUMMARY | 2024-11-27 10:19 | XMS_ITS | Encounter Summary ---
Author Organization [facility] Address [address] [place] [address] Care Team Providers Care Fruit Express Agent Name Role Phone Javad Donato MD Unavailable [phone] Javad Donato MD Primary Care Provider Wednesday, Michelle ARGUETA Unavailable [phone] Encounter Details Date Type Department Care Team (Late st Contact Info) Description 04/05/2024 Abstract [facility] 110 [place] [address] Javad Donato MD [address] [facility] 110 [place], [place] [id number] Social History Tobacco Use Types Packs/Day Years [...] How often do you attend chur or yazidi services? 1 to 4 times per year 05/10/2023 Do you belong to any clubs o r organizations such as yarsani groups, unions, fraternal [...] Recorded Patient Health Questionnaire-2 Score 0 05/17/2023 [facility] of Occupat ional Health - [...] place to sleep or slept in a residential (including now)? No 05/10/2023 Sex and Gender [...] Visit [facility] [address] [facility] 110 [place] [address] Javad Donato MD [address] [facility] 110 [place] [address] 04/30/2025 8:00 AM EST Office Visit [facility] [address] [place] [address] Jose Robins, COLLISION REPAIRER [address] [place] [address] documented as of this encounter Visit Diagnoses Not on filedocumented in this encounter Care Teams Fruit Express Agent Relationship Specialty Start Date End Date Javad Donato MD [address] [place] [address] [place] [address] PCP - ACO Reach 11/19/22 Javad Donato MD [address] [place] [address] [place] [address] PCP - General Internal Medicine 01/05/23Wednesday, ELLIE Martinez [address] [place] [address] Licensed Practical Nurse Family Medicine 05/08/24 05/16/24 documented as of this encounter
--- OUTSIDE RECORDS SUMMARY | 2024-11-27 10:19 | XMS_ITS | Encounter Summary ---
Author Organization [facility] Address [address] [place] [address] Care Team Providers Care Health And Fitness Instructor Name Role Phone Javad Donato MD Unavailable [phone] Javad Donato MD Primary Care Provider [phone] Wednesday, Michelle ARGUETA Unavailable [phone] Encounter Details Date Type Department Care Team (Late st Contact Info) Description 06/14/2023 Orders Only [facility] [address] [place] [address] [place] [address] A, Unknown Practice [address] [place] [address] Social History Tobacco Use Types Packs/Day Years [...] How often do you attend chur or samaritan services? 1 to 4 times per year 05/10/2023 Do you belong to any clubs o r organizations such as rastafari groups, unions, fraternal or athletic groups, or [...] Recorded Patient Health Questionnaire-2 Score 0 05/17/2023 [facility] of Occupat ional Health - [...] was confirmed or suspected to have Coronavirus/COVID-19? Yes 06/01/2023 10:49 AM EST documented as of this encounter Plan of Treatment Upcoming Encounters Date Type Department Care Team (Late st Contact Info) Description 04/26/2025 9:00 AM EDT Office Visit [facility] 112 [facility] 110 [place] [address] Javad Donato MD 112 [facility] 110 [place], [place] [address] 04/30/2025 8:00 AM EST Office Visit [facility] [address] [place] [address] Jose Robins, RADIOLOGY PHYSICIAN ASSISTANT [place] [address] documented as of this encounter Procedures Procedure Name Priority Date/Time Associated Diagnosis Comments SCANNED LABS Routine 06/08/2023 9:05 AM EST documented in this encounter Results * SCANNED LABS (06/08/2023 9:05 AM EST) us Unknown Practice A LAB CHG PERFORMABLES Final Re sult documented in this encounter Visit Diagnoses Not on filedocumented in this encounter Care Teams Health And Fitness Instructor Relationship Specialty Start Date End Date Javad Donato MD [address] [place] [address] [place] [address] PCP - ACO Reach 11/19/22 Javad Donato MD [address] [place] [address] [place] [address] PCP - General Internal Medicine 01/05/23WednesdayMichelle LPN [address] [place] [address] Licensed Practical Nurse Family Medicine 05/08/24 05/16/24 documented as of this encounter
--- OUTSIDE RECORDS SUMMARY | 2024-11-27 10:19 | XMS_ITS | Encounter Summary ---
Author Organization [facility] Address [address] [place] [address] Care Team Providers Care Tire Assembler Name Role Phone Javad Donato MD Unavailable [phone] Javad Donato MD Primary Care Provider [phone] Reason for Visit * Reason Onset Date Comments Med Refill 11/27/2024 Encounter Details Date Type Department Care Team (Late st Contact Info) Description 11/27/2024 Telephone [facility] 112 [facility] [facility] 110 [place] [address] Javad Donato MD [address] [facility] 110 [place], [place] [id number] Med Refill Social History Tobacco Use Types Packs/Day Years [...] How often do you attend chur or congregation services? 1 to 4 times per year 05/10/2023 Do you belong to any clubs o r organizations such as jain groups, unions, fraternal or athletic groups, or [...] Date Recorded Patient Health Questionnaire-2 Score 0 10/25/2024 [facility] of Occupat ional Health - Occupational Stress [...] place to sleep or slept in a mcc (including now)? No 05/10/2023 Sex and Gender Information Value Date Recorded Sex Assigned at Male 05/10/2023 10:38 AM EST Legal Sex Male 8:11 PM EDT Gender Identity Male 05/10/2023 10:38 AM EST Sexual Orientation Straight 05/10/2023 10 :38 AM EST documented as of this encounter Miscellaneous Notes * Telephone Encounter - DESIRAE HEIN - 11/27/2024 9:24 AM EDT Patient will need an appointment * Telephone Encounter - Priscilla Cameron - 11/27/2024 8:18 AM EDT Prednisone 20 mg for a skin irritation. He said that he usually gets this medication. Clotrimazole - betamethasone cream for althetes foot He said he hasn't had these meds in a while and didn't know if he would need an appointment or not Rashaun callahan desmet documented in this encounter Plan of Treatment Upcoming Encounters Date Type Department Care Team (Late st Contact Info) Description 04/26/2025 9:00 AM EDT Office Visit [facility] [address] [facility] 110 [place] [address] Javad Donato MD [address] [facility] 110 [place] [address] 04/30/2025 8:00 AM EST Office Visit [facility] [address] [place] [phone] Jose Robins, ELEMENTARY ART TEACHER [address] [facility], [place] [phone] documented as of this encounter Visit Diagnoses Not on filedocumented in this encounter Care Teams Tire Assembler Relationship Specialty Start Date End Date Javad Donato MD [address] [facility] 110 [place] [address] PCP - ACO Reach 11/19/22 Javad Donato MD [address] [facility] 110 [place] [address] PCP - General Internal Medicine 01/05/23 documented as of this encounter
--- OUTSIDE RECORDS SUMMARY | 2024-11-27 10:19 | XMS_ITS | Encounter Summary ---
Author Organization [facility] Address [address] [place] [address] Care Team Providers Care Forge Operator Helper Name Role Phone Javad Donato MD Unavailable [phone] Javad Donato MD Primary Care Provider [phone] Wednesday, Michelle ARGUETA Unavailable [phone] Reason for Referral * Rehabilitation - Outpatient (Routine) - Closed Specialty Diagnoses / Procedures Referred By Rayrya barkley Referred To Contact Physical Therapy Diagnoses Arthritis of left hip Procedures [facility] OFFICE/OUTPATIENT [facility] 60 MINUTES Jose Robins NP [address] [place] [address] Phone: tel: fax: [facility] [address] [place] [address] Phone: tel: fax: Referral ID Status Reason Start Date Expiration Date V isits Requested Visits Authorized [id number] Closed Specialty Services Required 05/03/2024 06/27/2024 1 1 Encounter Details Date Type Department Care Team (Late st Contact Info) Description 05/03/2024 Orders Only [facility] [address] [place] [address] Jose Robins NP [address] [place], [place] [phone] Arthritis of left hip (Primary Dx) Social History Tobacco Use Types Packs/Day Years [...] 05/10/2023 How often do you attend chur ch or orthodox services? 1 to 4 times per year 05/10/2023 Do you belong to any clubs o r organizations such as holiness groups, unions, fraternal or athletic groups, or [...] Recorded Patient Health Questionnaire-2 Score 0 05/17/2023 [facility] of Occupat ional [facility] - Occupational Stress Questionnaire Answer Date Recorded [...] CI FM [address] [place] [address] [place] [address] Javad Donato MD [address] [place] [address] [place] [address] 04/30/2025 8:00 AM EST Office Visit [facility] [address] [place] [phone] Jose Robins, INTERACTIVE WEB DEVELOPER [address] [facility], [place] [phone] Scheduled Referrals Name Type Priority Associated Diagnoses Order Schedule Ambulatory referral to Physical Therapy Outpatient Referral Routine Arthritis of left hip Expected: 05/03/2024 (Approximate), Expires: 10/31/2024 documented as of this encounter Visit Diagnoses Diagnosis Arthritis of left hip- Primary documented in this encounter Care Teams Forge Operator Helper Relationship Specialty Start Date End Date Javad Donato MD [address] [facility] 110 [place] [address] PCP - ACO Reach 11/19/22 Javad Donato MD [address] [place] [address] [place] [address] PCP - General Internal Medicine 01/05/23WednesdayMichelle LPN [address] [place] [address] Licensed Practical Nurse Family Medicine 05/08/24 05/16/24 documented as of this encounter
--- OUTSIDE RECORDS SUMMARY | 2024-11-27 10:19 | XMS_ITS | Encounter Summary ---
Author Organization [facility] Address [address] [place] [address] Care Team Providers Care Apron Operator Name Role Phone Javad Donato MD Unavailable [phone] Javad oDnato MD Primary Care Provider Wednesday, Michelle ARGUETA Unavailable [phone] Encounter Details Date Type Department Care Team (Late st Contact Info) Description 07/05/2023 Abstract [facility] [address] [facility] 110 [place] [address] Javad Donato MD 112 [facility] 110 [place], [place] [address] Social History Tobacco Use Types Packs/Day Years [...] week 05/10/2023 How often do you attend [facility] or christianity services? 1 to 4 times per year 05/10/2023 Do you belong to any clubs o r organizations such as anabaptism groups, unions, fraternal or athletic groups, or [...] Recorded Patient Health Questionnaire-2 Score 0 05/17/2023 [facility] of Occupat ional Health - Occupational [...] place to sleep or slept in a custodial (including now)? No 05/10/2023 Sex and Gender [...] EDT Office Visit [facility] 112 [facility] 110 [place] [address] Javad Donato MD 112 [facility] 110 [place] [address] 04/30/2025 8:00 AM EST Office Visit [facility] [address] [place] [address] Jose Robins, MANAGER ENVIRONMENTAL HEALTH AND SAFETY [address] [place], [place] [address] documented as of this encounter Visit Diagnoses Not on filedocumented in this encounter Care Teams Apron Operator Relationship Specialty Start Date End Date Javad Donato MD [address] [place] [address] [place] [address] PCP - ACO Reach 11/19/22 Javad Donato MD [address] [place] [address] [place] [address] PCP - General Internal Medicine 01/05/23WednesdayMichelle LPN [address] [place] [address] Licensed Practical Nurse Family Medicine 05/08/24 05/16/24 documented as of this encounter
--- OUTSIDE RECORDS SUMMARY | 2024-11-27 10:19 | XMS_ITS | Encounter Summary ---
Author Organization [facility] Address [address] [place] [address] Care Team Providers Care Bit Bender Name Role Phone Javad Donato MD Unavailable [phone] Javad Donato MD Primary Care Provider [phone] Encounter Details Date Type Department Care Team (Late st Contact Info) Description 06/15/2024 Abstract [facility] [address] [facility] 110 [place] [address] Javad Donato MD [address] [facility] 110 [place], [place] [address] Social History Tobacco Use Types Packs/Day Years [...] How often do you attend chur or buddhist services? 1 to 4 times per year 05/10/2023 Do you belong to any clubs o r organizations such as mormonism groups, unions, fraternal or athletic groups, or [...] Recorded Patient Health Questionnaire-2 Score 0 06/08/2024 [facility] of Occupat ionri Health - Occupational Stress Questionnaire Answer Date [...] place to sleep or slept in a halfway (including now)? No 05/10/2023 Sex and Gender [...] 04/26/2025 9:00 AM EDT Office Visit [facility] [address] [facility] 110 [place] [address] Javad Donato MD [address] [facility] 110 [place] [address] 04/30/2025 8:00 AM EST Office Visit [facility] [address] [place] [address] Jose Robins, YISEL [address] [place], [place] [address] documented as of this encounter Visit Diagnoses Not on filedocumented in this encounter Care Teams Bit Bender Relationship Specialty Start Date End Date Javad Donato MD [address] [facility] 110 [place] [address] PCP - ACO Reach 11/19/22 Javad Donato MD [address] [facility] 110 [place] [address] PCP - General Internal Medicine 01/05/23 documented as of this encounter
--- OUTSIDE RECORDS SUMMARY | 2024-11-27 10:19 | XMS_ITS | Encounter Summary ---
Author Organization [facility] Address [address] [place] [address] Care Team Providers Care Mud Grinder Name Role Phone Javad Donato MD Unavailable [phone] Javad Donato MD Primary Care Provider [phone] Wednesday, Michelle ARGUETA Unavailable [phone] Encounter Details Date Type Department Care Team (Late st Contact Info) Description 06/29/2023 Orders Only [facility] [address] [facility] [address] [place] [address] A, Unknown Practice 1300 [place] [address] Social History Tobacco Use Types [...] How often do you attend chur or evangelical services? 1 to 4 times per year 05/10/2023 Do you belong to any clubs o r organizations such as alevism groups, unions, fraternal or athletic groups, or [...] Recorded Patient Health Questionnaire-2 Score 0 05/17/2023 [facility] of Occupat ional Health - Occupational Stress [...] place to sleep or slept in a correction (including now)? No 05/10/2023 Sex and Gender [...] EDT Office Visit [facility] 112 [facility] 110 [place] [address] Javad Donato MD 112 [facility] 110 [place], [place] [address] 04/30/2025 8:00 AM EST Office Visit [facility] [address] [place] [address] Jose Robins, MACHINING DEPARTMENT SUPERVISOR [address] [place] [address] documented as of this encounter Procedures Procedure Name Priority Date/Time Associated Diagnosis Comments XR FINGERS 2+ VIEWS LEFT Routine 06/26/2023 11:29 AM EST documented in this encounter Results * XR fingers 2+ views left (06/26/2023 11:29 AM EST) Anatomical Region Laterality Modality Upper Extremities, Fingers Left Radio graphic Imaging us Unknown Practice A IMG XR PROCEDURES Final Resul t documented in this encounter Visit Diagnoses Not on filedocumented in this encounter Care Teams Mud Grinder Relationship Specialty Start Date End Date Javad Donato MD [address] [place] [address] [place] [address] PCP - ACO Reach 11/19/22 Javad Donato MD [address] [place] [address] [place] [address] PCP - General Internal Medicine 01/05/23Wednesday, ELLIE Martinez [address] [place] [address] Licensed Practical Nurse Family Medicine 05/08/24 05/16/24 documented as of this encounter
--- OUTSIDE RECORDS SUMMARY | 2024-11-27 10:19 | XMS_ITS | Encounter Summary ---
Author Organization [facility] Address [address] [place] [address] Care Team Providers Care Slurry Control Operator Helper Name Role Phone Javad Donato MD Unavailable [phone] Javad Donato MD Primary Care Provider Wednesday, Michelle ARGUETA Unavailable [phone] Encounter Details Date Type Department Care Team (Late st Contact Info) Description 06/29/2023 Abstract [facility] [address] [facility] 110 [place] [address] Javad Donato MD 112 [facility] 110 [place], [place] [address] Social History Tobacco Use Types Packs/Day Years [...] week 05/10/2023 How often do you attend [facility] or druze services? 1 to 4 times per year 05/10/2023 Do you belong to any clubs o r organizations such as confucianist groups, unions, fraternal [...] Recorded Patient Health Questionnaire-2 Score 0 05/17/2023 [facility] of Occupat ional Health - Occupational [...] 04/26/2025 9:00 AM EDT Office Visit [facility] [address] [facility] 110 [place] [address] Javad Donato MD [address] [facility] 110 [place] [address] 04/30/2025 8:00 AM EST Office Visit [facility] [place] [address] Jose Robins, FIRE OPERATIONS FORESTER [address] [place] [address] documented as of this encounter Visit Diagnoses Not on filedocumented in this encounter Care Teams Slurry Control Operator Helper Relationship Specialty Start Date End Date Javad Donato MD [address] [place] [address] [place] [address] PCP - ACO Reach 11/19/22 Javad Donato MD [address] [place] [address] [place] [address] PCP - General Internal Medicine 01/05/23Wednesday, ELLIE Martinez [address] [place] [address] Licensed Practical Nurse Family Medicine 05/08/24 05/16/24 documented as of this encounter
--- OUTSIDE RECORDS SUMMARY | 2024-11-27 10:19 | XMS_ITS | Clinical Summary ---
Author Organization [facility] Address [address] [place] [address] Care Team Providers Care Pig Machine Operator Name Role Phone Javad Donato MD Unavailable [phone] Javad Donato MD Primary Care Provider [phone] Allergies Active Allergy Reactions Criticality Noted Date Comments Carvedilol 06/29/2022 Other Reaction(s): dizziness Medications ascorbic acid (Vitamin C) 500 MG chewable tablet 1 (one) time each day at the same time. Active B Complex Vitamins (vitamin B complex) tablet as directed Orally Active cholecalciferol (Vitamin D3) 25 MCG (1000 UT) tablet 1 (one) time each day at the same time. Active cyanocobalamin (Vitamin B-12) 100 MCG tablet as directed Orally Active finasteride (Proscar) 5 MG tablet Take 5 mg by mouth in the morning. 10/22/19 23 Active Multiple Vitamin (Multi Vitamin) tablet 1 (one) time each day at the same time. Active sildenafil (Viagra) 100 MG tablet 1 (one) time each day at the same time. Active solifenacin (VESIcare) 10 MG tablet 1 (one) time each day at the same time. Active tamsulosin (Flomax) 0.4 MG 24 hr capsule Take 0.4 mg by mouth in the morning and 0.4 mg before bedtime. 08/21/19 23 Active zinc gluconate 50 MG tablet 1 (one) time each day at the same time. Active meloxicam (Mobic) 15 MG tabletIndications:P rimary osteoarthritis of first carpometacarpal joint of left hand Take 1 tablet (15 mg) by mouth Daily Take with food 100 tablet 3 12/07/19 24 Active magnesium 30 MG tablet Take 30 mg by mouth in the morning and 30 mg before bedtime. Active irbesartan-hydroCHL OROthiazide (Avalide) 150-12.5 MG tabletIndications:B enign essential hypertension (CMS/HCC) Take 1 tablet by mouth Daily 100 tablet 3 06/23/20 24 Active HYDROcodone-acetami nophen (Quinton) 5-325 MG tabletIndications:H erniated lumbar disc without myelopathy Take 1 tablet by mouth every 6 (six) hours if needed for severe pain 40 tablet 10/26/19 25 Active tiZANidine (Zanaflex) 4 MG tabletIndications:H erniated lumbar disc without myelopathy Take 1 tablet (4 mg) by mouth Daily 30 tablet 2 11/10/19 25 Active tiZANidine (Zanaflex) 4 MG tabletIndications:H erniated lumbar disc without myelopathy Take 1 tablet (4 mg) by mouth Daily 30 tablet 2 05/24/20 24 025 Discontin ued(Reord er) Active Problems Problem Noted Date Diagnosed Date Left hip pain 06/20/2024 S/P total left hip arthroplasty 06/20/2024 Primary osteoarthritis of left hip 01/21/2024 Class 2 severe obesity with serious comorbidity and body mass index (BMI) of 37.0 to 37.9 in adult 01/21/2024 Ganglion cyst of volar aspect of left wrist 12/27 Atherosclerosis of aorta 01/21/2024 Body mass index (BMI) 37.0-37.9, adult Myalgia 08/04/2023 Right hip pain 07/29/2023 Status post total hip replacement, right 024 IGT (impaired glucose tolerance) 06/30/2023 Primary osteoarthritis of right hip 05/17/2023 Allergic rhinitis 01/11/2023 Benign essential hypertension 01/11/2023 Benign prostatic hyperplasia with lower urinary tract symptoms 01/11/2023 Carpal tunnel syndrome of right wrist 01/11/2023 Daytime somnolence 01/11/2023 Degenerative disc disease, cervical 01/11/2023 Gastroesophageal reflux disease without esophagi tis 01/11/2023 Herniated lumbar disc without myelopathy 023 Lumbago with sciatica, left side 01/11/2023 Other chronic pain 01/11/2023 Other obstructive and reflux uropathy 01/11/2023 Primary osteoarthritis of fi rst carpometacarpal joint of left hand 01/11/2023 Snoring 01/11/2023 Umbilical hernia without obstruction and without gangrene 01/11/2023 Resolved Problems Problem Noted Date Diagnosed Date Resolved Date Elevated blood pressure read ing in office with diagnosis of hypertension 01/11/2023 4 Encounters Date Type Department Care Team Description 11/27/2024 Telephone [facility] [address] [place] [address] [place] [phone] Javad Donato MD Med Refill 11/09/2024 Refill [facility] [address] [place] [address] [place] [phone] France Farah LPN Herniated lumbar disc without myelopathy 10/30/2024 8:00 AM EDT Ancillary Procedure [facility] [address] [place] [address] 10/30/2024 8:00 AM EDT Office Visit [facility] [place] [address] Jose Robins NP S/P total left hip arthroplasty (Primary Dx); Left hip pain 10/30/2024 Bamboo flowsheet [facility] [address] [place] [address] Jose Robins NP 10/30/2024 Travel 10/25/2024 10:45 AM EDT Office Visit [facility] [address] [facility] [address] [place] [address] Javad Donato MD Herniated lumbar disc without myelopathy; IGT (impaired glucose tolerance); Class 2 severe obesity with serious comorbidity and body mass index (BMI) of 37.0 to 37.9 in adult, unspecified obesity type (CMS/HCC); Morbid (severe) obesity due to excess calories (CMS/HCC); Essential (primary) hypertension ([facility]); Body mass index (BMI) 38.0-38.9, adult 10/25/2024 Bamboo flowsheet [facility] [address] [facility] [address] [place] [phone] Javad Donato MD 10/25/2024 Travel 09/21/2024 Telephone [facility] [address] [facility] [address] [place] [address] Javad Donato MD from Last 3 Months Immunizations Immunization Administration Dates Next Due Influenza, High Dose Seasona l, Preservative Free 04/03/2022 Influenza, High-dose Seasona l, Quadrivalent, Preservative Free 06/14/2024,05/17/2023,04/03/2022 Influenza, Injectable, MDCK, preservative free 05/03/2019 Influenza, injectable, quadrivalent 05/21/2020,1 08/08/2016 Influenza, seasonal, intrade rmal, preservative free 05/02/2018 Pneumococcal Conjugate PCV 13 05/21/2020 Pneumococcal Polysaccharide PPSV23 05/03/2019, RSV, recombinant, protein coronado bunit RSVpreF, adjuvant reconstitu, 120mcg/0.5mL, PF (Arexvy) 05/18/2023 Tdap 05/18/2023 Zoster, live 05/13/2015 Family History Medical History Relation Name Comments Hypertension Father Cancer Mother Pamela Sosa Relation Name Status Comments Father Mother Pamela Sosa Social History Tobacco Use Types Packs/Day Years Used Date Smoking Tobacco: Former Cigarettes Q uit: 09/27/1975 Smokeless Tobacco: Never Tobacco Cessation:Counseling Given: Not Answered Comments:no way Alcohol Use Standard Drinks/Week Comments [...] How often do you attend chur or anabaptist services? 1 to 4 times per year 05/10/2023 Do you belong to any clubs o r organizations such as christian groups, unions, fraternal or athletic groups, or [...] Recorded Patient Health Questionnaire-2 Score 0 10/25/2024 [facility] of Occupat ional Health - Occupational Stress [...] Orientation Straight 05/10/2023 10 :38 AM EST Last Filed Vital Signs Vital Sign Reading Time Taken Comments Blood Pressure 130/76 10/25/2024 10:57 AM EDT Pulse 82 10/25/2024 10:57 AM EDT Temperature 36.4 C (97.5 F) 07/27/2024 10:26 AM EST Respiratory Rate 18 07/27/2024 10:26 AM EST Oxygen Saturation 95% 10/25/2024 10:57 AM EDT Inhaled Oxygen Concentration - - Weight 132 kg (292 lb) 10/25/2024 10:57 AM EDT Height 185.4 cm (6' 1 ) 10/25/2024 10:57 AM EDT Body Mass Index 38.52 10/25/2024 10:57 AM EDT Plan of Treatment Upcoming Encounters Date Type Department Care Team (Late st Contact Info) Description 04/26/2025 9:00 AM EDT Office Visit [facility] [address] [place] [phone] Javad Donato MD 112 [facility] [address] [place] [address] 04/30/2025 8:00 AM EST [facility] Visit [facility] [address] [facility] [place] [place] [phone] Jose Robins, LEVEL VIAL SEALER [address] [place] [address] Health Maintenance Due Date Last Done Comments CT Colonography 1954 FIT-DNA 1954 FIT 1954 FOBT 1954 Sigmoidoscopy 1954 Medicare Annual Wellness (AWV) 06/14/2025 1 08/15/2023, 05/17/2023, 05/11/2022 Colonoscopy 07/12/2027 07/12/2017 Colorectal Cancer Screening 07/12/2027 Pneumococcal Vaccine: 65+ Years Completed 05/21/2020, 05/03/2019, 05/03/2019 Influenza Vaccine Completed 06/14/2024, , 04/03/2022, Additional history exists Procedures Procedure Name Priority Date/Time Associated Diagnosis Comments XR HIP 2 OR 3 VW LEFT Routine 10/30/2024 7:51 AM EDT Left hip pain POCT GLYCATED HEMOGLOBIN, TOTAL Routine 10/25/2024 12:42 PM EDT IGT (impaired glucose tolerance) Class 2 severe obesity with serious comorbidity and body mass index (BMI) of 37.0 to 37.9 in adult, unspecified obesity type (CMS/HCC) COLONOSCOPY Routine 07/12/2017 12:00 PM EST from Last 3 Months or Most Recently Relevant to Health Maintenance Results * XR hip left 2 or 3 views (10/30/2024 7:51 AM EDT) Anatomical Region Laterality Modality Lower Extremities, Hip Left Radiograp hic Imaging Narrative 10/30/2024 8:38 AM EDT Imaging Result: 10/30/2024: : AP and lateral [...] Impression: Unremarkable left total hip arthroplasty. Jose Robins GUIDE RAIL CLEANER-RUBBER AND POUNDER Jose Robins LEVEL VIAL SEALER IMG XR PROCEDURES Final Result * POCT Glycated hemoglobin, total (10/25/2024 12:42 PM EDT) Pathologist [facility] Hemoglobin A1C 5.8 Blood 10/25/2024 12:4 2 PM EDT Javad Donato MD POINT OF CARE TEST ENTER/EDIT ORDERABLES Final Result * Colonoscopy (07/12/2017 12:00 PM EST) Anatomical Region Laterality Modality Endoscopy 07/12/2017 12:0 0 PM EST Narrative 07/12/2017 12:00 PM EST PERFORMED AT [facility] LOCATION:[id number] internal hemorrhoids, diverticulosis Procedure Note CONVERSION, GENERIC - 11/11/2022 PERFORMED AT [facility] LOCATION:[id number] internal hemorrhoids, diverticulosis Javad Donato MD ENDOSCOPY PROCEDURE ORDERABLES Final Result from Last 3 Months or Most Recently Relevant to Health Maintenance Insurance MEDICARE [employer] Care Teams Pig Machine Operator Relationship Specialty Start Date End Date Javad Donato MD [address] [facility] [address] [place] [address] PCP - ACO Reach 11/19/22 Javad Donato MD [address] [facility] [address] [place] [address] PCP - General Internal Medicine 01/05/23
--- OUTSIDE RECORDS SUMMARY | 2024-11-27 10:19 | XMS_ITS | Encounter Summary ---
Author Organization [facility] Address [address] [place] [address] Care Team Providers Care Public Relations Account Supervisor Name Role Phone Javad Donato MD Unavailable [phone] Javad Donato MD Primary Care Provider Wednesday, Michelle ARGUETA Unavailable [phone] Encounter Details Date Type Department Care Team (Late st Contact Info) Description 07/07/2023 Abstract [facility] [address] [facility] [address] [place] [phone] Javad Donato MD 112 [facility] [address] [place], [place] [phone] Social History Tobacco Use Types Packs/Day Years [...] How often do you attend [facility] or gnosticist services? 1 to 4 times per year 05/10/2023 Do you belong to any clubs o r organizations such as quaker groups, unions, fraternal or athletic groups, or [...] Patient Health Questionnaire-2 Score 0 05/17/2023 [facility] of Occupat ional Health - Occupational Stress [...] place to sleep or slept in a [place] health care facility (including now)? No 05/10/2023 Sex and Gender [...] EDT Office Visit [facility] [address] [facility] [address] [place] [phone] Javad Donato MD 112 [facility] [address] [place] [address] 04/30/2025 8:00 AM EST Office Visit [facility] [address] [place] [address] Jose Robins, SYSTEMS TEST TECHNICIAN [address] [place], [place] [phone] documented as of this encounter Visit Diagnoses Not on filedocumented in this encounter Care Teams Public Relations Account Supervisor Relationship Specialty Start Date End Date Javad Donato MD [address] [place] [address] [place] [address] PCP - ACO Reach 11/19/22 Javad Donato MD [address] [place] [address] [place] [address] PCP - General Internal Medicine 01/05/23WednesdayMichelle LPN [address] [place] [address] Licensed Practical Nurse Family Medicine 05/08/24 05/16/24 documented as of this encounter
[2024-11-27 11:02] VITALS: BP 127/79; PULSE 87; TEMP 36.8; O2SAT 95
[2024-11-27 11:03] LABS: Glucometer 93 mg/dL (74-106)
[2024-11-27 11:30] VITALS: PULSE 87; O2SAT 94
[2024-11-27 11:31] VITALS: BP 147/86; PULSE 87; O2SAT 94
--- NOTE | 2024-11-27 11:31 | W.PM.PROCNOT ---
Date of procedure: 11/27/24 Pre-op diagnosis: Pain due to left sacroiliitis Post-op diagnosis: same as pre-op Procedure: Procedure: Left block of the nerve innervating the sacroiliac joint Medications: Bupivacaine 0.25% 3cc, depomedrol 40mg After informed consent was obtained, the patient was brought to the medical procedure unit and placed in the prone position, when a timeout was completed verifying correct patient, procedure, site, positioning, implant, and/or special equipment.? The skin overlying the area was prepped and draped in standard sterile fashion using alcohol.? A 25-gauge needle was inserted towards the superior gluteal nerve innervating the left sacroiliac joint under direct fluoroscopic imaging.? Needle tip was advanced until the nerve was encountered.? We instilled a total of 0.5 mL of solution. Subsequently, the dorsal rami of L5, S1, and S2 were approached, and the procedure completed in the same fashion.? Postoperatively needles were removed.? The patient tolerated the procedure well without complication.? The patient reported reduction in pain symptoms postoperatively. Anesthesia: Local Surgeon: Lidia Fletcher Pathology: none sent Condition: stable Disposition: no change
[2024-11-27] MEDS: IOHEXOL 240 MG/ML - 10 ML VIAL 24 MG INJ (11:33)
[2024-11-27] MEDS: BUPIVACAINE HCL 0.25% PF 25 MG/10 ML VIAL 2 ML INJ (11:33)
[2024-11-27] MEDS: LIDOCAINE HCL 2% 400 MG/20 ML MDV INJ (11:33)
[2024-11-27] MEDS: METHYLPREDNISOLONE ACETATE 40 MG/ML VIAL INJ (11:33)
[2024-11-27 11:34] VITALS: BP 133/64
== END 2024-11-27 11:37 | disposition home or self-care (01) ==
LOC: SURGOUT 10:17
PROVIDERS: PCP Internal Medicine; Visit Provider Anesthesiology
DX: M53.3 Sacrococcygeal disorders, not elsewhere classified (principal); M46.1 Sacroiliitis, not elsewhere classified; E11.8 Type 2 diabetes mellitus with unspecified complications
CPT/HCPCS: 36415; 64451; 82948; J0665; J1010; Q9966

== ENCOUNTER 2024-12-07 07:25 | Outpatient (OUT) | payer MEDICARE, OTHER, SELFPAY ==
--- OUTSIDE RECORDS SUMMARY | 2024-11-29 11:30 | XMS_ITS | Encounter Summary ---
Author Organization [facility] Address [address] [place] [address] Care Team Providers Care Behavioral Health Director Name Role Phone Javad Donato MD Unavailable [phone] Javad Donato MD Primary Care Provider [phone] Reason for Visit * Reason Comments Tinea Pedis Has had it off/on fo r 15 years, bilateral feet, he uses clotrimazole and betamethasone cream and it helps. Med Refill Amoxicillin (has den nick procedure in December) and has had hip replacement in past, clotrimazole-betamethazone Back Pain He is currently on H ydrocodone as needed and working well for him. Encounter Details Date Type Department Care Team (Late st Contact Info) Description 11/29/2024 11:30 AM EDT Office Visit [facility] 112 [facility] 110 [place] [address] Alma Akins PA 112 [facility] 110 [place], [place] [id number] Herniated lumbar disc without myelopathy (Primary Dx); Benign essential hypertension ; S/P total left hip arthroplasty; Tinea pedis of both feet; Skin irritation; Open wound of left lower leg, initial encounter; Class 2 severe obesity due to excess calories with serious comorbidity and body mass index (BMI) of 38.0 to 38.9 in adult (CMS-HCC); Umbilical hernia without obstruction and without gangrene; Status post right hip replacement Social History Tobacco Use Types Packs/Day Years [...] often do you attend chur ch or religion services? 1 to 4 times per year 05/10/2023 Do you belong to any clubs o r organizations such as sabianism groups, unions, fraternal or athletic groups, or [...] Date Recorded Patient Health Questionnaire-2 Score 0 11/29/2024 [facility] of Occupat ional Health - Occupational Stress [...] place to sleep or slept in a jail (including now)? No 05/10/2023 Sex and Gender Information Value Date Recorded Sex Assigned at Male 05/10/2023 10:38 AM EST Legal Sex Male 8:11 PM EDT Gender Identity Male 05/10/2023 10:38 AM EST Sexual Orientation Straight 05/10/2023 10 :38 AM EST documented as of this encounter Last Filed Vital Signs Vital Sign Reading Time Taken Comments Blood Pressure 136/80 11/29/2024 11:33 AM EDT Pulse 81 11/29/2024 11:33 AM EDT Temperature - - Respiratory Rate 16 11/29/2024 11:33 AM EDT Oxygen Saturation 96% 11/29/2024 11:33 AM EDT Inhaled Oxygen Concentration - - Weight 132 kg (291 lb) 11/29/2024 11:33 AM EDT Height 185.4 cm (6' 1 ) 11/29/2024 11:33 AM EDT Body Mass Index 38.39 11/29/2024 11:33 AM EDT documented in this encounter Functional Status * Over the past 2 weeks, how often have you been bothered by any of the following problems? Question Answer Date of Assessment Author Little interest or pleasure in doing things Not at all 11/29/2024 11:19 AM EDT Tere Cannon L PN Feeling down, depressed, or hopeless Not at all 11/29/2024 11:19 AM EDT Tere Cannon L PN Patient Health Questionnaire -2 Score 0 11/29/2024 11:19 AM EDT Tere Cannon L PN documented as of this encounter Progress Notes * MARY Mcarthur - 11/29/2024 11:30 AM EDT Images from the original note were not included. HPI Tinea Pedis Additional comments: Has had it off/on for 15 years, bilateral feet, he uses clotrimazole and betamethasone cream and it helps. Med Refill Additional comments: Amoxicillin (has dental procedure in December) and has had hip replacement in past, clotrimazole-betamethazone Back Pain Additional comments: He is currently on Hydrocodone as needed and working well for him. Last edited by Tere Cannon LPN on 11/29/2024 11:33 AM. Subjective Patient ID: Lawson Vela is a 69 y.o. male who presents for a rash. Lawson is present today for evaluation of rash. Admits that his last PCP advised him that he has a fungus (skin irritation) on his left armpit, neck, shoulder, pt thinks from being hot, it is itchy andworse at night. Prednisone does help. No rash but does itch. Left lower leg with puncture wound about a week ago. Took the Amoxicillin he had because it startedto look infected. Admits he is in the sun a lot and does not use sunscreen. Current Outpatient Medications on File Prior to Visit Medication Sig Dispense Refill tiZANidine (Zanaflex) 4 MG tablet Take 1 tablet (4 mg) by mouth Daily (Patient taking differently: Take 4 mg by mouth Daily PRN) 30 tablet 2 [DISCONTINUED] clotrimazole-betamethasone (Lotrisone) cream Apply 1 application topically in the morning and 1 application before bedtime. ascorbic acid (Vitamin C) 500 MG chewable [...] mg by mouth in the morning. HYDROcodone-acetaminophen ([place]) 5-325 MG tablet Take 1 tablet by mouth every 6 (six) hours if needed for severe pain 40 tablet 0 irbesartan-hydroCHLOROthiazide (Avalide) 150-12.5 MG tablet Take 1 tablet by mouth Daily 100 tablet3 magnesium 30 MG tablet Take 30 mg [...] Types: Cigarettes Quit date: 09/27/1975 Years since quittin.2 Smokeless tobacco: Never Tobacco comments: no way [...] Dr Blair VASECTOMY 2010 Visit Vitals BP 136/80 Pulse 81 Resp 16 Ht 6' 1 Wt 291 lb SpO2 96% BMI 38.39 kg/m?? Smoking Status Former BSA 2.61 m?? Review of Systems Constitutional: Negative for chills, fatigue and fever. Respiratory: Negative for cough, shortness of breath and wheezing. Cardiovascular: Negative for chest pain, palpitations and leg swelling. Gastrointestinal: Negative for abdominal pain, constipation, diarrhea, nausea and vomiting. Hernia Skin: Positive for color change, rash and wound. Itching Objective Physical Exam Constitutional: General: He is not in acute distress. Appearance: Normal appearance. HENT: Head: Normocephalic and atraumatic. Eyes: General: No scleral icterus. Cardiovascular: Rate and Rhythm: Normal rate and regular rhythm. Heart sounds: No murmur heard. Pulmonary: Effort: Pulmonary effort is normal. No respiratory distress. Breath sounds: Normal breath sounds. No wheezing, rhonchi or rales. Abdominal: General: Abdomen is protuberant. Hernia: A hernia is present. Hernia is present in the umbilical area. Musculoskeletal: General: No swelling. Skin: General: Skin is warm and dry. Comments: Left lower leg anterior aspect with circular healing superficial wound, no drainage - Seephoto. Left foot, skin between 4th and 5th toes is hyperpigmented - See photo. Right anterior shoulder with patch of erythema, pruritic for pt - See photo. Patient does have diffuse sunburn of face, neck, torso, arms. Neurological: General: No focal deficit present. Mental Status: He is alert and oriented to person, place, and time. Psychiatric: Mood and Affect: Mood normal. Behavior: Behavior normal. Assessment/Plan Diagnoses and all orders for this visit: Herniated lumbar disc without myelopathy Medication choice and dosage is appropriate for patient's current medical conditions. Patient will continue to be required to be seen in our office at least every three months for monitoring. At eachfollow up visit I will reassess the patient's need for the medication. Patient is to have this medication prescribed only through this office. Failure to follow the rules and regulations will result in tapering and discontinuation of medications if applicable. Patient verbalized understanding. OARRS Report was reviewed for this patient. Benign essential hypertension ([facility]) Patient's blood pressure is currently stable. Continue with current medications and I will continueto monitor. Goal BP remains less than 130/80. S/P total left hip arthroplasty Amoxicillin provided for pt to have prior to dental procedures. Tinea pedis of both feet - clotrimazole-betamethasone (Lotrisone) cream; Apply 1 application topically in the morning and 1 application before bedtime. Can use the above as needed. Advised he should still follow up with Dr. Tomas for his left foot. Skin irritation - predniSONE (Deltasone) 10 MG tablet; Take 1 tablet (10 mg) by mouth 3 (three) times a day for 3 days, THEN 1 tablet (10 mg) 2 (two) times a day for 3 days, THEN 1 tablet (10 mg) Daily for 3 days. Encouraged pt to follow up with Dr. Omari Tomas, his [employer], for further evaluation ofthe skin between the toes on his left foot. Prednisone as prescribed, helps pt with the rash he develops near his armpits. Take with food. Open wound of left lower leg, initial encounter Continue OTC topical antibiotic cream as needed. No signs of infection at this time. Class 2 severe obesity due to excess calories with serious comorbidity and body mass index (BMI) of38.0 to 38.9 in adult ([facility]) Encouraged portion control, decrease simple sugars and carbohydrates, gradually increase activity level. Aim for gradual steady weight loss. Umbilical hernia without obstruction and without gangrene Advised if risks of repair. Only painful if it gets bumped. No problems with BM's. Encouraged gradual weight loss as it will likely help the area be less tender, and would improve outcome if he ends up having to have surgery. Status post right hip replacement - amoxicillin (Amoxil) 500 MG tablet; 4 tabs PO once 30-60 mins before procedure with food Amoxicillin provided for pt to have prior to dental procedures. Follow up for Appointment As Scheduled. documented in this encounter Plan of Treatment Upcoming Encounters Date Type Department Care Team (Late st Contact Info) Description 04/26/2025 9:00 AM EDT Office Visit [facility] [address] [address] Javad Donato MD 112 [facility] 110 [place] [address] 04/30/2025 8:00 AM EST Office Visit [facility] [address] [facility] [place] [address] Jose Robins, YISEL [address] [place], [place] [id number] documented as of this encounter Visit Diagnoses Diagnosis Herniated lumbar disc without myelopathy- Primary Benign essential hypertension Essential hypertension, benign S/P total left hip arthroplasty Tinea pedis of both feet Skin irritation Unspecified disorder of skin and subcutaneous tissue Open wound of left lower leg, initial encounter Class 2 severe obesity due to excess calories with serious comorbidity and body mass index (BMI) of 38.0 to 38.9 in adult ([facility]) Umbilical hernia without obstruction and without gangrene Status post right hip replacement documented in this encounter Care Teams Behavioral Health Director Relationship Specialty Start Date End Date Javad Donato MD 112 [facility] 110 [place] [address] PCP - ACO Reach 11/19/22 Javad Donato MD [address] [facility] 110 [place] [address] PCP - General Internal Medicine 01/05/23 documented as of this encounter
--- OUTSIDE RECORDS SUMMARY | 2024-12-07 07:28 | XMS_ITS | Encounter Summary ---
Author Organization [facility] Address [address] [facility] [place] [address] Care Team Providers Care Experimental Display Builder Name Role Phone Javad Donato MD Unavailable [phone] Javad Donato MD Primary Care Provider Wednesday, Michelle ARGUETA Unavailable [phone] Encounter Details Date Type Department Care Team (Late st Contact Info) Description 04/14/2023 Abstract [facility] 112 [facility] [facility] 110 [place] [address] Javad Donato MD 112 [facility] 110 [place], [place] [address] Social History Tobacco Use Types Packs/Day Years [...] suspected to have Coronavirus/COVID-19? No / Unsure 04/16/2023 10:56 AM EDT documented as of this encounter Plan of Treatment Upcoming Encounters Date Type Department Care Team (Late st Contact Info) Description 04/26/2025 9:00 AM EDT Office Visit [facility] [address] [place] [address] [place] [address] Javad Donato MD [address] [place] [address] [place] [address] 04/30/2025 8:00 AM EST Office Visit [facility] [address] [address] Jose Robins, EMERGENCY PLANNER [address] [place] [address] documented as of this encounter Visit Diagnoses Not on filedocumented in this encounter Care Teams Experimental Display Builder Relationship Specialty Start Date End Date Javad Donato MD [address] [place] [address] [place] [address] PCP - ACO Reach 11/19/22 Javad Donato MD [address] [place] [address] [place] [address] PCP - General Internal Medicine 01/05/23WednesdayMichelle LPN [address] [place] [address] Licensed Practical Nurse Family Medicine 05/08/24 05/16/24 documented as of this encounter
--- OUTSIDE RECORDS SUMMARY | 2024-12-07 07:29 | XMS_ITS | Encounter Summary ---
Author Organization [facility] Address [address] [place] [address] Care Team Providers Care Body Builder Apprentice Name Role Phone Javad Donato MD Unavailable [phone] Javad Donato MD Primary Care Provider Wednesday, Michelle ARGUETA Unavailable [phone] Encounter Details Date Type Department Care Team (Late st Contact Info) Description 07/07/2023 Abstract [facility] 112 [address] [facility] 110 [place] [address] Javad Donato MD 112 [facility] 110 [place], [place] [address] Social History Tobacco Use Types Packs/Day Years [...] week 05/10/2023 How often do you attend [facility] or religion services? 1 to 4 times per year 05/10/2023 Do you belong to any clubs o r organizations such as druze groups, unions, fraternal or athletic groups, or [...] Recorded Patient Health Questionnaire-2 Score 0 05/17/2023 [facility] of Occupat ional Health [...] Office Visit [facility] 112 [facility] 110 [place] [address] Javad Donato MD 112 [facility] 110 [place] [address] 04/30/2025 8:00 AM EST Office Visit [facility] [address] [place] [address] Jose Robins, SIGN CARPENTER [address] [place], [place] [address] documented as of this encounter Visit Diagnoses Not on filedocumented in this encounter Care Teams Body Builder Apprentice Relationship Specialty Start Date End Date Javad Donato MD [address] [place] [address] [place] [address] PCP - ACO Reach 11/19/22 Javad Donato MD [address] [place] [address] [place] [address] PCP - General Internal Medicine 01/05/23WednesdayMichelle LPN [address] [place] [address] Licensed Practical Nurse Family Medicine 05/08/24 05/16/24 documented as of this encounter
--- OUTSIDE RECORDS SUMMARY | 2024-12-07 07:29 | XMS_ITS | Encounter Summary ---
Author Organization [facility] Address [address] [place] [address] Care Team Providers Care Sanitary Napkin Machine Tender Name Role Phone Javad Donato MD Unavailable [phone] Javad Donato MD Primary Care Provider [phone] Wednesday, Michelle ARGUETA Unavailable [phone] Encounter Details Date Type Department Care Team (Late st Contact Info) Description 06/29/2023 Orders Only [facility] [address] [place] [address] [place] [address] A, Unknown Practice [address] [place] [address] Social History Tobacco Use Types [...] How often do you attend chur or methodist services? 1 to 4 times per year 05/10/2023 Do you belong to any clubs o r organizations such as sikh groups, unions, fraternal [...] Recorded Patient Health Questionnaire-2 Score 0 05/17/2023 [facility] of Occupat ional Health - Occupational Stress [...] place to sleep or slept in a prison (including now)? No 05/10/2023 Sex and Gender [...] EDT Office Visit [facility] 112 [facility] 110 [place] [address] Javad Donato MD 112 [facility] 110 [place], [place] [address] 04/30/2025 8:00 AM EST Office Visit [facility] [address] [place] [address] Jose Robins, STEAM SHOVEL OILER [address] [place] [address] documented as of this encounter Procedures Procedure [...] on filedocumented in this encounter Care Teams Sanitary Napkin Machine Tender Relationship Specialty Start Date End Date Javad Donato MD [address] [place] [address] [place] [address] PCP - ACO Reach 11/19/22 Javad Donato MD [address] [place] 110 [place] [address] PCP - General Internal Medicine 01/05/23Wednesday, ELLIE Martinez [address] [place] [address] Licensed Practical Nurse Family Medicine 05/08/24 05/16/24 documented as of this encounter
--- OUTSIDE RECORDS SUMMARY | 2024-12-07 07:29 | XMS_ITS | Encounter Summary ---
Author Organization [facility] Address [address] [place] [address] Care Team Providers Care Addiction Counselor Name Role Phone Javad Donato MD Unavailable [phone] Javad Donato MD Primary Care Provider [phone] Wednesday, Michelle ARGUETA Unavailable [phone] Reason for Visit * Reason Onset Date Comments Med Refill 12/07/2023 Encounter Details Date Type Department Care Team (Late st Contact Info) Description 12/07/2023 Refill [facility] 112 [facility] [facility] 110 [place] [address] Javad Donato MD [address] [facility] 110 [place], [place] [address] Social History Tobacco Use Types Packs/Day Years [...] How often do you attend chur or confucianist services? 1 to 4 times per year 05/10/2023 Do you belong to any clubs o r organizations such as judaism groups, unions, fraternal or athletic groups, or [...] Recorded Patient Health Questionnaire-2 Score 0 05/17/2023 [facility] of Occupat ional Health - [...] EDT Office Visit [facility] 112 [facility] 110 [place] [address] Javad Donato MD 112 [facility] 110 [place] [address] 04/30/2025 8:00 AM EST Office Visit [facility] [address] [place] [address] Jose Robins, OPERATOR SPECIALIST COMMUNICATIONS [address] [place] [address] documented as of this encounter Visit Diagnoses Not on filedocumented in this encounter Care Teams Addiction Counselor Relationship Specialty Start Date End Date Javad Donato MD [address] [place] [address] [place] [address] PCP - ACO Reach 11/19/22 Javad Donato MD [address] [place] [address] [place] [address] PCP - General Internal Medicine 01/05/23Wednesday, ELLIE Martinez [address] [place] [address] Licensed Practical Nurse Family Medicine 05/08/24 05/16/24 documented as of this encounter
--- OUTSIDE RECORDS SUMMARY | 2024-12-07 07:29 | XMS_ITS | Encounter Summary ---
Author Organization [facility] Address [address] [place] [address] Care Team Providers Care Semiconductor Wafer Inspector Name Role Phone Javad Donato MD Unavailable Javad Donato MD Primary Care Provider [phone] Reason for Visit * Reason Onset Date Comments Med Refill 11/27/2024 Encounter Details Date Type Department Care Team (Late st Contact Info) Description 11/27/2024 Telephone [facility] 112 [address] [facility] 110 [place] [address] Javad Donato MD [address] [place] [facility] 110 [place], [place] [address] Med Refill Social History Tobacco Use Types [...] How often do you attend chur or christian services? 1 to 4 times per year [...] Recorded Patient Health Questionnaire-2 Score 0 11/29/2024 [facility] of Occupat ional Health - Occupational Stress [...] encounter Miscellaneous Notes * Telephone Encounter - Priscilla Cameron - 11/28/2024 1:37 PM EDT Appt scheduled * Telephone Encounter - DESIRAE HEIN - [...] would need an appointment or not [place] documented in this encounter Plan of Treatment Upcoming Encounters Date Type Department Care Team (Late st Contact Info) Description 04/26/2025 9:00 AM EDT Office Visit [facility] [address] [facility] 110 [place] [address] Javad Donato MD [address] [facility] 110 [place] [address] 04/30/2025 8:00 AM EST Office Visit [facility] [address] [facility] [place] [place] [address] Jose Robins, PHYSICAL THERAPY DIRECTOR [address] [place] [address] documented as of this encounter Visit Diagnoses Not on filedocumented in this encounter Care Teams Semiconductor Wafer Inspector Relationship Specialty Start Date End Date Javad Donato MD [address] [facility] 110 [place] [address] PCP - ACO Reach 11/19/22 Javad Donato MD [address] [facility] 110 [place] [address] PCP - General Internal Medicine 01/05/23 documented as of this encounter
--- OUTSIDE RECORDS SUMMARY | 2024-12-07 07:29 | XMS_ITS | Encounter Summary ---
Author Organization [facility] Address [address] [place] [address] Care Team Providers Care Pipe Or Steam Fitter Furnace Installer Name Role Phone Javad Donato MD Unavailable [phone] Javad Donato MD Primary Care Provider [phone] Encounter Details Date Type Department Care Team (Latest Contact Info) Description 11/29/2024 Travel Social History Tobacco Use Types Packs/Day Years [...] How often do you attend chur or orthodox services? 1 to 4 times per year 05/10/2023 Do you belong to any clubs o r organizations such as orthodox groups, unions, fraternal or athletic groups, or [...] Recorded Patient Health Questionnaire-2 Score 0 11/29/2024 [facility] of Occupat ional Health - [...] place to sleep or slept in a senior care (including now)? No 05/10/2023 Sex and Gender [...] Visit [facility] [address] [facility] 110 [place] [address] Javad Donato MD [address] [facility] 110 [place] [address] 04/30/2025 8:00 AM EST Office Visit [facility] [address] [place] [address] Jose Robins, HOSPITAL LABORATORY TECHNICIAN [address] [place], [place] [address] documented as of this encounter Visit Diagnoses Not on filedocumented in this encounter Care Teams Pipe Or Steam Fitter Furnace Installer Relationship Specialty Start Date End Date Javad Donato MD [address] [facility] 110 [place] [address] PCP - ACO Reach 11/19/22 Javad Donato MD [address] [facility] 110 [place] [address] PCP - General Internal Medicine 01/05/23 documented as of this encounter
--- OUTSIDE RECORDS SUMMARY | 2024-12-07 07:29 | XMS_ITS | Encounter Summary ---
Author Organization [facility] Address [address] [place] [address] Care Team Providers Care Donor Processor Name Role Phone Javad Donato MD Unavailable [phone] Javad Donato MD Primary Care Provider [phone] Wednesday, Michelle ARGUETA Unavailable [phone] Encounter Details Date Type Department Care Team (Late st Contact Info) Description 06/29/2023 Abstract [facility] [address] [facility] 110 [place] [address] Javad Donato MD 112 [facility] 110 [place], [place] [address] Social History Tobacco Use Types Packs/Day Years [...] week 05/10/2023 How often do you attend [facility] or oriental orthodox services? 1 to 4 times per year 05/10/2023 Do you belong to any clubs o r organizations such as episcopal groups, unions, fraternal or athletic groups, or [...] place to sleep or slept in a nursing home (including now)? No 05/10/2023 Sex and Gender [...] 04/26/2025 9:00 AM EDT Office Visit [facility] [address] [facility] 110 [place] [address] Javad Donato MD [address] [facility] 110 [place] [address] 04/30/2025 8:00 AM EST Office Visit [facility] [place] [address] Jose Robins, DECKHAND SPONGE BOAT [address] [place] [address] documented as of this encounter Visit Diagnoses Not on filedocumented in this encounter Care Teams Donor Processor Relationship Specialty Start Date End Date Javad Donato MD [address] [place] [address] [place] [address] PCP - ACO Reach 11/19/22 Javad Donato MD [address] [place] [address] [place] [address] PCP - General Internal Medicine 01/05/23Wednesday, ELLIE Martinez [address] [place] [address] Licensed Practical Nurse Family Medicine 05/08/24 05/16/24 documented as of this encounter
--- OUTSIDE RECORDS SUMMARY | 2024-12-07 07:29 | XMS_ITS | Clinical Summary ---
Author Organization [employer] [facility] Address [id number] [address] [place] [address] Care Team Providers Care Multicraft Operator Name Role Phone Javad Donato MD Primary Care Provider [phone] Allergies Active Allergy Reactions Criticality Noted Date [...] = 0.6 oz pur e alcohol) rare [facility] Utilities Answer Date Recorded In the past 12 months has th e [employer], gas, oil, or water [facility] threatened to shut off services in your [...] home today. Medical Devices Implanted Type Area Penciller Device Identifier Shelf Expiration Date Model / Serial / Lot Shell Actb 56mm Hip 4 Hl Clr Cd [place] G7 F Hmsphr - Sna - [id number] Implanted:Qt y: 1 on 07/07/2023 by Amauri Blair DO at [facility] Orthopedic Implant Right: Hip [employer] 04/03/2033 [id number] / NA / [id number] Liner Actb 36mm F Vivacit-E Lum G7 Hip Strl Lf - [id number] Implanted:Qt y: 1 on 07/07/2023 by Amauri Blair DO at [facility] Orthopedic Implant Right: Hip [employer] 05/01/2028 [id number] / / [id number] Stem Fem 129d 4 12/14 45.5mm Fitmore Protasul-64 Hip Rgh - [id number] Implanted:Qt y: 1 on 07/07/2023 by Amauri Blair DO at [facility] Orthopedic Implant Right: Hip [employer] 10/29/2032 [id number] / / [id number] Shell Actb 56mm Hip 4 Hl Clr Cd [place] G7 F Hmsphr - Sna - [id number] Implanted:Qt y: 1 on 05/03/2024 by Amauri Blair DO at [facility] Orthopedic Implant Left: Hip [employer] 12/11/2033 [id number] / NA / [id number] Liner Actb 36mm F Vivacit-E Lum G7 Hip Strl Lf - Sna - [id number] Implanted:Qt y: 1 on 05/03/2024 by Amauri Blair DO at [facility] Orthopedic Implant Left: Hip [employer] 02/20/2029 [id number] / NA / [id number] Stem Fem 129d 4 1214 45.5mm Fitmore Protasul-64 Hip Rgh - Sna - [id number] Implanted:Qt y: 1 on 05/03/2024 by Amauri Blair DO at [facility] Orthopedic Implant Left: Hip [employer] 01/25/2029 [id number] / NA / [id number] Head Fem 36mm +7mm 06/10 Xl Blx D Hip Actb - Sna - [id number] Implanted:Qt y: 1 on 05/03/2024 by Amauri Blair DO at [facility] Orthopedic Implant Left: Hip [employer] 04/25/2031 [id number] / NA / [id number] [employer] Femoral Head 36mm Implanted:Qt y: 1 on 07/07/2023 by Amauri Blair DO at [facility] Other Implant Right: Hip [employer] 10/21/2031 [id number] / / [id number] Screw Bn 30mm 6.5mm St Actb Seevn Trlg Strl Rpl [id number] 165+[id number] - [id number] Implanted:Qt y: 1 on 07/07/2023 by Amauri Blair DO at [facility] Screw Right: Hip [employer] 01/21/2033 [id number] / / [id number] Screw Bn 30mm 6.5mm St Actb Seven Trlg Strl Rpl [id number]+324 165+[id number] - [id number] Implanted:Qt y: 1 on 07/07/2023 by Amauri Blair DO at [facility] Screw Right: Hip [employer] 02/08/2033 [id number] / / [id number] Screw Bn 30mm 6.5mm St Actb Seven Trlg Strl Rpl [id number]+324 165+[id number] - [id number] Implanted:Qt y: 1 on 07/07/2023 by Amauri Blair DO at [facility] Screw Right: Hip [employer] 02/08/2033 [id number] / / [id number] Screw Bn 30mm 6.5mm St Actb Seven Trlg Strl Rpl [id number]+324 165+[id number] - Sna - [id number] Implanted:Qt y: 1 on 05/03/2024 by Amauri Blair DO at [facility] Screw Left: Hip [employer] 11/09/203391-8672-674-3 0 / NA / [id number] Screw Bn 30mm 6.5mm St Actb Seven Trlg Strl [facility] [id number]+324 165+[id number] - Sna - [id number] Implanted:Qt y: 1 on 05/03/2024 by Amauri Blair DO at [facility] Screw Left: Hip [employer] 11/29/203344-4778-555-3 0 / NA / [id number] Insurance [address] [place] [address] MEDICARE [employer] [place] Advance Directives * Full Code (Latest Code Status on File) Date Activated Date Inactivated Comments 05/03/2024 7:48 AM 05/03/2024 6:58 PM * Full Code Date Activated Date Inactivated Comments 07/06/2023 5:59 PM 07/07/2023 4:47 PM Care Teams Multicraft Operator Relationship Specialty Start Date End Date Javad Donato MD [address] [id number] PCP - General Internal Medicine 06/15/17
--- OUTSIDE RECORDS SUMMARY | 2024-12-07 07:29 | XMS_ITS | Clinical Summary ---
Author Organization [facility] Address [address] [facility] [place] [address] Care Team Providers Care Open Hearth Furnace Operator Helper Name Role Phone Javad Donato MD Unavailable [phone] Javad Donato MD Primary Care Provider [phone] Allergies Active Allergy Reactions Criticality Noted Date [...] (Avalide) 150-12.5 MG tabletIndications:B enign essential hypertension Take 1 tablet by mouth Daily 100 tablet 3 06/23/20 24 Active HYDROcodone-acetami nophen ([place]) 5-325 MG tabletIndications:H erniated lumbar disc without myelopathy Take 1 tablet by mouth every 6 (six) hours if needed for severe pain 40 tablet 10/26/19 25 Active tiZANidine (Zanaflex) 4 MG tabletIndications:H erniated lumbar disc without myelopathy Take 1 tablet (4 mg) by mouth Daily 30 tablet 2 11/10/19 25 Active Additional Information Patient taking differently:4 mg Oral Daily,PRN, Reported on 11/29/2024 clotrimazole-betame thasone (Lotrisone) creamIndications:Ti samantha pedis of both feet Apply 1 application topically in the morning and 1 application before bedtime. 30 g 2 11/30/19 25 Active predniSONE (Deltasone) 10 MG tabletIndications:S kin irritation Take 1 tablet (10 mg) by mouth 3 (three) times a day for 3 days, THEN 1 tablet (10 mg) 2 (two) times a day for 3 days, THEN 1 tablet (10 mg) Daily for 3 days. 18 tablet 11/30/19 25 025 Active amoxicillin (Amoxil) 500 MG tabletIndications:S tatus post right hip replacement 4 tabs PO once 30-60 mins before procedure with food 4 tablet 3 11/30/19 25 Active tiZANidine (Zanaflex) 4 MG tabletIndications:H erniated lumbar disc without myelopathy Take 1 tablet (4 mg) by mouth Daily 30 tablet 2 05/24/20 24 025 Discontin ued(Reord er) clotrimazole-betame thasone (Lotrisone) cream Apply 1 application topically in the morning and 1 application before bedtime. 025 Discontin ued(Reord er) Active Problems Problem Noted Date Diagnosed Date Left hip pain 06/20/2024 S/P total left hip arthroplasty 06/20/2024 Primary osteoarthritis of left hip 01/21/2024 Class 2 severe obesity due t o excess calories with serious comorbidity and body mass index (BMI) of 38.0 to 38.9 in adult 01/21/2024 Ganglion cyst of volar aspect of left wrist 12/27 Atherosclerosis of aorta 01/21/2024 Myalgia 08/04/2023 Right hip pain 07/29/2023 Status [...] Problem Noted Date Diagnosed Date Resolved Date Body mass index (BMI) 37.0-37.9, adult 01/21/2024 11/29/2024 Elevated blood pressure read ing in office with diagnosis of hypertension 01/11/2023 Encounters Date Type Department Care Team Description 11/29/2024 11:30 AM EDT Office Visit [facility] 112 [facility] 110 [place] [address] Alma Akins, MARY Herniated lumbar disc without myelopathy (Primary Dx); Benign essential hypertension ; S/P total left hip arthroplasty; Tinea pedis of both feet; Skin irritation; Open wound of left lower leg, initial encounter; Class 2 severe obesity due to excess calories with serious comorbidity and body mass index (BMI) of 38.0 to 38.9 in adult ([facility]); Umbilical hernia without obstruction and without gangrene; Status post right hip replacement 11/29/2024 Bamboo flowsheet [facility] [address] [facility] 110 [place] [address] Alma Akins PA 11/29/2024 Travel 11/27/2024 Telephone [facility] [address] [facility] [address] [place] [address] Javad Donato MD Med Refill 11/09/2024 Refill [facility] [address] [facility] [address] [place] [address] France Farah LPN Herniated lumbar disc without myelopathy 10/30/2024 8:00 AM EDT Ancillary Procedure [facility] [address] [place] [address] 10/30/2024 8:00 AM EDT Office Visit [facility] [address] [place] [address] Jose Robins, YISEL S/P total left hip arthroplasty (Primary Dx); Left hip pain 10/30/2024 Bamboo flowsheet [facility] [address] [place] [address] Jose Robins NP 10/30/2024 Travel 10/25/2024 10:45 AM EDT Office Visit [facility] [address] [facility] [address] [place] [address] Javad Donato MD Herniated lumbar disc without myelopathy; IGT (impaired glucose tolerance); Class 2 severe obesity with serious comorbidity and body mass index (BMI) of 37.0 to 37.9 in adult, unspecified obesity type ([facility]); Morbid (severe) obesity due to excess calories ([facility]); Essential (primary) hypertension ; Body mass index (BMI) 38.0-38.9, adult 10/25/2024 Bamboo flowsheet [facility] [address] [facility] [address] [place] [address] Javad Donato MD 10/25/2024 Travel 09/21/2024 Telephone [facility] 112 [facility] 110 [place] [address] Javad Donato MD from Last 3 [...] often do you attend chur ch or adventism services? 1 to 4 times per year 05/10/2023 Do you belong to any clubs o r organizations such as amish groups, unions, fraternal [...] Recorded Patient Health Questionnaire-2 Score 0 11/29/2024 [facility] Questionnaire Answer Date [...] Pulse 81 11/29/2024 11:33 AM EDT Temperature 36.4 C (97.5 F) 07/27/2024 10:26 AM EST Respiratory Rate 16 11/29/2024 11:33 AM EDT Oxygen Saturation 96% 11/29/2024 11:33 AM EDT Inhaled Oxygen Concentration - - Weight 132 kg (291 lb) 11/29/2024 11:33 AM EDT Height 185.4 cm (6' 1 ) 11/29/2024 11:33 AM EDT Body Mass Index 38.39 11/29/2024 11:33 AM EDT Plan of Treatment Upcoming Encounters Date Type Department Care Team (Late st Contact Info) Description 04/26/2025 9:00 AM EDT Office Visit [facility] 112 [facility] [address] [place] [address] Javad Donato MD [address] [place] [address] [place] [address] 04/30/2025 8:00 AM EST Office Visit [facility] [address] [place] [address] Jose oRbins, FIELD CONTRACTOR [address] [place] [address] Health Maintenance Due Date Last [...] to 37.9 in adult, unspecified obesity type ([facility]) COLONOSCOPY Routine 07/12/2017 12:00 PM EST from [...] Unremarkable left total hip arthroplasty. Jose Robins HEAD COACH-V BELT FINISHER Jose Robins FIELD CONTRACTOR IMG XR PROCEDURES Final Result * POCT Glycated hemoglobin, total (10/25/2024 12:42 PM EDT) Hemoglobin A1C 5.8 Blood 10/25/2024 12:4 2 PM EDT Javad Donato MD POINT OF CARE TEST ENTER/EDIT ORDERABLES Final Result * Colonoscopy (07/12/2017 12:00 PM EST) Anatomical Region Laterality Modality Endoscopy 07/12/2017 12:0 0 PM EST Narrative 07/12/2017 12:00 PM EST PERFORMED AT [facility] LOCATION:[id number] internal hemorrhoids, diverticulosis Procedure Note CONVERSION, GENERIC - 11/11/2022 PERFORMED AT [facility] LOCATION:[id number] internal hemorrhoids, diverticulosis Javad Donato MD ENDOSCOPY PROCEDURE ORDERABLES Final Result from Last 3 Months or Most Recently Relevant to Health Maintenance Insurance [facility] Care Teams Open Hearth Furnace Operator Helper Relationship Specialty Start Date End Date Javad Donato MD [address] [facility] 110 [place] [address] PCP - ACO Reach 11/19/22 Javad Donato MD [address] [facility] 110 [place] [address] PCP - General Internal Medicine 01/05/23
--- OUTSIDE RECORDS SUMMARY | 2024-12-07 07:29 | XMS_ITS | Encounter Summary ---
Author Organization [facility] Address [address] [place] [address] Care Team Providers Care Wall Crane Operator Name Role Phone Javad Donato MD Unavailable [phone] Javad Donato MD Primary Care Provider [phone] Wednesday, Michelle ARGUETA Unavailable [phone] Encounter Details Date Type Department Care Team (Late st Contact Info) Description 05/17/2023 Abstract [facility] [address] [facility] 110 [place] [address] Javad Donato MD 112 [facility] 110 [place], [place] [address] Social History Tobacco Use Types Packs/Day Years [...] week 05/10/2023 How often do you attend [facility] or caodaism services? 1 to 4 times per year 05/10/2023 Do you belong to any clubs o r organizations such as latter-day groups, unions, fraternal or athletic groups, or [...] Recorded Patient Health Questionnaire-2 Score 0 05/17/2023 [facility] - Occupational Stress [...] place to sleep or slept in a alf (including now)? No 05/10/2023 Sex and Gender [...] [address] [facility] [address] [place] [address] Javad Donato MD [address] [place] [address] [place] [address] 04/30/2025 8:00 AM EST Office Visit [facility] [address] [facility] [place] [address] Jose Robins, SUPERVISOR CLOTH WINDING [address] [place] [address] documented as of this encounter Visit Diagnoses Not on filedocumented in this encounter Care Teams Wall Crane Operator Relationship Specialty Start Date End Date Javad Donato MD [address] [place] [address] [place] [address] PCP - ACO Reach 11/19/22 Javad Donato MD [address] [place] [address] [place] [address] PCP - General Internal Medicine 01/05/23Wednesday, ELLIE Martinez [address] [place] [address] Licensed Practical Nurse Family Medicine 05/08/24 05/16/24 documented as of this encounter
--- OUTSIDE RECORDS SUMMARY | 2024-12-07 07:29 | XMS_ITS | Encounter Summary ---
Author Organization [facility] Address [address] [facility] [place] [address] Care Team Providers Care Freezer Worker Name Role Phone Javad Donato MD Unavailable [phone] Javad Donato MD Primary Care Provider Wednesday, Michelle ARGUETA Unavailable [phone] Encounter Details Date Type Department Care Team (Late st Contact Info) Description 01/11/2023 Abstract [facility] [address] [facility] 110 [place] [address] Javad Donato MD 112 [facility] 110 [place], [place] [address] Social History Tobacco Use Types Packs/Day Years [...] Visit [facility] [address] [facility] 110 [place] [address] Javad Donato MD [address] [place] [address] [place] [address] 04/30/2025 8:00 AM EST Office Visit [facility] [address] [place] [address] Jose Robins, ART STUDIO TEACHER [address] [place] [address] documented as of this encounter Visit Diagnoses Not on filedocumented in this encounter Care Teams Freezer Worker Relationship Specialty Start Date End Date Javad Donato MD [address] [place] [address] PCP - ACO Reach 11/19/22 Javad Donato MD [address] [place] [address] [place] [address] PCP - General Internal Medicine 01/05/23Wednesday, ELLIE Martinez [address] [place] [address] Licensed Practical Nurse Family Medicine 05/08/24 05/16/24 documented as of this encounter
--- OUTSIDE RECORDS SUMMARY | 2024-12-07 07:29 | XMS_ITS | Encounter Summary ---
Author Organization [facility] Address [address] [place] [address] Care Team Providers Care Home Extension Agent Name Role Phone Unavailable Primary Care Provider Unavailabl e Source Comments In the event this information is protected by the Federal Confidentiality of Alcohol and Drug AbusePatient Records regulations: The Federal rules restrict any use of the information to criminally investigate or prosecute any alcohol or drug abuse patient.[facility] Encounter Details Date Type Department Care Team (Late st Contact Info) Description 04/13/2023 Get Medical Advice Sp[facility] [place] [address] [place] [address] Mercedes Pan PA-C [address] [place] [address] Pain management reports Social History Tobacco Use Types Packs/Day Years Used Date Smoking Tobacco: Never Assessed PHQ-2 Answer Date Recorded PHQ-2 score 1 04/13/2023 Area Deprivation Index Answer Date Jeronimo rded National Score (1-100), lower number is lower ri sk 76 04/13/2023 State Score (1-10), lower number is lower risk 6 04/13/2023 Data from: https://www.neighborhoodatlas.[facility].edu/. Last address used for calculation [address] [...]
--- OUTSIDE RECORDS SUMMARY | 2024-12-07 07:29 | XMS_ITS | Encounter Summary ---
Author Organization [facility] Address [address] [place] [address] Care Team Providers Care Correction Officer Penitentiary Name Role Phone Javad Donato MD Unavailable [phone] Javad Donato MD Primary Care Provider Wednesday, Michelle ARGUETA Unavailable [phone] Encounter Details Date Type Department Care Team (Late st Contact Info) Description 07/07/2023 Abstract [facility] [address] [facility] [address] [place] [address] Javad Donato MD 112 [facility] 110 [place], [place] [address] Social History Tobacco Use Types Packs/Day Years [...] week 05/10/2023 How often do you attend [facility] or mormonism services? 1 to 4 times per year 05/10/2023 Do you belong to any clubs o r organizations such as presybeterian groups, unions, fraternal or athletic groups, or [...] Recorded Patient Health Questionnaire-2 Score 0 05/17/2023 [facility] of Occupat ional Health - Occupational [...] place to sleep or slept in a longterm (including now)? No 05/10/2023 Sex and Gender [...] EDT Office Visit [facility] 112 [facility] 110 [place] [address] Javad Donato MD 112 [facility] 110 [place] [address] 04/30/2025 8:00 AM EST Office Visit [facility] [address] [place] [address] Jose Robins, FITNESS ASSISTANT [address] [place], [place] [address] documented as of this encounter Visit Diagnoses Not on filedocumented in this encounter Care Teams Correction Officer Penitentiary Relationship Specialty Start Date End Date Javad Donato MD [address] [place] [address] PCP - ACO Reach 11/19/22 Javad Donato MD [address] [place] [address] PCP - General Internal Medicine 01/05/23WednesdayMichelle LPN [address] [place] [address] Licensed Practical Nurse Family Medicine 05/08/24 05/16/24 documented as of this encounter
--- OUTSIDE RECORDS SUMMARY | 2024-12-07 07:29 | XMS_ITS | Encounter Summary ---
Author Organization [facility] Address [address] [place] [address] Care Team Providers Care Health And Safety Instructor Name Role Phone Javad Donato MD Unavailable [phone] Javad Donato MD Primary Care Provider [phone] Wednesday, Michelle ARGUETA Unavailable [phone] Encounter Details Date Type Department Care Team (Late st Contact Info) Description 03/02/2023 Abstract [facility] [address] [facility] 110 [place] [address] Javad Donato MD [address] [facility] 110 [place], [place] [address] Social History Tobacco Use Types Packs/Day Years [...] [address] [facility] [address] [place] [address] Javad Donato MD [address] [place] [address] 04/30/2025 8:00 AM EST Office Visit [facility] [address] [place] [address] Jose Robins, INSOLE BUFFER [address] [place], [place] [address] documented as of this encounter Visit Diagnoses Not on filedocumented in this encounter Care Teams Health And Safety Instructor Relationship Specialty Start Date End Date Jaavd Donato MD [address] [place] [address] PCP - ACO Reach 11/19/22 Javad Donato MD [address] [place] [address] PCP - General Internal Medicine 01/05/23Wednesday, ELLIE Martinez [address] [place] [address] Licensed Practical Nurse Family Medicine 05/08/24 05/16/24 documented as of this encounter
--- OUTSIDE RECORDS SUMMARY | 2024-12-07 07:29 | XMS_ITS | Encounter Summary ---
Author Organization [facility] Address [address] [place] [address] Care Team Providers Care Binding Cutter Name Role Phone Javad Donato MD Unavailable [phone] Javad Donato MD Primary Care Provider Wednesday, Michelle ARGUETA Unavailable [phone] Encounter Details Date Type Department Care Team (Late st Contact Info) Description 03/16/2023 Abstract [facility] [address] [facility] 110 [place] [address] Javad Donato MD [address] [facility] 110 [place], [place] [address] Social History Tobacco Use Types Packs/Day Years [...] Visit [facility] [address] [facility] 110 [place] [address] Javad Donato MD [address] [place] [address] 04/30/2025 8:00 AM EST Office Visit [facility] [address] [place] [address] Jose Robins, DAIRY SPECIALIST [address] [place], [place] [address] documented as of this encounter Visit Diagnoses Not on filedocumented in this encounter Care Teams Binding Cutter Relationship Specialty Start Date End Date Javad Donato MD [address] [place] [address] PCP - ACO Reach 11/19/22 Javad Donato MD [address] [place] [address] PCP - General Internal Medicine 01/05/23Wednesday, ELLIE Martinez [address] [place] [address] Licensed Practical Nurse Family Medicine 05/08/24 05/16/24 documented as of this encounter
--- OUTSIDE RECORDS SUMMARY | 2024-12-07 07:29 | XMS_ITS | Encounter Summary ---
Author Organization [facility] Address [address] [place] [address] Care Team Providers Care Employment Trainer Name Role Phone Javad Donato MD Unavailable [phone] Javad Donato MD Primary Care Provider [phone] Wednesday, Michelle ARGUETA Unavailable [phone] Encounter Details Date Type Department Care Team (Late st Contact Info) Description 06/14/2023 Orders Only [facility] [address] [place] [address] [place] [address] A, Unknown Practice [address] [place] [address] Social History Tobacco Use Types [...] any clubs o r organizations such as yazidi groups, unions, fraternal or athletic groups, or [...] Recorded Patient Health Questionnaire-2 Score 0 05/17/2023 [facility] - Occupational [...] to sleep or slept in a senior living (including now)? No 05/10/2023 Sex and Gender [...] CI FM 112 [facility] 110 [place] [address] Javad Donato MD 112 [facility] 110 [place], [place] [address] 04/30/2025 8:00 AM EST Office Visit [facility] [address] [place] [address] Jose Robins, MEDIA REPORTER [place] [address] documented as of this encounter Procedures Procedure Name Priority Date/Time Associated Diagnosis Comments SCANNED LABS Routine 06/08/2023 9:05 AM EST documented in this encounter Results * SCANNED LABS (06/08/2023 9:05 AM EST) us Unknown Practice A LAB CHG PERFORMABLES Final Re sult documented in this encounter Visit Diagnoses Not on filedocumented in this encounter Care Teams Employment Trainer Relationship Specialty Start Date End Date Javad Donato MD [address] [place] [address] [place] [address] PCP - ACO Reach 11/19/22 Javad Donato MD [address] [place] [address] [place] [address] PCP - General Internal Medicine 01/05/23WednesdayMichelle LPN [address] [place] [address] Licensed Practical Nurse Family Medicine 05/08/24 05/16/24 documented as of this encounter
--- OUTSIDE RECORDS SUMMARY | 2024-12-07 07:29 | XMS_ITS | Encounter Summary ---
Author Organization [facility] Address [address] [place] [address] Care Team Providers Care Underwriting Account Representative Name Role Phone Javad Donato MD Unavailable [phone] Javad Donato MD Primary Care Provider [phone] Wednesday, Michelle ARGUETA Unavailable [phone] Encounter Details Date Type Department Care Team (Late st Contact Info) Description 02/03/2023 Abstract [facility] [address] [place] [address] [place] [address] Javad Donato MD [address] [facility] 110 [place], [place] [address] Social History Tobacco Use Types Packs/Day Years [...] Visit [facility] [address] [place] [address] [place] [address] aJvad Donato MD [address] [place] [address] [place] [address] 04/30/2025 8:00 AM EST Office Visit [facility] [address] [place] [phone] Jose Robins, BUSINESS TRANSFORMATION MANAGER [address] [place], [place] [id number] documented as of this encounter Visit Diagnoses Not on filedocumented in this encounter Care Teams Underwriting Account Representative Relationship Specialty Start Date End Date Javad Donato MD [address] [place] [address] [place] [address] PCP - ACO Reach 11/19/22 Javad Donato MD [address] [place] [address] [place] [address] PCP - General Internal Medicine 01/05/23Wednesday, ELLIE Martinez [address] [place] [address] Licensed Practical Nurse Family Medicine 05/08/24 05/16/24 documented as of this encounter
--- OUTSIDE RECORDS SUMMARY | 2024-12-07 07:29 | XMS_ITS | Encounter Summary ---
Author Organization [facility] Address [address] [place] [address] Care Team Providers Care Blocker Automatic Name Role Phone Javad Donato MD Unavailable [phone] Javad Donato MD Primary Care Provider [phone] Encounter Details Date Type Department Care Team (Late st Contact Info) Description 11/29/2024 Bamboo flowsheet [facility] [address] [facility] 110 [place] [address] Alma Akins, PA [address] [place] [address] [place] [facility] 110 [place] [address] Social History Tobacco Use Types Packs/Day Years [...] 05/10/2023 How often do you attend [facility] or restorationist services? 1 to 4 times per year 05/10/2023 Do you belong to any clubs o r organizations such as hindu groups, unions, fraternal or athletic groups, or [...] Recorded Patient Health Questionnaire-2 Score 0 11/29/2024 [facility] - [...] place to sleep or slept in a retirement (including now)? No 05/10/2023 Sex and Gender [...] 112 [facility] 110 [place] [address] Javad Donato MD 112 [facility] 110 [place] [address] 04/30/2025 8:00 AM EST Office Visit [facility] [address] [place] [address] Jose Robins, COMMUNITY HEALTH [employer] [address] [place], [place] [address] documented as of this encounter Visit Diagnoses Not on filedocumented in this encounter Care Teams Blocker Automatic Relationship Specialty Start Date End Date Javad Donato MD [address] [facility] 110 [place] [address] PCP - ACO Reach 11/19/22 Javad Donato MD [address] [facility] 110 [place] [address] PCP - General Internal Medicine 01/05/23 documented as of this encounter
--- OUTSIDE RECORDS SUMMARY | 2024-12-07 07:29 | XMS_ITS | Encounter Summary ---
Author Organization [facility] Address [address] [place] [address] Care Team Providers Care Caustic Preparer Name Role Phone Javad Donato MD Unavailable [phone] Javad Donato MD Primary Care Provider Wednesday, Michelle ARGUETA Unavailable [phone] Encounter Details Date Type Department Care Team (Late st Contact Info) Description 07/05/2023 Abstract [facility] [address] [facility] 110 [place] [address] Javad Donato MD 112 [facility] 110 [place], [place] [address] Social History Tobacco Use Types Packs/Day Years [...] week 05/10/2023 How often do you attend [facility] or baptism services? 1 to 4 times per year 05/10/2023 Do you belong to any clubs o r organizations such as scientologist groups, unions, fraternal or athletic groups, or [...] Recorded Patient Health Questionnaire-2 Score 0 05/17/2023 [facility] Occup[facility] ional Health - Occupational [...] place to sleep or slept in a group home (including now)? No 05/10/2023 Sex and [...] EDT Office Visit [facility] 112 [facility] 110 [place] [address] Javad Donato MD 112 [facility] 110 [place] [address] 04/30/2025 8:00 AM EST Office Visit [facility] [address] [place] [address] Jose Robins, SCHOOL COMMUNITY RELATIONS COORDINATOR [address] [place], [place] [address] documented as of this encounter Visit Diagnoses Not on filedocumented in this encounter Care Teams Caustic Preparer Relationship Specialty Start Date End Date Javad Donato MD [address] [place] [address] PCP - ACO Reach 11/19/22 Javad Donato MD [address] [place] [address] PCP - General Internal Medicine 01/05/23WednesdayMichelle LPN [address] [place] [address] Licensed Practical Nurse Family Medicine 05/08/24 05/16/24 documented as of this encounter
--- OUTSIDE RECORDS SUMMARY | 2024-12-07 07:29 | XMS_ITS | Encounter Summary ---
Author Organization [facility] Address [address] [place] [address] Care Team Providers Care City Sanitarian Name Role Phone Javad Donato MD Unavailable [phone] Javad Donato MD Primary Care Provider Encounter Details Date Type Department Care Team (Late st Contact Info) Description 06/15/2024 Abstract [facility] [address] [facility] 110 [place] [address] Javad Donato MD 112 [facility] 110 [place], [place] [address] Social History Tobacco Use Types Packs/Day Years [...] any clubs o r organizations such as moravian groups, unions, fraternal or athletic groups, or [...] Recorded Patient Health Questionnaire-2 Score 0 06/08/2024 [facility] - Occupational Stress Questionnaire Answer Date [...] place to sleep or slept in a long term (including now)? No 05/10/2023 Sex and Gender [...] 04/26/2025 9:00 AM EDT Office Visit [facility] [address] [facility] 110 [place] [address] Javad Donato MD [address] [facility] 110 [place] [address] 04/30/2025 8:00 AM EST Office Visit [facility] [address] [place] [address] Jose Robins, YISEL [address] [place], [place] [address] documented as of this encounter Visit Diagnoses Not on filedocumented in this encounter Care Teams City Sanitarian Relationship Specialty Start Date End Date Javad Donato MD [address] [facility] 110 [place] [address] PCP - ACO Reach 11/19/22 Javad Donato MD [address] [facility] 110 [place] [address] PCP - General Internal Medicine 01/05/23 documented as of this encounter
--- OUTSIDE RECORDS SUMMARY | 2024-12-07 07:29 | XMS_ITS | Encounter Summary ---
Author Organization [facility] Address [address] [place] [address] Care Team Providers Care Boilerhouse Mechanic Name Role Phone Javad Donato MD Unavailable Javad Donato MD Primary Care Provider [phone] Encounter Details Date Type Department Care Team [...] How often do you attend chur or temple services? 1 to 4 times per year 05/10/2023 Do you belong to any clubs o r organizations such as hoahaoism groups, unions, fraternal or athletic groups, or [...] Office Visit [facility] [address] [facility] 110 [place] [address] Javad Donato MD 112 [facility] 110 [place] [address] 04/30/2025 8:00 AM EST Office Visit [facility] [address] [place] [address] Jose Robins, YISEL [address] [place] [address] documented as of this encounter Procedures Procedure Name Priority Date/Time Associated Diagnosis Comments XR LUMBAR SPINE 6V W BENDING 06/17/2024 7:57 AM EST documented in this encounter Results * XR LUMBAR SPINE 6V W BENDING (06/17/2024 7:57 AM EST) Anatomical Region Laterality Modality Other 06/17/2024 7:57 AM EST Narrative 06/17/2024 7:59 [place] [address] XRay Report Signed Patient: CANDACE VELA MR#: [id number] : 1955 Acct:[id number] Age/Sex: 69 / M ADM Date: 06/16/24 Loc: [facility] Attending Dr: Yosef Cheema NP Ordering Physician: Yosef Cheema NP Date of Service: 06/16/24 Procedure(s): XR lumbar spine 6V w bending Accession Number(s): [id number] cc: JAVAD DONATO ; Yosef Cheema NP [place] [address] Patient Name: CANDACE VELA MRN: [id number] date: 1955 Sex: M Assigned Patient Location: [facility] Current Patient Location: Accession/Order Number: [id number] Exam Date: 06/16/2024 12:03 Report Date: 06/17/2024 [...] Signed By: 06/17/24 0759 DD/ 0757 TD/TT: [employer] Counselor: Procedure Note Radiology, Radiologist, MD - 06/17/2024 [place] [address] XRay Report Signed Patient: CANDACE VELA GMR#: [id number] : 1955cct:[id number] Age/Sex: 69 / MADM Date: 06/16/24 Loc: RAD Attending Dr: Yosef Cheema NP Ordering Physician: Yosef Cheema NP Date of Service: 06/16/24 Procedure(s): XR lumbar spine 6V w bending Accession Number(s): [id number] cc: JAVAD DONATO ; Yosef Cheema NP [place] [address] Patient Name: CANDACE VELA MRN: [id number] date: 1955 Sex: M Assigned Patient Location: [facility] Current Patient Location: Accession/Order Number: [id number] Exam Date: 06/16/2024 12:03 Report Date: 06/17/2024 [...] M.D. Signed By:06/17/24 0759 DD/ 0757 TD/TT: [employer] Counselor: us Generic External Data Provider [facility] Final Result documented in this encounter Visit Diagnoses Not on filedocumented in this encounter Care Teams Boilerhouse Mechanic Relationship Specialty Start Date End Date Javad Donato MD [address] [facility] 110 [place] [address] PCP - ACO Reach 11/19/22 Javad Donato MD [address] [facility] 110 [place] [address] PCP - General Internal Medicine 01/05/23 documented as of this encounter
--- OUTSIDE RECORDS SUMMARY | 2024-12-07 07:29 | XMS_ITS | Clinical Summary ---
Author Organization [facility] Address [address] [place] [address] Care Team Providers Care Supervisor Painting Name Role Phone Unavailable Primary Care Provider [...] is lower risk 6 04/13/2023 Data from: [email or web address] Last address used for calculation [address] [...]
--- OUTSIDE RECORDS SUMMARY | 2024-12-07 07:29 | XMS_ITS | CCD ---
Author Organization [facility] Care Team Providers Care Print And Pattern Designer Name Role Phone JAVAD DONATO Primary Care [...] Care Unavailable JAVAD SAINI Consulting Unavailable CAMILLE BAILYE Consulting Unavailable Erica Xiong Unavailable SIMONA Donato [...] Referring Unavailable JAVAD DONATO Primary Care Unavailable ROSSY, CHARISSA Rose Referring Unavailable JAVAD DONATO Primary Care Unavailable ROSSY, CHARISSA Rose Referring Unavailable JAVAD DONATO Primary Care Unavailable CHANDLER, CHARISSA Rose Admitting Unavailable ROSSY, CHARISSA Rose Attending Unavailable JAVAD DONATO Primary Care Unavailable Wednesday ROBOTICS TESTING TECHNICIAN, Michelle Unavailable Wednesday ROBOTICS TESTING TECHNICIAN, Michelle Unavailable Javad Donato MD Primary Care Provider JEANNA MENDIOLA Attending Unavailable EDGAR, JOSE Barkley Referring Unavailable HEMSTEPHEN, ALMA Gaona Attending Unavailable HERNÁNDEZ, JOSE Barkley Attending Unavailable JAVAD DONATO Attending Unavailable HERNÁNDEZ, JOSE Barkley Attending Unavailable HERNÁNDEZ, JOSE Barkley Referring Unavailable HEMMER, ALMA Gaona Attending Unavailable HERNÁNDEZ, JOSE Barkley Attending Unavailable HERNÁNDEZ, JOSE Barkley Referring Unavailable ROSSY, CHARISSA Rose Attending Unavailable HEMSTEPHEN, ALMA Gaona Attending Unavailable ROSSY, CHARISSA Rose Attending Unavailable HEMSTEPHEN, ALMA Gaona Attending Unavailable HERNÁNDEZ, JOSE Barkley Attending Unavailable ROSSY, CHARISSA Rose Referring Unavailable JAVAD DONATO Attending Unavailable ROSSY, CHARISSA Rose Attending Unavailable ROSSY, CHARISSA Rose Attending Unavailable HERNÁNDEZ, JOSE Barkley Attending Unavailable HERNÁNDEZ, JOSE Barkley Referring Unavailable JAVAD DONATO Attending Unavailable NAGI PLATA Attending Unavailable HERNÁNDEZ, JOSE T Referring Unavailable JAVAD DONATO Referring Unavailable KAILEY GOLDMAN Attending Unavailable HERNÁNDEZ, JOSE T Referring Unavailable JEANNA MENDIOLA Attending Unavailable HERNÁNDEZ, JOSE Barkley Referring Unavailable HERNÁNDEZ, JOSE T Attending Unavailable JEANNA MENDIOLA Attending Unavailable HERNÁNDEZ, JOSE T Referring Unavailable YOSEF CHEEMA Referring Unavailable JEANNA MENDIOLA Attending Unavailable HERNÁNDEZ, JOSE T Referring Unavailable JEANNA MENDIOLA Attending Unavailable HERNÁNDEZ, JOSE T Referring Unavailable JEANNA MENDIOLA Attending Unavailable HERNÁNDEZ, JOSE T Referring Unavailable Justine BAER, Lidia Koch Attending Unavailable Justine BAER, Lidia Koch Attending Unavailable Allergies Allergy Classification Reported Allergen(s) Allergy Type Date of Onset Reaction(s) Facility (20 sources) carvedilol; Translations: [CARVEDILOL] Drug Allergy 06-29-2022 [facility] Medications Current Medications Medication Drug Class(es) Dates [...] every six hours for pain HYDROcodone-aceta minophen ([place]) 5-325 MG tablet Indications: Herniated lumbar disc without myelopathy Take 1 tablet by mouth every 6 (six) hours if needed for severe pain 40 tablet 10/25/2024 Active Start: 02-07-2024 take 1 tablet by yvon th every six hours [place] 325 mg-5 mg oral tablet 1 tab(s), [...] 1 tablet by mouth [facility] ascorbic acid (VITAMIN C) 500 mg tablet [...] (2 sources) take 1 tablet by yvon in the morning BEE POLLEN ORAL Take 1 tablet by mouth in the morning. Active take 1 tablet by mouth in the [place]n [facility] BEE POLLEN ORAL Take 1 tablet by [...] take 1 tablet by mouth in the [facility] cholecalciferol 1,000 units tablet Take 1 tablet [...] capsule (3 sources) take 1 capsule by mo ut in the morning selenium 200 mcg capsule Take 1 capsule (200 mcg total) by mouth in the morning. Active take 1 capsule by mouth in the orning selenium 200 mcg capsule Take 1 capsule (200 mcg total) by mouth in the morning. 0 Active take 1 capsule by mouth in the orning selenium 200 mcg capsule Take 1 [...] Active Start: 06-30-2021 take 1 capsule by [facility] twice daily tamsulosin 0.4 mg Cap 0.4 mg = 1 cap(s), Oral, BID, # 60 cap(s), Refills(s) 11, Pharmacy: [facility] [id number], 186, cm, 02/08/23 11:10:00 EDT, Height/Length Dosing, [...] Unremarkable left total hip arthroplasty. Jose Hernández EMT B-SOFTWARE INTEGRATION DEVELOPER [facility] (narrative) [facility] Laboratory - Hematology and Cell countson 10-25-2024 HbA1c (Bld) [Mass fraction] 5.8 % [facility] [employer] No Panel Informationon 10-25 [facility] MR LUMBAR SPINE WO CONTRASTo n [...] BY: Clark Landeros, DO Normal Not Available [facility] US LOWER EXTREMITY MEGHNA RIAL DUPLEX BILATERALon 06-22-2024 [facility] US LOWER EXTREMITY ARTERIAL DUPLEX [...] Location: Velocity/Waveform Location: Velocity/Waveform THIGH: THIGH: R DIAL LATHE OPERATOR: 165 T L DIAL LATHE OPERATOR: 119 T R SFA PROX: 101 T L SFA PROX: 121 T R SFA MID: 96 T L SFA MID 103 T R SFA DIST: 104 T L SFA DIST: 81 T R POP A: 54 T L POP A: 65 T CALF: CALF: R KAMERON: 111 T L KAMERON: 80 T R TRUCK BENCH MECHANIC PROX: 105 T L TRUCK BENCH MECHANIC PROX: 123 T R TRUCK BENCH MECHANIC MID: 139 T L TRUCK BENCH MECHANIC MID: 125 T R TRUCK BENCH MECHANIC DIST: 129 T L TRUCK BENCH MECHANIC DIST: 151 T R SALINAS: 105 B L SALINAS: 76 T IMPRESSION: No significant findings. Mild plaque in the right common femoral artery with less than 50% stenosis. *This report is generated using voice recognition reporting (Mirakl). On occasion [employer] erroneously drops words from the report or replaces the spoken word with similar sounding words. Please call with any questions/concerns regarding this report.* Dictated and transcribed 06/23/2024/ This report has been electronically signed and approved by the interpreting radiologist. Normal Not Available CBC (H/H, RBC, INDICES, WBC, PLT)on 06-15-2024 Erythrocyte distribution width (RBC) [Ratio] 14.8 % Normal 11.0-15.0 [facility] Comment on above: Performed By: #### 1 261, 34235 #### [facility] [address] [place] [phone] [employer] Operator: Katarzyna Khan #### 5363, 0827, 496 #### [facility] [address] [address] [employer] Operator: Casey Chi MD Hematocrit (Bld) [Volume fraction] 37.3 % Low 38.5-50.0 [facility] Comment on above: Performed By: #### 1 279, 07174 #### [facility] [place] [address] [employer] Operator: Katarzyna Khan #### 5363, 5905, 496 #### [facility] [address], [address] [place] [address] [employer] Operator: Casey Chi MD Hemoglobin (Bld) [Mass/Vol] 12.0 g/dL Low 13.2-17.1 [facility] Comment on above: Performed By: #### 1 759, 04237 #### [facility] [place] [address] [employer] Equipment Operator: Katarzyna Khan #### 5363, 7600, 496 #### [facility] [address], [address] [place] [address] [employer] Operator: Casey Chi MD MCH (RBC) [Entitic mass] 28.0 pg Normal 27.0-33.0 [facility] Comment on above: Performed By: #### 1 609, 05685 #### [facility] [place] [address] [employer] Equipment Operator: Katarzyna Khan #### 5363, 3610, 496 #### [facility] [address], [address] [place] [address] [employer] Equipment Operator: Casey Chi MD MCHC (RBC) [Mass/Vol] 32.2 [...] patient's clinical condition. Performed By: #### 1 669, 28485 #### [facility] [address] [place] [phone] [employer] Equipment Operator: Katarzyna Khan #### 5363, 4510, 496 #### [facility] [address], [address] [place] [address] [employer] Equipment Operator: Casey Chi MD MCV (RBC) [Entitic vol] 86.9 fL Normal 80.0-100.0 [facility] Comment on above: Performed By: #### 1 629, 91881 #### [facility] [address] [place] [address] [employer] Equipment Operator: Katarzyna Khan #### 5363, 7600, 496 #### [facility] [place] [address] [employer] Operator: Casey Chi MD Platelet mean volume (Bld) [Entitic vol] 9.1 fL Normal 7.5-12.5 [facility] Comment on above: Performed By: #### 1 759, 66744 #### [facility] [place] [address] [employer] Equipment Operator: Katarzyna Khan #### 5363, 7600, 496 #### [facility] [place] [address] [employer] Operator: Casey Chi MD Platelets (Bld) [#/Vol] 242 10*3/uL Normal 140-400 [facility] Comment on above: Performed By: #### 1 759, 99413 #### [facility] [place] [address] [employer] Equipment Operator: Katarzyna Khan #### 5363, 7600, 496 #### [facility] [place] [address] [employer] Operator: Casey Chi MD RBC (Bld) [#/Vol] 4.29 10*6/uL Normal 4.20-5.80 [facility] Comment on above: Performed By: #### 1 759, 84640 #### [facility] [address] [place] [address] [employer] Equipment Operator: Katarzyna Khan #### 5363, 7600, 496 #### [facility] [place] [address] [employer] Operator: Casey Chi MD WBC (Bld) [#/Vol] 7.7 10*3/uL Normal 3.8-10.8 [facility] Comment on above: Performed By: #### 1 759, 84231 #### [facility] [employer] Equipment Operator: Katarzyna Khan #### 5363, 7600, 496 #### [facility] [address], [address] [place] [address] [employer] Equipment Operator: Casey Chi MD [facility] METABOLIC [facility] 06-15-2024 Albumin [Mass/Vol] 3.9 g/dL Normal 3.6-5.1 [facility] Comment on above: Performed By: #### 1 759, 34254 #### [facility] [address] [employer] Equipment Operator: Katarzyna Khan #### 5363, 7600, 496 #### [facility] [address], [address] [place] [address] [employer] Equipment Operator: Casey Chi MD Albumin/Globulin [Mass ratio] 1.5 {ratio} Normal 1.0-2.5 [facility] Comment on above: Performed By: #### 1 759, 83578 #### [facility] [address] [employer] Equipment Operator: Katarzyna Khan #### 5363, 7600, 496 #### [facility] [address], [address] [place] [address] [employer] Equipment Operator: Casey Chi MD ALP [Catalytic activity/Vol] 71 U/L Normal 35-144 [facility] Comment on above: Performed By: #### 1 759, 57044 #### [facility] [employer] Equipment Operator: Katarzyna Khan #### 5363, 6490, 496 #### [facility] [address], [address] [place] [address] [employer] Equipment Operator: Casey Chi MD ALT [Catalytic activity/Vol] 18 U/L Normal 9-46 [facility] Comment on above: Performed By: #### 1 759, 15730 #### [facility] [address] [place] [address] [employer] Equipment Operator: Katarzyna Khan #### 5363, 7600, 496 #### [facility] [address], [address] [place] [address] [employer] Equipment Operator: Casey Chi MD AST [Catalytic activity/Vol] 18 U/L Normal 10-35 [facility] Comment on above: Performed By: #### 1 759, 16864 #### [facility] [address] [place] [address] [employer] Equipment Operator: Katarzyna Khan #### 5363, 7600, 496 #### [facility] [address], [address] [place] [address] [employer] Equipment Operator: Casey Chi MD Bilirubin [Mass/Vol] 0.6 mg/dL Normal 0.2-1.2 [facility] Comment on above: Performed By: #### 1 759, 80222 #### [facility] [address] [place], [place] [address] [employer] Plant[employer] Equipment Operator: Katarzyna Khan #### 5363, 7600, 496 #### [facility] [address], [address] [place] [address] [employer] Operator: Casey Chi MD BUN/CREATININE RATIO SEE NOTE: Normal 6-22 [facility] Comment on above: Result Comment: Not Reported: BUN and Creatinine are within reference range. Performed By: #### 1 759, 19820 #### [facility] [address] [place] [address] [employer] Equipment Operator: Katarzyna Khan #### 5363, 7600, 496 #### [facility] [address], [address] [place] [address] [employer] Equipment Operator: Casey Chi MD Calcium [Mass/Vol] 9.2 mg/dL Normal 8.6-10.3 [facility] Comment on above: Performed By: #### 1 759, 71703 #### [facility] [address] [place] [address] [employer] Equipment Operator: Katarzyna Khan #### 5363, 7600, 496 #### [facility] [address], [address] [place] [address] [employer] Operator: Casey Chi MD Chloride [Moles/Vol] 105 mmol/L Normal 98-110 [facility] Comment on above: Performed By: #### 1 759, 11206 #### [facility] [address] [place] [address] [employer] Equipment Operator: Katarzyna Khan #### 5363, 7600, 496 #### [facility] [place] [address] [employer] Operator: Casey Chi MD CO2 [Moles/Vol] 26 mmol/L Normal 20-32 [facility] Comment on above: Performed By: #### 1 759, 57340 #### [facility] [address] [place] [address] [employer] Equipment Operator: Katarzyna Khan #### 5363, 7600, 496 #### [facility] [place] [address] [employer] Operator: Casey Chi MD Creatinine [Mass/Vol] 0.82 mg/dL Normal 0.70-1.28 [facility] Comment on above: Performed By: #### 1 759, 13591 #### [facility] [address] [place] [address] [employer] Operator: Katarzyna Khan #### 5363, 9550, 496 #### [facility] [address] [employer] Operator: Casey Chi MD GFR/1.73 sq M.predicted among non-blacks MDRD (S/P/Bld) [Vol rate/Area] 94 mL/min/{1.73_m2} Normal > OR = 60 [facility] Comment on above: Performed By: #### 1 759, 25731 #### [facility] [address] [place] [address] [employer] Equipment Operator: Katarzyna Khan #### 5363, 7600, 496 #### [facility] [address], [address] [place] [address] [employer] Equipment Operator: Casey Chi MD Globulin (S) [Mass/Vol] 2.6 g/dL Normal 1.9-3.7 [facility] Comment on above: Performed By: #### 1 759, 35124 #### [facility] [address] [employer] Equipment Operator: Katarzyna Khan #### 5363, 7600, 496 #### [facility] [address], [address] [place] [address] [employer] Equipment Operator: Casey Chi MD Glucose [Mass/Vol] 106 mg/dL High 65-99 [facility] Comment on above: Result Comment: Fasting reference interval For someone without known diabetes, a glucose value between 100 and 125 mg/dL is consistent with prediabetes and should be confirmed with a follow-up test. Performed By: #### 1 759, 08252 #### [facility] [address] [employer] Equipment Operator: Katarzyna Khan #### 5363, 7600, 496 #### [facility] [address], [address] [place] [address] [employer] Operator: Casey Chi MD Potassium [Moles/Vol] 4.1 mmol/L Normal 3.5-5.3 [facility] Comment on above: Performed By: #### 1 759, 99772 #### [facility] [address] [place] [address] [employer] Equipment Operator: Katarzyna Khan #### 5363, 7600, 496 #### [facility] [address], [address] [place] [address] [employer] Equipment Operator: Casey Chi MD Protein [Mass/Vol] 6.5 g/dL Normal 6.1-8.1 [facility] Comment on above: Performed By: #### 1 759, 14565 #### [facility] [address] [employer] Operator: Katarzyna Khan #### 5363, 7600, 496 #### [facility] [address], [address] [place] [address] [employer] Equipment Operator: Casey Chi MD Sodium [Moles/Vol] 139 mmol/L Normal 135-146 [facility] Comment on above: Performed By: #### 1 759, 54939 #### [facility] [address] [employer] Equipment Operator: Katarzyna Khan #### 5363, 7600, 496 #### [facility] [address], [address] [place] [address] [employer] Equipment Operator: Casey Chi MD Urea nitrogen [Mass/Vol] 16 mg/dL Normal 7-25 [facility] Comment on above: Performed By: #### 1 759, 03708 #### [facility] [address] [employer] Operator: Katarzyna Khan #### 5363, 7600, 496 #### [facility] [address], [address] [place] [address] [employer] Operator: Casey Chi MD HEMOGLOBIN A1con 06-15-2024 HEMOGLOBIN [...] diagnosis of diabetes in children. According to [place] Diabetes Association (ADA) guidelines, hemoglobin A1c <7.0% represents optimal control in non- diabetic patients. Different metrics may apply to specific patient populations. Standards of Medical Care in Diabetes(ADA). Performed By: #### 1 759, 24459 #### [facility] [address] [place], [place] [phone] [employer] Operator: Katarzyna Khan #### 5363, 7600, 496 #### [facility] [address], [address] [place] [address] [employer] Equipment Operator: Casey Chi MD LIPID PANEL, [facility] 12-1 Cholesterol [Mass/Vol] 172 mg/dL Normal <200 [facility] Comment on above: Order Comment: FASTI NG:YES FASTING: YES Performed By: #### 1 759, 48893 #### [facility] [address] [place], [place] [phone] [employer] Operator: Katarzyna Khan #### 5363, 7600, 496 #### [facility] [address], [address] [place] [address] [employer] Operator: Casey Chi MD Cholesterol in HDL [Mass/Vol] 32 mg/dL Low > OR = 40 [facility] Comment on above: Order Comment: FASTI NG:YES FASTING: YES Performed By: #### 1 759, 87667 #### [facility] [address] [place], [place] [phone] [employer] Equipment Operator: Katarzyna Khan #### 5363, 7600, 496 #### [facility] [address], [address] [place] [address] [employer] Equipment Operator: Casey Chi MD Cholesterol in LDL [Mass/Vol] 100 mg/dL High [facility] Comment on above: Order Comment: FASTI NG:YES FASTING: YES Result Comment: Refe rence range: <100 Desirable range <100 mg/dL for primary prevention; <70 mg/dL for patients with CHD or diabetic patients with > or = 2 CHD risk factors. LDL-C is now calculated using the Humberto-Mcguire calculation, which is a validated novel method providing better accuracy than the Friedewald equation in the estimation of LDL-C. Humberto MOORE et al. LULU. 2013;310(36): 4960-1434 (http://education.DataPop/faq/TBZ391) Performed By: #### 1 759, 10383 #### [facility] [address] [place], [place] [phone] [employer] Operator: Katarzyna Khan #### 5363, 7600, 496 #### [facility] [address], [address] [place] [address] [employer] Equipment Operator: Casey Chi MD Cholesterol.total/ Cholesterol in HDL [Mass ratio] 5.4 {ratio} High <5.0 [facility] Comment on above: Order Comment: FASTI NG:YES FASTING: YES Performed By: #### 1 759, 59881 #### [facility] [address] [employer] Operator: Katarzyna Khan #### 5363, 7600, 496 #### [facility] [address], [address] [place] [address] [employer] Operator: Casey Chi MD NON HDL CHOLESTEROL 140 mg/dL (calc) High <130 [facility] Comment on above: Order Comment: FASTI NG:YES FASTING: YES Result Comment: For patients with diabetes plus 1 major ASCVD risk factor, treating to a non-HDL-C goal of <100 mg/dL (LDL-C of <70 mg/dL) is considered a therapeutic option. Performed By: #### 1 759, 29149 #### [facility] [address] [place] [address] [employer] Operator: Katarzyna Khan #### 5363, 7600, 496 #### [facility] [address], [address] [place] [address] [employer] Operator: Casey Chi MD Triglyceride [Mass/Vol] 299 mg/dL High <150 [facility] Comment on above: Order Comment: FASTI NG:YES FASTING: YES Result Comment: If a non-fasting specimen was collected, consider repeat triglyceride testing on a fasting specimen if clinically indicated. Fabiola et al. J. of Clin. Lipidol. 2015;9:129-169. Performed By: #### 1 759, 60990 #### [facility] [address] [place] [address] [employer] Operator: Katarzyna Khan #### 5363, 7600, 496 #### [facility] [address], [address] [place] [address] [employer] Operator: Casey Chi MD PSA, TOTALon 06-15-2024 PSA, TOTAL 0.43 ng/mL Normal < OR = 4.00 [facility] Comment on above: Result Comment: The total PSA value from this assay system is standardized against the WHO standard. The test result will be approximately 20% lower when compared to the equimolar-standardized total PSA ([place]ee [place]). Comparison of serial PSA results should be interpreted with this fact in mind. This test was performed using the Siemens chemiluminescent method. Values obtained from different assay methods cannot be used interchangeably. PSA levels, regardless of value, should not be interpreted as absolute evidence of the presence or absence of disease. Performed By: #### 1 759, 46597 #### [facility] [address] [place] [address] [employer] Operator: Katarzyna Khan #### 5363, 7600, 496 #### [facility] [address], [address] [place] [address] [employer] Operator: Casey Chi MD XR Hip - left [...] Unremarkable left total hip arthroplasty. Jose Hernández EMT B-SOFTWARE INTEGRATION DEVELOPER [facility] Study observation (narrative) [facility] XR HIP LT 2-3 VIEWS W [...] Delcid MD on 05/03/2024 10:26 AM Normal [facility] XR Hip - left 3 Viewson 03-28 Imaging Result: April 06, 2024 x-rays AP and lateral of the left hip demonstrate joint space collapse with subchondral sclerosis and osteophyte formation consistent with arthritis. Impression: Arthritis of the left hip Amauri Blair D.O. [facility] XR Hip - left 3 Viewson 03-28 Radiology Study observation (narrative) [facility] BASIC METABOLIC PANLon 04-04 Anion gap [Moles/Vol] 9 mmol/L Normal 5-15 [facility] Comment on above: Performed By: #### C BCA, BMP #### [facility] ([id number]) [address] [place] [address] Calcium [Mass/Vol] 9.8 mg/dL Normal 8.5-10.5 [facility] Comment on above: Performed By: #### C BCA, BMP #### [facility] ([id number]) [address] [place] [address] Chloride [Moles/Vol] 103 mmol/L Normal 98-109 [facility] Comment on above: Performed By: #### C BCA, BMP #### [facility] ([id number]) [address] [place] [address] CO2 [Moles/Vol] 27 mmol/L Normal 22-32 [facility] Comment on above: Performed By: #### C BCA, BMP #### [facility] ([id number]) [address] [place] [address] Creatinine [Mass/Vol] 0.89 mg/dL Normal 0.60-1.30 [facility] [facility] Comment on above: Result Comment: METH OD TRACEABLE TO IDMS STANDARD Performed By: #### C SHERITA, BMP #### [facility] ([id number]) [address], [address] [place] [address] eGFR (CKD-EPI) NON-RACE DEPENDENT >90 Normal >59 [facility] Comment on above: Result Comment: Reported eGFR is based on the CKD-EPI 2020 equation that does not use a race coefficient. Performed By: #### C SHERITA, BMP #### [facility] ([id number]) [address] [place] [address] Glucose [Mass/Vol] 101 mg/dL High 65-99 [facility] Comment on above: Performed By: #### Manuela MAGALLON, BMP #### [facility] ([id number]) [address], [address] [place] [address] Potassium [Moles/Vol] 4.1 mmol/L Normal 3.5-5.0 [facility] Comment on above: Performed By: #### C SHERITA, BMP #### [facility] ([id number]) [address] [place] [address] Sodium [Moles/Vol] 139 mmol/L Normal 134-146 [facility] Comment on above: Performed By: #### Manuela MAGALLON, BMP #### [facility] ([id number]) [address] [place] [address] Urea nitrogen [Mass/Vol] 19 mg/dL Normal 5-27 [facility] Comment on above: Performed By: #### Manuela BCA, BMP #### [facility] ([id number]) [address] [place] [address] Basic Metabolic Panelon 10-0 Anion gap [Moles/Vol] 9 mmol/L 5 - 15 mmol/L [facility] Calcium [Mass/Vol] 9.8 mg/dL 8.5 - 10. 5 mg/dL [facility] Chloride [Moles/Vol] 103 mmol/L 98 - 109 mmol/L [facility] CO2 [Moles/Vol] 27 mmol/L 22 - 32 mmol/L [facility] Creatinine [Mass/Vol] 0.89 mg/dL 0.60 - 1.30 mg/dL [facility] Comment on above: METHOD TRACEABLE TO IDCT STANDARD eGFR (CKD-EPI)non-race dependent - PINF [facility] Comment on above: Reported eGFR is based on the CKD-EPI 2020 equation that does not use a race coefficient. Glucose [Mass/Vol] 101 mg/dL High 65 - 99 mg/dL [facility] Interpretation and review of laboratory results Abnormal [facility] Potassium [Moles/Vol] 4.1 mmol/L 3.5 - 5.0 mmol/L [facility] Sodium [Moles/Vol] 139 mmol/L 134 - 146 mmol/L [facility] Urea nitrogen [Mass/Vol] 19 mg/dL 5 - 27 mg/dL [facility] CBC AND AUTO DIFFon 04-04-20 24 ABSOLUTE BASOPHIL 0.0 X10E9/L Normal 0.0-0.2 [facility] Comment on above: Performed By: #### C BCA, BMP #### [facility] ([id number]) [address] [place] [address] ABSOLUTE NEUTROPHIL 4.6 X10E9/L Normal 1.5-6.6 [facility] Comment on above: Performed By: #### C BCA, BMP #### [facility] ([id number]) [address] [place] [address] Basophils/100 WBC (Bld) 0.4 % Normal [facility] Comment on above: Performed By: #### C BCA, BMP #### [facility] ([id number]) [address] [place] [address] Eosinophils (Bld) [#/Vol] 0.1 10*3/uL Normal 0.0-0.4 [facility] Comment on above: Performed By: #### C SHERITA, BMP #### [facility] ([id number]) [address] [place] [address] Eosinophils/100 WBC (Bld) 1.8 % Normal [facility] Comment on above: Performed By: #### C SHERITA, BMP #### [facility] ([id number]) [address] [facility] [address] [place] [address] Erythrocyte distribution width (RBC) [Ratio] 15.1 % High 11.5-15.0 [facility] Comment on above: Performed By: #### C SHERITA, BMP #### [facility] ([id number]) [address] [facility] [address] [place] [address] Hematocrit (Bld) [Volume fraction] 36.7 % Low 39-49 [facility] Comment on above: Performed By: #### C SHERITA, BMP #### [facility] ([id number]) [address] [facility] [address] [place] [address] Hemoglobin (Bld) [Mass/Vol] 12.5 g/dL Low 13.0-17.0 [facility] Comment on above: Performed By: #### C SHERITA, BMP #### [facility] ([id number]) [address] [place] [address] Lymphocytes (Bld) [#/Vol] 1.4 10*3/uL Normal 1.0-3.5 [facility] Comment on above: Performed By: #### C BCA, BMP #### [facility] ([id number]) [address] [address] [place] [address] Lymphocytes/100 WBC (Bld) 21.3 % Normal [facility] Comment on above: Performed By: #### C SHERITA, BMP #### [facility] ([id number]) [address] [place] [address] MCH (RBC) [Entitic mass] 30.1 pg Normal 27-34 [facility] Comment on above: Performed By: #### Manuela MAGALLON, BMP #### [facility] ([id number]) [address] [place] [address] MCHC (RBC) [Mass/Vol] 34.0 g/dL Normal 32-36 [facility] Comment on above: Performed By: #### C SHERITA, BMP #### [facility] ([id number]) [address] [place] [address] MCV (RBC) [Entitic vol] 89 fL Normal 80-100 [facility] Comment on above: Performed By: #### Manuela MAGALLON, BMP #### [facility] ([id number]) [address] [place] [address] Monocytes (Bld) [#/Vol] 0.6 10*3/uL Normal 0-0.9 [facility] Comment on above: Performed By: #### Manuela MAGALLON, BMP #### [facility] ([id number]) [address] [place] [address] Monocytes/100 WBC (Bld) 8.6 % Normal [facility] Comment on above: Performed By: #### Manuela MAGALLON, BMP #### [facility] ([id number]) [address] [place] [address] Neutrophils/100 WBC (Bld) 67.9 % Normal [facility] Comment on above: Performed By: #### Manuela MAGALLON, BMP #### [facility] ([id number]) [address] [place] [address] Platelet mean volume (Bld) [Entitic vol] 8.0 fL Normal 7-12 [facility] Comment on above: Performed By: #### C SHERITA, BMP #### [facility] ([id number]) [address] [place] [address] Platelets (Bld) [#/Vol] 205 10*3/uL Normal 150-450 [facility] Comment on above: Performed By: #### Manuela MAGALLON, BMP #### [facility] ([id number]) [address] [place] [address] RBC COUNT 4.14 X10E12/L Normal 4.10-5.70 [facility] Comment on above: Performed By: #### Manuela MAGALLON, BMP #### [facility] ([id number]) [address] [place] [address] WBC (Bld) [#/Vol] 6.7 10*3/uL Normal 4.0-11.0 [facility] Comment on above: Performed By: #### Manuela MAGALLON, BMP #### [facility] ([id number]) [address] [place] [address] CBC auto differentialon 10-0 -2023 Basophils (Bld) [#/Vol] 0.0 10*3/uL [facility] Basophils/100 WBC (Bld) 0.4 % [facility] Eosinophils (Bld) [#/Vol] 0.1 10*3/uL [facility] Eosinophils/100 WBC (Bld) 1.8 % [facility] Erythrocyte distribution width (RBC) [Ratio] 15.1 % High 11.5 - 15.0 % [facility] Hematocrit (Bld) [Volume fraction] 36.7 % Low 39 - 49 % [facility] Hemoglobin (Bld) [Mass/Vol] 12.5 g/dL Low 13.0 - 17.0 g/dL [facility] Interpretation and review of laboratory results Abnormal [facility] Lymphocytes (Bld) [#/Vol] 1.4 10*3/uL [facility] Lymphocytes/100 WBC (Bld) 21.3 % [facility] MCH (RBC) [Entitic mass] 30.1 pg 27 - 34 pg [facility] MCHC (RBC) [Mass/Vol] 34.0 g/dL 32 - 36 g/dL [facility] MCV (RBC) [Entitic vol] 89 fL 80 - 100 fL [facility] Monocytes (Bld) [#/Vol] 0.6 10*3/uL [facility] Monocytes/100 WBC (Bld) 8.6 % [facility] Neutrophils (Bld) [#/Vol] 4.6 10*3/uL [facility] Neutrophils/100 WBC (Bld) 67.9 % [facility] Platelet mean volume (Bld) [Entitic vol] 8.0 fL 7 - 12 fL [facility] Platelets (Bld) [#/Vol] 205 10*3/uL [facility] RBC (Bld) [#/Vol] 4.14 10*6/uL [facility] WBC corrected for nucl RBC Auto (Bld) [#/Vol] 6.7 [facility] ECG 12 leadon 04-04-2024 [facility]AC[facility]AST[facility] Ambulatory Visit Summaryon 0 02-07-2024 [...] Strength 500 mg oral tablet) acetaminophen-hydroco done ([place] 325 mg-5 mg oral tablet) ascorbic acid [...] Appointments Follow Up with PAMELA BAER, FEROZ Lopze When: Where: [facility] [address], [place] [address]- Medications What How Much When Instructions Unchanged [...] if questions or concerns Unchanged acetaminophen-hydroco done ([place] 325 mg-5 mg oral tablet) 1 Tablets [...] 49 ye (more content not included)... Normal [facility] Urology Office/Clinic Noteon 02-07-2024 Urology Office/Clinic [...] [facility]rology [address], [place] [address]- Additional Instructions: 1 yr Patient Education Benign [...] tablet, 200 mg= 1 tab(s), Oral, q24hr [place] 325 mg-5 mg oral tablet, 1 tab(s), [...] 1 c (more content not included)... Normal [facility] Comment on above: Result Comment: Elec [...] right total hip replacement Amauri Blair D.O. [facility] Radiology Study observation (narrative) [facility] XR Hip - right 3 ViewsOrdere d By: Charissa Blair on 08-09-2023 [facility] [employer] Work Phone: ABO Rh Repeaton 07-07-2023 [...] Delcid MD on 07/07/2023 11:06 AM Normal [facility] XR Pelvis and Hip - right 2 Viewson 07-07-2023 XR HIP RT 2-3 VIEWS W OR WO PELVIS HISTORY: Hip replacement. COMPARISON: None. IMPRESSION: 1. Hip prosthesis noted without visible acute complication Finalized by Price Delcid MD on 07/07/2023 11:06 AM [employer] Price Delcid MD - 07/07/2023 XR HIP RT 2-3 VIEWS W OR WO PELVIS HISTORY: Hip replacement. COMPARISON: None. IMPRESSION: 1. Hip prosthesis noted without visible acute complication Finalized by Price Delcid MD on 07/07/2023 11:06 AM [employer] Radiology Study observation (narrative) [employer] [facility] XR Pelvis and Hip - right 2 ViewsOrdered By: Price Delcid on 07-07-2023 [email or web address] Work Phone: CNOVon 04-13-2023 [facility] LAWSON VELA ([id number]) 1955 M [facility] Date Time Provider Department 04/13/23 11:00 AM LAILA LEWIS [facility] During your visit today, we recorded the [...] week. 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 [facility] XR lumbar spine 6V w bending on 12-17-2022 XR lumbar spine 6V w bending [facility] [address] XRay Report Signed Patient: Lawson Vela MR#: [id number] : 1955 Acct:[id number] Age/Sex: 67 / M ADM Date: 12/17/22 Loc: XD Room: Type: [facility] Attending Dr: Erica Xiong NP-C Copies to: [...] Cobian Jr., D.O.12/17/2022 3:16 PM Dictation Location: [facility]--15 Transcribed By: [facility] 12/17/22 1516 Dictated By: Lenny Cobian Jr, DO 12/17/22 1514 Signed By: 12/17/22 1516 Normal [facility] XR lumbar spine 6V w bending [facility] [employer] Other XR lumbar spine 6V w bending [facility] [employer] Other XR lumbar spine 6V w bending [address] [place] [address] [employer] Other XR lumbar spine 6[place] [address] [employer] Other XR lumbar spine 6V w bending XRay Report [employer] Other XR lumbar spine 6V w bending Signed [employer] Other XR lumbar spine 6V w bending Patient: Lawson Vela MR#: [id number] [employer] Other XR lumbar spine 6V w bending : 1955 Acct:[id number] [employer] Other XR lumbar spine 6V w bending Age/Sex: 67 / M ADM Date: 12/17/22 [employer] Other XR lumbar spine 6V w bending Loc: XD Room: Type: [facility] [employer] Other XR lumbar spine 6V w bending Attending Dr: Erica Xiong CONTRACTS REPRESENTATIVE-C [employer] Other XR lumbar spine 6V w bending Copies to: Erica Xiong CONTRACTS REPRESENTATIVE-C [employer] Other XR lumbar spine 6V w bending Ordering Provider: Erica Xiong CONTRACTS REPRESENTATIVE-C [employer] Other XR lumbar spine 6V w bending Date of Service: 12/17/22 [employer] Other XR lumbar spine 6V w bending XR/XR lumbar spine 6V w bending: M54.16 [employer] Other XR lumbar spine 6V w bending LUMBAR SPINE - 6 views [employer] Other XR lumbar spine 6V w bending CLINICAL HISTORY: Right leg pain and numbness that radiates to toes [employer] Other XR lumbar spine 6V w bending COMPARISON: None [employer] Other XR lumbar spine 6V w bending FINDINGS: Vertebral body heights appear maintained. Diffuse endplate and facet joint degenerative [employer] Other XR lumbar spine 6V w bending changes. Mild diffuse disc space narrowing with relative sparing of L5-S1. No pathological motion [employer] Other XR lumbar spine 6V w bending on flexion or extension views. Limited sidebending. [employer] Other XR lumbar spine 6V w bending XR/XR lumbar spine 6V w bending [employer] Other XR lumbar spine 6V w bending IMPRESSION: [employer] Other XR lumbar spine 6V w bending DEGENERATIVE CHANGES OF THE LUMBAR SPINE WITH MILD DIFFUSE DISC SPACE NARROWING WITH RELATIVE [employer] Other XR lumbar spine 6V w bending SPARING OF L5-S1. [employer] Other XR lumbar spine 6V w bending Impression dictated by: Lenny Cobian Jr. DFabioOFabio12/17/2022 3:16 PM [employer] Other XR lumbar spine 6V w bending Dictation Location: [place] [address] [employer] Other XR lumbar spine 6V w bending Transcribed By: PWS 12/17/22 1516 [employer] Other XR lumbar spine 6V w bending Dictated By: Lenny Cobian Jr, 12/17/22 2899 [employer] Other XR lumbar spine 6V w bending Signed By: [employer] Other XR lumbar spine 6V w bending 12/17/22 2402 [employer] Other XR HIPS TRENT 3_4V WO PELVISon [...] by: DEVIN KNAPP Date: 2022-11-13 13:07 Normal [facility] MRI Lumbar Spine w/oon 05-01 [...] by YASMANY ARAYA on 05/01/2022 1217 Normal [facility] XR Orbits for MRIon 04-27-20 XR Orbits for MRI CLINICAL HISTORY: Prescreening for MRI. COMPARISON: None. RESULT: No radiopaque foreign bodies. No acute osseous findings. IMPRESSION: No radiopaque foreign bodies. Report reported and signed by Javad Dickens on 04/27/2022 1540 Normal [facility] XR Spine Lumbar 4+ Views*on 04-06-2022 [...] by Lenny Cook on 04/06/2022 1106 Normal [facility] Specialist Vital Signs Date Time Vital Sign Value Performing Clinician Facility 10-25-2024 10:57-0400 Body height 185.4 cm Javad Donato MD Work Phone: [facility] 10-25-2024 10:57-0400 Body mass index (BMI) [Ratio] 38.52 kg/m2 Javad Donato MD Work Phone: [facility] 10-25-2024 10:57-0400 Body weight 132.45 kg Javad Donato MD Work Phone: [facility] 10-25-2024 10:57-0400 Diastolic blood pressure 76 mm[Hg] Javad Donato MD Work Phone: [facility] 10-25-2024 10:57-0400 Heart rate 82 /min Javad Donato MD Work Phone: [facility] 10-25-2024 10:57-0400 SaO2% (BldA) [Mass fraction] 95 % Javad Donato MD Work Phone: [facility] 10-25-2024 10:57-0400 Systolic blood pressure 130 mm[Hg] Javad Donato MD Work Phone: [facility] 07-27-2024 10:26-0500 Body height 185.4 cm Alma HERNANDEZ Work Phone: [facility] 07-27-2024 10:26-0500 Body mass index (BMI) [Ratio] 38.34 kg/m2 Alma Mcclendon PA Work Phone: [facility] 07-27-2024 10:26-0500 Body temperature 97.5 [degF] Alma Mcclendon PA Work Phone: [facility] 07-27-2024 10:26-0500 Body weight 131.81 kg Alma Mcclendon PA Work Phone: [facility] 07-27-2024 10:26-0500 Diastolic blood pressure 74 mm[Hg] Alma Hemmer PA Work Phone: [facility] 07-27-2024 10:26-0500 Heart rate 88 /min Alma Hemmer PA Work Phone: [facility] 07-27-2024 10:26-0500 Respiratory rate 18 /min Alma Hemmer PA Work Phone: [facility] 07-27-2024 10:26-0500 SaO2% (BldA) [Mass fraction] 95 % Alma Hemmer PA Work Phone: [facility] 07-27-2024 10:26-0500 Systolic blood pressure 128 mm[Hg] Alma Hemmer PA Work Phone: [facility] 06-14-2024 09:36-0500 Body height 185.4 cm Javad Donato MD Work Phone: [facility] 06-14-2024 09:36-0500 Body mass index (BMI) [Ratio] 37.6 kg/m2 Javad Donato MD Work Phone: [facility] 06-14-2024 09:36-0500 Body weight 129.28 kg Javad Donato MD Work Phone: [facility] 06-14-2024 09:36-0500 Diastolic blood pressure 70 mm[Hg] Javad Donato MD Work Phone: [facility] 06-14-2024 09:36-0500 Heart rate 98 /min Javad Donato MD Work Phone: [facility] 06-14-2024 09:36-0500 SaO2% (BldA) [Mass fraction] 97 % Javad Donato MD Work Phone: [facility] 06-14-2024 09:36-0500 Systolic blood pressure 126 mm[Hg] Javad Donato MD Work Phone: [facility] 04-17-2024 13:49-0400 Body height 185.4 cm Javad Donato MD Work Phone: [facility] 04-17-2024 13:49-0400 Body mass index (BMI) [Ratio] 37.6 kg/m2 Javad Donato MD Work Phone: [facility] 04-17-2024 13:49-0400 Body weight 129.28 kg Javad Donato MD Work Phone: [facility] 04-17-2024 13:49-0400 Diastolic blood pressure 68 mm[Hg] Javad Donato MD Work Phone: [facility] 04-17-2024 13:49-0400 Heart rate 96 /min Javda Donato MD Work Phone: [facility] 04-17-2024 13:49-0400 SaO2% (BldA) [Mass fraction] 98 % Javad Donato MD Work Phone: [facility] 04-17-2024 13:49-0400 Systolic blood pressure 128 mm[Hg] Javad Donato MD Work Phone: [facility] 04-06-2024 11:31-0400 Body height 185.4 cm Charissa Blair DO Work Phone: [facility] 04-06-2024 11:31-0400 Body mass index (BMI) [Ratio] 38.16 kg/m2 Charissa Blair DO Work Phone: [facility] 04-06-2024 11:31-0400 Body weight 131.18 kg Charissa Blair DO Work Phone: [facility] 04-04-2024 09:12-0400 Body height 185.4 cm [facility] 04-04-2024 09:12-0400 Body mass index (BMI) [Ratio] 37.34 kg/m2 [facility] 04-04-2024 09:12-0400 Body weight 128.37 kg [facility] 1 [facility] 02-17-2024 10:18-0400 Body height 185.4 cm Alma HERNANDEZ Work Phone: [facility] 02-17-2024 10:18-0400 Body mass index (BMI) [Ratio] 38.26 kg/m2 Alma Hemmer PA Work Phone: [facility] 02-17-2024 10:18-0400 Body weight 131.54 kg Alma Hemmer PA Work Phone: [facility] 02-17-2024 10:18-0400 Diastolic blood pressure 78 mm[Hg] Alma Hemmer PA Work Phone: [facility] 02-17-2024 10:18-0400 Heart rate 82 /min Alma Hemmer PA Work Phone: [facility] 02-17-2024 10:18-0400 SaO2% (BldA) [Mass fraction] 96 % Alma Hemmer PA Work Phone: [facility] 02-17-2024 10:18-0400 Systolic blood pressure 136 mm[Hg] Alma Castellanomer PA Work Phone: [facility] 02-07-2024 10:23-0400 Blood Pressure Location Mac SANTIAGO [facility] 02-07-2024 10:23-0400 Body temperature 98.6 [degF] Mac SANTIAGO [facility] 02-07-2024 10:23-0400 Diastolic blood pressure 82 mm[Hg] Mac SANTIAGO [facility] 02-07-2024 10:23-0400 Heart rate 75 /min Mac SANTIAGO [facility] 02-07-2024 10:23-0400 Respiratory rate 16 /min Mac SANTIAGO [facility] 02-07-2024 10:23-0400 Systolic blood pressure 132 mm[Hg] Mac SANTIAGO [facility] 07-07-2023 12:48-0500 Diastolic blood pressure 85 mm[Hg] Charissa Blair DO Work Phone: [employer] 07-07-2023 12:48-0500 Heart rate 88 /min Charissa Blair DO Work Phone: [employer] 07-07-2023 12:48-0500 Respiratory rate 22 /min Charissa Blair DO Work Phone: [employer] 07-07-2023 12:48-0500 SaO2% (BldA) [Mass fraction] 90 % Charissa Blair DO Work Phone: [employer] 07-07-2023 12:48-0500 Systolic blood pressure 134 mm[Hg] Charissa Blair DO Work Phone: [employer] 07-07-2023 10:35-0500 Body temperature 97.3 [degF] Charissa Blair DO Work Phone: [employer] 07-07-2023 06:25-0500 Body height 185.4 cm Charissa Blair DO Work Phone: [employer] 07-07-2023 06:25-0500 Body mass index (BMI) [Ratio] 36.41 kg/m2 Charissa Blair DO Work Phone: [employer] 07-07-2023 06:25-0500 Body weight 125.19 kg Charissa Blair DO Work Phone: [employer] 12-17-2022 13:00-0400 Body height 182.88 cm Erica Xiong Other [employer] Other 12-17-2022 13:00-0400 Body mass index (BMI) [Ratio] 38.51 kg/m2 Erica Xiong Other [employer] Other 12-17-2022 13:00-0400 Body weight 128.82 kg rEica Xiong Other [employer] Other 12-17-2022 13:00-0400 Diastolic blood pressure 88 mm[Hg] Erica Xiong Other [facility] [employer] Other 12-17-2022 13:00-0400 Systolic blood pressure 146 mm[Hg] Erica Xiong Other [facility] [employer] Other 06-01-2022 11:29-0500 Blood Pressure Location Macmichelle SANTIAGO [facility] 06-01-2022 11:29-0500 Diastolic blood pressure 76 mm[Hg] Mac SANTIAGO [facility] 06-01-2022 11:29-0500 Heart rate 70 /min Amc SANTIAGO [facility] 06-01-2022 11:29-0500 Respiratory rate 16 /min Macmichelle SANTIAGO [facility] 06-01-2022 11:29-0500 Systolic blood pressure 128 mm[Hg] Mac SANTIAGO [facility] 02-16-2022 10:28-0400 Blood Pressure Location Mac SANTIAGO [facility] 02-16-2022 10:28-0400 Diastolic blood pressure 84 mm[Hg] Mac SANTIAGO [facility] 02-16-2022 10:28-0400 Heart rate 68 /min Mac SANTIAGO [facility] 02-16-2022 10:28-0400 Respiratory rate 16 /min Mac SANTIAGO [facility] 02-16-2022 10:28-0400 Systolic blood pressure 136 mm[Hg] Mac SANTIAGO [facility] Encounters Encounter Date Encounter Type Care Provider Facility Start: 02-05-2025 ambulatory Mac Gentilei ty:[facility] [place] Start: 11-29-2024 End: 11-29-2024 ambulatory ALMA MCCLENDON Not Available Start: 11-27-2024 End: 11-27-2024 ambulatory Lidia Fletcher MD Facility:[facility] Start: 11-06-2024 End: 11-06-2024 ambulatory Lidia Fletcher MD Facility:[facility] Start: 10-30-2024 End: 10-30-2024 Bamboo flowsheet Jose Hernández CONTRACTS REPRESENTATIVE Work Phone: [facility] Start: 10-30-2024 End: 10-30-2024 Bamboo flowsheet Jose Hernández CONTRACTS REPRESENTATIVE Work Phone: [facility] Start: 10-30-2024 End: 10-30-2024 Office outpatient visit 15 minutes Jose Hernández CONTRACTS REPRESENTATIVE Work Phone: [facility] Comment on [...] 07-31-2024 End: 07-31-2024 Bamboo flowsheet Jose Hernández CONTRACTS REPRESENTATIVE Work Phone: [facility] Start: 07-31-2024 End: 07-31-2024 Bamboo flowsheet Jose Hernández CONTRACTS REPRESENTATIVE Work Phone: [facility] Start: 07-31-2024 End: 07-31-2024 Postop follow up visit related to original px Jose Hernández CONTRACTS REPRESENTATIVE Work Phone: [facility] Comment on above: S/P total left hip a rthroplasty (Primary Dx) Start: 07-31-2024 End: 07-31-2024 ambulatory JOSE HERNÁNDEZ Not Available Start: 07-27-2024 End: 07-27-2024 Bamboo flowsheet Alma Mcclendon PA Work Phone: [facility] Start: 07-27-2024 End: 07-27-2024 Bamboo flowsheet Alma Mcclendon PA Work Phone: [facility] Start: 07-27-2024 End: 07-27-2024 Office outpatient visit 15 minutes Alma HERNANDEZ Work Phone: [facility] Comment on above: Acute non-recurrent frontal sinusitis (Primary Dx); Herniated lumbar disc without myelopathy Start: 07-27-2024 End: 07-27-2024 ambulatory ALMA MCCLENDON Not Available Start: 07-21-2024 End: 07-21-2024 ambulatory Jeanna Mendiola [employer]UCK BENCH MECHANIC Work Phone: [facility] Comment on above: Left hip pain (Prima ry Dx); S/P total left hip arthroplasty Start: 07-14-2024 End: 07-14-2024 ambulatory Jeanna Mendiola TRUCK BENCH MECHANIC Work Phone: [facility] Comment on above: Left hip pain (Prima ry Dx); S/P total left hip arthroplasty Start: 07-12-2024 End: 07-12-2024 Bamboo flowsheet Jeanna Mendiola TRUCK BENCH MECHANIC Work Phone: [facility] Start: 07-12-2024 End: 07-12-2024 Bamboo flowshector Mendiola [employer]UCK BEN[employer] MECHANIC Work Phone: [facility] Start: 07-12-2024 End: 07-12-2024 ambulatory Jeanna Mendiola TRUCK BEN[employer] MECHANIC Work Phone: [facility] Comment on above: Left hip pain (Prima ry Dx); S/P total left hip arthroplasty Start: 07-07-2024 End: 07-07-2024 Bamboo flowshector Mendiola [employer]UCK BENCH MECHANIC Work Phone: [facility] Start: 07-07-2024 End: 07-07-2024 Bamboo mike Mendiola TRUCK BENCH MECHANIC Work Phone: [facility] Start: 07-07-2024 End: 07-07-2024 ambulatory Jeanna Mendiola TRUCK BENCH MECHANIC Work Phone: [facility] Comment on above: Left hip pain (Prima ry Dx); S/P total left hip arthroplasty Start: 07-06-2024 End: 07-06-2024 ambulatory YOSEF CHEEMA Not Available Start: 07-05-2024 End: 07-05-2024 ambulatory Jeanna Mendiola TRUCK BEN[employer] MECHANIC Work Phone: [facility] Comment on above: Left hip pain (Prima ry Dx); S/P total left hip arthroplasty Start: 07-03-2024 End: 07-03-2024 Bamboo flowsheet Jose Hernández CONTRACTS REPRESENTATIVE Work Phone: [facility] Start: 07-03-2024 End: 07-03-2024 Bamboo flowsheet Jose Hernández CONTRACTS REPRESENTATIVE Work Phone: [facility] Start: 07-03-2024 End: 07-03-2024 Postop follow up visit related to original px Jose Hernández CONTRACTS REPRESENTATIVE Work Phone: [facility] Comment on above: S/P total left hip a rthroplasty (Primary Dx) Start: 07-03-2024 End: 07-03-2024 ambulatory JOSE HERNÁNDEZ Not Available Start: 06-30-2024 End: 06-30-2024 Bamboo flowsheet Jeanna Mendiola TRUCK BEN[employer] MECHANIC Work Phone: [facility] Start: 06-30-2024 End: 06-30-2024 Bamboo flowsheet Jeanna Mendiola TRUCK BENCH MECHANIC Work Phone: [facility] Start: 06-30-2024 End: 06-30-2024 ambulatory Jeanna Mendiola TRUCK BENCH MECHANIC Work Phone: [facility] Comment on above: Left hip pain (Prima ry Dx); S/P total left hip arthroplasty Start: 06-26-2024 End: 06-26-2024 Bamboo flowsheet Kailey Tattersall TRUCK BENCH MECHANIC [facility] Start: 06-26-2024 End: 06-26-2024 Bamboo flowsheet Kailey Tattersall TRUCK BENCH MECHANIC [facility] Start: 06-26-2024 End: 06-26-2024 ambulatory Kailey Tattersall TRUCK BENCH MECHANIC [facility] Comment on above: Left [...] 06-12-2024 End: 06-12-2024 Bamboo flowsheet Jose Hernández CONTRACTS REPRESENTATIVE Work Phone: [facility] Start: 06-12-2024 End: 06-12-2024 Bamboo flowsheet Jose Hernández CONTRACTS REPRESENTATIVE Work Phone: [facility] Start: 06-12-2024 End: 06-12-2024 Postop follow up visit related to original px Jose Hernández CONTRACTS REPRESENTATIVE Work Phone: [facility] Comment on [...] up visit related to original px Charissa A Rossy DO Work Phone: [facility] Comment on above: S/P total left hip a rthroplasty (Primary Dx) Start: 05-09-2024 End: 05-09-2024 ambulatory CHARISSA BLAIR Not Available Start: 05-08-2024 End: 05-08-2024 Telephone encounter Jose Hernández CONTRACTS REPRESENTATIVE Work Phone: [facility] Start: 05-04-2024 End: 05-04-2024 Telephone encounter Charissa Blair DO Work Phone: [facility] Comment on above: Discharge Start: 05-03-2024 End: 05-03-2024 ambulatory CHARISSA Milton ROSSY [facility] Start: 05-02-2024 End: 05-02-2024 Refill Jose Hernández CONTRACTS REPRESENTATIVE Work Phone: [facility] Comment on [...] 04-06-2024 End: 04-06-2024 Bamboo flowsheet Jose Hernández CONTRACTS REPRESENTATIVE Work Phone: [facility] Start: 04-06-2024 End: 04-06-2024 Bamboo flowsheet Jose Hernández CONTRACTS REPRESENTATIVE Work Phone: [facility] Start: 04-06-2024 End: 04-06-2024 Office outpatient visit 40 minutes Charissa Blair DO Work Phone: [facility] Comment on above: Left hip pain; Arthritis of left hip Start: 04-06-2024 End: 04-06-2024 ambulatory CHARISSA BLAIR Not Available Start: 04-04-2024 End: 04-04-2024 Patient encounter procedure Pm Pre-Admission Testing 1 [facility] - Pre Admit Comment on above: Preop examination (P rimary Dx); Hypertension, unspecified type Start: 04-04-2024 End: 04-04-2024 Preprocedural examination done Pm 1 [facility] Start: 04-04-2024 End: 04-04-2024 ambulatory CHARISSA SOLIMANSTON [facility] Start: 03-15-2024 End: 03-15-2024 Telephone encounter Nagi Plata PT Work Phone: [facility] Start: 02-17-2024 End: 02-17-2024 Office outpatient visit 15 minutes Alma Mcclendon PA Work Phone: [facility] Comment on above: Acute pharyngitis, u nspecified etiology (Primary Dx) Start: 02-17-2024 End: 02-17-2024 ambulatory ALMA MCCLENDON Not Available Start: 02-07-2024 End: 02-07-2024 ambulatory Mac SANTIAGO Facility:[facility] Start: 02-07-2024 End: 02-07-2024 Patient encounter procedure Mac SANTIAGO [facility] Start: 01-27-2024 End: 01-27-2024 ambulatory CHARISSA BLAIR Not Available Start: 01-21-2024 End: 01-21-2024 ambulatory ALMA MCCLENDON Not Available Start: 12-16-2023 End: 12-16-2023 ambulatory CHARISSA BLAIR Not Available Start: 12-13-2023 End: 12-13-2023 ambulatory JOSE HERNÁNDEZ Not Available Start: 08-09-2023 Bamboo mike Don ht [employer] MECHANIC Work Phone: [facility] Start: 08-09-2023 Bamboo flowsheet Jeanna finney [employer] BEN[employer] MECHANIC Work Phone: [facility] Start: 08-09-2023 End: 08-09-2023 Postop follow up visit related to original px Jose Hernández CONTRACTS REPRESENTATIVE Work Phone: [facility] Comment on above: 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; Status post right hip replacement Start: 08-09-2023 End: 08-09-2023 ambulatory Jeanna Mendiola TRUCK BENCH MECHANIC Work Phone: [facility] Comment on above: Right hip pain (Prim billie Dx); Status post total hip replacement, right; Arthritis of right hip Start: 08-06-2023 End: 08-06-2023 ambulatory Jeanna Mendiola TRUCK BENCH MECHANIC Work Phone: [facility] Comment on above: Right hip pain (Prim billie Dx); Status post total hip replacement, right; Arthritis of right hip Start: 08-02-2023 Bamboo flowsheet Jeanna finney [employer]UCK BENCH MECHANIC Work Phone: [facility] Start: 08-02-2023 Bamboo flowsheet Jeanna finney TRUCK BENCH MECHANIC Work Phone: [facility] Start: 08-02-2023 End: 08-02-2023 ambulatory Jeanna Mendiola TRUCK BEN[employer] MECHANIC Work Phone: [facility] Comment on above: Right hip pain (Prim billie Dx); Status post total hip replacement, right; Arthritis of right hip Start: 07-29-2023 End: 07-29-2023 ambulatory Nagi Plata PT Work Phone: [facility] Comment on above: Right hip pain (Prim billie Dx); Status post total hip replacement, right Start: 07-08-2023 End: 07-08-2023 ambulatory DEVIN SAUL [facility] Start: 07-07-2023 End: 07-08-2023 ambulatory [facility] Start: 07-07-2023 End: 07-07-2023 ambulatory [facility] Start: 07-07-2023 End: 07-07-2023 Subsequent hospital visit by physician Charissa Blair DO Work Phone: [facility] - Surgery Start: 07-05-2023 End: 07-05-2023 ambulatory CHARISSA Rose [facility] Start: 07-05-2023 Encounter for other preprocedural examination CHARISSA [facility] Start: 04-13-2023 End: 04-13-2023 ambulatory LAILA LEWIS Facility:[facility] Start: 04-13-2023 End: 04-13-2023 Patient encounter procedure Laila Lewis PA-C Work Phone: [facility] [place] Comment on above: Spinal stenosis, lum bar region with neurogenic claudication (Primary Dx); Bilateral hip joint arthritis Start: 01-28-2023 Chart abstracting Camron Mix MD Work Phone: Neurology Start: 12-17-2022 End: 12-17-2022 Patient encounter procedure II Javad Donato Work Phone: [facility] [place] Work Phone: Start: 12-17-2022 End: 12-17-2022 ambulatory II Javad Donato Work Phone: [facility] Work Phone: Start: 12-17-2022 Encounter for other specified special examinations Erica Xiong [facility] Start: 12-17-2022 Office outpatient ne w [address] [facility] Start: 11-24-2022 End: 11-25-2022 ambulatory NARENDRANATH LAKSHMIPATHY . Facility:[facility] Start: 11-13-2022 End: 11-14-2022 ambulatory NARENDRANATH LAKSHMIPATHY . Facility:[facility] Start: 11-10-2022 End: 11-11-2022 ambulatory NARENDRANATH LAKSHMIPATHY . Facility:[facility] Start: 10-08-2022 End: 10-09-2022 ambulatory NARENDRANATH LAKSHMIPATHY . Facility:[facility] Start: 09-10-2022 End: 09-11-[address] ANTIONE HAWTHORNE . Facility:[facility] Start: 08-13-2022 Encounter for preprocedural cardiovascular examination DR ANTIONE HAWTHORNE . [facility] Start: 08-11-2022 End: 08-11-2022 [...] encounter procedure Mac SANTIAGO [facility] Start: 05-19-2022 End: 05-20-[address] ANTIONE HAWTHORNE . Facility:[facility] Start: 05-05-2022 End: 05-05-[address] ANTIONE HAWTHORNE . Facility:[facility] Start: 04-28-2022 End: 04-29-[address] ANTIONE HAWTHORNE . Facility:[facility] Start: 04-27-2022 End: 05-14-[address] JAVAD DONATO Facility:[facility] Start: 02-16-2022 End: 02-16-2022 Patient encounter procedure Mac SANTIAGO [facility] Procedures Date Procedure Procedure Detail Performing Clinician Start: 10-30-2024 Radex hip unilateral with pelvis 2-3 views Jose Hernández NP Work Phone: Start: 10-25-2024 Hemoglobin glycosyla [place] a1c Javad Donato MD Work Phone: Start: 06-12-2024 Radex hip unilateral with pelvis 2-3 views Jose Hernández CONTRACTS REPRESENTATIVE Work Phone: Start: 04-06-2024 Radex hip unilateral with pelvis 2-3 views Charissa Blair DO Work Phone: Start: 08-09-2023 Radex hip unilateral with pelvis 2-3 views Jose Hernández CONTRACTS REPRESENTATIVE Work Phone: Start: 07-07-2023 Radex hip unilateral [...] (2 - Td or Tdap) [facility] [employer] [facility] Start: 07-12-2027 Screening for malign ant neoplasm of colon [facility] Start: 06-14-2025 Medicare Annual Wellness (AWV) Medicare Annual Wellness (AWV) [facility] Start: 04-30-2025 End: 04-30-2025 Patient encounter procedure 04/30/2025 8:00 AM EST Office Visit [facility] [address] [place] [phone] Jose Hernández, CONTRACTS REPRESENTATIVE [address] [place] [address] [facility] Start: 04-26-2025 End: 04-26-2025 Patient encounter procedure 04/26/2025 9:00 AM EDT Office Visit [facility] [address] [place] [address] Javad Donato MD [address] [place] [address] [facility] Start: 04-04-2025 Adult BMI Screening Adult BMI Screen ing [facility] Start: 04-04-2025 Tobacco Screening Tobacco Screening [facility] Start: 10-30-2024 End: 10-30-2024 Patient encounter procedure [facility] Comment on above: Left hip pain Start: 10-25-2024 End: 10-25-2024 Patient encounter procedure 10/25/2024 10:45 AM EDT Office Visit [facility] [address] [place] [address] Javad Donato MD [address] [place] [address] Arrived [facility] Comment on above: Arrived Start: 10-23-2024 End: 10-23-2024 Patient encounter procedure 10/23/2024 10:00 AM EDT Office Visit [facility] [address] [place] [address] Javad Donato MD [address] [place] [address] [facility] Start: 07-31-2024 End: 07-31-2024 Patient encounter procedure [facility] Comment on above: Arrived Start: 07-27-2024 End: 07-27-2024 Patient encounter procedure 07/27/2024 10:30 AM EST Office Visit [facility] [address] [place] [address] Alma Mcclendon, PA [address] [place] [address] Arrived [facility] Comment on above: Arrived Start: 07-21-2024 End: 07-21-2024 ambulatory 07/21/2024 7:30 AM EST Treatment [facility] [address] [place] [phone] Jeanna Mendiola, TRUCK BENCH MECHANIC [address] [place] [address] [facility] Start: 07-14-2024 End: 07-14-2024 ambulatory [facility] Start: 07-12-2024 End: 07-12-2024 ambulatory [facility] Comment on above: Arrived Start: 07-07-2024 End: 07-07-2024 ambulatory 07/07/2024 7:30 AM EST Treatment [facility] [address] [place] [phone] Jeanna Mendiola, TRUCK BENCH MECHANIC [address] [place] [address] [facility] Start: 07-06-2024 End: 07-06-2024 Professional / ancillary services management 07/06/2024 8:00 AM EST Ancillary Procedure [facility] [address] [place] [phone] [facility] Start: 07-05-2024 End: 07-05-2024 ambulatory 07/05/2024 7:30 AM EST Treatment [facility] [address] [place] [phone] Jeanna Mendiola, TRUCK BENCH MECHANIC [address] [place] [address] [facility] Start: 07-03-2024 End: 07-03-2024 Patient encounter procedure [facility] Comment on above: Arrived Start: 06-30-2024 End: 06-30-2024 ambulatory [facility] Comment on above: Arrived Start: 06-29-2024 End: 06-29-2024 ambulatory 06/29/2024 7:30 AM EST Treatment [facility] [address] [place] [phone] Kailey Goldman PTA [facility] Start: 06-26-2024 End: 06-26-2024 ambulatory [facility] Comment on above: Arrived Start: 06-22-2024 End: 06-22-2024 Professional / ancillary services management 06/22/2024 3:15 PM EST Ancillary Procedure [facility] [address] [place] [address] [facility] Start: 06-20-2024 End: 06-20-2024 ambulatory 06/20/2024 7:00 AM EST Evaluation [facility] [address] [place] [phone] Nagi Plata, PT [address] [place] [address] [facility] Start: 06-14-2024 End: 06-14-2025 [...] type (CMS/HCC) Expected: 06/14/2024 (Approximate), Expires: 06/14/2025 [facility] Comment on above: Expected: 06/14/2024 (Approximate), Expires: 06/14/2025 Start: 06-14-2024 End: 06-14-2025 Hemoglobin A1c/Hemoglobin.total in Blood Hemoglobin A1c Lab Routine Benign essential hypertension (CMS/HCC) IGT (impaired glucose tolerance) Atherosclerosis of aorta (CMS/HCC) Class 2 severe obesity with serious comorbidity and body mass index (BMI) of 37.0 to 37.9 in adult, unspecified obesity type (CMS/HCC) Expected: 06/14/2024 (Approximate), Expires: 06/14/2025 [facility] Comment on above: Expected: 06/14/2024 (Approximate), Expires: 06/14/2025 Start: 06-14-2024 End: 06-14-2025 Lipid 1996 panel - Serum or Plasma Lipid panel Lab Routine Benign essential hypertension (CMS/HCC) IGT (impaired glucose tolerance) Atherosclerosis of aorta (CMS/HCC) Class 2 severe obesity with serious comorbidity and body mass index (BMI) of 37.0 to 37.9 in adult, unspecified obesity type (CMS/HCC) Expected: 06/14/2024 (Approximate), Expires: 06/14/2025 [facility] Comment on above: Expected: 06/14/2024 (Approximate), Expires: 06/14/2025 Start: 06-14-2024 End: 06-14-2025 Prostate specific Ag [Mass/volume] in Serum or Plasma PSA Lab Routine Screening for prostate cancer Expected: 06/14/2024 (Approximate), Expires: 06/14/2025 [facility] Work Phone: Comment on above: Expected: 06/14/2024 (Approximate), Expires: 06/14/2025 Start: 06-14-2024 End: 06-14-2025 US.doppler Lower extremity artery - bilateral Vascular US lower extremity arterial duplex bilateral Imaging Routine Claudication ([facility]) Expected: 06/14/2024, Expires: 06/14/2025 [facility] Comment [...] Visit [facility] [address] [place] [phone] Charissa Blair, DO [address] [place] [address] [facility] Start: 05-09-2024 End: 05-09-2024 Patient encounter procedure 05/09/2024 10:30 AM EST Office Visit [facility] [address] [place] [phone] Charissa Blair, DO [address] [place] [address] [facility] Start: 05-03-2024 End: 05-03-2024 Admission to same day surgery center 05/03/2024 7:45 AM EST - 05/03/2024 10:00 AM EST Surgery [facility] [address] [place] [address] Charissa Blair, DO [address] [place] [address] REPLACEMENT TOTAL JOINT HIP [89864 (CPT )] [facility] Comment on above: REPLACEMENT TOTAL BEKA INT HIP [33360 (CPT )] Start: 05-03-2024 End: 05-03-2024 Arthrp acetblr/prox fem prostc agrft/algrft REPLACEMENT TOTAL JOINT HIP left hip degenerative joint disease 05/03/2024 7:45 AM EST [place] [facility] Start: 05-03-2024 Subsequent hospital visit by physician 05/03/2024 7:45 AM EST Hospital Encounter [facility] Surgery [address] [place] [address] Charissa Blair, DO [address] [place] [address] [facility] Start: 05-03-2024 End: 05-03-2024 Patient encounter procedure 05/03/2024 7:30 AM EST Procedure Visit [facility] Charissa Blair, DO [address] [place] [address] [facility] Start: 04-24-2024 End: 03-06-2025 Crossmatch RBC Crossmatch RBC Blood Bank Routine Preop examination Hypertension, unspecified type Expected: 04/24/2024, Expires: 03/06/2025 [facility] [employer] [facility] Comment on above: Expected: 04/24/2024 , Expires: 03/06/2025 Start: 04-24-2024 End: 03-06-2025 Type and screen(includes indirect phill) Type and screen(includes indirect phill) Blood Bank Routine Preop examination Hypertension, unspecified type Expected: 04/24/2024, Expires: 03/06/2025 [employer] Work Phone: Comment on above: Expected: 04/24/2024 , Expires: 03/06/2025 Start: 04-17-2024 End: 04-17-2024 Patient encounter procedure [facility] Comment on above: Arrived Start: 04-06-2024 End: 04-06-2024 Patient encounter procedure [facility] Comment on above: Left hip pain; Arthritis of left hip Start: 03-08-2024 End: 03-08-2024 Patient encounter procedure 03/08/2024 11:15 AM EDT Office Visit [facility] [address] [facility] [address] [place] [phone] Javad Donato MD [address] [facility] [address] [place] [address] [facility] Start: 02-27-2024 Influenza vaccination [facility] Start: 09-20-2023 End: 09-20-2023 Patient encounter procedure 09/20/2023 10:30 AM EDT Office Visit [facility] [address] [place] [phone] Jose Hernández, CONTRACTS REPRESENTATIVE [address] [place] [address] [facility] Start: 08-27-2023 End: 08-27-2023 ambulatory 08/27/2023 9:30 AM EST Treatment [facility] [address] [place] [phone] Nagi Plata, PT [address] [place] [address] [facility] Start: 08-23-2023 End: 08-23-2023 ambulatory 08/23/2023 9:30 AM EST Treatment [facility] [address] [place] [phone] Jeanna Mendiola, TRUCK BENCH MECHANIC [address] [place] [address] [facility] Start: 08-20-2023 End: 08-20-2023 ambulatory 08/20/2023 9:30 AM EST Treatment [facility] [address] [place] [phone] Jeanna Mendiola, TRUCK BENCH MECHANIC [address] [place] [address] [facility] Start: 08-16-2023 End: 08-16-2023 ambulatory 08/16/2023 9:30 AM EST Treatment [facility] [address] [place] [phone] Jeanna Mendiola, TRUCK BENCH MECHANIC [address] [place] [address] [facility] Start: 08-13-2023 End: 08-13-2023 ambulatory 08/13/2023 9:30 AM EST Treatment [facility] [address] [place] [phone] Nagi Plata, PT [address] [place] [address] [facility] Start: 08-09-2023 End: 08-09-2023 Patient encounter procedure 08/09/2023 1:00 PM EST Office Visit [facility] [address] [place] [phone] Jose Hernández, CONTRACTS REPRESENTATIVE [address] [place] [address] [facility] Start: 08-09-2023 End: 08-09-2023 ambulatory [facility] Comment on above: Arrived Start: 08-06-2023 End: 08-06-2023 ambulatory 08/06/2023 9:30 AM EST Treatment [facility] [address] [place] [phone] Jeanna Mendiola, TRUCK BENCH MECHANIC [address] [place] [address] [facility] Start: 08-02-2023 End: 08-02-2023 ambulatory [facility] Comment on above: Arrived Start: 02-26-2023 Influenza vaccination C [facility] Start: 06-28-2022 ADVANCE DIRECTIVE DISCUSSION ADVANCE DIRECTIVE DISCUSSION [facility] Start: 06-28-2022 DEPRESSION ASSESSMENT DEPRESSION ASS ESSMENT [facility] Start: 2019 Abdominal aortic aneurysm screening Abdominal Aortic Aneurysm (AAA) Screen [facility] Start: 2019 Fall Risk Screening Fall Risk Screen ing [facility] Start: 2019 PNEUMOCOCCAL: 65+ (1 - PCV) PNEUMOCOCCAL: 65+ (1 - PCV) [facility] Start: 07-08-2015 Administration of varicella zoster vaccine Zoster (Shingles) Vaccine (2 of 3) [facility] Start: 07-08-2015 Shingrix Vaccine (2 of 3) Shingrix Vaccine (2 of 3) [facility] Start: 2014 RSV Vaccine (1 - 1-d ose 60+ series) RSV Vaccine (1 - 1-dose 60+ series) [facility] Start: 01-02-2004 SHINGRIX VACCINE (1 of 2) SHINGRIX VACCINE (1 of 2) [facility] Start: 1999 COLOGUARD (FIT-DNA) COLOGUARD (FIT-D NA) [facility] Start: 1999 Colonoscopy COLONOSCOPY [facility] Start: 1999 COLORECTAL CANCER SCREENING COLORECTAL CANCER SCREENING [facility] Start: [address] COLONOGRAPHY [facility] Start: 1999 DIABETES SCREEN DIABETES SCREEN [facility] Start: 1999 Diabetes Screening Diabetes Screenin g [facility] Start: 1999 FECAL OCCULT BLOOD FECAL OCCULT BLOO D [facility] Start: 1999 SIGMOIDOSCOPY SIGMOIDOSCOPY [facility] Start: 1989 Lipid 1996 panel - Serum or Plasma Lipid Screening [facility] Start: 1989 LIPID SCREEN LIPID SCREEN [facility] Start: 1973 Urine microalbumin profile [facility] Start: 01-02-1972 Adult BMI Follow Up Plan Adult BMI Follow Up Plan [facility] Start: 01-02-1972 HEPATITIS C SCREENING HEPATITIS C SC REENING [facility] Start: 1966 Depression Screening Depression Scre ening [facility] Start: 01-07-1955 COVID-19 VACCINE (#1) COVID-19 VACCI NE (#1) [facility] Start: 1954 Abdominal Aortic Aneurysm Screening Abdominal Aortic Aneurysm Screening [facility] Start: 1954 Medicare Annual Wellness Visit Medicare Annual Wellness Visit [facility] Start: 1954 Screening for malign ant neoplasm of colon [facility] End: 05-12-2024 XR HIP BILATERAL 5V PEL/AP/LAT EACH HIP XR HIP BILATERAL 5V PEL/AP/LAT EACH HIP Radiology Routine Bilateral hip joint arthritis 1 Occurrences starting 04/13/2023 until 05/12/2024 [facility] Work Phone: Comment on above: 1 Occurrences starti ng 04/13/2023 until 05/12/2024 [facility] Immunizations Immunization Date Immunization Notes Care Provider Estevan sorto 06-14-2024 Influenza, High-dose Seasonal, Quadrivalent, Preservative Free Javad Donato MD Work Phone: [facility] 05-18-2023 RSV, recombinant, protein subunit RSVpreF, adjuvant reconstitu, 120mcg/0.5mL, PF (Arexvy) Nagi Narendra PT Work Phone: [facility] Work Phone: 05-18-2023 tetanus toxoid, redu sri diphtheria toxoid, and acellular pertussis vaccine, adsorbed Nagi Narendra PT Work Phone: [facility] 05-17-2023 Influenza, High-dose Seasonal, Quadrivalent, Preservative Free Nagi Narendra PT Work Phone: [facility] 05-17-2023 influenza virus vaccine, unspecified formulation Nagi Narendra PT Work Phone: [facility] 04-03-2022 influenza, high dose seasonal, preservative-free Nagi Narendra PT Work Phone: [facility] 04-03-2022 Influenza, High-dose Seasonal, Quadrivalent, Preservative Free Nagi Narendra PT Work Phone: [facility] 04-03-2022 influenza virus vaccine, unspecified formulation Laila Maxim PA-C Work Phone: [facility] 05-21-2020 influenza virus vaccine, unspecified formulation Macmichelle SANTIAGO [facility] 05-21-2020 influenza, injectabl e, quadrivalent, contains preservative Nagi Narendra PT Work Phone: [facility] 05-21-2020 pneumococcal conjuga te vaccine, 13 valent Nagi Narendra PT Work Phone: [facility] 04-10-2020 influenza virus vaccine, unspecified formulation Mac SANTIAGO [facility] 05-03-2019 influenza, injectabl e, madin sancho canine kidney, preservative free Nagi Narendra PT Work Phone: [facility] 05-03-2019 pneumococcal polysaccharide vaccine, 23 valent Nagi Narendra PT Work Phone: [facility] 05-02-2018 influenza virus vaccine, unspecified formulation Macmichelle SANTIAGO [facility] 05-02-2018 seasonal influenza, intradermal, preservative free Nagi Narendra PT Work Phone: [facility] 06-07-2017 influenza virus vaccine, unspecified formulation Mac SANTIAGO [facility] 06-07-2017 influenza, injectabl e, quadrivalent, contains preservative Nagi Narendra PT Work Phone: [facility] 05-13-2015 zoster vaccine, live Nagi Sp collado PT Work Phone: [facility] 05-13-2015 zoster vaccine, unspecified formulation Pm 1 [facility] NEGATED: Highlighted row has not occurred!08-18-2021 SARS-CoV-2 (COVID-19) Ad26 vaccine, recombinant Mac SANTIAGO [facility] Payers Date Payer Category Payer Self-pay 2021 Private Health Insurance [employer] Member Subscriber Plan / Payer (Effective 2021-Present) Name: Lawson Vela Relation to Subscriber: Self Name: Lawson Vela Payer ID: Not on file Type: Not on file Address: [place] [id number] 2019 Unknown [id number] [id number]. [id number] 2018 Medicare [id number]. 1.13.159.2. [id number] 1959 Medicare [id number] 1959 Unknown [id number] 1954 Unknown [id number] 2.840.1.374520.3.579.2. 593 1954 Unknown [id number] .840.1.455832.3.579.2. 593 1954 Unknown [id number] 2.16.840.1.004111.3.579.2. 593 1954 Unknown [id number] 2.16.840.1.963115.3.579.2. 593 1954 Unknown [id number] 2.16.840.1.274739.3.579.2. 593 1954 Unknown [id number] 2.16.840.1.444173.3.579.2. 593 1954 Unknown [id number] 2.16.840.1.965454.3.579.2. 593 1954 Unknown [id number] 2.16.840.1.867497.3.579.2. 593 1954 Unknown [id number] 2.16.840.1.815923.3.579.2. 593 1954 Unknown [id number] 2.16.840.1.513907.3.579.2. 593 1954 Unknown [id number] 2.16.840.1.287891.3.579.2. 593 1954 Unknown [id number] 2.840.1.876291.3.579.2. 593 1954 Unknown [id number] 2.840.1.859420.3.579.2. 593 1954 Unknown [id number] 2.840.1.016755.3.579.2. 593 1954 Unknown [id number] 2.840.1.894388.3.579.2. 593 1954 Unknown [id number] 2.16840.1.292221.3.579.2. 727 1954 Unknown [id number] 2.840.1.605049.3.579.2. 727 1954 Unknown [id number] 2.840.1.468290.3.579.2. 1286 1954 Unknown [id number] 2.840.1.203918.3.579.2. 1286 1954 Unknown [id number] 2.16840.1.619238.3.579.2. 128 1954 Unknown [id number] 2.16840.1.903298.3.579.2. 1286 1954 Unknown [id number] 2.16840.1.830069.3.579.2. 1286 1954 Unknown [id number] 2.16.840.1.165014.3.579.2. 128 1954 Unknown [id number] 2.16.840.1.853095.3.579.2. 128 1954 Unknown [id number] 2.16.840.1.947487.3.579.2. 1285 1954 Unknown [id number] 2.16.840.1.990481.3.579.2. 128 1954 Unknown [id number] 2.16840.1.387738.3.579.2. 1285 1954 Unknown [id number] 2.16840.1.653366.3.579.2. 1258 1954 Unknown [id number] 2.840.1.885332.3.579.2. 1258 1954 Unknown [id number] 2.840.1.847792.3.579.2. 1258 1954 Unknown [id number] 2.840.1.771964.3.579.2. 1258 1954 Unknown [id number] 2.840.1.801282.3.579.2. 1258 1954 Unknown [id number] 2.840.1.302311.3.579.2. 1258 1954 Unknown [id number] 2.16840.1.354620.3.579.2. 1258 1954 Unknown [id number] 2.16840.1.356435.3.579.2. 1258 1954 Unknown [id number] 2.840.1.976029.3.579.2. 1258 1954 Unknown [id number] 2.840.1.871587.3.579.2. 1258 1954 Unknown [id number] 2.16.840.1.663121.3.579.2. 1258 1954 Unknown [id number] 2.16.840.1.495288.3.579.2. 1258 1954 Unknown [id number] 2.16.840.1.810845.3.579.2. 1258 1954 Unknown [id number] 2.16.840.1.123529.3.579.2. 1258 1954 Unknown [id number] 2.16.840.1.420502.3.579.2. 1258 1954 Unknown [id number] 2.840.1.569087.3.579.2. 1258 1954 Unknown [id number] 2.840.1.327481.3.579.2. 1258 1954 Unknown [id number] 2.16840.1.388414.3.579.2. 1258 1954 Unknown [id number] 2.16.840.1.302367.3.579.2. 1258 1954 Unknown [id number] 2.840.1.991888.3.579.2. 1258 1954 Unknown [id number] 2.840.1.604799.3.579.2. 1258 1954 Unknown [id number] 2.16.840.1.078465.3.579.2. 1258 1954 Unknown [id number] 2.16.840.1.395668.3.579.2. 1258 1954 Unknown [id number] 2.16.840.1.888215.3.579.2. 1258 1954 Unknown [id number] 2.16840.1.364027.3.579.2. 1258 1954 Unknown [id number] 2.16.840.1.430647.3.579.2. 9 1954 Unknown [id number] 2.16.840.1.311465.3.579.2. 9 1954 Unknown [id number] 2.16.840.1.037587.3.579.2. 1258 1954 Unknown [id number] 2.16.840.1.787391.3.579.2. 1258 1954 Unknown [id number] 2.16.840.1.407729.3.579.2. 1258 1954 Unknown [id number] 2.16.840.1.643237.3.579.2. 1258 1954 Unknown [id number] 2.16.840.1.800199.3.579.2. 196 1954 Unknown [id number] 2.16.840.1.601132.3.579.2. Unknown [id number] 2.16.840.1.787047.3.579.2. 531 Social History Date Type Detail Facility Start: 05-05-2021 End: 02-17-2024 Ex-smoker (finding) [facility] Start: 04-15-2023 End: 05-10-2023 Male [facility] Start: 1955 Sex Assigned At Male [facility] consumption [facility] Start: 02-02-2023 Gender identity Identifies as male gender (finding) [facility] Start: 02-02-2023 Sexual orientation Heterosexual (finding) [facility] Start: 06-28-1967 End: 09-27-1975 History of tobacco use Current smoker [facility] Work Phone: Start: 06-28-1967 End: 09-27-1975 History of tobacco use Cigarette Smoker [facility] Work Phone: Start: 04-15-2023 End: 05-10-2023 History of Social function [facility] Adult Depression Screening Assessment 1 [facility] Start: 01-11-2023 End: 02-17-2024 Tobacco use and exposure Smokeless tobacco non-user [facility] Start: 07-12-2023 End: 10-30-2024 Alcohol intake Current drinker of alcohol (finding) [facility] Within the last year , have you been afraid of your partner or ex-partner? No [facility] Do you belong to any clubs or organizations such as gnosticism groups, unions, fraternal or athletic groups, or [...] with occasional drink at home. [facility] Start: 05-28-2023 Tobacco Comment 1976 quit smoking [facility] Start: 05-27-2020 [facility] Start: 04-04-2024 Alcohol Comment rare [facility] Medical Equipment Procedure Code Equipment Code Equipment Origin al Text Equipment Identifier Dates Stem Fem 129d 4 06/10 45.5mm Fitmore Protasul-64 Hip [facility] - [id number] Start: 07-07-2023 Maryann Biomet Femoral Head 36mm [id number] Start: 07-07-2023 Screw Bn 30mm 6. [address] Actb Seven Trlg Strl Rpl [id number] 29 - [id number] Start: 07-07-2023 Shell Actb 56mm Hip 4 Hl Clr Cd [place] G7 F Hmsphr - Sna - [id number] Start: 07-07-2023 Liner Actb 36mm F Vivacit-E Lum G7 Hip Strl Lf - [id number] Start: 07-07-2023 Screw Bn 30mm 6. 5[address] St Actb Seven Trlg Strl Rpl [id number] 29 - [id number] Start: 07-07-2023 Screw Bn 30mm 6. 5mm St Actb Seven Trlg Strl Rpl [id number] 29 - [id number] Start: 07-07-2023 Functional Status Date Assessment Result Facility 10-25-2024 Patient Health Quest ionnaire 2 item (PHQ-2) [Reported] [facility] 02-07-2024 Functional Status N/A [facility] 06-01-2022 Functional Status N/A [facility] 02-16-2022 N/A [facility] Clinical Notes 02-16-2022 to 10-30-2024 Jose Hernández NP - 10/30/2024 8:00 AM Suleman Donato MD - 10/25/2024 10:45 AM EDTTeleDESIRAE Mendoza - 09/25/2024 2:39 PM John Hernández NP [...] Orally finasteride (PROSCAR) 5 mg, Daily HYDROcodone-acetaminophen ([place]) 5-325 MG tablet 1 tablet, Oral, Every [...] Unremarkable left total hip arthroplasty. 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 documented in this encounter [facility] 10-25-2024 History of Present illness Narrative [...] day at the same time. [DISCONTINUED] HYDROcodone-acetaminophen ([place]) 5-325 MG tablet Take 1 tablet by [...] factors. LDL-C is now calculated using the Humberto-Mcguire calculation, which is a validated novel method providing better accuracy than the Friedewald equation in the estimation of LDL-C. Humberto SS et al. LULU. 2013;310(19): 2842-9128 (http://education.[employer]/faq/EWG630) CHOL/HDLC RATIO 06/14/2024 5.4 (H) <5.0 (calc) [...] mL/min/1.73m2 Final BUN/CREATININE RATIO 06/14/2024 SEE NOTE: (calc) Final Comment: Not Reported: BUN and [...] diagnosis of diabetes in children. According to [place] Diabetes Association (ADA) guidelines, hemoglobin A1c <7.0% represents optimal control in non- diabetic patients. Different metrics may apply to specific patient populations. Standards of Medical Care in Diabetes(ADA). Assessment/Plan Diagnoses and all orders for this visit: Herniated lumbar disc without myelopathy - HYDROcodone-acetaminophen ([place]) 5-325 MG tablet; Take 1 tablet by [...] for Routine F/U. documented in this encounter [facility] 09-25-2024 Telephone encounter Note LM for pt to CB [facility] 09-25-2024 Miscellaneous Notes LM for pt to CB Lm to cb Lm on vm to call us, need to know why he is wanting or needing this Patient is wondering if he needs/or is due for an MMR vaccine. documented in this encounter [facility] 09-22-2024 Telephone encounter Note Lm to cb [facility] 09-21-2024 Telephone encounter Note Lm on vm to call us, need to know why he is wanting or needing this [facility] 09-21-2024 Telephone encounter Note Patient is wondering if he needs/or is due for an MMR vaccine. [facility] 07-31-2024 History of Present illness Narrative [...] requiring urgent evaluation. documented in this encounter [facility] 07-27-2024 History of Present illness Narrative [...] mg by mouth in the morning. HYDROcodone-acetaminophen ([place]) 5-325 MG tablet Take 1 tablet by [...] risks of opioid therapy including potential for FASHION SHOW DIRECTOR s/e, GI s/e, respiratory s/e, dermatologic s/e, [...] Medication Follow Up. documented in this encounter [facility] 07-03-2024 History of Present illness Narrative Images from the original note were not included. HISTORY OF PRESENT ILLNESS: POST OP PT Lawson Vela is an 69 y.o. @ male. (EST PT) S/P (L) NASH 05/03/24 (8WKS 5DAYS) XRAYS 06/12/24 IN [facility] DOING WELL- CONTINUES WITH PT, WANTS TO START AQUATIC THERAPY AT [facility]. USES CANE PRN. GOOD ROM/STRENGTH- +HYDROCODONE [...] requiring urgent evaluation. documented in this encounter [facility] 06-20-2024 History of Present illness Narrative [...] ind with HEP for maintenance/progression prn at [place] [facility] Goal #2: pt will demo [...] sign below. Date: documented in this encounter [facility] 06-14-2024 History of Present illness Narrative [...] mg by mouth in the morning. HYDROcodone-acetaminophen ([place]) 5-325 MG tablet Take 1 tablet by [...] Do you have a medical power of trademark attorney?: (Patient-Rptd) (P) No Objective : BP [...] a living will and durable power of trademark attorney for healthcare. We discussed telling keith people about their advance directives such as close family members, and requested a copy to scan into the patient's EHR. An advance directive packet was offered to the patient. Assessment/Plan Diagnoses and all orders for this visit: Routine general medical examination at health care facility ACP (advance care planning) Benign essential hypertension ([facility]/HCC) - Lipid panel; Future - Comprehensive metabolic [...] need - Influenza, high-dose seasonal, quadrivalent, PF (MMW134) (Fluzone High Dose Quad North 0.7mL dose) Herniated lumbar disc without myelopathy - HYDROcodone-acetaminophen ([place]) 5-325 MG tablet; Take 1 tablet by mouth every 6 (six) hours if needed for severe pain Claudication ([facility]) - Vascular US lower extremity arterial duplex bilateral; Future Orders Placed This Encounter Procedures Influenza, high-dose seasonal, quadrivalent, PF (PNT017) (Fluzone High Dose Quad North 0.7mL dose) [...] June 14, 2024 documented in this encounter [facility] 06-12-2024 History of Present illness Narrative [...] Unremarkable left total hip arthroplasty. Jose Hernández EMT B-SOFTWARE INTEGRATION DEVELOPER XR hip left 2 or 3 views [...] Unremarkable left total hip arthroplasty. 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 documented in this encounter [facility] 05-16-2024 History of Present illness Narrative [...] mg by mouth in the morning. HYDROcodone-acetaminophen ([place]) 5-325 MG tablet Take 1 tablet by [...] wrist GERD (gastroesophageal reflux disease) HTN (hypertension) ([facility]) Lumbosacral disc disease Osteoarthritis ALLERGIES: Allergies Allergen [...] if he desires a referral to another home health billing specialist we would be happy to make referral, he states he would like to continue his care here. Boni Blair D.O. documented in this encounter [facility] 05-09-2024 History of Present illness Narrative [...] mg by mouth in the morning. HYDROcodone-acetaminophen ([place]) 5-325 MG tablet Take 1 tablet by [...] wrist GERD (gastroesophageal reflux disease) HTN (hypertension) ([facility]) Lumbosacral disc disease Osteoarthritis ALLERGIES: Allergies Allergen [...] Blair/demi Blair D.O. documented in this encounter [facility] 05-08-2024 Telephone encounter Note Post op pain rx refill. PDMP reviewed [facility] 05-08-2024 Miscellaneous Notes Post op pain rx refill. PDMP reviewed documented in this encounter [facility] 05-04-2024 Telephone encounter Note He already discharged and PT is meeting with him today. [facility] 05-04-2024 Miscellaneous Notes He already discharged and PT is meeting with him today. Maxine myrick that patient is being discharged today from his LT Hip replacement and would like us to call patient to let him know what he needs to do. Patient's phone number is [phone]. documented in this encounter [facility] 05-04-2024 Telephone encounter Note Maxine myrick that patient is being discharged today from his LT Hip replacement and would like us to call patient to let him know what he needs to do. Patient's phone number is [phone]. [facility] 05-02-2024 Telephone encounter Note Post op pain rx. PDMP reviewed [facility] 05-02-2024 Miscellaneous Notes Post op pain rx. PDMP reviewed documented in this encounter [facility] 04-17-2024 History of Present illness Narrative Images from the original note were not included. HPI surgical clearance Additional comments: Pt sched 05/03/24 for left hip replacement with Dr Blair at [facility] PAT completed Last edited by France Farah LPN on 04/17/2024 1:48 PM. Subjective Patient ID: Lawson Vela is a 69 y.o. male who presents for surgical clearance (Pt sched 05/03/24 for left hip replacement with Dr Blair at [facility]/PAT completed). Pt has had left hip pain [...] mg by mouth in the morning. HYDROcodone-acetaminophen ([place]) 5-325 MG tablet Take 1 tablet by [...] with food 4 tablet 3 [DISCONTINUED] HYDROcodone-acetaminophen ([place]) 5-325 MG tablet No current facility-administered medications [...] As Previously Scheduled. documented in this encounter [facility] 04-12-2024 Telephone encounter Note OARRS reviewed, Rx sent into patient's pharmacy. [facility] 04-12-2024 Miscellaneous Notes OARRS reviewed, Rx sent into patient's pharmacy. Patient comment: Getting prepared for future surgery. documented in this encounter [facility] 04-12-2024 Telephone encounter Note Patient comment: Getting prepared for future surgery. [facility] 04-06-2024 History of Present illness Narrative [...] tx: cane, norco, ice, heat, topicals, XR [facility] 11/01/23, hot tub, PREHAB/HEP Currently seeing pain management, Dr Ludwig [facility] for LBP MEDICATION: Current Outpatient Medications [...] mg by mouth in the morning. HYDROcodone-acetaminophen ([place]) 5-325 MG tablet irbesartan-hydroCHLOROthiazide (Avalide) 150-12.5 MG [...] wrist GERD (gastroesophageal reflux disease) HTN (hypertension) ([facility]) Lumbosacral disc disease Osteoarthritis ALLERGIES: Allergies Allergen [...] IMAGING: November 01, 2023 x-rays from the [facility] office AP pelvis and lateral left hip [...] Blair/demi Blair D.O. documented in this encounter [facility] 04-04-2024 Instructions Trista Pelaez RN - [...] in at the main lobby of the [facility]- registration desk is straight ahead as soon as you walk in. Tell them you are here for surgery. 2. If you have a Living Will/Durable Power of Block Sawyer for Health Care that is not on [...] after you have bathed. 5. NO nail northern irish/acrylic on at least one finger. If you are having a hand, wrist or foot surgery then all nail northern irish and artificial/acrylic nails must be removed from [...] please call the Preadmission Testing office at [phone], Mon.-Fri. 7 a.m.-3 p.m. Leave a voicemail [...] with your doctor. documented in this encounter [facility] 04-04-2024 Miscellaneous Notes Patient called and educated to watch his YOLANDA education on total hip replacement prior to his PAT appointment next week. Patient verbalized understanding. documented in this encounter [facility] 04-04-2024 Nurse Note Patient called and educated to watch his YOLADNA education on total hip replacement prior to his PAT appointment next week. Patient verbalized understanding. [facility] 03-15-2024 History of Present illness Narrative No need for Prehab appt, has walker and has recently went through NASH, spoke with pt in parking lot, reviewed precautions good understanding. documented in this encounter [facility] 02-17-2024 History of Present illness Narrative [...] Appointment As Scheduled. documented in this encounter [facility] 02-07-2024 Hospital Discharge instructions Patient Education [...] urethra. Follow these instructions at home: Take lzfz-cew-ksqgvax and prescription medicines only as told by [...] provider. Document Revised: 12/31/2021 Document Reviewed: 12/31/2021 [employer] Patient Education 2022 [employer] Follow Up Care 08/30/2023 12:37:09 With:PAMELA BAER, Mac Stephenson, URL Address: [facility] [address] [place] [address]- When: Unknown [facility] 02-07-2024 Note Patient Education Urology Benign [...] Follow these instructions at home: ? Take oacv-pee-jnehepu and prescription medicines only as told by [...] develop side effec (more content not included)... [facility] 08-09-2023 History of Present illness Narrative [...] develop for requiring urgent evaluation. Jose Hernández EMT B-SOFTWARE INTEGRATION DEVELOPER documented in this encounter [facility] 07-07-2023 Hospital course Narrative Summary: status post hip replacement right Orthopaedic Discharge Summary Patient ID: Lawson Vela [id number] y.o. 1955 Admit date: 07/07/2023 Discharge [...] Closure: Deep and Superficial Layers Hospital Course:See [facility] inpatient notes for specifics Patient was admitted [...] Charissa Blair DO documented in this encounter [facility] 07-07-2023 Progress note Formatting of t his note is different from the original. Physical Therapy Evaluation Discharge Recommendations PT Recommendations: Home Home Recommendations: Intermittent caregiver support for: Post Discharge Therapy Recommendations: Home Physical Therapy Autocad Electrical Designer Support for-: ADL Deficits, Mobility Deficits Past Medical History: Diagnosis Date Arthritis Benign prostatic hyperplasia Fractures GERD (gastroesophageal reflux disease) Hypertension Past Surgical History: Procedure Laterality Date APPENDECTOMY RELEASE CARPAL TUNNEL Right 05/29/2020 Performed by Charissa Blair DO at [facility] 6 Clicks: Basic Mobility Turning from your [...] Fair Standing Balance: Dynamic: Fair RLE Assessment: (3/) LLE Assessment: (09/30) 07/07/23 1351 NASH NASH [...] Principal Problem: Primary osteoarthritis of right hip HOSPITAL [facility] 07-07-2023 Miscellaneous Notes Physical Therapy Evaluation Discharge Recommendations PT Recommendations: Home Home Recommendations: Intermittent caregiver support for: Post Discharge Therapy Recommendations: Home Physical Therapy Autocad Electrical Designer Support for-: ADL Deficits, Mobility Deficits Past Medical History: Diagnosis Date Arthritis Benign prostatic hyperplasia Fractures GERD (gastroesophageal reflux disease) Hypertension Past Surgical History: Procedure Laterality Date APPENDECTOMY RELEASE CARPAL TUNNEL Right 05/29/2020 Performed by Charissa Bliar DO at [facility] 6 Clicks: Basic Mobility Turning from your [...] in stable condition documented in this encounter [facility] 07-07-2023 Hospital Discharge instructions Janee Viera [...] swallowing) Questions, Problems, Concerns Preop phone number [phone] ext [phone] The following attachments cannot be sent through Care Everywhere.Total Hip Replacement Discharge Instructions ([place]er)documented in this encounter [facility] 07-07-2023 Attending History and physical note HISTORY AND PHYSICAL INTERVAL NOTE: Lawson Vela 1955 [id number] H&P reviewed. The patient was examined and there are no changes to the H&P. Charissa Blair DO Source Note - Charissa Blair DO - 07/06/2023 7:28 AM EST [facility] 07-07-2023 History and physical note HISTORY AND PHYSICAL INTERVAL NOTE: Lawson Vela 1955 [id number] H&P reviewed. The patient was examined and there are no changes to the H&P. Charissa Blair DO Source Note - Charissa Blair DO - 07/06/2023 7:28 AM EST documented in this encounter [facility] 07-07-2023 Procedure note Summary: Right hip replacement [...] to the recovery room [facility] stable condition [facility] HNO ID: [id number] Author: Laila Lewis PA-C Service: ? Author Type: Physician Medical Billing Assistant Type: Progress Notes Filed: 04/15/2023 1:53 PM [...] week. Hydrocodone, Meloxicam Zanaflex, Lidocaine patches animal care worker Prior to ablation symptoms on [...] days 2 More (more content not included)... [facility] 04-13-2023 Instructions Laila Lewis PA-C - [...] which is considered uptake). Laila Lewis PA-C [phone] documented in this encounter [facility] 04-13-2023 History of Present illness Narrative [...] week. Hydrocodone, Meloxicam Zanaflex, Lidocaine patches animal care worker Prior to ablation symptoms on [...] the patient MRI Lumbar: Narrative PERFORMED AT [facility] LOCATION:[facility] CLINICAL HISTORY: Low back pain extending into the right lower extremity. COMPARISON: 05/01/2022 TECHNIQUE: Multiplanar MR imaging of the lumbar spine was performed. FINDINGS: The spine is visualized from the F68-W0-I5 levels on the sagittal sequences, assuming a [...] narrowing. At the L5-S1 level, there is muid-gd-ydbqsovo diffuse disc bulging and moderate hypertrophic facet changes, which results in moderate to marked neural foraminal narrowing. Procedure Note CONVERSION, GENERIC - 11/13/2022 PERFORMED AT [facility] LOCATION:[facility] CLINICAL HISTORY: Low back pain extending into the right lower extremity. COMPARISON: 05/01/2022 TECHNIQUE: Multiplanar MR imaging of the lumbar spine was performed. FINDINGS: The spine is visualized from the X93-H1-K5 levels on the sagittal sequences, assuming a [...] narrowing. At the L5-S1 level, there is rglh-uo-rawizvav diffuse disc bulging and moderate hypertrophic facet changes, which results in moderate to marked neural foraminal narrowing. 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 Report reported and signed by Jamse Vizcaino on 10/19/2022 1406 CONVERSION, GENERIC - 11/14/2022 PERFORMED AT [facility] LOCATION:[place] 112 110 EXAMINATION: XR HIPS TRENT 3_4V [...] records, can take picture and upload on [employer] or fax -Once I review above, will [...] 8:55 AM PAGER: documented in this encounter [facility] 02-12-2023 Note HNO ID: [id number] Author: Laila Lewis PA-C Service: ? Author Type: Physician Medical Billing Assistant Type: Progress Notes Filed: 02/12/2023 12:58 PM Note Text: Per Triage: Lawson Vela is a 68 year old male that requests evaluation of lumbar spine. Per review, they have symptoms of LBP into left leg pain. Positive for numbness, difficulty walking and weakness. CMT: PT Hydrocodone animal care worker Studies (Reports unless indicated) MRI Lumbar: Narrative PERFORMED AT [facility] LOCATION:[facility] CLINICAL HISTORY: Low back pain extending into the right lower extremity. COMPARISON: 05/01/2022 TECHNIQUE: Multiplanar MR imaging of the lumbar spine was performed. FINDINGS: The spine is visualized from the Y20-D7-S9 levels on the sagittal sequences, assuming a [...] narrowing. At the L5-S1 level, there is vqca-ro-pjnlmzxj diffuse disc bulging and moderate hypertrophic facet changes, which results in moderate to marked neural foraminal narrowing. Procedure Note CONVERSION, GENERIC - 11/13/2022 PERFORMED AT [facility] LOCATION:[facility] CLINICAL HISTORY: Low back pain extending into the right lower extremity. COMPARISON: 05/01/2022 TECHNIQUE: Multiplanar MR imaging of the lumbar spine was performed. FINDINGS: The spine is visualized from the W56-I0-H5 levels on the sagittal sequences, assuming a [...] narrowing. At the L5-S1 level, there is mebl-bw-vsufemvc diffuse disc bulging and moderate hypertrophic facet changes, which results in moderate to marked neural foraminal narrowing. 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 Report reported and signed by James Vizcaino on 10/19/2022 [id number] Disposition: Please schedule with Laila. [facility] 02-12-2023 History of Present illness Narrative Per Triage: Lawson Vela is a 68 year old male that requests evaluation of lumbar spine. Per review, they have symptoms of LBP into left leg pain. Positive for numbness, difficulty walking and weakness. CMT: PT Hydrocodone animal care worker Studies (Reports unless indicated) MRI Lumbar: Narrative PERFORMED AT [facility] LOCATION:[facility] CLINICAL HISTORY: Low back pain extending into the right lower extremity. COMPARISON: 05/01/2022 TECHNIQUE: Multiplanar MR imaging of the lumbar spine was performed. FINDINGS: The spine is visualized from the V43-X5-O4 levels on the sagittal sequences, assuming a [...] narrowing. At the L5-S1 level, there is rhda-ct-rjpvetkq diffuse disc bulging and moderate hypertrophic facet changes, which results in moderate to marked neural foraminal narrowing. Procedure Note CONVERSION, GENERIC - 11/13/2022 PERFORMED AT [facility] LOCATION:[facility] CLINICAL HISTORY: Low back pain extending into the right lower extremity. COMPARISON: 05/01/2022 TECHNIQUE: Multiplanar MR imaging of the lumbar spine was performed. FINDINGS: The spine is visualized from the G18-I4-A6 levels on the sagittal sequences, assuming a [...] narrowing. At the L5-S1 level, there is imdv-su-ctdyogui diffuse disc bulging and moderate hypertrophic facet changes, which results in moderate to marked neural foraminal narrowing. 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 Report reported and signed by James Vizcaino on 10/19/2022 1409 Disposition: Please schedule with Laila. Patient name: Lawson Vela Are you being referred by a Center for [facility] Health Provider or Pain Management Provider at [facility]? No If answer is YES please [...] the facility where the MRI/CT/myelogram was completed: [facility] Imaging Address: [address] [facility] [place] [address] [facility] Address: [address] [place] [id number] MRI/CT/myelogram viewable in Epic: No If not, please provide [phone] to fax in imaging reports for review. [...] physical therapy was completed PT Injections [facility] Address: [address] [place] [address] Have you tried any other kinds of [...] where the surgery was completed: Additional Comments [phone] (Home Phone) documented in this encounter [facility] 01-28-2023 Note HNO ID: [id number] Author: Mookie Lee Service: ? Author Type: ? Type: Progress Notes Filed: 02/12/2023 12:58 PM Note Text: Patient name: Lawson Vela Are you being referred by a [place] [facility] Provider or Pain Management Provider at [facility]? No If answer is YES please [...] the facility where the MRI/CT/myelogram was completed: [facility] Imaging Address: [address] [place] [address] [facility] Address: [address] [place] [address] MRI/CT/myelogram viewable in Epic: No If not, please provide [phone] to fax in imaging reports for review. [...] physical therapy was completed PT Injections [facility] Address: [address] [place] [address] Have you tried any other kinds of [...] where the surgery was completed: Additional Comments [phone] (Home Phone) [facility] 12-17-2022 Evaluation note Encounter Date Diagnosis Assessment [...] prednisone taper. Advised not to take any cges-uaf-afaysfr ibuprofen while taking prednisone. OARRS reviewed . [...] spine, education on diet, decrease sugar intake. [employer] Other 05-16-2023 NoteCONSULTATION CONSULTATION DATE: 11/10/2022 TO: [...] our patients to inform us about any qopg-oql-infhogs medications or herbal remedies/nutritional supplements/alternative remedies. 2. [...] treatment options with their primary care provider.[facility] [id number] Note CONSULTATION CONSULTATION DATE: 10/08/2022 TO: Javad [...] our patients to inform us about any oknq-xbe-pwydxcb medications or herbal remedies/nutritional supplements/alternative remedies. 2. [...] treatment options with their primary care provider.[facility] [id number] Note CONSULTATION CONSULTATION DATE: 09/10/2022 HISTORY: This [...] a tightness in that region. Medications include Bridgeport 5/325 daily, tizanidine 4 mg q.h.s., Mobic [...] in three months' time unless otherwise indicated.[facility] [id number] NoteCONSULTATION PROCEDURE DATE: 09/10/2022 PREOPERATIVE DIAGNOSIS: Bilateral [...] pattern, and patient tolerated the procedure well.[facility] [id number] Note CONSULTATION CONSULTATION DATE: 07/23/2022 HISTORY OF [...] current medications include Mobic 50 mg daily, Bridgeport 5/325 per his PCP daily p.r.n. and [...] up in the office after the procedure.[facility] [id number] NoteCONSULTATION CONSULTATION DATE: 06/25/2022 HISTORY OF PRESENT [...] with a vitamin regimen and he takes Bridgeport 5/325 daily p.r.n., and Mobic 15 mg [...] following his procedure here in the office.[facility] [id number] Hospital Discharge instructions Patient Education 06/01/2022 08:22:09 [...] urethra. Follow these instructions at home: Take cvur-ldp-fnipynd and prescription medicines only as told by [...] 06/14/2006 Document Revised: 05/09/2019 Document Reviewed: 07/19/2017 [employer] Patient Education 2020 [employer] Follow Up Care 02/16/2022 11:28:21 With:PAMELA BAER, Mac Stephenson, URL Address: [facility] [address] , [place] [address]- When: Unknown [facility] 11-22-2022 NoteCONSULTATION CONSULTATION DATE: 05/19/2022 CHIEF [...] The patient currently takes Mobic 15 mg, Bridgeport 5/325 on a p.r.n. basis as prescribed [...] had been performed. CC: Javad Donato M.D.[facility] [id number] NoteCONSULTATION CONSULTATION DATE: 04/28/2022 CHIEF COMPLAINT: Left [...] patient takes two Aleve. He also takes Bridgeport 5/[address] Donato has prescribed for [...] like to proceed. CC: Javad Donato M.D.[facility] [id number] Hospital Discharge instructions Patient Education 02/16/2022 11:24:07 [...] urethra. Follow these instructions at home: Take auay-mgs-imxqnav and prescription medicines only as told by [...] 06/14/2006 Document Revised: 05/09/2019 Document Reviewed: 07/19/2017 [employer] Patient Education 2020 [employer]. 02/16/2022 11:24:04 Calorie Counting for Weight Loss [...] 06/14/2006 Document Revised: 03/03/2019 Document Reviewed: 05/14/2017 [employer] Patient Education HubChilla. Follow Up Care 08/18/2021 12:09:57 With:Mac SANTIAGO MD, URL Address: [address] [place], [place] [id number] Business (1) When:Within 6 Month(s) [facility] evaluation + Plan note Future Appointments Appointment Date:06/01/2022 10:45:00 AM Scheduled Provider:Mac SANTIAGO MD Location:[facility] Appointment Type:URO Office Visit [facility] evaluation + Plan note Future Appointments Appointment Date:11/30/2022 08:45:00 AM Scheduled Provider:Mac SANITAGO MD Location:[facility] Appointment Type:URO Office Visit [facility] evaluation + Plan note Future Appointments Appointment Date:02/05/2025 10:45:00 AM Scheduled Provider:Mac SANTIAGO MD Location:[facility] Appointment Type:URO [facility] noteNo assessment information available [facility] Work Phone: Evaluation noteNort [facility] Other evaljvngfp note* Diagnosis Spinal stenosis, lumbar region with neurogenic claudication- Primary [facility] Spinal stenosis, lumbar region with neurogenic claudication- Primary Bilateral hip joint arthritis [facility] Diagnosis Right hip pain- Primary [...] [facility] Diagnosis Post-operative pain Other acute [...] and thigh [facility]* Diagnosis Acute pharyngitis, unspecified etiology- Primary [facility]* Diagnosis Routine general medical examination [...] peripheral vascular disease [facility] Diagnosis Left hip pain- Primary Pain in joint, pelvic region and thigh S/P total left hip arthroplasty [facility] Diagnosis Left hip pain- Primary Pain in joint, pelvic region and thigh S/P total left hip arthroplasty [facility] Diagnosis Left hip pain- Primary Pain in joint, pelvic region and thigh S/P total left hip arthroplasty [facility]* Diagnosis S/P total left hip arthroplasty- Primary [facility] Diagnosis Left hip pain- Primary Pain in joint, pelvic region and thigh S/P total left hip arthroplasty [facility] Diagnosis Left hip pain- Primary Pain in joint, pelvic region and thigh S/P total left hip arthroplasty [facility] Diagnosis Left hip pain- Primary Pain in joint, pelvic region and thigh S/P total left hip arthroplasty [facility]* Diagnosis Acute non-recurrent frontal sinusitis- Primary Herniated lumbar disc without myelopathy documented in this encounter [facility] Healthcare[facility] note* Diagnosis Primary osteoarthritis of right hip- Primary [facility] Preop examination- Primary Unspecified pre-operative examination Hypertension, unspecified type Preop examination Unspecified pre-operative examination Hypertension, unspecified type [facility] Herniated lumbar disc without myelopathy IGT (impaired glucose tolerance) Impaired glucose tolerance test Class 2 severe obesity with serious comorbidity and body mass index (BMI) of 37.0 to 37.9 in adult, unspecified obesity type (CMS/[facility]) Morbid (severe) obesity due to excess calories (CMS/HCC) Essential (primary) hypertension ([facility]) Unspecified essential hypertension Body mass index (BMI) 38.0-38.9, adult Left hip pain Pain in joint, pelvic region and thigh documented in this encounter [facility] HealthcareEvaluation note* Diagnosis S/P total left hip arthroplasty- Primary Left hip pain Pain in joint, pelvic region and thigh [facility] - [facility]* Type Description Date Medical History appendicitis Medical History Arthritis Medical History Hypertension Medical History obesity Medical History pneumonia Medical History prostate cancer Surgical History appendectomy Surgical History carpal tunnel release 2017 Hospitalization History see surg Hx [facility] [employer] Other [facility] - [facility] [employer] Other Hospital course Narrative No data available for this section [facility] progress note No data available for this section [facility] reason for referral (narrative)* Diagnostic Procedure Only (Routine) - Pending Review Specialty Diagnoses / Procedures Referred By Rayray barkley Referred To Contact XR IMAGING Diagnoses Bilateral hip joint arthritis Procedures XR HIP BILATERAL 5V PEL/AP/LAT EACH HIP RADEX HIPS BILATERAL WITH PELVIS MINIMUM 5 VIEWS Laila Lewis, KANCHAN [address] [place] [address] [facility] [address] Referral ID Status Reason Start Date Expiration Date Visits Requested Visits Authorized [id number] Pending Review Auto-Generat ed Referral 3 05/12/2024 1 1 * Consult, Test, Treat (Routine) - Pending Review Specialty Diagnoses / Procedures Referred By Contac t Referred To Contact Orthopedics Diagnoses Bilateral hip joint arthritis Procedures CONSULT TO ORTHOPAEDICS OFFICE/OUTPATIENT [facility] 60-74 MINUTES Laila Lewis PA-C [address] [place] [address] Referral ID Status Reason Start Date Expiration Date Visits Requested Visits Authorized [id number] Pending Review PCP Requested Referral 3 04/12/2024 1 1 [facility] for visit Narrativeself referral- low back pain L4-L5 [employer] Other reason for visit Narrative* Rehabilitation - Outpatient (Routine) - Authorized Specialty Diagnoses / Procedures Referred By Contac t Referred To Contact Physical Therapy Diagnoses S/P total left hip arthroplasty Procedures [place] OFFICE/OUTPATIENT [facility] Jose Hernández, YISEL [address] [place] [address] Phone: tel: fax: Nagi Plata, PT [address] [place] [address] Phone: tel: fax: Referral ID Status Reason Start Date Expiration Date Visits Requested Visits Authorized [id number] Authorized Consult and Treat 06/12/2024 06/27/2024 10 10 [facility] [place] for visit Narrative* Rehabilitation - Outpatient (Routine) - Authorized Specialty Diagnoses / Procedures Referred By Contac t Referred To Contact Physical Therapy Diagnoses S/P total left hip arthroplasty Procedures [place] OFFICE/OUTPATIENT [facility] 60 MINUTES Jose Hernández, YISEL [address] [place] [address] Phone: tel: fax: Nagi Plata, PT [address] [place] [address] Phone: tel: fax: Referral ID Status Reason Start Date Expiration Date Visits Requested Visits Authorized [id number] Authorized Consult and Treat 06/29/2024 06/27/2025 20 20 [facility] N[facility]* Rehabilitation - Outpatient (Routine) - Authorized Specialty Diagnoses / Procedures Referred By Rayray barkley Referred To Contact Physical Therapy Diagnoses S/P total left hip arthroplasty Procedures [place] OFFICE/OUTPATIENT [facility] 60 MINUTES Jose Hernández, CONTRACTS REPRESENTATIVE [address] [place] [address] Phone: tel: fax: Nagi Plata, PT [address] [place] [address] Phone: tel: fax: Referral ID Status Reason Start Date Expiration Date Visits Requested Visits Authorized [id number] Authorized Consult and Treat 06/29/2024 06/27/2025 20 [...] unspecified type Procedures ECG 12 lead Charissa Blair, [address] [address] Referral ID Status Reason Start Date Expiration Date V isits Requested Visits Authorized [id number] Pending Review 03/06/2024 03/06/2025 1 1 Specialty Diagnoses / Procedures Referred By Contac t Referred To Contact Procedures Remove dressing (specify when) Nagi Miner, EMT B-SOFTWARE INTEGRATION DEVELOPER [address] [place] [address] Referral ID Status Reason Start Date Expiration Date V isits Requested Visits Authorized [id number] Pending Review 07/07/2023 07/06/2024 1 1 Specialty Diagnoses / Procedures Referred By Contac t Referred To Contact Procedures Adult diet Nagi Miner, EMT B-SOFTWARE INTEGRATION DEVELOPER [address], [facility] [address] [place] [address] Referral ID Status Reason Start Date Expiration Date V isits Requested Visits Authorized [id number] Pending Review 07/07/2023 07/06/2024 1 1 Additional Source Comments Care Team (unrecognized sect ion and content) Team Status: Active Member Role Status Dates Javad Donato II MD Primary Care Provider Active Team Status: Inactive Member Role Status Dates Javad Donato II MD Primary Care Provider Active Erica Xiong NP-C Attending Provider Active Print And Pattern Designer Relationship Specialty Start Date End Date Javad Donato MD [address] [facility] [address] [place] [address] PCP - ACO Reach 11/19/22 Javad Donato MD [address] [facility] [address] [place] [address] PCP - General Internal Medicine 01/05/23 Print And Pattern Designer Relationship Specialty Start Date End Date Javad Donato MD [address] [facility] [address] [place] [address] PCP - ACO Reach 11/19/22 Javad Donato MD [address] [place] [address] [place] [address] PCP - General Internal Medicine 01/05/23 Print And Pattern Designer Relationship Specialty Start Date End Date Javad Donato MD [address] [place] [address] [place] [address] PCP - ACO Reach 11/19/22 Javad Donato MD [address] [place] [address] [place] [address] PCP - General Internal Medicine 01/05/23 Print And Pattern Designer Relationship Specialty Start Date End Date Javad Donato MD [address] [place] [address] [place] [address] PCP - ACO Reach 11/19/22 Javad Donato MD [address] [place] [address] PCP - General Internal Medicine 01/05/23 Print And Pattern Designer Relationship Specialty Start Date End Date Javad Donato MD [address] [place] [address] [place] [address] PCP - ACO Reach 11/19/22 Javad Donato MD [address] [place] [address] [place] [address] PCP - General Internal Medicine 01/05/23 Print And Pattern Designer Relationship Specialty Start Date End Date Javad Donato MD [address] [place] [address] PCP - ACO Reach 11/19/22 Javad Donato MD [address] [place] [address] [place] [address] PCP - General Internal Medicine 01/05/23 Print And Pattern Designer Relationship Specialty Start Date End Date Javad Donato MD [address] [place] [address] [place] [address] PCP - ACO Reach 11/19/22 Javad Donato MD [address] [place] [address] [place] [address] PCP - General Internal Medicine 01/05/23 Print And Pattern Designer Relationship Specialty Start Date End Date Javad Donato MD [address] [place] [address] [place] [address] PCP - ACO Reach 11/19/22 Javad Donato MD [address] [place] [address] [place] [address] PCP - General Internal Medicine 01/05/23 Print And Pattern Designer Relationship Specialty Start Date End Date Javad Donato MD [address] [place] [address] [place] [address] PCP - ACO Reach 11/19/22 Javad Donato MD [address] [place] [address] [place] [address] PCP - General Internal Medicine 01/05/23 Print And Pattern Designer Relationship Specialty Start Date End Date Javad Donato MD [address] [place] [address] [place] [address] PCP - ACO Reach 11/19/22 Javad Donato MD [address] [place] [address] [place] [address] PCP - General Internal Medicine 01/05/23 Print And Pattern Designer Relationship Specialty Start Date End Date Javad Donato MD [address] [place] [address] [place] [address] PCP - ACO Reach 11/19/22 Javad Donato MD [address] [place] [address] [place] [address] PCP - General Internal Medicine 01/05/23 Print And Pattern Designer Relationship Specialty Start Date End Date Javad Donato MD [address] [place] [address] PCP - ACO Reach 11/19/22 Javad Donato MD [address] [place] [address] [place] [address] PCP - General Internal Medicine 01/05/23 Print And Pattern Designer Relationship Specialty Start Date End Date Javad Donato MD [address] [place] [address] [place] [address] PCP - ACO Reach 11/19/22 Javad Donato MD [address] [place] [address] [place] [address] PCP - General Internal Medicine 01/05/23 Print And Pattern Designer Relationship Specialty Start Date End Date Javad Donato MD [address] [place] [address] [place] [address] PCP - ACO Reach 11/19/22 Javad Donato MD [address] [place] [address] [place] [address] PCP - General Internal Medicine 01/05/23WednesdayMichelle LPN [address] [place] [address] Licensed Practical Nurse Family Medicine 05/08/24 Print And Pattern Designer Relationship Specialty Start Date End Date Javad Donato MD [address] [place] [address] [place] [address] PCP - ACO Reach 11/19/22 Javad Donato MD [address] [place] [address] [place] [address] PCP - General Internal Medicine 01/05/23Wednesday, Michelle, ROBOTICS TESTING TECHNICIAN [address] [place] [address] Licensed Practical Nurse Family Medicine 05/08/24 Print And Pattern Designer Relationship Specialty Start Date End Date Javad Donato MD [address] [place] [address] [place] [address] PCP - ACO Reach 11/19/22 Javad oDnato MD [address] [place] [address] PCP - General Internal Medicine 01/05/23Wednesday, Michelle, ROBOTICS TESTING TECHNICIAN [address] [place] [address] Licensed Practical Nurse Family Medicine 05/08/24 05/16/24 Print And Pattern Designer Relationship Specialty Start Date End Date Javad Donato MD [address] [place] [address] PCP - ACO Reach 11/19/22 Javad Donato MD [address] [place] [address] PCP - General Internal Medicine 01/05/23Wednesday, Michelle, ROBOTICS TESTING TECHNICIAN [address] [place] [address] Licensed Practical Nurse Family Medicine 05/08/24 05/16/24 Print And Pattern Designer Relationship Specialty Start Date End Date Javad Donato MD [address] [place] [address] PCP - ACO Reach 11/19/22 Javad Donato MD [address] [place] [address] PCP - General Internal Medicine 01/05/23WedRyderMichelle massey LPN [address] [place] [address] Licensed Practical Nurse Family Medicine 05/08/24 05/16/24 Print And Pattern Designer Relationship Specialty Start Date End Date Javad Donato MD [address] [place] [address] PCP - ACO Reach 11/19/22 Javad Donato MD [address] [place] [address] PCP - General Internal Medicine 01/05/23 Print And Pattern Designer Relationship Specialty Start Date End Date Javad Donato MD [address] [place] [address] PCP - ACO Reach 11/19/22 Javad Donato MD [address] [place] [address] PCP - General Internal Medicine 01/05/23 Print And Pattern Designer Relationship Specialty Start Date End Date Javad Donato MD [address] [place] [address] PCP - ACO Reach 11/19/22 Javad Donato MD [address] [place] [address] PCP - General Internal Medicine 01/05/23 Print And Pattern Designer Relationship Specialty Start Date End Date Javad Donato MD [address] [place] [address] PCP - ACO Reach 11/19/22 Javad Donato MD [address] [place] [address] PCP - General Internal Medicine 01/05/23 Print And Pattern Designer Relationship Specialty Start Date End Date Javad Donato MD [address] [place] [address] PCP - ACO Reach 11/19/22 Javad Donato MD [address] [place] [address] PCP - General Internal Medicine 01/05/23 Print And Pattern Designer Relationship Specialty Start Date End Date Javad Donato MD [address] [place] [address] PCP - ACO Reach 11/19/22 Javad Donato MD [address] [place] [address] PCP - General Internal Medicine 01/05/23 Print And Pattern Designer Relationship Specialty Start Date End Date Javad Donato MD [address] [place] [address] PCP - ACO Reach 11/19/22 Javad Donato MD [address] [place] [address] PCP - General Internal Medicine 01/05/23 Print And Pattern Designer Relationship Specialty Start Date End Date Javad Donato MD [address] [place] [address] PCP - ACO Reach 11/19/22 Javad Donato MD [address] [place] [address] PCP - General Internal Medicine 01/05/23 Print And Pattern Designer Relationship Specialty Start Date End Date Javad Donato MD [address] [place] [address] PCP - ACO Reach 11/19/22 Javad Donato MD [address] [place] [address] PCP - General Internal Medicine 01/05/23 Print And Pattern Designer Relationship Specialty Start Date End Date Javad Donato MD [address] [place] [address] PCP - ACO Reach 11/19/22 Javad Donato MD [address] [place] [address] PCP - General Internal Medicine 01/05/23 Print And Pattern Designer Relationship Specialty Start Date End Date Javad Donato MD [address] [place] [address] PCP - ACO Reach 11/19/22 Javad Donato MD [address] [place] [address] PCP - General Internal Medicine 01/05/23 Print And Pattern Designer Relationship Specialty Start Date End Date Javad Donato MD [address] [place] [address] PCP - General Internal Medicine 06/15/17 Print And Pattern Designer Relationship Specialty Start Date End Date Javad Donato MD [address] [place] [address] PCP - General Internal Medicine 06/15/17 Print And Pattern Designer Relationship Specialty Start Date End Date Javad Donato MD [address] [place] [address] PCP - ACO Reach 11/19/22 Javad Donato MD [address] [place] [address] PCP - General Internal Medicine 01/05/23 Print And Pattern Designer Relationship Specialty Start Date End Date Javad Donato MD [address] [place] [address] PCP - ACO Reach 11/19/22 Javad Donato MD [address] [place] [address] PCP - General Internal Medicine 01/05/23 (unrecognized sect ion and content) No Status Records FoundNo Status Records FoundNo Status Records FoundNo Status Records FoundNo Status Records FoundNo Status Records FoundNo Status Records FoundNo Status Records FoundNo Status Records FoundNo Status Records Found INFORMATION SOURCE (unrecogn ized section and content) DATE CREATED AUTHOR 05/02/2022 [facility] dical Specialist DATE CREATED AUTHOR AUTHOR'S ORGANIZ ATION 12/04/2022 [facility] DATE CREATED AUTHOR AUTHOR'S ORGANIZ ATION 01/13/2023 [facility] DATE CREATED AUTHOR AUTHOR'S ORGANIZ ATION 02/13/2023 [facility] DATE CREATED AUTHOR AUTHOR'S ORGANIZ ATION 04/17/2023 [facility] DATE CREATED AUTHOR AUTHOR'S ORGANIZ ATION 02/09/2024 Zelaya Abdulkadir [facility] DATE CREATED AUTHOR AUTHOR'S ORGANIZ ATION 05/05/2024 [facility] DATE CREATED AUTHOR AUTHOR'S ORGANIZ ATION 06/18/2024 [facility] DATE CREATED AUTHOR AUTHOR'S ORGANIZ ATION 11/30/2024 [facility] dical Specialists EPIC DATE CREATED AUTHOR AUTHOR'S ORGANIZ ATION 12/04/2024 [facility] Goals (unrecognized section and content) Goals may be documented in a n alternate section Source Comments (unrecognize d section and content) In the event this informatio n is protected by the Federal Confidentiality of Alcohol and Drug Abuse Patient Records regulations: The Federal rules restrict any use of the information to criminally investigate or prosecute any alcohol or drug abuse patient.[facility] the event this information is protected by the Federal Confidentiality of Alcohol and Drug Abuse Patient Records regulations: The Federal rules restrict any use of the information to criminally investigate or prosecute any alcohol or drug abuse patient.[facility] Reason for Visit (unrecogniz ed section and content) Reason Comments New Patient Specialty Diagnoses / Procedures Referred By Contac t Referred To Contact Physical Therapy Diagnoses Presence of artificial hip joint, right Procedures [place] OFFICE/OUTPATIENT NEW HIGH MDM 60 MINUTES Charissa Blair, DO [address] [facility] [address] [place] [address] [address] [place] [address] Referral ID Status Reason Start Date Expiration Date Visits Requested Visits Authorized [id number] Authorized Specialty Services Required 07/08/2023 01/04/2024 30 30 Reason Comments Follow-up Reason Comments Pain Reason Onset Date Comments Med Refill 04/12/2024 Reason Comments surgical clearance Pt sched 05/03/24 for left hip replacement with Dr Blair at [facility] completed Reason Onset Date Comments Discharge 05/04/2024 Reason Comments Pain Reason Comments URI Reason Comments Medicare Annual Wellness Visit [facility] Med Refill Hydrocodone--[facility] [place]-for back pain [...] feet Specialty Diagnoses / Procedures Referred By Contac t Referred To Contact Diagnoses Primary osteoarthritis of right hip right hip degenerative joint disease Procedures [place] TOTAL HIP ARTHROPLASTY REPLACEMENT TOTAL JOINT HIP Charissa Blair, DO [address] [facility] [address] [place] [address] Referral ID Status Reason Start Date Expiration Date Visits Re quested Visits Authorized [id number] 1 1 Reason Comments Hypertension Results Labs [...] Pre-op 0713 (Given - Provid er: Tianna Holland, GOLDIE) tranexamic acid (LYSTEDA) tablet 1,950 mg (COMPLETED) [...] BE BASED ON THE PRIMARY CLINICAL RECORDS. [employer] [facility]. provides no warranty or guarantee of the accuracy or completeness of information in this document.
--- OUTSIDE RECORDS SUMMARY | 2024-12-07 07:29 | XMS_ITS | Encounter Summary ---
Author Organization [facility] Address [address] [place] [address] Care Team Providers Care Patient Accounts Clerk Name Role Phone Javad Donato MD Unavailable [phone] Javad Donato MD Primary Care Provider [phone] Wednesday, Michelle ARGUETA Unavailable [phone] Encounter Details Date Type Department Care Team (Late st Contact Info) Description 04/05/2024 Abstract [facility] [address] [facility] [address] [place] [address] Javad Donato MD [address] [facility] [address] [place], [place] [id number] Social History Tobacco Use Types Packs/Day Years [...] How often do you attend chur or yarsanism services? 1 to 4 times per year [...] Recorded Patient Health Questionnaire-2 Score 0 05/17/2023 [facility] - Occupational [...] Visit [facility] [address] [facility] [address] [place] [address] Javad Donato MD [address] [facility] [address] [place] [address] 04/30/2025 8:00 AM EST Office Visit [facility] [address] [place] [address] Jose Robins, UNIVERSAL GRINDER OPERATOR [address] [place] [address] documented as of this encounter Visit Diagnoses Not on filedocumented in this encounter Care Teams Patient Accounts Clerk Relationship Specialty Start Date End Date Javad Donato MD [address] [place] [address] PCP - ACO Reach 11/19/22 Javad Donato MD [address] [place] [address] PCP - General Internal Medicine 01/05/23Wednesday, ELLIE Martinez [address] [place] [address] Licensed Practical Nurse Family Medicine 05/08/24 05/16/24 documented as of this encounter
--- OUTSIDE RECORDS SUMMARY | 2024-12-07 07:29 | XMS_ITS | Encounter Summary ---
Author Organization [facility] Address [address] [place] [address] Care Team Providers Care Shake Sawyer Name Role Phone Javad Donato MD Unavailable [phone] Javad Donato MD Primary Care Provider [phone] Wednesday, Michelle ARGUETA Unavailable [phone] Reason for Referral * Rehabilitation - Outpatient (Routine) - Closed Specialty Diagnoses / Procedures Referred By Rayray barkley Referred To Contact Physical Therapy Diagnoses Arthritis of left hip Procedures [place] OFFICE/OUTPATIENT [facility] 60 MINUTES Jose Robins NP [address] [place] [address] Phone: tel: fax: [facility] [address] [place] [address] Phone: tel: fax: Referral ID Status Reason Start Date Expiration Date V isits Requested Visits Authorized [id number] Closed Specialty Services Required 05/03/2024 06/27/2024 1 1 Encounter Details Date Type Department Care Team (Late st Contact Info) Description 05/03/2024 Orders Only [facility] [address] [place] [address] Jose Robins NP [address] [place], [place] [id number] Arthritis of left hip (Primary Dx) Social [...] often do you attend chur ch or catholic services? 1 to 4 times per year 05/10/2023 Do you belong to any clubs o r organizations such as gnosticism groups, unions, fraternal [...] Recorded Patient Health Questionnaire-2 Score 0 05/17/2023 [facility] - Occupational Stress Questionnaire Answer Date Recorded [...] place to sleep or slept in a m[facility]p (including now)? No 05/10/2023 Sex and Gender [...] [address] [place] [address] Javad Donato MD [address] [place] [address] 04/30/2025 8:00 AM EST Office Visit [facility] [address] [place] [id number] Jose Robins, GLASSIE [address] [facility], [place] [id number] Scheduled Referrals Name Type Priority Associated Diagnoses Order Schedule Ambulatory referral to Physical Therapy Outpatient Referral Routine Arthritis of left hip Expected: 05/03/2024 (Approximate), Expires: 10/31/2024 documented as of this encounter Visit Diagnoses Diagnosis Arthritis of left hip- Primary documented in this encounter Care Teams Shake Sawyer Relationship Specialty Start Date End Date Javad Donato MD [address] [facility] [address] [place] [address] PCP - ACO Reach 11/19/22 Javad Donato MD [address] [place] [address] PCP - General Internal Medicine 01/05/23WednesdayMichelle LPN [address] [place] [address] Licensed Practical Nurse Family Medicine 05/08/24 05/16/24 documented as of this encounter
--- NOTE | 2024-12-07 08:04 | PM.CN ---
Consult Note: HPI Data of Consult Patient: known to practice within the last 3 years Consult date: 12/07/24 Requesting Physician: Kath Steiner NP Primary Care Provider: JOHNATHAN LÓPEZ Consult Narrative Reason for consult: left SIJ injection f/u Narrative: Lawson Vela a pleasant 69 year old male presents for evaluation of chronic low back and left hip pain. longstanding hx of low back pain secondary to lumbar spondylosis, lumbar stenosis with NC, and sacroiliitis. pt has failed to benefit from > 6 weeks of PT and provider guided HEP, heat, ice, tylenol, NSAIDs. Since last visit underwent left SIJ injection with 90% improvement per pt, notes significant improvement in pain with walking and activity. Pain 0-1/10 increasing to 3/10 with lifting and standing still. cc:: CC: Kath Steiner NP Review of Systems ROS Musculoskeletal Reports: back pain; Denies: extremity pain or joint pain PFSH PFSH Medical History (Updated 10/25/24 @ 07:58 by Kath Steiner NP) Neuritis ?M79.2 - Neuralgia and neuritis, unspecified (ICD-10) Left carpal tunnel syndrome ?G56.02 - Carpal tunnel syndrome, left upper limb (ICD-10) Osteoarthritis ?M19.90 - Unspecified osteoarthritis, unspecified site (ICD-10) Low back pain ?M54.50 - Low back pain, unspecified (ICD-10) Obesity ?E66.9 - Obesity, unspecified (ICD-10) Enlarged prostate ?N40.0 - Benign prostatic hyperplasia without lower urinary tract symptoms (ICD-10) Former smoker ?Z87.891 - Personal history of nicotine dependence (ICD-10) Hypertension ?I10 - Essential (primary) hypertension (ICD-10) Surgical History H/O carpal tunnel repair ?Z98.890 - Other specified postprocedural states (ICD-10) H/O total hip arthroplasty ?Z96.649 - Presence of unspecified artificial hip joint (ICD-10) Hx of appendectomy ?Z90.49 - Acquired absence of other specified parts of digestive tract (ICD-10) Social History Smoking status: Former smoker Meds Home Medications and Allergies Home Medications ?Medication ?Instructions ?Recorded ?Confirmed ?Type ascorbic acid (vitamin C) 500 mg 500 mg PO DAILY 12/10/22 11/27/24 History tablet (C-500) bee pollen 550 mg capsule mg PO .QD 12/10/22 History carvedilol 6.25 mg tablet 6.25 mg PO BID 12/10/22 11/27/24 History cholecalciferol (vitamin D3) 10 10 mcg PO DAILY 12/10/22 11/27/24 History mcg (400 unit) capsule (Vitamin D3) finasteride 5 mg tablet 5 mg PO .QD 12/10/22 11/27/24 History hydrocodone 5 mg-acetaminophen 325 1 tab PO QID PRN pain 12/10/22 11/27/24 History mg tablet mecobalamin (vitamin B12) 1,000 1,000 mcg PO DAILY 12/10/22 11/27/24 History mcg chewable tablet (B12 Active) meloxicam 15 mg tablet 15 mg PO .QD 12/10/22 11/27/24 History multivitamin 1 tab PO DAILY 12/10/22 11/27/24 History sildenafil 100 mg tablet (Viagra) 100 mg PO DAILY PRN sexual activity 12/10/22 11/27/24 History solifenacin 10 mg tablet 10 mg PO DAILY 12/10/22 11/27/24 History tamsulosin 0.4 mg capsule 0.4 mg PO Q24H 12/10/22 11/27/24 History tizanidine 4 mg capsule 4 mg PO .HS PRN muscle spasticity 12/10/22 11/27/24 History vitamin B complex (Complex B-100 1 tab PO DAILY 12/10/22 11/27/24 History tablet,extended release) zinc 50 mg tablet 50 mg PO DAILY 12/10/22 11/27/24 History Allergies Allergy/AdvReac Type Severity Reaction Status Date / Time No Known Drug Allergies Allergy Verified 11/27/24 10:58 Exam Constitutional Documenting provider has reviewed patient's vital signs: yes Common normals: no apparent distress, oriented x3, healthy appearing, alert and well nourished General appearance: cooperative HENCA Common normals: normocephalic, hearing grossly normal bilaterally and moist oral mucous membranes Head and scalp: normocephalic Eye Common normals: PERRL Pupil: PERRL Neck & C-Spine Common normals: full ROM General: normal visual inspection Chest Common normals: inspection of chest normal Respiratory Common normals: normal respiratory effort, no retractions and no use of accessory muscles Back & Pelvis Lumbar spine/lower back: pain with ROM; ROM not limited and no lumbar spinal tenderness Sacroiliac joints: SI joints normal Other: left sij negative sayra(patricks), gaenslens, thigh thrust, compression test Extremity Common normals: normal to inspection and full ROM Neuro Common normals: oriented x3 Sensorium/orientation: alert Psych Common normals: mental status grossly normal, thought process normal, cooperative, affect normal, speech normal and activity/motor behavior normal Speech: normal speech Thought process: normal thought process Results Additional Findings Additional findings: If on a controlled substance or opioids, I have checked an [place]AR[place] report on this patient and there are no aberrancies noted in the prescribing history.??If on a controlled substance or opioid a drug screen was completed and reviewed within the last year, and if there has not been a drug screen completed we ordered one today to monitor higher risk, state monitored pain medication use. As part of providing excellent, safe, comprehensive care, the following was completed at our patient's visit: 1. A medication reconciliation and review to ensure accurate knowledge of current/active medications, including asking our patients to inform us about any eres-fos-nffzqyo medications or herbal remedies/nutritional supplements/alternative remedies. 2. A review to specifically ensure our patients have had annual screening for screening for depression, screening for tobacco use, and screening for unhealthy alcohol use. For concerning screenings had a discussion with the patient, provided patient education, and recommended follow-up with primary care provider when appropriate. If patient noted with a risk of falling, they received education on strength, gait, and balance training to prevent future risk of falling. Portions of this note may have been carried over from the previous visit and updated as appropriate. Please note this office utilizes paper charting in addition to the electronic medical record. A list of current medications, vitals, and PMH is available there as the clinical staff outside of myself do not have access to [employer] charting during the clinic day operations. As part of providing quality comprehensive care the current medications, vitals, and PMH were reviewed in the paper chart. Assessment and Plan Assessment and Plan (1) Sacroiliitis: Assessment and Plan: 11/27/24 left SIJ injection >80% improvement ongoing (2) Lumbar stenosis with neurogenic claudication: Assessment and Plan: 11/06/24 left L4-5 L5-S1 TFESI >80% improvement ongoing (3) Lumbar spondylosis: Plan 69 year old male with chronic back pain has failed > 6 weeks of PT and provider guided HEP, heat, ice, tylenol, NSAIDs. Since last visit underwent left SIJ injection with 90% improvement per pt, notes significant improvement in pain with walking and activity. Pain 0-1/10 increasing to 3/10 with lifting and standing still. advised to continue HEP as tolerated. medications reviewed, no changes. f/u 2-3 months for evaluation
== END 2024-12-07 07:26 | disposition home or self-care (01) ==
LOC: PM 07:26
PROVIDERS: PCP Internal Medicine; Visit Provider Nurse Practitioner
DX: M46.1 Sacroiliitis, not elsewhere classified (principal); M48.062 Spinal stenosis, lumbar region with neurogenic claudication; M47.816 Spondylosis without myelopathy or radiculopathy, lumbar region
CPT/HCPCS: G0463

== ENCOUNTER 2025-02-08 10:25 | Outpatient (OUT) | payer MEDICARE, OTHER, SELFPAY ==
--- OUTSIDE RECORDS SUMMARY | 2025-02-05 23:59 | XMS_ITS | Continuity of Care Document ---
Author Organization [facility] Address [address] [place] [address] Care Team Providers Care Line Service Supervisor Name Role Phone JOHNATHAN LÓPEZ Primary Care Physician [id number] Date(s): 02/05/25 - 02/05/25 [facility] [address] [address]- Encounter Diagnosis OAB (overactive bladder)(Discharge Diagnosis) - 02/05/25 ED (erectile dysfunction)(Discharge Diagnosis) - 02/05/25 BPH with urinary obstruction(Discharge Diagnosis) - 02/05/25 Discharge Disposition: Home (Routine DC) Attending Physician: Mac SANTIAGO MD Encounter Type: Clinic Allergies, Adverse Reactions, Alerts No Known Allergies Assessment and Plan Future Appointments Appointment Date:02/08/2026 08:15:00 AM Scheduled Provider:Mac SANTIAGO MD Location:[facility] Appointment Type:URO Office Visit Immunizations Given and Recorded Vaccine Date Status Refusal Reason influenza virus vaccine, inactivated 06/14/24 Jeronimo rded influenza virus vaccine, inactivated 05/17/23 Jeronimo rded influenza virus vaccine, inactivated 04/03/22 Jeronimo rded influenza virus vaccine, inactivated 05/21/20 Jeronimo rded influenza virus vaccine, inactivated 04/10/20 Jeronimo rded influenza virus vaccine, inactivated 05/03/19 Jeronimo rded influenza virus vaccine, inactivated 05/02/18 Jeronimo rded influenza virus vaccine, inactivated 06/07/17 Jeronimo rded diphtheria/pertussis, acel/tetanus adult 05/18/23 Recorded RSV vaccine preF3, recombinant 05/18/23 Recorded pneumococcal 13-valent vaccine 05/21/20 Recorded pneumococcal 23-valent vaccine 05/03/19 Recorded zoster vaccine live 05/13/15 Recorded Not Given Vaccine Date Status Refusal Reason SARS-CoV-2 (COVID-19) Ad26 vaccine 08/18/21 Not Given Refused by parent, g uardian, or patient - reschedule Medications cholecalciferol 1,250 mcg, Daily, Refills(s) 0 Start Date: 02/07/24 Status: Ordered Repeat number: 1 finasteride 5 mg Tab 5 mg = 1 tab(s), Oral, Daily, # 90 tab(s), Refills(s) 3, Pharmacy: [facility] [id number], 186, cm, 02/05/25 10:36:00 EDT, Height/Length Dosing, 130.4, kg, 02/05/25 10:36:00 EDT, Weight Dosing Start Date: 02/05/25 Status: Ordered Quantity: 90.0 Unit: tab(s) Repeat number: 4 hydrochlorothiazide-irbesartan 12.5 mg-150 mg Tab 1 tab(s), Oral, Daily Start Date: 02/08/23 Status: Ordered Repeat number: 1 magnesium glycinate 200 mg oral tablet 200 mg = 1 tab(s), Oral, q24hr, Refills(s) 0 Start Date: 02/07/24 Status: Ordered Repeat number: 1 Edward 325 mg-5 mg oral tablet 1 tab(s), Oral, q6hr, Refill(s) 0 Start Date: 02/07/24 Status: Ordered Repeat number: 1 sildenafil 100 mg Tab 100 mg = 1 tab(s), REGIMEN As Directed, Refills(s) 0 Start Date: 02/07/24 Status: Ordered Repeat number: 1 tamsulosin 0.4 mg Cap 0.4 mg = 1 cap(s), Oral, BID, # 180 cap(s), Refills(s) 3, Pharmacy: [facility] [id number], 186, cm, 02/05/25 10:36:00 EDT, Height/Length Dosing, 130.4, kg, 02/05/25 10:36:00 EDT, Weight Dosing Start Date: 02/05/25 Status: Ordered Quantity: 180.0 Unit: cap(s) Repeat number: 4 tiZANidine 4 mg Tab 4 mg = 1 tab(s), Oral, q8hr, Refills(s) 0 Start Date: 02/07/24 Status: Ordered Repeat number: 1 Tylenol Extra Strength 500 mg oral tablet See Instructions, tab(s) mg Oral q6hr, Refills(s) 0 Start Date: 02/07/24 Status: Ordered Repeat number: 1 Vesicare 10 mg Tab 10 mg = 1 tab(s), Oral, Daily, # 90 tab(s), Refills(s) 3, Pharmacy: [facility] [id number], 186, cm, 02/05/25 10:36:00 EDT, Height/Length Dosing, 130.4, kg, 02/05/25 10:36:00 EDT, Weight Dosing Start Date: 02/05/25 Status: Ordered Quantity: 90.0 Unit: tab(s) Repeat number: 4 Vitamin B Complex oral capsule 1 cap(s), Oral, Daily, Refill(s) 0 Start Date: 02/07/24 Status: Ordered Repeat number: 1 Vitamin C Daily, Refills(s) 0 Start Date: 02/16/22 Status: Ordered Repeat number: 1 Zinc mg, Oral, Daily, Refills(s) 0 Start Date: 02/16/22 Status: Ordered Repeat number: 1 Problem List Condition Confirmation Course Effective Dates Status Health St atus Informant Arthritis Confirmed Active BPH with urinary obstruction Confirmed Active BMI 35.0-35.9,adult Confirmed Active ED (erectile dysfunction) Confirmed Active Gout Confirmed Active Headache Confirmed Active Hyperlipemia Confirmed Active Hypertension Confirmed Active Urinary frequency Confirmed Active Head injury Confirmed Active Nocturia Confirmed Active OAB (overactive bladder) Confirmed Active Post-void dribbling Confirmed Active Urge incontinence Confirmed Active Procedures Procedure Date Related Diagnosis Body Site Status Urodynamics 04/22/21 Completed Cystoscopy 11/26/20 Completed Vasectomy 2009 Completed Appendectomy 1967 Completed Arthroplasty of right hip Completed Carpal tunnel Completed Colonoscopy Completed Social History Social History Type Response Smoking Status Former smoker, quit more than 30 days ago;Never entered on: 02/05/25 Sex Male Sex Representation Male (finding) Hospital Discharge Instructions Patient Education 02/05/2025 11:51:43 Overactive Bladder, Adult Overactive Bladder, Adult Overactive bladder is a condition in which a person has a sudden and frequent need to urinate. A person might also leak urine if he or she cannot get to the bathroom fast enough (urinary incontinence). Sometimes, symptoms can interfere with work or social activities. What are the causes? Overactive bladder is associated with poor nerve signals between your bladder and your brain. Your bladder may get the signal to empty before it is full. You may also have very sensitive muscles thatmake your bladder squeeze too soon. This condition may also be caused by other factors, such as: ??? Medical conditions: ??? Urinary tract infection. ??? Infection of nearby tissues. ??? Prostate enlargement. ??? Bladder stones, inflammation, or tumors. ??? Diabetes. ??? Muscle or nerve weakness, especially from these conditions: ??? A spinal cord injury. ??? Stroke. ??? Multiple sclerosis. ??? Parkinson's disease. ??? Other causes: ??? Surgery on the uterus or urethra. ??? Drinking too much caffeine or alcohol. ??? Certain medicines, especially those that eliminate extra fluid in the body (diuretics). ??? Constipation. What increases the risk? You may be at greater risk for overactive bladder if you: ??? Are an older adult. ??? Smoke. ??? Are going through menopause. ??? Have prostate problems. ??? Have a neurological disease, such as stroke, dementia, Parkinson's disease, or multiple sclerosis (MS). ??? Eat or drink alcohol, spicy food, caffeine, and other things that irritate the bladder. ??? Are overweight or obese. What are the signs or symptoms? Symptoms of this condition include a sudden, strong urge to urinate. Other symptoms include: ??? Leaking urine. ??? Urinating 8 or more times a day. ??? Waking up to urinate 2 or more times overnight. How is this diagnosed? This condition may be diagnosed based on: ??? Your symptoms and medical history. ??? A physical exam. ??? Blood or urine tests to check for possible causes, such as infection. You may also need to see a health care provider who specializes in urinary tract problems. This is called a urologist. How is this treated? Treatment for overactive bladder depends on the cause of your condition and whether it is mild or severe. Treatment may include: ??? Bladder training, such as: ??? Learning to control the urge to urinate by following a schedule to urinate at regular intervals. ??? Doing Kegel exercises to strengthen the pelvic floor muscles that support your bladder. ??? Special devices, such as: ??? Biofeedback. This uses sensors to help you become aware of your body's signals. ??? Electrical stimulation. This uses electrodes placed inside the body (implanted) or outside the body. These electrodes send gentle pulses of electricity to strengthen the nerves or muscles that control the bladder. ??? Women may use a plastic device, called a pessary, that fits into the vagina and supports the bladder. ??? Medicines, such as: ??? Antibiotics to treat bladder infection. ??? Antispasmodics to stop the bladder from releasing urine at the wrong time. ??? Tricyclic antidepressants to relax bladder muscles. ??? Injections of botulinum toxin type A directly into the bladder tissue to relax bladder muscles. ??? Surgery, such as: ??? A device may be implanted to help manage the nerve signals that control urination. ??? An electrode may be implanted to stimulate electrical signals in the bladder. ??? A procedure may be done to change the shape of the bladder. This is done only in very severe cases. Follow these instructions at home: Eating and drinking ??? Make diet or lifestyle changes recommended by your health care provider. These may include: ??? Drinking fluids throughout the day and not only with meals. ??? Cutting down on caffeine or alcohol. ??? Eating a healthy and balanced diet to prevent constipation. This may include: ??? Choosing foods that are high in fiber, such as beans, whole grains, and fresh fruits and vegetables. ??? Limiting foods that are high in fat and processed sugars, such as fried and sweet foods. Lifestyle ??? Lose weight if needed. ??? Do not use any products that contain nicotine or tobacco. These include cigarettes, chewing tobacco, and vaping devices, such as e-cigarettes. If you need help quitting, ask your health care provider. General instructions ??? Take rhxm-tri-rwouhrw and prescription medicines only as told by your health care provider. ??? If you were prescribed an antibiotic medicine, take it as told by your health care provider. Donot stop taking the antibiotic even if you start to feel better. ??? Use any implants or pessary as told by your health care provider. ??? If needed, wear pads to absorb urine leakage. ??? Keep a log to track how much and when you drink, and when you need to urinate. This will help your health care provider monitor your condition. ??? Keep all follow-up visits. This is important. Contact a health care provider if: ??? You have a fever or chills. ??? Your symptoms do not get better with treatment. ??? Your pain and discomfort get worse. ??? You have more frequent urges to urinate. Get help right away if: ??? You are not able to control your bladder. Summary ??? Overactive bladder refers to a condition in which a person has a sudden and frequent need to urinate. ??? Several conditions may lead to an overactive bladder. ??? Treatment for overactive bladder depends on the cause and severity of your condition. ??? Making lifestyle changes, doing Kegel exercises, keeping a log, and taking medicines can help with this condition. This information is not intended to replace advice given to you by your health care provider. Make sure you discuss any questions you have with your health care provider. Document Revised: 03/03/2021 Document Reviewed: 03/03/2021 [employer] Patient Education ?? 2023 [employer]. Follow Up Care 02/07/2024 11:34:29 With:PAMELA BAER, Mac Stephenson, URL Address: [address] [place] [address] When: Unknown Patient Care team information Care Team Personnel Name: JOHNATHAN LÓPEZ MD Position: FT Physician Member Role: Primary Care Physician Address: [address] [place] [address]- Telecom: Care Team Related Persons Name: NICOLÁS HUGHES Name: NICOLÁS HUGHES Name: NICOLÁS HUGHES Name: LINUS WILKS Insurance Providers Guarantor name: Health Plan Information #: 1 Payer: NA Payer Identifier: [id number] Member Number: [id number] Group Number: PART A AND B Subscriber Identifier: [id number] Relationship to Subscriber: Self Coverage Type: MEDICARE Coverage Verification Date: 25 Telecom: Address: Health Plan Information #: 2 Payer: Payer Identifier: [id number] Member Number: [id number] Group Number: [id number] Subscriber Identifier: [id number] Relationship to Subscriber: Self Coverage Type: PRIVATE HEALTH INSURANCE Coverage Verification Date: 25 Telecom: Address:
--- OUTSIDE RECORDS SUMMARY | 2025-02-08 10:27 | XMS_ITS | Encounter Summary ---
Author Organization [facility] Address [address] [place] [address] Care Team Providers Care Small Business Banking Officer Name Role Phone Javad Donato MD Unavailable [phone] Javad Donato MD Primary Care Provider [phone] Wednesday, Michelle ARGUETA Unavailable [phone] Encounter Details Date Type Department Care Team (Late st Contact Info) Description 04/14/2023 [facility] [place] [facility] 112 [facility] 110 [place] [address] Javad Donato MD 112 [facility] 110 [place] [address] Social History Tobacco Use Types Packs/Day Years [...] Description 04/26/2025 9:00 AM EDT Office Visit [facility] [address] [place] [address] [place] [address] Javad Donato MD [address] [place] [address] [place] [address] 04/30/2025 8:00 AM EST Office Visit [facility] [address] [place] [phone] Jose Robins, PULVI MIXER OPERATOR [address] [place] [address] documented as of this encounter Visit Diagnoses Not on filedocumented in this encounter Care Teams Small Business Banking Officer Relationship Specialty Start Date End Date Javad Donato MD [address] [place] [address] [place] [address] PCP - ACO Reach 11/19/22 Javad Donato MD [address] [place] [address] [place] [address] PCP - General Internal Medicine 01/05/23Wednesday, ELLIE Martinez [address] [place] [address] Licensed Practical Nurse Family Medicine 05/08/24 05/16/24 documented as of this encounter
--- OUTSIDE RECORDS SUMMARY | 2025-02-08 10:28 | XMS_ITS | Encounter Summary ---
Author Organization [facility] Address [address] [place] [address] Care Team Providers Care Data Management Analyst Name Role Phone Javad Donato MD Unavailable [phone] Javad Donato MD Primary Care Provider Wednesday, Michelle ARGUETA Unavailable [phone] Encounter Details Date Type Department Care Team (Late st Contact Info) Description 06/29/2023 [facility] [place] [facility] [address] [facility] 110 [place] [address] Javad Donato MD 112 [facility] 110 [place], [place] [id number] Social History Tobacco Use Types Packs/Day Years [...] How often do you attend chur or holiness services? 1 to 4 times per year 05/10/2023 Do you belong to any clubs o r organizations such as restorationism groups, unions, fraternal or athletic groups, or [...] Recorded Patient Health Questionnaire-2 Score 0 05/17/2023 [facility] - Occupational [...] 9:00 AM EDT [facility] 112 [facility] 110 [place] [address] Javad Donato MD 112 [facility] 110 [place] [address] 04/30/2025 8:00 AM EST Office Visit [facility] [place] [address] Jose Robins, MOVING PICTURE PRODUCER [address] [place], [place] [id number] documented as of this encounter Visit Diagnoses Not on filedocumented in this encounter Care Teams Data Management Analyst Relationship Specialty Start Date End Date Javad Donato MD [address] [place] [address] [place] [address] PCP - ACO Reach 11/19/22 Javad Donato MD [address] [place] [address] [place] [address] PCP - General Internal Medicine 01/05/23WednesdayMichelle LPN [address] [place] [address] Licensed Practical Nurse Family Medicine 05/08/24 05/16/24 documented as of this encounter
--- OUTSIDE RECORDS SUMMARY | 2025-02-08 10:28 | XMS_ITS | Clinical Summary ---
Author Organization [facility] Address [address] [place] [address] Care Team Providers Care Remote Control Mirror Installer Name Role Phone Unavailable Primary Care Provider [...] is lower risk 6 04/13/2023 Data from: https://www.neighborhoodatlas.medicine.[facility]/. Last address used for calculation [address] [...] Shingrix Vaccine (2 of 3) 07/08/2015 05/13/2015 Advance Directive Discussion 06/28/2024 Influenza Vaccine (#1) 2025 2, 05/21/2020, 04/10/2020, Additional history exists RSV Vaccine (1 - 1-dose 75+ series) 2029 Pneumococcal Vaccine: 50+ Completed 05/21/2020, 11/2018 Insurance O MEDICARE SUPPLEMENT MEDICARE
--- OUTSIDE RECORDS SUMMARY | 2025-02-08 10:28 | XMS_ITS | Encounter Summary ---
Author Organization [facility] Address [address] [place] [address] Care Team Providers Care Aircraft Loadmaster Superintendent Name Role Phone Jvaad Donato MD Unavailable [phone] Javad Donato MD Primary Care Provider [phone] Wednesday, Michelle ARGUETA Unavailable [phone] Encounter Details Date Type Department Care Team (Late st Contact Info) Description 03/16/2023 Abstract [facility] [place] [address] [facility] 110 [place] [address] Javad Donato MD [address] [facility] 110 [place] [address] Social History Tobacco Use Types Packs/Day Years [...] 04/26/2025 9:00 AM EDT Office Visit [facility] [place] [facility] [address] [place] [address] [place] [address] Javad Donato MD [address] [place] [address] [place] [address] 04/30/2025 8:00 AM EST Office Visit [facility] [address] [place] [address] Jose Robins, PERSONAL CARE AID [address] [place] [address] documented as of this encounter Visit Diagnoses Not on filedocumented in this encounter Care Teams Aircraft Loadmaster Superintendent Relationship Specialty Start Date End Date Javad Donato MD [address] [place] [address] [place] [address] PCP - ACO Reach 11/19/22 Javad Donato MD [address] [place] [address] [place] [address] PCP - General Internal Medicine 01/05/23Wednesday, ELLIE Martinez [address] [place] [address] Licensed Practical Nurse Family Medicine 05/08/24 05/16/24 documented as of this encounter
--- OUTSIDE RECORDS SUMMARY | 2025-02-08 10:28 | XMS_ITS | Encounter Summary ---
Author Organization [facility] Address [address] [place] [address] Care Team Providers Care Motorized Squad Commanding Officer Name Role Phone Javad Donato MD Unavailable [phone] Javad Donato MD Primary Care Provider [phone] Encounter Details Date Type Department Care Team [...] How often do you attend chur or adventist services? 1 to 4 times per year 05/10/2023 Do you belong to any clubs o r organizations such as confucianism groups, unions, fraternal or athletic groups, or [...] Recorded Patient Health Questionnaire-2 Score 0 06/08/2024 [facility] ional Health - Occupational [...] 04/26/2025 9:00 AM EDT Office Visit [facility] [address] [facility] 110 [place] [address] Javad Donato MD 112 [facility] 110 [place] [address] 04/30/2025 8:00 AM EST Office Visit [facility] [address] [place] [address] Jose Robins, YISEL [address] [place], [place] [phone] documented as of this encounter Procedures Procedure Name Priority Date/Time Associated Diagnosis Comments XR LUMBAR SPINE 6V W BENDING 06/17/2024 7:57 AM EST documented in this encounter Results * XR LUMBAR SPINE 6V W BENDING (06/17/2024 7:57 AM EST) Anatomical Region Laterality Modality Other 06/17/2024 7:57 AM EST Narrative 06/17/2024 7:59 [place] [address] XRay Report Signed Patient: CANDACE VELA MR#: [id number] : 1955 Acct:[id number] Age/Sex: 69 / M ADM Date: 06/16/24 Loc: RAD Attending Dr: Yosef Cheema NP Ordering Physician: Yosef Cheema NP Date of Service: 06/16/24 Procedure(s): XR lumbar spine 6V w bending Accession Number(s): [id number] cc: JAVAD DONATO ; Yosef Cheema NP [place] [address] Patient Name: CANDACE VELA MRN: [id number] date: 1955 Sex: M Assigned Patient Location: [facility] Current Patient Location: Accession/Order Number: [id number] Exam Date: 06/16/2024 12:03 Report Date: 06/17/2024 [...] Signed By: 06/17/24 0759 DD/ 0757 TD/TT: Berry Picker Machine Operator: Procedure Note Radiology, Radiologist, MD - 06/17/2024 [place] [address] XRay Report Signed Patient: CANDACE VELA GMR#: [id number] : 1955cct:[id number] Age/Sex: 69 / MADM Date: 06/16/24 Loc: RAD Attending Dr: Yosef Cheema NP Ordering Physician: Yosef Cheema NP Date of Service: 06/16/24 Procedure(s): XR lumbar spine 6V w bending Accession Number(s): [id number] cc: JAVAD DONATO ; Yosef Cheema NP [place] [address] Patient Name: CANDACE VELA MRN: [id number] date: 1955 Sex: M Assigned Patient Location: [facility] Current Patient Location: Accession/Order Number: [id number] Exam Date: 06/16/2024 12:03 Report Date: 06/17/2024 [...] M.D. Signed By:06/17/24 0759 DD/ 0757 TD/TT: Berry Picker Machine Operator: us Generic External Data Provider [facility] Final Result documented in this encounter Visit Diagnoses Not on filedocumented in this encounter Care Teams Motorized Squad Commanding Officer Relationship Specialty Start Date End Date Javad Donato MD [address] [facility] 110 [place] [address] PCP - ACO Reach 11/19/22 Javad Donato MD [address] [facility] 110 [place] [address] PCP - General Internal Medicine 01/05/23 documented as of this encounter
--- OUTSIDE RECORDS SUMMARY | 2025-02-08 10:28 | XMS_ITS | Encounter Summary ---
Author Organization [facility] Address [address] [place] [address] Care Team Providers Care Scorer Helper Name Role Phone Javad Donato MD Unavailable [phone] Javad Donato MD Primary Care Provider [phone] Encounter Details Date Type Department Care Team (Late st Contact Info) Description 06/15/2024 Abstract [facility] [place] [facility] [address] [facility] 110 [place] [address] Javad Donato MD 112 [facility] 110 [place], [place] [id number] Social History Tobacco Use Types Packs/Day Years [...] week 05/10/2023 How often do you attend [facility] or adventist services? 1 to 4 times [...] Recorded Patient Health Questionnaire-2 Score 0 06/08/2024 [facility] Occupat ional [...] 9:00 AM EDT [facility] [place] [facility] [address] [facility] 110 [place] [address] Javad Donato MD [address] [facility] 110 [place] [address] 04/30/2025 8:00 AM EST Office Visit [facility] [address] [place] [address] Jose Robins, PATENT PARALEGAL [address] [place], [place] [phone] documented as of this encounter Visit Diagnoses Not on filedocumented in this encounter Care Teams Scorer Helper Relationship Specialty Start Date End Date Javad Donato MD [address] [facility] 110 [place] [address] PCP - ACO Reach 11/19/22 Javad Donato MD [address] [facility] 110 [place] [address] PCP - General Internal Medicine 01/05/23 documented as of this encounter
--- OUTSIDE RECORDS SUMMARY | 2025-02-08 10:28 | XMS_ITS | Encounter Summary ---
Author Organization [facility] Address [address] [place] [address] Care Team Providers Care Custom Feed Mill Operator Name Role Phone Javad Donato MD Unavailable [phone] Javad Donato MD Primary Care Provider Wednesday, Michelle ARGUETA Unavailable [phone] Encounter Details Date Type Department Care Team (Late st Contact Info) Description 03/02/2023 Abstract [facility] [place] [address] [facility] 110 [place] [address] Javad Donato MD [address] [facility] [[email or web address]] 110 [place] [address] Social History Tobacco Use Types Packs/Day Years [...] 9:00 AM EDT Office Visit [facility] [place] [address] [place] [address] [place] [address] Javad Donato MD [address] [place] [address] [place] [address] 04/30/2025 8:00 AM EST Office Visit [facility] [address] SHAHRZADCED[facility] [place] [address] Jose Robins, MARKETING PRODUCTION COORDINATOR [address] [place] [address] documented as of this encounter Visit Diagnoses Not on filedocumented in this encounter Care Teams Custom Feed Mill Operator Relationship Specialty Start Date End Date Javad Donato MD [address] [place] [address] [place] [address] PCP - ACO Reach 11/19/22 Javad Donato MD [address] [place] [address] [place] [address] PCP - General Internal Medicine 01/05/23Wednesday, ELLIE Martinez [address] [place] [address] Licensed Practical Nurse Family Medicine 05/08/24 05/16/24 documented as of this encounter
--- OUTSIDE RECORDS SUMMARY | 2025-02-08 10:28 | XMS_ITS | Encounter Summary ---
Author Organization [facility] Address [address] [place] [address] Care Team Providers Care Pet Care Assistant Name Role Phone Javad Donato MD Unavailable [phone] Javad Donato MD Primary Care Provider [phone] Wednesday, Michelle ARGUETA Unavailable [phone] Reason for Visit * Reason Onset Date Comments Med Refill 12/07/2023 Encounter Details Date Type Department Care Team (Late st Contact Info) Description 12/07/2023 Refill [facility] [place] [facility] [address] [facility] 110 [place] [address] Javad Donato MD [address] [facility] 110 [place], [place] [address] Social History Tobacco Use Types Packs/Day Years [...] often do you attend chur ch or uatsdin services? 1 to 4 times per year [...] Recorded Patient Health Questionnaire-2 Score 0 05/17/2023 [facility] of Occupat ional Health - [...] 9:00 AM EDT Office Visit [facility] [place] [facility] [address] [facility] 110 [place] [address] Javad Donato MD [address] [facility] 110 [place] [address] 04/30/2025 8:00 AM EST Office Visit [facility] [address] [place] [address] Jsoe Robins, LEAD SECURITY OFFICER [address] [place] [address] documented as of this encounter Visit Diagnoses Not on filedocumented in this encounter Care Teams Pet Care Assistant Relationship Specialty Start Date End Date Javad Donato MD [address] [place] [address] [place] [address] PCP - ACO Reach 11/19/22 Javad Donato MD [address] [place] [address] [place] [address] PCP - General Internal Medicine 01/05/23Wednesday, ELLIE Martinez [address] [place] [address] Licensed Practical Nurse Family Medicine 05/08/24 05/16/24 documented as of this encounter
--- OUTSIDE RECORDS SUMMARY | 2025-02-08 10:28 | XMS_ITS | Encounter Summary ---
Author Organization [facility] Address [address] [place] [address] Care Team Providers Care Latrine Cleaner Name Role Phone Javad Donato MD Unavailable [phone] Javad Donato MD Primary Care Provider [phone] Wednesday, Michelle ARGUETA Unavailable [phone] Encounter Details Date Type Department Care Team (Late st Contact Info) Description 07/07/2023 Abstract [facility] [place] [facility] 112 [facility] 110 [place] [address] Javad Donato MD 112 [facility] 110 [place], [place] [address] Social History Tobacco Use Types Packs/Day Years [...] any clubs o r organizations such as mosque groups, unions, fraternal or athletic groups, or [...] Recorded Patient Health Questionnaire-2 Score 0 05/17/2023 [facility] of Occupat ional Health - Occupational [...] 9:00 AM EDT Office Visit [facility] [address] [place] [address] [place] [address] Javad Donato MD [address] [place] [address] [place] [address] 04/30/2025 8:00 AM EST Office Visit [facility] [address] [place] [address] Jose Robins, SENIOR INTERNET SALES CONSULTANT [address] [place] [address] documented as of this encounter Visit Diagnoses Not on filedocumented in this encounter Care Teams Latrine Cleaner Relationship Specialty Start Date End Date Javad Donato MD [address] [place] [address] [place] [address] PCP - ACO Reach 11/19/22 Javad Donato MD [address] [place] [address] [place] [address] PCP - General Internal Medicine 01/05/23Wednesday, ELLIE Martinez [address] [place] [address] Licensed Practical Nurse Family Medicine 05/08/24 05/16/24 documented as of this encounter
--- OUTSIDE RECORDS SUMMARY | 2025-02-08 10:28 | XMS_ITS | Encounter Summary ---
Author Organization [facility] Address [address] [place] [address] Care Team Providers Care Molded Frames Assembler Name Role Phone Unavailable Primary Care Provider Unavailabl e Source Comments In the event this information is protected by the Federal Confidentiality of Alcohol and Drug AbusePatient Records regulations: The Federal rules restrict any use of the information to criminally investigate or prosecute any alcohol or drug abuse patient.[facility] Encounter Details Date Type Department Care Team (Late st Contact Info) Description 04/13/2023 Get Medical Advice [facility] [address] [place] [address] Mercedes Pan PA-C [address] [place] [address] Pain management reports Social History Tobacco Use Types Packs/Day Years Used Date Smoking Tobacco: Never Assessed PHQ-2 Answer Date Recorded PHQ-2 score 1 04/13/2023 Area Deprivation Index Answer Date Jeronimo rded National Score (1-100), lower number is lower ri sk 76 04/13/2023 State Score (1-10), lower number is lower risk 6 04/13/2023 Data from: https://www.neighborhoodatlas.[facility].edu/. Last address used for calculation [address] [...]
--- OUTSIDE RECORDS SUMMARY | 2025-02-08 10:28 | XMS_ITS | Encounter Summary ---
Author Organization [facility] Address [address] [place] [address] Care Team Providers Care Houseperson Name Role Phone Javad Donato MD Unavailable [phone] Javad Donato MD Primary Care Provider Wednesday, Michelle ARGUETA Unavailable [phone] Encounter Details Date Type Department Care Team (Late st Contact Info) Description 07/07/2023 Abstract [facility] [place] [facility] 112 [facility] 110 [place] [address] Javad Doanto MD 112 [facility] 110 [place], [place] [address] Social History Tobacco Use Types Packs/Day Years [...] any clubs o r organizations such as samaritan groups, unions, fraternal or athletic groups, or [...] Recorded Patient Health Questionnaire-2 Score 0 05/17/2023 [facility] of Occupat ional Health - Occupational [...] place to sleep or slept in a fci (including now)? No 05/10/2023 Sex and Gender [...] 9:00 AM EDT Office Visit [facility] [address] [place] [address] [place] [address] Javad Donato MD [address] [place] [address] [place] [address] 04/30/2025 8:00 AM EST Office Visit [facility] [address] [place] [address] Jose Robins, FREIGHT SHIPPING AGENT [address] [place] [address] documented as of this encounter Visit Diagnoses Not on filedocumented in this encounter Care Teams Houseperson Relationship Specialty Start Date End Date Javad Donato MD [address] [place] [address] [place] [address] PCP - ACO Reach 11/19/22 Javad Donato MD [address] [place] [address] [place] [address] PCP - General Internal Medicine 01/05/23Wednesday, ELLIE Martinez [address] [place] [address] Licensed Practical Nurse Family Medicine 05/08/24 05/16/24 documented as of this encounter
--- OUTSIDE RECORDS SUMMARY | 2025-02-08 10:28 | XMS_ITS | Clinical Summary ---
Author Organization [facility] Address [address] [place] [address] Care Team Providers Care Injection Moulding Machine Operator Name Role Phone Javad Donato MD Unavailable [phone] Javad Donato MD Primary Care Provider [phone] Allergies Active Allergy Reactions Criticality Noted Date [...] tablet 3 06/23/20 24 Active HYDROcodone-acetami nophen (Burdette) 5-325 MG tabletIndications:H erniated lumbar disc without [...] bedtime. 30 g 2 11/30/19 25 Active amoxicillin (Amoxil) 500 MG tabletIndications:S tatus post right hip replacement 4 tabs PO once 30-60 mins before procedure with food 4 tablet 3 11/30/19 25 Active Active Problems Problem Noted Date Diagnosed [...] 11/29/2024 11:30 AM EDT Office Visit [facility] [place] [place] [address] Alma Akins PA Herniated lumbar disc without myelopathy (Primary Dx); Benign essential hypertension ; S/P total left hip arthroplasty; Tinea pedis of both feet; Skin irritation; Open wound of left lower leg, initial encounter; Class 2 severe obesity due to excess calories with serious comorbidity and body mass index (BMI) of 38.0 to 38.9 in adult ([facility]); Umbilical hernia without obstruction and without gangrene; Status post right hip replacement 11/29/2024 Bamboo flowsheet [facility] [place] [facility] 112 [facility] 110 [place] [address] Alma Akins PA 11/29/2024 Travel 11/27/2024 Telephone [facility] [address] [place] [address] Javad Donato MD Med Refill 11/09/2024 [facility] 112 [facility] 110 [place] [address] France Farah LPN Herniated lumbar disc without myelopathy from Last 3 Months Immunizations Immunization Administration [...] Recorded Patient Health Questionnaire-2 Score 0 11/29/2024 [facility] - Occupational Stress Questionnaire Answer [...] 9:00 AM EDT Office Visit [facility] [place] [facility] [address] [facility] 110 [place] [address] Javad Donato MD [address] [facility] 110 [place] [address] 04/30/2025 8:00 AM EST Office Visit [facility] [address] [place] [address] Jose Robins, PEDODONTIST [address] [place] [address] Health Maintenance Due Date Last Done Comments CT Colonography 1954 FIT-DNA 1954 FIT 1954 FOBT 1954 Sigmoidoscopy 1954 Influenza Vaccine (#1) 2025 , 05/17/2023, 04/03/2022, Additional history exists Medicare Annual Wellness (AWV) 06/14/2025 1 08/15/2023, 05/17/2023, 05/11/2022 Colonoscopy 07/12/2027 07/12/2017 Colorectal Cancer Screening 07/12/2027 Pneumococcal Vaccine: 65+ Years Completed 05/21/2020, 05/03/2019, 05/03/2019 Procedures Procedure Name Priority Date/Time Associated Diagnosis Comments COLONOSCOPY Routine 07/12/2017 12:00 PM EST from Last 3 Months or Most Recently Relevant to Health Maintenance Results * Colonoscopy (07/12/2017 12:00 PM EST) Anatomical Region Laterality Modality Endoscopy 07/12/2017 12:0 0 PM EST Narrative 07/12/2017 12:00 PM EST PERFORMED AT [facility] LOCATION:[id number] internal hemorrhoids, diverticulosis Procedure Note CONVERSION, GENERIC - 11/11/2022 PERFORMED AT [facility] LOCATION:[id number] internal hemorrhoids, diverticulosis us Javad Donato MD ENDOSCOPY PROCEDURE ORDERABLES Final Result from Last 3 Months or Most Recently Relevant to Health Maintenance Insurance [employer] Care Teams Injection Moulding Machine Operator Relationship Specialty Start Date End Date Javad Donato MD [address] [facility] 110 [place] [address] PCP - ACO Reach 11/19/22 Javad Donato MD [address] [facility] 110 [place] [address] PCP - General Internal Medicine 01/05/23
--- OUTSIDE RECORDS SUMMARY | 2025-02-08 10:28 | XMS_ITS | Encounter Summary ---
Author Organization [facility] Address [address] [place] [address] Care Team Providers Care Entertainment Director Name Role Phone Javad Donato MD Unavailable [phone] Javad Donato MD Primary Care Provider [phone] Wednesday, Michelle ARGUETA Unavailable [phone] Encounter Details Date Type Department Care Team (Late st Contact Info) Description 01/11/2023 Abstract [facility] [place] [address] [facility] 110 [place] [address] Javad Donato MD [address] [facility] 110 [place] [address] Social History Tobacco Use Types Packs/Day Years [...] 9:00 AM EDT Office Visit [facility] [place] [facility] [address] [place] [address] [place] [address] Javad Donato MD [address] [place] [address] [place] [address] 04/30/2025 8:00 AM EST Office Visit [facility] [place] [facility] [address] [place] [address] Jose Robins, BASEBALL PITCHER [address] [place] [address] documented as of this encounter Visit Diagnoses Not on filedocumented in this encounter Care Teams Entertainment Director Relationship Specialty Start Date End Date Javad Donato MD [address] [place] [address] [place] [address] PCP - ACO Reach 11/19/22 Javad Donato MD [address] [place] [address] [place] [address] PCP - General Internal Medicine 01/05/23Wednesday, ELLIE Martinez [address] [place] [address] Licensed Practical Nurse Family Medicine 05/08/24 05/16/24 documented as of this encounter
--- OUTSIDE RECORDS SUMMARY | 2025-02-08 10:28 | XMS_ITS | Encounter Summary ---
Author Organization [facility] Address [address] [place] [address] Care Team Providers Care Showcase Trimmer Name Role Phone Javad Donato MD Unavailable [phone] Javad Donato MD Primary Care Provider [phone] Wednesday, Michelle ARGUETA Unavailable [phone] Reason for Referral * Rehabilitation - Outpatient (Routine) - Closed Specialty Diagnoses / Procedures Referred By Rayray barkley Referred To Contact Physical Therapy Diagnoses Arthritis of left hip Procedures MA OFFICE/OUTPATIENT [facility] 60 MINUTES Jose Robins NP [address] [place] [address] Phone: tel: fax: [facility] [address] [place] [address] Phone: tel: fax: Referral ID Status Reason Start Date Expiration Date V isits Requested Visits Authorized [id number] Closed Specialty Services Required 05/03/2024 06/27/2024 1 1 Encounter Details Date Type Department Care Team (Late st Contact Info) Description 05/03/2024 Orders Only [facility] [address] [place] [address] Jose Robins NP [address] [place], [place] [phone] Arthritis of left hip (Primary Dx) Social [...] often do you attend chur ch or quaker services? 1 to 4 times per year 05/10/2023 Do you belong to any clubs o r organizations such as nondenominational groups, unions, fraternal or athletic groups, or [...] Recorded Patient Health Questionnaire-2 Score 0 05/17/2023 [facility] - Occupational Stress Questionnaire Answer Date [...] 04/26/2025 9:00 AM EDT Office Visit [facility] [address] [place] [address] [place] [address] Javad Donato MD [address] [place] [address] [place] [address] 04/30/2025 8:00 AM EST Office Visit [facility] [address] [place] [address] Jose Robins, YISEL [address] [place] [address] Scheduled Referrals Name Type Priority Associated Diagnoses Order Schedule Ambulatory referral to Physical Therapy Outpatient Referral Routine Arthritis of left hip Expected: 05/03/2024 (Approximate), Expires: 10/31/2024 documented as of this encounter Visit Diagnoses Diagnosis Arthritis of left hip- Primary documented in this encounter Care Teams Showcase Trimmer Relationship Specialty Start Date End Date Javad Donato MD [address] [facility] 110 [place] [address] PCP - ACO Reach 11/19/22 Javad Donato MD [address] [place] [address] [place] [address] PCP - General Internal Medicine 01/05/23WednesdayMichelle LPN [address] [place] [address] Licensed Practical Nurse Family Medicine 05/08/24 05/16/24 documented as of this encounter
--- OUTSIDE RECORDS SUMMARY | 2025-02-08 10:28 | XMS_ITS | Encounter Summary ---
Author Organization [facility] Address [address] [place] [address] Care Team Providers Care Field Sales Executive Name Role Phone Javad Donato MD Unavailable [phone] Javad Donato MD Primary Care Provider Wednesday, Michelle ARGUETA Unavailable [phone] Encounter Details Date Type Department Care Team (Late st Contact Info) Description 02/03/2023 Abstract [facility] [place] [address] [facility] 110 [place] [address] Javad Donato MD [address] [facility] [[email or web address] 110 [place] [address] Social History Tobacco Use Types Packs/Day Years [...] [place] [address] [place] [address] [place] [address] Javad Donato MD [address] [place] [address] [place] [address] 04/30/2025 8:00 AM EST Office Visit [facility] [address] SHAHRZADNOR[place] [address] Jose Robins, STUDENT NURSE [address] [place] [address] documented as of this encounter Visit Diagnoses Not on filedocumented in this encounter Care Teams Field Sales Executive Relationship Specialty Start Date End Date Javad Donato MD [address] [place] [address] [place] [address] PCP - ACO Reach 11/19/22 Javad Donato MD [address] [place] [address] [place] [address] PCP - General Internal Medicine 01/05/23Wednesday, ELLIE Martinez [address] [place] [address] Licensed Practical Nurse Family Medicine 05/08/24 05/16/24 documented as of this encounter
--- OUTSIDE RECORDS SUMMARY | 2025-02-08 10:28 | XMS_ITS | Encounter Summary ---
Author Organization [facility] Address [address] [place] [address] Care Team Providers Care Insurance Underwriter Name Role Phone Javad Donato MD Unavailable [phone] Javad Donato MD Primary Care Provider Wednesday, Michelle ARGUETA Unavailable [phone] Encounter Details Date Type Department Care Team (Late st Contact Info) Description 05/17/2023 Abstract [facility] [place] [facility] 112 [facility] 110 [place] [address] Javad Donato MD 112 [facility] 110 [place], [place] [address] Social History Tobacco Use Types Packs/Day Years [...] How often do you attend chur or oriental orthodox services? 1 to 4 [...] Recorded Patient Health Questionnaire-2 Score 0 05/17/2023 [facility] of Occupat ional Health - Occupational [...] place to sleep or slept in a long-term (including now)? No 05/10/2023 Sex and Gender [...] AM EDT Office Visit [facility] [place] [facility] [address] [place] [address] [place] [address] Javad Donato MD [address] [place] [address] [place] [address] 04/30/2025 8:00 AM EST Office Visit [facility] [address] [place] [address] Jose Robins, WHOLESALE LOAN PROCESSOR [address] [address] documented as of this encounter Visit Diagnoses Not on filedocumented in this encounter Care Teams Insurance Underwriter Relationship Specialty Start Date End Date Javad Donato MD [address] [place] [address] [place] [address] PCP - ACO Reach 11/19/22 Javad Donato MD [address] [place] [address] [place] [address] PCP - General Internal Medicine 01/05/23WednesdayMichelle LPN [address] [place] [address] Licensed Practical Nurse Family Medicine 05/08/24 05/16/24 documented as of this encounter
--- OUTSIDE RECORDS SUMMARY | 2025-02-08 10:28 | XMS_ITS | Encounter Summary ---
Author Organization [facility] Address [address] [place] [address] Care Team Providers Care Wound Specialist Name Role Phone Javad Donato MD Unavailable [phone] Javad Donato MD Primary Care Provider [phone] Wednesday, Michelle ARGUETA Unavailable [phone] Encounter Details Date Type Department Care Team (Late st Contact Info) Description 06/29/2023 Orders Only [facility] [place] [facility] [address] [place] [address] A, Unknown Practice [address] [place] [address] Social History Tobacco Use Types [...] How often do you attend chur or gnosticist services? 1 to 4 times [...] Recorded Patient Health Questionnaire-2 Score 0 05/17/2023 [facility] of Occupat ional Health - Occupational [...] place to sleep or slept in a penitentiary (including now)? No 05/10/2023 Sex and Gender [...] 9:00 AM EDT [facility] [place] [facility] [address] [facility] [address] [place] [address] Javad Donato MD [address] [place] [address] [place] [address] 04/30/2025 8:00 AM EST Office Visit [facility]hele [facility] [address] Jose Robins, BATTER MIXER HELPER [address] [place] [address] documented as of this encounter Procedures Procedure [...] on filedocumented in this encounter Care Teams Wound Specialist Relationship Specialty Start Date End Date Javad Donato MD [address] [place] [address] [place] [address] PCP - ACO Reach 11/19/22 Javad Donato MD [address] [place] [address] [place] [address] PCP - General Internal Medicine 01/05/23Wednesday, ELLIE Martinez [address] [place] [address] Licensed Practical Nurse Family Medicine 05/08/24 05/16/24 documented as of this encounter
--- OUTSIDE RECORDS SUMMARY | 2025-02-08 10:28 | XMS_ITS | Clinical Summary ---
Author Organization [email or web address] tem Address [id number] [address] [place] [address] Care Team Providers Care Circuit Court Clerk Name Role Phone Javad Donato MD Primary Care Provider [phone] Allergies Active Allergy Reactions Criticality Noted Date [...] = 0.6 oz pur e alcohol) rare [facility] Utilities Answer Date Recorded In the past 12 months has th e aka-aki networks, gas, oil, or water [employer] threatened to shut off services in your [...] home today. Medical Devices Implanted Type Area Therapist Radiation Device Identifier Shelf Expiration Date Model / Serial / Lot Shell Actb 56mm Hip 4 Hl Clr Cd [place] G7 F Hmsphr - Sna - [id number] Implanted:Qt y: 1 on 07/07/2023 by Amauri Blair DO at [facility] Orthopedic Implant Right: Hip [employer] 04/03/2033 [id number] / NA / [id number] Liner Actb 36mm F Vivacit-E Lum G7 Hip Strl Lf - [id number] Implanted:Qt y: 1 on 07/07/2023 by Amauri Blair DO at [facility] Orthopedic Implant Right: Hip [employer] 05/01/2028 [id number] / / [id number] Stem Fem 129d 4 12/14 45.5mm Fitmore Protasul-64 Hip Rgh - [id number] Implanted:Qt y: 1 on 07/07/2023 by Amauri Blair DO at [facility] Orthopedic Implant Right: Hip [employer] 10/29/2032 [id number] / / [id number] Shell Actb 56mm Hip 4 Hl Clr Cd [place] G7 F Hmsphr - Sna - [id number] Implanted:Qt y: 1 on 05/03/2024 by Amauri Blair DO at [facility] Orthopedic Implant Left: Hip [employer] 12/11/2033 [id number] / NA / [id number] Liner Actb 36mm F Vivacit-E Lum G7 Hip Strl Lf - Sna - [id number] Implanted:Qt y: 1 on 05/03/2024 by Amauri Blair DO at [facility] Orthopedic Implant Left: Hip [employer] 02/20/2029 [id number] / NA / [id number] Stem Fem 129d 4 1214 45.5mm Fitmore Protasul-64 Hip Rgh - Sna - [id number] Implanted:Qt y: 1 on 05/03/2024 by Amauri Blair DO at [facility] Orthopedic Implant Left: Hip [employer] 01/25/2029 [id number] / NA / [id number] Head Fem 36mm +7mm 06/10 Xl Blx D Hip Actb - Sna - [id number] Implanted:Qt y: 1 on 05/03/2024 by Amauri Blair DO at [facility] Orthopedic Implant Left: Hip [employer] 04/25/2031 [id number] / NA / [id number] [employer] Femoral Head 36mm Implanted:Qt y: 1 on 07/07/2023 by Amauri Blair DO at [facility] Other Implant Right: Hip [employer] 10/21/2031 [id number] / / [id number] Screw Bn 30mm 6.5mm St Actb Seven Trlg Strl Rpl [id number] 165+[id number] - [id number] Implanted:Qt y: 1 on 07/07/2023 by Amauri Blair DO at [facility] Screw Right: Hip [employer] 01/21/2033 [id number] / / [id number] Screw Bn 30mm 6.5mm St Actb Seven Trlg Strl Rpl [id number]+324 165+[id number] - [id number] Implanted:Qt y: 1 on 07/07/2023 by Amauri Blair DO at [facility] Screw Right: Hip [employer] 02/08/2033 [id number] / / [id number] Screw Bn 30mm 6.5mm St Actb Seven Trlg Strl Rpl [id number]+324 165+[id number] - [id number] Implanted:Qt y: 1 on 07/07/2023 by Amauri Blair DO at [facility] Screw Right: Hip [employer] 02/08/2033 [id number] / / [id number] Screw Bn 30mm 6.5mm St Actb Seven Trlg Strl Rpl [id number]+324 165+[id number] - Sna - [id number] Implanted:Qt y: 1 on 05/03/2024 by Amauri Blair DO at [facility] Screw Left: Hip [employer] 11/09/203358-2017-596-3 0 / NA / [id number] Screw Bn 30mm 6.5mm St Actb Seven Trlg Strl [facility] [id number]+324 165+[id number] - Sna - [id number] Implanted:Qt y: 1 on 05/03/2024 by Amauri Blair DO at [facility] Screw Left: Hip [employer] 11/29/203388-5121-987-3 0 / NA / [id number] Insurance [address] [place] [address] MEDICARE MEDICAL VALDERS Advance Directives * Full Code (Latest Code Status on File) Date Activated Date Inactivated Comments 05/03/2024 7:48 AM 05/03/2024 6:58 PM * Full Code Date Activated Date Inactivated Comments 07/06/2023 5:59 PM 07/07/2023 4:[address] Teams [address] Clerk Relationship Specialty Start Date End Date Javad Donato MD [address] [id number] PCP - General Internal Medicine 06/15/17
--- OUTSIDE RECORDS SUMMARY | 2025-02-08 10:28 | XMS_ITS | Encounter Summary ---
Author Organization [facility] Address [address] [place] [address] Care Team Providers Care Gift Basket Packer Name Role Phone Javad Donato MD Unavailable [phone] Javad Donato MD Primary Care Provider Wednesday, Michelle ARGUETA Unavailable [phone] Encounter Details Date Type Department Care Team (Late st Contact Info) Description 07/05/2023 Abstract [facility] 112 [facility] 110 [place] [address] Javad Donato MD 112 [facility] 110 [place], [place] [id number] Social History Tobacco Use Types Packs/Day Years [...] How often do you attend chur or hinduism services? 1 to 4 times per year 05/10/2023 Do you belong to any clubs o r organizations such as faith groups, unions, fraternal or athletic groups, or [...] Recorded Patient Health Questionnaire-2 Score 0 05/17/2023 [facility] - Occupational [...] 9:00 AM EDT Office Visit [facility] [address] [place] [address] [place] [phone] Javad Donato MD [address] [place] [address] [place] [address] 04/30/2025 8:00 AM EST Office Visit [facility] [address] [place] [address] Jose Robins, IT DIRECTOR [address] [place] [address] documented as of this encounter Visit Diagnoses Not on filedocumented in this encounter Care Teams Gift Basket Packer Relationship Specialty Start Date End Date Javad Donato MD [address] [place] [address] [place] [address] PCP - ACO Reach 11/19/22 Javad Donato MD [address] [place] [address] [place] [address] PCP - General Internal Medicine 01/05/23Wednesday, ELLIE Martinez [address] [place] [address] Licensed Practical Nurse Family Medicine 05/08/24 05/16/24 documented as of this encounter
--- OUTSIDE RECORDS SUMMARY | 2025-02-08 10:28 | XMS_ITS | Encounter Summary ---
Author Organization [facility] Address [address] [place] [address] Care Team Providers Care Hl7 Developer Name Role Phone Javad Donato MD Unavailable [phone] Javad Donato MD Primary Care Provider Wednesday, Michelle ARGUETA Unavailable [phone] Encounter Details Date Type Department Care Team (Late st Contact Info) Description 04/05/2024 Abstract [facility] [address] [facility] 110 [place] [address] Javad Donato MD 112 [facility] 110 [place], [place] [phone] Social History Tobacco Use Types Packs/Day Years [...] How often do you attend chur or rastafarian services? 1 to 4 times per year 05/10/2023 Do you belong to any clubs o r organizations such as sikhism groups, unions, fraternal or athletic groups, or [...] Recorded Patient Health Questionnaire-2 Score 0 05/17/2023 [facility] - Occupational [...] 9:00 AM EDT [facility] [address] [facility] [address] [place] [phone] Javad Donato MD [address] [facility] [address] [place] [address] 04/30/2025 8:00 AM EST Office Visit [facility] [address] [place] [phone] Jose Robins, POLICE COMMISSIONER [address] [place], [place] [phone] documented as of this encounter Visit Diagnoses Not on filedocumented in this encounter Care Teams Hl7 Developer Relationship Specialty Start Date End Date Javad Donato MD [address] [place] [address] [place] [address] PCP - ACO Reach 11/19/22 Javad Donato MD [address] [place] [address] [place] [address] PCP - General Internal Medicine 01/05/23Wednesday, ELLIE Martinez [address] [place] [address] Licensed Practical Nurse Family Medicine 05/08/24 05/16/24 documented as of this encounter
--- OUTSIDE RECORDS SUMMARY | 2025-02-08 10:28 | XMS_ITS | Encounter Summary ---
Author Organization [facility] Address [address] [place] [address] Care Team Providers Care Virtual Classroom Manager Name Role Phone Javad Donato MD Unavailable [phone] Javad Donato MD Primary Care Provider Wednesday, Michelle ARGUETA Unavailable [phone] Encounter Details Date Type Department Care Team (Late st Contact Info) Description 06/14/2023 Orders Only [facility] [address] [place] [address] [place] [address] A, Unknown Practice [address] [place] [address] Social History Tobacco Use Types [...] How often do you attend chur or lutheran services? 1 to 4 times per year [...] Recorded Patient Health Questionnaire-2 Score 0 05/17/2023 [facility] ional [facility] [...] 9:00 AM EDT [facility] Visit [facility] [address] [facility] [address] [place] [phone] Javad Donato MD [address] [place] [address] [place] [address] 04/30/2025 8:00 AM EST Office [facility] [place] [address] Jose Robins, SALES AMBASSADOR [address] [place] [address] documented as of this encounter Procedures Procedure Name Priority Date/Time Associated Diagnosis Comments SCANNED LABS Routine 06/08/2023 9:05 AM EST documented in this encounter Results * SCANNED LABS (06/08/2023 9:05 AM EST) us Unknown Practice A LAB CHG PERFORMABLES Final Re sult documented in this encounter Visit Diagnoses Not on filedocumented in this encounter Care Teams Virtual Classroom Manager Relationship Specialty Start Date End Date Javad Donato MD [address] [place] [address] [place] [address] PCP - ACO Reach 11/19/22 Javad Donato MD [address] [place] [address] [place] [address] PCP - General Internal Medicine 01/05/23Wednesday, ELLIE Martinez [address] [place] [address] Licensed Practical Nurse Family Medicine 05/08/24 05/16/24 documented as of this encounter
--- OUTSIDE RECORDS SUMMARY | 2025-02-08 10:33 | XMS_ITS | CCD ---
Author Organization [facility] CliniSyne Care Team Providers Care Radius Corner Machine Operator Name Role Phone JAVAD DONATO Primary [...] ., NARERIC Admitting Peyton vailable LAKSHMIPATHY ., JUN Consulting [...] ., NARENDDERIANATH Attending Peyton vailable LAKSHMIPATHY ., NARSALLYATH Admitting [...] Fletcher Admitting Unavailable HAWTHORNE ., DR ANTIONE Flecther Consulting Unavailable MARIBEL, DR MANN Primary Care [...] Provider CHARISSA BLAIR Referring Unavailable JAVAD DONATO B Primary Care Unavailable CHARISSA BLAIR Admitting Unavailable CHARISSA BLIAR Attending Unavailable JAVAD DONATO Primary Care Unavailable [...] Primary Care Unavailable CHARISSA BLAIR Admitting Unavailable ROSSY, CHARISSA Rose Attending Unavailable JAVAD DONATO Primary Care Unavailable Wednesday NEON LIGHT INSTALLER, Michelle Unavailable Wednesday NEON LIGHT INSTALLER, Michelle Unavailable Javad Donato MD Primary Care Provider JEANNA MENDIOLA Attending Unavailable HERNÁNDEZ, JOSE Barkley Referring Unavailable HEMMERALMA Attending Unavailable HERNÁNDEZ, JOSE Barkley Attending Unavailable JAVAD DONATO Attending Unavailable HERNÁNDEZ, JOSE Barkley Attending Unavailable HERNÁNDEZ, JOSE Barkley Referring Unavailable HEMMER, ALMA Gaona Attending Unavailable HERNÁNDEZ, JOSE Barkley Attending Unavailable HERNÁNDEZ, JOSE T Referring Unavailable ROSSY, CHARISSA Rose Attending Unavailable HEMMER, ALMA Gaona Attending Unavailable ROSSY, CHARISSA Rose Attending Unavailable HEMMER, ALMA Gaona Attending Unavailable HERNÁNDEZ, [...] Unavailable Justine BAER, Lidia Koch Attending Unavailable aMc SANTIAGO Attending Unavailable Mac SANTIAGO Attending Unavailable Mac SANTIAGO Attending Unavailable Allergies Allergy Classification Reported Allergen(s) Allergy Type Date of Onset Reaction(s) Facility (20 sources) carvedilol; Translations: [CARVEDILOL] [facility] Medications Current Medications Medication Drug Class(es) Dates Sig (Normalized) Sig (Original) acetaminophen 500 mg oral tablet (5 sources) Start: 02-07-2024 End: 04-04-2024 take 1 tablet by mouth every six hours Tylenol Extra Strength 500 mg oral tablet See Instructions, tab(s) mg Oral q6hr, Refills(s) 0 Start Date: 02/07/24 Status: Ordered Repeat number: 1 acetaminophen 325 mg / HYDROcodone bitartrate 5 mg oral tablet (20 sources) Opioid Agonist Start: 02-07-2024 End: 10-25-2024 take 1 tablet by mouth every six hours for pain HYDROcodone-aceta minophen ([place]) 5-325 MG tablet Indications: Herniated lumbar disc without myelopathy Take 1 tablet by mouth every 6 (six) hours if needed for severe pain 40 tablet 10/25/2024 Active End: 04-12-2024 HYDROcodone-acetaminophen (N orco) 5-325 MG tablet 04/12/2024 Discontinued (Reorder) HYDROcodone-acet aminophen (NORCO) 5-325 mg per tablet amoxicillin 500 mg oral tablet (20 sources) Penicillin-class Antibacterial Start: 11-29-2024 take 4 tablets by mouth once at mealtime amoxicillin (Amoxil) 500 MG tablet Indications: Status post right hip replacement 4 tabs PO once 30-60 mins before procedure with food 4 tablet 3 11/29/2024 Active Start: 11-29-2024 take 4 tablets by mo ut once at mealtime amoxicillin (Amoxil) 500 MG tablet Indications: Status post right hip replacement 4 tabs PO once 30-60 mins before procedure with food 4 tablet 3 11/29/2024 Active Start: 07-27-2024 End: 08-03-2024 take 1 tablet [...] Date: 02/16/22 Status: Ordered Repeat number: 1 Start: 02-16-2022 Vitamin C Alexis y, Refills(s) 0 Start Date: 02/16/22 Status: Ordered ascorbic acid (V itamin C) 500 MG chewable tablet 1 (one) time each day at the same time. Active take 1 tablet by yvon th in the morning ascorbic acid (VITAMIN C) 500 mg tablet [...] mg/ml / clotrimazole 10 mg/ml topical cream (6 sources) Azole Antifungal, Corticosteroid Start: 11-29-2024 clotrimazole-betamethasone (Lotrisone) cream Indications: Tinea pedis of both feet Apply 1 application topically in the morning and 1 application before bedtime. 30 g 2 11/29/2024 Active Start: 11-29-2024 clotrimazole-b etamethasone (Lotrisone) cream Indications: Tinea pedis of both feet Apply 1 application topically in the morning and 1 application before bedtime. 30 g 2 11/29/2024 Active Start: 06-14-2020 Lotrisone 0.05 %-1% Cream Topical, BID, Refill(s) 0 Start Date: 06/14/20 Status: Ordered End: 11-29-2024 clotrimazole-betamethasone ( Lotrisone) cream Apply 1 application topically in the morning and 1 application before bedtime. 11/29/2024 Discontinued (Reorder) cephalexin 500 mg oral capsule (2 sources) [...] Date: 02/07/24 Status: Ordered Repeat number: 1 Start: 02-07-2024 cholecalcifero l 1,250 mcg, Daily, Refills(s) 0 Start Date: 02/07/24 Status: Ordered cholecalciferol (Vitamin D3) 25 MCG (1000 UT) tablet 1 (one) time each day at the same time. Active take 1 tablet by yvon th in the morning cholecalciferol 1,000 units tablet Take 1 tablet [...] tablet (20 sources) 5-alpha Reductase Inhibitor Start: 02-05-2025 take 1 tablet by mouth once daily finasteride 5 mg Tab 5 mg = 1 tab(s), Oral, Daily, # 90 tab(s), Refills(s) 3, Pharmacy: [facility] [id number], 186, cm, 02/05/25 10:36:00 EDT, Height/Length Dosing, 130.4, kg, 02/05/25 10:36:00 EDT, Weight Dosing Start Date: 02/05/25 Status: Ordered Quantity: 90.0 Unit: tab(s) Repeat number: 4 Start: 06-24-2021 take 1 tablet by yvon [...] tablet by mouth once in the morning irbesartan-hydroCHLOROthiazide (AVALIDE) 150-12.5 mg per tablet Take 1 tablet by mouth in the morning. 02/08/2023 Active Start: 08-14-2023 take 1 tablet by yvon th in the morning irbesartan-hydroCHLOROthiazide (Avalide) 150-12.5 MG tablet Indications: Benign essential hypertension (CMS/HCC) Take 1 tablet by mouth in the morning. 100 tablet 2 02/08/2023 Active Start: 02-08-2023 take 1 tablet by yvon th once daily irbesartan-hydroCHLOROthiazide (Avalide) 150-12.5 MG tablet Indications: Benign essential hypertension (CMS/HCC) Take 1 tablet by mouth Daily 100 tablet 3 06/23/2024 Active take 1 tablet by yvon th [...] 30 mg before bedtime. Active Magnesium glycinate (2 sources) Start: 02-07-2024 take 1 tablet by mouth every twenty-four hours magnesium glycinate 200 mg oral tablet 200 mg = 1 tab(s), Oral, q24hr, Refills(s) 0 Start Date: 02/07/24 Status: Ordered Repeat number: 1 Start: 02-07-2024 take 1 tablet by yvon th every twenty-four hours magnesium glycinate 200 mg oral tablet 200 mg = 1 tab(s), Oral, q24hr, Refills(s) 0 Start Date: 02/07/24 Status: Ordered meloxicam 15 mg oral tablet (20 sources) Nonsteroidal Anti-inflammatory Drug Start: 06-11-2024 take 1 tablet by mouth once daily [...] 0 Active predniSONE 10 mg oral tablet (6 sources) Start: 11-29-2024 End: 12-08-2024 take 1 tablet by mouth three times daily, then take 1 tablet by mouth twice daily, then take 1 tablet by mouth once daily predniSONE (Deltasone) 10 MG tablet Indications: Skin irritation Take 1 tablet (10 mg) by mouth 3 (three) times a day for 3 days, THEN 1 tablet (10 mg) 2 (two) times a day for 3 days, THEN 1 tablet (10 mg) Daily for 3 days. 18 tablet 11/29/2024 12/08/2024 Active Start: 02-17-2024 End: 02-25-2024 take 1 tablet [...] (3 sources) take 1 capsule by mo uth in the morning selenium 200 mcg capsule [...] Date: 02/07/24 Status: Ordered Repeat number: 1 solifenacin succinate 10 mg oral tablet (20 sources) Cholinergic Muscarinic Antagonist Start: 02-05-2025 take 1 tablet by mouth once daily Vesicare 10 mg Tab 10 mg = 1 tab(s), Oral, Daily, # 90 tab(s), Refills(s) 3, Pharmacy: [facility] [id number], 186, cm, 02/05/25 10:36:00 EDT, Height/Length Dosing, 130.4, kg, 02/05/25 10:36:00 EDT, Weight Dosing Start Date: 02/05/25 Status: Ordered Quantity: 90.0 Unit: tab(s) Repeat number: 4 Start: 11-25-2021 take 1 tablet by yvon th in the morning solifenacin (VESICARE) 10 mg tablet Take 1 tablet (10 mg total) by mouth in the morning. 09/30/2022 Active Comment on above: 1 (one) time each da y at the same time. tamsulosin hydrochloride 0.4 mg oral capsule (20 sources) alpha-Adrenergic Becca Start: 02-05-2025 take 1 capsule by mouth twice daily tamsulosin 0.4 mg Cap 0.4 mg = 1 cap(s), Oral, BID, # 180 cap(s), Refills(s) 3, Pharmacy: [facility] [id number], 186, cm, 02/05/25 10:36:00 EDT, Height/Length Dosing, 130.4, kg, 02/05/25 10:36:00 EDT, Weight Dosing Start Date: 02/05/25 Status: Ordered Quantity: 180.0 Unit: cap(s) Repeat number: 4 Start: 08-21-2022 take 1 capsule by mo ut every twenty-four hours in the morning tamsulosin (Flomax) 0.4 MG 24 hr capsule Take 0.4 mg by mouth in the morning and 0.4 mg before bedtime. 08/21/2022 Active Start: 06-30-2021 take 1 capsule by mo uth twice daily tamsulosin 0.4 mg Cap 0.4 mg = 1 cap(s), Oral, BID, # 60 cap(s), Refills(s) 11, Pharmacy: [facility] [id number], 186, cm, 02/08/23 11:10:00 EDT, Height/Length Dosing, 129, kg, 02/08/23 11:10:00 EDT, Weight Dosing Start Date: 09/29/23 Status: Ordered Comment on above: Take 0.4 mg by mouth . tiZANidine 4 mg oral tablet (20 sources) Central alpha-2 Adrenergic Agonist Start: 11-09-2024 take 1 tablet by mouth once daily tiZANidine (Zanaflex) 4 MG tablet Indications: Herniated lumbar disc without myelopathy Take 1 tablet (4 mg) by mouth Daily 30 tablet 2 11/09/2024 Active Start: 05-24-2024 take 1 tablet by yvon th once [...] Date: 02/07/24 Status: Ordered Repeat number: 1 Start: 01-21-2024 take 1 tablet by yvon [...] morning. 0 Vitamin B Complex oral capsule (2 sources) Start: 02-07-2024 take 1 capsule by mouth once daily Vitamin B Complex oral capsule 1 cap(s), Oral, Daily, Refill(s) 0 Start Date: 02/07/24 Status: Ordered Repeat number: 1 Start: 02-07-2024 take 1 capsule by mo [facility] once daily Vitamin B Complex oral capsule 1 cap(s), Oral, Daily, Refill(s) 0 Start Date: 02/07/24 Status: Ordered vitamin B12 (20 sources) Vitamin B12 Start: 02-16-2022 Vitamin B12 Re fills(s) 0 Start Date: 02/16/22 Status: Ordered cyanocobalamin ( Vitamin B-12) 100 MCG tablet as directed Orally Active Zinc (4 sources) Start: 02-16-2022 take 1 mg by mouth o nce daily Zinc mg, Oral, Daily, Refills(s) 0 Start Date: 02/16/22 Status: Ordered Repeat number: 1 Start: 08-22-2022 take 1 mg by mouth once daily Zinc mg, Oral, Daily, Refills(s) 0 Start Date: 02/16/22 Status: Ordered zinc gluconate 50 mg oral ta blet (20 sources) zinc gluconate 5 0 MG [...] activity, # 30 tab(s), Refills(s) 3, Pharmacy: [id number], 186, cm, 06/17/20 14:49:00 EST, Height/Length Dosing, 122, kg, 06/17/20 14:49:00 EST, Weight Dosing Start Date: 06/17/20 Status: Ordered tranexamic acid 650 mg oral tablet (2 sources) Antifibrinolytic Agent Start: 07-07-2023 End: 07-07-2023 tranexamic acid (LYSTEDA) tablet 1,950 mg Problems Active Problems Problem Classification Problem Date Documented Date Episodic/Chronic Abdominal hernia (20 sources) Umbilical hernia; Translations: [Umbilical hernia without obstruction or gangrene] Onset: 01-11-2023 01-11-2023 Episodic Administrative/social admission (4 sources) Patient encounter status; Translations: [Other specified counseling] 06-14-2024 Episodic Disorders of lipid metabolism (4 sources) Hyperlipidemia 06-17-2020 Chronic Esophageal disorders (20 sources) Gastroesophageal reflux disease without esophagitis; Translations: [Gastro-esophageal reflux disease without esophagitis] Onset: 01-11-2023 01-11-2023 Chronic Essential hypertension (20 sources) Hypertensive disorder; Translations: [Essential (primary) hypertension] Onset: 08-13-2022 Resolved: 01-21-2024 06-17-2020 Chronic Genitourinary symptoms and ill-defined conditions (10 sources) Urge incontinence; Translations: [Post-micturition incontinence ] Onset: 02-16-2022 Chronic Genitourinary symptoms and ill-defined conditions (8 sources) Increased frequency of urination; Translations: [Nocturia] 06-17-2020 Episodic Gout and other crystal arthropathies (4 sources) Gout 06-17-2020 Chronic Headache; including migraine (4 sources) Headache 06-17-2020 Episodic Hyperplasia of prostate (20 sources) Benign prostatic hypertrophy with outflow obstruction; Translations: [Benign prostatic hyperplasia with lower urinary tract symptoms] Onset: 02-16-2022 Chronic Immunizations and screening for infectious disease (2 sources) Needs influenza immunization; Translations: [Encounter for immunization] 06-14-2024 Episodic Mycoses (2 sources) Tinea pedis; Translations: [Tinea pedis] 11-29-2024 Episodic Open wounds of extremities (2 sources) Open wound of left lower leg; Translations: [Unspecified open wound, left lower leg, initial encounter] 11-29-2024 Episodic Osteoarthritis (20 sources) Arthritis; Translations: [Bilateral primary osteoarthritis of hip] Onset: 11-16-2022 06-17-2020 Chronic Other connective tissue disease (20 sources) History of total hip arthroplasty; Translations: [Presence of right artificial hip joint] Onset: 07-29-2023 07-29-2023 Chronic Other connective tissue disease (5 sources) History of repair of hip joint; Translations: [Presence of right artificial hip joint] 08-05-2023 Chronic Other connective tissue disease (6 sources) Pain in right leg; Translations: [PAIN IN RIGHT LEG] Onset: 10-08-2022 Episodic Other diseases of bladder and urethra (2 sources) Detrusor overactivity; Translations: [Overactive bladder] Onset: 02-07-2024 Chronic Other diseases of bladder and urethra (2 sources) Overactive bladder 02-07-2024 Chronic Other injuries and conditions due to external causes (4 sources) Injury of head 06-17-2020 Episodic Other male genital disorders (8 sources) Male erectile dysfunction, unspecified; Translations: [Erectile [...] mass index (BMI) 38.0-38.9, adult] Onset: 01-21-2024 Resolved: 11-29-2024 02-16-2022 Chronic Other nutritional; endocrine; and metabolic [...] due to excess calories] 10-25-2024 Chronic Other skin disorders (2 sources) Skin irritation ; Translations: [Other skin changes] 11-29-2024 Episodic Other upper respiratory disease (20 sources) Allergic [...] Classification Problem Date Documented Da te Episodic/Chronic Coma; stupor; and brain damage (20 sources) [...] UNSPECIFIED; Translations: [LOW BACK PAIN, UNSPECIFIED] Onset: 01-26-2023 Results Test Name Value Interpretation Reference Range Facility Urology Office/Clinic Noteon 02-05-2025 Urology Office/Clinic Note Urology Office/Clinic Note Chief Complaint 1 year follow up HPI Staff Pt is a 70 year old male here for a 1 year follow up Dx: UUI, BPH with obstruction, ED. *Vesicare 10mg qd, Tamsulosin 0.4mg bid, Finasteride 5mg qd, and Sildenafil 100mg prn. refills sent to [facility] PCP checks PSA. Most recent PSA 06/30/23 - 0.38 Pt complains of dry ejaculation Pt denies pain/burning denies visible blood denies flank pain IPSS: 11 History of Present Illness Tests reviewed: reviewed [...] HPI. Physical Exam Vitals & Measurements HR: 70(Peripheral) RR: 16 BP: 128/78 HT: 186 cm HT: 73 in WT: 130.4 kg WT: 287.482 lb BMI: 37.69 General Appearance: alert, no distress, well nourished, well developed male. Assessment/Plan 1. BPH with urinary obstruction (N40.1: Benign prostatic hyperplasia with lower urinary tract symptoms) PSA (checked by PCP): 05/03/19 - 0.93 05/21/20 - 1.12 05/16/22 - 0.47 (0.94 finasteride) 06/30/23 - 0.38 (0.76 finasteride) Cysto 11/26/20 - Obstructed, bilobar [1]. Trabeculated: high grade [1] UA neg. IPSS 11. Taking Tamsulosin 0.4 mg bid and Finasteride 5 mg qd. Reports retrograde ejaculation. Assured pt this is not of concern and is a possible SE of Tamsulosin. good stream. Feels he empties. -Cont Tamsulosin and Finasteride wo changes. Refills sent to [facility]. -Cont monitoring PSA w/ PCP. Shares he typically has appts in Feb/Mar. -F/u in 1 yr 2. OAB (overactive bladder) (N32.81: Overactive bladder) Taking Vesicare 10 mg qd. Nocturia varies based on fluid intake. Satisfied with sx control with medication. -Cont Vesicare wo changes. Refills sent. 3. ED (erectile dysfunction) (N52.9: Male erectile dysfunction, unspecified) Sildenafil 100 mg prn. [2] No voicing any concerns. Follow-up With When Contact Information PAMELA BAER, Mac Stephenson, URL [address] [place] [address] [place] [address] Additional Instructions: 1 yr (PCP checks PSA) Patient Education Overactive Bladder, Adult I, Kaleigh Donato, personally scribed for Dr. Santiago on 02/05/2025 11:52:14. . Documentation recorded by the scribe, Kaleigh Donato, accurately reflects the services(s) I performed and decisions made by me. Authenticated by Dr. Santiago on 02/05/2025 11:58:25. Problem List/Past Medical History Ongoing Arthritis BMI [...] tablet, 200 mg= 1 tab(s), Oral, q24hr [place] 325 mg-5 mg oral tablet, 1 tab(s), [...] refills Vitamin B Complex oral capsule, 1 cap(s), Oral, Daily Vitamin C, Daily Zinc, Oral, Daily Allergies No Known Allergies Social History Alcohol Past. Beer, Wine, Liquor. 1-2 times per month., 02/05/2025 Substance Abuse Past. Marijuana. 1-2 times per week. Previous treatment: None., 02/05/2025 Tobacco Former smoker, quit more than 30 days ago Tobacco Use:. Never Smokeless Tobacco Use:., 02/05/2025 Family History Alcoholism: Mother. Arthritis: Grandparent. Asthma: Child. Congenital heart disease: Grandparent. Hyperlipidemia: Grandparent. Hypertension: Grandparent and Grandparent. Stroke: Grandparent. Immunizations Vaccine Date Status Comments influenza virus vaccine, inactivated 06/14/2024 Recorded diphtheria/pertussis, acel/tetanus adult 05/18/2023 Recorded (more content not included)... Normal [facility] Comment on above: Result Comment: Elec tronically Signed By: Mac SANTIAGO MD\.br\Date and Time Signed: 02/05/25 11:58 EDT\.br\Electronically Co-Signed By: Kaleigh Donato\.br\Date and Time Co-Signed: 02/05/25 11:52 EDT XR Hip - left 3 [facility] Result: 10/30/2024: : AP and lateral [...] Unremarkable left total hip arthroplasty. Jose Hernández CRIMINAL DEFENSE ATTORNEY-LEATHER SCRAPER [facility]rist[facility] Radiology Study observation (narrative) [facility] - Hematology and Cell countson 10-25-2024 HbA1c (Bld) [Mass fraction] 5.8 % [facility] [employer] No Panel Informationon 10-25 [facility] e MR LUMBAR SPINE WO CONTRASTo n [...] BY: Clark Landeros, DO Normal Not Available [facility] US LOWER EXTREMITY MEGHNA RIAL DUPLEX BILATERALon 06-22-2024 [facility] US LOWER EXTREMITY ARTERIAL DUPLEX BILATERAL EXAM: [...] Location: Velocity/Waveform Location: Velocity/Waveform THIGH: THIGH: R MATERIAL FLOW ANALYST: 165 T L MATERIAL FLOW ANALYST: 119 T R SFA PROX: 101 T L SFA PROX: 121 T R SFA MID: 96 T L SFA MID 103 T R SFA DIST: 104 T L SFA DIST: 81 T R POP A: 54 T L POP A: 65 T CALF: CALF: R KAMERON: 111 T L KAMERON: 80 T R GRANTS DIRECTOR PROX: 105 T L GRANTS DIRECTOR PROX: 123 T R GRANTS DIRECTOR MID: 139 T L GRANTS DIRECTOR MID: 125 T R GRANTS DIRECTOR DIST: 129 T L GRANTS DIRECTOR DIST: 151 T R SALINAS: 105 B L SALINAS: 76 T IMPRESSION: No significant findings. Mild plaque in the right common femoral artery with less than 50% stenosis. *This report is generated using voice recognition reporting (Neighborhoods). On occasion [employer] erroneously drops words from the report or [...] Comment on above: Performed By: #### 1 [id number], [id number] #### [facility] [address] [place] [address] Business Unit Manager: Katarzyna Khan #### [id number], [id number], 496 #### [facility] [address], [address] [place] [address] Business Unit Manager: Casey hCi MD Hematocrit (Bld) [Volume fraction] 37.3 % Low 38.5-50.0 [facility] Comment on above: Performed By: #### 1 [id number], [id number] #### [facility] [address] [place] [address] Business Unit Manager: Katarzyna Khan #### [phone], 4920, 496 #### [facility] [address], [address] [place] [address] Business Unit Manager: Casey Chi MD Hemoglobin (Bld) [Mass/Vol] 12.0 g/dL Low 13.2-17.1 [facility] Comment on above: Performed By: #### 1 979, [id number] #### [facility] [address] [place] [address] Business Unit Manager: Katarzyna Khan #### [phone], 3620, 496 #### [facility] [address], [address] [place] [address] Business Unit Manager: Casey Chi MD MCH (RBC) [Entitic mass] 28.0 pg Normal 27.0-33.0 [facility] Comment on above: Performed By: #### 1 649, [id number] #### [facility] [address] Business Unit Manager: Katarzyna Khan #### [phone], 3590, 496 #### [facility] [address], [address] [place] [address] Business Unit Manager: Casey Chi MD MCHC (RBC) [Mass/Vol] 32.2 [...] clinical condition. Performed By: #### 1 759, [id number] #### [facility] [address] [place], [place] [id number] Business Unit Manager: Kaatrzyna Khan #### [phone], 9190, 496 #### [facility] [address], [address] [place] [address] Business Unit Manager: Casey Chi MD MCV (RBC) [Entitic vol] 86.9 fL Normal 80.0-100.0 [facility] Comment on above: Performed By: #### 1 649, [id number] #### [place] [address] Business Unit Manager: Katarzyna Khan #### 5363, 7600, 496 #### [facility] [address], [address] [place] [address] Business Unit Manager: Casey Chi MD Platelet mean volume (Bld) [Entitic vol] 9.1 fL Normal 7.5-12.5 [facility] Comment on above: Performed By: #### 1 759, [id number] #### [facility]-[address] [address] Business Unit Manager: Katarzyna Khan #### 5363, 7600, 496 #### [facility] [place] [address] Business Unit Manager: Casey Chi MD Platelets (Bld) [#/Vol] 242 10*3/uL Normal 140-400 [facility] Comment on above: Performed By: #### 1 759, [id number] #### [facility]-[address] [address] Business Unit Manager: Katarzyna Khan #### [phone], 7600, 496 #### [facility] [place] [address] Business Unit Manager: Casey Chi MD RBC (Bld) [#/Vol] 4.29 10*6/uL Normal 4.20-5.80 [facility] Comment on above: Performed By: #### 1 759, [id number] #### [facility] [address] [place] [address] Business Unit Manager: Katarzyna Khan #### [phone], 7600, 496 #### [facility] [place] [address] Business Unit Manager: Casey Chi MD WBC (Bld) [#/Vol] 7.7 10*3/uL Normal 3.8-10.8 [facility] Comment on above: Performed By: #### 1 759, [id number] #### [facility] [address] [place] [address] Business Unit Manager: Katarzyna Khan #### 5363, 7600, 496 #### [facility] [place] [address] Business Unit Manager: Casey Chi MD [facility] 06-15-2024 Albumin [Mass/Vol] 3.9 g/dL Normal 3.6-5.1 [facility] Comment on above: Performed By: #### 1 759, 66132 #### [facility] [address] Business Unit Manager: Katarzyna Khan #### 5363, 7600, 496 #### [facility] [place] [address] Business Unit Manager: Casey Chi MD Albumin/Globulin [Mass ratio] 1.5 {ratio} Normal 1.0-2.5 [facility] Comment on above: Performed By: #### 1 759, [id number] #### [facility] [address] Business Unit Manager: Katarzyna Khan #### [phone], 7600, 496 #### [facility] [place] [address] Business Unit Manager: Casey Chi MD ALP [Catalytic activity/Vol] 71 U/L Normal 35-144 [facility] Comment on above: Performed By: #### 1 759, 83421 #### [facility] [address] Business Unit Manager: Katarzyna Khan #### [phone], 7600, 496 #### [facility] [place] [address] Business Unit Manager: Casey Chi MD ALT [Catalytic activity/Vol] 18 U/L Normal 9-46 [facility] Comment on above: Performed By: #### 1 759, 44498 #### [facility] [address] [place] [address] [id number] Business Unit Manager: Katarzyna Khan #### 5363, 7600, 496 #### [facility] [address], [address] [place] [address] Business Unit Manager: Casey Chi MD AST [Catalytic activity/Vol] 18 U/L Normal 10-35 [facility] Comment on above: Performed By: #### 1 759, 85950 #### [facility] [address] [place] [phone] Business Unit Manager: Katarzyna Khna #### 5363, 7600, 496 #### [facility] [address], [address] [place] [address] Business Unit Manager: Casey Chi MD Bilirubin [Mass/Vol] 0.6 mg/dL Normal 0.2-1.2 [facility] Comment on above: Performed By: #### 1 759, 41571 #### [facility] [address] [place] [phone] Business Unit Manager: Katarzyna Khan #### 5363, 7600, 496 #### [facility] [address], [address] [place] [address] Business Unit Manager: Casey Chi MD BUN/CREATININE RATIO SEE NOTE: Normal 6-22 [facility] Comment on above: Result Comment: Not Reported: BUN and Creatinine are within reference range. Performed By: #### 1 759, 61456 #### [facility] [address] [place] [phone] Business Unit Manager: Katarzyna Khan #### 5363, 7600, 496 #### [facility] [address], [address] [place] [address] Business Unit Manager: Casey Chi MD Calcium [Mass/Vol] 9.2 mg/dL Normal 8.6-10.3 [facility] Comment on above: Performed By: #### 1 759, 06392 #### [facility] Business Unit Manager: Katarzyna Khan #### 5363, 7600, 496 #### [facility] [place] [address] Business Unit Manager: Casey Chi MD Chloride [Moles/Vol] 105 mmol/L Normal 98-110 [facility] Comment on above: Performed By: #### 1 759, 13608 #### [facility] [address] [place] [address] Business Unit Manager: Katarzyna Khan #### 5363, 7600, 496 #### [facility] [place] [address] Business Unit Manager: Casey Chi MD CO2 [Moles/Vol] 26 mmol/L Normal 20-32 [facility] Comment on above: Performed By: #### 1 759, 20418 #### [facility] [address] [place] [address] Business Unit Manager: Katarzyna Khan #### 5363, 7600, 496 #### [facility] [place] [address] Business Unit Manager: Casey Chi MD Creatinine [Mass/Vol] 0.82 mg/dL Normal 0.70-1.28 [facility] Comment on above: Performed By: #### 1 759, 63433 #### [facility] [address] [place] [address] Business Unit Manager: Katarzyna Khan #### 5363, 7600, 496 #### [facility] [address], [address] [place] [address] Business Unit Manager: Casey Chi MD GFR/1.73 sq M.predicted among non-blacks MDRD (S/P/Bld) [Vol rate/Area] 94 mL/min/{1.73_m2} Normal > OR = 60 [facility] Comment on above: Performed By: #### 1 759, 47247 #### [facility] [address] [place], [place] [phone] Business Unit Manager: Katarzyna Khan #### 5363, 7600, 496 #### [facility] [address], [address] [place] [address] Business Unit Manager: Casey Chi MD Globulin (S) [Mass/Vol] 2.6 g/dL Normal 1.9-3.7 [facility] Comment on above: Performed By: #### 1 759, 66575 #### [facility] [address] [place] [address] Business Unit Manager: Katarzyna Khan #### 5363, 7600, 496 #### [facility] [address], [address] [place] [address] Business Unit Manager: Casey Chi MD Glucose [Mass/Vol] 106 mg/dL High 65-99 [facility] Comment on above: Result Comment: Fasting reference interval For someone without known diabetes, a glucose value between 100 and 125 mg/dL is consistent with prediabetes and should be confirmed with a follow-up test. Performed By: #### 1 759, 54510 #### [facility] [address] [place] [address] Business Unit Manager: Katarzyna Khan #### 5363, 7600, 496 #### [facility] [address], [address] [place] [address] Business Unit Manager: Casey Chi MD Potassium [Moles/Vol] 4.1 mmol/L Normal 3.5-5.3 [facility] Comment on above: Performed By: #### 1 759, 43334 #### [facility] [address] [place] [address] Business Unit Manager: Katarzyna Khan #### 5363, 7600, 496 #### [facility] [address], [address] [place] [address] Business Unit Manager: Casey Chi MD Protein [Mass/Vol] 6.5 g/dL Normal 6.1-8.1 [facility] Comment on above: Performed By: #### 1 759, 19726 #### [facility] [address] [place] [phone] Business Unit Manager: Katarzyna Khan #### 5363, 7600, 496 #### [facility] [address], [address] [place] [address] Business Unit Manager: Casey Chi MD Sodium [Moles/Vol] 139 mmol/L Normal 135-146 [facility] Comment on above: Performed By: #### 1 759, 02464 #### [facility] [address] [place] [address] Business Unit Manager: Katarzyna Khan #### 5363, 7600, 496 #### [facility] [address], [address] [place] [address] Business Unit Manager: Casey Chi MD Urea nitrogen [Mass/Vol] 16 mg/dL Normal 7-25 [facility] Comment on above: Performed By: #### 1 759, 77557 #### [facility] Business Unit Manager: Katarzyna Khan #### 5363, 7600, 496 #### [facility] [address], [address] [place] [address] Business Unit Manager: Casey Chi MD HEMOGLOBIN A1con 06-15-2024 HEMOGLOBIN [...] diagnosis of diabetes in children. According to [place] Diabetes Association (ADA) guidelines, hemoglobin A1c <7.0% represents optimal control in non- diabetic patients. Different metrics may apply to specific patient populations. Standards of Medical Care in Diabetes(ADA). Performed By: #### 1 759, 80208 #### [facility] [address] [place] [address] Business Unit Manager: Katarzyna Khan #### 5363, 7600, 496 #### [facility] [address], [address] [place] [address] Business Unit Manager: Casey Chi MD LIPID PANEL, [place] [address] Cholesterol [Mass/Vol] 172 mg/dL Normal <200 [facility] Comment on above: Order Comment: FASTI NG:YES FASTING: YES Performed By: #### 1 759, 35442 #### [facility] [address] [place] [address] Business Unit Manager: Katarzyna Khan #### 5363, 7600, 496 #### [facility] [address], [address] [place] [address] Business Unit Manager: Casey Chi MD Cholesterol in HDL [Mass/Vol] 32 mg/dL Low > OR = 40 [facility] Comment on above: Order Comment: FASTI NG:YES FASTING: YES Performed By: #### 1 759, 15935 #### [facility] [address] [place] [address] Business Unit Manager: Katarzyna Khan #### 5363, 7600, 496 #### [facility] [address], [address] [place] [address] Business Unit Manager: Casey Chi MD Cholesterol in LDL [Mass/Vol] [...] LDL-C. Humberto MOORE et al. LULU. 2013;310(19): 7108-5766 (http://education.Hundo.Topera/faq/JFZ373) Performed By: #### 1 759, 20547 #### [facility] [address] [place], [place] [phone] Business Unit Manager: Katarzyna Khan #### 5363, 7600, 496 #### [facility] [address], [address] [place] [address] Business Unit Manager: Casey Chi MD Cholesterol.total/ Cholesterol in HDL [Mass ratio] 5.4 {ratio} High <5.0 [facility] Comment on above: Order Comment: FASTI NG:YES FASTING: YES Performed By: #### 1 759, 35820 #### [facility] [address] [place] [phone] Business Unit Manager: Katarzyna Khan #### 5363, 7600, 496 #### [facility] [address], [address] [place] [address] Business Unit Manager: Casey Chi MD NON HDL CHOLESTEROL 140 mg/dL (calc) High <130 [facility] Comment on above: Order Comment: FASTI NG:YES FASTING: YES Result Comment: For patients with diabetes plus 1 major ASCVD risk factor, treating to a non-HDL-C goal of <100 mg/dL (LDL-C of <70 mg/dL) is considered a therapeutic option. Performed By: #### 1 759, 00092 #### [facility] [address] [place], [place] [phone] Business Unit Manager: Katarzyna Khan #### 5363, 7600, 496 #### [facility] [address], [address] [place] [address] Business Unit Manager: Casey Chi MD Triglyceride [Mass/Vol] 299 mg/dL High <150 [facility] Comment on above: Order Comment: FASTI NG:YES FASTING: YES Result Comment: If a non-fasting specimen was collected, consider repeat triglyceride testing on a fasting specimen if clinically indicated. Hicks et al. J. of Clin. Lipidol. 2015;9:129-169. Performed By: #### 1 759, 20668 #### [facility] [address] [place] [phone] Business Unit Manager: Katarzyna Khan #### 5363, 7600, 496 #### [facility] [address], [address] [place] [address] Business Unit Manager: Casey Chi MD PSA, TOTALon 06-15-2024 PSA, TOTAL 0.43 ng/mL Normal < OR = 4.00 [employer] [facility] Comment on above: Result Comment: The total PSA value from this assay system is standardized against the WHO standard. The test result will be approximately 20% lower when compared to the equimolar-standardized total PSA (Dee Dee Randolph). Comparison of serial PSA results should be interpreted with this fact in mind. This test was performed using the Siemens chemiluminescent method. Values obtained from different assay methods cannot be used interchangeably. PSA levels, regardless of value, should not be interpreted as absolute evidence of the presence or absence of disease. Performed By: #### 1 759, 86542 #### [facility] [address] [place] [phone] Business Unit Manager: Katarzyna Khan #### 5363, 7600, 496 #### [facility] [address], [address] [place], [place] [phone] Business Unit Manager: Casey Chi MD XR Hip - left [...] Unremarkable left total hip arthroplasty. 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 Impression: Arthritis of the left hip Amauri Blair D.O. [facility] XR Hip - left 3 Viewson 03-28 Radiology Study observation (narrative) [facility] BASIC METABOLIC PANLon 04-04 Anion gap [Moles/Vol] 9 mmol/L Normal 5-15 [facility] Comment on above: Performed By: #### C BCA, BMP #### [facility] ([id number]) [address] [place] [address] Calcium [Mass/Vol] 9.8 mg/dL Normal 8.5-10.5 [facility] Comment on above: Performed By: #### C BCA, BMP #### [facility] ([id number]) [address] [place] [address] Chloride [Moles/Vol] 103 mmol/L Normal 98-109 [facility] Comment on above: Performed By: #### C BCA, BMP #### [facility] ([id number]) [address] [place] [address] CO2 [Moles/Vol] 27 mmol/L Normal 22-32 [facility] Comment on above: Performed By: #### C BCA, BMP #### [facility] ([id number]) [address] [place] [address] Creatinine [Mass/Vol] 0.89 mg/dL Normal 0.60-1.30 [facility] Comment on above: Result Comment: METH OD TRACEABLE TO IDMS STANDARD Performed By: #### C BCA, BMP #### [facility] ([id number]) [address] [place] [address] eGFR (CKD-EPI) NON-RACE DEPENDENT >90 Normal >59 [facility] Comment on above: Result Comment: Reported eGFR is based on the CKD-EPI 2020 equation that does not use a race coefficient. Performed By: #### C BCA, BMP #### [facility] ([id number]) [address] [place] [address] Glucose [Mass/Vol] 101 mg/dL High 65-99 [facility] Comment on above: Performed By: #### C BCA, BMP #### [facility] ([id number]) [address] [place] [address] Potassium [Moles/Vol] 4.1 mmol/L Normal 3.5-5.0 [facility] Comment on above: Performed By: #### C BCA, BMP #### [facility] ([id number]) [address] [place] [address] Sodium [Moles/Vol] 139 mmol/L Normal 134-146 [facility] Comment on above: Performed By: #### C BCA, BMP #### [facility] ([id number]) [address] [place] [address] Urea nitrogen [Mass/Vol] 19 mg/dL Normal 5-27 [facility] Comment on above: Performed By: #### C BCA, BMP #### [facility] ([id number]) [address] [place] [address] Basic Metabolic Panelon 10-0 Anion gap [Moles/Vol] 9 mmol/L 5 - 15 mmol/L [facility] Calcium [Mass/Vol] 9.8 mg/dL 8.5 - 10. 5 mg/dL [facility] Chloride [Moles/Vol] 103 mmol/L 98 - 109 mmol/L [facility] CO2 [Moles/Vol] 27 mmol/L 22 - 32 mmol/L [facility] Creatinine [Mass/Vol] 0.89 mg/dL 0.60 - 1.30 mg/dL [facility] Comment on above: METHOD TRACEABLE TO IDNV STANDARD eGFR (CKD-EPI)non-race dependent - PINF [facility] Comment on above: Reported eGFR is based on the CKD-EPI 2020 equation that does not use a race coefficient. Glucose [Mass/Vol] 101 mg/dL High 65 - 99 mg/dL [facility] Interpretation and review of laboratory results Abnormal [facility] Potassium [Moles/Vol] 4.1 mmol/L 3.5 - 5.0 mmol/L [facility] Sodium [Moles/Vol] 139 mmol/L 134 - 146 mmol/L [facility] Urea nitrogen [Mass/Vol] 19 mg/dL 5 - 27 mg/dL [facility] CBC AND AUTO DIFFon 04-04-20 24 ABSOLUTE BASOPHIL 0.0 X10E9/L Normal 0.0-0.2 [facility] Comment on above: Performed By: #### C BCA, BMP #### [facility] ([id number]) [address] [place] [address] ABSOLUTE NEUTROPHIL 4.6 X10E9/L Normal 1.5-6.6 [facility] Comment on above: Performed By: #### C BCA, BMP #### [facility] ([id number]) [address] [place] [address] Basophils/100 WBC (Bld) 0.4 % Normal [facility] Comment on above: Performed By: #### C BCA, BMP #### [facility] ([id number]) [address] [place] [address] Eosinophils (Bld) [#/Vol] 0.1 10*3/uL Normal 0.0-0.4 [facility] Comment on above: Performed By: #### C BCA, BMP #### [facility] ([id number]) [address] [place] [address] Eosinophils/100 WBC (Bld) 1.8 % Normal [facility] Comment on above: Performed By: #### C BCA, BMP #### [facility] ([id number]) [address] [place] [address] Erythrocyte distribution width (RBC) [Ratio] 15.1 % High 11.5-15.0 [facility] Comment on above: Performed By: #### C SHERITA, BMP #### [facility] ([id number]) [address] [place] [address] Hematocrit (Bld) [Volume fraction] 36.7 % Low 39-49 [facility] Comment on above: Performed By: #### C BCA, BMP #### [facility] ([id number]) [address] [place] [address] Hemoglobin (Bld) [Mass/Vol] 12.5 g/dL Low 13.0-17.0 [facility] Comment on above: Performed By: #### C BCA, BMP #### [facility] ([id number]) [address] [place] [address] Lymphocytes (Bld) [#/Vol] 1.4 10*3/uL Normal 1.0-3.5 [facility] Comment on above: Performed By: #### C BCA, BMP #### [facility] ([id number]) [address] [place] [address] Lymphocytes/100 WBC (Bld) 21.3 % Normal [facility] Comment on above: Performed By: #### C BCA, BMP #### [facility] ([id number]) [address] [place] [address] MCH (RBC) [Entitic mass] 30.1 pg Normal 27-34 [facility] Comment on above: Performed By: #### Manuela MAGALLON, BMP #### [facility] ([id number]) [address] [place] [address] MCHC (RBC) [Mass/Vol] 34.0 g/dL Normal 32-36 [facility] Comment on above: Performed By: #### Manuela MAGALLON, BMP #### [facility] ([id number]) [address] [place] [address] MCV (RBC) [Entitic vol] 89 fL Normal 80-100 [facility] Comment on above: Performed By: #### Manuela MAGALLON, BMP #### [facility] ([id number]) [address] [place] [address] Monocytes (Bld) [#/Vol] 0.6 10*3/uL Normal 0-0.9 [facility] Comment on above: Performed By: #### Manuela MAGALLON, BMP #### [facility] ([id number]) [address] [place] [address] Monocytes/100 WBC (Bld) 8.6 % Normal [facility] Comment on above: Performed By: #### Manuela MAGALLON, BMP #### [facility] ([id number]) [address] [place] [address] Neutrophils/100 WBC (Bld) 67.9 % Normal [facility] Comment on above: Performed By: #### Manuela MAGALLON, BMP #### [facility] ([id number]) [address] [place] [address] Platelet mean volume (Bld) [Entitic vol] 8.0 fL Normal 7-12 [facility] Comment on above: Performed By: #### Manuela MAGALLON, BMP #### [facility] ([id number]) [address] [place] [address] Platelets (Bld) [#/Vol] 205 10*3/uL Normal 150-450 [facility] Comment on above: Performed By: #### Manuela MAGALLON, BMP #### [facility] ([id number]) [address] [place] [address] RBC COUNT 4.14 X10E12/L Normal 4.10-5.70 [facility] Comment on above: Performed By: #### Manuela MAGALLON, BMP #### [facility] ([id number]) [address] [place] [address] WBC (Bld) [#/Vol] 6.7 10*3/uL Normal 4.0-11.0 [facility] Comment on above: Performed By: #### Manuela MAGALLON, BMP #### [facility] ([id number]) [address] [place] [address] CBC auto differentialon 10-0 -2023 Basophils (Bld) [#/Vol] 0.0 10*3/uL [facility] Basophils/100 WBC (Bld) 0.4 % [facility] Eosinophils (Bld) [#/Vol] 0.1 10*3/uL [facility] Eosinophils/100 WBC (Bld) 1.8 % [facility] Erythrocyte distribution width (RBC) [Ratio] 15.1 % High 11.5 - 15.0 % [facility] Hematocrit (Bld) [Volume fraction] 36.7 % Low 39 - 49 % [facility] Hemoglobin (Bld) [Mass/Vol] 12.5 g/dL Low 13.0 - 17.0 g/dL [facility] Interpretation and review of laboratory results Abnormal [facility] Lymphocytes (Bld) [#/Vol] 1.4 10*3/uL [facility] Lymphocytes/100 WBC (Bld) 21.3 % [facility] MCH (RBC) [Entitic mass] 30.1 pg 27 - 34 pg [facility] MCHC (RBC) [Mass/Vol] 34.0 g/dL 32 - 36 g/dL [facility] MCV (RBC) [Entitic vol] 89 fL 80 - 100 fL [facility] Monocytes (Bld) [#/Vol] 0.6 10*3/uL [facility] Monocytes/100 WBC (Bld) 8.6 % [facility] Neutrophils (Bld) [#/Vol] 4.6 10*3/uL [facility] Neutrophils/100 WBC (Bld) 67.9 % [facility] Platelet mean volume (Bld) [Entitic vol] 8.0 fL 7 - 12 fL [facility] Platelets (Bld) [#/Vol] 205 10*3/uL [facility] RBC (Bld) [#/Vol] 4.14 10*6/uL [facility] WBC corrected for nucl RBC Auto (Bld) [#/Vol] 6.7 [facility] ECG 12 leadon 04-04-2024 [facility] Ambulatory Visit Summaryon 0 02-07-2024 [...] Strength 500 mg oral tablet) acetaminophen-hydroco done ([place] 325 mg-5 mg oral tablet) ascorbic acid [...] [facility] [address], [place] [address]- Medications What How Much When Instructions Unchanged [...] if questions or concerns Unchanged acetaminophen-hydroco done ([place] 325 mg-5 mg oral tablet) 1 Tablets [...] 50 ye (more content not included)... Normal [facility] Urology Office/Clinic Noteon 02-07-2024 Urology Office/Clinic Note [...] [facility] [address], [place] [address]- Additional Instructions: 1 yr Patient Education Benign [...] tablet, 200 mg= 1 tab(s), Oral, q24hr [place] 325 mg-5 mg oral tablet, 1 tab(s), [...] 1 c (more content not included)... Normal [facility] Comment on above: Result Comment: Elec tronically [...] right total hip replacement Amauri Blair D.O. [facility] Radiology Study observation (narrative) [facility] XR Hip - right 3 ViewsOrdere d By: Charissa Blair on 08-09-2023 [facility] Work Phone: ABO Rh Repeaton 07-07-2023 [...] Delcid MD on 07/07/2023 11:06 AM Normal [facility] XR Pelvis and Hip - right 2 Viewson 07-07-2023 XR HIP RT 2-3 VIEWS W OR WO PELVIS HISTORY: Hip replacement. COMPARISON: None. IMPRESSION: 1. Hip prosthesis noted without visible acute complication Finalized by Price Delcid MD on 07/07/2023 11:06 AM Price Lopez, MD - 07/07/2023 XR HIP RT 2-3 VIEWS W OR WO PELVIS HISTORY: Hip replacement. COMPARISON: None. IMPRESSION: 1. Hip prosthesis noted without visible acute complication Finalized by Price Delcid MD on 07/07/2023 11:06 AM [facility] Study observation (narrative) [facility] XR Pelvis and Hip - right 2 ViewsOrdered By: Price Delcid on 07-07-2023 [employer] Work Phone: CNOVon 04-13-2023 CNOV Office Visit (SPSLUH ) LAWSON VELA ([id number]) 1955 M [facility] Date Time Provider Department 04/13/23 11:[address] [facility] During your visit today, we recorded [...] a week. 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 [facility] XR lumbar spine 6V w bending on 12-17-2022 XR lumbar spine 6V w bending [facility] [address] [place] [address] XRay Report Signed Patient: Lawson Vela MR#: [id number] : 1955 Acct:[id number] Age/Sex: 67 / M ADM Date: 12/17/22 Loc: XD Room: Type: [facility] Attending Dr: Erica MILLER Copies to: ANGELA [...] Cobian Jr., D.OFabio12/17/2022 3:16 PM Dictation Location: [place] [address] Transcribed By: [facility] 12/17/22 1516 Dictated By: Lenny Cobian Jr, DO 12/17/22 1514 Signed By: 12/17/22 1516 Normal [facility] XR lumbar spine 6V w bending [facility] Other XR lumbar spine 6V w bending [facility] Other XR lumbar spine 6V w bending [address] [place] [address] [employer] Other XR lumbar spine 6V [place] [address] [employer] Other XR lumbar spine 6V w bending XRay Report [employer] Other XR lumbar spine 6V w bending Signed [employer] Other XR lumbar spine 6V w bending Patient: Lawson Vela MR#: [id number] [employer] Other XR lumbar spine 6V w bending : 1955 Acct:[id number] [employer] Other XR lumbar spine 6V w bending Age/Sex: 67 / M ADM Date: 12/17/22 [employer] Other XR lumbar spine 6V w bending Loc: XD Room: Type: [facility] [employer] Other XR lumbar spine 6V w bending Attending Dr: Erica MILLER [employer] Other XR lumbar spine 6V w bending Copies to: ANGELA Khan [employer] Other XR lumbar spine 6V w bending Ordering Provider: AURELIANO KhanC [employer] Other XR lumbar spine 6V w bending Date of Service: 12/17/22 [employer] Other XR lumbar spine 6V w bending XR/XR lumbar spine 6V w bending: M54.16 [employer] Other XR lumbar spine 6V w bending LUMBAR SPINE - 6 views [employer] Other XR lumbar spine 6V w bending CLINICAL HISTORY: Right leg pain and numbness that radiates to toes [employer] Other XR lumbar spine 6V w bending COMPARISON: None [employer] Other XR lumbar spine 6V w bending FINDINGS: Vertebral body heights appear maintained. Diffuse endplate and facet joint degenerative [employer] Other XR lumbar spine 6V w bending changes. Mild diffuse disc space narrowing with relative sparing of L5-S1. No pathological motion [employer] Other XR lumbar spine 6V w bending on flexion or extension views. Limited sidebending. [employer] Other XR lumbar spine 6V w bending XR/XR lumbar spine 6V w bending [employer] Other XR lumbar spine 6V w bending IMPRESSION: [employer] Other XR lumbar spine 6V w bending DEGENERATIVE CHANGES OF THE LUMBAR SPINE WITH MILD DIFFUSE DISC SPACE NARROWING WITH RELATIVE [employer] Other XR lumbar spine 6V w bending SPARING OF L5-S1. [employer] Other XR lumbar spine 6V w bending Impression dictated by: Lenny Cobian Jr., DFabioOFabio12/17/2022 3:16 PM [employer] Other XR lumbar spine 6V w bending Dictation Location: [place] [address] [employer] Other XR lumbar spine 6V w bending Transcribed By: ROMY 12/17/22 1516 [employer] Other XR lumbar spine 6V w bending Dictated By: Lenny Cobian Jr, DO 12/17/22 5132 [employer] Other XR lumbar spine 6V w bending Signed By: [employer] Other XR lumbar spine 6V w bending 12/17/22 6115 [employer] Other XR HIPS TRENT 3_4V WO PELVISon [...] KNAPP Date: 2022-11-13 13:07 Normal [facility] MRI Lumbar Spine w/oon 05-01 [...] YASMANY ARAYA on 05/01/2022 [address] [facility] XR Orbits for MRIon 04-27-20 XR Orbits for MRI CLINICAL HISTORY: Prescreening for MRI. COMPARISON: None. RESULT: No radiopaque foreign bodies. No acute osseous findings. IMPRESSION: No radiopaque foreign bodies. Report reported and signed by Javad Dickens on 04/27/2022 [address] [facility] XR Spine Lumbar 4+ Views*on 04-06-2022 XR [...] by Lenny Cook on 04/06/2022 1106 Normal [facility] Vital Signs Date Time Vital Sign Value Performing Clinician Facility 11-29-2024 11:33-0400 Body height 185.4 cm Alma Hemmer PA Work Phone: [facility] 11-29-2024 11:33-0400 Body mass index (BMI) [Ratio] 38.39 kg/m2 Alma Hemmer PA Work Phone: [facility] 11-29-2024 11:33-0400 Body weight 132 kg Alma Hemmer PA Work Phone: [facility] 11-29-2024 11:33-0400 Diastolic blood pressure 80 mm[Hg] Alma Hemmer PA Work Phone: [facility] 11-29-2024 11:33-0400 Heart rate 81 /min Alma Hemmer PA Work Phone: [facility] 11-29-2024 11:33-0400 Respiratory rate 16 /min Alma Hemmer PA Work Phone: [facility] 11-29-2024 11:33-0400 SaO2% (BldA) [Mass fraction] 96 % Alma Hemmer PA Work Phone: [facility] 11-29-2024 11:33-0400 Systolic blood pressure 136 mm[Hg] Alma Hemmer PA Work Phone: [facility] 10-25-2024 10:57-0400 Body height 185.4 cm Javad Donato MD Work Phone: [facility] 10-25-2024 10:57-0400 Body mass index (BMI) [Ratio] 38.52 kg/m2 Javad Donato MD Work Phone: [facility] 10-25-2024 10:57-0400 Body weight 132.45 kg Javad Donato MD Work Phone: [facility] 10-25-2024 10:57-0400 Diastolic blood pressure 76 mm[Hg] Javad Donato MD Work Phone: [facility] 10-25-2024 10:57-0400 Heart rate 82 /min Javad Donato MD Work Phone: [facility] 10-25-2024 10:57-0400 SaO2% (BldA) [Mass fraction] 95 % Javad Donato MD Work Phone: [facility] 10-25-2024 10:57-0400 Systolic blood pressure 130 mm[Hg] Javad Donato MD Work Phone: [facility] 07-27-2024 10:26-0500 Body height 185.4 cm Alma Hemmer PA Work Phone: [facility] 07-27-2024 10:26-0500 Body mass index (BMI) [Ratio] 38.34 kg/m2 Alma Hemmer PA Work Phone: [facility] 07-27-2024 10:26-0500 Body temperature 97.5 [degF] Alma Hemmer PA Work Phone: [facility] 07-27-2024 10:26-0500 Body weight 131.81 kg Alma Hemmer PA Work Phone: [facility] 07-27-2024 10:26-0500 Diastolic blood pressure 74 mm[Hg] Alma Hemmer PA Work Phone: [facility] 07-27-2024 10:26-0500 Heart rate 88 /min Alma Hemmer PA Work Phone: [facility] 07-27-2024 10:26-0500 Respiratory rate 18 /min Alma Hemmer PA Work Phone: [facility] 07-27-2024 10:26-0500 SaO2% (BldA) [Mass fraction] 95 % Alma Hemmer PA Work Phone: [facility] 07-27-2024 10:26-0500 Systolic blood pressure 128 mm[Hg] Alma Hemmer PA Work Phone: [facility] 06-14-2024 09:36-0500 Body height 185.4 cm Javad Donato MD Work Phone: [facility] 06-14-2024 09:36-0500 Body mass index (BMI) [Ratio] 37.6 kg/m2 Javad Donato MD Work Phone: [facility] 06-14-2024 09:36-0500 Body weight 129.28 kg Javad Dontao MD Work Phone: [facility] 06-14-2024 09:36-0500 Diastolic blood pressure 70 mm[Hg] Javad Donato MD Work Phone: [facility] 06-14-2024 09:36-0500 Heart rate 98 /min Javad Donato MD Work Phone: [facility] 06-14-2024 09:36-0500 SaO2% (BldA) [Mass fraction] 97 % Javad Donato MD Work Phone: [facility] 06-14-2024 09:36-0500 Systolic blood pressure 126 mm[Hg] Javad Donato MD Work Phone: [facility] 04-17-2024 13:49-0400 Body height 185.4 cm Javad Donato MD Work Phone: [facility] 04-17-2024 13:49-0400 Body mass index (BMI) [Ratio] 37.6 kg/m2 Javad Donato MD Work Phone: [facility] 04-17-2024 13:49-0400 Body weight 129.28 kg Javad Donato MD Work Phone: [facility] 04-17-2024 13:49-0400 Diastolic blood pressure 68 mm[Hg] Javad Donato MD Work Phone: [facility] 04-17-2024 13:49-0400 Heart rate 96 /min Javad Donato MD Work Phone: [facility] 04-17-2024 13:49-0400 SaO2% (BldA) [Mass fraction] 98 % Javad Donato MD Work Phone: [facility] 04-17-2024 13:49-0400 Systolic blood pressure 128 mm[Hg] Javad Donato MD Work Phone: [facility] 04-06-2024 11:31-0400 Body height 185.4 cm Charissa Blair DO Work Phone: [facility] 04-06-2024 11:31-0400 Body mass index (BMI) [Ratio] 38.16 kg/m2 Charissa Blair DO Work Phone: [facility] 04-06-2024 11:31-0400 Body weight 131.18 kg Charissa Blair DO Work Phone: [facility] 04-04-2024 09:12-0400 Body height 185.4 cm [facility] 1 [facility] 04-04-2024 09:12-0400 Body mass index (BMI) [Ratio] 37.34 kg/m2 Pm 1 [facility] 04-04-2024 09:12-0400 Body weight 128.37 kg Pmh 1 [facility] 02-17-2024 10:18-0400 Body height 185.4 cm Alma Hemmer PA Work Phone: [facility] 02-17-2024 10:18-0400 Body mass index (BMI) [Ratio] 38.26 kg/m2 Alma Hemmer PA Work Phone: [facility] 02-17-2024 10:18-0400 Body weight 131.54 kg Alma Hemmer PA Work Phone: [facility] 02-17-2024 10:18-0400 Diastolic blood pressure 78 mm[Hg] Alma Hemmer PA Work Phone: [facility] 02-17-2024 10:18-0400 Heart rate 82 /min Alma Hemmer PA Work Phone: [facility] 02-17-2024 10:18-0400 SaO2% (BldA) [Mass fraction] 96 % Alma Hemmer PA Work Phone: [facility] 02-17-2024 10:18-0400 Systolic blood pressure 136 mm[Hg] Alma Hemmer PA Work Phone: [facility] 02-07-2024 10:23-0400 Blood Pressure Location Mac SANTIAGO [facility] 02-07-2024 10:23-0400 Body temperature 98.6 [degF] Mac SANTIAGO [facility] 02-07-2024 10:23-0400 Diastolic blood pressure 82 mm[Hg] Mac SANTIAGO [facility] 02-07-2024 10:23-0400 Heart rate 75 /min Mac SANTIAGO [facility] 02-07-2024 10:23-0400 Respiratory rate 16 /min Mac SANTIAGO [facility] 02-07-2024 10:23-0400 Systolic blood pressure 132 mm[Hg] Mac SANTIAGO [facility] 07-07-2023 12:48-0500 Diastolic blood pressure 85 mm[Hg] Charissa Blair DO Work Phone: [email or web address] 07-07-2023 12:48-0500 Heart rate 88 /min Charissa Blair DO Work Phone: [email or web address] 07-07-2023 12:48-0500 Respiratory rate 22 /min Charissa Del CidRossy DO Work Phone: [email or web address] 07-07-2023 12:48-0500 SaO2% (BldA) [Mass fraction] 90 % Charissa Blair DO Work Phone: [email or web address] 07-07-2023 12:48-0500 Systolic blood pressure 134 mm[Hg] Charissa Blair DO Work Phone: [email or web address] 07-07-2023 10:35-0500 Body temperature 97.3 [degF] Charissa Blair DO Work Phone: [facility] 07-07-2023 06:25-0500 Body height 185.4 cm Charissa Blair DO Work Phone: [facility] 07-07-2023 06:25-0500 Body mass index (BMI) [Ratio] 36.41 kg/m2 Charissa Blair DO Work Phone: [facility] 07-07-2023 06:25-0500 Body weight 125.19 kg Charissa Blair DO Work Phone: [facility] 12-17-2022 13:00-0400 Body height 182.88 cm Erica Xiong Other [employer] Other 12-17-2022 13:00-0400 Body mass index (BMI) [Ratio] 38.51 kg/m2 Erica Xiong Other [employer] Other 12-17-2022 13:00-0400 Body weight 128.82 kg Erica Xiong Other [employer] Other 12-17-2022 13:00-0400 Diastolic blood pressure 88 mm[Hg] Erica Xiong Other [employer] Other 12-17-2022 13:00-0400 Systolic blood pressure 146 mm[Hg] Erica Xiong Other [employer] Other 06-01-2022 11:29-0500 Blood Pressure Location Mac SANTIAGO [facility] 06-01-2022 11:29-0500 Diastolic blood pressure 76 mm[Hg] Mac SANTIAGO [facility] 06-01-2022 11:29-0500 Heart rate 70 /min Macmichelle SANTIAGO [facility] 06-01-2022 11:29-0500 Respiratory rate 16 /min Mac SANTIAGO [facility] 06-01-2022 11:29-0500 Systolic blood pressure 128 mm[Hg] Macmichelle SANTIAGO [facility] 02-16-2022 10:28-0400 Blood Pressure Location Macmichelle SANTIAGO [facility] 02-16-2022 10:28-0400 Diastolic blood pressure 84 mm[Hg] Macmichelle SANTIAGO [facility] 02-16-2022 10:28-0400 Heart rate 68 /min Macmichelle SANTIAGO [facility] 02-16-2022 10:28-0400 Respiratory rate 16 /min Mac SANTIAGO [facility] 02-16-2022 10:28-0400 Systolic blood pressure 136 mm[Hg] Macmichelle SANTIAGO [facility] Encounters Encounter Date Encounter Type Care Provider Facility Start: 02-08-2026 ambulatory Mac Gentilei ty:[facility] Start: 02-05-2025 End: 02-05-2025 ambulatory Mac SANTIAGO Facility:[facility] Start: 02-05-2025 End: 02-05-2025 Patient encounter procedure Mac SANTIAGO [facility] Start: 11-29-2024 End: 11-29-2024 Bamboo flowsheet Alma Mcclendon PA Work Phone: [facility] Start: 11-29-2024 End: 11-29-2024 Bamboo flowsheet Alma Mcclendon PA Work Phone: [facility] Start: 11-29-2024 End: 11-29-2024 Office outpatient visit 25 minutes Alma Mcclendon PA Work Phone: [facility] Comment on above: 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 (Primary Dx); Benign essential hypertension (CMS/HCC); S/P total left hip arthroplasty; Tinea pedis of both feet; Skin irritation; Open wound of left lower leg, initial encounter; Class 2 severe obesity due to excess calories with serious comorbidity and body mass index (BMI) of 38.0 to 38.9 in adult (CMS/HCC); Umbilical hernia without obstruction and without gangrene; Status post right hip replacement Start: 11-29-2024 End: 11-29-2024 ambulatory ALMA MCCLENDON Not Available Start: 11-27-2024 End: 11-28-2024 Telephone encounter Javad Donato MD Work Phone: [facility] Comment on above: Med Refill Start: 11-27-2024 End: 11-27-2024 ambulatory Lidia Fletcher MD Facility:[facility] Start: 11-06-2024 End: 11-06-2024 ambulatory Lidia Fletcher MD Facility:[facility] Start: 10-30-2024 End: 10-30-2024 Bamboo flowsheet Jose Hernández NP Work Phone: [facility] Start: 10-30-2024 End: 10-30-2024 Bamboo flowsheet Jose Hernández DELIVERY CONSULTANT Work Phone: [facility] Start: 10-30-2024 End: 10-30-2024 Office outpatient visit 15 minutes Jose Hernández NP Work Phone: [facility] Comment on [...] 07-31-2024 End: 07-31-2024 Bamboo flowsheet Jose Hernández DELIVERY CONSULTANT Work Phone: [facility] Start: 07-31-2024 End: 07-31-2024 Bamboo flowsheet Jose Hernández DELIVERY CONSULTANT Work Phone: [facility] Start: 07-31-2024 End: 07-31-2024 Postop follow up visit related to original px Jose Hernández DELIVERY CONSULTANT Work Phone: [facility] Comment on above: S/P total left hip a rthroplasty (Primary Dx) Start: 07-31-2024 End: 07-31-2024 ambulatory JOSE HERNÁNDEZ Not Available Start: 07-27-2024 End: 07-27-2024 Bamboo flowsheet Alma Mcclendon PA Work Phone: [facility] Start: 07-27-2024 End: 07-27-2024 Bamboo flowsheet Almaluis Mcclendon PA Work Phone: [facility] Start: 07-27-2024 End: 07-27-2024 Office outpatient visit 15 minutes Alma Mcclendon PA Work Phone: [facility] Comment on above: Acute non-recurrent frontal sinusitis (Primary Dx); Herniated lumbar disc without myelopathy Start: 07-27-2024 End: 07-27-2024 ambulatory ALMA MCCLENDON Not Available Start: 07-21-2024 End: 07-21-2024 ambulatory Jeanna Mendiola GRANTS DIRECTOR Work Phone: [facility] Comment on above: Left hip pain (Prima ry Dx); S/P total left hip arthroplasty Start: 07-14-2024 End: 07-14-2024 ambulatory Jeanna Mendiola GRANTS DIRECTOR Work Phone: [facility] Comment on above: Left hip pain (Prima ry Dx); S/P total left hip arthroplasty Start: 07-12-2024 End: 07-12-2024 Bamboo flowshector Mendiola GRANTS DIRECTOR Work Phone: [facility] Start: 07-12-2024 End: 07-12-2024 Bamboo flowsheet Jeanna Mendiola GRANTS DIRECTOR Work Phone: [facility] Start: 07-12-2024 End: 07-12-2024 ambulatory Jeanna Mendiola GRANTS DIRECTOR Work Phone: [facility] Comment on above: Left hip pain (Prima ry Dx); S/P total left hip arthroplasty Start: 07-07-2024 End: 07-07-2024 Bamboo flowsheet Jeanna Mendiola GRANTS DIRECTOR Work Phone: [facility] Start: 07-07-2024 End: 07-07-2024 Bamboo flowsheet Jeanna Mendiola GRANTS DIRECTOR Work Phone: [facility] Start: 07-07-2024 End: 07-07-2024 ambulatory Jeanna Mendiola GRANTS DIRECTOR Work Phone: [facility] Comment on above: Left hip pain (Prima ry Dx); S/P total left hip arthroplasty Start: 07-06-2024 End: 07-06-2024 ambulatory YOSEF CHEEMA Not Available Start: 07-05-2024 End: 07-05-2024 ambulatory Jeanna Mendiola GRANTS DIRECTOR Work Phone: [facility] Comment on above: Left hip pain (Prima ry Dx); S/P total left hip arthroplasty Start: 07-03-2024 End: 07-03-2024 Bamboo flowsheet Jose Hernández DELIVERY CONSULTANT Work Phone: [facility] Start: 07-03-2024 End: 07-03-2024 Bamboo flowshector Hernández DELIVERY CONSULTANT Work Phone: [facility] Start: 07-03-2024 End: 07-03-2024 Postop follow up visit related to original px Jose Hernández DELIVERY CONSULTANT Work Phone: [facility] Comment on above: S/P total left hip a rthroplasty (Primary Dx) Start: 07-03-2024 End: 07-03-2024 ambulatory JOSE HERNÁNDEZ Not Available Start: 06-30-2024 End: 06-30-2024 Bamboo flowsheet Jeanna Mendiola GRANTS DIRECTOR Work Phone: [facility] Start: 06-30-2024 End: 06-30-2024 Bamboo flowsheet Jeanna Mendiola GRANTS DIRECTOR Work Phone: [facility] Start: 06-30-2024 End: 06-30-2024 ambulatory Jeanna Mendiola GRANTS DIRECTOR Work Phone: [facility] Comment on above: Left hip pain (Prima ry Dx); S/P total left hip arthroplasty Start: 06-26-2024 End: 06-26-2024 Bamboo flowsheet Kailey Goldman GRANTS DIRECTOR [facility] Start: 06-26-2024 End: 06-26-2024 Bamboo flowsheet Kailey Goldman GRANTS DIRECTOR [facility] Start: 06-26-2024 End: 06-26-2024 ambulatory Kailey Goldman GRANTS DIRECTOR [facility] Comment on above: Left hip pain (Prima ry Dx); S/P total left hip arthroplasty Start: 06-22-2024 End: 06-22-2024 ambulatory JAVAD DONATO Not Available Start: 06-20-2024 End: 06-20-2024 Bamboo flowsheet Nagi Snow Narendra PT Work Phone: [facility] Start: 06-20-2024 End: 06-20-2024 Bamboo flowsheet Nagi Snow Narendra PT Work Phone: [facility] Start: 06-20-2024 End: 06-20-2024 ambulatory Nagi Snow Narendra PT Work Phone: [facility] [...] 06-12-2024 End: 06-12-2024 Bamboo flowsheet Jose Hernández DELIVERY CONSULTANT Work Phone: [facility] Start: 06-12-2024 End: 06-12-2024 Bamboo flowsheet Jose Hernández DELIVERY CONSULTANT Work Phone: [facility] Start: 06-12-2024 End: 06-12-2024 Postop follow up visit related to original px Jose Hernández DELIVERY CONSULTANT Work Phone: [facility] Comment on above: S/P total left hip a rthroplasty (Primary Dx); Left hip pain Start: 06-12-2024 End: 06-12-2024 ambulatory JOSE HERNÁNDEZ Not Available Start: 05-16-2024 End: 05-16-2024 Bamboo flowsheet Charissa Blair DO Work Phone: [facility] Start: 05-16-2024 End: 05-16-2024 Bamboo flowsheet Charissa Blair DO Work Phone: [facility] Start: 05-16-2024 End: 05-16-2024 Postop follow up visit related to original px Charissa Blair DO Work Phone: [facility] Comment on above: S/P total [...] 05-08-2024 End: 05-08-2024 Telephone encounter Jose Hernández DELIVERY CONSULTANT Work Phone: [facility] Start: 05-04-2024 End: 05-04-2024 Telephone encounter Charissa Blair DO Work Phone: [facility] Comment on above: Discharge Start: 05-03-2024 End: 05-03-2024 ambulatory CHARISSA BLAIR [facility] Start: 05-02-2024 End: 05-02-2024 Refill Jose Hernández DELIVERY CONSULTANT Work Phone: [facility] Comment on [...] 04-06-2024 End: 04-06-2024 Bamboo flowsheet Jose Hernández DELIVERY CONSULTANT Work Phone: [facility] Start: 04-06-2024 End: 04-06-2024 Bamboo flowsheet Jose Hernández DELIVERY CONSULTANT Work Phone: [facility] Start: 04-06-2024 End: 04-06-2024 Office outpatient visit 40 minutes Charissa Blair DO Work Phone: [facility] Comment on above: Left hip pain; Arthritis of left hip Start: 04-06-2024 End: 04-06-2024 ambulatory CHARISSA BLAIR Not Available Start: 04-04-2024 End: 04-04-2024 Patient encounter procedure [facility] Pre-Admission Testing 1 [facility] - Pre Admit Comment on above: Preop examination (P rimary Dx); Hypertension, unspecified type Start: 04-04-2024 End: 04-04-2024 Preprocedural examination done [facility] 1 [facility] Start: 04-04-2024 End: 04-04-2024 ambulatory [facility] Start: 03-15-2024 End: 03-15-2024 Telephone encounter Nagi Plata PT Work Phone: [facility] Start: 02-17-2024 End: 02-17-2024 Office outpatient visit 15 minutes Alma Mcclendon PA Work Phone: [facility] Comment on above: Acute pharyngitis, u nspecified etiology (Primary Dx) Start: 02-17-2024 End: 02-17-2024 ambulatory ALMA MCCLENDON Not Available Start: 02-07-2024 End: 02-07-2024 ambulatory Mac SANTIAGO Facility:[facility] Start: 02-07-2024 End: 02-07-2024 Patient encounter procedure Mac SANTIAGO [facility] Start: 01-27-2024 End: 01-27-2024 ambulatory CHARISSA BLAIR Not Available Start: 01-21-2024 End: 01-21-2024 ambulatory ALMA MCCLENDON Not Available Start: 12-16-2023 End: 12-16-2023 ambulatory CHARISSA BLAIR Not Available Start: 12-13-2023 End: 12-13-2023 ambulatory JOSE HERNÁNDEZ Not Available Start: 08-09-2023 Bamboo flowsheet Jeanna Janetig ht GRANTS DIRECTOR Work Phone: [facility] Start: 08-09-2023 Bamboo flowsheet Jeanna Wrig ht GRANTS DIRECTOR Work Phone: [facility] Start: 08-09-2023 End: 08-09-2023 Postop follow up visit related to original px Jose Hernández DELIVERY CONSULTANT Work Phone: [facility] Comment on above: 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; Status post right hip replacement Start: 08-09-2023 End: 08-09-2023 ambulatory Jeanna Mendiola GRANTS DIRECTOR Work Phone: [facility] Comment on above: Right hip pain (Prim billie Dx); Status post total hip replacement, right; Arthritis of right hip Start: 08-06-2023 End: 08-06-2023 ambulatory Jeanna Mendiola GRANTS DIRECTOR Work Phone: [facility] Comment on above: Right hip pain (Prim billie Dx); Status post total hip replacement, right; Arthritis of right hip Start: 08-02-2023 Bamboo flowsheet Jeanna Janetig ht GRANTS DIRECTOR Work Phone: [facility] Start: 08-02-2023 Bamboo flowsheet Jeanna Wrig ht GRANTS DIRECTOR Work Phone: [facility] Start: 08-02-2023 End: 08-02-2023 ambulatory Jeanna Mendiola GRANTS DIRECTOR Work Phone: [facility] Comment on above: Right hip pain (Prim billie Dx); Status post total hip replacement, right; Arthritis of right hip Start: 07-29-2023 End: 07-29-2023 ambulatory Nagi Plata PT Work Phone: [facility] Comment on above: Right hip pain (Prim billie Dx); Status post total hip replacement, right Start: 07-08-2023 End: 07-08-2023 ambulatory DEVIN SAUL [facility] Start: 07-07-2023 End: 07-08-2023 ambulatory [facility] Start: 07-07-2023 End: 07-07-2023 ambulatory [facility] Start: 07-07-2023 End: 07-07-2023 Subsequent hospital visit by physician Charissa Blair DO Work Phone: [facility] Start: 07-05-2023 End: 07-05-2023 ambulatory [facility] Start: 07-05-2023 Encounter for other preprocedural examination [facility] Start: 04-13-2023 End: 04-13-2023 ambulatory LAILA LEWIS [facility] Start: 04-13-2023 End: 04-13-2023 Patient encounter procedure Laila Lewis PA-C Work Phone: [facility] Comment on above: Spinal stenosis, lum bar region with neurogenic claudication (Primary Dx); Bilateral hip joint arthritis Start: 01-28-2023 Chart abstracting Camron Mix MD Work Phone: Neurology Start: 12-17-2022 End: 12-17-2022 Patient encounter procedure II Javad Donato Work Phone: [facility] Work Phone: Start: 12-17-2022 End: 12-17-2022 ambulatory II Javad Donato Work Phone: [facility] Work Phone: Start: 12-17-2022 Encounter for other specified special examinations Erica Xiong [facility] Neurosurgery Start: 12-17-2022 Office outpatient ne w 45 minutes Erica Xiong [facility] Neuro[facility] Start: 11-24-2022 End: 11-25-2022 ambulatory NARENDRANATH LAKSHMIPATHY . Facility:H1 Start: 11-13-2022 End: 11-14-2022 ambulatory NARENDRANATH LAKSHMIPATHY . Facility:[facility]1 Start: 11-10-2022 End: 11-11-2022 ambulatory NARENDRANATH LAKSHMIPATHY . Facility:[facility]1 Start: 10-08-2022 End: 10-09-2022 ambulatory NARENDRANATH LAKSHMIPATHY . Facility:[facility]1 Start: 09-10-2022 End: 09-11-[address] ANTIONE HAWTHORNE . Facility:[facility]1 Start: 08-13-2022 Encounter for preprocedural cardiovascular examination DR ANTIONE HAWTHORNE . [facility] Start: 08-11-2022 End: 08-11-[address] [...] encounter procedure Mac SANTIAGO [facility] Start: 05-19-2022 End: 05-20-[address] ANTIONE HAWTHORNE . Facility:[facility]1 Start: 05-05-2022 End: 11-08-[address] ANTIONE HAWTHORNE . Facility:[facility]1 Start: 04-28-2022 End: 04-29-[address] ANTIONE HAWTHORNE . Facility:[facility]1 Start: 04-27-2022 End: 05-14-[address] JAVAD DONATO Facility:[facility]1 Start: 02-16-2022 End: 02-16-2022 Patient encounter procedure Mac SANTIAGO [facility] Procedures Date Procedure Procedure Detail Performing Clinician Start: 10-30-2024 Radex hip unilateral with pelvis 2-3 views Jose Hernández NP Work Phone: Start: 10-25-2024 Hemoglobin glycosyla angeles a1c Javad Donato MD Work Phone: Start: 06-12-2024 Radex hip unilateral with pelvis 2-3 views Jose Hernández DELIVERY CONSULTANT Work Phone: Start: 04-06-2024 Radex hip unilateral with pelvis 2-3 views Charissa Blair DO Work Phone: Start: 08-09-2023 Radex hip unilateral with pelvis 2-3 views Jose Hernández DELIVERY CONSULTANT Work Phone: Start: 07-07-2023 Radex hip unilateral with pelvis 2-3 views Charissa Blair DO Work Phone: Start: 07-07-2023 REPEATED ABORH Charissa Blair DO Work Phone: Start: 12-17-2022 X-ray of lumbar spin e, six views including bending views II Javad Donato Work Phone: Start: 04-22-2021 Urodynamic studies Lula SANTIAGO Start: 11-26-2020 Cystoscopy Mac KAPADIA Start: 07-12-2017 Colonoscopy Nagi Parker gs PT Work Phone: Start: 06-28-2009 Vasectomy Mac KAPADIA Start: 06-28-1966 Appendectomy Mac WA TERS Carpal tunnel syndro me (disorder) Mac SANTIAGO Colonoscopy Mac SANTIAGO Repair of joint of r ight hip Mac SANTIAGO Plan of Treatment Date Care Activity Detail Author Start: 05-18-2033 DTaP,Tdap and Td Vaccines (2 - Td or Tdap) DTaP,Tdap and Td Vaccines (2 - Td or Tdap) [facility] Start: 07-12-2027 Screening for malign ant neoplasm of colon [facility] Start: 06-14-2025 Medicare Annual Wellness (AWV) Medicare Annual Wellness (AWV) [facility] Start: 04-30-2025 End: 04-30-2025 Patient encounter procedure 04/30/2025 8:00 AM EST Office Visit [facility] [address] [facility] [place] [phone] Jose Hernández, DELIVERY CONSULTANT [address] [facility] [address] [facility] Start: 04-26-2025 End: 04-26-2025 Patient encounter procedure 04/26/2025 9:00 AM EDT Office Visit [facility] [address] [facility] [address] [place] [phone] Javad Donato MD [address] [facility] [address] [place] [address] [facility] Start: 04-04-2025 Adult BMI Screening Adult BMI Screen ing [facility] Start: 04-04-2025 Tobacco Screening Tobacco Screening [facility] Start: 11-29-2024 End: 11-29-2024 Patient encounter procedure [facility] Comment on above: Arrived Start: 10-30-2024 End: 10-30-2024 Patient encounter procedure [facility] Comment on above: Left hip pain Start: 10-25-2024 End: 10-25-2024 Patient encounter procedure 10/25/2024 10:45 AM EDT Office Visit [facility] [address] [place] [address] [place] [address] Javad Donato MD [address] [place] [address] [place] [address] Arrived [facility] Comment on above: Arrived Start: 10-23-2024 End: 10-23-2024 Patient encounter procedure 10/23/2024 10:00 AM EDT Office Visit [facility] [address] [place] [address] [place] [address] Javad Donato MD [address] [place] [address] [place] [address] [facility] Start: 07-31-2024 End: 07-31-2024 Patient encounter procedure [facility] Comment on above: Arrived Start: 07-27-2024 End: 07-27-2024 Patient encounter procedure 07/27/2024 10:30 AM EST Office Visit [facility] [address] [place] [address] [place] [address] Alma Mcclendon, PA [address] [place] [address] [place] [address] Arrived [facility] Comment on above: Arrived Start: 07-21-2024 End: 07-21-2024 ambulatory 07/21/2024 7:30 AM EST Treatment [facility] [address] [place] [phone] Jeanna Mendiola, GRANTS DIRECTOR [address] [place] [address] [facility] Start: 07-14-2024 End: 07-14-2024 ambulatory [facility] Start: 07-12-2024 End: 07-12-2024 ambulatory [facility] Comment on above: Arrived Start: 07-07-2024 End: 07-07-2024 ambulatory 07/07/2024 7:30 AM EST Treatment [facility] [address] [place] [phone] Jeanna Mendiola, GRANTS DIRECTOR [address] [place] [address] [facility] Start: 07-06-2024 End: 07-06-2024 Professional / ancillary services management 07/06/2024 8:00 AM EST Ancillary Procedure [facility] [address] [place] [phone] [facility] Start: 07-05-2024 End: 07-05-2024 ambulatory 07/05/2024 7:30 AM EST Treatment [facility] [address] [place] [address] Jeanna Mendiola, GRANTS DIRECTOR [address] [place] [address] [facility] Start: 07-03-2024 End: 07-03-2024 Patient encounter procedure [facility] Comment on above: Arrived Start: 06-30-2024 End: 06-30-2024 ambulatory [facility] Comment on above: Arrived Start: 06-29-2024 End: 06-29-2024 ambulatory 06/29/2024 7:30 AM EST Treatment [facility] [address] [facility] [address] [place] [address] Kailey Goldman, GRANTS DIRECTOR [facility] Start: 06-26-2024 End: 06-26-2024 ambulatory [facility] Comment on above: Arrived Start: 06-22-2024 End: 06-22-2024 Professional / ancillary services management 06/22/2024 3:15 PM EST Ancillary Procedure [facility] [address] [place] [phone] [facility] Start: 06-20-2024 End: 06-20-2024 ambulatory 06/20/2024 7:00 AM EST Evaluation [facility] [address] [place] [address] Nagi Plata, PT [address] [place] [address] JANEL PEREIRA PT Start: 06-14-2024 End: 06-14-2025 CBC panel - Blood by Automated count CBC Lab Routine Benign essential hypertension (CMS/HCC) IGT (impaired glucose tolerance) Atherosclerosis of aorta (CMS/HCC) Class 2 severe obesity with serious comorbidity and body mass index (BMI) of 37.0 to 37.9 in adult, unspecified obesity type (CMS/HCC) Expected: 06/14/2024 (Approximate), Expires: 06/14/2025 [facility] Comment on above: Expected: [...] type (CMS/HCC) Expected: 06/14/2024 (Approximate), Expires: 06/14/2025 [facility] Comment on above: Expected: 06/14/2024 (Approximate), Expires: 06/14/2025 Start: 06-14-2024 End: 06-14-2025 Hemoglobin A1c/Hemoglobin.total in Blood Hemoglobin A1c Lab Routine Benign essential hypertension (CMS/HCC) IGT (impaired glucose tolerance) Atherosclerosis of aorta (CMS/HCC) Class 2 severe obesity with serious comorbidity and body mass index (BMI) of 37.0 to 37.9 in adult, unspecified obesity type (CMS/HCC) Expected: 06/14/2024 (Approximate), Expires: 06/14/2025 [facility] Comment on above: Expected: 06/14/2024 (Approximate), Expires: 06/14/2025 Start: 06-14-2024 End: 06-14-2025 Lipid 1996 panel - Serum or Plasma Lipid panel Lab Routine Benign essential hypertension (CMS/HCC) IGT (impaired glucose tolerance) Atherosclerosis of aorta (CMS/HCC) Class 2 severe obesity with serious comorbidity and body mass index (BMI) of 37.0 to 37.9 in adult, unspecified obesity type ([facility]/HCC) Expected: 06/14/2024 (Approximate), Expires: 06/14/2025 [facility] Comment on above: Expected: 06/14/2024 (Approximate), Expires: 06/14/2025 Start: 06-14-2024 End: 06-14-2025 Prostate specific Ag [Mass/volume] in Serum or Plasma PSA Lab Routine Screening for prostate cancer Expected: 06/14/2024 (Approximate), Expires: 06/14/2025 [facility] Work Phone: Comment on above: Expected: 06/14/2024 (Approximate), Expires: 06/14/2025 Start: 06-14-2024 End: 06-14-2025 US.doppler Lower extremity artery - bilateral Vascular US lower extremity arterial duplex bilateral Imaging Routine Claudication ([facility]) Expected: 06/14/2024, Expires: 06/14/2025 [facility] Comment on above: Expected: 06/14/2024 , [...] Visit [facility] [address] [place] [address] Charissa Blair, [address] [facility] [address] [place] [address] [facility] Start: 05-09-2024 End: 05-09-2024 Patient encounter procedure 05/09/2024 10:30 AM EST Office Visit [facility] [address] [facility] [address] [place] [address] Charissa Blair, DO [address] [facility] [address] [place] [address] [facility] Start: 05-03-2024 End: 05-03-2024 Admission to same day surgery center 05/03/2024 7:45 AM EST - 05/03/2024 10:00 AM EST Surgery [facility] [address] [place] [address] Charissa Blair, DO [address] [facility] [address] [place] [address] REPLACEMENT TOTAL JOINT HIP [80401 (CPT )] [facility] Comment on above: REPLACEMENT TOTAL BEKA INT HIP [37590 (CPT )] Start: 05-03-2024 End: 05-03-2024 Arthrp acetblr/prox fem prostc agrft/algrft REPLACEMENT TOTAL JOINT HIP left hip degenerative joint disease 05/03/2024 7:45 AM EST [facility] Start: 05-03-2024 Subsequent hospital visit by physician 05/03/2024 7:45 AM EST Hospital Encounter [facility] [address] [place] [phone] Charissa Blair, DO [address] [facility] [address] [place] [address] [facility] Start: 05-03-2024 End: 05-03-2024 Patient encounter procedure 05/03/2024 7:30 AM EST Procedure Visit [facility] Charissa Blair, DO [address] [facility] [address] [place] [address] [facility] Start: 04-24-2024 End: 03-06-2025 Crossmatch RBC Crossmatch RBC Blood Bank Routine Preop examination Hypertension, unspecified type Expected: 04/24/2024, Expires: 03/06/2025 [facility] Comment on above: Expected: 04/24/2024 , Expires: 03/06/2025 Start: 04-24-2024 End: 03-06-2025 Type and screen(includes indirect phill) Type and screen(includes indirect phill) Blood Bank Routine Preop examination Hypertension, unspecified type Expected: 04/24/2024, Expires: 03/06/2025 [facility] Work Phone: Comment on above: Expected: 04/24/2024 , Expires: 03/06/2025 Start: 04-17-2024 End: 04-17-2024 Patient encounter procedure [facility] Comment on above: Arrived Start: 04-06-2024 End: 04-06-2024 Patient encounter procedure [facility] Comment on above: Left hip pain; Arthritis of left hip Start: 03-08-2024 End: 03-08-2024 Patient encounter procedure 03/08/2024 11:15 AM EDT Office Visit [facility] [address] [facility] [address] [place] [phone] Javad Donato MD [address] [facility] [address] [place] [address] [facility] Start: 02-27-2024 Influenza vaccination [facility] Start: 09-20-2023 End: 09-20-2023 Patient encounter procedure 09/20/2023 10:30 AM EDT Office Visit [facility] [address] [place] [phone] Jose Hernández, DELIVERY CONSULTANT [address] [place], [place] [phone] [facility] Start: 08-27-2023 End: 08-27-2023 ambulatory 08/27/2023 9:30 AM EST Treatment [facility] [address] [place] [phone] Nagi Plata, PT [address] [place] [address] [facility] Start: 08-23-2023 End: 08-23-2023 ambulatory 08/23/2023 9:30 AM EST Treatment [facility] [address] [place] [phone] Jeanna Mendiola, GRANTS DIRECTOR [address] [place] [address] [facility] Start: 08-20-2023 End: 08-20-2023 ambulatory 08/20/2023 9:30 AM EST Treatment [facility] [address] [place] [phone] Jeanna Mendiola, GRANTS DIRECTOR [address] [place] [address] [facility] Start: 08-16-2023 End: 08-16-2023 ambulatory 08/16/2023 9:30 AM EST Treatment [facility] [address] [place] [phone] Jeanna Mendiola, GRANTS DIRECTOR [address] [place] [address] [facility] Start: 08-13-2023 End: 08-13-2023 ambulatory 08/13/2023 9:30 AM EST Treatment [facility] [address] [place] [phone] Nagi Plata, PT [address] [place] [address] [facility] Start: 08-09-2023 End: 08-09-2023 Patient encounter procedure 08/09/2023 1:00 PM EST Office Visit [facility] [address] [place] [phone] Jose Hernández, DELIVERY CONSULTANT [address] [place] [address] [facility] Start: 08-09-2023 End: 08-09-2023 ambulatory [facility] Comment on above: Arrived Start: 08-06-2023 End: 08-06-2023 ambulatory 08/06/2023 9:30 AM EST Treatment [facility] [address] [place] [address] Jeanna Mendiola, GRANTS DIRECTOR [address] [place] [address] [facility] Start: 08-02-2023 End: 08-02-2023 ambulatory [facility] Comment on above: Arrived Start: 02-26-2023 Influenza vaccination [facility] Start: 06-28-2022 ADVANCE DIRECTIVE DISCUSSION ADVANCE DIRECTIVE DISCUSSION [facility] Start: 06-28-2022 DEPRESSION ASSESSMENT DEPRESSION ASS ESSMENT [facility] Start: 2019 Abdominal aortic aneurysm screening Abdominal Aortic Aneurysm (AAA) Screen [facility] Start: 2019 Fall Risk Screening Fall Risk Screen ing [facility] Start: 2019 PNEUMOCOCCAL: 65+ (1 - PCV) PNEUMOCOCCAL: 65+ (1 - PCV) [facility] Start: 07-08-2015 Administration of varicella zoster vaccine Zoster (Shingles) Vaccine (2 of 3) [facility] Start: 07-08-2015 Shingrix Vaccine (2 of 3) Shingrix Vaccine (2 of 3) [facility] Start: 2014 RSV Vaccine (1 - 1-d ose 60+ series) RSV Vaccine (1 - 1-dose 60+ series) [facility] Start: 01-02-2004 SHINGRIX VACCINE (1 of 2) SHINGRIX VACCINE (1 of 2) [facility] Start: 1999 COLOGUARD (FIT-DNA) COLOGUARD (FIT-D NA) [facility] Start: 1999 Colonoscopy COLONOSCOPY [facility] Start: 1999 COLORECTAL CANCER SCREENING COLORECTAL CANCER SCREENING [facility] Start: [address] COLONOGRAPHY [facility] Start: 1999 DIABETES SCREEN DIABETES SCREEN [facility] Start: 1999 Diabetes Screening Diabetes Screenin g [facility] Start: 1999 FECAL OCCULT BLOOD FECAL OCCULT BLOO D [facility] Start: 1999 SIGMOIDOSCOPY SIGMOIDOSCOPY [facility] Start: 1989 Lipid 1996 panel - Serum or Plasma Lipid Screening [facility] Start: 1989 LIPID SCREEN LIPID SCREEN [facility] Start: 1973 Urine microalbumin profile [facility] Start: 01-02-1972 Adult BMI Follow Up Plan Adult BMI Follow Up Plan [facility] Start: 01-02-1972 HEPATITIS C SCREENING HEPATITIS C SC REENING [facility] Start: 1966 Depression Screening Depression Scre ening [facility] Start: 1954 COVID-19 VACCINE (#1) COVID-19 VACCI NE (#1) [facility] Start: 1954 Abdominal Aortic Aneurysm Screening Abdominal Aortic Aneurysm Screening [facility] Start: 1954 Medicare Annual Wellness Visit Medicare Annual Wellness Visit [facility] Start: 1954 Screening for malign ant neoplasm of colon [facility] End: 05-12-2024 XR HIP BILATERAL 5V PEL/AP/LAT EACH HIP XR HIP BILATERAL 5V PEL/AP/LAT EACH HIP Radiology Routine Bilateral hip joint arthritis 1 Occurrences starting 04/13/2023 until 05/12/2024 [facility] Work Phone: Comment on above: 1 Occurrences starti ng 04/13/2023 until 05/12/2024 [facility] Immunization Date Immunization Notes Care Provider Fa [facility] 06-14-2024 influenza virus vaccine, unspecified formulation Mac SANTIAGO [facility] 06-14-2024 Influenza, High-dose Seasonal, Quadrivalent, Preservative Free Javad Donato MD Work Phone: [facility] 05-18-2023 RSV vaccine preF3, recombinant Mac SANTIAGO [facility] 05-18-2023 RSV, recombinant, protein subunit RSVpreF, adjuvant reconstitu, 120mcg/0.5mL, PF (Arexvy) Nagi Narendra PT Work Phone: [facility] Work Phone: 05-18-2023 tetanus toxoid, redu sri diphtheria toxoid, and acellular pertussis vaccine, adsorbed Nagi Narendra PT Work Phone: [facility] 05-17-2023 Influenza, High-dose Seasonal, Quadrivalent, Preservative Free Nagi Narendra PT Work Phone: [facility] 05-17-2023 influenza virus vaccine, unspecified formulation Nagi Narendra PT Work Phone: [facility] 04-03-2022 influenza, high dose seasonal, preservative-free Nagi Narendra PT Work Phone: [facility] 04-03-2022 Influenza, High-dose Seasonal, Quadrivalent, Preservative Free Nagi Narendra PT Work Phone: [facility] 04-03-2022 influenza virus vaccine, unspecified formulation Laila Lewis PA-C Work Phone: [facility] 05-21-2020 influenza virus vaccine, unspecified formulation Mac SANTIAGO [facility] 05-21-2020 influenza, injectabl e, quadrivalent, contains preservative Nagi Narendra PT Work Phone: [facility] 05-21-2020 pneumococcal conjuga te vaccine, 13 valent Nagi Narendra PT Work Phone: [facility] 04-10-2020 influenza virus vaccine, unspecified formulation Mac SANTIAGO [facility] 05-03-2019 influenza virus vaccine, unspecified formulation Mac SANTIAGO [facility] 05-03-2019 influenza, injectabl e, madin sancho canine kidney, preservative free Nagi Narendra PT Work Phone: [facility] 05-03-2019 pneumococcal polysaccharide vaccine, 23 valent Nagi Narendra PT Work Phone: [facility] 05-02-2018 influenza virus vaccine, unspecified formulation Mac SANTIAGO [facility] 05-02-2018 seasonal influenza, intradermal, preservative free Nagi Narendra PT Work Phone: [facility] 06-07-2017 influenza virus vaccine, unspecified formulation Mac SANTIAGO [facility] 06-07-2017 influenza, injectabl e, quadrivalent, contains preservative Nagi Narendra PT Work Phone: [facility] 05-13-2015 zoster vaccine, live Nagi Sp collado PT Work Phone: [facility] 05-13-2015 zoster vaccine, unspecified formulation Pmh 1 [facility] NEGATED: Highlighted row has not occurred!08-18-2021 SARS-CoV-2 (COVID-19) Ad26 vaccine, recombinant Mac SANTIAGO [facility] Payers Date Payer Category Payer Self-pay 2021 Private Health Insurance [id number] 2019 Unknown [id number] 2018 Medicare [id number] 1959 Medicare [id number] 1959 Unknown [id number] 1954 Unknown [id number] 2.16.84 0.1.561162.3.579.2.593 1954 Unknown [id number] 2.16.84 0.1.733904.3.579.2.593 1954 Unknown [id number] 2.16.84 0.1.452313.3.579.2.593 1954 Unknown [id number] 2.16.84 0.1.053015.3.579.2.593 1954 Unknown [id number] 2.16.84 0.1.463859.3.579.2.593 1954 Unknown [id number] 2.16.84 0.1.847796.3.579.2.593 1954 Unknown [id number] 2.16.84 0.1.650327.3.579.2.593 1954 Unknown [id number] 2.16.84 0.1.102937.3.579.2.593 1954 Unknown [id number] 2.16.84 0.1.059523.3.579.2.593 1954 Unknown [id number] 2.16.84 0.1.654399.3.579.2.593 1954 Unknown [id number] 2.16.84 0.1.629402.3.579.2.593 1954 Unknown [id number] 2.16.84 0.1.245957.3.579.2.593 1954 Unknown [id number] 2.16.84 0.1.531172.3.579.2.593 1954 Unknown [id number] 2.16.84 0.1.168694.3.579.2.593 1954 Unknown [id number] 2.16.84 0.1.364676.3.579.2.593 1954 Unknown [id number] 2.16.8 40.1.715056.3.579.2.1285 1954 Unknown [id number] 2.16.8 40.1.645906.3.579.2.1285 1954 Unknown [id number] 2.16.8 40.1.516488.3.579.2.1285 1954 Unknown [id number] 2.16.8 40.1.862997.3.579.2.1285 1954 Unknown [id number] 2.16.8 40.1.603955.3.579.2.1285 1954 Unknown [id number] 2.16.84 0.1.614987.3.579.2.1285 1954 Unknown [id number] 2.16.84 0.1.667738.3.579.2.1285 1954 Unknown [id number] 2.16.84 0.1.473205.3.579.2.128 1954 Unknown [id number] 2.16.84 0.1.347740.3.579.2.1285 1954 Unknown [id number] 2.16.84 0.1.704604.3.579.2.128 1954 Unknown [id number] 2.16.8 40.1.305994.3.579.2.1258 1954 Unknown [id number] 2.16.84 0.1.787221.3.579.2.1259 1954 Unknown [id number] 2.16.84 0.1.743673.3.579.2.1258 1954 Unknown [id number] 2.16.84 0.1.850535.3.579.2.9 1954 Unknown [id number] 2.16.84 0.1.110102.3.579.2.1258 1954 Unknown [id number] 2.16.84 0.1.867279.3.579.2.125 1954 Unknown [id number] 2.16.84 0.1.384765.3.579.2.1258 1954 Unknown [id number] 2.16.84 0.1.189176.3.579.2.1258 1954 Unknown [id number] 2.16.84 0.1.444315.3.579.2.1258 1954 Unknown [id number] 2.16.84 0.1.419587.3.579.2.1258 1954 Unknown [id number] 2.16.84 0.1.136490.3.579.2.1258 1954 Unknown [id number] 2.16.84 0.1.376911.3.579.2.1258 1954 Unknown [id number] 2.16.84 0.1.791218.3.579.2.1258 1954 Unknown [id number] 2.16.84 0.1.759340.3.579.2.1258 1954 Unknown [id number] 2.16.84 0.1.641242.3.579.2.1258 1954 Unknown [id number] 2.16.84 0.1.627089.3.579.2.1258 1954 Unknown [id number] 2.16.84 0.1.623750.3.579.2.1258 1954 Unknown [id number] 2.16.84 0.1.005249.3.579.2.1258 1954 Unknown [id number] 2.16.84 0.1.321855.3.579.2.1258 1954 Unknown [id number] 2.16.84 0.1.257435.3.579.2.1258 1954 Unknown [id number] 2.16.84 0.1.154832.3.579.2.1259 1954 Unknown [id number] 2.16.84 0.1.828603.3.579.2.1258 1954 Unknown [id number] 2.16.84 0.1.416893.3.579.2.1258 1954 Unknown [id number] 2.16.84 0.1.547592.3.579.2.1258 1954 Unknown [id number] 2.16.84 0.1.340429.3.579.2.125 1954 Unknown [id number] 2.16.84 0.1.050155.3.579.2.1258 1954 Unknown [id number] 2.16.84 0.1.019259.3.579.2.1258 1954 Unknown [id number] 2.16.84 0.1.426202.3.579.2.1258 1954 Unknown [id number] 2.16.84 0.1.144918.3.579.2.1258 1954 Unknown [id number] 2.16.84 0.1.998077.3.579.2.1258 1954 Unknown [id number] 2.16.84 0.1.131035.3.579.2.1258 1954 Unknown [id number] 2.16. 840.1.323623.3.579.2.196 1954 Unknown [id number] 2.16. 840.1.844182.3.579.2.196 1954 Unknown [id number] 2.16.8 40.1.989131.3.579.2.727 1954 Unknown [id number] 2.16.8 40.1.099409.3.579.2.727 1954 Unknown [id number] 2.16.8 40.1.102845.3.579.2.727 Unknown [id number] 2.16.8 40.1.238393.3.579.2.531 Social History Date Type Detail Facility Start: 05-05-2021 End: 02-05-2025 Ex-smoker (finding) [facility] Start: 04-15-2023 End: 05-10-2023 Male [facility] Start: 1955 Sex Assigned At Male [facility] Tobacco smoking stat [facility] Tobacco smoking consumption unknown [facility] Start: 02-02-2023 Gender identity Identifies as male gender (finding) [facility] Start: 02-02-2023 Sexual orientation Heterosexual (finding) [facility] Start: 06-28-1967 End: 09-27-1975 History of tobacco use Current smoker [facility] [facility] Work Phone: Start: 06-28-1967 End: 09-27-1975 History of tobacco use Cigarette Smoker [facility] Work Phone: Start: 04-15-2023 End: 05-10-2023 History of Social function [facility] Adult Depression Screening Assessment 1 [facility] Start: 01-11-2023 End: 02-17-2024 Tobacco use and exposure Smokeless tobacco non-user [facility] Start: 07-12-2023 End: 11-29-2024 Alcohol intake Current drinker of alcohol (finding) [facility] Within the last year , have you been afraid of your partner or ex-partner? No [facility] Do you belong to any clubs or organizations such as episcopalian groups, unions, fraternal or athletic groups, or [...] Start: 05-28-2023 Tobacco Comment 1976 [facility] Start: 05-27-2020 Alcohol Comment occasional [facility] Start: 04-04-2024 Alcohol Comment rare [facility] Sexual Orientation [facility] Renetta Sex Male (finding) [facility] Medical Equipment Procedure Code Equipment Code Equipment Origin al Text Equipment Identifier Dates Stem Fem 129d 4 06/10 45.5mm Fitmore Protasul-64 Hip Rgh - [id number] Start: 07-07-2023 Maryann Biomet Femoral Head 36mm [id number] Start: 07-07-2023 Screw Bn 30mm 6. [address] Actb Seven Trlg Strl Rpl [id number] - [id number] Start: 07-07-2023 Shell Actb 56mm Hip 4 Hl Clr Cd [place] G7 F Hmsphr - Sna - [id number] Start: 07-07-2023 Liner Actb 36mm F Vivacit-E Lum G7 Hip Strl Lf - [id number] Start: 07-07-2023 Screw Bn 30mm 6. 5[address] St Actb Seven Trlg Strl Rpl [id number] - [id number] Start: 07-07-2023 Screw Bn 30mm 6. 5mm St Actb Seven Trlg Strl Rpl [id number] 29 - [id number] Start: 07-07-2023 Functional Status Date Assessment Result Facility 11-29-2024 Patient Health Quest ionnaire 2 item (PHQ-2) [Reported] [facility] 10-25-2024 Patient Health Quest ionnaire 2 item (PHQ-2) [Reported] [facility] 02-07-2024 Functional Status N/A [facility] 06-01-2022 Functional Status N/A [facility] 02-16-2022 N/A [facility] Clinical Notes 02-16-2022 to 02-05-2025 MARY Mcarthur - 11/29/2024 11:30 AM EDTTelephone [facility]counter [facility] 11/28/[facility]24 1:37 PM ED[facility]elephone [facility] - [facility] 1:37 PM EDTPatient InstructionsAttachments Note Date & Type Note Facility 02-05-2025 Hospital Discharge instructions Patient Education 02/05/2025 11:51:43 Overactive Bladder, Adult [...] You may also have very sensitive muscles that make your bladder squeeze too soon. This condition may also be caused by other factors, such as: Medical conditions: ?Urinary tract infection. ?Infection of nearby tissues. ?Prostate enlargement. ?Bladder stones, inflammation, or tumors. ?Diabetes. ?Muscle or nerve weakness, especially from these conditions: ?A spinal cord injury. ?Stroke. ?Multiple sclerosis. ?Parkinson's disease. Other causes: ?Surgery on the uterus or urethra. ?Drinking too much caffeine or alcohol. ?Certain medicines, especially those that eliminate extra fluid in the body (diuretics). ?Constipation. What increases the risk? You may be at greater risk for overactive bladder if you: Are an older adult. Smoke. Are going through menopause. Have prostate problems. Have a neurological disease, such as stroke, dementia, Parkinson's disease, or multiple sclerosis (MS). Eat or drink alcohol, spicy food, caffeine, and other things that irritate the bladder. Are overweight or obese. What are the signs or symptoms? Symptoms of this condition include a sudden, strong urge to urinate. Other symptoms include: Leaking urine. Urinating 8 or more times a day. Waking up to urinate 2 or more times overnight. How is this diagnosed? This condition may be diagnosed based on: Your symptoms and medical history. A physical exam. Blood or urine tests to check for possible causes, such as infection. You may also need to see a health care provider who specializes in urinary tract problems. This is called a urologist. How is this treated? Treatment for overactive bladder depends on the cause of your condition and whether it is mild or severe. Treatment may include: Bladder training, such as: ?Learning to control the urge to urinate by following a schedule to urinate at regular intervals. ?Doing Kegel exercises to strengthen the pelvic floor muscles that support your bladder. Special devices, such as: ?Biofeedback. This uses sensors to help you become aware of your body's signals. ?Electrical stimulation. This uses electrodes placed inside the body (implanted) or outside the body. These electrodes send gentle pulses of electricity to strengthen the nerves or muscles that control the bladder. ?Women may use a plastic device, called a pessary, that fits into the vagina and supports the bladder. Medicines, such as: ?Antibiotics to treat bladder infection. ?Antispasmodics to stop the bladder from releasing urine at the wrong time. ?Tricyclic antidepressants to relax bladder muscles. ?Injections of botulinum toxin type A directly into the bladder tissue to relax bladder muscles. Surgery, such as: ?A device may be implanted to help manage the nerve signals that control urination. ?An electrode may be implanted to stimulate electrical signals in the bladder. ?A procedure may be done to change the shape of the bladder. This is done only in very severe cases. Follow these instructions at home: Eating and drinking Make diet or lifestyle changes recommended by your health care provider. These may include: ?Drinking fluids throughout the day and not only with meals. ?Cutting down on caffeine or alcohol. ?Eating a healthy and balanced diet to prevent constipation. This may include: ?Choosing foods that are high in fiber, such as beans, whole grains, and fresh fruits and vegetables. ?Limiting foods that are high in fat and processed sugars, such as fried and sweet foods. Lifestyle Lose weight if needed. Do not use any products that contain nicotine or tobacco. These include cigarettes, chewing tobacco, and vaping devices, such as e-cigarettes. If you need help quitting, ask your health care provider. General instructions Take rkgt-fdw-qlmpirs and prescription medicines only as told by your health care provider. If you were prescribed an antibiotic medicine, take it as told by your health care provider. Do not stop taking the antibiotic even if you start to feel better. Use any implants or pessary as told by your health care provider. If needed, wear pads to absorb urine leakage. Keep a log to track how much and when you drink, and when you need to urinate. This will help your health care provider monitor your condition. Keep all follow-up visits. This is important. Contact a health care provider if: You have a fever or chills. Your symptoms do not get better with treatment. Your pain and discomfort get worse. You have more frequent urges to urinate. Get help right away if: You are not able to control your bladder. Summary Overactive bladder refers to a condition in which a person has a sudden and frequent need to urinate. Several conditions may lead to an overactive bladder. Treatment for overactive bladder depends on the cause and severity of your condition. Making lifestyle changes, doing Kegel exercises, keeping a log, and taking medicines can help with this condition. This information is not intended to replace advice given to you by your health care provider. Make sure you discuss any questions you have with your health care provider. Document Revised: 03/03/2021 Document Reviewed: 03/03/2021 [email or web address] Patient Education 2023 [employer]. Follow Up Care 02/07/2024 11:34:29 With:PAMELA BAER, Mac Stephenson, URL Address: [address] [place] [id number] When: Unknown [facility] 02-05-2025 Note Patient Education Obstetrics and Gynecology Overactive Bladder, Adult Overactive bladder is a [...] You may also have very sensitive muscles that make your bladder squeeze too soon. This condition may also be caused by other factors, such as: ??? Medical conditions: ? Urinary tract infection. ? Infection of nearby tissues. ? Prostate enlargement. ? Bladder stones, inflammation, or tumors. ? Diabetes. ? Muscle or nerve weakness, especially from these conditions: ? A spinal cord injury. ? Stroke. ? Multiple sclerosis. ? Parkinson's disease. ??? Other causes: ? Surgery on the uterus or urethra. ? Drinking too much caffeine or alcohol. ? Certain medicines, especially those that eliminate extra fluid in the body (diuretics). ? Constipation. What increases the risk? You may [...] may include: ??? Bladder training, such as: ? Learning to control the urge to urinate by following a schedule to urinate at regular intervals. ? Doing Kegel exercises to strengthen the pelvic floor muscles that support your bladder. ??? Special devices, such as: ? Biofeedback. This uses sensors to help you become aware of your body's signals. ? Electrical stimulation. This uses electrodes placed inside the body (implanted) or outside the body. These electrodes send gentle pulses of electricity to strengthen the nerves or muscles that control the bladder. ? Women may use a plastic device, called a pessary, that fits into the vagina and supports the bladder. ??? Medicines, such as: ? Antibiotics to treat bladder infection. ? Antispasmodics to stop the bladder from releasing urine at the wrong time. ? Tricyclic antidepressants to relax bladder muscles. ? Injections of botulinum toxin type A directly into the bladder tissue to relax bladder muscles. ??? Surgery, such as: ? A device may be implanted to help manage the nerve signals that control urination. ? An electrode may be implanted to stimulate electrical signals in the bladder. ? A procedure may be done to change the shape of the bladder. This is done only in very severe cases. Follow these instructions at home: Eating and drinking ??? Make diet or lifestyle changes recommended by your health care provider. These may include: ? Drinking fluids throughout the day and not only with meals. ? Cutting down on caffeine or alcohol. ? Eating a healthy and balanced diet to prevent constipation. This may include: ? Choosing foods that are high in fiber, such as beans, whole grains, and fresh fruits and vegetables. ? Limiting foods that are high in fat and processed sugars, such as fried and sweet foods. Lifestyle ??? Lose weight if needed. ??? Do not use any products that contain nicotine or tobacco. These include cigarettes, chewing tobacco, and vaping devices, such as e-cigarettes. If you need help quitting, ask your health care provider. General instructions ??? Take ungp-hgp-jeojsno and prescription medicines only as told by your health care provider. ??? If you were prescribed an antibiotic medicine, take it as told by your health care provider. Do not stop taking the antibiotic even if you start to feel better. ??? Use any implants or pessary as told by your health care provider. ??? If needed, wear pads to absorb urine leakage. ??? Keep a log to track how much and when you drink, and whe (more content not included)... [facility] 11-29-2024 History of Present illness Narrative Images from [...] thinks from being hot, it is itchy and worse at night. Prednisone does help. No rash but does itch. Left lower leg with puncture wound about a week ago. Took the Amoxicillin he had because it started to look infected. Admits he is in the [...] mg by mouth in the morning. HYDROcodone-acetaminophen ([place]) 5-325 MG tablet Take 1 tablet by [...] wrist GERD (gastroesophageal reflux disease) HTN (hypertension) ([facility]) Lumbosacral disc disease Osteoarthritis Past Surgical [...] Wt 291 lb SpO2 96% BMI 38.39 kg/m Smoking Status Former BSA 2.61 m [...] circular healing superficial wound, no drainage - See photo. Left foot, skin between 4th and 5th [...] reviewed for this patient. Benign essential hypertension (CMS/HCC) Patient's blood pressure is currently stable. Continue with current medications and I will continue to monitor. Goal BP remains less than 130/80. [...] follow up with Dr. Omari Tomas, his Bariatric Program Coordinator, for further evaluation of the skin between the toes on his left [...] (BMI) of 38.0 to 38.9 in adult (CMS/HCC) Encouraged portion control, decrease simple sugars and [...] Appointment As Scheduled. documented in this encounter [facility] 11-28-2024 Telephone encounter Note Appt scheduled [facility] 11-28-2024 Miscellaneous Notes Appt scheduled Patient will need an appointment Prednisone 20 mg for a skin irritation. He said that he usually gets this medication. Clotrimazole - betamethasone cream for althetes foot He said he hasn't had these meds in a while and didn't know if he would need an appointment or not [facility] documented in this encounter [facility] 11-27-2024 Telephone encounter Note Patient will need an appointment [facility] 11-27-2024 Telephone encounter Note Prednisone 20 mg for a skin irritation. He said that he usually gets this medication. Clotrimazole - betamethasone cream for althetes foot He said he hasn't had these meds in a while and didn't know if he would need an appointment or not [facility] 10-30-2024 History of Present illness Narrative Images [...] Orally finasteride (PROSCAR) 5 mg, Daily HYDROcodone-acetaminophen ([place]) 5-325 MG tablet 1 tablet, Oral, Every [...] Unremarkable left total hip arthroplasty. Jose Hernández CRIMINAL DEFENSE ATTORNEY-LEATHER SCRAPER Procedures Orders Placed This Encounter Procedures XR [...] requiring urgent evaluation. documented in this encounter [facility] 10-25-2024 History of Present [...] day at the same time. [DISCONTINUED] HYDROcodone-acetaminophen ([place]) 5-325 MG tablet Take 1 tablet by [...] LDL-C. Humberto MOORE et al. LULU. 2013;310(19): 1888-3265 (http://education.Biomeasure/faq/ZUN393) CHOL/HDLC RATIO 06/14/2024 5.4 (H) <5.0 (calc) [...] diagnosis of diabetes in children. According to [place] Diabetes Association (ADA) guidelines, hemoglobin A1c <7.0% represents optimal control in non- diabetic patients. Different metrics may apply to specific patient populations. Standards of Medical Care in Diabetes(ADA). Assessment/Plan Diagnoses and all orders for this visit: Herniated lumbar disc without myelopathy - HYDROcodone-acetaminophen ([place]) 5-325 MG tablet; Take 1 tablet by [...] for Routine F/U. documented in this encounter [facility] 09-25-2024 Telephone encounter Note LM for pt to CB [facility] 09-25-2024 Miscellaneous Notes LM for pt to CB Lm to cb Lm on vm to call us, need to know why he is wanting or needing this Patient is wondering if he needs/or is due for an MMR vaccine. documented in this encounter [facility] 09-22-2024 Telephone encounter Note Lm to cb [facility] 09-21-2024 Telephone encounter Note Lm on vm to call us, need to know why he is wanting or needing this [facility] 09-21-2024 Telephone encounter Note Patient is wondering if he needs/or is due for an MMR vaccine. [facility] 07-31-2024 History of Present [...] requiring urgent evaluation. documented in this encounter [facility] 07-27-2024 History of Present [...] mg by mouth in the morning. HYDROcodone-acetaminophen ([place]) 5-325 MG tablet Take 1 tablet by [...] wrist GERD (gastroesophageal reflux disease) HTN (hypertension) ([facility]) Lumbosacral disc disease Osteoarthritis Past Surgical [...] risks of opioid therapy including potential for METAL GAUGE MAKER s/e, GI s/e, respiratory s/e, dermatologic s/e, [...] Medication Follow Up. documented in this encounter [facility] 07-03-2024 History of Present illness Narrative Images from the original note were not included. HISTORY OF PRESENT ILLNESS: POST OP PT Lawson Vela is an 69 y.o. @ male. (EST PT) S/P (L) NASH 05/03/24 (8WKS 5DAYS) XRAYS 06/12/24 IN [facility] DOING WELL- CONTINUES WITH PT, WANTS TO START AQUATIC THERAPY AT [facility]. USES CANE PRN. GOOD ROM/STRENGTH- +HYDROCODONE [...] requiring urgent evaluation. documented in this encounter [facility] 06-20-2024 History of Present [...] ind with HEP for maintenance/progression prn at [place] Short Term Goal #2: pt will demo [...] sign below. Date: documented in this encounter [facility] 06-14-2024 History of Present [...] mg by mouth in the morning. HYDROcodone-acetaminophen ([place]) 5-325 MG tablet Take 1 tablet by [...] (P) Yes Cognitive Screening Three Word Registration: Pod Inns, Watch, CamGSM Drawing: Normal Clock - 2 Three Word Recall: All 3 words correct - 3 Total Score (0-5 Points): 5 Pain Assessment Pain Score: (Patient-Rptd) (P) 3 Advance Care Planning Do you have a living will?: (Patient-Rptd) (P) Yes Do you have a medical power of health care attorney?: (Patient-Rptd) (P) No Objective : BP [...] a living will and durable power of health care attorney for healthcare. We discussed telling keith [...] need - Influenza, high-dose seasonal, quadrivalent, PF (QTM952) (Fluzone High Dose Quad [place] 0.7mL dose) Herniated lumbar disc without myelopathy - HYDROcodone-acetaminophen ([place]) 5-325 MG tablet; Take 1 tablet by mouth every 6 (six) hours if needed for severe pain Claudication (CMS/HCC) - Vascular US lower extremity arterial duplex bilateral; Future Orders Placed This Encounter Procedures Influenza, high-dose seasonal, quadrivalent, PF (OVM760) (Fluzone High Dose Quad North 0.7mL dose) [...] June 14, 2024 documented in this encounter [facility] 06-12-2024 History of Present illness Narrative Images from the original note were not included. HISTORY OF PRESENT ILLNESS: POST OP PT Lawson G Vela is an 69 y.o. @ male. [...] Unremarkable left total hip arthroplasty. Jose Hernández APRN-LEATHER SCRAPER XR hip left 2 or 3 views [...] Unremarkable left total hip arthroplasty. Jose Hernández APRN-LEATHER SCRAPER Procedures Orders Placed This Encounter Procedures XR hip left 2 or 3 views Order Specific Question: Reason for exam: Answer: PAIN Ambulatory referral to Physical Therapy Work on gait. 6 weeks s/p LT NASH Standing Status: Future Standing Expiration Date: 12/11/2024 Referral Priority: Routine Referral Type: Rehabilitation - Outpatient Referral Reason: Specialty Services Required Referred to Provider: Nagi Plata, PT Requested Specialty: Physical Therapy Number of [...] requiring urgent evaluation. documented in this encounter [facility] 05-16-2024 History of Present illness Narrative Images from the original note were not included. HISTORY OF PRESENT ILLNESS: Lawson Vlea is an 69 y.o. @ male. Follow [...] mg by mouth in the morning. HYDROcodone-acetaminophen ([place]) 5-325 MG tablet Take 1 tablet by [...] wrist GERD (gastroesophageal reflux disease) HTN (hypertension) ([facility]) Lumbosacral disc disease Osteoarthritis ALLERGIES: Allergies [...] if he desires a referral to another strategic sourcing specialist we would be happy to make referral, he states he would like to continue his care here. Boni Blair D.O. documented in this encounter [facility] 05-09-2024 History of Present [...] mg by mouth in the morning. HYDROcodone-acetaminophen ([place]) 5-325 MG tablet Take 1 tablet by [...] wrist GERD (gastroesophageal reflux disease) HTN (hypertension) ([facility]) Lumbosacral disc disease Osteoarthritis ALLERGIES: Allergies Allergen [...] Blair/demi Blair D.O. documented in this encounter [facility] 05-08-2024 Telephone encounter Note Post op pain rx refill. PDMP reviewed [facility] 05-08-2024 Miscellaneous Notes Post op pain rx refill. PDMP reviewed documented in this encounter [facility] 05-04-2024 Telephone encounter Note He already discharged and PT is meeting with him today. [facility] 05-04-2024 Miscellaneous Notes He already discharged and PT is meeting with him today. Maxine myrick that patient is being discharged today from his LT Hip replacement and would like us to call patient to let him know what he needs to do. Patient's phone number is [phone]. documented in this encounter [facility] 05-04-2024 Telephone encounter Note Maxine myrick that patient is being discharged today from his LT Hip replacement and would like us to call patient to let him know what he needs to do. Patient's phone number is [phone]. [facility] 05-02-2024 Telephone encounter Note Post op pain rx. PDMP reviewed [facility] 05-02-2024 Miscellaneous Notes Post op pain rx. PDMP reviewed documented in this encounter [facility] 04-17-2024 History of Present illness Narrative Images from the original note were not included. HPI surgical clearance Additional comments: Pt sched 05/03/24 for left hip replacement with Dr Blair at [facility] PAT completed Last edited by France Farah LPN on 04/17/2024 1:48 PM. Subjective Patient ID: Lawson Vela is a 69 y.o. male who presents for surgical clearance (Pt sched 05/03/24 for left hip replacement with Dr Blair at [facility] completed). Pt has had left hip pain [...] mg by mouth in the morning. HYDROcodone-acetaminophen ([place]) 5-325 MG tablet Take 1 tablet by [...] with food 4 tablet 3 [DISCONTINUED] HYDROcodone-acetaminophen ([place]) 5-325 MG tablet No current facility-administered medications [...] As Previously Scheduled. documented in this encounter [facility] 04-12-2024 Telephone encounter Note OARRS reviewed, Rx sent into patient's pharmacy. [facility] 04-12-2024 Miscellaneous Notes OARRS reviewed, Rx sent into patient's pharmacy. Patient comment: Getting prepared for future surgery. documented in this encounter [facility] 04-12-2024 Telephone encounter Note Patient comment: Getting prepared for future surgery. [facility] 04-06-2024 History of Present [...] tx: cane, norco, ice, heat, topicals, XR [facility] 11/01/23, hot tub, PREHAB/HEP Currently seeing pain management, Dr Ludwig [facility] for LBP MEDICATION: Current Outpatient Medications [...] mg by mouth in the morning. HYDROcodone-acetaminophen ([place]) 5-325 MG tablet irbesartan-hydroCHLOROthiazide ([place]) 150-12.5 MG [...] wrist GERD (gastroesophageal reflux disease) HTN (hypertension) ([facility]) Lumbosacral disc disease Osteoarthritis ALLERGIES: Allergies [...] IMAGING: November 01, 2023 x-rays from the [facility] AP pelvis and lateral left hip demonstrate joint space narrowing left hip subchondral sclerosis and subchondral cyst formation consistent with arthritis. Presence of a right hip replacement in good position alignment. Impression: Advanced osteoarthritis left hip Amauri Blair D.Galindo XR hip left 2 or 3 views [...] Blair/demi Blair D.O. documented in this encounter [facility] 04-04-2024 Instructions Trista Pelaez [...] at the main lobby of the [facility]- registration desk is straight ahead as soon as you walk in. Tell them you are here for surgery. 2. If you have a Living Will/Durable Power of [place] for Health Care that is not on [...] after you have bathed. 5. NO nail kuwaiti/acrylic on at least one finger. If you are having a hand, wrist or foot surgery then all nail kuwaiti and artificial/acrylic nails must be removed from [...] please call the Preadmission Testing office at [phone], Mon.-Fri. 7 a.m.-3 p.m. Leave a voicemail [...] with your doctor. documented in this encounter [facility] 04-04-2024 Miscellaneous Notes Patient called and educated to watch his YOLANDA education on total hip replacement prior to his PAT appointment next week. Patient verbalized understanding. documented in this encounter [facility] 04-04-2024 Nurse Note Patient called and educated to watch his YOLANDA education on total hip replacement prior to his PAT appointment next week. Patient verbalized understanding. [facility] 03-15-2024 History of Present illness Narrative No need for Prehab appt, has walker and has recently went through NASH, spoke with pt in parking lot, reviewed precautions good understanding. documented in this encounter [facility] 02-17-2024 History of Present [...] Appointment As Scheduled. documented in this encounter [facility] 02-07-2024 Hospital Discharge instructions [...] urethra. Follow these instructions at home: Take ccsu-ucm-cbggfxw and prescription medicines only as told by [...] provider. Document Revised: 12/31/2021 Document Reviewed: 12/31/2021 Mobile Experience Patient Education 2022 [employer]. Follow Up Care 08/30/2023 12:37:09 With:PAMELA BAER, Mac Stephenosn, URL Address: [facility] [address] [place] [address]- When: Unknown [facility] 02-07-2024 Note Patient Education Urology Benign Prostatic [...] Follow these instructions at home: ? Take gdir-stc-gsqkuix and prescription medicines only as told by [...] develop side effec (more content not included)... [facility] 08-09-2023 History of Present illness Narrative Images [...] develop for requiring urgent evaluation. Jose Hernández CRIMINAL DEFENSE ATTORNEY-LEATHER SCRAPER documented in this encounter [facility] 07-07-2023 Hospital course Narrative Summary: status post hip replacement right Orthopaedic Discharge Summary Patient ID: Lawson Vela [id number] y.o. 1955 Admit date: 07/07/2023 Discharge [...] Closure: Deep and Superficial Layers Hospital Course:See [facility] inpatient notes for specifics Patient was [...] Charissa Blair DO documented in this encounter [facility] 07-07-2023 Progress note Formatting of t his note is different from the original. Physical Therapy Evaluation Discharge Recommendations PT Recommendations: Home Home Recommendations: Intermittent caregiver support for: Post Discharge Therapy Recommendations: Home Physical Therapy Felt Washing Machine Tender Support for-: ADL Deficits, Mobility Deficits Past Medical History: Diagnosis Date Arthritis Benign prostatic hyperplasia Fractures GERD (gastroesophageal reflux disease) Hypertension Past Surgical History: Procedure Laterality Date APPENDECTOMY RELEASE CARPAL TUNNEL Right 05/29/2020 Performed by Charissa Blair DO at [facility] 6 Clicks: Basic Mobility Turning from [...] Principal Problem: Primary osteoarthritis of right hip [facility] 07-07-2023 Miscellaneous Notes Physical Therapy Evaluation Discharge Recommendations PT Recommendations: Home Home Recommendations: Intermittent caregiver support for: Post Discharge Therapy Recommendations: Home Physical Therapy Felt Washing Machine Tender Support for-: ADL Deficits, Mobility Deficits Past Medical History: Diagnosis Date Arthritis Benign prostatic hyperplasia Fractures GERD (gastroesophageal reflux disease) Hypertension Past Surgical History: Procedure Laterality Date APPENDECTOMY RELEASE CARPAL TUNNEL Right 05/29/2020 Performed by Charissa Blair DO at [facility] 6 Clicks: Basic Mobility Turning from [...] in stable condition documented in this encounter [facility] 07-07-2023 Hospital Discharge instructions Janee Viera RN [...] swallowing) Questions, Problems, Concerns Preop phone number [phone] ext [phone] The following attachments cannot be sent through Care Everywhere.Total Hip Replacement Discharge Instructions (Kazakh)documented in this encounter [facility] 07-07-2023 Attending History and physical note HISTORY AND PHYSICAL INTERVAL NOTE: Lawson Vela [id number] H&P reviewed. The patient was examined and there are no changes to the H&P. Charissa Blair DO Source Note - Charissa Blair DO - 07/06/2023 7:28 AM EST [facility] 07-07-2023 History and physical note HISTORY AND PHYSICAL INTERVAL NOTE: Lawson Vela [id number] H&P reviewed. The patient was examined and there are no changes to the H&P. Charissa Blair DO Source Note - Charissa Blair DO - 07/06/2023 7:28 AM EST documented in this encounter [facility] 07-07-2023 Procedure note Summary: Right hip replacement [...] to the recovery room in stable condition [facility] 04-13-2023 Note HNO ID: [id number] Author: Laila Lewis PA-C Service: ? Author Type: Physician Fire Fighting Equipment Specialist Type: Progress Notes Filed: 04/15/2023 1:53 PM [...] a week. Hydrocodone, Meloxicam Zanaflex, Lidocaine patches director of medicare Prior to ablation symptoms on left have [...] days 2 More (more content not included)... [facility] 04-13-2023 Instructions Laila Lewis PA-C - [...] which is considered uptake). Laila Lewis PA-C [phone] documented in this encounter [facility] 04-13-2023 History of Present illness Narrative [...] a week. Hydrocodone, Meloxicam Zanaflex, Lidocaine patches director of medicare Prior to ablation symptoms on left have [...] the patient MRI Lumbar: Narrative PERFORMED AT [facility] LOCATION:[facility] CLINICAL HISTORY: Low back pain extending into the right lower extremity. COMPARISON: 05/01/2022 TECHNIQUE: Multiplanar MR imaging of the lumbar spine was performed. FINDINGS: The spine is visualized from the H22-F9-B8 levels on the sagittal sequences, assuming a [...] narrowing. At the L5-S1 level, there is jlwn-cc-ckpxzfsn diffuse disc bulging and moderate hypertrophic facet changes, which results in moderate to marked neural foraminal narrowing. Procedure Note CONVERSION, GENERIC - 11/13/2022 PERFORMED AT [facility] LOCATION:[facility] CLINICAL HISTORY: Low back pain extending into the right lower extremity. COMPARISON: 05/01/2022 TECHNIQUE: Multiplanar MR imaging of the lumbar spine was performed. FINDINGS: The spine is visualized from the O62-V5-Q0 levels on the sagittal sequences, assuming a [...] narrowing. At the L5-S1 level, there is bvvb-iv-abhpdqlg diffuse disc bulging and moderate hypertrophic facet changes, which results in moderate to marked neural foraminal narrowing. 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 Report reported and signed by James Vizcaino on 10/19/2022 1406 CONVERSION, GENERIC - 11/14/2022 PERFORMED AT [facility] LOCATION:[place] 112 110 EXAMINATION: XR HIPS TRENT 3_4V [...] PAGER: documented in this encounter [facility] 02-12-2023 Note HNO ID: [id number] Author: Laila Lewis PA-C Service: ? Author Type: Physician Fire Fighting Equipment Specialist Type: Progress Notes Filed: 02/12/2023 12:58 PM Note Text: Per Triage: Lawson Vela is a 68 year old male that requests evaluation of lumbar spine. Per review, they have symptoms of LBP into left leg pain. Positive for numbness, difficulty walking and weakness. CMT: PT Hydrocodone director of medicare Studies (Reports unless indicated) MRI Lumbar: Narrative PERFORMED AT [facility] LOCATION:[facility] CLINICAL HISTORY: Low back pain extending into the right lower extremity. COMPARISON: 05/01/2022 TECHNIQUE: Multiplanar MR imaging of the lumbar spine was performed. FINDINGS: The spine is visualized from the O20-R0-N0 levels on the sagittal sequences, assuming a [...] narrowing. At the L5-S1 level, there is cyjm-hf-knybtcuw diffuse disc bulging and moderate hypertrophic facet changes, which results in moderate to marked neural foraminal narrowing. Procedure Note CONVERSION, GENERIC - 11/13/2022 PERFORMED AT [facility] LOCATION:[facility] CLINICAL HISTORY: Low back pain extending into the right lower extremity. COMPARISON: 05/01/2022 TECHNIQUE: Multiplanar MR imaging of the lumbar spine was performed. FINDINGS: The spine is visualized from the Z06-S8-E1 levels on the sagittal sequences, assuming a [...] narrowing. At the L5-S1 level, there is etzy-vp-pblgmxzy diffuse disc bulging and moderate hypertrophic facet changes, which results in moderate to marked neural foraminal narrowing. 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 Report reported and signed by James Vizcaino on 10/19/2022 1406 Disposition: Please schedule with Laila. [facility] 02-12-2023 History of Present illness Narrative Per Triage: Lawson Vela is a 68 year old male that requests evaluation of lumbar spine. Per review, they have symptoms of LBP into left leg pain. Positive for numbness, difficulty walking and weakness. CMT: PT Hydrocodone director of medicare Studies (Reports unless indicated) MRI Lumbar: Narrative PERFORMED AT [facility] LOCATION:[facility] CLINICAL HISTORY: Low back pain extending into the right lower extremity. COMPARISON: 05/01/2022 TECHNIQUE: Multiplanar MR imaging of the lumbar spine was performed. FINDINGS: The spine is visualized from the Y95-I8-C4 levels on the sagittal sequences, assuming a [...] narrowing. At the L5-S1 level, there is dsop-ln-ejmfqmzc diffuse disc bulging and moderate hypertrophic facet changes, which results in moderate to marked neural foraminal narrowing. Procedure Note CONVERSION, GENERIC - 11/13/2022 PERFORMED AT [facility] LOCATION:[facility] CLINICAL HISTORY: Low back pain extending into the right lower extremity. COMPARISON: 05/01/2022 TECHNIQUE: Multiplanar MR imaging of the lumbar spine was performed. FINDINGS: The spine is visualized from the W73-C6-H1 levels on the sagittal sequences, assuming a [...] narrowing. At the L5-S1 level, there is wajs-oo-bduqoval diffuse disc bulging and moderate hypertrophic facet changes, which results in moderate to marked neural foraminal narrowing. 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 Report reported and signed by James Vizcaino on 10/19/2022 1406 Disposition: Please schedule with Laila. Patient name: Lawson Vela Are you being referred by a Center for Spine Health Provider or Pain Management Provider at [facility]? No If answer is YES please schedule [...] the facility where the MRI/CT/myelogram was completed: [facility] Imaging Address: [address] [place] [address] [place] [address] [facility] Address: [address] [id number] MRI/CT/myelogram viewable in Epic: No If not, please provide [phone] to fax in imaging reports for review. [...] physical therapy was completed PT Injections [facility] Address: [address] [place] [address] Have you tried any other kinds of [...] where the surgery was completed: Additional Comments [phone] (Home Phone) documented in this encounter [facility] 01-28-2023 Note HNO ID: [id number] Author: Mookie Lee Service: ? Author Type: ? Type: Progress Notes Filed: 02/12/2023 12:58 PM Note Text: Patient name: Lawson Vela Are you being referred by a [place] for Spine Health Provider or Pain Management Provider at [facility]? No If answer is YES please schedule [...] the facility where the MRI/CT/myelogram was completed: [facility] Imaging Address: [address] [place] [address] [facility] Address: [address] [id number] MRI/CT/myelogram viewable in Epic: No If not, please provide [phone] to fax in imaging reports for review. [...] physical therapy was completed PT Injections [facility] Address: [address] [place] [address] Have you tried any other kinds of [...] where the surgery was completed: Additional Comments [phone] (Home Phone) [facility] 12-17-2022 Evaluation note Encounter Date Diagnosis [...] prednisone taper. Advised not to take any dxlj-diz-pgftgdt ibuprofen while taking prednisone. OARRS reviewed . [...] spine, education on diet, decrease sugar intake. [employer] Other 05-16-2023 NoteCONSULTATION CONSULTATION DATE: 11/10/2022 TO: [...] our patients to inform us about any lpmq-oyw-eecczhx medications or herbal remedies/nutritional supplements/alternative remedies. 2. [...] treatment options with their primary care provider.[facility] [id number] Note CONSULTATION CONSULTATION DATE: 10/08/2022 TO: Javad [...] our patients to inform us about any zfco-clz-dqyqvsa medications or herbal remedies/nutritional supplements/alternative remedies. 2. [...] treatment options with their primary care provider.[facility] [id number] Note CONSULTATION CONSULTATION DATE: 09/10/2022 HISTORY: This [...] a tightness in that region. Medications include [place] 5/325 daily, tizanidine 4 mg q.h.s., Mobic [...] in three months' time unless otherwise indicated.[facility] [id number] NoteCONSULTATION PROCEDURE DATE: 09/10/2022 PREOPERATIVE DIAGNOSIS: Bilateral [...] pattern, and patient tolerated the procedure well.[facility] [id number] Note CONSULTATION CONSULTATION DATE: 07/23/2022 HISTORY OF [...] current medications include Mobic 50 mg daily, [place] 5/325 per his PCP daily p.r.n. and [...] up in the office after the procedure.[facility] [id number] NoteCONSULTATION CONSULTATION DATE: 06/25/2022 HISTORY OF PRESENT [...] with a vitamin regimen and he takes [place] 5/325 daily p.r.n., and Mobic 15 mg [...] following his procedure here in the office.[facility] [id number] Hospital Discharge instructions Patient Education 06/01/2022 08:22:09 [...] urethra. Follow these instructions at home: Take jrlz-oqy-ttfmmsw and prescription medicines only as told by [...] 06/14/2006 Document Revised: 05/09/2019 Document Reviewed: 07/19/2017 Mobile Experience Patient Education 2019 [employer]. Follow Up Care 02/16/2022 11:28:21 With:PAMELA BAER, Mac Stephenson, FEROZ Address: [facility] [address] [place] [address]- When: Unknown [facility]22 NoteCONSULTATION CONSULTATION DATE: 05/19/2022 CHIEF [...] The patient currently takes Mobic 15 mg, Burn[place] 5/325 on a p.r.n. basis as prescribed [...] epidural had been performed. CC: Javad Donato M.D.[facility]11-01-2022 NoteCONSULTATION CONSULTATION DATE: 04/28/2022 CHIEF [...] patient takes two Aleve. He also takes Burnt [place] 5/[address] Donato has prescribed for [...] would like to proceed. CC: Javad Donato M.D.[facility]08-22-2022 Hospital Discharge instructions Patient Education [...] urethra. Follow these instructions at home: Take shvn-twd-kuxzzjq and prescription medicines only as told by [...] 06/14/2006 Document Revised: 05/09/2019 Document Reviewed: 07/19/2017 Mobile Experience Patient Education 2020 [employer]. 02/16/2022 11:24:04 Calorie Counting for Weight [...] 06/14/2006 Document Revised: 03/03/2019 Document Reviewed: 05/14/2017 Mobile Experience Patient Education [employer]. Follow Up Care 08/18/2021 12:09:57 With:Mac SANTIAGO MD, URL Address: [address] [place], [place] [id number] Business (1) When:Within 6 Month(s) [facility] evaluation + Plan note Future Appointments Appointment Date:06/01/2022 10:45:00 AM Scheduled Provider:Mac SANTIAGO MD Location:[facility] Appointment Type:URO Office Visit [facility] evaluation + Plan note Future Appointments Appointment Date:11/30/2022 08:45:00 AM Scheduled Provider:Mac SANTIAGO MD Location:[facility] Appointment Type:URO Office Visit [facility] evaluation + Plan note Future Appointments Appointment Date:02/05/2025 10:45:00 AM Scheduled Provider:Mac SANTIAGO MD Location:[facility] Appointment Type:URO Office Visit [facility] Evaluation + Plan note Future Appointments Appointment Date:02/08/2026 08:15:00 AM Scheduled Provider:Mac SANTIAGO MD Location:[facility] Appointment Type:URO Office Visit [facility] evaluation noteNo assessment information available [facility] Work Phone: Evaluation noteNort [employer] Other evaluation note* Diagnosis Spinal stenosis, lumbar region with neurogenic claudication- Primary [facility] Spinal stenosis, lumbar region with neurogenic claudication- Primary Bilateral hip joint arthritis [facility] Diagnosis Right hip pain- Primary [...] region and thigh documented in this encounter [facility] HealthcareEvaluation note* Diagnosis Acute pharyngitis, unspecified etiology- Primary [facility] Diagnosis Routine general medical examination at health care facility- Primary Routine general medical examination at a health care facility ACP (advance care planning) Other specified counseling Benign essential hypertension ([facility]/HCC) Essential hypertension, benign IGT (impaired glucose tolerance) Impaired glucose tolerance test Atherosclerosis of aorta ([facility]) Atherosclerosis of aorta Class 2 severe obesity with serious comorbidity and body mass index (BMI) of 37.0 to 37.9 in adult, unspecified obesity type ([facility]) Screening for prostate cancer Special screening for malignant neoplasm of prostate Flu vaccine need Herniated lumbar disc without myelopathy Claudication ([facility]) Unspecified peripheral vascular disease documented in this encounter [facility] HealthcareEvaluation note* Diagnosis Left hip pain- Primary Pain in joint, pelvic region and thigh S/P total left hip arthroplasty documented in this encounter [facility] HealthcareEvaluation note* Diagnosis Left hip pain- Primary Pain in joint, pelvic region and thigh S/P total left hip arthroplasty documented in this encounter [facility] HealthcareEvaluation note* Diagnosis Left hip pain- Primary Pain in joint, pelvic region and thigh S/P total left hip arthroplasty documented in this encounter [facility] HealthcareEvaluation note* Diagnosis S/P total left hip [...] left hip arthroplasty documented in this encounter [facility] HealthcareEvaluation note* Diagnosis Acute non-recurrent frontal sinusitis- Primary Herniated lumbar disc without myelopathy documented in this encounter [facility]* Diagnosis Primary osteoarthritis of right hip- Primary [facility] Diagnosis Preop examination- Primary Unspecified pre-operative examination Hypertension, unspecified type Preop examination Unspecified pre-operative examination Hypertension, unspecified type [facility] Diagnosis Herniated lumbar disc [...] region and thigh documented in this encounter [facility]* Diagnosis S/P total left hip arthroplasty- Primary Left hip pain Pain in joint, pelvic region and thigh documented in this encounter [facility]* Diagnosis Herniated lumbar disc without myelopathy- Primary Benign essential hypertension (CMS/HCC) Essential hypertension, benign S/P total left hip arthroplasty Tinea pedis of both feet Skin irritation Unspecified disorder of skin and subcutaneous tissue Open wound of left lower leg, initial encounter Class 2 severe obesity due to excess calories with serious comorbidity and body mass index (BMI) of 38.0 to 38.9 in adult (CMS/HCC) Umbilical hernia without obstruction and without gangrene Status post right hip replacement [facility] - Reported* Type Description Date Medical History appendicitis Medical History Arthritis Medical History Hypertension Medical History obesity Medical History pneumonia Medical History prostate cancer Surgical History appendectomy Surgical History carpal tunnel release 2017 Hospitalization History see surg Hx [facility] Other History general [facility] - [facility] Other Hospital course Narrative No data available for this section [facility] progress note No data available for this section [facility] Reason for referral (narrative)* Diagnostic Procedure Only (Routine) - Pending Review Specialty Diagnoses / Procedures Referred By Keyac t Referred To Contact XR IMAGING Diagnoses Bilateral hip joint arthritis Procedures XR HIP BILATERAL 5V PEL/AP/LAT EACH HIP RADEX HIPS BILATERAL WITH PELVIS MINIMUM 5 VIEWS Laila Lewis PA-C [address] [id number] [facility] [place] [address] Referral ID Status Reason Start Date Expiration Date Visits Requested Visits Authorized [id number] Pending Review Auto-Generat ed Referral 3 05/12/2024 1 1 * Consult, Test, Treat (Routine) - Pending Review Specialty Diagnoses / Procedures Referred By Rayray t Referred To Contact Orthopedics Diagnoses Bilateral hip joint arthritis Procedures CONSULT TO ORTHOPAEDICS OFFICE/OUTPATIENT [facility] 60-74 MINUTES Laila Lewis PA-C [address] [place] [address] Referral ID Status Reason Start Date Expiration Date Visits Requested Visits Authorized [id number] Pending Review PCP Requested Referral 3 04/12/2024 1 1 [facility] for visit Narrativeself referral- low back pain L4-L5 [employer] Other Reason for visit Narrative* Rehabilitation - Outpatient (Routine) - Authorized Specialty Diagnoses / Procedures Referred By Contac t Referred To Contact Physical Therapy Diagnoses S/P total left hip arthroplasty Procedures DC OFFICE/OUTPATIENT [facility] Jose Hernández, DELIVERY CONSULTANT [address] [place] [address] Phone: tel: fax: Nagi Plata, PT [address] [place] [address] Phone: tel: fax: Referral ID Status Reason Start Date Expiration Date Visits Requested Visits Authorized [id number] Authorized Consult and Treat 06/12/2024 06/27/2024 10 10 [facility] Narrative* Rehabilitation - Outpatient (Routine) - Authorized Specialty Diagnoses / Procedures Referred By Contac t Referred To Contact Physical Therapy Diagnoses S/P total left hip arthroplasty Procedures DC OFFICE/OUTPATIENT NEW HIGH MDM 60 MINUTES Jose Hernández, YISEL [address] [place] [address] Phone: tel: fax: Nagi Plata, PT [address] [place] [address] Phone: tel: fax: Referral ID Status Reason Start Date Expiration Date Visits Requested Visits Authorized [id number] Authorized Consult and Treat 06/29/2024 06/27/2025 20 20 [facility] Narrative* Rehabilitation - Outpatient (Routine) - Authorized Specialty Diagnoses / Procedures Referred By Contac t Referred To Contact Physical Therapy Diagnoses S/P total left hip arthroplasty Procedures DC OFFICE/OUTPATIENT NEW HIGH MDM 60 MINUTES Jose Hernández, YISEL [address] [place] [address] Phone: tel: fax: Nagi Plata, PT [address] [place] [address] Phone: tel: fax: Referral ID Status Reason Start Date Expiration Date Visits Requested Visits Authorized [id number] Authorized Consult and Treat 06/29/2024 06/27/2025 20 [...] for this section No Family History Records Found Advance Directives No [...] Hypertension, unspecified type Procedures ECG 12 lead Rossy, Charissa Rsoe, DO [address] [place] [address] Referral ID Status Reason Start Date Expiration Date V isits Requested Visits Authorized [id number] Pending Review 03/06/2024 03/06/2025 1 1 Specialty Diagnoses / Procedures Referred By Contac t Referred To Contact Procedures Remove dressing (specify when) Nagi Miner, CRIMINAL DEFENSE ATTORNEY-LEATHER SCRAPER [address], [facility] [address] [place] [address] Referral ID Status Reason Start Date Expiration Date V isits Requested Visits Authorized [id number] Pending Review 07/07/2023 07/06/2024 1 1 Specialty Diagnoses / Procedures Referred By Contac t Referred To Contact Procedures Adult diet Nagi Miner, CRIMINAL DEFENSE ATTORNEY-LEATHER SCRAPER [address], [facility] [address] [place] [address] Referral ID Status Reason Start Date Expiration Date V isits Requested Visits Authorized [id number] Pending Review 07/07/2023 07/06/2024 1 1 Additional Source Comments Care Team (unrecognized sect ion and content) Team Status: Active Member Role Status Dates Javad Donato II MD Primary Care Provider Active Team Status: Inactive Member Role Status Dates Javad Donato II MD Primary Care Provider Active AURELIANO ReyesC Attending Provider Active Radius Corner Machine Operator Relationship Specialty Start Date End Date Javad Donato MD [address] [place] [address] PCP - ACO Reach 11/19/22 Javad Donato MD [address] [place] [address] PCP - General Internal Medicine 01/05/23 Radius Corner Machine Operator Relationship Specialty Start Date End Date Javad Donato MD [address] [place] [address] PCP - ACO Reach 11/19/22 Javad Donato MD [address] [place] [address] PCP - General Internal Medicine 01/05/23 Radius Corner Machine Operator Relationship Specialty Start Date End Date Javad Donato MD [address] [place] [address] PCP - ACO Reach 11/19/22 Javad Donato MD [address] [place] [address] PCP - General Internal Medicine 01/05/23 Radius Corner Machine Operator Relationship Specialty Start Date End Date Javad Donato MD [address] [place] [address] PCP - ACO Reach 11/19/22 Javad Donato MD [address] [place] [address] PCP - General Internal Medicine 01/05/23 Radius Corner Machine Operator Relationship Specialty Start Date End Date Javad Donato MD [address] [place] [address] PCP - ACO Reach 11/19/22 Javad Donato MD [address] [place] [address] PCP - General Internal Medicine 01/05/23 Radius Corner Machine Operator Relationship Specialty Start Date End Date Javad Donato MD [address] [place] [address] PCP - ACO Reach 11/19/22 Javad Donato MD [address] [place] [address] PCP - General Internal Medicine 01/05/23 Radius Corner Machine Operator Relationship Specialty Start Date End Date Javad Donato MD [address] [place] [address] PCP - ACO Reach 11/19/22 Javad Donato MD [address] [place] [address] PCP - General Internal Medicine 01/05/23 Radius Corner Machine Operator Relationship Specialty Start Date End Date Javad Donato MD [address] [place] [address] PCP - ACO Reach 11/19/22 Javad Donato MD [address] [place] [address] PCP - General Internal Medicine 01/05/23 Radius Corner Machine Operator Relationship Specialty Start Date End Date Javad Donato MD [address] [place] [address] PCP - ACO Reach 11/19/22 Javad Donato MD [address] [place] [address] PCP - General Internal Medicine 01/05/23 Radius Corner Machine Operator Relationship Specialty Start Date End Date Javad Donato MD [address] [place] [address] PCP - ACO Reach 11/19/22 Javad Donato MD [address] [place] [address] PCP - General Internal Medicine 01/05/23 Radius Corner Machine Operator Relationship Specialty Start Date End Date Javad Donato MD [address] [place] [address] PCP - ACO Reach 11/19/22 Javad Donato MD [address] [place] [address] PCP - General Internal Medicine 01/05/23 Radius Corner Machine Operator Relationship Specialty Start Date End Date Javad Donato MD [address] [place] [address] PCP - ACO Reach 11/19/22 Javad Donato MD [address] [place] [address] PCP - General Internal Medicine 01/05/23 Radius Corner Machine Operator Relationship Specialty Start Date End Date Javad Donato MD [address] [place] [address] PCP - ACO Reach 11/19/22 Javad Donato MD [address] [place] [address] PCP - General Internal Medicine 01/05/23 Radius Corner Machine Operator Relationship Specialty Start Date End Date Javad Donato MD [address] [place] [address] PCP - ACO Reach 11/19/22 Javad Donato MD [address] [place] [address] PCP - General Internal Medicine 01/05/23Wednesday, Michelle, NEON LIGHT INSTALLER [address] [place] [address] Licensed Practical Nurse Family Medicine 05/08/24 Radius Corner Machine Operator Relationship Specialty Start Date End Date Javad Donato MD [address] [place] [address] PCP - ACO Reach 11/19/22 Javad Donato MD [address] [place] [address] PCP - General Internal Medicine 01/05/23Wednesday, Michelle, NEON LIGHT INSTALLER [address] [place] [address] Licensed Practical Nurse Family Medicine 05/08/24 Radius Corner Machine Operator Relationship Specialty Start Date End Date Javad Donato MD [address] [place] [address] PCP - ACO Reach 11/19/22 Javad Donato MD [address] [place] [address] PCP - General Internal Medicine 01/05/23Wednesday, Michelle, NEON LIGHT INSTALLER [address] [place] [address] Licensed Practical Nurse Family Medicine 05/08/24 05/16/24 Radius Corner Machine Operator Relationship Specialty Start Date End Date Javad Donato MD [address] [place] [address] PCP - ACO Reach 11/19/22 Javad Donato MD [address] [place] [address] PCP - General Internal Medicine 01/05/23Wednesday, GLENDA MartinezN [address] [place] [address] Licensed Practical Nurse Family Medicine 05/08/24 05/16/24 Radius Corner Machine Operator Relationship Specialty Start Date End Date Javad Donato MD [address] [place] [address] PCP - ACO Reach 11/19/22 Javad Donato MD [address] [place] [address] PCP - General Internal Medicine 01/05/23Wednesday, GLENDA MartinezN [address] [place] [address] Licensed Practical Nurse Family Medicine 05/08/24 05/16/24 Radius Corner Machine Operator Relationship Specialty Start Date End Date Javad Donato MD [address] [place] [address] PCP - ACO Reach 11/19/22 Javad Donato MD [address] [place] [address] PCP - General Internal Medicine 01/05/23 Radius Corner Machine Operator Relationship Specialty Start Date End Date Javad Donato MD [address] [place] [address] PCP - ACO Reach 11/19/22 Javad Donato MD [address] [place] [address] PCP - General Internal Medicine 01/05/23 Radius Corner Machine Operator Relationship Specialty Start Date End Date Javad Donato MD [address] [place] [address] PCP - ACO Reach 11/19/22 Javad Donato MD [address] [place] [address] PCP - General Internal Medicine 01/05/23 Radius Corner Machine Operator Relationship Specialty Start Date End Date Javad Donato MD [address] [place] [address] PCP - ACO Reach 11/19/22 Javad Donato MD [address] [place] [address] PCP - General Internal Medicine 01/05/23 Radius Corner Machine Operator Relationship Specialty Start Date End Date Javad Donato MD [address] [place] [address] PCP - ACO Reach 11/19/22 Javad Donato MD [address] [place] [address] PCP - General Internal Medicine 01/05/23 Radius Corner Machine Operator Relationship Specialty Start Date End Date Javad Donato MD [address] [place] [address] PCP - ACO Reach 11/19/22 Javad Donato MD [address] [place] [address] PCP - General Internal Medicine 01/05/23 Radius Corner Machine Operator Relationship Specialty Start Date End Date Javad Donato MD [address] [place] [address] PCP - ACO Reach 11/19/22 Javad Donato MD [address] [place] [address] PCP - General Internal Medicine 01/05/23 Radius Corner Machine Operator Relationship Specialty Start Date End Date Javad Donato MD [address] [place] [address] PCP - ACO Reach 11/19/22 Javad Donato MD [address] [place] [address] PCP - General Internal Medicine 01/05/23 Radius Corner Machine Operator Relationship Specialty Start Date End Date Javad Donato MD [address] [place] [address] PCP - ACO Reach 11/19/22 Javad Donato MD [address] [place] [address] PCP - General Internal Medicine 01/05/23 Radius Corner Machine Operator Relationship Specialty Start Date End Date Javad Donato MD [address] [place] [address] PCP - ACO Reach 11/19/22 Javad Donato MD [address] [place] [address] PCP - General Internal Medicine 01/05/23 Radius Corner Machine Operator Relationship Specialty Start Date End Date Javad Donato MD [address] [place] [address] PCP - ACO Reach 11/19/22 Javad Donato MD [address] [place] [address] PCP - General Internal Medicine 01/05/23 Radius Corner Machine Operator Relationship Specialty Start Date End Date Javad Donato MD [address] [place] [address] PCP - General Internal Medicine 06/15/17 Radius Corner Machine Operator Relationship Specialty Start Date End Date Javad Donato MD [address] [place] [address] PCP - General Internal Medicine 06/15/17 Radius Corner Machine Operator Relationship Specialty Start Date End Date Javad Donato MD [address] [place] [address] PCP - ACO Reach 11/19/22 Javad Donato MD [address] [place] [address] PCP - General Internal Medicine 01/05/23 Radius Corner Machine Operator Relationship Specialty Start Date End Date Javad Donato MD [address] [place] [address] PCP - ACO Reach 11/19/22 Javad Donato MD [address] [place] [address] PCP - General Internal Medicine 01/05/23 Radius Corner Machine Operator Relationship Specialty Start Date End Date Javad Donato MD [address] [facility] [address] [place] [address] PCP - ACO Reach 11/19/22 Javad Donato MD [address] [facility] [address] [place] [address] PCP - General Internal Medicine 01/05/23 (unrecognized sect ion and content) No Status Records FoundNo Status Records FoundNo Status Records FoundNo Status Records FoundNo Status Records FoundNo Status Records FoundNo Status Records FoundNo Status Records FoundNo Status Records FoundNo Status Records Found INFORMATION SOURCE (unrecogn ized section and content) DATE CREATED AUTHOR 05/02/2022 [facility] dical Specialist DATE CREATED AUTHOR AUTHOR'S ORGANIZ ATION 12/04/2022 [facility] DATE CREATED AUTHOR AUTHOR'S ORGANIZ ATION 01/13/2023 [facility] DATE CREATED AUTHOR AUTHOR'S ORGANIZ ATION 02/13/2023 [facility] DATE CREATED AUTHOR AUTHOR'S ORGANIZ ATION 04/17/2023 [facility] DATE CREATED AUTHOR AUTHOR'S ORGANIZ ATION 05/05/2024 [facility] DATE CREATED AUTHOR AUTHOR'S ORGANIZ ATION 06/18/2024 [facility] DATE CREATED AUTHOR AUTHOR'S ORGANIZ ATION 11/30/2024 [facility] dical Specialists [facility] DATE CREATED AUTHOR AUTHOR'S ORGANIZ ATION 12/04/2024 [facility] DATE CREATED AUTHOR AUTHOR'S ORGANIZ ATION 02/06/2025 [facility] Goals (unrecognized section and content) Goals may be documented in a n alternate section Source Comments (unrecognize d section and content) In the event this informatio n is protected by the Federal Confidentiality of Alcohol and Drug Abuse Patient Records regulations: The Federal rules restrict any use of the information to criminally investigate or prosecute any alcohol or drug abuse patient.[facility] the event this information is protected by the Federal Confidentiality of Alcohol and Drug Abuse Patient Records regulations: The Federal rules restrict any use of the information to criminally investigate or prosecute any alcohol or drug abuse patient.[facility] Reason for Visit (unrecogniz ed section and content) Reason Comments New Patient Specialty Diagnoses / Procedures Referred By Contsimón t Referred To Contact Physical Therapy Diagnoses Presence of artificial hip joint, right Procedures DC OFFICE/OUTPATIENT NEW HIGH MDM 60 MINUTES Charissa Blair, DO [address] [place] [address] [address] [place] [address] Referral ID Status Reason Start Date Expiration Date Visits Requested Visits Authorized [id number] Authorized Specialty Services Required 07/08/2023 01/04/2024 30 30 Reason Comments Follow-up Reason Comments Pain Reason Onset Date Comments Med Refill 04/12/2024 Reason Comments surgical clearance Pt sched 05/03/24 for left hip replacement with Dr Blair at [facility] completed Reason Onset Date Comments Discharge 05/04/2024 Reason Comments Pain Reason Comments URI Reason Comments Medicare Annual Wellness Visit Kim barkley Med Refill Hydrocodone--pietro rodas-for back pain pt is going to [...] hip right hip degenerative joint disease Procedures DC TOTAL HIP ARTHROPLASTY REPLACEMENT TOTAL JOINT HIP Charissa Blair, DO [address] [facility] [address] [place] [address] Referral ID Status Reason Start Date Expiration Date Visits Re quested Visits Authorized [id number] 1 1 Reason Comments Hypertension Results Labs 05/2024 [facility] Med Refill Hydrocodone--kroger [place] Shoulder Pain Left shoulder pain Reason Onset Date Comments Med Refill 11/27/2024 Reason Comments Tinea Pedis Has had it off/on fo r 15 years, bilateral feet, he uses clotrimazole and betamethasone cream and it helps. Med Refill Amoxicillin (has den nick procedure in December) and has had hip replacement in past, clotrimazole-betamethazone Back Pain He is currently on H ydrocodone as needed and working well for him. Scheduled Active and Recently Administ ered Medications [...] BE BASED ON THE PRIMARY CLINICAL RECORDS. [email or web address] [facility]. provides no warranty or guarantee of the accuracy or completeness of information in this document.
--- NOTE | 2025-02-08 10:49 | PM.CN ---
Consult Note: HPI Data of Consult Patient: known to practice within the last 3 years Consult date: 02/08/25 Requesting Physician: Kath Steiner NP Primary Care Provider: JOHNATHAN LÓPEZ Consult Narrative Reason for consult: low back pain Narrative: Lawson Vela a pleasant 69 year old male presents for evaluation of chronic low back and left hip pain. longstanding hx of low back pain secondary to lumbar spondylosis, lumbar stenosis with NC, and sacroiliitis. pt has failed to benefit from > 6 weeks of PT and provider guided HEP, heat, ice, tylenol, NSAIDs. prior left L4-5 L5-S1 TFESI provided >50% improvement for 3 months, is noting increased pain with standing/walking. cc:: CC: Kath Steiner NP Review of Systems ROS Musculoskeletal Reports: back pain; Denies: extremity pain or joint pain PFSH PFS Medical History (Updated 10/25/24 @ 07:58 by Kath Steiner NP) Neuritis ?M79.2 - Neuralgia and neuritis, unspecified (ICD-10) Left carpal tunnel syndrome ?G56.02 - Carpal tunnel syndrome, left upper limb (ICD-10) Osteoarthritis ?M19.90 - Unspecified osteoarthritis, unspecified site (ICD-10) Low back pain ?M54.50 - Low back pain, unspecified (ICD-10) Obesity ?E66.9 - Obesity, unspecified (ICD-10) Enlarged prostate ?N40.0 - Benign prostatic hyperplasia without lower urinary tract symptoms (ICD-10) Former smoker ?Z87.891 - Personal history of nicotine dependence (ICD-10) Hypertension ?I10 - Essential (primary) hypertension (ICD-10) Surgical History H/O carpal tunnel repair ?Z98.890 - Other specified postprocedural states (ICD-10) H/O total hip arthroplasty ?Z96.649 - Presence of unspecified artificial hip joint (ICD-10) Hx of appendectomy ?Z90.49 - Acquired absence of other specified parts of digestive tract (ICD-10) Social History Smoking status: Former smoker Meds Home Medications and Allergies Home Medications ?Medication ?Instructions ?Recorded ?Confirmed ?Type ascorbic acid (vitamin C) 500 mg 500 mg PO DAILY 12/10/22 11/27/24 History tablet (C-500) bee pollen 550 mg capsule mg PO .QD 12/10/22 History carvedilol 6.25 mg tablet 6.25 mg PO BID 12/10/22 11/27/24 History cholecalciferol (vitamin D3) 10 10 mcg PO DAILY 12/10/22 11/27/24 History mcg (400 unit) capsule (Vitamin D3) finasteride 5 mg tablet 5 mg PO .QD 12/10/22 11/27/24 History hydrocodone 5 mg-acetaminophen 325 1 tab PO QID PRN pain 12/10/22 11/27/24 History mg tablet mecobalamin (vitamin B12) 1,000 1,000 mcg PO DAILY 12/10/22 11/27/24 History mcg chewable tablet (B12 Active) meloxicam 15 mg tablet 15 mg PO .QD 12/10/22 11/27/24 History multivitamin 1 tab PO DAILY 12/10/22 11/27/24 History sildenafil 100 mg tablet (Viagra) 100 mg PO DAILY PRN sexual activity 12/10/22 11/27/24 History solifenacin 10 mg tablet 10 mg PO DAILY 12/10/22 11/27/24 History tamsulosin 0.4 mg capsule 0.4 mg PO Q24H 12/10/22 11/27/24 History tizanidine 4 mg capsule 4 mg PO .HS PRN muscle spasticity 12/10/22 11/27/24 History vitamin B complex (Complex B-100 1 tab PO DAILY 12/10/22 11/27/24 History tablet,extended release) zinc 50 mg tablet 50 mg PO DAILY 12/10/22 11/27/24 History Allergies Allergy/AdvReac Type Severity Reaction Status Date / Time No Known Drug Allergies Allergy Verified 11/27/24 10:58 Exam Constitutional Documenting provider has reviewed patient's vital signs: yes Common normals: no apparent distress, oriented x3, healthy appearing, alert and well nourished General appearance: cooperative [facility] Common normals: normocephalic, hearing grossly normal bilaterally and moist oral mucous membranes Head and scalp: normocephalic Eye Common normals: PERRL Pupil: PERRL Neck & C-Spine Common normals: full ROM General: normal visual inspection Chest Common normals: inspection of chest normal Respiratory Common normals: normal respiratory effort, no retractions and no use of accessory muscles Back & Pelvis Lumbar spine/lower back: pain with ROM, lumbar spinal tenderness and straight leg raise positive left; ROM not limited Sacroiliac joints: SI joint(s) abnormal Other: mildly positive left sayra(patricks), gaenslens, thigh thrust, compression test strength 4/5 in LLE and 5/5 in RLE decreased sensation left L4,5,S1 Extremity Common normals: normal to inspection and full ROM Neuro Common normals: oriented x3 Sensorium/orientation: alert Psych Common normals: mental status grossly normal, thought process normal, cooperative, affect normal, speech normal and activity/motor behavior normal Speech: normal speech Thought process: normal thought process Results Additional Findings Additional findings: If on a controlled substance or opioids, I have checked an [place] report on this patient and there are no aberrancies noted in the prescribing history.??If on a controlled substance or opioid a drug screen was completed and reviewed within the last year, and if there has not been a drug screen completed we ordered one today to monitor higher risk, state monitored pain medication use. As part of providing excellent, safe, comprehensive care, the following was completed at our patient's visit: 1. A medication reconciliation and review to ensure accurate knowledge of current/active medications, including asking our patients to inform us about any [id number] medications or herbal remedies/nutritional supplements/alternative remedies. 2. A review to specifically ensure our patients have had annual screening for screening for depression, screening for tobacco use, and screening for unhealthy alcohol use. For concerning screenings had a discussion with the patient, provided patient education, and recommended follow-up with primary care provider when appropriate. If patient noted with a risk of falling, they received education on strength, gait, and balance training to prevent future risk of falling. Portions of this note may have been carried over from the previous visit and updated as appropriate. Please note this office utilizes paper charting in addition to the electronic medical record. A list of current medications, vitals, and PMH is available there as the clinical staff outside of myself do not have access to [employer] charting during the clinic day operations. As part of providing quality comprehensive care the current medications, vitals, and PMH were reviewed in the paper chart. Assessment and Plan Assessment and Plan (1) Lumbar stenosis with neurogenic claudication: Assessment and Plan: 11/06/24 left L4-5 L5-S1 TFESI >50% improvement for 3 months (2) Sacroiliitis: Assessment and Plan: 11/27/24 left SIJ injection >80% improvement ongoing (3) Lumbar spondylosis: Plan repeat left L4-5 L5-S1 TFESI under fluoroscopy consider working up facet mediated low back pain in the future continue current medications, risks vs benefits reviewed continue HEP as tolerated f/u 2 weeks after injection
== END 2025-02-08 10:26 | disposition home or self-care (01) ==
LOC: PM 10:25
PROVIDERS: PCP Internal Medicine; Visit Provider Nurse Practitioner
DX: M48.062 Spinal stenosis, lumbar region with neurogenic claudication (principal); M46.1 Sacroiliitis, not elsewhere classified; M47.816 Spondylosis without myelopathy or radiculopathy, lumbar region
CPT/HCPCS: G0463

== ENCOUNTER 2025-02-19 08:01 | Day surgery (SDC) | payer MEDICARE, OTHER, SELFPAY ==
--- OUTSIDE RECORDS SUMMARY | 2025-02-19 08:04 | XMS_ITS | Encounter Summary ---
Author Organization [facility] Address [address] [place] [address] Care Team Providers Care Bond Trader Name Role Phone Javad Donato MD Unavailable [phone] Javad Donato MD Primary Care Provider Wednesday, Michelle ARGUETA Unavailable [phone] Encounter Details Date Type Department Care Team (Late st Contact Info) Description 03/02/2023 Abstract [facility] [place] [address] [facility] [address] [place] [address] Javad Donato MD [address] [facility] [address] [place] [address] Social History Tobacco Use Types Packs/Day Years [...] [place] [address] [place] [address] [place] [address] Javad Donato MD [address] [place] 110 [place] [address] 04/30/2025 8:00 AM EST Office Visit [facility] [address] SHAHRZADEASTERN [place] [address] Jose Robins, MANAGER DOMESTIC [address] [place] [address] documented as of this encounter Visit Diagnoses Not on filedocumented in this encounter Care Teams Bond Trader Relationship Specialty Start Date End Date Javad Donato MD [address] [place] [address] [place] [address] PCP - ACO Reach 11/19/22 Javad Donato MD [address] [place] [address] [place] [address] PCP - General Internal Medicine 01/05/23Wednesday, ELLIE Martinez [address] [place] [address] Licensed Practical Nurse Family Medicine 05/08/24 05/16/24 documented as of this encounter
--- OUTSIDE RECORDS SUMMARY | 2025-02-19 08:04 | XMS_ITS | Encounter Summary ---
Author Organization [facility] Address [address] [facility] [place] [address] Care Team Providers Care Ctrs Name Role Phone Javad Donato MD Unavailable [phone] Javad Donato MD Primary Care Provider Wednesday, Michelle ARGUETA Unavailable [phone] Encounter Details Date Type Department Care Team (Late st Contact Info) Description 02/03/2023 Abstract [facility] [place] [address] [facility] 110 [place] [address] Javad Donato MD [address] [facility] 110 [place] [address] Social History Tobacco Use Types Packs/Day Years [...] [place] [address] [place] [address] [place] [address] Javad Donato MD [address] [place] [address] [place] [address] 04/30/2025 8:00 AM EST Office Visit [facility] [address] SHAHRZADSHRINERS [place] [address] Jose Robins, DRYWALL FINISHING FOREMAN [address] [place] [address] documented as of this encounter Visit Diagnoses Not on filedocumented in this encounter Care Teams Ctrs Relationship Specialty Start Date End Date Javad Donato MD [address] [place] [address] [place] [address] PCP - ACO Reach 11/19/22 Javad Donato MD [address] [place] [address] [place] [address] PCP - General Internal Medicine 01/05/23Wednesday, ELLIE Martinez [address] [place] [address] Licensed Practical Nurse Family Medicine 05/08/24 05/16/24 documented as of this encounter
--- OUTSIDE RECORDS SUMMARY | 2025-02-19 08:04 | XMS_ITS | Encounter Summary ---
Author Organization [facility] Address [address] [place] [address] Care Team Providers Care Stamp Machine Servicer Name Role Phone Javad Donato MD Unavailable [phone] Javad Donato MD Primary Care Provider Wednesday, Michelle ARGUETA Unavailable [phone] Encounter Details Date Type Department Care Team (Late st Contact Info) Description 05/17/2023 Abstract [facility] [place] [facility] 112 [facility] 110 [place] [address] Javad Donato MD 112 [facility] 110 [place], [place] [address] Social History Tobacco Use Types Packs/Day Years [...] How often do you attend chur or jew services? 1 to 4 times per year 05/10/2023 Do you belong to any clubs o r organizations such as congregational groups, unions, fraternal or athletic groups, or [...] Patient Health Questionnaire-2 Score 0 05/17/2023 [facility] of Occupat ional Health [...] [address] [place] [address] [place] [address] Javad Donato MD [address] [place] [address] [place] [address] 04/30/2025 8:00 AM EST Office Visit [facility] [address] [place] [address] Jose Robins, MANAGER STRATEGIC ALLIANCES [address] [facility] [place] [address] documented as of this encounter Visit Diagnoses Not on filedocumented in this encounter Care Teams Stamp Machine Servicer Relationship Specialty Start Date End Date Javad Donato MD [address] [place] [address] [place] [address] PCP - ACO Reach 11/19/22 Javad Donato MD [address] [place] [address] [place] [address] PCP - General Internal Medicine 01/05/23WednesdayMichelle LPN [address] [place] [address] Licensed Practical Nurse Family Medicine 05/08/24 05/16/24 documented as of this encounter
--- OUTSIDE RECORDS SUMMARY | 2025-02-19 08:04 | XMS_ITS | Encounter Summary ---
Author Organization [facility] Address [address] [place] [address] Care Team Providers Care Overhead Cleaner Maintainer Name Role Phone Javad Donato MD Unavailable [phone] Javad Donato MD Primary Care Provider Wednesday, Michelle ARGUETA Unavailable [phone] Encounter Details Date Type Department Care Team (Late st Contact Info) Description 01/11/2023 Abstract [facility] [place] [address] [facility] 110 [place] [address] Javad Donato MD [address] [facility] 110 [place] [address] Social History Tobacco Use Types Packs/Day Years [...] [address] [place] [address] [place] [address] Javad Donato MD [address] [place] [address] [place] [address] 04/30/2025 8:00 AM EST Office Visit [facility] [place] [facility] [address] [facility] [place] [address] Jose Robins, CLIN ASST [address] [place] [address] documented as of this encounter Visit Diagnoses Not on filedocumented in this encounter Care Teams Overhead Cleaner Maintainer Relationship Specialty Start Date End Date Javad Donato MD [address] [place] [address] [place] [address] PCP - ACO Reach 11/19/22 Javad Donato MD [address] [place] [address] [place] [address] PCP - General Internal Medicine 01/05/23Wednesday, ELLIE Martinez [address] [place] [address] Licensed Practical Nurse Family Medicine 05/08/24 05/16/24 documented as of this encounter
--- OUTSIDE RECORDS SUMMARY | 2025-02-19 08:04 | XMS_ITS | Encounter Summary ---
Author Organization [facility] Address [address] [place] [address] Care Team Providers Care Sales Activity Manager Name Role Phone Javad Donato MD Unavailable [phone] Javad Donato MD Primary Care Provider [phone] Wednesday, Michelle ARGUETA Unavailable [phone] Encounter Details Date Type Department Care Team (Late st Contact Info) Description 06/29/2023 Orders Only [facility] [place] [facility] [address] [place] [address] [place] [address] A, Unknown Practice [address] [place] [address] Social History Tobacco Use Types [...] How often do you attend chur or restoration services? 1 to 4 times per year [...] Recorded Patient Health Questionnaire-2 Score 0 05/17/2023 [facility] of Occupat ional Health - Occupational [...] AM EDT Office [facility] [place] [facility] [address] [facility] 110 [place] [address] Javad Donato MD [address] [place] [address] [place] [address] 04/30/2025 8:00 AM EST Office Visit [facility] Michele [facility]KL[facility] [place] [address] Jose Robins, CRAB BUTCHER [address] [place] [address] documented as of this encounter Procedures Procedure [...] on filedocumented in this encounter Care Teams Sales Activity Manager Relationship Specialty Start Date End Date Javad Donato MD [address] [place] [address] [place] [address] PCP - ACO Reach 11/19/22 Javad Donato MD [address] [place] [address] [place] [address] PCP - General Internal Medicine 01/05/23Wednesday, ELLIE Martinez [address] [place] [address] Licensed Practical Nurse Family Medicine 05/08/24 05/16/24 documented as of this encounter
--- OUTSIDE RECORDS SUMMARY | 2025-02-19 08:04 | XMS_ITS | Encounter Summary ---
Author Organization [facility] Address [address] [place] [address] Care Team Providers Care Insurance Administrative Assistant Name Role Phone Javad Donato MD Unavailable [phone] Javad Donato MD Primary Care Provider Wednesday, Michelle ARGUETA Unavailable [phone] Encounter Details Date Type Department Care Team (Late st Contact Info) Description 03/16/2023 Abstract [facility] [place] [address] [facility] 110 [place] [address] Javad Donato MD [address] [facility] 110 [place] [address] Social History Tobacco Use Types Packs/Day Years [...] [place] [address] [place] [address] [place] [address] Javad Donato MD [address] [place] [address] [place] [address] 04/30/2025 8:00 AM EST Office Visit [facility] [address] [place] [address] Jose Robins, JAVA CORE DEVELOPER [address] [place] [address] documented as of this encounter Visit Diagnoses Not on filedocumented in this encounter Care Teams Insurance Administrative Assistant Relationship Specialty Start Date End Date Javad Donato MD [address] [place] [address] [place] [address] PCP - ACO Reach 11/19/22 Javad Donato MD [address] [place] [address] [place] [address] PCP - General Internal Medicine 01/05/23Wednesday, ELLIE Martinez [address] [place] [address] Licensed Practical Nurse Family Medicine 05/08/24 05/16/24 documented as of this encounter
--- OUTSIDE RECORDS SUMMARY | 2025-02-19 08:05 | XMS_ITS | Encounter Summary ---
Author Organization [facility] Address [address] [place] [address] Care Team Providers Care Medical Receptionist Medical Assistant Name Role Phone Javad Donato MD Unavailable [phone] Javad Donato MD Primary Care Provider [phone] Wednesday, Michelle ARGUETA Unavailable [phone] Encounter Details Date Type Department Care Team (Late st Contact Info) Description 06/29/2023 Abstract [facility] [place] [facility] 112 [facility] 110 [place] [address] Javad Donato MD 112 [facility] 110 [place], [place] [address] Social History Tobacco Use Types Packs/Day Years [...] How often do you attend chur or rastafari services? 1 to 4 times per year [...] Recorded Patient Health Questionnaire-2 Score 0 05/17/2023 [facility] of Occupat ional Health - Occupational [...] place to sleep or slept in a intermediate (including now)? No 05/10/2023 Sex and Gender [...] 9:00 AM EDT [facility] 112 [facility] 110 [place] [address] Javad Donato MD 112 [facility] 110 [place] [address] 04/30/2025 8:00 AM EST Office Visit [facility] Michele MAR[facility]AMSA[facility] [place] [address] Jose Robins, ROTARY PUMP OPERATOR [address] [place], [place] [address] documented as of this encounter Visit Diagnoses Not on filedocumented in this encounter Care Teams Medical Receptionist Medical Assistant Relationship Specialty Start Date End Date Javad Donato MD [address] [place] [address] [place] [address] PCP - ACO Reach 11/19/22 Javad Donato MD [address] [place] [address] [place] [address] PCP - General Internal Medicine 01/05/23WednesdayMichelle LPN [address] [place] [address] Licensed Practical Nurse Family Medicine 05/08/24 05/16/24 documented as of this encounter
--- OUTSIDE RECORDS SUMMARY | 2025-02-19 08:05 | XMS_ITS | Encounter Summary ---
Author Organization [facility] Address [address] [place] [address] Care Team Providers Care Optical Brightener Maker Helper Name Role Phone Javad Donato MD Unavailable [phone] Javad Donato MD Primary Care Provider [phone] Wednesday, Michelle ARGUETA Unavailable [phone] Encounter Details Date Type Department Care Team (Late st Contact Info) Description 06/14/2023 Orders Only [facility] [place] [facility] [address] [place] [address] [place] [address] A, Unknown Practice [address] [place] [address] Social History Tobacco Use Types [...] How often do you attend chur or anglican services? 1 to 4 times per year 05/10/2023 Do you belong to any clubs o r organizations such as jewish groups, unions, fraternal or athletic groups, or [...] 9:00 AM EDT Office Visit [facility] [place] [facility] [address] [facility] 110 [place] [address] Javad Donato MD [address] [place] [address] [place] [address] 04/30/2025 8:00 AM EST Office Visit [facility] Michele MARKHAMMER[facility] [address] Jose Robins, DYNAMOMETER TESTER [address] [place] [address] documented as of this encounter Procedures Procedure Name Priority Date/Time Associated Diagnosis Comments SCANNED LABS Routine 06/08/2023 9:05 AM EST documented in this encounter Results * SCANNED LABS (06/08/2023 9:05 AM EST) us Unknown Practice A LAB CHG PERFORMABLES Final Re sult documented in this encounter Visit Diagnoses Not on filedocumented in this encounter Care Teams Optical Brightener Maker Helper Relationship Specialty Start Date End Date Javad Donato MD [address] [place] 110 [place] [address] PCP - ACO Reach 11/19/22 Javad Donato MD [address] [place] [address] [place] [address] PCP - General Internal Medicine 01/05/23Wednesday, ELLIE Martinez [address] [place] [address] Licensed Practical Nurse Family Medicine 05/08/24 05/16/24 documented as of this encounter
--- OUTSIDE RECORDS SUMMARY | 2025-02-19 08:05 | XMS_ITS | Encounter Summary ---
Author Organization [facility] Address [address] [place] [address] Care Team Providers Care Emission Specialist Name Role Phone Javad Donato MD Unavailable [phone] Javad Donato MD Primary Care Provider Wednesday, Michelle ARGUETA Unavailable [phone] Encounter Details Date Type Department Care Team (Late st Contact Info) Description 07/05/2023 Abstract [facility] [place] [facility] 110 [place] [address] Javad Donato MD 112 [facility] 110 [place], [place] [address] Social History Tobacco Use Types Packs/Day Years [...] How often do you attend chur or sikh services? 1 to 4 times per year [...] Recorded Patient Health Questionnaire-2 Score 0 05/17/2023 [facility] of Occupat ional Health - Occupational Stress [...] 9:00 AM EDT Office Visit [facility]ine K[facility] [address] [place] [address] [place] [address] Javad Donato MD [address] [place] [address] [place] [address] 04/30/2025 8:00 AM EST Office Visit [facility] [address] [place] [address] Joes Robins, CNC SERVICE ENGINEER [address] [place] [address] documented as of this encounter Visit Diagnoses Not on filedocumented in this encounter Care Teams Emission Specialist Relationship Specialty Start Date End Date aJvad Donato MD [address] [place] [address] [place] [address] PCP - ACO Reach 11/19/22 Javad Donato MD [address] [place] [address] [place] [address] PCP - General Internal Medicine 01/05/23Wednesday, ELLIE Martinez [address] [place] [address] Licensed Practical Nurse Family Medicine 05/08/24 05/16/24 documented as of this encounter
--- OUTSIDE RECORDS SUMMARY | 2025-02-19 08:05 | XMS_ITS | Encounter Summary ---
Author Organization [facility] Address [address] [place] [address] Care Team Providers Care Film Sound Coordinator Name Role Phone Javad Donato MD Unavailable [phone] Javad Donato MD Primary Care Provider [phone] Wednesday, Michelle ARGUETA Unavailable [phone] Reason for Visit * Reason Onset Date Comments Med Refill 12/07/2023 Encounter Details Date Type Department Care Team (Late st Contact Info) Description 12/07/2023 Refill [facility] [place] [facility] [address] [facility] 110 [place] [address] Javad Donato MD 112 [facility] 110 [place], [place] [address] Social History Tobacco Use Types Packs/Day Years [...] often do you attend chur ch or taoist services? 1 to 4 times per year 05/10/2023 Do you belong to any clubs o r organizations such as voodoo groups, unions, fraternal [...] Recorded Patient Health Questionnaire-2 Score 0 05/17/2023 [facility] of Occupat ional Health - Occupational [...] 9:00 AM EDT Office Visit [facility] [place] [facility] [address] [facility] 110 [place] [address] Javad Donato MD [address] [facility] 110 [place] [address] 04/30/2025 8:00 AM EST Office Visit [facility] [address] [place] [address] Jose Robins, BOOMBOAT OPERATOR [address] [place] [address] documented as of this encounter Visit Diagnoses Not on filedocumented in this encounter Care Teams Film Sound Coordinator Relationship Specialty Start Date End Date Javad Donato MD [address] [place] [address] [place] [address] PCP - ACO Reach 11/19/22 Javad Donato MD [address] [place] [address] [place] [address] PCP - General Internal Medicine 01/05/23Wednesday, ELLIE Martinez [address] [place] [address] Licensed Practical Nurse Family Medicine 05/08/24 05/16/24 documented as of this encounter
--- OUTSIDE RECORDS SUMMARY | 2025-02-19 08:06 | XMS_ITS | Encounter Summary ---
Author Organization [facility] Address [address] [place] [address] Care Team Providers Care Manager Underwriting Name Role Phone Javad Donato MD Unavailable [phone] Javad Donato MD Primary Care Provider Wednesday, Michelle ARGUETA Unavailable [phone] Encounter Details Date Type Department Care Team (Late st Contact Info) Description 07/07/2023 Abstract [facility] [place] [facility] 112 [facility] 110 [place] [address] Javad Donato MD [address] [facility] 110 [place], [place] [address] Social History Tobacco Use Types Packs/Day Years [...] Recorded Patient Health Questionnaire-2 Score 0 05/17/2023 [facility] of Occupat ional Health - [...] 9:00 AM EDT Office Visit [facility]Justine Kovacs [facility] [address] [place] [address] [place] [address] Javad Donato MD [address] [place] [address] [place] [address] 04/30/2025 8:00 AM EST Office Visit [facility] [address] [place] [address] Jose Robins, CYBER SECURITY MANAGER [address] [place] [address] documented as of this encounter Visit Diagnoses Not on filedocumented in this encounter Care Teams Manager Underwriting Relationship Specialty Start Date End Date Javad Donato MD [address] [place] [address] [place] [address] PCP - ACO Reach 11/19/22 Javad Donato MD [address] [place] [address] [place] [address] PCP - General Internal Medicine 01/05/23Wednesday, ELLIE Martinez [address] [place] [address] Licensed Practical Nurse Family Medicine 05/08/24 05/16/24 documented as of this encounter
--- OUTSIDE RECORDS SUMMARY | 2025-02-19 08:06 | XMS_ITS | Clinical Summary ---
Author Organization [facility] Address [address] [facility] [address] Care Team Providers Care Manager Of Human Resources Name Role Phone Javad Donato MD Unavailable [phone] Javad Donato MD Primary Care Provider [phone] Allergies Active Allergy Reactions Criticality Noted Date [...] tablet 3 06/23/20 24 Active HYDROcodone-acetami nophen ([place]) 5-325 MG tabletIndications:H erniated lumbar disc without [...] 11/29/2024 11:30 AM EDT Office Visit N[facility] [address] 110 [place] [address] Alma Akins PA Herniated lumbar disc without myelopathy (Primary Dx); Benign essential hypertension ; S/P total left hip arthroplasty; Tinea pedis of both feet; Skin irritation; Open wound of left lower leg, initial encounter; Class 2 severe obesity due to excess calories with serious comorbidity and body mass index (BMI) of 38.0 to 38.9 in adult ([facility]); Umbilical hernia without obstruction and without gangrene; Status post right hip replacement 11/29/2024 Bamboo flowsheet [facility] [address] [place] [address] Alma Akins PA 11/29/2024 Travel 11/27/2024 Telephone [facility] [address] 110 [place] [address] Javad Donato MD Med Refill from Last 3 Months Immunizations Immunization Administration [...] week 05/10/2023 How often do you attend [facility] or yarsani services? 1 to 4 times per year [...] Recorded Patient Health Questionnaire-2 Score 0 11/29/2024 [facility] of Occupat ional Health - [...] 9:00 AM EDT Office Visit [facility] [place] [facility] 112 [facility] 110 [place] [address] Javad Donato MD 112 [facility] 110 [place] [address] 04/30/2025 8:00 AM EST Office Visit [facility] [place] [address] Jose Robins, FINE GRADER [address] [place], [place] [address] Health Maintenance Due Date Last Done Comments [...] Narrative 07/12/2017 12:00 PM EST PERFORMED AT [facility] LOCATION:[id number] internal hemorrhoids, diverticulosis Procedure Note CONVERSION, GENERIC - 11/11/2022 PERFORMED AT [facility] LOCATION:[id number] internal hemorrhoids, diverticulosis Javad Donato MD ENDOSCOPY PROCEDURE ORDERABLES Final Result from Last 3 Months or Most Recently Relevant to Health Maintenance Insurance [employer] Care Teams Manager Of Human Resources Relationship Specialty Start Date End Date Javad Donato MD [address] [facility] 110 [place] [address] PCP - ACO Reach 11/19/22 Javad Donato MD [address] [facility] 110 [place] [address] PCP - General Internal Medicine 01/05/23
--- OUTSIDE RECORDS SUMMARY | 2025-02-19 08:07 | XMS_ITS | Encounter Summary ---
Author Organization [facility] Address [address] [place] [address] Care Team Providers Care Registered Phlebotomist Part Time Name Role Phone Javad Donato MD Unavailable [phone] Javad Donato MD Primary Care Provider Wednesday, Michelle ARGUETA Unavailable [phone] Encounter Details Date Type Department Care Team (Late st Contact Info) Description 04/05/2024 Abstract [facility] [address] [facility] 110 [place] [address] Javad Donato MD 112 [facility] 110 [place], [place] [id number] Social History Tobacco Use Types Packs/Day Years [...] How often do you attend chur or christianity services? 1 to 4 times [...] Patient Health Questionnaire-2 Score 0 05/17/2023 [facility] - Occupational [...] AM EDT [facility] [address] [facility] 110 [place] [address] Javad Donato MD [address] [facility] 110 [place] [address] 04/30/2025 8:00 AM EST Office Visit [facility] [address] [place] [phone] Jose Robins, PICKING TABLE WORKER [address] [place], [place] [phone] documented as of this encounter Visit Diagnoses Not on filedocumented in this encounter Care Teams Registered Phlebotomist Part Time Relationship Specialty Start Date End Date Javad Donato MD [address] [place] [address] [place] [address] PCP - ACO Reach 11/19/22 Javad Donato MD [address] [place] [address] [place] [address] PCP - General Internal Medicine 01/05/23Wednesday, ELLIE Martinez [address] [place] [address] Licensed Practical Nurse Family Medicine 05/08/24 05/16/24 documented as of this encounter
--- OUTSIDE RECORDS SUMMARY | 2025-02-19 08:07 | XMS_ITS | Encounter Summary ---
Author Organization [facility] Address [address] [place] [address] Care Team Providers Care Gis Scientist Name Role Phone Javad Donato MD Unavailable [phone] Javad Donato MD Primary Care Provider Wednesday, Michelle ARGUETA Unavailable [phone] Encounter Details Date Type Department Care Team (Late st Contact Info) Description 07/07/2023 Abstract [facility] [place] [facility] 112 [facility] 110 [place] [address] Javad Donato MD 112 [facility] 110 [place], [place] [address] Social History Tobacco Use Types Packs/Day Years [...] How often do you attend chur or mu-ism services? 1 to 4 times per year 05/10/2023 Do you belong to any clubs o r organizations such as pentecostalism groups, unions, fraternal or athletic groups, or [...] Recorded Patient Health Questionnaire-2 Score 0 05/17/2023 [facility] - [...] 9:00 AM EDT Office Visit [facility] [address] [place] [address] [place] [phone] Javad Donato MD [address] [place] [address] [place] [address] 04/30/2025 8:00 AM EST Office Visit [facility] [address] [place] [address] Jose Robins, TOWEL DISTRIBUTOR [address] [place] [address] documented as of this encounter Visit Diagnoses Not on filedocumented in this encounter Care Teams Gis Scientist Relationship Specialty Start Date End Date Javad Donato MD [address] [place] [address] [place] [address] PCP - ACO Reach 11/19/22 Javad Donato MD [address] [place] [address] [place] [address] PCP - General Internal Medicine 01/05/23Wednesday, ELLIE Martinez [address] [place] [address] Licensed Practical Nurse Family Medicine 05/08/24 05/16/24 documented as of this encounter
--- OUTSIDE RECORDS SUMMARY | 2025-02-19 08:08 | XMS_ITS | Encounter Summary ---
Author Organization [facility] Address [address] [place] [address] Care Team Providers Care Warehouse Supervisor Name Role Phone Javad Donato MD Unavailable [phone] Javad Donato MD Primary Care Provider [phone] Wednesday, Michelle ARGUETA Unavailable [phone] Reason for Referral * Rehabilitation - Outpatient (Routine) - Closed Specialty Diagnoses / Procedures Referred By Rayray barkley Referred To Contact Physical Therapy Diagnoses Arthritis of left hip Procedures [place] OFFICE/OUTPATIENT [facility] 60 MINUTES Jose Robins NP [address] [place] [address] Phone: tel: fax: [facility] [address] [place] [address] Phone: tel: fax: Referral ID Status Reason Start Date Expiration Date V isits Requested Visits Authorized [id number] Closed Specialty Services Required 05/03/2024 06/27/2024 1 1 Encounter Details Date Type Department Care Team (Late st Contact Info) Description 05/03/2024 Orders Only [facility] [address] [place] [address] Jose Robins NP [address] [place], [place] [phone] Arthritis of left hip (Primary Dx) Social [...] often do you attend chur ch or scientologist services? 1 to 4 times per year 05/10/2023 Do you belong to any clubs o r organizations such as mandaeism groups, unions, fraternal or athletic groups, or [...] Recorded Patient Health Questionnaire-2 Score 0 05/17/2023 [facility] - Occupational Stress Questionnaire Answer Date [...] [address] [place] [address] [place] [address] Javad Donato MD [address] [place] [address] [place] [address] 04/30/2025 8:00 AM EST Office Visit [facility] [address] [place] [phone] Jose Robins, YISEL [address] [place] [address] Scheduled Referrals Name Type Priority Associated Diagnoses Order Schedule Ambulatory referral to Physical Therapy Outpatient Referral Routine Arthritis of left hip Expected: 05/03/2024 (Approximate), Expires: 10/31/2024 documented as of this encounter Visit Diagnoses Diagnosis Arthritis of left hip- Primary documented in this encounter Care Teams Warehouse Supervisor Relationship Specialty Start Date End Date Javad Donato MD [address] [facility] 110 [place] [address] PCP - ACO Reach 11/19/22 Javad Donato MD [address] [place] [address] [place] [address] PCP - General Internal Medicine 01/05/23WednesdayMichelle LPN [address] [place] [address] Licensed Practical Nurse Family Medicine 05/08/24 05/16/24 documented as of this encounter
--- OUTSIDE RECORDS SUMMARY | 2025-02-19 08:08 | XMS_ITS | Clinical Summary ---
Author Organization [employer] Address [id number] [address] [place] [address] Care Team Providers Care Corporate Counselor Name Role Phone Javad Donato MD Primary [...] = 0.6 oz pur e alcohol) rare [facility] Utilities Answer Date Recorded In the past 12 months has th e The car easily beat, gas, oil, or water [employer] threatened to shut off services in your [...] home today. Medical Devices Implanted Type Area Trimmer Machine Operator Device Identifier Shelf Expiration Date Model / Serial / Lot Shell Actb 56mm Hip 4 Hl Clr Cd [place] G7 F Hmsphr - Sna - [id number] Implanted:Qt y: 1 on 07/07/2023 by Amauri Blair DO at [facility] Orthopedic Implant Right: Hip [employer] 04/03/2033 [id number] / NA / [id number] Liner Actb 36mm F Vivacit-E Lum G7 Hip Strl Lf - [id number] Implanted:Qt y: 1 on 07/07/2023 by Amauri Blair DO at [facility] Orthopedic Implant Right: Hip [employer] 05/01/2028 [id number] / / [id number] Stem Fem 129d 4 12/14 45.5mm Fitmore Protasul-64 Hip Rgh - [id number] Implanted:Qt y: 1 on 07/07/2023 by Amauri Blair DO at [facility] Orthopedic Implant Right: Hip [employer] 10/29/2032 [id number] / / [id number] Shell Actb 56mm Hip 4 Hl Clr Cd [place] G7 F Hmsphr - Sna - [id number] Implanted:Qt y: 1 on 05/03/2024 by Amauri Blair DO at [facility] Orthopedic Implant Left: Hip [employer] 12/11/2033 [id number] / NA / [id number] Liner Actb 36mm F Vivacit-E Lum G7 Hip Strl Lf - Sna - [id number] Implanted:Qt y: 1 on 05/03/2024 by Amauri Blair DO at [facility] Orthopedic Implant Left: Hip [employer] 02/20/2029 [id number] / NA / [id number] Stem Fem 129d 4 1214 45.5mm Fitmore Protasul-64 Hip Rgh - Sna - [id number] Implanted:Qt y: 1 on 05/03/2024 by Amauri Blair DO at [facility] Orthopedic Implant Left: Hip [employer] 01/25/2029 [id number] / NA / [id number] Head Fem 36mm +7mm 06/10 Xl Blx D Hip Actb - Sna - [id number] Implanted:Qt y: 1 on 05/03/2024 by Amauri Blair DO at [facility] Orthopedic Implant Left: Hip [employer] 04/25/2031 [id number] 4 / NA / [id number] [employer] Femoral Head 36mm Implanted:Qt y: 1 on 07/07/2023 by Amauri Blair DO at [facility] Other Implant Right: Hip [employer] 10/21/2031 [id number] / / [id number] Screw Bn 30mm 6.5mm St Actb Seven Trlg Strl Rpl [id number]+324 165+[id number] - [id number] Implanted:Qt y: 1 on 07/07/2023 by Amauri Blair DO at [facility] Screw Right: Hip [employer] 01/21/2033 [id number] / / [id number] Screw Bn 30mm 6.5mm St Actb Seven Trlg Strl Rpl [id number]+324 165+[id number] - [id number] Implanted:Qt y: 1 on 07/07/2023 by Amauri Blair DO at [facility] Screw Right: Hip [employer] 02/08/2033 [id number] / / [id number] Screw Bn 30mm 6.5mm St Actb Seven Trlg Strl Rpl [id number]+324 165+[id number] - [id number] Implanted:Qt y: 1 on 07/07/2023 by Amauri Blair DO at [facility] Screw Right: Hip [employer] 02/08/2033 [id number] / / [id number] Screw Bn 30mm 6.5mm St Actb Seven Trlg Strl Rpl [id number]+324 165+[id number] - Sna - [id number] Implanted:Qt y: 1 on 05/03/2024 by Amauri Blair DO at [facility] Screw Left: Hip [employer] 11/09/203394-6672-669-3 0 / NA / [id number] Screw Bn 30mm 6.5mm St Actb Seven Trlg Strl [facility] [id number]+324 165+[id number] - Sna - [id number] Implanted:Qt y: 1 on 05/03/2024 by Amauri Blair DO at [facility] Screw Left: Hip [employer] 11/29/203320-0621-187-3 0 / NA / [id number] Insurance [address] [place] [address] MEDICARE [employer]ICAL [place] Advance Directives * Full Code (Latest Code Status on File) Date Activated Date Inactivated Comments 05/03/2024 7:48 AM 05/03/2024 6:58 PM * Full Code Date Activated Date Inactivated Comments 07/06/2023 5:59 PM 07/07/2023 4:47 PM Care Teams Corporate Counselor Relationship Specialty Start Date End Date Javad Donato MD [address] [phone] PCP - General Internal Medicine 06/15/17
--- OUTSIDE RECORDS SUMMARY | 2025-02-19 08:09 | XMS_ITS | CCD ---
Author Organization [facility] CliniSydc Care Team Providers Care Rehabilitation Coordinator Name Role Phone JAVAD DONATO Primary Care Physician [phone] [address] ., DR ANTIONE Fletcher Admitting Unavailable [...] Admitting Peyton vailable LAKSHMIPATHY ., NARENDRANATH Admitting Epy[place] vailable LAKSHMIPATHY ., NARENDRANATH Consulting Peyton vailable [...] Unavailable Javad Donato MD Primary Care Provider [phone] CHARISSA BLAIR Referring Unavailable JAVAD DONATO B [...] Unavailable JAVAD DONATO Primary Care Unavailable Wednesday AIR INTELLIGENCE SPECIALIST, Michelle Unavailable Wednesday AIR INTELLIGENCE SPECIALIST, Michelle Unavailable Javad Donato MD Primary Care [...] Unavailable Justine BAER, Lidia Koch Attending Unavailable Mac SANTIAGO Attending Unavailable Mac SANTIAGO Attending Unavailable Mac SANTIAGO Attending Unavailable Allergies Allergy Classification Reported Allergen(s) Allergy Type Date of Onset Reaction(s) Facility (20 sources) carvedilol; Translations: [CARVEDILOL] [facility] Medications Current Medications Medication Drug [...] every six hours for pain HYDROcodone-aceta minophen (Chili) 5-325 MG tablet Indications: Herniated lumbar disc [...] Daily, # 90 tab(s), Refills(s) 3, Pharmacy: [facility] [id number], 186, cm, 02/05/25 10:36:00 EDT, Height/Length Dosing, [...] Daily, # 90 tab(s), Refills(s) 3, Pharmacy: [facility] [id number], 186, cm, 02/05/25 10:36:00 EDT, Height/Length Dosing, [...] BID, # 180 cap(s), Refills(s) 3, Pharmacy: [facility] [id number], 186, cm, 02/05/25 10:36:00 EDT, Height/Length Dosing, [...] BID, # 60 cap(s), Refills(s) 11, Pharmacy: [facility] [id number], 186, cm, 02/08/23 11:10:00 EDT, Height/Length Dosing, [...] Start: 02-07-2024 take 1 capsule by mo [facility] once daily Vitamin B Complex oral capsule [...] activity, # 30 tab(s), Refills(s) 3, Pharmacy: [facility] [id number], 186, cm, 06/17/20 14:49:00 [...] Contact Information PAMELA BAER, Mac [place], URL [address] [place] [address] [place] [address] Additional Instructions: 1 yr (PCP checks PSA) [...] tablet, 200 mg= 1 tab(s), Oral, q24hr Chili 325 mg-5 mg oral tablet, 1 tab(s), [...] 05/18/2023 Recorded (more content not included)... Normal [facility] Comment on above: Result Comment: Elec [...] Unremarkable left total hip arthroplasty. Jose Hernández CLINICAL REHAB LIAISON-PANEL COVERER [facility] Study observation (narrative) [facility] - Hematology and Cell countson 10-25-2024 HbA1c (Bld) [Mass fraction] 5.8 % [facility] No Panel Informationon 10-25 [facility] MR LUMBAR SPINE WO CONTRASTo n [...] BY: Clark Landeros, DO Normal Not Available [facility] US LOWER EXTREMITY MEGHNA RIAL DUPLEX BILATERALon 06-22-2024 [facility] US LOWER EXTREMITY ARTERIAL DUPLEX BILATERAL [...] Location: Velocity[facility]Waveform Location: [facility] THIGH: THIGH: R CLOUD SERVICES ARCHITECT: 165 T L CLOUD SERVICES ARCHITECT: 119 T R SFA PROX: 101 T L SFA PROX: 121 T R SFA MID: 96 T L SFA MID 103 T R SFA DIST: 104 T L SFA DIST: 81 T R POP A: 54 T L POP A: 65 T CALF: CALF: R KAMERON: 111 T L KAMERON: 80 T R BED AND BREAKFAST OPERATOR PROX: 105 T L BED AND BREAKFAST OPERATOR PROX: 123 T R BED AND BREAKFAST OPERATOR MID: 139 T L BED AND BREAKFAST OPERATOR MID: 125 T R BED AND BREAKFAST OPERATOR DIST: 129 T L BED AND BREAKFAST OPERATOR DIST: 151 T R SALINAS: 105 B L SALINAS: 76 T IMPRESSION: No significant findings. Mild plaque in the right common femoral artery with less than 50% stenosis. *This report is generated using voice recognition reporting (Mogad). On occasion EBDSofte erroneously drops words from the report or [...] Comment on above: Performed By: #### 1 400, 96479 #### [facility] [address] [place] [address] Credit Union Examiner: Katarzyna Khan #### 5363, 6340, 496 #### [facility] [address], [address] [place] [address] Credit Union Examiner: Casey Chi MD Hematocrit (Bld) [Volume fraction] 37.3 % Low 38.5-50.0 [facility] Comment on above: Performed By: #### 1 770, 19148 #### [facility] [address] [place] [address] Credit Union Examiner: Katarzyna Khan #### 5363, 0380, 496 #### [facility] [address], [address] [place] [address] Credit Union Examiner: Casey Chi MD Hemoglobin (Bld) [Mass/Vol] 12.0 g/dL Low 13.2-17.1 [facility] Comment on above: Performed By: #### 1 739, 24526 #### [facility] [address] [place] [address] Credit Union Examiner: Katarzyna Khan #### 5363, 9920, 496 #### [facility] [address], [address] [place] [address] Credit Union Examiner: Casey Chi MD MCH (RBC) [Entitic mass] 28.0 pg Normal 27.0-33.0 [facility] Comment on above: Performed By: #### 1 219, 09899 #### [facility] [address] Credit Union Examiner: Katarzyna Khan #### 5363, 8190, 496 #### [facility] [address], [address] [place] [address] Credit Union Examiner: Casey Chi MD MCHC (RBC) [Mass/Vol] 32.2 [...] clinical condition. Performed By: #### 1 759, 58190 #### [facility] [address] [place], [place] [id number] Credit Union Examiner: Katarzyna Khan #### 5363, 3360, 496 #### [facility] [address], [address] [place] [address] Credit Union Examiner: Casey Chi MD MCV (RBC) [Entitic vol] 86.9 fL Normal 80.0-100.0 [facility] Comment on above: Performed By: #### 1 279, 01437 #### [place] [address] Credit Union Examiner: Katarzyna Khan #### 5363, 7600, 496 #### [facility] [address], [address] [place] [address] Credit Union Examiner: Casey Chi MD Platelet mean volume (Bld) [Entitic vol] 9.1 fL Normal 7.5-12.5 [facility] Comment on above: Performed By: #### 1 759, 46165 #### [facility]-[address] [address] Credit Union Examiner: Katarzyna Khan #### 5363, 7600, 496 #### [facility] [place] [address] Credit Union Examiner: Casey Chi MD Platelets (Bld) [#/Vol] 242 10*3/uL Normal 140-400 [facility] Comment on above: Performed By: #### 1 759, 53590 #### [facility]-[address] [address] Credit Union Examiner: Katarzyna Khan #### 5363, 7600, 496 #### [facility] [place] [address] Credit Union Examiner: Casey Chi MD RBC (Bld) [#/Vol] 4.29 10*6/uL Normal 4.20-5.80 [facility] Comment on above: Performed By: #### 1 759, 66145 #### [facility] [address] [place] [address] Credit Union Examiner: Katarzyna Khan #### 5363, 7600, 496 #### [facility] [place] [address] Credit Union Examiner: Casey Chi MD WBC (Bld) [#/Vol] 7.7 10*3/uL Normal 3.8-10.8 [facility] Comment on above: Performed By: #### 1 759, 63669 #### [facility] [address] [place] [address] Credit Union Examiner: Katarzyna Khan #### 5363, 7600, 496 #### [facility] [place] [address] Credit Union Examiner: Casey Chi MD [facility] METABOLIC [facility] 06-15-2024 Albumin [Mass/Vol] 3.9 g/dL Normal 3.6-5.1 [facility] Comment on above: Performed By: #### 1 759, 61512 #### [facility] [address] Credit Union Examiner: Katarzyna Khan #### 5363, 7600, 496 #### [facility] [place] [address] Credit Union Examiner: Casey Chi MD Albumin/Globulin [Mass ratio] 1.5 {ratio} Normal 1.0-2.5 [facility] Comment on above: Performed By: #### 1 759, 32635 #### [facility] [address] Credit Union Examiner: Katarzyna Khan #### 5363, 7600, 496 #### [facility] [place] [address] Credit Union Examiner: Casey Chi MD ALP [Catalytic activity/Vol] 71 U/L Normal 35-144 [facility] Comment on above: Performed By: #### 1 759, 60351 #### [facility] [address] Credit Union Examiner: Katarzyna Khan #### 5363, 7600, 496 #### [facility] [place] [address] Credit Union Examiner: Casey Chi MD ALT [Catalytic activity/Vol] 18 U/L Normal 9-46 [facility] Comment on above: Performed By: #### 1 759, 89671 #### [facility] [address] [place] [address] Credit Union Examiner: Katarzyna Khan #### 5363, 7600, 496 #### [facility] [address], [address] [place] [address] Credit Union Examiner: Casey Chi MD AST [Catalytic activity/Vol] 18 U/L Normal 10-35 [facility] Comment on above: Performed By: #### 1 759, 81545 #### [facility] [address] [place] [address] Credit Union Examiner: Katarzyna Khan #### 5363, 7600, 496 #### [facility] [address], [address] [place] [address] Credit Union Examiner: Casey Chi MD Bilirubin [Mass/Vol] 0.6 mg/dL Normal 0.2-1.2 [facility] Comment on above: Performed By: #### 1 759, 29870 #### [facility] [address] [place] [address] Credit Union Examiner: Katarzyna Khan #### 5363, 7600, 496 #### [facility] [address], [address] [place] [address] Credit Union Examiner: Casey Chi MD BUN/CREATININE RATIO SEE NOTE: Normal 6-22 [facility] Comment on above: Result Comment: Not Reported: BUN and Creatinine are within reference range. Performed By: #### 1 759, 97826 #### [facility] [address] [place] [address] Credit Union Examiner: Katarzyna Khan #### 5363, 7600, 496 #### [facility] [address], [address] [place] [address] Credit Union Examiner: Casey Chi MD Calcium [Mass/Vol] 9.2 mg/dL Normal 8.6-10.3 [facility] Comment on above: Performed By: #### 1 759, 36334 #### [facility] Credit Union Examiner: Katarzyna Khan #### 5363, 7600, 496 #### [facility] [place] [address] Credit Union Examiner: Casey Chi MD Chloride [Moles/Vol] 105 mmol/L Normal 98-110 [facility] Comment on above: Performed By: #### 1 759, 94862 #### [facility] [address] [place] [address] Credit Union Examiner: Katarzyna Khan #### 5363, 7600, 496 #### [facility] [place] [address] Credit Union Examiner: Casey Chi MD CO2 [Moles/Vol] 26 mmol/L Normal 20-32 [facility] Comment on above: Performed By: #### 1 759, 33796 #### [facility] [address] [place] [address] Credit Union Examiner: Katarzyna Khan #### 5363, 7600, 496 #### [facility] [place] [address] Credit Union Examiner: Casey Chi MD Creatinine [Mass/Vol] 0.82 mg/dL Normal 0.70-1.28 [facility] Comment on above: Performed By: #### 1 759, 11635 #### [facility] [address] [place] [address] Credit Union Examiner: Katarzyna Khan #### 5363, 7600, 496 #### [facility] [address], [address] [place] [address] Credit Union Examiner: Casey Chi MD GFR/1.73 sq M.predicted among non-blacks MDRD (S/P/Bld) [Vol rate/Area] 94 mL/min/{1.73_m2} Normal > OR = 60 [facility] Comment on above: Performed By: #### 1 759, 23942 #### [facility] [address] [place], [place] [address] Credit Union Examiner: Katarzyna Khan #### 5363, 7600, 496 #### [facility] [address], [address] [place] [address] Credit Union Examiner: Casey Chi MD Globulin (S) [Mass/Vol] 2.6 g/dL Normal 1.9-3.7 [facility] Comment on above: Performed By: #### 1 759, 14394 #### [facility] [address] [place] [address] Credit Union Examiner: Katarzyna Khan #### 5363, 7600, 496 #### [facility] [address], [address] [place] [address] Credit Union Examiner: Casey Chi MD Glucose [Mass/Vol] 106 mg/dL High 65-99 [facility] Comment on above: Result Comment: Fasting reference interval For someone without known diabetes, a glucose value between 100 and 125 mg/dL is consistent with prediabetes and should be confirmed with a follow-up test. Performed By: #### 1 759, 80313 #### [facility] [address] [place] [address] Credit Union Examiner: Katarzyna Khan #### 5363, 7600, 496 #### [facility] [address], [address] [place] [address] Credit Union Examiner: Casey Chi MD Potassium [Moles/Vol] 4.1 mmol/L Normal 3.5-5.3 [facility] Comment on above: Performed By: #### 1 759, 86159 #### [facility] [address] [place] [address] Credit Union Examiner: Katarzyna Khan #### 5363, 7600, 496 #### [facility] [address], [address] [place] [address] Credit Union Examiner: Casey Chi MD Protein [Mass/Vol] 6.5 g/dL Normal 6.1-8.1 [facility] Comment on above: Performed By: #### 1 759, 24829 #### [facility] [address] [place] [address] Credit Union Examiner: Katarzyna Khan #### 5363, 7600, 496 #### [facility] [address], [address] [place] [address] Credit Union Examiner: Casey Chi MD Sodium [Moles/Vol] 139 mmol/L Normal 135-146 [facility] Comment on above: Performed By: #### 1 759, 40039 #### [facility] [address] [place] [address] Credit Union Examiner: Katarzyna Khan #### 5363, 7600, 496 #### [facility] [address], [address] [place] [address] Credit Union Examiner: Casey Chi MD Urea nitrogen [Mass/Vol] 16 mg/dL Normal 7-25 [facility] Comment on above: Performed By: #### 1 759, 50467 #### [facility] Credit Union Examiner: Katarzyna hKan #### 5363, 7600, 496 #### [facility] [address], [address] [place] [address] Credit Union Examiner: Casey Chi MD HEMOGLOBIN A1con 06-15-2024 HEMOGLOBIN [...] diagnosis of diabetes in children. According to [place] Diabetes Association (ADA) guidelines, hemoglobin A1c <7.0% represents optimal control in non- diabetic patients. Different metrics may apply to specific patient populations. Standards of Medical Care in Diabetes(ADA). Performed By: #### 1 759, 28777 #### [facility] [address] [place] [address] Credit Union Examiner: Katarzyna Khan #### 5363, 7600, 496 #### [facility] [address], [address] [place] [address] Credit Union Examiner: Casey Chi MD LIPID PANEL, [place] [address] Cholesterol [Mass/Vol] 172 mg/dL Normal <200 [facility] Comment on above: Order Comment: FASTI NG:YES FASTING: YES Performed By: #### 1 759, 05541 #### [facility] [address] [place] [address] Credit Union Examiner: Katarzyna Khan #### 5363, 7600, 496 #### [facility] [address], [address] [place] [address] Credit Union Examiner: Casey Chi MD Cholesterol in HDL [Mass/Vol] 32 mg/dL Low > OR = 40 [facility] Comment on above: Order Comment: FASTI NG:YES FASTING: YES Performed By: #### 1 759, 05852 #### [facility] [address] [place] [address] Credit Union Examiner: Katarzyna Khan #### 5363, 7600, 496 #### [facility] [address], [address] [place] [address] Credit Union Examiner: Casey Chi MD Cholesterol in LDL [Mass/Vol] [...] LDL-C. Humberto MOORE et al. LULU. 2013;310(19): 9466-9156 ([email or web address]/[email or web address]) Performed By: #### 1 759, 71119 #### [facility] [address] [place], [place] [address] Credit Union Examiner: Katarzyna Khan #### 5363, 7600, 496 #### [facility] [address], [address] [place] [address] Credit Union Examiner: Casey Chi MD Cholesterol.total/ Cholesterol in HDL [Mass ratio] 5.4 {ratio} High <5.0 [facility] Comment on above: Order Comment: FASTI NG:YES FASTING: YES Performed By: #### 1 759, 59081 #### [facility] [address] [place] [address] Credit Union Examiner: Katarzyna Khan #### 5363, 7600, 496 #### [facility] [address], [address] [place] [address] Credit Union Examiner: Casey Chi MD NON HDL CHOLESTEROL 140 mg/dL (calc) High <130 [facility] Comment on above: Order Comment: FASTI NG:YES FASTING: YES Result Comment: For patients with diabetes plus 1 major ASCVD risk factor, treating to a non-HDL-C goal of <100 mg/dL (LDL-C of <70 mg/dL) is considered a therapeutic option. Performed By: #### 1 759, 03507 #### [facility] [address] [place], [place] [address] Credit Union Examiner: Katarzyna Khan #### 5363, 7600, 496 #### [facility] [address], [address] [place] [address] Credit Union Examiner: Casey Cih MD Triglyceride [Mass/Vol] 299 mg/dL High <150 [facility] Comment on above: Order Comment: FASTI NG:YES FASTING: YES Result Comment: If a non-fasting specimen was collected, consider repeat triglyceride testing on a fasting specimen if clinically indicated. Hicks et al. J. of Clin. Lipidol. 2015;9:129-169. Performed By: #### 1 759, 07365 #### [facility] [address] [place] [address] Credit Union Examiner: Katarzyna Khan #### 5363, 7600, 496 #### [facility] [address], [address] [place] [address] Credit Union Examiner: Casey Chi MD PSA, TOTALon 06-15-2024 PSA, TOTAL 0.43 ng/mL Normal < OR = 4.00 [employer] [facility] Comment on above: Result Comment: The total PSA value from this assay system is standardized against the WHO standard. The test result will be approximately 20% lower when compared to the equimolar-standardized total PSA (Dee Dee Lenore). Comparison of serial PSA results should be interpreted with this fact in mind. This test was performed using the Siemens chemiluminescent method. Values obtained from different assay methods cannot be used interchangeably. PSA levels, regardless of value, should not be interpreted as absolute evidence of the presence or absence of disease. Performed By: #### 1 759, 92972 #### [facility] [address] [place] [address] Credit Union Examiner: Katarzyna Khan #### 5363, 7600, 496 #### [facility] [address], [address] [place], [place] [address] Credit Union Examiner: Casey Chi MD XR Hip - left [...] Unremarkable left total hip arthroplasty. Jose Hernández CLINICAL REHAB LIAISON-PANEL COVERER [facility] Radiology Study observation (narrative) [facility] XR HIP LT 2-3 [...] Delcid MD on 05/03/2024 10:[address] [facility] XR Hip - left 3 Viewson 03-28 Imaging Result: April 06, 2024 x-rays AP and lateral of the left hip demonstrate joint space collapse with subchondral sclerosis and osteophyte formation consistent with arthritis. Impression: Arthritis of the left hip Amauri Blair D.O. [facility] XR Hip - left 3 Viewson 03-28 Radiology Study observation (narrative) [facility] BASIC METABOLIC PANLon 04-04 Anion gap [Moles/Vol] 9 mmol/L Normal 5-15 [facility] Comment on above: Performed By: #### C BCA, BMP #### [facility] ([id number]) [address] [place] [address] Calcium [Mass/Vol] 9.8 mg/dL Normal 8.5-10.5 [facility] Comment on above: Performed By: #### C BCA, BMP #### [facility] ([id number]) [address], [address] [place] [address] Chloride [Moles/Vol] 103 mmol/L Normal 98-109 [facility] Comment on above: Performed By: #### C BCA, BMP #### [facility] ([id number]) [address], [address] [place] [address] CO2 [Moles/Vol] 27 mmol/L Normal 22-32 [facility] Comment on above: Performed By: #### C BCA, BMP #### [facility] ([id number]) [address], [address] [place] [address] Creatinine [Mass/Vol] 0.89 mg/dL Normal 0.60-1.30 [facility] Comment on above: Result Comment: METH OD TRACEABLE TO IDMS STANDARD Performed By: #### C BCA, BMP #### [facility] ([id number]) [address], [address] [place] [address] eGFR (CKD-EPI) NON-RACE DEPENDENT >90 Normal >59 [facility] Comment on above: Result Comment: Reported eGFR is based on the CKD-EPI 2020 equation that does not use a race coefficient. Performed By: #### C BCA, BMP #### [facility] ([id number]) [address], [address] [place] [address] Glucose [Mass/Vol] 101 mg/dL High 65-99 [facility] Comment on above: Performed By: #### C BCA, BMP #### [facility] ([id number]) [address], [address] [place] [address] Potassium [Moles/Vol] 4.1 mmol/L Normal 3.5-5.0 [facility] Comment on above: Performed By: #### C BCA, BMP #### [facility] ([id number]) [address], [address] [place] [address] Sodium [Moles/Vol] 139 mmol/L Normal 134-146 [facility] Comment on above: Performed By: #### C BCA, BMP #### [facility] ([id number]) [address], [address] [place] [address] Urea nitrogen [Mass/Vol] 19 mg/dL Normal 5-27 [facility] Comment on above: Performed By: #### C BCA, BMP #### [facility] ([id number]) [address], [address] [place] [address] Basic Metabolic Panelon 10-0 Anion gap [Moles/Vol] 9 mmol/L 5 - 15 mmol/L [facility] Calcium [Mass/Vol] 9.8 mg/dL 8.5 - 10. 5 mg/dL [facility] Chloride [Moles/Vol] 103 mmol/L 98 - 109 mmol/L [facility] CO2 [Moles/Vol] 27 mmol/L 22 - 32 mmol/L [facility] Creatinine [Mass/Vol] 0.89 mg/dL 0.60 - 1.30 mg/dL [facility] Comment on above: METHOD TRACEABLE TO IDOR STANDARD eGFR (CKD-EPI)non-race dependent - PINF [facility] Comment on above: Reported eGFR is based on the CKD-EPI 2020 equation that does not use a race coefficient. Glucose [Mass/Vol] 101 mg/dL High 65 - 99 mg/dL [facility] Interpretation and review of laboratory results Abnormal [facility] Potassium [Moles/Vol] 4.1 mmol/L 3.5 - 5.0 mmol/L [facility] Sodium [Moles/Vol] 139 mmol/L 134 - 146 mmol/L [facility] Urea nitrogen [Mass/Vol] 19 mg/dL 5 - 27 mg/dL [facility] CBC AND AUTO DIFFon 04-04-20 24 ABSOLUTE BASOPHIL 0.0 X10E9/L Normal 0.0-0.2 [facility] Comment on above: Performed By: #### C BCA, BMP #### [facility] ([id number]) [address], [address] [place] [address] ABSOLUTE NEUTROPHIL 4.6 X10E9/L Normal 1.5-6.6 [facility] Comment on above: Performed By: #### C BCA, BMP #### [facility] ([id number]) [address], [address] [place] [address] Basophils/100 WBC (Bld) 0.4 % Normal [facility] Comment on above: Performed By: #### C BCA, BMP #### [facility] ([id number]) [address], [address] [place] [address] Eosinophils (Bld) [#/Vol] 0.1 10*3/uL Normal 0.0-0.4 [facility] Comment on above: Performed By: #### C BCA, BMP #### [facility] ([id number]) [address], [address] [place] [address] Eosinophils/100 WBC (Bld) 1.8 % Normal [facility] Comment on above: Performed By: #### C BCA, BMP #### [facility] ([id number]) [address], [address] [place] [address] Erythrocyte distribution width (RBC) [Ratio] 15.1 % High 11.5-15.0 [facility] Comment on above: Performed By: #### C SHERITA, BMP #### [facility] ([id number]) [address], [address] [place] [address] Hematocrit (Bld) [Volume fraction] 36.7 % Low 39-49 [facility] Comment on above: Performed By: #### C BCA, BMP #### [facility] ([id number]) [address], [address] [place] [address] Hemoglobin (Bld) [Mass/Vol] 12.5 g/dL Low 13.0-17.0 [facility] Comment on above: Performed By: #### C BCA, BMP #### [facility] ([id number]) [address], [address] [place] [address] Lymphocytes (Bld) [#/Vol] 1.4 10*3/uL Normal 1.0-3.5 [facility] Comment on above: Performed By: #### C BCA, BMP #### [facility] ([id number]) [address], [address] [place] [address] Lymphocytes/100 WBC (Bld) 21.3 % Normal [facility] Comment on above: Performed By: #### C BCA, BMP #### [facility] ([id number]) [address], [address] [place] [address] MCH (RBC) [Entitic mass] 30.1 pg Normal 27-34 [facility] Comment on above: Performed By: #### Manuela MAGALLON, BMP #### [facility] ([id number]) [address], [address] [place] [address] MCHC (RBC) [Mass/Vol] 34.0 g/dL Normal 32-36 [facility] Comment on above: Performed By: #### Manuela MAGALLON, BMP #### [facility] ([id number]) [address], [address] [place] [address] MCV (RBC) [Entitic vol] 89 fL Normal 80-100 [facility] Comment on above: Performed By: #### Manuela MAGALLON, BMP #### [facility] ([id number]) [address], [address] [place] [address] Monocytes (Bld) [#/Vol] 0.6 10*3/uL Normal 0-0.9 [facility] Comment on above: Performed By: #### Manuela MAGALLON, BMP #### [facility] ([id number]) [address], [address] [place] [address] Monocytes/100 WBC (Bld) 8.6 % Normal [facility] Comment on above: Performed By: #### Manuela MAGALLON, BMP #### [facility] ([id number]) [address], [address] [place] [address] Neutrophils/100 WBC (Bld) 67.9 % Normal [facility] Comment on above: Performed By: #### Manuela MAGALLON, BMP #### [facility] ([id number]) [address], [address] [place] [address] Platelet mean volume (Bld) [Entitic vol] 8.0 fL Normal 7-12 [facility] Comment on above: Performed By: #### Manuela MAGALLON, BMP #### [facility] ([id number]) [address], [address] [place] [address] Platelets (Bld) [#/Vol] 205 10*3/uL Normal 150-450 [facility] Comment on above: Performed By: #### Manuela MAGALLON, BMP #### [facility] ([id number]) [address], [address] [place] [address] RBC COUNT 4.14 X10E12/L Normal 4.10-5.70 [facility] Comment on above: Performed By: #### Manuela MAGALLON, BMP #### [facility] ([id number]) [address], [address] [place] [address] WBC (Bld) [#/Vol] 6.7 10*3/uL Normal 4.0-11.0 [facility] Comment on above: Performed By: #### Manuela MAGALLON, BMP #### [facility] ([id number]) [address], [address] [place] [address] CBC auto differentialon 10-0 -2023 Basophils (Bld) [#/Vol] 0.0 10*3/uL [facility] Basophils/100 WBC (Bld) 0.4 % [facility] Eosinophils (Bld) [#/Vol] 0.1 10*3/uL [facility] Eosinophils/100 WBC (Bld) 1.8 % [facility] Erythrocyte distribution width (RBC) [Ratio] 15.1 % High 11.5 - 15.0 % [facility] Hematocrit (Bld) [Volume fraction] 36.7 % Low 39 - 49 % [facility] Hemoglobin (Bld) [Mass/Vol] 12.5 g/dL Low 13.0 - 17.0 g/dL [facility] Interpretation and review of laboratory results Abnormal [facility] Lymphocytes (Bld) [#/Vol] 1.4 10*3/uL [facility] Lymphocytes/100 WBC (Bld) 21.3 % [facility] MCH (RBC) [Entitic mass] 30.1 pg 27 - 34 pg [facility] MCHC (RBC) [Mass/Vol] 34.0 g/dL 32 - 36 g/dL [facility] MCV (RBC) [Entitic vol] 89 fL 80 - 100 fL [facility] Monocytes (Bld) [#/Vol] 0.6 10*3/uL [facility] Monocytes/100 WBC (Bld) 8.6 % [facility] Neutrophils (Bld) [#/Vol] 4.6 10*3/uL [facility] Neutrophils/100 WBC (Bld) 67.9 % [facility] Platelet mean volume (Bld) [Entitic vol] 8.0 fL 7 - 12 fL [facility] Platelets (Bld) [#/Vol] 205 10*3/uL [facility] RBC (Bld) [#/Vol] 4.14 10*6/uL [facility] WBC corrected for nucl RBC Auto (Bld) [#/Vol] 6.[address] [facility] ECG 12 leadon 04-04-2024 TRAC[facility] Ambulatory Visit Summaryon 0 02-07-2024 Ambulatory [...] Strength 500 mg oral tablet) acetaminophen-hydroco done (Chili 325 mg-5 mg oral tablet) ascorbic acid [...] Urology [address], [place] [address]- Medications What How Much When Instructions Unchanged [...] if questions or concerns Unchanged acetaminophen-hydroco done (Chili 325 mg-5 mg oral tablet) 1 Tablets [...] 49 ye (more content not included)... Normal [facility] Urology Office/Clinic Noteon 02-07-2024 Urology Office/Clinic [...] Urology [address], [place] [address]- Additional Instructions: 1 yr Patient Education Benign [...] tablet, 200 mg= 1 tab(s), Oral, q24hr Chili 325 mg-5 mg oral tablet, 1 tab(s), [...] 1 c (more content not included)... Normal [facility] Comment on above: Result Comment: Elec [...] right total hip replacement Amauri Blair D.O. [facility] Radiology Study observation (narrative) [facility] XR Hip - right 3 ViewsOrdere d By: Charissa Blair on 08-09-2023 [facility] Work Phone: ABO Rh [place] 07-07-2023 [...] Delcid MD on 07/07/2023 11:[address] [facility] XR Pelvis and Hip - right [...] Price Delcid MD on 07/07/2023 11:06 AM [facility] Radiology Study observation (narrative) [facility] XR Pelvis and Hip - right 2 ViewsOrdered By: Price Delcid on 07-07-2023 [facility] Work Phone: CNOVon 04-13-2023 CNOV Office Visit (SPSLUH ) LAWSON VELA ([id number]) 1955 M [facility] Date Time Provider Department 04/13/23 11:00 AM [facility] During your visit today, we recorded [...] a week. 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 [facility] XR lumbar spine 6V w bending on 12-17-2022 XR lumbar spine 6V w bending [facility] Main [place] [address] [place] [address] XRay Report Signed Patient: Lawson Vela MR#: [id number] : 1955 Acct:[id number] Age/Sex: 67 / M ADM Date: 12/17/22 Loc: XD Room: Type: [facility] Attending Dr: Erica MILLER Copies to: [...] Cobian Jr., D.OFabio12/17/2022 3:16 PM Dictation Location: [place] [address] Transcribed By: [facility] 12/17/22 1516 Dictated By: Lenny Cobian Jr, DO 12/17/22 1514 Signed By: 12/17/22 1516 Normal [facility] XR lumbar spine 6V w bending [facility] Poll Everywhere Other XR lumbar spine 6V w bending [facility] Poll Everywhere Other XR lumbar spine 6V w bending [address] [place] [address] [facility] Other XR lumbar spine 6[place] [address] [facility] Other XR lumbar spine 6V w bending XRay Report [facility] Other XR lumbar spine 6V w bending Signed [facility] Other XR lumbar spine 6V w bending Patient: Lawson Vela MR#: [id number] [facility] Other XR lumbar spine 6V w bending : 1955 Acct:[id number] [facility] Other XR lumbar spine 6V w bending Age/Sex: 67 / M ADM Date: 12/17/22 [facility] Other XR lumbar spine 6V w bending Loc: XD Room: Type: [facility] Other XR lumbar spine 6V w bending Attending Dr: Erica MILLER [facility] Other XR lumbar spine 6V w bending Copies to: ANGELA Khan [facility] Other XR lumbar spine 6V w bending Ordering Provider: AURELIANO KhanC [facility] Other XR lumbar spine 6V w bending Date of Service: 12/17/22 [facility] Other XR lumbar spine 6V w bending XR/XR lumbar spine 6V w bending: M54.16 [facility] Other XR lumbar spine 6V w bending LUMBAR SPINE - 6 views [facility] Other XR lumbar spine 6V w bending CLINICAL HISTORY: Right leg pain and numbness that radiates to toes [facility] Other XR lumbar spine 6V w bending COMPARISON: None [facility] Other XR lumbar spine 6V w bending FINDINGS: Vertebral body heights appear maintained. Diffuse endplate and facet joint degenerative [facility] Other XR lumbar spine 6V w bending changes. Mild diffuse disc space narrowing with relative sparing of L5-S1. No pathological motion [facility] Other XR lumbar spine 6V w bending on flexion or extension views. Limited sidebending. [facility] Other XR lumbar spine 6V w bending XR/XR lumbar spine 6V w bending [facility] Other XR lumbar spine 6V w bending IMPRESSION: [facility] Other XR lumbar spine 6V w bending DEGENERATIVE CHANGES OF THE LUMBAR SPINE WITH MILD DIFFUSE DISC SPACE NARROWING WITH RELATIVE [facility] Other XR lumbar spine 6V w bending SPARING OF L5-S1. [facility] Other XR lumbar spine 6V w bending Impression dictated by: Lenny Cobian Jr., DFabioOFabio12/17/2022 3:16 PM [facility] Other XR lumbar spine 6V w bending Dictation Location: [place] [address] [facility] Other XR lumbar spine 6V w bending Transcribed By: ROMY 12/17/22 1516 [facility] Other XR lumbar spine 6V w bending Dictated By: Lenny Cobian Jr, DO 12/17/22 5360 [facility] Other XR lumbar spine 6V w bending Signed By: [facility] Other XR lumbar spine 6V w bending 12/17/22 8436 [facility] Other XR HIPS TRENT 3_4V WO PELVISon [...] KNAPP Date: 2022-11-13 13:07 Normal [facility] MRI Lumbar Spine w/oon 05-01 MRI Lumbar [...] by YASMANY ARAYA on 05/01/2022 1217 Normal [facility] XR Orbits for MRIon 04-27-20 XR Orbits for MRI CLINICAL HISTORY: Prescreening for MRI. COMPARISON: None. RESULT: No radiopaque foreign bodies. No acute osseous findings. IMPRESSION: No radiopaque foreign bodies. Report reported and signed by Javad Dickens on 04/27/2022 1540 Normal [facility] XR Spine Lumbar 4+ Views*on 04-06-2022 [...] by Lenny Cook on 04/06/2022 1106 Normal [facility] Specialist Vital Signs Date Time Vital Sign Value Performing Clinician Facility 11-29-2024 11:33-0400 Body height 185.4 cm Alma Hemmer PA Work Phone: [facility] 11-29-2024 11:33-0400 Body mass index (BMI) [Ratio] 38.39 kg/m2 Alma Hemmer PA Work Phone: [facility] 11-29-2024 11:33-0400 Body weight 132 kg Alma Hemmer PA Work Phone: [facility] 11-29-2024 11:33-0400 Diastolic blood pressure 80 mm[Hg] Alma Hemmer PA Work Phone: [facility] 11-29-2024 11:33-0400 Heart rate 81 /min Alma Hemmer PA Work Phone: [facility] 11-29-2024 11:33-0400 Respiratory rate 16 /min Alma Hemmer PA Work Phone: [facility] 11-29-2024 11:33-0400 SaO2% (BldA) [Mass fraction] 96 % Alma Hemmer PA Work Phone: [facility] 11-29-2024 11:33-0400 Systolic blood pressure 136 mm[Hg] Alma Hemmer PA Work Phone: [facility] 10-25-2024 10:57-0400 Body height 185.4 cm Javad Donato MD Work Phone: [facility] 10-25-2024 10:57-0400 Body mass index (BMI) [Ratio] 38.52 kg/m2 Javad Donato MD Work Phone: [facility] 10-25-2024 10:57-0400 Body weight 132.45 kg Javad Donato MD Work Phone: [facility] 10-25-2024 10:57-0400 Diastolic blood pressure 76 mm[Hg] Javad Donato MD Work Phone: [facility] 10-25-2024 10:57-0400 Heart rate 82 /min Javad Donato MD Work Phone: [facility] 10-25-2024 10:57-0400 SaO2% (BldA) [Mass fraction] 95 % Javad Donato MD Work Phone: [facility] 10-25-2024 10:57-0400 Systolic blood pressure 130 mm[Hg] Javad Donato MD Work Phone: [facility] 07-27-2024 10:26-0500 Body height 185.4 cm Alma Hemmer PA Work Phone: [facility] 07-27-2024 10:26-0500 Body mass index (BMI) [Ratio] 38.34 kg/m2 Alma Hemmer PA Work Phone: [facility] 07-27-2024 10:26-0500 Body temperature 97.5 [degF] Alma Hemmer PA Work Phone: [facility] 07-27-2024 10:26-0500 Body weight 131.81 kg Alma Hemmer PA Work Phone: [facility] 07-27-2024 10:26-0500 Diastolic blood pressure 74 mm[Hg] Alma Hemmer PA Work Phone: [facility] 07-27-2024 10:26-0500 Heart rate 88 /min Alma Hemmer PA Work Phone: [facility] 07-27-2024 10:26-0500 Respiratory rate 18 /min Alma Hemmer PA Work Phone: [facility] 07-27-2024 10:26-0500 SaO2% (BldA) [Mass fraction] 95 % Alma Hemmer PA Work Phone: [facility] 07-27-2024 10:26-0500 Systolic blood pressure 128 mm[Hg] Alma Hemmer PA Work Phone: [facility] 06-14-2024 09:36-0500 Body height 185.4 cm Javad Donato MD Work Phone: [facility] 06-14-2024 09:36-0500 Body mass index (BMI) [Ratio] 37.6 kg/m2 Javad Donato MD Work Phone: [facility] 06-14-2024 09:36-0500 Body weight 129.28 kg Javad Donato MD Work Phone: [facility] 06-14-2024 09:36-0500 Diastolic blood pressure 70 mm[Hg] Javad Donato MD Work Phone: [facility] 06-14-2024 09:36-0500 Heart rate 98 /min Javad Donato MD Work Phone: [facility] 06-14-2024 09:36-0500 SaO2% (BldA) [Mass fraction] 97 % Javad Donato MD Work Phone: [facility] 06-14-2024 09:36-0500 Systolic blood pressure 126 mm[Hg] Javad Donato MD Work Phone: [facility] 04-17-2024 13:49-0400 Body height 185.4 cm Jaavd Donato MD Work Phone: [facility] 04-17-2024 13:49-0400 Body mass index (BMI) [Ratio] 37.6 kg/m2 Javad Donato MD Work Phone: [facility] 04-17-2024 13:49-0400 Body weight 129.28 kg Javad Donato MD Work Phone: [facility] 04-17-2024 13:49-0400 Diastolic blood pressure 68 mm[Hg] Javad Donato MD Work Phone: [facility] 04-17-2024 13:49-0400 Heart rate 96 /min Javad oDnato MD Work Phone: [facility] 04-17-2024 13:49-0400 SaO2% (BldA) [Mass fraction] 98 % Javad Donato MD Work Phone: [facility] 04-17-2024 13:49-0400 Systolic blood pressure 128 mm[Hg] Javad Donato MD Work Phone: [facility] 04-06-2024 11:31-0400 Body height 185.4 cm Charissa Blair DO Work Phone: [facility] 04-06-2024 11:31-0400 Body mass index (BMI) [Ratio] 38.16 kg/m2 Charissa Blair DO Work Phone: [facility] 04-06-2024 11:31-0400 Body weight 131.18 kg Charissa Blair DO Work Phone: [facility] 04-04-2024 09:12-0400 Body height 185.4 cm Pmh 1 [facility] 04-04-2024 09:12-0400 Body mass index (BMI) [Ratio] 37.34 kg/m2 Pm 1 [facility] 04-04-2024 09:12-0400 Body weight 128.37 kg Pmh 1 [facility] 02-17-2024 10:18-0400 Body height 185.4 cm Alma Hemmer PA Work Phone: [facility] 02-17-2024 10:18-0400 Body mass index (BMI) [Ratio] 38.26 kg/m2 Alma Hemmer PA Work Phone: [facility] 02-17-2024 10:18-0400 Body weight 131.54 kg Alma Hemmer PA Work Phone: [facility] 02-17-2024 10:18-0400 Diastolic blood pressure 78 mm[Hg] Alma Hemmer PA Work Phone: [facility] 02-17-2024 10:18-0400 Heart rate 82 /min Alma Hemmer PA Work Phone: [facility] 02-17-2024 10:18-0400 SaO2% (BldA) [Mass fraction] 96 % Alma Hemmer PA Work Phone: [facility] 02-17-2024 10:18-0400 Systolic blood pressure 136 mm[Hg] Alma Hemmer PA Work Phone: [facility] 02-07-2024 10:23-0400 Blood Pressure Location Mac SANTIAGO [facility] 02-07-2024 10:23-0400 Body temperature 98.6 [degF] Mac SANTIAGO [facility] 02-07-2024 10:23-0400 Diastolic blood pressure 82 mm[Hg] Mac SANTIAGO [facility] 02-07-2024 10:23-0400 Heart rate 75 /min Mac SANTIAGO [facility] 02-07-2024 10:23-0400 Respiratory rate 16 /min Mac SANTIAGO [facility] 02-07-2024 10:23-0400 Systolic blood pressure 132 mm[Hg] Mac SANTIAGO [facility] 07-07-2023 12:48-0500 Diastolic blood pressure 85 mm[Hg] Charissa Blair DO [facility] 07-07-2023 12:48-0500 Heart rate 88 /min Charissa Blair DO Work Phone: [facility] 07-07-2023 12:48-0500 Respiratory rate 22 /min Charissa Del CidRossy DO Work Phone: [facility] 07-07-2023 12:48-0500 SaO2% (BldA) [Mass fraction] 90 % Charissa Blair DO Work Phone[facility] 07-07-2023 12:48-0500 Systolic blood pressure 134 mm[Hg] Charissa Blair DO Work Phone: [facility] 07-07-2023 10:35-0500 Body temperature 97.3 [degF] Charissa Blair DO Work Phone: [facility] 07-07-2023 06:25-0500 Body height 185.4 cm Charissa Blair DO Work Phone: [facility] 07-07-2023 06:25-0500 Body mass index (BMI) [Ratio] 36.41 kg/m2 Charissa Blair DO Work Phone: [facility] 07-07-2023 06:25-0500 Body weight 125.19 kg Charissa Blair DO Work Phone: [facility] 12-17-2022 13:00-0400 Body height 182.88 cm Erica Xiong Other [facility] Other 12-17-2022 13:00-0400 Body mass index (BMI) [Ratio] 38.51 kg/m2 Erica Xiong Other [facility] 12-17-2022 13:00-0400 Body weight 128.82 kg Erica Xiong Other [facility] 12-17-2022 13:00-0400 Diastolic blood pressure 88 mm[Hg] Erica Xiong Other [facility] 12-17-2022 13:00-0400 Systolic blood pressure 146 mm[Hg] Erica Xiong Other [facility] 06-01-2022 11:29-0500 Blood Pressure Location Mac SANTIAGO [facility] 06-01-2022 11:29-0500 Diastolic blood pressure 76 mm[Hg] Mac SANTIAGO [facility] 06-01-2022 11:29-0500 Heart rate 70 /min Macmichelle SANTIAGO [facility] 06-01-2022 11:29-0500 Respiratory rate 16 /min Mac SANTIAGO [facility] 06-01-2022 11:29-0500 Systolic blood pressure 128 mm[Hg] Macmichelle SANTIAGO [facility] 02-16-2022 10:28-0400 Blood Pressure Location Macmichelle SANTIAGO [facility] 02-16-2022 10:28-0400 Diastolic blood pressure 84 mm[Hg] Macmichelle SANTIAGO [facility] 02-16-2022 10:28-0400 Heart rate 68 /min Macmichelle SANTIAGO [facility] 02-16-2022 10:28-0400 Respiratory rate 16 /min Mac SANTIAGO [facility] 02-16-2022 10:28-0400 Systolic blood pressure 136 mm[Hg] Macmichelle SANTIAGO [facility] Encounters Encounter Date Encounter Type Care Provider Facility Start: 02-08-2026 ambulatory Mac Gentilei ty:[facility] Start: 02-05-2025 End: 02-05-2025 ambulatory Mac SANTIAGO Facility:[facility] Start: 02-05-2025 End: 02-05-2025 Patient encounter [facility] Start: 11-29-2024 End: 11-29-2024 Bamboo flowsheet [...] 11-27-2024 End: 11-27-2024 ambulatory Lidia Fletcher MD Facility:[facility] Start: 11-06-2024 End: 11-06-2024 ambulatory Lidia Fletcher MD Facility:[facility] Start: 10-30-2024 End: 10-30-2024 Bamboo flowsheet Jose Hernández NP Work Phone: [facility] Start: 10-30-2024 End: 10-30-2024 Bamboo flowsheet Jose Hernández TRAVELING ENGINEER Work Phone: [facility] Start: 10-30-2024 [...] 07-31-2024 End: 07-31-2024 Bamboo flowsheet Jose Hernández TRAVELING ENGINEER Work Phone: [facility] Start: 07-31-2024 End: 07-31-2024 Bamboo flowsheet Jose Hernández TRAVELING ENGINEER Work Phone: [facility] Start: 07-31-2024 End: 07-31-2024 Postop follow up visit related to original px Jose Hernández TRAVELING ENGINEER Work Phone: [facility] Comment on [...] Start: 07-21-2024 End: 07-21-2024 ambulatory Jeanna Mendiola BED AND BREAKFAST OPERATOR Work Phone: [facility] Comment on above: Left hip pain (Prima ry Dx); S/P total left hip arthroplasty Start: 07-14-2024 End: 07-14-2024 ambulatory Jeanna Mendiola BED AND BREAKFAST OPERATOR Work Phone: [facility] Comment on above: Left hip pain (Prima ry Dx); S/P total left hip arthroplasty Start: 07-12-2024 End: 07-12-2024 Bamboo flowshector Mendiola BED AND BREAKFAST OPERATOR Work Phone: [facility] Start: 07-12-2024 End: 07-12-2024 Bamboo flowsheet Jeanna Mendiola BED AND BREAKFAST OPERATOR Work Phone: [facility] Start: 07-12-2024 End: 07-12-2024 ambulatory Jeanna Mendiola BED AND BREAKFAST OPERATOR Work Phone: [facility] Comment on above: Left hip pain (Prima ry Dx); S/P total left hip arthroplasty Start: 07-07-2024 End: 07-07-2024 Bamboo flowsheet Jeanna Mendiola BED AND BREAKFAST OPERATOR Work Phone: [facility] Start: 07-07-2024 End: 07-07-2024 Bamboo flowsheet Jeanna Mendiola BED AND BREAKFAST OPERATOR Work Phone: [facility] Start: 07-07-2024 End: 07-07-2024 ambulatory Jeanna Mendiola BED AND BREAKFAST OPERATOR Work Phone: [facility] Comment on above: Left hip pain (Prima ry Dx); S/P total left hip arthroplasty Start: 07-06-2024 End: 07-06-2024 ambulatory YOSEF CHEEMA Not Available Start: 07-05-2024 End: 07-05-2024 ambulatory Jeanna Mendiola BED AND BREAKFAST OPERATOR Work Phone: [facility] Comment on above: Left hip pain (Prima ry Dx); S/P total left hip arthroplasty Start: 07-03-2024 End: 07-03-2024 Bamboo flowsheet Jose Hernández TRAVELING ENGINEER Work Phone: [facility] Start: 07-03-2024 End: 07-03-2024 Bamboo flowshector Hernández TRAVELING ENGINEER Work Phone: [facility] Start: 07-03-2024 End: 07-03-2024 Postop follow up visit related to original px Jose Hernández TRAVELING ENGINEER Work Phone: [facility] Comment on above: S/P total left hip a rthroplasty (Primary Dx) Start: 07-03-2024 End: 07-03-2024 ambulatory JOSE HERNÁNDEZ Not Available Start: 06-30-2024 End: 06-30-2024 Bamboo flowsheet Jeanna Mendiola BED AND BREAKFAST OPERATOR Work Phone: [facility] Start: 06-30-2024 End: 06-30-2024 Bamboo flowsheet Jeanna Mendiola BED AND BREAKFAST OPERATOR Work Phone: [facility] Start: 06-30-2024 End: 06-30-2024 ambulatory Jeanna Mendiola BED AND BREAKFAST OPERATOR Work Phone: [facility] Comment on above: Left hip pain (Prima ry Dx); S/P total left hip arthroplasty Start: 06-26-2024 End: 06-26-2024 Bamboo flowsheet Kailey Goldman BED AND BREAKFAST OPERATOR [facility] Start: 06-26-2024 End: 06-26-2024 Bamboo flowsheet Kailey Goldman BED AND BREAKFAST OPERATOR [facility] Start: 06-26-2024 End: 06-26-2024 ambulatory Kailey Goldman BED AND BREAKFAST OPERATOR [facility] Comment on above: Left hip pain (Prima ry Dx); S/P total left hip arthroplasty Start: 06-22-2024 End: 06-22-2024 ambulatory JAVAD DONATO Not Available Start: 06-20-2024 End: 06-20-2024 Bamboo flowsheet Nagi Snow Narenrda PT Work Phone: [facility] Start: [...] 06-12-2024 End: 06-12-2024 Bamboo flowsheet Jose Hernández TRAVELING ENGINEER Work Phone: [facility] Start: 06-12-2024 End: 06-12-2024 Bamboo flowsheet Jose Hernández TRAVELING ENGINEER Work Phone: [facility] Start: 06-12-2024 End: 06-12-2024 Postop follow up visit related to original px Jose Hernández TRAVELING ENGINEER Work Phone: [facility] Comment on above: S/P total left hip a rthroplasty (Primary Dx); Left hip pain Start: 06-12-2024 End: 06-12-2024 ambulatory JOSE HERNÁNDEZ Not Available Start: 05-16-2024 End: 05-16-2024 Bamboo flowsheet Charissa Blair DO Work Phone: [facility] Start: 05-16-2024 End: 05-16-2024 Bamboo flowsheet Charissa Blair DO Work Phone: [facility] Start: 05-16-2024 End: 05-16-2024 Postop follow up visit related to original px Charissa Blair DO Work Phone: [facility] Comment on above: S/P total [...] 05-08-2024 End: 05-08-2024 Telephone encounter Jose Hernández TRAVELING ENGINEER Work Phone: [facility] Start: 05-04-2024 End: 05-04-2024 Telephone encounter Charissa Blair DO Work Phone: [facility] Comment on above: Discharge Start: 05-03-2024 End: 05-03-[address] [facility] Start: 05-02-2024 End: 05-02-2024 Refill Jose Hernández TRAVELING ENGINEER Work Phone: [facility] Comment on [...] 04-06-2024 End: 04-06-2024 Bamboo flowsheet Jose Hernández TRAVELING ENGINEER Work Phone: [facility] Start: 04-06-2024 End: 04-06-2024 Bamboo flowsheet Jose Hernández TRAVELING ENGINEER Work Phone: [facility] Start: 04-06-2024 End: 04-06-2024 Office outpatient visit 40 minutes Charissa Blair DO Work Phone: [facility] Comment on above: Left hip pain; Arthritis of left hip Start: 04-06-2024 End: 04-06-2024 ambulatory CHARISSA BLAIR Not Available Start: 04-04-2024 End: 04-04-2024 Patient encounter procedure [facility] Pre-Admission Testing 1 [facility] - Pre Admit Comment on above: Preop examination (P rimary Dx); Hypertension, unspecified type Start: 04-04-2024 End: 04-04-2024 Preprocedural examination done [facility] 1 [facility] Start: 04-04-2024 End: 04-04-2024 ambulatory [facility] Start: 03-15-2024 End: 03-15-2024 Telephone encounter Nagi Plata PT Work Phone: [facility] Start: 02-17-2024 End: 02-17-2024 Office outpatient visit 15 minutes Alma Mcclendon PA Work Phone: [facility] Comment on above: Acute pharyngitis, u nspecified etiology (Primary Dx) Start: 02-17-2024 End: 02-17-2024 ambulatory ALMA MCCLENDON Not Available Start: 02-07-2024 End: 02-07-2024 ambulatory Mac SANTIAGO Facility:[facility] Start: 02-07-2024 End: 02-07-2024 Patient encounter procedure Mac SANTIAGO [facility] Start: 01-27-2024 End: 01-27-2024 ambulatory CHARISSA BLAIR Not Available Start: 01-21-2024 End: 01-21-2024 ambulatory ALMA MCCLENDON Not Available Start: 12-16-2023 End: 12-16-2023 ambulatory CHARISSA LBAIR Not Available Start: 12-13-2023 End: 12-13-2023 ambulatory JOSE HERNÁNDEZ Not Available Start: 08-09-2023 Bamboo flowsheet Jeanna Janetig ht BED AND BREAKFAST OPERATOR Work Phone: [facility] Start: 08-09-2023 Bamboo flowsheet Jeanna Wrig ht BED AND BREAKFAST OPERATOR Work Phone: [facility] Start: 08-09-2023 End: 08-09-2023 Postop follow up visit related to original px Jose Hernández TRAVELING ENGINEER Work Phone: [facility] Comment on above: 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; Status post right hip replacement Start: 08-09-2023 End: 08-09-2023 ambulatory Jeanna Mendiola BED AND BREAKFAST OPERATOR Work Phone: [facility] Comment on above: Right hip pain (Prim billie Dx); Status post total hip replacement, right; Arthritis of right hip Start: 08-06-2023 End: 08-06-2023 ambulatory Jeanna Mendiola BED AND BREAKFAST OPERATOR Work Phone: [facility] Comment on above: Right hip pain (Prim billie Dx); Status post total hip replacement, right; Arthritis of right hip Start: 08-02-2023 Bamboo flowsheet Jeanna Janetig ht BED AND BREAKFAST OPERATOR Work Phone: [facility] Start: 08-02-2023 Bamboo flowsheet Jeanna Wrig ht BED AND BREAKFAST OPERATOR Work Phone: [facility] Start: 08-02-2023 End: 08-02-2023 ambulatory Jeanna Mendiola BED AND BREAKFAST OPERATOR Work Phone: [facility] Comment on above: Right hip pain (Prim billie Dx); Status post total hip replacement, right; Arthritis of right hip Start: 07-29-2023 End: 07-29-2023 ambulatory Nagi Plata PT Work Phone: [facility] Comment on above: Right hip pain (Prim billie Dx); Status post total hip replacement, right Start: 07-08-2023 End: 07-08-[address] [facility] Start: 07-07-2023 End: 07-08-2023 ambulatory [facility] Start: 07-07-2023 End: 07-07-2023 ambulatory [facility] Start: 07-07-2023 End: 07-07-2023 Subsequent hospital visit by physician Cahrissa Blair DO Work Phone: [facility] Start: 07-05-2023 End: 07-05-2023 ambulatory [facility] Start: 07-05-2023 Encounter for other preprocedural examination [facility] Start: 04-13-2023 End: 04-13-2023 ambulatory [facility]ILA LE[facility] Start: 04-13-2023 End: 04-13-2023 Patient encounter procedure Laila Lewis PA-C Work Phone: [facility] [place] Comment on above: Spinal stenosis, lum bar region with neurogenic claudication (Primary Dx); Bilateral hip joint arthritis Start: 01-28-2023 Chart abstracting Camron Mix MD Work Phone: Neurology Start: 12-17-2022 End: 12-17-2022 Patient encounter procedure II Javad Donato Work Phone: [facility] Work Phone: Start: 12-17-2022 End: 12-17-2022 ambulatory II Javad Donato Work Phone: [facility] Work Phone: Start: 12-17-2022 Encounter for other specified special examinations Erica Xiong [facility] Neurosurgery Start: 12-17-2022 Office outpatient ne w 45 minutes Erica Xiong [facility] Neurosurgery Start: 11-24-2022 End: 11-25-2022 ambulatory NARENDRANATH LAKSHMIPATHY . Facility:[facility] Start: 11-13-2022 End: 11-14-2022 ambulatory NARENDRANATH LAKSHMIPATHY . Facility:[facility] Start: 11-10-2022 End: 11-11-2022 ambulatory NARENDRANATH LAKSHMIPATHY . Facility:[facility] Start: 10-08-2022 End: 10-09-2022 ambulatory NARENDRANATH LAKSHMIPATHY . Facility:[facility] Start: 09-10-2022 End: 09-11-[address] ANTIONE HAWTHORNE . Facility:[facility] Start: 08-13-2022 Encounter for preprocedural cardiovascular examination DR ANTIONE HAWTHORNE . [facility] Start: 08-11-2022 End: 08-11-2022 ambulatory [...] encounter procedure Mac SANTIAGO [facility] Start: 05-19-2022 End: 05-20-[address] ANTINOE HAWTHORNE . Facility:[facility] Start: 05-05-2022 End: 11-08-[address] ANTIONE HAWTHORNE . Facility:[facility] Start: 04-28-2022 End: 04-29-[address] ANTIONE HAWTHORNE . Facility:[facility] Start: 04-27-2022 End: 05-14-[address] JAVAD DONATO Facility:[facility] Start: 02-16-2022 End: 02-16-2022 Patient encounter procedure Mac SANTIAGO [facility] Procedures Date Procedure Procedure Detail Performing Clinician Start: 10-30-2024 Radex hip unilateral with pelvis 2-3 views Jose Hernández NP Work Phone: Start: 10-25-2024 Hemoglobin glycosyla angeles a1c Javad Donato MD Work Phone: Start: 06-12-2024 Radex hip unilateral with pelvis 2-3 views Jose Hernández TRAVELING ENGINEER Work Phone: Start: 04-06-2024 Radex hip unilateral with pelvis 2-3 views Charissa Blair DO Work Phone: Start: 08-09-2023 Radex hip unilateral with pelvis 2-3 views Jose Hernández TRAVELING ENGINEER Work Phone: Start: 07-07-2023 Radex hip unilateral [...] Td Vaccines (2 - Td or Tdap) [facility] Start: 07-12-2027 Screening for malign ant neoplasm of colon [facility] Start: 06-14-2025 Medicare Annual Wellness (AWV) Medicare Annual Wellness (AWV) [facility] Start: 04-30-2025 End: 04-30-2025 Patient encounter procedure 04/30/2025 8:00 AM EST Office Visit [facility] [address] [facility] [place] [phone] Jose Hernández, TRAVELING ENGINEER [address] [facility] [place] [address] [facility] Start: 04-26-2025 End: 04-26-2025 Patient encounter procedure 04/26/2025 9:00 AM EDT Office Visit [facility] [address] [facility] [address] [place] [phone] Javad Donato MD [address] [facility] [address] [place] [address] [facility] Start: 04-04-2025 Adult BMI Screening Adult BMI Screen ing [facility] Start: 04-04-2025 Tobacco Screening Tobacco Screening [facility] Start: 11-29-2024 End: 11-29-2024 Patient encounter procedure [facility] Comment on above: Arrived Start: 10-30-2024 End: 10-30-2024 Patient encounter procedure [facility] Comment on above: Left hip pain Start: 10-25-2024 End: 10-25-2024 Patient encounter procedure 10/25/2024 10:45 AM EDT Office Visit [facility] [address] [place] [address] Javad Donato MD [address] [place] [address] Arrived [facility] Comment on above: Arrived Start: 10-23-2024 End: 10-23-2024 Patient encounter procedure 10/23/2024 10:00 AM EDT Office Visit [facility] [address] [place] [address] Javad Donato MD [address] [place] [address] [facility] Start: 07-31-2024 End: 07-31-2024 Patient encounter procedure [facility] Comment on above: Arrived Start: 07-27-2024 End: 07-27-2024 Patient encounter procedure 07/27/2024 10:30 AM EST Office Visit [facility] [address] [place] [address] Alma Mcclendon, PA [address] [place] [address] Arrived [facility] Comment on above: Arrived Start: 07-21-2024 End: 07-21-2024 ambulatory 07/21/2024 7:30 AM EST Treatment [facility] [address] [place] [phone] Jeanna Mendiola, BED AND BREAKFAST OPERATOR [address] [place] [address] [facility] Start: 07-14-2024 End: 07-14-2024 ambulatory [facility] Start: 07-12-2024 End: 07-12-2024 ambulatory [facility] Comment on above: Arrived Start: 07-07-2024 End: 07-07-2024 ambulatory 07/07/2024 7:30 AM EST Treatment [facility] [address] [place] [phone] Jeanna Mendiola, BED AND BREAKFAST OPERATOR [address] [place] [address] [facility] Start: 07-06-2024 End: 07-06-2024 Professional / ancillary services management 07/06/2024 8:00 AM EST Ancillary Procedure [facility] [address] [place] [phone] [facility] Start: 07-05-2024 End: 07-05-2024 ambulatory 07/05/2024 7:30 AM EST Treatment [facility] [address] [place] [address] Jeanna Mendiola, BED AND BREAKFAST OPERATOR [address] [place] [address] [facility] Start: 07-03-2024 End: 07-03-2024 Patient encounter procedure [facility] Comment on above: Arrived Start: 06-30-2024 End: 06-30-2024 ambulatory [facility] Comment on above: Arrived Start: 06-29-2024 End: 06-29-2024 ambulatory 06/29/2024 7:30 AM EST Treatment [facility] [address] [facility] [address] [place] [address] Kailey Goldman, BED AND BREAKFAST OPERATOR [facility] Start: 06-26-2024 End: 06-26-2024 ambulatory [facility] Comment on above: Arrived Start: 06-22-2024 End: 06-22-2024 Professional / ancillary services management 06/22/2024 3:15 PM EST Ancillary Procedure [facility] [address] [place] [phone] [facility] Start: 06-20-2024 End: 06-20-2024 ambulatory 06/20/2024 7:00 AM EST Evaluation [facility] [address] [place] [address] Nagi Plata, PT [address] [place] [address] JANEL PEREIRA PT Start: 06-14-2024 End: 06-14-2025 CBC panel - Blood by Automated count CBC Lab Routine Benign essential hypertension (CMS/HCC) IGT (impaired glucose tolerance) Atherosclerosis of aorta (CMS/HCC) Class 2 severe obesity with serious comorbidity and body mass index (BMI) of 37.0 to 37.9 in adult, unspecified obesity type (CMS/HCC) Expected: 06/14/2024 (Approximate), Expires: 06/14/2025 [facility] Comment on above: Expected: [...] type (CMS/HCC) Expected: 06/14/2024 (Approximate), Expires: 06/14/2025 [facility] Comment on above: Expected: 06/14/2024 (Approximate), Expires: 06/14/2025 Start: 06-14-2024 End: 06-14-2025 Hemoglobin A1c/Hemoglobin.total in Blood Hemoglobin A1c Lab Routine Benign essential hypertension (CMS/HCC) IGT (impaired glucose tolerance) Atherosclerosis of aorta (CMS/HCC) Class 2 severe obesity with serious comorbidity and body mass index (BMI) of 37.0 to 37.9 in adult, unspecified obesity type (CMS/HCC) Expected: 06/14/2024 (Approximate), Expires: 06/14/2025 [facility] Comment on above: Expected: 06/14/2024 (Approximate), Expires: 06/14/2025 Start: 06-14-2024 End: 06-14-2025 Lipid 1996 panel - Serum or Plasma Lipid panel Lab Routine Benign essential hypertension (CMS/HCC) IGT (impaired glucose tolerance) Atherosclerosis of aorta (CMS/HCC) Class 2 severe obesity with serious comorbidity and body mass index (BMI) of 37.0 to 37.9 in adult, unspecified obesity type ([facility]/HCC) Expected: 06/14/2024 (Approximate), Expires: 06/14/2025 [facility] Comment on above: Expected: 06/14/2024 [...] extremity arterial duplex bilateral Imaging Routine Claudication ([facility]) Expected: 06/14/2024, Expires: 06/14/2025 [facility] Healthcare [...] [facility] [address] [place] [address] Charissa Blair, [address] [facility] [address] [place] [address] [facility] Start: 05-09-2024 End: 05-09-2024 Patient encounter procedure 05/09/2024 10:30 AM EST Office Visit [facility] [address] [facility] [address] [place] [address] Charissa Blair, DO [address] [facility] [address] [place] [address] [facility] Start: 05-03-2024 End: 05-03-2024 Admission to same day surgery center 05/03/2024 7:45 AM EST - 05/03/2024 10:00 AM EST Surgery [facility] - Surgery [address] [place] [address] Charissa Blair, DO [address] [facility] [address] [place] [address] REPLACEMENT TOTAL JOINT HIP [65533 (CPT )] [facility] Comment on above: REPLACEMENT TOTAL BEKA INT HIP [39748 (CPT )] Start: 05-03-2024 End: 05-03-2024 Arthrp acetblr/prox fem prostc agrft/algrft REPLACEMENT TOTAL JOINT HIP left hip degenerative joint disease 05/03/2024 7:45 AM EST [facility] Start: 05-03-2024 Subsequent hospital visit by physician 05/03/2024 7:45 AM EST Hospital Encounter [facility] [address] [place] [phone] Charissa Blair, DO [address] [facility] [address] [place] [address] [facility] Start: 05-03-2024 End: 05-03-2024 Patient encounter procedure 05/03/2024 7:30 AM EST Procedure Visit [facility] Charissa Blair, DO [address] [facility] [address] [place] [address] [facility] Start: 04-24-2024 End: 03-06-2025 Crossmatch RBC Crossmatch RBC Blood Bank Routine Preop examination Hypertension, unspecified type Expected: 04/24/2024, Expires: 03/06/2025 [facility] Comment on above: Expected: 04/24/2024 , Expires: 03/06/2025 Start: 04-24-2024 End: 03-06-2025 Type and screen(includes indirect phill) Type and screen(includes indirect phill) Blood Bank Routine Preop examination Hypertension, unspecified type Expected: 04/24/2024, Expires: 03/06/2025 [facility] [employer] Work Phone: Comment on above: Expected: 04/24/2024 , Expires: 03/06/2025 Start: 04-17-2024 End: 04-17-2024 Patient encounter procedure [facility] Comment on above: Arrived Start: 04-06-2024 End: 04-06-2024 Patient encounter procedure [facility] Comment on above: Left hip pain; Arthritis of left hip Start: 03-08-2024 End: 03-08-2024 Patient encounter procedure 03/08/2024 11:15 AM EDT Office Visit [facility] [address] [facility] [address] [place] [phone] Javad Donato MD [address] [facility] [address] [place] [address] [facility] Start: 02-27-2024 Influenza vaccination N [facility] Start: 09-20-2023 End: 09-20-2023 Patient encounter procedure 09/20/2023 10:30 AM EDT Office Visit [facility] [address] [place] [phone] Jose Hernández, TRAVELING ENGINEER [address] [place] [place], [place] [phone] [facility] Start: 08-27-2023 End: 08-27-2023 ambulatory 08/27/2023 9:30 AM EST Treatment [facility] [address] [place] [phone] Nagi Plata, PT [address] [place] [address] [facility] Start: 08-23-2023 End: 08-23-2023 ambulatory 08/23/2023 9:30 AM EST Treatment [facility] [address] [place] [phone] Jeanna Mendiola, BED AND BREAKFAST OPERATOR [address] [place] [address] [facility] Start: 08-20-2023 End: 08-20-2023 ambulatory 08/20/2023 9:30 AM EST Treatment [facility] [address] [place] [phone] Jeanna Mendiola, BED AND BREAKFAST OPERATOR [address] [place] [address] [facility] Start: 08-16-2023 End: 08-16-2023 ambulatory 08/16/2023 9:30 AM EST Treatment [facility] [address] [place] [phone] Jeanna Mendiola, BED AND BREAKFAST OPERATOR [address] [place] [address] [facility] Start: 08-13-2023 End: 08-13-2023 ambulatory 08/13/2023 9:30 AM EST Treatment [facility] [address] [place] [phone] Nagi Plata, PT [address] [place] [address] [facility] Start: 08-09-2023 End: 08-09-2023 Patient encounter procedure 08/09/2023 1:00 PM EST Office Visit [facility] [address] [place] [phone] Jose Hernández, TRAVELING ENGINEER [address] [place] [address] [facility] Start: 08-09-2023 End: 08-09-2023 ambulatory [facility] Comment on above: Arrived Start: 08-06-2023 End: 08-06-2023 ambulatory 08/06/2023 9:30 AM EST Treatment [facility] [address] [place] [address] Jeanna Mendiola, BED AND BREAKFAST OPERATOR [address] [place] [address] [facility] Start: 08-02-2023 End: 08-02-2023 ambulatory [facility] Comment on above: Arrived Start: 02-26-2023 Influenza vaccination [facility] Start: 06-28-2022 ADVANCE DIRECTIVE DISCUSSION ADVANCE DIRECTIVE DISCUSSION [facility] Start: 06-28-2022 DEPRESSION ASSESSMENT DEPRESSION ASS ESSMENT [facility] Start: 2019 Abdominal aortic aneurysm screening Abdominal Aortic Aneurysm (AAA) Screen [facility] Start: 2019 Fall Risk Screening Fall Risk Screen ing [facility] Start: 2019 PNEUMOCOCCAL: 65+ (1 - PCV) PNEUMOCOCCAL: 65+ (1 - PCV) [facility] Start: 07-08-2015 Administration of varicella zoster vaccine Zoster (Shingles) Vaccine (2 of 3) [facility] Start: 07-08-2015 Shingrix Vaccine (2 of 3) Shingrix Vaccine (2 of 3) [facility] Start: 2014 RSV Vaccine (1 - 1-d ose 60+ series) RSV Vaccine (1 - 1-dose 60+ series) [facility] Start: 01-02-2004 SHINGRIX VACCINE (1 of 2) SHINGRIX VACCINE (1 of 2) [facility] Start: 1999 COLOGUARD (FIT-DNA) COLOGUARD (FIT-D NA) [facility] Start: 1999 Colonoscopy COLONOSCOPY [facility] Start: 1999 COLORECTAL CANCER SCREENING COLORECTAL CANCER SCREENING [facility] Start: [address] COLONOGRAPHY [facility] Start: 1999 DIABETES SCREEN DIABETES SCREEN [facility] Start: 1999 Diabetes Screening Diabetes Screenin g [facility] Start: 1999 FECAL OCCULT BLOOD FECAL OCCULT BLOO D [facility] Start: 1999 SIGMOIDOSCOPY SIGMOIDOSCOPY [facility] Start: 1989 Lipid 1996 panel - Serum or Plasma Lipid Screening [facility] Start: 1989 LIPID SCREEN LIPID SCREEN [facility] Start: 1973 Urine microalbumin profile [facility] Start: 01-02-1972 Adult BMI Follow Up Plan Adult BMI Follow Up Plan [facility] Start: 01-02-1972 HEPATITIS C SCREENING HEPATITIS C SC REENING [facility] Start: 1966 Depression Screening Depression Scre ening [facility] Start: 1954 COVID-19 VACCINE (#1) COVID-19 VACCI NE (#1) [facility] Start: 1954 Abdominal Aortic Aneurysm Screening Abdominal Aortic Aneurysm Screening [facility] Start: 1954 Medicare Annual Wellness Visit Medicare Annual Wellness Visit [facility] Start: 1954 Screening for malign ant neoplasm of colon [facility] End: 05-12-2024 XR HIP BILATERAL 5V PEL/AP/LAT EACH HIP XR HIP BILATERAL 5V PEL/AP/LAT EACH HIP Radiology Routine Bilateral hip joint arthritis 1 Occurrences starting 04/13/2023 until 05/12/2024 [facility] Work Phone: Comment on above: 1 Occurrences starti ng 04/13/2023 until 05/12/[facility] Immunization Date Immunization Notes Care Provider Fa [facility] 06-14-2024 influenza virus vaccine, unspecified formulation Mac SANTIAGO [facility] 06-14-2024 Influenza, High-dose Seasonal, Quadrivalent, Preservative Free Javad Donato MD Work Phone: [facility] 05-18-2023 RSV vaccine preF3, recombinant Mac SANTIAGO [facility] 05-18-2023 RSV, recombinant, protein subunit RSVpreF, adjuvant reconstitu, 120mcg/0.5mL, PF (Arexvy) Nagi Narendra PT Work Phone: [facility] Work Phone: 05-18-2023 tetanus toxoid, redu sri diphtheria toxoid, and acellular pertussis vaccine, adsorbed Nagi Narendra PT Work Phone: [facility] 05-17-2023 Influenza, High-dose Seasonal, Quadrivalent, Preservative Free Nagi Narendra PT Work Phone: [facility] 05-17-2023 influenza virus vaccine, unspecified formulation Nagi Narendra PT Work Phone: [facility] 04-03-2022 influenza, high dose seasonal, preservative-free Nagi Narendra PT Work Phone: [facility] 04-03-2022 Influenza, High-dose Seasonal, Quadrivalent, Preservative Free Nagi Narendra PT Work Phone: [facility] 04-03-2022 influenza virus vaccine, unspecified formulation Laila Lewis PA-C Work Phone: [facility] 05-21-2020 influenza virus vaccine, unspecified formulation Mac SANTIAGO [facility] 05-21-2020 influenza, injectabl e, quadrivalent, contains preservative Nagi Narendra PT Work Phone: [facility] 05-21-2020 pneumococcal conjuga te vaccine, 13 valent Nagi Narendra PT Work Phone: [facility] 04-10-2020 influenza virus vaccine, unspecified formulation Mac SANTIAGO [facility] 05-03-2019 influenza virus vaccine, unspecified formulation Mac SANTIAGO [facility] 05-03-2019 influenza, injectabl e, madin sancho canine kidney, preservative free Nagi Narendra PT Work Phone: [facility] 05-03-2019 pneumococcal polysaccharide vaccine, 23 valent Nagi Narendra PT Work Phone: [facility] 05-02-2018 influenza virus vaccine, unspecified formulation Mac SANTIAGO [facility] 05-02-2018 seasonal influenza, intradermal, preservative free Nagi Narendra PT Work Phone: [facility] 06-07-2017 influenza virus vaccine, unspecified formulation Mac SANTIAGO [facility] 06-07-2017 influenza, injectabl e, quadrivalent, contains preservative Nagi Narendra PT Work Phone: [facility] [facility] 05[facility]13[facility]2015 zoster vaccine, live Nagi Sp collado PT Work Phone: [facility] 05-13-2015 zoster vaccine, unspecified formulation Pmh 1 [facility] NEGATED: Highlighted row has not occurred!08-18-2021 SARS-CoV-2 (COVID-19) Ad26 vaccine, recombinant Mac SANTIAGO [facility] Payers Date Payer Category Payer Self-pay 2021 Private Health Insurance [id number] 2019 Unknown [id number] 2018 Medicare [id number] 1959 Medicare [id number] 1959 Unknown [id number] 1954 Unknown [id number] 2.16.84 0.1.168139.3.579.2.593 1954 Unknown [id number] 2.16.84 0.1.273037.3.579.2.593 1954 Unknown [id number] 2.16.84 0.1.005535.3.579.2.593 1954 Unknown [id number] 2.16.84 0.1.169740.3.579.2.593 1954 Unknown [id number] 2.16.84 0.1.247110.3.579.2.593 1954 Unknown [id number] 2.16.84 0.1.323684.3.579.2.593 1954 Unknown [id number] 2.16.84 0.1.410059.3.579.2.593 1954 Unknown [id number] 2.16.84 0.1.501125.3.579.2.593 1954 Unknown [id number] 2.16.84 0.1.416556.3.579.2.593 1954 Unknown [id number] 2.16.84 0.1.898622.3.579.2.593 1954 Unknown [id number] 2.16.84 0.1.983090.3.579.2.593 1954 Unknown [id number] 2.16.84 0.1.229877.3.579.2.593 1954 Unknown [id number] 2.16.84 0.1.869849.3.579.2.593 1954 Unknown [id number] 2.16.84 0.1.596699.3.579.2.593 1954 Unknown [id number] 2.16.84 0.1.538795.3.579.2.593 1954 Unknown [id number] 2.16.8 40.1.751456.3.579.2.1285 1954 Unknown [id number] 2.16.8 40.1.333775.3.579.2.1285 1954 Unknown [id number] 2.16.8 40.1.357641.3.579.2.1285 1954 Unknown [id number] 2.16.8 40.1.411964.3.579.2.1285 1954 Unknown [id number] 2.16.8 40.1.658068.3.579.2.1285 1954 Unknown [id number] 2.16.84 0.1.058568.3.579.2.1285 1954 Unknown [id number] 2.16.84 0.1.388478.3.579.2.1285 1954 Unknown [id number] 2.16.84 0.1.906328.3.579.2.128 1954 Unknown [id number] 2.16.84 0.1.765264.3.579.2.1285 1954 Unknown [id number] 2.16.84 0.1.071098.3.579.2.128 1954 Unknown [id number] 2.16.8 40.1.271288.3.579.2.1258 1954 Unknown [id number] 2.16.84 0.1.596270.3.579.2.1259 1954 Unknown [id number] 2.16.84 0.1.380567.3.579.2.1258 1954 Unknown [id number] 2.16.84 0.1.749717.3.579.2.9 1954 Unknown [id number] 2.16.84 0.1.440305.3.579.2.1258 1954 Unknown [id number] 2.16.84 0.1.086740.3.579.2.125 1954 Unknown [id number] 2.16.84 0.1.474098.3.579.2.1258 1954 Unknown [id number] 2.16.84 0.1.533655.3.579.2.1258 1954 Unknown [id number] 2.16.84 0.1.593017.3.579.2.1258 1954 Unknown [id number] 2.16.84 0.1.435735.3.579.2.1258 1954 Unknown [id number] 2.16.84 0.1.567772.3.579.2.1258 1954 Unknown [id number] 2.16.84 0.1.832446.3.579.2.1258 1954 Unknown [id number] 2.16.84 0.1.459455.3.579.2.1258 1954 Unknown [id number] 2.16.84 0.1.175367.3.579.2.1258 1954 Unknown [id number] 2.16.84 0.1.148972.3.579.2.1258 1954 Unknown [id number] 2.16.84 0.1.707592.3.579.2.1258 1954 Unknown [id number] 2.16.84 0.1.979359.3.579.2.1258 1954 Unknown [id number] 2.16.84 0.1.005588.3.579.2.1258 1954 Unknown [id number] 2.16.84 0.1.564061.3.579.2.1258 1954 Unknown [id number] 2.16.84 0.1.231878.3.579.2.1258 1954 Unknown [id number] 2.16.84 0.1.578523.3.579.2.1259 1954 Unknown [id number] 2.16.84 0.1.137334.3.579.2.1258 1954 Unknown [id number] 2.16.84 0.1.108489.3.579.2.1258 1954 Unknown [id number] 2.16.84 0.1.232829.3.579.2.1258 1954 Unknown [id number] 2.16.84 0.1.253224.3.579.2.125 1954 Unknown [id number] 2.16.84 0.1.658247.3.579.2.1258 1954 Unknown [id number] 2.16.84 0.1.285566.3.579.2.1258 1954 Unknown [id number] 2.16.84 0.1.599741.3.579.2.1258 1954 Unknown [id number] 2.16.84 0.1.148370.3.579.2.1258 1954 Unknown [id number] 2.16.84 0.1.284422.3.579.2.1258 1954 Unknown [id number] 2.16.84 0.1.307656.3.579.2.1258 1954 Unknown [id number] 2.16. 840.1.880590.3.579.2.196 1954 Unknown [id number] 2.16. 840.1.234808.3.579.2.196 1954 Unknown [id number] 2.16.8 40.1.867212.3.579.2.727 1954 Unknown [id number] 2.16.8 40.1.757175.3.579.2.727 1954 Unknown [id number] 2.16.8 40.1.659379.3.579.2.727 Unknown [id number] 2.16.8 40.1.175171.3.579.2.531 Social History Date Type Detail Facility Start: 05-05-2021 End: 02-05-2025 Ex-smoker (finding) [facility] Start: 04-15-2023 End: 05-10-2023 Male [facility] Start: 1955 Sex Assigned At Male [facility] Tobacco smoking stat [facility] Tobacco smoking consumption unknown [facility] Start: 02-02-2023 Gender identity Identifies as male gender (finding) [facility] Start: 02-02-2023 Sexual orientation Heterosexual (finding) [facility] Start: 06-28-1967 End: 09-27-1975 History of tobacco use Current smoker [facility] Work Phone: Start: 06-28-1967 End: 09-27-1975 History of tobacco use Cigarette Smoker [facility] Work Phone: Start: 04-15-2023 End: 05-10-2023 History of Social function [facility] Adult Depression Screening Assessment 1 [facility] Start: 01-11-2023 End: 02-17-2024 Tobacco use and exposure Smokeless tobacco non-user [facility] Start: 07-12-2023 End: 11-29-2024 Alcohol intake Current drinker of alcohol (finding) [facility] Within the last year , have you been afraid of your partner or ex-partner? No [facility] Do you belong to any clubs or organizations such as christianity groups, unions, fraternal or athletic groups, or [...] Start: 05-28-2023 Tobacco Comment [facility] Start: 05-27-2020 Alcohol Comment occasional [facility] Start: 04-04-2024 Alcohol Comment rare [facility] Sexual Orientation [facility] Renetta Sex Male (finding) [facility] Medical Equipment Procedure Code Equipment Code Equipment Origin al Text Equipment Identifier Dates Stem Fem 129d 4 06/10 45.5mm Fitmore Protasul-64 Hip Rgh - [id number] Start: 07-07-2023 Maryann Biomet Femoral Head 36mm [id number] Start: 07-07-2023 Screw Bn 30mm 6. [address]mm [address] Actb Seven Trlg Strl Rpl [id number] 29 - [id number] Start: 07-07-2023 Shell Actb 56mm Hip 4 Hl Clr Cd [place] G7 F Hmsphr - Sna - [id number] Start: 07-07-2023 Liner Actb 36mm F Vivacit-E Lum G7 Hip Strl Lf - [id number] Start: 07-07-2023 Screw Bn 30mm 6. 5[address] St Actb Seven Trlg Strl Rpl [id number] 29 - [id number] Start: 07-07-2023 Screw Bn 30mm 6. 5mm St Actb Seven Trlg Strl Rpl [id number] 29 - [id number] Start: 07-07-2023 Functional Status Date Assessment Result Facility 11-29-2024 Patient Health Quest ionnaire 2 item (PHQ-2) [Reported] [facility] 10-25-2024 Patient Health Quest ionnaire 2 item (PHQ-2) [Reported] [facility] 02-07-2024 Functional Status N/A [facility] 06-01-2022 Functional Status N/A [facility] 02-16-2022 N/A [facility] Clinical Notes 02-16-2022 to 02-05-2025 MARY Mcarthur - 11/29/2024 11:30 AM EDTTelephone En[facility]/28/[facility] 1:37 PM EDTTelephone Encounter [facility] - 11/28/2024 1:37 PM EDTPatient InstructionsAttachments Note [...] your health care provider. General instructions Take vrqz-xit-fjljezb and prescription medicines only as told by [...] provider. Document Revised: 03/03/2021 Document Reviewed: 03/03/2021 [employer] Patient Education 2023 [employer]. Follow Up Care 02/07/2024 11:34:29 With:PAMELA BAER, Mac Stephenson, URL Address: [address] [place] [id number] When: Unknown [facility] 02-05-2025 Note Patient Education Obstetrics and Gynecology [...] health care provider. General instructions ??? Take hwqs-zjr-fvqwbzb and prescription medicines only as told by [...] drink, and whe (more content not included)... [facility] 11-29-2024 History of Present illness Narrative Images [...] mg by mouth in the morning. HYDROcodone-acetaminophen (Chili) 5-325 MG tablet Take 1 tablet by [...] wrist GERD (gastroesophageal reflux disease) HTN (hypertension) ([facility]) Lumbosacral disc disease Osteoarthritis Past [...] follow up with Dr. Omari Tomas, his [place], for further evaluation of the skin between [...] Appointment As Scheduled. documented in this encounter [facility] 11-28-2024 Telephone encounter Note Appt scheduled [facility] 11-28-2024 Miscellaneous Notes Appt scheduled Patient will need an appointment Prednisone 20 mg for a skin irritation. He said that he usually gets this medication. Clotrimazole - betamethasone cream for althetes foot He said he hasn't had these meds in a while and didn't know if he would need an appointment or not [facility] documented in this encounter [facility] 11-27-2024 Telephone encounter Note Patient will need an appointment [facility] 11-27-2024 Telephone encounter Note Prednisone 20 mg for a skin irritation. He said that he usually gets this medication. Clotrimazole - betamethasone cream for althetes foot He said he hasn't had these meds in a while and didn't know if he would need an appointment or not [facility] 10-30-2024 History of Present [...] Orally finasteride (PROSCAR) 5 mg, Daily HYDROcodone-acetaminophen (Chili) 5-325 MG tablet 1 tablet, Oral, Every [...] Unremarkable left total hip arthroplasty. 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 documented in this encounter [facility] 10-25-2024 History of Present [...] day at the same time. [DISCONTINUED] HYDROcodone-acetaminophen (Chili) 5-325 MG tablet Take 1 tablet by [...] LDL-C. Humberto MOORE et al. LULU. 2013;310(19): 3408-9985 (http://education.Alitalia/faq/BJL674) CHOL/HDLC RATIO 06/14/2024 5.4 (H) <5.0 (calc) [...] diagnosis of diabetes in children. According to [place] Diabetes Association (ADA) guidelines, hemoglobin A1c <7.0% represents optimal control in non- diabetic patients. Different metrics may apply to specific patient populations. Standards of Medical Care in Diabetes(ADA). Assessment/Plan Diagnoses and all orders for this visit: Herniated lumbar disc without myelopathy - HYDROcodone-acetaminophen (Chili) 5-325 MG tablet; Take 1 tablet by [...] for Routine F/U. documented in this encounter [facility] 09-25-2024 Telephone encounter Note LM for pt to CB [facility] 09-25-2024 Miscellaneous Notes LM for pt to CB Lm to cb Lm on vm to call us, need to know why he is wanting or needing this Patient is wondering if he needs/or is due for an MMR vaccine. documented in this encounter [facility] 09-22-2024 Telephone encounter Note Lm to cb [facility] 09-21-2024 Telephone encounter Note Lm on vm to call us, need to know why he is wanting or needing this [facility] 09-21-2024 Telephone encounter Note Patient is wondering if he needs/or is due for an MMR vaccine. [facility] 07-31-2024 History of Present [...] requiring urgent evaluation. documented in this encounter [facility] 07-27-2024 History of Present [...] mg by mouth in the morning. HYDROcodone-acetaminophen (Chili) 5-325 MG tablet Take 1 tablet by [...] wrist GERD (gastroesophageal reflux disease) HTN (hypertension) ([facility]) Lumbosacral disc disease Osteoarthritis Past [...] risks of opioid therapy including potential for DIRECTOR WHOLESALE s/e, GI s/e, respiratory s/e, dermatologic s/e, [...] Medication Follow Up. documented in this encounter [facility] 07-03-2024 History of Present illness Narrative Images from the original note were not included. HISTORY OF PRESENT ILLNESS: POST OP PT Lawson Vela is an 69 y.o. @ male. (EST PT) S/P (L) NASH 05/03/24 (8WKS 5DAYS) XRAYS 06/12/24 IN [facility] DOING WELL- CONTINUES WITH PT, WANTS TO START AQUATIC THERAPY AT [facility]. USES CANE PRN. GOOD ROM/STRENGTH- +HYDROCODONE [...] requiring urgent evaluation. documented in this encounter [facility] 06-20-2024 History of Present [...] sign below. Date: documented in this encounter [facility] 06-14-2024 History of Present [...] mg by mouth in the morning. HYDROcodone-acetaminophen (Chili) 5-325 MG tablet Take 1 tablet by [...] (P) Yes Cognitive Screening Three Word Registration: AudioBeta, Watch, Vivonet Drawing: Normal Clock - 2 Three Word Recall: All 3 words correct - 3 Total Score (0-5 Points): 5 Pain Assessment Pain Score: (Patient-Rptd) (P) 3 Advance Care Planning Do you have a living will?: (Patient-Rptd) (P) Yes Do you have a medical power of trade mark attorney?: (Patient-Rptd) (P) No Objective : BP [...] a living will and durable power of trade mark attorney for healthcare. We discussed telling keith [...] need - Influenza, high-dose seasonal, quadrivalent, PF (BIA205) (Fluzone High Dose Quad North 0.7mL dose) Herniated lumbar disc without myelopathy - HYDROcodone-acetaminophen (Chili) 5-325 MG tablet; Take 1 tablet by mouth every 6 (six) hours if needed for severe pain Claudication (CMS/HCC) - Vascular US lower extremity arterial duplex bilateral; Future Orders Placed This Encounter Procedures Influenza, high-dose seasonal, quadrivalent, PF (YDO916) (Fluzone High Dose Quad North 0.7mL dose) [...] June 14, 2024 documented in this encounter [facility] 06-12-2024 History of Present [...] Unremarkable left total hip arthroplasty. Jose Hernández APRN-PANEL COVERER XR hip left 2 or 3 views [...] Unremarkable left total hip arthroplasty. Jose Hernández APRN-PANEL COVERER Procedures Orders Placed This Encounter Procedures XR [...] requiring urgent evaluation. documented in this encounter [facility] 05-16-2024 History of Present [...] mg by mouth in the morning. HYDROcodone-acetaminophen (Chili) 5-325 MG tablet Take 1 tablet by [...] wrist GERD (gastroesophageal reflux disease) HTN (hypertension) ([facility]) Lumbosacral disc disease Osteoarthritis ALLERGIES: [...] if he desires a referral to another charge master specialist we would be happy to make referral, he states he would like to continue his care here. Boni Blair D.O. documented in this encounter [facility] 05-09-2024 History of Present [...] mg by mouth in the morning. HYDROcodone-acetaminophen (Chili) 5-325 MG tablet Take 1 tablet by [...] wrist GERD (gastroesophageal reflux disease) HTN (hypertension) ([facility]) Lumbosacral disc disease Osteoarthritis ALLERGIES: Allergies Allergen [...] Blair/demi Blair D.O. documented in this encounter [facility] 05-08-2024 Telephone encounter Note Post op pain rx refill. PDMP reviewed [facility] 05-08-2024 Miscellaneous Notes Post op pain rx refill. PDMP reviewed documented in this encounter [facility] 05-04-2024 Telephone encounter Note He already discharged and PT is meeting with him today. [facility] 05-04-2024 Miscellaneous Notes He already discharged and PT is meeting with him today. Maxine myrick that patient is being discharged today from his LT Hip replacement and would like us to call patient to let him know what he needs to do. Patient's phone number is [phone]. documented in this encounter [facility] 05-04-2024 Telephone encounter Note Maxine myrick that patient is being discharged today from his LT Hip replacement and would like us to call patient to let him know what he needs to do. Patient's phone number is [phone]. [facility] 05-02-2024 Telephone encounter Note Post op pain rx. PDMP reviewed [facility] 05-02-2024 Miscellaneous Notes Post op pain rx. PDMP reviewed documented in this encounter [facility] 04-17-2024 History of Present illness Narrative Images from the original note were not included. HPI surgical clearance Additional comments: Pt sched 05/03/24 for left hip replacement with Dr Blair at [facility] PAT completed Last edited by France Farah LPN on 04/17/2024 1:48 PM. Subjective Patient ID: Lawson Vela is a 69 y.o. male who presents for surgical clearance (Pt sched 05/03/24 for left hip replacement with Dr Blair at [facility] completed). Pt has had left hip pain [...] mg by mouth in the morning. HYDROcodone-acetaminophen (Chili) 5-325 MG tablet Take 1 tablet by [...] with food 4 tablet 3 [DISCONTINUED] HYDROcodone-acetaminophen (Chili) 5-325 MG tablet No current facility-administered medications [...] As Previously Scheduled. documented in this encounter [facility] 04-12-2024 Telephone encounter Note OARRS reviewed, Rx sent into patient's pharmacy. [facility] 04-12-2024 Miscellaneous Notes OARRS reviewed, Rx sent into patient's pharmacy. Patient comment: Getting prepared for future surgery. documented in this encounter [facility] 04-12-2024 Telephone encounter Note Patient comment: Getting prepared for future surgery. [facility] 04-06-2024 History of Present [...] tx: cane, norco, ice, heat, topicals, XR [facility] 11/01/23, hot tub, PREHAB/HEP Currently seeing pain management, Dr Ludwig [facility] for LBP MEDICATION: Current Outpatient Medications [...] mg by mouth in the morning. HYDROcodone-acetaminophen (Chili) 5-325 MG tablet irbesartan-hydroCHLOROthiazide (Avalide) 150-12.5 MG [...] wrist GERD (gastroesophageal reflux disease) HTN (hypertension) ([facility]) Lumbosacral disc disease Osteoarthritis ALLERGIES: [...] IMAGING: November 01, 2023 x-rays from the [facility] office AP pelvis and lateral left hip [...] Blair/demi Blair D.O. documented in this encounter [facility] 04-04-2024 Instructions Trista Pelaez [...] in at the main lobby of the [facility]- registration desk is straight ahead as soon as you walk in. Tell them you are here for surgery. 2. If you have a Living Will/Durable Power of Crossword Puzzle Maker for Health Care that is not on [...] after you have bathed. 5. NO nail sierra leonean/acrylic on at least one finger. If you are having a hand, wrist or foot surgery then all nail sierra leonean and artificial/acrylic nails must be removed from [...] please call the Preadmission Testing office at [phone], Mon.-Fri. 7 a.m.-3 p.m. Leave a voicemail [...] with your doctor. documented in this encounter [facility] 04-04-2024 Miscellaneous Notes Patient called and educated to watch his YOLANDA education on total hip replacement prior to his PAT appointment next week. Patient verbalized understanding. documented in this encounter [facility] 04-04-2024 Nurse Note Patient called and educated to watch his YOLANDA education on total hip replacement prior to his PAT appointment next week. Patient verbalized understanding. [facility] 03-15-2024 History of Present illness Narrative No need for Prehab appt, has walker and has recently went through NASH, spoke with pt in parking lot, reviewed precautions good understanding. documented in this encounter [facility] 02-17-2024 History of Present [...] Appointment As Scheduled. documented in this encounter [facility] 02-07-2024 Hospital Discharge instructions [...] urethra. Follow these instructions at home: Take poev-qbd-helhsoy and prescription medicines only as told by [...] provider. Document Revised: 12/31/2021 Document Reviewed: 12/31/2021 [employer] Patient Education 2022 [employer]. Follow Up Care 08/30/2023 12:37:09 With:PAMELA BAER, Mac Stephenson, URL Address: [facility] [address] [place] [address]- When: Unknown [facility] 02-07-2024 Note Patient Education Urology Benign [...] Follow these instructions at home: ? Take olrx-abt-fthnqaa and prescription medicines only as told by [...] develop side effec (more content not included)... [facility] 08-09-2023 History of Present illness Narrative [...] develop for requiring urgent evaluation. Jose Hernández CLINICAL REHAB LIAISON-PANEL COVERER documented in this encounter [facility] 07-07-2023 Hospital course Narrative Summary: status post hip replacement right Orthopaedic Discharge Summary Patient ID: Lawson Vela [id number] 68 y.o. 1955 Admit date: 07/07/2023 Discharge [...] Closure: Deep and Superficial Layers Hospital Course:See [facility] inpatient notes for specifics Patient was admitted [...] Charissa Blair DO documented in this encounter [facility] 07-07-2023 Progress note Formatting of t his note is different from the original. Physical Therapy Evaluation Discharge Recommendations PT Recommendations: Home Home Recommendations: Intermittent caregiver support for: Post Discharge Therapy Recommendations: Home Physical Therapy Solar [employer]olta[employer] Crew Lead Support for-: ADL Deficits, Mobility Deficits Past [...] Principal Problem: Primary osteoarthritis of right hip [facility] 07-07-2023 Miscellaneous Notes Physical Therapy Evaluation Discharge Recommendations PT Recommendations: Home Home Recommendations: Intermittent caregiver support for: Post Discharge Therapy Recommendations: Home Physical Therapy [employer] Crew Lead Support for-: ADL Deficits, Mobility Deficits Past [...] in stable condition documented in this encounter [facility] 07-07-2023 Hospital Discharge instructions Janee Viera RN [...] swallowing) Questions, Problems, Concerns Preop phone number [phone] ext [phone] The following attachments cannot be sent through Care Everywhere.Total Hip Replacement Discharge Instructions (Telugu)documented in this encounter [facility] 07-07-2023 Attending History and physical note HISTORY AND PHYSICAL INTERVAL NOTE: Lawson Vela 1955 [id number] H&P reviewed. The patient was examined and there are no changes to the H&P. Charissa Blair DO Source Note - Charissa Blair DO - 07/06/2023 7:28 AM EST [facility] 07-07-2023 History and physical note HISTORY AND PHYSICAL INTERVAL NOTE: Lawson Vela 1955 [id number] H&P reviewed. The patient was examined and there are no changes to the H&P. Charissa Blair DO Source Note - Charissa Blair DO - 07/06/2023 7:28 AM EST documented in this encounter [facility] 07-07-2023 Procedure note Summary: Right hip [...] through the fat down to the fascial okbi. The fascial kobi was incised and under [...] to the recovery room in stable condition [facility] 04-13-2023 Note HNO ID: [id number] Author: Laila Lewis PA-C Service: ? Author Type: Physician Pbx Teacher Type: Progress Notes Filed: 04/15/2023 1:53 PM [...] a week. Hydrocodone, Meloxicam Zanaflex, Lidocaine patches healthcare corporate account director Prior to ablation symptoms on left have [...] days 2 More (more content not included)... [facility] 04-13-2023 Instructions Laila Lewis PA-C - 04/13/2023 [...] which is considered uptake). Laila Lewis PA-C [phone] documented in this encounter [facility] 04-13-2023 History of Present illness Narrative [...] a week. Hydrocodone, Meloxicam Zanaflex, Lidocaine patches healthcare corporate account director Prior to ablation symptoms on left have [...] the patient MRI Lumbar: Narrative PERFORMED AT [facility] LOCATION:[facility] CLINICAL HISTORY: Low back pain extending into the right lower extremity. COMPARISON: 05/01/2022 TECHNIQUE: Multiplanar MR imaging of the lumbar spine was performed. FINDINGS: The spine is visualized from the G78-X0-K8 levels on the sagittal sequences, assuming a [...] narrowing. At the L5-S1 level, there is myys-aw-vamfbupj diffuse disc bulging and moderate hypertrophic facet changes, which results in moderate to marked neural foraminal narrowing. Procedure Note CONVERSION, GENERIC - 11/13/2022 PERFORMED AT [facility] LOCATION:[facility] CLINICAL HISTORY: Low back pain extending into the right lower extremity. COMPARISON: 05/01/2022 TECHNIQUE: Multiplanar MR imaging of the lumbar spine was performed. FINDINGS: The spine is visualized from the J48-X6-K2 levels on the sagittal sequences, assuming a [...] narrowing. At the L5-S1 level, there is nttx-xy-amkiliog diffuse disc bulging and moderate hypertrophic facet changes, which results in moderate to marked neural foraminal narrowing. 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 Report reported and signed by James Vizcaino on 10/19/2022 1406 CONVERSION, GENERIC - 11/14/2022 PERFORMED AT [facility] LOCATION:[facility] [address] 110 EXAMINATION: XR HIPS TRENT 3_4V [...] 8:55 AM PAGER: documented in this encounter [facility] 02-12-2023 Note HNO ID: [id number] Author: Laila Lewis PA-C Service: ? Author Type: Physician Pbx Teacher Type: Progress Notes Filed: 02/12/2023 12:58 PM Note Text: Per Triage: Lawson Vela is a 68 year old male that requests evaluation of lumbar spine. Per review, they have symptoms of LBP into left leg pain. Positive for numbness, difficulty walking and weakness. CMT: PT [employer] corporate account director Studies (Reports unless indicated) MRI Lumbar: Narrative PERFORMED AT [facility] LOCATION:[facility] CLINICAL HISTORY: Low back pain extending into the right lower extremity. COMPARISON: 05/01/2022 TECHNIQUE: Multiplanar MR imaging of the lumbar spine was performed. FINDINGS: The spine is visualized from the C06-W8-P9 levels on the sagittal sequences, assuming a [...] narrowing. At the L5-S1 level, there is vkye-mg-brtzyipq diffuse disc bulging and moderate hypertrophic facet changes, which results in moderate to marked neural foraminal narrowing. Procedure Note CONVERSION, GENERIC - 11/13/2022 PERFORMED AT [facility] LOCATION:[facility] CLINICAL HISTORY: Low back pain extending into the right lower extremity. COMPARISON: 05/01/2022 TECHNIQUE: Multiplanar MR imaging of the lumbar spine was performed. FINDINGS: The spine is visualized from the I59-A0-C3 levels on the sagittal sequences, assuming a [...] narrowing. At the L5-S1 level, there is ocbb-vh-zrvublvp diffuse disc bulging and moderate hypertrophic facet changes, which results in moderate to marked neural foraminal narrowing. 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 Report reported and signed by James Vizcaino on 10/19/2022 1406 Disposition: Please schedule with Laila. [facility] 02-12-2023 History of Present illness Narrative Per Triage: Lawson Vela is a 68 year old male that requests evaluation of lumbar spine. Per review, they have symptoms of LBP into left leg pain. Positive for numbness, difficulty walking and weakness. CMT: PT [employer] healthcare corporate account director Studies (Reports unless indicated) MRI Lumbar: Narrative PERFORMED AT [facility] LOCATION:[facility] CLINICAL HISTORY: Low back pain extending into the right lower extremity. COMPARISON: 05/01/2022 TECHNIQUE: Multiplanar MR imaging of the lumbar spine was performed. FINDINGS: The spine is visualized from the B55-E3-N5 levels on the sagittal sequences, assuming a [...] narrowing. At the L5-S1 level, there is eorc-oz-ifcrnavg diffuse disc bulging and moderate hypertrophic facet changes, which results in moderate to marked neural foraminal narrowing. Procedure Note CONVERSION, GENERIC - 11/13/2022 PERFORMED AT [facility] LOCATION:[facility] CLINICAL HISTORY: Low back pain extending into the right lower extremity. COMPARISON: 05/01/2022 TECHNIQUE: Multiplanar MR imaging of the lumbar spine was performed. FINDINGS: The spine is visualized from the M39-U3-T7 levels on the sagittal sequences, assuming a [...] narrowing. At the L5-S1 level, there is bzbk-tw-pnrnrpzn diffuse disc bulging and moderate hypertrophic facet changes, which results in moderate to marked neural foraminal narrowing. 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 Report reported and signed by James Vizcaino on 10/19/2022 1406 Disposition: Please schedule with Laila. Patient name: Lawson Vela Are you being referred by a Center for Spine Health Provider or Pain Management Provider at [facility]? No If answer is YES please [...] the facility where the MRI/CT/myelogram was completed: [facility] Imaging Address: [address] [place] [address] [place] [address] [facility] Address: [address] [id number] MRI/CT/myelogram viewable in Epic: No If not, please provide [phone] to fax in imaging reports for review. [...] physical therapy was completed PT Injections [facility] Address: [address] [place] [address] Have you tried any other kinds of [...] where the surgery was completed: Additional Comments [phone] (Home Phone) documented in this encounter [facility] 01-28-2023 Note HNO ID: [id number] Author: Mookie Lee Service: ? Author Type: ? Type: Progress Notes Filed: 02/12/2023 12:58 PM Note Text: Patient name: Lawson Vela Are you being referred by a [place] for Spine Health Provider or Pain Management Provider at [facility]? No If answer is YES please [...] the facility where the MRI/CT/myelogram was completed: [facility] Imaging Address: [address] [place] [address] [facility] Address: [address] [id number] MRI/CT/myelogram viewable in Epic: No If not, please provide [phone] to fax in imaging reports for review. [...] physical therapy was completed PT Injections [facility] Address: [address] [place] [address] Have you tried any other kinds of [...] where the surgery was completed: Additional Comments [phone] (Home Phone) [facility] 12-17-2022 Evaluation note Encounter Date Diagnosis [...] prednisone taper. Advised not to take any dmxa-jmy-urwgqjt ibuprofen while taking prednisone. OARRS reviewed . [...] spine, education on diet, decrease sugar intake. [employer] Other 05-16-2023 NoteCONSULTATION CONSULTATION DATE: 11/10/2022 TO: [...] our patients to inform us about any rkzv-uix-ornmhqd medications or herbal remedies/nutritional supplements/alternative remedies. 2. [...] treatment options with their primary care provider.[facility] [id number] Note CONSULTATION CONSULTATION DATE: 10/08/2022 TO: Javad [...] our patients to inform us about any rqqe-gln-vbovpaq medications or herbal remedies/nutritional supplements/alternative remedies. 2. [...] treatment options with their primary care provider.[facility] [id number] Note CONSULTATION CONSULTATION DATE: 09/10/2022 HISTORY: This [...] a tightness in that region. Medications include Chili 5/325 daily, tizanidine 4 mg q.h.s., Mobic [...] in three months' time unless otherwise indicated.[facility] [id number] NoteCONSULTATION PROCEDURE DATE: 09/10/2022 PREOPERATIVE DIAGNOSIS: Bilateral [...] pattern, and patient tolerated the procedure well.[facility] [id number] Note CONSULTATION CONSULTATION DATE: 07/23/2022 HISTORY OF [...] current medications include Mobic 50 mg daily, Chili 5/325 per his PCP daily p.r.n. and [...] up in the office after the procedure.[facility] [id number] NoteCONSULTATION CONSULTATION DATE: 06/25/2022 HISTORY OF PRESENT [...] with a vitamin regimen and he takes Chili 5/325 daily p.r.n., and Mobic 15 mg [...] following his procedure here in the office.[facility] [id number] Hospital Discharge instructions Patient Education 06/01/2022 08:22:09 [...] urethra. Follow these instructions at home: Take ujwm-sdt-hlapkmi and prescription medicines only as told by [...] 06/14/2006 Document Revised: 05/09/2019 Document Reviewed: 07/19/2017 [employer] Patient Education 2019 [employer]. Follow Up Care 02/16/2022 11:28:21 With:PAMELA BAER, Mac Stephenson, FEROZ Address: [facility] [address], [place] [address]- When: Unknown [facility]22 NoteCONSULTATION CONSULTATION DATE: 05/19/2022 CHIEF [...] The patient currently takes Mobic 15 mg, Chili 5/325 on a p.r.n. basis as prescribed [...] epidural had been performed. CC: Javad Donato M.D.[facility]11-01-2022 NoteCONSULTATION CONSULTATION DATE: 04/28/2022 CHIEF COMPLAINT: Left [...] patient takes two Aleve. He also takes Chili 5/[address] Donato has prescribed for [...] would like to proceed. CC: Javad Donato M.D.[facility]08-22-2022 Hospital Discharge instructions Patient Education 02/16/2022 11:24:07 [...] urethra. Follow these instructions at home: Take lpwi-mtp-vvrbuxf and prescription medicines only as told by [...] 06/14/2006 Document Revised: 05/09/2019 Document Reviewed: 07/19/2017 [employer] Patient Education 2020 [employer]. 02/16/2022 11:24:04 Calorie Counting for Weight Loss [...] 06/14/2006 Document Revised: 03/03/2019 Document Reviewed: 05/14/2017 [employer] Patient Education [employer]. Follow Up Care 08/18/2021 12:09:57 With:Mac SANTIAGO MD, URL Address: [address] [place], [place] [id number] Business (1) When:Within 6 Month(s) [facility] evaluation + Plan note Future Appointments Appointment Date:06/01/2022 10:45:00 AM Scheduled Provider:Mac SANTIAGO MD Location:[facility] Appointment Type:URO Office Visit [facility] evaluation + Plan note Future Appointments Appointment Date:11/30/2022 08:45:00 AM Scheduled Provider:Mac SANTIAGO MD Location:[facility] Appointment Type:URO Office Visit [facility] evaluation + Plan note Future Appointments Appointment Date:02/05/2025 10:45:00 AM Scheduled Provider:Mac SANTIAGO MD Location:[facility] Appointment Type:URO Office Visit [facility] Evaluation + Plan note Future Appointments Appointment Date:02/08/2026 08:15:00 AM Scheduled Provider:Mac SANTIAGO MD Location:[facility] Appointment Type:URO Office Visit [facility] evaluation noteNo assessment information available [facility] Work Phone: Evaluation noteNort J[employer] Other evaluation note* Diagnosis Spinal stenosis, lumbar region with neurogenic claudication- Primary [facility] Spinal stenosis, lumbar region with neurogenic claudication- Primary Bilateral hip joint arthritis [facility] Right hip pain- Primary [...] region and thigh documented in this encounter [facility]* Diagnosis Acute pharyngitis, unspecified etiology- Primary documented [facility]* Diagnosis Routine general medical examination at health care facility- Primary Routine general medical examination at a health care facility ACP (advance care planning) Other specified counseling Benign essential hypertension ([facility]) Essential hypertension, benign IGT (impaired glucose tolerance) Impaired glucose tolerance test Atherosclerosis of aorta ([facility]) Atherosclerosis of aorta Class 2 severe obesity with serious comorbidity and body mass index (BMI) of 37.0 to 37.9 in adult, unspecified obesity type ([facility]) Screening for prostate cancer Special screening for malignant neoplasm of prostate Flu vaccine need Herniated lumbar disc without myelopathy Claudication ([facility]) Unspecified peripheral vascular disease documented in this encounter [facility]* Diagnosis Left hip pain- Primary Pain in joint, pelvic region and thigh S/P total left hip arthroplasty documented in this encounter [facility]* Diagnosis Left hip pain- Primary Pain in joint, pelvic region and thigh S/P total left hip arthroplasty documented in this encounter [facility]* Diagnosis Left hip pain- Primary Pain in joint, pelvic region and thigh S/P total left hip arthroplasty documented in this encounter [facility]* Diagnosis S/P total left [...] left hip arthroplasty documented in this encounter [facility]* Diagnosis Acute non-recurrent frontal sinusitis- Primary Herniated lumbar disc without myelopathy documented in this encounter [facility] Healthcare[facility] note* Diagnosis Primary osteoarthritis of right hip- Primary [facility] Diagnosis Preop examination- Primary Unspecified pre-operative examination Hypertension, unspecified type Preop examination Unspecified pre-operative examination Hypertension, unspecified type documented in this encounter [facility]* Diagnosis Herniated lumbar disc without [...] right hip replacement [facility] - Reported* Type Description Date Medical History appendicitis Medical History Arthritis Medical History Hypertension Medical History obesity Medical History pneumonia Medical History prostate cancer Surgical History appendectomy Surgical History carpal tunnel release 2017 Hospitalization History see surg Hx [facility] Poll Everywhere Other History general [facility]ative - [facility] Poll Everywhere Other Hospital course Narrative No data available for this section [facility] progress note No data available for this section [facility] Reason for referral (narrative)* Diagnostic Procedure Only (Routine) - Pending Review Specialty Diagnoses / Procedures Referred By Keyac t Referred To Contact XR IMAGING Diagnoses Bilateral hip joint arthritis Procedures XR HIP BILATERAL 5V PEL/AP/LAT EACH HIP RADEX HIPS BILATERAL WITH PELVIS MINIMUM 5 VIEWS Laila Lewis PA-C [address] [id number] Xr Imaging [place] [address] Referral ID Status Reason Start Date Expiration Date Visits Requested Visits Authorized [id number] Pending Review Auto-Generat ed Referral 3 05/12/2024 1 1 * Consult, Test, Treat (Routine) - Pending Review Specialty Diagnoses / Procedures Referred By Rayray t Referred To Contact Orthopedics Diagnoses Bilateral hip joint arthritis Procedures CONSULT TO ORTHOPAEDICS OFFICE/OUTPATIENT [facility] 60-74 MINUTES Laila Lewis PA-C [address] [place] [address] Referral ID Status Reason Start Date Expiration Date Visits Requested Visits Authorized [id number] Pending Review PCP Requested Referral 3 04/12/2024 1 1 [place] for visit Narrativeself referral- low back pain L4-L5 [facility] Other Reason for visit Narrative* Rehabilitation - Outpatient (Routine) - Authorized Specialty Diagnoses / Procedures Referred By Contac t Referred To Contact Physical Therapy Diagnoses S/P total left hip arthroplasty Procedures CA OFFICE/OUTPATIENT [facility] Jose Hernández, TRAVELING ENGINEER [address] [place] [address] Phone: tel: fax: Nagi Plata, PT [address] [place] [address] Phone: tel: fax: Referral ID Status Reason Start Date Expiration Date Visits Requested Visits Authorized [id number] Authorized Consult and Treat 06/12/2024 06/27/2024 10 10 [facility] Narrative* Rehabilitation - Outpatient (Routine) - Authorized Specialty Diagnoses / Procedures Referred By Contac t Referred To Contact Physical Therapy Diagnoses S/P total left hip arthroplasty Procedures CA OFFICE/OUTPATIENT NEW [facility] MDM 60 MINUTES Jose Hernández, YISEL [address] [place] [address] Phone: tel: fax: Nagi Plata, PT [address] [place] [address] Phone: tel: fax: Referral ID Status Reason Start Date Expiration Date Visits Requested Visits Authorized [id number] Authorized Consult and Treat 06/29/2024 06/27/2025 20 20 [facility] Narrative* Rehabilitation - Outpatient (Routine) - Authorized Specialty Diagnoses / Procedures Referred By Contac t Referred To Contact Physical Therapy Diagnoses S/P total left hip arthroplasty Procedures CA OFFICE/OUTPATIENT NEW [facility] MDM 60 MINUTES Jose Hernández, YISEL [address] [place] [address] Phone: tel: fax: Nagi Plata, PT [address] [place] [address] Phone: tel: fax: Referral ID Status Reason Start Date Expiration Date Visits Requested Visits Authorized [id number] Authorized Consult and Treat 06/29/2024 06/27/2025 20 [...] type Procedures ECG 12 lead Rossy, Charissa Rose, DO [address] [place] [address] Referral ID Status Reason Start Date Expiration Date V isits Requested Visits Authorized [id number] Pending Review 03/06/2024 03/06/2025 1 1 Specialty Diagnoses / Procedures Referred By Contac t Referred To Contact Procedures Remove dressing (specify when) Nagi Miner, CLINICAL REHAB LIAISON-PANEL COVERER [address], [facility] [address] [place] [address] Referral ID Status Reason Start Date Expiration Date V isits Requested Visits Authorized [id number] Pending Review 07/07/2023 07/06/2024 1 1 Specialty Diagnoses / Procedures Referred By Contac t Referred To Contact Procedures Adult diet Nagi Miner, CLINICAL REHAB LIAISON-PANEL COVERER [address], [facility] [address] [place] [address] Referral ID Status Reason Start Date Expiration Date V isits Requested Visits Authorized [id number] Pending Review 07/07/2023 07/06/2024 1 1 Additional Source Comments Care Team (unrecognized sect ion and content) Team Status: Active Member Role Status Dates Javad Donato II MD Primary Care Provider Active Team Status: Inactive Member Role Status Dates Javad Donato II MD Primary Care Provider Active AURELIANO ReyesC Attending Provider Active Rehabilitation Coordinator Relationship Specialty Start Date End Date Javad Donato MD [address] [place] [address] PCP - ACO Reach 11/19/22 Javad Donato MD [address] [place] [address] PCP - General Internal Medicine 01/05/23 Rehabilitation Coordinator Relationship Specialty Start Date End Date Javad Donato MD [address] [place] [address] PCP - ACO Reach 11/19/22 Javad Donato MD [address] [place] [address] PCP - General Internal Medicine 01/05/23 Rehabilitation Coordinator Relationship Specialty Start Date End Date Javad Donato MD [address] [place] [address] PCP - ACO Reach 11/19/22 Javad Donato MD [address] [place] [address] PCP - General Internal Medicine 01/05/23 Rehabilitation Coordinator Relationship Specialty Start Date End Date aJvad Donato MD [address] [place] [address] PCP - ACO Reach 11/19/22 Javad Donato MD [address] [place] [address] PCP - General Internal Medicine 01/05/23 Rehabilitation Coordinator Relationship Specialty Start Date End Date Javad Donato MD [address] [place] [address] PCP - ACO Reach 11/19/22 Javad Donato MD [address] [place] [address] PCP - General Internal Medicine 01/05/23 Rehabilitation Coordinator Relationship Specialty Start Date End Date Javad Donato MD [address] [place] [address] PCP - ACO Reach 11/19/22 Javad Donato MD [address] [place] [address] PCP - General Internal Medicine 01/05/23 Rehabilitation Coordinator Relationship Specialty Start Date End Date Javad Donato MD [address] [place] [address] PCP - ACO Reach 11/19/22 Javad Donato MD [address] [place] [address] PCP - General Internal Medicine 01/05/23 Rehabilitation Coordinator Relationship Specialty Start Date End Date Javad Donato MD [address] [place] [address] PCP - ACO Reach 11/19/22 Javad Donato MD [address] [place] [address] PCP - General Internal Medicine 01/05/23 Rehabilitation Coordinator Relationship Specialty Start Date End Date Javad Donato MD [address] [place] [address] PCP - ACO Reach 11/19/22 Javad Donato MD [address] [place] [address] PCP - General Internal Medicine 01/05/23 Rehabilitation Coordinator Relationship Specialty Start Date End Date Javad Donato MD [address] [place] [address] PCP - ACO Reach 11/19/22 Javad Donato MD [address] [place] [address] PCP - General Internal Medicine 01/05/23 Rehabilitation Coordinator Relationship Specialty Start Date End Date Javad Donato MD [address] [place] [address] PCP - ACO Reach 11/19/22 Javad Donato MD [address] [place] [address] PCP - General Internal Medicine 01/05/23 Rehabilitation Coordinator Relationship Specialty Start Date End Date Javad Donato MD [address] [place] [address] PCP - ACO Reach 11/19/22 Javad Donato MD [address] [place] [address] PCP - General Internal Medicine 01/05/23 Rehabilitation Coordinator Relationship Specialty Start Date End Date Javad Donato MD [address] [place] [address] PCP - ACO Reach 11/19/22 Javad Donato MD [address] [place] [address] PCP - General Internal Medicine 01/05/23 Rehabilitation Coordinator Relationship Specialty Start Date End Date Javad Donato MD [address] [place] [address] PCP - ACO Reach 11/19/22 Javad Donato MD [address] [place] [address] PCP - General Internal Medicine 01/05/23Wednesday, Michelle, AIR INTELLIGENCE SPECIALIST [address] [place] [address] Licensed Practical Nurse Family Medicine 05/08/24 Rehabilitation Coordinator Relationship Specialty Start Date End Date Javad Donato MD [address] [place] [address] PCP - ACO Reach 11/19/22 Javad Donato MD [address] [place] [address] PCP - General Internal Medicine 01/05/23Wednesday, Michelle, AIR INTELLIGENCE SPECIALIST [address] [place] [address] Licensed Practical Nurse Family Medicine 05/08/24 Rehabilitation Coordinator Relationship Specialty Start Date End Date Javad Donato MD [address] [place] [address] PCP - ACO Reach 11/19/22 Javad Donato MD [address] [place] [address] PCP - General Internal Medicine 01/05/23Wednesday, Michelle, AIR INTELLIGENCE SPECIALIST [address] [place] [address] Licensed Practical Nurse Family Medicine 05/08/24 05/16/24 Rehabilitation Coordinator Relationship Specialty Start Date End Date Javad Donato MD [address] [place] [address] PCP - ACO Reach 11/19/22 Javad Donato MD [address] [place] [address] PCP - General Internal Medicine 01/05/23Wednesday, GLENDA MartinezN [address] [place] [address] Licensed Practical Nurse Family Medicine 05/08/24 05/16/24 Rehabilitation Coordinator Relationship Specialty Start Date End Date Javad Donato MD [address] [address] [place] [address] PCP - ACO Reach 11/19/22 Javad Donato MD [address] [place] [address] PCP - General Internal Medicine 01/05/23Wednesday, GLENDA MartinezN [address] [place] [address] Licensed Practical Nurse Family Medicine 05/08/24 05/16/24 Rehabilitation Coordinator Relationship Specialty Start Date End Date Javad Donato MD [address] [place] [address] PCP - ACO Reach 11/19/22 Javad Donato MD [address] [place] [address] PCP - General Internal Medicine 01/05/23 Rehabilitation Coordinator Relationship Specialty Start Date End Date Javad Donato MD [address] [place] [address] PCP - ACO Reach 11/19/22 Javad Donato MD [address] [place] [address] PCP - General Internal Medicine 01/05/23 Rehabilitation Coordinator Relationship Specialty Start Date End Date Javad Donato MD [address] [place] [address] PCP - ACO Reach 11/19/22 Javad Donato MD [address] [place] [address] PCP - General Internal Medicine 01/05/23 Rehabilitation Coordinator Relationship Specialty Start Date End Date Javad Donato MD [address] [place] [address] PCP - ACO Reach 11/19/22 Javad Donato MD [address] [place] [address] PCP - General Internal Medicine 01/05/23 Rehabilitation Coordinator Relationship Specialty Start Date End Date Javad Donato MD [address] [place] [address] PCP - ACO Reach 11/19/22 Javad Donato MD [address] [place] [address] PCP - General Internal Medicine 01/05/23 Rehabilitation Coordinator Relationship Specialty Start Date End Date Javad Donato MD [address] [place] [address] PCP - ACO Reach 11/19/22 Javad Donato MD [address] [place] [address] PCP - General Internal Medicine 01/05/23 Rehabilitation Coordinator Relationship Specialty Start Date End Date Javad Donato MD [address] [place] [address] PCP - ACO Reach 11/19/22 Javad Donato MD [address] [place] [address] PCP - General Internal Medicine 01/05/23 Rehabilitation Coordinator Relationship Specialty Start Date End Date Javad Donato MD [address] [place] [address] PCP - ACO Reach 11/19/22 Javad Donato MD [address] [place] [address] PCP - General Internal Medicine 01/05/23 Rehabilitation Coordinator Relationship Specialty Start Date End Date Javad Donato MD [address] [place] [address] PCP - ACO Reach 11/19/22 Javad Donato MD [address] [place] [address] PCP - General Internal Medicine 01/05/23 Rehabilitation Coordinator Relationship Specialty Start Date End Date Javad Donato MD [address] [place] [address] PCP - ACO Reach 11/19/22 Javad Donato MD [address] [place] [address] PCP - General Internal Medicine 01/05/23 Rehabilitation Coordinator Relationship Specialty Start Date End Date Javad Donato MD [address] [place] [address] PCP - ACO Reach 11/19/22 Javad Donato MD [address] [place] [address] PCP - General Internal Medicine 01/05/23 Rehabilitation Coordinator Relationship Specialty Start Date End Date Javad Donato MD [address] [place] [address] PCP - General Internal Medicine 06/15/17 Rehabilitation Coordinator Relationship Specialty Start Date End Date Javad Donato MD [address], [address] [place] [address] PCP - General Internal Medicine 06/15/17 Rehabilitation Coordinator Relationship Specialty Start Date End Date Javad Donato MD [address] [place] [address] PCP - ACO Reach 11/19/22 Javad Donato MD [address] [place] [address] PCP - General Internal Medicine 01/05/23 Rehabilitation Coordinator Relationship Specialty Start Date End Date Javad Donato MD [address] [place] [address] PCP - ACO Reach 11/19/22 Javad Donato MD [address] [place] [address] PCP - General Internal Medicine 01/05/23 Rehabilitation Coordinator Relationship Specialty Start Date End Date Javad Donato MD [address] [facility] [address] [place] [address] PCP - ACO Reach 11/19/22 Javad Donato MD [address] [facility] [address] [place] [address] PCP - General Internal Medicine 01/05/23 (unrecognized sect ion and content) No Status Records FoundNo Status Records FoundNo Status Records FoundNo Status Records FoundNo Status Records FoundNo Status Records FoundNo Status Records FoundNo Status Records FoundNo Status Records FoundNo Status Records Found INFORMATION SOURCE (unrecogn ized section and content) DATE CREATED AUTHOR 05/02/2022 [facility] dical Specialist DATE CREATED AUTHOR AUTHOR'S ORGANIZ ATION 12/04/2022 [facility] DATE CREATED AUTHOR AUTHOR'S ORGANIZ ATION 01/13/2023 [facility] DATE CREATED AUTHOR AUTHOR'S ORGANIZ ATION 02/13/2023 [facility] DATE CREATED AUTHOR AUTHOR'S ORGANIZ ATION 04/17/2023 [facility] DATE CREATED AUTHOR AUTHOR'S ORGANIZ ATION 05/05/2024 [facility] DATE CREATED AUTHOR AUTHOR'S ORGANIZ ATION 06/18/2024 [facility] DATE CREATED AUTHOR AUTHOR'S ORGANIZ ATION 11/30/2024 [facility] dical Specialists [facility] DATE CREATED AUTHOR AUTHOR'S ORGANIZ ATION 12/04/2024 [facility] DATE CREATED AUTHOR AUTHOR'S ORGANIZ ATION 02/06/2025 [facility] Goals (unrecognized section and content) Goals may be documented in a n alternate section Source Comments (unrecognize d section and content) In the event this informatio n is protected by the Federal Confidentiality of Alcohol and Drug Abuse Patient Records regulations: The Federal rules restrict any use of the information to criminally investigate or prosecute any alcohol or drug abuse patient.[facility] the event this information is protected by the Federal Confidentiality of Alcohol and Drug Abuse Patient Records regulations: The Federal rules restrict any use of the information to criminally investigate or prosecute any alcohol or drug abuse patient.[facility] Reason for Visit (unrecogniz ed section and content) Reason Comments New Patient Specialty Diagnoses / Procedures Referred By Contsimón t Referred To Contact Physical Therapy Diagnoses Presence of artificial hip joint, right Procedures CA OFFICE/OUTPATIENT NEW HIGH MDM 60 MINUTES Charissa Blair, DO [address] [place] [address] [address] [place] [address] Referral ID Status Reason Start Date Expiration Date Visits Requested Visits Authorized [id number] Authorized Specialty Services Required 07/08/2023 01/04/2024 30 30 Reason Comments Follow-up Reason Comments Pain Reason Onset Date Comments Med Refill 04/12/2024 Reason Comments surgical clearance Pt sched 05/03/24 for left hip replacement with Dr Blair at [facility] completed Reason Onset Date Comments Discharge [...] hip right hip degenerative joint disease Procedures CA TOTAL HIP ARTHROPLASTY REPLACEMENT TOTAL JOINT HIP Charissa Blair, DO [address] [facility] [address] [place] [address] Referral ID Status Reason Start Date Expiration Date Visits Re quested Visits Authorized [id number] 1 1 Reason Comments Hypertension Results Labs [...] BE BASED ON THE PRIMARY CLINICAL RECORDS. [facility]. provides no warranty or guarantee of the accuracy or completeness of information in this document.
--- OUTSIDE RECORDS SUMMARY | 2025-02-19 08:09 | XMS_ITS | Encounter Summary ---
Author Organization [facility] Address [address] [place] [address] Care Team Providers Care Loader Helper Name Role Phone Javad Donato MD Unavailable [phone] Javad Donato MD Primary Care Provider [phone] Encounter Details Date Type Department Care Team [...] How often do you attend chur or voodoo services? 1 to 4 times per year 05/10/2023 Do you belong to any clubs o r organizations such as sabianist groups, unions, fraternal or athletic groups, or [...] Recorded Patient Health Questionnaire-2 Score 0 06/08/2024 [employer] [facility] Occupat ional Health - [...] EDT Office Visit [facility] [address] [facility] [address] [place] [address] Javad Donato MD 112 [facility] 110 [place] [address] 04/30/2025 8:00 AM EST Office Visit [facility] [address] [place] [address] Jose Robins, YISEL [address] [place], [place] [address] documented as of this encounter Procedures Procedure Name Priority Date/Time Associated Diagnosis Comments XR LUMBAR SPINE 6V W BENDING 06/17/2024 7:57 AM EST documented in this encounter Results * XR LUMBAR SPINE 6V W BENDING (06/17/2024 7:57 AM EST) Anatomical Region Laterality Modality Other 06/17/2024 7:57 AM EST Narrative 06/17/2024 7:59 [place] [address] XRay Report Signed Patient: CANDACE VELA MR#: [id number] : 1955 Acct:[id number] Age/Sex: 69 / M ADM Date: 06/16/24 Loc: RAD Attending Dr: Yosef Cheema NP Ordering Physician: Yosef Cheema NP Date of Service: 06/16/24 Procedure(s): XR lumbar spine 6V w bending Accession Number(s): [id number] cc: JAVAD DONATO ; Yosef Cheema NP [place] [address] Patient Name: CANDACE VELA MRN: [id number] date: 1955 Sex: M Assigned Patient Location: [facility] Current Patient Location: Accession/Order Number: [id number] Exam Date: 06/16/2024 12:03 Report Date: 06/17/2024 [...] Signed By: 06/17/24 0759 DD/ 0757 TD/TT: Laboratory Technician: Procedure Note Radiology, Radiologist, MD - 06/17/2024 [place] [address] XRay Report Signed Patient: CANDACE VELA GMR#: [id number] : 1955cct:[id number] Age/Sex: 69 / MADM Date: 06/16/24 Loc: RAD Attending Dr: Yosef Cheema NP Ordering Physician: Yosef Cheema NP Date of Service: 06/16/24 Procedure(s): XR lumbar spine 6V w bending Accession Number(s): [id number] cc: JAVAD DONATO ; Yosef Cheema NP [place] [address] Patient Name: CANDACE VELA MRN: [id number] date: 1955 Sex: M Assigned Patient Location: [facility] Current Patient Location: Accession/Order Number: [id number] Exam Date: 06/16/2024 12:03 Report Date: 06/17/2024 [...] M.D. Signed By:06/17/24 0759 DD/ 0757 TD/TT: Laboratory Technician: us Generic External Data Provider [facility] Final Result documented in this encounter Visit Diagnoses Not on filedocumented in this encounter Care Teams Loader Helper Relationship Specialty Start Date End Date Javad Donato MD [address] [facility] [address] [place] [address] PCP - ACO Reach 11/19/22 Javad Donato MD [address] [facility] [address] [place] [address] PCP - General Internal Medicine 01/05/23 documented as of this encounter
--- OUTSIDE RECORDS SUMMARY | 2025-02-19 08:09 | XMS_ITS | Encounter Summary ---
Author Organization [facility] Address [address] [place] [address] Care Team Providers Care Bookkeeping Manager Name Role Phone Unavailable Primary Care Provider Unavailabl e Source Comments In the event this information is protected by the Federal Confidentiality of Alcohol and Drug AbusePatient Records regulations: The Federal rules restrict any use of the information to criminally investigate or prosecute any alcohol or drug abuse patient.[facility] Encounter Details Date Type Department Care Team (Late st Contact Info) Description 04/13/2023 Get Medical Advice [facility] [place] [address] [place] [address] Mercedes Pan PA-C [address] [place] [address] Pain management reports Social History Tobacco Use Types Packs/Day Years Used Date Smoking Tobacco: Never Assessed PHQ-2 Answer Date Recorded PHQ-2 score 1 04/13/2023 Area Deprivation Index Answer Date Jeronimo rded National Score (1-100), lower number is lower ri sk 76 04/13/2023 State Score (1-10), lower number is lower risk 6 04/13/2023 Data from: https://www.neighborhoodatlas.[facility].edu/. Last address used for calculation [address] [...]
--- OUTSIDE RECORDS SUMMARY | 2025-02-19 08:09 | XMS_ITS | Encounter Summary ---
Author Organization [facility] Address [address] [place] [address] Care Team Providers Care Hunter Trapper Name Role Phone Javad Donato MD Unavailable [phone] Javad Donato MD Primary Care Provider Encounter Details Date Type Department Care Team (Late st Contact Info) Description 06/15/2024 Abstract [facility] [place] [facility] [address] [facility] [address] [place] [address] Javad Donato MD 112 [facility] 110 [place], [place] [address] Social History Tobacco Use Types Packs/Day Years [...] week 05/10/2023 How often do you attend [facility] or druze services? 1 to 4 [...] Recorded Patient Health Questionnaire-2 Score 0 06/08/2024 [facility] of Occupat ional Health - Occupational [...] 9:00 AM EDT Office Visit [facility] [address] [facility] [address] [place] [address] Javad Donato MD [address] [facility] [address] [place] [address] 04/30/2025 8:00 AM EST Office Visit [facility] [address] [place] [address] Jose Robins, PEANUT GRADER [address] [place], [place] [address] documented as of this encounter Visit Diagnoses Not on filedocumented in this encounter Care Teams Hunter Trapper Relationship Specialty Start Date End Date Javad Donato MD [address] [facility] [address] [place] [address] PCP - ACO Reach 11/19/22 Javad Donato MD [address] [facility] [address] [place] [address] PCP - General Internal Medicine 01/05/23 documented as of this encounter
--- OUTSIDE RECORDS SUMMARY | 2025-02-19 08:09 | XMS_ITS | Clinical Summary ---
Author Organization [facility] Address [address] [place] [address] Care Team Providers Care Conventional Mortgage Underwriter Name Role Phone Unavailable Primary Care Provider [...] is lower risk 6 04/13/2023 Data from: https://www.neighborhoodatlas.medicine.[facility]/. Last address used for calculation [address] [...]
[2025-02-19 08:25] VITALS: BP 133/79; PULSE 86; TEMP 36.6; O2SAT 95
[2025-02-19 08:57] VITALS: BP 165/77; PULSE 83; O2SAT 96
[2025-02-19 08:58] VITALS: BP 158/74; PULSE 82; O2SAT 96
[2025-02-19] MEDS: BUPIVACAINE HCL 0.25% PF 25 MG/10 ML VIAL INJ (08:59)
[2025-02-19] MEDS: IOHEXOL 240 MG/ML - 10 ML VIAL 24 MG INJ (08:59)
[2025-02-19] MEDS: LIDOCAINE HCL 2% 400 MG/20 ML MDV INJ (08:59)
[2025-02-19] MEDS: METHYLPREDNISOLONE ACETATE 80 MG/ML VIAL INJ (08:59)
[2025-02-19] MEDS: 0.9 % SODIUM CHLORIDE 10 ML SYRINGE - SALINE FLUSH INJ (08:59)
--- NOTE | 2025-02-19 09:01 | P.ON_ITS ---
Date of procedure: 02/19/25 Pre-op diagnosis: Pain due to lumbar stenosis with neurogenic claudication Post-op diagnosis: same as pre-op Procedure: Procedure: Left L4-5, l5-S1 transforaminal epidural steroid injection Medications: Bupivacaine 0.25% 2cc, lidocaine 2% 1cc, depomedrol 80mg The patient was seen and examined in the preoperative holding area.? Informed consent was obtained and placed on the chart.? Patient was brought to the medical procedure unit and placed in the prone position where a timeout was completed verifying the correct patient, procedure site, position, and planned special equipment using sterile aseptic technique.? Under direct fluoroscopic visualization a 25-gauge Quincke tipped spinal needle was advanced to the designated neural foramen where contrast dye was injected to show adequate spread.? The needle was inserted at level left L4-5. There was no evidence of vascular or adverse uptake.? Epidural spread was appreciated.? The above- mentioned injectate was then placed in a 1.5 mL aliquot preceded by negative aspiration.? The needle was removed. The needle was inserted and the procedure repeated at level left L5-S1.? The surgery site was covered.? Patient was taken to the postprocedural recovery area and monitored for an appropriate length of time before found suitable for discharge in the accompaniment of a responsible adult. Anesthesia: Local Surgeon: Lidia Fletcher Pathology: none sent Condition: stable Disposition: no change
== END 2025-02-19 09:02 | disposition home or self-care (01) ==
PROVIDERS: PCP Internal Medicine; Visit Provider Anesthesiology
DX: M48.062 Spinal stenosis, lumbar region with neurogenic claudication (principal); E11.9 Type 2 diabetes mellitus without complications
CPT/HCPCS: 36415; 64483; 64484; 82948; J0665; J1010; Q9966

== ENCOUNTER 2025-03-07 07:57 | Outpatient (OUT) | payer MEDICARE, OTHER, SELFPAY ==
--- OUTSIDE RECORDS SUMMARY | 2025-03-07 08:00 | XMS_ITS | Clinical Summary ---
Author Organization [facility] Address [id number] [address] [place] [address] Care Team Providers Care Chef Broiler Or Fry Name Role Phone Javad Donato MD Primary Care Provider [phone] Allergies Active Allergy Reactions Criticality Noted Date [...] = 0.6 oz pur e alcohol) rare [facility] Utilities Answer Date Recorded In the past 12 months has th e [employer], gas, oil, or [employer] threatened to shut off services in your [...] [facility] General Yes Radha Casillas MSW Note: Evaluation of progress towards goal: In progress: DC to home with Ortho [facility] and family support. Hopes to DC to home today. Autogenerated Goal Care Plan Autogenerated Problem No [employer] Implanted Type Area Corporate Buyer Device Identifier Shelf Expiration Date Model / Serial / Lot Shell Actb 56mm Hip 4 Hl Clr Cd [place]oti G7 F Hmsphr - Sna - [id number] Implanted:Qt y: 1 on 07/07/2023 by Amauri Blair DO at [facility] Orthopedic Implant Right: Hip [employer] 04/03/2033 [id number] / NA / [id number] Liner Actb 36mm F Vivacit-E Lum G7 Hip Strl Lf - [id number] Implanted:Qt y: 1 on 07/07/2023 by Amauri Blair DO at [facility] Orthopedic Implant Right: Hip [employer] 05/01/2028 [id number] / / [id number] Stem Fem 129d 4 12/14 45.5mm Fitmore Protasul-64 Hip Rgh - [id number] Implanted:Qt y: 1 on 07/07/2023 by Amauri Blair DO at [facility] Orthopedic Implant Right: Hip [employer] 10/29/2032 [id number] / / [id number] Shell Actb 56mm Hip 4 Hl Clr Cd [place] G7 F Hmsphr - Sna - [id number] Implanted:Qt y: 1 on 05/03/2024 by Amauri Blair DO at [facility] Orthopedic Implant Left: Hip [employer] 12/11/2033 [id number] / NA / [id number] Liner Actb 36mm F Vivacit-E Lum G7 Hip Strl Lf - Sna - [id number] Implanted:Qt y: 1 on 05/03/2024 by Amauri Blair DO at [facility] Orthopedic Implant Left: Hip [employer] 02/20/2029 [id number] / NA / [id number] Stem Fem 129d 4 12/14 45.5mm Fitmore Protasul-64 Hip Rgh - Sna - [id number] Implanted:Qt y: 1 on 05/03/2024 by Amauri Blair DO at [facility] Orthopedic Implant Left: Hip [employer] 01/25/2029 [id number] / NA / [id number] Head Fem 36mm +7mm 06/10 Xl Blx D Hip Actb - Sna - [id number] Implanted:Qt y: 1 on 05/03/2024 by Amauri Blair DO at [facility] Orthopedic Implant Left: Hip [employer] 04/25/2031 [id number] / NA / [id number] [employer] Femoral Head 36mm Implanted:Qt y: 1 on 07/07/2023 by Amauri Blair DO at [facility] Other Implant Right: Hip [employer] 10/21/2031 [id number] / / [id number] Screw Bn 30mm 6.5mm St Actb Seven Trlg Strl Rpl [id number] - [id number] Implanted:Qt y: 1 on 07/07/2023 by Amauri Blair DO at [facility] Screw Right: Hip [employer] 01/21/2033 [id number] / / [id number] Screw Bn 30mm 6.5mm St Actb Seven Trlg Strl Rpl [id number] 165+[id number] - [id number] Implanted:Qt y: 1 on 07/07/2023 by Amauri Blair DO at [facility] Screw Right: Hip [employer] 02/08/2033 [id number] / / [id number] Screw Bn 30mm 6.5mm St Actb Seven Trlg Strl Rpl [id number] 165+[id number] - [id number] Implanted:Qt y: 1 on 07/07/2023 by Amauri Blair DO at [facility] Screw Right: Hip [employer] 02/08/2033 [id number] / / [id number] Screw Bn 30mm 6.5mm St Actb Seven Trlg Strl Rpl [id number] 165+[id number] - Sna - [id number] Implanted:Qt y: 1 on 05/03/2024 by Amauri Blair DO at [facility] Screw Left: Hip [employer] 11/09/203341-1637-414-3 0 / NA / [id number] Screw Bn 30mm 6.5mm St Actb Seven Trlg Strl Rpl [id number] 165+[id number] - Sna - [id number] Implanted:Qt y: 1 on 05/03/2024 by Amauri Blair DO at [facility] Screw Left: Hip [employer] 11/29/203339-0381-557-3 0 / NA / [id number] Additional Health Concerns Active Problems Noted Date Diagnosed Date Autogenerated Problem 02/27/[address] [place] [address] MEDICARE [place] [place] Advance Directives * Full Code (Latest Code Status on File) Date Activated Date Inactivated Comments 05/03/2024 7:48 AM 05/03/2024 6:58 PM * Full Code Date Activated Date Inactivated Comments 07/06/2023 5:59 PM 07/07/2023 4:47 PM Care Teams Chef Broiler Or Fry Relationship Specialty Start Date End Date Javad Donato MD [address] [facility] 110 [place] [address] PCP - General Internal Medicine 06/15/17
--- OUTSIDE RECORDS SUMMARY | 2025-03-07 08:00 | XMS_ITS | Clinical Summary ---
Author Organization [facility] Address [address] [place] [address] Care Team Providers Care Planning Assistant Name Role Phone Unavailable Primary Care Provider [...] is lower risk 6 04/13/2023 Data from: https://www.neighborhoodatlas.medicine.[facility]/. Last address used for calculation [address] [...]
--- OUTSIDE RECORDS SUMMARY | 2025-03-07 08:00 | XMS_ITS | Encounter Summary ---
Author Organization [facility] Address [address] [place] [address] Care Team Providers Care Geographic Information Systems Engineer Name Role Phone Javad Donato MD Unavailable [phone] Javad Donato MD Primary Care Provider [phone] Wednesday, Michelle ARGUETA Unavailable [phone] Encounter Details Date Type Department Care Team (Late st Contact Info) Description 04/05/2024 Abstract [facility] [address] [facility] 110 [place] [address] Javad Donato MD 112 [facility] 110 [place], [place] [address] Social History Tobacco Use Types Packs/Day Years [...] How often do you attend chur or pentecostal services? 1 to 4 times per year [...] Patient Health Questionnaire-2 Score 0 05/17/2023 [facility] of Occupat ional Health - Occupational [...] 9:00 AM EDT [facility] [address] [facility] [address] [place] [address] Javad Donato MD [address] [facility] 110 [place] [address] 04/30/2025 8:00 AM EST Office Visit [facility] [address] [place] [address] Jose Robins, PHOTO RETOUCHER [address] [place], [place] [phone] documented as of this encounter Visit Diagnoses Not on filedocumented in this encounter Care Teams Geographic Information Systems Engineer Relationship Specialty Start Date End Date Javad Donato MD [address] [place] [address] PCP - ACO Reach 11/19/22 Javad Donato MD [address] [place] [address] PCP - General Internal Medicine 01/05/23Wednesday, ELLIE Martinez [address] [place] [address] Licensed Practical Nurse Family Medicine 05/08/24 05/16/24 documented as of this encounter
--- OUTSIDE RECORDS SUMMARY | 2025-03-07 08:00 | XMS_ITS | Encounter Summary ---
Author Organization [facility] Address [address] [place] [address] Care Team Providers Care Renewable Energy Engineer Name Role Phone Javad Donato MD Unavailable [phone] Javad Donato MD Primary Care Provider [phone] Wednesday, Michelle ARGUETA Unavailable [phone] Encounter Details Date Type Department Care Team (Late st Contact Info) Description 01/11/2023 Abstract [facility] [place] [address] [facility] 110 [place] [address] Javad Donato MD [address] [facility] 110 [place] [address] Social History Tobacco Use Types Packs/Day Years [...] [address] [place] [address] [place] [address] Javad Donato MD [address] [place] 110 [place] [address] 04/30/2025 8:00 AM EST Office Visit [facility] [address] [place] [address] Jose Robins, SENIOR INSPECTOR [address] [address] documented as of this encounter Visit Diagnoses Not on filedocumented in this encounter Care Teams Renewable Energy Engineer Relationship Specialty Start Date End Date Javad Donato MD [address] [place] [address] [place] [address] PCP - ACO Reach 11/19/22 Javad Donato MD [address] [place] [address] [place] [address] PCP - General Internal Medicine 01/05/23Wednesday, ELLIE Martinez [address] [place] [address] Licensed Practical Nurse Family Medicine 05/08/24 05/16/24 documented as of this encounter
--- OUTSIDE RECORDS SUMMARY | 2025-03-07 08:00 | XMS_ITS | Encounter Summary ---
Author Organization [facility] Address [address] [place] [address] Care Team Providers Care Inspector Cold Working Name Role Phone Javad Donato MD Unavailable [phone] Javad Donato MD Primary Care Provider Wednesday, Michelle ARGUETA Unavailable [phone] Encounter Details Date Type Department Care Team (Late st Contact Info) Description 06/29/2023 Abstract [facility] [place] [facility] 112 [facility] 110 [place] [address] Javad Donato MD [address] [facility] 110 [place], [place] [address] Social History Tobacco Use Types Packs/Day Years [...] any clubs o r organizations such as synagogue groups, unions, fraternal or athletic groups, or [...] Recorded Patient Health Questionnaire-2 Score 0 05/17/2023 [facility] - Occupational [...] EDT [facility] 112 [facility] 110 [place] [address] Javad Donato MD [address] [facility] 110 [place] [address] 04/30/2025 8:00 AM EST Office Visit [facility] Michele [facility] [place] [address] Jose Robins, CAMPUS SECURITY OFFICER [address] [place], [place] [id number] documented as of this encounter Visit Diagnoses Not on filedocumented in this encounter Care Teams Inspector Cold Working Relationship Specialty Start Date End Date Javad Donato MD [address] [place] [address] [place] [address] PCP - ACO Reach 11/19/22 Javad Donato MD [address] [place] 110 [place] [address] PCP - General Internal Medicine 01/05/23WednesdayMichelle LPN [address] [place] [address] Licensed Practical Nurse Family Medicine 05/08/24 05/16/24 documented as of this encounter
--- OUTSIDE RECORDS SUMMARY | 2025-03-07 08:00 | XMS_ITS | Encounter Summary ---
Author Organization [facility] Address [address] [place] [address] Care Team Providers Care Musical Instrument Maker Or Repairer Name Role Phone Javad Donato MD Unavailable [phone] Javad Donato MD Primary Care Provider [phone] Wednesday, Michelle ARGUETA Unavailable [phone] Encounter Details Date Type Department Care Team (Late st Contact Info) Description 03/16/2023 Abstract [facility] [place] [address] [facility] 110 [place] [address] Javad Donato MD [address] [facility] 110 [place] [address] Social History Tobacco Use Types Packs/Day Years [...] [place] [address] [place] [address] [place] [address] Javad Donato MD [address] [place] [address] [place] [address] 04/30/2025 8:00 AM EST Office Visit [facility] [address] ERMELIN[address] SHAHRZADUNIV[facility] [place] [address] Jose Robins, EXHIBITION CARVER [address] [place] [address] documented as of this encounter Visit Diagnoses Not on filedocumented in this encounter Care Teams Musical Instrument Maker Or Repairer Relationship Specialty Start Date End Date Javad Donato MD [address] [place] [address] [place] [address] PCP - ACO Reach 11/19/22 Javad Donato MD [address] [place] [address] [place] [address] PCP - General Internal Medicine 01/05/23Wednesday, ELLIE Martinez [address] [place] [address] Licensed Practical Nurse Family Medicine 05/08/24 05/16/24 documented as of this encounter
--- OUTSIDE RECORDS SUMMARY | 2025-03-07 08:00 | XMS_ITS | Encounter Summary ---
Author Organization [facility] Address [address] [place] [address] Care Team Providers Care Ve Teacher Name Role Phone Javad Donato MD Unavailable [phone] Javad Donato MD Primary Care Provider [phone] Encounter Details Date Type Department Care Team (Late st Contact Info) Description 06/15/2024 Abstract [facility] [place] [facility] [address] [facility] 110 [place] [address] Javad Donato MD 112 [facility] 110 [place], [place] [address] Social History Tobacco Use Types Packs/Day Years [...] How often do you attend [facility] or synagogue services? 1 to 4 times per year [...] Recorded Patient Health Questionnaire-2 Score 0 06/08/2024 [facility] Occupat ional Health - [...] place to sleep or slept in a fdc (including now)? No 05/10/2023 Sex and Gender [...] [facility] [place] [facility] [address] [facility] 110 [place] [address] Javad Donato MD [address] [facility] 110 [place] [address] 04/30/2025 8:00 AM EST Office Visit [facility] [address] [place] [address] Jose Robins, SOLAR MECHANICAL ENGINEER [address] [place], [place] [address] documented as of this encounter Visit Diagnoses Not on filedocumented in this encounter Care Teams Ve Teacher Relationship Specialty Start Date End Date Javad Donato MD [address] [facility] 110 [place] [address] PCP - ACO Reach 11/19/22 Javad Donato MD [address] [facility] 110 [place] [address] PCP - General Internal Medicine 01/05/23 documented as of this encounter
--- OUTSIDE RECORDS SUMMARY | 2025-03-07 08:00 | XMS_ITS | Encounter Summary ---
Author Organization [facility] Address [address] [place] [address] Care Team Providers Care Supervisor Telephone Information Name Role Phone Javad Donato MD Unavailable [phone] Javad Donato MD Primary Care Provider Wednesday, Michelle ARGUETA Unavailable [phone] Encounter Details Date Type Department Care Team (Late st Contact Info) Description 05/17/2023 Abstract [facility] [place] [facility] 112 [facility] 110 [place] [address] Javad Donato MD 112 [facility] 110 [place], [place] [address] Social History Tobacco Use Types Packs/Day Years [...] How often do you attend chur or zoroastrianism services? 1 to 4 times per year [...] [address] [place] [address] [place] [address] Javad Donato MD [address] [place] [address] [place] [address] 04/30/2025 8:00 AM EST Office Visit [facility] [address] [place] [address] Jose Robins, SENIOR JAVA DATA ARCHITECT [address] [place] [address] documented as of this encounter Visit Diagnoses Not on filedocumented in this encounter Care Teams Supervisor Telephone Information Relationship Specialty Start Date End Date Javad Donato MD [address] [place] [address] [place] [address] PCP - ACO Reach 11/19/22 Javad Donato MD [address] [place] [address] [place] [address] PCP - General Internal Medicine 01/05/23WednesdayMichelle LPN [address] [place] [address] Licensed Practical Nurse Family Medicine 05/08/24 05/16/24 documented as of this encounter
--- OUTSIDE RECORDS SUMMARY | 2025-03-07 08:00 | XMS_ITS | Encounter Summary ---
Author Organization [facility] Address [address] [place] [address] Care Team Providers Care Auto Design Checker Name Role Phone Javad Donato MD Unavailable [phone] Javad Donato MD Primary Care Provider Wednesday, Michelle ARGUETA Unavailable [phone] Encounter Details Date Type Department Care Team (Late st Contact Info) Description 06/14/2023 Orders Only [facility] [place] [facility] [address] [place] [address] [place] [address] A, Unknown Practice [address] [place] [address] Social History Tobacco Use Types [...] How often do you attend chur or judaism services? 1 to 4 times per year 05/10/2023 Do you belong to any clubs o r organizations such as shinto groups, unions, fraternal or athletic groups, or [...] 9:00 AM EDT [facility] [place] [facility] [address] [facility] 110 [place] [address] Javad Donato MD [address] [place] [address] [place] [address] 04/30/2025 8:00 AM EST Office Visit [facility] Michele [facility] [place] [address] Jose Robins, FINANCIAL OFFICER [address] [place] [address] documented as of this encounter Procedures Procedure Name Priority Date/Time Associated Diagnosis Comments SCANNED LABS Routine 06/08/2023 9:05 AM EST documented in this encounter Results * SCANNED LABS (06/08/2023 9:05 AM EST) us Unknown Practice A LAB CHG PERFORMABLES Final Re sult documented in this encounter Visit Diagnoses Not on filedocumented in this encounter Care Teams Auto Design Checker Relationship Specialty Start Date End Date Javad Donato MD [address] [place] [address] [place] [address] PCP - ACO Reach 11/19/22 Javad Donato MD [address] [place] [address] [place] [address] PCP - General Internal Medicine 01/05/23Wednesday, ELLIE Martinez [address] [place] [address] Licensed Practical Nurse Family Medicine 05/08/24 05/16/24 documented as of this encounter
--- OUTSIDE RECORDS SUMMARY | 2025-03-07 08:00 | XMS_ITS | Encounter Summary ---
Author Organization [facility] Address [address] [place] [address] Care Team Providers Care Tetryl Nitrator Operator Name Role Phone Javad Donato MD Unavailable [phone] Javad Donato MD Primary Care Provider [phone] Wednesday, Michelle ARGUETA Unavailable [phone] Encounter Details Date Type Department Care Team (Late st Contact Info) Description 06/29/2023 Orders Only [facility] [place] [facility] [address] [place] [address] [place] [address] A, Unknown Practice [address] [place] [address] Social History Tobacco Use Types [...] How often do you attend chur or mandaen services? 1 to 4 times per year [...] Recorded Patient Health Questionnaire-2 Score 0 05/17/2023 [facility] of Occupat ional Health [...] AM EDT Office Visit [facility] [place] [facility] [address] [facility] 110 [place] [address] Javad Donato MD [address] [place] [address] [place] [address] 04/30/2025 8:00 AM EST Office Visit [facility] Michele [facility] [place] [address] Jose Robins, MANAGER SERVICING [address] [place] [address] documented as of this encounter Procedures Procedure [...] on filedocumented in this encounter Care Teams Tetryl Nitrator Operator Relationship Specialty Start Date End Date Javad Donato MD [address] [place] [address] [place] [address] PCP - ACO Reach 11/19/22 Javad Donato MD [address] [place] [address] [place] [address] PCP - General Internal Medicine 01/05/23Wednesday, ELLIE Martinez [address] [place] [address] Licensed Practical Nurse Family Medicine 05/08/24 05/16/24 documented as of this encounter
--- OUTSIDE RECORDS SUMMARY | 2025-03-07 08:00 | XMS_ITS | Encounter Summary ---
Author Organization [facility] Address [address] [place] [address] Care Team Providers Care Maintenance Millwright Name Role Phone Unavailable Primary Care Provider Unavailabl e Source Comments In the event this information is protected by the Federal Confidentiality of Alcohol and Drug AbusePatient Records regulations: The Federal rules restrict any use of the information to criminally investigate or prosecute any alcohol or drug abuse patient.[facility] Encounter Details Date Type Department Care Team (Late st Contact Info) Description 04/13/2023 Get Medical Advice [facility] [address] [place] [address] Mercedes Pan PA-C [address] [place] [address] Pain management reports Social History Tobacco Use Types Packs/Day Years Used Date Smoking Tobacco: Never Assessed PHQ-2 Answer Date Recorded PHQ-2 score 1 04/13/2023 Area Deprivation Index Answer Date Jeronimo rded National Score (1-100), lower number is lower ri sk 76 04/13/2023 State Score (1-10), lower number is lower risk 6 04/13/2023 Data from: https://www.neighborhoodatlas.[facility].edu/. Last address used for calculation [address] [...]
--- OUTSIDE RECORDS SUMMARY | 2025-03-07 08:00 | XMS_ITS | Encounter Summary ---
Author Organization [facility] Address [address] [place] [address] Care Team Providers Care Digital Composer Name Role Phone Javad Donato MD Unavailable [phone] Javad Donato MD Primary Care Provider [phone] Wednesday, Michelle ARGUETA Unavailable [phone] Encounter Details Date Type Department Care Team (Late st Contact Info) Description 03/02/2023 Abstract [facility] [place] [address] [facility] 110 [place] [address] Javad Donato MD [address] [facility] 110 [place] [address] Social History Tobacco Use Types Packs/Day Years [...] [place] [address] [place] [address] [place] [address] Javad Donato MD [address] [place] [address] [place] [address] 04/30/2025 8:00 AM EST Office Visit [facility] [address] [place] [address] Jose Robins, TUBE MACHINE OPERATOR HELPER [address] [place] [address] documented as of this encounter Visit Diagnoses Not on filedocumented in this encounter Care Teams Digital Composer Relationship Specialty Start Date End Date Javad Donato MD [address] [place] [address] [place] [address] PCP - ACO Reach 11/19/22 Javad Donato MD [address] [place] [address] [place] [address] PCP - General Internal Medicine 01/05/23Wednesday, ELLIE Martinez [address] [place] [address] Licensed Practical Nurse Family Medicine 05/08/24 05/16/24 documented as of this encounter
--- OUTSIDE RECORDS SUMMARY | 2025-03-07 08:00 | XMS_ITS | Encounter Summary ---
Author Organization [facility] Address [address] [place] [address] Care Team Providers Care Chief Client Officer Name Role Phone Javad Donato MD Unavailable [phone] Javad Donato MD Primary Care Provider Wednesday, Michelle ARGUETA Unavailable [phone] Encounter Details Date Type Department Care Team (Late st Contact Info) Description 07/07/2023 Abstract [facility] [place] [facility] 112 [facility] 110 [place] [address] Javad Donato MD 112 [facility] 110 [place], [place] [address] Social History Tobacco Use Types Packs/Day Years [...] How often do you attend chur or jehovah's witness services? 1 to 4 times per year [...] place to sleep or slept in a care home (including now)? No 05/10/2023 Sex and [...] 9:00 AM EDT Office Visit [facility] [address] [place] [address] [place] [address] Javad Donato MD [address] [place] [address] [place] [address] 04/30/2025 8:00 AM EST Office Visit [facility] [address] [place] [address] Jose Robins, ASSET PROTECTION PROFESSIONAL [address] [place] [address] documented as of this encounter Visit Diagnoses Not on filedocumented in this encounter Care Teams Chief Client Officer Relationship Specialty Start Date End Date Javad Donato MD [address] [place] [address] [place] [address] PCP - ACO Reach 11/19/22 Javad Donato MD [address] [place] [address] [place] [address] PCP - General Internal Medicine 01/05/23Wednesday, ELLIE Martinez [address] [place] [address] Licensed Practical Nurse Family Medicine 05/08/24 05/16/24 documented as of this encounter
--- OUTSIDE RECORDS SUMMARY | 2025-03-07 08:00 | XMS_ITS | Encounter Summary ---
Author Organization [facility] Address [address] [place] [address] Care Team Providers Care Healthcare Technician Name Role Phone Javad Donato MD Unavailable [phone] Javad Donato MD Primary Care Provider [phone] Wednesday, Michelle ARGUETA Unavailable [phone] Encounter Details Date Type Department Care Team (Late st Contact Info) Description 02/03/2023 Abstract [facility] [place] [address] [facility] 110 [place] [address] Javad Donato MD [address] [facility] 110 [place] [address] Social History Tobacco Use Types Packs/Day Years [...] [place] [address] [place] [address] [place] [address] Javad Donato MD [address] [place] [address] [place] [address] 04/30/2025 8:00 AM EST Office Visit [facility] [address] ERM[address] [place] [address] Jose Robins, ROUTER OPERATOR RADIAL [address] [place] [address] documented as of this encounter Visit Diagnoses Not on filedocumented in this encounter Care Teams Healthcare Technician Relationship Specialty Start Date End Date Javad Donato MD [address] [place] [address] [place] [address] PCP - ACO Reach 11/19/22 Javad Donato MD [address] [place] [address] [place] [address] PCP - General Internal Medicine 01/05/23Wednesday, ELLIE Martinez [address] [place] [address] Licensed Practical Nurse Family Medicine 05/08/24 05/16/24 documented as of this encounter
--- OUTSIDE RECORDS SUMMARY | 2025-03-07 08:00 | XMS_ITS | Encounter Summary ---
Author Organization [facility] Address [address] [place] [address] Care Team Providers Care Grades 1 Thru 6 Home Teacher Name Role Phone Javad Donato MD Unavailable [phone] Javad Donato MD Primary Care Provider [phone] Encounter Details Date Type Department Care Team [...] How often do you attend chur or restorationism services? 1 to 4 times per year [...] Recorded Patient Health Questionnaire-2 Score 0 06/08/2024 [facility] of Occupat ional Health - Occupational Stress [...] place to sleep or slept in a skilled nursing (including now)? No 05/10/2023 Sex and Gender [...] EDT Office Visit [facility] [address] [facility] 110 [place] [address] Javad Donato MD 112 [facility] 110 [place] [address] 04/30/2025 8:00 AM EST Office Visit [facility] [address] [address] Jose Robins, YISEL [address] [place], [place] [address] documented as of this encounter Procedures Procedure Name Priority Date/Time Associated Diagnosis Comments XR LUMBAR SPINE 6V W BENDING 06/17/2024 7:57 AM EST documented in this encounter Results * XR LUMBAR SPINE 6V W BENDING (06/17/2024 7:57 AM EST) Anatomical Region Laterality Modality Other 06/17/2024 7:57 AM EST Narrative 06/17/2024 7:59 [place] [address] XRay Report Signed Patient: CANDACE VELA MR#: [id number] : 1955 Acct:[id number] Age/Sex: 69 / M ADM Date: 06/16/24 Loc: RAD Attending Dr: Yosef Cheema NP Ordering Physician: Yosef Cheema NP Date of Service: 06/16/24 Procedure(s): XR lumbar spine 6V w bending Accession Number(s): [id number] cc: JAVAD DONATO ; Yosef Cheema NP [place] [address] Patient Name: CANDACE VELA MRN: [id number] date: 1955 Sex: M Assigned Patient Location: [facility] Current Patient Location: Accession/Order Number: [id number] Exam Date: 06/16/2024 12:03 Report Date: 06/17/2024 [...] Signed By: 06/17/24 0759 DD/ 0757 TD/TT: Collision Mechanic: Procedure Note Radiology, Radiologist, MD - 06/17/2024 [place] [address] XRay Report Signed Patient: CANDACE VELA GMR#: [id number] : 1955cct:[id number] Age/Sex: 69 / MADM Date: 06/16/24 Loc: RAD Attending Dr: Yosef Cheema NP Ordering Physician: Yosef Cheema NP Date of Service: 06/16/24 Procedure(s): XR lumbar spine 6V w bending Accession Number(s): [id number] cc: JAVAD DONATO ; Yosef Cheema NP [place] [address] Patient Name: CANDACE VELA MRN: [id number] date: 1955 Sex: M Assigned Patient Location: [facility] Current Patient Location: Accession/Order Number: [id number] Exam Date: 06/16/2024 12:03 Report Date: 06/17/2024 [...] M.D. Signed By:06/17/24 0759 DD/ 0757 TD/TT: Collision Mechanic: us Generic External Data Provider [facility] Final Result documented in this encounter Visit Diagnoses Not on filedocumented in this encounter Care Teams Grades 1 Thru 6 Home Teacher Relationship Specialty Start Date End Date Javad Donato MD [address] [facility] 110 [place] [address] PCP - ACO Reach 11/19/22 Javad Donato MD [address] [facility] 110 [place] [address] PCP - General Internal Medicine 01/05/23 documented as of this encounter
--- OUTSIDE RECORDS SUMMARY | 2025-03-07 08:00 | XMS_ITS | Encounter Summary ---
Author Organization [facility] Address [address] [place] [address] Care Team Providers Care Electrical Helper Name Role Phone Javad Donato MD Unavailable [phone] Javad Donato MD Primary Care Provider Wednesday, Michelle ARGUETA Unavailable [phone] Reason for Visit * Reason Onset Date Comments Med Refill 12/07/2023 Encounter Details Date Type Department Care Team (Late st Contact Info) Description 12/07/2023 Refill [facility] [place] [facility] [address] [facility] 110 [place] [address] Javad Donato MD [address] [facility] 110 [place], [place] [address] Social History Tobacco Use Types Packs/Day Years [...] often do you attend chur ch or voodoo services? 1 to 4 times per year 05/10/2023 Do you belong to any clubs o r organizations such as orthodoxy groups, unions, fraternal or athletic groups, or [...] Recorded Patient Health Questionnaire-2 Score 0 05/17/2023 [facility] of Occupat ional Health - Occupational [...] 9:00 AM EDT Office Visit [facility] [place] [facility] [address] [facility] 110 [place] [address] Javad Donato MD [address] [facility] 110 [place] [address] 04/30/2025 8:00 AM EST Office Visit [facility] [address] [place] [address] Jose Robins, COMMUNITY ORGANIZATION AIDE [address] [place] [address] documented as of this encounter Visit Diagnoses Not on filedocumented in this encounter Care Teams Electrical Helper Relationship Specialty Start Date End Date Javad Donato MD [address] [place] [address] [place] [address] PCP - ACO Reach 11/19/22 Javad Donato MD [address] [place] [address] [place] [address] PCP - General Internal Medicine 01/05/23Wednesday, ELLIE Martinez [address] [place] [address] Licensed Practical Nurse Family Medicine 05/08/24 05/16/24 documented as of this encounter
--- OUTSIDE RECORDS SUMMARY | 2025-03-07 08:00 | XMS_ITS | Encounter Summary ---
Author Organization [facility] Address [address] [place] [address] Care Team Providers Care Guest Room Inspector Name Role Phone Javad oDnato MD Unavailable [phone] Javad Donato MD Primary Care Provider [phone] Wednesday, Michelle ARGUETA Unavailable [phone] Reason for Referral * Rehabilitation - Outpatient (Routine) - Closed Specialty Diagnoses / Procedures Referred By Rayray barkley Referred To Contact Physical Therapy Diagnoses Arthritis of left hip Procedures HI OFFICE/OUTPATIENT [facility] 60 MINUTES Jose Robins NP [address] [place] [address] Phone: tel: fax: [facility] [address] [place] [address] Phone: tel: fax: Referral ID Status Reason Start Date Expiration Date V isits Requested Visits Authorized [id number] Closed Specialty Services Required 05/03/2024 06/27/2024 1 1 Encounter Details Date Type Department Care Team (Late st Contact Info) Description 05/03/2024 Orders Only [facility] [address] [place] [address] Jose Robins NP [address] [place], [place] [id number] Arthritis of left hip (Primary Dx) Social [...] often do you attend chur ch or shinto services? 1 to 4 times per year [...] Recorded Patient Health Questionnaire-2 Score 0 05/17/2023 [facility] - Occupational Stress Questionnaire Answer Date [...] [address] [place] [address] Javad Donato MD [address] [place] [address] 04/30/2025 8:00 AM EST Office Visit [facility] [address] [facility] [place] [phone] Jose Robins, YISEL [address] [place] [address] Scheduled Referrals Name Type Priority Associated Diagnoses Order Schedule Ambulatory referral to Physical Therapy Outpatient Referral Routine Arthritis of left hip Expected: 05/03/2024 (Approximate), Expires: 10/31/2024 documented as of this encounter Visit Diagnoses Diagnosis Arthritis of left hip- Primary documented in this encounter Care Teams Guest Room Inspector Relationship Specialty Start Date End Date Javad Donato MD [address] [facility] [address] [place] [address] PCP - ACO Reach 11/19/22 Javad Donato MD [address] [place] [address] PCP - General Internal Medicine 01/05/23WednesdayMichelle LPN [address] [place] [address] Licensed Practical Nurse Family Medicine 05/08/24 05/16/24 documented as of this encounter
--- OUTSIDE RECORDS SUMMARY | 2025-03-07 08:00 | XMS_ITS | Encounter Summary ---
Author Organization [facility] Address [address] [place] [address] Care Team Providers Care Auction Clerk Name Role Phone Javad Donato MD Unavailable [phone] Javad Donato MD Primary Care Provider Wednesday, Michelle ARGUETA Unavailable [phone] Encounter Details Date Type Department Care Team (Late st Contact Info) Description 07/05/2023 Abstract [facility] [place] [facility] 112 [facility] 110 [place] [address] Javad Donato MD 112 [facility] 110 [place], [place] [id number] Social History Tobacco Use Types Packs/Day Years [...] AM EDT Office Visit [facility] [address] [place] [phone] Javad Donato MD [address] [place] [address] 04/30/2025 8:00 AM EST Office Visit [facility] [address] [place] [address] Jose Robins, HAIRSPRING INSPECTOR [address] [place] [address] documented as of this encounter Visit Diagnoses Not on filedocumented in this encounter Care Teams Auction Clerk Relationship Specialty Start Date End Date Javad Donato MD [address] [place] [address] PCP - ACO Reach 11/19/22 Javad Donato MD [address] [place] [address] PCP - General Internal Medicine 01/05/23Wednesday, ELLIE Martinez [address] [place] [address] Licensed Practical Nurse Family Medicine 05/08/24 05/16/24 documented as of this encounter
--- OUTSIDE RECORDS SUMMARY | 2025-03-07 08:00 | XMS_ITS | Encounter Summary ---
Author Organization [facility] Address [address] [place] [address] Care Team Providers Care Tile Power Shear Operator Name Role Phone Javad Donato MD Unavailable [phone] Javad Donato MD Primary Care Provider [phone] Reason for Visit * Reason Onset Date Comments Med Refill 02/23/2025 Encounter Details Date Type Department Care Team (Late st Contact Info) Description 02/23/2025 [facility] [place] [facility] [address] [facility] [address] [place] [address] France Farah LPN [address] [place] [address] Primary osteoarthritis of first carpometacarpal joint of left hand Social History Tobacco Use Types Packs/Day Years [...] any clubs o r organizations such as restorationist groups, unions, fraternal or athletic groups, or [...] AM EDT [facility] [address] [facility] 110 [place] [address] Javad Donato MD 112 [facility] 110 [place] [address] 04/30/2025 8:00 AM EST Office Visit [facility] [address] [place] [address] Jose Robins, PRINT SHOP ASSISTANT [address] [place], [place] [address] documented as of this encounter Visit Diagnoses Diagnosis Primary osteoarthritis of first carpometacarpal joint of left hand documented in this encounter Care Teams Tile Power Shear Operator Relationship Specialty Start Date End Date Javad Donato MD [address] [facility] 110 [place] [address] PCP - ACO Reach 11/19/22 Javad Donato MD [address] [address] PCP - General Internal Medicine 01/05/23 documented as of this encounter
--- OUTSIDE RECORDS SUMMARY | 2025-03-07 08:00 | XMS_ITS | Encounter Summary ---
Author Organization [facility] Address [address] [place] [address] Care Team Providers Care Curing Supervisor Name Role Phone Javad Donato MD Unavailable [phone] Javad Donato MD Primary Care Provider Wednesday, Michelle ARGUETA Unavailable [phone] Encounter Details Date Type Department Care Team (Late st Contact Info) Description 07/07/2023 [facility] [place] [facility] 112 [facility] 110 [place] [address] Javad Donato MD 112 [facility] 110 [place], [place] [address] Social History Tobacco Use Types Packs/Day Years [...] 9:00 AM EDT Office Visit [facility] [address] [place] [address] Javad Donato MD [address] [place] [address] 04/30/2025 8:00 AM EST Office Visit [facility] [address] [place] [address] Jose Robins, PROFILER HAND [address] [place] [address] documented as of this encounter Visit Diagnoses Not on filedocumented in this encounter Care Teams Curing Supervisor Relationship Specialty Start Date End Date Javad Donato MD [address] [place] [address] PCP - ACO Reach 11/19/22 Javad Donato MD [address] [place] [address] PCP - General Internal Medicine 01/05/23Wednesday, ELLIE Martinez [address] [place] [address] Licensed Practical Nurse Family Medicine 05/08/24 05/16/24 documented as of this encounter
--- OUTSIDE RECORDS SUMMARY | 2025-03-07 08:00 | XMS_ITS | Clinical Summary ---
Author Organization [facility] [address] [facility] [place] [address] Care Team Providers Care Coupon Collection Clerk Name Role Phone Javad Donato MD Unavailable [phone] Javad Donato MD Primary Care Provider [phone] Allergies Active Allergy Reactions Criticality Noted Date [...] each day at the same time. Active magnesium 30 MG tablet Take 30 mg by mouth in the morning and 30 mg before bedtime. Active irbesartan-hydroCHL OROthiazide (Avalide) 150-12.5 MG tabletIndications:B enign essential hypertension Take 1 tablet by mouth Daily 100 tablet 3 06/23/20 24 Active HYDROcodone-acetami nophen ([place]ague) 5-325 MG tabletIndications:H erniated lumbar disc without [...] food 4 tablet 3 11/30/19 25 Active meloxicam (Mobic) 15 MG tabletIndications:P rimary osteoarthritis of first carpometacarpal joint of left hand Take 1 tablet (15 mg) by mouth Daily Take with food 100 tablet 3 02/24/20 25 Active meloxicam (Mobic) 15 MG tabletIndications:P rimary osteoarthritis of first carpometacarpal joint of left hand Take 1 tablet (15 mg) by mouth Daily Take with food 100 tablet 3 12/07/19 24 025 Discontin ued(Reord er) Active Problems [...] Encounters Date Type Department Care Team Description 02/23/2025 Refill [facility] [place] [facility] 112 [facility] 110 [place] [address] France Farah LPN Primary osteoarthritis of first carpometacarpal joint of left hand from Last 3 Months Immunizations Immunization Administration [...] How often do you attend chur or pentecostalism services? 1 to 4 times per year 05/10/2023 Do you belong to any clubs o r organizations such as temple groups, unions, fraternal or athletic groups, or [...] 04/26/2025 9:00 AM EDT Office Visit [facility] [place] [facility] [address] [facility] 110 [place] [address] Javad Donato MD 112 [facility] 110 [place] [address] 04/30/2025 8:00 AM EST Office Visit [facility] [address] [place] [address] Jose Robins, YISEL [address] [place], [place] [phone] Health Maintenance Due Date Last Done Comments [...] Narrative 07/12/2017 12:00 PM EST PERFORMED AT [facility] LOCATION:[id number] internal hemorrhoids, diverticulosis Procedure Note CONVERSION, GENERIC - 11/11/2022 PERFORMED AT [facility] LOCATION:[id number] internal hemorrhoids, diverticulosis Javad Donato MD ENDOSCOPY PROCEDURE ORDERABLES Final Result from Last 3 Months or Most Recently Relevant to Health Maintenance Insurance [employer] [facility] [place] Care Teams Coupon Collection Clerk Relationship Specialty Start Date End Date Javad Donato MD [address] [facility] 110 [place] [address] PCP - ACO Reach 11/19/22 Javad Donato MD [address] [facility] 110 [place] [address] PCP - General Internal Medicine 01/05/23
--- OUTSIDE RECORDS SUMMARY | 2025-03-07 08:03 | XMS_ITS | CCD ---
Author Organization [facility] Care Team Providers Care Trans Router Name Role Phone JAVAD DONATO Primary Care [...] Fletcher Admitting Unavailable HAWTHORNE ., DR ANTIONE Fltecher Consulting Unavailable MARIBEL, DR MANN Primary Care [...] Unavailable LAKSHMIPATHY ., JUN Attending Peyton vailable MARBIEL, DR MANN Primary Care Unavailable RA, DR [...] ., NARENDRANATH Admitting Peyton vailable MARIBEL, DR AMNN Primary Care Unavailable LAKSHMIPATHY ., NARENDRANATH Consulting [...] SAINI Consulting Unavailable CAMILLE BAILEY Consulting Unavailable Eirca Xiong Unavailable SIMONA Donato Primary Care Provider [phone] ANGELA Xiong Attending Provider Erica Xiong Admitting Unavailable Erica Xiong Attending Unavailable Javad Donato Primary Care Unavailable Unavailable Primary Care Provider UnavailLAILA Cardenas Attending Unavailable Javad Donato MD Unavailable [phone] Javad Donato MD Primary Care Provider CHARISSA [...] DONATO Primary Care Unavailable ROSSY, CHARISSA Rose Admitting Unavailable ROSSY, CHARISSA Rose Attending Unavailable JAVAD DONATO Primary Care Unavailable Wednesday INDUSTRIAL ENGINEERING ANALYST, Michelle Unavailable Wednesday INDUSTRIAL ENGINEERING ANALYST, Michelle Unavailable Javad Donato MD Primary Care Provider JEANNA MENDIOLA Attending Unavailable HERNÁNDEZ, JOSE Barkley Referring Unavailable HEMMERALMA Attending Unavailable HERNÁNDEZ, JOSE Barkley Attending Unavailable JAVAD DONATO Attending Unavailable HERNÁNDEZ, JOSE Barkley Attending Unavailable HERNÁNDEZ, JOSE T Referring Unavailable HEMMER, ALMA Gaona Attending Unavailable [...] Unavailable JEANNA MENDIOLA Attending Unavailable HERNÁNDEZ, JOSE Brett Referring Unavailable JEANNA MENDIOLA Attending Unavailable HERNÁNDEZ, JOSE T Referring Unavailable Mac SANTIAGO Attending Unavailable Mac SANTIAGO Attending Unavailable Mac SANTIAGO Attending Unavailable Justine BAER, Lidia Koch Attending [...] every six hours for pain HYDROcodone-aceta minophen ([place]) 5-325 MG tablet Indications: Herniated lumbar disc [...] tablet 04/06/2024 05/06/2024 Active Start: 06-08-2023 End: 02-10-2024 take 1 tablet by mouth at mealtime [...] Daily, # 90 tab(s), Refills(s) 3, Pharmacy: [facility] [id number], 186, cm, 02/05/25 10:36:00 EDT, Height/Length Dosing, [...] tablet (20 sources) Nonsteroidal Anti-inflammatory Drug Start: 12-07-2023 take 1 tablet by mouth once daily [...] Daily, # 90 tab(s), Refills(s) 3, Pharmacy: [facility] [id number], 186, cm, 02/05/25 10:36:00 EDT, Height/Length Dosing, [...] BID, # 180 cap(s), Refills(s) 3, Pharmacy: [facility] [id number], 186, cm, 02/05/25 10:36:00 EDT, Height/Length Dosing, 130.4, kg, 02/05/25 10:36:00 EDT, Weight Dosing Start Date: 02/05/25 Status: Ordered Quantity: 180.0 Unit: cap(s) Repeat number: 4 Start: 08-21-2022 take 1 capsule by mo [facility] every twenty-four hours in the morning tamsulosin (Flomax) 0.4 MG 24 hr capsule Take 0.4 mg by mouth in the morning and 0.4 mg before bedtime. 08/21/2022 Active Start: 06-30-2021 take 1 capsule by mo [facility] twice daily tamsulosin 0.4 mg Cap 0.4 mg = 1 cap(s), Oral, BID, # 60 cap(s), Refills(s) 11, Pharmacy: [facility] [id number], 186, cm, 02/08/23 11:10:00 EDT, Height/Length Dosing, [...] (3 sources) take 1 tablet by yvon in the morning vitamin B complex (B [...] Start: 02-07-2024 take 1 capsule by mo [facility] once daily Vitamin B Complex oral capsule [...] Status: Ordered Repeat number: 1 Start: 02-16-2022 take 1 mg by mouth [...] and Sildenafil 100mg prn. refills sent to Stephanie Rodas PCP checks PSA. Most recent PSA [...] and Finasteride wo changes. Refills sent to Stephanie. -Cont monitoring PSA w/ PCP. Shares he [...] Contact Information PAMELA BAER, Mac Stephenson, URL [address] [place] [address] [place] [address] Additional Instructions: 1 yr (PCP checks PSA) [...] tablet, 200 mg= 1 tab(s), Oral, q24hr [place] 325 mg-5 mg oral tablet, 1 tab(s), [...] 05/18/2023 Recorded (more content not included)... Normal [facility] Comment on above: Result Comment: Elec tronically Signed By: Mac SANTIAGO MD\.br\Date and Time Signed: 02/05/25 11:58 EDT\.br\Electronically Co-Signed By: Kaleigh Donato\.br\Date and Time Co-Signed: 02/05/25 11:52 EDT XR Hip - left 3 Viewson 05-0 [...] Unremarkable left total hip arthroplasty. Jose Hernández COMMERCIAL LOAN CLOSER-LIVING MANAGER [facility] [employer] [facility] [facility] [employer] Radiology Study observation (narrative) [facility] [employer] Laboratory - Hematology and Cell countson 10-25-2024 HbA1c (Bld) [Mass fraction] 5.8 % [facility] [employer] No Panel Informationon 10-25 [facility]YSTripvi e MR LUMBAR SPINE WO CONTRASTo n [...] BY: Clark Landeros, DO Normal Not Available [facility] US LOWER EXTREMITY MEGHNA RIAL DUPLEX BILATERALon 06-22-2024 [facility] US LOWER EXTREMITY ARTERIAL DUPLEX [...] Location: Velocity/Waveform Location: Velocity/Waveform THIGH: THIGH: R WOOL TAMPER: 165 T L WOOL TAMPER: 119 T R SFA PROX: 101 T L SFA PROX: 121 T R SFA MID: 96 T L SFA MID 103 T R SFA DIST: 104 T L SFA DIST: 81 T R POP A: 54 T L POP A: 65 T CALF: CALF: R KAMERON: 111 T L KAMERON: 80 T R HOUSEMAN PROX: 105 T L HOUSEMAN PROX: 123 T R HOUSEMAN MID: 139 T L HOUSEMAN MID: 125 T R HOUSEMAN DIST: 129 T L HOUSEMAN DIST: 151 T R SALINAS: 105 B L SALINAS: 76 T IMPRESSION: No significant findings. Mild plaque in the right common femoral artery with less than 50% stenosis. *This report is generated using voice recognition reporting (FooPets). On occasion Bandwave System[employer] erroneously drops words from the report or [...] Comment on above: Performed By: #### 1 695, 66148 #### [facility] [place] [address] Manufacturing Sr Engineer: Katarzyna Khan #### 5363, 7860, 496 #### [facility] [address], [address] [place] [phone] Manufacturing Sr Engineer: Casey Chi MD Hematocrit (Bld) [Volume fraction] 37.3 % Low 38.5-50.0 [facility] Comment on above: Performed By: #### 1 871, 74814 #### [facility] [address] [place] [address] Manufacturing Sr Engineer: Katarzyna Khan #### 5363, 3695, 496 #### [facility] [place] [address] [address] , [address] [place] [address] Manufacturing Sr Engineer: Casey Chi MD Hemoglobin (Bld) [Mass/Vol] 12.0 g/dL Low 13.2-17.1 [facility] Comment on above: Performed By: #### 1 759, 93355 #### [facility] [address] [place] [address] Manufacturing Sr Engineer: Katarzyna Khan #### 5363, 7600, 496 #### [facility] [place] [address], [address] [place] [address] Manufacturing Sr Engineer: Casey Chi MD MCH (RBC) [Entitic mass] 28.0 pg Normal 27.0-33.0 [facility] Comment on above: Performed By: #### 1 759, 18807 #### [facility] [phone] Manufacturing Sr Engineer: Katarzyna Khan #### 5363, 7600, 496 #### [facility] [address], [address] [place] [address] Manufacturing Sr Engineer: Casey Chi MD MCHC (RBC) [Mass/Vol] 32.2 [...] clinical condition. Performed By: #### 1 759, 98065 #### [facility] [address] [place] [address] Manufacturing Sr Engineer: Katarzyna Khan #### 5363, 9560, 496 #### [facility] [address], [address] [place] [address] Manufacturing Sr Engineer: Casey Chi MD MCV (RBC) [Entitic vol] 86.9 fL Normal 80.0-100.0 [facility] Comment on above: Performed By: #### 1 759, 37505 #### [facility] [place] [address] Manufacturing Sr Engineer: Katarzyna Khan #### 5363, 7600, 496 #### [facility] [address], [address] [place] [address] Manufacturing Sr Engineer: Casey Chi MD Platelet mean volume (Bld) [Entitic vol] 9.1 fL Normal 7.5-12.5 [facility] Comment on above: Performed By: #### 1 759, 10841 #### [facility] [place] [address] Manufacturing Sr Engineer: Katarzyna Khan #### 5363, 7600, 496 #### [facility] [address], [address] [place] [address] Manufacturing Sr Engineer: Casey Chi MD Platelets (Bld) [#/Vol] 242 10*3/uL Normal 140-400 [facility] Comment on above: Performed By: #### 1 759, 99839 #### [facility] [place] [address] Manufacturing Sr Engineer: Katarzyna Khan #### 5363, 7600, 496 #### [facility] [address], [address] [place] [address] Manufacturing Sr Engineer: Casey Chi MD RBC (Bld) [#/Vol] 4.29 10*6/uL Normal 4.20-5.80 [facility] Comment on above: Performed By: #### 1 759, 61275 #### [facility]-[address] Manufacturing Sr Engineer: Katarzyna Khan #### 5363, 7600, 496 #### [facility] [address], [address] [place] [address] Manufacturing Sr Engineer: Casey Chi MD WBC (Bld) [#/Vol] 7.7 10*3/uL Normal 3.8-10.8 [facility] Comment on above: Performed By: #### 1 759, 44762 #### [facility]-[address] Manufacturing Sr Engineer: Katarzyna Khan #### 5363, 7600, 496 #### [facility] [address], [address] [place] [address] Manufacturing Sr Engineer: Casey Chi MD [facility] 06-15-2024 Albumin [Mass/Vol] 3.9 g/dL Normal 3.6-5.1 [facility] Comment on above: Performed By: #### 1 759, 91503 #### [facility] [address] Manufacturing Sr Engineer: Katarzyna Khan #### 5363, 2960, 496 #### [facility] [address], [address] [place] [address] Manufacturing Sr Engineer: Casey Chi MD Albumin/Globulin [Mass ratio] 1.5 {ratio} Normal 1.0-2.5 [facility] Comment on above: Performed By: #### 1 759, 25811 #### [facility] Manufacturing Sr Engineer: Katarzyna Khan #### 5363, 7600, 496 #### [facility] [address], [address] [place] [address] Manufacturing Sr Engineer: Casey Chi MD ALP [Catalytic activity/Vol] 71 U/L Normal 35-144 [facility] Comment on above: Performed By: #### 1 759, 83693 #### [facility] Manufacturing Sr Engineer: Katarzyna Khan #### 5363, 7600, 496 #### [facility] [address], [address] [place] [address] Manufacturing Sr Engineer: Casey Chi MD ALT [Catalytic activity/Vol] 18 U/L Normal 9-46 [facility] Comment on above: Performed By: #### 1 759, 68304 #### [facility] [place] [address] Manufacturing Sr Engineer: Katarzyna Khan #### 5363, 7600, 496 #### [facility] [address], [address] [place] [address] Manufacturing Sr Engineer: Casey Chi MD AST [Catalytic activity/Vol] 18 U/L Normal 10-35 [facility] Comment on above: Performed By: #### 1 759, 33121 #### [facility] [address] [place] [phone] Manufacturing Sr Engineer: Katarzyna Khan #### 5363, 7600, 496 #### [facility] [address], [address] [place] [address] Manufacturing Sr Engineer: Casey Chi MD Bilirubin [Mass/Vol] 0.6 mg/dL Normal 0.2-1.2 [facility] Comment on above: Performed By: #### 1 759, 04891 #### [facility] [address] Manufacturing Sr Engineer: Katarzyna Khan #### 5363, 7600, 496 #### [facility] [address], [address] [place] [address] Manufacturing Sr Engineer: Casey Chi MD BUN/CREATININE RATIO SEE NOTE: Normal 6-22 [facility] Comment on above: Result Comment: Not Reported: BUN and Creatinine are within reference range. Performed By: #### 1 759, 00761 #### [facility] [address] [place] [address] Manufacturing Sr Engineer: Katarzyna Khan #### 5363, 7600, 496 #### [facility] [address], [address] [place] [address] Manufacturing Sr Engineer: Casey Chi MD Calcium [Mass/Vol] 9.2 mg/dL Normal 8.6-10.3 [facility] Comment on above: Performed By: #### 1 759, 41838 #### [facility] [address] [place] [address] Manufacturing Sr Engineer: Katarzyna Khan #### 5363, 7600, 496 #### [facility] [address], [address] [place] [address] Manufacturing Sr Engineer: Casey Chi MD Chloride [Moles/Vol] 105 mmol/L Normal 98-110 [facility] Comment on above: Performed By: #### 1 759, 81024 #### [facility] [address] [place] [address] Manufacturing Sr Engineer: Katarzyna Khan #### 5363, 0450, 496 #### [facility] [address], [address] [place] [address] Manufacturing Sr Engineer: Casey Chi MD CO2 [Moles/Vol] 26 mmol/L Normal 20-32 [facility] Comment on above: Performed By: #### 1 759, 42688 #### [facility] [address] [place], [place] [address] Manufacturing Sr Engineer: Katarzyna Khan #### 5363, 7600, 496 #### [facility] [place] [address] Manufacturing Sr Engineer: Casey Chi MD Creatinine [Mass/Vol] 0.82 mg/dL Normal 0.70-1.28 [facility] Comment on above: Performed By: #### 1 759, 25623 #### [facility] [address] [place] [address] Manufacturing Sr Engineer: Katarzyna Khan #### 5363, 6490, 496 #### [facility] [place] [address] Manufacturing Sr Engineer: Casey Chi MD GFR/1.73 sq M.predicted among non-blacks MDRD (S/P/Bld) [Vol rate/Area] 94 mL/min/{1.73_m2} Normal > OR = 60 [facility] Comment on above: Performed By: #### 1 759, 60449 #### [facility] [address] [place] [address] Manufacturing Sr Engineer: Katarzyna Khan #### 5363, 7600, 496 #### [facility] [address], [address] [place] [address] Manufacturing Sr Engineer: Casey Chi MD Globulin (S) [Mass/Vol] 2.6 g/dL Normal 1.9-3.7 [facility] Comment on above: Performed By: #### 1 759, 86219 #### [facility] [address] Manufacturing Sr Engineer: Katarzyna hKan #### 5363, 7600, 496 #### [facility] [address], [address] [place] [address] Manufacturing Sr Engineer: Casey Chi MD Glucose [Mass/Vol] 106 mg/dL High 65-99 [facility] Comment on above: Result Comment: Fasting reference interval For someone without known diabetes, a glucose value between 100 and 125 mg/dL is consistent with prediabetes and should be confirmed with a follow-up test. Performed By: #### 1 759, 29877 #### [facility] [address] Manufacturing Sr Engineer: Katarzyna Khan #### 5363, 7600, 496 #### [facility] [address], [address] [place] [address] Manufacturing Sr Engineer: Casey Chi MD Potassium [Moles/Vol] 4.1 mmol/L Normal 3.5-5.3 [facility] Comment on above: Performed By: #### 1 759, 61774 #### [facility] [address] Manufacturing Sr Engineer: Katarzyna Khan #### 5363, 7600, 496 #### [facility] [address], [address] [place] [address] Manufacturing Sr Engineer: Casey Chi MD Protein [Mass/Vol] 6.5 g/dL Normal 6.1-8.1 [facility] Comment on above: Performed By: #### 1 759, 93103 #### [facility] [address] [place] [address] Manufacturing Sr Engineer: Katarzyna Khan #### 5363, 7600, 496 #### [facility] [address], [address] [place] [address] Manufacturing Sr Engineer: Casey Chi MD Sodium [Moles/Vol] 139 mmol/L Normal 135-146 [facility] Comment on above: Performed By: #### 1 759, 17729 #### [facility] [address] Manufacturing Sr Engineer: Katarzyna Khan #### 5363, 7600, 496 #### [facility] [address], [address] [place] [address] Manufacturing Sr Engineer: Casey Chi MD Urea nitrogen [Mass/Vol] 16 mg/dL Normal 7-25 [facility] Comment on above: Performed By: #### 1 759, 46459 #### [facility] [address] Manufacturing Sr Engineer: Katarzyna Khan #### 5363, 7600, 496 #### [facility] [address], [address] [place] [address] Manufacturing Sr Engineer: Casey Chi MD HEMOGLOBIN A1con 06-15-2024 HEMOGLOBIN [...] diagnosis of diabetes in children. According to [place] Diabetes Association (ADA) guidelines, hemoglobin A1c <7.0% represents optimal control in non- diabetic patients. Different metrics may apply to specific patient populations. Standards of Medical Care in Diabetes(ADA). Performed By: #### 1 759, 99141 #### [facility] [place] [address] Manufacturing Sr Engineer: Katarzyna Khan #### 5363, 7600, 496 #### [facility] [address], [address] [place] [address] Manufacturing Sr Engineer: Casey Chi MD LIPID PANEL, [place] [address] Cholesterol [Mass/Vol] 172 mg/dL Normal <200 [facility] Comment on above: Order Comment: FASTI NG:YES FASTING: YES Performed By: #### 1 759, 14948 #### [facility] [address] [place] [address] Manufacturing Sr Engineer: Katarzyna Khan #### 5363, 7600, 496 #### [facility] [address], [address] [place] [address] Manufacturing Sr Engineer: Casey Chi MD Cholesterol in HDL [Mass/Vol] 32 mg/dL Low > OR = 40 [facility] Comment on above: Order Comment: FASTI NG:YES FASTING: YES Performed By: #### 1 759, 70205 #### [facility] [address] [place] [address] Manufacturing Sr Engineer: Katarzyna Khan #### 5363, 7600, 496 #### [facility] [address], [address] [place] [address] Manufacturing Sr Engineer: Casey Chi MD Cholesterol in LDL [Mass/Vol] [...] LDL-C. Humberto SS et al. LULU. 2013;310(19): 1568-8770 (http://education.[employer]faq/AYQ007) Performed By: #### 1 759, 88141 #### [facility] [address] [place], [place] [phone] Manufacturing Sr Engineer: Katarzyna Khan #### 5363, 7600, 496 #### [facility] [address], [address] [place] [address] Manufacturing Sr Engineer: Casey Chi MD Cholesterol.total/ Cholesterol in HDL [Mass ratio] 5.4 {ratio} High <5.0 [facility] Comment on above: Order Comment: FASTI NG:YES FASTING: YES Performed By: #### 1 759, 95214 #### [facility] [address] [place] [address] Manufacturing Sr Engineer: Katarzyna Khan #### 5363, 7600, 496 #### [facility] [address], [address] [place] [address] Manufacturing Sr Engineer: Casey Chi MD NON HDL CHOLESTEROL 140 mg/dL (calc) High <130 [facility] Comment on above: Order Comment: FASTI NG:YES FASTING: YES Result Comment: For patients with diabetes plus 1 major ASCVD risk factor, treating to a non-HDL-C goal of <100 mg/dL (LDL-C of <70 mg/dL) is considered a therapeutic option. Performed By: #### 1 759, 84318 #### [facility] [address] [place] [address] Manufacturing Sr Engineer: Katarzyna Khan #### 5363, 7600, 496 #### [facility] [address], [address] [place] [address] Manufacturing Sr Engineer: Casey Chi MD Triglyceride [Mass/Vol] 299 mg/dL High <150 [facility] Comment on above: Order Comment: FASTI NG:YES FASTING: YES Result Comment: If a non-fasting specimen was collected, consider repeat triglyceride testing on a fasting specimen if clinically indicated. Fabiola et al. J. of Clin. Lipidol. 2015;9:129-169. Performed By: #### 1 759, 94206 #### [facility] [address] [place] [address] Manufacturing Sr Engineer: Katarzyna Khan #### 5363, 7600, 496 #### [employer] [address], [address] [place] [address] Manufacturing Sr Engineer: Casey Chi MD PSA, TOTALon 06-15-2024 PSA, TOTAL 0.43 ng/mL Normal < OR = 4.00 [facility] Comment on above: Result Comment: The [...] of disease. Performed By: #### 1 759, 46061 #### [facility] [address] [place] [address] Manufacturing Sr Engineer: Katarzyna Khan #### 5363, 7600, 496 #### [employer] [address], [address] [place] [address] Manufacturing Sr Engineer: Casey Chi MD XR Hip - left [...] Unremarkable left total hip arthroplasty. Jose Hernández COMMERCIAL LOAN CLOSER-LIVING MANAGER [facility] [employer] Radiology Study observation (narrative) [facility] XR HIP LT 2-3 VIEWS W OR [...] Delcid MD on 05/03/2024 10:26 AM Normal [facility] XR Hip - left 3 Viewson 03-28 Imaging Result: April 06, 2024 x-rays AP and lateral of the left hip demonstrate joint space collapse with subchondral sclerosis and osteophyte formation consistent with arthritis. Impression: Arthritis of the left hip Amauri Blair D.O. [facility] [employer] XR Hip - left 3 Viewson 03-28 Radiology Study observation (narrative) [facility] BASIC METABOLIC PANLon 04-04 Anion gap [Moles/Vol] 9 mmol/L Normal 5-15 [facility] Comment on above: Performed By: #### C BCA, BMP #### [facility] ([id number]) [address], [address] [place] [address] Calcium [Mass/Vol] 9.8 mg/dL Normal 8.5-10.5 [facility] Comment on above: Performed By: #### C BCA, BMP #### [facility] ([id number]) [address] [place] [address] Chloride [Moles/Vol] 103 mmol/L Normal 98-109 [facility] Comment on above: Performed By: #### C BCA, BMP #### [facility] ([id number]) [address], [address] [place] [address] CO2 [Moles/Vol] 27 mmol/L Normal 22-32 [facility] Comment on above: Performed By: #### C BCA, BMP #### [facility] ([id number]) [address] [place] [address] Creatinine [Mass/Vol] 0.89 mg/dL Normal 0.60-1.30 [facility] Comment on above: Result Comment: METH OD TRACEABLE TO IDMS STANDARD Performed By: #### C BCA, BMP #### [facility] ([id number]) [address], [address] [place] [address] eGFR (CKD-EPI) NON-RACE DEPENDENT >90 Normal >59 [facility] Comment on above: Result Comment: Reported eGFR is based on the CKD-EPI 2020 equation that does not use a race coefficient. Performed By: #### C BCA, BMP #### [facility] ([id number]) [address] [place] [address] Glucose [Mass/Vol] 101 mg/dL High 65-99 [facility] Comment on above: Performed By: #### C BCA, BMP #### [facility] ([id number]) [address] [place] [address] Potassium [Moles/Vol] 4.1 mmol/L Normal 3.5-5.0 [facility] Comment on above: Performed By: #### C BCA, BMP #### [facility] ([id number]) [address], [address] [place] [address] Sodium [Moles/Vol] 139 mmol/L Normal 134-146 [facility] Comment on above: Performed By: #### C BCA, BMP #### [facility] ([id number]) [address] [place] [address] Urea nitrogen [Mass/Vol] 19 mg/dL Normal 5-27 [facility] Comment on above: Performed By: #### C BCA, BMP #### [facility] ([id number]) [address] [place] [address] Basic Metabolic Panelon 10-0 Anion gap [Moles/Vol] 9 mmol/L 5 - 15 mmol/L [facility] Calcium [Mass/Vol] 9.8 mg/dL 8.5 - 10. 5 mg/dL [facility] Chloride [Moles/Vol] 103 mmol/L 98 - 109 mmol/L [facility] CO2 [Moles/Vol] 27 mmol/L 22 - 32 mmol/L [facility] [facility] Creatinine [Mass/Vol] 0.89 mg/dL 0.60 - 1.30 mg/dL [facility] Comment on above: METHOD TRACEABLE TO IDKY STANDARD eGFR (CKD-EPI)non-race dependent - PINF [facility] Comment on above: Reported eGFR is based on the CKD-EPI 2020 equation that does not use a race coefficient. Glucose [Mass/Vol] 101 mg/dL High 65 - 99 mg/dL [facility] Interpretation and review of laboratory results Abnormal [facility] Potassium [Moles/Vol] 4.1 mmol/L 3.5 - 5.0 mmol/L [facility] Sodium [Moles/Vol] 139 mmol/L 134 - 146 mmol/L [facility] Urea nitrogen [Mass/Vol] 19 mg/dL 5 - 27 mg/dL [facility] CBC AND AUTO DIFFon 04-04-20 ABSOLUTE BASOPHIL 0.0 X10E9/L Normal 0.0-0.2 [facility] Comment on above: Performed By: #### C BCA, BMP #### [facility] ([id number]) [address], [address] [place] [address] ABSOLUTE NEUTROPHIL 4.6 X10E9/L Normal 1.5-6.6 [facility] Comment on above: Performed By: #### C BCA, BMP #### [facility] ([id number]) [address], [address] [place] [address] Basophils/100 WBC (Bld) 0.4 % Normal [facility] Comment on above: Performed By: #### C BCA, BMP #### [facility] ([id number]) [address], [address] [place] [address] Eosinophils (Bld) [#/Vol] 0.1 10*3/uL Normal 0.0-0.4 [facility] Comment on above: Performed By: #### Manuela MAGALLON, BMP #### [facility] ([id number]) [address], [address] [place] [address] Eosinophils/100 WBC (Bld) 1.8 % Normal [facility] Comment on above: Performed By: #### Manuela MAGALLON, BMP #### [facility] ([id number]) [address], [address] [place] [address] Erythrocyte distribution width (RBC) [Ratio] 15.1 % High 11.5-15.0 [facility] Comment on above: Performed By: #### Manuela MAGALLON, BMP #### [facility] ([id number]) [address], [address] [place] [address] Hematocrit (Bld) [Volume fraction] 36.7 % Low 39-49 [facility] Comment on above: Performed By: #### Manuela MAGALLON, BMP #### [facility] ([id number]) [address], [address] [place] [address] Hemoglobin (Bld) [Mass/Vol] 12.5 g/dL Low 13.0-17.0 [facility] Comment on above: Performed By: #### C SHERITA, BMP #### [facility] ([id number]) [address], [address] [place] [address] Lymphocytes (Bld) [#/Vol] 1.4 10*3/uL Normal 1.0-3.5 [facility] Comment on above: Performed By: #### Manuela MAGALLON, BMP #### [facility] ([id number]) [address], [address] [place] [address] Lymphocytes/100 WBC (Bld) 21.3 % Normal [facility] Comment on above: Performed By: #### Manuela MAGALLON, BMP #### [facility] ([id number]) [address], [address] [place] [address] MCH (RBC) [Entitic mass] 30.1 pg Normal 27-34 [facility] Comment on above: Performed By: #### C SHERITA, BMP #### [facility] ([id number]) [address], [address] [place] [address] MCHC (RBC) [Mass/Vol] 34.0 g/dL Normal 32-36 [facility] Comment on above: Performed By: #### C SHERITA, BMP #### [facility] ([id number]) [address], [address] [place] [address] MCV (RBC) [Entitic vol] 89 fL Normal 80-100 [facility] Comment on above: Performed By: #### C SHERITA, BMP #### [facility] ([id number]) [address], [address] [place] [address] Monocytes (Bld) [#/Vol] 0.6 10*3/uL Normal 0-0.9 [facility] Comment on above: Performed By: #### C SHERITA, BMP #### [facility] ([id number]) [address], [address] [place] [address] Monocytes/100 WBC (Bld) 8.6 % Normal [facility] Comment on above: Performed By: #### Manuela MAGALLON, BMP #### [facility] ([id number]) [address], [address] [place] [address] Neutrophils/100 WBC (Bld) 67.9 % Normal [facility] Comment on above: Performed By: #### C SHERITA, BMP #### [facility] ([id number]) [address], [address] [place] [address] Platelet mean volume (Bld) [Entitic vol] 8.0 fL Normal 7-12 [facility] Comment on above: Performed By: #### C BCA, BMP #### [facility] ([id number]) [address], [address] [place] [address] Platelets (Bld) [#/Vol] 205 10*3/uL Normal 150-450 [facility] Comment on above: Performed By: #### Manuela MAGALLON, BMP #### [facility] ([id number]) [address], [address] [place] [address] RBC COUNT 4.14 X10E12/L Normal 4.10-5.70 [facility] Comment on above: Performed By: #### Manuela MAGALLON, BMP #### [facility] ([id number]) [address], [address] [place] [address] WBC (Bld) [#/Vol] 6.7 10*3/uL Normal 4.0-11.0 [facility] Comment on above: Performed By: #### Manuela MAGALLON, BMP #### [facility] ([id number]) [address], [address] [place] [address] CBC auto differentialon 10-0 -2023 Basophils (Bld) [#/Vol] 0.0 10*3/uL [facility] Basophils/100 WBC (Bld) 0.4 % [facility] Eosinophils (Bld) [#/Vol] 0.1 10*3/uL [facility] Eosinophils/100 WBC (Bld) 1.8 % [facility] Erythrocyte distribution width (RBC) [Ratio] 15.1 % High 11.5 - 15.0 % [facility] Hematocrit (Bld) [Volume fraction] 36.7 % Low 39 - 49 % [facility] Hemoglobin (Bld) [Mass/Vol] 12.5 g/dL Low 13.0 - 17.0 g/dL [facility] Interpretation and review of laboratory results Abnormal [facility] Lymphocytes (Bld) [#/Vol] 1.4 10*3/uL [facility] Lymphocytes/100 WBC (Bld) 21.3 % [facility] MCH (RBC) [Entitic mass] 30.1 pg 27 - 34 pg [facility] MCHC (RBC) [Mass/Vol] 34.0 g/dL 32 - 36 g/dL [facility] MCV (RBC) [Entitic vol] 89 fL 80 - 100 fL [facility] Monocytes (Bld) [#/Vol] 0.6 10*3/uL [facility] Monocytes/100 WBC (Bld) 8.6 % [facility] Neutrophils (Bld) [#/Vol] 4.6 10*3/uL [facility] Neutrophils/100 WBC (Bld) 67.9 % [facility] Platelet mean volume (Bld) [Entitic vol] 8.0 fL 7 - 12 fL [facility] Platelets (Bld) [#/Vol] 205 10*3/uL [facility] RBC (Bld) [#/Vol] 4.14 10*6/uL [facility] WBC corrected for nucl RBC Auto (Bld) [#/Vol] 6.7 [facility] ECG 12 leadon 04-04-2024 TRACEMASTERVUE [facility] Ambulatory Visit Summaryon 0 02-07-2024 Ambulatory Visit Summary Ambulatory Visit Summary VELA LAWSON Mary Ann :1955 Visit Date:02/07/2024 Ambulatory Visit Instructions Your Diagnosis BPH with urinary obstruction OAB (overactive bladder) ED (erectile dysfunction) Your Care Team Attending Physician - PAMELA BEAR, Mac Stephenson Primary Care Physician - JAVAD DONATO MD This Is Your Medications List finasteride (finasteride 5 mg Tab) solifenacin (Vesicare 10 mg Tab) tamsulosin (tamsulosin 0.4 mg Cap) Contact prescribing physician if questions or concerns acetaminophen (Tylenol Extra Strength 500 mg oral tablet) acetaminophen-hydroco done ([place] 325 mg-5 mg oral tablet) ascorbic acid [...] [facility] [address], [place] [address]- Medications What How Much When Instructions Unchanged [...] if questions or concerns Unchanged acetaminophen-hydroco done ([place] 325 mg-5 mg oral tablet) 1 Tablets [...] [facility] [address], [place] [address]- Additional Instructions: 1 yr Patient Education Benign [...] tablet, 200 mg= 1 tab(s), Oral, q24hr [place] 325 mg-5 mg oral tablet, 1 tab(s), [...] right total hip replacement Amauri Blair D.O. [facility] Radiology Study observation (narrative) [facility] XR Hip - right 3 ViewsOrdere d By: Charissa Blair on 08-09-2023 [facility] [employer] Work Phone: ABO Rh Repeaton 07-07-2023 [...] Delcid MD on 07/07/2023 11:06 AM Normal [facility] XR Pelvis and Hip - right 2 Viewson 07-07-2023 XR HIP RT 2-3 VIEWS W OR WO PELVIS HISTORY: Hip replacement. COMPARISON: None. IMPRESSION: 1. Hip prosthesis noted without visible acute complication Finalized by Price Delcid MD on 07/07/2023 11:06 AM [employer] Price Delcid MD - 07/07/2023 XR HIP RT 2-3 VIEWS W OR WO PELVIS HISTORY: Hip replacement. COMPARISON: None. IMPRESSION: 1. Hip prosthesis noted without visible acute complication Finalized by Price Delcid MD on 07/07/2023 11:06 AM [employer] Radiology Study observation (narrative) [employer] XR Pelvis and Hip - right 2 ViewsOrdered By: Price Delcid on 07-07-2023 [employer] Work Phone: CNOVon 04-13-2023 CNOV Office Visit (SPSLU ) LAWSON VELA ([id number]) 1955 M DEF Date Time Provider Department 04/13/23 11:00 AM LAILA LEWIS [facility] During your visit today, we recorded the [...] a week. Hydrocodone, Meloxicam Zanaflex, Lidocaine patches rehab care assistant Prior to ablation symptoms on left [...] Question 1 (more content not included)... [facility] XR lumbar spine 6V w bending on 12-17-2022 XR lumbar spine 6V w bending [place] [address] XRay Report Signed Patient: Lawson Vela MR#: [id number] : 1955 Acct:[id number] Age/Sex: 67 / M ADM Date: 12/17/22 Loc: XD Room: Type: [facility] Attending Dr: Erica MILLER Copies to: ANGELA [...] Cobian Jr., D.O.12/17/2022 3:16 PM Dictation Location: [facility]--15 Transcribed By: [facility] 12/17/22 1516 Dictated By: Lenny Cobian Jr DO 12/17/22 1514 Signed By: 12/17/22 1516 Normal [facility] XR lumbar spine 6V w bending [facility] [employer] Other XR lumbar spine 6V w bending [facility] [employer] Other XR lumbar spine 6V w bending [address] [place] [address] [employer] Other XR lumbar spine 6V w bending [place] [id number] [employer] Other XR lumbar spine 6V w bending XRay Report [employer] Other XR lumbar spine 6V w bending Signed [employer] Other XR lumbar spine 6V w bending Patient: Lawson Vela MR#: [id number] [employer] Other XR lumbar spine 6V w bending : 1955 Acct:[id number] [employer] Other XR lumbar spine 6V w bending Age/Sex: 67 / M ADM Date: 12/17/22 [employer] Other XR lumbar spine 6V w bending Loc: XD Room: Type: [facility] [employer] Other XR lumbar spine 6V w bending Attending Dr: Erica Xiong PROCESS CONTR[employer] SUPERVISOR-C [employer] Other XR lumbar spine 6V w bending Copies to: Erica Xiong PROCESS CONTR[employer] SUPERVISOR[employer] Other XR lumbar spine 6V w bending Ordering Provider: Erica Xiong [employer] Other XR lumbar spine 6V w bending Date of Service: 12/17/22 [employer] Other XR lumbar spine 6V w bending XR/XR lumbar spine 6V w bending: M54.16 [employer] Other XR lumbar spine 6V w bending LUMBAR SPINE - 6 views [employer] Other XR lumbar spine 6V w bending CLINICAL HISTORY: Right leg pain and numbness that radiates to toes [employer] Other XR lumbar spine 6V w bending COMPARISON: None [employer] Other XR lumbar spine 6V w bending FINDINGS: Vertebral body heights appear maintained. Diffuse endplate and facet joint degenerative [employer] Other XR lumbar spine 6V w bending changes. Mild diffuse disc space narrowing with relative sparing of L5-S1. No pathological motion [employer] Other XR lumbar spine 6V w bending on flexion or extension views. Limited sidebending. [employer] Other XR lumbar spine 6V w bending XR/XR lumbar spine 6V w bending [employer] Other XR lumbar spine 6V w bending IMPRESSION: [employer] Other XR lumbar spine 6V w bending DEGENERATIVE CHANGES OF THE LUMBAR SPINE WITH MILD DIFFUSE DISC SPACE NARROWING WITH RELATIVE [employer] Other XR lumbar spine 6V w bending SPARING OF L5-S1. [employer] Other XR lumbar spine 6V w bending Impression dictated by: Lenny Cobian Jr. DFabioOFabio12/17/2022 3:16 PM [employer] Other XR lumbar spine 6V w bending Dictation Location: [place] [address] [employer] Other XR lumbar spine 6V w bending Transcribed By: PWS 12/17/22 8371 [employer] Other XR lumbar spine 6V w bending Dictated By: Lenny Cobian Jr, DO 12/17/22 4398 [employer] Other XR lumbar spine 6V w bending Signed By: [employer] Other XR lumbar spine 6V w bending 12/17/22 6919 [employer] Other XR HIPS TRENT 3_4V WO PELVISon [...] by: DEVIN KNAPP Date: 2022-11-13 13:07 Normal [facility] MRI Lumbar Spine w/oon 05-01 MRI [...] by YASMANY ARAYA on 05/01/2022 1217 Normal [facility] XR Orbits for MRIon 04-27-20 22 XR Orbits for MRI CLINICAL HISTORY: Prescreening for MRI. COMPARISON: None. RESULT: No radiopaque foreign bodies. No acute osseous findings. IMPRESSION: No radiopaque foreign bodies. Report reported and signed by Javad Dickens on 04/27/2022 1540 Normal [facility] XR Spine Lumbar 4+ Views*on 04-06-2022 [...] by Lenny Cook on 04/06/2022 1106 Normal [facility] Specialist Vital Signs Date Time Vital Sign Value Performing Clinician Facility 11-29-2024 11:33-0400 Body height 185.4 cm Alma Hemmer PA Work Phone: [facility] 11-29-2024 11:33-0400 Body mass index (BMI) [Ratio] 38.39 kg/m2 Alma Hemmer PA Work Phone: [facility] 11-29-2024 11:33-0400 Body weight 132 kg Alma Hemmer PA Work Phone: [facility] 11-29-2024 11:33-0400 Diastolic blood pressure 80 mm[Hg] Alma Hemmer PA Work Phone: [facility] 11-29-2024 11:33-0400 Heart rate 81 /min Alma Hemmer PA Work Phone: [facility] 11-29-2024 11:33-0400 Respiratory rate 16 /min Alma Hemmer PA Work Phone: [facility] 11-29-2024 11:33-0400 SaO2% (BldA) [Mass fraction] 96 % Alma Hemmer PA Work Phone: [facility] 11-29-2024 11:33-0400 Systolic blood pressure 136 mm[Hg] Alma Hemmer PA Work Phone: [facility] 10-25-2024 10:57-0400 Body height 185.4 cm Javad Donato MD Work Phone: [facility] 10-25-2024 10:57-0400 Body mass index (BMI) [Ratio] 38.52 kg/m2 Javad Donato MD Work Phone: [facility] 10-25-2024 10:57-0400 Body weight 132.45 kg Javad Donato MD Work Phone: [facility] 10-25-2024 10:57-0400 Diastolic blood pressure 76 mm[Hg] Javad Donato MD Work Phone: [facility] 10-25-2024 10:57-0400 Heart rate 82 /min Javad Donato MD Work Phone: [facility] 10-25-2024 10:57-0400 SaO2% (BldA) [Mass fraction] 95 % Javad Donato MD Work Phone: [facility] 10-25-2024 10:57-0400 Systolic blood pressure 130 mm[Hg] Javad Donato MD Work Phone: [facility] 07-27-2024 10:26-0500 Body height 185.4 cm Alma Hemmer PA Work Phone: [facility] 07-27-2024 10:26-0500 Body mass index (BMI) [Ratio] 38.34 kg/m2 Alma Hemmer PA Work Phone: [facility] 07-27-2024 10:26-0500 Body temperature 97.5 [degF] Alma Hemmer PA Work Phone: [facility] 07-27-2024 10:26-0500 Body weight 131.81 kg Alma Hemmer PA Work Phone: [facility] 07-27-2024 10:26-0500 Diastolic blood pressure 74 mm[Hg] Alma Hemmer PA Work Phone: [facility] 07-27-2024 10:26-0500 Heart rate 88 /min Alma Hemmer PA Work Phone: [facility] 07-27-2024 10:26-0500 Respiratory rate 18 /min Alma Hemmer PA Work Phone: [facility] 07-27-2024 10:26-0500 SaO2% (BldA) [Mass fraction] 95 % Alma Hemmer PA Work Phone: [facility] 07-27-2024 10:26-0500 Systolic blood pressure 128 mm[Hg] Alma Hemmer PA Work Phone: [facility] 06-14-2024 09:36-0500 Body height 185.4 cm Javad Donato MD Work Phone: [facility] 06-14-2024 09:36-0500 Body mass index (BMI) [Ratio] 37.6 kg/m2 Javad Donato MD Work Phone: [facility] 06-14-2024 09:36-0500 Body weight 129.28 kg Javad Donato MD Work Phone: [facility] 06-14-2024 09:36-0500 Diastolic blood pressure 70 mm[Hg] Javad Donato MD Work Phone: [facility] 06-14-2024 09:36-0500 Heart rate 98 /min Javad Donato MD Work Phone: [facility] 06-14-2024 09:36-0500 SaO2% (BldA) [Mass fraction] 97 % Javad Donato MD Work Phone: [facility] 06-14-2024 09:36-0500 Systolic blood pressure 126 mm[Hg] Javad Donato MD Work Phone: [facility] 04-17-2024 13:49-0400 Body height 185.4 cm Javad Donato MD Work Phone: [facility] 04-17-2024 13:49-0400 Body mass index (BMI) [Ratio] 37.6 kg/m2 Javad Donato MD Work Phone: [facility] 04-17-2024 13:49-0400 Body weight 129.28 kg Javad Donato MD Work Phone: [facility] 04-17-2024 13:49-0400 Diastolic blood pressure 68 mm[Hg] Javad Donato MD Work Phone: [facility] 04-17-2024 13:49-0400 Heart rate 96 /min Javad Donato MD Work Phone: [facility] 04-17-2024 13:49-0400 SaO2% (BldA) [Mass fraction] 98 % Javad Donato MD Work Phone: [facility] 04-17-2024 13:49-0400 Systolic blood pressure 128 mm[Hg] Javad Donato MD Work Phone: [facility] 04-06-2024 11:31-0400 Body height 185.4 cm Charissa Blair DO Work Phone: [facility] 04-06-2024 11:31-0400 Body mass index (BMI) [Ratio] 38.16 kg/m2 Charissa Blair DO Work Phone: [facility] 04-06-2024 11:31-0400 Body weight 131.18 kg Charissa Blair DO Work Phone: [facility] 04-04-2024 09:12-0400 Body height 185.4 cm Pmh 1 [facility] 04-04-2024 09:12-0400 Body mass index (BMI) [Ratio] 37.34 kg/m2 Pmh 1 [facility] 04-04-2024 09:12-0400 Body weight 128.37 kg Pmh 1 [facility] 02-17-2024 10:18-0400 Body height 185.4 cm Alma Hemmer PA Work Phone: [facility] 02-17-2024 10:18-0400 Body mass index (BMI) [Ratio] 38.26 kg/m2 Alma Hemmer PA Work Phone: [facility] 02-17-2024 10:18-0400 Body weight 131.54 kg Alma Hemmer PA Work Phone: [facility] 02-17-2024 10:18-0400 Diastolic blood pressure 78 mm[Hg] Alma Hemmer PA Work Phone: [facility] 02-17-2024 10:18-0400 Heart rate 82 /min Alma Hemmer PA Work Phone: [facility] 02-17-2024 10:18-0400 SaO2% (BldA) [Mass fraction] 96 % Alma Hemmer PA Work Phone: [facility] 02-17-2024 10:18-0400 Systolic blood pressure 136 mm[Hg] Alma HERNANDEZ Work Phone: [facility] 02-07-2024 10:23-0400 Blood Pressure Location Mac SANTIAGO [facility] 02-07-2024 10:23-0400 Body temperature 98.6 [degF] Mac SANTIAGO [facility] 02-07-2024 10:23-0400 Diastolic blood pressure 82 mm[Hg] Mac SANTIAGO [facility] 02-07-2024 10:23-0400 Heart rate 75 /min Macmichelle SANTIAGO [facility] 02-07-2024 10:23-0400 Respiratory rate 16 /min Macmichelle SANTIAGO [facility] 02-07-2024 10:23-0400 Systolic blood pressure 132 mm[Hg] Mac SANTIAGO [facility] 07-07-2023 12:48-0500 Diastolic blood pressure 85 mm[Hg] Charissa Blair DO [facility] 07-07-2023 12:48-0500 Heart rate 88 /min Charissa Blair DO [facility] 07-07-2023 12:48-0500 Respiratory rate 22 /min Charissa Blair DO [facility] 07-07-2023 12:48-0500 SaO2% (BldA) [Mass fraction] 90 % Charissa Blair DO [facility] Phone[facility] 07-07-2023 12:48-0500 Systolic blood pressure 134 mm[Hg] Charissa Blair DO Work Phone: [employer] 07-07-2023 10:35-0500 Body temperature 97.3 [degF] Charissa Blair DO Work Phone: [employer] 07-07-2023 06:25-0500 Body height 185.4 cm Charissa Blair DO Work Phone: [employer] 07-07-2023 06:25-0500 Body mass index (BMI) [Ratio] 36.41 kg/m2 Charissa Blair DO Work Phone: [employer] 07-07-2023 06:25-0500 Body weight 125.19 kg Charissa Blair DO Work Phone: [employer] 12-17-2022 13:00-0400 Body height 182.88 cm Erica Xiong Other [employer] Other 12-17-2022 13:00-0400 Body mass index (BMI) [Ratio] 38.51 kg/m2 Erica Siri Other [employer] Other 12-17-2022 13:00-0400 Body weight 128.82 kg Erica Xiong Other [employer] Other 12-17-2022 13:00-0400 Diastolic blood pressure 88 mm[Hg] Erica Xiong Other [employer] Other 12-17-2022 13:00-0400 Systolic blood pressure 146 mm[Hg] Erica Xiong Other [employer] Other 06-01-2022 11:29-0500 Blood Pressure Location Mac SANTIAGO [facility] 06-01-2022 11:29-0500 Diastolic blood pressure 76 mm[Hg] Mac SANTIAGO [facility] 06-01-2022 11:29-0500 Heart rate 70 /min Mac SANTIAGO [facility] 06-01-2022 11:29-0500 Respiratory rate 16 /min Mac SANTIAGO [facility] 06-01-2022 11:29-0500 Systolic blood pressure 128 mm[Hg] Mac SANTIAGO [facility] 02-16-2022 10:28-0400 Blood Pressure Location Mac SANTIAGO [facility] 02-16-2022 10:28-0400 Diastolic blood pressure 84 mm[Hg] Mac SANTIAGO [facility] 02-16-2022 10:28-0400 Heart rate 68 /min Mac SANTIAGO [facility] 02-16-2022 10:28-0400 Respiratory rate 16 /min Mac SANTIAGO [facility] 02-16-2022 10:28-0400 Systolic blood pressure 136 mm[Hg] Mac SANTIAGO [facility] Encounters Encounter Date Encounter Type Care Provider Facility Start: 02-08-2026 ambulatory Mac Lan ty:[facility] [place] Start: 02-19-2025 End: 02-19-2025 ambulatory Lidia Fletcher MD Facility:[facility] Start: 02-05-2025 End: 02-05-2025 ambulatory Mac SANTIAGO Facility: [place] Start: 02-05-2025 End: 02-05-2025 Patient encounter procedure [facility] Start: 11-29-2024 End: 11-29-2024 Bamboo flowsheet Alma Mcclendon PA Work Phone: [facility] Start: 11-29-2024 End: 11-29-2024 Bamboo flowsheet Alma Mcclendon PA Work Phone: [facility] Start: 11-29-2024 End: 11-29-2024 Office outpatient visit 25 minutes Alma HERNANDEZ Work Phone: [facility] [...] 11-27-2024 End: 11-27-2024 ambulatory Lidia Fletcher MD Facility:[facility] Start: 11-06-2024 End: 11-06-2024 ambulatory Lidia Fletcher MD Facility:[facility] Start: 10-30-2024 End: 10-30-2024 Bamboo flowsheet Jose Hernández NP Work Phone: [facility] Start: 10-30-2024 End: 10-30-2024 Bamboo flowsheet Jose Hernández PROCESS CONTROL SUPERVISOR Work Phone: [facility] Start: 10-30-2024 End: 10-30-2024 Office outpatient visit 15 minutes Jose Hernández PROCESS CONTROL SUPERVISOR Work Phone: [facility] Comment [...] End: 10-25-2024 Office outpatient visit 25 minutes Javda Donato MD Work Phone: [facility] FM [...] 07-31-2024 End: 07-31-2024 Bamboo flowsheet Jose Hernández PROCESS CONTROL SUPERVISOR Work Phone: [facility] Start: 07-31-2024 End: 07-31-2024 Bamboo flowsheet Jose Hernández PROCESS CONTROL SUPERVISOR Work Phone: [facility] Start: 07-31-2024 End: 07-31-2024 Postop follow up visit related to original px Jose Hernández PROCESS CONTROL SUPERVISOR Work Phone: [facility] Comment [...] Start: 07-21-2024 End: 07-21-2024 ambulatory Jeanna Mendiola HOUSEMAN Work Phone: [facility] Comment on above: Left hip pain (Prima ry Dx); S/P total left hip arthroplasty Start: 07-14-2024 End: 07-14-2024 ambulatory Jeanna Mendiola HOUSEMAN Work Phone: [facility] Comment on above: Left hip pain (Prima ry Dx); S/P total left hip arthroplasty Start: 07-12-2024 End: 07-12-2024 Bamboo flowsheet Jeanna Mendiola HOUSEMAN Work Phone: [facility] Start: 07-12-2024 End: 07-12-2024 Bamboo flowsheet Jeanna Mendiola HOUSEMAN Work Phone: [facility] Start: 07-12-2024 End: 07-12-2024 ambulatory Jeanna Mendiola HOUSEMAN Work Phone: [facility] Comment on above: Left hip pain (Prima ry Dx); S/P total left hip arthroplasty Start: 07-07-2024 End: 07-07-2024 Bamboo flowsheet Jeanna Mendiola HOUSEMAN Work Phone: [facility] Start: 07-07-2024 End: 07-07-2024 Bamboo flowsheet Jeanna Mendiola HOUSEMAN Work Phone: [facility] Start: 07-07-2024 End: 07-07-2024 ambulatory Jeanna Mendiola HOUSEMAN Work Phone: [facility] Comment on above: Left hip pain (Prima ry Dx); S/P total left hip arthroplasty Start: 07-06-2024 End: 07-06-2024 ambulatory YOSEF CHEEMA Not Available Start: 07-05-2024 End: 07-05-2024 ambulatory Jeanna Mendiola HOUSEMAN Work Phone: [facility] Comment on above: Left hip pain (Prima ry Dx); S/P total left hip arthroplasty Start: 07-03-2024 End: 07-03-2024 Bamboo flowsheet Jose Hernández PROCESS CONTROL SUPERVISOR Work Phone: [facility] Start: 07-03-2024 End: 07-03-2024 Bamboo flowshector Hernández PROCESS CONTROL SUPERVISOR Work Phone: [facility] Start: 07-03-2024 End: 07-03-2024 Postop follow up visit related to original px Jose Hernández PROCESS CONTROL SUPERVISOR Work Phone: [facility] Comment on above: S/P total left hip a rthroplasty (Primary Dx) Start: 07-03-2024 End: 07-03-2024 ambulatory JOSE HERNÁNDEZ Not Available Start: 06-30-2024 End: 06-30-2024 Bamboo flowsheet Jeanna Maury HOUSEMAN Work Phone: [facility] Start: 06-30-2024 End: 06-30-2024 Bamboo flowsheet Jeannaluis Mendiola HOUSEMAN Work Phone: [facility] Start: 06-30-2024 End: 06-30-2024 ambulatory Jeanna Mendiola HOUSEMAN Work Phone: [facility] Comment on above: Left hip pain (Prima ry Dx); S/P total left hip arthroplasty Start: 06-26-2024 End: 06-26-2024 Bamboo flowsheet Kailey Goldman HOUSEMAN [facility] Start: 06-26-2024 End: 06-26-2024 Bamboo flowsheet Kailey Goldman HOUSEMAN [facility] Start: 06-26-2024 End: 06-26-2024 ambulatory Kailey Goldman HOUSEMAN [facility] Comment on above: Left [...] (CMS/HCC) Start: 06-14-2024 End: 06-14-2024 ambulatory JAVAD Jiménez MARIBEL Not Available Start: 06-12-2024 End: 06-12-2024 Bamboo flowsheet Jose Hernández PROCESS CONTROL SUPERVISOR Work Phone: [facility] Start: 06-12-2024 End: 06-12-2024 Bamboo flowsheet Jose Hernández PROCESS CONTROL SUPERVISOR Work Phone: [facility] Start: 06-12-2024 End: 06-12-2024 Postop follow up visit related to original px Jose Hernández NP Work Phone: [facility] Comment on above: S/P total left hip a rthroplasty (Primary Dx); Left hip pain Start: 06-12-2024 End: 06-12-2024 ambulatory JOSE HERNÁNDEZ Not Available Start: 05-16-2024 End: 05-16-2024 Bamboo flowsheet Charissa Blair DO Work Phone: [facility] Start: 05-16-2024 End: 05-16-2024 Bamboo flowsheet Charissa Blair DO Work Phone: [facility] Start: 05-16-2024 End: 05-16-2024 Postop follow up visit related to original px Charissa Blair DO Work Phone: [facility] Comment on above: S/P total left [...] Start: 05-04-2024 End: 05-04-2024 Telephone encounter Charissa Del Ciddleston DO Work Phone: [facility] Comment on above: Discharge Start: 05-03-2024 End: 05-03-2024 ambulatory CHARISSA BLAIR [facility] Start: 05-02-2024 End: 05-02-2024 Refill Jose Hernández NP Work Phone: [facility] [...] 04-06-2024 End: 04-06-2024 Bamboo flowsheet Jose Hernández PROCESS CONTROL SUPERVISOR Work Phone: [facility] Start: 04-06-2024 End: 04-06-2024 Bamboo flowsheet Jose Hernández PROCESS CONTROL SUPERVISOR Work Phone: [facility] Start: 04-06-2024 End: 04-06-2024 Office outpatient visit 40 minutes Charissa Balir DO Work Phone: [facility] Comment on above: Left hip pain; Arthritis of left hip Start: 04-06-2024 End: 04-06-2024 ambulatory CHARISSA BLAIR Not Available Start: 04-04-2024 End: 04-04-2024 Patient encounter procedure [facility] Pre-Admission Testing 1 [facility] - Pre Admit Comment on above: Preop examination (P rimary Dx); Hypertension, unspecified type Start: 04-04-2024 End: 04-04-2024 Preprocedural examination done [facility] 1 [facility] Start: 04-04-2024 End: 04-04-2024 ambulatory CHARISSA Milton BLAIR [facility] Start: 03-15-2024 End: 03-15-2024 Telephone encounter Nagi Plata PT Work Phone: [facility] Start: 02-17-2024 End: 02-17-2024 Office outpatient visit 15 minutes Alma Mcclendon PA Work Phone: [facility] Comment on above: Acute pharyngitis, u nspecified etiology (Primary Dx) Start: 02-17-2024 End: 02-17-2024 ambulatory ALMA MCCLENDON Not Available Start: 02-07-2024 End: 02-07-2024 ambulatory Mac R PAMELA Facility:[facility] Start: 02-07-2024 End: 02-07-2024 Patient encounter procedure Mac SANTIAGO [facility] Start: 01-27-2024 End: 01-27-2024 ambulatory CHARISSA Milton ROSSY Not Available Start: 01-21-2024 End: 01-21-2024 ambulatory ALMA MCCLENDON Not Available Start: 12-16-2023 End: 12-16-2023 ambulatory CHARISSA Milton ROS[facility] Not Available Start: 12-13-2023 End: 12-13-2023 ambulatory JOSE HERNÁNDEZ Not Available Start: 08-09-2023 Bamboo flowsheet Jeanna Wrig ht HOUSEMAN Work Phone: [facility] Start: 08-09-2023 Bamboo flowsheet Jeanna Wrig ht HOUSEMAN Work Phone: [facility] Start: 08-09-2023 End: 08-09-2023 Postop follow up visit related to original px Jose Hernández PROCESS CONTROL SUPERVISOR Work Phone: [facility] Comment on above: 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; Status post right hip replacement Start: 08-09-2023 End: 08-09-2023 ambulatory Jeannaluis Mendiola HOUSEMAN Work Phone: [facility] Comment on above: Right hip pain (Prim billie Dx); Status post total hip replacement, right; Arthritis of right hip Start: 08-06-2023 End: 08-06-2023 ambulatory Jeanna Mendiola HOUSEMAN Work Phone: [facility] Comment on above: Right hip pain (Prim billie Dx); Status post total hip replacement, right; Arthritis of right hip Start: 08-02-2023 Bamboo flowsheet Jeanna Wrig ht HOUSEMAN Work Phone: [facility] Start: 08-02-2023 Bamboo flowsheet Jeanna Wrig ht HOUSEMAN Work Phone: [facility] Start: 08-02-2023 End: 08-02-2023 ambulatory Jeanna Mendiola HOUSEMAN Work Phone: [facility] Comment on above: Right hip pain (Prim billie Dx); Status post total hip replacement, right; Arthritis of right hip Start: 07-29-2023 End: 07-29-2023 ambulatory Nagi Snow Narendra PT Work Phone: [facility] Comment on above: Right hip pain (Prim billie Dx); Status post total hip replacement, right Start: 07-08-2023 End: 07-08-2023 ambulatory DEVIN Ga[facility] Start: 07-07-2023 End: 07-08-2023 ambulatory [facility] Start: 07-07-2023 End: 07-07-2023 ambulatory [facility] Start: 07-07-2023 End: 07-07-2023 Subsequent hospital visit by physician Charissa Blair DO Work Phone: [facility] Start: 07-05-2023 End: 07-05-2023 ambulatory [facility] Start: 07-05-2023 Encounter for other preprocedural examination [facility] Start: 04-13-2023 End: 04-13-2023 ambulatory LAILA LEWIS [facility] Start: 04-13-2023 End: 04-13-2023 Patient encounter procedure Laila Lewis PA-C Work Phone: [facility] [place] Comment on above: Spinal stenosis, lum bar region with neurogenic claudication (Primary Dx); Bilateral hip joint arthritis Start: 01-28-2023 Chart abstracting Camron Mix MD Work Phone: Neurology Start: 12-17-2022 End: 12-17-2022 Patient encounter procedure II Javad Donato Work Phone: [facility] Work Phone: Start: 12-17-2022 End: 12-17-2022 ambulatory II Javad Donato Work Phone: [facility] Work Phone: Start: 12-17-2022 Encounter for other specified special examinations Erica Xiong [facility] Start: 12-17-2022 Office outpatient ne w 45 minutes Erica Xiong [facility] Start: 11-24-2022 End: 11-25-2022 ambulatory NARENDRANATH LAKSHMIPATHY . Facility:[facility] Start: 11-13-2022 End: 11-14-2022 ambulatory NARENDRANATH LAKSHMIPATHY . Facility:[facility] Start: 11-10-2022 End: 11-11-2022 ambulatory NARENDRANATH LAKSHMIPATHY . Facility:[facility] Start: 10-08-2022 End: 10-09-2022 ambulatory NARENDRANATH LAKSHMIPATHY . Facility:[facility] Start: 09-10-2022 End: 09-11-[address] ANTIONE HAWTHORNE . Facility:[facility] Start: 08-13-2022 Encounter for preprocedural cardiovascular examination DR ANTIONE HAWTHORNE . [facility] Start: 08-11-2022 End: 08-11-[address] [...] encounter procedure Mac SANTIAGO [facility] Start: 05-19-2022 End: 05-20-[address] ANTIONE HAWTHORNE . Facility:[facility] Start: 05-05-2022 End: 05-05-[address] ANTIONE HAWTHORNE . Facility:[facility] Start: 04-28-2022 End: 04-29-[address] ANTIONE HAWTHORNE . Facility:[facility] Start: 04-27-2022 End: 05-14-[address] JAVAD DONATO Facility:[facility] Start: 02-16-2022 End: 02-16-2022 Patient encounter procedure Mac SANTIAGO [facility] Procedures Date Procedure Procedure Detail Performing Clinician Start: 10-30-2024 Radex hip unilateral with pelvis 2-3 views Jose Hernández NP Work Phone: Start: 10-25-2024 Hemoglobin glycosyla angeles a1c Javad Donato MD Work Phone: Start: 06-12-2024 Radex hip unilateral with pelvis 2-3 views Jose Hernández NP Work Phone: Start: 04-06-2024 Radex hip unilateral [...] Td Vaccines (2 - Td or Tdap) [facility] Start: 07-12-2027 Screening for malign ant neoplasm of colon [facility] Start: 06-14-2025 Medicare Annual Wellness (AWV) Medicare Annual Wellness (AWV) [facility] Start: 04-30-2025 End: 04-30-2025 Patient encounter procedure 04/30/2025 8:00 AM EST Office Visit [facility] [address] [place] [phone] Jose Hernández, PROCESS CONTROL SUPERVISOR [address] [place] [address] [facility] Start: 04-26-2025 End: 04-26-2025 Patient encounter procedure 04/26/2025 9:00 AM EDT Office Visit [facility] [address] [facility] [address] [place] [address] Javad Donato MD [address] [facility] [address] [place] [address] [facility] Start: 04-04-2025 Adult BMI Screening Adult BMI Screen ing [facility] Start: 04-04-2025 Tobacco Screening Tobacco Screening [facility] Start: 11-29-2024 End: 11-29-2024 Patient encounter procedure [facility] Comment on above: Arrived Start: 10-30-2024 End: 10-30-2024 Patient encounter procedure [facility] Comment on above: Left hip pain Start: 10-25-2024 End: 10-25-2024 Patient encounter procedure 10/25/2024 10:45 AM EDT Office Visit [facility] [address] [place] [address] [place] [address] Javad Donato MD [address] [place] [address] [place] [address] Arrived [facility] Comment on above: Arrived Start: 10-23-2024 End: 10-23-2024 Patient encounter procedure 10/23/2024 10:00 AM EDT Office Visit [facility] [address] [place] [address] [place] [address] Javad Donato MD [address] [place] [address] [place] [address] [facility] Start: 07-31-2024 End: 07-31-2024 Patient encounter procedure [facility] Comment on above: Arrived Start: 07-27-2024 End: 07-27-2024 Patient encounter procedure 07/27/2024 10:30 AM EST Office Visit [facility] [address] [place] [address] [place] [address] Alma Mcclendon, PA [address] [place] [address] [place] [address] Arrived [facility] Comment on above: Arrived Start: 07-21-2024 End: 07-21-2024 ambulatory 07/21/2024 7:30 AM EST Treatment [facility] [address] [place] [phone] Jeanna Mendiola, HOUSEMAN [address] [place] [address] [facility] Start: 07-14-2024 End: 07-14-2024 ambulatory [facility] Start: 07-12-2024 End: 07-12-2024 ambulatory [facility] Comment on above: Arrived Start: 07-07-2024 End: 07-07-2024 ambulatory 07/07/2024 7:30 AM EST Treatment [facility] [address] [place] [phone] Jeanna Mendiola, HOUSEMAN [address] [place] [address] [facility] Start: 07-06-2024 End: 07-06-2024 Professional / ancillary services management 07/06/2024 8:00 AM EST Ancillary Procedure [facility] [address] [place] [id number] [facility] Start: 07-05-2024 End: 07-05-2024 ambulatory 07/05/2024 7:30 AM EST Treatment [facility] [address] [place] [phone] Jeanna Mendiola, HOUSEMAN [address] [place] [address] [facility] Start: 07-03-2024 End: 07-03-2024 Patient encounter procedure [facility] Comment on above: Arrived Start: 06-30-2024 End: 06-30-2024 ambulatory [facility] Comment on above: Arrived Start: 06-29-2024 End: 06-29-2024 ambulatory 06/29/2024 7:30 AM EST Treatment [facility] [address] [facility] [address] [place] [address] Kailey Goldman, HOUSEMAN [facility] Start: 06-26-2024 End: 06-26-2024 ambulatory [facility] Comment on above: Arrived Start: 06-22-2024 End: 06-22-2024 Professional / ancillary services management 06/22/2024 3:15 PM EST Ancillary Procedure [facility] [address] [place] [address] [place] [phone] [facility] Start: 06-20-2024 End: 06-20-2024 ambulatory 06/20/2024 7:00 AM EST Evaluation [facility] [address] [place] [phone] Nagi Plata, PT [address] [place] [address] [facility] Start: 06-14-2024 End: 06-14-2025 CBC panel - Blood by Automated count CBC Lab Routine Benign essential hypertension (CMS/HCC) IGT (impaired glucose tolerance) Atherosclerosis of aorta (CMS/HCC) Class 2 severe obesity with serious comorbidity and body mass index (BMI) of 37.0 to 37.9 in adult, unspecified obesity type (CMS/HCC) Expected: 06/14/2024 (Approximate), Expires: 06/14/2025 [facility] Comment on above: Expected: [...] type (CMS/HCC) Expected: 06/14/2024 (Approximate), Expires: 06/14/2025 [facility] Comment on above: Expected: 06/14/2024 (Approximate), Expires: 06/14/2025 Start: 06-14-2024 End: 06-14-2025 Hemoglobin A1c/Hemoglobin.total in Blood Hemoglobin A1c Lab Routine Benign essential hypertension (CMS/HCC) IGT (impaired glucose tolerance) Atherosclerosis of aorta (CMS/HCC) Class 2 severe obesity with serious comorbidity and body mass index (BMI) of 37.0 to 37.9 in adult, unspecified obesity type (CMS/HCC) Expected: 06/14/2024 (Approximate), Expires: 06/14/2025 [facility] Comment on above: Expected: [...] type (CMS/HCC) Expected: 06/14/2024 (Approximate), Expires: 06/14/2025 [facility] Comment on above: Expected: 06/14/2024 (Approximate), Expires: 06/14/2025 Start: 06-14-2024 End: 06-14-2025 Prostate specific Ag [Mass/volume] in Serum or Plasma PSA Lab Routine Screening for prostate cancer Expected: 06/14/2024 (Approximate), Expires: 06/14/2025 [facility] Work Phone: Comment on above: Expected: 06/14/2024 (Approximate), Expires: 06/14/2025 Start: 06-14-2024 End: 06-14-2025 US.doppler Lower extremity artery - bilateral Vascular US lower extremity arterial duplex bilateral Imaging Routine Claudication (CMS/HCC) Expected: 06/14/2024, Expires: 06/14/2025 [facility] Comment on above: Expected: [...] Visit [facility] [address] [place] [phone] Charissa Blair, [address] [address] [facility] Start: 05-09-2024 End: 05-09-2024 Patient encounter procedure 05/09/2024 10:30 AM EST Office Visit [facility] [address] [place] [address] [place] [address] Charissa Blair, DO [address] [place] [address] [place] [address] [facility] Start: 05-03-2024 End: 05-03-2024 Admission to same day surgery center 05/03/2024 7:45 AM EST - 05/03/2024 10:00 AM EST Surgery [facility] [address] [place] [address] Charissa Blair, DO [address] [place] [address] [place] [address] REPLACEMENT TOTAL JOINT HIP [04345 (CPT )] [facility] Comment on above: REPLACEMENT TOTAL BEKA INT HIP [22699 (CPT )] Start: 05-03-2024 End: 05-03-2024 Arthrp acetblr/prox fem prostc agrft/algrft REPLACEMENT TOTAL JOINT HIP left hip degenerative joint disease 05/03/2024 7:45 AM EST [facility] Start: 05-03-2024 Subsequent hospital visit by physician 05/03/2024 7:45 AM EST Hospital Encounter [facility] [address] [place] [phone] Charissa Blair, DO [address] [place] [address] [place] [address] [facility] Start: 05-03-2024 End: 05-03-2024 Patient encounter procedure 05/03/2024 7:30 AM EST Procedure Visit [facility] Charissa Blair, DO [address] [place] [address] [place] [address] [facility] Start: 04-24-2024 End: 03-06-2025 Crossmatch RBC Crossmatch RBC Blood Bank Routine Preop examination Hypertension, unspecified type Expected: 04/24/2024, Expires[facility] Expected: 04/24/2024 , Expires: 03/06/2025 Start: 04-24-2024 End: 03-06-2025 Type and screen(includes indirect phill) Type and screen(includes indirect phill) Blood Bank Routine Preop examination Hypertension, unspecified type Expected: 04/24/2024, Expires: 03/06/2025 [facility] Work Phone: Comment on above: Expected: 04/24/2024 , Expires: 03/06/2025 Start: 04-17-2024 End: 04-17-2024 Patient encounter procedure [facility] Comment on above: Arrived Start: 04-06-2024 End: 04-06-2024 Patient encounter procedure [facility] Comment on above: Left hip pain; Arthritis of left hip Start: 03-08-2024 End: 03-08-2024 Patient encounter procedure 03/08/2024 11:15 AM EDT Office Visit [facility] [address] [facility] [address] [place] [phone] Javad Donato MD [address] [facility] [address] [place] [address] [facility] Start: 02-27-2024 Influenza vaccination [facility] Start: 09-20-2023 End: 09-20-2023 Patient encounter procedure 09/20/2023 10:30 AM EDT Office Visit [facility] [address] [place] [phone] Jose Hernández, PROCESS CONTROL SUPERVISOR [address] [place], [place] [phone] [facility] Start: 08-27-2023 End: 08-27-2023 ambulatory 08/27/2023 9:30 AM EST Treatment [facility] [address] [place] [address] Nagi Plata, PT [address] [place] [address] [facility] Start: 08-23-2023 End: 08-23-2023 ambulatory 08/23/2023 9:30 AM EST Treatment [facility] [address] [place] [address] Jeanna Mendiola, HOUSEMAN [address] [place] [address] [facility] Start: 08-20-2023 End: 08-20-2023 ambulatory 08/20/2023 9:30 AM EST Treatment [facility] [address] [place] [address] Jeanna Mendiola, HOUSEMAN [address] [place] [address] [facility] Start: 08-16-2023 End: 08-16-2023 ambulatory 08/16/2023 9:30 AM EST Treatment [facility] [address] [place] [address] Jeanna Mendiola, HOUSEMAN [address] [place] [address] [facility] Start: 08-13-2023 End: 08-13-2023 ambulatory 08/13/2023 9:30 AM EST Treatment [facility] [address] [place] [phone] Nagi Palta, PT [address] [place] [address] [facility] Start: 08-09-2023 End: 08-09-2023 Patient encounter procedure 08/09/2023 1:00 PM EST Office Visit [facility] [address] [place] [address] Jose Hernández, PROCESS CONTROL SUPERVISOR [address] [place], [place] [phone] [facility] Start: 08-09-2023 End: 08-09-2023 ambulatory [facility] Comment on above: Arrived Start: 08-06-2023 End: 08-06-2023 ambulatory 08/06/2023 9:30 AM EST Treatment [facility] [address] [place] [address] Jeanna Mendiola, BRENT [address] [place], [place] [phone] [facility] Start: 08-02-2023 End: 08-02-2023 ambulatory [facility] Comment on above: Arrived Start: 02-26-2023 Influenza vaccination [facility] Start: 06-28-2022 ADVANCE DIRECTIVE DISCUSSION ADVANCE DIRECTIVE DISCUSSION [facility] Start: 06-28-2022 DEPRESSION ASSESSMENT DEPRESSION ASS ESSMENT [facility] Start: 2019 Abdominal aortic aneurysm screening Abdominal Aortic Aneurysm (AAA) Screen [facility] Start: 2019 Fall Risk Screening Fall Risk Screen ing [facility] Start: 2019 PNEUMOCOCCAL: 65+ (1 - PCV) PNEUMOCOCCAL: 65+ (1 - PCV) [facility] Start: 07-08-2015 Administration of varicella zoster vaccine Zoster (Shingles) Vaccine (2 of 3) [facility] Start: 07-08-2015 Shingrix Vaccine (2 of 3) Shingrix Vaccine (2 of 3) [facility] Start: 2014 RSV Vaccine (1 - 1-d ose 60+ series) RSV Vaccine (1 - 1-dose 60+ series) [facility] Start: 01-02-2004 SHINGRIX VACCINE (1 of 2) SHINGRIX VACCINE (1 of 2) [facility] Start: 1999 COLOGUARD (FIT-DNA) COLOGUARD (FIT-D NA) [facility] Start: 1999 Colonoscopy COLONOSCOPY [facility] Start: 1999 COLORECTAL CANCER SCREENING COLORECTAL CANCER SCREENING [facility] Start: [address] COLONOGRAPHY [facility] Start: 1999 DIABETES SCREEN DIABETES SCREEN [facility] Start: 1999 Diabetes Screening Diabetes Screenin g [facility] Start: 1999 FECAL OCCULT BLOOD FECAL OCCULT BLOO D [facility] Start: 1999 SIGMOIDOSCOPY SIGMOIDOSCOPY [facility] Start: 1989 Lipid 1996 panel - Serum or Plasma Lipid Screening [facility] Start: 1989 LIPID SCREEN LIPID SCREEN [facility] Start: 1973 Urine microalbumin profile [facility] Start: 01-02-1972 Adult BMI Follow Up Plan Adult BMI Follow Up Plan [facility] Start: 01-02-1972 HEPATITIS C SCREENING HEPATITIS C SC REENING [facility] Start: 1966 Depression Screening Depression Scre ening [facility] Start: 1954 COVID-19 VACCINE (#1) COVID-19 VACCI NE (#1) [facility] Start: 1954 Abdominal Aortic Aneurysm Screening Abdominal Aortic Aneurysm Screening [facility] Start: 1954 Medicare Annual Wellness Visit Medicare Annual Wellness Visit [facility] Start: 1954 Screening for malign ant neoplasm of colon [facility] End: 05-12-2024 XR HIP BILATERAL 5V PEL/AP/LAT EACH HIP XR HIP BILATERAL 5V PEL/AP/LAT EACH HIP Radiology Routine Bilateral hip joint arthritis 1 Occurrences starting 04/13/2023 until 05/12/2024 [facility] Work Phone: Comment on above: 1 Occurrences starti ng 04/13/2023 [facility] Immunization Date Immunization Notes Care Provider Estevan sorto 06-14-2024 influenza virus vaccine, unspecified formulation Mac SANTIAGO [facility] 06-14-2024 Influenza, High-dose Seasonal, Quadrivalent, Preservative Free Javad Donato MD Work Phone: [facility] 05-18-2023 RSV vaccine preF3, recombinant Mac SANTIAGO [facility] 05-18-2023 RSV, recombinant, protein subunit RSVpreF, adjuvant reconstitu, 120mcg/0.5mL, PF (Arexvy) Nagi Narendra PT Work Phone: [facility] Work Phone: 05-18-2023 tetanus toxoid, redu sri diphtheria toxoid, and acellular pertussis vaccine, adsorbed Nagi Narendra PT Work Phone: [facility] 05-17-2023 Influenza, High-dose Seasonal, Quadrivalent, Preservative Free Nagi Narendra PT Work Phone: [facility] 05-17-2023 influenza virus vaccine, unspecified formulation Nagi Narendra PT Work Phone: [facility] 04-03-2022 influenza, high dose seasonal, preservative-free Nagi Narendra PT Work Phone: [facility] 04-03-2022 Influenza, High-dose Seasonal, Quadrivalent, Preservative Free Nagi Narendra PT Work Phone: [facility] 04-03-2022 influenza virus vaccine, unspecified formulation Laila Lewis PA-C Work Phone: [facility] 05-21-2020 influenza virus vaccine, unspecified formulation Mac SANTIAGO [facility] 05-21-2020 influenza, injectabl e, quadrivalent, contains preservative Nagi Narendra PT Work Phone: [facility] 05-21-2020 pneumococcal conjuga te vaccine, 13 valent Nagi Narendra PT Work Phone: [facility] 04-10-2020 influenza virus vaccine, unspecified formulation Mac SANTIAGO [facility] 05-03-2019 influenza virus vaccine, unspecified formulation Macmichelle SANTIAGO [facility] 05-03-2019 influenza, injectabl e, madin sancho canine kidney, preservative free Nagi Narendra PT Work Phone: [facility] 05-03-2019 pneumococcal polysaccharide vaccine, 23 valent Nagi Narendra PT Work Phone: [facility] 05-02-2018 influenza virus vaccine, unspecified formulation Macmichelle SANTIAGO [facility] 05-02-2018 seasonal influenza, intradermal, preservative free Nagi Narendra PT Work Phone: [facility] 06-07-2017 influenza virus vaccine, unspecified formulation Macmichelle SANTIAGO [facility] 06-07-2017 influenza, injectabl e, quadrivalent, contains preservative Nagi Narendra PT Work Phone: [facility] 05-13-2015 zoster vaccine, live Nagi Sp collado PT Work Phone: [facility] 05-13-2015 zoster vaccine, unspecified formulation Pmh 1 [facility] NEGATED: Highlighted row has not occurred!08-18-2021 SARS-CoV-2 (COVID-19) Ad26 vaccine, recombinant Mac SANTIAGO [facility] Payers Date Payer Category Payer Self-pay 2021 Private Health Insurance [id number] 2019 Unknown [id number] 2018 Medicare [id number] 1959 Medicare [id number] 1959 Unknown [id number] 1954 Unknown [id number] 2.16.84 0.1.071997.3.579.2.593 1954 Unknown [id number] 2.16.84 0.1.438606.3.579.2.593 1954 Unknown [id number] 2.16.84 0.1.573860.3.579.2.593 1954 Unknown [id number] 2.16.84 0.1.592266.3.579.2.593 1954 Unknown [id number] 2.16.84 0.1.013598.3.579.2.593 1954 Unknown [id number] 2.16.84 0.1.369268.3.579.2.593 1954 Unknown [id number] 2.16.84 0.1.020663.3.579.2.593 1954 Unknown [id number] 2.16.84 0.1.161435.3.579.2.593 1954 Unknown [id number] 2.16.84 0.1.212752.3.579.2.593 1954 Unknown [id number] 2.16.84 0.1.308590.3.579.2.593 1954 Unknown [id number] 2.16.84 0.1.658669.3.579.2.593 1954 Unknown [id number] 2.16.84 0.1.619226.3.579.2.593 1954 Unknown [id number] 2.16.84 0.1.484818.3.579.2.593 1954 Unknown [id number] 2.16.84 0.1.024445.3.579.2.593 1954 Unknown [id number] 2.16.84 0.1.046583.3.579.2.593 1954 Unknown [id number] 2.16.8 40.1.526526.3.579.2.1286 1954 Unknown [id number] 2.16.8 40.1.193481.3.579.2.1286 1954 Unknown [id number] 2.16.8 40.1.670482.3.579.2.1286 1954 Unknown [id number] 2.16.8 40.1.652275.3.579.2.128 1954 Unknown [id number] 2.16.8 40.1.084558.3.579.2.1286 1954 Unknown [id number] 2.16.84 0.1.791666.3.579.2.1286 1954 Unknown [id number] 2.16.84 0.1.090559.3.579.2.1286 1954 Unknown [id number] 2.16.84 0.1.555793.3.579.2.1286 1954 Unknown [id number] 2.16.84 0.1.662270.3.579.2.1286 1954 Unknown [id number] 2.16.84 0.1.346914.3.579.2.1286 1954 Unknown [id number] 2.16.8 40.1.592295.3.579.2.1259 1954 Unknown [id number] 2.16.84 0.1.718639.3.579.2.1259 1954 Unknown [id number] 2.16.84 0.1.908422.3.579.2.1259 1954 Unknown [id number] 2.16.84 0.1.782363.3.579.2.1259 1954 Unknown [id number] 2.16.84 0.1.379361.3.579.2.1258 1954 Unknown [id number] 2.16.84 0.1.197010.3.579.2.1258 1954 Unknown [id number] 2.16.84 0.1.786343.3.579.2.1258 1954 Unknown [id number] 2.16.84 0.1.226480.3.579.2.1258 1954 Unknown [id number] 2.16.84 0.1.140058.3.579.2.1258 1954 Unknown [id number] 2.16.84 0.1.026972.3.579.2.1258 1954 Unknown [id number] 2.16.84 0.1.173870.3.579.2.1258 1954 Unknown [id number] 2.16.84 0.1.386586.3.579.2.1258 1954 Unknown [id number] 2.16.84 0.1.999643.3.579.2.1258 1954 Unknown [id number] 2.16.84 0.1.943370.3.579.2.1258 1954 Unknown [id number] 2.16.84 0.1.065477.3.579.2.1258 1954 Unknown [id number] 2.16.84 0.1.719828.3.579.2.1258 1954 Unknown [id number] 2.16.84 0.1.297400.3.579.2.1258 1954 Unknown [id number] 2.16.84 0.1.364044.3.579.2.1258 1954 Unknown [id number] 2.16.84 0.1.247030.3.579.2.12584 Unknown [id number] 2.16.84 0.1.597903.3.579.2.1258 1954 Unknown [id number] 2.16.84 0.1.560376.3.579.2.1258 1954 Unknown [id number] 2.16.84 0.1.925324.3.579.2.1258 1954 Unknown [id number] 2.16.84 0.1.547036.3.579.2.1258 1954 Unknown [id number] 2.16.84 0.1.282858.3.579.2.1258 1954 Unknown [id number] 2.16.84 0.1.332018.3.579.2.1258 1954 Unknown [id number] 2.16.84 0.1.505643.3.579.2.1258 1954 Unknown [id number] 2.16.84 0.1.113345.3.579.2.125 1954 Unknown [id number] 2.16.84 0.1.604045.3.579.2.1258 1954 Unknown [id number] 2.16.84 0.1.669227.3.579.2.1258 1954 Unknown [id number] 2.16.84 0.1.124642.3.579.2.125 1954 Unknown [id number] 2.16.84 0.1.816262.3.579.2.125 1954 Unknown [id number] 2.16.8 40.1.903289.3.579.2.727 1954 Unknown [id number] 2.16.8 40.1.861146.3.579.2.727 1954 Unknown [id number] 2.16.8 40.1.507234.3.579.2.727 1954 Unknown [id number] 2.16. 840.1.361041.3.579.2.196 1954 Unknown [id number] 2.16. 840.1.573753.3.579.2.196 1954 Unknown [id number] 2.16. 840.1.282746.3.579.2.196 Unknown [id number] 2.16.8 40.1.423099.3.579.2.531 Social History Date Type Detail Facility Start: 05-05-2021 End: 02-05-2025 Ex-smoker (finding) [facility] Start: 04-15-2023 End: 05-10-2023 Male [facility] Start: 1955 Sex Assigned At Male [facility] Tobacco smoking stat [facility] Tobacco smoking consumption unknown [facility] Start: 02-02-2023 Gender identity Identifies as male gender (finding) [facility] Start: 02-02-2023 Sexual orientation Heterosexual (finding) [facility] Start: 06-28-1967 End: 09-27-1975 History of tobacco use Current smoker [facility] Work Phone: Start: 06-28-1967 End: 09-27-1975 History of tobacco use Cigarette Smoker [facility] Work Phone: Start: 04-15-2023 End: 05-10-2023 History of Social function [facility] Adult Depression Screening Assessment 1 [facility] Start: 01-11-2023 End: 02-17-2024 Tobacco use and exposure Smokeless tobacco non-user [facility] Start: 07-12-2023 End: 11-29-2024 Alcohol intake Current drinker of alcohol (finding) [facility] Within the last year , have you been afraid of your partner or ex-partner? No [facility] Do you belong to any clubs or organizations such as jainism groups, unions, fraternal [...] Start: 05-28-2023 Tobacco Comment 1976 quit smoking [facility] Start: 05-27-2020 Alcohol Comment occasional [facility] Start: 04-04-2024 Alcohol Comment rare [facility] Sexual Orientation [facility] Sex Male (finding) [facility] Medical Equipment Procedure Code Equipment Code Equipment Origin al Text Equipment Identifier Dates Stem Fem 129d 4 06/10 45.5mm Fitmore Protasul-64 Hip Rgh - [id number] Start: 07-07-2023 Maryann Biomet Femoral Head 36mm [id number] Start: 07-07-2023 Screw Bn 30mm 6. [address] Actb Seven Trlg Strl Rpl [id number] 29 - [id number] Start: 07-07-2023 Shell Actb 56mm Hip 4 Hl Clr Cd [place] G7 F Hmsphr - Sna - [id number] Start: 07-07-2023 Liner Actb 36mm F Vivacit-E Lum G7 Hip Strl Lf - [id number] Start: 07-07-2023 Screw Bn 30mm 6. [address] Actb Esven Trlg Strl Rpl [id number] 29 - [id number] Start: 07-07-2023 Screw Bn 30mm 6. 5mm St Actb Seven Trlg Strl Rpl [id number] 29 - [id number] Start: 07-07-2023 Functional Status Date Assessment Result Facility 11-29-2024 Patient Health Quest ionnaire 2 item (PHQ-2) [Reported] [facility] 10-25-2024 Patient Health Quest ionnaire 2 item (PHQ-2) [Reported] [facility] 02-07-2024 Functional Status N/A [facility] 06-01-2022 Functional Status N/A [facility] 02-16-2022 N/A [facility] Clinical Notes 02-16-2022 to 02-05-2025 MARY Mcarthur - 11/29/2024 11:30 AM EDTTelephone Encounter - Priscilla Cameron - 11/28/2024 1:37 PM EDTTelephone Encounter - Priscilla Cameron - 11/28/2024 1:37 PM EDTPatient InstructionsAttachments Note [...] your health care provider. General instructions Take fvzw-ymd-dvunqvy and prescription medicines only as told by [...] provider. Document Revised: 03/03/2021 Document Reviewed: 03/03/2021 [employer] Patient Education 2023 [employer]. Follow Up Care 02/07/2024 11:34:29 With:PAMELA BAER, Mac Stephenson, URL Address: [address] [place] [id number] When: Unknown [facility] 02-05-2025 Note Patient Education Obstetrics and Gynecology [...] health care provider. General instructions ??? Take sqsn-cdu-thuqrtk and prescription medicines only as told by [...] drink, and whe (more content not included)... [facility] 11-29-2024 History of Present illness Narrative [...] mg by mouth in the morning. HYDROcodone-acetaminophen ([place]) 5-325 MG tablet Take 1 tablet by [...] Name Age of Onset Cancer Mother Pamela Frankter Hypertension Father Past Medical History: Diagnosis Date [...] reviewed for this patient. Benign essential hypertension ([facility]) Patient's blood pressure is currently stable. Continue [...] follow up with Dr. 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 documented in this encounter [facility] 11-28-2024 Telephone encounter Note Appt scheduled [facility] 11-28-2024 Miscellaneous Notes Appt scheduled Patient will need an appointment Prednisone 20 mg for a skin irritation. He said that he usually gets this medication. Clotrimazole - betamethasone cream for althetes foot He said he hasn't had these meds in a while and didn't know if he would need an appointment or not [facility] [place] documented in this encounter [facility] 11-27-2024 Telephone encounter Note Patient will need an appointment [facility] 11-27-2024 Telephone encounter Note Prednisone 20 mg for a skin irritation. He said that he usually gets this medication. Clotrimazole - betamethasone cream for althetes foot He said he hasn't had these meds in a while and didn't know if he would need an appointment or not [facility] 10-30-2024 History of Present illness Narrative Images [...] Orally finasteride (PROSCAR) 5 mg, Daily HYDROcodone-acetaminophen ([place]) 5-325 MG tablet 1 tablet, Oral, Every [...] Unremarkable left total hip arthroplasty. Jose Hernández COMMERCIAL LOAN CLOSER-LIVING MANAGER Procedures Orders Placed This Encounter Procedures XR [...] requiring urgent evaluation. documented in this encounter [facility] 10-25-2024 History of Present illness Narrative Images [...] day at the same time. [DISCONTINUED] HYDROcodone-acetaminophen ([place]) 5-325 MG tablet Take 1 tablet by [...] LDL-C. Humberto SS et al. LULU. 2013;310(19): 3921-6319 (http://education.[employer]faq/IFC064) CHOL/HDLC RATIO 06/14/2024 5.4 (H) <5.0 (calc) [...] mL/min/1.73m2 Final BUN/CREATININE RATIO 06/14/2024 SEE NOTE: - (calc) Final Comment: Not Reported: BUN and [...] diagnosis of diabetes in children. According to [place] Diabetes Association (ADA) guidelines, hemoglobin A1c <7.0% represents optimal control in non- diabetic patients. Different metrics may apply to specific patient populations. Standards of Medical Care in Diabetes(ADA). Assessment/Plan Diagnoses and all orders for this visit: Herniated lumbar disc without myelopathy - HYDROcodone-acetaminophen ([place]) 5-325 MG tablet; Take 1 tablet by [...] for Routine F/U. documented in this encounter [facility] 09-25-2024 Telephone encounter Note LM for pt to CB [facility] 09-25-2024 Miscellaneous Notes LM for pt to CB Lm to cb Lm on vm to call us, need to know why he is wanting or needing this Patient is wondering if he needs/or is due for an MMR vaccine. documented in this encounter [facility] 09-22-2024 Telephone encounter Note Lm to cb [facility] 09-21-2024 Telephone encounter Note Lm on vm to call us, need to know why he is wanting or needing this [facility] 09-21-2024 Telephone encounter Note Patient is wondering if he needs/or is due for an MMR vaccine. [facility] 07-31-2024 History of Present illness Narrative Images [...] requiring urgent evaluation. documented in this encounter [facility] 07-27-2024 History of Present illness Narrative Images [...] mg by mouth in the morning. HYDROcodone-acetaminophen ([place]) 5-325 MG tablet Take 1 tablet by [...] Name Age of Onset Cancer Mother Pamela oSsa Hypertension Father Past Medical History: Diagnosis Date [...] risks of opioid therapy including potential for [employer] s/e, GI s/e, respiratory s/e, dermatologic s/e, [...] Medication Follow Up. documented in this encounter [facility] 07-03-2024 History of Present illness Narrative Images from the original note were not included. HISTORY OF PRESENT ILLNESS: POST OP PT Lawson Vela is an 69 y.o. @ male. (EST PT) S/P (L) NASH 05/03/24 (8WKS 5DAYS) XRAYS 06/12/24 IN [facility] DOING WELL- CONTINUES WITH PT, WANTS TO START AQUATIC THERAPY AT [facility]. USES CANE PRN. GOOD ROM/STRENGTH- +HYDROCODONE PER [...] requiring urgent evaluation. documented in this encounter [facility] 06-20-2024 History of Present illness Narrative Images [...] ind with HEP for maintenance/progression prn at [place] Short Term Goal #2: pt will demo [...] sign below. Date: documented in this encounter [facility] 06-14-2024 History of Present illness Narrative Images [...] mg by mouth in the morning. HYDROcodone-acetaminophen ([place]) 5-325 MG tablet Take 1 tablet by [...] Do you have a medical power of demonstrator knitting?: (Patient-Rptd) (P) No Objective : BP 126/70 [...] a living will and durable power of demonstrator knitting for healthcare. We discussed telling keith people about their advance directives such as close family members, and requested a copy to scan into the patient's EHR. An advance directive packet was offered to the patient. Assessment/Plan Diagnoses and all orders for this visit: Routine general medical examination at health care facility ACP (advance care planning) Benign essential hypertension ([facility]/HCC) - Lipid panel; Future - Comprehensive metabolic [...] need - Influenza, high-dose seasonal, quadrivalent, PF (PLI626) (Fluzone High Dose Quad North 0.7mL dose) Herniated lumbar disc without myelopathy - HYDROcodone-acetaminophen ([place]) 5-325 MG tablet; Take 1 tablet by mouth every 6 (six) hours if needed for severe pain Claudication ([facility]) - Vascular US lower extremity arterial duplex bilateral; Future Orders Placed This Encounter Procedures Influenza, high-dose seasonal, quadrivalent, PF (EHX556) (Fluzone High Dose Quad North 0.7mL dose) [...] June 14, 2024 documented in this encounter [facility] 06-12-2024 History of Present illness Narrative Images [...] Unremarkable left total hip arthroplasty. Jose Hernández COMMERCIAL LOAN CLOSER-LIVING MANAGER XR hip left 2 or 3 views [...] Unremarkable left total hip arthroplasty. Jose Hernández COMMERCIAL LOAN CLOSER-LIVING MANAGER Procedures Orders Placed This Encounter Procedures XR [...] requiring urgent evaluation. documented in this encounter [facility] 05-16-2024 History of Present illness Narrative Images [...] mg by mouth in the morning. HYDROcodone-acetaminophen ([place]) 5-325 MG tablet Take 1 tablet by [...] wrist GERD (gastroesophageal reflux disease) HTN (hypertension) ([facility]) Lumbosacral disc disease Osteoarthritis ALLERGIES: Allergies [...] if he desires a referral to another business performance specialist we would be happy to make referral, he states he would like to continue his care here. Boni Blair D.O. documented in this encounter [facility] 05-09-2024 History of Present illness Narrative Images from the original note were not included. HISTORY OF PRESENT ILLNESS: Laswon Vela is an 69 y.o. @ male. [...] mg by mouth in the morning. HYDROcodone-acetaminophen ([place]) 5-325 MG tablet Take 1 tablet by [...] wrist GERD (gastroesophageal reflux disease) HTN (hypertension) ([facility]) Lumbosacral disc disease Osteoarthritis ALLERGIES: Allergies [...] Blair/demi Blair D.O. documented in this encounter [facility] 05-08-2024 Telephone encounter Note Post op pain rx refill. PDMP reviewed [facility] 05-08-2024 Miscellaneous Notes Post op pain rx refill. PDMP reviewed documented in this encounter [facility] 05-04-2024 Telephone encounter Note He already discharged and PT is meeting with him today. [facility] 05-04-2024 Miscellaneous Notes He already discharged and PT is meeting with him today. Maxine myrick that patient is being discharged today from his LT Hip replacement and would like us to call patient to let him know what he needs to do. Patient's phone number is [phone]. documented in this encounter [facility] 05-04-2024 Telephone encounter Note Maxine myrick that patient is being discharged today from his LT Hip replacement and would like us to call patient to let him know what he needs to do. Patient's phone number is [phone]. [facility] 05-02-2024 Telephone encounter Note Post op pain rx. PDMP reviewed [facility] 05-02-2024 Miscellaneous Notes Post op pain rx. PDMP reviewed documented in this encounter [facility] 04-17-2024 History of Present illness Narrative Images from the original note were not included. HPI surgical clearance Additional comments: Pt sched 05/03/24 for left hip replacement with Dr Blair at [facility] PAT completed Last edited by France Farah LPN on 04/17/2024 1:48 PM. Subjective Patient ID: Lawson Vela is a 69 y.o. male who presents for surgical clearance (Pt sched 05/03/24 for left hip replacement with Dr Blair at [facility]/PAT completed). Pt has had left hip [...] mg by mouth in the morning. HYDROcodone-acetaminophen ([place]) 5-325 MG tablet Take 1 tablet by [...] with food 4 tablet 3 [DISCONTINUED] HYDROcodone-acetaminophen ([place]) 5-325 MG tablet No current facility-administered medications [...] As Previously Scheduled. documented in this encounter [facility] 04-12-2024 Telephone encounter Note OARRS reviewed, Rx sent into patient's pharmacy. [facility] 04-12-2024 Miscellaneous Notes OARRS reviewed, Rx sent into patient's pharmacy. Patient comment: Getting prepared for future surgery. documented in this encounter [facility] 04-12-2024 Telephone encounter Note Patient comment: Getting prepared for future surgery. [facility] 04-06-2024 History of Present illness Narrative HISTORY [...] tx: cane, norco, ice, heat, topicals, XR [facility] 11/01/23, hot tub, PREHAB/HEP Currently seeing pain management, Dr Ludwig [facility] for LBP MEDICATION: Current Outpatient Medications on [...] mg by mouth in the morning. HYDROcodone-acetaminophen ([place]) 5-325 MG tablet irbesartan-hydroCHLOROthiazide ([place]) 150-12.5 MG [...] wrist GERD (gastroesophageal reflux disease) HTN (hypertension) ([facility]) Lumbosacral disc disease Osteoarthritis ALLERGIES: Allergies [...] IMAGING: November 01, 2023 x-rays from the [facility] AP pelvis and lateral left hip [...] Blair/demi Blair D.O. documented in this encounter [facility] 04-04-2024 Instructions Trista Pelaez RN - 04/04/2024 [...] in at the main lobby of the [facility]- registration desk is straight ahead as soon as you walk in. Tell them you are here for surgery. 2. If you have a Living Will/Durable Power of Justice Of The Peace for Health Care that is not on [...] after you have bathed. 5. NO nail haitian/acrylic on at least one finger. If you are having a hand, wrist or foot surgery then all nail haitian and artificial/acrylic nails must be removed from [...] please call the Preadmission Testing office at [phone], Mon.-Fri. 7 a.m.-3 p.m. Leave a voicemail [...] with your doctor. documented in this encounter [employer] 04-04-2024 Miscellaneous Notes Patient called and educated to watch his YOLANDA education on total hip replacement prior to his PAT appointment next week. Patient verbalized understanding. documented in this encounter [facility] 04-04-2024 Nurse Note Patient called and educated to watch his YOLANDA education on total hip replacement prior to his PAT appointment next week. Patient verbalized understanding. [facility] 03-15-2024 History of Present illness Narrative No need for Prehab appt, has walker and has recently went through NASH, spoke with pt in parking lot, reviewed precautions good understanding. documented in this encounter [facility] 02-17-2024 History of Present illness Narrative Subjective [...] Name Age of Onset Cancer Mother Pamela Auxter Hypertension Father Past Medical History: Diagnosis Date [...] Appointment As Scheduled. documented in this encounter [facility] 02-07-2024 Hospital Discharge instructions Patient Education 02/07/2024 [...] urethra. Follow these instructions at home: Take rngo-xzm-duuzlkz and prescription medicines only as told by [...] provider. Document Revised: 12/31/2021 Document Reviewed: 12/31/2021 Elsevier Patient Education 2022 [employer] Follow Up Care 08/30/2023 12:37:09 With:PAMELA BAER, Mac Stephenson, URL Address: [facility] [address] , [place] [id number]- When: Unknown [facility] 02-07-2024 Note Patient Education Urology Benign Prostatic [...] Follow these instructions at home: ? Take foew-amu-katnxob and prescription medicines only as told by [...] develop for requiring urgent evaluation. Jose Hernández COMMERCIAL LOAN CLOSER-LIVING MANAGER documented in this encounter [facility] 07-07-2023 Hospital course Narrative Summary: status post hip replacement right Orthopaedic Discharge Summary Patient ID: Lawson Vela [id number] y.o. 1955 Admit date: 07/07/2023 Discharge [...] Closure: Deep and Superficial Layers Hospital Course:See [facility] inpatient notes for specifics Patient was admitted [...] Charissa Blair DO [facility] Progress note Formatting of t his note is different from the original. Physical Therapy Evaluation Discharge Recommendations PT Recommendations: Home Home Recommendations: Intermittent caregiver support for: Post Discharge Therapy Recommendations: Home Physical Therapy Roll Out Manager Support for-: ADL Deficits, Mobility Deficits Past Medical History: Diagnosis Date Arthritis Benign prostatic hyperplasia Fractures GERD (gastroesophageal reflux disease) Hypertension Past Surgical History: Procedure Laterality Date APPENDECTOMY RELEASE CARPAL TUNNEL Right 05/29/2020 Performed by Charissa Blair DO at [facility] 6 Clicks: Basic Mobility Turning [...] Fair Standing Balance: Dynamic: Fair RLE Assessment: (3) LLE Assessment: (09/30) 07/07/23 1351 NASH NASH [...] Principal Problem: Primary osteoarthritis of right hip [facility] [employer] 07-07-2023 Miscellaneous Notes Physical Therapy Evaluation Discharge Recommendations PT Recommendations: Home Home Recommendations: Intermittent caregiver support for: Post Discharge Therapy Recommendations: Home Physical Therapy Roll Out Manager Support for-: ADL Deficits, Mobility Deficits Past Medical History: Diagnosis Date Arthritis Benign prostatic hyperplasia Fractures GERD (gastroesophageal reflux disease) Hypertension Past Surgical History: Procedure Laterality Date APPENDECTOMY RELEASE CARPAL TUNNEL Right 05/29/2020 Performed by Charissa Blair DO at [facility] 6 Clicks: Basic Mobility Turning [...] in stable condition documented in this encounter [facility] 07-07-2023 Hospital Discharge instructions Janee Viera RN [...] swallowing) Questions, Problems, Concerns Preop phone number [phone] ext [phone] The following attachments cannot be sent through Care Everywhere.Total Hip Replacement Discharge Instructions (Croatian)documented in this encounter [facility] 07-07-2023 Attending History and physical note HISTORY AND PHYSICAL INTERVAL NOTE: Lawson Vela 1955 [id number] H&P reviewed. The patient was examined and there are no changes to the H&P. Charissa Blair DO Source Note - Charissa Blair DO - 07/06/2023 7:28 AM EST [facility] 07-07-2023 History and physical note HISTORY AND PHYSICAL INTERVAL NOTE: Lawson Vela 1955 [id number] H&P reviewed. The patient was examined and there are no changes to the H&P. Charissa Blair DO Source Note - Charissa Blair DO - 07/06/2023 7:28 AM EST documented in this encounter [facility] 07-07-2023 Procedure note Summary: Right hip replacement [...] to the recovery room in stable condition [facility] [employer] 04-13-2023 Note HNO ID: [id number] Author: Laila Lewis PA-C Service: ? Author Type: Physician Outboard Motor Tester Type: Progress Notes Filed: 04/15/2023 1:53 PM [...] a week. Hydrocodone, Meloxicam Zanaflex, Lidocaine patches rehab care assistant Prior to ablation symptoms on left [...] days 2 More (more content not included)... [facility] 04-13-2023 Instructions Laila Lewis PA-C [...] which is considered uptake). Laila Lewis PA-C [phone] documented in this encounter [facility] 04-13-2023 History of Present illness [...] a week. Hydrocodone, Meloxicam Zanaflex, Lidocaine patches rehab care assistant Prior to ablation symptoms on left [...] the patient MRI Lumbar: Narrative PERFORMED AT [facility] LOCATION:[facility] CLINICAL HISTORY: Low back pain extending into the right lower extremity. COMPARISON: 05/01/2022 TECHNIQUE: Multiplanar MR imaging of the lumbar spine was performed. FINDINGS: The spine is visualized from the X40-P0-A5 levels on the sagittal sequences, assuming a [...] narrowing. At the L5-S1 level, there is kaoy-iz-vrcttmps diffuse disc bulging and moderate hypertrophic facet changes, which results in moderate to marked neural foraminal narrowing. Procedure Note CONVERSION, GENERIC - 11/13/2022 PERFORMED AT [facility] LOCATION:[facility] [place] [facility] CLINICAL HISTORY: Low back pain extending into the right lower extremity. COMPARISON: 05/01/2022 TECHNIQUE: Multiplanar MR imaging of the lumbar spine was performed. FINDINGS: The spine is visualized from the L54-X5-N2 levels on the sagittal sequences, assuming a [...] narrowing. At the L5-S1 level, there is bjqn-di-qmmejquf diffuse disc bulging and moderate hypertrophic facet changes, which results in moderate to marked neural foraminal narrowing. 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 Report reported and signed by James Vizcaino on 10/19/2022 1406 CONVERSION, GENERIC - 11/14/2022 PERFORMED AT [facility] LOCATION:[place] [address] 110 EXAMINATION: XR HIPS TRENT 3_4V [...] AM PAGER: documented in this encounter [facility] 02-12-2023 Note HNO ID: [id number] Author: Laila Lewis PA-C Service: ? Author Type: Physician Outboard Motor Tester Type: Progress Notes Filed: 02/12/2023 12:58 PM Note Text: Per Triage: Lawson Vela is a 68 year old male that requests evaluation of lumbar spine. Per review, they have symptoms of LBP into left leg pain. Positive for numbness, difficulty walking and weakness. CMT: PT Hydrocodone rehab care assistant Studies (Reports unless indicated) MRI Lumbar: Narrative PERFORMED AT [facility] LOCATION:[facility] CLINICAL HISTORY: Low back pain extending into the right lower extremity. COMPARISON: 05/01/2022 TECHNIQUE: Multiplanar MR imaging of the lumbar spine was performed. FINDINGS: The spine is visualized from the J71-K6-T7 levels on the sagittal sequences, assuming a [...] narrowing. At the L5-S1 level, there is rojr-uf-jrcazryr diffuse disc bulging and moderate hypertrophic facet changes, which results in moderate to marked neural foraminal narrowing. Procedure Note CONVERSION, GENERIC - 11/13/2022 PERFORMED AT [facility] LOCATION:[facility] [place] [facility] CLINICAL HISTORY: Low back pain extending into the right lower extremity. COMPARISON: 05/01/2022 TECHNIQUE: Multiplanar MR imaging of the lumbar spine was performed. FINDINGS: The spine is visualized from the G63-F6-W9 levels on the sagittal sequences, assuming a [...] narrowing. At the L5-S1 level, there is nift-mu-bujfttik diffuse disc bulging and moderate hypertrophic facet changes, which results in moderate to marked neural foraminal narrowing. 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 Report reported and signed by James Vizcaino on 10/19/2022 140 Disposition: Please schedule with Laila. [facility] 02-12-2023 History of Present illness Narrative Per Triage: Lawson Vela is a 68 year old male that requests evaluation of lumbar spine. Per review, they have symptoms of LBP into left leg pain. Positive for numbness, difficulty walking and weakness. CMT: PT Hydrocodone rehab care assistant Studies (Reports unless indicated) MRI Lumbar: Narrative PERFORMED AT [facility] LOCATION:[facility] CLINICAL HISTORY: Low back pain extending into the right lower extremity. COMPARISON: 05/01/2022 TECHNIQUE: Multiplanar MR imaging of the lumbar spine was performed. FINDINGS: The spine is visualized from the Y89-U0-O0 levels on the sagittal sequences, assuming a [...] narrowing. At the L5-S1 level, there is kevf-ys-xnrujlef diffuse disc bulging and moderate hypertrophic facet changes, which results in moderate to marked neural foraminal narrowing. Procedure Note CONVERSION, GENERIC - 11/13/2022 PERFORMED AT [facility] LOCATION:[facility] CLINICAL HISTORY: Low back pain extending into the right lower extremity. COMPARISON: 05/01/2022 TECHNIQUE: Multiplanar MR imaging of the lumbar spine was performed. FINDINGS: The spine is visualized from the Y28-U0-O8 levels on the sagittal sequences, assuming a [...] narrowing. At the L5-S1 level, there is wqoi-gw-wppmnkij diffuse disc bulging and moderate hypertrophic facet changes, which results in moderate to marked neural foraminal narrowing. 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 Report reported and signed by James Vizcaino on 10/19/2022 1401 Disposition: Please schedule with Laila. Patient name: Lawson Vela Are you being referred by a Center for Spine Health Provider or Pain Management Provider at [facility]? No If answer is YES please schedule [...] the facility where the MRI/CT/myelogram was completed: [facility] Imaging Address: [address] [facility] [place] [address] [facility] Address: [address] [place] [id number] MRI/CT/myelogram viewable in Epic: No If not, please provide [phone] to fax in imaging reports for review. [...] physical therapy was completed PT Injections [facility] Address: [address] [place] [address] Have you tried any other kinds of [...] where the surgery was completed: Additional Comments [phone] (Home Phone) documented in this encounter [facility] 01-28-2023 Note HNO ID: [id number] Author: Mookie Lee Service: ? Author Type: ? Type: Progress Notes Filed: 02/12/2023 12:58 PM Note Text: Patient name: Lawson Vela Are you being referred by a [facility] Provider or Pain Management Provider at [facility]? No If answer is YES please schedule [...] the facility where the MRI/CT/myelogram was completed: [facility] Imaging Address: [address] [place] [address] [facility] Address: [address] [place] [address] MRI/CT/myelogram viewable in Epic: No If not, please provide [phone] to fax in imaging reports for review. [...] physical therapy was completed PT Injections [facility] Address: [address] [place] [address] Have you tried any other kinds of [...] where the surgery was completed: Additional Comments [phone] (Home Phone) [facility] [...] prednisone taper. Advised not to take any rlie-qai-kmcwxwh ibuprofen while taking prednisone. OARRS reviewed . [...] spine, education on diet, decrease sugar intake. [employer] Other 05-16-2023 NoteCONSULTATION CONSULTATION DATE: 11/10/2022 TO: [...] our patients to inform us about any gzjc-yiw-yiihrxg medications or herbal remedies/nutritional supplements/alternative remedies. 2. [...] treatment options with their primary care provider.[facility] [id number] Note CONSULTATION CONSULTATION DATE: 10/08/2022 TO: Javad [...] our patients to inform us about any gdgk-gcj-sdogepd medications or herbal remedies/nutritional supplements/alternative remedies. 2. [...] treatment options with their primary care provider.[facility] [id number] Note CONSULTATION CONSULTATION DATE: 09/10/2022 HISTORY: This [...] a tightness in that region. Medications include [place] 5/325 daily, tizanidine 4 mg q.h.s., Mobic [...] in three months' time unless otherwise indicated.[facility] [id number] NoteCONSULTATION PROCEDURE DATE: 09/10/2022 PREOPERATIVE DIAGNOSIS: Bilateral [...] pattern, and patient tolerated the procedure well.[facility] [id number] Note CONSULTATION CONSULTATION DATE: 07/23/2022 HISTORY OF [...] current medications include Mobic 50 mg daily, [place] 5/325 per his PCP daily p.r.n. and [...] up in the office after the procedure.[facility] [id number] NoteCONSULTATION CONSULTATION DATE: 06/25/2022 HISTORY OF PRESENT [...] with a vitamin regimen and he takes [place] 5/325 daily p.r.n., and Mobic 15 mg [...] following his procedure here in the office.[facility] [id number] Hospital Discharge instructions Patient Education 06/01/2022 08:22:09 [...] urethra. Follow these instructions at home: Take csrn-tht-svvpllo and prescription medicines only as told by [...] 06/14/2006 Document Revised: 05/09/2019 Document Reviewed: 07/19/2017 [employer] Patient Education 2020 [employer]. Follow Up Care 02/16/2022 11:28:21 With:PAMELA BAER, Mac Stephenson, URL Address: [facility] [address] , [place] [id number]- When: Unknown [facility] 11-22-2022 NoteCONSULTATION CONSULTATION DATE: 05/19/2022 CHIEF COMPLAINT: [...] The patient currently takes Mobic 15 mg, [place] 5/325 on a p.r.n. basis as prescribed [...] had been performed. CC: Javad Donato M.D.[facility] [id number] NoteCONSULTATION CONSULTATION DATE: 04/28/2022 CHIEF COMPLAINT: Left [...] patient takes two Aleve. He also takes Watts[place] 5/[address] Donato has prescribed for [...] like to proceed. CC: Javad Donato M.D.[facility] [id number] Hospital Discharge instructions Patient Education 02/16/2022 11:24:07 [...] urethra. Follow these instructions at home: Take akiv-qbq-wownulz and prescription medicines only as told by [...] 06/14/2006 Document Revised: 05/09/2019 Document Reviewed: 07/19/2017 [employer] Patient Education 2020 [employer]. 02/16/2022 11:24:04 Calorie Counting for Weight Loss [...] 06/14/2006 Document Revised: 03/03/2019 Document Reviewed: 05/14/2017 [employer] Patient Education Dely. Follow Up Care 08/18/2021 12:09:57 With:Mac SANTIAGO MD, URL Address: [address] [place], [place] [phone] Business (1) When:Within 6 Month(s) [facility] evaluation + Plan note Future Appointments Appointment Date:06/01/2022 10:45:00 AM Scheduled Provider:Mac SANTIAGO MD Location:[facility] Appointment Type:URO Office Visit [facility] evaluation + Plan note Future Appointments Appointment Date:11/30/2022 08:45:00 AM Scheduled Provider:Mac SANTIAGO MD Location:[facility] Appointment Type:URO [facility] Future Appointments Appointment Date:02/05/2025 10:45:00 AM Scheduled Provider:Mac SANTIAGO MD Location:[facility] Appointment Type:[facility]O [facility] Future Appointments Appointment Date:02/08/2026 08:15:00 AM Scheduled Provider:Mac SANTIAGO MD Location:[facility] Appointment Type:URO Office Visit [facility] evaluation noteNo assessment information available [facility] Work Phone: evaluation noteNort Responsive Sports Other evaluation note* Diagnosis Spinal stenosis, lumbar region with neurogenic claudication- Primary [facility] Spinal stenosis, lumbar region with neurogenic claudication- Primary Bilateral hip joint arthritis [facility] Diagnosis Right hip pain- Primary Pain in joint, pelvic region and thigh Status post total hip replacement, right documented in this encounter [facility]* Diagnosis Right [...] right hip replacement documented in this encounter [facility]* Diagnosis Left hip pain Pain in joint, pelvic region and thigh Arthritis of left hip documented in this encounter [facility] HealthcareEvaluation note* Diagnosis Herniated lumbar disc without myelopathy- Primary documented in this encounter [facility] HealthcareEvaluation note* Diagnosis Status post right hip [...] left hip arthroplasty documented in this encounter [facility] HealthcareEvaluation note* Diagnosis Left hip pain- Primary Pain in joint, pelvic region and thigh S/P total left hip arthroplasty documented in this encounter [facility] HealthcareEvaluation note* Diagnosis Left hip pain- Primary Pain in joint, pelvic region and thigh S/P total left hip arthroplasty documented in this encounter [facility] HealthcareEvaluation note* Diagnosis Acute non-recurrent frontal sinusitis- Primary Herniated lumbar disc without myelopathy documented in this encounter [facility] HealthcareEvaluation note* Diagnosis Primary osteoarthritis of right hip- Primary documented in [facility]* Diagnosis Preop examination- Primary Unspecified pre-operative examination Hypertension, unspecified type Preop examination Unspecified pre-operative examination Hypertension, unspecified type documented in this encounter [facility]* Diagnosis Herniated lumbar disc without myelopathy IGT (impaired glucose tolerance) Impaired glucose tolerance test Class 2 severe obesity with serious comorbidity and body mass index (BMI) of 37.0 to 37.9 in adult, unspecified obesity type ([facility]) Morbid (severe) obesity due to excess calories (CMS/[facility]) Essential (primary) hypertension (CMS/[facility]) Unspecified essential hypertension Body mass index (BMI) 38.0-38.9, adult Left hip pain Pain in joint, pelvic region and thigh documented in this encounter [facility] HealthcareEvaluation note* Diagnosis S/P total left hip arthroplasty- Primary Left hip pain Pain in joint, pelvic region and thigh documented in this encounter [facility] Healthcare[facility] note* Diagnosis Herniated lumbar disc without myelopathy- Primary Benign essential hypertension ([facility]/HCC) Essential hypertension, benign S/P total left hip arthroplasty Tinea pedis of both feet Skin irritation Unspecified disorder of skin and subcutaneous tissue Open wound of left lower leg, initial encounter Class 2 severe obesity due to excess calories with serious comorbidity and body mass index (BMI) of 38.0 to 38.9 in adult (CMS/[facility]) Umbilical hernia without obstruction and without gangrene Status post right hip replacement [facility] N[facility]ative - Reported* Type Description Date Medical History appendicitis Medical History Arthritis Medical History Hypertension Medical History obesity Medical History pneumonia Medical History prostate cancer Surgical History appendectomy Surgical History carpal tunnel release 2017 Hospitalization History see surg [employer] Other History general [facility]ative - [facility] [employer] Other Hospital course Narrative No data available for this section [facility] progress note No data available for this section [facility] reason for referral (narrative)* Diagnostic Procedure Only (Routine) - Pending Review Specialty Diagnoses / Procedures Referred By Contac t Referred To Contact XR IMAGING Diagnoses Bilateral hip joint arthritis Procedures XR HIP BILATERAL 5V PEL/AP/LAT EACH HIP RADEX HIPS BILATERAL WITH PELVIS MINIMUM 5 VIEWS Laila Lewis PA-C [address] [place] [address] [facility] [place] [address] Referral ID Status Reason Start Date Expiration Date Visits Requested Visits Authorized [id number] Pending Review Auto-Generat ed Referral 3 05/12/2024 1 1 * Consult, Test, Treat (Routine) - Pending Review Specialty Diagnoses / Procedures Referred By Rayray t Referred To Contact Orthopedics Diagnoses Bilateral hip joint arthritis Procedures CONSULT TO ORTHOPAEDICS OFFICE/OUTPATIENT [facility] 60-74 MINUTES Laila Lewis PA-C [address] [place] [address] Referral ID Status Reason Start Date Expiration Date Visits Requested Visits Authorized [id number] Pending Review PCP Requested Referral 3 04/12/2024 1 1 [facility] for visit Narrativeself referral- low back pain L4-L5 [place] [employer] Other reason for visit Narrative* Rehabilitation - Outpatient (Routine) - Authorized Specialty Diagnoses / Procedures Referred By Contac t Referred To Contact Physical Therapy Diagnoses S/P total left hip arthroplasty Procedures GA OFFICE/OUTPATIENT [facility] Jose Hernández, PROCESS CONTROL SUPERVISOR [place] [address] Phone: tel: fax: Nagi Plata, PT [address] [place] [address] Phone: tel: fax: Referral ID Status Reason Start Date Expiration Date Visits Requested Visits Authorized [id number] Authorized Consult and Treat 06/12/2024 06/27/2024 10 10 [facility] N[facility]ative* Rehabilitation - Outpatient (Routine) - Authorized Specialty Diagnoses / Procedures Referred By Contac t Referred To Contact Physical Therapy Diagnoses S/P total left hip arthroplasty Procedures [place] OFFICE/OUTPATIENT NEW HIGH MDM 60 MINUTES Jose Hernández, PROCESS CONTROL SUPERVISOR [address] [place] [address] Phone: tel: fax: Nagi Plata, PT [address] [place] [address] Phone: tel: fax: Referral ID Status Reason Start Date Expiration Date Visits Requested Visits Authorized [id number] Authorized Consult and Treat 06/29/2024 06/27/2025 20 20 [facility] Narrative* Rehabilitation - Outpatient (Routine) - Authorized Specialty Diagnoses / Procedures Referred By Contac t Referred To Contact Physical Therapy Diagnoses S/P total left hip arthroplasty Procedures [place] OFFICE/OUTPATIENT NEW HIGH MDM 60 MINUTES Jose Hernández, YISEL [address] [place] [address] Phone: tel: fax: Nagi Plata, PT [address] [place] [address] Phone: tel: fax: Referral ID Status Reason Start Date Expiration Date Visits Requested Visits Authorized [id number] Authorized Consult and Treat 06/29/2024 06/27/2025 20 [...] ECG 12 lead Charissa Blair DO [address] [place] [address] Referral ID Status Reason Start Date Expiration Date V isits Requested Visits Authorized [id number] Pending Review 03/06/2024 03/06/2025 1 1 Specialty Diagnoses / Procedures Referred By Contac t Referred To Contact Procedures Remove dressing (specify when) Nagi Miner, COMMERCIAL LOAN CLOSER-LIVING MANAGER [address], [facility] [address] [place] [address] Referral ID Status Reason Start Date Expiration Date V isits Requested Visits Authorized [id number] Pending Review 07/07/2023 07/06/2024 1 1 Specialty Diagnoses / Procedures Referred By Contac t Referred To Contact Procedures Adult diet Nagi Miner, COMMERCIAL LOAN CLOSER-LIVING MANAGER [address], [facility] [address] [place] [address] Referral ID Status Reason Start Date Expiration Date V isits Requested Visits Authorized [id number] Pending Review 07/07/2023 07/06/2024 1 1 Additional Source Comments Care Team (unrecognized sect ion and content) Team Status: Active Member Role Status Dates Javad Donato II MD Primary Care Provider Active Team Status: Inactive Member Role Status Dates Javad Donato II MD Primary Care Provider Active Erica Xiong NP-C Attending Provider Active Trans Router Relationship Specialty Start Date End Date Javad Donato MD [address] [place] [address] PCP - ACO Reach 11/19/22 Javad Donato MD [address] [place] [address] PCP - General Internal Medicine 01/05/23 Trans Router Relationship Specialty Start Date End Date Javad Donato MD [address] [place] [address] PCP - ACO Reach 11/19/22 Javad Donato MD [address] [place] [address] PCP - General Internal Medicine 01/05/23 Trans Router Relationship Specialty Start Date End Date Javad Donato MD [address] [place] [address] PCP - ACO Reach 11/19/22 Javad Donato MD [address] [place] [address] PCP - General Internal Medicine 01/05/23 Trans Router Relationship Specialty Start Date End Date Javad Donato MD [address] [place] [address] PCP - ACO Reach 11/19/22 Javad Donato MD [address] [place] [address] PCP - General Internal Medicine 01/05/23 Trans Router Relationship Specialty Start Date End Date Javad Donato MD [address] [place] [address] PCP - ACO Reach 11/19/22 Javad Donato MD [address] [place] [address] PCP - General Internal Medicine 01/05/23 Trans Router Relationship Specialty Start Date End Date Javad Donato MD [address] [place] [address] PCP - ACO Reach 11/19/22 Javad Donato MD [address] [place] [address] PCP - General Internal Medicine 01/05/23 Trans Router Relationship Specialty Start Date End Date Javad Donato MD [address] [place] [address] PCP - ACO Reach 11/19/22 Javad Donato MD [address] [place] [address] PCP - General Internal Medicine 01/05/23 Trans Router Relationship Specialty Start Date End Date Javad Donato MD [address] [place] [address] PCP - ACO Reach 11/19/22 Javad Donato MD [address] [place] [address] PCP - General Internal Medicine 01/05/23 Trans Router Relationship Specialty Start Date End Date Javad Donato MD [address] [place] [address] PCP - ACO Reach 11/19/22 Javad Donato MD [address] [place] [address] PCP - General Internal Medicine 01/05/23 Trans Router Relationship Specialty Start Date End Date Javad Donato MD [address] [place] [address] PCP - ACO Reach 11/19/22 Javad Donato MD [address] [place] [address] PCP - General Internal Medicine 01/05/23 Trans Router Relationship Specialty Start Date End Date Javad Donato MD [address] [place] [address] PCP - ACO Reach 11/19/22 Javad Donato MD [address] [place] [address] PCP - General Internal Medicine 01/05/23 Trans Router Relationship Specialty Start Date End Date Javad Donato MD [address] [place] [address] PCP - ACO Reach 11/19/22 Javad Donato MD [address] [place] [address] PCP - General Internal Medicine 01/05/23 Trans Router Relationship Specialty Start Date End Date Javad Donato MD [address] [place] [address] PCP - ACO Reach 11/19/22 Javad Donato MD [address] [place] [address] PCP - General Internal Medicine 01/05/23 Trans Router Relationship Specialty Start Date End Date Javad Donato MD [address] [place] [address] PCP - ACO Reach 11/19/22 Javad Donato MD [address] [place] [address] PCP - General Internal Medicine 01/05/23WednesdayMichelle LPN [address] [place] [address] Licensed Practical Nurse Family Medicine 05/08/24 Trans Router Relationship Specialty Start Date End Date Javad Donato MD [address] [place] [address] PCP - ACO Reach 11/19/22 Javad Donato MD [address] [place] [address] PCP - General Internal Medicine 01/05/23Wednesday, GLENDA MartinezN [address] [place] [address] Licensed Practical Nurse Family Medicine 05/08/24 Trans Router Relationship Specialty Start Date End Date Javad Donato MD [address] [place] [address] PCP - ACO Reach 11/19/22 Javad Donato MD [address] [place] [address] PCP - General Internal Medicine 01/05/23WednesdayMichelle LPN [address] [place] [address] Licensed Practical Nurse Family Medicine 05/08/24 05/16/24 Trans Router Relationship Specialty Start Date End Date Javad Donato MD [address] [place] [address] PCP - ACO Reach 11/19/22 Javad Donato MD [address] [place] [address] PCP - General Internal Medicine 01/05/23WednesdayMichelle LPN [address] [place] [address] Licensed Practical Nurse Family Medicine 05/08/24 05/16/24 Trans Router Relationship Specialty Start Date End Date Javad Donato MD [address] [place] [address] PCP - ACO Reach 11/19/22 Javad Donato MD [address] [place] [address] PCP - General Internal Medicine 01/05/23WednesdayMichelle LPN [address] [place] [address] Licensed Practical Nurse Family Medicine 05/08/24 05/16/24 Trans Router Relationship Specialty Start Date End Date Javad Donato MD [address] [place] [address] PCP - ACO Reach 11/19/22 Javad Donato MD [address] [place] [address] PCP - General Internal Medicine 01/05/23 Trans Router Relationship Specialty Start Date End Date Javad Donato MD [address] [place] [address] PCP - ACO Reach 11/19/22 Javad Donato MD [address] [place] [address] PCP - General Internal Medicine 01/05/23 Trans Router Relationship Specialty Start Date End Date Javad Donato MD [address] [place] [address] PCP - ACO Reach 11/19/22 Javad Donato MD [address] [place] [address] PCP - General Internal Medicine 01/05/23 Trans Router Relationship Specialty Start Date End Date Javad Donato MD [address] [place] [address] PCP - ACO Reach 11/19/22 Javad Donato MD [address] [place] [address] PCP - General Internal Medicine 01/05/23 Trans Router Relationship Specialty Start Date End Date Javad Donato MD [address] [place] [address] PCP - ACO Reach 11/19/22 Javad Donato MD [address] [place] [address] PCP - General Internal Medicine 01/05/23 Trans Router Relationship Specialty Start Date End Date Javad Donato MD [address] [place] [address] PCP - ACO Reach 11/19/22 Javad Donato MD [address] [place] [address] PCP - General Internal Medicine 01/05/23 Trans Router Relationship Specialty Start Date End Date Javad Donato MD [address] [place] [address] PCP - ACO Reach 11/19/22 Javad Donato MD [address] [place] [address] PCP - General Internal Medicine 01/05/23 Trans Router Relationship Specialty Start Date End Date Javad Donato MD [address] [place] [address] PCP - ACO Reach 11/19/22 Javad Donato MD [address] [place] [address] PCP - General Internal Medicine 01/05/23 Trans Router Relationship Specialty Start Date End Date Javad Donato MD [address] [place] [address] PCP - ACO Reach 11/19/22 Javad Donato MD [address] [place] [address] PCP - General Internal Medicine 01/05/23 Trans Router Relationship Specialty Start Date End Date Javad Donato MD [address] [place] [address] PCP - ACO Reach 11/19/22 Javad Donato MD [address] [place] [address] PCP - General Internal Medicine 01/05/23 Trans Router Relationship Specialty Start Date End Date Javad Donato MD [address] [place] [address] PCP - ACO Reach 11/19/22 Javad Donato MD [address] [place] [address] PCP - General Internal Medicine 01/05/23 Trans Router Relationship Specialty Start Date End Date Javad Donato MD [address] [place] [address] PCP - General Internal Medicine 06/15/17 Trans Router Relationship Specialty Start Date End Date Javad Donato MD [address] [place] [address] PCP - General Internal Medicine 06/15/17 Trans Router Relationship Specialty Start Date End Date Javad Donato MD [address] [place] [address] PCP - ACO Reach 11/19/22 Javad Donato MD [address] [place] [address] PCP - General Internal Medicine 01/05/23 Trans Router Relationship Specialty Start Date End Date Javad Donato MD [address] [facility] [address] [place] [address] PCP - ACO Reach 11/19/22 Javad Donato MD [address] [facility] [address] [place] [address] PCP - General Internal Medicine 01/05/23 Trans Router Relationship Specialty Start Date End Date Javad Donato MD [address] [facility] [address] [place] [address] PCP - ACO Reach 11/19/22 Javad Donato MD [address] [facility] [address] [place] [address] PCP - General Internal Medicine 01/05/23 (unrecognized sect ion and content) No Status Records FoundNo Status Records FoundNo Status Records FoundNo Status Records FoundNo Status Records FoundNo Status Records FoundNo Status Records FoundNo Status Records FoundNo Status Records FoundNo Status Records Found INFORMATION SOURCE (unrecogn ized section and content) DATE CREATED AUTHOR 05/02/2022 [facility] Me dical Specialist DATE CREATED AUTHOR AUTHOR'S ORGANIZ ATION 12/04/[address] [facility] DATE CREATED AUTHOR AUTHOR'S ORGANIZ ATION 01/13/2023 [facility] DATE CREATED AUTHOR AUTHOR'S ORGANIZ ATION 02/13/2023 [facility] DATE CREATED AUTHOR AUTHOR'S ORGANIZ ATION 04/17/[address] [facility] DATE CREATED AUTHOR AUTHOR'S ORGANIZ ATION 05/05/2024 [facility] DATE CREATED AUTHOR AUTHOR'S ORGANIZ ATION 06/18/2024 [facility] DATE CREATED AUTHOR AUTHOR'S ORGANIZ ATION 11/30/[address] [facility] dical Specialists [facility] DATE CREATED AUTHOR AUTHOR'S ORGANIZ ATION 02/06/2025 [facility] DATE CREATED AUTHOR AUTHOR'S ORGANIZ ATION 02/24/2025 [facility] Goals (unrecognized section and content) Goals may be documented in a n alternate section Source Comments (unrecognize d section and content) In the event this informatio n is protected by the Federal Confidentiality of Alcohol and Drug Abuse Patient Records regulations: The Federal rules restrict any use of the information to criminally investigate or prosecute any alcohol or drug abuse patient.[facility] the event this information is protected by the Federal Confidentiality of Alcohol and Drug Abuse Patient Records regulations: The Federal rules restrict any use of the information to criminally investigate or prosecute any alcohol or drug abuse patient.[facility] Reason for Visit (unrecogniz ed section and content) Reason Comments New Patient Specialty Diagnoses / Procedures Referred By Contac t Referred To Contact Physical Therapy Diagnoses Presence of artificial hip joint, right Procedures GA OFFICE/OUTPATIENT NEW HIGH MDM 60 MINUTES Charissa Blair, [address] [facility] [address] [place] [address] [address] [place] [address] Referral ID Status Reason Start Date Expiration Date Visits Requested Visits Authorized [id number] Authorized Specialty Services Required 07/08/2023 01/04/2024 30 30 Reason Comments Follow-up Reason Comments Pain Reason Onset Date Comments Med Refill 04/12/2024 Reason Comments surgical clearance Pt sched 05/03/24 for left hip replacement with Dr Blair at [facility] completed Reason Onset Date Comments Discharge 05/04/2024 Reason Comments Pain Reason Comments URI Reason Comments Medicare Annual Wellness Visit Kim barkley Med Refill Hydrocodone--[facility] [place]-for back pain pt [...] hip right hip degenerative joint disease Procedures GA TOTAL HIP ARTHROPLASTY REPLACEMENT TOTAL JOINT HIP Charissa Blair, DO [address] [facility] [address] [place] [address] Referral ID Status Reason Start Date Expiration Date Visits Re quested Visits Authorized [id number] 1 Reason Comments Hypertension Results Labs [...] Intra-op 0959 (Given - Provid er: Charissa Blair, DO) fentaNYL (SUBLIMAZE) injection 50 mcg 50 [...] BE BASED ON THE PRIMARY CLINICAL RECORDS. [employer] provides no warranty or guarantee of the accuracy or completeness of information in this document.
--- NOTE | 2025-03-07 08:24 | PM.CN ---
Consult Note: HPI Data of Consult Patient: known to practice within the last 3 years Requesting Physician: Kath Steiner NP Primary Care Provider: JOHNATHAN LÓPEZ Consult Narrative Reason for consult: low back and left hip pain Narrative: Lawson Vela a pleasant 70 year old male presents for evaluation and management of low back and left SIJ pain. Pt has longstanding low back and left hip pain unresponsive to > 6 weeks of PT/HEP/aquatherapy, heat, ice, tylenol, nsaids. pt currently utilizing tizanidine, meloxicam, and norco prn with benefit without side effects. Pain today 1/10 increasing to 6/10 with standing, walking, lifting, bending, sleep. Patient reporting pain very well controlled since left L4-5 L5-S1 TFESI on 02-19-25, >80% improvement in NC. denies fall/injury since last visit. pt interested in additional aquatherapy. cc:: CC: Kath Steiner NP Review of Systems ROS Musculoskeletal Reports: back pain and joint pain PFSH PFSH Medical History (Updated 10/25/24 @ 07:58 by Kath Steiner NP) Neuritis ?M79.2 - Neuralgia and neuritis, unspecified (ICD-10) Left carpal tunnel syndrome ?G56.02 - Carpal tunnel syndrome, left upper limb (ICD-10) Osteoarthritis ?M19.90 - Unspecified osteoarthritis, unspecified site (ICD-10) Low back pain ?M54.50 - Low back pain, unspecified (ICD-10) Obesity ?E66.9 - Obesity, unspecified (ICD-10) Enlarged prostate ?N40.0 - Benign prostatic hyperplasia without lower urinary tract symptoms (ICD-10) Former smoker ?Z87.891 - Personal history of nicotine dependence (ICD-10) Hypertension ?I10 - Essential (primary) hypertension (ICD-10) Surgical History H/O carpal tunnel repair ?Z98.890 - Other specified postprocedural states (ICD-10) H/O total hip arthroplasty ?Z96.649 - Presence of unspecified artificial hip joint (ICD-10) Hx of appendectomy ?Z90.49 - Acquired absence of other specified parts of digestive tract (ICD-10) Social History Smoking status: Former smoker Meds Home Medications and Allergies Home Medications ?Medication ?Instructions ?Recorded ?Confirmed ?Type ascorbic acid (vitamin C) 500 mg 500 mg PO DAILY 12/10/22 02/19/25 History tablet (C-500) bee pollen 550 mg capsule mg PO .QD 12/10/22 History carvedilol 6.25 mg tablet 6.25 mg PO BID 12/10/22 02/19/25 History cholecalciferol (vitamin D3) 10 10 mcg PO DAILY 12/10/22 02/19/25 History mcg (400 unit) capsule (Vitamin D3) finasteride 5 mg tablet 5 mg PO .QD 12/10/22 02/19/25 History hydrocodone 5 mg-acetaminophen 325 1 tab PO QID PRN pain 12/10/22 02/19/25 History mg tablet mecobalamin (vitamin B12) 1,000 1,000 mcg PO DAILY 12/10/22 02/19/25 History mcg chewable tablet (B12 Active) meloxicam 15 mg tablet 15 mg PO .QD 12/10/22 02/19/25 History multivitamin 1 tab PO DAILY 12/10/22 02/19/25 History sildenafil 100 mg tablet (Viagra) 100 mg PO DAILY PRN sexual activity 12/10/22 02/19/25 History solifenacin 10 mg tablet 10 mg PO DAILY 12/10/22 02/19/25 History tamsulosin 0.4 mg capsule 0.4 mg PO Q24H 12/10/22 02/19/25 History tizanidine 4 mg capsule 4 mg PO .HS PRN muscle spasticity 12/10/22 02/19/25 History vitamin B complex (Complex B-100 1 tab PO DAILY 12/10/22 02/19/25 History tablet,extended release) zinc 50 mg tablet 50 mg PO DAILY 12/10/22 02/19/25 History Allergies Allergy/AdvReac Type Severity Reaction Status Date / Time No Known Drug Allergies Allergy Verified 02/19/25 08:24 Exam Constitutional Documenting provider has reviewed patient's vital signs: yes Common normals: no apparent distress, oriented x3, healthy appearing, alert and well nourished General appearance: cooperative HENHI Common normals: normocephalic, hearing grossly normal bilaterally and moist oral mucous membranes Head and scalp: normocephalic Eye Common normals: PERRL Pupil: PERRL Neck & C-Spine Common normals: full ROM General: normal visual inspection Chest Common normals: inspection of chest normal Respiratory Common normals: normal respiratory effort, no retractions and no use of accessory muscles Back & Pelvis Lumbar spine/lower back: ROM limited, pain with ROM, lumbar spinal tenderness and straight leg raise negative bilaterally Sacroiliac joints: SI joint(s) abnormal Other: left sij positive sayra(patricks), gaenslens, thigh thrust, compression test strength 5/5 in BLE and sensation intact BLE Neuro Common normals: oriented x3 Sensorium/orientation: alert Psych Common normals: mental status grossly normal, thought process normal, cooperative, affect normal, speech normal and activity/motor behavior normal Speech: normal speech Thought process: normal thought process Results Additional Findings Additional findings: If on a controlled substance or opioids, I have checked an [place] report on this patient and there are no aberrancies noted in the prescribing history.??If on a controlled substance or opioid a drug screen was completed and reviewed within the last year, and if there has not been a drug screen completed we ordered one today to monitor higher risk, state monitored pain medication use. As part of providing excellent, safe, comprehensive care, the following was completed at our patient's visit: 1. A medication reconciliation and review to ensure accurate knowledge of current/active medications, including asking our patients to inform us about any [id number] medications or herbal remedies/nutritional supplements/alternative remedies. 2. A review to specifically ensure our patients have had annual screening for screening for depression, screening for tobacco use, and screening for unhealthy alcohol use. For concerning screenings had a discussion with the patient, provided patient education, and recommended follow-up with primary care provider when appropriate. If patient noted with a risk of falling, they received education on strength, gait, and balance training to prevent future risk of falling. Portions of this note may have been carried over from the previous visit and updated as appropriate. Please note this office utilizes paper charting in addition to the electronic medical record. A list of current medications, vitals, and PMH is available there as the clinical staff outside of myself do not have access to [employer] charting during the clinic day operations. As part of providing quality comprehensive care the current medications, vitals, and PMH were reviewed in the paper chart. Assessment and Plan Assessment and Plan (1) Sacroiliitis: Assessment and Plan: The patient has had over 3 months of moderate to severe low back and left SIJ pain with functional impairment and inadequate response to conservative care including NSAIDS (unless there are contraindication such as concurrent blood thinners), multiple oral or topical pain medications, and home exercise program/physical therapy.? Patient has completed >6 weeks of guided home exercise program and/or formal physical therapy program without relief of their symptoms.?? The Oswestry Disability Index was completed, and the patient scored a 32%.? (2) Lumbar stenosis with neurogenic claudication: Assessment and Plan: 02-19- left L4-5 L5-S1 TFESI >80% improvement in NC (3) Lumbar spondylosis: Assessment and Plan: declining lumbar mbbs/rfa workup for facet mediated axial low back pain Plan repeat left SIJ injection under fluoroscopy when pt calls, noting > 50% improvement from prior left SIJ injection but obvious pain on physical exam continue current medications continue HEP as tolerated, additional aquatherapy approved as requested by pt f/u after injection (pt to call to schedule)
== END 2025-03-07 07:58 | disposition home or self-care (01) ==
LOC: PM 07:57
PROVIDERS: PCP Internal Medicine; Visit Provider Nurse Practitioner
DX: M46.1 Sacroiliitis, not elsewhere classified (principal); M48.062 Spinal stenosis, lumbar region with neurogenic claudication; M47.816 Spondylosis without myelopathy or radiculopathy, lumbar region
CPT/HCPCS: G0463

== ENCOUNTER 2025-04-09 07:43 | Day surgery (SDC) | payer MEDICARE, OTHER, SELFPAY ==
--- OUTSIDE RECORDS SUMMARY | 2025-04-09 07:48 | XMS_ITS | CCD ---
Author Organization [facility] Care Team Providers Care Cloth Printer Helper Name Role Phone JAVAD DONATO Primary Care [...] Unavailable Javad Donato MD Primary Care Provider [phone] CHARISSA BLAIR Referring Unavailable JAVAD DONATO Primary Care Unavailable CHARISSA BLAIR Admitting Unavailable CHARISSA BLAIR Attending Unavailable JAVAD DONATO Primary Care Unavailable DEVNI SAUL Attending Unavailable JAVAD DONATO Primary Care [...] Unavailable JAVAD DONATO Primary Care Unavailable Wednesday SPECIAL AGENT IN CHARGE, Michelle Unavailable Wednesday SPECIAL AGENT IN CHARGE, Michelle Unavailable Javad Donato MD Primary Care [...] Unavailable ROSSY, CHARISSA Rose Attending Unavailable ROSSY, CHRAISSA Rose Attending Unavailable HERNÁNDEZ, JOSE Barkley Attending [...] every six hours for pain HYDROcodone-aceta minophen (Enfield) 5-325 MG tablet Indications: Herniated lumbar disc [...] Daily, # 90 tab(s), Refills(s) 3, Pharmacy: [facility] [id number], 186, cm, 02/05/25 10:36:00 EDT, Height/Length Dosing, [...] Daily, # 90 tab(s), Refills(s) 3, Pharmacy: [facility] [id number], 186, cm, 02/05/25 10:36:00 EDT, Height/Length Dosing, [...] BID, # 180 cap(s), Refills(s) 3, Pharmacy: [facility] [id number], 186, cm, 02/05/25 10:36:00 EDT, Height/Length Dosing, 130.4, kg, 02/05/25 10:36:00 EDT, Weight Dosing Start Date: 02/05/25 Status: Ordered Quantity: 180.0 Unit: cap(s) Repeat number: 4 Start: 08-21-2022 take 1 capsule by mo [facility] every twenty-four hours in the morning tamsulosin (Flomax) 0.4 MG 24 hr capsule Take 0.4 mg by mouth in the morning and 0.4 mg before bedtime. 08/21/2022 Active Start: 06-30-2021 take 1 capsule by mo [facility] twice daily tamsulosin 0.4 mg Cap 0.4 mg = 1 cap(s), Oral, BID, # 60 cap(s), Refills(s) 11, Pharmacy: [facility] [id number], 186, cm, 02/08/23 11:10:00 EDT, Height/Length Dosing, [...] Start: 02-07-2024 take 1 capsule by mo [facility] once daily Vitamin B Complex oral [...] Contact Information PAMELA BAER, Mac Stephenson, URL [address] [place] [address] [place] [address] Additional Instructions: 1 yr (PCP checks PSA) [...] tablet, 200 mg= 1 tab(s), Oral, q24hr Enfield 325 mg-5 mg oral tablet, 1 tab(s), [...] 05/18/2023 Recorded (more content not included)... Normal [facility] Comment on above: Result Comment: Elec tronically [...] Unremarkable left total hip arthroplasty. Jose Hernández LEAD ADVISOR-CATERING STAFF MEMBER [facility] I-Stand [facility] Radiology Study observation (narrative) [facility] I-Stand Laboratory - Hematology and Cell countson 10-25-2024 HbA1c (Bld) [Mass fraction] 5.8 % [facility] [employer]Stand No Panel Informationon 10-25 [facility] e MR LUMBAR SPINE WO CONTRASTo n [...] BY: Clark Landeros, DO Normal Not Available [facility] US LOWER EXTREMITY MEGHNA RIAL DUPLEX BILATERALon 06-22-2024 [facility] US LOWER EXTREMITY ARTERIAL DUPLEX [...] Location: Velocity/Waveform Location: Velocity/Waveform THIGH: THIGH: R DRIER FEEDER: 165 T L DRIER FEEDER: 119 T R SFA PROX: 101 T L SFA PROX: 121 T R SFA MID: 96 T L SFA MID 103 T R SFA DIST: 104 T L SFA DIST: 81 T R POP A: 54 T L POP A: 65 T CALF: CALF: R KAMERON: 111 T L KAMERON: 80 T R AUTOMATION QTP TESTER PROX: 105 T L AUTOMATION QTP TESTER PROX: 123 T R AUTOMATION QTP TESTER MID: 139 T L AUTOMATION QTP TESTER MID: 125 T R AUTOMATION QTP TESTER DIST: 129 T L AUTOMATION QTP TESTER DIST: 151 T R SALINAS: 105 B L SALINAS: 76 T IMPRESSION: No significant findings. Mild plaque in the right common femoral artery with less than 50% stenosis. *This report is generated using voice recognition reporting (ImmuRx). On occasion [employer] erroneously drops words from the report or [...] Comment on above: Performed By: #### 1 340, 33358 #### [facility] [place] [address] Market Maker: Katarzyna Khan #### 5363, 5030, 496 #### [facility] [address], [address] [place] [address] Market Maker: Casey Chi MD Hematocrit (Bld) [Volume fraction] 37.3 % Low 38.5-50.0 [facility] Comment on above: Performed By: #### 1 697, 77940 #### [facility] [address] [place] [address] Market Maker: Katarzyna Khan #### 5363, 3520, 496 #### [facility] [place] [address] [address] , [address] [place] [address] Market Maker: Casey Chi MD Hemoglobin (Bld) [Mass/Vol] 12.0 g/dL Low 13.2-17.1 [facility] Comment on above: Performed By: #### 1 759, 79123 #### [facility] [address] [place] [address] Market Maker: Katarzyna Khan #### 5363, 7600, 496 #### [facility] [place] [address], [address] [place] [address] Market Maker: Casey Chi MD MCH (RBC) [Entitic mass] 28.0 pg Normal 27.0-33.0 [facility] Comment on above: Performed By: #### 1 759, 34841 #### [facility] [phone] Market Maker: Katarzyna Khan #### 5363, 7600, 496 #### [facility] [address], [address] [place] [address] Market Maker: Casey Chi MD MCHC (RBC) [Mass/Vol] 32.2 [...] clinical condition. Performed By: #### 1 759, 66441 #### [facility] [address] [place] [address] Market Maker: Katarzyna Khan #### 5363, 4940, 496 #### [facility] [address], [address] [place] [address] Market Maker: Casey Chi MD MCV (RBC) [Entitic vol] 86.9 fL Normal 80.0-100.0 [facility] Comment on above: Performed By: #### 1 759, 05823 #### [facility] [place] [address] Market Maker: Katarzyna Khan #### 5363, 7600, 496 #### [facility] [address], [address] [place] [address] Market Maker: Casey Chi MD Platelet mean volume (Bld) [Entitic vol] 9.1 fL Normal 7.5-12.5 [facility] Comment on above: Performed By: #### 1 759, 86622 #### [facility] [place] [address] Market Maker: Katarzyna Khan #### 5363, 7600, 496 #### [facility] [address], [address] [place] [address] Market Maker: Casey Chi MD Platelets (Bld) [#/Vol] 242 10*3/uL Normal 140-400 [facility] Comment on above: Performed By: #### 1 759, 95730 #### [facility] [place] [address] Market Maker: Katarzyna Khan #### 5363, 7600, 496 #### [facility] [address], [address] [place] [address] Market Maker: Casey Chi MD RBC (Bld) [#/Vol] 4.29 10*6/uL Normal 4.20-5.80 [facility] Comment on above: Performed By: #### 1 759, 45876 #### [facility]-[address] Market Maker: Katarzyna Khan #### 5363, 7600, 496 #### [facility] [address], [address] [place] [address] Market Maker: Casey Chi MD WBC (Bld) [#/Vol] 7.7 10*3/uL Normal 3.8-10.8 [facility] Comment on above: Performed By: #### 1 759, 39053 #### [facility]-[address] Market Maker: Katarzyna Khan #### 5363, 7600, 496 #### [facility] [address], [address] [place] [address] Market Maker: Casey Chi MD [facility] METABOLIC [facility] 06-15-2024 Albumin [Mass/Vol] 3.9 g/dL Normal 3.6-5.1 [facility] Comment on above: Performed By: #### 1 759, 48785 #### [facility] [address] Market Maker: Katarzyna Khan #### 5363, 1600, 496 #### [facility] [address], [address] [place] [address] Market Maker: Casey Chi MD Albumin/Globulin [Mass ratio] 1.5 {ratio} Normal 1.0-2.5 [facility] Comment on above: Performed By: #### 1 759, 85175 #### [facility]-[address] Market Maker: Katarzyna Khan #### 5363, 7600, 496 #### [facility] [address], [address] [place] [address] Market Maker: Casey Chi MD ALP [Catalytic activity/Vol] 71 U/L Normal 35-144 [facility] Comment on above: Performed By: #### 1 759, 04159 #### [facility] Market Maker: Katarzyna Khan #### 5363, 7600, 496 #### [facility] [address], [address] [place] [address] Market Maker: Casey Chi MD ALT [Catalytic activity/Vol] 18 U/L Normal 9-46 [facility] Comment on above: Performed By: #### 1 759, 82481 #### [facility] [place] [address] Market Maker: Katarzyna Khan #### 5363, 7600, 496 #### [facility] [address], [address] [place] [address] Market Maker: Casey Chi MD AST [Catalytic activity/Vol] 18 U/L Normal 10-35 [facility] Comment on above: Performed By: #### 1 759, 34968 #### [facility] [address] [place] [address] Market Maker: Katarzyna Khan #### 5363, 7600, 496 #### [facility] [address], [address] [place] [address] Market Maker: Casey Chi MD Bilirubin [Mass/Vol] 0.6 mg/dL Normal 0.2-1.2 [facility] Comment on above: Performed By: #### 1 759, 83506 #### [facility]-[address] [address] Market Maker: Katarzyna Khan #### 5363, 7600, 496 #### [facility] [address], [address] [place] [address] Market Maker: Casey Chi MD BUN/CREATININE RATIO SEE NOTE: Normal 6-22 [facility] Comment on above: Result Comment: Not Reported: BUN and Creatinine are within reference range. Performed By: #### 1 759, 74067 #### [facility] [address] [place] [address] Market Maker: Katarzyna Khan #### 5363, 7600, 496 #### [facility] [address], [address] [place] [address] Market Maker: Casey Chi MD Calcium [Mass/Vol] 9.2 mg/dL Normal 8.6-10.3 [facility] Comment on above: Performed By: #### 1 759, 98669 #### [facility] [address] [place] [address] Market Maker: Katarzyna Khan #### 5363, 7600, 496 #### [facility] [address], [address] [place] [address] Market Maker: Casey Chi MD Chloride [Moles/Vol] 105 mmol/L Normal 98-110 [facility] Comment on above: Performed By: #### 1 759, 23146 #### [facility] [address] [place] [address] Market Maker: Katarzyna Khan #### 5363, 7430, 496 #### [facility] [address], [address] [place] [address] Market Maker: Casey Chi MD CO2 [Moles/Vol] 26 mmol/L Normal 20-32 [facility] Comment on above: Performed By: #### 1 759, 97579 #### [facility] [address] [place], [place] [address] Market Maker: Katarzyna Khan #### 5363, 7600, 496 #### [facility] [place] [address] Market Maker: Casey Chi MD Creatinine [Mass/Vol] 0.82 mg/dL Normal 0.70-1.28 [facility] Comment on above: Performed By: #### 1 759, 34572 #### [facility] [address] [place] [address] Market Maker: Katarzyna Khan #### 5363, 8350, 496 #### [facility] [place] [address] Market Maker: Casey Chi MD GFR/1.73 sq M.predicted among non-blacks MDRD (S/P/Bld) [Vol rate/Area] 94 mL/min/{1.73_m2} Normal > OR = 60 [facility] Comment on above: Performed By: #### 1 759, 66950 #### [facility] [address] [place] [address] Market Maker: Katarzyna Khan #### 5363, 7600, 496 #### [facility] [address], [address] [place] [address] Market Maker: Casey Chi MD Globulin (S) [Mass/Vol] 2.6 g/dL Normal 1.9-3.7 [facility] Comment on above: Performed By: #### 1 759, 15060 #### [facility] [address] Market Maker: Katarzyna Khan #### 5363, 7600, 496 #### [facility] [address], [address] [place] [address] Market Maker: Casey Chi MD Glucose [Mass/Vol] 106 mg/dL High 65-99 [facility] Comment on above: Result Comment: Fasting reference interval For someone without known diabetes, a glucose value between 100 and 125 mg/dL is consistent with prediabetes and should be confirmed with a follow-up test. Performed By: #### 1 759, 98082 #### [facility] [address] Market Maker: Katarzyna Khan #### 5363, 7600, 496 #### [facility] [address], [address] [place] [address] Market Maker: Casey Chi MD Potassium [Moles/Vol] 4.1 mmol/L Normal 3.5-5.3 [facility] Comment on above: Performed By: #### 1 759, 29577 #### [facility] [address] Market Maker: Katarzyna Khan #### 5363, 7600, 496 #### [facility] [address], [address] [place] [address] Market Maker: Casey Chi MD Protein [Mass/Vol] 6.5 g/dL Normal 6.1-8.1 [facility] Comment on above: Performed By: #### 1 759, 05691 #### [facility] [address] [place] [address] Market Maker: Katarzyna Khan #### 5363, 7600, 496 #### [facility] [address], [address] [place] [address] Market Maker: Casey Chi MD Sodium [Moles/Vol] 139 mmol/L Normal 135-146 [facility] Comment on above: Performed By: #### 1 759, 53788 #### [facility] [address] Market Maker: Katarzyna Khan #### 5363, 7600, 496 #### [facility] [address], [address] [place] [address] Market Maker: Casey Chi MD Urea nitrogen [Mass/Vol] 16 mg/dL Normal 7-25 [facility] Comment on above: Performed By: #### 1 759, 18271 #### [facility] [address] Market Maker: Katarzyna Khan #### 5363, 7600, 496 #### [facility] [address], [address] [place] [address] Market Maker: Casey Chi MD HEMOGLOBIN A1con 06-15-2024 HEMOGLOBIN [...] diagnosis of diabetes in children. According to [place] [employer] (ADA) guidelines, hemoglobin A1c <7.0% represents optimal control in non- diabetic patients. Different metrics may apply to specific patient populations. Standards of Medical Care in Diabetes(ADA). Performed By: #### 1 759, 25718 #### [facility] [place] [address] Market Maker: Katarzyna Khan #### 5363, 7600, 496 #### [facility] [address], [address] [place] [address] Market Maker: Casey Chi MD LIPID PANEL, [place] [address] Cholesterol [Mass/Vol] 172 mg/dL Normal <200 [facility] Comment on above: Order Comment: FASTI NG:YES FASTING: YES Performed By: #### 1 759, 44517 #### [facility] [address] [place] [address] Market Maker: Katarzyna Khan #### 5363, 7600, 496 #### [facility] [address], [address] [place] [address] Market Maker: Casey Chi MD Cholesterol in HDL [Mass/Vol] 32 mg/dL Low > OR = 40 [facility] Comment on above: Order Comment: FASTI NG:YES FASTING: YES Performed By: #### 1 759, 39351 #### [facility] [address] [place] [address] Market Maker: Katarzyna Khan #### 5363, 7600, 496 #### [facility] [address], [address] [place] [address] Market Maker: Casey Chi MD Cholesterol in LDL [Mass/Vol] [...] LDL-C. Humberto SS et al. LULU. 2013;310(19): 0482-0293 (http://education.Backup Circle.Ufora/faq/ZXJ095) Performed By: #### 1 759, 15778 #### [facility] [address] [place], [place] [address] Market Maker: Katarzyna Khan #### 5363, 7600, 496 #### [facility] [address], [address] [place] [address] Market Maker: Casey Chi MD Cholesterol.total/ Cholesterol in HDL [Mass ratio] 5.4 {ratio} High <5.0 [facility] Comment on above: Order Comment: FASTI NG:YES FASTING: YES Performed By: #### 1 759, 33423 #### [facility] [address] [place] [address] Market Maker: Katarzyna Khan #### 5363, 7600, 496 #### [facility] [address], [address] [place] [address] Market Maker: Casey Chi MD NON HDL CHOLESTEROL 140 mg/dL (calc) High <130 [facility] Comment on above: Order Comment: FASTI NG:YES FASTING: YES Result Comment: For patients with diabetes plus 1 major ASCVD risk factor, treating to a non-HDL-C goal of <100 mg/dL (LDL-C of <70 mg/dL) is considered a therapeutic option. Performed By: #### 1 759, 95370 #### [facility] [address] [place] [address] Market Maker: Katarzyna Khan #### 5363, 7600, 496 #### [facility] [address], [address] [place] [address] Market Maker: Casey Chi MD Triglyceride [Mass/Vol] 299 mg/dL High <150 [facility] Comment on above: Order Comment: FASTI NG:YES FASTING: YES Result Comment: If a non-fasting specimen was collected, consider repeat triglyceride testing on a fasting specimen if clinically indicated. Fabiola et al. J. of Clin. Lipidol. 2015;9:129-169. Performed By: #### 1 759, 42690 #### [facility] [address] [place] [address] Market Maker: Katarzyna Khan #### 5363, 7600, 496 #### [employer] [facility] [address], [address] [place] [address] Market Maker: Casey Chi MD PSA, TOTALon 06-15-2024 PSA, TOTAL 0.43 ng/mL Normal < OR = 4.00 [facility] Comment on above: Result Comment: The total PSA value from this assay system is standardized against the WHO standard. The test result will be approximately 20% lower when compared to the equimolar-standardized total PSA ([place]). Comparison of serial PSA results should be interpreted with this fact in mind. This test was performed using the Siemens chemiluminescent method. Values obtained from different assay methods cannot be used interchangeably. PSA levels, regardless of value, should not be interpreted as absolute evidence of the presence or absence of disease. Performed By: #### 1 759, 14174 #### [facility] [address] [place] [address] Market Maker: Katarzyna Khan #### 5363, 7600, 496 #### [employer] [facility] [address], [address] [place] [address] Market Maker: Casey Chi MD XR Hip - left [...] Unremarkable left total hip arthroplasty. Jose Hernández LEAD ADVISOR-CATERING STAFF MEMBER [facility] I-Stand [facility] Radiology Study observation (narrative) [facility] XR HIP LT 2-3 VIEWS W OR [...] Delcid MD on 05/03/2024 10:26 AM Normal [facility] XR Hip - left 3 Viewson 03-28 Imaging Result: April 06, 2024 x-rays AP and lateral of the left hip demonstrate joint space collapse with subchondral sclerosis and osteophyte formation consistent with arthritis. Impression: Arthritis of the left hip Amauri Blair D.O. [facility] See[employer] e XR Hip - left 3 Viewson 03-28 Radiology Study observation (narrative) [facility] BASIC METABOLIC PANLon 04-04 Anion gap [Moles/Vol] 9 mmol/L Normal 5-15 [facility] Comment on above: Performed By: #### C BCA, BMP #### [facility] ([id number]) [address], [address] [place] [address] Calcium [Mass/Vol] 9.8 mg/dL Normal 8.5-10.5 [facility] Comment on above: Performed By: #### C BCA, BMP #### [facility] ([id number]) [address], [address] [place] [address] Chloride [Moles/Vol] 103 mmol/L Normal 98-109 [facility] Comment on above: Performed By: #### C BCA, BMP #### [facility] ([id number]) [address], [address] [place] [address] CO2 [Moles/Vol] 27 mmol/L Normal 22-32 [facility] Comment on above: Performed By: #### C BCA, BMP #### [facility] ([id number]) [address] [place] [address] Creatinine [Mass/Vol] 0.89 mg/dL Normal 0.60-1.30 [facility] Comment on above: Result Comment: METH OD TRACEABLE TO IDMS STANDARD Performed By: #### C BCA, BMP #### [facility] ([id number]) [address], [address] [place] [address] eGFR (CKD-EPI) NON-RACE DEPENDENT >90 Normal >59 [facility] Comment on above: Result Comment: Reported eGFR is based on the CKD-EPI 2020 equation that does not use a race coefficient. Performed By: #### C BCA, BMP #### [facility] ([id number]) [address], [address] [place] [address] Glucose [Mass/Vol] 101 mg/dL High 65-99 [facility] Comment on above: Performed By: #### C BCA, BMP #### [facility] ([id number]) [address], [address] [place] [address] Potassium [Moles/Vol] 4.1 mmol/L Normal 3.5-5.0 [facility] Comment on above: Performed By: #### C BCA, BMP #### [facility] ([id number]) [address], [address] [place] [address] Sodium [Moles/Vol] 139 mmol/L Normal 134-146 [facility] Comment on above: Performed By: #### C BCA, BMP #### [facility] ([id number]) [address], [address] [place] [address] Urea nitrogen [Mass/Vol] 19 mg/dL Normal 5-27 [facility] Comment on above: Performed By: #### C BCA, BMP #### [facility] ([id number]) [address] [place] [address] Basic Metabolic Panelon 10-0 Anion gap [Moles/Vol] [...] Hospital Comment on above: METHOD TRACEABLE TO IDNC STANDARD eGFR (CKD-EPI)non-race dependent - PINF [facility] Comment on above: Reported eGFR is based on the CKD-EPI 2020 equation that does not use a race coefficient. Glucose [Mass/Vol] 101 mg/dL High 65 - 99 mg/dL [facility] Interpretation and review of laboratory results Abnormal [facility] Potassium [Moles/Vol] 4.1 mmol/L 3.5 - 5.0 mmol/L [facility] Sodium [Moles/Vol] 139 mmol/L 134 - 146 mmol/L [facility] Urea nitrogen [Mass/Vol] 19 mg/dL 5 - 27 mg/dL [facility] CBC AND AUTO DIFFon 04-04-20 ABSOLUTE BASOPHIL 0.0 X10E9/L Normal 0.0-0.2 [facility] Comment on above: Performed By: #### C BCA, BMP #### [facility] ([id number]) [address], [address] [place] [address] ABSOLUTE NEUTROPHIL 4.6 X10E9/L Normal 1.5-6.6 [facility] Comment on above: Performed By: #### C BCA, BMP #### [facility] ([id number]) [address], [address] [place] [address] Basophils/100 WBC (Bld) 0.4 % Normal [facility] Comment on above: Performed By: #### C BCA, BMP #### [facility] ([id number]) [address], [address] [place] [address] Eosinophils (Bld) [#/Vol] 0.1 10*3/uL Normal 0.0-0.4 [facility] Comment on above: Performed By: #### Manuela MAGALLON, BMP #### [facility] ([id number]) [address], [address] [place] [address] Eosinophils/100 WBC (Bld) 1.8 % Normal [facility] Comment on above: Performed By: #### Manuela MAGALLON, BMP #### [facility] ([id number]) [address], [address] [place] [address] Erythrocyte distribution width (RBC) [Ratio] 15.1 % High 11.5-15.0 [facility] Comment on above: Performed By: #### Manuela MAGALLON, BMP #### [facility] ([id number]) [address] [place] [address] Hematocrit (Bld) [Volume fraction] 36.7 % Low 39-49 [facility] Comment on above: Performed By: #### Manuela MAGALLON, BMP #### [facility] ([id number]) [address] [place] [address] Hemoglobin (Bld) [Mass/Vol] 12.5 g/dL Low 13.0-17.0 [facility] Comment on above: Performed By: #### C SHERITA, BMP #### [facility] ([id number]) [address], [address] [place] [address] Lymphocytes (Bld) [#/Vol] 1.4 10*3/uL Normal 1.0-3.5 [facility] Comment on above: Performed By: #### Manuela MAGALLON, BMP #### [facility] ([id number]) [address], [address] [place] [address] Lymphocytes/100 WBC (Bld) 21.3 % Normal [facility] Comment on above: Performed By: #### Manuela MAGALLON, BMP #### [facility] ([id number]) [address] [place] [address] MCH (RBC) [Entitic mass] 30.1 pg Normal 27-34 [facility] Comment on above: Performed By: #### C SHERITA, BMP #### [facility] ([id number]) [address] [place] [address] MCHC (RBC) [Mass/Vol] 34.0 g/dL Normal 32-36 [facility] Comment on above: Performed By: #### C SHERITA, BMP #### [facility] ([id number]) [address] [place] [address] MCV (RBC) [Entitic vol] 89 fL Normal 80-100 [facility] Comment on above: Performed By: #### C SHERITA, BMP #### [facility] ([id number]) [address] [place] [address] Monocytes (Bld) [#/Vol] 0.6 10*3/uL Normal 0-0.9 [facility] Comment on above: Performed By: #### C SHERITA, BMP #### [facility] ([id number]) [address] [place] [address] Monocytes/100 WBC (Bld) 8.6 % Normal [facility] Comment on above: Performed By: #### Manuela MAGALLON, BMP #### [facility] ([id number]) [address] [place] [address] Neutrophils/100 WBC (Bld) 67.9 % Normal [facility] Comment on above: Performed By: #### C SHERITA, BMP #### [facility] ([id number]) [address], [address] [place] [address] Platelet mean volume (Bld) [Entitic vol] 8.0 fL Normal 7-12 [facility] Comment on above: Performed By: #### C BCA, BMP #### [facility] ([id number]) [address], [address] [place] [address] Platelets (Bld) [#/Vol] 205 10*3/uL Normal 150-450 [facility] Comment on above: Performed By: #### Manuela MAGALLON, BMP #### [facility] ([id number]) [address], [address] [place] [address] RBC COUNT 4.14 X10E12/L Normal 4.10-5.70 [facility] Comment on above: Performed By: #### Manuela MAGALLON, BMP #### [facility] ([id number]) [address], [address] [place] [address] WBC (Bld) [#/Vol] 6.7 10*3/uL Normal 4.0-11.0 [facility] Comment on above: Performed By: #### Manuela MAGALLON, BMP #### [facility] ([id number]) [address], [address] [place] [address] CBC auto differentialon 10-0 -2023 Basophils (Bld) [#/Vol] 0.0 10*3/uL [facility] Basophils/100 WBC (Bld) 0.4 % [facility] Eosinophils (Bld) [#/Vol] 0.1 10*3/uL [facility] Eosinophils/100 WBC (Bld) 1.8 % [facility] Erythrocyte distribution width (RBC) [Ratio] 15.1 % High 11.5 - 15.0 % [facility] Hematocrit (Bld) [Volume fraction] 36.7 % Low 39 - 49 % [facility] Hemoglobin (Bld) [Mass/Vol] 12.5 g/dL Low 13.0 - 17.0 g/dL [facility] Interpretation and review of laboratory results Abnormal [facility] Lymphocytes (Bld) [#/Vol] 1.4 10*3/uL [facility] Lymphocytes/100 WBC (Bld) 21.3 % [facility] MCH (RBC) [Entitic mass] 30.1 pg 27 - 34 pg [facility] MCHC (RBC) [Mass/Vol] 34.0 g/dL 32 - 36 g/dL [facility] MCV (RBC) [Entitic vol] 89 fL 80 - 100 fL [facility] Monocytes (Bld) [#/Vol] 0.6 10*3/uL [facility] Monocytes/100 WBC (Bld) 8.6 % [facility] Neutrophils (Bld) [#/Vol] 4.6 10*3/uL [facility] Neutrophils/100 WBC (Bld) 67.9 % [facility] Platelet mean volume (Bld) [Entitic vol] 8.0 fL 7 - 12 fL [facility] Platelets (Bld) [#/Vol] 205 10*3/uL [facility] RBC (Bld) [#/Vol] 4.14 10*6/uL [facility] WBC corrected for nucl RBC Auto (Bld) [#/Vol] 6.7 [facility] ECG 12 leadon 04-04-2024 [facility] Ambulatory Visit Summaryon 0 02-07-2024 [...] Strength 500 mg oral tablet) acetaminophen-hydroco done (Enfield 325 mg-5 mg oral tablet) ascorbic acid [...] [facility] [address], [place] [address]- Medications What How Much When Instructions Unchanged [...] if questions or concerns Unchanged acetaminophen-hydroco done (Enfield 325 mg-5 mg oral tablet) 1 Tablets [...] 50 ye (more content not included)... Normal [facility] Urology Office/Clinic Noteon 02-07-2024 Urology Office/Clinic Note [...] [facility] [address], [place] [address]- Additional Instructions: 1 yr Patient Education Benign [...] tablet, 200 mg= 1 tab(s), Oral, q24hr Enfield 325 mg-5 mg oral tablet, 1 tab(s), [...] 1 c (more content not included)... Normal [facility] Comment on above: Result Comment: Elec tronically [...] right total hip replacement Amauri Blair D.O. [facility] Radiology Study observation (narrative) [facility] XR Hip - right 3 ViewsOrdere d By: Charissa Blair on 08-09-2023 [facility] SeeJaycar e Work Phone: ABO Rh [place] 07-07-2023 [...] Delcid MD on 07/07/2023 11:06 AM Normal [facility] XR Pelvis and Hip - right 2 [...] Price Delcid MD on 07/07/2023 11:06 AM [facility] Radiology Study observation (narrative) [facility] XR Pelvis and Hip - right 2 ViewsOrdered By: Price Delcid on 07-07-2023 [employer] Work Phone: CNOVon 04-13-2023 CNOV Office Visit (SPSLU ) LAWSON VELA ([id number]) 1955 M DEF Date Time Provider Department 04/13/23 11:00 AM LAILA LEWIS [facility] During your visit today, we recorded [...] a week. 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 [facility] XR lumbar spine 6V w bending on 12-17-2022 XR lumbar spine 6V w bending [place] [address] XRay Report Signed Patient: Lawson Vela MR#: [id number] : 1955 Acct:[id number] Age/Sex: 67 / M ADM Date: 12/17/22 Loc: XD Room: Type: [facility] Attending Dr: Erica MILLER Copies to: ANGELA [...] Cobian Jr., D.O.12/17/2022 3:16 PM Dictation Location: [facility]--15 Transcribed By: [facility] 12/17/22 1516 Dictated By: Lenny Cobian Jr DO 12/17/22 1514 Signed By: 12/17/22 1516 Normal [facility] XR lumbar spine 6V w bending [facility] [employer] Other XR lumbar spine 6V w bending [facility] [employer] Other XR lumbar spine 6V w bending [address] [place] [address] [facility] [employer] Other XR lumbar spine 6V w bending [place] [id number] [employer] Other XR lumbar spine 6V w bending XRay Report [facility] [employer] Other XR lumbar spine 6V w bending Signed [employer] Other XR lumbar spine 6V w bending Patient: Lawson Vela MR#: [id number] [employer] Other XR lumbar spine 6V w bending : 1955 Acct:[id number] [employer] Other XR lumbar spine 6V w bending Age/Sex: 67 / M ADM Date: 12/17/22 [employer] Other XR lumbar spine 6V w bending Loc: XD Room: Type: [facility] [employer] Other XR lumbar spine 6V w bending Attending Dr: Erica Xiong ASSOCIATE PROFESSOR OF FORESTRY-C [facility] Other XR lumbar spine 6V w bending Copies to: Erica Xiong ASSOCIATE PROFESSOR [employer] Other XR lumbar spine 6V w bending Ordering Provider: Erica Xiong ASSOCIATE PROFESSOR [employer] Other XR lumbar spine 6V w bending Date of Service: 12/17/22 [employer] Other XR lumbar spine 6V w bending XR/XR lumbar spine 6V w bending: M54.16 [employer] Other XR lumbar spine 6V w bending LUMBAR SPINE - 6 views [employer] Other XR lumbar spine 6V w bending CLINICAL HISTORY: Right leg pain and numbness that radiates to toes [facility] Other XR lumbar spine 6V w bending COMPARISON: None [facility] Other XR lumbar spine 6V w bending FINDINGS: Vertebral body heights appear maintained. Diffuse endplate and facet joint degenerative [employer] [facility] Other XR lumbar spine 6V w bending changes. Mild diffuse disc space narrowing with relative sparing of L5-S1. No pathological motion [employer] Other XR lumbar spine 6V w bending on flexion or extension views. Limited sidebending. [employer] Other XR lumbar spine 6V w bending XR/XR lumbar spine 6V w bending [facility] Other XR lumbar spine 6V w bending IMPRESSION: [facility] [employer] Other XR lumbar spine 6V w bending DEGENERATIVE CHANGES OF THE LUMBAR SPINE WITH MILD DIFFUSE DISC SPACE NARROWING WITH RELATIVE [employer] Other XR lumbar spine 6V w bending SPARING OF L5-S1. [employer] Other XR lumbar spine 6V w bending Impression dictated by: Lenny Cobian Jr. DFabioOFabio12/17/2022 3:16 PM [facility] Other XR lumbar spine 6V w bending Dictation Location: [place] [address] [facility] [employer] Other XR lumbar spine 6V w bending Transcribed By: PWS 12/17/22 2580 [facility] Other XR lumbar spine 6V w bending Dictated By: Lenny Cobian Jr, DO 12/17/22 5589 [employer] Other XR lumbar spine 6V w bending Signed By: [employer] Other XR lumbar spine 6V w bending 12/17/22 2599 [facility] Other XR HIPS TRENT 3_4V WO PELVISon [...] by: DEVIN KNAPP Date: 2022-11-13 13:07 Normal [facility] MRI Lumbar Spine w/oon 05-01 MRI [...] by YASMANY ARAYA on 05/01/2022 1217 Normal [facility] XR Orbits for MRIon 04-27-20 22 XR Orbits for MRI CLINICAL HISTORY: Prescreening for MRI. COMPARISON: None. RESULT: No radiopaque foreign bodies. No acute osseous findings. IMPRESSION: No radiopaque foreign bodies. Report reported and signed by Javad Dickens on 04/27/2022 1540 Normal [facility] XR Spine Lumbar 4+ Views*on [...] by Lenny Cook on 04/06/2022 1106 Normal [facility] Specialist Vital Signs Date Time Vital Sign Value Performing Clinician Facility 11-29-2024 11:33-0400 Body height 185.4 cm Alma Hemmer PA Work Phone: [facility] 11-29-2024 11:33-0400 Body mass index (BMI) [Ratio] 38.39 kg/m2 Alma Hemmer PA Work Phone: [facility] 11-29-2024 11:33-0400 Body weight 132 kg Alma Hemmer PA Work Phone: [facility] 11-29-2024 11:33-0400 Diastolic blood pressure 80 mm[Hg] Alma Hemmer PA Work Phone: [facility] 11-29-2024 11:33-0400 Heart rate 81 /min Alma Hemmer PA Work Phone: [facility] 11-29-2024 11:33-0400 Respiratory rate 16 /min Alma Hemmer PA Work Phone: [facility] 11-29-2024 11:33-0400 SaO2% (BldA) [Mass fraction] 96 % Alma Hemmer PA Work Phone: [facility] 11-29-2024 11:33-0400 Systolic blood pressure 136 mm[Hg] Alma Hemmer PA Work Phone: [facility] 10-25-2024 10:57-0400 Body height 185.4 cm Javad Donato MD Work Phone: [facility] 10-25-2024 10:57-0400 Body mass index (BMI) [Ratio] 38.52 kg/m2 Javad Donato MD Work Phone: [facility] 10-25-2024 10:57-0400 Body weight 132.45 kg Javad Donato MD Work Phone: [facility] 10-25-2024 10:57-0400 Diastolic blood pressure 76 mm[Hg] Javad Donato MD Work Phone: [facility] 10-25-2024 10:57-0400 Heart rate 82 /min Javad Donato MD Work Phone: [facility] 10-25-2024 10:57-0400 SaO2% (BldA) [Mass fraction] 95 % Javad Donato MD Work Phone: [facility] 10-25-2024 10:57-0400 Systolic blood pressure 130 mm[Hg] Javad Donato MD Work Phone: [facility] 07-27-2024 10:26-0500 Body height 185.4 cm Alma Hemmer PA Work Phone: [facility] 07-27-2024 10:26-0500 Body mass index (BMI) [Ratio] 38.34 kg/m2 Alma Hemmer PA Work Phone: [facility] 07-27-2024 10:26-0500 Body temperature 97.5 [degF] Alma Hemmer PA Work Phone: [facility] 07-27-2024 10:26-0500 Body weight 131.81 kg Alma Hemmer PA Work Phone: [facility] 07-27-2024 10:26-0500 Diastolic blood pressure 74 mm[Hg] Alma Hemmer PA Work Phone: [facility] 07-27-2024 10:26-0500 Heart rate 88 /min Alma Hemmer PA Work Phone: [facility] 07-27-2024 10:26-0500 Respiratory rate 18 /min Alma Hemmer PA Work Phone: [facility] 07-27-2024 10:26-0500 SaO2% (BldA) [Mass fraction] 95 % Alma Hemmer PA Work Phone: [facility] 07-27-2024 10:26-0500 Systolic blood pressure 128 mm[Hg] Alma Hemmer PA Work Phone: [facility] 06-14-2024 09:36-0500 Body height 185.4 cm Javad Donato MD Work Phone: [facility] 06-14-2024 09:36-0500 Body mass index (BMI) [Ratio] 37.6 kg/m2 Javad Donato MD Work Phone: [facility] 06-14-2024 09:36-0500 Body weight 129.28 kg Javad Donato MD Work Phone: [facility] 06-14-2024 09:36-0500 Diastolic blood pressure 70 mm[Hg] Javad Donato MD Work Phone: [facility] 06-14-2024 09:36-0500 Heart rate 98 /min Javad Donato MD Work Phone: [facility] 06-14-2024 09:36-0500 SaO2% (BldA) [Mass fraction] 97 % Javad Donato MD Work Phone: [facility] 06-14-2024 09:36-0500 Systolic blood pressure 126 mm[Hg] Javad Donato MD Work Phone: [facility] 04-17-2024 13:49-0400 Body height 185.4 cm Javad Donato MD Work Phone: [facility] 04-17-2024 13:49-0400 Body mass index (BMI) [Ratio] 37.6 kg/m2 Javad Donato MD Work Phone: [facility] 04-17-2024 13:49-0400 Body weight 129.28 kg Javad Donato MD Work Phone: [facility] 04-17-2024 13:49-0400 Diastolic blood pressure 68 mm[Hg] Javad Donato MD Work Phone: [facility] 04-17-2024 13:49-0400 Heart rate 96 /min Javad Donato MD Work Phone: [facility] 04-17-2024 13:49-0400 SaO2% (BldA) [Mass fraction] 98 % Javad Donato MD Work Phone: [facility] 04-17-2024 13:49-0400 Systolic blood pressure 128 mm[Hg] Javad Donato MD Work Phone: [facility] 04-06-2024 11:31-0400 Body height 185.4 cm Charissa Blair DO Work Phone: [facility] 04-06-2024 11:31-0400 Body mass index (BMI) [Ratio] 38.16 kg/m2 Charissa Blair DO Work Phone: [facility] 04-06-2024 11:31-0400 Body weight 131.18 kg Charissa Blair DO Work Phone: [facility] 04-04-2024 09:12-0400 Body height 185.4 cm P[facility] 1 [facility] 04-04-2024 09:12-0400 Body mass index (BMI) [Ratio] 37.34 kg/m2 [facility] 1 [facility] 04-04-2024 09:12-0400 Body weight 128.37 kg Pmh 1 [facility] 02-17-2024 10:18-0400 Body height 185.4 cm Alma Hemmer PA Work Phone: [facility] 02-17-2024 10:18-0400 Body mass index (BMI) [Ratio] 38.26 kg/m2 Alma Hemmer PA Work Phone: [facility] 02-17-2024 10:18-0400 Body weight 131.54 kg Alma Hemmer PA Work Phone: [facility] 02-17-2024 10:18-0400 Diastolic blood pressure 78 mm[Hg] Alma Hemmer PA Work Phone: [facility] 02-17-2024 10:18-0400 Heart rate 82 /min Alma Hemmer PA Work Phone: [facility] 02-17-2024 10:18-0400 SaO2% (BldA) [Mass fraction] 96 % Alma Hemmer PA Work Phone: [facility] 02-17-2024 10:18-0400 Systolic blood pressure 136 mm[Hg] Alma HERNANDEZ Work Phone: [facility] 02-07-2024 10:23-0400 Blood Pressure Location Mac SANTIAGO [facility] 02-07-2024 10:23-0400 Body temperature 98.6 [degF] Mac SANTIAGO [facility] 02-07-2024 10:23-0400 Diastolic blood pressure 82 mm[Hg] Mac SANTIAGO [facility] 02-07-2024 10:23-0400 Heart rate 75 /min Macmichelle SANTIAGO [facility] 02-07-2024 10:23-0400 Respiratory rate 16 /min Macmichelle SANTIAGO [facility] 02-07-2024 10:23-0400 Systolic blood pressure 132 mm[Hg] Mac SANTIAGO [facility] 07-07-2023 12:48-0500 Diastolic blood pressure 85 mm[Hg] [facility] DO [facility] 07-07-2023 12:48-0500 Heart rate 88 /min Charissa Blair DO [facility] 07-07-2023 12:48-0500 Respiratory rate 22 /min Charissa Blair DO [facility] 07-07-2023 12:48-0500 SaO2% (BldA) [Mass fraction] 90 % Charissa Blair DO Work Phone: [facility] 07-07-2023 12:48-0500 Systolic blood pressure 134 mm[Hg] Charissa Blair DO Work Phone: [facility] 07-07-2023 10:35-0500 Body temperature 97.3 [degF] Charissa Blair DO Work Phone: [facility] 07-07-2023 06:25-0500 Body height 185.4 cm Charissa Blair DO Work Phone: [facility] 07-07-2023 06:25-0500 Body mass index (BMI) [Ratio] 36.41 kg/m2 Charissa Blair DO Work Phone: [facility] 07-07-2023 06:25-0500 Body weight 125.19 kg Charissa Blair DO Work Phone: [facility] 12-17-2022 13:00-0400 Body height 182.88 cm Erica Xion[employer] Other [facility] Other 12-17-2022 13:00-0400 Body mass index (BMI) [Ratio] 38.51 kg/m2 Erica [employer] Other [employer] Other 12-17-2022 13:00-0400 Body weight 128.82 kg Erica Xiong Other [facility] Other 12-17-2022 13:00-0400 Diastolic blood pressure 88 mm[Hg] Erica Xiong Other [facility] Other 12-17-2022 13:00-0400 Systolic blood pressure 146 mm[Hg] Erica Xiong Other [facility] Other 06-01-2022 11:29-0500 Blood Pressure Location Mac SANTIAGO [facility] 06-01-2022 11:29-0500 Diastolic blood pressure 76 mm[Hg] Mac SANTIAGO [facility] 06-01-2022 11:29-0500 Heart rate 70 /min Mac SANTIAGO [facility] 06-01-2022 11:29-0500 Respiratory rate 16 /min Mac SANTIAGO [facility] 06-01-2022 11:29-0500 Systolic blood pressure 128 mm[Hg] Mac SANTIAGO [facility] 02-16-2022 10:28-0400 Blood Pressure Location Mac SANTIAGO [facility] 02-16-2022 10:28-0400 Diastolic blood pressure 84 mm[Hg] Mac SANTIAGO [facility] 02-16-2022 10:28-0400 Heart rate 68 /min Mac SANTIAGO [facility] 02-16-2022 10:28-0400 Respiratory rate 16 /min Mac SANTIAGO [facility] 02-16-2022 10:28-0400 Systolic blood pressure 136 mm[Hg] Mac SANTIAGO [facility] Encounters Encounter Date Encounter Type Care Provider Facility Start: 02-08-2026 ambulatory Mac Lan ty:[facility] [place] Start: 02-19-2025 End: 02-19-2025 ambulatory Lidia Fletcher MD Facility:[facility] Start: 02-05-2025 End: 02-05-2025 ambulatory Mac SANTIAGO Facility: [facility] Start: 02-05-2025 End: 02-05-2025 Patient encounter procedure [facility] Start: 11-29-2024 End: 11-29-2024 Bamboo flowsheet Alma [...] 11-27-2024 End: 11-27-2024 ambulatory Lidia Fletcher MD Facility:[facility] Start: 11-06-2024 End: 11-06-2024 ambulatory Lidia Fletcher MD Facility:[facility] Start: 10-30-2024 End: 10-30-2024 Bamboo flowsheet Jose Hernández NP Work Phone: [facility] Start: 10-30-2024 End: 10-30-2024 Bamboo flowsheet Jose Hernández ASSOCIATE PROFESSOR OF FORESTRY Work Phone: [facility] Start: 10-30-2024 End: 10-30-2024 Office outpatient visit 15 minutes Jose Hernández ASSOCIATE PROFESSOR OF FORESTRY Work Phone: [facility] Comment on [...] 07-31-2024 End: 07-31-2024 Bamboo flowsheet Jose Hernández ASSOCIATE PROFESSOR OF FORESTRY Work Phone: [facility] Start: 07-31-2024 End: 07-31-2024 Bamboo flowsheet Jose Hernández ASSOCIATE PROFESSOR OF FORESTRY Work Phone: [facility] Start: 07-31-2024 End: 07-31-2024 Postop follow up visit related to original px Jose Hernández ASSOCIATE PROFESSOR OF FORESTRY Work Phone: [facility] Comment on [...] Start: 07-21-2024 End: 07-21-2024 ambulatory Jeanna Mendiola [employer]ATION [employer] Work Phone: [facility] Comment on above: Left hip pain (Prima ry Dx); S/P total left hip arthroplasty Start: 07-14-2024 End: 07-14-2024 ambulatory Jeanna Mendiola [employer]ATION [employer] TE[employer] Work Phone: [facility] Comment on above: Left hip pain (Prima ry Dx); S/P total left hip arthroplasty Start: 07-12-2024 End: 07-12-2024 Bamboo flowsheet Jeanna Mendiola AUTOMATION QTP TESTER Work Phone: [facility] Start: 07-12-2024 End: 07-12-2024 Bamboo flowsheet Jeanna Mendiola AUTOMATION [employer]TP TESTER Work Phone: [facility] Start: 07-12-2024 End: 07-12-2024 ambulatory Jeanna Mendiola AUTOMATION [employer] TE[employer] Work Phone: [facility] Comment on above: Left hip pain (Prima ry Dx); S/P total left hip arthroplasty Start: 07-07-2024 End: 07-07-2024 Bamboo flowsheet Jeanna Mendiola AUTOMATION QTP TESTER Work Phone: [facility] Start: 07-07-2024 End: 07-07-2024 Bamboo flowsheet Jeanna Mendiola AUTOMATION QTP TESTER Work Phone: [facility] Start: 07-07-2024 End: 07-07-2024 ambulatory Jeanna Mendiola AUTOMATION [employer]TP TESTER Work Phone: [facility] Comment on above: Left hip pain (Prima ry Dx); S/P total left hip arthroplasty Start: 07-06-2024 End: 07-06-2024 ambulatory YOSEF CHEEMA Not Available Start: 07-05-2024 End: 07-05-2024 ambulatory Jeanna Mendiola AUTOMATION QTP TESTER Work Phone: [facility] Comment on above: Left hip pain (Prima ry Dx); S/P total left hip arthroplasty Start: 07-03-2024 End: 07-03-2024 Bamboo flowsheet Jose Hernández ASSOCIATE PROFESSOR OF FORESTRY Work Phone: [facility] Start: 07-03-2024 End: 07-03-2024 Bamboo flowshector Hernández ASSOCIATE PROFESSOR OF FORESTRY Work Phone: [facility] Start: 07-03-2024 End: 07-03-2024 Postop follow up visit related to original px Jose Hernández ASSOCIATE PROFESSOR OF FORESTRY Work Phone: [facility] Comment on above: S/P total left hip a rthroplasty (Primary Dx) Start: 07-03-2024 End: 07-03-2024 ambulatory JOSE HERNÁNDEZ Not Available Start: 06-30-2024 End: 06-30-2024 Bamboo flowsheet Jeanna Maury AUTOMATION QTP TESTER Work Phone: [facility] Start: 06-30-2024 End: 06-30-2024 Bamboo flowsheet Jeannaluis Mendiola AUTOMATION QTP TESTER Work Phone: [facility] Start: 06-30-2024 End: 06-30-2024 ambulatory Jeanna Mendiola AUTOMATION [employer]TP TESTER Work Phone: [facility] Comment on above: Left hip pain (Prima ry Dx); S/P total left hip arthroplasty Start: 06-26-2024 End: 06-26-2024 Bamboo flowsheet Kailey Goldman AUTOMATION QTP TESTER [facility] Start: 06-26-2024 End: 06-26-2024 Bamboo flowsheet Kailey Goldman AUTOMATION QTP TE[employer] [facility] Start: 06-26-2024 End: 06-26-2024 ambulatory Kailey Goldman AUTOMATION [employer]TP TE[employer] [facility] Comment on above: Left [...] 06-12-2024 End: 06-12-2024 Bamboo flowsheet Jose Hernández ASSOCIATE PROFESSOR OF FORESTRY Work Phone: [facility] Start: 06-12-2024 End: 06-12-2024 Bamboo flowsheet Jose Hernández ASSOCIATE PROFESSOR OF FORESTRY Work Phone: [facility] Start: 06-12-2024 End: 06-12-2024 Postop follow up visit related to original px Jose Hernández NP Work Phone: [facility] Comment on above: S/P total left hip a rthroplasty (Primary Dx); Left hip pain Start: 06-12-2024 End: 06-12-2024 ambulatory JOSE HERNÁNDEZ Not Available Start: 05-16-2024 End: 05-16-2024 Bamboo flowsheet Charissa Blair DO Work Phone: [facility] Start: 05-16-2024 End: 05-16-2024 Bamboo flowsheet Charissa Blair DO Work Phone: [facility] Start: 05-16-2024 End: 05-16-2024 Postop follow up visit related to original px Charissa Blair DO Work Phone: [facility] Comment on above: S/P total left [...] Start: 05-03-2024 End: 05-03-2024 ambulatory CHARISSA BLAIR [facility] Start: 05-02-2024 End: 05-02-2024 Refill Jose Hernández [...] 04-06-2024 End: 04-06-2024 Bamboo flowsheet Jose Hernández ASSOCIATE PROFESSOR OF FORESTRY Work Phone: [facility] Start: 04-06-2024 End: 04-06-2024 Bamboo flowsheet Jose Hernández ASSOCIATE PROFESSOR OF FORESTRY Work Phone: [facility] Start: 04-06-2024 End: 04-06-2024 Office outpatient visit 40 minutes Charissa Blair DO Work Phone: [facility] Comment on above: Left hip pain; Arthritis of left hip Start: 04-06-2024 End: 04-06-2024 ambulatory CHARISSA BLARI Not Available Start: 04-04-2024 End: 04-04-2024 Patient encounter procedure [facility] Pre-Admission Testing 1 [facility] - Pre Admit Comment on above: Preop examination (P rimary Dx); Hypertension, unspecified type Start: 04-04-2024 End: 04-04-2024 Preprocedural examination done [facility] 1 [facility] Start: 04-04-2024 End: 04-04-2024 ambulatory CHARISSA Milton BLAIR [facility] Start: 03-15-2024 End: 03-15-2024 Telephone encounter Nagi Plata PT Work Phone: [facility] Start: 02-17-2024 End: 02-17-2024 Office outpatient visit 15 minutes Alma Mcclendon PA Work Phone: [facility] Comment on above: Acute pharyngitis, u nspecified etiology (Primary Dx) Start: 02-17-2024 End: 02-17-2024 ambulatory ALMA MCCLENDON Not Available Start: 02-07-2024 End: 02-07-2024 ambulatory Mac R PAMELA Facility:[facility] Start: 02-07-2024 End: 02-07-2024 Patient encounter procedure Mac SANTIAGO [facility] Start: 01-27-2024 End: 01-27-2024 ambulatory CHARISSA Milton ROSSY Not Available Start: 01-21-2024 End: 01-21-2024 ambulatory ALMA MCCLENDON Not Available Start: 12-16-2023 End: 12-16-2023 ambulatory CHARISSA Milton ROSSY Not Available Start: 12-13-2023 End: 12-13-2023 ambulatory JOSE HERNÁNDEZ Not Available Start: 08-09-2023 Bamboo flowsheet Jeanna Wrig ht AUTOMATION QTP TESTER Work Phone: [facility] Start: 08-09-2023 Bamboo flowsheet Jeanna Wrig ht AUTOMATION QTP TESTER Work Phone: [facility] Start: 08-09-2023 End: 08-09-2023 Postop follow up visit related to original px Jose Hernández ASSOCIATE PROFESSOR OF FORESTRY Work Phone: [facility] Comment on above: 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; Status post right hip replacement Start: 08-09-2023 End: 08-09-2023 ambulatory Jeannaluis Mendiola AUTOMATION QTP TESTER Work Phone: [facility] Comment on above: Right hip pain (Prim billie Dx); Status post total hip replacement, right; Arthritis of right hip Start: 08-06-2023 End: 08-06-2023 ambulatory Jeanna Mendiola AUTOMATION QTP TESTER Work Phone: [facility] Comment on above: Right hip pain (Prim billie Dx); Status post total hip replacement, right; Arthritis of right hip Start: 08-02-2023 Bamboo flowsheet Jeanna Wrig ht AUTOMATION QTP TESTER Work Phone: [facility] Start: 08-02-2023 Bamboo flowsheet Jeanna Wrig ht AUTOMATION QTP TESTER Work Phone: [facility] Start: 08-02-2023 End: 08-02-2023 ambulatory Jeanna Mendiola AUTOMATION QTP TESTER Work Phone: [facility] Comment on above: Right hip pain (Prim billie Dx); Status post total hip replacement, right; Arthritis of right hip Start: 07-29-2023 End: 07-29-2023 ambulatory Nagi Snow Narendra PT Work Phone: [facility] Comment on above: Right hip pain (Prim billie Dx); Status post total hip replacement, right Start: 07-08-2023 End: 07-08-2023 ambulatory DEVIN Gaona [facility] Start: 07-07-2023 End: 07-08-2023 ambulatory [facility] Start: 07-07-2023 End: 07-07-2023 ambulatory [facility] Start: 07-07-2023 End: 07-07-2023 Subsequent hospital visit by physician Charissa Blair DO Work Phone: [facility] - Surgery Start: 07-05-2023 End: 07-05-2023 ambulatory [facility] Start: 07-05-2023 Encounter for other preprocedural examination [facility] Start: 04-13-2023 End: 04-13-2023 ambulatory [facility] Start: 04-13-2023 End: 04-13-2023 Patient encounter procedure Laila Lewis PA-C Work Phone: [facility] [place] Comment on above: Spinal stenosis, lum bar region with neurogenic claudication (Primary Dx); Bilateral hip joint arthritis Start: 01-28-2023 Chart abstracting Camron Mix MD Work Phone: Neurology Start: 12-17-2022 End: 12-17-2022 Patient encounter procedure II Javad Donato Work Phone: [facility] Work Phone: Start: 12-17-2022 End: 12-17-2022 ambulatory II Javad Donato Work Phone: [facility] Work Phone: Start: 12-17-2022 Encounter for other specified special examinations Erica Xiong [facility] Start: 12-17-2022 Office outpatient ne w 45 minutes Erica Xiong [facility] Start: 11-24-2022 End: 11-25-2022 ambulatory NARENDRANATH LAKSHMIPATHY . Facility:[facility] Start: 11-13-2022 End: 11-14-2022 ambulatory NARENDRANATH LAKSHMIPATHY . Facility:[facility] Start: 11-10-2022 End: 11-11-2022 ambulatory NARENDRANATH LAKSHMIPATHY . Facility:[facility] Start: 10-08-2022 End: 10-09-2022 ambulatory NARENDRANATH LAKSHMIPATHY . Facility:[facility] Start: 09-10-2022 End: 09-11-[address] ANTIONE HAWTHORNE . Facility:[facility] Start: 08-13-2022 Encounter for preprocedural cardiovascular examination DR ANTIONE HAWTHORNE . [facility] Start: 08-11-2022 End: 08-11-[address] [...] procedure Mac SANTIAGO [facility] Start: 05-19-2022 End: 05-20-[address] ANTIONE HAWTHORNE . Facility:[facility] Start: 05-05-2022 End: 05-05-[address] ANTIONE HAWTHORNE . Facility:[facility] Start: 04-28-2022 End: 04-29-[address] ANTIONE HAWTHORNE . Facility:[facility] Start: 04-27-2022 End: 05-14-[address] JAVAD DONATO Facility:[facility] Start: 02-16-2022 End: 02-16-2022 Patient encounter procedure Mac SANTIAGO [facility] Procedures Date Procedure Procedure Detail Performing [...] tunnel syndro me (disorder) Mac SANTIAGO Colonoscopy aMc SANTIAGO Repair of joint of r ight hip Mac SANTIAGO Plan of Treatment Date Care Activity Detail Author Start: 05-18-2033 DTaP,Tdap and Td Vaccines (2 - Td or Tdap) DTaP,Tdap and Td Vaccines (2 - Td or Tdap) [facility] Start: 07-12-2027 Screening for malign ant neoplasm of colon [facility] Start: 06-14-2025 Medicare Annual Wellness (AWV) Medicare Annual Wellness (AWV) [facility] Start: 04-30-2025 End: 04-30-2025 Patient encounter procedure 04/30/2025 8:00 AM EST Office Visit [facility] [address] [place] [phone] Jose Hernández, ASSOCIATE PROFESSOR OF FORESTRY [address] [place] [address] [facility] Start: 04-26-2025 End: 04-26-2025 Patient encounter procedure 04/26/2025 9:00 AM EDT Office Visit [facility] [address] [facility] [address] [place] [address] Javad Donato MD [address] [facility] [address] [place] [address] [facility] Start: 04-04-2025 Adult BMI Screening Adult BMI Screen ing [facility] Start: 04-04-2025 Tobacco Screening Tobacco Screening [facility] Start: 11-29-2024 End: 11-29-2024 Patient encounter procedure [facility] Comment on above: Arrived Start: 10-30-2024 End: 10-30-2024 Patient encounter procedure [facility] Comment on above: Left hip pain Start: 10-25-2024 End: 10-25-2024 Patient encounter procedure 10/25/2024 10:45 AM EDT Office Visit [facility] [address] [place] [address] [place] [address] Javad Donato MD [address] [place] [address] [place] [address] Arrived [facility] Comment on above: Arrived Start: 10-23-2024 End: 10-23-2024 Patient encounter procedure 10/23/2024 10:00 AM EDT Office Visit [facility] [address] [place] [address] [place] [address] Javad Donato MD [address] [place] [address] [place] [address] [facility] Start: 07-31-2024 End: 07-31-2024 Patient encounter procedure [facility] Comment on above: Arrived Start: 07-27-2024 End: 07-27-2024 Patient encounter procedure 07/27/2024 10:30 AM EST Office Visit [facility] [address] [place] [address] [place] [address] Alma Mcclendon, PA [address] [place] [address] [place] [address] Arrived [facility] Comment on above: Arrived Start: 07-21-2024 End: 07-21-2024 ambulatory 07/21/2024 7:30 AM EST Treatment [facility] [address] [place] [phone] Jeanna Mendiola, AUTOMATION QTP TESTER [address] [place] [address] [facility] Start: 07-14-2024 End: 07-14-2024 ambulatory [facility] Start: 07-12-2024 End: 07-12-2024 ambulatory [facility] Comment on above: Arrived Start: 07-07-2024 End: 07-07-2024 ambulatory 07/07/2024 7:30 AM EST Treatment [facility] [address] [place] [phone] Jeanna Mendiola, AUTOMATION QTP TESTER [address] [place] [address] [facility] Start: 07-06-2024 End: 07-06-2024 Professional / ancillary services management 07/06/2024 8:00 AM EST Ancillary Procedure [facility] [address] [place] [id number] [facility] Start: 07-05-2024 End: 07-05-2024 ambulatory 07/05/2024 7:30 AM EST Treatment [facility] [address] [place] [phone] Jeanna Mendiola, AUTOMATION QTP TESTER [address] [place] [address] [facility] Start: 07-03-2024 End: 07-03-2024 Patient encounter procedure [facility] Comment on above: Arrived Start: 06-30-2024 End: 06-30-2024 ambulatory [facility] Comment on above: Arrived Start: 06-29-2024 End: 06-29-2024 ambulatory 06/29/2024 7:30 AM EST Treatment [facility] [address] [facility] [address] [place] [address] Kailey Goldman, AUTOMATION QTP TESTER [facility] Start: 06-26-2024 End: 06-26-2024 ambulatory [facility] Comment on above: Arrived Start: 06-22-2024 End: 06-22-2024 Professional / ancillary services management 06/22/2024 3:15 PM EST Ancillary Procedure [facility] [address] [place] [phone] [facility] Start: 06-20-2024 End: 06-20-2024 ambulatory 06/20/2024 7:00 AM EST Evaluation [facility] [address] [place] [phone] Nagi Plata, PT [address] [place] [address] [facility] Start: 06-14-2024 End: 06-14-2025 CBC panel - Blood by Automated count CBC Lab Routine Benign essential hypertension (CMS/HCC) IGT (impaired glucose tolerance) Atherosclerosis of aorta (CMS/HCC) Class 2 severe obesity with serious comorbidity and body mass index (BMI) of 37.0 to 37.9 in adult, unspecified obesity type (CMS/HCC) Expected: 06/14/2024 (Approximate), Expires: 06/14/2025 [facility] Comment on above: Expected: 06/14/2024 (Approximate), [...] type (CMS/HCC) Expected: 06/14/2024 (Approximate), Expires: 06/14/2025 [facility] Comment on above: Expected: 06/14/2024 (Approximate), Expires: 06/14/2025 Start: 06-14-2024 End: 06-14-2025 Hemoglobin A1c/Hemoglobin.total in Blood Hemoglobin A1c Lab Routine Benign essential hypertension (CMS/HCC) IGT (impaired glucose tolerance) Atherosclerosis of aorta (CMS/HCC) Class 2 severe obesity with serious comorbidity and body mass index (BMI) of 37.0 to 37.9 in adult, unspecified obesity type (CMS/HCC) Expected: 06/14/2024 (Approximate), Expires: 06/14/2025 [facility] Comment on above: Expected: 06/14/2024 (Approximate), Expires: 06/14/2025 Start: 06-14-2024 End: 06-14-2025 Lipid 1996 panel - Serum or Plasma Lipid panel Lab Routine Benign essential hypertension (CMS/HCC) IGT (impaired glucose tolerance) Atherosclerosis of aorta (CMS/HCC) Class 2 severe obesity with serious comorbidity and body mass index (BMI) of 37.0 to 37.9 in adult, unspecified obesity type (CMS/HCC) Expected: 06/14/2024 (Approximate), Expires: 06/14/2025 [facility] Comment on above: Expected: 06/14/2024 (Approximate), Expires: 06/14/2025 Start: 06-14-2024 End: 06-14-2025 Prostate specific Ag [Mass/volume] in Serum or Plasma PSA Lab Routine Screening for prostate cancer Expected: 06/14/2024 (Approximate), Expires: 06/14/2025 [facility] Work Phone: Comment on above: Expected: 06/14/2024 (Approximate), Expires: 06/14/2025 Start: 06-14-2024 End: 06-14-2025 US.doppler Lower extremity artery - bilateral Vascular US lower extremity arterial duplex bilateral Imaging Routine Claudication (CMS/HCC) Expected: 06/14/2024, Expires: 06/14/2025 [facility] Comment on above: Expected: 06/14/2024 , [...] Visit [facility] [address] [place] [phone] Charissa Blair, [address] [address] [facility] Start: 05-09-2024 End: 05-09-2024 Patient encounter procedure 05/09/2024 10:30 AM EST Office Visit [facility] [address] [place] [address] [place] [address] Charissa Blair, DO [address] [place] [address] [facility] Start: 05-03-2024 End: 05-03-2024 Admission to same day surgery center 05/03/2024 7:45 AM EST - 05/03/2024 10:00 AM EST Surgery [facility] - Surgery [address] [place] [address] Charissa Blair, DO [address] [place] [address] [place] [address] REPLACEMENT TOTAL JOINT HIP [13925 (CPT )] [facility] Comment on above: REPLACEMENT TOTAL BEKA INT HIP [98283 (CPT )] Start: 05-03-2024 End: 05-03-2024 Arthrp acetblr/prox fem prostc agrft/algrft REPLACEMENT TOTAL JOINT HIP left hip degenerative joint disease 05/03/2024 7:45 AM EST [facility] Start: 05-03-2024 Subsequent hospital visit by physician 05/03/2024 7:45 AM EST Hospital Encounter [facility] Surgery [address] [place] [phone] Charissa Blair, DO [address] [place] [address] [facility] Start: 05-03-2024 End: 05-03-2024 Patient encounter procedure 05/03/2024 7:30 AM EST Procedure Visit [facility] Charissa Blair, DO [address] [place] [address] [facility] Start: 04-24-2024 End: 03-06-2025 Crossmatch RBC Crossmatch RBC Blood Bank Routine Preop examination Hypertension, unspecified type Expected: 04/24/2024, Expires: 03/06/2025 [facility] on above: Expected: 04/24/2024 , Expires: 03/06/2025 Start: 04-24-2024 End: 03-06-2025 Type and screen(includes indirect phill) Type and screen(includes indirect phill) Blood Bank Routine Preop examination Hypertension, unspecified type Expected: 04/24/2024, Expires: 03/06/2025 [employer] Work Phone: Comment on above: Expected: 04/24/2024 , Expires: 03/06/2025 Start: 04-17-2024 End: 04-17-2024 Patient encounter procedure [facility] Comment on above: Arrived Start: 04-06-2024 End: 04-06-2024 Patient encounter procedure [facility] Comment on above: Left hip pain; Arthritis of left hip Start: 03-08-2024 End: 03-08-2024 Patient encounter procedure 03/08/2024 11:15 AM EDT Office Visit [facility] [address] [facility] [address] [place] [phone] Javad Donato MD 112 [facility] [address] [place] [address] [facility] Start: 02-27-2024 Influenza vaccination [facility] Start: 09-20-2023 End: 09-20-2023 Patient encounter procedure 09/20/2023 10:30 AM EDT Office Visit [facility] [address] [place] [phone] Jose Hernández, ASSOCIATE PROFESSOR OF FORESTRY [address] [place], [place] [phone] [facility] Start: 08-27-2023 End: 08-27-2023 ambulatory 08/27/2023 9:30 AM EST Treatment [facility] [address] [place] [address] Nagi Plata, PT [address] [place] [address] [facility] Start: 08-23-2023 End: 08-23-2023 ambulatory 08/23/2023 9:30 AM EST Treatment [facility] [address] [place] [address] Jeanna Mendiola, AUTOMATION QTP TESTER [address] [place] [address] [facility] Start: 08-20-2023 End: 08-20-2023 ambulatory 08/20/2023 9:30 AM EST Treatment [facility] [address] [place] [address] Jeanna Mendiola, AUTOMATION QTP TESTER [address] [place] [address] [facility] Start: 08-16-2023 End: 08-16-2023 ambulatory 08/16/2023 9:30 AM EST Treatment [facility] [address] [place] [address] Jeanna Mendiola, AUTOMATION QTP TESTER [address] [place] [address] [facility] Start: 08-13-2023 End: 08-13-2023 ambulatory 08/13/2023 9:30 AM EST Treatment [facility] [address] [place] [phone] Nagi Plata, PT [address] [place] [address] [facility] Start: 08-09-2023 End: 08-09-2023 Patient encounter procedure 08/09/2023 1:00 PM EST Office Visit [facility] [address] [place] [address] Jose Hernández, ASSOCIATE PROFESSOR OF FORESTRY [address] [place], [place] [phone] [facility] Start: 08-09-2023 End: 08-09-2023 ambulatory [facility] Comment on above: Arrived Start: 08-06-2023 End: 08-06-2023 ambulatory 08/06/2023 9:30 AM EST Treatment [facility] [address] [place] [address] Jeanna Mendiola, BRENT [address] [place], [place] [phone] [facility] Start: 08-02-2023 End: 08-02-2023 ambulatory [facility] Comment on above: Arrived Start: 02-26-2023 Influenza vaccination C [facility] Start: 06-28-2022 ADVANCE DIRECTIVE DISCUSSION ADVANCE DIRECTIVE DISCUSSION [facility] Start: 06-28-2022 DEPRESSION ASSESSMENT DEPRESSION ASS ESSMENT [facility] Start: 2019 Abdominal aortic aneurysm screening Abdominal Aortic Aneurysm (AAA) Screen [facility] Start: 2019 Fall Risk Screening Fall Risk Screen ing [facility] Start: 2019 PNEUMOCOCCAL: 65+ (1 - PCV) PNEUMOCOCCAL: 65+ (1 - PCV) [facility] Start: 07-08-2015 Administration of varicella zoster vaccine Zoster (Shingles) Vaccine (2 of 3) [facility] Start: 07-08-2015 Shingrix Vaccine (2 of 3) Shingrix Vaccine (2 of 3) [facility] Start: 2014 RSV Vaccine (1 - 1-d ose 60+ series) RSV Vaccine (1 - 1-dose 60+ series) [facility] Start: 01-02-2004 SHINGRIX VACCINE (1 of 2) SHINGRIX VACCINE (1 of 2) [facility] Start: 1999 COLOGUARD (FIT-DNA) COLOGUARD (FIT-D NA) [facility] Start: 1999 Colonoscopy COLONOSCOPY [facility] Start: 1999 COLORECTAL CANCER SCREENING COLORECTAL CANCER SCREENING [facility] Start: [address] COLONOGRAPHY [facility] Start: 1999 DIABETES SCREEN DIABETES SCREEN [facility] Start: 1999 Diabetes Screening Diabetes Screenin g [facility] Start: 1999 FECAL OCCULT BLOOD FECAL OCCULT BLOO D [facility] Start: 1999 SIGMOIDOSCOPY SIGMOIDOSCOPY [facility] Start: 1989 Lipid 1996 panel - Serum or Plasma Lipid Screening [facility] Start: 1989 LIPID SCREEN LIPID SCREEN [facility] Start: 1973 Urine microalbumin profile [facility] Start: 01-02-1972 Adult BMI Follow Up Plan Adult BMI Follow Up Plan [facility] Start: 01-02-1972 HEPATITIS C SCREENING HEPATITIS C SC REENING [facility] Start: 1966 Depression Screening Depression Scre ening [facility] Start: 1954 COVID-19 VACCINE (#1) COVID-19 VACCI NE (#1) [facility] Start: 1954 Abdominal Aortic Aneurysm Screening Abdominal Aortic Aneurysm Screening [facility] Start: 1954 Medicare Annual Wellness Visit Medicare Annual Wellness Visit [facility] Start: 1954 Screening for malign ant neoplasm of colon [facility] End: 05-12-2024 XR HIP BILATERAL 5V PEL/AP/LAT EACH HIP XR HIP BILATERAL 5V PEL/AP/LAT EACH HIP Radiology Routine Bilateral hip joint arthritis 1 Occurrences starting 04/13/2023 until 05/12/2024 [facility] Work Phone: Comment on above: 1 Occurrences starti ng 04/13/2023 until 05/12/2024 [facility] Immunization Date Immunization Notes Care Provider Estevan sorto 06-14-2024 influenza virus vaccine, unspecified formulation Mac SANTIAGO [facility] 06-14-2024 Influenza, High-dose Seasonal, Quadrivalent, Preservative Free Javad Donato MD Work Phone: [facility] 05-18-2023 RSV vaccine preF3, recombinant Mac SANTIAGO [facility] 05-18-2023 RSV, recombinant, protein subunit RSVpreF, adjuvant reconstitu, 120mcg/0.5mL, PF (Arexvy) Nagi Narendra PT Work Phone: [facility] Work Phone: 05-18-2023 tetanus toxoid, redu sri diphtheria toxoid, and acellular pertussis vaccine, adsorbed Nagi Narendra PT Work Phone: [facility] 05-17-2023 Influenza, High-dose Seasonal, Quadrivalent, Preservative Free Nagi Narendra PT Work Phone: [facility] 05-17-2023 influenza virus vaccine, unspecified formulation Nagi Narendra PT Work Phone: [facility] 04-03-2022 influenza, high dose seasonal, preservative-free Nagi Narendra PT Work Phone: [facility] 04-03-2022 Influenza, High-dose Seasonal, Quadrivalent, Preservative Free Nagi Narendra PT Work Phone: [facility] 04-03-2022 influenza virus vaccine, unspecified formulation Laila Lewis PA-C Work Phone: [facility] 05-21-2020 influenza virus vaccine, unspecified formulation Mac SANTIAGO [facility] 05-21-2020 influenza, injectabl e, quadrivalent, contains preservative Nagi Narendra PT Work Phone: [facility] 05-21-2020 pneumococcal conjuga te vaccine, 13 valent Nagi Narendra PT Work Phone: [facility] 04-10-2020 influenza virus vaccine, unspecified formulation Mac SANTIAGO [facility] 05-03-2019 influenza virus vaccine, unspecified formulation Macmichelle SANTIAGO [facility] 05-03-2019 influenza, injectabl e, madin sancho canine kidney, preservative free Nagi Narendra PT Work Phone: [facility] 05-03-2019 pneumococcal polysaccharide vaccine, 23 valent Nagi Narendra PT Work Phone: [facility] 05-02-2018 influenza virus vaccine, unspecified formulation Macmichelle SANTIAGO [facility] 05-02-2018 seasonal influenza, intradermal, preservative free Nagi Narendra PT Work Phone: [facility] 06-07-2017 influenza virus vaccine, unspecified formulation Macmichelle SANTIAGO [facility] 06-07-2017 influenza, injectabl e, quadrivalent, contains preservative Nagi Narendra PT Work Phone: [facility] 05-13-2015 zoster vaccine, live Nagi Sp collado PT Work Phone: [facility] 05-13-2015 zoster vaccine, unspecified formulation [facility] 1 [facility] NEGATED: Highlighted row has not occurred!08-18-2021 SARS-CoV-2 (COVID-19) Ad26 vaccine, recombinant Mac SANTIAGO [facility] Payers Date Payer Category Payer Self-pay 2021 Private Health Insurance [id number] 2019 Unknown [id number]. [id number] 2018 Medicare [id number]. [id number] 1959 Medicare [id number] 1960 Unknown [id number] 1955 Unknown [id number] 2.16.84 0.1.112218.3.579.2.593 1954 Unknown [id number] 2.16.84 0.1.765422.3.579.2.593 1954 Unknown [id number] 2.16.84 0.1.738080.3.579.2.593 1954 Unknown [id number] 2.16.84 0.1.033451.3.579.2.593 1954 Unknown [id number] 2.16.84 0.1.458396.3.579.2.593 1954 Unknown [id number] 2.16.84 0.1.905623.3.579.2.593 1954 Unknown [id number] 2.16.84 0.1.905624.3.579.2.593 1954 Unknown [id number] 2.16.84 0.1.017481.3.579.2.593 1954 Unknown [id number] 2.16.84 0.1.017309.3.579.2.593 1954 Unknown [id number] 2.16.84 0.1.521200.3.579.2.593 1954 Unknown [id number] 2.16.84 0.1.527566.3.579.2.593 1954 Unknown [id number] 2.16.84 0.1.075580.3.579.2.593 1954 Unknown [id number] 2.16.84 0.1.629045.3.579.2.593 1954 Unknown [id number] 2.16.84 0.1.196735.3.579.2.593 1954 Unknown [id number] 2.16.84 0.1.217820.3.579.2.593 1954 Unknown [id number] 2.16.8 40.1.060335.3.579.2.1286 1954 Unknown [id number] 2.16.8 40.1.550913.3.579.2.1286 1954 Unknown [id number] 2.16.8 40.1.877378.3.579.2.1286 1954 Unknown [id number] 2.16.8 40.1.528792.3.579.2.128 1954 Unknown [id number] 2.16.8 40.1.611117.3.579.2.1286 1954 Unknown [id number] 2.16.84 0.1.067918.3.579.2.1286 1954 Unknown [id number] 2.16.84 0.1.459292.3.579.2.1286 1954 Unknown [id number] 2.16.84 0.1.450149.3.579.2.1286 1954 Unknown [id number] 2.16.84 0.1.774185.3.579.2.1286 1954 Unknown [id number] 2.16.84 0.1.482867.3.579.2.1286 1954 Unknown [id number] 2.16.8 40.1.647873.3.579.2.1259 1954 Unknown [id number] 2.16.84 0.1.351984.3.579.2.1259 1954 Unknown [id number] 2.16.84 0.1.134140.3.579.2.1259 1954 Unknown [id number] 2.16.84 0.1.892507.3.579.2.1259 1954 Unknown [id number] 2.16.84 0.1.218765.3.579.2.1258 1954 Unknown [id number] 2.16.84 0.1.392068.3.579.2.1258 1954 Unknown [id number] 2.16.84 0.1.006721.3.579.2.1258 1954 Unknown [id number] 2.16.84 0.1.977993.3.579.2.1258 1954 Unknown [id number] 2.16.84 0.1.214554.3.579.2.1258 1954 Unknown [id number] 2.16.84 0.1.721297.3.579.2.1258 1954 Unknown [id number] 2.16.84 0.1.250927.3.579.2.1258 1954 Unknown [id number] 2.16.84 0.1.976837.3.579.2.1258 1954 Unknown [id number] 2.16.84 0.1.704100.3.579.2.1258 1954 Unknown [id number] 2.16.84 0.1.158683.3.579.2.1258 1954 Unknown [id number] 2.16.84 0.1.479190.3.579.2.1258 1954 Unknown [id number] 2.16.84 0.1.583227.3.579.2.1258 1954 Unknown [id number] 2.16.84 0.1.512763.3.579.2.1258 1954 Unknown [id number] 2.16.84 0.1.989348.3.579.2.1258 1954 Unknown [id number] 2.16.84 0.1.939870.3.579.2.12584 Unknown [id number] 2.16.84 0.1.159014.3.579.2.1258 1954 Unknown [id number] 2.16.84 0.1.248332.3.579.2.1258 1954 Unknown [id number] 2.16.84 0.1.479569.3.579.2.1258 1954 Unknown [id number] 2.16.84 0.1.108346.3.579.2.1258 1954 Unknown [id number] 2.16.84 0.1.569504.3.579.2.1258 1954 Unknown [id number] 2.16.84 0.1.775280.3.579.2.1258 1954 Unknown [id number] 2.16.84 0.1.072838.3.579.2.1258 1954 Unknown [id number] 2.16.84 0.1.508706.3.579.2.125 1954 Unknown [id number] 2.16.84 0.1.116639.3.579.2.1258 1954 Unknown [id number] 2.16.84 0.1.364457.3.579.2.1258 1954 Unknown [id number] 2.16.84 0.1.463329.3.579.2.125 1954 Unknown [id number] 2.16.84 0.1.081840.3.579.2.125 1954 Unknown [id number] 2.16.8 40.1.480667.3.579.2.727 1954 Unknown [id number] 2.16.8 40.1.812821.3.579.2.727 1954 Unknown [id number] 2.16.8 40.1.436138.3.579.2.727 1954 Unknown [id number] 2.16. 840.1.053024.3.579.2.196 1954 Unknown [id number] 2.16. 840.1.810714.3.579.2.196 1954 Unknown [id number] 2.16. 840.1.324224.3.579.2.196 Unknown [id number] 2.16.8 40.1.171363.3.579.2.531 Social History Date Type Detail Facility Start: 05-05-2021 End: 02-05-2025 Ex-smoker (finding) [facility] Start: 04-15-2023 End: 05-10-2023 Male [facility] Start: 1955 Sex Assigned At Male [facility] Tobacco smoking stat [facility] Tobacco smoking consumption unknown [facility] Start: 02-02-2023 Gender identity Identifies as male gender (finding) [facility] Start: 02-02-2023 Sexual orientation Heterosexual (finding) [facility] Start: 06-28-1967 End: 09-27-1975 History of tobacco use Current smoker [facility] Work Phone: Start: 06-28-1967 End: 09-27-1975 History of tobacco use Cigarette Smoker [facility] Work Phone: Start: 04-15-2023 End: 05-10-2023 History of Social function [facility] Adult Depression Screening Assessment 1 [facility] Start: 01-11-2023 End: 02-17-2024 Tobacco use and exposure Smokeless tobacco non-user [facility] Start: 07-12-2023 End: 11-29-2024 Alcohol intake Current drinker of alcohol (finding) [facility] Within the last year , have you been afraid of your partner or ex-partner? No [facility] Do you belong to any clubs or organizations such as mandaeism groups, unions, fraternal [...] Start: 05-28-2023 Tobacco Comment 1976 quit smoking [facility] Start: 05-27-2020 Alcohol Comment occasional [facility] Start: 04-04-2024 Alcohol Comment rare [facility] Sexual Orientation [facility] Sex Male (finding) [facility] Medical Equipment Procedure Code Equipment Code Equipment Origin al Text Equipment Identifier Dates Stem Fem 129d 4 06/10 45.5mm Fitmore Protasul-64 Hip Rgh - [id number] Start: 07-07-2023 Maryann [employer]omet Femoral Head 36mm [id number] Start: 07-07-2023 Screw Bn 30mm 6. [address] Actb Seven Trlg Strl Rpl [id number] 29 - [id number] Start: 07-07-2023 Shell Actb 56mm Hip 4 Hl Clr Cd [place] G7 F Hmsphr - Sna - [id number] Start: 07-07-2023 Liner Actb 36mm F Vivacit-E Lum G7 Hip Strl Lf - [id number] Start: 07-07-2023 Screw Bn 30mm 6. [address] Actb Seven Trlg Strl Rpl [id number] 29 - [id number] Start: 07-07-2023 Screw Bn 30mm 6. 5mm [address] Actb Seven Trlg Strl Rpl [id number] 29 - [id number] Start: 07-07-2023 Functional Status Date Assessment Result Facility 11-29-2024 Patient Health Quest ionnaire 2 item (PHQ-2) [Reported] [facility] 10-25-2024 Patient Health Quest ionnaire 2 item (PHQ-2) [Reported] [facility] 02-07-2024 Functional Status N/A [facility] 06-01-2022 Functional Status N/A [facility] 02-16-2022 N/A [facility] Clinical Notes 02-16-2022 to 02-05-2025 MARY [...] your health care provider. General instructions Take qzbp-csd-uotribq and prescription medicines only as told by [...] provider. Document Revised: 03/03/2021 Document Reviewed: 03/03/2021 [employer] Patient Education 2023 [employer]. Follow Up Care 02/07/2024 11:34:29 With:PAMELA BAER, Mac Stephenson, URL Address: [address] [place] [id number] When: Unknown [facility] 02-05-2025 Note Patient Education Obstetrics and [...] health care provider. General instructions ??? Take njfi-vpf-vwmzbbp and prescription medicines only as told by [...] drink, and whe (more content not included)... [facility] 11-29-2024 History of Present illness Narrative Images [...] mg by mouth in the morning. HYDROcodone-acetaminophen ([place]field) 5-325 MG tablet Take 1 tablet by [...] reviewed for this patient. Benign essential hypertension ([facility]) Patient's blood pressure is currently stable. Continue [...] follow up with Dr. Omari Tomas, his Veterinarian, for further evaluation of the skin between [...] (BMI) of 38.0 to 38.9 in adult ([facility]) Encouraged portion control, decrease simple sugars and [...] Appointment As Scheduled. documented in this encounter [facility] 11-28-2024 Telephone encounter Note Appt scheduled [facility] 11-28-2024 Miscellaneous Notes Appt scheduled Patient will need an appointment Prednisone 20 mg for a skin irritation. He said that he usually gets this medication. Clotrimazole - betamethasone cream for althetes foot He said he hasn't had these meds in a while and didn't know if he would need an appointment or not [facility] [place] documented in this encounter [facility] 11-27-2024 Telephone encounter Note Patient will need an appointment [facility] 11-27-2024 Telephone encounter Note Prednisone 20 mg for a skin irritation. He said that he usually gets this medication. Clotrimazole - betamethasone cream for althetes foot He said he hasn't had these meds in a while and didn't know if he would need an appointment or not [facility] 10-30-2024 History of Present illness Narrative Images [...] Orally finasteride (PROSCAR) 5 mg, Daily HYDROcodone-acetaminophen (Enfield) 5-325 MG tablet 1 tablet, Oral, Every [...] Unremarkable left total hip arthroplasty. Jose Hernández LEAD ADVISOR-CATERING STAFF MEMBER Procedures Orders Placed This Encounter Procedures XR [...] requiring urgent evaluation. documented in this encounter [facility] 10-25-2024 History of Present illness Narrative Images [...] day at the same time. [DISCONTINUED] HYDROcodone-acetaminophen (Enfield) 5-325 MG tablet Take 1 tablet by [...] to the equimolar-standardized total PSA ([facility]ee [place]). Comparison of serial PSA results should be [...] LDL-C. Humberto SS et al. LULU. 2013;310(19): 8994-4469 (http://education.Double Fusion.Ufora/faq/QHA152) CHOL/HDLC RATIO 06/14/2024 5.4 (H) <5.0 (calc) [...] diagnosis of diabetes in children. According to [place] Diabetes [employer] (ADA) guidelines, hemoglobin A1c <7.0% represents optimal control in non- diabetic patients. Different metrics may apply to specific patient populations. Standards of Medical Care in Diabetes(ADA). Assessment/Plan Diagnoses and all orders for this visit: Herniated lumbar disc without myelopathy - HYDROcodone-acetaminophen (Enfield) 5-325 MG tablet; Take 1 tablet by [...] for Routine F/U. documented in this encounter [facility] 09-25-2024 Telephone encounter Note LM for pt to CB [facility] 09-25-2024 Miscellaneous Notes LM for pt to CB Lm to cb Lm on vm to call us, need to know why he is wanting or needing this Patient is wondering if he needs/or is due for an MMR vaccine. documented in this encounter [facility] 09-22-2024 Telephone encounter Note Lm to cb [facility] 09-21-2024 Telephone encounter Note Lm on vm to call us, need to know why he is wanting or needing this [facility] 09-21-2024 Telephone encounter Note Patient is wondering if he needs/or is due for an MMR vaccine. [facility] 07-31-2024 History of Present illness Narrative Images [...] requiring urgent evaluation. documented in this encounter [facility] 07-27-2024 History of Present illness Narrative Images [...] mg by mouth in the morning. HYDROcodone-acetaminophen (Enfield) 5-325 MG tablet Take 1 tablet by [...] risks of opioid therapy including potential for DRINK WAITER s/e, GI s/e, respiratory s/e, dermatologic s/e, [...] Medication Follow Up. documented in this encounter [facility] 07-03-2024 History of Present illness Narrative Images from the original note were not included. HISTORY OF PRESENT ILLNESS: POST OP PT Lawson Vela is an 69 y.o. @ male. (EST PT) S/P (L) NASH 05/03/24 (8WKS 5DAYS) XRAYS 06/12/24 IN [facility] DOING WELL- CONTINUES WITH PT, WANTS TO START AQUATIC THERAPY AT [facility]. USES CANE PRN. GOOD ROM/STRENGTH- +HYDROCODONE [...] requiring urgent evaluation. documented in this encounter [facility] 06-20-2024 History of Present illness Narrative Images [...] ind with HEP for maintenance/progression prn at CT Short Term Goal #2: pt will demo [...] sign below. Date: documented in this encounter [facility] 06-14-2024 History of Present illness Narrative Images [...] mg by mouth in the morning. HYDROcodone-acetaminophen (Enfield) 5-325 MG tablet Take 1 tablet by [...] you have a medical power of attorney lawyer?: (Patient-Rptd) (P) No Objective : BP 126/70 [...] living will and durable power of attorney lawyer for healthcare. We discussed telling keith people about their advance directives such as close family members, and requested a copy to scan into the patient's EHR. An advance directive packet was offered to the patient. Assessment/Plan Diagnoses and all orders for this visit: Routine general medical examination at health care facility ACP (advance care planning) Benign essential hypertension ([facility]) - Lipid panel; Future - Comprehensive metabolic [...] need - Influenza, high-dose seasonal, quadrivalent, PF (VRU448) (Fluzone High Dose [place] North 0.7mL dose) Herniated lumbar disc without myelopathy - HYDROcodone-acetaminophen ([place]field) 5-325 MG tablet; Take 1 tablet by mouth every 6 (six) hours if needed for severe pain Claudication ([facility]) - Vascular US lower extremity arterial duplex bilateral; Future Orders Placed This Encounter Procedures Influenza, high-dose seasonal, quadrivalent, PF (MLA974) (Fluzone High Dose Quad North 0.7mL dose) [...] June 14, 2024 documented in this encounter [facility] 06-12-2024 History of Present illness Narrative Images [...] Unremarkable left total hip arthroplasty. Jose Hernández LEAD ADVISOR-CATERING STAFF MEMBER XR hip left 2 or 3 views [...] Unremarkable left total hip arthroplasty. Jose Hernández LEAD ADVISOR-CATERING STAFF MEMBER Procedures Orders Placed This Encounter Procedures XR [...] requiring urgent evaluation. documented in this encounter [facility] 05-16-2024 History of Present illness Narrative Images [...] mg by mouth in the morning. HYDROcodone-acetaminophen (Enfield) 5-325 MG tablet Take 1 tablet by [...] wrist GERD (gastroesophageal reflux disease) HTN (hypertension) ([facility]) Lumbosacral disc disease Osteoarthritis ALLERGIES: Allergies Allergen [...] if he desires a referral to another welding process specialist we would be happy to make referral, he states he would like to continue his care here. Boni Blair D.O. documented in this encounter [facility] 05-09-2024 History of Present illness Narrative Images [...] mg by mouth in the morning. HYDROcodone-acetaminophen ([place]field) 5-325 MG tablet Take 1 tablet by [...] wrist GERD (gastroesophageal reflux disease) HTN (hypertension) ([facility]) Lumbosacral disc disease Osteoarthritis ALLERGIES: Allergies Allergen [...] Blair/demi Blair D.O. documented in this encounter [facility] 05-08-2024 Telephone encounter Note Post op pain rx refill. PDMP reviewed [facility] 05-08-2024 Miscellaneous Notes Post op pain rx refill. PDMP reviewed documented in this encounter [facility] 05-04-2024 Telephone encounter Note He already discharged and PT is meeting with him today. [facility] 05-04-2024 Miscellaneous Notes He already discharged and PT is meeting with him today. Maxine myrick that patient is being discharged today from his LT Hip replacement and would like us to call patient to let him know what he needs to do. Patient's phone number is [phone]. documented in this encounter [facility] 05-04-2024 Telephone encounter Note Maxine myrick that patient is being discharged today from his LT Hip replacement and would like us to call patient to let him know what he needs to do. Patient's phone number is [phone]. [facility] 05-02-2024 Telephone encounter Note Post op pain rx. PDMP reviewed [facility] 05-02-2024 Miscellaneous Notes Post op pain rx. PDMP reviewed documented in this encounter [facility] 04-17-2024 History of Present illness Narrative Images from the original note were not included. HPI surgical clearance Additional comments: Pt sched 05/03/24 for left hip replacement with Dr Blair at [facility] PAT completed Last edited by France Farah LPN on 04/17/2024 1:48 PM. Subjective Patient ID: Lawson Vela is a 69 y.o. male who presents for surgical clearance (Pt sched 05/03/24 for left hip replacement with Dr Blair at [facility]/PAT completed). Pt has had left hip [...] mg by mouth in the morning. HYDROcodone-acetaminophen (Enfield) 5-325 MG tablet Take 1 tablet by [...] with food 4 tablet 3 [DISCONTINUED] HYDROcodone-acetaminophen (Enfield) 5-325 MG tablet No current facility-administered medications [...] As Previously Scheduled. documented in this encounter [facility] 04-12-2024 Telephone encounter Note OARRS reviewed, Rx sent into patient's pharmacy. [facility] 04-12-2024 Miscellaneous Notes OARRS reviewed, Rx sent into patient's pharmacy. Patient comment: Getting prepared for future surgery. documented in this encounter [facility] 04-12-2024 Telephone encounter Note Patient comment: Getting prepared for future surgery. [facility] 04-06-2024 History of Present illness Narrative HISTORY [...] tx: cane, norco, ice, heat, topicals, XR [facility] 11/01/23, hot tub, PREHAB/HEP Currently seeing pain management, Dr Ludwig [facility] for LBP MEDICATION: Current Outpatient Medications [...] mg by mouth in the morning. HYDROcodone-acetaminophen ([place]field) 5-325 MG tablet irbesartan-hydroCHLOROthiazide (Avalide) 150-12.5 MG [...] wrist GERD (gastroesophageal reflux disease) HTN (hypertension) ([facility]) Lumbosacral disc disease Osteoarthritis ALLERGIES: Allergies Allergen [...] IMAGING: November 01, 2023 x-rays from the [facility] AP pelvis and lateral left hip [...] Blair/demi Blair D.O. documented in this encounter [facility] 04-04-2024 Instructions Trista Pelaez RN - 04/04/2024 [...] in at the main lobby of the [facility]- registration desk is straight ahead as soon as you walk in. Tell them you are here for surgery. 2. If you have a Living Will/Durable Power of Journal Box Inspector for Health Care that is not on [...] after you have bathed. 5. NO nail guamanian/acrylic on at least one finger. If you are having a hand, wrist or foot surgery then all nail guamanian and artificial/acrylic nails must be removed from [...] please call the Preadmission Testing office at [phone], Mon.-Fri. 7 a.m.-3 p.m. Leave a voicemail [...] with your doctor. documented in this encounter [facility] 04-04-2024 Miscellaneous Notes Patient called and educated [...] precautions good understanding. documented in this encounter [facility] 02-17-2024 History of Present illness Narrative Subjective [...] Appointment As Scheduled. documented in this encounter [facility] 02-07-2024 Hospital Discharge instructions Patient Education 02/07/2024 [...] urethra. Follow these instructions at home: Take fiut-sul-gzgsvku and prescription medicines only as told by [...] Document Reviewed: 12/31/2021 Elsevier Patient Education 2022 [employer] Follow Up Care 08/30/2023 12:37:09 With:PAMELA BAER, Mac Stephenson, URL Address: [facility] [address] , [place] [address]- When: Unknown [facility] 02-07-2024 Note Patient Education Urology Benign [...] Follow these instructions at home: ? Take gcxl-pkx-fkhvodb and prescription medicines only as told by [...] develop side effec (more content not included)... [facility] 08-09-2023 History of Present illness Narrative Images [...] develop for requiring urgent evaluation. Jose Hernández LEAD ADVISOR-CATERING STAFF MEMBER documented in this encounter [facility] 07-07-2023 Hospital course Narrative Summary: status post hip replacement right Orthopaedic Discharge Summary Patient ID: Lawson Vela [id number] y.o. 1955 Admit date: 07/07/2023 Discharge [...] Closure: Deep and Superficial Layers Hospital Course:See [facility] inpatient notes for specifics Patient was admitted [...] Charissa Blair DO documented in this [facility] Progress note Formatting of t his note is different from the original. Physical Therapy Evaluation Discharge Recommendations PT Recommendations: Home Home Recommendations: Intermittent caregiver support for: Post Discharge Therapy Recommendations: Home Physical Therapy Capacity Planning Manager Support for-: ADL Deficits, Mobility Deficits Past Medical History: Diagnosis Date Arthritis Benign prostatic hyperplasia Fractures GERD (gastroesophageal reflux disease) Hypertension Past Surgical History: Procedure Laterality Date APPENDECTOMY RELEASE CARPAL TUNNEL Right 05/29/2020 Performed by Charissa Blair DO at [facility] 6 Clicks: Basic Mobility Turning [...] Principal Problem: Primary osteoarthritis of right hip [facility] 07-07-2023 Miscellaneous Notes Physical Therapy Evaluation Discharge Recommendations PT Recommendations: Home Home Recommendations: Intermittent caregiver support for: Post Discharge Therapy Recommendations: Home Physical Therapy Capacity Planning Manager Support for-: ADL Deficits, Mobility Deficits Past Medical History: Diagnosis Date Arthritis Benign prostatic hyperplasia Fractures GERD (gastroesophageal reflux disease) Hypertension Past Surgical History: Procedure Laterality Date APPENDECTOMY RELEASE CARPAL TUNNEL Right 05/29/2020 Performed by Charissa Blair DO at [facility] 6 Clicks: Basic Mobility Turning [...] swallowing) Questions, Problems, Concerns Preop phone number [phone] ext [phone] The following attachments cannot be sent through Care Everywhere.Total Hip Replacement Discharge Instructions (Zambian)documented in this encounter [facility] 07-07-2023 Attending History and physical note HISTORY AND PHYSICAL INTERVAL NOTE: Lawson Vela 1955 [id number] H&P reviewed. The patient was examined and there are no changes to the H&P. Charissa Blair DO Source Note - Charissa Blair DO - 07/06/2023 7:28 AM EST [facility] 07-07-2023 History and physical note HISTORY AND PHYSICAL INTERVAL NOTE: Lawson Vela 1955 [id number] H&P reviewed. The patient was examined and there are no changes to the H&P. Charissa Blair DO Source Note - Cahrissa Blair DO - 07/06/2023 7:28 AM EST [...] to the recovery room in stable condition [facility] [employer] [facility] 04-13-2023 Note HNO ID: [id number] Author: Laila Lewis PA-C Service: ? Author Type: Physician Party Bus Driver Type: Progress Notes Filed: 04/15/2023 1:53 PM [...] a week. Hydrocodone, Meloxicam Zanaflex, Lidocaine patches tree care foreman Prior to ablation symptoms on left have [...] days 2 More (more content not included)... [facility] 04-13-2023 Instructions Laila Lewis PA-C - [...] which is considered uptake). Laila Lewis PA-C [phone] documented in this encounter [facility] 04-13-2023 History of Present illness Narrative [...] a week. Hydrocodone, Meloxicam Zanaflex, Lidocaine patches tree care foreman Prior to ablation symptoms on left have [...] the patient MRI Lumbar: Narrative PERFORMED AT [facility] LOCATION:[facility] CLINICAL HISTORY: Low back pain extending into the right lower extremity. COMPARISON: 05/01/2022 TECHNIQUE: Multiplanar MR imaging of the lumbar spine was performed. FINDINGS: The spine is visualized from the P42-N3-N2 levels on the sagittal sequences, assuming a [...] narrowing. At the L5-S1 level, there is qgnb-bs-ncezgxio diffuse disc bulging and moderate hypertrophic facet changes, which results in moderate to marked neural foraminal narrowing. Procedure Note CONVERSION, GENERIC - 11/13/2022 PERFORMED AT [facility] LOCATION:[facility] CLINICAL HISTORY: Low back pain extending into the right lower extremity. COMPARISON: 05/01/2022 TECHNIQUE: Multiplanar MR imaging of the lumbar spine was performed. FINDINGS: The spine is visualized from the J47-S5-R3 levels on the sagittal sequences, assuming a [...] narrowing. At the L5-S1 level, there is hkks-zt-tcuwdfim diffuse disc bulging and moderate hypertrophic facet changes, which results in moderate to marked neural foraminal narrowing. 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 Report reported and signed by James Vizcaino on 10/19/2022 1406 CONVERSION, GENERIC - 11/14/2022 PERFORMED AT [facility] LOCATION:[place] 112 110 EXAMINATION: XR HIPS TRENT 3_4V [...] 8:55 AM PAGER: documented in this encounter [facility] 02-12-2023 Note HNO ID: [id number] Author: Laila Lewis PA-C Service: ? Author Type: Physician Party Bus Driver Type: Progress Notes Filed: 02/12/2023 12:58 PM Note Text: Per Triage: Lawson Vela is a 68 year old male that requests evaluation of lumbar spine. Per review, they have symptoms of LBP into left leg pain. Positive for numbness, difficulty walking and weakness. CMT: PT Hydrocodone tree care foreman Studies (Reports unless indicated) MRI Lumbar: Narrative PERFORMED AT [facility] LOCATION:[facility] CLINICAL HISTORY: Low back pain extending into the right lower extremity. COMPARISON: 05/01/2022 TECHNIQUE: Multiplanar MR imaging of the lumbar spine was performed. FINDINGS: The spine is visualized from the M38-C8-R9 levels on the sagittal sequences, assuming a [...] narrowing. At the L5-S1 level, there is lotm-qx-txirhxej diffuse disc bulging and moderate hypertrophic facet changes, which results in moderate to marked neural foraminal narrowing. Procedure Note CONVERSION, GENERIC - 11/13/2022 PERFORMED AT [facility] LOCATION:[facility] CLINICAL HISTORY: Low back pain extending into the right lower extremity. COMPARISON: 05/01/2022 TECHNIQUE: Multiplanar MR imaging of the lumbar spine was performed. FINDINGS: The spine is visualized from the J07-B4-Z7 levels on the sagittal sequences, assuming a [...] narrowing. At the L5-S1 level, there is imcw-dm-pwuhqchb diffuse disc bulging and moderate hypertrophic facet changes, which results in moderate to marked neural foraminal narrowing. 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 Report reported and signed by James Vizcaino on 10/19/2022 1402 Disposition: Please schedule with Laila. [facility] 02-12-2023 History of Present illness Narrative Per Triage: Lawson Vela is a 68 year old male that requests evaluation of lumbar spine. Per review, they have symptoms of LBP into left leg pain. Positive for numbness, difficulty walking and weakness. CMT: PT Hydrocodone tree care foreman Studies (Reports unless indicated) MRI Lumbar: Narrative PERFORMED AT [facility] LOCATION:[facility] CLINICAL HISTORY: Low back pain extending into the right lower extremity. COMPARISON: 05/01/2022 TECHNIQUE: Multiplanar MR imaging of the lumbar spine was performed. FINDINGS: The spine is visualized from the M12-U6-H7 levels on the sagittal sequences, assuming a [...] narrowing. At the L5-S1 level, there is ywds-lu-otndfcjf diffuse disc bulging and moderate hypertrophic facet changes, which results in moderate to marked neural foraminal narrowing. Procedure Note CONVERSION, GENERIC - 11/13/2022 PERFORMED AT [facility] LOCATION:[facility] CLINICAL HISTORY: Low back pain extending into the right lower extremity. COMPARISON: 05/01/2022 TECHNIQUE: Multiplanar MR imaging of the lumbar spine was performed. FINDINGS: The spine is visualized from the Z55-A1-C6 levels on the sagittal sequences, assuming a [...] narrowing. At the L5-S1 level, there is fbng-wr-klkrqvsy diffuse disc bulging and moderate hypertrophic facet changes, which results in moderate to marked neural foraminal narrowing. 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 Report reported and signed by James Vizcaino on 10/19/2022 1404 Disposition: Please schedule with Laila. Patient name: Lawson Vela Are you being referred by a Center for Spine Health Provider or Pain Management Provider at [facility]? No If answer is YES please [...] the facility where the MRI/CT/myelogram was completed: [facility] Address: [address] [place] [address] [facility] Address: [address] [place] [id number] MRI/CT/myelogram viewable in Epic: No If not, please provide [phone] to fax in imaging reports for review. [...] therapy was completed PT Injections [facility] Address: [address] [place] [address] Have you tried any other kinds of [...] where the surgery was completed: Additional Comments [phone] (Home Phone) documented in this encounter [facility] 01-28-2023 Note HNO ID: [id number] Author: Mookie Lee Service: ? Author Type: ? Type: Progress Notes Filed: 02/12/2023 12:58 PM Note Text: Patient name: Lawson Vela Are you being referred by a [place] for Spine Health Provider or Pain Management Provider at [facility]? No If answer is YES please [...] the facility where the MRI/CT/myelogram was completed: [facility] Imaging Address: [address] [place] [address] [facility] Address: [address] [place] [address] MRI/CT/myelogram viewable in Epic: No If not, please provide [phone] to fax in imaging reports for review. [...] therapy was completed PT Injections [facility] Address: [address] [place] [address] Have you tried any other kinds of [...] where the surgery was completed: Additional Comments [phone] (Home Phone) [facility] 12-17-2022 Evaluation note Encounter Date Diagnosis Assessment [...] prednisone taper. Advised not to take any ctkd-fok-hbfdibs ibuprofen while taking prednisone. OARRS reviewed . [...] spine, education on diet, decrease sugar intake. [employer] Other 05-16-2023 NoteCONSULTATION CONSULTATION DATE: 11/10/2022 TO: [...] our patients to inform us about any mqht-fgj-omzzrzg medications or herbal remedies/nutritional supplements/alternative remedies. 2. [...] options with their primary care provider.[facility] [id number] Note CONSULTATION CONSULTATION DATE: 10/08/2022 TO: Javad [...] our patients to inform us about any zxrd-ags-vysvxgy medications or herbal remedies/nutritional supplements/alternative remedies. 2. [...] options with their primary care provider.[facility] [id number] Note CONSULTATION CONSULTATION DATE: 09/10/2022 HISTORY: This [...] a tightness in that region. Medications include Enfield 5/325 daily, tizanidine 4 mg q.h.s., Mobic [...] three months' time unless otherwise indicated.[facility] [id number] NoteCONSULTATION PROCEDURE DATE: 09/10/2022 PREOPERATIVE DIAGNOSIS: Bilateral [...] and patient tolerated the procedure well.[facility] [id number] Note CONSULTATION CONSULTATION DATE: 07/23/2022 HISTORY OF [...] current medications include Mobic 50 mg daily, Enfield 5/325 per his PCP daily p.r.n. and [...] in the office after the procedure.[facility] [id number] NoteCONSULTATION CONSULTATION DATE: 06/25/2022 HISTORY OF PRESENT [...] with a vitamin regimen and he takes Enfield 5/325 daily p.r.n., and Mobic 15 mg [...] his procedure here in the office.[facility] [id number] Hospital Discharge instructions Patient Education 06/01/2022 08:22:09 [...] urethra. Follow these instructions at home: Take nfmu-aao-kjkytdn and prescription medicines only as told by [...] 06/14/2006 Document Revised: 05/09/2019 Document Reviewed: 07/19/2017 [employer] Patient Education 2020 [employer] Love QC. Follow Up Care 02/16/2022 11:28:21 With:PAMELA BAER, Mac Stephenson, URL Address: [facility] [address] , [place] [address]- When: Unknown [facility] 11-22-2022 NoteCONSULTATION CONSULTATION DATE: 05/19/2022 CHIEF [...] The patient currently takes Mobic 15 mg, Enfield 5/325 on a p.r.n. basis as prescribed [...] been performed. CC: Javad Donato M.D.[facility] [id number] NoteCONSULTATION CONSULTATION DATE: 04/28/2022 CHIEF COMPLAINT: Left [...] patient takes two Aleve. He also takes Enfield 5/[address] Donato has prescribed for [...] to proceed. CC: Javad Donato M.D.[facility] [id number] Hospital Discharge instructions Patient Education 02/16/2022 11:24:07 [...] urethra. Follow these instructions at home: Take xtdn-tph-kncwzlr and prescription medicines only as told by [...] 06/14/2006 Document Revised: 05/09/2019 Document Reviewed: 07/19/2017 [employer] Patient Education 2020 [employer] QC. 02/16/2022 11:24:04 Calorie Counting for Weight Loss [...] 06/14/2006 Document Revised: 03/03/2019 Document Reviewed: 05/14/2017 [employer] Patient Education [employer]. Follow Up Care 08/18/2021 12:09:57 With:Mac SANTIAGO MD, URL Address: [address] [place], [place] [id number] Business (1) When:Within 6 Month(s) [facility] evaluation + Plan note Future Appointments Appointment Date:06/01/2022 10:45:00 AM Scheduled Provider:Mac SANTIAGO MD Location:[facility] Appointment Type:URO Office Visit [facility] evaluation + Plan note Future Appointments Appointment Date:11/30/2022 08:45:00 AM Scheduled Provider:Mac SANTIAGO MD Location:[facility] Appointment Type:URO [facility] Future Appointments Appointment Date:02/05/2025 10:45:00 AM Scheduled Provider:Mac SANTIAGO MD Location:[facility] Appointment Type:URO [facility] Future Appointments Appointment Date:02/08/2026 08:15:00 AM Scheduled Provider:Mac SANTIAGO MD Location:[facility] Appointment Type:URO Office Visit [facility] [place] evaluation noteNo assessment information available [facility] Work Phone: evaluation noteNort [employer] Other evaluation note* Diagnosis Spinal stenosis, lumbar region with neurogenic claudication- Primary [facility] Spinal stenosis, lumbar region with neurogenic claudication- Primary Bilateral hip joint arthritis [facility] Diagnosis Right hip pain- Primary Pain in joint, pelvic region and thigh Status post total hip replacement, right documented in this encounter [facility]* Diagnosis Right hip pain- Primary [...] right hip replacement documented in this encounter [facility]* Diagnosis Left hip pain Pain in joint, pelvic region and thigh Arthritis of left hip documented in this encounter [facility]* Diagnosis Herniated lumbar disc without myelopathy- Primary documented in this encounter [facility]* Diagnosis Status post right hip [...] left hip arthroplasty documented in this encounter [facility]* Diagnosis Left hip pain- Primary Pain in joint, pelvic region and thigh S/P total left hip arthroplasty documented in this encounter [facility]* Diagnosis Left hip pain- Primary Pain in joint, pelvic region and thigh S/P total left hip arthroplasty documented in this encounter [facility]* Diagnosis Acute non-recurrent frontal sinusitis- Primary Herniated lumbar disc without myelopathy documented in this encounter [facility]* Diagnosis Primary osteoarthritis of right hip- Primary [facility] Diagnosis Preop examination- Primary Unspecified pre-operative examination Hypertension, unspecified type Preop examination Unspecified pre-operative examination Hypertension, unspecified type documented in this encounter [facility]* Diagnosis Herniated lumbar disc without myelopathy IGT (impaired glucose tolerance) Impaired glucose tolerance test Class 2 severe obesity with serious comorbidity and body mass index (BMI) of 37.0 to 37.9 in adult, unspecified obesity type ([facility]) Morbid (severe) obesity due to excess calories ([facility]) Essential (primary) hypertension ([facility]) Unspecified essential hypertension Body mass index (BMI) 38.0-38.9, adult Left hip pain Pain in joint, pelvic region and thigh documented in this encounter [facility] note* Diagnosis S/P total left hip arthroplasty- Primary Left hip pain Pain in joint, pelvic region and thigh documented in this encounter [facility]* Diagnosis Herniated lumbar disc without myelopathy- Primary Benign essential hypertension ([facility]) Essential hypertension, benign S/P total left hip arthroplasty Tinea pedis of both feet Skin irritation Unspecified disorder of skin and subcutaneous tissue Open wound of left lower leg, initial encounter Class 2 severe obesity due to excess calories with serious comorbidity and body mass index (BMI) of 38.0 to 38.9 in adult ([facility]) Umbilical hernia without obstruction and without gangrene Status post right hip replacement [facility] N[facility]ative - Reported* Type Description Date Medical History appendicitis Medical History Arthritis Medical History Hypertension Medical History obesity Medical History pneumonia Medical History prostate cancer Surgical History appendectomy Surgical History carpal tunnel release 2017 Hospitalization History see surg [employer] Other History general Narrative - ReportedNortEncompass Health [facility] [employer] Other Hospital course Narrative No data available for this section [facility] progress note No data available for this section [facility] reason for referral (narrative)* Diagnostic Procedure Only (Routine) - Pending Review Specialty Diagnoses / Procedures Referred By Contac t Referred To Contact XR IMAGING Diagnoses Bilateral hip joint arthritis Procedures XR HIP BILATERAL 5V PEL/AP/LAT EACH HIP RADEX HIPS BILATERAL WITH PELVIS MINIMUM 5 VIEWS Laila Lewis PA-C [address] [place] [address] [facility] [place] [id number] Referral ID Status Reason Start Date Expiration Date Visits Requested Visits Authorized [id number] Pending Review Auto-Generat ed Referral 3 05/12/2024 1 1 * Consult, Test, Treat (Routine) - Pending Review Specialty Diagnoses / Procedures Referred By Rayray t Referred To Contact Orthopedics Diagnoses Bilateral hip joint arthritis Procedures CONSULT TO ORTHOPAEDICS OFFICE/OUTPATIENT [facility] 60-74 MINUTES Laila Lewis PA-C [address] [place] [address] Referral ID Status Reason Start Date Expiration Date Visits Requested Visits Authorized [id number] Pending Review PCP Requested Referral 3 04/12/2024 1 1 [facility] for visit Narrativeself referral- low back pain L4-L5 [employer] Other reason for visit Narrative* Rehabilitation - Outpatient (Routine) - Authorized Specialty Diagnoses / Procedures Referred By Contac t Referred To Contact Physical Therapy Diagnoses S/P total left hip arthroplasty Procedures MS OFFICE/OUTPATIENT [facility] Jose Hernández, ASSOCIATE PROFESSOR OF FOR[place]STRY [place] [address] Phone: tel: fax: Nagi Plata, PT [address] [place] [address] Phone: tel: fax: Referral ID Status Reason Start Date Expiration Date Visits Requested Visits Authorized [id number] Authorized Consult and Treat 06/12/2024 06/27/2024 10 10 [facility] Narrative* Rehabilitation - Outpatient (Routine) - Authorized Specialty Diagnoses / Procedures Referred By Contac t Referred To Contact Physical Therapy Diagnoses S/P total left hip arthroplasty Procedures MS OFFICE/OUTPATIENT NEW [facility] 60 MINUTES Jose Hernández, YISEL [address] [place] [address] Phone: tel: fax: Nagi Plata, PT [address] [place] [address] Phone: tel: fax: Referral ID Status Reason Start Date Expiration Date Visits Requested Visits Authorized [id number] Authorized Consult and Treat 06/29/2024 06/27/2025 20 20 [facility]Reason for [facility] Narrative* Rehabilitation - Outpatient (Routine) - Authorized Specialty Diagnoses / Procedures Referred By Contac t Referred To Contact Physical Therapy Diagnoses S/P total left hip arthroplasty Procedures MS OFFICE/OUTPATIENT NEW [facility] MDM 60 MINUTES Jose Hernández, YISEL [address] [place] [address] Phone: tel: fax: Nagi Plata, PT [address] [place] [address] Phone: tel: fax: Referral ID Status Reason Start Date Expiration Date Visits Requested Visits Authorized [id number] Authorized Consult and Treat 06/29/2024 06/27/2025 20 [...] ECG 12 lead Charissa Blair DO [address] [place] [address] Referral ID Status Reason Start Date Expiration Date V isits Requested Visits Authorized [id number] Pending Review 03/06/2024 03/06/2025 1 1 Specialty Diagnoses / Procedures Referred By Contac t Referred To Contact Procedures Remove dressing (specify when) Nagi Miner, LEAD ADVISOR-CATERING STAFF MEMBER [address], [facility] [address] [place] [address] Referral ID Status Reason Start Date Expiration Date V isits Requested Visits Authorized [id number] Pending Review 07/07/2023 07/06/2024 1 1 Specialty Diagnoses / Procedures Referred By Contac t Referred To Contact Procedures Adult diet Nagi Miner, LEAD ADVISOR-CATERING STAFF MEMBER [address], [facility] [address] [place] [address] Referral ID Status Reason Start Date Expiration Date V isits Requested Visits Authorized [id number] Pending Review 07/07/2023 07/06/2024 1 1 Additional Source Comments Care Team (unrecognized sect ion and content) Team Status: Active Member Role Status Dates Javad Donato II MD Primary Care Provider Active Team Status: Inactive Member Role Status Dates Javad Donato II MD Primary Care Provider Active Erica Xiong NP-C Attending Provider Active Cloth Printer Helper Relationship Specialty Start Date End Date Javad Donato MD [address] [place] [address] PCP - ACO Reach 11/19/22 Javad Donato MD [address] [place] [address] PCP - General Internal Medicine 01/05/23 Cloth Printer Helper Relationship Specialty Start Date End Date Javad Donato MD [address] [place] [address] PCP - ACO Reach 11/19/22 Javad Donato MD [address] [place] [address] PCP - General Internal Medicine 01/05/23 Cloth Printer Helper Relationship Specialty Start Date End Date Javad Donato MD [address] [place] [address] PCP - ACO Reach 11/19/22 Javad Donato MD [address] [place] [address] PCP - General Internal Medicine 01/05/23 Cloth Printer Helper Relationship Specialty Start Date End Date Javad Donato MD [address] [place] [address] PCP - ACO Reach 11/19/22 Javad Donato MD [address] [place] [address] PCP - General Internal Medicine 01/05/23 Cloth Printer Helper Relationship Specialty Start Date End Date Javad Donato MD [address] [place] [address] PCP - ACO Reach 11/19/22 Javad Donato MD [address] [place] [address] PCP - General Internal Medicine 01/05/23 Cloth Printer Helper Relationship Specialty Start Date End Date Javad Donato MD [address] [place] [address] PCP - ACO Reach 11/19/22 Javad Donato MD [address] [place] [address] PCP - General Internal Medicine 01/05/23 Cloth Printer Helper Relationship Specialty Start Date End Date Javad Donato MD [address] [place] [address] PCP - ACO Reach 11/19/22 Javad Donato MD [address] [place] [address] PCP - General Internal Medicine 01/05/23 Cloth Printer Helper Relationship Specialty Start Date End Date Javad Donato MD [address] [place] [address] PCP - ACO Reach 11/19/22 Javad Donato MD [address] [place] [address] PCP - General Internal Medicine 01/05/23 Cloth Printer Helper Relationship Specialty Start Date End Date Javad Donato MD [address] [place] [address] PCP - ACO Reach 11/19/22 Javad Donato MD [address] [place] [address] PCP - General Internal Medicine 01/05/23 Cloth Printer Helper Relationship Specialty Start Date End Date Javad Donato MD [address] [place] [address] PCP - ACO Reach 11/19/22 Javad Donato MD [address] [place] [address] PCP - General Internal Medicine 01/05/23 Cloth Printer Helper Relationship Specialty Start Date End Date Javad Donato MD [address] [place] [address] PCP - ACO Reach 11/19/22 Javad Donato MD [address] [place] [address] PCP - General Internal Medicine 01/05/23 Cloth Printer Helper Relationship Specialty Start Date End Date Javad Donato MD [address] [place] [address] PCP - ACO Reach 11/19/22 Javad Donato MD [address] [place] [address] PCP - General Internal Medicine 01/05/23 Cloth Printer Helper Relationship Specialty Start Date End Date Javad Donato MD [address] [place] [address] PCP - ACO Reach 11/19/22 Javad Donato MD [address] [place] [address] PCP - General Internal Medicine 01/05/23 Cloth Printer Helper Relationship Specialty Start Date End Date Javad Donato MD [address] [place] [address] PCP - ACO Reach 11/19/22 Javad Donato MD [address] [place] [address] PCP - General Internal Medicine 01/05/23WednesdayMichelle LPN [address] [place] [address] Licensed Practical Nurse Family Medicine 05/08/24 Cloth Printer Helper Relationship Specialty Start Date End Date Javad Donato MD [address] [place] [address] PCP - ACO Reach 11/19/22 Javad Donato MD [address] [place] [address] PCP - General Internal Medicine 01/05/23Wednesday, GLENDA MartinezN [address] [place] [address] Licensed Practical Nurse Family Medicine 05/08/24 Cloth Printer Helper Relationship Specialty Start Date End Date Javad Donato MD [address] [place] [address] PCP - ACO Reach 11/19/22 Javad Donato MD [address] [place] [address] PCP - General Internal Medicine 01/05/23WednesdayMichelle LPN [address] [place] [address] Licensed Practical Nurse Family Medicine 05/08/24 05/16/24 Cloth Printer Helper Relationship Specialty Start Date End Date Javad Donato MD [address] [place] [address] PCP - ACO Reach 11/19/22 Javad Donato MD [address] [place] [address] PCP - General Internal Medicine 01/05/23WednesdayMichelle LPN [address] [place] [address] Licensed Practical Nurse Family Medicine 05/08/24 05/16/24 Cloth Printer Helper Relationship Specialty Start Date End Date Javad Donato MD [address] [place] [address] PCP - ACO Reach 11/19/22 Javad Donato MD [address] [place] [address] PCP - General Internal Medicine 01/05/23WednesdayMichelle LPN [address] [place] [address] Licensed Practical Nurse Family Medicine 05/08/24 05/16/24 Cloth Printer Helper Relationship Specialty Start Date End Date Javad Donato MD [address] [place] [address] PCP - ACO Reach 11/19/22 Javad Donato MD [address] [place] [address] PCP - General Internal Medicine 01/05/23 Cloth Printer Helper Relationship Specialty Start Date End Date Javad Doanto MD [address] [place] [address] PCP - ACO Reach 11/19/22 Javad Donato MD [address] [place] [address] PCP - General Internal Medicine 01/05/23 Cloth Printer Helper Relationship Specialty Start Date End Date Javad Donato MD [address] [place] [address] PCP - ACO Reach 11/19/22 Javad Donato MD [address] [place] [address] PCP - General Internal Medicine 01/05/23 Cloth Printer Helper Relationship Specialty Start Date End Date Javad Donato MD [address] [place] [address] PCP - ACO Reach 11/19/22 Javad Donato MD [address] [place] [address] PCP - General Internal Medicine 01/05/23 Cloth Printer Helper Relationship Specialty Start Date End Date Javad Donato MD [address] [place] [address] PCP - ACO Reach 11/19/22 Javad Donato MD [address] [place] [address] PCP - General Internal Medicine 01/05/23 Cloth Printer Helper Relationship Specialty Start Date End Date Javad Donato MD [address] [place] [address] PCP - ACO Reach 11/19/22 Javad Donato MD [address] [place] [address] PCP - General Internal Medicine 01/05/23 Cloth Printer Helper Relationship Specialty Start Date End Date Javad Donato MD [address] [place] [address] PCP - ACO Reach 11/19/22 Javad Donato MD [address] [place] [address] PCP - General Internal Medicine 01/05/23 Cloth Printer Helper Relationship Specialty Start Date End Date Javad Donato MD [address] [place] [address] PCP - ACO Reach 11/19/22 Javad Donato MD [address] [place] [address] PCP - General Internal Medicine 01/05/23 Cloth Printer Helper Relationship Specialty Start Date End Date Javad Donato MD [address] [place] [address] PCP - ACO Reach 11/19/22 Javad Donato MD [address] [place] [address] PCP - General Internal Medicine 01/05/23 Cloth Printer Helper Relationship Specialty Start Date End Date Javad Donato MD [address] [place] [address] PCP - ACO Reach 11/19/22 Javad Donato MD [address] [place] [address] PCP - General Internal Medicine 01/05/23 Cloth Printer Helper Relationship Specialty Start Date End Date Javad Donato MD [address] [place] [address] PCP - ACO Reach 11/19/22 Javad Donato MD [address] [place] [address] PCP - General Internal Medicine 01/05/23 Cloth Printer Helper Relationship Specialty Start Date End Date Javad Donato MD [address] [place] [address] PCP - General Internal Medicine 06/15/17 Cloth Printer Helper Relationship Specialty Start Date End Date Javad Donato MD [address] [place] [address] PCP - General Internal Medicine 06/15/17 Cloth Printer Helper Relationship Specialty Start Date End Date Javad Donato MD [address] [place] [address] PCP - ACO Reach 11/19/22 Javad Donato MD [address] [place] [address] PCP - General Internal Medicine 01/05/23 Cloth Printer Helper Relationship Specialty Start Date End Date Javad Donato MD [address] [facility] [address] [place] [address] PCP - ACO Reach 11/19/22 Javad Donato MD [address] [facility] [address] [place] [address] PCP - General Internal Medicine 01/05/23 Cloth Printer Helper Relationship Specialty Start Date End Date Javad Donato MD [address] [facility] [address] [place] [address] PCP - ACO Reach 11/19/22 Javad Donato MD [address] [facility] [address] [place] [address] PCP - General Internal Medicine 01/05/23 (unrecognized sect ion and content) No Status Records FoundNo Status Records FoundNo Status Records FoundNo Status Records FoundNo Status Records FoundNo Status Records FoundNo Status Records FoundNo Status Records FoundNo Status Records FoundNo Status Records Found INFORMATION SOURCE (unrecogn ized section and content) DATE CREATED AUTHOR 05/02/2022 [facility] DATE CREATED AUTHOR AUTHOR'S ORGANIZ ATION 12/04/2022 [facility] DATE CREATED AUTHOR AUTHOR'S ORGANIZ ATION 01/13/2023 [facility] DATE CREATED AUTHOR AUTHOR'S ORGANIZ ATION 02/13/2023 [facility] DATE CREATED AUTHOR AUTHOR'S ORGANIZ ATION 04/17/2023 [facility] DATE CREATED AUTHOR AUTHOR'S ORGANIZ ATION 05/05/2024 [facility] DATE CREATED AUTHOR AUTHOR'S ORGANIZ ATION 06/18/2024 [facility] DATE CREATED AUTHOR AUTHOR'S ORGANIZ ATION 11/30/2024 [facility] DATE CREATED AUTHOR AUTHOR'S ORGANIZ ATION 02/06/2025 [facility] DATE CREATED AUTHOR AUTHOR'S ORGANIZ ATION 02/24/2025 [facility] Goals (unrecognized section and content) Goals may be documented in a n alternate section Source Comments (unrecognize d section and content) In the event this informatio n is protected by the Federal Confidentiality of Alcohol and Drug Abuse Patient Records regulations: The Federal rules restrict any use of the information to criminally investigate or prosecute any alcohol or drug abuse patient.[facility] Hospital[facility] the event this information is protected by the Federal Confidentiality of Alcohol and Drug Abuse Patient Records regulations: The Federal rules restrict any use of the information to criminally investigate or prosecute any alcohol or drug abuse patient.[facility] Reason for Visit (unrecogniz ed section and content) Reason Comments New Patient Specialty Diagnoses / Procedures Referred By Contac t Referred To Contact Physical Therapy Diagnoses Presence of artificial hip joint, right Procedures MS OFFICE/OUTPATIENT NEW HIGH MDM 60 MINUTES Charissa Blair, [address] [facility] [address] [place] [address] [address] [place] [address] Referral ID Status Reason Start Date Expiration Date Visits Requested Visits Authorized [id number] Authorized Specialty Services Required 07/08/2023 01/04/2024 30 [...] hip right hip degenerative joint disease Procedures MS TOTAL HIP ARTHROPLASTY REPLACEMENT TOTAL JOINT HIP Charissa Blair, DO [address] [facility] [address] [place] [address] Referral ID Status Reason Start Date Expiration Date Visits Re quested Visits Authorized [id number] 1 1 Reason Comments Hypertension Results Labs [...] BE BASED ON THE PRIMARY CLINICAL RECORDS. [employer] provides no warranty or guarantee of the accuracy or completeness of information in this document.
[2025-04-09 07:54] VITALS: BP 154/83; PULSE 84; TEMP 36.2; O2SAT 96
[2025-04-09 08:35] VITALS: PULSE 90; O2SAT 95
[2025-04-09 08:36] VITALS: BP 140/73
[2025-04-09] MEDS: IOHEXOL 240 MG/ML - 10 ML VIAL 24 MG INJ (08:36)
[2025-04-09] MEDS: BUPIVACAINE HCL 0.25% PF 25 MG/10 ML VIAL 2 ML INJ (08:36)
[2025-04-09] MEDS: LIDOCAINE HCL 2% 400 MG/20 ML MDV INJ (08:36)
[2025-04-09 08:37] VITALS: BP 151/82; PULSE 80; O2SAT 95
[2025-04-09] MEDS: METHYLPREDNISOLONE ACETATE 40 MG/ML VIAL INJ (08:37)
--- NOTE | 2025-04-09 08:38 | W.PM.PROCNOT ---
Date of procedure: 04/09/25 Pre-op diagnosis: Pain due to left sacroiliitis Post-op diagnosis: same as pre-op Procedure: Procedure: Left sacroiliac joint injection Medications: Bupivacaine 0.25% 4cc, depomedrol 40mg After informed consent was obtained, the patient was brought to the medical procedure unit and placed in the prone position, when a timeout was completed verifying correct patient, procedure, site, positioning, implant, and/or special equipment.? The skin overlying the area was prepped and draped in standard sterile fashion using alcohol.? A 25-gauge needle was inserted towards the left sacroiliac joint under direct fluoroscopic imaging.? Needle tip was advanced until the joint was encountered.? We instilled a total of 2 mL of solution.? Postoperatively needles were removed.? The patient tolerated the procedure well without complication.? The patient reported reduction in pain symptoms postoperatively. Anesthesia: Local Surgeon: Lidia Fletcher Pathology: none sent Condition: stable Disposition: no change
== END 2025-04-09 08:41 | disposition home or self-care (01) ==
PROVIDERS: PCP Internal Medicine; Visit Provider Anesthesiology
DX: M46.1 Sacroiliitis, not elsewhere classified (principal); E11.8 Type 2 diabetes mellitus with unspecified complications
CPT/HCPCS: 27096; 36415; 82948; J0665; J1010; Q9966

== ENCOUNTER 2025-04-18 08:04 | Outpatient (OUT) | payer MEDICARE, OTHER, SELFPAY ==
--- OUTSIDE RECORDS SUMMARY | 2025-04-18 08:06 | XMS_ITS | Clinical Summary ---
Author Organization [place] [facility] Address [id number] [address] [place] [address] Care Team Providers Care Boiler Fitter Name Role Phone Javad Donato MD Primary Care Provider [phone] Allergies Active AllergyReactionsCriticalityNoted DateCommentsCarvedilolDizzinessLow 06/29/2022 Severe vertigo Medications MedicationSigDispense QuantityRefillsLast FilledStart DateEnd DateStatus tamsulosin (FLOMAX) 0.4 mg capsule Take 1 capsule (0.4 mg total) by mouth in the morning and 1 capsule (0.4 mg total) before bedtime.Active meloxicam (MOBIC) 7.5 mg tablet Take 1 tablet (7.5 mg total) by mouth in the morning.Active HYDROcodone-acetaminophen (NORCO) 5-325 mg per tablet Take 1 tablet by mouth every 6 (six) hours as needed for pain.Active irbesartan-hydroCHLOROthiazide (AVALIDE) 150-12.5 mg per tablet Take 1 tablet by mouth in the morning.02/08/2023ctive sildenafiL (VIAGRA) 100 mg tablet Take 1 tablet (100 mg total) by mouth as needed.Active solifenacin (VESICARE) 10 mg tablet Take 1 tablet (10 mg total) by mouth in the morning.09/30/2022ctive finasteride (PROSCAR) 5 mg tablet Take 1 tablet (5 mg total) by mouth in the morning.07/29/2022ctive cholecalciferol 1,000 units tablet Take 1 tablet (1,000 Units total) by mouth in the morning.Active folic acid/multivit-min/lutein (CENTRUM SILVER ORAL) Take 1 tablet by mouth in the morning.Active BEE POLLEN ORAL Take 1 tablet by mouth in the morning.Active vitamin B complex (B COMPLEX 1 ORAL) Take 1 tablet by mouth in the morning.Active ascorbic acid (VITAMIN C) 500 mg tablet Take 1 tablet (500 mg total) by mouth in the morning.Active magnesium 200 mg tablet Take 1 tablet by mouth in the morning.Active selenium 200 mcg capsule Take 1 capsule (200 mcg total) by mouth in the morning.Active zinc gluconate 50 mg tablet Take 1 tablet (50 mg total) by mouth in the morning.Active tiZANidine (ZANAFLEX) 4 mg tablet Take 1 tablet (4 mg total) by mouth every 6 (six) hours as needed for muscle spasms.Active Active Problems ProblemNoted DateDiagnosed DatePrimary localized osteoarthritis of left hip 05/03/2024rimary osteoarthritis of right hip07/06/2023 Social History Tobacco UseTypesPacks/DayYears UsedDateSmoking Tobacco: [id number] - 1975Smokeless Tobacco: Never Tobacco Cessation:Counseling Given: Not Answered Comments:1975 quit smoking Alcohol UseStandard Drinks/WeekCommentsYes0 (1 standard drink = 0.6 oz pure alcohol)[facility] UtilitiesAnswerDate RecordedIn the past 12 months has the [employer], [employer], oil, or water [employer] threatened to shut off services in your home?No05/03/2024RAPARE - TransportationAnswerDate RecordedIn the past 12 months, has lack of transportation kept you from medical appointments or from getting medications?No05/03/2024In the past 12 months, has lack of transportation kept you from meetings, work, or from getting things needed for daily living?No05/03/2024Housing InstabilityAnswerDate RecordedAre you worried or concerned that in the next two months you may not have stable housing that you own, rent or stay in as a part of a household?No05/03/2024hildcareAnswer Date HpivxlgpKzgzfncclTquyqcw63/12/2019EmploymentAnswerDate RecordedEmployment Icdeagh7812/07/2018Hunger ScreeningAnswerDate RecordedWithin the past 12 months we worried whether our food would run out before we got money to buy more.Never True05/03/2024Within the past 12 months the food we bought just didn't last and we didn't have money to get more.Never True4Purpose - LifeAnswerDate RecordedPurpose and direction in cxbxYstcpnf97/11/2021ex and Gender Information ValueDate RecordedSex Assigned at ZklamLtjw20/11/2023 2:34 PM ESTLegal SexMale 01/29/2015 11:22 PM EDTGender JjxublywDmax14/11/2023 2:34 PM ESTSexual BozzvsazsruUxvlsvie50/11/2023 2:34 PM EST Last Filed Vital Signs Vital SignReadingTime TakenCommentsBlood Lndkqbor734/7405/03/2024 10:35 AM EST Lkrrm404505/03/2024 10:35 AM XWZWizmlvbresy41.4 ??C (97.6 ??F)05/03/2024 10:35 AM ESTRespiratory Gtpm211207/03/2023 10:35 AM ESTOxygen Jspqfwktwl493%05/03/2024 10:35 AM ESTInhaled Oxygen Concentration--Zlsuyr266 kg (282 lb 3 oz)05/03/2024 6:37 AM JMDWljuaj507 cm (6' 0.84 )05/03/2024 6:37 AM ESTBody Mass Index37.4 05/03/2024 6:37 AM EST Plan of Treatment Health MaintenanceDue DateLast DoneCommentsDepression Mgeqpilez34/07/1966Adult BMI Follow Up Plan01/02/1972Zoster (Shingles) Vaccine (2 of 3)07/08/2015 05/13/2015bdominal Aortic Aneurysm (AAA) Kvhivu9001/01/2019Fall Risk Screening 2019Influenza Zbyuidm42/, 04/03/2022, 05/21/2020, Additional history existsAdult BMI Wronarxfv26Tobacco Wjrbbiazr814DTaP,Tdap and Td Vaccines (2 - Td or Tdap) Goals GoalPatient Goal TypeAssociated ProblemsRecent ProgressPatient-Stated?Author DC to home with [facility] Radha Pack, ROGELIO Note: Evaluation of progress towards goal: In progress: DC to home with [facility] and family support.Hopes to DC to home today. Autogenerated Goal Care PlanAutogenerated ProblemNoPotts, [employer] ImplantedTypeAreaManufacturerDevice IdentifierShelf Expiration DateModel / Serial / LotShell Actb 56mm Hip 4 Hl Clr Cd [place] G7 F Hmsphr - Sna - [id number] Implanted:Qty: 1 on 07/07/2023 by Amauri Blair, DO at [facility] ImplantRight: HipZimmer [id number] / NA / [id number] Actb 36mm F Vivacit-E Lum G7 Hip Strl Lf - [id number] Implanted:Qty: 1 on 07/07/2023 by Amauri Blair, DO at [facility] ImplantRight: HipZimmer [id number] / / [id number] Fem 129d 4 06/10 45.5mm Fitmore Protasul-64 Hip Rg - [id number] Implanted:Qty: 1 on 07/07/2023 by Amauri Blair, DO at [facility] ImplantRight: HipZimmer [id number] / / [id number] Actb 56mm Hip 4 Hl Clr Cd [place] G7 F Hmsphr - Sna - [id number] Implanted:Qty: 1 on 05/03/2024 by Amauri Blair, DO at [facility] ImplantLeft: HipZimmer [id number] / NA / [id number] Actb 36mm F Vivacit-E Lum G7 Hip Strl Lf - Sna - [id number] Implanted:Qty: 1 on 05/03/2024 by Amauri Blair DO at [facility] ImplantLeft: HipZimmer [id number] / NA / [id number] Fem 129d 4 06/10 45.5mm Fitmore Protasul-64 Hip Rgh - Sna - [id number] Implanted:Qty: 1 on 05/03/2024 by Amauri Blair DO at [facility] ImplantLeft: HipZimmer [id number] / NA / [id number] Fem 36mm +7mm 06/10 Xl Blx D Hip Actb - Sna - [id number] Implanted:Qty: 1 on 05/03/2024 by Amauri Blair DO at [facility] ImplantLeft: HipZimmer [id number] / NA / [id number] Biomet Femoral Head 36mm Implanted:Qty: 1 on 07/07/2023 by Amauri Blair DO at [facility] ImplantRight: HipZimmer [id number] / / [id number] Bn 30mm 6[address] St Actb Seven Trlg Strl Rpl [id number] - [id number] Implanted:Qty: 1 on 07/07/2023 by [facility] HipZimmer [id number] / / [id number] Bn 30mm 6[address] St Actb Seven Trlg Strl Rpl [id number] - [id number] Implanted:Qty: 1 on 07/07/2023 by Amauri Blair DO [facility]: HipZimmer [id number] / / [id number] Bn 30mm 6[address] St Actb Seven Trlg Strl Rpl [id number] - [id number] Implanted:Qty: 1 on 07/07/2023 by Amauri Blair DO [facility]: HipZimmer Nixfoa90/14/[id number] / / [id number] Bn 30mm 6[address] St Actb Seven Trlg Strl Rpl [id number] - Sna - [id number] Implanted:Qty: 1 on 05/03/2024 by Amauri Blair DO at [facility]: HipZimmer Jkqogj72/15/[id number] / NA / [id number] Bn 30mm 6[address] Actb Seven Trlg Strl Rpl [id number] - Sna - [id number] Implanted:Qty: 1 on 05/03/2024 by Amauri Blair DO [facility]: HipZimmer [id number] / NA / [id number] Additional Health Concerns Active ProblemsNoted DateDiagnosed DateAutogenerated Ubnhtyi0902/27/2025 Insurance * Guarantor: Lawson VelaAccount TypeRelation to PatientDate of BirthPhone Billing AddressPersonal/EuepxnBvet15/07/19542000 [facility] [address] [place] [id number] Advance Directives * Full Code (Latest Code Status on File) Date ActivatedDate TuiphvfiddpLgxfwdqa44/6/2024 7:48 AM05/03/2024 6:58 PM * Full Code Date ActivatedDate InactivatedComments07/06/2023 5:59 PM07/07/2023 4:47 PM Care Teams Team MemberRelationshipSpecialtyStart DateEnd Date Javad Donato MD [address] [facility], [address] [phone] PCP - GeneralInternal Skwjmvhi49/19/17
--- OUTSIDE RECORDS SUMMARY | 2025-04-18 08:06 | XMS_ITS | Clinical Summary ---
Author Organization [facility] Address [address] [place] [address] Care Team Providers Care Laundry Laborer Name Role Phone Javad Donato MD Unavailable [phone] Javad Donato MD Primary Care Provider [phone] Allergies Active AllergyReactionsCriticalityNoted OiblZsmzhakwElbtpkhnzg77/02/2023 Other Reaction(s): dizziness Medications MedicationSigDispense QuantityRefillsLast FilledStart DateEnd DateStatus ascorbic acid (Vitamin C) 500 MG chewable tablet 1 (one) time each day at the same time.Active B Complex Vitamins (vitamin B complex) tablet as directed OrallyActive cholecalciferol (Vitamin D3) 25 MCG (1000 UT) tablet 1 (one) time each day at the same time.Active cyanocobalamin (Vitamin B-12) 100 MCG tablet as directed OrallyActive finasteride (Proscar) 5 MG tablet Take 5 mg by mouth in the morning.10/21/2022ctive Multiple Vitamin (Multi Vitamin) tablet 1 (one) time each day at the same time.Active sildenafil (Viagra) 100 MG tablet 1 (one) time each day at the same time.Active solifenacin (VESIcare) 10 MG tablet 1 (one) time each day at the same time.Active tamsulosin (Flomax) 0.4 MG 24 hr capsule Take 0.4 mg by mouth in the morning and 0.4 mg before bedtime.08/21/2022ctive zinc gluconate 50 MG tablet 1 (one) time each day at the same time.Active magnesium 30 MG tablet Take 30 mg by mouth in the morning and 30 mg before bedtime.Active irbesartan-hydroCHLOROthiazide (Avalide) 150-12.5 MG tablet Indications:Benign essential hypertensionTake 1 tablet by mouth Daily 100 tablet 4Active HYDROcodone-acetaminophen (Paradis) 5-325 MG tablet Indications:Herniated lumbar disc without myelopathyTake 1 tablet by mouth every 6 (six) hours if needed for severe pain 40 tablet 5Active tiZANidine (Zanaflex) 4 MG tablet Indications:Herniated lumbar disc without myelopathyTake 1 tablet (4 mg) by mouth Daily 30 tablet 5Active Additional Information Patient taking differently:4 mg Oral Daily,PRN, Reported on 11/29/2024 clotrimazole-betamethasone (Lotrisone) cream Indications:Tinea pedis of both feetApply 1 application topically in the morning and 1 application before bedtime. 30 g 5Active amoxicillin (Amoxil) 500 MG tablet Indications:Status post right hip replacement4 tabs PO once 30-60 mins before procedure with food 4 tablet 5Active meloxicam (Mobic) 15 MG tablet Indications:Primary osteoarthritis of first carpometacarpal joint of left hand Take 1 tablet (15 mg) by mouth Daily Take with food 100 tablet 5Active Active Problems ProblemNoted DateDiagnosed DateLeft hip pain06/20/2024S/P total left hip ruejjhgjsqyn55/24/2024rimary osteoarthritis of left hip4Class 2 severe obesity due to excess calories with serious comorbidity and body mass index (BMI) of38.0 to 38.9 in adult01/21/2024Ganglion cyst of volar aspect of left wrist01/21/2024therosclerosis of aorta01/21/20247377Bymnzag75/07/2024ight hip pain 07/29/2023Status post total hip replacement, right07/29/2023IGT (impaired glucose tolerance)06/30/2023rimary osteoarthritis of right hip05/17/2023 Allergic jldniqsr97/17/2023enign essential lkwqvyhbfwtk06/17/2023enign prostatic hyperplasia with lower urinary tract zjktvevi08/17/2023arpal tunnel syndrome of right wrist01/11/2023aytime jwvcrdgjiv10/17/2023egenerative disc disease, imbupxdx50/17/2023astroesophageal reflux disease without esophagitis 01/11/2023Herniated lumbar disc without seujsnhrtz96/17/2023Lumbago with sciatica, left side01/11/2023Other chronic pain01/11/2023Other obstructive and reflux bgektszk83/17/2023rimary osteoarthritis of first carpometacarpal joint of left hand01/11/20230244Sybwzlb24/17/2023Umbilical hernia without obstruction and without oftnkfiw06/17/2023 Resolved Problems ProblemNoted DateDiagnosed DateResolved DateBody mass index (BMI) 37.0-37.9, adult/09/2024Elevated blood pressure reading in office with diagnosis of kzynmvgxvats15/17/202307/ Encounters DateTypeDepartmentCare DuznCmoxrxlpehc73/29/2025Refill [facility] [address] [place] [address] France Farah LPN Primary osteoarthritis of first carpometacarpal joint of left handfrom Last 3 Months Immunizations ImmunizationAdministration DatesNext DueInfluenza, High Dose Seasonal, Preservative Free04/03/2022Influenza, High-dose Seasonal, Quadrivalent, Preservative Free06/14/2024,05/17/2023,04/03/2022Influenza, Injectable, MDCK, preservative free05/03/2019Influenza, injectable, vhhmioejgkug34/24/2020, 06/07/2017Influenza, seasonal, intradermal, preservative free05/02/2018 Pneumococcal Conjugate PCV 13107/21/2019Pneumococcal Polysaccharide PPSV23 05/03/2019,05/03/2019RSV, recombinant, protein subunit RSVpreF, adjuvant reconstitu, 120mcg/0.5mL, PF (Arexvy)05/18/2023Tdap107/18/2022Zoster, live 05/13/2015 Family History Medical HistoryRelationNameCommentsHypertensionFatherCancerMotherLillian Auxter RelationNameStatusCommentsFatherDeceasedMotherLillian AuxterDeceased Social History Tobacco UseTypesPacks/DayYears UsedDateSmoking Tobacco: FormerCigarettesQuit: 09/27/1975Smokeless Tobacco: Never Tobacco Cessation:Counseling Given: Not Answered Comments:no way Alcohol UseStandard Drinks/WeekCommentsYes8 (1 standard drink = 0.6 oz pure alcohol)Social drinker with occasional drink at home.Humiliation, Afraid, Rape, and Kick questionnaireAnswerDate RecordedWithin the last year, have you been afraid of your partner or ex-partner?No05/10/2023Within the last year, have you been humiliated or emotionally abused in other ways by your partner or ex-partner?No05/10/2023Within the last year, have you been kicked, hit, slapped, or otherwise physically hurt by your partner or ex-partner?No05/10/2023Within the last year, have you been raped or forced to have any kind of sexual activity by your partner or ex-partner?No05/10/2023Social Connection and Isolation Panel AnswerDate RecordedIn a typical week, how many times do you talk on the phone with family, friends, or neighbors?Three times a week05/10/2023How often do you get together with friends or relatives?Once a week05/10/2023How often do you attend islam or mandaeism services?1 to 4 times per year05/10/2023o you belong to any clubs or organizations such as islam groups, unions, fraternal or athletic groups, or school groups?Yes05/10/2023How often do you attend meetings of the clubs or organizations you belong to?More than 4 times per year05/10/2023 Are you , , , , never , or living with a partner?Living with spvvwvt6805/10/2023UDIT-CAnswerDate RecordedQ1: How often do you have a drink containing alcohol?2-3 times a week05/10/2023Q2: How many drinks containing alcohol do you have on a typical day when you are drinking?1 or Q3: How often do you have six or more drinks on one occasion?Never 05/10/2023Overall Financial Resource Strain (CARDIA)AnswerDate RecordedHow hard is it for you to pay for the very basics like food, housing, medical care, and heating?Somewhat hard05/10/2023HQ-2AnswerDate RecordedPatient Health Questionnaire-2 Rhzwz167[facility] [place] [facility] Occup[facility] Health - Occupational Stress QuestionnaireAnswerDate RecordedDo you feel stress - tense, restless, nervous, or anxious, or unable to sleep at night because yourmind is troubled all the time - these days?To some lehlvn7105/10/2023Exercise Vital Sign AnswerDate RecordedOn average, how many days per week do you engage in moderate to strenuous exercise (like a brisk walk)?0 days05/10/2023On average, how many minutes do you engage in exercise at this level?30 min05/10/2023Hunger Vital SignAnswerDate RecordedWithin the past 12 months, you worried that your food would run out before you got the money to buymore.Never true05/10/2023Within the past 12 months, the food you bought just didn't last and you didn't have money to get more.Never true05/10/2023RAPARE - TransportationAnswerDate RecordedIn the past 12 months, has lack of transportation kept you from medical appointments or from getting medications?No05/10/2023In the past 12 months, has lack of transportation kept you from meetings, work, or from getting things needed for daily living?No05/10/2023Housing Stability Vital SignAnswerDate RecordedIn the last 12 months, was there a time when you were not able to pay the mortgage or rent on time?No05/10/2023In the last 12 months, how many places have you lived?In the last 12 months, was there a time when you did not have a steady place to sleep or slept in indian trailelter (including now)?No 05/10/2023Sex and Gender InformationValueDate RecordedSex Assigned at BirthMale 05/10/2023 10:38 AM ESTLegal BmfZybv1209/09/2022 8:11 PM EDTGender IdentityMale 05/10/2023 10:38 AM ESTSexual SnrrimyqvfuBvrgtlnd57/13/2023 10:38 AM EST Last Filed Vital Signs Vital SignReadingTime TakenCommentsBlood Uaodiukx021/8006 11:33 AM EDT Quchx6064 11:33 AM WOUSgaqmklqjce18.4 ??C (97.5 ??F)07/27/2024 10:26 AM ESTRespiratory Fkyw309411/29/2024 11:33 AM EDTOxygen Iinfhkrczo31%11/29/2024 11:33 AM EDTInhaled Oxygen Concentration--Nqgdsh294 kg (291 lb)11/29/2024 11:33 AM EDT Grlqgr388.4 cm (6' 1 )11/29/2024 11:33 AM EDTBody Mass Index38.39011/29/2024 11:33 AM EDT Plan of Treatment DateTypeDepartmentCare Team (Latest Contact Info)Anodirnwgkt03/30/2025 9:00 AM EDTOffice Visit [facility] [address] [facility] [address] [place] [phone] Javad Donato MD [address] [facility] [address] [place] [address] 04/30/2025 8:00 AM ESTOffice Visit [facility] [address] [place] [address] Jose Robins, BONDING SUPERVISOR [address] [place], [place] [id number] Health MaintenanceDue DateLast DoneCommentsCT Dnyldtosaoeb1954FIT-DNA 1954FIT1954FOBT1955 5092Mnzurmuwbjbmx1954Influenza Vaccine (#1)/, 05/17/2023, 04/03/2022, Additional history exists Medicare Annual Wellness (AWV)5108/15/2023, 05/17/2023, 05/11/2022 Bsscrdzqjbz29Colorectal Cancer Jjluwipmy76/15/2028Pneumococcal Vaccine: 65+ NvnhfQwjbevxuy89/24/2020, 05/03/2019, 05/03/2019 Procedures Procedure NamePriorityDate/TimeAssociated DiagnosisCommentsCOLONOSCOPYRoutine 07/12/2017 12:00 PM EST from Last 3 Months or Most Recently Relevant to Health Maintenance Results * Colonoscopy (07/12/2017 12:00 PM EST)Anatomical RegionLateralityModality EndoscopySpecimen (Source)Anatomical Location / LateralityCollection Method / VolumeCollection TimeReceived Time07/12/2017 12:00 PM EST Narrative 07/12/2017 12:00 PM EST PERFORMED AT [facility] [place] LOCATION:[id number] internal hemorrhoids, diverticulosis Procedure Note CONVERSION, GENERIC - 11/11/2022 PERFORMED AT [facility] [place] LOCATION:[id number] internal hemorrhoids, diverticulosis Authorizing ProviderResult TypeResult StatusDaely Donato MDENDOSCOPY PROCEDURE ORDERABLESFinal Result from Last 3 Months or Most Recently Relevant to Health Maintenance Insurance * Guarantor: Lawson Velacomike TypeRelation to PatientDate of BirthPhone Billing AddressPersonal/AowomwFfzq1955 [address] [address] Care Teams Team MemberRelationshipSpecialtyStart DateEnd Javad Donato MD [address] [facility] [address] [place] [address] PCP - [facility]11/19/22 Javad Donato MD [address] [facility] [address] [place] [address] [facility]01/05/23
--- OUTSIDE RECORDS SUMMARY | 2025-04-18 08:07 | XMS_ITS | Clinical Summary ---
Author Organization [facility] Address [address] [place] [address] Care Team Providers Care Head Rose Grower Name Role Phone Unavailable Primary Care Provider Unavailabl e Allergies No known active allergies Medications MedicationSigDispense QuantityRefillsLast FilledStart DateEnd DateStatus tamsulosin (FLOMAX) 0.4 mg Take 0.4 mg by mouth.07/29/2022ctive finasteride (PROSCAR) 5 mg tablet Take 5 mg by mouth.07/29/2022ctive solifenacin 10 mg tablet 1 (one) time each day at the same time.09/30/2022ctive meloxicam (MOBIC) 7.5 mg tablet Take 7.5 mg by mouth.Active tiZANidine (ZANAFLEX) 4 mg tablet 1 tablet as needed Orally at bedtime for 30 days04/03/2022ctive Irbesartan-hydroCHLOROthiazide 150-12.5 mg per tablet Take by mouth.02/08/2023ctive HYDROcodone-acetaminophen (NORCO) 5-325 mg per tablet Active Social History Tobacco UseTypesPacks/DayYears UsedDateSmoking Tobacco: FormerCigarettes Tobacco Cessation:Counseling Given: Not Answered PHQ-2AnswerDate RecordedPHQ-2 jzcnu462rea Deprivation IndexAnswerDate RecordedNational Score (1-100), lower number is lower scma049104/13/2023State Score (1-10), lower number is lower azbo949/17/2023Data from: https://www.neighborhoodatlas.[facility]/. Last address used for [address]/13/2023Sex and Gender InformationValueDate RecordedSex Assigned at HselzQsxl03/08/2023 1:22 PM EDTLegal SepCwvf8701/28/2023 10:21 AM EDTGender QiftpjciHref60/08/2023 1:22 PM EDTSexual OrientationStraight 02/02/2023 1:22 PM EDT Plan of Treatment Health MaintenanceDue DateLast DoneCommentsAbdominal Aortic Aneurysm Screening 4Anxiety Fmylwtpmy81/07/1972Depression Geznwcdul25/07/1972Hepatitis C Nwtusvbku39/07/1972DTaP,Tdap,Td Vaccine (1 - Tdap)1973Lipid Screening 1989CT Jfbnblzbfvie24/07/1999Cologuard (FIT-DNA)1999Colonoscopy 1999Colorectal Cancer Yjbyvlgnb51/07/1999Diabetes Rwsjbcymz50/07/1999Fecal Occult Blood01/01/19992112Hpbbyzmxkokri33/07/1999Shingrix Vaccine (2 of 3)07/08/2015 05/13/2015dvance Directive Vlpoefpsiq25/01/2025ovid-19 Vaccine (2024- season)2025Influenza Vaccine (#1)/12/2021, 05/21/2020, 04/10/2020, Additional history existsRSV Vaccine (1 - 1-dose 75+ series) 2029Pneumococcal Vaccine: 50+Xmxrayesi97/24/2020, 05/03/2019 Insurance * Guarantor: Lawson Vela GAccomike TypeRelation to PatientDate of BirthPhone Billing AddressPersonal/NgewluVdop1955 [address] [place] [address]
--- OUTSIDE RECORDS SUMMARY | 2025-04-18 08:09 | XMS_ITS | CCD ---
Author Organization [facility] Care Team Providers [employer] Foreperson Name Role Phone JAVAD DONATO Primary Care [...] Unavailable JAVAD DONATO Primary Care Unavailable Wednesday UROLOGY SURGEON, Michelle Unavailable Wednesday UROLOGY SURGEON, Michelle Unavailable Javad Donato MD Primary Care Provider JEANNA MENDIOLA Attending Unavailable HERNÁNDEZJOSE Referring Unavailable HEMMERALMA Attending Unavailable HERNÁNDEZ, JOSE West Attending Unavailable JAVAD DONATO Attending Unavailable HERNÁNDEZ, JOSE West Attending Unavailable HERNÁNDEZ, JOSE West Referring Unavailable HEMMER, ALMA Gaona Attending Unavailable HERNÁNDEZ, JOSE West Attending Unavailable HERNÁNDEZ, JOSE West Referring Unavailable ROSSY, CHARISSA Rose Attending Unavailable HEMMER, ALMA Gaona Attending Unavailable ROSSY, CHARISSA Rose Attending Unavailable HEMMER, ALMA Gaona Attending Unavailable HERNÁNDEZ, JOSE West Attending Unavailable ROSSY, CHARISSA Rose Referring Unavailable JAVAD DONATO Attending Unavailable ROSSY, CHARISSA Rose Attending Unavailable ROSSY, CHARISSA Rose Attending Unavailable HERNÁNDEZ, JOSE West Attending Unavailable HERNÁNDEZ, JOSE T Referring Unavailable JAVAD DONATO Attending Unavailable NAGI PLATA Attending Unavailable HERNÁNDEZ, JOSE T Referring Unavailable JAVAD DONATO Referring Unavailable KAILEY GOLDMAN Attending Unavailable HERNÁNDEZ, JOSE T Referring Unavailable JEANNA MENDIOLA Attending Unavailable HERNÁNDEZ, JOSE West Referring Unavailable HERNÁNDEZ, JOSE West Attending Unavailable JEANNA MENDIOLA Attending Unavailable HERNÁNDEZ, JOSE T Referring Unavailable YOSEF CHEEMA Referring Unavailable JEANNA MENDIOLA Attending Unavailable HERNÁNDEZ, JOSE West Referring Unavailable JEANNA MENDIOLA Attending Unavailable HERNÁNDEZ, JOSE Brett Referring Unavailable JEANNA MENDIOLA Attending Unavailable HERNÁNDEZ, JOSE T Referring Unavailable Mac SANTIAGO Attending Unavailable Mac SANTIAGO Attending Unavailable Mac SANTIAGO Attending Unavailable Justine BAER, Lidia Koch Attending Unavailable Justine BAER, Lidia Koch Attending Unavailable Justine BAER, Lidia Koch Attending Unavailable Justine BAER, Lidia Koch Attending Unavailable Allergies Allergy ClassificationReported Allergen(s)Allergy TypeDate of OnsetReaction(s) Facility (20 sources)carvedilol; Translations: [CARVEDILOL]Drug [id number] [facility] Medications Current Medications MedicationDrug Class(es)DatesSig (Normalized)Sig (Original)acetaminophen 500 mg oral tablet (5 sources)Start: 02-07-2024 End: 54-21-8325bxnb 1 tablet by mouth every six hoursTylenol Extra Strength 500 mg oral tablet See Instructions, tab(s) mg Oral q6hr, Refills(s) 0 StartDate: 02/07/24 Status: Ordered Repeat number: 1acetaminophen 325 mg / HYDROcodone bitartrate 5 mg oral tablet (20 sources)Opioid AgonistStart: 02-07-2024 End: 81-63-0850vkow 1 tablet by mouth every six hours for painHYDROcodone- acetaminophen ([place]) 5-325 MG tablet Indications: Herniated lumbar disc without myelopathy Take 1 tablet by mouth every 6 (six) hours if needed for severe pain 40 tablet 10/25/2024 Active End: 95-26-6813FTJOZdaokqp-acetaminophen ([place]) 5-325 MG tablet 04/12/2024 Discontinued (Reorder)HYDROcodone-acetaminophen ([place]) 5-325 mg per tablet amoxicillin 500 mg oral tablet (20 sources)Penicillin-class AntibacterialStart: 53-37-4588eecl 4 tablets by mouth once at mealtimeamoxicillin (Amoxil) 500 MG tablet Indications: Status post right hip replacement 4 tabs PO once 30-60 mins before procedure with food 4 tablet 3 11/29/2024 ActiveStart: 70-73-2229jfxj 4 tablets by mouth once at mealtimeamoxicillin (Amoxil) 500 MG tablet Indications: Status post right hip replacement 4 tabs PO once 30-60 mins before procedure with food 4 tablet 3 11/29/2024 ActiveStart: 07-27-2024 End: 09-58-3749gkxz 1 tablet by mouth in the morningamoxicillin (Amoxil) 875 MG tablet Indications: Acute non-recurrent frontal sinusitis Take 1 tablet(875 mg) by mouth in the morning and 1 tablet (875 mg) before bedtime. Do all this for 7 days. 14 tablet 07/27/2024 08/03/2024 ActiveStart: 01-24-2024 End: 27-86-2150kjzk 4 tablets by mouth once at mealtimeamoxicillin (Amoxil) 500 MG tablet Indications: Status post right hip replacement 4 tabs PO once 30-60 mins before procedure with food 4 tablet 3 04/12/2024 10/25/2024 Discontinued (Therapy completed)Ascorbic Acid (20 sources)Vitamin CStart: 31-73-8972Rukvlzu C Daily, Refills(s) 0 Start Date: 02/16/22 Status: Ordered Repeat number: 1Start: 05-40-7064Qoaqbxi C Daily, Refills(s) 0 Start Date: 02/16/22 Status: Orderedascorbic acid (Vitamin C) 500 MG chewable tablet 1 (one) time each day at the same time. Activetake 1 tablet by mouth in the morningascorbic acid (VITAMIN C) 500 mg tablet Take 1 tablet (500 mg total) by mouth in the morning. Activeazithromycin 250 mg oral tablet (2 sources)Macrolide AntimicrobialStart: 02-17-2024 End: 89-57-5385nfnu 2 tablets by mouth once daily, then take 1 tablet by mouth once dailyazithromycin (Zithromax) 250 MG tablet Indications: Acute pharyngitis, unspecified etiology Take 2 tablets (500 mg) by mouth Daily for 1 day, THEN 1 tablet (250 mg) Daily for 4 days. 6 tablet 02/17/2024 02/21/2024 ActiveB Complex Vitamins (vitamin B complex) tablet (20 sources)B Complex Vitamins (vitamin B complex) tablet as directed Orally ActiveB Complex Vitamins (vitamin B complex) tablet as directed Orally 0 Active BEE POLLEN ORAL (2 sources)take 1 tablet by mouth in the morningBEE POLLEN ORAL Take 1 tablet by mouth in the morning. Activetake 1 tablet by mouth in the morningBEE POLLEN ORAL Take 1 tablet by mouth in the morning. 0betamethasone 0.5 mg/ml / clotrimazole 10 mg/ml topical cream (6 sources)Azole Antifungal, CorticosteroidStart: 10-96-2136mdrctsoygngz- betamethasone (Lotrisone) cream Indications: Tinea pedis of both feet Apply 1 application topically in the morning and 1 application before bedtime. 30 g 2 11/29/2024 ActiveStart: 90-76-7725ywxtzhoavfso-betamethasone (Lotrisone) cream Indications: Tinea pedis of both feet Apply 1 application topically in the morning and 1 application before bedtime. 30 g 2 11/29/2024 ActiveStart: 79-79-3114Tvllnwstu 0.05%-1% Cream Topical, BID, Refill(s) 0 Start Date: 06/14/20 Status: Ordered End: 52-74-6592unrgnduutefd-betamethasone (Lotrisone) cream Apply 1 application topically in the morning and 1 application before bedtime. 11/29/2024 Discontinued (Reorder)cephalexin 500 mg oral capsule (2 sources)Cephalosporin AntibacterialStart: 06-30-2023 End: 88-49-9418nxac 1 capsule by mouth three times dailyCEPHalexin (KEFLEX) 500 mg capsule Take 1 capsule (500 mg total) by mouth 3 (three) times a day. 0 0 06/30/2023 07/10/2023 ActiveCholecalciferol (20 sources)Vitamin DStart: 19-18-7907inisiogcwyybeyv 1,250 mcg, Daily, Refills(s) 0 Start Date: 02/07/24 Status: Ordered Repeat number: 1Start: 79-09-5083iaxtxpkpiuwbnxv 1,250 mcg, Daily, Refills(s) 0 Start Date: 02/07/24 Status: Orderedcholecalciferol (Vitamin D3) 25 MCG (1000 UT) tablet 1 (one) time each day at the same time. Activetake 1 tablet by mouth in the morning cholecalciferol 1,000 units tablet Take 1 tablet (1,000 Units total) by mouth in the morning. Activeclindamycin 300 mg oral capsule (2 sources)Lincosamide AntibacterialStart: 71-64-9763zrpq 2 capsules by mouth every eight hoursStart: 41-30-9971lmlz 2 capsules by mouth every eight hours ferrous sulfate 325 mg delayed release oral tablet (15 sources)Start: 04-06-2024 End: 91-22-0019olvd 1 tablet by mouth at mealtimeferrous sulfate (Fe Tabs) 325 (65 Fe) MG EC tablet Indications: Arthritis of left hip Take 1 tablet(325 mg) by mouth in the morning. Take with meals. Do not crush, chew, or split.. 30 tablet 04/06/2024 05/06/2024 ActiveStart: 06-08-2023 End: 95-39-7627yczd 1 tablet by mouth at mealtimeferrous sulfate (Fe Tabs) 325 (65 Fe) MG EC tablet Indications: Arthritis of right hip Take 1 tablet (325 mg) by mouth in the morning. Take with meals. Do not crush, chew, or split.. 30 tablet 1 06/08/2023 08/07/2023 Activefinasteride 5 mg oral tablet (20 sources)5-alpha Reductase InhibitorStart: 20-51-8981kdlp 1 tablet by mouth once dailyfinasteride 5 mg Tab 5 mg = 1 tab(s), Oral, Daily, # 90 tab(s), Refills(s) 3, Pharmacy: [facility] [id number], 186, cm, 02/05/25 10:36:00 EDT, Height/Length Dosing, 130.4, kg, 02/05/25 10:36:00 EDT, Weight Dosing Start Date: 02/05/25 Status: Ordered Quantity: 90.0 Unit: tab(s) Repeat number: 4 Start: 29-96-6698ksmf 1 tablet by mouth in the morningfinasteride (Proscar) 5 MG tablet Take 5 mg by mouth in the morning. 10/21/2022 ActiveComment on above: Take 5 mg by mouth.Diflucan (2 sources)Azole AntifungalStart: 06-09-4247Afglxaak Refills(s) 0 Start Date: 06/14/20 Status: Orderedfolic acid/multivit-min/lutein (CENTRUM SILVER ORAL) (3 sources)take 1 tablet by mouth once in the morningfolic acid/multivit- min/lutein (CENTRUM SILVER ORAL) Take 1 tablet by mouth in the morning. Active take 1 tablet by mouth once in the morningfolic acid/multivit-min/lutein (CENTRUM SILVER ORAL) Take 1 tablet by mouth in the morning. 0 Activetake 1 tablet by mouth once in the morningfolic acid/multivit-min/lutein (CENTRUM SILVER ORAL) Take 1 tablet by mouth in the morning. 0hydroCHLOROthiazide 12.5 mg / irbesartan 150 mg oral tablet (20 sources)Thiazide Diuretic, Angiotensin 2 Receptor BlockerStart: 02-08-2023 take 1 tablet by mouth once in the morningirbesartan-hydroCHLOROthiazide (AVALIDE) 150-12.5 mg per tablet Take 1 tablet by mouth in the morning. 02/08/2023 ActiveStart: 92-76-5290vgbq 1 tablet by mouth in the morning irbesartan-hydroCHLOROthiazide (Avalide) 150-12.5 MG tablet Indications: Benign essential hypertension (CMS/HCC) Take 1 tablet by mouth in the morning. 100 tablet 2 02/08/2023 ActiveStart: 26-44-6593ypef 1 tablet by mouth once daily irbesartan-hydroCHLOROthiazide (Avalide) 150-12.5 MG tablet Indications: Benign essential hypertension (CMS/HCC) Take 1 tablet by mouth Daily 100 tablet 3 06/23/2024 Activetake 1 tablet by mouth every twenty-four hourstake 1 tablet by mouth every twenty-four hoursIrbesartan-hydroCHLOROthiazide 150-12.5 MG 1 tablet Orally Once a day ActiveComment on above:Take by mouth.lidocaine 0.05 mg/mg medicated patch (2 sources)Antiarrhythmic, Amide Local AnestheticStart: 45-60-1830Uchns: 30-05-4158Uvugipvfy 5 % 1 patch remove after 12 hours Externally Once a day for 30 days Nov, ActiveMagnesium (3 sources)take 1 tablet by mouth in the morningmagnesium 200 mg tablet Take 1 tablet by mouth in the morning. Activetake 1 tablet by mouth in the morning magnesium 200 mg tablet Take 1 tablet by mouth in the morning. 0 Activetake 1 tablet by mouth in the morningmagnesium 200 mg tablet Take 1 tablet by mouth in the morning. 0magnesium gluconate 550 mg oral tablet (20 sources)take 1 tablet by mouth in the morningmagnesium 30 MG tablet Take 30 mg by mouth in the morning and 30 mg before bedtime. ActiveMagnesium glycinate (2 sources)Start: 05-57-8642nkpm 1 tablet by mouth every twenty-four hours magnesium glycinate 200 mg oral tablet 200 mg = 1 tab(s), Oral, q24hr, Refills(s) 0 Start Date: 02/07/24 Status: Ordered Repeat number: 1Start: 24-72-6394xvfp 1 tablet by mouth every twenty-four hoursmagnesium glycinate 200 mg oral tablet 200 mg = 1 tab(s), Oral, q24hr, Refills(s) 0 Start Date: 02/07/24 Status: Orderedmeloxicam 15 mg oral tablet (20 sources)Nonsteroidal Anti-inflammatory DrugStart: 41-72-4010zuxi 1 tablet by mouth once daily at mealtimemeloxicam (Mobic) 15 MG tablet Indications: Primary osteoarthritis of first carpometacarpal joint of left hand Take 1 tablet (15 mg) by mouth Daily Take with food 100 tablet 3 12/07/2023 ActiveStart: 30-26-8456tgqx 1 tablet by mouth at mealtimemeloxicam (Mobic) 15 MG tablet Indications: Primary osteoarthritis of first carpometacarpal joint of left hand Take 1 tablet (15 mg) by mouth in the morning. Take with food. 100 tablet 3 01/14/2023 ActiveStart: 59-03-8001wugw 1 mg by mouth once dailymeloxicam 15 mg oral tablet mg tab(s), Oral, Daily, Refills(s) 0 Start Date: 06/14/20 Status: Orderedtake 1 tablet by mouth in the morningmeloxicam (MOBIC) 7.5 mg tablet Take 1 tablet (7.5 mg total) by mouth in the morning. ActiveComment on above:Take 7.5 mg by mouth.Multi Vitamin+ (2 sources)Start: 50-10-8301Ywuxw Vitamin+ Refill(s) 0 Start Date: 02/16/22 Status: OrderedMultiple Vitamin (Multi Vitamin) tablet (20 sources)Multiple Vitamin (Multi Vitamin) tablet 1 (one) time each day at the same time. ActiveMultiple Vitamin (Multi Vitamin) tablet 1 (one) time each day at the same time. 0 ActivepredniSONE 10 mg oral tablet (6 sources)Start: 11-29-2024 End: 89-24-8141ksmt 1 tablet by mouth three times daily, then take 1 tablet by mouth twice daily, then take 1 tablet by mouth once dailypredniSONE (Deltasone) 10 MG tablet Indications: Skin irritation Take 1 tablet (10 mg) by mouth 3 (t hree) times a day for 3 days, THEN 1 tablet (10 mg) 2 (two) times a day for 3 days, THEN 1 tablet (10 mg) Daily for 3 days. 18 tablet 11/29/2024 12/08/2024 ActiveStart: 02-17-2024 End: 85-44-4614imjb 1 tablet by mouth three times daily, then take 1 tablet by mouth twice daily, then take 1 tablet by mouth once dailypredniSONE (Deltasone) 10 MG tablet Indications: Acute pharyngitis, unspecified etiology Take 1 tablet (10 mg) by mouth 3 (three) times a day for 3 days, THEN 1 tablet (10 mg) 2 (two) times a day for3 days, THEN 1 tablet (10 mg) Daily for 3 days. 18 tablet 02/17/2024 02/25/2024 ActiveStart: 12-25-7266Yalqt: 63-34-9173dlpknmTZLS 10 MG Take 3 tablets by mouth for 3 days then 2 tablets by mouth for 3 days then 1 tablet by mouth for 3 days Orally Once a day for Nov, Activeselenium 200 mcg capsule (3 sources)take 1 capsule by mouth in the morningselenium 200 mcg capsule Take 1 capsule (200 mcg total) by mouth in the morning. Activetake 1 capsule by mouth in the morningselenium 200 mcg capsule Take 1 capsule (200 mcg total) by mouth in the morning. 0 Activetake 1 capsule by mouth in the morningselenium 200 mcg capsule Take 1 capsule (200 mcg total) by mouth in the morning. 0sildenafil 100 mg oral tablet (20 sources)Phosphodiesterase 5 InhibitorStart: 72-26-2489kclmbubowj 100 mg Tab 100 mg = 1 tab(s), REGIMEN As Directed, Refills(s) 0 Start Date: 02/07/24 Status: Ordered Repeat number: 1solifenacin succinate 10 mg oral tablet (20 sources)Cholinergic Muscarinic AntagonistStart: 59-77-1196nqrj 1 tablet by mouth once dailyVesicare 10 mg Tab 10 mg = 1 tab(s), Oral, Daily, # 90 tab(s), Refills(s) 3, Pharmacy: [facility] [id number], 186, cm, 02/05/25 10:36:00 EDT, Height/Length Dosing, 130.4, kg, 02/05/25 10:36:00 EDT, Weight Dosing Start Date: 02/05/25 Status: Ordered Quantity: 90.0 Unit: tab(s) Repeat number: 4 Start: 96-88-1278awwp 1 tablet by mouth in the morningsolifenacin (VESICARE) 10 mg tablet Take 1 tablet (10 mg total) by mouth in the morning. 09/30/2022ctive Comment on above:1 (one) time each day at the same time.tamsulosin hydrochloride 0.4 mg oral capsule (20 sources)alpha-Adrenergic BlockerStart: 36-55-8862nphc 1 capsule by mouth twice dailytamsulosin 0.4 mg Cap 0.4 mg = 1 cap(s), Oral, BID, # 180 cap(s), Refills(s) 3, Pharmacy: [facility] [id number], 186, cm, 02/05/25 10:36:00 EDT, Height/Length Dosing, 130.4, kg, 02/05/25 10:36:00 EDT, Weight Dosing Start Date: 02/05/25 Status: Ordered Quantity: 180.0 Unit: cap(s) Repeat number: 4 Start: 65-45-3483bnnn 1 capsule by mouth every twenty-four hours in the morning tamsulosin (Flomax) 0.4 MG 24 hr capsule Take 0.4 mg by mouth in the morning and 0.4 mg before bedtime. 08/21/2022 ActiveStart: 74-08-7779vmdk 1 capsule by mouth twice dailytamsulosin 0.4 mg Cap 0.4 mg = 1 cap(s), Oral, BID, # 60 cap(s), Refills(s) 11, Pharmacy: [facility] [id number], 186, cm, 02/08/23 11:10:00 EDT, Height/Length Dosing, 129, kg, 02/08/23 11:10:00 EDT, Weight Dosing Start Date: 09/29/23 Status: OrderedComment on above:Take 0.4 mg by mouth. tiZANidine 4 mg oral tablet (20 sources)Central alpha-2 Adrenergic AgonistStart: 64-95-4550shka 1 tablet by mouth once dailytiZANidine (Zanaflex) 4 MG tablet Indications: Herniated lumbar disc without myelopathy Take 1 tablet (4 mg) by mouth Daily 30 tablet 2 11/09/2024 ActiveStart: 58-77-4777gcol 1 tablet by mouth once dailytiZANidine (Zanaflex) 4 MG tablet Indications: Herniated lumbar disc without myelopathy Take 1 tablet (4 mg) by mouth Daily 30 tablet 2 05/24/2024 ActiveStart: 07-00-7975ondc 1 tablet by mouth every eight hourstiZANidine 4 mg Tab 4 mg = 1 tab(s), Oral, q8hr, Refills(s) 0 Start Date: 02/07/24 Status: Ordered Repeat number: 1Start: 11-30-4326msup 1 tablet by mouth once dailytiZANidine (Zanaflex) 4 MG tablet Indications: Herniated lumbar disc without myelopathy Take 1 tablet (4 mg) by mouth Daily 30 tablet 2 01/21/2024 ActiveStart: 90-41-1114xtIMJmdwvr (Zanaflex) 4 MG tablet 1 tablet as needed Orally at bedtime for 30 days 0 04/03/2022 Activetake 1 tablet by mouth every six hours as neededtiZANidine (ZANAFLEX) 4 mg tablet Take 1 tablet (4 mg total) by mouth every 6 (six) hours as neededfor muscle spasms. ActiveComment on above:1 tablet as needed Orally at bedtime for 30 daysVitamin B Complex (3 sources)take 1 tablet by mouth in the morningvitamin B complex (B COMPLEX 1 ORAL) Take 1 tablet by mouth in the morning. Activetake 1 tablet by mouth in the morningvitamin B complex (B COMPLEX 1 ORAL) Take 1 tablet by mouth in the morning. 0 Activetake 1 tablet by mouth in the morningvitamin B complex (B COMPLEX 1 ORAL) Take 1 tablet by mouth in the morning. 0Vitamin B Complex oral capsule (2 sources)Start: 94-17-0170scvo 1 capsule by mouth once dailyVitamin B Complex oral capsule 1 cap(s), Oral, Daily, Refill(s) 0 Start Date: 02/07/24 Status: Ordered Repeat number: 1Start: 94-05-7387ijqq 1 capsule by mouth once daily Vitamin B Complex oral capsule 1 cap(s), Oral, Daily, Refill(s) 0 Start Date: 02/07/24 Status: Orderedvitamin B12 (20 sources)Vitamin N29Nmdnz: 70-93-3030Ayhxobn B12 Refills(s) 0 Start Date: 02/16/22 Status: Orderedcyanocobalamin (Vitamin B-12) 100 MCG tablet as directed Orally ActiveZinc (4 sources)Start: 28-25-4486shsx 1 mg by mouth once dailyZinc mg, Oral, Daily, Refills(s) 0 Start Date: 02/16/22 Status: Ordered Repeat number: 1Start: 63-46-2024syvs 1 mg by mouth once dailyZinc mg, Oral, Daily, Refills(s) 0 Start Date: 02/16/22 Status: Orderedzinc gluconate 50 mg oral tablet (20 sources)zinc gluconate 50 MG tablet 1 (one) time each day at the same time. Active Completed/Discontinued Medications MedicationDrug Class(es)DatesSig (Normalized)Sig (Original)calcium chloride 0.0014 meq/ml / potassium chloride 0.004 meq/ml / sodium chloride 0.103 meq/ml / sodium lactate 0.028 meq/ml injectable solution (1 source)Start: 07-07-2023 End: 29-35-2702cgjlvvxk ringers infusioncefTRIAXone (1 source)Cephalosporin AntibacterialStart: 02-05-5112Tswosfaq 500 mg Nov, 500 mg1 ml fentaNYL 0.05 mg/ml injection (1 source)Opioid AgonistStart: 07-07-2023 End: 75-58-0396bpakrAIY (SUBLIMAZE) injection 50 mcg0.5 ml HYDROmorphone hydrochloride 1 mg/ml prefilled syringe (1 source)Opioid AgonistStart: 07-07-2023 End: 96-13-2764JXNEDozerqnsv (PF) (DILAUDID) injection 0.5 mg1 ml meperidine hydrochloride 50 mg/ml injection (1 source)Opioid AgonistStart: 07-07-2023 End: 21-93-9162koinbrgiys (DEMEROL) injection 12.5 mgNaloxone (1 source)Opioid AntagonistStart: 07-07-2023 End: 54-67-0280ytnwhwhe (NARCAN) injection 0.1 mg2 ml ondansetron 2 mg/ml injection (1 source)Serotonin-3 Receptor AntagonistStart: 07-07-2023 End: 96-64-0729kxywrbgpwyw (PF) (ZOFRAN) injection 4 mgoxyCODONE hydrochloride 5 mg oral tablet (7 sources)Opioid AgonistStart: 05-02-2024 End: 11-04-0549xmma 1 tablet by mouth every six hours for painoxyCODONE (Roxicodone) 5 MG immediate release tablet Indications: Post-operative pain Take 1 tablet(5 mg) by mouth every 6 (six) hours if needed for moderate pain for up to 5 days 20 tablet 05/08/2024 05/13/2024 Expiredsilver sulfADIAZINE 10 mg/ml topical cream (2 sources)Sulfonamide AntibacterialStart: 35-28-2014Rzane: 12-11-4707Tilpdyudp 1 % 1 application to affected area Externally Once a day Nov, Not-Taking tadalafil 20 mg oral tablet (2 sources)Phosphodiesterase 5 InhibitorStart: 44-45-1701gkxf 1 tablet by mouth every hourCialis 20 mg Tab 20 mg = 1 tab(s), Oral, As Directed, take 1 tab i hour prior to sexual activity, #30 tab(s), Refills(s) 3, [facility], 186, cm, 06/17/20 14:49:00 EST, Height/Length Dosing, 122, kg, 06/17/20 14:49:00 EST, Weight Dosing Start Date: 06/17/20 Status: Ordered tranexamic acid 650 mg oral tablet (2 sources)Antifibrinolytic AgentStart: 07-07-2023 End: 28-88-9251qpvidvosck acid (LYSTEDA) tablet 1,950 mg Problems Active Problems Problem ClassificationProblemDateDocumented DateEpisodic/ChronicAbdominal hernia (20 sources)Umbilical hernia; Translations: [Umbilical hernia without obstruction or gangrene]Onset: 000680-79-5515SkefqdcyNlqwrsdxgvvqja/social admission (4 sources)Patient encounter status; Translations: [Other specified counseling] 14-14-7185VpdlasuvMohlizill of lipid metabolism (4 sources)Smnsffputqodsq44-51-7846ZuaoubhFgdpiuomij disorders (20 sources)Gastroesophageal reflux disease without esophagitis; Translations: [Gastro-esophageal reflux disease without esophagitis]Onset: 01-11-2023 59-68-4540JdjskpqWaawsadsn hypertension (20 sources)Hypertensive disorder; Translations: [Essential (primary) hypertension]Onset: 08-13-2022 Resolved: [id number]fdnubegqz symptoms and ill-defined conditions (10 sources)Urge incontinence; Translations: [Post-micturition incontinence ] Onset: 76-30-5093KlcuhxgYekslpdwzoycj symptoms and ill-defined conditions (8 sources)Increased frequency of urination; Translations: [Nocturia]06-17-2020 EpisodicGout and other crystal arthropathies (4 sources)Qrjc64-45-7152UrdmfypPsctwkpk; including migraine (4 sources)Vppwjmic49-35-5674YitrkdxhXomdnipprfg of prostate (20 sources)Benign prostatic hypertrophy with outflow obstruction; Translations: [Benign prostatic hyperplasia with lower urinary tract symptoms]Onset: 13-29-8828RztmybwNmgadqbcdfyfp and screening for infectious disease (2 sources)Needs influenza immunization; Translations: [Encounter for immunization]04-09-8756GnjyoyweCpexrkh (2 sources)Tinea pedis; Translations: [Tinea pedis]76-96-2453BwhogokwFtrs wounds of extremities (2 sources)Open wound of left lower leg; Translations: [Unspecified open wound, left lower leg, initial encounter]53-51-1413QxfyabctYpfhshgvrfwhsh (20 sources)Arthritis; Translations: [Bilateral primary osteoarthritis of hip] Onset: 372650-96-9565WlpedlfKrvlf connective tissue disease (20 sources)History of total hip arthroplasty; Translations: [Presence of right artificial hip joint]Onset: 623423-29-2164KtqohxbMibgw connective tissue disease (5 sources)History of repair of hip joint; Translations: [Presence of right artificial hip joint]61-51-6551FqtqufmRoezw connective tissue disease (6 sources)Pain in right leg; Translations: [PAIN IN RIGHT LEG]Onset: 10-08-2022 EpisodicOther diseases of bladder and urethra (2 sources)Detrusor overactivity; Translations: [Overactive bladder]Onset: 82-03-7332PesphgoKcoxc diseases of bladder and urethra (2 sources)Overactive xgmlxue97-12-1723JomlnsqOletb injuries and conditions due to external causes (4 sources)Injury of omsj50-79-7858TxccxxdrMgqkb male genital disorders (8 sources)Male erectile dysfunction, unspecified; Translations: [Erectile dysfunction]Onset: 44-70-9209EmpjjyyUphff nervous system disorders (5 sources)Other chronic pain; Translations: [OTHER CHRONIC PAIN]Onset: 74-46-4242BxyfguiUjarl nervous system disorders (20 sources)Carpal tunnel syndrome of right wrist; Translations: [Carpal tunnel syndrome, right upper limb]Onset: 228175-68-8165VnjcdiiSpfmy nervous system disorders (20 sources)Chronic pain; Translations: [Other chronic pain]Onset: 01-11-2023 10-87-0309TgaidjyVzhmz nervous system disorders (2 sources)Postoperative pain ; Translations: [Other acute postprocedural pain] 79-06-1967HkqisvklCbdfl non-traumatic joint disorders (5 sources)Pain in left hip; Translations: [PAIN IN LEFT HIP]Onset: 11-13-2022 EpisodicOther non-traumatic joint disorders (1 source)Pain in right hip; Translations: [PAIN IN RIGHT HIP]Onset: 11-25-2022 EpisodicOther nutritional; endocrine; and metabolic disorders (1 source)Obese class II; Translations: [Body mass index (BMI) 35.0-35.9, adult] Onset: 14-90-6593AcrxjtnSynrp nutritional; endocrine; and metabolic disorders (20 sources)Body mass index 30+ - obesity; Translations: [Body mass index (BMI) 38.0-38.9, adult]Onset: 01-21-2024 Resolved: [id number] nutritional; endocrine; and metabolic disorders (2 sources)Body mass index (BMI) 38.0-38.9, adultChronicOther nutritional; endocrine; and metabolic disorders (20 sources)Severe obesity; Translations: [Class 2 severe obesity with serious comorbidity and body mass index (BMI) of 37.0 to 37.9 in adult]Onset: 01-21-2024 54-08-1486DstknadEcdgd nutritional; endocrine; and metabolic disorders (2 sources)Obesity caused by energy imbalance; Translations: [Morbid (severe) obesity due to excess calories]86-30-3137QncwrjgKkqng skin disorders (2 sources)Skin irritation ; Translations: [Other skin changes]11-29-2024 EpisodicOther upper respiratory disease (20 sources)Allergic rhinitis; Translations: [Allergic rhinitis, unspecified] Onset: 627158-12-5840WikxewmUusdf upper respiratory infections (4 sources)Acute pharyngitis; Translations: [Acute pharyngitis, unspecified] 43-73-2136MiztsilxViwxiwwlrb and visceral atherosclerosis (20 sources)Atherosclerosis of aorta; Translations: [Atherosclerosis of aorta] Onset: 037403-79-6216GuwaehnBktdtysbk and history of mental health and substance abuse codes (2 sources)Encounter for screening for depressionEpisodicSpondylosis; intervertebral disc disorders; other back problems (20 sources)Spondylosis without myelopathy or radiculopathy, lumbar region; Translations: [Other intervertebraldisc degeneration, lumbar region]Onset: 90-78-5327WnhtiajUmnleknydqmp (4 sources)LOW BACK PAIN, UNSPECIFIED; Translations: [LOW BACK PAIN, UNSPECIFIED]Onset: 01-61-1436Kzjinwnmerzc (1 source)VERTEBROGENIC LOW BACK PAIN; Translations: [VERTEBROGENIC LOW BACK PAIN]Onset: 80-36-9937Owwffraldieu (1 source)right hip degenerative joint diseaseOnset: 07-07-2023 Past or Other Problems Problem ClassificationProblemDateDocumented DateEpisodic/ChronicComa; stupor; and brain damage (20 sources)Daytime somnolence; Translations: [Somnolence]Onset: 01-11-2023 86-08-3305SucjasreSobhkcki mellitus without complication (20 sources)Impaired glucose tolerance; Translations: [Impaired glucose tolerance (oral)]Onset: 307600-68-5298AitglscnEoswj connective tissue disease (20 sources)Muscle pain; Translations: [Myalgia, unspecified site]Onset: 269434-95-5066NosoeqppFxkys connective tissue disease (20 sources)Ganglion cyst of left volar wrist; Translations: [Ganglion, left wrist]Onset: 360226-40-4859UuknvyvmFzjmx diseases of kidney and ureters (20 sources)Disorder of urinary tract; Translations: [Other obstructive and reflux uropathy]Onset: 231952-83-4063ZhlfddzcAfncz lower respiratory disease (20 sources)Snoring; Translations: [Snoring]Onset: 737515-51-6980Fcdzicmu Other non-traumatic joint disorders (14 sources)Pain in right hip joint; Translations: [Pain in right hip]Onset: 295144-49-8169PzwlnmeaWpncf non-traumatic joint disorders (20 sources)Hip pain; Translations: [Pain in right hip]Onset: 07-29-2023 93-44-3924DcluohyoThuggbrokoq; intervertebral disc disorders; other back problems (20 sources)Muscle spasm of back; Translations: [Radiculopathy, lumbar region] Onset: 23-49-9024IdyqvormHwanegdkcazb (1 source)LOW BACK PAIN, UNSPECIFIED; Translations: [LOW BACK PAIN, UNSPECIFIED] Onset: 07-23-2022 Results Test NameValueInterpretationReference RangeFacilityUrology Office/Clinic Noteon [id number] Office/Clinic NoteUrology Office/Clinic Note Chief Complaint 1 year follow up HPI Staff Pt is a 70 year old male here for a 1 year follow up Dx: UUI, BPH with obstruction, ED. *Vesicare 10mg qd, Tamsulosin 0.4mg bid, Finasteride 5mg qd, and Sildenafil 100mg prn. refills sentto Pietro Rodas PCP checks PSA. Most recent [...] Contact Information PAMELA BAER, Mac Stephenson, URL [address] [place] [address] [place] [address] Additional Instructions: 1 yr (PCP checks PSA) Patient Education Overactive Bladder, Adult I, Kaleigh Donato, personally scribed for Dr. Santiago on 02/05/2025 11:52:14. . Documentation recorded by the Kaleigh hinojosa Donato, accurately reflects the services(s) I performed [...] mg= 1 tab(s), Oral, Daily, 3 refills hydrochlorothiazide-irbesartan 12.5 mg-150 mg Tab, 1 tab(s), Oral, Daily magnesium glycinate 200 mg oral tablet, 200 mg= 1 tab(s), Oral, q24hr [place] 325 mg-5 mg oral tablet, 1 tab(s), [...] acel/tetanus adult 05/18/2023 Recorded (more content not included)...[facility] HospitalComment on above:Result Comment: Electronically Signed By: Mac SANTIAGO MD\.br\Date and Time Signed: 02/05/25 11:58 EDT\.br\Electronically Co-Signed By: Kaleigh Donato\.br\Date and Time Co-Signed: 02/05/25 11:52 EDTXR Hip - left 3 Viewson [id number] Result: 10/30/2024: : AP and lateral of [...] Unremarkable left total hip arthroplasty. Jose Hern[facility]dez APRN[facility] HealthcareRadiology Study observation (narrative)[facility] Cell countson 10-25-2024 HbA1c (Bld) [Mass fraction]5.8 %[facility] Panel Informationon 10-25-2024 [facility] LUMBAR SPINE WO CONTRASTon [id number] LUMBAR SPINE WO CONTRASTEXAM: MR LUMBAR SPINE WO CONTRAST History: Low [...] as detailed. ELECTRONICALLY SIGNED BY: Clark Landeros, DONormalNot AvailableRIVERSIDE COUNTY REGIONAL [facility] US LOWER EXTREMITY ARTERIAL DUPLEX BILATERALon [id number] US LOWER EXTREMITY ARTERIAL DUPLEX BILATERALEXAM: Bilateral Lower Extremity Arterial Duplex Ultrasound. REASON [...] Location: Velocity/Waveform Location: Velocity/Waveform THIGH: THIGH: R DIRECTOR OF QUANTITATIVE RESEARCH: 165 T L DIRECTOR OF QUANTITATIVE RESEARCH: 119 T R SFA PROX: 101 T L SFA PROX: 121 T R SFA MID: 96 T L SFA MID 103 T R SFA DIST: 104 T L SFA DIST: 81 T R POP A: 54 T L POP A: 65 T CALF: CALF: R KAMERON: 111 T L KAMERON: 80 T R GOLF CADDY PROX: 105 T L GOLF CADDY PROX: 123 T R GOLF CADDY MID: 139 T L GOLF CADDY MID: 125 T R GOLF CADDY DIST: 129 T L GOLF CADDY DIST: 151 T R SALINAS: 105 B L SALINAS: 76 T IMPRESSION: No significant findings. Mild plaque in the right common femoral artery with less than 50% stenosis. *This report is generated using voice recognition reporting (MyForcee). On occasion MedAlliancecribe erroneously drops words from the report or replaces the spoken word with similar sounding words. Please call with any questions/concerns regarding this report.* Dictated and transcribed 06/23/2024/tm This report has been electronically signed and approved by the interpreting radiologist.NormalNot AvailableCB (H/H, RBC, INDICES, WBC, PLT)on 06-15-2024 Erythrocyte distribution width (RBC) [Ratio]14.8 %Hlgnhk01.0-15.0Quest DiagnosticsComment on above:Performed By: #### 1759, 71300 #### [facility] [address] [place], [place] [address] [employer] Hand Frame: Katarzyna Khan #### 5363, 7600, 496 #### [facility] [address], [address] [place] [address] [employer] Frame: Casey Chi MDHematocrit (Bld) [Volume fraction]37.3 %Low 38.5-50.0Quest DiagnosticsComment on above:Performed By: #### 1759, 60535 #### [facility] [address] [employer] Frame: Katarzyna Khan #### 5363, 7600, 496 #### [facility] [address], [address] [place] [address] [employer] Frame: Casey Chi MDHemoglobin (Bld) [Mass/Vol]12.0 g/dLLow 13.2-17.1Quest DiagnosticsComment on above:Performed By: #### 1759, 96039 #### [facility] [address] [place] [address] [employer] Frame: Katarzyna Khan #### 5363, 7600, 496 #### [facility] [address], [address] [place] [address] [employer] Frame: Casey Chi MDMCH (RBC) [Entitic mass]28.0 gdTwdnyw43.0-33.0 [facility] DiagnosticsComment on above:Performed By: #### 1759, 72827 #### [facility] [address] [place], [place] [address] [employer] Frame: Katarzyna Khan #### 5363, 7600, 496 #### [facility] [address], [address] [place] [address] Surgical [employer] Frame: Casey Chi MDMCHC (RBC) [Mass/Vol]32.2 g/vPVnmqoy46.0-36.0 [facility] DiagnosticsComment on above:Result Comment: For adults, a slight decrease in the calculated MCHC value (in the range of 30 to 32 g/dL) is most likely not clinically significant; however, it should be interpreted with caution in correlation with other red cell parameters and the patient's clinical condition.Performed By: #### 1759, 47278 #### [facility] [address] [place], [place] [address] [employer] Frame: Katarzyna Khan #### 5363, 7600, 496 #### [facility] [address] , [address] [place] [address] [employer] Frame: Casey PLAZACV (RBC) [Entitic vol]86.9 aQAfovwi93.0-100.0 [facility] DiagnosticsComment on above:Performed By: #### 1759, 86239 #### [facility] [address] [place] [address] Surgical [employer] Frame: Katarzyna Khan #### 5363, 7600, 496 #### [facility] [address] , [address] [place] [address] Surgical [employer] Frame: Casey Chi MDPlatelet mean volume (Bld) [Entitic vol]9.1 fL Normal7.5-12.5Quest DiagnosticsComment on above:Performed By: #### 1759, 22483 #### [facility] [address] [place] [address] Surgical [employer] Frame: Katarzyna Khan #### 5363, 7600, 496 #### [facility] [address] , [address] [place], [place] [id number] [employer] Frame: Casey Chi MDPlatelets (Bld) [#/Vol]242 10*3/uLNormal 140-400Quest DiagnosticsComment on above:Performed By: #### 1759, 01218 #### [facility] [address] [place], [place] [address] Surgical [employer] Frame: Katarzyna Khan #### 5363, 7600, 496 #### [facility] [address], [address] [place] [address] Surgical [employer] Hand Frame: Casey Chi [facility] ([facility]) [#/Vol]4.29 10*6/uLNormal4.20-5.80 [facility] DiagnosticsComment on above:Performed By: #### 1759, 75396 #### [facility] [address] [place] [address] Surgical [employer] Frame: Katarzyna Khan #### 5363, 7600, 496 #### [facility] [address], [address] [place] [address] Surgical [employer] Hand Frame: Casey Chi MDST. [facility] ([facility]) [#/Vol]7.7 10*3/uLNormal3.8-10.8 [facility] DiagnosticsComment on above:Performed By: #### 1759, 61330 #### [facility] [address] [place] [address] Surgical [employer] Frame: Katarzyna Khan #### 5363, 7600, 496 #### [facility] [place] [address] [employer] Frame: Casey Chi [facility] DRUMRIGHTOMPREHENSIVE METABOLIC PANELon 06-15-2024 Albumin [Mass/Vol]3.9 g/dLNormal3.6-5.1Quest DiagnosticsComment on above: Performed By: #### 1759, 98232 #### [facility] [address] [place] [address] Surgical [employer] Frame: Katarzyna Khan #### 5363, 7600, 496 #### [facility] [place] [address] [employer] Frame: Casey Chi MDAlbumin/Globulin [Mass ratio]1.5 {ratio}Normal 1.0-2.5Quest DiagnosticsComment on above:Performed By: #### 1759, 52083 #### [facility]-[address] [employer] Frame: Katarzyna Khan #### 5363, 7600, 496 #### [facility] [address], [address] [place] [address] Surgical [employer] Hand Frame: Casey Chi MDALP [Catalytic activity/Vol]71 U/UNkpsgn03-160 Quest DiagnosticsComment on above:Performed By: #### 1759, 34581 #### [facility] [address] [place] [address] Surgical [employer] Frame: Katarzyna Khan #### 5363, 7600, 496 #### [facility] [address], [address] [place] [address] Surgical [employer] Kn[employer] Hand Frame: Casey Chi MDALT [Catalytic activity/Vol]18 U/LNormal9-46 [facility] DiagnosticsComment on above:Performed By: #### 1759, 75962 #### [facility] [address] [place] [address] Surgical Elastic Kn[employer] Hand Frame: Katarzyna Khan #### 5363, 7600, 496 #### [facility] [place] [address] Surgical [employer] Hand Frame: Casey Chi MDAST [Catalytic activity/Vol]18 U/TCaohdq91-57 [facility] DiagnosticsComment on above:Performed By: #### 1759, 61631 #### [facility] [address] [place] [address] Surgical El[employer] Kn[employer] Hand Frame: Katarzyna Khan #### 5363, 7600, 496 #### [facility] [address], [address] [place] [address] Surgical [employer] Hand Frame: Casey Chi MDBilirubin [Mass/Vol]0.6 mg/dLNormal0.2-1.2 Quest DiagnosticsComment on above:Performed By: #### 1759, 50405 #### [facility] [address] [place] [address] Surgical [employer] Hand Frame: Katarzyna Khan #### 5363, 7600, 496 #### [facility] [address], [address] [place] [address] Surgical [employer] Hand Frame: Casey Chi MDBUN/CREATININE RATIOSEE NOTE:Normal6-22Quest DiagnosticsComment on above:Result Comment: Not Reported: BUN and Creatinine are within reference range.Performed By: #### 1759, 96164 #### [facility] [address] [place], [place] [address] Surgical [employer] Kn[employer] Hand Frame: Katarzyna Khan #### 5363, 7600, 496 #### [facility] [address], [address] [place] [address] Surgical Elastic [employer] Hand Frame: Casey Chi MDCalcium [Mass/Vol]9.2 mg/dLNormal8.6-10.3Quest DiagnosticsComment on above:Performed By: #### 1759, 49762 #### [facility] [address] [place] [address] Surgical El[employer] Hand Frame: Katarzyna Khan #### 5363, 7600, 496 #### [facility] [address], [address] [place] [address] Surgical Elastic [employer] Hand Frame: Casey Chi MDChloride [Moles/Vol]105 mmol/GModugv15-380 [facility] DiagnosticsComment on above:Performed By: #### 1759, 07159 #### [facility] [address] [place] [address] Surgical [employer] Hand Frame: Katarzyna Khan #### 5363, 7600, 496 #### [facility] [address], [address] [place] [address] Surgical [employer] Hand Frame: Casey Chi MDCO2 [Moles/Vol]26 mmol/ZWgpcre64-55Skkhn DiagnosticsComment on above:Performed By: #### 1759, 72964 #### [facility] [address] [place] [address] Surgical El[employer] Hand Frame: Katarzyna Khan #### 5363, 7600, 496 #### [facility] [address], [address] [place] [address] Surgical Elastic Knitter Hand Frame: Casey ISRAELreatinine [Mass/Vol]0.82 mg/dLNormal0.70-1.28 [facility] DiagnosticsComment on above:Performed By: #### 1759, 95331 #### [facility] [address] [place] [address] Surgical Elastic Knitter Hand Frame: Katarzyna Khan #### 5363, 7600, 496 #### [facility] [address], [address] [place] [address] Surgical [employer] Frame: Casey Chi MDGFR/1.73 sq M.predicted among non-blacks MDRD (S/P/Bld) [Vol rate/Area]94 mL/min/{1.73_m2}Normal> OR = 60[facility] Comment on above:Performed By: #### 1759, 02264 #### [facility] [address] [place] [address] Surgical El[employer] Kn[employer] Hand Frame: Katarzyna Khan #### 5363, 7600, 496 #### [facility] [address], [address] [place] [address] Surgical [employer] Kn[employer] Hand Frame: Casey Chi MDGlobulin (S) [Mass/Vol]2.6 g/dLNormal1.9-3.7 [facility] DiagnosticsComment on above:Performed By: #### 1759, 89704 #### [facility] [address] [place] [address] Surgical El[employer] Kn[employer] Hand Frame: Katarzyna Khan #### 5363, 7600, 496 #### [facility] [place] [address] Surgical [employer] Hand Frame: Casey Chi MDGlucose [Mass/Vol]106 mg/mTQinb12-10Iqfrp DiagnosticsComment on above:Result Comment: Fasting reference interval For someone without known diabetes, a glucose value between 100 and 125 mg/dL is consistent with prediabetes and should be confirmed with a follow-up test.Performed By: #### 1759, 52843 #### [facility] [address] [place] [address] Surgical El[employer] Hand Frame: Katarzyna Khan #### 5363, 7600, 496 #### [facility] [address], [address] [place] [address] Surgical [employer] Kn[employer] Hand Frame: Casey Chi MDPotassium [Moles/Vol]4.1 mmol/LNormal3.5-5.3 Quest DiagnosticsComment on above:Performed By: #### 1759, 07510 #### [facility] [address] Surgical [employer] Hand Frame: Katarzyna Khan #### 5363, 6260, 496 #### [facility] [address], [address] [place] [address] Surgical El[employer] Kn[employer] Hand Frame: Casey Chi MDProtein [Mass/Vol]6.5 g/dLNormal6.1-8.1Quest DiagnosticsComment on above:Performed By: #### 1759, 32907 #### [facility] [address] [place] [address] Surgical [employer] Kn[employer] Hand Frame: Katarzyna Khan #### 5363, 7600, 496 #### [facility] [address], [address] [place] [address] Surgical [employer] Hand Frame: Casey Chi MDSodium [Moles/Vol]139 mmol/LYkqspd997-335Izmxs DiagnosticsComment on above:Performed By: #### 1759, 44129 #### [facility] [address] Surgical [employer] Hand Frame: Katarzyna Khan #### 5363, 7600, 496 #### [facility] [address], [address] [place] [address] Surgical [employer] Kn[employer] Hand Frame: Casey Chi MDUrea nitrogen [Mass/Vol]16 mg/dLNormal7-25 Quest DiagnosticsComment on above:Performed By: #### 1759, 11149 #### [facility] [place] [address] Surgical [employer] Frame: Katarzyna Khan #### 5363, 7600, 496 #### [facility] [place] [address], [address] [place] [address] Surgical [employer] Frame: Casey Chi MDHEMOGLOBIN A1con 75-03-2846SQQXKJYPTC A1c5.6 % of total HgbNormal<5.7Quest DiagnosticsComment on above:Result Comment: For the purpose of screening for the presence of diabetes: <5.7% Consistent with the absence of diabetes 5.7-6.4% Consistent with increased risk for diabetes (prediabetes) > or =6.5% Consistent with diabetes This assay result is consistent with a decreased risk of diabetes. Currently, no consensus exists regarding use of hemoglobin A1c for diagnosis of diabetes in children. According to [place] Diabetes Association (ADA) guidelines, hemoglobin A1c <7.0% represents optimal control in non- diabetic patients. Different metrics may apply to specific patient populations. Standards of Medical Care in Diabetes(ADA).Performed By: #### 1759, 28772 #### [facility] [address] [place] [address] Surgical [employer] Frame: Katarzyna Khan #### 5363, 7600, 496 #### [facility] [address], [address] [place] [address] Surgical [employer] Hand Frame: Casey Chi MDLIPID PANEL, STANDARDon 45-25-6390Endazvgoujx [Mass/Vol]172 mg/dLNormal<200Quest DiagnosticsComment on above:Order Comment: FASTING:YES FASTING: YESPerformed By: #### 1759, 30081 #### [facility] [place] [address] Surgical [employer] Frame: Katarzyna Khan #### 5363, 7600, 496 #### [facility] [address], [address] [place] [address] Surgical [employer] Hand Frame: Casey Merati MDCholesterol in HDL [Mass/Vol]32 mg/dLLow> OR = 40Quest DiagnosticsComment on above:Order Comment: FASTING:YES FASTING: YESPerformed By: #### 1759, 70755 #### [facility] [place] [address] Surgical [employer] Frame: Katarzyna Khan #### 5363, 7600, 496 #### [facility] [address], [address] [place] [address] Surgical [employer] Hand Frame: Casey Chi MDCholesterol in LDL [Mass/Vol]100 mg/dLHigh [facility] DiagnosticsComment on above:Order Comment: FASTING:YES FASTING: YESResult Comment: Reference range: <100 Desirable range <100 mg/dL for primary prevention; <70 mg/dL for patients with CHD or diabetic patients with > or = 2 CHD risk factors. LDL-C is now calculated using the Deyvi calculation, which is a validated novel method providing better accuracy than the Friedewald equation in the estimation of LDL-C. Humberto MOORE et al. LULU. 2013;310(19): 7579-6428 (http://education.[facility].[employer]/faq/SZQ776)Performed By: #### 1759, 30101 #### [facility] [address] [place] [address] Surgical [employer] Frame: Katarzyna Khan #### 5363, 7600, 496 #### [facility] [address], [address] [place] [address] Surgical [employer] Hand Frame: Casey Chi MDCholesterobunny.total/Cholesterol in HDL [Mass ratio]5.4 {ratio}High<5.0Quest DiagnosticsComment on above:Order Comment: FASTING:YES FASTING: YESPerformed By: #### 1759, 17931 #### [facility] [address] [place] [address] Surgical [employer] Frame: Katarzyna Khan #### 5363, 7600, 496 #### [facility] [address], [address] [place] [address] Surgical [employer]astic Knitter Hand Frame: Casey OLSEN HDL PVFPODAJZOY842 mg/dL (calc)High<130 Quest DiagnosticsComment on above:Order Comment: FASTING:YES FASTING: YESResult Comment: For patients with diabetes plus 1 major ASCVD risk factor, treating to a non-HDL-C goal of <100 mg/dL (LDL-C of <70 mg/dL) is considered a therapeutic option.Performed By: #### 1759, 79643 #### [facility] [address] [place] [address] Surgical El[employer] Hand Frame: Katarzyna Khan #### 5363, 7600, 496 #### [facility] [address], [address] [place] [address] Surgical El[employer] Knitter Hand Frame: Casey Chi MDTriglyceride [Mass/Vol]299 mg/dLHigh<150Quest DiagnosticsComment on above:Order Comment: FASTING:YES FASTING: YESResult Comment: If a non-fasting specimen was collected, consider repeat triglyceride testing on a fasting specimen if clinically indicated. Fabiola et al. J. of Clin. Lipidol. 2015;9:129-169.Performed By: #### 1759, 80230 #### [facility] [address] [place] [address] Surgical El[employer] Kn[employer] Hand Frame: Katarzyna Khan #### 5363, 7600, 496 #### [facility] [address], [address] [place] [address] Surgical [employer] Knitter Hand Frame: Casey ALTMAN TOTALon 79-60-8882YGG, TOTAL0.43 ng/mL Normal< OR = 4.00Quest DiagnosticsComment on above:Result Comment: The total PSA value from this assay system is standardized against the WHO standard. The test result will be approximately 20% lower when compared to the equimolar-standardized total PSA ([place]). Comparison of serial PSA results should be interpreted with this fact in mind. This test was performed using the Siemens chemiluminescent method. Values obtained from different assay methods cannot be used interchangeably. PSA levels, regardless of value, should not be interpreted as absolute evidence of the presence or absence of disease.Performed By: #### 1759, 56940 #### [facility] [address] [place] [address] Surgical [employer] Hand Frame: Katarzyna Khan #### 5363, 7600, 496 #### [facility] [address], [address] [place] [address] Surgical [employer] Frame: Casey Chi MDXR Hip - left 3 Viewson [id number] Result: 06/12/2024: AP and lateral of left [...] Unremarkable left total hip arthroplasty. Jose Hernández APRN-HIDE INSPECTOR AND SORTER [facility] CountyRadiology Study observation (narrative)[facility]M Health CareXR HIP LT 2-3 VIEWS W OR WO PELVISon [id number] HIP LT 2-3 VIEWS W OR WO PELVISXR HIP LT 2-3 VIEWS W OR WO PELVIS XR HIP LT 2-3 VIEWS W OR WO PELVIS HISTORY: Hip replacement. COMPARISON: None. IMPRESSION: 1. Hip prosthesis without visible complication. Soft tissue gas and swelling. Finalized by Price Delcid MD on 05/03/2024 10:26 AMNormalMemorial HospitalXR Hip - left 3 Viewson [id number] Result: April 06, 2024 x-rays AP and lateral of the left hip demonstrate joint space collapse with subchondral sclerosis and osteophyte formation consistent with arthritis. Impression: Arthritis of the left hip Amauri Blair D.O.[facility] CountyXR Hip - left 3 Viewson [id number] Study observation (narrative)[facility]M Health CareBASIC METABOLIC PANLon 90-96-8539Cqokq gap [Moles/Vol]9 mmol/LNormal5-15Memorial HospitalComment on above:Performed By: #### CBCA, BMP #### [facility] ([id number]) [address], [address] [place], [place] [address]Rdwuxak [Mass/Vol]9.8 mg/dLNormal8.5-10.5POhio State East HospitalComment on above:Performed By: #### JOSHUA BMP #### [facility] ([id number]) [address], [address] [place], [place] [address]Qqwlqrbf [Moles/Vol]103 mmol/CSpfrtw44-012MlsLggyyaCook Children'S Medical CenterComment on above:Performed By: #### JOSHUA, BMP #### [facility] ([id number]) [address], [address] [place], [place] [address]SB4 [Moles/Vol]27 mmol/XOdrqtg09-24PngDkvlntOhio State East Hospital Comment on above:Performed By: #### JOSHUA, BMP #### [facility] ([id number]) [address], [address] [place], [place] [address]Vehinaddtp [Mass/Vol]0.89 mg/dLNormal0.60-1.30Memorial HospitalComment on above:Result Comment: METHOD TRACEABLE TO IDMS STANDARD Performed By: #### JOSHUA BMP #### [facility] ([id number]) [address], [address] [place], [place] [address]xLXG (CKD-EPI) NON-RACE DEPENDENT>90Normal>59ProCook Children'S Medical CenterComment on above:Result Comment: Reported eGFR is based on the CKD-EPI 2020 equation that does not use a race coefficient.Performed By: #### JOSHUA, BMP #### [facility] ([id number]) [address], [address] [place], [place] [address]Firqdtw [Mass/Vol]101 mg/dFKsup37-65OfoExfzarMemorial Hospital Comment on above:Performed By: #### JOSHUA, BMP #### [facility] ([id number]) [address], [address] [place], [place] [address]Wrgastzuv [Moles/Vol]4.1 mmol/LNormal3.5-5.0Memorial HospitalComment on above:Performed By: #### ABDON LEWIS #### [facility] ([id number]) [address], [address] [place], [place] [address]Kihnmf [Moles/Vol]139 mmol/KYsgwro482-510SlkQinzahMemorial HospitalComment on above:Performed By: #### JOSHUA, ABDON #### [facility] ([id number]) [address], [address] [place], [place] [address]Edvw nitrogen [Mass/Vol]19 mg/dLNormal5-27ProCook Children'S Medical CenterComment on above:Performed By: #### ABDON LEWIS #### [facility] ([id number]) [address], [address] [place], [place] [address]Donow Metabolic Panelon 07-36-1004Hlmvq gap [Moles/Vol]9 mmol/L5 - 15 mmol/[facility] HospitaloMedica Health SystemCalcium [Mass/Vol]9.8 mg/dL8.5 - 10.5 mg/dL Community Memorial HospitalChloride [Moles/Vol]103 mmol/L98 - 109 mmol/[facility] HospitaloMedica Health SystemCO2 [Moles/Vol]27 mmol/L22 - 32 mmol/[facility] Creatinine [Mass/Vol]0.89 mg/dL0.60 - 1.30 mg/dLCommunity Memorial HospitalComment on above:METHOD TRACEABLE TO IDNE STANDARDeGFR (CKD-EPI)non-race dependent- PINF Community Memorial HospitalComment on above: Reported eGFR is based on the CKD-EPI 2020 equation that does not use a race coefficient. Glucose [Mass/Vol]101 mg/zAAdbm01 - 99 mg/dLCommunity Memorial Hospital Interpretation and review of laboratory resultsAbnormalCommunity Memorial Hospital Potassium [Moles/Vol]4.1 mmol/L3.5 - 5.0 mmol/LProMedica Health SystemSodium [Moles/Vol]139 mmol/L134 - 146 mmol/LProMedica Health SystemUrea nitrogen [Mass/Vol]19 mg/dL5 - 27 mg/dLProKindred Hospital Philadelphia - HavertownCBC AND AUTO DIFFon 18-94-2554DTLQVLBY BASOPHIL0.0 X10E9/LNormal0.0-0.2POhio State East HospitalComment on above:Performed By: #### JOSHUA BMP #### [facility] ([id number]) [address], [address] [place], [place] [address]BXKNHTJS NEUTROPHIL4.6 X10E9/LNormal1.5-6.6Memorial HospitalComment on above:Performed By: #### CBCMilton, BMP #### [facility] ([id number]) [address], [address] [place], [place] [address]Xsmxsfiuu/100 WBC (Bld)0.4 %[facility] Comment on above:Performed By: #### CBCMilton, BMP #### [facility] ([id number]) [address], [address] [place], [place] [address]Sgosisvzkft (Bld) [#/Vol]0.1 10*3/uLNormal0.0-0.4Memorial HospitalComment on above:Performed By: #### JOSHUA, BMP #### [facility] ([id number]) [address], [address] [place], [place] [address]Owoxalrzjhc/100 WBC (Bld)1.8 %[facility] Comment on above:Performed By: #### CBCMilton, BMP #### [facility] ([id number]) [address], [address] [place], [place] [address]Gmmtueezuwj distribution width (RBC) [Ratio]15.1 %High11.5-15.0 Memorial HospitalComment on above:Performed By: #### CBCMilton, BMP #### [facility] ([id number]) [address], [address] [place], [place] [address]Impdrqtnds (Bld) [Volume fraction]36.7 %Fae54-87UmxTscwmkCook Children'S Medical CenterComment on above:Performed By: #### CBCA, BMP #### [facility] ([id number]) [address], [address] [place], [place] [address]Olmiycrruo (Bld) [Mass/Vol]12.5 g/dLLow13.0-17.0Memorial HospitalComment on above:Performed By: #### CBCA, BMP #### [facility] ([id number]) [address], [address] [place], [place] [address]Lxiksumrnca (Bld) [#/Vol]1.4 10*3/uLNormal1.0-3.5POhio State East HospitalComment on above:Performed By: #### CBCA, BMP #### [facility] ([id number]) [address], [address] [place], [place] [address]Cilbzmlqqwm/100 WBC (Bld)21.3 %NormalProCook Children'S Medical Center Comment on above:Performed By: #### CBCA, BMP #### [facility] ([id number]) [address], [address] [place], [place] [address]PGL (RBC) [Entitic mass]30.1 jmTwurwh48-82NlmEecyiaCook Children'S Medical CenterComment on above:Performed By: #### CBCA, BMP #### [facility] ([id number]) [address], [address] [place], [place] [address]IKUA (RBC) [Mass/Vol]34.0 g/rFUrxvrd86-20EsyNeyatxCook Children'S Medical CenterComment on above:Performed By: #### CBCA, BMP #### [facility] ([id number]) [address], [address] [place], [place] [address]JKH (RBC) [Entitic vol]89 vJFzytpp49-559FxcQjibxd [facility] HospitalComment on above:Performed By: #### CBCA, BMP #### [facility] ([id number]) [address], [address] [place] [address]Noloylzwu (Bld) [#/Vol]0.6 10*3/uLNormal0-0.9Memorial HospitalComment on above:Performed By: #### CBCA, BMP #### [facility] ([id number]) [address], [address] [place] [address]Xeifnowvu/100 WBC (Bld)8.6 %NormalMemorial Hospital Comment on above:Performed By: #### CBCA, BMP #### [facility] ([id number]) [address], [address] [place] [address]Kihlbnlwjqn/100 WBC (Bld)67.9 %[facility] Comment on above:Performed By: #### CBCA, BMP #### [facility] ([id number]) [address], [address] [place] [address]Lphbfyny mean volume (Bld) [Entitic vol]8.0 fLNormal7-12 Memorial HospitalComment on above:Performed By: #### CBCA, BMP #### [facility] ([id number]) [address], [address] [place] [address]Rowmrssek (Bld) [#/Vol]205 10*3/hTUqbgrs855-793LbaRzcxwn [facility] HospitalComment on above:Performed By: #### CBCA, BMP #### [facility] ([id number]) [address], [address] [place] [address]DAB COUNT4.14 X10E12/LNormal4.10-5.70[facility] Comment on above:Performed By: #### CBCA, BMP #### [facility] ([id number]) [address], [address] [place], [place] [address]ESZ (Bld) [#/Vol]6.7 10*3/uLNormal4.0-11.0Memorial HospitalComment on above:Performed By: #### CBCA, ABDON #### [facility] ([id number]) [address] [place], [place] [address]ICE auto differentialon 35-56-6787Iweybbdcf (Bld) [#/Vol]0.0 10*3/uLProtestant Hospital SystemBasophils/100 WBC (Bld)0.4 %[facility] SystemEosinophils (Bld) [#/Vol]0.1 10*3/uLCommunity Memorial HospitalEosinophils/100 WBC (Bld)1.8 %Community Memorial HospitalErythrocyte distribution width (RBC) [Ratio]15.1 %High11.5 - 15.0 %Community Memorial HospitalHematocrit (Bld) [Volume fraction]36.7 %Low39 - 49 %Community Memorial HospitalHemoglobin (Bld) [Mass/Vol] 12.5 g/dLLow13.0 - 17.0 g/dLCommunity Memorial HospitalInterpretation and review of laboratory resultsAbnormalCommunity Memorial HospitalLymphocytes (Bld) [#/Vol]1.4 10*3/uLCommunity Memorial HospitalLymphocytes/100 WBC (Bld)21.3 %Community Memorial HospitalMCH (RBC) [Entitic mass]30.1 pg27 - 34 [facility] HospitalMCHC (RBC) [Mass/Vol]34.0 g/dL32 - 36 g/dLCommunity Memorial HospitalMCV (RBC) [Entitic vol]89 fL80 - 100 [facility] SystemMonocytes (Bld) [#/Vol]0.6 10*3/uLCommunity Memorial HospitalMonocytes/100 WBC (Bld)8.6 %[facility] Memorial HospitalNeutrophils (Bld) [#/Vol]4.6 10*3/uLCommunity Memorial HospitalNeutrophils/100 WBC (Bld)67.9 % Community Memorial HospitalPlatelet mean volume (Bld) [Entitic vol]8.0 fL7 - 12 fL Community Memorial HospitalPlatelets (Bld) [#/Vol]205 10*3/[facility] RBC (Bld) [#/Vol]4.14 10*6/[facility] ClareWBC corrected for nucl RBC Auto (Bld) [#/Vol]6.7ProPsychiatric hospital, demolished 2001 SystemECG 12 leadon 53-65-2250NEVCHHAQPTNRDDGdzZebgnk Health SystemAmbulatory Visit Summaryon 00-25-0295Bluzslvhuj Visit SummaryAmbulatory Visit Summary LAWSON VELA :1955 Visit Date:02/07/2024 Ambulatory Visit Instructions Your Diagnosis BPH with urinary obstruction OAB (overactive bladder) ED (erectile dysfunction) Your Care Team Attending Physician - APMELA BAER, Mac Stephenson Primary Care Physician - JAVAD DONATO MD This Is Your Medications List finasteride (finasteride 5 mg Tab) solifenacin (Vesicare 10 mg Tab) tamsulosin (tamsulosin 0.4 mg Cap) Contact prescribing physician if questions or concerns acetaminophen (Tylenol Extra Strength 500 mg oral tablet) acetaminophen-hydrocodone ([place] 325 mg-5 mg oral tablet) ascorbic acid (Vitamin C) cholecalciferol hydrochlorothiazide-irbesartan (hydrochlorothiazide-irbesartan 12.5 mg-150 mg Tab) magnesium glycinate (magnesium [...] Where: [facility] [address] , [place] [address]- Medications What How Much When Instructions Unchanged finasteride (finasteride 5 mg Tab) 1 Tablets By Mouth Every day Unchanged solifenacin (Vesicare 10 mg Tab) 1 Tablets By Mouth Every day Unchanged tamsulosin (tamsulosin 0.4 mg Cap) 1 Capsules By Mouth 2 times a day Unchanged acetaminophen (Tylenol Extra Strength 500 mg oral tablet) See instructions tab(s) mg Dhrrs2ff Contact prescribing physician if questions or concerns Unchanged acetaminophen-hydrocodone ([place] 325 mg-5 mg oral tablet) 1 Tablets By Mouth Every 6 hours Contact prescribing physician if questions or concerns Unchanged ascorbic acid (Vitamin C) Every day Contact prescribing physician if questions or concerns Unchanged cholecalciferol 1,250 Microgram Every day Contact prescribing physician if questions or concerns Unchanged hydrochlorothiazide-irbesartan (hydrochlorothiazide-irbesartan 12.5 mg-150 mg Tab) 1 Tablets By [...] gland that is caused by the normal agingprocess. The prostate may get bigger as a man gets older. The condition is not caused by cancer. The prostate is a walnut-sized gland that is involved in the production of semen. It is located in front of the rectum and below the bladder. The bladder stores urine. The urethra carries stored urine ou t of the body. An enlarged prostate can press on the urethra. This can make it harder to pass urine. The buildup of urine in the bladder can cause infection. Back pressure and infection may progress to bladder damage and kidney (renal) failure. What are the causes? This condition is part of the normal aging process. However, not all men develop problems from thiscondition. If the prostate enlarges away from the urethra, urine flow will not be blocked. If it enlarges toward the urethra and compresses it, there will be problems passing urine. What increases the risk? This condition is more likely to develop in men older than 50 ye (more content not included)...[facility] HospitalUrology Office/Clinic Noteon 40-33-8660Axctkuf Office/Clinic NoteUrology Office/Clinic Note Chief Complaint BPH with urinary [...] only had 1 slight episode and was asleepbut woke up and was able to finish [...] [facility] [address], [place] [address]- Additional Instructions: 1 yr Patient Education Benign [...] mg= 1 tab(s), Oral, Daily, 3 refills hydrochlorothiazide-irbesartan 12.5 mg-150 mg Tab, 1 tab(s), Oral, Daily magnesium glycinate 200 mg oral tablet, 200 mg= 1 tab(s), Oral, q24hr [place] 325 mg-5 mg oral tablet, 1 tab(s), [...] oral capsule, 1 c (more content not included)...[facility] HospitalComment on above:Result Comment: Electronically Signed By: Mac SANTIAGO MD\.br\Date and Time Signed: 02/07/24 11:34 EDT\.br\Electronically Co-Signed By: Linda George.br\Date and Time Co- Signed: 02/07/24 11:32 EDTXR Hip - right 3 Viewson 93-30-0084Ojxakng Result: August 09, 2013 x-rays AP and frog lateral of the right hip demonstrate a Press-Fit hip replacement in good position alignment without signs of loosening fracture or failure. Impression: Stable appearance of right total hip replacement Amauri Blair D.O.[facility] HealthcareRadiology Study observation (narrative)[facility] HealthcareXR Hip - right 3 ViewsOrdered By: Charissa Blair on 72-71-1108SRPN Healthcare Work Phone: ABO Rh Repeaton [phone] Hyde Medical Center Nom (Bld)[facility] HospitalProAccess Hospital Dayton SystemXR HIP RT 2-3 VIEWS W OR WO PELVISon 25-05-6869LD HIP RT 2-3 VIEWS W OR WO PELVISXR HIP RT 2-3 VIEWS W OR WO PELVIS XR HIP RT 2-3 VIEWS W OR WO PELVIS HISTORY: Hip replacement. COMPARISON: None. IMPRESSION: 1. Hip prosthesis noted without visible acute complication Finalized by Price Delcid MD on 07/07/2023 11:06 AMNProMedica Toledo HospitalXR Pelvis and Hip - right 2 Viewson 91-32-4139VI HIP RT 2-3 VIEWS W OR WO PELVIS HISTORY: Hip replacement. COMPARISON: None. IMPRESSION: 1. Hip prosthesis noted without visible acute complication Finalized by Price Delcid MD on 07/07/2023 11:06 Price Aguilar MD - 07/07/2023 XR HIP RT 2-3 VIEWS W OR WO PELVIS HISTORY: Hip replacement. COMPARISON: None. IMPRESSION: 1. Hip prosthesis noted without visible acute complication Finalized by Price Delcid MD on 07/07/2023 11:06 AM [facility] SystemRadiology Study observation (narrative)[facility] CenterOpez [facility] SystemXR Pelvis and Hip - right 2 ViewsOrdered By: Price Delcid on 07-07-[address] [facility] Medical CenterShopEat System Work Phone: CNOVon [phone] Visit (SPSLU) LAWSON VELA ([id number]) 1955 M [facility] Date Time Provider Department 04/13/23 11:00 AM LAILA LEWIS [facility] During your visit today, we recorded [...] walks or stands for long Intervention/Comfort measure: Medication;Reposition;Relaxation;Cold;Exercise;Heat;Massage;Pillow support;Positioning -- Comments: Pain management; steroid injections has been pain manegment but is not seeing any changes in the pain AMBULATORY STATUS: Independent Community Distances ANTIPLATELET OR ANTICOAGULATION STATUS: No PREVIOUS CONSERVATIVE TREATMENTS: See below Aquatic Therapy: 3 months ago which helped, will start it again. 3 days a week. 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 Prior to ablation symptoms on left have [...] PHQ-9 Self-harm Question 1 (more content not included)...[facility] XR lumbar spine 6V w bendingon 21-83-4994LS lumbar spine 6V w bendingDELAWARE COUNTY HOSPITAL [facility] [place] [address] [place] [address] XRay Report Signed Patient: Lawson Vela MR#: [id number] : 1955 Acct:[id number] Age/Sex: 67 / M ADM Date: 12/17/22 Loc: XD Room: Type: [facility] Attending Dr: Erica Xiong NP-C Copies [...] Cobian Jr., D.OFabio12/17/2022 3:16 PM Dictation Location: [place] [address] Transcribed By: [facility] 12/17/22 1516 Dictated By: Lenny Coiban Jr, DO 12/17/22 1514 Signed By: 12/17/22 1516[facility] HospitalXR lumbar spine 6V w bending [facility] [employer] Other XR lumbar spine 6V w bendingFRChillicothe Hospital [employer] Other XR lumbar spine 6V w uykpknx2678 [facility] [employer] Other XR lumbar spine 6[place] [address]Prov[address] [facility] [employer] Other XR lumbar spine 6V w bendingXRay ReportProvidence St. [facility] [employer] Other XR lumbar spine 6V w bendingSignedWoodbridge [employer] Other XR lumbar spine 6V w bendingPatient: Lawson Vela MR#: [id number] [employer] Other XR lumbar spine 6V w bendingDOB: 1955 Acct:[id number] [employer] Other XR lumbar spine 6V w bendingAge/Sex: 67 / M ADM Date: 12/17/22[place] [employer] Other XR lumbar spine 6V w bendingLoc: XD Room: Type: [facility] [employer] Other XR lumbar spine 6V w bendingAttending Dr: Erica Xiong [employer] Other XR lumbar spine 6V w bendingCopies to: AURELIANO [employer] Other XR lumbar spine 6V w bendingOrdering Provider: AURELIANO [employer] Other XR lumbar spine 6V w bendingDate of Service: 12/17/22 [place] [employer] Other XR lumbar spine 6V w bendingAccession #: ([id number]) XR/XR lumbar spine 6V w bending: M54.16[place] [employer] Other XR lumbar spine 6V w bendingLUMBAR SPINE - 6 views [place] [employer] Other XR lumbar spine 6V w bendingCLINICAL HISTORY: Right leg pain and numbness that radiates to toesWoodbridge [employer] Other XR lumbar spine 6V w bendingCOMPARISON: NoneWoodbridge [employer] Other XR lumbar spine 6V w bendingFINDINGS: Vertebral body heights appear maintained. Diffuse endplate and facet joint degenerativeWoodbridge Zero [employer] Other XR lumbar spine 6V w bendingchanges. Mild diffuse disc space narrowing with relative sparing of L5-S1. No pathological motionNoperry county memorial hospital [employer] Other XR lumbar spine 6V w bendingon flexion or extension views. Limited sidebending.[employer] Other XR lumbar spine 6V w bendingORDER #: [id number] XR/XR lumbar spine 6V w bendingWoodbridge [employer] Other XR lumbar spine 6V w bendingIMPRESSION:[employer] Other XR lumbar spine 6V w bendingDEGENERATIVE CHANGES OF THE LUMBAR SPINE WITH MILD DIFFUSE DISC SPACE NARROWING WITH RELATIVENoperry county memorial hospital [employer] Other XR lumbar spine 6V w bendingSPARING OF L5-S1.[employer] Other XR lumbar spine 6V w bendingImpression dictated by: Lenny Cobian Jr., D.OFabio12/17/2022 3:16 [facility] [employer] Other XR lumbar spine 6V w bendingDictation Location: [id number] [employer] Other XR lumbar spine 6V w bendingTranscribed By: PWS 12/17/[address] [place] [address] [employer] Other XR lumbar spine 6V w bendingDictated By: Lenny Cobian Jr, DO 12/17/22 [facility] HospitalArisoko Other XR lumbar spine 6V w bendingSigned By:[employer] Other XR lumbar spine 6V w ewaviyf86//23 1516[place] [employer] Other XR HIPS TRENT 3_4V WO PELVISon 42-23-4118WR HIPS TRENT 3_4V WO PELVISEXAMINATION: XR HIPS TRENT 3_4V WO PELVIS HISTORY: [...] Electronically authenticated by: DEVIN KNAPP Date: 2022-11-13 13:07[facility] HospitalMRI Lumbar Spine w/oon 51-44-4614MVE Lumbar Spine w/oCLINICAL HISTORY: Pain RADIATING TO THE LEFT LEG [...] and signed by YASMANY ARAYA on 05/01/2022 1217[facility] CenterXR Orbits for MRIon 04-24-6899KC Orbits for MRICLINICAL HISTORY: Prescreening for MRI. COMPARISON: None. RESULT: No radiopaque foreign bodies. No acute osseous findings. IMPRESSION: No radiopaque foreign bodies. Report reported and signed by Javad Dickens on 04/27/2022 1540NoGuernsey Memorial HospitalXR Spine Lumbar 4+ Views*on 92-66-8072IZ Spine Lumbar 4+ Views*FINDINGS: Vertebral body heights are normal. Mild disc [...] and signed by Lenny Cook on 04/06/2022 1106[facility] Vital Signs Date TimeVital SignValuePerforming JuqxqsyzhAfrzvelq61-93-1610 11:33-0400Body wemfcc620.4 cmKaren Hemmer PA Work Phone: [facility] Health CareQtljtkpghj06-52-8208 11:33-0400Body mass index (BMI) [Ratio]38.39 kg/t3Mzltu Hemmer PA Work Phone: [facility] CareSnxomnbldz11-99-0933 11:33-0400Body lnwgbu410 kg Alma Hemmer PA Work Phone: [facility] CareHbnmxdldao33-67-8552 11:33-0400Diastolic blood xvojgsnl89 mm[Hg]Alma Hemmer PA Work Phone: [phone] Health CareBiswdkxgin40-16-0452 11:33-0400Heart rate81 /min Alma Hemmer PA Work Phone: [facility] CareWxcazhlfpo14-04-6618 11:33-0400Respiratory rate16 /minHoldenen Hemmer PA Work Phone: [facility] CareAzqaelsqxk04-43-8496 11:33-5327GhX0% (BldA) [Mass fraction]96 %Alma Hemmer PA Work Phone: [facility] CareGrlnrjztwh63-37-7430 11:33-0400Systolic blood tgguhemy625 mm[Hg]Alma Hemmer PA Work Phone: [facility] CareZqxphcjhnz92-22-2652 10:57-0400Body ozegwf391.4 cmJavad Donato MD Work Phone: [facility] CareHxfkoplnua70-00-6700 10:57-0400Body mass index (BMI) [Ratio]38.52 kg/o5HuljtiJavad Donato MD Work Phone: [facility] CareIdcnbraeix14-53-8981 10:57-0400Body .45 kgJavad Donato MD Work Phone: [phone] Health CareXzqmxqsqmz56-99-0365 10:57-0400Diastolic blood legxupur38 mm[Hg]Javad Donato MD Work Phone: NOUniversity of [facility] Health CareRnczzyjbew37-36-9415 10:57-0400Heart rate82 /min Javad Donato MD Work Phone: [facility] CareFfxypzimhx70-03-7012 10:57-8626VqD9% (BldA) [Mass fraction]95 %Javad Donato MD Work Phone: [facility] CareJeocgsxkdd37-71-4678 10:57-0400Systolic blood cqvpoano703 mm[Hg]Javad Donato MD Work Phone: [facility] CareZklzdzvcmr39-56-6058 10:26-0500Body fujgdq260.4 cmKaren Hemmer PA Work Phone: [facility] CarePrkyyxorim64-06-2744 10:26-0500Body mass index (BMI) [Ratio]38.34 kg/a5Sddep Hemmer PA Work Phone: [facility] CareWhdywxjnjn82-20-0761 10:26-0500Body temperature 97.5 [degF]Alma Hemmer PA Work Phone: [facility] CareFjhvqcqvsd82-87-1442 10:26-0500Body xyhlnx288.81 kgKaren Hemmer PA Work Phone: [facility] CareJdlqwlhiog45-95-9004 10:26-0500Diastolic blood mm[Hg]Alma Hemmer PA Work Phone: [facility] CareOvwifrhyum31-41-2081 10:26-0500Heart rate88 /min Alma Hemmer PA Work Phone: [facility] CareRxjrmbddos03-07-2379 10:26-0500Respiratory rate18 /minKaren Hemmer PA Work Phone: [facility] CareXahemrjxhb87-11-8689 10:26-6134XmS6% (BldA) [Mass fraction]95 %Alma Hemmer PA Work Phone: [facility] CareFgswqmymmd14-06-6196 10:26-0500Systolic blood dxaeurrm657 mm[Hg]Alma Hemmer PA Work Phone: [facility] CareRpxoizpmsq99-25-3136 09:36-0500Body egnzvy899.4 cmJavad Donato MD Work Phone: [facility] CareKlrzfrhiua11-88-2040 09:36-0500Body mass index (BMI) [Ratio]37.6 kg/z5GzohlpJavad Donato MD Work Phone: [facility] CareFalcrgywgn42-24-6431 09:36-0500Body clebjn819.28 kgJavad Donato MD Work Phone: [facility] CareViisozicya08-31-4717 09:36-0500Diastolic blood dbwjsbej71 mm[Hg]Javad Donato MD Work Phone: [facility] CareZyjnhrigok75-38-8931 09:36-0500Heart rate98 /min Javad Donato MD Work Phone: [facility] CareTzcufrkpyi84-31-6333 09:36-8907SlT7% (BldA) [Mass fraction]97 %Javad Donato MD Work Phone: [facility] CareBbonusvqnb58-79-0392 09:36-0500Systolic blood bfslooft673 mm[Hg]Javad Donato MD Work Phone: [facility] CareVmwrhdprsz91-44-6537 13:49-0400Body .4 cmJavad Donato MD Work Phone: [facility] CareNtkekzeaiq01-34-5932 13:49-0400Body mass index (BMI) [Ratio]37.6 kg/d7CkdyyqJavad Donato MD Work Phone: [facility] CareUyylechwdu63-73-1865 13:49-0400Body xidgta880.28 kgJavad Donato MD Work Phone: [facility] CareLuordlzlyf44-95-1247 13:49-0400Diastolic blood mm[Hg]Javad Donato MD Work Phone: [facility] CareCnhlmwylle95-97-0134 13:49-0400Heart rate96 /min Javad Donato MD Work Phone: [facility] CareStxbasoegz23-58-2383 13:49-2076QoG7% (BldA) [Mass fraction]98 %Javad Donato MD Work Phone: [facility] CareJwdhikijoj76-36-5836 13:49-0400Systolic blood bzkqfkoc890 mm[Hg]Javad Donato MD Work Phone: [facility] CareHwbkpwiqpr33-97-2441 11:310400Body ijixoc551.4 cmCharissa Blair DO Work Phone: [facility] CareLlcnspuvkb42-61-3991 11:31-0400Body mass index (BMI) [Ratio]38.16 kg/e1QmvcjCharissa Blair DO Work Phone: [facility] CareWrpqwzgywq73-10-3198 11:31-0400Body .18 kgCharissa Blair DO Work Phone: [facility] CareWmyagtogis63-52-2415 09:12-0400Body paxkzs828.[address]10-08-2024 09:12-0400Body mass index (BMI) [Ratio] 37.34 kg/m[address]10-08-2024 09:12-0400Body uimikh000.[address]08-22-2024 10:18-0400Body iyknbk584.4 cmAlma Akins PA Work Phone: [facility] CareJaxnmemzeo88-38-8998 10:18-0400Body mass index (BMI) [Ratio]38.26 kg/t4Rkrnn Hemmer PA Work Phone: [facility] CareWwevslhdml15-02-3037 10:18-0400Body ansyqu037.54 kgAlma Hemmer PA Work Phone: [facility] CareNtpbvplffu42-43-8218 10:18-0400Diastolic blood yfqvwddo54 mm[Hg]Alma Akins PA Work Phone: [facility] CareFebnhwkreo29-20-7450 10:18-0400Heart rate82 /min Alma Hemerika PA Work Phone: [facility] CareIzelfnmkpr59-03-7832 10:18-6682XgF6% (BldA) [Mass fraction]96 %Alma Hemerika PA Work Phone: [facility] CareCqoyvykppf88-23-2105 10:18-0400Systolic blood rrwztuij105 mm[Hg]Alma Akins PA Work Phone: [facility] CareOumxflymja73-57-2949 10:23-0400Blood Pressure LocationParoxie SNATIAGO [facility]08-12-2024 10:23-0400Body tlrpaijpcpd01.6 [degF]Mac SANTIAGO [facility]08-12-2024 10:23-0400Diastolic blood wfufjhwc72 mm[Hg]Mac SANTIAGO [facility]08-12-2024 10:23-0400Heart rate75 /minMac SANTIAGO [facility]08-12-2024 10:23-0400Respiratory rate16 /minMac SANTIAGO [facility]08-12-2024 10:23-0400Systolic blood iqloeign372 mm[Hg]Mac SANTIAGO [facility]01-10-2024 12:48-0500Diastolic blood xtpkoorg53 mm[Hg]Charissa Blair DO Work Phone: [facility] Omdebw37-98-2799 12:48-0500Heart rate 88 /minCharissa Blair DO Work Phone: [facility] Mrhviw57-20-9658 12:48-0500 Respiratory rate22 /minCharissa Blair DO Work Phone: [facility] Lzghck39-55-4989 12:48-5261WpN9% (BldA) [Mass fraction]90 %Charissa Blair DO Work Phone: [facility] Jqzlwp68-12-1257 12:48-0500Systolic blood iwgubvrd701 mm[Hg]Charissa Blair DO Work Phone: [facility]01-10-2024 10:35-0500Body kctftuipbut49.3 [degF]Charissa Blair DO Work Phone: [facility]01-10-2024 06:25-0500Body paotsg050.4 cmCharissa Blair DO Work Phone: [facility]01-10-2024 06:25-0500Body mass index (BMI) [Ratio]36.41 kg/i2FljywCharissa Blair DO Work Phone: [facility]01-10-2024 06:25-0500Body inrvci469.19 kgCharissa Blair DO Work Phone: [facility]06-22-2023 13:00-0400Body .88 cmErica [employer] Other [employer] Other Phone: [phone] 13:00-0400Body mass index (BMI) [Ratio] 38.51 kg/w3Nocntul [employer] Other 06-22-2023 13:00-0400Body hiqzid638.82 kgXapotana [employer] Other 06-22-2023 13:00-0400Diastolic blood emuftdaa45 mm[Hg] Erica [employer] Other 06-22-2023 13:00-0400Systolic blood ekmdpclu941 mm[Hg] Erica [employer] Other [phone] 11:29-0500Blood Pressure LocationPatrick SANTIAGO [facility]12-05-2022 11:29-0500Diastolic blood tcjzlbpi67 mm[Hg]Mac SANTIAGO [facility]12-05-2022 11:29-0500Heart rate70 /minPatrick SANTIAGO [facility]12-05-2022 11:29-0500Respiratory rate16 /minPatrick SANTIAGO [facility]12-05-2022 11:29-0500Systolic blood cieibmva662 mm[Hg]Mac SANTIAGO [facility]08-22-2022 10:28-0400Blood Pressure LocationPatrick SANTIAGO [facility] 08-22-2022 10:28-0400Diastolic blood ytjumyrp64 mm[Hg] Mac SANTIAGO [facility] 08-22-2022 10:28-0400Heart rate68 /minPatrick SANTIAGO [facility] 08-22-2022 10:28-0400Respiratory rate16 /minPatrick SANTIAGO [facility] 08-22-2022 10:28-0400Systolic blood kbneihgl302 mm[Hg] Mac SANTIAGO [facility] Encounters Encounter DateEncounter TypeCare ProviderFacilityStart: 81-79-4763mmnxwfskkh Mac SANTIAGOFacility:[place]Start: 04-09-2025 End: 10-99-9590xppyqfajozCypimix Vytautas Giedraitis MDFacility:PM [place] Start: 02-19-2025 End: 63-73-3067itnfrdgvakZgwksdt Vytautas Giedraitis MDFacility:[facility] [place] Start: 02-05-2025 End: 66-52-7881rlxrvnfjfzSsjkowf R WATERSFacility:[facility] [place]Start: 02-05-2025 End: 69-65-0178Urtjfnq encounter procedureMac SANTIAGO [facility] start: 11-29-2024 End: 27-05-6859Lbpeomcindy HERNANDEZ Work Phone: [facility] CI FMStart: 11-29-2024 End: 87-79-4112Woedidkishan HERNANDEZ Work Phone: [facility] CI FMStart: 11-29-2024 End: 36-65-0121Lmhlty outpatient visit 25 minutesAlma HERNANDEZ Work Phone: [facility] CI FMComment on above:Herniated lumbar disc without myelopathy (Primary Dx); Benign essential hypertension (CMS/HCC); S/P total left hip arthroplasty; Tinea pedis of both feet; Skin irritation; Open wound of left lower leg, initial encounter; Class 2 severe obesity due to excess calories with serious comorbidity and body mass index (BMI) of38.0 to 38.9 in adult (CMS/HCC); Umbilical hernia without obstruction and without gangrene; Status post right hip replacementStart: 11-29-2024 End: 61-65-3364rnkjipemmaOKJNC M HEMMERNot AvailableStart: 11-27-2024 End: 13-46-2593Duobzsfng encounterJavad Donato MD Work Phone: [facility] CI FMComment on above:Med RefillStart: 11-27-2024 End: 20-11-9115nufbpmqipkApsdztxLidia Fletcher MDFacility:[facility] [place] Start: 11-06-2024 End: 51-71-2948nfrbsdawmtEituiruRamírez Fletcher MDFacility:[facility] [place] Start: 10-30-2024 End: 11-32-9500Nwmqvu Trina Hernández PLAYER MANAGER Work Phone: [facility] FB ORTHOPAEDICSStart: 10-30-2024 End: 68-12-7761Dubxzp flowsMikey Hernández PLAYER MANAGER Work Phone: [facility] FB ORTHOPAEDICSStart: 10-30-2024 End: 86-54-9195Ijhflq outpatient visit 15 minutesJose Hernández PLAYER MANAGER Work Phone: N[facility] FB ORTHOPAEDICSComment on above:S/P total left hip arthroplasty (Primary Dx); Left hip painStart: 10-30-2024 End: 00-31-0359kvvauoejnkLTRFE T OLSENNot AvailableStart: 10-25-2024 End: 09-94-3600Llfypx Yury Donato MD Work Phone: [facility] CI FMStart: 10-25-2024 End: 51-14-7349Yfieqfcindy Donato MD Work Phone: [facility] CI FMStart: 10-25-2024 End: 94-30-2260Pctcqf outpatient visit 25 minutesDaely Donato MD Work Phone: [facility] CI FMComment on above:Herniated lumbar disc without myelopathy; IGT (impaired glucose tolerance); Class 2 severe obesity with serious comorbidity and body mass index (BMI) of 37.0 to 37.9 in adult,unspecified obesity type (CMS/HCC); Morbid (severe) obesity due to excess calories (CMS/HCC); Essential (primary) hypertension (CMS/HCC); Body mass index (BMI) 38.0-38.9, adultStart: 10-25-2024 End: 46-07-6335vzfefgxhhbAFQSIT B BERRYNot AvailableStart: 09-21-2024 End: 56-32-3472Kmcjexmeh encounterDaely Donato MD Work Phone: [facility] CI FMStart: 07-31-2024 End: 48-51-1935Ydicga flowsMikey Brett Shimon PLAYER MANAGER Work Phone: [phone] FB ORTHOPAEDICSStart: 07-31-2024 End: 43-60-5392Jjrhbt flowsMikey Hernández PLAYER MANAGER Work Phone: [facility] FB ORTHOPAEDICSStart: 07-31-2024 End: 89-91-0894Vssqbl follow up visit related to original vedaJose Brett Shimon PLAYER MANAGER Work Phone: [facility] FB ORTHOPAEDICSComment on above:S/P total left hip arthroplasty (Primary Dx)Start: 07-31-2024 End: 74-85-0326nxagsvgsavXWMTO T OLSENNot AvailableStart: 07-27-2024 End: 79-55-1107Eqithv Jose Miguel HERNANDEZ Work Phone: [phone] CI FMStart: 07-27-2024 End: 23-26-5085Tuqfyf Jose Miguel HERNANDEZ Work Phone: [phone] CI FMStart: 07-27-2024 End: 56-86-6197Vyktfr outpatient visit 15 minutesAlma HERNANDEZ Work Phone: [phone] CI FMComment on above:Acute non-recurrent frontal sinusitis (Primary Dx); Herniated lumbar disc without myelopathyStart: 07-27-2024 End: 35-79-0136zltfzzefymEAUPHIzabella Liao AvailableStart: 07-21-2024 End: 91-23-9911ruxeuirlwmTflfbvxf Wright GOLF CADDY Work Phone: [facility] FB PTComment on above:Left hip pain (Primary Dx); S/P total left hip arthroplastyStart: 07-14-2024 End: 68-40-9077copilaplaqUsnvjhyb Wright GOLF CADDY Work Phone: [facility] FB PTComment on above:Left hip pain (Primary Dx); S/P total left hip arthroplastyStart: 07-12-2024 End: 66-76-8065Klzxzg NUOFFERJeanna Mendiola GOLF CADDY Work Phone: [facility] FB PTStart: 07-12-2024 End: 29-85-7523Uorqki DeskActiveSeth Mendiola GOLF CADDY Work Phone: NONW FB PTStart: 07-12-2024 End: 57-97-7003nhlguwbxlfBndosbhn Mendiola GOLF CADDY Work Phone: [facility] FB PTComment on above:Left hip pain (Primary Dx); S/P total left hip arthroplastyStart: 07-07-2024 End: 24-67-4556Xhsnmu DeskActiveSeth Mendiola GOLF CADDY Work Phone: [facility] FB PTStart: 07-07-2024 End: 59-44-7610Npxpcf DeskActiveSeth Mendiola GOLF CADDY Work Phone: [facility] FB PTStart: 07-07-2024 End: 44-99-4507rvjiwjgodaYviipneu Mendiola GOLF CADDY Work Phone: [facility] FB PTComment on above:Left hip pain (Primary Dx); S/P total left hip arthroplastyStart: 07-06-2024 End: 17-85-3611almxmsovxfPAFD GANTZNot AvailableStart: 07-05-2024 End: 55-77-6561dpuaoagqqvSwvewlkh Wright GOLF CADDY Work Phone: N[facility] FB PTComment on above:Left hip pain (Primary Dx); S/P total left hip arthroplastyStart: 07-03-2024 End: 14-80-2347Qapnvb Trina Hernández PLAYER MANAGER Work Phone: [facility] FB ORTHOPAEDICSStart: 07-03-2024 End: 05-19-7234Wjnwpr Trina Hernández PLAYER MANAGER Work Phone: [facility] FB ORTHOPAEDICSStart: 07-03-2024 End: 32-71-6499Kdqgxr follow up visit related to original [place] Hernández PLAYER MANAGER Work Phone: noms FB ORTHOPAEDICSComment on above:S/P total left hip arthroplasty (Primary Dx)Start: 07-03-2024 End: 32-47-8373nuxpoajzvaLGLEN Brett Wall AvailableStart: 06-30-2024 End: 05-68-5409Apengm NUOFFERJeanna Mendiola GOLF CADDY Work Phone: NODN FB PTStart: 06-30-2024 End: 11-17-6079Txxljh DeskActiveheetVIVAcele Mendiola GOLF CADDY Work Phone: NOJB FB PTStart: 06-30-2024 End: 25-07-7630rhtjqrgvdeBlanucrq Wright GOLF CADDY Work Phone: noms FB PTComment on above:Left hip pain (Primary Dx); S/P total left hip arthroplastyStart: 06-26-2024 End: 96-42-7997Rbpzrk flowsheetMariah Tattersall PTANOMS FB PTStart: 06-26-2024 End: 28-63-0816Lzochr flowsheetMariah Tattersall PTANOMS FB PTStart: 06-26-2024 End: 33-42-6624zyhsbqwuhuMpipgg Tattersall PTANOMS FB PTComment on above:Left hip pain (Primary Dx); S/P total left hip arthroplastyStart: 06-22-2024 End: 86-53-7914hmyecvkqxiCSUGAZ B BERRYNot AvailableStart: 06-20-2024 End: 24-53-8774Iomxjt flowsheetKyle J Narendra PT Work Phone: NOQN FB PTStart: 06-20-2024 End: 40-99-5713Locabp flowsheetKyle J Narendra PT Work Phone: noms FB PTStart: 06-20-2024 End: 96-70-7317fvdqlzdxjxTtyp J Narendra PT Work Phone: NORT FB PTComment on above:Left hip pain (Primary Dx); S/P total left hip arthroplastyStart: 06-14-2024 End: 89-73-5081Lipeyt flowsYadiel Donato MD Work Phone: noms CI FMStart: 06-14-2024 End: 62-30-8417Jwbqaa flowsYadiel Donato MD Work Phone: [facility] CI FMStart: 06-14-2024 End: 93-55-7770Tyuvb of hemosiderin, quantJavad Donato MD Work Phone: NOIU HealthcareStart: 06-14-2024 End: 26-04-0254Abnzkda encounter procedureJavad Donato MD Work Phone: noms CI FMComment on above:Routine general medical examination at health care facility (Primary Dx); ACP (advance care planning); Benign essential hypertension (CMS/HCC); IGT (impaired glucose tolerance); Atherosclerosis of aorta (CMS/HCC); Class 2 severe obesity with serious comorbidity and body mass index (BMI) of 37.0 to 37.9 in adult,unspecified obesity type (CMS/HCC); Screening for prostate cancer; Flu vaccine need; Herniated lumbar disc without myelopathy; Claudication (CMS/HCC)Start: 06-14-2024 End: 64-58-8824rfbwpcjfvyBDXIZL B BERRYNot AvailableStart: 06-12-2024 End: 91-85-6353Pwumkk Trina Hernández NP Work Phone: noms FB ORTHOPAEDICSStart: 06-12-2024 End: 21-15-9828Dbwhbx Trina Hernández PLAYER MANAGER Work Phone: NOFV FB ORTHOPAEDICSStart: 06-12-2024 End: 32-88-0346Djkpzv follow up visit related to original [place] Hernández PLAYER MANAGER Work Phone: noms FB ORTHOPAEDICSComment on above:S/P total left hip arthroplasty (Primary Dx); Left hip painStart: 06-12-2024 End: 04-17-9229flylulokshCLCOR T OLSENNot AvailableStart: 05-16-2024 End: 77-09-7088Adxlyj Funmilayo Blair DO Work Phone: noms CI ORTHOPAEDICSStart: 05-16-2024 End: 47-55-0834Gmibjs flowsheetJabranden A Rossy DO Work Phone: noms CI ORTHOPAEDICSStart: 05-16-2024 End: 42-37-6867Bwieig follow up visit related to original Nabila Blair DO Work Phone: noms CI ORTHOPAEDICSComment on above:S/P total left hip arthroplasty (Primary Dx)Start: 05-16-2024 End: 55-48-8523bvxbxlxpenDGFUO A JANNYSTONNot AvailableStart: 05-09-2024 End: 46-66-0243Jzxzwy flowsheetJames A Rossy DO Work Phone: n[facility] CI ORTHOPAEDICSStart: 05-09-2024 End: 18-80-9088Qjzuaw flowsheetJames A Rossy DO Work Phone: noms CI ORTHOPAEDICSStart: 05-09-2024 End: 59-71-7483Rrvdrq follow up visit related to original Nabila Blair DO Work Phone: noms CI ORTHOPAEDICSComment on above:S/P total left hip arthroplasty (Primary Dx)Start: 05-09-2024 End: 88-56-8208cnlokpzoozGVYFZ A JANNYSTONNot AvailableStart: 05-08-2024 End: 25-72-9323Cqaeltjnt Maddi Hernández NP Work Phone: noms FB ORTHOPAEDICSStart: 05-04-2024 End: 86-21-3774Wguclymbc encounterJames A Rossy DO Work Phone: noms SWS ORTHOComment on above:DischargeStart: 05-03-2024 End: 41-79-4332qrhgdhaxoxETGBJ A BREEZYDLESTONProMedica Divernon HospitalStart: 05-02-2024 End: 11-08-2178YznvtbQfzei T Olsen NP Work Phone: noms FB ORTHOPAEDICSComment on above:Post-operative pain (Primary Dx)Start: 04-17-2024 End: 08-74-6297Jiqmnj Yury Donato MD Work Phone: [facility] CI FMStart: 04-17-2024 End: 90-30-8153Ilixot Yury Donato MD Work Phone: [facility] CI FMStart: 04-17-2024 End: 57-40-0997Wckevc outpatient visit 25 minutesJavad Donato MD Work Phone: N[facility] CI FMComment on above:Primary osteoarthritis of left hip (Primary Dx); Benign essential hypertension (CMS/HCC); Class 2 severe obesity with serious comorbidity and body mass index (BMI) of 37.0 to 37.9 in adult,unspecified obesity type (CMS/HCC)Start: 04-17-2024 End: 47-86-1809eoslgoagbxEYLJYU B BERRYNot AvailableStart: 04-12-2024 End: 43-52-2529WlxkyhBfjovm B Berry MD Work Phone: [facility] CI FMComment on above:Herniated lumbar disc without myelopathy (Primary Dx)Status post right hip replacementStart: 04-06-2024 End: 08-66-0643Niaqzh Trina Hernández NP Work Phone: [facility] FB ORTHOPAEDICSStart: 04-06-2024 End: 42-45-2767Hevauy Trina Hernández PLAYER MANAGER Work Phone: N[facility] FB ORTHOPAEDICSStart: 04-06-2024 End: 68-32-4724Uipljz outpatient visit 40 minutesCharsisa Blair DO Work Phone: noMS FB ORTHOPAEDICSComment on above:Left hip pain; Arthritis of left hipStart: 04-06-2024 End: 43-93-3901fphqcwfrmxXAVDGHazel BLAIRNot AvailableStart: 04-04-2024 End: 55-60-0997Pdvkfpj encounter [facility] [address] [place] [address] - Pre AdmitComment on above:Preop examination (Primary Dx); Hypertension, unspecified typeStart: 04-04-2024 End: 09-08-9716Fkzlbczjwgplq examination [address]tart: 04-04-2024 End: 53-12-2684jagzldktdvWMNBB A JANNYSTONParkview Health Bryan Hospitaltart: 03-15-2024 End: 48-33-0438Reaqjgayy encounterNagi Plata PT Work Phone: N[facility] FB PTStart: 02-17-2024 End: 91-99-9275Qrfdzk outpatient visit 15 minutesAlma Akins PA Work Phone: [facility] CI FMComment on above:Acute pharyngitis, unspecified etiology (Primary Dx)Start: 02-17-2024 End: 75-24-8524bznappxqymNCLHZ M HEMMERNot AvailableStart: 02-07-2024 End: 37-46-3322kkptypmpacEekfxhf R WATERSFacility:[facility] [place]Start: 02-07-2024 End: 17-33-8194Ezddxkw encounter procedureMac SANTIAGO [facility] start: 01-27-2024 End: 34-80-0164xgujtaohppKCRAQ A ROSSYNot AvailableStart: 01-21-2024 End: 14-01-9663jhumvaupvkVKMWWIzabella Liao AvailableStart: 12-16-2023 End: 57-84-0363dshxcqweffLMGAD A HUDDLESTONNot AvailableStart: 12-13-2023 End: 96-75-0487dntldyjravLLKZM T OLSENNot AvailableStart: 55-40-3115Yzwaap Екатерина Mendiola GOLF CADDY Work Phone: N[facility] FB PTStart: 59-78-5294Bhwmdz Екатерина Mendiola GOLF CADDY Work Phone: NOM[facility] FB PTStart: 08-09-2023 End: 50-66-1434Imecgr follow up visit related to original [place] Hernández PLAYER MANAGER Work Phone: NOJR FB ORTHOPAEDICSComment on above:Primary osteoarthritis of right hip; Status post right hip replacementStart: 08-09-2023 End: 99-09-8630dycfoublhdOuinunch [facility] Work Phone: NOFK FB PTComment on above:Right hip pain (Primary Dx); Status post total hip replacement, right; Arthritis of right hipStart: 08-06-2023 End: 55-28-4963yswroqxikvKubzahag Mendiola GOLF CADDY Work Phone: NOLK FB PTComment on above:Right hip pain (Primary Dx); Status post total hip replacement, right; Arthritis of right hipStart: 68-10-0551Shqbgt Backlift [facility] Work Phone: NOAR FB PTStart: 01-41-6299Xjeefz Backlift Mendiola GOLF CADDY Work Phone: NONK FB PTStart: 08-02-2023 End: 14-36-2682djbxysrlulMmrgpplf Mendiola GOLF CADDY Work Phone: NOKN FB PTComment on above:Right hip pain (Primary Dx); Status post total hip replacement, right; Arthritis of right hipStart: 07-29-2023 End: 76-04-2275vioezxhgcfYwpu J Spriggs PT Work Phone: noms FB PTComment on above:Right hip pain (Primary Dx); Status post total hip replacement, rightStart: 07-08-2023 End: 84-86-0203gwdnmzcqksVTVKI M [facility]MERSDayton [facility] Hospital HospitalStart: 07-07-2023 End: 86-13-2762lhjudmthtaNDKJVHazel BLAIRDayton Children's Hospital HospitalStart: 07-07-2023 End: 82-22-0644uhnqakwujwQPTOVHazel BLAIRDayton Children's Hospital HospitalStart: 07-07-2023 End: 69-20-9873Mryruhhkwj hospital visit by Sage Blair DO Work Phone: [facility] SurgeryStart: 07-05-2023 End: 75-08-4802uvjsngdwalWBXXS A [facility] HospitalStart: 30-59-7065Hnretofgz for other preprocedural examinationJAMES German Hospitaltart: 04-13-2023 End: 88-25-3559qbkiwuhxrmBZJF E ANDERSONFacility:[facility] Hospitaltart: 04-13-2023 End: 44-69-3618Jezomzk encounter Shay Lewis PA-C Work Phone: Spine InstituteComment on above:Spinal stenosis, lumbar region with neurogenic claudication (Primary Dx); Bilateral hip joint arthritisStart: 44-86-0618Wxlry abstractNamrata Monroe MD Work Phone: NeurologyStart: 12-17-2022 End: 06-26-8983Tkzvply encounter procedureII Javad Donato Work Phone: [facility] Work Phone: Start: 12-17-2022 End: 02-43-6463zowbdagybuRA Javad Donato Work Phone: [facility] Work Phone: Start: 92-35-8176Xexodrbmq for other specified special examinationsJessica [facility] [place] NeurosurgeryStart: 04-59-9959Aaqaec outpatient new 45 minutesJessica [facility] [place] NeurosurgeryStart: 11-24-2022 End: 65-95-5895azfxnfnppxJLGGVSPNAGQU LAKSHMIPATHY .Facility:C8Jmiyb: 11-13-2022 End: 16-90-5876oiwldddkazKEXKRDMNWSFX LAKSHMIPATHY .Facility:V2Meudq: 11-10-2022 End: 56-97-2714sjmotjnhajXINSJWRMYMXM LAKSHMIPATHY .Facility:M5Wpbav: 10-08-2022 End: 15-22-5887rtoslmpkjeGOSDKQCWXLIJ LAKSHMIPATHY .Facility:B5Hrbrr: 09-10-2022 End: 36-03-6323aautvqlepyXR ANTIONE S HAWTHORNE .Facility:K1Ivgjz: 91-95-2358Bdtlbzdkn for preprocedural cardiovascular examinationDR ANTIONE S [place] .[facility]ertart: 08-11-2022 End: 29-28-8645ueioffqgepXE ANTIONE S [place] .Facility:V9Ytpzm: 08-07-2022 End: 40-27-6294frsbjfmbsgHR ANTIONE S [place] .Facility:H0Ntqdp: 08-07-2022 End: 82-50-7781Nrnnhxgkk for preprocedural cardiovascular examinationDR ANTIONE S [place]TH[place] .Facility:H4Dehgh: 07-23-2022 End: 58-15-1156gmagfhifsvBO ANTIONE S [place] .Facility:T8Lzqnv: 07-07-2022 End: 59-47-2325aktrtoswbcKL ANTIONE S [place] .Facility:W4Whocl: 06-25-2022 End: 69-28-7604wimwwqthivYB ANTIONE S [place] .Facility:G9Xtnjk: 06-09-2022 End: 54-46-8671nmctsloxrrCX ANTIONE S [place] .Facility:L3Ekyxr: 06-01-2022 End: 65-02-2546Dwmlilm encounter procedurePatrick Sachin [facility] start: 05-19-2022 End: 79-94-2661ztwhqleoycXZ ANTIONE S [facility] .Facility:K7Rrxwk: 05-05-2022 End: 04-25-4615lseehvybspVE ANTIONE S [facility] .Facility:I6Ysmqn: 04-28-2022 End: 78-87-0502xasudvwhqdNH ANTIONE S [facility] .Facility:B1Fotoe: 04-27-2022 End: 92-77-1314slpicakqhuPN JAVAD Elizabethcility:P2Pewaz: 02-16-2022 End: 29-05-4268Mdtaffn encounter procedurePatrick Sachin [facility] Procedures DateProcedureProcedure DetailPerforming ClinicianStart: 64-85-5290Xzocc hip unilateral with pelvis 2-3 viewsJose Hernández NP Work Phone: Start: 11-69-8163Gbirybcbjn glycosylated n2gIhppcoely Donato MD Work Phone: Start: 35-41-6743Wfmwf hip unilateral with pelvis 2-3 viewsJose Hernández PLAYER MANAGER Work Phone: Start: 76-02-4501Tgjwd hip unilateral with pelvis 2-3 viewsJames A Rossy DO Work Phone: Start: 29-29-3947Wbafg hip unilateral with pelvis 2-3 viewsJose Hernández PLAYER MANAGER Work Phone: Start: 62-24-4399Vhjdy hip unilateral with pelvis 2-3 viewsJames A Rossy DO Work Phone: Start: 07-12-7198OPMVSFNJ ABORHJames A Rossy DO Work Phone: Start: 33-83-3168Z-ray of lumbar spine, six views including bending viewsII Javad Donato Work Phone: Start: 64-03-1119Qsiahuccuw studiesPatrick SANTIAGO Start: 28-69-6233JbuwzptazyEsihodp WATERS Start: 13-61-0965QpnsropxxjiDrks Narendra PT Work Phone: Start: 07-51-3122MicnojkxyHpbbsej SANTIAGO Start: 09-48-4145HpzzmdihokzwWntsftb SANTIAGO Carpal tunnel syndrome (disorder)Mac SANTIAGO ColonoscopyPatriccamila SANTIAGO Repair of joint of right hipPatrick SANTIAGO Plan of Treatment DateCare ActivityDetailAuthorStart: 65-45-6684YOkU,Tdap and Td Vaccines (2 - Td or Tdap)DTaP,Tdap and Td Vaccines (2 - Td or Tdap)[facility]: 62-25-8510Pcbeqndua for malignant neoplasm of colonNOMS HealthcareStart: 12-18-2025Medicare Annual Wellness (AWV)Medicare Annual Wellness (AWV)[facility] HealthcareStart: 04-30-2025 End: 97-49-6428Xtepegb encounter ofvuvlrbg33/03/2025 8:00 AM EST Office Visit [facility] [address] [place] [id number] Jose Hernández, PLAYER MANAGER [address] [facility], [place] [id number] [facility]Start: 04-26-2025 End: 59-54-5781Pbpmvkf encounter /30/2025 9:00 AM EDT Office Visit [facility] FM [address] [place] [address] Javad Donato MD [address] [place] [address] NOMS CI FMStart: 86-54-7683Aetth BMI ScreeningAdult BMI ScreeningProHolzer Medical Center [facility]ca [facility] SystemStart: 03-08-0185Nmmjuxn ScreeningTobacco ScreeningProHolzer Medical Center – [facility]ca [facility] SystemStart: 11-29-2024 End: 36-30-4048Maerwvu encounter procedureNOMS CI FMComment on above:Arrived Start: 10-30-2024 End: 76-58-3861Umzkind encounter procedureNOMS FB ORTHOPAEDICSComment on above: Left hip painStart: 10-25-2024 End: 98-84-8473Ifvlrsk encounter rpjuvkbqk65/30/2025 10:45 AM EDT Office Visit [facility] [address] [place], [place] [address] Javad Donato MD [address] [place] [address] ArrivedNOMS CI FMComment on above:ArrivedStart: 10-23-2024 End: 24-61-1708Aupeoxy encounter zkmwbkibz73/28/2025 10:00 AM EDT Office Visit [facility] [address] [place] [address] Javad Donato MD [address] [place] [address] NOMS CI FMStart: 07-31-2024 End: 33-66-8033Ltketgw encounter procedureNOMS FB ORTHOPAEDICSComment on above: ArrivedStart: 07-27-2024 End: 46-11-2569Whvioib encounter /30/2025 10:30 AM EST Office Visit [facility] [address] [facility] [address] [place] [address] Alma Akins PA [address] [facility] [address] [place] [address] ArrivedNOMS CI FMComment on above:ArrivedStart: 07-21-2024 End: 01-64-2555oowqpwybji94/24/2025 7:30 AM EST Treatment [facility] FB PT [address] [facility] [address] Jeanna Mendiola, GOLF CADDY [address] [place] [address] NOMS FB PTStart: 07-14-2024 End: 13-75-3758lmncecpxkoERYR FB PTStart: 07-12-2024 End: 76-44-3592sqbasffmksEWGV FB PTComment on above:ArrivedStart: 07-07-2024 End: 86-25-0695ofjracewox73/10/2025 7:30 AM EST Treatment [facility] FB PT [address] [place] [address] Jeanna Mendiola, GOLF CADDY [address] [place] [address] NOMS FB PTStart: 07-06-2024 End: 33-82-4443Kfgyvuejnriv / ancillary services prdblfrapl67/09/2025 8:00 AM EST Ancillary Procedure [facility] MR [address] [place] [address] RGZJ SH MRStart: 07-05-2024 End: 72-67-7282ffvnfpcajv88/08/2025 7:30 AM EST Treatment [facility] FB PT [address] [place] [address] Jeanna Mendiola, GOLF CADDY [address] [place] [address] NOMS FB PTStart: 07-03-2024 End: 04-92-3531Ksxovtx encounter procedureNOMS FB ORTHOPAEDICSComment on above: ArrivedStart: 06-30-2024 End: 50-76-6803crzbtxrdagOBCG FB PTComment on above:ArrivedStart: 06-29-2024 End: 62-99-9940zgnxexmrxx87/02/2025 7:30 AM EST Treatment [facility] SWS PT [address] [facility] [address] [place] [address] Kailey Goldman, GOLF CADDY NOMS SWS PTStart: 06-26-2024 End: 68-06-2808lrwvtefcdhYISB FB PTComment on above:ArrivedStart: 06-22-2024 End: 44-33-0961Vhkkvacjupiz / ancillary services hattlqptra49/26/2024 3:15 PM EST Ancillary Procedure [facility] FNR ULTRASOUND [address] [facility] [address] [place] [address] NOMS FNR ULTRASOUNDStart: 06-20-2024 End: 87-17-3808bizwzmmggc78/24/2024 7:00 AM EST Evaluation [facility] FB PT [address] [facility] [address] Nagi Plata, PT [address] [place] [address] NOMS FB PTStart: 06-14-2024 End: 47-17-9873XVC panel - Blood by Automated countCBC Lab Routine Benign essential hypertension (CMS/HCC) IGT (impaired glucose tolerance) Atheroscler osis of aorta (CMS/HCC) Class 2 severe obesity with serious comorbidity and body mass index (BMI) of 37.0 to 37.9 in adult, unspecified obesity type (CMS/HCC) Expected: 06/14/2024 (Approximate), Expires: 06/14/2025NOMS HealthcareComment on above:Expected: 06/14/2024 (Approximate), Expires: 06/14/2025Start: 06-14-2024 End: 61-33-0917Edejfujrsgszn metabolic 2000 panel - Serum or PlasmaComprehensive metabolic panel Lab Routine Benign essential hypertension (CMS/HCC) IGT (impaired glucose tolerance) Atherosclerosis of aorta (CMS/HCC) Class 2 severe obesity with serious comorbidity and body mass index (BMI) of 37.0 to 37.9 in adult, unspecified obesity type (CMS/HCC) Expected: 06/14/2024 (Approximate), Expires: 06/14/2025NONE HealthcareComment on above:Expected: 06/14/2024 (Approximate), Expires: 06/14/2025Start: 06-14-2024 End: 57-22-8441Gcqtynhina A1c/Hemoglobin.total in BloodHemoglobin A1c Lab Routine Benign essential hypertension (CMS/HCC) IGT (impaired glucose tolerance) Atherosclerosis of aorta (CMS/HCC) Class 2 severe obesity with serious comorbidity and body mass index (BMI) of 37.0 to 37.9 in adult, unspecified obesity type (CMS/HCC) Expected: 06/14/2024 (Approximate), Expires: 06/14/2025 NOMS HealthcareComment on above:Expected: 06/14/2024 (Approximate), Expires: 06/14/2025Start: 06-14-2024 End: 35-76-2120Sturq 1996 panel - Serum or PlasmaLipid panel Lab Routine Benign essential hypertension (CMS/HCC) IGT (impaired glucose tolerance) Ath erosclerosis of aorta (CMS/HCC) Class 2 severe obesity with serious comorbidity and body mass index(BMI) of 37.0 to 37.9 in adult, unspecified obesity type (CMS/HCC) Expected: 06/14/2024 (Approximate), Expires: 06/14/2025[facility] Comment on above:Expected: 06/14/2024 (Approximate), Expires: 06/14/2025Start: 06-14-2024 End: 74-55-4276Nvwcinsf specific Ag [Mass/volume] in Serum or PlasmaPSA Lab Routine Screening for prostate cancer Expected: 06/14/2024 (Approximate), Expires: 06/14/2025[facility] Work Phone: Comment on above:Expected: 06/14/2024 (Approximate), Expires: 06/14/2025Start: 06-14-2024 End: 65-63-9353PO.doppler Lower extremity artery - bilateralVascular US lower extremity arterial duplex bilateral Imaging Routine Claudication (CMS/HCC) Expected: 06/14/2024, Expires: 06/14/2025[facility] HealthcareComment on above: Expected: 06/14/2024, Expires: 06/14/2025Start: 06-14-2024 End: 80-48-0083Qilbcsm encounter procedureNOMS CI FMComment on above:Arrived Start: 06-12-2024 End: 03-38-6786Khaqxsg encounter procedureNOMS FB ORTHOPAEDICSComment on above: ArrivedStart: 11-20-2024Medicare Annual Wellness (AWV)Medicare Annual Wellness (AWV)NOMS HealthcareStart: 05-16-2024 End: 11-94-3717Dzpclsk encounter procedureNOMS CI ORTHOPAEDICSComment on above: ArrivedStart: 05-11-2024 End: 89-61-3514Vdqoxrg encounter otxgicszs72/14/2024 10:45 AM EST Office Visit [facility] ORTHOPAEDICS [address] [place] [address] Charissa Blair, DO [address] [facility] [address] [place] [address] NOMS FB ORTHOPAEDICSStart: 05-09-2024 End: 92-44-6778Tevfhka encounter /12/2024 10:30 AM EST Office Visit [facility] ORTHOPAEDICS [address] [place] [address] Charissa Blair, DO [address] [place] [address] NOMS CI ORTHOPAEDICSStart: 05-03-2024 End: 60-81-0191Cohhzfwct to same day surgery qcvdwd7805/03/2024 7:45 AM EST - 05/03/2024 10:00 AM EST Surgery [facility] Surgery [address] [place] [address] Charissa Blair, DO [address] [place] [address] REPLACEMENT TOTAL JOINT HIP [05782 (CPT )][facility] - SurgeryComment on above:REPLACEMENT TOTAL JOINT HIP [80989 (CPT )]Start: 05-03-2024 End: 18-85-0354Pdzzit acetblr/prox fem prostc agrft/algrftREPLACEMENT TOTAL JOINT HIP left hip degenerative joint disease 05/03/2024 7:45 AM ESTFREMONT SURGERYStart: 89-96-2448Baxsaztpbw hospital visit by vgpqhjesq74/06/2024 7:45 AM EST Hospital Encounter [facility] - Surgery [address] [place] [address] Charissa Blair, DO [address] [facility] [address] [place] [address] [facility] - SurgeryStart: 05-03-2024 End: 21-95-1539Ibwnaaf encounter phqioougr95/06/2024 7:30 AM EST Procedure Visit [facility] EXT DEP Charissa Blair, DO [address] [place] [address] NOMS EXT DEPStart: 04-24-2024 End: 59-74-4990Fzfgpsouxh RBCCrossmatch RBC Blood Bank Routine Preop examination Hypertension, unspecified type Expected: 04/24/2024, Expires: 03/06/2025 [facility]Comment [facility]:Expected: 04/24/2024, Expires: 03/06/2025Start: 04-24-2024 End: 84-55-5604Jcmr and screen(includes indirect phill)Type and screen(includes indirect phill) Blood Bank Routine Preop examination Hypertension, unspecified type Expected: 04/24/2024, Expires: 03/06/2025[facility] Work Phone: Comment on above:Expected: 04/24/2024, Expires: 03/06/2025Start: 04-17-2024 End: 52-13-4911Alibyrr encounter procedureNOMS CI FMComment on above:Arrived Start: 04-06-2024 End: 01-65-1785Qdewiem encounter procedureNOMS FB ORTHOPAEDICSComment on above: Left hip pain; Arthritis of left hipStart: 03-08-2024 End: 85-16-0637Xoeyfoz encounter wmtvxwwqe50/11/2024 11:15 AM EDT Office Visit [facility] CI FM [address] [facility] [address] [place] [address] Javad Donato MD [address] [facility] [address] [place] [address] NOMS CI FMStart: 06-57-4243Ttdevkmhg vaccinationLAKEVIEW HOSPITAL HealthcareStart: 09-20-2023 End: 64-67-3999Degrfdf encounter zzrephknm40/25/2024 10:30 AM EDT Office Visit [facility] FB ORTHOPAEDICS [address] [place] [address] Jose Hernández, YISEL [address] [place], [place] [address] NOMS FB ORTHOPAEDICSStart: 08-27-2023 End: 35-42-3084wiakpdfqer73/01/2024 9:30 AM EST Treatment NOM[facility] FB PT [address] [place] [address] Nagi Plata, PT [address] [place] [address] NOMS FB PTStart: 08-23-2023 End: 50-74-6179vmhuruvvlb37/26/2024 9:30 AM EST Treatment NOM[facility] FB PT [address] [place] [address] Jeanna Mendiola, GOLF CADDY [address] [place] [address] NOMS FB PTStart: 08-20-2023 End: 67-46-0358alvqnyozav47/23/2024 9:30 AM EST Treatment NOM[facility] FB PT [address] [place] [address] Jeanna Mendiola, GOLF CADDY [address] [place] [address] NOMS FB PTStart: 08-16-2023 End: 64-14-2834ctjpeejgws03/19/2024 9:30 AM EST Treatment NOMS FB PT [address] [place] [address] Jeanna Mendiola, GOLF CADDY [address] [place] [address] NOMS FB PTStart: 08-13-2023 End: 77-62-1424xhoxrwshhq61/16/2024 9:30 AM EST Treatment NOMS FB PT [address] [place] [address] Nagi Plata, PT [address] [place] [address] NOMS FB PTStart: 08-09-2023 End: 82-70-5100Synolsy encounter upwzqftug85/12/2024 1:00 PM EST Office Visit [facility] FB ORTHOPAEDICS [address] [place] [address] Jose Hernández, PLAYER MANAGER [address] [place] [address] NOMS FB ORTHOPAEDICSStart: 08-09-2023 End: 54-96-5403vdaqiqfexrGFLY FB PTComment on above:ArrivedStart: 08-06-2023 End: 48-95-0115chtpxcfrwm63/09/2024 9:30 AM EST Treatment NOM[facility] FB PT [address] [place] [address] Jeanna Mendiola PTA [address] [place] [address] NOMS FB PTStart: 08-02-2023 End: 97-96-0812wxmcrzefxbDMKE FB PTComment on above:ArrivedStart: 02-26-2023 Influenza vaccinationKettering Health Daytontart: 78-21-3853OBTRRTY DIRECTIVE DISCUSSIONADVANCE DIRECTIVE DISCUSSIONCleGenesis Hospitaltart: 06-28-2022 DEPRESSION ASSESSMENTDEPRESSION ASSESSMENTKettering Health Daytontart: 2019 Abdominal aortic aneurysm screeningAbdominal Aortic Aneurysm (AAA) Screen [facility]: 47-94-5682Vipb Risk ScreeningFall Risk Screening [facility]: 92-22-6483MAUOBNYJCUVE: 65+ (1 - PCV)PNEUMOCOCCAL: 65+ (1 - PCV)[facility]: 15-62-5323Qyurqrkahjuicm of varicella zoster vaccineZoster (Shingles) Vaccine (2 of 3)[facility]: 59-07-7849Ajuymnge Vaccine (2 of 3)Shingrix Vaccine (2 of 3)[facility] Start: 07-07-5038PKS Vaccine (1 - 1-dose 60+ series)RSV Vaccine (1 - 1-dose 60+ series)[facility]: 84-84-2287STZHEQBP VACCINE (1 of 2)SHINGRIX VACCINE (1 of 2)[facility]: 40-80-2754YTLBEAGWL (FIT-DNA)COLOGUARD (FIT-DNA)[facility]: 92-09-5336WqmnvnlqvifOZAKHAMAAHZCrpumbyvh Clinic Start: 52-56-1201YCXORZHOHL CANCER SCREENINGCOLORECTAL CANCER SCREENINGKettering Health Daytontart: 62-58-0524XL COLONOGRAPHYCT COLONOGRAPHYKettering Health Daytontart: 48-46-3010BLGYLTVT SCREENDIABETES SCREENKettering Health Daytontart: 1999 Diabetes ScreeningDiabetes ScreeningKettering Health Daytontart: 72-32-9511YDWXD OCCULT BLOODFECAL OCCULT BLOODKettering Health Daytontart: 26-78-8441OGTDJLRUIGWPF SIGMOIDOSCOPYKettering Health Daytontart: 29-05-7697Jideo 1996 panel - Serum or Plasma Lipid ScreeningKettering Health Daytontart: 04-62-4426QZMJO SCREENLIPID SCREEN [facility]art: 42-21-0868Ebbdc microalbumin profileSelect [facility] Specialty [facility] Start: 38-81-6551Mqqqk BMI Follow Up PlanAdult BMI Follow Up PlanFormerly [facility], [facility]tart: 07-26-9610XHJTNALGM C SCREENINGHEPATITIS C SCREENING [facility]: 27-36-2382Gumtgqqjlq ScreeningDepression Screening [facility]: 19-21-0412FGANP-19 VACCINE (#1)COVID-19 VACCINE (#1)[facility]art: 31-59-6914Vnmfcpshm Aortic Aneurysm Screening Abdominal Aortic Aneurysm ScreeningKettering Health Daytontart: 1954Medicare Annual Wellness VisitMedicare Annual Wellness VisitFormerly [facility], [facility] Hospitaltart: 35-09-9971Yrlbamisi for malignant neoplasm of colonNONE Healthcare End: 64-09-8090MR HIP BILATERAL 5V PEL/AP/LAT EACH HIPXR HIP BILATERAL 5V PEL/AP/LAT EACH HIP Radiology Routine Bilateral hip joint arthritis 1 Occurrence s starting 04/13/2023 until 05/12/2024[facility] Work Phone: Comment on above:1 Occurrences starting 04/13/2023 until 05/12/2024[facility] Immunizations Immunization DateImmunizationNotesCare JbqkhbrzQvruufbs17-49-0839zeeivdgix virus vaccine, unspecified formulationMac SANTIAGO [facility]12-18-2024Influenza, High-dose Seasonal, Quadrivalent, Preservative Free Javad Donato MD Work Phone: [facility] CareYryrwfkskk46-78-7430XSR vaccine preF3, recombinantPatrick SANTIAGO [facility]11-21-2023RSV, recombinant, protein subunit RSVpreF, adjuvant reconstitu, 120mcg/0.5mL, PF (Arexvy)Nagi Narendra PT Work Phone: [facility] Work Phone: [phone] toxoid, reduced diphtheria toxoid, and acellular pertussis vaccine, adsorbedKyle Narendra PT Work Phone: [facility] CareUmqroegywo25-17-2617Lqjtjoktn, High-dose Seasonal, Quadrivalent, Preservative FreeKyle Narendra PT Work Phone: [facility] CareVrovbfoncp90-94-1989xgjtmtjhu virus vaccine, unspecified formulationKyle Narendra PT Work Phone: [facility]10-07-2022influenza, high dose seasonal, preservative-freeKyle Narendra PT Work Phone: [facility] Health CareAvopjjwycu06-57-2861Eglzlkfch, High-dose Seasonal, Quadrivalent, Preservative FreeKyle Narendra PT Work Phone: [facility] CareTtrlykklod59-38-4591xxufthvuv virus vaccine, unspecified formulationLaila Lewis PA-C Work Phone: [facility]11-24-2020influenza virus vaccine, unspecified formulationPatrick SANTIAGO [facility]11-24-2020influenza, injectable, quadrivalent, contains preservativeKyle Narendra PT Work Phone: [facility] CareTooiarruyx01-45-2739aqvafnnqmhvw conjugate vaccine, 13 valentKyle Narendra PT Work Phone: [facility] CareHkfolsoihl04-98-5438dfeacazba virus vaccine, unspecified formulationN[employer] [facility] [phone]ngamckye virus vaccine, unspecified formulationPaSaltlick Labs [facility]11-06-2019influenza, injectable, madin sancho canine kidney, preservative freeKyle Narendra PT Work Phone: [facility] CareXclqdbbdmn04-50-2317demincfaeyet polysaccharide vaccine, 23 valentKyle Narendra PT Work Phone: [facility] CareYhefpkpzsc68-19-0615fuypcgndb virus vaccine, unspecified formulationPaSaltlick Labs [facility]11-05-2018seasonal influenza, intradermal, preservative freeKyle Narendra PT Work Phone: [facility] CareGdgbypjoto18-48-3523fhcixumgu virus vaccine, unspecified formulationNano Defense Solutions [facility]12-11-2017influenza, injectable, quadrivalent, contains preservativeKyle Narendra PT Work Phone: [facility] CareCntnhrotwx72-86-3879fwnoyq vaccine, liveKyle Narendra PT Work Phone: [place] [address]Ursifjduzd49-47-2676dlqvci vaccine, unspecified formulation[address] Li StreetNEGATED: Highlighted row has not occurred!36-56-8772ZJEZ-CoV-2 (COVID-19) Ad26 vaccine, recombinantPaQuest Onlinek [place] [facility] Payers DatePayer CategoryPayerPolicy [id number]-[id number] Health [id number] 1.2.840.373451.1.13.159.2.7.3.205688.315 2019Medicare [id number]01486.315 [id number] 1960 [id number] 2.840.1.581604.3.5[id number] 2.0.1.573221.3.57[id number] 2.840.1.824836.3.579.2.66013-86-0595Dzfjrjp0714697 2.840.1.670427.3.579.2.74771-62-7275Qlmsqmh1386742 2.840.1.614473.3.579.2.62517-20-8175Djcwuck5775939 2.16.840.1.170153.3.579.2.64379-20-8465Ctbjitf8534451 2.16840.1.939449.3.579.2.96457-90-4428Fteoyxe6916252 2.16840.1.345805.3.579.2.95820-46-0244Kftohnz8649962 2.16840.1.034360.3.579.2.81805-20-4348Drvyvii3670153 2.16840.1.447611.3.579.2.41989-83-1503Uotwzxg5474898 2.16840.1.007507.3.579.2.68400-11-9005Kijihkk8719779 2.840.1.323675.3.579.2.83457-48-4830Mislydk7415312 2.840.1.550655.3.579.2.95389-44-5188Tiaxydm0630002 2.0.1.407203.3.579.2.76792-07-9775Zbprkqb2664335 2..1.114569.3.579.2.76752-39-1761Ozyegpc74999464 2.0.1.725454.3.579.2.141812-77-0421Fiprmxq48673665 2..1.620152.3.579.2.938493-82-3538Thvfzsa87607770 2..1.885256.3.579.2.226322-57-6223Mvksmte64727192 2..1.665340.3.579.2.792884-44-6672Qfiwbuz75929668 2.0.1.467239.3.579.2.876203-47-9878Txlgybg9702674 2.0.1.552011.3.579.2.768152-81-5770Tqxpwwu9425129 2.0.1.278443.3.579.2.778804-12-2776Ecmeoxg8270665 2.0.1.549061.3.579.2.463775-08-9938Drgceor0273873 2.16840.1.278408.3.579.2.041763-99-6486Cxusbil5126602 2.16840.1.169884.3.579.2.777067-62-6789Oorpamc21182012 2.16840.1.553232.3.579.2.152096-18-1127Efvongd2576825 2.0.1.949940.3.579.2.918103-71-6320Nsungnx2155525 2.0.1.802957.3.579.2.761893-37-3048Rjpocmu7710599 2.0.1.614341.3.579.2.813526-49-0733Qjllbdc8815104 2.0.1.897404.3.579.2.234804-80-2699Yhovicv4562130 2.0.1.744920.3.579.2.021227-25-0317Iclpmtl5122374 2.0.1.943144.3.579.2.445687-65-0585Ztgchxi5896682 2..1.384326.3.579.2.597951-37-6816Gviikhe1328450 2..1.821344.3.579.2.658674-19-0982Dhoiklp8826903 2.0.1.057978.3.579.2.788388-30-5064Shghqlx0010288 2.840.1.400511.3.579.2.526303-63-8020Jcplyvq2575460 2.840.1.121014.3.579.2.913661-27-0702Vwhmufe6080546 2.16840.1.247341.3.579.2.381593-91-0190Dlvyxom6398604 2.0.1.316412.3.579.2.593458-57-0034Qleyfzj8586544 2.0.1.233274.3.579.2.075620-52-5427Nfrmusc8283936 2.0.1.945039.3.579.2.452049-35-1738Cfwvagj7400430 2.0.1.649691.3.579.2.102032-63-3641Xjbiayg9154003 2..1.102713.3.579.2.776156-08-2888Ocrmxhv9234707 2..1.979987.3.579.2.059478-85-4923Pqdvmhl4030429 2..1.232739.3.579.2.519504-20-5351Vhxgfqa4508458 2..1.991820.3.579.2.233723-37-2924Wxnxqnc0323244 2..1.846957.3.579.2.846165-08-8953Mkljdfr5841644 2..1.827342.3.579.2.005078-84-3695Gtmepvn4396537 2.0.1.125516.3.579.2.398763-20-5452Xtmzdhp3490094 2.840.1.323192.3.579.2.156129-36-5952Xpyrmmr4382377 2.0.1.166699.3.579.2.364237-98-0772Karqlnn6555139 2.16.840.1.862353.3.579.2.925442-50-2247Rhtgzfp5109929 2.16.840.1.567048.3.579.2.928195-06-4573Jdpxfce2219050 2.16.840.1.603836.3.579.2.308875-85-7985Knkxhzr6745208 2.16.840.1.587460.3.579.2.808279-22-4666Gsdgbco0409044 2.16.840.1.498228.3.579.2.860461-58-5045Jkqwxqs57735003 2.16.840.1.103064.3.579.2.76413-01-3367Wlzapoe79183795 2.16.840.1.734248.3.579.2.74527-80-0729Zvlreca98320410 2.16.840.1.500642.3.579.2.44146-94-4721Ngsoese260014614 2.16.840.1.188284.3.579.2.29598-21-7282Awflkws222678198 2.16.840.1.707269.3.579.2.04115-32-9258Pchktxw362161676 2..840.1.134631.3.579.2.16553-06-2824Eejthqs063223468 2.16.840.1.6[id number] 2.840.1.409102.3.579.2.531 Social History DateTypeDetailFacilityStart: 05-05-2021 End: 60-33-7632Wh-smoker (finding)[facility] start: 04-15-2023 End: 16-73-4814SpvzEujsmcmtm [facility] start: 44-88-7575Znx Assigned [facility] OhioTobacco smoking status NHISTobacco smoking consumption unknownKettering Health Daytontart: 52-31-4356Vdkcze identityIdentifies as male gender (finding)[facility]: 52-54-9227Vgiepg orientationHeterosexual (finding)[facility]: 06-28-1968 End: 82-71-0819Ytfrlyx of tobacco useCurrent smokerSelect [facility] Work Phone: Start: 06-28-1968 End: 79-45-1753Atimaqj of tobacco useCigarette SmokerSelect Medical [facility]ty [facility] [place] Work Phone: Start: 04-15-2023 End: 35-61-9276Wkearzy of Social functionSelect Medical Specialty Hospital - AkronAdult Depression Screening Yrewjjwfkn7Vbmbkkuot ClinicStart: 01-11-2023 End: 36-28-4057Ccokilt use and exposureSmokeless tobacco non-userNOMS Healthcare Start: 07-12-2023 End: 53-46-3756Donibkt intakeCurrent drinker of alcohol (finding)[facility] Within the last year, have you been afraid of your partner or ex-partner?NoNOMS HealthcareDo you belong to any clubs or organizations such as mandaeism groups, unions, fraternal or athletic groups, or school groups?YesNOMS HealthcareAre you now , , , , never or living with a partner?Living with partnerNOMS HealthcareHow often to you have a drink containing alcohol?2-3 time sa weekNOMS HealthcareHow many standard drinks containing alcohol do you have on a typical day?1 or 2NOMS HealthcareHow often do you have 6 or more drinks on 1 occasion?NeverNOMS HealthcareHow hard is it for you to pay for the very basics like food, housing, medical care, and heating Somewhat hardNOMS HealthcareDo you feel stress - tense, restless, nervous, or anxious, or unable to sleep at night because yourmind is troubled all the time - these days [OSQ]To some extentNOMS Healthcare(I/We) worried whether (my/our) food would run out before (I/we) got money to buy more.Never trueNOMS Healthcare Start: 86-57-9936Hnxxebn Commentno wayNOMS HealthcareStart: 74-31-1536Qmziudb CommentSocial drinker with occasional drink at home.[facility] HealthcareStart: 05-42-8031Jdevcle Wgzejov9284 quit smokingProMediva Health SystemStart: 83-27-6069Fetcidt CommentoccasionalProDecatur Morgan Hospital Health SystemStart: 04-04-2024 Alcohol CommentrarePHolzer Medical Center – Jackson SystemSexual OrientationExec[facility] sexMale (finding)[facility] Medical Equipment Procedure CodeEquipment CodeEquipment Original TextEquipment IdentifierDatesStem Fem 129d 4 06/10 45.5mm Fitmore Protasul-64 Hip Rgh - [id number] Start: 60-73-0144Zwahum [employer] Femoral Head [id number]: 09-35-9316Zlhqo Bn [address]mm [address] Actb Seven Trlg Strl Rpl [id number] - [id number]_impStart: 68-18-2717Qnlzt Actb 56mm Hip 4 Hl Clr Cd [place] G7 F Hmsphr - Sna - [id number]: 85-04-7887Yprux Actb 36mm F Vivacit-E Lum G7 Hip Strl Lf - [id number]: 80-58-4350Bojby Bn 30mm [address] Actb Seven Trlg Strl Rpl [id number] - [id number]: 05-41-7028Mcgcq Bn 30mm [address] St Actb Seven Trlg Strl Rpl [id number] - [id number]_oxsYhlty: 07-07-2023 Functional Status NfsaZainxizqucDwfbggNdpgftvy64-43-3742Pmprurr Health Questionnaire 2 item (PHQ- 2) [Reported][facility] CareBhxmdlfrsw36-00-6246Sfejasn Health Questionnaire 2 item (PHQ- 2) [Reported][facility] Health CareYflcvzxush47-08-5075Bebakdviis StatusN/AExecutive [facility] of Genesis [facility]22Functional StatusN/[facility]22[facility]22N/[facility] Clinical Notes 02-16-2022 to 02-05-2025 Note Date & [id number] Hospital Discharge instructions Patient Education 02/05/2025 11:51:43 [...] your health care provider. General instructions Take rjbr-ojj-proxujs and prescription medicines only as told by your health care provider. If you were prescribed an antibiotic medicine, take it as told by your health care provider. Do notstop taking the antibiotic even if you start [...] provider. Document Revised: 03/03/2021 Document Reviewed: 03/03/2021 britebill Patient Education 2023 [email or web address]. Follow Up Care 02/07/2024 11:34:29 With:PAMELA BAER, Mac Stephenson, URL Address: [address] [place] [phone] When: Unknown [facility] 08-11-2025 NotePatient Education Obstetrics and Gynecology Overactive Bladder, Adult [...] health care provider. General instructions ??? Take oxkr-hgn-rrtldgf and prescription medicines only as told by [...] you drink, and whe (more content not included)...[facility]06-04-2025 History of Present illness Narrative* MARY Mcarthur - 11/29/2024 11:30 AM EDT [...] mg by mouth in the morning. HYDROcodone-acetaminophen ([place]) 5-325 MG tablet Take 1 tablet by [...] wrist GERD (gastroesophageal reflux disease) HTN (hypertension) ([facility]) Lumbosacral disc disease Osteoarthritis Past [...] follow up with Dr. Omari Tomas, his Wood Model Builder, for further evaluation ofthe skin between the [...] index (BMI) of38.0 to 38.9 in adult ([facility]) Encouraged portion control, decrease simple [...] for Appointment As Scheduled. documented in this encounterSSM Health [id number] Telephone encounter Note* Telephone Encounter - Priscilla Cameron - 11/28/2024 1:37 PM EDT Appt scheduled [facility] [id number] Miscellaneous Notes* Telephone Encounter - Priscilla Cameron - 11/28/2024 [...] need an appointment or not [place] documented in this encounterSSM Health [id number] Telephone encounter Note* Telephone Encounter - DESIRAE HEIN - 11/27/2024 9:24 AM EDT Patient will need an appointment [facility] [id number] Telephone encounter Note* Telephone Encounter - Priscilla Cameron - 11/27/2024 8:18 AM EDT Prednisone 20 mg for a skin irritation. He said that he usually gets this medication. Clotrimazole - betamethasone cream for althetes foot He said he hasn't had these meds in a while and didn't know if he would need an appointment or not [place] [facility] [id number] History of Present illness Narrative* Jose Hernández NP - 10/30/2024 8:00 AM EDT Images from the original note were not included. HISTORY OF PRESENT ILLNESS: EST PT Lawsonwendy Vela is an 69 y.o. @ male. (EST PT) S/P (L) NASH 05/03/24 (~6MO)-DOING WELL XRAY LT HIP TODAY EPIC 10/30/24 XRAYS 06/12/24 IN EPIC NOTES SOME DISCOMFORT/MUSCLE PAIN WITH ACTIVITY-GOOD ROM- +NORCO (TAKES FOR OTHER ACHES AND PAINS);DR DONATO- PT CONTINUES TO HAVE BACK PAIN; HAS APPT WITH PAIN MANAGEMENT 11/06/24 AND WILL BE GETTINGINJ ALLERGIES: Allergies Allergen Reactions Carvedilol Other Reaction(s): dizziness HOME MEDICATIONS: Current Outpatient Medications Medication Instructions ascorbic acid (Vitamin C) 500 MG chewable tablet Every 24 hours B Complex Vitamins (vitamin B complex) tablet as directed Orally cholecalciferol (Vitamin D3) 25 MCG (1000 UT) tablet Every 24 hours cyanocobalamin (Vitamin B-12) 100 MCG tablet as directed Orally finasteride (PROSCAR) 5 mg, Daily HYDROcodone-acetaminophen ([place]) 5-325 MG tablet 1 tablet, Oral, Every [...] Unremarkable left total hip arthroplasty. Jose Hernández LOAN COORDINATOR-HIDE INSPECTOR AND SORTER Procedures Orders Placed This Encounter Procedures XR [...] right but is working on this. I recommendhe use tylenol 1000mg every 8 hours PRN [...] for requiring urgent evaluation. documented in this encounterSSM Health [id number] History of Present illness Narrative* Javad Donato MD - 10/25/2024 10:45 AM EDT Images from the original note [...] day at the same time. [DISCONTINUED] HYDROcodone-acetaminophen ([place]) 5-325 MG tablet Take 1 tablet by [...] to the equimolar-standardized total PSA (Dee Dee [place]). Comparison of serial PSA results should be [...] LDL-C. Humberto MOORE et al. LULU. 2013;310(19): 5335-1799 (http://education.[facility].[employer]/faq/JDZ246) CHOL/HDLC RATIO 06/14/2024 5.4 (H) <5.0 (calc) [...] diagnosis of diabetes in children. According to [place] Diabetes Association (ADA) guidelines, hemoglobin A1c <7.0% represents optimal control in non- diabetic patients. Different metrics may apply to specific patient populations. Standards of Medical Care in Diabetes(ADA). Assessment/Plan Diagnoses and all orders for this visit: Herniated lumbar disc without myelopathy - HYDROcodone-acetaminophen ([place]) 5-325 MG tablet; Take 1 tablet by [...] index (BMI) of 37.0 to 37.9 in adult,unspecified obesity type (CMS/HCC) - POCT Glycated hemoglobin, total - He has lost some weight, needs to lose more. Morbid (severe) obesity due to excess calories (CMS/HCC) Essential (primary) hypertension (CMS/HCC) - This is a chronic medical condition that is stable since last assessment. No changes in treatmentare suggested at this time. Body mass index (BMI) 38.0-38.9, adult Follow up in about 5 months (around 03/27/2025) for Routine F/U. documented in this encounterSSM Health [id number] Telephone encounter Note* Telephone Encounter - DESIRAE HEIN - 09/25/2024 2:39 PM EDT LM for pt to CB [facility] [id number] Miscellaneous Notes* Telephone Encounter - DESIRAE HEIN - 09/25/2024 2:39 PM EDT LM for pt to CB * Telephone Encounter - Lotus Santana MA - 09/22/2024 8:33 AM EDT Lm to cb * Telephone Encounter - Lotus Santana MA - 09/21/2024 10:50 AM EDT Lm on vm to call us, need to know why he is wanting or needing this * Telephone Encounter - Priscilla Cameron - 09/21/2024 9:48 AM EDT Patient is wondering if he needs/or is due for an MMR vaccine. documented in this encounterSSM Health CareTydvnjfqse85-33-2934 Telephone encounter Note* Telephone Encounter - Lotus Santana MA - 09/22/2024 8:33 AM EDT Lm to cb [facility] [id number] Telephone encounter Note* Telephone Encounter - Lotus Santana MA - 09/21/2024 10:50 AM EDT Lm on vm to call us, need to know why he is wanting or needing this [facility] [id number] Telephone encounter Note* Telephone Encounter - Priscilla Cameron - 09/21/2024 9:48 AM EDT Patient is wondering if he needs/or is due for an MMR vaccine. [facility] [id number] History of Present illness Narrative* Jose Hernández NP - 07/31/2024 8:00 AM EST Images from the original note were not [...] ROM and pain. He is cleared to startworking on aquatic therapy and go in a [...] for requiring urgent evaluation. documented in this encounterSSM Health [id number] History of Present illness Narrative* MARY Mcarthur - 07/27/2024 10:30 AM EST Images from the original note were not included. Subjective Patient ID: Lawson Vela is a 69 y.o. male who presents for URI. Lawson is present today for evaluation of URI. Admits sinus pressure/pain, headache, post nasal drainage, nasal congesting, sneezing, runny nose, sore throat (worse in the morning) cough dry mostly butin the morning when he gets up he [...] mg by mouth in the morning. HYDROcodone-acetaminophen ([place]) 5-325 MG tablet Take 1 tablet by [...] wrist GERD (gastroesophageal reflux disease) HTN (hypertension) ([facility]) Lumbosacral disc disease Osteoarthritis Past [...] risks of opioid therapy including potential for ACCOUNTS RECEIVABLE ASSISTANT s/e, GI s/e, respiratory s/e, dermatologic s/e, [...] for Medication Follow Up. documented in this encounterSSM Health CareSjdqaavtul90-24-2709 History of Present illness Narrative* Jose Hernández NP - 07/03/2024 10:30 AM EST Images from the original note were not included. HISTORY OF PRESENT ILLNESS: POST OP PT Lawson Vela is an 69 y.o. @ male. (EST PT) S/P (L) NASH 05/03/24 (8WKS 5DAYS) XRAYS 06/12/24 IN [facility] DOING WELL- CONTINUES WITH PT, WANTS TO START AQUATIC THERAPY AT [facility]. USES CANE PRN. GOOD ROM/STRENGTH- +HYDROCODONE [...] for requiring urgent evaluation. documented in this encounterSSM Health CareDbdibpztrw04-86-6375 History of Present illness Narrative* Nagi Plata, PT - 06/20/2024 7:00 AM EST Images from the original note were not [...] Current deficits: pain, decreased ROM/flexibility, weakness Pain: 110 amb into session just sore and stiff [...] 25 min sup 30 total demo and verbalcues for correct technique especially hip abd limiting hip flexor compensation. Gait Training: prn for improved quality Modalities: CP prn Assessment/Plan L hip pain, weakness, causing increased difficulty with ADLs/self care, impaired gait s/p L NASH 05/03/24 Patient Goals Short Term Goal #1: pt will be ind with HEP for maintenance/progression prn at [place] Short Term Goal #2: pt will demo [...] Please sign below. Date: documented in this encounterSSM Health [id number] History of Present illness Narrative* Javad Donato MD - 06/14/2024 9:30 AM EST Images from the original note were not included. HPI Med Refill Additional comments: Hydrocodone--[facility] [place] -for back pain pt is going to do some PT but states if that does not help with his back he will want to address it in the future feet are cold Additional comments: Pt states he has had ongoing issues feeling like his feet/toes are really coldto touch, he feels like there is the [...] mg by mouth in the morning. HYDROcodone-acetaminophen ([place]) 5-325 MG tablet Take 1 tablet by mouth every 6 (six) hours if needed for severe pain 20 tablet 0 irbesartan-hydroCHLOROthiazide (Aval[place]) 150-12.5 MG tablet Take 1 tablet by mouth Daily 100 tablet0 magnesium 30 MG tablet Take 30 mg [...] and manage most of your health problems?: (Patient-Rptd)(P) Very confident Can you mange your money, [...] Do you have a medical power of fire safety director?: (Patient-Rptd) (P) No Objective : BP 126/70 [...] a living will and durable power of fire safety director for healthcare. We discussed telling keith people [...] index (BMI) of 37.0 to 37.9 in adult,unspecified obesity type (CMS/HCC) - Lipid panel; Future - Comprehensive metabolic panel; Future - CBC; Future - Hemoglobin A1c; Future Screening for prostate cancer - PSA; Future Flu vaccine need - Influenza, high-dose seasonal, quadrivalent, PF (RPQ911) (Fluzone High Dose [place] 0.7mL dose) Herniated lumbar disc without myelopathy - HYDROcodone-acetaminophen ([place]) 5-325 MG tablet; Take 1 tablet by mouth every 6 (six) hours if needed for severe pain Claudication (CMS/HCC) - Vascular US lower extremity arterial duplex bilateral; Future Orders Placed This Encounter Procedures Influenza, high-dose seasonal, quadrivalent, PF (GZG983) (Fluzone High Dose Quad [place] 0.7mL dose) [...] on June 14, 2024 documented in this encounterSSM Health [id number] History of Present illness Narrative* Jose Hernández NP - 06/12/2024 10:30 AM EST Images from the original note were not [...] Unremarkable left total hip arthroplasty. Jose Hernández APRN-HIDE INSPECTOR AND SORTER XR hip left 2 or 3 views [...] Unremarkable left total hip arthroplasty. Jose Hernández APRN-HIDE INSPECTOR AND SORTER Procedures Orders Placed This Encounter Procedures XR [...] for requiring urgent evaluation. documented in this encounterSSM Health CareAfglshyqto23-24-1064 History of Present illness Narrative* Charissa Blair, - 05/16/2024 11:30 AM EST Images from the original note were not [...] muscle relaxer for his back. He is nottaking ASA. Pt reports that when he woke [...] mg by mouth in the morning. HYDROcodone-acetaminophen ([place]) 5-325 MG tablet Take 1 tablet by mouth every 6 (six) hours if needed for severe pain 20 tablet 0 irbesartan-hydroCHLOROthiazide (Avalide) 150-12.5 MG tablet Take 1 tablet by mouth Daily 100 tablet0 magnesium 30 MG tablet Take 30 mg [...] wrist GERD (gastroesophageal reflux disease) HTN (hypertension) ([facility]) Lumbosacral disc disease Osteoarthritis ALLERGIES: [...] water therapy at that point, will discuss atthat time. No hot tub for 2-3 months. [...] if he desires a referral to another laboratory technical specialist we would be happy to make referral, he states he would like to continue his care here. Boni Blair D.O. documented in this encounterSSM Health [id number] History of Present illness Narrative* Charissa Blair DO - 05/09/2024 10:30 AM EST Images from the original note were not [...] 1 tablet (325 mg) by mouth in themorning. Take with meals. Do not crush, chew, or split.. 30 tablet 0 finasteride (Proscar) 5 MG tablet Take 5 mg by mouth in the morning. HYDROcodone-acetaminophen ([place]) 5-325 MG tablet Take 1 tablet by mouth every 6 (six) hours if needed for severe pain 20 tablet 0 irbesartan-hydroCHLOROthiazide (Avalide) 150-12.5 MG tablet Take 1 tablet by mouth Daily 100 tablet0 magnesium 30 MG tablet Take 30 mg [...] wrist GERD (gastroesophageal reflux disease) HTN (hypertension) ([facility]) Lumbosacral disc disease Osteoarthritis ALLERGIES: [...] one week for wound check. Dr. Blair obtainedhistory and examined the patient, I am acting as scribe for Dr. Blair/demi Blair D.O. documented in this [facility]11-11-2024 Telephone encounter Note* Telephone Encounter - Jose Hernández NP - 05/08/2024 2:16 PM EST Post op pain rx refill. PDMP reviewed [place] [id number] Miscellaneous Notes* Telephone Encounter - Jose Hernández NP - 05/08/2024 2:16 PM EST Post op pain rx refill. PDMP reviewed documented in this [facility]11-07-2024 Telephone encounter Note* Telephone Encounter - Jose Hernández NP - 05/04/2024 10:01 AM EST He already discharged and PT is meeting with him today. [place] [id number] Miscellaneous Notes* Telephone Encounter - Jose Hernández NP - 05/04/2024 10:01 AM EST He already discharged and PT is meeting with him today. * Telephone Encounter - Su Alexander - 05/04/2024 9:38 AM EST Maxine myrick that patient is being discharged today from his LT Hip replacement and would like us to call patient to let him know what he needs to do. Patient's phone number is [phone]. documented in this encounterSSM Health [id number] Telephone encounter Note* Telephone Encounter - Su Alexander - 05/04/2024 9:38 AM EST Maxine myrick that patient is being discharged today from his LT Hip replacement and would like us to call patient to let him know what he needs to do. Patient's phone number is [phone]. [facility] CareQhjwtdgjxu24-42-1343 Telephone encounter Note* Telephone Encounter - Jose Hernández NP - 05/02/2024 12:22 PM EST Post op pain rx. PDMP reviewed [facility] [id number] Miscellaneous Notes* Telephone Encounter - Jose Hernández NP - 05/02/2024 12:22 PM EST Post op pain rx. PDMP reviewed documented in this [facility]10-21-2024 History of Present illness Narrative* Javad Donato MD - 04/17/2024 2:00 PM EDT Images from the original note were not included. HPI surgical clearance Additional comments: Pt sched 05/03/24 for left hip replacement with Dr Blair at [facility] PAT completed Last edited by France Farah LPN on 04/17/2024 1:48 PM. Subjective Patient ID: Lawson Vela is a 69 y.o. male who presents for surgical clearance (Pt sched 05/03/24 for left hip replacement with Dr Blair at [facility]/PAT completed). Pt has had left hip pain [...] mg by mouth in the morning. HYDROcodone-acetaminophen ([place]) 5-325 MG tablet Take 1 tablet by mouth every 6 (six) hours if needed for severe pain 20 tablet 0 irbesartan-hydroCHLOROthiazide (Avalide) 150-12.5 MG tablet Take 1 tablet by mouth Daily 100 tablet0 magnesium 30 MG tablet Take 30 mg [...] with food 4 tablet 3 [DISCONTINUED] HYDROcodone-acetaminophen ([place]) 5-325 MG tablet No current facility-administered medications [...] wrist GERD (gastroesophageal reflux disease) HTN (hypertension) ([facility]) Lumbosacral disc disease Osteoarthritis Past [...] has no chest pain or dyspnea. All availablePAT was reviewed. There are no medical contraindications for surgery noted at this time, and the patient is considered low risk for the planned upcoming procedure. The patient is cleared for surgery without additional testing. Benign essential hypertension (CMS/HCC) Class 2 severe obesity with serious comorbidity and body mass index (BMI) of 37.0 to 37.9 in adult,unspecified obesity type (CMS/HCC) Follow up for As Previously Scheduled. documented in this encounterSSM Health [id number] Telephone encounter Note* Telephone Encounter - MARY Mcarthur - 04/12/2024 12:51 PM EDT OARRS reviewed, Rx sent into patient's pharmacy. [facility] [id number] Miscellaneous Notes* Telephone Encounter - MARY Mcarthur - 04/12/2024 12:51 PM EDT OARRS reviewed, Rx sent into patient's pharmacy. * Telephone Encounter - Lotus Santana MA - 04/12/2024 12:42 PM EDT Patient comment: Getting prepared for future surgery. documented in this encounterSSM Health [id number] Telephone encounter Note* Telephone Encounter - Lotus Santana MA - 04/12/2024 12:42 PM EDT Patient comment: Getting prepared for future surgery. [facility] [id number] History of Present illness Narrative* Charissa Blair DO - 04/06/2024 11:00 AM EDT HISTORY OF PRESENT ILLNESS: Lawson Vela is [...] tx: cane, norco, ice, heat, topicals, XR [facility] 11/01/23, hot tub, PREHAB/HEP Currently seeing pain management, Dr Ludwig [facility] for LBP MEDICATION: Current Outpatient Medications [...] mg by mouth in the morning. HYDROcodone-acetaminophen ([place]) 5-325 MG tablet irbesartan-hydroCHLOROthiazide (Avalide) 150-12.5 MG tablet Take 1 tablet by mouth Daily 100 tablet0 magnesium 30 MG tablet Take 30 mg [...] wrist GERD (gastroesophageal reflux disease) HTN (hypertension) ([facility]) Lumbosacral disc disease Osteoarthritis ALLERGIES: [...] IMAGING: November 01, 2023 x-rays from the [facility] office AP pelvis and lateral left hip demonstrate joint space narrowing left hip subchondral sclerosis and subchondral cyst formation consistent with arthritis. Presence of a right hip replacement in good position alignment. Impression: Advanced osteoarthritis left hip Amauri Rossy Mendez XR hip left 2 or 3 views Imaging Result: April 06, 2024 x-rays AP and lateral of the left hip demonstrate joint space collapse with subchondral sclerosis and osteophyte formation consistent with arthritis. Impression: Arthritis of the left hip Amauri Rossy Mendez. ASSESSMENT: ICD-10-CM 1. Left hip pain M25.552 [...] or he can continue care with me fornow. Postoperatively the patient would ultimately have to [...] with the patient operative options and the risks/ benefits of each and chances for success/ failure. Discussion included but was not limited to the risk of infection, blood clot,nerve injury, leg length discrepancy, instability, blood clot, failure to improve and need for additional surgery and . I answered all of the patients questions. I recommend a LEFT Total hip replacement. The patient was instructed to kaitlin the operative site with theword Yes prior to arriving at the hospital and the patient verbalized an understanding. The patientwants to proceed and informed consent is obtained. Dr. Blair obtained history and examined thepatient, I am acting as scribe for Dr. Blair/demi Blair D.O. documented in this encounterSSM Health [id number] Instructions* Patient Instructions* Trista Pelaez RN - 04/04/2024 9:00 AM EDT Preoperative Education Checklist- General Surgery date: 05/03/24 Surgery time: 745a Arrival time: 610a Please come back to the hospital between 10/28/24-05/02/24Wednesday-Wednesday 630a- 430p for a blood draw.Stop at the registration desk upon arrival. The lab will give you a green blood band, bring that back with you day of surgery. 1. Bring a photo ID and your insurance card with you the day of surgery. You will check in at the main lobby of the [facility]- registration desk is straight ahead as soon as you walk in. Tell them you are here for surgery. 2. If you have a Living Will/Durable Power of Industry Consultant for Health Care that is not [...] after you have bathed. 5. NO nail urdu/acrylic on at least one finger. If you are having a hand, wrist or foot surgery then all nail urdu and artificial/acrylic nails must be removed from [...] least 8 hours and marijuana for 24 hoursprior to arrival for your surgery. 16. If [...] please call the Preadmission Testing office at [phone], Mon.-Fri. 7 a.m.-3 p.m. Leave a voicemail [...] after surgery- do not stop unless directed ricardo your physician. You may also be given [...] is normal. Call your doctor if you noticeany of the following: -Increased redness or hardening [...] water and pat the area dry with aclean towel. -No re-using wash cloths or towels; [...] appointment with your doctor. documented in this [facility]Community [facility]10-[facility] Miscellaneous Notes* Perioperative Nursing Note - Azeb Miller RN - 04/04/2024 9:00 AM EDT Patient called and educated to watch his YOLANDA education on total hip replacement prior to his PAT appointment next week. Patient verbalized understanding. documented in this encounterCommunity [facility]10-08-2024 Nurse Note* Perioperative Nursing Note - Azeb Miller RN - 04/04/2024 9:00 AM EDT Patient called and educated to watch his YOLANDA education on total hip replacement prior to his PAT appointment next week. Patient verbalized understanding. [facility] [employer] [id number] History of Present illness Narrative* Nagi Plata PT - 03/15/2024 8:48 AM EDT No need for Prehab appt, has walker and has recently went through NASH, spoke with pt in parking lot, reviewed precautions good understanding. documented in this encounterSSM Health [id number] History of Present illness Narrative* MARY Mcarthur - 02/17/2024 10:30 AM EDT Subjective Patient ID: Lawson Vela is a 69 y.o. male who presents for URI. Lots of mucus, hoarseness , this started 3 weeks ago , pt does talk all day long , some congestion,no headaches , pt took covid test was [...] abdominal pain, chest pain, diarrhea, ear pain, headaches,nausea, plugged ear sensation, rash, sneezing, vomiting or [...] Take 1 tablet by mouth Daily 100 tablet0 magnesium 30 MG tablet Take 30 mg [...] throat, trouble swallowing (Painful) and voice change. Negativefor ear pain and sneezing. Respiratory: Positive for [...] for Appointment As Scheduled. documented in this encounterSSM Health [id number] Hospital Discharge instructions Patient Education 02/07/2024 11:16:49 Benign Prostatic Hyperplasia Benign Prostatic Hyperplasia Benign prostatic hyperplasia (BPH) is an enlarged prostate gland that is caused by the normal agingprocess. The prostate may get bigger as a man gets older. The condition is not caused by cancer. The prostate is a walnut-sized gland that is involved in the production of semen. It is located in front of the rectum and below the bladder. The bladder stores urine. The urethra carries stored urine ou t of the body. An enlarged prostate can press on the urethra. This can make it harder to pass urine. The buildup of urine in the bladder can cause infection. Back pressure and infection may progress to bladder damage and kidney (renal) failure. What are the causes? This condition is part of the normal aging process. However, not all men develop problems from thiscondition. If the prostate enlarges away from the [...] urethra. Follow these instructions at home: Take rbjv-svg-cslnimy and prescription medicines only as told by [...] provider. Document Revised: 12/31/2021 Document Reviewed: 12/31/2021 britebill Patient Education 2022 [email or web address]. Follow Up Care 08/30/2023 12:37:09 With:PAMELA BAER, Mac Stephenson, URL Address: [facility] [address], [place] [address]- When: Unknown [facility] 08-12-2024 NotePatient Education Urology Benign Prostatic Hyperplasia Benign prostatic hyperplasia (BPH) is an enlarged prostate gland that is caused by the normal agingprocess. The prostate may get bigger as a man gets older. The condition is not caused by cancer. The prostate is a walnut-sized gland that is involved in the production of semen. It is located in front of the rectum and below the bladder. The bladder stores urine. The urethra carries stored urine ou t of the body. An enlarged prostate can press on the urethra. This can make it harder to pass urine. The buildup of urine in the bladder can cause infection. Back pressure and infection may progress to bladder damage and kidney (renal) failure. What are the causes? This condition is part of the normal aging process. However, not all men develop problems from thiscondition. If the prostate enlarges away from the [...] urine that may remain in your bladder afteryou finish urinating. ? A digital rectal exam. [...] this procedure, a tool is inserted through theopening at the tip of the penis (urethra). [...] procedure uses radio frequencies to destroy and removea small amount of prostate tissue. ? Interstitial laser coagulation (ILC). This procedure uses a laser to destroy and remove a small amount of prostate tissue. ? Transurethral electrovaporization (TUVP). This procedure uses electrodes to destroy and remove a small amount of prostate tissue. ? Prostatic urethral lift. This procedure inserts an implant to push the lobes of the prostate awayfrom the urethra. Follow these instructions at home: ? Take uobh-puq-ldovzqs and prescription medicines only as told by [...] You develop side effec (more content not included)...[facility]02-12-2024 History of Present illness Narrative* Jose Hernández, YISEL - 08/09/2023 1:00 PM EST Images from the original note were not included. Chief Complaint Patient presents with Right Hip - Follow-up HISTORY OF PRESENT ILLNESS: Lawson Vela is an 68 y.o. @ male. po x 4 weeks 5 days s/p RT NASH 07/07/23. Walking well with walker. Continues PT and HEP. Denies much pain in hip, states he has already beenable to do more now than before sx. [...] the operative lower extremity with abduction stress testingnot preformed secondary to surgery healing. Dorsalis pedis and posterior tibial pulses were presentand equal bilaterally. Sensation to light touch was [...] develop for requiring urgent evaluation. Jose Hernández LOAN COORDINATOR-HIDE INSPECTOR AND SORTER documented in this encounterSSM Health CareKbvwjaychy15-23-0877 Hospital course Narrative * Charissa Blair DO - 07/07/2023 2:18 PM ESTSummary: status post hip replacement right Orthopaedic Discharge Summary Patient ID: Lawson Vela [id number] 68 y.o. 1955 Admit date: 07/07/2023 Discharge date and time: No discharge date for patient encounter. Admitting Physician: Charissa Blari DO Discharge Physician: same Admission Diagnoses: Severe [...] an antalgic gait which was affecting balance, co ordination, stability on stairs and causing pain to [...] Signed: Charissa Blair DO documented in this encounterCommunity [facility] Hospital01-10-[facility]24 Progress note* PT/OT/BRUSH LOADER AND HANDLE ATTACHER - Rachel Sebastian, PT - 07/07/2023 2:08 PM EST Physical Therapy Evaluation Discharge Recommendations PT Recommendations: Home Home Recommendations: Intermittent caregiver support for: Post Discharge Therapy Recommendations: Home Physical Therapy Net Developer With Wcf Support for-: ADL Deficits, Mobility Deficits Past Medical History: Diagnosis Date Arthritis Benign prostatic hyperplasia Fractures GERD (gastroesophageal reflux disease) Hypertension Past Surgical History: Procedure Laterality Date APPENDECTOMY RELEASE CARPAL TUNNEL Right 05/29/2020 Performed by Charissa Blair DO at [facility] 6 Clicks: Basic Mobility Turning from your [...] Treatment/Interventions: Functional transfer training, LE strengthening/ROM, Endurance training,Balance, Stair training, Bed mobility, Gait training, Functional activities, Neuromuscular reeducation PT Frequency: Other (comment) (1-2x/day) PT Duration: 5 days Patient Response to Treatment: Tolerated evaluation without adverse reaction Assessment Patient Assessment Therapy Problem List: Abnormal posture, Decreased balance, Decreased endurance, Decreased mobility,Decreased safe judgement during ADL, Decreased LE ROM, [...] Fair Standing Balance: Dynamic: Fair RLE Assessment: (-/) LLE Assessment: (09/30) 07/07/23 1351 NASH NASH [...] Principal Problem: Primary osteoarthritis of right hip [facility]01-10-2024 Miscellaneous Notes* PT/OT/BRUSH LOADER AND HANDLE ATTACHER - Rachel Sebastian, PT - 07/07/2023 2:08 PM EST Physical Therapy Evaluation Discharge Recommendations PT Recommendations: Home Home Recommendations: Intermittent caregiver support for: Post Discharge Therapy Recommendations: Home Physical Therapy Net Developer With Wcf Support for-: ADL Deficits, Mobility Deficits Past Medical History: Diagnosis Date Arthritis Benign prostatic hyperplasia Fractures GERD (gastroesophageal reflux disease) Hypertension Past Surgical History: Procedure Laterality Date APPENDECTOMY RELEASE CARPAL TUNNEL Right 05/29/2020 Performed by Charissa Blair DO at [facility] 6 Clicks: Basic Mobility Turning from your [...] Treatment/Interventions: Functional transfer training, LE strengthening/ROM, Endurance training,Balance, Stair training, Bed mobility, Gait training, Functional activities, Neuromuscular reeducation PT Frequency: Other (comment) (1-2x/day) PT Duration: 5 days Patient Response to Treatment: Tolerated evaluation without adverse reaction Assessment Patient Assessment Therapy Problem List: Abnormal posture, Decreased balance, Decreased endurance, Decreased mobility,Decreased safe judgement during ADL, Decreased LE ROM, [...] Dynamic: Fair RLE Assessment: (3-/5) LLE Assessment: (4/5) 07/07/23 1351 NSAH NASH exercises performed? Yes Ankle pumps 10 [...] Principal Problem: Primary osteoarthritis of right hip * Op Note - Charissa Blair DO - 07/07/2023 7:45 AM ESTSummary: Right hip replacement Preoperative diagnosis: Osteoarthritis/degenerative joint [...] placed Charnley retractor. Next the bursa was excisedand then the anterior 1/3 of the gluteus [...] to close the skin. Tinco Miller and Steri- Strips were applied. Sterile dressings were applied and she was carefully log rolled off the table and then transported to the recovery room in stable condition documented in this encounterCommunity [facility] Hospital01-10-[facility]24 Hospital Discharge instructions* Discharge Instructions* Janee Viera RN - 07/07/2023 2:06 PM [...] swallowing) Questions, Problems, Concerns Preop phone number [phone] ext [phone] * Attachments The following attachments cannot be sent through Care Everywhere. * Total Hip Replacement Discharge Instructions (Lithuanian) documented in this encounterCommunity Memorial Hospital01-10-2024 Attending History and physical note* Charissa Blair DO - 07/07/2023 7:48 AM EST HISTORY AND PHYSICAL INTERVAL NOTE: Lawson Vela 1955 [id number] H&P reviewed. The patient was examined and there are no changes to the H&P. Charissa Blair DO Source Note - Charissa Blair DO - 07/06/2023 7:28 AM EST [facility] History and physical note* Charissa Blair DO - 07/07/2023 7:48 AM EST HISTORY AND PHYSICAL INTERVAL NOTE: Lawson Vela 1955 [id number] H&P reviewed. The patient was examined and there are no changes to the H&P. Charissa Blair DO Source Note - Charissa Blair DO - 07/06/2023 7:28 AM EST documented in this encounterCommunity Memorial Hospital01-10-2024 Procedure note* Op Note - Charissa Blair DO - 07/07/2023 7:45 AM ESTSummary: Right hip replacement Preoperative diagnosis: Osteoarthritis/degenerative joint [...] placed Charnley retractor. Next the bursa was excisedand then the anterior 1/3 of the gluteus [...] to close the skin. Tinco Miller and Steri- Strips were applied. Sterile dressings were applied and she was carefully log rolled off the table and then transported to the recovery room in stable condition [facility]-2023 NoteHNO ID: [id number] Author: Laila Lewis PA-C Service: ? Author Type: Physician Transmission Superintendent Type: Progress Notes Filed: 04/15/2023 1:53 PM [...] walks or stands for long Intervention/Comfort measure: Medication;Reposition;Relaxation;Cold;Exercise;Heat;Massage;Pillow support;Positioning -- Comments: Pain management; steroid injections has been pain manegment but is not seeing any changes in the pain AMBULATORY STATUS: Independent Community Distances ANTIPLATELET OR ANTICOAGULATION STATUS: No PREVIOUS CONSERVATIVE TREATMENTS: See below Aquatic Therapy: 3 months ago which helped, will start it again. 3 days a week. 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 Prior to ablation symptoms on left have [...] Several days 2 More (more content not included)...[id number] Instructions* Patient Instructions* Laila Lewis PA-C - 04/13/2023 11:08 AM [...] spine, which could be attributing to pt's mechanicalback pain. CT SPECT to assess profuse arthritic and degenerative changes, and etiology of pain. If there is uptake on imaging, may recommend diagnostic injection. The brighter the orange color the greater the degree of inflammation which is considered uptake). Laila Lewis PA-C [phone] documented in this encounterSelect [facility] History of Present illness Narrative* Laila Lewis PA-C - 04/13/2023 11:00 AM EDT Images from the original note [...] Industrial accident. No surgery, had injections and injectionswhich helped. On and off since then. 14 months ago, he was leaning forward and felt sever back painthat was not resolved with normal techniques Patient [...] walks or stands for long Intervention/Comfort measure: Medication;Reposition;Relaxation;Cold;Exercise;Heat;Massage;Pillow sup port;Positioning -- Comments: Pain management; steroid injections has been pain manegment but is not seeing any changesin the pain AMBULATORY STATUS: Independent Community Distances ANTIPLATELET OR ANTICOAGULATION STATUS: No PREVIOUS CONSERVATIVE TREATMENTS: See below Aquatic Therapy: 3 months ago which helped, will start it again. 3 days a week. 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 Prior to ablation symptoms on left have [...] the patient MRI Lumbar: Narrative PERFORMED AT [facility] LOCATION:[facility] CLINICAL HISTORY: Low back pain extending into the right lower extremity. COMPARISON: 05/01/2022 TECHNIQUE: Multiplanar MR imaging of the lumbar spine was performed. FINDINGS: The spine is visualized from the R26-H6-A9 levels on the sagittal sequences, assuming a [...] narrowing. At the L5-S1 level, there is tikn-of-mbglgjzx diffuse disc bulging and moderate hypertrophic facet changes, which results in moderate to marked neural foraminal narrowing. Procedure Note CONVERSION, GENERIC - 11/13/2022 PERFORMED AT [facility] LOCATION:[facility] CLINICAL HISTORY: Low back pain extending into the right lower extremity. COMPARISON: 05/01/2022 TECHNIQUE: Multiplanar MR imaging of the lumbar spine was performed. FINDINGS: The spine is visualized from the P82-I6-N1 levels on the sagittal sequences, assuming a [...] narrowing. At the L5-S1 level, there is qgkl-ta-jyviurim diffuse disc bulging and moderate hypertrophic facet changes, which results in moderate to marked neural foraminal narrowing. 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 Report reported and signed by James Vizcaino on 10/19/2022 1406 CONVERSION, GENERIC - 11/14/2022 PERFORMED AT [facility] LOCATION:[place] [facility] 110 EXAMINATION: XR HIPS TRENT 3_4V [...] likely will be a Right L2/3 TFESI diagnostic.Trying to determine if focal operation can be done vs long construct. -If no relief with injection or nothing to do with the hips, consider CT SPECT (Discussed CT Spect to better assess asymmetric lower lumbar/sacral spine, which could be attributing to pt's mechanicalback pain. CT SPECT to assess profuse arthritic [...] TIME: 8:55 AM PAGER: documented in this encounterSelect Medical Specialty [facility]08-18-2023 NoteHNO ID: [id number] Author: Laila Lewis PA-C Service: ? Author Type: Physician Transmission Superintendent Type: Progress Notes Filed: 02/12/2023 12:58 PM Note Text: Per Triage: Lawson Vela is a 68 year old male that requests evaluation of lumbar spine. Per review, they have symptoms of LBP into left leg pain. Positive for numbness, difficulty walking and weakness. CMT: PT Hydrocodone laboratory animal care veterinarian Studies (Reports unless indicated) MRI Lumbar: Narrative PERFORMED AT [facility] LOCATION:[facility] CLINICAL HISTORY: Low back pain extending into the right lower extremity. COMPARISON: 05/01/2022 TECHNIQUE: Multiplanar MR imaging of the lumbar spine was performed. FINDINGS: The spine is visualized from the J22-O6-C3 levels on the sagittal sequences, assuming a [...] narrowing. At the L5-S1 level, there is cbsq-tz-tarxpdrj diffuse disc bulging and moderate hypertrophic facet changes, which results in moderate to marked neural foraminal narrowing. Procedure Note CONVERSION, GENERIC - 11/13/2022 PERFORMED AT [facility] LOCATION:[facility] CLINICAL HISTORY: Low back pain extending into the right lower extremity. COMPARISON: 05/01/2022 TECHNIQUE: Multiplanar MR imaging of the lumbar spine was performed. FINDINGS: The spine is visualized from the J65-U3-Q0 levels on the sagittal sequences, assuming a [...] narrowing. At the L5-S1 level, there is kcjw-ox-gauyrzbj diffuse disc bulging and moderate hypertrophic facet changes, which results in moderate to marked neural foraminal narrowing. 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 Report reported and signed by James Vizcaino on 10/19/2022 1402 Disposition: Please schedule with Laila.[facility]08-18-2023 History of Present illness Narrative* Laila Lewis PA-C - 02/12/2023 12:54 PM EDT Per Triage: Lawson Vela is a 68 year old male that requests evaluation of lumbar spine. Per review, they have symptoms of LBP into left leg pain. Positive for numbness, difficulty walking and weakness. CMT: PT Hydrocodone laboratory animal care veterinarian Studies (Reports unless indicated) MRI Lumbar: Narrative PERFORMED AT [facility] LOCATION:[facility] CLINICAL HISTORY: Low back pain extending into the right lower extremity. COMPARISON: 05/01/2022 TECHNIQUE: Multiplanar MR imaging of the lumbar spine was performed. FINDINGS: The spine is visualized from the U03-Q8-M4 levels on the sagittal sequences, assuming a [...] narrowing. At the L5-S1 level, there is anbk-ja-qrklxaur diffuse disc bulging and moderate hypertrophic facet changes, which results in moderate to marked neural foraminal narrowing. Procedure Note CONVERSION, GENERIC - 11/13/2022 PERFORMED AT [facility] LOCATION:[facility] CLINICAL HISTORY: Low back pain extending into the right lower extremity. COMPARISON: 05/01/2022 TECHNIQUE: Multiplanar MR imaging of the lumbar spine was performed. FINDINGS: The spine is visualized from the O90-K4-H4 levels on the sagittal sequences, assuming a [...] narrowing. At the L5-S1 level, there is plcs-gj-tkqpnkgc diffuse disc bulging and moderate hypertrophic facet changes, which results in moderate to marked neural foraminal narrowing. 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 Report reported and signed by James Vizcaino on 10/19/2022 1951 Disposition: Please schedule with Laila. * Mookie Lee P - 01/28/2023 10:41 AM EDT Patient name: Lawson Vela Are you being referred by a Center for Sp[facility] Health Provider or Pain Management Provider at [facility]? No If answer is YES please [...] the facility where the MRI/CT/myelogram was completed: [facility] Imaging Address: [address] [place] [address] [facility] Address: [address] [id number] MRI/CT/myelogram viewable in Epic: No If not, please provide [phone] to fax in imaging reports for review. Also, please inform patient to hand carry imaging disc to appointment. XR (spine) within 12 months: No If YES, please ask for the name/address of the facility where the XR was completed: Dr. Rogel's patients: Have you had previous EMG/Nerve Conduction Study, Ultrasound, or MRI for thesesame symptoms? If YES, please ask for the [...] physical therapy was completed PT Injections [facility] Address: [address] [place] [address] Have you tried any other kinds of [...] where the surgery was completed: Additional Comments [phone] (Home Phone) documented in this encounterSelect Medical Specialty [facility]08-03-2023 NoteHNO ID: [id number] Author: Mookie Lee Service: ? Author Type: ? Type: Progress Notes Filed: 02/12/2023 12:58 PM Note Text: Patient name: Lawson Vela Are you being referred by a [place] for Spine Health Provider or Pain Management Provider at [facility]? No If answer is YES please [...] the facility where the MRI/CT/myelogram was completed: [facility] Imaging Address: [address] [place] [address] [facility] Address: [address] [id number] MRI/CT/myelogram viewable in Epic: No If not, please provide [phone] to fax in imaging reports for review. [...] physical therapy was completed PT Injections [facility] Address: [facility] [place] [address] Have you tried any other kinds of [...] where the surgery was completed: Additional Comments [phone] (Home Phone)[facility]06-22-2023 Evaluation note* Encounter Date Diagnosis Assessment Notes Treatment Notes Treatment Clinical Notes Nov, Lumbar radiculopathy (ICD-10 - M 54.16) I reviewed imaging with Dr Jenkins and independently reviewed the MRI of lumbar spine face to face with patient that shows L4-L5, L5-S1 disc moderate foramen stenosis with moderate disc hernation. WIllorder Lumbar 6 v. Will Continue with pharmacological management as prescribed we will add lidocainepatches and a prednisone taper. Advised not to take any uhlu-qdz-eitgtkf ibuprofen while taking prednisone. OARRS reviewed . Will get FRANSISCO from pain managment and physical therapy. Will follow-up in 4weeks with Dr. Anand. Medical decision making shows [...] negative findings were considered in medical decision-making. Nov,Right leg pain (ICD-10 - M79.604) Nov,epression screening (ICD-10 - Z13.31)PHQ reviewed score 0 negative screening Nov,Encounter for screening for tobacco use (ICD-10 - Z01.89)Screening reviewed quit 1976 Nov,MI 38.0-38.9,adult (ICD-10 - Z68.38)Education completed 1lb is 4-6 pounds of pressure on the spine, education on diet, decrease sugar intake. Utel Other 05-16-2023 NoteCONSULTATION CONSULTATION DATE: 11/10/2022 TO: [...] our patients to inform us about any kpnq-ykz-pmpsxfi medications or herbal remedies/nutritional supplements/alternative remedies. 2. [...] treatment options with their primary care provider.[facility] HospitalBgdulppi28-23-0467 Note CONSULTATION CONSULTATION DATE: 10/08/2022 TO: Javad [...] our patients to inform us about any xnqp-egp-zuklnar medications or herbal remedies/nutritional supplements/alternative remedies. 2. [...] treatment options with their primary care provider.[facility] [id number] Note CONSULTATION CONSULTATION DATE: 09/10/2022 HISTORY: This [...] a tightness in that region. Medications include [place] 5/325 daily, tizanidine 4 mg q.h.s., Mobic [...] in three months' time unless otherwise indicated.[facility] [id number] NoteCONSULTATION PROCEDURE DATE: 09/10/2022 PREOPERATIVE DIAGNOSIS: Bilateral [...] pattern, and patient tolerated the procedure well.[facility] [id number] Note CONSULTATION CONSULTATION DATE: 07/23/2022 HISTORY OF [...] current medications include Mobic 50 mg daily, [place] 5/325 per his PCP daily p.r.n. and [...] up in the office after the procedure.[facility] HospitalIpjteeyn84-09-5523 NoteCONSULTATION CONSULTATION DATE: 06/25/2022 HISTORY OF PRESENT [...] with a vitamin regimen and he takes [place] 5/325 daily p.r.n., and Mobic 15 mg [...] following his procedure here in the office.[facility] [id number] Hospital Discharge instructions Patient Education 06/01/2022 08:22:09 [...] urethra. Follow these instructions at home: Take xuxv-gyi-puyqqdu and prescription medicines only as told by [...] 06/14/2006 Document Revised: 05/09/2019 Document Reviewed: 07/19/2017 britebill Patient Education ComplyMD. Follow Up Care 02/16/2022 11:28:21 With:PAMELA BAER, Mac Stephenson, URL Address: [facility] [address] , [place] [address]- When: Unknown [facility] 11-22-2022 NoteCONSULTATION CONSULTATION DATE: 05/19/2022 CHIEF [...] The patient currently takes Mobic 15 mg, Pittsburgh 5/325 on a p.r.n. basis as prescribed [...] had been performed. CC: Javad Donato M.D.[facility] [id number] NoteCONSULTATION CONSULTATION DATE: 04/28/2022 CHIEF COMPLAINT: Left [...] patient takes two Aleve. He also takes Pittsburgh 5/[address] Donato has prescribed for [...] would like to proceed. CC: Javad Donato M.D.[facility]08-22-2022 Hospital Discharge instructions Patient Education 02/16/2022 11:24:07 [...] urethra. Follow these instructions at home: Take bjnj-hfw-vmyqssi and prescription medicines only as told by [...] 06/14/2006 Document Revised: 05/09/2019 Document Reviewed: 07/19/2017 britebill Patient Education 2020 [email or web address]. 02/16/2022 11:24:04 Calorie Counting for Weight Loss [...] 06/14/2006 Document Revised: 03/03/2019 Document Reviewed: 05/14/2017 britebill Patient Education 2020 [employer] Follow Up Care 08/18/2021 12:09:57 With:PAMELA BAER, Mac Stephenson, URL Address: [address] [place] [phone]- Business (1) When:Within 6 Month(s) [facility] evaluation + Plan note Future Appointments Appointment Date:06/01/2022 10:45:00 AM Scheduled Provider:[facility] evaluation + Plan note Future Appointments Appointment Date:11/30/2022 08:45:00 AM Scheduled Provider:Mac [facility] Office Visit [facility] evaluation + Plan note Future Appointments Appointment Date:02/05/2025 10:45:00 AM Scheduled Provider:Mac [facility]ANT[facility]AGO [facility] Office Visit [facility] evaluation + Plan note Future Appointments Appointment Date:02/08/2026 08:15:00 AM Scheduled Provider:Mac SANTIAGO MD Location:[place] [facility] Appointment Type:URO Office Visit [facility] evaluation noteNo assessment information available [facility] Work Phone: evaluation noteNort [employer] Other evaluation note* Diagnosis Spinal stenosis, lumbar region with neurogenic claudication- Primary documented in this encounter [facility] Diagnosis Spinal stenosis, lumbar region with neurogenic claudication- Primary Bilateral hip joint arthritis [facility] Diagnosis Right hip pain- Primary Pain in joint, pelvic region and thigh Status post total hip replacement, right documented in this encounter [facility] HealthcareEvaluation note* Diagnosis Right hip pain- Primary Pain in joint, pelvic region and thigh Status post total hip replacement, right Arthritis of right hip documented in this encounter [facility] HealthcareEvaluation note* Diagnosis Right hip pain- Primary Pain in joint, pelvic region and thigh Status post total hip replacement, right Arthritis of right hip Primary osteoarthritis of right hip Status post right hip replacement documented in this encounter [facility] HealthcareEvaluation note* Diagnosis Primary osteoarthritis of right hip Status post right hip replacement Right hip pain- Primary Pain in joint, pelvic region and thigh Status post total hip replacement, right Arthritis of right hip documented in this encounter [facility] HealthcareEvaluation note* Diagnosis Primary osteoarthritis of [...] index (BMI) of 37.0 to 37.9 in adult,unspecified obesity type (CMS/HCC) documented in this encounter [facility] HealthcareEvaluation note* Diagnosis Post-operative pain- Primary Other acute postoperative pain documented in this encounter [facility] HealthcareEvaluation note* Diagnosis Post-operative pain Other acute postoperative pain documented in this encounter [facility] HealthcareEvaluation note* Diagnosis S/P total left hip arthroplasty- Primary documented in this encounter [facility] HealthcareEvaluation note* Diagnosis S/P total left hip arthroplasty- Primary documented in this encounter [facility] HealthcareEvaluation note* Diagnosis S/P total left hip arthroplasty- Primary Left hip pain Pain in joint, pelvic region and thigh documented in this encounter [facility] HealthcareEvaluation note* Diagnosis Acute pharyngitis, unspecified etiology- Primary documented in this encounter [facility] HealthcareEvaluation note* Diagnosis Routine general medical [...] index (BMI) of 37.0 to 37.9 in adult,unspecified obesity type (CMS/HCC) Screening for prostate cancer Special screening for malignant neoplasm of prostate Flu vaccine need Herniated lumbar disc without myelopathy Claudication (CMS/HCC) Unspecified peripheral vascular disease documented in this encounter [facility] HealthcareEvaluation note* Diagnosis Left hip pain- [...] right hip- Primary [facility] Preop examination- Primary Unspecified pre-operative examination Hypertension, unspecified type Preop examination Unspecified pre-operative examination Hypertension, unspecified type [facility] Diagnosis Herniated lumbar disc without myelopathy IGT (impaired glucose tolerance) Impaired glucose tolerance test Class 2 severe obesity with serious comorbidity and body mass index (BMI) of 37.0 to 37.9 in adult,unspecified obesity type (CMS/[facility]) Morbid (severe) obesity due to excess calories [...] this encounter [facility] HealthcareEvaluation note* Diagnosis Herniated lumbar disc [...] index (BMI) of38.0 to 38.9 in adult ([facility]) Umbilical hernia without obstruction and without gangrene Status post right hip replacement documented in this encounter [facility] general Narrative - Reported* Type Description Date Medical History appendicitis Medical HistoryArthritisMedical HistoryHypertensionMedical HistoryobesityMedical HistorypneumoniaMedical Historyprostate cancerSurgical Historyappendectomy Surgical Historycarpal tunnel [id number] Historysee surg Hx [facility] [employer] Other History general Narrative - [facility] Other Hospital course Narrative No data available for this section [facility] progress note No data available for this section [facility] reason for referral (narrative)* Diagnostic Procedure Only (Routine) - Pending ReviewSpecialtyDiagnoses / ProceduresReferred By ContactReferred To ContactXR IMAGING Diagnoses Bilateral hip joint arthritis Procedures XR HIP BILATERAL 5V PEL/AP/LAT EACH HIP RADEX HIPS BILATERAL WITH PELVIS MINIMUM 5 VIEWS Laila Lewis PA-C [address] [place] [address] Xr Imaging [place] [address] Referral IDStatusReasonStleechburg DateExpiration DateVisits RequestedVisits [id number] Review Auto-Generated Referral / * Consult, Test, Treat (Routine) - Pending ReviewSpecialtyDiagnoses / Procedures Referred By ContactReferred To ContactOrthopedics Diagnoses Bilateral hip joint arthritis Procedures CONSULT TO ORTHOPAEDICS OFFICE/OUTPATIENT [facility] 60-74 MINUTES Laila Lewis PA-C [address] [place] [address] Referral IDStatusReasonStart DateExpiration DateVisits RequestedVisits [id number] Review PCP [facility]ed Ref[facility] Narrativeself referral- low back pain L4-L5 Utel Other reason for visit Narrative* Rehabilitation - Outpatient (Routine) - AuthorizedSpecialtyDiagnoses / ProceduresReferred By ContactReferred To ContactPhysical Therapy Diagnoses S/P total left hip arthroplasty Procedures NE OFFICE/OUTPATIENT [facility] Jose Hernández, PLAYER MANAGER [address] [place] [address] Phone: tel: fax: Nagi Plata, PT [address] [place] [address] Phone: tel: fax: Referral IDStatusReasonStart DateExpiration DateVisits RequestedVisits [id number] Consult and Treat [facility] HealthcareReason for visit Narrative* Rehabilitation - Outpatient (Routine) - AuthorizedSpecialtyDiagnoses / ProceduresReferred By ContactReferred To ContactPhysical Therapy Diagnoses S/P total left hip arthroplasty Procedures NE OFFICE/OUTPATIENT [facility] 60 MINUTES Jose Hernández, YISEL [address] [place] [address] Phone: tel: fax: Nagi Plata, PT [address] [place] [address] Phone: tel: fax: Referral IDStatusReasonStart DateExpiration DateVisits RequestedVisits [id number] Consult and Treat [facility] HealthcareReason for visit Narrative* Rehabilitation - Outpatient (Routine) - AuthorizedSpecialtyDiagnoses / ProceduresReferred By ContactReferred To ContactPhysical Therapy Diagnoses S/P total left hip arthroplasty Procedures NE OFFICE/OUTPATIENT [facility] 60 MINUTES Jose Hernández, PLAYER MANAGER [address] [place] [address] Phone: tel: fax: Nagi Plata, PT [address] [place] [address] Phone: tel: fax: Referral IDStatusReasonStart DateExpiration DateVisits RequestedVisits [id number] Consult and Treat [facility] Summary Purpose Family History No [...] Time Advance Directives No December 17 2:40pm Code StatusDate ActivatedDate InactivatedCommentsFull Code07/06/2023 5:59 PM 07/07/2023 4:47 PMDate ActivatedDate InactivatedComments07/06/2023 5:59 PM07/07/2023 4:47 PM Chief Complaint and Reason for Visit Chief Complaint M54.16 Reason for Referral SpecialtyDiagnoses / ProceduresReferred By ContactReferred To Contact Diagnoses Preop examination Hypertension, unspecified type Procedures ECG 12 lead Charissa Blair, DO [address] [facility] [address] [place] [address] Referral IDStatusReasonStart DateExpiration DateVisits RequestedVisits [id number] / ProceduresReferred By ContactReferred To Contact Procedures Remove dressing (specify when) Nagi Miner, LOAN COORDINATOR-HIDE INSPECTOR AND SORTER [address], [facility] [address] [place] [address] Referral IDStatusReasonStart DateExpiration DateVisits RequestedVisits [id number] / ProceduresReferred By ContactReferred To Contact Procedures Adult Nagi Cruz, LOAN COORDINATOR-HIDE INSPECTOR AND SORTER [address], [place] [address] [place] [address] Referral IDStatusReasonStart DateExpiration DateVisits RequestedVisits [id number] Review/ Additional Source Comments Care Team (unrecognized sect ion and content) Team Status: Active Member Role Status Dates Javad Donato II MD Primary Care Provider Active Team Status: Inactive Member Role Status Dates Javad Donato II MD Primary Care Provider Active Erica Xiong , PLAYER MANAGER-CAttending ProviderActiveTeam MemberRelationshipSpecialty Start DateEnd Date Javad Donato MD [address] [facility] [address] [place] [address] PCP - ACO Reach11/19/22 Javad Donato MD [address] [facility] [address] [place] [address] PCP - GeneralInternal Medicine01/05/23Team MemberRelationshipSpecialtyStart Date End Date Javad Donato MD [address] [facility] [address] [place] [address] PCP - ACO Reach11/19/22 Javad Donato MD [address] [facility] [address] [place] [address] PCP - GeneralInternal Medicine01/05/23Team MemberRelationshipSpecialtyStart Date End Date Javad Donato MD [address] [facility] [address] [place] [address] PCP - ACO [facility]11/19/22 Javad Donato MD [address] [facility] [address] [place] [address] PCP - GeneralInternal [facility]01/05/23Team MemberRelationshipSpecialtyStart Date End Date Javad Donato MD [address] [facility] [address] [place] [address] PCP - ACO [facility]11/19/22 Javad Donato MD [address] [facility] [address] [place] [address] [facility] - [facility]01/05/23Team MemberRelationshipSpecialtyStart Date End Date Javad Donato MD [address] [facility] [address] [place] [address] PCP - ACO [facility]11/19/22 Javad Donato MD [address] [facility] [address] [place] [address] PCP - [facility] Hospitalnal [facility]01/05/23Team MemberRelationshipSpecialtyStart Date End Date Javad Donato MD [address] [facility] [address] [place] [address] PCP - ACO [facility]11/19/22 Javad Donato MD [address] [facility] [address] [place] [address] PCP - [facility]01/05/23Team MemberRelationshipSpecialtyStart Date End Date Javad Donato MD [address] [facility] [address] [place] [address] PCP - ACO [facility]11/19/22 Javad Donato MD [address] [facility] [address] [place] [address] PCP - GeneralInternal Medicine01/05/23Team MemberRelationshipSpecialtyStart Date End Date Javad Donato MD [address] [facility] [address] [place] [address] PCP - ACO [facility]11/19/22 Javad Donato MD [address] [facility] [address] [place] [address] PCP - GeneralInternal [facility]01/05/23Team MemberRelationshipSpecialtyStart Date End Date Javad Donato MD [address] [facility] [address] [place] [address] PCP - ACO [facility]11/19/22 Javad Donato MD [address] [facility] [address] [place] [address] PCP - GeneralInternal [facility]01/05/23Team MemberRelationshipSpecialtyStart Date End Date Javad Donato MD [address] [facility] [address] [place] [address] PCP - ACO [facility]11/19/22 Javad Donato MD [address] [facility] [address] [place] [address] PCP - GeneralInternal [facility]01/05/23Team MemberRelationshipSpecialtyStart Date End Date Javad Donato MD [address] [facility] [address] [place] [address] PCP - ACO Reach11/19/22 Javad Donato MD [address] [facility] [address] [place] [address] PCP - GeneralInternal Medicine01/05/23Team MemberRelationshipSpecialtyStart Date End Date Javad Donato MD [address] [facility] [address] [place] [address] PCP - ACO Reach11/19/22 Javad Donato MD [address] [facility] [address] [place] [address] PCP - GeneralInternal Medicine01/05/23Team MemberRelationshipSpecialtyStart Date End Date Javad Donato MD [address] [place] [address] [place] [address] PCP - ACO Reach11/19/22 Javad Donato MD [address] [facility] [address] [place] [address] PCP - GeneralInternal Medicine01/05/23Team MemberRelationshipSpecialtyStart Date End Date Javad Donato MD [address] [facility] [address] [place] [address] PCP - ACO Reach11/19/22 Javad Donato MD [address] [facility] [address] [place] [address] PCP - GeneralInternal Medicine01/05/23WedRyder, ELLIE Martinez [address] [place] [address] Licensed Practical NurseFamely Inzkkhrp90/11/24Team MemberRelationshipSpecialty Start DateEnd Date Javad Donato MD [address] [facility] [address] [place] [address] PCP - [facility]11/19/22 Javad Donato MD [address] [facility] [address] [place] [address] PCP - GeneralInternal Medicine01/05/23Wednesday, Michelle, UROLOGY SURGEON [address] [place] [address] Licensed P[facility] NurseCl[facility]05/08/24Team MemberRelationshipSpecialty Start DateEnd Date Javad Donato MD [address] [place] [address] [place] [address] [facility] - [facility]11/19/22 Javad Donato MD [address] [place] [address] [place] [address] PCP - GeneralC[facility] Rehabilitation [facility] Hospitalnal Medicine01/05/23Wednesday, Michelle, UROLOGY SURGEON [address] [place] [address] Licensed Practical NurseGuthrie County Hospitally Ymcmxqfw79/11/2411Te MemberRelationship SpecialtyStart DateEnd Date Javad Donato MD [address] [facility] [address] [place] [address] [facility] - [facility]11/19/22 Javad Donato MD [address] [place] [address] [place] [address] PCP - GeneralInternal Medicine01/05/23Wednesday, ELLIE Martinez [address] [place] [address] Licensed Practical NurseW[facility] Dyjmpugc45/11/2411Team MemberRelationship SpecialtyStart DateEnd Date Javad Donato MD [address] [place] [address] [place] [address] PCP - ACO [facility]11/19/22 Javad Donato MD [address] [place] [address] [place] [address] PCP - GeneralC[facility] Hospitalnal Medicine01/05/23Wednesday, ELLIE Martinez [address] [place] [address] Licensed Practical NurseClinch Memorial Hospital05/08/2411Te MemberRelationship SpecialtyStart DateEnd Date Javad Donato MD [address] [place] [address] [place] [address] [facility] - [facility]11/19/22 Javad Donato MD [address] [facility] [address] [place] [address] PCP - GeneralC[facility] Hospitalnal [facility]01/05/23Te MemberRelationshipSpecialtyStart Date End Date Javad Donato MD [address] [facility] [address] [place] [address] PCP - [facility]11/19/22 Javad Donato MD [address] [place] [address] [place] [address] PCP - GeneralC[facility] Hospitalnal Medicine01/05/23Te MemberRelationshipSpecialtyStart Date End Date Javad Donato MD [address] [place] [address] [place] [address] PCP - [facility]11/19/22 Javad Donato MD [address] [facility] [address] [place] [address] PCP - [facility]01/05/23Te MemberRelationshipSpecialtyStart Date End Date Javad Donato MD [address] [place] [address] [place] [address] PCP - [facility]11/19/22 Javad Donato MD [address] [place] [address] [place] [address] PCP - [facility]01/05/23Te MemberRelationshipSpecialtyStart Date End Date Javad Donato MD [address] [facility] [address] [place] [address] [facility] - [facility]11/19/22 Javad Doanto MD [address] [facility] [address] [place] [address] PCP - [facility]01/05/23Te MemberRelationshipSpecialtyStart Date End Date Javad Donato MD [address] [facility] [address] [place] [address] PCP - [facility]11/19/22 Javad Donato MD [address] [facility] [address] [place] [address] [facility] [place]01/05/23Te MemberRelationshipSpecialtyStart Date End Date Javad Donato MD [address] [facility] [address] [place] [address] [facility] - [facility]11/19/22 Javad Donato MD [address] [place] [address] [place] [address] [facility] - [facility]01/05/23Te MemberRelationshipSpecialtyStart Date End Date Javad Donato MD [address] [facility] [address] [place] [address] [facility]11/19/22 Javad Donato MD [address] [facility] [address] [place] [address] [facility] - [facility]01/05/23Te MemberRelationshipSpecialtyStart Date End Date Javad Donato MD [address] [facility] [address] [place] [address] [facility]11/19/22 Javad Donato MD [address] [facility] [address] [place] [address] [facility]01/05/23Te MemberRelationshipSpecialtyStart Date End Date Javad Donato MD [address] [facility] [address] [place] [address] [facility]11/19/22 Javad Donato MD [address] [facility] [address] [place] [address] [facility]01/05/23Team MemberRelationshipSpecialtyStart Date End Date Javad Donato MD [address] [facility] [address] [place] [address] PCP - O [facility]11/19/22 Javad Donato MD [address] [facility] [address] [place] [address] PCP - GeneralInternal Medicine01/05/23Team MemberRelationshipSpecialtyStart Date End Date Javad Donato MD [address] [place] [address] [place] [address] PCP - [facility] Hospitalnal Pqfnuese07/19/17Team MemberRelationshipSpecialtyStart Date End Date Javad Donato MD [address], [place] [address] [place] [address] PCP - GeneralC[facility] ([facility] Hospitalnal Vclgtsns14/19/17Team MemberRelationshipSpecialtyStart Date End Date Javad Donato MD [address] [place] [address] [place] [address] PCP - [facility]11/19/22 Javad Donato MD [address] [place] [address] [place] [address] PCP - [facility] Hospitalnal Medicine01/05/23Team MemberRelationshipSpecialtyStart Date End Date Javad Donato MD [address] [place] [address] [place] [address] PCP - O [facility]11/19/22 Jaavd Donato MD [address] [place] [address] [place] [address] PCP - GeneralInternal Medicine01/05/23Team MemberRelationshipSpecialtyStart Date End Date Javad Donato MD [address] [facility] [address] [place] [address] PCP - [facility] Reach11/19/22 Javad Donato MD [address] [facility] [address] [place] [address] PCP - GeneralInternal Medicine01/05/23 (unrecognized sect ion and content) No Status Records FoundNo Status Records FoundNo Status Records FoundNo Status Records FoundNo Status Records FoundNo Status Records FoundNo Status Records FoundNo Status Records FoundNo Status Records FoundNo Status Records Found INFORMATION SOURCE (unrecogn ized section and content) DATE CREATED AUTHOR 05/02/2022 [facility] DATE CREATED AUTHOR AUTHOR'S ORGANIZ ATION 12/04/2022 [facility] DATE CREATED AUTHOR AUTHOR'S ORGANIZ ATION 01/13/2023 [facility] DATE CREATED AUTHOR AUTHOR'S ORGANIZ ATION 02/13/2023 [facility] DATE CREATED AUTHOR AUTHOR'S ORGANIZ ATION 04/17/2023 [facility] DATE CREATED AUTHOR AUTHOR'S ORGANIZ ATION 05/05/2024 [facility] DATE CREATED AUTHOR AUTHOR'S ORGANIZ ATION 06/18/2024 [facility] DATE CREATED AUTHOR AUTHOR'S ORGANIZ ATION 11/30/2024 [facility] DATE CREATED AUTHOR AUTHOR'S ORGANIZ ATION 02/06/2025 [facility] DATE CREATED AUTHOR AUTHOR'S ORGANIZ ATION 04/14/2025 [facility] Goals (unrecognized section and content) [...] drug abuse patient.[facility]ronIn the event this information is protected by the Federal Confidentiality of Alcohol and Drug Abuse Patient Records regulations: The Federal rules restrict any use of the information to criminally investigate or prosecute any alcohol or drug abuse patient.[facility] Reason for Visit (unrecogniz ed section and content) ReasonCommentsNew PatientSpecialtyDiagnoses / ProceduresReferred By Contact Referred To ContactPhysical Therapy Diagnoses Presence of artificial hip joint, right Procedures NE OFFICE/OUTPATIENT NEW [facility] 60 MINUTES Charissa Blair, DO [address] [facility] [address] [place] [address] [address] [place] [address] Referral IDStatusReasonStart DateExpiration DateVisits RequestedVisits [id number] Specialty Services Required [id number] Date CommentsMed [id number] clearancePt sched 05/03/24 for left hip replacement with Dr Blair at [facility] completedReasonOnset Date BypdpbuwTtbocbtrp22/07/2024ReasonCommentsPainReasonCommentsURIReasonComments Medicare Annual Wellness Visit SubsequentMed RefillHydrocodone--pietro rodas- for back pain pt is going to do some PT but states if that does not help with his back he will want to address it in the futurefeet are coldPt states he has had ongoing issues feeling like his feet/toes are really cold to touch, he feels like there is the sensation of socks being bunched up under his feet Specialty Diagnoses / ProceduresReferred By ContactReferred To Contact Diagnoses Primary osteoarthritis of right hip right hip degenerative joint disease Procedures NE TOTAL HIP ARTHROPLASTY REPLACEMENT TOTAL JOINT HIP Charissa Blair, DO [address] [facility] [address] [place] [address] Referral IDStatusReasonStart DateExpiration DateVisits RequestedVisits [id number] 05/2024[facility] Refill Hydrocodone--kroger David PainLeft shoulder painReasonOnset Date CommentsMed Shjgup4911/27/2024ReasonCommentsTinemilton Quintero had it off/on for 15 years, bilateral feet, he uses clotrimazole and betamethasone cream and ithelps. Med RefillAmoxicillin (has dental procedure in December) and has had hip replacement in past, clotrimazole-betamethazoneBack PainHe is currently on Hydrocodone as needed and working well for him. Scheduled Active and Recently Administ ered Medications (unrecognized section and content) Medication Order//03/2024 ceFAZolin (ANCEF) IVPB 1000 mg/50 mL in iso-osmotic dextrose (20 mg/mL premix) (COMPLETED) 1,000 mg, intravenous, at 100 mL/hr, Administer over 30 Minutes, Once, On Wed07/07/23 at 0645, For 1 dose, Pre-op, Look-alike/sound-alike medication - verify indication for use., Indication: Surgicalprophylaxis * 0730 (Given - Provider: YOBANY Kovacs) * 0745 (Stop Bag - Provider: YOBANY Kovacs) ceFAZolin (ANCEF) IVPB 2000 mg/50 mL in iso-osmotic dextrose (40 mg/mL premix) (COMPLETED) 2,000 mg, intravenous, at 100 mL/hr, Administer over 30 Minutes, Once, On Wed07/07/23 at 0645, For 1 dose, Pre-op, Look-alike/sound-alike medication - verify indication for use., Indication: Surgicalprophylaxis * 0740 (Given - Provider: YOBANY Kovacs) * 0810 (Stop Bag - Provider: YOBANY Kovacs) oxyCODONE (ROXICODONE) immediate release tablet 5 mg (COMPLETED)(Linked Group 1) 5 mg, oral, Once, On Wed07/07/23 at 1045, For 1 dose, PACU (only), Look-alike/sound-alike medication - verify indication for use. Immediate release. * 1045 (Canceled Entry - Provider: Vandana Nur RN) * 1246 (Given - Provider: Janee Viera RN - Comment: pt requested to take medication with snack.) tranexamic acid (LYSTEDA) tablet 1,950 mg (COMPLETED) 1,950 mg, oral, Once, On Wed07/07/23 at 0645, For 1 dose, Pre-op * 0713 (Given - Provider: Tianna Holland RN) tranexamic acid (LYSTEDA) tablet 1,950 mg (COMPLETED) 1,950 mg, oral, Once, On Wed07/07/23 at 1200, For 1 dose * 1246 (Given - Provider: Janee Viera, GOLDIE) Medication Order lactated ringers infusion (CANCELED) 50 mL/hr, intravenous, Continuous, Starting on Wed07/07/23 at 0630, Pre-op, If fluid restriction isnot indicated, infuse at a rate up to 5 mL/kg/hr not to exceed the total replacement volume (2 ml/kg/hr) from the time NPO status was initiated. * 0712 (New Bag - Provider: Tianna Holland RN) * 0740 (Continued by Anesthesia - Provider: YOBANY Kovacs) * 0743 (Paused - Provider: YOBANY Kovacs - Comment: Switch to gravity) * 0744 (Restarted - Provider: Devin Donovan APRN-ASSOC[employer]) * 0958 (Anesthesia Volume Adjustment - Provider: Devin Donovan APRN-ASSOCIATE [employer]) Medication Order//03/2024 bupivacaine PF (MARCAINE) 0.5 % (5 mg/mL) injection (CANCELED) As needed, Starting on Wed07/07/23 at 0959, Intra-op * 0959 (Given - Provider: Charissa Blair DO) fentaNYL (SUBLIMAZE) injection 50 [...] dose, PACU (only), Administer over 2-5 minutes. Order Group 1: oxyCODONE (ROXICODONE) immediate release [...] BE BASED ON THE PRIMARY CLINICAL RECORDS. [employer] provides no warranty or guarantee of the accuracy or completeness of information in this document.
--- NOTE | 2025-04-18 08:43 | PM.CN ---
Consult Note: HPI Data of Consult Patient: known to practice within the last 3 years Consult date: 04/18/25 Requesting Physician: Kath Steiner NP Primary Care Provider: JOHNATHAN LÓPEZ Consult Narrative Reason for consult: low back and left hip pain Narrative: Lawson Vela a pleasant 70 year old male presents for evaluation and management of low back and left SIJ pain. Pt has longstanding low back and left hip pain unresponsive to > 6 weeks of PT/HEP/aquatherapy, heat, ice, tylenol, nsaids. pt currently utilizing tizanidine, meloxicam, and norco prn with benefit without side effects. Pain today 2/10 increasing to 4/10 with standing, walking, lifting, bending, sleep. recently underwent left SIJ injection with >75% improvement ongoing. Pt pleased with response. cc:: CC: Kath Steiner NP Review of Systems ROS Musculoskeletal Reports: back pain and joint pain PFSH PFS Medical History (Updated 10/25/24 @ 07:58 by Kath Steiner NP) Neuritis ?M79.2 - Neuralgia and neuritis, unspecified (ICD-10) Left carpal tunnel syndrome ?G56.02 - Carpal tunnel syndrome, left upper limb (ICD-10) Osteoarthritis ?M19.90 - Unspecified osteoarthritis, unspecified site (ICD-10) Low back pain ?M54.50 - Low back pain, unspecified (ICD-10) Obesity ?E66.9 - Obesity, unspecified (ICD-10) Enlarged prostate ?N40.0 - Benign prostatic hyperplasia without lower urinary tract symptoms (ICD-10) Former smoker ?Z87.891 - Personal history of nicotine dependence (ICD-10) Hypertension ?I10 - Essential (primary) hypertension (ICD-10) Surgical History H/O carpal tunnel repair ?Z98.890 - Other specified postprocedural states (ICD-10) H/O total hip arthroplasty ?Z96.649 - Presence of unspecified artificial hip joint (ICD-10) Hx of appendectomy ?Z90.49 - Acquired absence of other specified parts of digestive tract (ICD-10) Social History Smoking status: Former smoker Meds Home Medications and Allergies Home Medications ?Medication ?Instructions ?Recorded ?Confirmed ?Type ascorbic acid (vitamin C) 500 mg 500 mg PO DAILY 12/10/22 02/19/25 History tablet (C-500) bee pollen 550 mg capsule mg PO .QD 12/10/22 History carvedilol 6.25 mg tablet 6.25 mg PO BID 12/10/22 02/19/25 History cholecalciferol (vitamin D3) 10 10 mcg PO DAILY 12/10/22 02/19/25 History mcg (400 unit) capsule (Vitamin D3) finasteride 5 mg tablet 5 mg PO .QD 12/10/22 02/19/25 History hydrocodone 5 mg-acetaminophen 325 1 tab PO QID PRN pain 12/10/22 02/19/25 History mg tablet mecobalamin (vitamin B12) 1,000 1,000 mcg PO DAILY 12/10/22 02/19/25 History mcg chewable tablet (B12 Active) meloxicam 15 mg tablet 15 mg PO .QD 12/10/22 02/19/25 History multivitamin 1 tab PO DAILY 12/10/22 02/19/25 History sildenafil 100 mg tablet (Viagra) 100 mg PO DAILY PRN sexual activity 12/10/22 02/19/25 History solifenacin 10 mg tablet 10 mg PO DAILY 12/10/22 02/19/25 History tamsulosin 0.4 mg capsule 0.4 mg PO Q24H 12/10/22 02/19/25 History tizanidine 4 mg capsule 4 mg PO .HS PRN muscle spasticity 12/10/22 02/19/25 History vitamin B complex (Complex B-100 1 tab PO DAILY 12/10/22 02/19/25 History tablet,extended release) zinc 50 mg tablet 50 mg PO DAILY 12/10/22 02/19/25 History Allergies Allergy/AdvReac Type Severity Reaction Status Date / Time No Known Drug Allergies Allergy Verified 02/19/25 08:24 Exam Constitutional Documenting provider has reviewed patient's vital signs: yes Common normals: no apparent distress, oriented x3, healthy appearing, alert and well nourished General appearance: cooperative HENTN Common normals: normocephalic, hearing grossly normal bilaterally and moist oral mucous membranes Head and scalp: normocephalic Eye Common normals: PERRL Pupil: PERRL Neck & C-Spine Common normals: full ROM General: normal visual inspection Chest Common normals: inspection of chest normal Respiratory Common normals: normal respiratory effort, no retractions and no use of accessory muscles Back & Pelvis Lumbar spine/lower back: straight leg raise negative bilaterally; ROM not limited, no pain with ROM and no lumbar spinal tenderness Sacroiliac joints: SI joints normal Other: left sij negative sayra(patricks), gaenslens, thigh thrust, compression test strength 5/5 in BLE and sensation intact BLE Neuro Common normals: oriented x3 Sensorium/orientation: alert Psych Common normals: mental status grossly normal, thought process normal, cooperative, affect normal, speech normal and activity/motor behavior normal Speech: normal speech Thought process: normal thought process Results Additional Findings Additional findings: If on a controlled substance or opioids, I have checked an [place] report on this patient and there are no aberrancies noted in the prescribing history.??If on a controlled substance or opioid a drug screen was completed and reviewed within the last year, and if there has not been a drug screen completed we ordered one today to monitor higher risk, state monitored pain medication use. As part of providing excellent, safe, comprehensive care, the following was completed at our patient's visit: 1. A medication reconciliation and review to ensure accurate knowledge of current/active medications, including asking our patients to inform us about any [id number] medications or herbal remedies/nutritional supplements/alternative remedies. 2. A review to specifically ensure our patients have had annual screening for screening for depression, screening for tobacco use, and screening for unhealthy alcohol use. For concerning screenings had a discussion with the patient, provided patient education, and recommended follow-up with primary care provider when appropriate. If patient noted with a risk of falling, they received education on strength, gait, and balance training to prevent future risk of falling. Portions of this note may have been carried over from the previous visit and updated as appropriate. Please note this office utilizes paper charting in addition to the electronic medical record. A list of current medications, vitals, and PMH is available there as the clinical staff outside of myself do not have access to [facility] charting during the clinic day operations. As part of providing quality comprehensive care the current medications, vitals, and PMH were reviewed in the paper chart. Assessment and Plan Assessment and Plan (1) Sacroiliitis: Assessment and Plan: The patient has had over 3 months of moderate to severe low back and left SIJ pain with functional impairment and inadequate response to conservative care including NSAIDS (unless there are contraindication such as concurrent blood thinners), multiple oral or topical pain medications, and home exercise program/physical therapy.? Patient has completed >6 weeks of guided home exercise program and/or formal physical therapy program without relief of their symptoms.?? The Oswestry Disability Index was completed, and the patient scored a 32%.? 04/09/25 left SIJ injection >50% improvement ongoing (2) Lumbar stenosis with neurogenic claudication: Assessment and Plan: 02-19-25 left L4-5 L5-S1 TFESI >80% improvement in NC for at least 3 months (3) Lumbar spondylosis: Plan defer repeat left L4-5 L5-S1 TFESI at this time, symptoms well controlled upcoming appointment with orthopedics to discuss chronic left knee pain continue HEP as tolerated, pt planning to start aquatherapy at the [facility] soon continue current medications f/u 3 months, sooner if needed
== END 2025-04-18 08:05 | disposition home or self-care (01) ==
LOC: PM 08:04
PROVIDERS: PCP Internal Medicine; Visit Provider Nurse Practitioner
DX: M46.1 Sacroiliitis, not elsewhere classified (principal); M48.062 Spinal stenosis, lumbar region with neurogenic claudication; M47.816 Spondylosis without myelopathy or radiculopathy, lumbar region
CPT/HCPCS: G0463